=== PATIENT | male | born 1935 | race Caucasian/White ===

== ENCOUNTER 2016-07-18 10:49 | Inpatient (IN) | payer MEDICARE, OTHER ==
[~2016-07-18] VITALS: Ht 152.4 cm; Wt 68.5 kg
[~2016-07-18 10:49] MED LIST: ALBU8.5H3 INH; APIX2.5T PO; CARV6.2579 PO; FER325 PO; FURO-109 PO; LISI2.5T59 PO; METF500T4 PO; NIT4 SL; OMEP40CA6 PO; POTA10TA18 PO; SUCR1TAB56 PO
--- NOTE | 2016-07-18 11:48 | ERA ---
ER Documentation Chief Complaint Date/Time DATE: 07/18/16 TIME: 11:48 Chief Complaint SOB AND BILATERAL LEG SWELLING X 3 DAYS HPI 80-year-old male with a history of ischemic heart myopathy, ejection fraction 25 % status post AICD, congestive heart failure, coronary artery disease status post CABG, diabetes mellitus type 2, hypertension, dyslipidemia, atrial fibrillation and anemia ambulatory to the ED complaining of one-week history of increasing shortness of breath, PND, orthopnea and exertional dyspnea. Increasing lower extremity swelling but no calf pain or redness. Denies chest pain or palpitations. No abdominal pain, nausea or vomiting. Denies URI symptoms or rhinorrhea. No headache or neck pain. Denies visual changes, focal weakness or numbness. No fevers or chills. ROS All systems reviewed and are negative except as per history of present illness. Medications Home Meds Reported Medications Aspirin (Low Dose Aspirin) 81 Mg Tablet.dr, 81 MG PO DAILY, #30 TAB 07/18/16 Amiodarone Hcl* (Amiodarone Hcl*) 200 Mg Tablet, 200 MG PO BID, #60 TAB 07/18/16 Carvedilol* (Carvedilol*) 12.5 Mg Tablet, 12.5 MG PO BID, #60 TAB 07/18/16 Apixaban* (Eliquis*) 5 Mg Tablet, 5 MG PO BID, TAB 07/18/16 Nitroglycerin* (Nitrostat*) 0.4 Mg Tab.subl, 0.4 MG SL DAILY Y for CHEST PAIN, BOTTLE 05/27/16 Sucralfate* (Carafate*) 1 Gm Tab, 1 GM PO QID, TAB 05/27/16 Lisinopril* (Lisinopril*) 2.5 Mg Tablet, 2.5 MG PO DAILY, #30 TAB 05/27/16 Omeprazole* (Omeprazole*) 40 Mg Capsule.dr, 40 MG PO QAM, #30 CAP 05/27/16 Furosemide* (Lasix*) 40 Mg Tablet, 40 MG PO DAILY, TAB 10/16/15 Metformin* (Glucophage*) 500 Mg Tab, 500 MG PO BID, TAB 09/11/14 Discontinued Reported Medications Potassium Citrate* (Potassium Citrate* ER) 10 Meq Tablet.sa, 10 MEQ PO DAILY, TAB.SA 05/27/16 Discontinued Scripts Albuterol Sulfate* (Proair HFA*) 8.5 Gm Hfa.aer.ad, 2 PUFF INH Q6 for SHORTNESS OF BREATH, #1 INHALER Prov:JOY BAKER TECHN[employer]Y ARCHITECT 05/30/16 Ferrous Sulfate* (Ferrous Sulfate*) 325 Mg Tabec, 325 MG PO BID for 30 Days, TAB Prov:OLIVIAJOY TECHNOLOGY ARCHITECT 05/30/16 Apixaban* (Eliquis*) 2.5 Mg Tablet, 2.5 MG PO BID for 30 Days, TAB Prov:OLIVIAJOY TECHNOLOGY ARCHITECT 05/30/16 Carvedilol* (Carvedilol*) 6.25 Mg Tablet, 6.25 MG PO BID for 30 Days, TAB Prov:OLIVIAJOY TECHNOLOGY ARCHITECT 05/30/16 Allergies Allergies: Coded Allergies: dipyrone (Verified Allergy, Unknown, BRUISES, 07/18/16) ALLERGY FROM [place] PMhx/Soc Reviewed in chart. As per HPI. History of Surgery: Yes (Cabg, Prostate, Angiogram w/stent, {acemaker) Anesthesia Reaction: No Hx Neurological Disorder: No Hx Respiratory Disorders: Yes (asthma) Hx Cardiac Disorders: Yes (NE, NE,) Hx Psychiatric Problems: Yes (anxiety,) Hx Miscellaneous Medical Probl: No Hx Alcohol Use: No Hx Substance Use: No Hx Tobacco Use: Yes FmHx Reviwed in chart. No relevant to presenting complaint. No stroke or cancer. Physical Exam Vitals Vital Signs Date Time Temp Pulse Resp B/P Pulse Ox O2 Delivery O2 Flow Rate FiO2 07/18/16 17:00 64 25 128/59 100 Nasal Cannula 2.0 07/18/16 14:25 97.3 60 18 131/59 100 Room Air 2.0 07/18/16 13:33 60 18 119/52 100 Room Air 07/18/16 13:10 Nasal Cannula 3 07/18/16 12:24 64 18 137/61 100 Room Air 07/18/16 11:59 2.0 07/18/16 11:59 89 18 96 Nasal Cannula 2.0 07/18/16 10:56 96.9 57 20 133/61 99 Physical Exam Const: Alert, mild - moderate respiratory distress Head: Atraumatic Eyes: Normal Conjunctiva ENT: Normal External Ears, Nose and Mouth. Neck: Full range of motion.JVD Resp: VS diminished bilaterally with rales 1/3 up both lunf field and mild expiratory wheezing. Cardio: Regular rate and rhythm, no murmurs Abd: Soft, non tender, non distended. Normal bowel sounds Skin: No petechiae or rashes Back: No midline or flank tenderness Ext: 2+ pitting edema. No calf tenderness Neur: Awake and alert. No focal deficit observed. Psych: Normal Mood and Affect Result Diagram: 07/18/16 1207 07/18/16 1207 Results 24 hrs Laboratory Tests Test 07/18/16 12:07 07/18/16 16:00 Activated Partial Thromboplast Time 42.9Sec Alanine Aminotransferase (ALT/SGPT) 19IU/L Albumin 4.1g/dl Albumin/Globulin Ratio 1.36 Alkaline Phosphatase 98IU/L Anion Gap 20 Aspartate Amino Transf (AST/SGOT) 24IU/L Basophils # 0.010^3/ul Basophils % 0.6% Blood Morphology Comment Blood Urea Nitrogen 34mg/dl Calcium Level 9.1mg/dl Carbon Dioxide Level 30mmol/L Chloride Level 89mmol/L Creatinine 1.55mg/dl Direct Bilirubin 0.00mg/dl Eosinophils # 0.110^3/ul Eosinophils % 1.4% Globulin 3.00g/dl Glucose Level 122mg/dl Hematocrit 42.6% Hemoglobin 13.5g/dl INR International Normalized Ratio 1.90 Indirect Bilirubin 1.1mg/dl Lymphocytes # 0.810^3/ul Lymphocytes % 13.1% Mean Corpuscular Hemoglobin 25.8pg Mean Corpuscular Hemoglobin Concent 31.6g/dl Mean Corpuscular Volume 81.6fl Mean Platelet Volume 8.6fl Monocytes # 0.610^3/ul Monocytes % 10.7% Neutrophils # 4.310^3/ul Neutrophils % 74.2% Nucleated Red Blood Cells # 0.010^3/ul Nucleated Red Blood Cells % 0.0/100WBC Platelet Count 29893^3/UL Potassium Level 3.8mmol/L Prothrombin Time 22.0Sec Prothrombin Time Ratio 1.7 Red Blood Count 5.2210^6/ul Red Cell Distribution Width 23.0% Sodium Level 135mmol/L Total Bilirubin 1.1mg/dl Total Protein 7.1g/dl Troponin I 0.038ng/ml 0.036ng/ml White Blood Count 5.810^3/ul Creatine Kinase 79IU/L Creatine Kinase Index 2.8 Creatinine Kinase MB (Mass) 2.19ng/ml Current Medications Medications (Trade) Dose Ordered Sig/Jeff Route PRN Reason Start Time Stop Time Status Last Admin Dose Admin Albuterol (Proventil 0.5% (Neb)) 10 mg ONCE STAT INH 07/18/16 11:50 07/18/16 11:52 DC 07/18/16 11:58 Nitroglycerin (Nitroglycerin 2% Oint) 1 inch ONCE STAT TD 07/18/16 11:50 07/18/16 11:52 DC 07/18/16 12:25 Furosemide (Lasix) 40 mg ONCE STAT IV 07/18/16 11:50 07/18/16 11:52 DC 07/18/16 12:25 Albuterol (Proventil 0.5% (Neb)) 2.5 mg STK-MED ONCE .ROUTE 07/18/16 11:53 07/18/16 11:54 DC Ondansetron HCl (Zofran Inj) 4 mg ER BRIDGE PRN IV NAUSEA AND/OR VOMITING 07/18/16 14:30 07/19/16 14:29 Acetaminophen (Tylenol Tab) 650 mg ER BRIDGE PRN PO MILD PAIN/FEVER 07/18/16 14:30 07/19/16 14:29 Amiodarone HCl (Cordarone) 200 mg BID PO 07/18/16 21:00 Apixaban (Eliquis) 2.5 mg BID PO 07/18/16 21:00 Aspirin (Halfprin) 81 mg DAILY PO 07/19/16 09:00 Carvedilol (Coreg) 12.5 mg BID PO 07/18/16 21:00 Lisinopril (Zestril) 2.5 mg DAILY PO 07/19/16 09:00 Metformin HCl (Glucophage) 500 mg BID WITH MEALS PO 07/18/16 18:00 Nitroglycerin (Nitroglycerin (Sl Tab) 0.4 Mg) 1 tab DAILY PRN SL CHEST PAIN 07/18/16 15:30 Sucralfate (Carafate) 1 gm QID PO 07/18/16 17:00 Pantoprazole (Protonix Tab) 40 mg DAILY@06 PO 07/19/16 06:00 IV Flush (NS 3 ml) 3 ml PER PROTOCOL IV 07/18/16 15:30 Ondansetron HCl (Zofran Inj) 4 mg Q6H PRN IV NAUSEA AND/OR VOMITING 07/18/16 15:30 Acetaminophen (Tylenol Tab) 650 mg Q6H PRN PO PAIN LEVEL 1-3 OR FEVER 07/18/16 15:30 Acetaminophen (Tylenol Supp) 650 mg Q6H PRN [place] PAIN LEVEL 1-3 OR FEVER 07/18/16 15:30 Acetaminophen/ Hydrocodone Bitart ([place] (5/325)) 1 tab Q6H PRN PO MODERATE PAIN LEVEL 4-6 07/18/16 15:30 Acetaminophen/ Hydrocodone Bitart ([place] (5/325)) 2 tab Q6H PRN PO SEVERE PAIN LEVEL 7-10 07/18/16 15:30 Morphine Sulfate (morphine) 2 mg Q4H PRN IV SEVERE PAIN LEVEL 7-10 07/18/16 15:30 Docusate Sodium (Colace) 100 mg Q12H PRN PO CONSTIPATION 07/18/16 15:30 Magnesium Hydroxide (Milk Of Mag) 30 ml DAILY PRN PO CONSTIPATION 07/18/16 15:30 Bisacodyl (Dulcolax Supp) 10 mg DAILY PRN [place] CONSTIPATION 07/18/16 15:30 Insulin Aspart (Novolog Insulin Pen) NOVOLOG *MILD* ALGORITHM WITH MEALS BEDTIME SC 07/18/16 18:00 Miscellaneous Information (* Miscellaneous Pharmacy Order) HYPOGLYCEMIA PROTOCOL w... ONCE ONCE XX 07/18/16 17:00 07/18/16 17:07 DC Miscellaneous Information (* Miscellaneous Pharmacy Order) Discontinue Glyburide, Glipizide,... ONCE ONCE XX 07/18/16 17:00 07/18/16 17:09 DC Miscellaneous Information (* Miscellaneous Pharmacy Order) Discontinue all previ... ONCE ONCE XX 07/18/16 17:00 07/18/16 17:09 DC Miscellaneous Information 1 ea NOTE XX 07/18/16 17:30 Glucose (Glutose) 15 gm Q15M PRN PO DECREASED GLUCOSE 07/18/16 17:30 Glucose (Glutose) 22.5 gm Q15M PRN PO DECREASED GLUCOSE 07/18/16 17:30 Dextrose (D50w Syringe) 25 ml Q15M PRN IV DECREASED GLUCOSE 07/18/16 17:30 Dextrose (D50w Syringe) 50 ml Q15M PRN IV DECREASED GLUCOSE 07/18/16 17:30 Glucagon (Glucagen) 1 mg Q15M PRN IM DECREASED GLUCOSE 07/18/16 17:30 Glucose (Glutose) 15 gm Q15M PRN BUCCAL DECREASED GLUCOSE 07/18/16 17:30 RHYTHM STRIP INTERPRETATION: Time: 12:10. Paced rhythm. Rate 60. Indication : Shortness of breath. EKG: TIME: 12:05 electronic ventricular paced rhythm. Rate 60. No acute ST segment elevation or depression. No ectopy. EP Interpretation: Abnormal EKG. IMAGING: PROCEDURE: XR Chest. CLINICAL INDICATION: Shortness of breath. TECHNIQUE: Single frontal view of the chest was obtained COMPARISON: Chest x-ray 05/27/2016 07:26 p.m. FINDINGS: Heart is enlarged. Mediastinotomy is then performed. There is a cardiac device implanted over the upper left chest wall with electrode leads projecting at the level of the right ventricle. No pleural effusion noted. The pulmonary vasculature is increased. There are increased interstitial markings in the bases of the lungs which are stable. Small pleural effusions are not excluded. IMPRESSION: 1. Status post median sternotomy. 2. Cardiomegaly. 3. Equilibration of the pulmonary vasculature with small pleural effusions and interstitial edema suspicious for mild CHF. 4. Atherosclerosis of the aortic arch. RPTAT:AAJJ Physician Joselyn Date Time Electronically viewed and signed by Physician Joselyn on 07/18/2016 12:06 JM/ Procedures/MDM DOCUMENTS REVIEWED: ED nurse, prior ED, prior records REEXAMINATION/REEVALUATION: Time: 13:50. Doing well. Feels better. Vital signs stable. MEDICAL DECISION MAKIN-year-old male with a history of ischemic heart myopathy, ejection fraction 25% status post AICD, congestive heart failure, coronary artery disease status post CABG, diabetes mellitus type 2, hypertension , dyslipidemia, atrial fibrillation and anemia ambulatory to the ED complaining of one-week history of increasing shortness of breath, PND, orthopnea and exertional dyspnea. Patient consistent with acute exacerbation of chronic systolic congestive heart failure. No chest pain, acute ischemic EKG changes, elevated troponin or other signs of acute coronary syndrome. Chronic kidney disease. Pulmonary embolism considered but unlikely especially as the patient is ready anticoagulated. Improved with nebulized beta agonist, diuretics and preload reduction. Plan: Admit to telemetry for diuresis, further evaluation and management. Counseled patient and family regarding diagnosis, diagnostic results and plan for admission. CALLS/CONSULTS: Time 14:10, Dr. Jacobs, Recommends admission to telemetry. PATIENT CARE TRANSITIONED: Time: 14:15, Dr. Jacobs. Critical Care Time: 35 minutes Treatments/Evaluations: Close monitoring and treatment of unstable vital signs, cardiorespiratory, and neurologic status, while maintaining tight balance of fluid, respiratory, and cardiac interventions. This time includes discussing the case with the patient and the patient's family. This time does not include all procedures stated elsewhere in this record. This time also includes reviewing old records, labs and radiological studies. This time includes examining and re-examining the patient. Additionally, this time also includes arranging care with admitting and consulting physicians. Departure Diagnosis: Primary Impression: CHF (congestive heart failure) Qualified Code: I50.23 - Acute on chronic systolic congestive heart failure Additional Impressions: Diabetes mellitus type 2 in obese Hypertension Qualified Code: I10 - Essential hypertension History of coronary artery bypass graft AICD (automatic cardioverter/defibrillator) present Ischemic cardiomyopathy CKD (chronic kidney disease) Qualified Code: N18.9 - CKD (chronic kidney disease), unspecified stage Condition: Serious BRETT SMITH MD Jul 18, 2016 11:48
[2016-07-18] MEDS ORDERED: ALBUTEROL 0.5% (NEB) 2.5 MG/0.5 ML AMP INH STA (11:50)
[2016-07-18] MEDS ORDERED: FUROSEMIDE 40 MG INJ IV STA (11:50)
[2016-07-18] MEDS ORDERED: NITROGLYCERIN 2% 1 GM OINT PKT TD STA (11:50)
[2016-07-18] MEDS ORDERED: ALBUTEROL 0.5% (NEB) 2.5 MG/0.5 ML AMP ONE (11:53)
--- NOTE | 2016-07-18 12:07 | RADRPT ---
PROCEDURE: XR Chest. CLINICAL INDICATION: Shortness of breath. TECHNIQUE: Single frontal view of the chest was obtained COMPARISON: Chest x-ray 05/27/2016 07:26 p.m. FINDINGS: Heart is enlarged. Mediastinotomy is then performed. There is a cardiac device implanted over the upper left chest wall with electrode leads projecting at the level of the right ventricle. No pleur al effusion noted. The pulmonary vasculature is increased. There are increased interstitial markin gs in the bases of the lungs which are stable. Small pleural effusions are not excluded. IMPRESSION: 1. Status post median sternotomy. 2. Cardiomegaly. 3. Equilibration of the pulmonary vasculature with small pleural effusions and interstitial edema s uspicious for mild CHF. 4. Atherosclerosis of the aortic arch. RPTAT:AAJJ Physician Joselyn Date Time Electronically viewed and signed by Nikhil Olguin Physician on 07/18/2016 12:06 TIMOTHY/
[2016-07-18] MEDS ORDERED: APIX5TAB PO (12:16)
[2016-07-18 12:17] LABS: BASOPHILS % 0.6 % (0.0-2.0); EOSINOPHILS # 0.1 10^3/ul (0.0-0.5); EOSINOPHILS % 1.4 % (0.0-7.0); HEMATOCRIT 42.6 % (42.0-52.0); HEMOGLOBIN 13.5 g/dl (14.0-18.0); LYMPHOCYTES # 0.8 10^3/ul (0.8-2.9); LYMPHOCYTES % 13.1 % (15.0-51.0); MEAN CORPUSCULAR HEMOGLOBIN 25.8 pg (29.0-33.0); MEAN CORPUSCULAR HGB CONC 31.6 g/dl (32.0-37.0); MEAN CORPUSCULAR VOLUME 81.6 fl (82.0-101.0); MEAN PLATELET VOLUME 8.6 fl (7.4-10.4); MONOCYTE # 0.6 10^3/ul (0.3-0.9); MONOCYTES % 10.7 % (0.0-11.0); NEUTROPHIL # 4.3 10^3/ul (1.6-7.5); NEUTROPHILS % 74.2 % (39.0-77.0); PLATELET COUNT 288 10^3/UL (140-440); RED BLOOD COUNT 5.22 10^6/ul (4.70-6.10); UNCORRECTED WBC 5.8 10^3/ul (4.8-10.8); WHITE BLOOD COUNT 5.8 10^3/ul (4.8-10.8)
[2016-07-18] MEDS ORDERED: CARV12.579 PO (12:17)
[2016-07-18] MEDS ORDERED: AMIO200T2 PO (12:18)
[2016-07-18] MEDS ORDERED: ASPI-664 PO (12:20)
[2016-07-18 12:21] LABS: CONDITION 1; LH ANALYZER COMMENTS 1
[2016-07-18 12:34] LABS: INR 1.9; PT RATIO 1.7
[2016-07-18 12:35] LABS: ALBUMIN 4.1 g/dl (3.3-4.9); POTASSIUM 3.8 mmol/L (3.5-5.1)
[2016-07-18 12:36] LABS: PARTIAL THROMBOPLASTIN TIME 42.9 Sec (25.0-35.0)
[2016-07-18 12:37] LABS: CREATININE 1.55 mg/dl (0.61-1.24)
[2016-07-18 12:38] LABS: ALBUMIN/GLOBULIN RATIO 1.36; BILIRUBIN,INDIRECT 1.1 mg/dl (0-1.1); BILIRUBIN,TOTAL 1.1 mg/dl (0.2-1.3); TOTAL PROTEIN 7.1 g/dl (6.1-8.1)
[2016-07-18 12:39] LABS: CALCIUM 9.1 mg/dl (8.4-10.2)
[2016-07-18 12:49] LABS: TROPONIN-I 0.038 ng/ml (0.00-0.12)
[2016-07-18] MEDS ORDERED: ONDANSETRON 4 MG INJ IV PRN (14:30)
[2016-07-18] MEDS ORDERED: ACETAMINOPHEN 325 MG TAB PO PRN (14:30)
[2016-07-18] MEDS ORDERED: NITROGLYCERIN (SL) 0.4 MG TAB SL PRN (15:30)
[2016-07-18] MEDS ORDERED: ACETAMINOPHEN 650 MG SUPP PR PRN (15:30)
[2016-07-18] MEDS ORDERED: BISACODYL 10 MG SUPP PR PRN (15:30)
[2016-07-18] MEDS ORDERED: NACL 0.9% 3 ML SYG IV SCH (15:30)
[2016-07-18] MEDS ORDERED: HYDROCODONE/APAP (5/325) TAB PO PRN ×2 (15:30)
--- NOTE | 2016-07-18 16:51 | HP ---
Date/Time of Note Date/Time of Note DATE: 07/18/16 TIME: 16:41 Assessment/Plan VTE Prophylaxis VTE Prophylaxis Intervention: SCD's Assessment/Plan Chief Complaint/Hosp Course Assessment and plan 1. Acute on chronic congestive heart failure. Patient with known systolic dysfunction. Continue on diuresis. Will get cardiology consultation. 2. 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 Patient does have known AICD in place. Continue optimization with cardiovascular medications and beta-rios. Will hold off COCO inhibitor for now due to renal insufficiency 3. Type 2 diabetes. Follow-up on A1c. Continue insulin regimen . 4. Atrial fibrillation. Will resume patient's amiodarone as well as his Eliquis 5. History of CAD status post CABG. Will resume patient's antiplatelet medications 6. Acute on likely chronic kidney disease. Will get [employer] operations specialist to follow. Monitor renal panel. Renally dose medications Admission process 40 minutes Discussed plan of care with Dr. Jacobs Problems: HPI/ROS Admit Date/Time Admit Date/Time Hx of Present Illness This is an 80-year-old male with history of respiratory failure, congestive heart failure with systolic dysfunction, ischemic cardiopathy with ejection fraction of 25%, CKD, coagulopathy, lactic acidosis, type 2 diabetes, atrial fibrillation, iron deficiency, CAD status post CABG, pulmonary hypertension, who was brought to [facility] due to reports of increased shortness of breath. According to the patient had been having increased shortness of breath for 3 days duration with also associated swelling his bilateral lower extremities. His breathing had become so labored that even when he lied down he had some shortness of breath. He also had dyspnea on exertion. He denied any fevers or any kind of sick contacts. He denies any chest pain. He denied any other associated symptoms. To come to [facility] for further evaluation. Of note patient was recently hospitalized in April 2016 for similar issue. He does follow-up with his special education tutor Dr. Kevon Betts as outpatient. Does report compliance to his medications. His chest x-ray did show cardiomegaly as well as equilibration of the pulmonary vasculature with small pleural effusions and interstitial edema suspicious for mild CHF. He did have initial troponin which was negative. He also had some noted renal insufficiency with BUN of 34 and creatinine at 1.55. Patient remains afebrile with blood pressure stable. He still reports having some shortness of breath. We will evaluate him for the aforementioned issues ROS 12 point review of systems obtained entirely negative except as mentioned in history of present illness PMH/Family/Social Past Medical History Medical/surgical history respiratory failure, congestive heart failure with systolic dysfunction, ischemic cardiopathy with ejection fraction of 25%, CKD, coagulopathy, lactic acidosis, type 2 diabetes, atrial fibrillation, iron deficiency, CAD status post CABG, pulmonary hypertension, Past Surgical History Past Surgical Hx: coronary bypass surgery Family History Significant Family History: no pertinent family hx Social History Alcohol Use: none Smoking Status: Never smoker Drug Use: none Exam/Review of Systems Vital Signs Vitals Vital Signs Date Time Temp Pulse Resp B/P Pulse Ox O2 Delivery O2 Flow Rate FiO2 07/18/16 14:25 97.3 60 18 131/59 100 Room Air 2.0 Exam Exam General: In some mild distress. Reported with shortness of breath Eyes: [pupils equal round, Anicteric sclera] Neck: Supple nontender, no JVD Cardiac: [S1, S2 auscultated, regular rhythm and rate] Pulmonary: Coarse lung sounds auscultated bilaterally with diminished lung bases GI: [Abdomen soft nontender nondistended, bowel sounds active] Extremities: Edema bilateral lower extremities +2 Skin: [Clean dry and intact] Neurologic: [Alert to person place and time and situation] Labs Result Diagram: 07/18/16 1207 07/18/16 1207 Medications Medications Current Medications Amiodarone HCl (Cordarone) 200 mg BID PO ; Start 07/18/16 at 21:00 Apixaban (Eliquis) 2.5 mg BID PO ; Start 07/18/16 at 21:00 Aspirin (Halfprin) 81 mg DAILY PO ; Start 07/19/16 at 09:00 Carvedilol (Coreg) 12.5 mg BID PO ; Start 07/18/16 at 21:00 Lisinopril (Zestril) 2.5 mg DAILY PO ; Start 07/19/16 at 09:00 Nitroglycerin (Nitroglycerin (Sl Tab) 0.4 Mg) 1 tab DAILY PRN SL CHEST PAIN; Start 07/18/16 at 15:30 Sucralfate (Carafate) 1 gm QID PO ; Start 07/18/16 at 17:00 Pantoprazole (Protonix Tab) 40 mg DAILY@06 PO ; Start 07/19/16 at 06:00 Ondansetron HCl (Zofran Inj) 4 mg Q6H PRN IV NAUSEA AND/OR VOMITING; Start at 15:30 Acetaminophen (Tylenol Tab) 650 mg Q6H PRN PO PAIN LEVEL 1-3 OR FEVER; Start at 15:30 Acetaminophen (Tylenol Supp) 650 mg Q6H PRN [place] PAIN LEVEL 1-3 OR FEVER; Start 07/18/16 at 15:30 Acetaminophen/ Hydrocodone Bitart ([place] (5/325)) 1 tab Q6H PRN PO MODERATE PAIN LEVEL 4-6; Start 07/18/16 at 15:30 Acetaminophen/ Hydrocodone Bitart ([place] (5/325)) 2 tab Q6H PRN PO SEVERE PAIN LEVEL 7-10; Start 07/18/16 at 15:30 Morphine Sulfate (morphine) 2 mg Q4H PRN IV SEVERE PAIN LEVEL 7-10; Start 07/18 at 15:30 Docusate Sodium (Colace) 100 mg Q12H PRN PO CONSTIPATION; Start 07/18/16 at 15: 30 Magnesium Hydroxide (Milk Of Mag) 30 ml DAILY PRN PO CONSTIPATION; Start at 15:30 Bisacodyl (Dulcolax Supp) 10 mg DAILY PRN [place] CONSTIPATION; Start 07/18/16 at 15 :30 WILLIAM WILD Jul 18, 2016 16:51
[2016-07-18] MEDS: SUCRALFATE 1 GM TAB PO SCH ×2 (17:00→22:00)
[2016-07-18 17:11] LABS: CK-MB 2.19 ng/ml (0.0-2.4)
[2016-07-18 17:13] LABS: TROPONIN-I 0.036 ng/ml (0.00-0.12)
[2016-07-18] MEDS ORDERED: GLUCAGON 1 MG INJ IM PRN (17:30)
[2016-07-18] MEDS ORDERED: GLUCOSE GEL 15 GRAM TUBE PO PRN ×2 (17:30)
[2016-07-18] MEDS ORDERED: GLUCOSE GEL 15 GRAM TUBE BUCCAL PRN (17:30)
[2016-07-18] MEDS ORDERED: DEXTROSE 50% 50 ML SYRINGE IV PRN ×2 (17:30)
[2016-07-18] MEDS: metFORMIN 500 MG TAB PO SCH (18:56)
[2016-07-18] MEDS: INSULIN ASPART [NOVOLOG] 3 ML PEN SC SCH ×2 (18:58→21:00)
[2016-07-18 19:30] VITALS: TEMP 97.4
[2016-07-18] MEDS ORDERED: FUROSEMIDE 40 MG INJ IV ONE (19:30)
[2016-07-18] MEDS ORDERED: ONDANSETRON 4 MG INJ IV STA (20:20)
[2016-07-18] MEDS ORDERED: morphine 4 MG/ML VIAL IV STA (20:20)
[2016-07-18] MEDS: morphine 2 MG INJ IV PRN (20:25)
[2016-07-18 21:00] VITALS: PULSE 60
[2016-07-18 21:41] VITALS: Ht 152.4 cm; Wt 68.5 kg
[2016-07-18] MEDS: AMIODARONE 200 MG TAB PO SCH (22:00)
[2016-07-18] MEDS: APIXABAN 5 MG TABLET PO SCH (22:01)
[2016-07-18 22:54] LABS: TROPONIN-I 0.069 ng/ml (0.00-0.12)
[2016-07-18 23:01] LABS: CK-MB 1.86 ng/ml (0.0-2.4)
[2016-07-18] MEDS: GUAIFENESIN/CODEINE 5ML CUP PO PRN (23:55)
[2016-07-18] MEDS: ZOLPIDEM 5 MG TAB PO PRN (23:55)
[2016-07-19] VITALS (10 sets, daily range): BP systolic 112–133; BP diastolic 50–63; PULSE 60–62; RESP 18
[2016-07-19 02:01] LABS: ADD UMIC YES; URINE BILIRUBIN (Dip) NEGATIVE (NEGATIVE); URINE BLOOD (Dip) NEGATIVE (NEGATIVE); URINE COLOR LT. YELLOW (YELLOW); URINE GLUCOSE (Dip) NEGATIVE (NEGATIVE); URINE KETONES (Dip) NEGATIVE (NEGATIVE); URINE LEUKOCYTE ESTERASE (Dip) NEGATIVE (NEGATIVE); URINE NITRITE (Dip) NEGATIVE (NEGATIVE); URINE TOTAL PROTEIN (Dip) 1+ (NEGATIVE); URINE UROBILINOGEN (Dip) 1.0 E.U./dL (0.1-1.0)
[2016-07-19 02:48] LABS: URINE RBCS 0-2 /HPF (0)
[2016-07-19 02:49] LABS: MUCUS,URINE FEW
[2016-07-19] MEDS: PANTOPRAZOLE (EC) 40 MG TAB PO SCH (06:46)
[2016-07-19 06:56] LABS: BASOPHILS % 0.5 % (0.0-2.0); EOSINOPHILS % 0.7 % (0.0-7.0); HEMATOCRIT 37.6 % (42.0-52.0); HEMOGLOBIN 12.1 g/dl (14.0-18.0); LYMPHOCYTES # 0.7 10^3/ul (0.8-2.9); LYMPHOCYTES % 12.9 % (15.0-51.0); MEAN CORPUSCULAR HEMOGLOBIN 26.1 pg (29.0-33.0); MEAN CORPUSCULAR HGB CONC 32.2 g/dl (32.0-37.0); MEAN CORPUSCULAR VOLUME 81.1 fl (82.0-101.0); MEAN PLATELET VOLUME 8.6 fl (7.4-10.4); MONOCYTE # 0.5 10^3/ul (0.3-0.9); MONOCYTES % 9.9 % (0.0-11.0); NEUTROPHIL # 4.2 10^3/ul (1.6-7.5); PLATELET COUNT 245 10^3/UL (140-440); RED BLOOD COUNT 4.63 10^6/ul (4.70-6.10); UNCORRECTED WBC 5.5 10^3/ul (4.8-10.8); WHITE BLOOD COUNT 5.5 10^3/ul (4.8-10.8)
[2016-07-19 07:03] LABS: ALBUMIN 3.6 g/dl (3.3-4.9)
[2016-07-19 07:04] LABS: POTASSIUM 3.7 mmol/L (3.5-5.1)
[2016-07-19 07:06] LABS: ALBUMIN/GLOBULIN RATIO 1.5; BILIRUBIN,INDIRECT 0.9 mg/dl (0-1.1); BILIRUBIN,TOTAL 0.9 mg/dl (0.2-1.3); CREATININE 1.58 mg/dl (0.61-1.24)
[2016-07-19 07:07] LABS: CALCIUM 8.5 mg/dl (8.4-10.2); MAGNESIUM 1.2 mg/dl (1.7-2.5); PHOSPHORUS 4.8 mg/dl (2.5-4.9)
[2016-07-19 07:09] LABS: CHOL/HDL RATIO 2.6 RATIO
[2016-07-19 07:18] LABS: CONDITION 1; LH ANALYZER COMMENTS 1
[2016-07-19] MEDS: INSULIN ASPART [NOVOLOG] 3 ML PEN SC SCH ×4 (07:55→21:00)
[2016-07-19] MEDS ORDERED: FUROSEMIDE 20 MG INJ IV SCH (09:00)
--- NOTE | 2016-07-19 09:06 | QN ---
Documentation Comment renal consult chart reviewed full note to follow YANIRA HART MD Jul 19, 2016 09:06
[2016-07-19] MEDS: APIXABAN 5 MG TABLET PO SCH ×2 (09:33→21:05)
[2016-07-19] MEDS: ASPIRIN (EC) 81 MG TAB PO SCH (09:33)
[2016-07-19] MEDS: SUCRALFATE 1 GM TAB PO SCH ×4 (09:33→21:10)
[2016-07-19] MEDS: LISINOPRIL 5 MG TAB PO SCH (09:33)
[2016-07-19] MEDS: metFORMIN 500 MG TAB PO SCH ×2 (09:33→17:31)
[2016-07-19] MEDS: AMIODARONE 200 MG TAB PO SCH (09:34)
[2016-07-19] MEDS ORDERED: MAGNESIUM SULFATE 4 GM/100 ML 100 ML IVPB ONE (10:45)
--- NOTE | 2016-07-19 14:21 | CONS ---
DATE OF ADMISSION: 07/18/2016 DATE OF CONSULTATION: 07/19/2016 REASON FOR CONSULTATION: Congestive heart failure, cardiomyopathy, decreased left ventricular ejection fraction. REQUESTING PHYSICIAN: Dr. Rivera from the hospitalist service and nurse practitioner Wil Quezada. HISTORY OF PRESENT ILLNESS: Mr. Cazares is an 80-year-old male well known to myself as a primary office patient, with history of cardiomyopathy with severely depressed left ventricular ejection fraction, last known to be approximately 20% to 25% by echo 05/27/2016, coronary artery bypass graft 2010 , AICD implant, atrial fibrillation, who presents with shortness of breath. Upon arrival, temperature 96.9, blood pressure 132/61, pulse 57, respiratory rate 20, saturating 99%. The patient's labs revealed a white count of 5.8, hemoglobin 13.5, platelet count of 288, a sodium of 135, potassium 3.8, creatinine 1.55, BUN of 34. Troponin negative. INR of 1.9. UA negative. The patient underwent a chest x-ray revealing cardiomegaly, small pleural effusions , mild congestive heart failure. The patient's electrocardiogram revealed ventricular paced rhythm at a rate of 60 with probable underlying atrial fibrillation, no discernible P-waves. The patient was subsequently admitted to the floor, and since admit to the floor, has had stable vital signs. Patient has been monitored on telemetry revealing ventricular pacing, no significant arrhythmias. Patient has been placed on Lasix 20 mg IV daily with afterload reduction with Zestril and ongoing carvedilol, Continuing of his baseline apixaban, amiodarone, and carvedilol. ALLERGIES: NKDA. SOCIAL HISTORY: No tobacco, ETOH, or illicit drug use. FAMILY HISTORY: No sudden cardiac or early CAD. REVIEW OF SYSTEMS: As above in HPI. CONSTITUTIONAL: No fevers, chills. PULMONARY: Shortness of breath. CARDIOVASCULAR: Congestive heart failure. GASTROINTESTINAL: No vomiting. GENITOURINARY: No hematuria. MUSCULOSKELETAL: Degenerative joint disease. PSYCHIATRIC: The patient denies depression. NEUROLOGIC: No documented history of CVA. ENDOCRINE: No documented history of diabetes mellitus. PHYSICAL EXAMINATION: VITAL SIGNS: Temperature 98.2, blood pressure 119/57, pulse 60, respirations 18 , saturating 99%. GENERAL: The patient is alert, awake, complaining of shortness of breath. NECK: JVP approximately 9 cm of water. CHEST: Fair movement throughout with mildly decreased breath sounds at bases bilaterally. HEART: Regular rate and rhythm. Normal S1, S2. Laterally displaced PMI. ABDOMEN: Positive bowel sounds, soft. EXTREMITIES: Trace edema at the ankles bilaterally, 1+ pulses bilaterally posterior tibial. LABORATORIES: As above in HPI, with most recently from today, sodium 135, potassium 3.7, creatinine 1.58, BUN 38, white blood cell count of 5.5, hemoglobin of 12.1, platelet count of 245. Troponin negative x2. Urine negative. IMAGING STUDIES: As above in HPI. No further imaging studies for my review at this time. ECG: As above in HPI. No further electrocardiograms for my review at this time. IMPRESSION: 1. Congestive heart failure exacerbation, systolic, acute on chronic. 2. Shortness of breath secondary to #1. 3. History of coronary artery bypass graft surgery. Assess for acute coronary syndrome. 4. Abnormal electrocardiogram . Assess for acute coronary syndrome. 5. History of paroxysmal atrial fibrillation, on apixaban and amiodarone. 6. Acute renal failure. 7. Hypertension, under reasonable control. 8. Anemia, mild. 9. Coagulopathy secondary to apixaban. RECOMMENDATIONS: 1. At this time would maintain patient on telemetry monitoring to follow rhythm and rate control closely. 2. Complete the patient's rule out for myocardial infarction. Should patient' s constellation of symptoms are not due to an acute coronary syndrome, such as acute myocardial infarction, will send follow-up troponin. 3. Continue patient's current Zestril and continue the patient's carvedilol, but will decrease dose to allow patient to better tolerate. 4. Continue the patient's current amiodarone, but will likely decrease to daily dosing, and continue the patient's apixaban for prevention of thrombolic events in the setting of atrial fibrillation. 5. Continue the patient's Lasix diuresis, following strict I's and O's and creatinine to grade diuresis closely. 6. Follow the patient's creatinine closely. 7. Continue the patient's baby aspirin at this time. Follow hemoglobin closely. 8. Consider holding metformin in the setting of renal failure. Thank you for allowing me to take part in the care of this patient. I will continue to follow along very closely with you, with further recommendations being made as patient progresses through his inpatient hospital clinical course. Dictated By: POLI ONOFRE/SHAHANA Conf#: [id number] DID#: [id number] CC: WIL QUEZADA NP; THERESA RIVERA;*EndCC* MTDD
--- NOTE | 2016-07-19 14:35 | PN ---
Date/Time of Note Date/Time of Note DATE: 07/19/16 TIME: 14:32 Assessment/Plan VTE Prophylaxis VTE Prophylaxis Intervention: SCD's, other (eliquis) Lines/Catheters IV [facility]ter [facility] (from [facility]): Saline Lock Urinary Cath still in place: No Assessment/Plan Chief Complaint/Hosp Course Assessment and plan 1. Acute on chronic congestive heart failure. Patient with known systolic dysfunction. Continue on diuresis. Continue with cardiology recommendations 2. 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 Patient does have known AICD in place. Continue optimization with cardiovascular medications and beta-rios. 3. Type 2 diabetes. Follow-up on A1c. Continue insulin regimen . 4. Atrial fibrillation. Will resume patient's amiodarone as well as his Eliquis 5. History of CAD status post CABG. Will resume patient's antiplatelet medications 6. Acute on likely chronic kidney disease. Monitor renal panel. Continue with nephrology recommendations. Avoid nephrotoxic medications as possible Disposition and plan: Await clinical improvement of respiratory status. Monitor renal panel. Continue inpatient monitoring. Physical therapy follow Discussed plan of care with Dr. Jacobs Problems: Subjective 24 Hr Interval Summary Free Text/Dictation Reports little better breathing at this time. Exam/Review of Systems Vital Signs Vitals Vital Signs Date Time Temp Pulse Resp B/P Pulse Ox O2 Delivery O2 Flow Rate FiO2 07/19/16 12:06 62 07/19/16 11:24 98.2 18 119/57 99 07/19/16 08:00 Nasal Cannula 2.0 Intake and Output 07/18/16 07/18/16 07/19/16 14:59 22:59 06:59 Intake Total 200 ml Output Total 150 ml Balance 50 ml Exam General: No apparent distress. Reports better breathing Eyes: pupils equal round, Anicteric sclera Neck: Supple nontender, no JVD Cardiac: S1, S2 auscultated, regular rhythm and rate Pulmonary: Coarse lung sounds auscultated bilaterally with diminished lung bases GI: Abdomen soft nontender nondistended, bowel sounds active Extremities: Edema bilateral lower extremities +2 Skin: Clean dry and intact Neurologic: Alert to person place and time and situation Results Result Diagram: 07/19/16 0518 07/19/16 0518 Results 24 hrs Laboratory Tests Test 07/18/16 16:00 07/18/16 18:50 07/18/16 21:25 07/18/16 22:15 Creatine Kinase 79 72 Creatine Kinase Index 2.8 2.6 Creatinine Kinase MB (Mass) 2.19 1.86 Troponin I 0.036 0.069 Bedside Glucose 166 136 Test 07/19/16 00:18 07/19/16 05:18 07/19/16 07:37 07/19/16 11:31 Urine Protein/Creatinine Ratio Urine Random Creatinine 57.63 Urine Total Protein Alanine Aminotransferase (ALT/SGPT) 25 Albumin 3.6 Albumin/Globulin Ratio 1.50 Alkaline Phosphatase 82 Anion Gap 17 H Aspartate Amino Transf (AST/SGOT) 24 Basophils # 0.0 Basophils % 0.5 Blood Morphology Comment Blood Urea Nitrogen 38 H Calcium Level 8.5 Carbon Dioxide Level 31 Chloride Level 91 L Cholesterol Level 76 L Cholesterol/HDL Ratio 2.6 Creatinine 1.58 H Direct Bilirubin 0.00 Eosinophils # 0.0 Eosinophils % 0.7 Free Thyroxine Index 3.26 Globulin 2.40 Glucose Level 91 HDL Cholesterol 29 L Hematocrit 37.6 L Hemoglobin 12.1 L Hemoglobin A1c 5.9 Indirect Bilirubin 0.9 LDL Cholesterol, Calculated 34 Lymphocytes # 0.7 L Lymphocytes % 12.9 L Magnesium Level 1.2 L Mean Corpuscular Hemoglobin 26.1 L Mean Corpuscular Hemoglobin Concent 32.2 Mean Corpuscular Volume 81.1 L Mean Platelet Volume 8.6 Monocytes # 0.5 Monocytes % 9.9 Neutrophils # 4.2 Neutrophils % 76.0 Nucleated Red Blood Cells # 0.0 Nucleated Red Blood Cells % 0.0 Phosphorus Level 4.8 Platelet Count 245 Potassium Level 3.7 Red Blood Count 4.63 L Red Cell Distribution Width 23.0 H Sodium Level 135 Thyroid Stimulating Hormone (TSH) 10.000 H Thyroxine (T4) 6.8 Total Bilirubin 0.9 Total Protein 6.0 #L Triglycerides Level 63 Triiodothyronine (T3) Uptake 48.0 H White Blood Count 5.5 Bedside Glucose 94 101 Medications Medications Current Medications Apixaban (Eliquis) 2.5 mg BID PO Last administered on 07/19/16 09:33; Admin Dose 2.5 MG; Start 07/18/16 at 21:00 Aspirin (Halfprin) 81 mg DAILY PO Last administered on 07/19/16 09:33; Admin Dose 81 MG; Start 07/19/16 at 09:00 Lisinopril (Zestril) 2.5 mg DAILY PO Last administered on 07/19/16 09:33; Admin Dose 2.5 MG; Start 07/19/16 at 09:00 Nitroglycerin (Nitroglycerin (Sl Tab) 0.4 Mg) 1 tab DAILY PRN SL CHEST PAIN; Start 07/18/16 at 15:30 Sucralfate (Carafate) 1 gm QID PO Last administered on 07/19/16 13:33; Admin Dose 1 GM; Start 07/18/16 at 17:00 Pantoprazole (Protonix Tab) 40 mg DAILY@06 PO Last administered on 07/19/16 06 :46; Admin Dose 40 MG; Start 07/19/16 at 06:00 Ondansetron HCl (Zofran Inj) 4 mg Q6H PRN IV NAUSEA AND/OR VOMITING; Start at 15:30 Acetaminophen (Tylenol Tab) 650 mg Q6H PRN PO PAIN LEVEL 1-3 OR FEVER; Start at 15:30 Acetaminophen (Tylenol Supp) 650 mg Q6H PRN [place] PAIN LEVEL 1-3 OR FEVER; Start 07/18/16 at 15:30 Acetaminophen/ Hydrocodone Bitart ([place] (5/325)) 1 tab Q6H PRN PO MODERATE PAIN LEVEL 4-6; Start 07/18/16 at 15:30 Acetaminophen/ Hydrocodone Bitart ([place] (5/325)) 2 tab Q6H PRN PO SEVERE PAIN LEVEL 7-10; Start 07/18/16 at 15:30 Morphine Sulfate (morphine) 2 mg Q4H PRN IV SEVERE PAIN LEVEL 7-10 Last administered on 07/18/16 20:25; Admin Dose 2 MG; Start 07/18/16 at 15:30 Docusate Sodium (Colace) 100 mg Q12H PRN PO CONSTIPATION; Start 07/18/16 at 15: 30 Magnesium Hydroxide (Milk Of Mag) 30 ml DAILY PRN PO CONSTIPATION; Start at 15:30 Bisacodyl (Dulcolax Supp) 10 mg DAILY PRN [place] CONSTIPATION; Start 07/18/16 at 15 :30 Miscellaneous Information 1 ea NOTE XX ; Start 07/18/16 at 17:30 Glucose (Glutose) 15 gm Q15M PRN PO DECREASED GLUCOSE; Start 07/18/16 at 17:30 Glucose (Glutose) 22.5 gm Q15M PRN PO DECREASED GLUCOSE; Start 07/18/16 at 17: 30 Dextrose (D50w Syringe) 25 ml Q15M PRN IV DECREASED GLUCOSE; Start 07/18/16 at 17:30 Dextrose (D50w Syringe) 50 ml Q15M PRN IV DECREASED GLUCOSE; Start 07/18/16 at 17:30 Glucagon (Glucagen) 1 mg Q15M PRN IM DECREASED GLUCOSE; Start 07/18/16 at 17:30 Glucose (Glutose) 15 gm Q15M PRN BUCCAL DECREASED GLUCOSE; Start 07/18/16 at 17 :30 Furosemide (Lasix) 20 mg DAILY IV Last administered on 07/19/16 09:33; Admin Dose 20 MG; Start 07/19/16 at 09:00 Guaifenesin/ Codeine Phosphate 10 ml 10 ml Q4H PRN PO COUGH Last administered on 07/18/16 23:55; Admin Dose 10 ML; Start 07/18/16 at 23:30 Magnesium Sulfate (Magnesium Sulfate 4 Gm/100 ml) 100 ml @ 25 mls/hr ONCE ONCE IVPB Last administered on 07/19/16 11:30; Admin Dose 25 MLS/HR; Start at 10:45; Stop 07/19/16 at 14:44 Amiodarone HCl (Cordarone) 200 mg DAILY PO ; Start 07/20/16 at 09:00 Carvedilol (Coreg) 6.25 mg BID PO ; Start 07/19/16 at 21:00 WILLIAM WILD Jul 19, 2016 14:35
--- NOTE | 2016-07-19 15:50 | QN ---
Documentation Comment [id number] renal consult YANIRA HART MD Jul 19, 2016 15:49
--- NOTE | 2016-07-19 18:17 | CONS ---
DATE OF ADMISSION: 07/18/2016 DATE OF CONSULTATION: TYPE OF CONSULTATION: Nephrology. Thank you, Dr. Brown and Wil Quezada for kindly asking me to see this patient in nephrology consultation. HISTORY OF PRESENT ILLNESS: The patient's family is at bedside who provided the history. Patient with history of respiratory failure, congestive heart failure, ischemic cardiomyopathy, ejection fraction 25%, CKD, transaminitis, coagulopathy, lactic acidosis, metabolic acidosis, diabetes, atrial fibrillation , CAD, history of coronary artery bypass graft, history of pulmonary hypertension, presented with short of breath and noted to have electrolyte imbalance. PAST MEDICAL HISTORY: As mentioned above. ALLERGY HISTORY: Denies. SOCIAL HISTORY: Negative. FAMILY HISTORY: Negative. MEDICATION HISTORY: The patient is on: 1. [place]. 2. Amiodarone. 3. Apixaban. 4. Aspirin. 5. asa 6. Coreg. 7. Lasix. 8. The patient is on lisinopril. 9. Magnesium oxide. 10. Metformin. 11. dm_ 12. Nitroglycerin. 13. ntg 14. Ambien. REVIEW OF SYSTEMS: HEENT: Unremarkable. RESPIRATORY: Short of breath. CARDIOVASCULAR: neg ABDOMEN: Negative. EXTREMITIES: edema+ edema. CENTRAL NERVOUS SYSTEM: Unremarkable. PHYSICAL EXAMINATION: GENERAL: The patient is awake, alert, not in any acute respiratory distress. VITAL SIGNS: Pulse of 62, blood pressure 112/50. HEAD: Atraumatic, normocephalic. Pupils are equal, reactive to light. NECK: Supple. No JVD. LUNGS: Clear with basilar rales, rhonchi noted. CARDIOVASCULAR: S1, S2 normal. Systolic murmur noted. ABDOMEN: Soft, nontender. Bowel sounds present. No palpable mass or hepatosplenomegaly. No guarding, rebound tenderness. EXTREMITIES: No cyanosis, clubbing, or edema noted. LABORATORY DATA: Done in the past shows hematocrit 37.5. BUN 39, creatinine 0.97 in the past. Now the patient's current vital signs. Potassium 3.7, BUN 38 , creatinine 1.58. IMPRESSION: 1. Patient has acute on chronic renal failure with acute kidney injury due to systolic heart failure. 2. The patient has hypertension. 3. Anemia. 4. low ef 5. Acute urinary tract infection. PLAN: Is to continue gentle diuresis. Follow electrolytes very closely and the patient's Lasix will be increased. The patient is still short of breath. Orders were done. The patient's electrolytes will be monitored. Thank you, Dr. Brown, for kindly asking me to see this patient in nephrology consultation. Dictated By: YANIRA HART MD BS/NTS Conf#: [id number] DID#: [id number] MTDD
[2016-07-19] MEDS: GUAIFENESIN/CODEINE 5ML CUP PO PRN (19:43)
[2016-07-19] MEDS: FUROSEMIDE 20 MG INJ IV SCH (21:04)
[2016-07-19] MEDS: morphine 2 MG INJ IV PRN (21:04)
[2016-07-20] VITALS (13 sets, daily range): BP systolic 111–139; BP diastolic 55–60; PULSE 60–61; RESP 17–19
[2016-07-20] MEDS: PANTOPRAZOLE (EC) 40 MG TAB PO SCH (05:54)
[2016-07-20 06:46] LABS: POTASSIUM 4.1 mmol/L (3.5-5.1)
[2016-07-20 06:49] LABS: CREATININE 1.62 mg/dl (0.61-1.24)
[2016-07-20 06:50] LABS: CALCIUM 8.4 mg/dl (8.4-10.2); MAGNESIUM 2.1 mg/dl (1.7-2.5)
[2016-07-20 06:56] LABS: BASOPHILS % 0.6 % (0.0-2.0); EOSINOPHILS # 0.2 10^3/ul (0.0-0.5); HEMATOCRIT 39.1 % (42.0-52.0); HEMOGLOBIN 12.5 g/dl (14.0-18.0); LYMPHOCYTES # 0.7 10^3/ul (0.8-2.9); LYMPHOCYTES % 13.1 % (15.0-51.0); MEAN CORPUSCULAR HGB CONC 31.9 g/dl (32.0-37.0); MEAN CORPUSCULAR VOLUME 81.4 fl (82.0-101.0); MEAN PLATELET VOLUME 8.8 fl (7.4-10.4); MONOCYTE # 0.6 10^3/ul (0.3-0.9); MONOCYTES % 11.9 % (0.0-11.0); NEUTROPHIL # 3.6 10^3/ul (1.6-7.5); NEUTROPHILS % 70.4 % (39.0-77.0); PLATELET COUNT 251 10^3/UL (140-440); RED BLOOD COUNT 4.81 10^6/ul (4.70-6.10); RED CELL DISTRIBUTION WIDTH 22.6 % (11.5-14.5); UNCORRECTED WBC 5.2 10^3/ul (4.8-10.8); WHITE BLOOD COUNT 5.2 10^3/ul (4.8-10.8)
[2016-07-20 06:59] LABS: CONDITION 1; LH ANALYZER COMMENTS 1
[2016-07-20 07:05] LABS: CHOL/HDL RATIO 2.9 RATIO
[2016-07-20] MEDS: INSULIN ASPART [NOVOLOG] 3 ML PEN SC SCH ×4 (07:55→20:30)
[2016-07-20] MEDS: SUCRALFATE 1 GM TAB PO SCH ×4 (08:50→20:28)
[2016-07-20] MEDS: FUROSEMIDE 20 MG INJ IV SCH ×3 (08:50→20:29)
[2016-07-20] MEDS: APIXABAN 5 MG TABLET PO SCH ×2 (08:51→20:28)
[2016-07-20] MEDS: AMIODARONE 200 MG TAB PO SCH (08:52)
[2016-07-20] MEDS: LISINOPRIL 5 MG TAB PO SCH (08:53)
[2016-07-20] MEDS: ASPIRIN (EC) 81 MG TAB PO SCH (08:54)
[2016-07-20] MEDS: metFORMIN 500 MG TAB PO SCH ×2 (08:54→17:30)
[2016-07-20] MEDS: morphine 2 MG INJ IV PRN (10:05)
--- NOTE | 2016-07-20 12:41 | CONS ---
Date/Time of Note Date/Time of Note DATE: 07/20/16 TIME: 12:36 Assessment/Plan Assessment/Plan Chief Complaint/Hosp Course IMPRESSION: 1. Congestive heart failure exacerbation, systolic, acute on chronic.-negative troponin x 3. EF 25% by most recent echo 2. Shortness of breath secondary to #1. 3. History of coronary artery bypass graft surgery. Assess for acute coronary syndrome. 4. Abnormal electrocardiogram . Assess for acute coronary syndrome.-negative troponin x3 5. History of paroxysmal atrial fibrillation, on apixaban and amiodarone. 6. Acute renal failure-worsening 7. Hypertension, under reasonable control. 8. Anemia, mild. 9. Coagulopathy secondary to apixaban. Rec: -tele -serial ecg's -Continue coreg/zestril -Continue asa/apixaban for now -Follow volume status and renal fxn closely on lasix diuresis -Dose of IV digoxin to increase contractility Problems: Consultation Date/Type/Reason Admit Date/Time Jul 18, 2016 at 14:06 Initial Consult Date 07/19/2016 Type of Consultation: cardiology Reason for Consultation CHF Referring Provider: NANCY VELA MD Exam/Review of Systems Vital Signs Vitals Vital Signs Date Time Temp Pulse Resp B/P Pulse Ox O2 Delivery O2 Flow Rate FiO2 07/20/16 11:53 98.2 60 19 117/58 92 07/19/16 19:57 Nasal Cannula 2.0 Intake and Output 07/19/16 07/19/16 07/20/16 15:00 23:00 07:00 Intake Total 650 ml 400 ml Output Total 700 ml 600 ml Balance -50 ml -200 ml Exam Review of Systems: CONSTITUTIONAL: No fevers, chills. PULMONARY: Mild sob CARDIOVASCULAR: No chest pain/palpitations GASTROINTESTINAL: No nausea/vomiting. GENITOURINARY: No hematuria/dysuria. MUSCULOSKELETAL: No myagias/arthalgias. PSYCHIATRIC: The patient denies depression. NEUROLOGIC: No weakness Constitutional: alert, oriented Psych: no complaints Head: normocephalic ENMT: mucosa pink and moist Neck: jvd (9 cm water), supple Respiratory: diminished breath sounds (at bases/B) Cardiovascular: regular rate and rhythm Gastrointestinal: non-tender, soft Musculoskeletal: muscle tone (normal) Extremities: edema (none) Neurological: other (No focal deficits) Results Result Diagram: 07/20/16 0609 07/20/16 0609 Results 24 hrs Laboratory Tests Test 07/19/16 17:30 07/19/16 18:00 07/19/16 20:10 07/20/16 06:09 Bedside Glucose 216 168 Urine Random Creatinine 57.42 Urine Random Sodium 73 Anion Gap 16 Basophils # 0.0 Basophils % 0.6 Blood Morphology Comment Blood Urea Nitrogen 40 H Calcium Level 8.4 Carbon Dioxide Level 33 H Chloride Level 89 L Cholesterol Level 86 L Cholesterol/HDL Ratio 2.9 Creatinine 1.62 H Eosinophils # 0.2 Eosinophils % 4.0 Glucose Level 94 HDL Cholesterol 29 L Hematocrit 39.1 L Hemoglobin 12.5 L LDL Cholesterol, Calculated 45 Lymphocytes # 0.7 L Lymphocytes % 13.1 L Magnesium Level 2.1 Mean Corpuscular Hemoglobin 26.0 L Mean Corpuscular Hemoglobin Concent 31.9 L Mean Corpuscular Volume 81.4 L Mean Platelet Volume 8.8 Monocytes # 0.6 Monocytes % 11.9 H Neutrophils # 3.6 Neutrophils % 70.4 Nucleated Red Blood Cells # 0.0 Nucleated Red Blood Cells % 0.0 Platelet Count 251 Potassium Level 4.1 Red Blood Count 4.81 Red Cell Distribution Width 22.6 H Sodium Level 134 L Triglycerides Level 62 White Blood Count 5.2 Test 07/20/16 07:57 07/20/16 12:10 Bedside Glucose 105 137 Medications Medications Current Medications Apixaban (Eliquis) 2.5 mg BID PO Last administered on 07/20/16 08:51; Admin Dose 2.5 MG; Start 07/18/16 at 21:00 Aspirin (Halfprin) 81 mg DAILY PO Last administered on 07/20/16 08:54; Admin Dose 81 MG; Start 07/19/16 at 09:00 Lisinopril (Zestril) 2.5 mg DAILY PO Last administered on 07/20/16 08:53; Admin Dose 2.5 MG; Start 07/19/16 at 09:00 Nitroglycerin (Nitroglycerin (Sl Tab) 0.4 Mg) 1 tab DAILY PRN SL CHEST PAIN; Start 07/18/16 at 15:30 Sucralfate (Carafate) 1 gm QID PO Last administered on 07/20/16 08:50; Admin Dose 1 GM; Start 07/18/16 at 17:00 Pantoprazole (Protonix Tab) 40 mg DAILY@06 PO Last administered on 07/20/16 05 :54; Admin Dose 40 MG; Start 07/19/16 at 06:00 Ondansetron HCl (Zofran Inj) 4 mg Q6H PRN IV NAUSEA AND/OR VOMITING; Start at 15:30 Acetaminophen (Tylenol Tab) 650 mg Q6H PRN PO PAIN LEVEL 1-3 OR FEVER; Start at 15:30 Acetaminophen (Tylenol Supp) 650 mg Q6H PRN [place] PAIN LEVEL 1-3 OR FEVER; Start 07/18/16 at 15:30 Acetaminophen/ Hydrocodone Bitart ([place] (5/325)) 1 tab Q6H PRN PO MODERATE PAIN LEVEL 4-6; Start 07/18/16 at 15:30 Acetaminophen/ Hydrocodone Bitart ([place] (5/325)) 2 tab Q6H PRN PO SEVERE PAIN LEVEL 7-10; Start 07/18/16 at 15:30 Morphine Sulfate (morphine) 2 mg Q4H PRN IV SEVERE PAIN LEVEL 7-10 Last administered on 07/20/16 10:05; Admin Dose 2 MG; Start 07/18/16 at 15:30 Docusate Sodium (Colace) 100 mg Q12H PRN PO CONSTIPATION; Start 07/18/16 at 15: 30 Magnesium Hydroxide (Milk Of Mag) 30 ml DAILY PRN PO CONSTIPATION; Start at 15:30 Bisacodyl (Dulcolax Supp) 10 mg DAILY PRN [place] CONSTIPATION; Start 07/18/16 at 15 :30 Miscellaneous Information 1 ea NOTE XX ; Start 07/18/16 at 17:30 Glucose (Glutose) 15 gm Q15M PRN PO DECREASED GLUCOSE; Start 07/18/16 at 17:30 Glucose (Glutose) 22.5 gm Q15M PRN PO DECREASED GLUCOSE; Start 07/18/16 at 17: 30 Dextrose (D50w Syringe) 25 ml Q15M PRN IV DECREASED GLUCOSE; Start 07/18/16 at 17:30 Dextrose (D50w Syringe) 50 ml Q15M PRN IV DECREASED GLUCOSE; Start 07/18/16 at 17:30 Glucagon (Glucagen) 1 mg Q15M PRN IM DECREASED GLUCOSE; Start 07/18/16 at 17:30 Glucose (Glutose) 15 gm Q15M PRN BUCCAL DECREASED GLUCOSE; Start 07/18/16 at 17 :30 Guaifenesin/ Codeine Phosphate (Robitussin Ac Liquid Cup) 10 ml Q4H PRN PO COUGH Last administered on 07/19/16 19:43; Admin Dose 10 ML; Start 07/18/16 at 23:30 Amiodarone HCl (Cordarone) 200 mg DAILY PO Last administered on 07/20/16 08:52 ; Admin Dose 200 MG; Start 07/20/16 at 09:00 Carvedilol (Coreg) 6.25 mg BID PO Last administered on 07/20/16 08:55; Admin Dose 6.25 MG; Start 07/19/16 at 21:00 Furosemide (Lasix) 20 mg TID IV Last administered on 07/20/16 08:50; Admin Dose 20 MG; Start 07/19/16 at 21:00 POLI SAN Jul 20, 2016 12:41
[2016-07-20] MEDS ORDERED: DIGOXIN 500 MCG INJ IV ONE (13:00)
--- NOTE | 2016-07-20 13:48 | PN ---
Date/Time of Note Date/Time of Note DATE: 07/20/16 TIME: 13:46 Assessment/Plan VTE Prophylaxis VTE Prophylaxis Intervention: other (eliquis) Lines/Catheters IV [facility]ter Type (from [facility] Saline Lock Urinary Cath still in place: No Assessment/Plan Chief Complaint/Hosp Course Assessment and plan 1. Acute on chronic congestive heart failure. Patient with known systolic dysfunction. Continue on diuresis. Continue with cardiology recommendations 2. 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 Patient does have known AICD in place. Continue optimization with cardiovascular medications and beta-rios. 3. Type 2 diabetes. Follow-up on A1c. Continue insulin regimen . 4. Atrial fibrillation. Will resume patient's amiodarone as well as his Eliquis 5. History of CAD status post CABG. Will resume patient's antiplatelet medications 6. Acute on likely chronic kidney disease. Monitor renal panel. Continue with nephrology recommendations. Avoid nephrotoxic medications as possible Disposition and plan: Await clinical improvement of respiratory status. Renal function slightly worse. follow up with nephro recs. check f/u chest radiograph Discussed plan of care with Dr. Brown Problems: Subjective 24 Hr Interval Summary Free Text/Dictation still with some general body aches and dyspnea Exam/Review of Systems Vital Signs Vitals Vital Signs Date Time Temp Pulse Resp B/P Pulse Ox O2 Delivery O2 Flow Rate FiO2 07/20/16 11:53 98.2 60 19 117/58 92 07/19/16 19:57 Nasal Cannula 2.0 Intake and Output 07/19/16 07/19/16 07/20/16 15:00 23:00 07:00 Intake Total 650 ml 400 ml Output Total 700 ml 600 ml Balance -50 ml -200 ml Exam General: No apparent distress. Reports better breathing Eyes: pupils equal round, Anicteric sclera Neck: Supple nontender, no JVD Cardiac: S1, S2 auscultated, regular rhythm and rate Pulmonary: Coarse lung sounds auscultated bilaterally with diminished lung bases GI: Abdomen soft nontender nondistended, bowel sounds active Extremities: Edema bilateral lower extremities +2 Skin: Clean dry and intact Neurologic: Alert to person place and time and situation Results Result Diagram: 07/20/16 0609 07/20/16 0609 Results 24 hrs Laboratory Tests Test 07/19/16 17:30 07/19/16 18:00 07/19/16 20:10 07/20/16 06:09 Bedside Glucose 216 168 Urine Random Creatinine 57.42 Urine Random Sodium 73 Anion Gap 16 Basophils # 0.0 Basophils % 0.6 Blood Morphology Comment Blood Urea Nitrogen 40 H Calcium Level 8.4 Carbon Dioxide Level 33 H Chloride Level 89 L Cholesterol Level 86 L Cholesterol/HDL Ratio 2.9 Creatinine 1.62 H Eosinophils # 0.2 Eosinophils % 4.0 Glucose Level 94 HDL Cholesterol 29 L Hematocrit 39.1 L Hemoglobin 12.5 L LDL Cholesterol, Calculated 45 Lymphocytes # 0.7 L Lymphocytes % 13.1 L Magnesium Level 2.1 Mean Corpuscular Hemoglobin 26.0 L Mean Corpuscular Hemoglobin Concent 31.9 L Mean Corpuscular Volume 81.4 L Mean Platelet Volume 8.8 Monocytes # 0.6 Monocytes % 11.9 H Neutrophils # 3.6 Neutrophils % 70.4 Nucleated Red Blood Cells # 0.0 Nucleated Red Blood Cells % 0.0 Platelet Count 251 Potassium Level 4.1 Red Blood Count 4.81 Red Cell Distribution Width 22.6 H Sodium Level 134 L Triglycerides Level 62 White Blood Count 5.2 Test 07/20/16 07:57 07/20/16 12:10 Bedside Glucose 105 137 Medications Medications Current Medications Apixaban (Eliquis) 2.5 mg BID PO Last administered on 07/20/16 08:51; Admin Dose 2.5 MG; Start 07/18/16 at 21:00 Aspirin (Halfprin) 81 mg DAILY PO Last administered on 07/20/16 08:54; Admin Dose 81 MG; Start 07/19/16 at 09:00 Lisinopril (Zestril) 2.5 mg DAILY PO Last administered on 07/20/16 08:53; Admin Dose 2.5 MG; Start 07/19/16 at 09:00 Nitroglycerin (Nitroglycerin (Sl Tab) 0.4 Mg) 1 tab DAILY PRN SL CHEST PAIN; Start 07/18/16 at 15:30 Sucralfate (Carafate) 1 gm QID PO Last administered on 07/20/16 13:14; Admin Dose 1 GM; Start 07/18/16 at 17:00 Pantoprazole (Protonix Tab) 40 mg DAILY@06 PO Last administered on 07/20/16 05 :54; Admin Dose 40 MG; Start 07/19/16 at 06:00 Ondansetron HCl (Zofran Inj) 4 mg Q6H PRN IV NAUSEA AND/OR VOMITING; Start at 15:30 Acetaminophen (Tylenol Tab) 650 mg Q6H PRN PO PAIN LEVEL 1-3 OR FEVER; Start at 15:30 Acetaminophen (Tylenol Supp) 650 mg Q6H PRN [place] PAIN LEVEL 1-3 OR FEVER; Start 07/18/16 at 15:30 Acetaminophen/ Hydrocodone Bitart ([place] (5/325)) 1 tab Q6H PRN PO MODERATE PAIN LEVEL 4-6; Start 07/18/16 at 15:30 Acetaminophen/ Hydrocodone Bitart ([place] (5/325)) 2 tab Q6H PRN PO SEVERE PAIN LEVEL 7-10; Start 07/18/16 at 15:30 Morphine Sulfate (morphine) 2 mg Q4H PRN IV SEVERE PAIN LEVEL 7-10 Last administered on 07/20/16t 10:05; Admin Dose 2 MG; Start 07/18/16 at 15:30 Docusate Sodium (Colace) 100 mg Q12H PRN PO CONSTIPATION; Start 07/18/16 at 15: 30 Magnesium Hydroxide (Milk Of Mag) 30 ml DAILY PRN PO CONSTIPATION; Start at 15:30 Bisacodyl (Dulcolax Supp) 10 mg DAILY PRN [place] CONSTIPATION; Start 07/18/16 at 15 :30 Miscellaneous Information 1 ea NOTE XX ; Start 07/18/16 at 17:30 Glucose (Glutose) 15 gm Q15M PRN PO DECREASED GLUCOSE; Start 07/18/16 at 17:30 Glucose (Glutose) 22.5 gm Q15M PRN PO DECREASED GLUCOSE; Start 07/18/16 at 17: 30 Dextrose (D50w Syringe) 25 ml Q15M PRN IV DECREASED GLUCOSE; Start 07/18/16 at 17:30 Dextrose (D50w Syringe) 50 ml Q15M PRN IV DECREASED GLUCOSE; Start 07/18/16 at 17:30 Glucagon (Glucagen) 1 mg Q15M PRN [place] DECREASED GLUCOSE; Start 07/18/16 at 17:30 Glucose (Glutose) 15 gm Q15M PRN BUCCAL DECREASED GLUCOSE; Start 07/18/16 at 17 :30 Guaifenesin/ Codeine Phosphate (Robitussin Ac Liquid Cup) 10 ml Q4H PRN PO COUGH Last administered on 07/19/16 19:43; Admin Dose 10 ML; Start 07/18/16 at 23:30 Amiodarone HCl (Cordarone) 200 mg DAILY PO Last administered on 07/20/16 08:52 ; Admin Dose 200 MG; Start 07/20/16 at 09:00 Carvedilol (Coreg) 6.25 mg BID PO Last administered on 07/20/16 08:55; Admin Dose 6.25 MG; Start 07/19/16 at 21:00 Furosemide (Lasix) 20 mg TID IV Last administered on 07/20/16 13:14; Admin Dose 20 MG; Start 07/19/16 at 21:00 WILLIAM WILD Jul 20, 2016 13:48
[2016-07-20] MEDS: MAGNESIUM HYDROXIDE 30ML CUP PO PRN (17:30)
--- NOTE | 2016-07-20 20:00 | CONS ---
Date/Time of Note Date/Time of Note DATE: 07/20/16 TIME: 19:59 Assessment/Plan Assessment/Plan Chief Complaint/Hosp Course 1. Patient has acute on chronic renal failure with acute kidney injury due to systolic heart failure. 2. The patient has hypertension. 3. Anemia. 4. ANEMIA 5. Acute urinary tract infection. PLAN CONTINUE LASIX Problems: Consultation Date/Type/Reason Admit Date/Time Jul 18, 2016 at 14:06 Initial Consult Date Type of Consultation: RENAL Referring Provider: NANCY VELA MD 24 HR Interval Summary Constitutional: other (SOB BETTER) Exam/Review of Systems Vital Signs Vitals Vital Signs Date Time Temp Pulse Resp B/P Pulse Ox O2 Delivery O2 Flow Rate FiO2 07/20/16 17:39 61 07/20/16 15:32 98.2 19 112/57 94 07/19/16 19:57 Nasal Cannula 2.0 Intake and Output 07/19/16 07/19/16 07/20/16 15:00 23:00 07:00 Intake Total 650 ml 400 ml Output Total 700 ml 600 ml Balance -50 ml -200 ml Exam Respiratory: diminished breath sounds Cardiovascular: regular rate and rhythm Gastrointestinal: bowel sounds (+), soft Extremities: edema (TR) Results Result Diagram: 07/20/16 0609 07/20/16 0609 Results 24 hrs Laboratory Tests Test 07/19/16 20:10 07/20/16 06:09 07/20/16 07:57 07/20/16 12:10 Bedside Glucose 168 105 137 Anion Gap 16 Basophils # 0.0 Basophils % 0.6 Blood Morphology Comment Blood Urea Nitrogen 40 H Calcium Level 8.4 Carbon Dioxide Level 33 H Chloride Level 89 L Cholesterol Level 86 L Cholesterol/HDL Ratio 2.9 Creatinine 1.62 H Eosinophils # 0.2 Eosinophils % 4.0 Glucose Level 94 HDL Cholesterol 29 L Hematocrit 39.1 L Hemoglobin 12.5 L LDL Cholesterol, Calculated 45 Lymphocytes # 0.7 L Lymphocytes % 13.1 L Magnesium Level 2.1 Mean Corpuscular Hemoglobin 26.0 L Mean Corpuscular Hemoglobin Concent 31.9 L Mean Corpuscular Volume 81.4 L Mean Platelet Volume 8.8 Monocytes # 0.6 Monocytes % 11.9 H Neutrophils # 3.6 Neutrophils % 70.4 Nucleated Red Blood Cells # 0.0 Nucleated Red Blood Cells % 0.0 Platelet Count 251 Potassium Level 4.1 Red Blood Count 4.81 Red Cell Distribution Width 22.6 H Sodium Level 134 L Triglycerides Level 62 White Blood Count 5.2 Test 07/20/16 17:29 Bedside Glucose 139 Medications Medications Current Medications Apixaban (Eliquis) 2.5 mg BID PO Last administered on 07/20/16 08:51; Admin Dose 2.5 MG; Start 07/18/16 at 21:00 Aspirin (Halfprin) 81 mg DAILY PO Last administered on 07/20/16 08:54; Admin Dose 81 MG; Start 07/19/16 at 09:00 Lisinopril (Zestril) 2.5 mg DAILY PO Last administered on 07/20/16 08:53; Admin Dose 2.5 MG; Start 07/19/16 at 09:00 Nitroglycerin (Nitroglycerin (Sl Tab) 0.4 Mg) 1 tab DAILY PRN SL CHEST PAIN; Start 07/18/16 at 15:30 Sucralfate (Carafate) 1 gm QID PO Last administered on 07/20/16 17:30; Admin Dose 1 GM; Start 07/18/16 at 17:00 Pantoprazole (Protonix Tab) 40 mg DAILY@06 PO Last administered on 07/20/16 05 :54; Admin Dose 40 MG; Start 07/19/16 at 06:00 Ondansetron HCl (Zofran Inj) 4 mg Q6H PRN IV NAUSEA AND/OR VOMITING; Start at 15:30 Acetaminophen (Tylenol Tab) 650 mg Q6H PRN PO PAIN LEVEL 1-3 OR FEVER; Start at 15:30 Acetaminophen (Tylenol Supp) 650 mg Q6H PRN [place] PAIN LEVEL 1-3 OR FEVER; Start 07/18/16 at 15:30 Acetaminophen/ Hydrocodone Bitart ([place] (5/325)) 1 tab Q6H PRN PO MODERATE PAIN LEVEL 4-6; Start 07/18/16 at 15:30 Acetaminophen/ Hydrocodone Bitart ([place] (5/325)) 2 tab Q6H PRN PO SEVERE PAIN LEVEL 7-10; Start 07/18/16 at 15:30 Morphine Sulfate (morphine) 2 mg Q4H PRN IV SEVERE PAIN LEVEL 7-10 Last administered on 07/20/16 10:05; Admin Dose 2 MG; Start 07/18/16 at 15:30 Docusate Sodium (Colace) 100 mg Q12H PRN PO CONSTIPATION; Start 07/18/16 at 15: 30 Magnesium Hydroxide (Milk Of Mag) 30 ml DAILY PRN PO CONSTIPATION Last administered on 07/20/16 17:30; Admin Dose 30 ML; Start 07/18/16 at 15:30 Bisacodyl (Dulcolax Supp) 10 mg DAILY PRN [place] CONSTIPATION; Start 07/18/16 at 15 :30 Miscellaneous Information 1 ea NOTE XX ; Start 07/18/16 at 17:30 Glucose (Glutose) 15 gm Q15M PRN PO DECREASED GLUCOSE; Start 07/18/16 at 17:30 Glucose (Glutose) 22.5 gm Q15M PRN PO DECREASED GLUCOSE; Start 07/18/16 at 17: 30 Dextrose (D50w Syringe) 25 ml Q15M PRN IV DECREASED GLUCOSE; Start 07/18/16 at 17:30 Dextrose (D50w Syringe) 50 ml Q15M PRN IV DECREASED GLUCOSE; Start 07/18/16 at 17:30 Glucagon (Glucagen) 1 mg Q15M PRN IM DECREASED GLUCOSE; Start 07/18/16 at 17:30 Glucose (Glutose) 15 gm Q15M PRN BUCCAL DECREASED GLUCOSE; Start 07/18/16 at 17 :30 Guaifenesin/ Codeine Phosphate (Robitussin Ac Liquid Cup) 10 ml Q4H PRN PO COUGH Last administered on 07/19/16 19:43; Admin Dose 10 ML; Start 07/18/16 at 23:30 Amiodarone HCl (Cordarone) 200 mg DAILY PO Last administered on 07/20/16 08:52 ; Admin Dose 200 MG; Start 07/20/16 at 09:00 Carvedilol (Coreg) 6.25 mg BID PO Last administered on 07/20/16 08:55; Admin Dose 6.25 MG; Start 07/19/16 at 21:00 Furosemide (Lasix) 20 mg TID IV Last administered on 07/20/16 13:14; Admin Dose 20 MG; Start 07/19/16 at 21:00 YANIRA HART MD Jul 20, 2016 20:00
[2016-07-20] MEDS: DOCUSATE SODIUM 100 MG CAP PO PRN (20:28)
[2016-07-20] MEDS: ZOLPIDEM 5 MG TAB PO PRN (20:28)
[2016-07-21] VITALS (12 sets, daily range): BP systolic 121–139; BP diastolic 55–60; PULSE 60; RESP 16–18
[2016-07-21] MEDS: morphine 2 MG INJ IV PRN (03:56)
[2016-07-21] MEDS: PANTOPRAZOLE (EC) 40 MG TAB PO SCH (06:30)
[2016-07-21] MEDS: INSULIN ASPART [NOVOLOG] 3 ML PEN SC SCH ×4 (07:55→20:20)
[2016-07-21 08:16] LABS: POTASSIUM 4.3 mmol/L (3.5-5.1)
[2016-07-21 08:19] LABS: CREATININE 1.59 mg/dl (0.61-1.24)
[2016-07-21 08:20] LABS: CALCIUM 8.5 mg/dl (8.4-10.2)
[2016-07-21] MEDS: metFORMIN 500 MG TAB PO SCH ×2 (08:24→17:14)
[2016-07-21] MEDS: SUCRALFATE 1 GM TAB PO SCH ×4 (08:24→20:19)
[2016-07-21] MEDS: FUROSEMIDE 20 MG INJ IV SCH ×2 (08:24→18:52)
[2016-07-21] MEDS: APIXABAN 5 MG TABLET PO SCH ×2 (08:25→20:19)
[2016-07-21] MEDS: AMIODARONE 200 MG TAB PO SCH (08:25)
[2016-07-21] MEDS: ASPIRIN (EC) 81 MG TAB PO SCH (08:25)
[2016-07-21] MEDS: LISINOPRIL 5 MG TAB PO SCH (08:26)
[2016-07-21 09:00] LABS: BASOPHILS % 0.8 % (0.0-2.0); EOSINOPHILS % 0.9 % (0.0-7.0); HEMATOCRIT 39.2 % (42.0-52.0); HEMOGLOBIN 12.4 g/dl (14.0-18.0); LYMPHOCYTES # 0.6 10^3/ul (0.8-2.9); LYMPHOCYTES % 10.9 % (15.0-51.0); MEAN CORPUSCULAR HEMOGLOBIN 25.9 pg (29.0-33.0); MEAN CORPUSCULAR HGB CONC 31.5 g/dl (32.0-37.0); MEAN CORPUSCULAR VOLUME 82.2 fl (82.0-101.0); MEAN PLATELET VOLUME 8.8 fl (7.4-10.4); MONOCYTE # 0.6 10^3/ul (0.3-0.9); MONOCYTES % 11.7 % (0.0-11.0); NEUTROPHILS % 75.7 % (39.0-77.0); PLATELET COUNT 252 10^3/UL (140-440); RED BLOOD COUNT 4.77 10^6/ul (4.70-6.10); RED CELL DISTRIBUTION WIDTH 22.6 % (11.5-14.5); UNCORRECTED WBC 5.4 10^3/ul (4.8-10.8); WHITE BLOOD COUNT 5.4 10^3/ul (4.8-10.8)
[2016-07-21 09:11] LABS: CONDITION 1; LH ANALYZER COMMENTS 1
--- NOTE | 2016-07-21 11:12 | PN ---
Date/Time of Note Date/Time of Note DATE: 07/21/16 TIME: 11:09 Assessment/Plan VTE Prophylaxis VTE Prophylaxis Intervention: other (on Eliquis for anticoagulation ) Lines/Catheters IV [facility]from [facility] Urinary Cath still in place: No Assessment/Plan Assessment/Plan 1. Acute on chronic congestive heart failure. Patient with known systolic dysfunction. on IV lasix 2. 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 Type 2 diabetes. 4. Atrial fibrillation, rate controlled 5. History of CAD status post CABG 6. Acute on likely chronic kidney disease 2/2 cardiorenal syndorme Plan: will change lasix to 20mg IV BID if ok with cardiology and nephrology, will have renal/cardiology to manage diuretics Bp stable Repeat CXR in AM will keep pt in telemetry floor pt is on Eliquis for atrial fibrillation , for anticoagulation Subjective 24 Hr Interval Summary Free Text/Dictation pt BUN/Cr high, HCO3 trending up, on Lasix 20mg IV TID Exam/Review of Systems Vital Signs Vitals Vital Signs Date Time Temp Pulse Resp B/P Pulse Ox O2 Delivery O2 Flow Rate FiO2 07/21/16 08:26 60 07/21/16 08:00 Nasal Cannula 4.0 07/21/16 07:12 97.5 18 123/60 100 Intake and Output 07/20/16 07/20/16 07/21/16 15:00 23:00 07:00 Intake Total 550 ml 150 ml Output Total 800 ml 200 ml Balance -250 ml -50 ml Results Result Diagram: 07/21/16 0735 07/21/16 0755 Results 24 hrs Laboratory Tests Test 07/20/16 12:10 07/20/16 17:29 07/20/16 20:24 07/21/16 07:35 Bedside Glucose 137 139 148 Basophils # 0.0 Basophils % 0.8 Blood Morphology Comment Eosinophils # 0.0 Eosinophils % 0.9 Hematocrit 39.2 L Hemoglobin 12.4 L Lymphocytes # 0.6 L Lymphocytes % 10.9 L Mean Corpuscular Hemoglobin 25.9 L Mean Corpuscular Hemoglobin Concent 31.5 L Mean Corpuscular Volume 82.2 Mean Platelet Volume 8.8 Monocytes # 0.6 Monocytes % 11.7 H Neutrophils # 4.0 Neutrophils % 75.7 Nucleated Red Blood Cells # 0.0 Nucleated Red Blood Cells % 0.0 Platelet Count 252 Red Blood Count 4.77 Red Cell Distribution Width 22.6 H White Blood Count 5.4 Test 07/21/16 07:55 07/21/16 08:16 07/21/16 10:19 Anion Gap 18 H Blood Urea Nitrogen 46 H Calcium Level 8.5 Carbon Dioxide Level 32 H Chloride Level 88 L Creatinine 1.59 H Glucose Level 91 Potassium Level 4.3 Sodium Level 134 L Bedside Glucose 101 Lab Scanned Report REFERENCE LAB Medications Medications Current Medications Apixaban (Eliquis) 2.5 mg BID PO Last administered on 07/21/16 08:25; Admin Dose 2.5 MG; Start 07/18/16 at 21:00 Aspirin (Halfprin) 81 mg DAILY PO Last administered on 07/21/16 08:25; Admin Dose 81 MG; Start 07/19/16 at 09:00 Lisinopril (Zestril) 2.5 mg DAILY PO Last administered on 07/21/16 08:26; Admin Dose 2.5 MG; Start 07/19/16 at 09:00 Nitroglycerin (Nitroglycerin (Sl Tab) 0.4 Mg) 1 tab DAILY PRN SL CHEST PAIN; Start 07/18/16 at 15:30 Sucralfate (Carafate) 1 gm QID PO Last administered on 07/21/16 08:24; Admin Dose 1 GM; Start 07/18/16 at 17:00 Pantoprazole (Protonix Tab) 40 mg DAILY@06 PO Last administered on 07/21/16 06 :30; Admin Dose 40 MG; Start 07/19/16 at 06:00 Ondansetron HCl (Zofran Inj) 4 mg Q6H PRN IV NAUSEA AND/OR VOMITING; Start at 15:30 Acetaminophen (Tylenol Tab) 650 mg Q6H PRN PO PAIN LEVEL 1-3 OR FEVER; Start at 15:30 Acetaminophen (Tylenol Supp) 650 mg Q6H PRN [place] PAIN LEVEL 1-3 OR FEVER; Start 07/18/16 at 15:30 Acetaminophen/ Hydrocodone Bitart ([place] (5/325)) 1 tab Q6H PRN PO MODERATE PAIN LEVEL 4-6; Start 07/18/16 at 15:30 Acetaminophen/ Hydrocodone Bitart ([place] (5/325)) 2 tab Q6H PRN PO SEVERE PAIN LEVEL 7-10; Start 07/18/16 at 15:30 Morphine Sulfate (morphine) 2 mg Q4H PRN IV SEVERE PAIN LEVEL 7-10 Last administered on 07/21/16 03:56; Admin Dose 2 MG; Start 07/18/16 at 15:30 Docusate Sodium (Colace) 100 mg Q12H PRN PO CONSTIPATION Last administered on 20:28; Admin Dose 100 MG; Start 07/18/16 at 15:30 Magnesium Hydroxide (Milk Of Mag) 30 ml DAILY PRN PO CONSTIPATION Last administered on 07/20/16 17:30; Admin Dose 30 ML; Start 07/18/16 at 15:30 Bisacodyl (Dulcolax Supp) 10 mg DAILY PRN [place] CONSTIPATION; Start 07/18/16 at 15 :30 Miscellaneous Information 1 ea NOTE XX ; Start 07/18/16 at 17:30 Glucose (Glutose) 15 gm Q15M PRN PO DECREASED GLUCOSE; Start 07/18/16 at 17:30 Glucose (Glutose) 22.5 gm Q15M PRN PO DECREASED GLUCOSE; Start 07/18/16 at 17: 30 Dextrose (D50w Syringe) 25 ml Q15M PRN IV DECREASED GLUCOSE; Start 07/18/16 at 17:30 Dextrose (D50w Syringe) 50 ml Q15M PRN IV DECREASED GLUCOSE; Start 07/18/16 at 17:30 Glucagon (Glucagen) 1 mg Q15M PRN IM DECREASED GLUCOSE; Start 07/18/16 at 17:30 Glucose (Glutose) 15 gm Q15M PRN BUCCAL DECREASED GLUCOSE; Start 07/18/16 at 17 :30 Guaifenesin/ Codeine Phosphate (Robitussin Ac Liquid Cup) 10 ml Q4H PRN PO COUGH Last administered on 07/19/16 19:43; Admin Dose 10 ML; Start 07/18/16 at 23:30 Amiodarone HCl (Cordarone) 200 mg DAILY PO Last administered on 07/21/16 08:25 ; Admin Dose 200 MG; Start 07/20/16 at 09:00 Carvedilol (Coreg) 6.25 mg BID PO Last administered on 2/21/17at 08:25; Admin Dose 6.25 MG; Start 07/19/16 at 21:00 Furosemide (Lasix) 20 mg TID IV Last administered on 07/21/16t 08:24; Admin Dose 20 MG; Start 07/19/16 at 21:00 STEPHAN MARES MD Jul 21, 2016 11:12
--- NOTE | 2016-07-21 15:19 | CONS ---
Date/Time of Note Date/Time of Note DATE: 07/21/16 TIME: 15:16 Assessment/Plan Assessment/Plan Chief Complaint/Hosp Course IMPRESSION: 1. Congestive heart failure exacerbation, systolic, acute on chronic.-negative troponin x 3. EF 25% by most recent echo 2. Shortness of breath secondary to #1. 3. History of coronary artery bypass graft surgery. Assess for acute coronary syndrome. 4. Abnormal electrocardiogram . Assess for acute coronary syndrome.-negative troponin x3 5. History of paroxysmal atrial fibrillation, on apixaban and amiodarone. 6. Acute renal failure-worsening 7. Hypertension, under reasonable control. 8. Anemia, mild. 9. Coagulopathy secondary to apixaban. Rec: -tele -serial ecg's -Continue coreg/zestril -Continue asa/apixaban for now -Follow volume status and renal fxn closely on lasix diuresis which I will slight increase -check AM cxr -s/p dose of IV digoxin to increase contractility Problems: Consultation Date/Type/Reason Admit Date/Time Jul 18, 2016 at 14:06 Initial Consult Date 07/19/2016 Type of Consultation: cardiology Reason for Consultation CHF Referring Provider: NANCY VELA MD Exam/Review of Systems Vital Signs Vitals Vital Signs Date Time Temp Pulse Resp B/P Pulse Ox O2 Delivery O2 Flow Rate FiO2 07/21/16 12:06 60 07/21/16 11:11 97.7 18 126/60 100 07/21/16 08:00 Nasal Cannula 4.0 Intake and Output 07/20/16 07/20/16 07/21/16 15:00 23:00 07:00 Intake Total 550 ml 150 ml Output Total 800 ml 200 ml Balance -250 ml -50 ml Exam Review of Systems: CONSTITUTIONAL: No fevers, chills. PULMONARY: mild sob CARDIOVASCULAR: No chest pain/palpitations GASTROINTESTINAL: No nausea/vomiting. GENITOURINARY: No hematuria/dysuria. MUSCULOSKELETAL: No myagias/arthalgias. PSYCHIATRIC: The patient denies depression. NEUROLOGIC: No weakness Constitutional: alert Psych: no complaints Head: normocephalic ENMT: mucosa pink and moist Neck: jvd, supple Respiratory: diminished breath sounds Cardiovascular: regular rate and rhythm Gastrointestinal: non-tender, soft Musculoskeletal: muscle tone (normal) Extremities: edema (trace/B) Neurological: other (No focal deficits) Results Result Diagram: 07/21/16 0735 07/21/16 0755 Results 24 hrs Laboratory Tests Test 07/20/16 17:29 07/20/16 20:24 07/21/16 07:35 07/21/16 07:55 Bedside Glucose 139 148 Basophils # 0.0 Basophils % 0.8 Blood Morphology Comment Eosinophils # 0.0 Eosinophils % 0.9 Hematocrit 39.2 L Hemoglobin 12.4 L Lymphocytes # 0.6 L Lymphocytes % 10.9 L Mean Corpuscular Hemoglobin 25.9 L Mean Corpuscular Hemoglobin Concent 31.5 L Mean Corpuscular Volume 82.2 Mean Platelet Volume 8.8 Monocytes # 0.6 Monocytes % 11.7 H Neutrophils # 4.0 Neutrophils % 75.7 Nucleated Red Blood Cells # 0.0 Nucleated Red Blood Cells % 0.0 Platelet Count 252 Red Blood Count 4.77 Red Cell Distribution Width 22.6 H White Blood Count 5.4 Anion Gap 18 H Blood Urea Nitrogen 46 H Calcium Level 8.5 Carbon Dioxide Level 32 H Chloride Level 88 L Creatinine 1.59 H Glucose Level 91 Potassium Level 4.3 Sodium Level 134 L Test 07/21/16 08:16 07/21/16 10:19 07/21/16 12:18 Bedside Glucose 101 118 Lab Scanned Report REFERENCE LAB Medications Medications Current Medications Apixaban (Eliquis) 2.5 mg BID PO Last administered on 07/21/16 08:25; Admin Dose 2.5 MG; Start 07/18/16 at 21:00 Aspirin (Halfprin) 81 mg DAILY PO Last administered on 07/21/16 08:25; Admin Dose 81 MG; Start 07/19/16 at 09:00 Lisinopril (Zestril) 2.5 mg DAILY PO Last administered on 07/21/16 08:26; Admin Dose 2.5 MG; Start 07/19/16 at 09:00 Nitroglycerin (Nitroglycerin (Sl Tab) 0.4 Mg) 1 tab DAILY PRN SL CHEST PAIN; Start 07/18/16 at 15:30 Sucralfate (Carafate) 1 gm QID PO Last administered on 07/21/16 08:24; Admin Dose 1 GM; Start 07/18/16 at 17:00 Pantoprazole (Protonix Tab) 40 mg DAILY@06 PO Last administered on 07/21/16 06 :30; Admin Dose 40 MG; Start 07/19/16 at 06:00 Ondansetron HCl (Zofran Inj) 4 mg Q6H PRN IV NAUSEA AND/OR VOMITING; Start at 15:30 Acetaminophen (Tylenol Tab) 650 mg Q6H PRN PO PAIN LEVEL 1-3 OR FEVER; Start at 15:30 Acetaminophen (Tylenol Supp) 650 mg Q6H PRN [place] PAIN LEVEL 1-3 OR FEVER; Start 07/18/16 at 15:30 Acetaminophen/ Hydrocodone Bitart ([place] (5/325)) 1 tab Q6H PRN PO MODERATE PAIN LEVEL 4-6; Start 07/18/16 at 15:30 Acetaminophen/ Hydrocodone Bitart ([place] (5/325)) 2 tab Q6H PRN PO SEVERE PAIN LEVEL 7-10; Start 07/18/16 at 15:30 Morphine Sulfate (morphine) 2 mg Q4H PRN IV SEVERE PAIN LEVEL 7-10 Last administered on 07/21/16 03:56; Admin Dose 2 MG; Start 07/18/16 at 15:30 Docusate Sodium (Colace) 100 mg Q12H PRN PO CONSTIPATION Last administered on 20:28; Admin Dose 100 MG; Start 07/18/16 at 15:30 Magnesium Hydroxide (Milk Of Mag) 30 ml DAILY PRN PO CONSTIPATION Last administered on 07/20/16 17:30; Admin Dose 30 ML; Start 07/18/16 at 15:30 Bisacodyl (Dulcolax Supp) 10 mg DAILY PRN [place] CONSTIPATION; Start 07/18/16 at 15 :30 Miscellaneous Information 1 ea NOTE XX ; Start 07/18/16 at 17:30 Glucose (Glutose) 15 gm Q15M PRN PO DECREASED GLUCOSE; Start 07/18/16 at 17:30 Glucose (Glutose) 22.5 gm Q15M PRN PO DECREASED GLUCOSE; Start 07/18/16 at 17: 30 Dextrose (D50w Syringe) 25 ml Q15M PRN IV DECREASED GLUCOSE; Start 07/18/16 at 17:30 Dextrose (D50w Syringe) 50 ml Q15M PRN IV DECREASED GLUCOSE; Start 07/18/16 at 17:30 Glucagon (Glucagen) 1 mg Q15M PRN IM DECREASED GLUCOSE; Start 07/18/16 at 17:30 Glucose (Glutose) 15 gm Q15M PRN BUCCAL DECREASED GLUCOSE; Start 07/18/16 at 17 :30 Guaifenesin/ Codeine Phosphate (Robitussin Ac Liquid Cup) 10 ml Q4H PRN PO COUGH Last administered on 07/19/16 19:43; Admin Dose 10 ML; Start 07/18/16 at 23:30 Amiodarone HCl (Cordarone) 200 mg DAILY PO Last administered on 07/21/16 08:25 ; Admin Dose 200 MG; Start 07/20/16 at 09:00 Carvedilol (Coreg) 6.25 mg BID PO Last administered on 07/21/16 08:25; Admin Dose 6.25 MG; Start 07/19/16 at 21:00 POLI SAN Jul 21, 2016 15:19
[2016-07-21] MEDS: ACETAMINOPHEN 325 MG TAB PO PRN (17:14)
[2016-07-21] MEDS: DOCUSATE SODIUM 100 MG CAP PO PRN (20:19)
[2016-07-21] MEDS: ZOLPIDEM 5 MG TAB PO PRN (20:19)
--- NOTE | 2016-07-21 20:51 | CONS ---
Date/Time of Note Date/Time of Note DATE: 07/21/16 TIME: 20:50 Assessment/Plan Assessment/Plan Chief Complaint/Hosp Course 1. Patient has acute on chronic renal failure with acute kidney injury due to systolic heart failure. 2. The patient has hypertension. 3. Anemia. 4. ANEMIA 5. Acute urinary tract infection. PLAN CONTINUE LASIX PT/OT Problems: Consultation Date/Type/Reason Admit Date/Time Jul 18, 2016 at 14:06 Type of Consultation: cardiology Referring Provider: NANCY VELA MD 24 HR Interval Summary Subjective hx not possible: other (SOB LESS) Exam/Review of Systems Vital Signs Vitals Vital Signs Date Time Temp Pulse Resp B/P Pulse Ox O2 Delivery O2 Flow Rate FiO2 07/21/16 20:08 60 07/21/16 20:00 98.3 16 129/55 100 07/21/16 08:00 Nasal Cannula 4.0 Intake and Output 07/20/16 07/20/16 07/21/16 15:00 23:00 07:00 Intake Total 550 ml 150 ml Output Total 800 ml 200 ml Balance -250 ml -50 ml Exam Respiratory: diminished breath sounds Cardiovascular: regular rate and rhythm Gastrointestinal: bowel sounds (+), soft Extremities: edema (+) Results Result Diagram: 07/21/16 0735 07/21/16 0755 Results 24 hrs Laboratory Tests Test 07/21/16 07:35 07/21/16 07:55 07/21/16 08:16 07/21/16 10:19 Basophils # 0.0 Basophils % 0.8 Blood Morphology Comment Eosinophils # 0.0 Eosinophils % 0.9 Hematocrit 39.2 L Hemoglobin 12.4 L Lymphocytes # 0.6 L Lymphocytes % 10.9 L Mean Corpuscular Hemoglobin 25.9 L Mean Corpuscular Hemoglobin Concent 31.5 L Mean Corpuscular Volume 82.2 Mean Platelet Volume 8.8 Monocytes # 0.6 Monocytes % 11.7 H Neutrophils # 4.0 Neutrophils % 75.7 Nucleated Red Blood Cells # 0.0 Nucleated Red Blood Cells % 0.0 Platelet Count 252 Red Blood Count 4.77 Red Cell Distribution Width 22.6 H White Blood Count 5.4 Anion Gap 18 H Blood Urea Nitrogen 46 H Calcium Level 8.5 Carbon Dioxide Level 32 H Chloride Level 88 L Creatinine 1.59 H Glucose Level 91 Potassium Level 4.3 Sodium Level 134 L Bedside Glucose 101 Lab Scanned Report REFERENCE LAB Test 07/21/16 12:18 07/21/16 17:15 07/21/16 20:17 Bedside Glucose 118 137 134 Medications Medications Current Medications Apixaban (Eliquis) 2.5 mg BID PO Last administered on 07/21/16 20:19; Admin Dose 2.5 MG; Start 07/18/16 at 21:00 Aspirin (Halfprin) 81 mg DAILY PO Last administered on 07/21/16 08:25; Admin Dose 81 MG; Start 07/19/16 at 09:00 Lisinopril (Zestril) 2.5 mg DAILY PO Last administered on 07/21/16 08:26; Admin Dose 2.5 MG; Start 07/19/16 at 09:00 Nitroglycerin (Nitroglycerin (Sl Tab) 0.4 Mg) 1 tab DAILY PRN SL CHEST PAIN; Start 07/18/16 at 15:30 Sucralfate (Carafate) 1 gm QID PO Last administered on 07/21/16 20:19; Admin Dose 1 GM; Start 07/18/16 at 17:00 Pantoprazole (Protonix Tab) 40 mg DAILY@06 PO Last administered on 07/21/16 06 :30; Admin Dose 40 MG; Start 07/19/16 at 06:00 Ondansetron HCl (Zofran Inj) 4 mg Q6H PRN IV NAUSEA AND/OR VOMITING; Start at 15:30 Acetaminophen (Tylenol Tab) 650 mg Q6H PRN PO PAIN LEVEL 1-3 OR FEVER Last administered on 07/21/16 17:14; Admin Dose 650 MG; Start 07/18/16 at 15:30 Acetaminophen (Tylenol Supp) 650 mg Q6H PRN [place] PAIN LEVEL 1-3 OR FEVER; Start 07/18/16 at 15:30 Acetaminophen/ Hydrocodone Bitart ([place] (5/325)) 1 tab Q6H PRN PO MODERATE PAIN LEVEL 4-6 Last administered on 07/21/16 20:20; Admin Dose 1 TAB; Start at 15:30 Acetaminophen/ Hydrocodone Bitart ([place] (5/325)) 2 tab Q6H PRN PO SEVERE PAIN LEVEL 7-10; Start 07/18/16 at 15:30 Morphine Sulfate (morphine) 2 mg Q4H PRN IV SEVERE PAIN LEVEL 7-10 Last administered on 07/21/16 03:56; Admin Dose 2 MG; Start 07/18/16 at 15:30 Docusate Sodium (Colace) 100 mg Q12H PRN PO CONSTIPATION Last administered on 20:19; Admin Dose 100 MG; Start 07/18/16 at 15:30 Magnesium Hydroxide (Milk Of Mag) 30 ml DAILY PRN PO CONSTIPATION Last administered on 07/20/16 17:30; Admin Dose 30 ML; Start 07/18/16 at 15:30 Bisacodyl (Dulcolax Supp) 10 mg DAILY PRN [place] CONSTIPATION; Start 07/18/16 at 15 :30 Miscellaneous Information 1 ea NOTE XX ; Start 07/18/16 at 17:30 Glucose (Glutose) 15 gm Q15M PRN PO DECREASED GLUCOSE; Start 07/18/16 at 17:30 Glucose (Glutose) 22.5 gm Q15M PRN PO DECREASED GLUCOSE; Start 07/18/16 at 17: 30 Dextrose (D50w Syringe) 25 ml Q15M PRN IV DECREASED GLUCOSE; Start 07/18/16 at 17:30 Dextrose (D50w Syringe) 50 ml Q15M PRN IV DECREASED GLUCOSE; Start 07/18/16 at 17:30 Glucagon (Glucagen) 1 mg Q15M PRN IM DECREASED GLUCOSE; Start 07/18/16 at 17:30 Glucose (Glutose) 15 gm Q15M PRN BUCCAL DECREASED GLUCOSE; Start 07/18/16 at 17 :30 Guaifenesin/ Codeine Phosphate (Robitussin Ac Liquid Cup) 10 ml Q4H PRN PO COUGH Last administered on 07/19/16 19:43; Admin Dose 10 ML; Start 07/18/16 at 23:30 Amiodarone HCl (Cordarone) 200 mg DAILY PO Last administered on 07/21/16 08:25 ; Admin Dose 200 MG; Start 07/20/16 at 09:00 Carvedilol (Coreg) 6.25 mg BID PO Last administered on 07/21/16 20:20; Admin Dose 6.25 MG; Start 07/19/16 at 21:00 YANIRA HART MD Jul 21, 2016 20:51
[2016-07-22] VITALS (12 sets, daily range): BP systolic 114–130; BP diastolic 55–65; PULSE 60; RESP 15–18
[2016-07-22] MEDS: morphine 2 MG INJ IV PRN (04:03)
[2016-07-22] MEDS: PANTOPRAZOLE (EC) 40 MG TAB PO SCH (06:41)
[2016-07-22] MEDS: FUROSEMIDE 20 MG INJ IV SCH (06:42)
--- NOTE | 2016-07-22 07:34 | RADRPT ---
PROCEDURE: XR Chest. CLINICAL INDICATION: Shortness of breath, CHF TECHNIQUE: An AP view of the chest was obtained. COMPARISON: Chest x-ray dated 07/18/2016 FINDINGS: There is a left subclavian single lead AICD. There is prominence of the interstitial and central pulmonary vascular markings with small bilatera l pleural effusions. No focal airspace opacification or pneumothorax is seen. The cardiomediastin al silhouette is moderately enlarged. Calcifications are seen within the aortic arch. There are post cardiac surgery changes with sternotomy wires and mediastinal clips. The osseous structures demonst rate senescent changes. IMPRESSION: 1. Findings suggestive of pulmonary vascular congestion with small bilateral pleural effusions. Fi ndings are mildly increased when compared to the prior examination. 2. Moderate cardiomegaly and aortic atherosclerosis. 3. Left subclavian single lead AICD. RPTAT: HH .Nica Sweet MD, MD Date Time Electronically viewed and signed by .Nica Sweet MD, on 07/22/2016 07:34 .G/
[2016-07-22 07:44] LABS: POTASSIUM 4.9 mmol/L (3.5-5.1)
[2016-07-22 07:45] LABS: CREATININE 1.67 mg/dl (0.61-1.24)
[2016-07-22] MEDS: INSULIN ASPART [NOVOLOG] 3 ML PEN SC SCH ×4 (07:55→20:20)
[2016-07-22] MEDS: metFORMIN 500 MG TAB PO SCH ×2 (08:25→18:12)
[2016-07-22 09:47] LABS: BASOPHILS % 0.1 % (0.0-2.0); EOSINOPHILS # 0.1 10^3/ul (0.0-0.5); HEMATOCRIT 41.4 % (42.0-52.0); HEMOGLOBIN 13.2 g/dl (14.0-18.0); LYMPHOCYTES # 0.9 10^3/ul (0.8-2.9); LYMPHOCYTES % 15.1 % (15.0-51.0); MEAN CORPUSCULAR HEMOGLOBIN 26.3 pg (29.0-33.0); MEAN CORPUSCULAR HGB CONC 31.9 g/dl (32.0-37.0); MEAN CORPUSCULAR VOLUME 82.5 fl (82.0-101.0); MONOCYTE # 0.7 10^3/ul (0.3-0.9); MONOCYTES % 12.1 % (0.0-11.0); NEUTROPHIL # 4.2 10^3/ul (1.6-7.5); NEUTROPHILS % 71.7 % (39.0-77.0); PLATELET COUNT 251 10^3/UL (140-440); RED BLOOD COUNT 5.02 10^6/ul (4.70-6.10); RED CELL DISTRIBUTION WIDTH 23.4 % (11.5-14.5); UNCORRECTED WBC 5.9 10^3/ul (4.8-10.8); WHITE BLOOD COUNT 5.9 10^3/ul (4.8-10.8)
[2016-07-22 09:49] LABS: CONDITION 1; LH ANALYZER COMMENTS 1
[2016-07-22] MEDS: ASPIRIN (EC) 81 MG TAB PO SCH (09:53)
[2016-07-22] MEDS: SUCRALFATE 1 GM TAB PO SCH ×4 (09:57→20:37)
[2016-07-22] MEDS: AMIODARONE 200 MG TAB PO SCH (09:57)
[2016-07-22] MEDS: LISINOPRIL 5 MG TAB PO SCH (10:01)
[2016-07-22] MEDS: APIXABAN 5 MG TABLET PO SCH ×2 (10:01→20:38)
--- NOTE | 2016-07-22 10:49 | PN ---
Date/Time of Note Date/Time of Note DATE: 07/22/16 TIME: 10:46 Assessment/Plan VTE Prophylaxis VTE Prophylaxis Intervention: other (eliquis for anticoagulation ) Lines/Catheters IV Catheter Type (from Nrs): Saline Lock Urinary Cath still in place: No Assessment/Plan Assessment/Plan 1. Acute on chronic congestive heart failure. Patient with known systolic dysfunction. on IV lasix 2. 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 Type 2 diabetes. 4. Atrial fibrillation, rate controlled 5. History of CAD status post CABG 6. Acute on likely chronic kidney disease 2/2 cardiorenal syndorme Plan Bp stable Repeat CXR today showed worsening CHF, cadiologist/nephrologis to address lasix dose will keep pt in telemetry floor pt is on Eliquis for atrial fibrillation , for anticoagulation Subjective 24 Hr Interval Summary Free Text/Dictation pt still SOB off oxygen Bp stable, Cr slightly high CXR showed worsening CHF Exam/Review of Systems Vital Signs Vitals Vital Signs Date Time Temp Pulse Resp B/P Pulse Ox O2 Delivery O2 Flow Rate FiO2 07/22/16 08:06 60 07/22/16 07:59 98.0 18 130/62 98 07/21/16 20:15 Nasal Cannula 4.0 Intake and Output 07/21/16 07/21/16 07/22/16 15:00 23:00 07:00 Intake Total 500 ml 250 ml Balance 500 ml 250 ml Exam Neck: Supple nontender, no JVD Cardiac: [S1, S2 auscultated, regular rhythm and rate] Pulmonary: Coarse lung sounds auscultated bilaterally with diminished lung bases GI: [Abdomen soft nontender nondistended, bowel sounds active] Extremities: Edema bilateral lower extremities +2 Results Result Diagram: 07/22/1615 07/22/16 0715 Results 24 hrs Laboratory Tests Test 07/21/16 12:18 07/21/16 17:15 07/21/16 20:17 07/22/16 07:15 Bedside Glucose 118 137 134 Anion Gap 20 H Basophils # 0.0 Basophils % 0.1 Blood Morphology Comment Blood Urea Nitrogen 52 H Calcium Level 9.0 Carbon Dioxide Level 29 Chloride Level 87 L Creatinine 1.67 H Eosinophils # 0.1 Eosinophils % 1.0 Glucose Level 105 Hematocrit 41.4 L Hemoglobin 13.2 L Lymphocytes # 0.9 Lymphocytes % 15.1 Mean Corpuscular Hemoglobin 26.3 L Mean Corpuscular Hemoglobin Concent 31.9 L Mean Corpuscular Volume 82.5 Mean Platelet Volume 9.0 Monocytes # 0.7 Monocytes % 12.1 H Neutrophils # 4.2 Neutrophils % 71.7 Nucleated Red Blood Cells # 0.0 Nucleated Red Blood Cells % 0.0 Platelet Count 251 Potassium Level 4.9 Red Blood Count 5.02 Red Cell Distribution Width 23.4 H Sodium Level 131 L White Blood Count 5.9 Test 07/22/16 08:16 07/22/16 08:22 Lab Scanned Report REFERENCE LAB Bedside Glucose 112 Medications Medications Current Medications Apixaban (Eliquis) 2.5 mg BID PO Last administered on 07/22/16 10:01; Admin Dose 2.5 MG; Start 07/18/16 at 21:00 Aspirin (Halfprin) 81 mg DAILY PO Last administered on 07/22/16 09:53; Admin Dose 81 MG; Start 07/19/16 at 09:00 Lisinopril (Zestril) 2.5 mg DAILY PO Last administered on 07/22/16 10:01; Admin Dose 2.5 MG; Start 07/19/16 at 09:00 Nitroglycerin (Nitroglycerin (Sl Tab) 0.4 Mg) 1 tab DAILY PRN SL CHEST PAIN; Start 07/18/16 at 15:30 Sucralfate (Carafate) 1 gm QID PO Last administered on 07/22/16 09:57; Admin Dose 1 GM; Start 07/18/16 at 17:00 Pantoprazole (Protonix Tab) 40 mg DAILY@06 PO Last administered on 07/22/16 06 :41; Admin Dose 40 MG; Start 07/19/16 at 06:00 Ondansetron HCl (Zofran Inj) 4 mg Q6H PRN IV NAUSEA AND/OR VOMITING; Start at 15:30 Acetaminophen (Tylenol Tab) 650 mg Q6H PRN PO PAIN LEVEL 1-3 OR FEVER Last administered on 07/21/16 17:14; Admin Dose 650 MG; Start 07/18/16 at 15:30 Acetaminophen (Tylenol Supp) 650 mg Q6H PRN [place] PAIN LEVEL 1-3 OR FEVER; Start 07/18/16 at 15:30 Acetaminophen/ Hydrocodone Bitart ([place] (5/325)) 1 tab Q6H PRN PO MODERATE PAIN LEVEL 4-6 Last administered on 07/21/16 20:20; Admin Dose 1 TAB; Start at 15:30 Acetaminophen/ Hydrocodone Bitart ([place] (5/325)) 2 tab Q6H PRN PO SEVERE PAIN LEVEL 7-10; Start 07/18/16 at 15:30 Morphine Sulfate (morphine) 2 mg Q4H PRN IV SEVERE PAIN LEVEL 7-10 Last administered on 07/22/16 04:03; Admin Dose 2 MG; Start 07/18/16 at 15:30 Docusate Sodium (Colace) 100 mg Q12H PRN PO CONSTIPATION Last administered on 20:19; Admin Dose 100 MG; Start 07/18/16 at 15:30 Magnesium Hydroxide (Milk Of Mag) 30 ml DAILY PRN PO CONSTIPATION Last administered on 07/20/16 17:30; Admin Dose 30 ML; Start 07/18/16 at 15:30 Bisacodyl (Dulcolax Supp) 10 mg DAILY PRN [place] CONSTIPATION; Start 07/18/16 at 15 :30 Miscellaneous Information 1 ea NOTE XX ; Start 07/18/16 at 17:30 Glucose (Glutose) 15 gm Q15M PRN PO DECREASED GLUCOSE; Start 07/18/16 at 17:30 Glucose (Glutose) 22.5 gm Q15M PRN PO DECREASED GLUCOSE; Start 07/18/16 at 17: 30 Dextrose (D50w Syringe) 25 ml Q15M PRN IV DECREASED GLUCOSE; Start 07/18/16 at 17:30 Dextrose (D50w Syringe) 50 ml Q15M PRN IV DECREASED GLUCOSE; Start 07/18/16 at 17:30 Glucagon (Glucagen) 1 mg Q15M PRN IM DECREASED GLUCOSE; Start 07/18/16 at 17:30 Glucose (Glutose) 15 gm Q15M PRN BUCCAL DECREASED GLUCOSE; Start 07/18/16 at 17 :30 Guaifenesin/ Codeine Phosphate (Robitussin Ac Liquid Cup) 10 ml Q4H PRN PO COUGH Last administered on 07/19/16 19:43; Admin Dose 10 ML; Start 07/18/16 at 23:30 Amiodarone HCl (Cordarone) 200 mg DAILY PO Last administered on 07/22/16 09:57 ; Admin Dose 200 MG; Start 07/20/16 at 09:00 Carvedilol (Coreg) 6.25 mg BID PO Last administered on 07/22/16 09:56; Admin Dose 6.25 MG; Start 07/19/16 at 21:00 STEPHAN MARES MD Jul 22, 2016 10:49
[2016-07-22 11:47] LABS: AADO2 Arterial 44.8 mmHg (7.0-24.0); Arterial Base Excess 2.7 mmol/L (-3.0-3); Arterial COHb 0.7 % (0.0-3.0); Arterial Fraction of Oxyhgb 97.5 % (93.0-99.0); Arterial HCO3 28.7 mmol/L (22.0-26.0); Arterial MetHb 0.4 % (0.0-1.5); Arterial Total Hemglobin 14.3 g/dl (12.0-18.0); MODE NASAL CANNULA
--- NOTE | 2016-07-22 13:51 | CONS ---
Date/Time of Note Date/Time of Note DATE: 07/22/16 TIME: 13:47 Assessment/Plan Assessment/Plan Chief Complaint/Hosp Course IMPRESSION: 1. Congestive heart failure exacerbation, systolic, acute on chronic.-negative troponin x 3. EF 25% by most recent echo-worsening 2. Shortness of breath secondary to #1. 3. History of coronary artery bypass graft surgery. Assess for acute coronary syndrome. 4. Abnormal electrocardiogram . Assess for acute coronary syndrome.-negative troponin x3 5. History of paroxysmal atrial fibrillation, on apixaban and amiodarone. 6. Acute renal failure-worsening 7. Hypertension, under reasonable control. 8. Anemia, mild. 9. Coagulopathy secondary to apixaban. Rec: -tele -serial ecg's -Continue coreg/zestril -Continue asa/apixaban for now -Follow volume status and renal fxn closely on lasix diuresis which I will slightly increase due to worseing failure by cxr -s/p dose of IV digoxin to increase contractility Problems: Consultation Date/Type/Reason Admit Date/Time Jul 18, 2016 at 14:06 Initial Consult Date 07/19/2016 Type of Consultation: cardiology Reason for Consultation CHF Referring Provider: NANCY VELA MD Exam/Review of Systems Vital Signs Vitals Vital Signs Date Time Temp Pulse Resp B/P Pulse Ox O2 Delivery O2 Flow Rate FiO2 07/22/16 12:31 98.0 60 18 130/58 98 07/22/16 08:00 Nasal Cannula 4.0 Intake and Output 07/21/16 07/21/16 07/22/16 15:00 23:00 07:00 Intake Total 500 ml 250 ml Balance 500 ml 250 ml Exam Review of Systems: CONSTITUTIONAL: No fevers, chills. PULMONARY: No sob CARDIOVASCULAR: No chest pain/palpitations GASTROINTESTINAL: No nausea/vomiting. GENITOURINARY: No hematuria/dysuria. MUSCULOSKELETAL: No myagias/arthalgias. PSYCHIATRIC: The patient denies depression. NEUROLOGIC: No weakness Constitutional: alert, oriented Psych: no complaints Head: normocephalic ENMT: mucosa pink and moist Neck: jvd, supple Respiratory: diminished breath sounds Cardiovascular: regular rate and rhythm Gastrointestinal: non-tender, soft Extremities: edema (none) Neurological: other (No focal deficits) Results Result Diagram: 07/22/16 0715 07/22/16 0715 Results 24 hrs Laboratory Tests Test 07/21/16 17:15 07/21/16 20:17 07/22/16 07:15 07/22/16 08:16 Bedside Glucose 137 134 Anion Gap 20 H Basophils # 0.0 Basophils % 0.1 Blood Morphology Comment Blood Urea Nitrogen 52 H Calcium Level 9.0 Carbon Dioxide Level 29 Chloride Level 87 L Creatinine 1.67 H Eosinophils # 0.1 Eosinophils % 1.0 Glucose Level 105 Hematocrit 41.4 L Hemoglobin 13.2 L Lymphocytes # 0.9 Lymphocytes % 15.1 Mean Corpuscular Hemoglobin 26.3 L Mean Corpuscular Hemoglobin Concent 31.9 L Mean Corpuscular Volume 82.5 Mean Platelet Volume 9.0 Monocytes # 0.7 Monocytes % 12.1 H Neutrophils # 4.2 Neutrophils % 71.7 Nucleated Red Blood Cells # 0.0 Nucleated Red Blood Cells % 0.0 Platelet Count 251 Potassium Level 4.9 Red Blood Count 5.02 Red Cell Distribution Width 23.4 H Sodium Level 131 L White Blood Count 5.9 Lab Scanned Report REFERENCE LAB Test 07/22/16 08:22 07/22/16 11:10 07/22/16 12:15 Bedside Glucose 112 112 Arterial Blood HCO3 28.7 H Arterial Blood Base Excess 2.7 Arterial Blood Oxygen Saturation 98.6 Sebastien Test N/A Arterial Blood Gas Puncture Site Right Brachial Arterial Blood Carboxyhemoglobin 0.7 Arterial Blood Date Drawn 07/22/2016 11:40:41 AM Arterial Blood Methemoglobin 0.4 Arterial Blood pCO2 (Temp correct) 49.8 H Arterial Blood pH (Temp corrected) 7.379 Arterial Blood pO2 (Temp corrected) 132.4 H Blood Gas A-a O2 Differential 44.8 H Blood Gas Modality NASAL CANNULA Blood Gas Notified Time 07/22/2016 11:47:28 AM Blood Gas Notified Whom TM Blood Gas Specimen Source Blood arterial Blood Gas Temperature 37.0 FiO2 33.0 Oxyhemoglobin Percent 97.5 Total Hemoglobin 14.3 Medications Medications Current Medications Apixaban (Eliquis) 2.5 mg BID PO Last administered on 07/22/16 10:01; Admin Dose 2.5 MG; Start 07/18/16 at 21:00 Aspirin (Halfprin) 81 mg DAILY PO Last administered on 07/22/16 09:53; Admin Dose 81 MG; Start 07/19/16 at 09:00 Lisinopril (Zestril) 2.5 mg DAILY PO Last administered on 07/22/16 10:01; Admin Dose 2.5 MG; Start 07/19/16 at 09:00 Nitroglycerin (Nitroglycerin (Sl Tab) 0.4 Mg) 1 tab DAILY PRN SL CHEST PAIN; Start 07/18/16 at 15:30 Sucralfate (Carafate) 1 gm QID PO Last administered on 07/22/16 12:10; Admin Dose 1 GM; Start 07/18/16 at 17:00 Pantoprazole (Protonix Tab) 40 mg DAILY@06 PO Last administered on 07/22/16 06 :41; Admin Dose 40 MG; Start 07/19/16 at 06:00 Ondansetron HCl (Zofran Inj) 4 mg Q6H PRN IV NAUSEA AND/OR VOMITING; Start at 15:30 Acetaminophen (Tylenol Tab) 650 mg Q6H PRN PO PAIN LEVEL 1-3 OR FEVER Last administered on 07/21/16 17:14; Admin Dose 650 MG; Start 07/18/16 at 15:30 Acetaminophen (Tylenol Supp) 650 mg Q6H PRN [place] PAIN LEVEL 1-3 OR FEVER; Start 07/18/16 at 15:30 Docusate Sodium (Colace) 100 mg Q12H PRN PO CONSTIPATION Last administered on 20:19; Admin Dose 100 MG; Start 07/18/16 at 15:30 Magnesium Hydroxide (Milk Of Mag) 30 ml DAILY PRN PO CONSTIPATION Last administered on 07/20/16 17:30; Admin Dose 30 ML; Start 07/18/16 at 15:30 Bisacodyl (Dulcolax Supp) 10 mg DAILY PRN [place] CONSTIPATION; Start 07/18/16 at 15 :30 Miscellaneous Information 1 ea NOTE XX ; Start 07/18/16 at 17:30 Glucose (Glutose) 15 gm Q15M PRN PO DECREASED GLUCOSE; Start 07/18/16 at 17:30 Glucose (Glutose) 22.5 gm Q15M PRN PO DECREASED GLUCOSE; Start 07/18/16 at 17: 30 Dextrose (D50w Syringe) 25 ml Q15M PRN IV DECREASED GLUCOSE; Start 07/18/16 at 17:30 Dextrose (D50w Syringe) 50 ml Q15M PRN IV DECREASED GLUCOSE; Start 07/18/16 at 17:30 Glucagon (Glucagen) 1 mg Q15M PRN IM DECREASED GLUCOSE; Start 07/18/16 at 17:30 Glucose (Glutose) 15 gm Q15M PRN BUCCAL DECREASED GLUCOSE; Start 07/18/16 at 17 :30 Guaifenesin/ Codeine Phosphate (Robitussin Ac Liquid Cup) 10 ml Q4H PRN PO COUGH Last administered on 07/19/16 19:43; Admin Dose 10 ML; Start 07/18/16 at 23:30 Amiodarone HCl (Cordarone) 200 mg DAILY PO Last administered on 07/22/16 09:57 ; Admin Dose 200 MG; Start 07/20/16 at 09:00 Carvedilol (Coreg) 6.25 mg BID PO Last administered on 07/22/16 09:56; Admin Dose 6.25 MG; Start 07/19/16 at 21:00 Acetaminophen/ Hydrocodone Bitart ([place] (5/325)) 1 tab Q8H PRN PO MODERATE PAIN LEVEL 4-6; Start 07/22/16 at 17:30 POLI SAN Jul 22, 2016 13:51
--- NOTE | 2016-07-22 15:45 | RADRPT ---
Vent Rate: 60 bpm RR Interval: 0 msec MO Interval: 0 msec QRS Duration: 252 msec QT Interval: 516 msec QTC Interval: 516 msec P-R-T [place]: 0 - -51 - 116 degrees Electronic ventricular pacemaker Electronically Signed By: Clement Villarreal [id number]
[2016-07-22] MEDS: FUROSEMIDE 40 MG INJ IV SCH (18:20)
--- NOTE | 2016-07-22 19:31 | CONS ---
Date/Time of Note Date/Time of Note DATE: 07/22/16 TIME: 19:30 Assessment/Plan Assessment/Plan Chief Complaint/Hosp Course 1. Patient has acute on chronic renal failure with acute kidney injury due to systolic heart failure. 2. The patient has hypertension. 3. Anemia. 4. ANEMIA 5. Acute urinary tract infection. 6 LOW EF PLAN CONTINUE LASIX PT/OT Problems: Consultation Date/Type/Reason Admit Date/Time Jul 18, 2016 at 14:06 Type of Consultation: RENAL Referring Provider: NANCY VELA MD 24 HR Interval Summary Constitutional: other (SOB+) Exam/Review of Systems Vital Signs Vitals Vital Signs Date Time Temp Pulse Resp B/P Pulse Ox O2 Delivery O2 Flow Rate FiO2 07/22/16 17:19 60 07/22/16 15:31 98.2 18 130/65 97 07/22/16 08:00 Nasal Cannula 4.0 Intake and Output 07/21/16 07/21/16 07/22/16 15:00 23:00 07:00 Intake Total 500 ml 250 ml Balance 500 ml 250 ml Exam Respiratory: diminished breath sounds Cardiovascular: regular rate and rhythm Gastrointestinal: bowel sounds (+), soft Extremities: edema (+) Results Result Diagram: 07/22/16 0715 07/22/16 0715 Results 24 hrs Laboratory Tests Test 07/21/16 20:17 07/22/16 07:15 07/22/16 08:16 07/22/16 08:22 Bedside Glucose 134 112 Anion Gap 20 H Basophils # 0.0 Basophils % 0.1 Blood Morphology Comment Blood Urea Nitrogen 52 H Calcium Level 9.0 Carbon Dioxide Level 29 Chloride Level 87 L Creatinine 1.67 H Eosinophils # 0.1 Eosinophils % 1.0 Glucose Level 105 Hematocrit 41.4 L Hemoglobin 13.2 L Lymphocytes # 0.9 Lymphocytes % 15.1 Mean Corpuscular Hemoglobin 26.3 L Mean Corpuscular Hemoglobin Concent 31.9 L Mean Corpuscular Volume 82.5 Mean Platelet Volume 9.0 Monocytes # 0.7 Monocytes % 12.1 H Neutrophils # 4.2 Neutrophils % 71.7 Nucleated Red Blood Cells # 0.0 Nucleated Red Blood Cells % 0.0 Platelet Count 251 Potassium Level 4.9 Red Blood Count 5.02 Red Cell Distribution Width 23.4 H Sodium Level 131 L White Blood Count 5.9 Lab Scanned Report REFERENCE LAB Test 07/22/16 11:10 07/22/16 12:15 07/22/16 18:01 Arterial Blood HCO3 28.7 H Arterial Blood Base Excess 2.7 Arterial Blood Oxygen Saturation 98.6 Sebastien Test N/A Arterial Blood Gas Puncture Site Right Brachial Arterial Blood Carboxyhemoglobin 0.7 Arterial Blood Date Drawn 07/22/2016 11:40:41 AM Arterial Blood Methemoglobin 0.4 Arterial Blood pCO2 (Temp correct) 49.8 H Arterial Blood pH (Temp corrected) 7.379 Arterial Blood pO2 (Temp corrected) 132.4 H Blood Gas A-a O2 Differential 44.8 H Blood Gas Modality NASAL CANNULA Blood Gas Notified Time 07/22/2016 11:47:28 AM Blood Gas Notified Whom TM Blood Gas Specimen Source Blood arterial Blood Gas Temperature 37.0 FiO2 33.0 Oxyhemoglobin Percent 97.5 Total Hemoglobin 14.3 Bedside Glucose 112 117 Medications Medications Current Medications Apixaban (Eliquis) 2.5 mg BID PO Last administered on 07/22/16 10:01; Admin Dose 2.5 MG; Start 07/18/16 at 21:00 Aspirin (Halfprin) 81 mg DAILY PO Last administered on 07/22/16 09:53; Admin Dose 81 MG; Start 07/19/16 at 09:00 Lisinopril (Zestril) 2.5 mg DAILY PO Last administered on 07/22/16 10:01; Admin Dose 2.5 MG; Start 07/19/16 at 09:00 Nitroglycerin (Nitroglycerin (Sl Tab) 0.4 Mg) 1 tab DAILY PRN SL CHEST PAIN; Start 07/18/16 at 15:30 Sucralfate (Carafate) 1 gm QID PO Last administered on 07/22/16 18:12; Admin Dose 1 GM; Start 07/18/16 at 17:00 Pantoprazole (Protonix Tab) 40 mg DAILY@06 PO Last administered on 07/22/16 06 :41; Admin Dose 40 MG; Start 07/19/16 at 06:00 Ondansetron HCl (Zofran Inj) 4 mg Q6H PRN IV NAUSEA AND/OR VOMITING; Start at 15:30 Acetaminophen (Tylenol Tab) 650 mg Q6H PRN PO PAIN LEVEL 1-3 OR FEVER Last administered on 07/21/16 17:14; Admin Dose 650 MG; Start 07/18/16 at 15:30 Acetaminophen (Tylenol Supp) 650 mg Q6H PRN [place] PAIN LEVEL 1-3 OR FEVER; Start 07/18/16 at 15:30 Docusate Sodium (Colace) 100 mg Q12H PRN PO CONSTIPATION Last administered on 20:19; Admin Dose 100 MG; Start 07/18/16 at 15:30 Magnesium Hydroxide (Milk Of Mag) 30 ml DAILY PRN PO CONSTIPATION Last administered on 07/20/16 17:30; Admin Dose 30 ML; Start 07/18/16 at 15:30 Bisacodyl (Dulcolax Supp) 10 mg DAILY PRN [place] CONSTIPATION; Start 07/18/16 at 15 :30 Miscellaneous Information 1 ea NOTE XX ; Start 07/18/16 at 17:30 Glucose (Glutose) 15 gm Q15M PRN PO DECREASED GLUCOSE; Start 07/18/16 at 17:30 Glucose (Glutose) 22.5 gm Q15M PRN PO DECREASED GLUCOSE; Start 07/18/16 at 17: 30 Dextrose (D50w Syringe) 25 ml Q15M PRN IV DECREASED GLUCOSE; Start 07/18/16 at 17:30 Dextrose (D50w Syringe) 50 ml Q15M PRN IV DECREASED GLUCOSE; Start 07/18/16 at 17:30 Glucagon (Glucagen) 1 mg Q15M PRN IM DECREASED GLUCOSE; Start 07/18/16 at 17:30 Glucose (Glutose) 15 gm Q15M PRN BUCCAL DECREASED GLUCOSE; Start 07/18/16 at 17 :30 Guaifenesin/ Codeine Phosphate (Robitussin Ac Liquid Cup) 10 ml Q4H PRN PO COUGH Last administered on 07/19/16 19:43; Admin Dose 10 ML; Start 07/18/16 at 23:30 Amiodarone HCl (Cordarone) 200 mg DAILY PO Last administered on 07/22/16 09:57 ; Admin Dose 200 MG; Start 07/20/16 at 09:00 Carvedilol (Coreg) 6.25 mg BID PO Last administered on 07/22/16 09:56; Admin Dose 6.25 MG; Start 07/19/16 at 21:00 Acetaminophen/ Hydrocodone Bitart ([place] (5/325)) 1 tab Q8H PRN PO MODERATE PAIN LEVEL 4-6; Start 07/22/16 at 17:30 YANIRA HART MD Jul 22, 2016 19:31
[2016-07-22] MEDS ORDERED: NALOXONE (0.4 MG/ML) INJ IV ONE (22:08)
[2016-07-23] VITALS (12 sets, daily range): BP systolic 110–136; BP diastolic 49–78; PULSE 59–60; RESP 15–20
[2016-07-23] MEDS: ONDANSETRON 4 MG INJ IV PRN (00:24)
[2016-07-23 05:32] LABS: AADO2 Arterial 50.8 mmHg (7.0-24.0); Allen Test ACCEPTAB; Arterial COHb 0.5 % (0.0-3.0); Arterial Fraction of Oxyhgb 97.3 % (93.0-99.0); Arterial HCO3 28.1 mmol/L (22.0-26.0); Arterial MetHb 0.4 % (0.0-1.5); Arterial Total Hemglobin 14.5 g/dl (12.0-18.0); MODE NASAL CANNULA
[2016-07-23] MEDS: PANTOPRAZOLE (EC) 40 MG TAB PO SCH ×2 (06:00→06:25)
[2016-07-23] MEDS: FUROSEMIDE 40 MG INJ IV SCH ×2 (06:20→18:15)
[2016-07-23 07:15] LABS: POTASSIUM 5.2 mmol/L (3.5-5.1)
[2016-07-23 07:18] LABS: CALCIUM 9.1 mg/dl (8.4-10.2); CREATININE 2.41 mg/dl (0.61-1.24)
[2016-07-23 07:36] LABS: INR 2.67; PROTIME 28.8 Sec (12.2-14.2); PT RATIO 2.3
[2016-07-23 07:37] LABS: PARTIAL THROMBOPLASTIN TIME 51.3 Sec (25.0-35.0)
[2016-07-23 08:03] LABS: BASOPHILS % 0.4 % (0.0-2.0); EOSINOPHILS % 0.2 % (0.0-7.0); HEMATOCRIT 42.8 % (42.0-52.0); HEMOGLOBIN 13.2 g/dl (14.0-18.0); LYMPHOCYTES # 0.6 10^3/ul (0.8-2.9); LYMPHOCYTES % 12.3 % (15.0-51.0); MEAN CORPUSCULAR HEMOGLOBIN 25.7 pg (29.0-33.0); MEAN CORPUSCULAR HGB CONC 30.8 g/dl (32.0-37.0); MEAN CORPUSCULAR VOLUME 83.3 fl (82.0-101.0); MEAN PLATELET VOLUME 10.4 fl (7.4-10.4); MONOCYTE # 0.6 10^3/ul (0.3-0.9); MONOCYTES % 12.3 % (0.0-11.0); NEUTROPHIL # 3.8 10^3/ul (1.6-7.5); NEUTROPHILS % 74.2 % (39.0-77.0); NUCLEATED RED BLOOD CELLS # 0.1 10^3/ul (0.0-0.0); NUCLEATED RED BLOOD CELLS% 1.2 /100WBC (0.0-0.0); PLATELET COUNT 273 10^3/UL (140-415); RED BLOOD COUNT 5.14 10^6/ul (4.70-6.10); RED CELL DISTRIBUTION WIDTH 21.7 % (11.5-14.5); WHITE BLOOD COUNT 5.1 10^3/ul (4.8-10.8)
[2016-07-23] MEDS: AMIODARONE 200 MG TAB PO SCH (08:35)
[2016-07-23] MEDS: LISINOPRIL 5 MG TAB PO SCH (08:36)
[2016-07-23] MEDS: ASPIRIN (EC) 81 MG TAB PO SCH (08:37)
[2016-07-23] MEDS: SUCRALFATE 1 GM TAB PO SCH ×4 (08:37→20:36)
[2016-07-23] MEDS: metFORMIN 500 MG TAB PO SCH (08:37)
[2016-07-23] MEDS: APIXABAN 5 MG TABLET PO SCH ×2 (08:38→20:36)
[2016-07-23] MEDS: INSULIN ASPART [NOVOLOG] 3 ML PEN SC SCH ×4 (08:49→20:37)
--- NOTE | 2016-07-23 10:18 | PN ---
Date/Time of Note Date/Time of Note DATE: 07/23/16 TIME: 10:12 Assessment/Plan VTE Prophylaxis VTE Prophylaxis Intervention: other (eliquis ) Lines/Catheters IV Catheter Type (from Nrs): Saline Lock Urinary Cath still in place: No Assessment/Plan Assessment/Plan 1. Acute on chronic congestive heart failure. Patient with known systolic dysfunction. on IV lasix 2. 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 Type 2 diabetes. 4. Atrial fibrillation, rate controlled 5. History of CAD status post CABG 6. Acute on likely chronic kidney disease 2/2 cardiorenal syndorme 7. pt is lethargic today with worsening renal function Plan pt given narcan yesterday at 10 pm , pt is still lethargic, morphine and [place] has been discontinued yesterday Ammoinia level stat, CT head stat Repeat CXR today showed worsening CHF, lasix has been increased to 40mg IV BID kayexalate 15 gram PO x 1 dose now will keep pt in telemetry floor pt is on Eliquis for atrial fibrillation , for anticoagulation nephrology and Cardiology has been following Subjective 24 Hr Interval Summary Free Text/Dictation Pt still sleepy,lethargic, BUN/Cr getting worse, K slight high Exam/Review of Systems Vital Signs Vitals Vital Signs Date Time Temp Pulse Resp B/P Pulse Ox O2 Delivery O2 Flow Rate FiO2 07/23/16 08:11 59 07/23/16 07:48 98.3 16 116/57 100 07/22/16 20:00 Nasal Cannula 4.0 Intake and Output 07/22/16 07/22/16 07/23/16 15:00 23:00 07:00 Intake Total 700 ml 500 ml Output Total 400 ml Balance 300 ml 500 ml Exam pt lethargic, sleepy, no pain meds given today Neck: Supple Cardiac: [S1, S2 auscultated, regular rhythm and rate] Pulmonary: Coarse lung sounds auscultated bilaterally with diminished lung bases GI: [Abdomen soft nontender nondistended, bowel sounds active] Extremities: Edema bilateral lower extremities +2 Results Result Diagram: 07/23/16 0645 07/23/16 0645 Results 24 hrs Laboratory Tests Test 07/22/16 11:10 07/22/16 12:15 07/22/16 18:01 07/22/16 20:20 Arterial Blood HCO3 28.7 H Arterial Blood Base Excess 2.7 Arterial Blood Oxygen Saturation 98.6 Sebastien Test N/A Arterial Blood Gas Puncture Site Right Brachial Arterial Blood Carboxyhemoglobin 0.7 Arterial Blood Date Drawn 07/22/2016 11:40:41 AM Arterial Blood Methemoglobin 0.4 Arterial Blood pCO2 (Temp correct) 49.8 H Arterial Blood pH (Temp corrected) 7.379 Arterial Blood pO2 (Temp corrected) 132.4 H Blood Gas A-a O2 Differential 44.8 H Blood Gas Modality NASAL CANNULA Blood Gas Notified Time 07/22/2016 11:47:28 AM Blood Gas Notified Whom TM Blood Gas Specimen Source Blood arterial Blood Gas Temperature 37.0 FiO2 33.0 Oxyhemoglobin Percent 97.5 Total Hemoglobin 14.3 Bedside Glucose 112 117 141 Test 07/23/16 05:00 07/23/16 06:45 07/23/16 08:11 Arterial Blood HCO3 28.1 H Arterial Blood Base Excess 2.0 Arterial Blood Oxygen Saturation 98.2 Sebastien Test ACCEPTAB Arterial Blood Gas Puncture Site Left Radial Arterial Blood Carboxyhemoglobin 0.5 Arterial Blood Date Drawn 07/23/2016 5:20:16 AM Arterial Blood Methemoglobin 0.4 Arterial Blood pCO2 (Temp correct) 49.2 H Arterial Blood pH (Temp corrected) 7.374 Arterial Blood pO2 (Temp corrected) 127.1 H Blood Gas A-a O2 Differential 50.8 H Blood Gas Modality NASAL CANNULA Blood Gas Notified Time 07/23/2016 5:31:50 AM Blood Gas Notified Whom MA Blood Gas Specimen Source Blood arterial Blood Gas Temperature 37.0 FiO2 33.0 Oxyhemoglobin Percent 97.3 Total Hemoglobin 14.5 Activated Partial Thromboplast Time 51.3 H Anion Gap 20 H Basophils # 0.0 Basophils % 0.4 Blood Urea Nitrogen 64 H Calcium Level 9.1 Carbon Dioxide Level 30 Chloride Level 87 L Creatinine 2.41 H Eosinophils # 0.0 Eosinophils % 0.2 Glucose Level 106 Hematocrit 42.8 Hemoglobin 13.2 L INR International Normalized Ratio 2.67 Lymphocytes # 0.6 L Lymphocytes % 12.3 L Mean Corpuscular Hemoglobin 25.7 L Mean Corpuscular Hemoglobin Concent 30.8 L Mean Corpuscular Volume 83.3 Mean Platelet Volume 10.4 Monocytes # 0.6 Monocytes % 12.3 H Neutrophils # 3.8 Neutrophils % 74.2 Nucleated Red Blood Cells # 0.1 H Nucleated Red Blood Cells % 1.2 H Platelet Count 273 Potassium Level 5.2 H Prothrombin Time 28.8 #H Prothrombin Time Ratio 2.3 Red Blood Count 5.14 Red Cell Distribution Width 21.7 H Sodium Level 132 L White Blood Count 5.1 Bedside Glucose 143 Medications Medications Current Medications Apixaban (Eliquis) 2.5 mg BID PO Last administered on 07/23/16 08:38; Admin Dose 2.5 MG; Start 07/18/16 at 21:00 Aspirin (Halfprin) 81 mg DAILY PO Last administered on 07/23/16 08:37; Admin Dose 81 MG; Start 07/19/16 at 09:00 Lisinopril (Zestril) 2.5 mg DAILY PO Last administered on 07/23/16 08:36; Admin Dose 2.5 MG; Start 07/19/16 at 09:00 Nitroglycerin (Nitroglycerin (Sl Tab) 0.4 Mg) 1 tab DAILY PRN SL CHEST PAIN; Start 07/18/16 at 15:30 Sucralfate (Carafate) 1 gm QID PO Last administered on 07/23/16 08:37; Admin Dose 1 GM; Start 07/18/16 at 17:00 Pantoprazole (Protonix Tab) 40 mg DAILY@06 PO Last administered on 07/23/16 06 :25; Admin Dose 40 MG; Start 07/19/16 at 06:00 Ondansetron HCl (Zofran Inj) 4 mg Q6H PRN IV NAUSEA AND/OR VOMITING Last administered on 07/23/16 00:24; Admin Dose 4 MG; Start 07/18/16 at 15:30 Acetaminophen (Tylenol Tab) 650 mg Q6H PRN PO PAIN LEVEL 1-3 OR FEVER Last administered on 07/21/16 17:14; Admin Dose 650 MG; Start 07/18/16 at 15:30 Acetaminophen (Tylenol Supp) 650 mg Q6H PRN [place] PAIN LEVEL 1-3 OR FEVER; Start 07/18/16 at 15:30 Docusate Sodium (Colace) 100 mg Q12H PRN PO CONSTIPATION Last administered on 20:19; Admin Dose 100 MG; Start 07/18/16 at 15:30 Magnesium Hydroxide (Milk Of Mag) 30 ml DAILY PRN PO CONSTIPATION Last administered on 07/20/16 17:30; Admin Dose 30 ML; Start 07/18/16 at 15:30 Bisacodyl (Dulcolax Supp) 10 mg DAILY PRN [place] CONSTIPATION; Start 07/18/16 at 15 :30 Miscellaneous Information 1 ea NOTE XX ; Start 07/18/16 at 17:30 Glucose (Glutose) 15 gm Q15M PRN PO DECREASED GLUCOSE; Start 07/18/16 at 17:30 Glucose (Glutose) 22.5 gm Q15M PRN PO DECREASED GLUCOSE; Start 07/18/16 at 17: 30 Dextrose (D50w Syringe) 25 ml Q15M PRN IV DECREASED GLUCOSE; Start 07/18/16 at 17:30 Dextrose (D50w Syringe) 50 ml Q15M PRN IV DECREASED GLUCOSE; Start 07/18/16 at 17:30 Glucagon (Glucagen) 1 mg Q15M PRN IM DECREASED GLUCOSE; Start 07/18/16 at 17:30 Glucose (Glutose) 15 gm Q15M PRN BUCCAL DECREASED GLUCOSE; Start 07/18/16 at 17 :30 Guaifenesin/ Codeine Phosphate (Robitussin Ac Liquid Cup) 10 ml Q4H PRN PO COUGH Last administered on 07/19/16 19:43; Admin Dose 10 ML; Start 07/18/16 at 23:30 Amiodarone HCl (Cordarone) 200 mg DAILY PO Last administered on 07/23/16 08:35 ; Admin Dose 200 MG; Start 07/20/16 at 09:00 Carvedilol (Coreg) 6.25 mg BID PO Last administered on 07/23/16 08:37; Admin Dose 6.25 MG; Start 07/19/16 at 21:00 Acetaminophen/ Hydrocodone Bitart ([place] (5/325)) 1 tab Q8H PRN PO MODERATE PAIN LEVEL 4-6; Start 07/22/16 at 17:30 STEPHAN MARES MD Jul 23, 2016 10:18
[2016-07-23] MEDS ORDERED: NA POLYST SULFON 15 GM/60 ML BTL PO ONE (11:00)
[2016-07-23] MEDS ORDERED: NALOXONE (0.4 MG/ML) INJ IV ONE (11:00)
--- NOTE | 2016-07-23 11:20 | RADRPT ---
PROCEDURE: CT Brain without contrast. CLINICAL INDICATION: Altered level of consciousness. Sleepy. Assess for intracranial hemorrhage . TECHNIQUE: A CT of the brain was performed on a high-resolution CT scanner utilizing a low dose te chnique with axial imaging from the skull base through the vertex without IV contrast. Multiplanar reformatted images were made. Images were reviewed on a PACS workstation. The CTDIvol is 51.1 mGy and the DLP is 511.1 mGycm. One or more of the following dose reduction techniques were used: - Automated exposure control. - Adjustment of the mA and/or kV according to patient size. Use of iterative reconstruction technique. COMPARISON: No. FINDINGS: The fourth ventricle is normal in size. The third and lateral ventricles are moderately dilated wit h proportional sulcal dilatation noted. There are chronic small vessel ischemic changes in the jordyn ventricular white matter tracts adjacent to the lateral ventricles. There are misregistration artif acts on coronal reconstructed images. No intracranial mass or hemorrhage is identified. There is n o evidence of hydrocephalous. There is no evidence of tonsillar herniation. The third and lateral ventricles are normal in size and configuration. The brain parenchyma is normal. The visible portions of the globes and extraocular muscles are normal. The paranasal sinuses are cl ear. The mastoid air cells and internal auditory canals are normal. The bony calvarium is intact. IMPRESSION: 1. There are chronic small vessel ischemic changes in the periventricular white matter tracts adjac ent to the lateral ventricles. 2. There are vascular calcifications in the cavernous and supracavernous portions of the internal c arotid arteries and in the right left vertebral arteries. 3. No intracranial mass or acute intracranial hemorrhage is identified. RPTAT:AAJJ Physician Joselyn Date Time Electronically viewed and signed by Physician Joseyln on 07/23/2016 11:20 TIMOTHY/
--- NOTE | 2016-07-23 12:21 | CONS ---
Date/Time of Note Date/Time of Note DATE: 07/23/16 TIME: 12:17 Assessment/Plan Assessment/Plan Chief Complaint/Hosp Course IMPRESSION: 1. Congestive heart failure exacerbation, systolic, acute on chronic.-negative troponin x 3. EF 25% by most recent echo-worsening 2. Shortness of breath secondary to #1. 3. History of coronary artery bypass graft surgery. Assess for acute coronary syndrome. 4. Abnormal electrocardiogram . Assess for acute coronary syndrome.-negative troponin x3 5. History of paroxysmal atrial fibrillation, on apixaban and amiodarone. 6. Acute renal failure-worsening 7. Hypertension, under reasonable control. 8. Anemia, mild. 9. Coagulopathy secondary to apixaban. Rec: -tele -serial ecg's -Continue coreg/zestril -Continue asa/apixaban for now -Follow volume status and renal fxn closely on lasix diuresis which may need to be reduced given worsenig renal function -s/p dose of IV digoxin to increase contractility Problems: Consultation Date/Type/Reason Admit Date/Time Jul 18, 2016 at 14:06 Initial Consult Date 07/19/2016 Type of Consultation: Cardiology Reason for Consultation CHF Referring Provider: NANCY VELA MD Exam/Review of Systems Vital Signs Vitals Vital Signs Date Time Temp Pulse Resp B/P Pulse Ox O2 Delivery O2 Flow Rate FiO2 07/23/16 12:09 60 07/23/16 11:40 98.2 18 112/56 100 07/22/16 20:00 Nasal Cannula 4.0 Intake and Output 07/22/16 07/22/16 07/23/16 15:00 23:00 07:00 Intake Total 700 ml 500 ml Output Total 400 ml Balance 300 ml 500 ml Exam Review of Systems: CONSTITUTIONAL: No fevers, chills. PULMONARY: No sob CARDIOVASCULAR: No chest pain/palpitations GASTROINTESTINAL: No nausea/vomiting. GENITOURINARY: No hematuria/dysuria. MUSCULOSKELETAL: No myagias/arthalgias. PSYCHIATRIC: The patient denies depression. NEUROLOGIC: No weakness Constitutional: other (lethargic) Head: normocephalic ENMT: mucosa pink and moist Neck: jvd (9 cm water), supple Respiratory: diminished breath sounds (at bases/B) Cardiovascular: regular rate and rhythm Gastrointestinal: non-tender, soft Musculoskeletal: muscle tone (normal) Extremities: other (No focal deficits) Neurological: lethargic Results Result Diagram: 07/23/16 0645 07/23/16 0645 Results 24 hrs Laboratory Tests Test 07/22/16 18:01 07/22/16 20:20 07/23/16 05:00 07/23/16 06:45 Bedside Glucose 117 141 Arterial Blood HCO3 28.1 H Arterial Blood Base Excess 2.0 Arterial Blood Oxygen Saturation 98.2 Sebastien Test ACCEPTAB Arterial Blood Gas Puncture Site Left Radial Arterial Blood Carboxyhemoglobin 0.5 Arterial Blood Date Drawn 07/23/2016 5:20:16 AM Arterial Blood Methemoglobin 0.4 Arterial Blood pCO2 (Temp correct) 49.2 H Arterial Blood pH (Temp corrected) 7.374 Arterial Blood pO2 (Temp corrected) 127.1 H Blood Gas A-a O2 Differential 50.8 H Blood Gas Modality NASAL CANNULA Blood Gas Notified Time 07/23/2016 5:31:50 AM Blood Gas Notified Whom MA Blood Gas Specimen Source Blood arterial Blood Gas Temperature 37.0 FiO2 33.0 Oxyhemoglobin Percent 97.3 Total Hemoglobin 14.5 Activated Partial Thromboplast Time 51.3 H Anion Gap 20 H Basophils # 0.0 Basophils % 0.4 Blood Urea Nitrogen 64 H Calcium Level 9.1 Carbon Dioxide Level 30 Chloride Level 87 L Creatinine 2.41 H Eosinophils # 0.0 Eosinophils % 0.2 Glucose Level 106 Hematocrit 42.8 Hemoglobin 13.2 L INR International Normalized Ratio 2.67 Lymphocytes # 0.6 L Lymphocytes % 12.3 L Mean Corpuscular Hemoglobin 25.7 L Mean Corpuscular Hemoglobin Concent 30.8 L Mean Corpuscular Volume 83.3 Mean Platelet Volume 10.4 Monocytes # 0.6 Monocytes % 12.3 H Neutrophils # 3.8 Neutrophils % 74.2 Nucleated Red Blood Cells # 0.1 H Nucleated Red Blood Cells % 1.2 H Platelet Count 273 Potassium Level 5.2 H Prothrombin Time 28.8 #H Prothrombin Time Ratio 2.3 Red Blood Count 5.14 Red Cell Distribution Width 21.7 H Sodium Level 132 L White Blood Count 5.1 Test 07/23/16 08:11 07/23/16 12:10 Bedside Glucose 143 142 Medications Medications Current Medications Apixaban (Eliquis) 2.5 mg BID PO Last administered on 07/23/16t 08:38; Admin Dose 2.5 MG; Start 07/18/16 at 21:00 Aspirin (Halfprin) 81 mg DAILY PO Last administered on 07/23/16 08:37; Admin Dose 81 MG; Start 07/19/16 at 09:00 Lisinopril (Zestril) 2.5 mg DAILY PO Last administered on 07/23/16 08:36; Admin Dose 2.5 MG; Start 07/19/16 at 09:00 Nitroglycerin (Nitroglycerin (Sl Tab) 0.4 Mg) 1 tab DAILY PRN SL CHEST PAIN; Start 07/18/16 at 15:30 Sucralfate (Carafate) 1 gm QID PO Last administered on 07/23/16 12:13; Admin Dose 1 GM; Start 07/18/16 at 17:00 Pantoprazole (Protonix Tab) 40 mg DAILY@06 PO Last administered on 07/23/16 06 :25; Admin Dose 40 MG; Start 07/19/16 at 06:00 Ondansetron HCl (Zofran Inj) 4 mg Q6H PRN IV NAUSEA AND/OR VOMITING Last administered on 07/23/16 00:24; Admin Dose 4 MG; Start 07/18/16 at 15:30 Acetaminophen (Tylenol Tab) 650 mg Q6H PRN PO PAIN LEVEL 1-3 OR FEVER Last administered on 07/21/16 17:14; Admin Dose 650 MG; Start 07/18/16 at 15:30 Acetaminophen (Tylenol Supp) 650 mg Q6H PRN [place] PAIN LEVEL 1-3 OR FEVER; Start 07/18/16 at 15:30 Docusate Sodium (Colace) 100 mg Q12H PRN PO CONSTIPATION Last administered on 20:19; Admin Dose 100 MG; Start 07/18/16 at 15:30 Magnesium Hydroxide (Milk Of Mag) 30 ml DAILY PRN PO CONSTIPATION Last administered on 07/20/16 17:30; Admin Dose 30 ML; Start 07/18/16 at 15:30 Bisacodyl (Dulcolax Supp) 10 mg DAILY PRN [place] CONSTIPATION; Start 07/18/16 at 15 :30 Miscellaneous Information 1 ea NOTE XX ; Start 07/18/16 at 17:30 Glucose (Glutose) 15 gm Q15M PRN PO DECREASED GLUCOSE; Start 07/18/16 at 17:30 Glucose (Glutose) 22.5 gm Q15M PRN PO DECREASED GLUCOSE; Start 07/18/16 at 17: 30 Dextrose (D50w Syringe) 25 ml Q15M PRN IV DECREASED GLUCOSE; Start 07/18/16 at 17:30 Dextrose (D50w Syringe) 50 ml Q15M PRN IV DECREASED GLUCOSE; Start 07/18/16 at 17:30 Glucagon (Glucagen) 1 mg Q15M PRN IM DECREASED GLUCOSE; Start 07/18/16 at 17:30 Glucose (Glutose) 15 gm Q15M PRN BUCCAL DECREASED GLUCOSE; Start 07/18/16 at 17 :30 Guaifenesin/ Codeine Phosphate (Robitussin Ac Liquid Cup) 10 ml Q4H PRN PO COUGH Last administered on 07/19/16 19:43; Admin Dose 10 ML; Start 07/18/16 at 23:30 Amiodarone HCl (Cordarone) 200 mg DAILY PO Last administered on 07/23/16 08:35 ; Admin Dose 200 MG; Start 07/20/16 at 09:00 Carvedilol (Coreg) 6.25 mg BID PO Last administered on 07/23/16 08:37; Admin Dose 6.25 MG; Start 07/19/16 at 21:00 Acetaminophen/ Hydrocodone Bitart ([place] (5/325)) 1 tab Q8H PRN PO MODERATE PAIN LEVEL 4-6; Start 07/22/16 at 17:30 POLI SAN Jul 23, 2016 12:21
--- NOTE | 2016-07-23 20:09 | CONS ---
Date/Time of Note Date/Time of Note DATE: 07/23/16 TIME: 20:08 Assessment/Plan Assessment/Plan Chief Complaint/Hosp Course 1. Patient has acute on chronic renal failure with acute kidney injury due to systolic heart failure. 2. The patient has hypertension. 3. Anemia. 4. ANEMIA 5. Acute urinary tract infection. 6 LOW EF 7 hyperkalemia PLAN CONTINUE LASIX PT/OT dc metformin Problems: Consultation Date/Type/Reason Admit Date/Time Jul 18, 2016 at 14:06 Type of Consultation: renal Referring Provider: NANCY VELA MD 24 HR Interval Summary Constitutional: other (no sob) Exam/Review of Systems Vital Signs Vitals Vital Signs Date Time Temp Pulse Resp B/P Pulse Ox O2 Delivery O2 Flow Rate FiO2 07/23/16 16:12 60 07/23/16 15:36 98.0 18 116/78 98 07/23/16 08:12 Nasal Cannula 4.0 Intake and Output 07/22/16 07/22/16 07/23/16 15:00 23:00 07:00 Intake Total 700 ml 500 ml Output Total 400 ml Balance 300 ml 500 ml Exam Respiratory: diminished breath sounds Cardiovascular: regular rate and rhythm Gastrointestinal: soft Extremities: edema (+) Results Result Diagram: 07/23/16 0645 07/23/16 0645 Results 24 hrs Laboratory Tests Test 07/22/16 20:20 07/23/16 05:00 07/23/16 06:45 07/23/16 08:11 Bedside Glucose 141 143 Arterial Blood HCO3 28.1 H Arterial Blood Base Excess 2.0 Arterial Blood Oxygen Saturation 98.2 Sebastien Test ACCEPTAB Arterial Blood Gas Puncture Site Left Radial Arterial Blood Carboxyhemoglobin 0.5 Arterial Blood Date Drawn 07/23/2016 5:20:16 AM Arterial Blood Methemoglobin 0.4 Arterial Blood pCO2 (Temp correct) 49.2 H Arterial Blood pH (Temp corrected) 7.374 Arterial Blood pO2 (Temp corrected) 127.1 H Blood Gas A-a O2 Differential 50.8 H Blood Gas Modality NASAL CANNULA Blood Gas Notified Time 07/23/2016 5:31:50 AM Blood Gas Notified Whom MA Blood Gas Specimen Source Blood arterial Blood Gas Temperature 37.0 FiO2 33.0 Oxyhemoglobin Percent 97.3 Total Hemoglobin 14.5 Activated Partial Thromboplast Time 51.3 H Anion Gap 20 H Basophils # 0.0 Basophils % 0.4 Blood Urea Nitrogen 64 H Calcium Level 9.1 Carbon Dioxide Level 30 Chloride Level 87 L Creatinine 2.41 H Eosinophils # 0.0 Eosinophils % 0.2 Glucose Level 106 Hematocrit 42.8 Hemoglobin 13.2 L INR International Normalized Ratio 2.67 Lymphocytes # 0.6 L Lymphocytes % 12.3 L Mean Corpuscular Hemoglobin 25.7 L Mean Corpuscular Hemoglobin Concent 30.8 L Mean Corpuscular Volume 83.3 Mean Platelet Volume 10.4 Monocytes # 0.6 Monocytes % 12.3 H Neutrophils # 3.8 Neutrophils % 74.2 Nucleated Red Blood Cells # 0.1 H Nucleated Red Blood Cells % 1.2 H Platelet Count 273 Potassium Level 5.2 H Prothrombin Time 28.8 #H Prothrombin Time Ratio 2.3 Red Blood Count 5.14 Red Cell Distribution Width 21.7 H Sodium Level 132 L White Blood Count 5.1 Test 07/23/16 11:50 07/23/16 12:10 07/23/16 18:12 Ammonia 17 Bedside Glucose 142 148 Medications Medications Current Medications Apixaban (Eliquis) 2.5 mg BID PO Last administered on 07/23/16 08:38; Admin Dose 2.5 MG; Start 07/18/16 at 21:00 Aspirin (Halfprin) 81 mg DAILY PO Last administered on 07/23/16 08:37; Admin Dose 81 MG; Start 07/19/16 at 09:00 Lisinopril (Zestril) 2.5 mg DAILY PO Last administered on 07/23/16 08:36; Admin Dose 2.5 MG; Start 07/19/16 at 09:00 Nitroglycerin (Nitroglycerin (Sl Tab) 0.4 Mg) 1 tab DAILY PRN SL CHEST PAIN; Start 07/18/16 at 15:30 Sucralfate (Carafate) 1 gm QID PO Last administered on 07/23/16 18:14; Admin Dose 1 GM; Start 07/18/16 at 17:00 Pantoprazole (Protonix Tab) 40 mg DAILY@06 PO Last administered on 07/23/16 06 :25; Admin Dose 40 MG; Start 07/19/16 at 06:00 Ondansetron HCl (Zofran Inj) 4 mg Q6H PRN IV NAUSEA AND/OR VOMITING Last administered on 07/23/16 00:24; Admin Dose 4 MG; Start 07/18/16 at 15:30 Acetaminophen (Tylenol Tab) 650 mg Q6H PRN PO PAIN LEVEL 1-3 OR FEVER Last administered on 07/21/16 17:14; Admin Dose 650 MG; Start 07/18/16 at 15:30 Acetaminophen (Tylenol Supp) 650 mg Q6H PRN [place] PAIN LEVEL 1-3 OR FEVER; Start 07/18/16 at 15:30 Docusate Sodium (Colace) 100 mg Q12H PRN PO CONSTIPATION Last administered on 20:19; Admin Dose 100 MG; Start 07/18/16 at 15:30 Magnesium Hydroxide (Milk Of Mag) 30 ml DAILY PRN PO CONSTIPATION Last administered on 07/20/16 17:30; Admin Dose 30 ML; Start 07/18/16 at 15:30 Bisacodyl (Dulcolax Supp) 10 mg DAILY PRN [place] CONSTIPATION; Start 07/18/16 at 15 :30 Miscellaneous Information 1 ea NOTE XX ; Start 07/18/16 at 17:30 Glucose (Glutose) 15 gm Q15M PRN PO DECREASED GLUCOSE; Start 07/18/16 at 17:30 Glucose (Glutose) 22.5 gm Q15M PRN PO DECREASED GLUCOSE; Start 07/18/16 at 17: 30 Dextrose (D50w Syringe) 25 ml Q15M PRN IV DECREASED GLUCOSE; Start 07/18/16 at 17:30 Dextrose (D50w Syringe) 50 ml Q15M PRN IV DECREASED GLUCOSE; Start 07/18/16 at 17:30 Glucagon (Glucagen) 1 mg Q15M PRN IM DECREASED GLUCOSE; Start 07/18/16 at 17:30 Glucose (Glutose) 15 gm Q15M PRN BUCCAL DECREASED GLUCOSE; Start 07/18/16 at 17 :30 Guaifenesin/ Codeine Phosphate (Robitussin Ac Liquid Cup) 10 ml Q4H PRN PO COUGH Last administered on 07/19/16 19:43; Admin Dose 10 ML; Start 07/18/16 at 23:30 Amiodarone HCl (Cordarone) 200 mg DAILY PO Last administered on 07/23/16 08:35 ; Admin Dose 200 MG; Start 07/20/16 at 09:00 Carvedilol (Coreg) 6.25 mg BID PO Last administered on 07/23/16t 08:37; Admin Dose 6.25 MG; Start 07/19/16 at 21:00 Acetaminophen/ Hydrocodone Bitart ([place] (5/325)) 1 tab Q8H PRN PO MODERATE PAIN LEVEL 4-6; Start 07/22/16 at 17:30 YANIRA HART MD Jul 23, 2016 20:09
[2016-07-23] MEDS ORDERED: DIGOXIN 500 MCG INJ IV ONE (23:21)
[2016-07-24] VITALS (12 sets, daily range): BP systolic 108–126; BP diastolic 45–60; PULSE 60–63; RESP 16–20
[2016-07-24] MEDS: PANTOPRAZOLE (EC) 40 MG TAB PO SCH (05:58)
[2016-07-24] MEDS: FUROSEMIDE 40 MG INJ IV SCH (05:59)
[2016-07-24 06:32] LABS: ADD SCAN DIFF NO
[2016-07-24 06:46] LABS: ABNORMAL IP MESSAGE 1; BASOPHILS % 0.1 % (0.0-2.0); EOSINOPHILS # 0.1 10^3/ul (0.0-0.5); EOSINOPHILS % 1.2 % (0.0-7.0); HEMATOCRIT 42.1 % (42.0-52.0); HEMOGLOBIN 12.9 g/dl (14.0-18.0); LYMPHOCYTES # 0.5 10^3/ul (0.8-2.9); LYMPHOCYTES % 5.9 % (15.0-51.0); MEAN CORPUSCULAR HEMOGLOBIN 25.4 pg (29.0-33.0); MEAN CORPUSCULAR HGB CONC 30.6 g/dl (32.0-37.0); MEAN CORPUSCULAR VOLUME 82.9 fl (82.0-101.0); MEAN PLATELET VOLUME 9.9 fl (7.4-10.4); MONOCYTE # 0.8 10^3/ul (0.3-0.9); MONOCYTES % 9.8 % (0.0-11.0); NEUTROPHIL # 7.1 10^3/ul (1.6-7.5); NEUTROPHILS % 82.8 % (39.0-77.0); NUCLEATED RED BLOOD CELLS # 0.1 10^3/ul (0.0-0.0); NUCLEATED RED BLOOD CELLS% 0.9 /100WBC (0.0-0.0); PLATELET COUNT 296 10^3/UL (140-415); RED BLOOD COUNT 5.08 10^6/ul (4.70-6.10); RED CELL DISTRIBUTION WIDTH 21.6 % (11.5-14.5); WHITE BLOOD COUNT 8.6 10^3/ul (4.8-10.8)
[2016-07-24 06:56] LABS: POTASSIUM 4.5 mmol/L (3.5-5.1)
[2016-07-24 06:58] LABS: CREATININE 2.48 mg/dl (0.61-1.24)
[2016-07-24] MEDS: INSULIN ASPART [NOVOLOG] 3 ML PEN SC SCH ×4 (07:55→20:26)
[2016-07-24] MEDS: SUCRALFATE 1 GM TAB PO SCH ×4 (08:11→20:25)
[2016-07-24] MEDS: LISINOPRIL 5 MG TAB PO SCH (08:12)
[2016-07-24] MEDS: ASPIRIN (EC) 81 MG TAB PO SCH (08:12)
[2016-07-24] MEDS: AMIODARONE 200 MG TAB PO SCH (08:12)
[2016-07-24] MEDS: APIXABAN 5 MG TABLET PO SCH ×2 (08:13→20:25)
--- NOTE | 2016-07-24 08:36 | RADRPT ---
PROCEDURE: XR Chest. CLINICAL INDICATION: Shortness of breath TECHNIQUE: Single AP portable chest COMPARISON: 07/22/2016 FINDINGS: Cardiomegaly and sternotomy wires with left single chamber pacemaker in place stable compared to the prior examination. Persistent small pleural effusions and vascular congestion slightly increased c ompared to previous examination. . No focal consolidation No pneumothorax. The osseous structures and soft tissues are unremarkable. IMPRESSION: 1. Persistent mild CHF slightly increased compared to previous examination. No focal consolidation. RPTAT:AAJJ Nano Arce Physician Date Time Electronically viewed and signed by Physician Tamika on 07/24/2016 08:35 ELENO/
--- NOTE | 2016-07-24 11:53 | PN ---
Date/Time of Note Date/Time of Note DATE: 07/24/16 TIME: 11:49 Assessment/Plan VTE Prophylaxis VTE Prophylaxis Intervention: other (Eliquis for antiocoagulation ) Lines/Catheters IV [facility]ter Type (from [facility] Saline Lock Urinary Cath still in place: No Assessment/Plan Assessment/Plan 1. Acute on chronic congestive heart failure. Patient with known systolic dysfunction. on IV lasix 2. 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 Type 2 diabetes. 4. Atrial fibrillation, rate controlled 5. History of CAD status post CABG 6. Acute on likely chronic kidney disease 2/2 cardiorenal syndorme Plan More alert today, cohen catheter Metformin has been stopped yesterday, will stop Lisinopril due to rising creatinine Follow up CXR today showed worsening CHF, on IV lasix 40mg daily will keep pt in telemetry floor pt is on Eliquis for atrial fibrillation , for anticoagulation nephrology and Cardiology has been following Subjective 24 Hr Interval Summary Free Text/Dictation Cr worsenign< CXR showed persistent CHF, BP stable, more alert today Exam/Review of Systems Vital Signs Vitals Vital Signs Date Time Temp Pulse Resp B/P Pulse Ox O2 Delivery O2 Flow Rate FiO2 07/24/16 11:11 97.8 60 20 108/45 100 07/24/16 09:00 Nasal Cannula 4.0 Intake and Output 07/23/16 07/23/16 07/24/16 15:00 23:00 07:00 Intake Total 440 ml 240 ml Balance 440 ml 240 ml Exam more alert today, all pain meds discontinued, Cohen catheter in place Neck: Supple Cardiac: S1, S2 auscultated, regular rhythm and rate Pulmonary: bilateral Basilar crackles, no wheezing GI: Abdomen soft nontender nondistended, bowel sounds active Extremities: Edema bilateral lower extremities +2 Results Result Diagram: 07/24/16 0601 07/24/16 0610 Results 24 hrs Laboratory Tests Test 07/23/16 11:50 07/23/16 12:10 07/23/16 18:12 07/23/16 20:31 Ammonia 17 Bedside Glucose 142 148 140 Test 07/24/16 06:01 07/24/16 06:10 07/24/16 08:07 Basophils # 0.0 Basophils % 0.1 Eosinophils # 0.1 Eosinophils % 1.2 Hematocrit 42.1 Hemoglobin 12.9 L Lymphocytes # 0.5 L Lymphocytes % 5.9 L Mean Corpuscular Hemoglobin 25.4 L Mean Corpuscular Hemoglobin Concent 30.6 L Mean Corpuscular Volume 82.9 Mean Platelet Volume 9.9 Monocytes # 0.8 Monocytes % 9.8 Neutrophils # 7.1 Neutrophils % 82.8 H Nucleated Red Blood Cells # 0.1 H Nucleated Red Blood Cells % 0.9 H Platelet Count 296 Red Blood Count 5.08 Red Cell Distribution Width 21.6 H White Blood Count 8.6 # Anion Gap 20 H Blood Urea Nitrogen 72 H Calcium Level 9.0 Carbon Dioxide Level 31 Chloride Level 89 L Creatinine 2.48 H Glucose Level 117 Potassium Level 4.5 Sodium Level 135 Bedside Glucose 113 Medications Medications Current Medications Apixaban (Eliquis) 2.5 mg BID PO Last administered on 07/24/16 08:13; Admin Dose 2.5 MG; Start 07/18/16 at 21:00 Aspirin (Halfprin) 81 mg DAILY PO Last administered on 07/24/16 08:12; Admin Dose 81 MG; Start 07/19/16 at 09:00 Lisinopril (Zestril) 2.5 mg DAILY PO Last administered on 07/24/16 08:12; Admin Dose 2.5 MG; Start 07/19/16 at 09:00 Nitroglycerin (Nitroglycerin (Sl Tab) 0.4 Mg) 1 tab DAILY PRN SL CHEST PAIN; Start 07/18/16 at 15:30 Sucralfate (Carafate) 1 gm QID PO Last administered on 07/24/16 08:11; Admin Dose 1 GM; Start 07/18/16 at 17:00 Pantoprazole (Protonix Tab) 40 mg DAILY@06 PO Last administered on 07/24/16 05 :58; Admin Dose 40 MG; Start 07/19/16 at 06:00 Ondansetron HCl (Zofran Inj) 4 mg Q6H PRN IV NAUSEA AND/OR VOMITING Last administered on 07/23/16 00:24; Admin Dose 4 MG; Start 07/18/16 at 15:30 Acetaminophen (Tylenol Tab) 650 mg Q6H PRN PO PAIN LEVEL 1-3 OR FEVER Last administered on 07/21/16 17:14; Admin Dose 650 MG; Start 07/18/16 at 15:30 Acetaminophen (Tylenol Supp) 650 mg Q6H PRN [place] PAIN LEVEL 1-3 OR FEVER; Start 07/18/16 at 15:30 Docusate Sodium (Colace) 100 mg Q12H PRN PO CONSTIPATION Last administered on 20:19; Admin Dose 100 MG; Start 07/18/16 at 15:30 Magnesium Hydroxide (Milk Of Mag) 30 ml DAILY PRN PO CONSTIPATION Last administered on 07/20/16 17:30; Admin Dose 30 ML; Start 07/18/16 at 15:30 Bisacodyl (Dulcolax Supp) 10 mg DAILY PRN [place] CONSTIPATION; Start 07/18/16 at 15 :30 Miscellaneous Information 1 ea NOTE XX ; Start 07/18/16 at 17:30 Glucose (Glutose) 15 gm Q15M PRN PO DECREASED GLUCOSE; Start 07/18/16 at 17:30 Glucose (Glutose) 22.5 gm Q15M PRN PO DECREASED GLUCOSE; Start 07/18/16 at 17: 30 Dextrose (D50w Syringe) 25 ml Q15M PRN IV DECREASED GLUCOSE; Start 07/18/16 at 17:30 Dextrose (D50w Syringe) 50 ml Q15M PRN IV DECREASED GLUCOSE; Start 07/18/16 at 17:30 Glucagon (Glucagen) 1 mg Q15M PRN IM DECREASED GLUCOSE; Start 07/18/16 at 17:30 Glucose (Glutose) 15 gm Q15M PRN BUCCAL DECREASED GLUCOSE; Start 07/18/16 at 17 :30 Guaifenesin/ Codeine Phosphate (Robitussin Ac Liquid Cup) 10 ml Q4H PRN PO COUGH Last administered on 07/19/16 19:43; Admin Dose 10 ML; Start 07/18/16 at 23:30 Amiodarone HCl (Cordarone) 200 mg DAILY PO Last administered on 07/24/16 08:12 ; Admin Dose 200 MG; Start 07/20/16 at 09:00 Acetaminophen/ Hydrocodone Bitart ([place] (5/325)) 1 tab Q8H PRN PO MODERATE PAIN LEVEL 4-6; Start 07/22/16 at 17:30 Carvedilol (Coreg) 3.125 mg BID PO Last administered on 07/24/16 08:13; Admin Dose 3.125 MG; Start 07/24/16 at 09:00 Furosemide (Lasix) 40 mg DAILY@06 IV Last administered on 07/24/16 05:59; Admin Dose 40 MG; Start 07/24/16 at 06:00 STEPHAN MARES MD Jul 24, 2016 11:53
--- NOTE | 2016-07-24 12:39 | CONS ---
Date/Time of Note Date/Time of Note DATE: 07/24/16 TIME: 12:37 Assessment/Plan Assessment/Plan Additional Assessment/Plan 1. Congestive heart failure exacerbation, systolic, acute on chronic.-negative troponin x 3. EF 25% by most recent echo-worsening - will optimize fluid status now 2. Shortness of breath secondary to #1- better with diuresuis 3. History of coronary artery bypass graft surgery. Assess for acute coronary syndrome. 4. Abnormal electrocardiogram . Assess for acute coronary syndrome.-negative troponin x3 5. History of paroxysmal atrial fibrillation, on apixaban and amiodarone - in a. fib now, 100% paced 6. Acute renal failure-avoid nephrotoxic meds 7. Hypertension, under reasonable control- con't to follow 8. Anemia, mild. 9. Coagulopathy secondary to apixaban. Consultation Date/Type/Reason Admit Date/Time Jul 18, 2016 at 14:06 Initial Consult Date Type of Consultation: renal Referring Provider: NANCY VELA MD 24 HR Interval Summary Free Text/Dictation NO acute change - BP stable - in reasonable fluid status - paced 100% (in a. fib ) - family at bedside, happy with care ROS: No fever, no chills, no nausea, no vomiting, no diarrhea/constipation No recent weight changes No chest pain, no PND, no orthopnea No dizziness, blurred vision No thirst, no heat or cold intolerance Exam/Review of Systems Vital Signs Vitals Vital Signs Date Time Temp Pulse Resp B/P Pulse Ox O2 Delivery O2 Flow Rate FiO2 07/24/16 12:08 60 07/24/16 11:11 97.8 20 108/45 100 07/24/16 09:00 Nasal Cannula 4.0 Intake and Output 07/23/16 07/23/16 07/24/16 15:00 23:00 07:00 Intake Total 440 ml 240 ml Balance 440 ml 240 ml Exam General: WN/WD/NAD, AOx 1-2 HEENT: Unicetric/atraumatic/EOMI (does not follow commands) NECK: JVD elevated, no thyromegaly Lymph: no lymphadenopathy HEART: regular with no S3, II/ systolic murmur at apex, pacer LUNGS: Coarse sounds ABD: soft, NT, ND, +BS : Intact Neuro: non focal SKIN: chronic changes EXT: trace edema Results Result Diagram: 2/24/17 0601 07/24/16 0610 Results 24 hrs Laboratory Tests Test 07/23/16 18:12 07/23/16 20:31 07/24/16 06:01 07/24/16 06:10 Bedside Glucose 148 140 Basophils # 0.0 Basophils % 0.1 Eosinophils # 0.1 Eosinophils % 1.2 Hematocrit 42.1 Hemoglobin 12.9 L Lymphocytes # 0.5 L Lymphocytes % 5.9 L Mean Corpuscular Hemoglobin 25.4 L Mean Corpuscular Hemoglobin Concent 30.6 L Mean Corpuscular Volume 82.9 Mean Platelet Volume 9.9 Monocytes # 0.8 Monocytes % 9.8 Neutrophils # 7.1 Neutrophils % 82.8 H Nucleated Red Blood Cells # 0.1 H Nucleated Red Blood Cells % 0.9 H Platelet Count 296 Red Blood Count 5.08 Red Cell Distribution Width 21.6 H White Blood Count 8.6 # Anion Gap 20 H Blood Urea Nitrogen 72 H Calcium Level 9.0 Carbon Dioxide Level 31 Chloride Level 89 L Creatinine 2.48 H Glucose Level 117 Potassium Level 4.5 Sodium Level 135 Test 07/24/16 08:07 07/24/16 12:07 Bedside Glucose 113 116 Medications Medications Current Medications Apixaban (Eliquis) 2.5 mg BID PO Last administered on 07/24/16 08:13; Admin Dose 2.5 MG; Start 07/18/16 at 21:00 Aspirin (Halfprin) 81 mg DAILY PO Last administered on 07/24/16 08:12; Admin Dose 81 MG; Start 07/19/16 at 09:00 Nitroglycerin (Nitroglycerin (Sl Tab) 0.4 Mg) 1 tab DAILY PRN SL CHEST PAIN; Start 07/18/16 at 15:30 Sucralfate (Carafate) 1 gm QID PO Last administered on 07/24/16 12:09; Admin Dose 1 GM; Start 07/18/16 at 17:00 Pantoprazole (Protonix Tab) 40 mg DAILY@06 PO Last administered on 07/24/16 05 :58; Admin Dose 40 MG; Start 07/19/16 at 06:00 Ondansetron HCl (Zofran Inj) 4 mg Q6H PRN IV NAUSEA AND/OR VOMITING Last administered on 07/23/16 00:24; Admin Dose 4 MG; Start 07/18/16 at 15:30 Acetaminophen (Tylenol Tab) 650 mg Q6H PRN PO PAIN LEVEL 1-3 OR FEVER Last administered on 07/21/16 17:14; Admin Dose 650 MG; Start 07/18/16 at 15:30 Acetaminophen (Tylenol Supp) 650 mg Q6H PRN [place] PAIN LEVEL 1-3 OR FEVER; Start 07/18/16 at 15:30 Docusate Sodium (Colace) 100 mg Q12H PRN PO CONSTIPATION Last administered on 20:19; Admin Dose 100 MG; Start 07/18/16 at 15:30 Magnesium Hydroxide (Milk Of Mag) 30 ml DAILY PRN PO CONSTIPATION Last administered on 07/20/16 17:30; Admin Dose 30 ML; Start 07/18/16 at 15:30 Bisacodyl (Dulcolax Supp) 10 mg DAILY PRN [place] CONSTIPATION; Start 07/18/16 at 15 :30 Miscellaneous Information 1 ea NOTE XX ; Start 07/18/16 at 17:30 Glucose (Glutose) 15 gm Q15M PRN PO DECREASED GLUCOSE; Start 07/18/16 at 17:30 Glucose (Glutose) 22.5 gm Q15M PRN PO DECREASED GLUCOSE; Start 07/18/16 at 17: 30 Dextrose (D50w Syringe) 25 ml Q15M PRN IV DECREASED GLUCOSE; Start 07/18/16 at 17:30 Dextrose (D50w Syringe) 50 ml Q15M PRN IV DECREASED GLUCOSE; Start 07/18/16 at 17:30 Glucagon (Glucagen) 1 mg Q15M PRN IM DECREASED GLUCOSE; Start 07/18/16 at 17:30 Glucose (Glutose) 15 gm Q15M PRN BUCCAL DECREASED GLUCOSE; Start 07/18/16 at 17 :30 Guaifenesin/ Codeine Phosphate (Robitussin Ac Liquid Cup) 10 ml Q4H PRN PO COUGH Last administered on 07/19/16 19:43; Admin Dose 10 ML; Start 07/18/16 at 23:30 Amiodarone HCl (Cordarone) 200 mg DAILY PO Last administered on 07/24/16 08:12 ; Admin Dose 200 MG; Start 07/20/16 at 09:00 Acetaminophen/ Hydrocodone Bitart ([place] (5/325)) 1 tab Q8H PRN PO MODERATE PAIN LEVEL 4-6; Start 07/22/16 at 17:30 Carvedilol (Coreg) 3.125 mg BID PO Last administered on 07/24/16 08:13; Admin Dose 3.125 MG; Start 07/24/16 at 09:00 Furosemide (Lasix) 40 mg DAILY@06 IV Last administered on 07/24/16 05:59; Admin Dose 40 MG; Start 07/24/16 at 06:00 DODIE OLMSTEAD MD Jul 24, 2016 12:39
--- NOTE | 2016-07-24 22:00 | PN ---
Date/Time of Note Date/Time of Note DATE: 07/24/16 TIME: 21:59 Assessment/Plan VTE Prophylaxis VTE Prophylaxis Intervention: other Lines/Catheters IV [facility] Type (from [facility] Saline Lock Urinary Cath still in place: No Assessment/Plan Chief Complaint/Hosp Course 1. Patient has acute on chronic renal failure with acute kidney injury due to systolic heart failure. 2. The patient has hypertension. 3. Anemia. 4. ANEMIA 5. Acute urinary tract infection. 6 LOW EF 7 hyperkalemia BETTER PLAN CONTINUE LASIX PT/OT Problems: Subjective 24 Hr Interval Summary Cardiovascular: orthopenea (+) Gastrointestinal: no complaints Exam/Review of Systems Vital Signs Vitals Vital Signs Date Time Temp Pulse Resp B/P Pulse Ox O2 Delivery O2 Flow Rate FiO2 07/24/16 20:25 60 07/24/16 20:14 97.3 16 120/57 100 07/24/16 09:00 Nasal Cannula 4.0 Intake and Output 07/23/16 07/23/16 07/24/16 15:00 23:00 07:00 Intake Total 440 ml 240 ml Balance 440 ml 240 ml Exam Neck: supple Respiratory: diminished breath sounds Cardiovascular: regular rate and rhythm Gastrointestinal: soft Musculoskeletal: nl extremities to inspection Extremities: normal pulses Results Result Diagram: 07/24/16 0601 07/24/16 0610 Results 24 hrs Laboratory Tests Test 07/24/16 06:01 07/24/16 06:10 07/24/16 08:07 07/24/16 12:07 Basophils # 0.0 Basophils % 0.1 Eosinophils # 0.1 Eosinophils % 1.2 Hematocrit 42.1 Hemoglobin 12.9 L Lymphocytes # 0.5 L Lymphocytes % 5.9 L Mean Corpuscular Hemoglobin 25.4 L Mean Corpuscular Hemoglobin Concent 30.6 L Mean Corpuscular Volume 82.9 Mean Platelet Volume 9.9 Monocytes # 0.8 Monocytes % 9.8 Neutrophils # 7.1 Neutrophils % 82.8 H Nucleated Red Blood Cells # 0.1 H Nucleated Red Blood Cells % 0.9 H Platelet Count 296 Red Blood Count 5.08 Red Cell Distribution Width 21.6 H White Blood Count 8.6 # Anion Gap 20 H Blood Urea Nitrogen 72 H Calcium Level 9.0 Carbon Dioxide Level 31 Chloride Level 89 L Creatinine 2.48 H Glucose Level 117 Potassium Level 4.5 Sodium Level 135 Bedside Glucose 113 116 Test 07/24/16 17:06 07/24/16 20:14 Bedside Glucose 166 136 Medications Medications Current Medications Apixaban (Eliquis) 2.5 mg BID PO Last administered on 07/24/16 20:25; Admin Dose 2.5 MG; Start 07/18/16 at 21:00 Aspirin (Halfprin) 81 mg DAILY PO Last administered on 07/24/16 08:12; Admin Dose 81 MG; Start 07/19/16 at 09:00 Nitroglycerin (Nitroglycerin (Sl Tab) 0.4 Mg) 1 tab DAILY PRN SL CHEST PAIN; Start 07/18/16 at 15:30 Sucralfate (Carafate) 1 gm QID PO Last administered on 07/24/16 20:25; Admin Dose 1 GM; Start 07/18/16 at 17:00 Pantoprazole (Protonix Tab) 40 mg DAILY@06 PO Last administered on 07/24/16 05 :58; Admin Dose 40 MG; Start 07/19/16 at 06:00 Ondansetron HCl (Zofran Inj) 4 mg Q6H PRN IV NAUSEA AND/OR VOMITING Last administered on 07/23/16 00:24; Admin Dose 4 MG; Start 07/18/16 at 15:30 Acetaminophen (Tylenol Tab) 650 mg Q6H PRN PO PAIN LEVEL 1-3 OR FEVER Last administered on 07/21/16 17:14; Admin Dose 650 MG; Start 07/18/16 at 15:30 Acetaminophen (Tylenol Supp) 650 mg Q6H PRN [place] PAIN LEVEL 1-3 OR FEVER; Start 07/18/16 at 15:30 Docusate Sodium (Colace) 100 mg Q12H PRN PO CONSTIPATION Last administered on 20:19; Admin Dose 100 MG; Start 07/18/16 at 15:30 Magnesium Hydroxide (Milk Of Mag) 30 ml DAILY PRN PO CONSTIPATION Last administered on 07/20/16 17:30; Admin Dose 30 ML; Start 07/18/16 at 15:30 Bisacodyl (Dulcolax Supp) 10 mg DAILY PRN [place] CONSTIPATION; Start 07/18/16 at 15 :30 Miscellaneous Information 1 ea NOTE XX ; Start 07/18/16 at 17:30 Glucose (Glutose) 15 gm Q15M PRN PO DECREASED GLUCOSE; Start 07/18/16 at 17:30 Glucose (Glutose) 22.5 gm Q15M PRN PO DECREASED GLUCOSE; Start 07/18/16 at 17: 30 Dextrose (D50w Syringe) 25 ml Q15M PRN IV DECREASED GLUCOSE; Start 07/18/16 at 17:30 Dextrose (D50w Syringe) 50 ml Q15M PRN IV DECREASED GLUCOSE; Start 07/18/16 at 17:30 Glucagon (Glucagen) 1 mg Q15M PRN IM DECREASED GLUCOSE; Start 07/18/16 at 17:30 Glucose (Glutose) 15 gm Q15M PRN BUCCAL DECREASED GLUCOSE; Start 07/18/16 at 17 :30 Guaifenesin/ Codeine Phosphate (Robitussin Ac Liquid Cup) 10 ml Q4H PRN PO COUGH Last administered on 07/19/16 19:43; Admin Dose 10 ML; Start 07/18/16 at 23:30 Amiodarone HCl (Cordarone) 200 mg DAILY PO Last administered on 07/24/16 08:12 ; Admin Dose 200 MG; Start 07/20/16 at 09:00 Acetaminophen/ Hydrocodone Bitart ([place] (5/325)) 1 tab Q8H PRN PO MODERATE PAIN LEVEL 4-6; Start 07/22/16 at 17:30 Carvedilol (Coreg) 3.125 mg BID PO Last administered on 07/24/16 20:26; Admin Dose 3.125 MG; Start 07/24/16 at 09:00 Furosemide (Lasix) 40 mg DAILY@06 IV Last administered on 07/24/16 05:59; Admin Dose 40 MG; Start 07/24/16 at 06:00 YANIRA HART MD Jul 24, 2016 22:00
[2016-07-24] MEDS: ZOLPIDEM 5 MG TAB PO PRN (22:47)
[2016-07-25] VITALS (13 sets, daily range): BP systolic 110–138; BP diastolic 53–61; PULSE 60; RESP 16–18
[2016-07-25] MEDS: FUROSEMIDE 40 MG INJ IV SCH (05:19)
[2016-07-25] MEDS: PANTOPRAZOLE (EC) 40 MG TAB PO SCH (05:19)
[2016-07-25 07:24] LABS: ALBUMIN 3.4 g/dl (3.3-4.9); POTASSIUM 4.1 mmol/L (3.5-5.1)
[2016-07-25 07:25] LABS: INR 2.22; PROTIME 24.9 Sec (12.2-14.2); PT RATIO 1.9
[2016-07-25 07:26] LABS: CREATININE 1.8 mg/dl (0.61-1.24)
[2016-07-25 07:27] LABS: ALBUMIN/GLOBULIN RATIO 1.41; BILIRUBIN,INDIRECT 0.6 mg/dl (0-1.1); BILIRUBIN,TOTAL 0.6 mg/dl (0.2-1.3); CALCIUM 8.8 mg/dl (8.4-10.2); PARTIAL THROMBOPLASTIN TIME 56.5 Sec (25.0-35.0); TOTAL PROTEIN 5.8 g/dl (6.1-8.1)
[2016-07-25] MEDS: INSULIN ASPART [NOVOLOG] 3 ML PEN SC SCH ×4 (07:55→21:00)
[2016-07-25] MEDS: AMIODARONE 200 MG TAB PO SCH (09:11)
[2016-07-25] MEDS: SUCRALFATE 1 GM TAB PO SCH ×4 (09:11→21:01)
[2016-07-25] MEDS: ASPIRIN (EC) 81 MG TAB PO SCH (09:12)
[2016-07-25] MEDS: APIXABAN 5 MG TABLET PO SCH ×2 (09:12→21:02)
--- NOTE | 2016-07-25 11:57 | PN ---
Date/Time of Note Date/Time of Note DATE: 07/25/16 TIME: 11:55 Assessment/Plan VTE Prophylaxis VTE Prophylaxis Intervention: other (eliquis ) Lines/Catheters [facility] Urinary Cath still in place: No Assessment/Plan Assessment/Plan 1. Acute on chronic congestive heart failure. Patient with known systolic dysfunction. on IV lasix 2. 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 Type 2 diabetes. 4. Atrial fibrillation, rate controlled 5. History of CAD status post CABG 6. Acute on likely chronic kidney disease 2/2 cardiorenal syndorme Plan More alert today, cohen catheter Metformin and lisinopril stopped due to rising creatinine Follow up CXR today showed worsening CHF, on IV lasix 40mg daily will keep pt in telemetry floor pt is on Eliquis for atrial fibrillation , for anticoagulation nephrology and Cardiology has been following Subjective 24 Hr Interval Summary Free Text/Dictation BUN/Cr improving, more alert today Exam/Review of Systems Vital Signs Vitals Vital Signs Date Time Temp Pulse Resp B/P Pulse Ox O2 Delivery O2 Flow Rate FiO2 07/25/16 11:43 98.0 60 18 117/58 100 07/25/16 07:29 Nasal Cannula 4.0 Intake and Output 07/24/16 07/24/16 07/25/16 15:00 23:00 07:00 Intake Total 720 ml 500 ml Output Total 400 ml Balance 720 ml 100 ml Exam pt more alert today, talk to familiy and communicative Neck: Supple Cardiac: [S1, S2 auscultated, regular rhythm and rate] Pulmonary: Coarse lung sounds auscultated bilaterally with diminished lung bases GI: [Abdomen soft nontender nondistended, bowel sounds active] Extremities: Edema bilateral lower extremities +2 Results Result Diagram: 07/24/16 0601 07/25/16 0614 Results 24 hrs Laboratory Tests Test 07/24/16 12:07 07/24/16 17:06 07/24/16 20:14 07/25/16 06:14 Bedside Glucose 116 166 136 Activated Partial Thromboplast Time 56.5 H Alanine Aminotransferase (ALT/SGPT) 35 Albumin 3.4 Albumin/Globulin Ratio 1.41 Alkaline Phosphatase 89 Anion Gap 15 Aspartate Amino Transf (AST/SGOT) 21 Blood Urea Nitrogen 64 H Calcium Level 8.8 Carbon Dioxide Level 35 H Chloride Level 88 L Creatinine 1.80 H Direct Bilirubin 0.00 Globulin 2.40 Glucose Level 87 INR International Normalized Ratio 2.22 Indirect Bilirubin 0.6 Magnesium Level 1.9 Potassium Level 4.1 Prothrombin Time 24.9 H Prothrombin Time Ratio 1.9 Sodium Level 134 L Total Bilirubin 0.6 Total Protein 5.8 L Test 07/25/16 07:55 07/25/16 11:12 Bedside Glucose 97 132 Medications Medications Current Medications Apixaban (Eliquis) 2.5 mg BID PO Last administered on 07/25/16 09:12; Admin Dose 2.5 MG; Start 07/18/16 at 21:00 Aspirin (Halfprin) 81 mg DAILY PO Last administered on 07/25/16 09:12; Admin Dose 81 MG; Start 07/19/16 at 09:00 Nitroglycerin (Nitroglycerin (Sl Tab) 0.4 Mg) 1 tab DAILY PRN SL CHEST PAIN; Start 07/18/16 at 15:30 Sucralfate (Carafate) 1 gm QID PO Last administered on 07/25/16 09:11; Admin Dose 1 GM; Start 07/18/16 at 17:00 Pantoprazole (Protonix Tab) 40 mg DAILY@06 PO Last administered on 07/25/16 05 :19; Admin Dose 40 MG; Start 07/19/16 at 06:00 Ondansetron HCl (Zofran Inj) 4 mg Q6H PRN IV NAUSEA AND/OR VOMITING Last administered on 07/23/16 00:24; Admin Dose 4 MG; Start 07/18/16 at 15:30 Acetaminophen (Tylenol Tab) 650 mg Q6H PRN PO PAIN LEVEL 1-3 OR FEVER Last administered on 07/21/16 17:14; Admin Dose 650 MG; Start 07/18/16 at 15:30 Acetaminophen (Tylenol Supp) 650 mg Q6H PRN [place] PAIN LEVEL 1-3 OR FEVER; Start 07/18/16 at 15:30 Docusate Sodium (Colace) 100 mg Q12H PRN PO CONSTIPATION Last administered on 20:19; Admin Dose 100 MG; Start 07/18/16 at 15:30 Magnesium Hydroxide (Milk Of Mag) 30 ml DAILY PRN PO CONSTIPATION Last administered on 07/20/16 17:30; Admin Dose 30 ML; Start 07/18/16 at 15:30 Bisacodyl (Dulcolax Supp) 10 mg DAILY PRN [place] CONSTIPATION; Start 07/18/16 at 15 :30 Miscellaneous Information 1 ea NOTE XX ; Start 07/18/16 at 17:30 Glucose (Glutose) 15 gm Q15M PRN PO DECREASED GLUCOSE; Start 07/18/16 at 17:30 Glucose (Glutose) 22.5 gm Q15M PRN PO DECREASED GLUCOSE; Start 07/18/16 at 17: 30 Dextrose (D50w Syringe) 25 ml Q15M PRN IV DECREASED GLUCOSE; Start 07/18/16 at 17:30 Dextrose (D50w Syringe) 50 ml Q15M PRN IV DECREASED GLUCOSE; Start 07/18/16 at 17:30 Glucagon (Glucagen) 1 mg Q15M PRN IM DECREASED GLUCOSE; Start 07/18/16 at 17:30 Glucose (Glutose) 15 gm Q15M PRN BUCCAL DECREASED GLUCOSE; Start 07/18/16 at 17 :30 Guaifenesin/ Codeine Phosphate (Robitussin Ac Liquid Cup) 10 ml Q4H PRN PO COUGH Last administered on 07/19/16 19:43; Admin Dose 10 ML; Start 07/18/16 at 23:30 Amiodarone HCl (Cordarone) 200 mg DAILY PO Last administered on 07/25/16 09:11 ; Admin Dose 200 MG; Start 07/20/16 at 09:00 Acetaminophen/ Hydrocodone Bitart ([place] (5/325)) 1 tab Q8H PRN PO MODERATE PAIN LEVEL 4-6; Start 07/22/16 at 17:30 Carvedilol (Coreg) 3.125 mg BID PO Last administered on 07/25/16 09:12; Admin Dose 3.125 MG; Start 07/24/16 at 09:00 Furosemide (Lasix) 40 mg DAILY@06 IV Last administered on 07/25/16 05:19; Admin Dose 40 MG; Start 07/24/16 at 06:00 STEPHAN MARES MD Jul 25, 2016 11:57
--- NOTE | 2016-07-25 12:23 | CONS ---
Date/Time of Note Date/Time of Note DATE: 07/25/16 TIME: 12:22 Assessment/Plan Assessment/Plan Chief Complaint/Hosp Course 1. Patient has acute on chronic renal failure with acute kidney injury due to systolic heart failure. 2. The patient has hypertension. 3. Anemia. 4. ASHD 5. Acute urinary tract infection. 6 LOW EF 7 hyperkalemia BETTER PLAN CONTINUE LASIX PT/OT Problems: Consultation Date/Type/Reason Admit Date/Time Jul 18, 2016 at 14:06 Type of Consultation: renal Referring Provider: NNACY VELA MD 24 HR Interval Summary Constitutional: no complaints Exam/Review of Systems Vital Signs Vitals Vital Signs Date Time Temp Pulse Resp B/P Pulse Ox O2 Delivery O2 Flow Rate FiO2 07/25/16 12:18 60 07/25/16 11:43 98.0 18 117/58 100 07/25/16 07:29 Nasal Cannula 4.0 Intake and Output 07/24/16 07/24/16 07/25/16 15:00 23:00 07:00 Intake Total 720 ml 500 ml Output Total 400 ml Balance 720 ml 100 ml Exam Respiratory: diminished breath sounds Cardiovascular: regular rate and rhythm Gastrointestinal: soft Extremities: edema (+) Results Result Diagram: 07/24/16 0601 07/25/16 0614 Results 24 hrs Laboratory Tests Test 07/24/16 17:06 07/24/16 20:14 07/25/16 06:14 07/25/16 07:55 Bedside Glucose 166 136 97 Activated Partial Thromboplast Time 56.5 H Alanine Aminotransferase (ALT/SGPT) 35 Albumin 3.4 Albumin/Globulin Ratio 1.41 Alkaline Phosphatase 89 Anion Gap 15 Aspartate Amino Transf (AST/SGOT) 21 Blood Urea Nitrogen 64 H Calcium Level 8.8 Carbon Dioxide Level 35 H Chloride Level 88 L Creatinine 1.80 H Direct Bilirubin 0.00 Globulin 2.40 Glucose Level 87 INR International Normalized Ratio 2.22 Indirect Bilirubin 0.6 Magnesium Level 1.9 Potassium Level 4.1 Prothrombin Time 24.9 H Prothrombin Time Ratio 1.9 Sodium Level 134 L Total Bilirubin 0.6 Total Protein 5.8 L Test 07/25/16 11:12 Bedside Glucose 132 Medications Medications Current Medications Apixaban (Eliquis) 2.5 mg BID PO Last administered on 07/25/16t 09:12; Admin Dose 2.5 MG; Start 07/18/16 at 21:00 Aspirin (Halfprin) 81 mg DAILY PO Last administered on 07/25/16 09:12; Admin Dose 81 MG; Start 07/19/16 at 09:00 Nitroglycerin (Nitroglycerin (Sl Tab) 0.4 Mg) 1 tab DAILY PRN [place] CHEST PAIN; Start 07/18/16 at 15:30 Sucralfate (Carafate) 1 gm QID PO Last administered on 07/25/16 12:08; Admin Dose 1 GM; Start 07/18/16 at 17:00 Pantoprazole (Protonix Tab) 40 mg DAILY@06 PO Last administered on 07/25/16 05 :19; Admin Dose 40 MG; Start 07/19/16 at 06:00 Ondansetron HCl (Zofran Inj) 4 mg Q6H PRN IV NAUSEA AND/OR VOMITING Last administered on 07/23/16 00:24; Admin Dose 4 MG; Start 07/18/16 at 15:30 Acetaminophen (Tylenol Tab) 650 mg Q6H PRN PO PAIN LEVEL 1-3 OR FEVER Last administered on 07/21/16 17:14; Admin Dose 650 MG; Start 07/18/16 at 15:30 Acetaminophen (Tylenol Supp) 650 mg Q6H PRN [place] PAIN LEVEL 1-3 OR FEVER; Start 07/18/16 at 15:30 Docusate Sodium (Colace) 100 mg Q12H PRN PO CONSTIPATION Last administered on 20:19; Admin Dose 100 MG; Start 07/18/16 at 15:30 Magnesium Hydroxide (Milk Of Mag) 30 ml DAILY PRN PO CONSTIPATION Last administered on 07/20/16 17:30; Admin Dose 30 ML; Start 07/18/16 at 15:30 Bisacodyl (Dulcolax Supp) 10 mg DAILY PRN [place] CONSTIPATION; Start 07/18/16 at 15 :30 Miscellaneous Information 1 ea NOTE XX ; Start 07/18/16 at 17:30 Glucose (Glutose) 15 gm Q15M PRN PO DECREASED GLUCOSE; Start 07/18/16 at 17:30 Glucose (Glutose) 22.5 gm Q15M PRN PO DECREASED GLUCOSE; Start 07/18/16 at 17: 30 Dextrose (D50w Syringe) 25 ml Q15M PRN IV DECREASED GLUCOSE; Start 07/18/16 at 17:30 Dextrose (D50w Syringe) 50 ml Q15M PRN IV DECREASED GLUCOSE; Start 07/18/16 at 17:30 Glucagon (Glucagen) 1 mg Q15M PRN IM DECREASED GLUCOSE; Start 07/18/16 at 17:30 Glucose (Glutose) 15 gm Q15M PRN BUCCAL DECREASED GLUCOSE; Start 07/18/16 at 17 :30 Guaifenesin/ Codeine Phosphate (Robitussin Ac Liquid Cup) 10 ml Q4H PRN PO COUGH Last administered on 07/19/16 19:43; Admin Dose 10 ML; Start 07/18/16 at 23:30 Amiodarone HCl (Cordarone) 200 mg DAILY PO Last administered on 07/25/16 09:11 ; Admin Dose 200 MG; Start 07/20/16 at 09:00 Acetaminophen/ Hydrocodone Bitart ([place] (5/325)) 1 tab Q8H PRN PO MODERATE PAIN LEVEL 4-6; Start 07/22/16 at 17:30 Carvedilol (Coreg) 3.125 mg BID PO Last administered on 07/25/16 09:12; Admin Dose 3.125 MG; Start 07/24/16 at 09:00 Furosemide (Lasix) 40 mg DAILY@06 IV Last administered on 07/25/16 05:19; Admin Dose 40 MG; Start 07/24/16 at 06:00 YANIRA HART MD Jul 25, 2016 12:23
--- NOTE | 2016-07-25 14:54 | CONS ---
Date/Time of Note Date/Time of Note DATE: 07/25/16 TIME: 14:52 Assessment/Plan Assessment/Plan Additional Assessment/Plan 1. Congestive heart failure exacerbation, systolic, acute on chronic.-negative troponin x 3. EF 25% by most recent echo-worsening - will optimize fluid status now- better overall. 2. Shortness of breath secondary to #1- better with diuresuis 3. History of coronary artery bypass graft surgery. Assess for acute coronary syndrome. No intervention planned now. 4. Abnormal electrocardiogram . Assess for acute coronary syndrome.-negative troponin x3 5. History of paroxysmal atrial fibrillation, on apixaban and amiodarone - in a. fib now, 100% paced - SAME ON TELE 6. Acute renal failure-avoid nephrotoxic meds 7. Hypertension, under reasonable control- con't to follow 8. Anemia, mild. 9. Coagulopathy secondary to apixaban. Consultation Date/Type/Reason Admit Date/Time Jul 18, 2016 at 14:06 Type of Consultation: renal Referring Provider: NANCY VELA MD 24 HR Interval Summary Free Text/Dictation No acute change - better fluid status - a. fib, 100% paced ROS: No fever, no chills, no nausea, no vomiting, no diarrhea/constipation No recent weight changes No chest pain, no PND, no orthopnea No dizziness, blurred vision No thirst, no heat or cold intolerance Exam/Review of Systems Vital Signs Vitals Vital Signs Date Time Temp Pulse Resp B/P Pulse Ox O2 Delivery O2 Flow Rate FiO2 07/25/16 12:18 60 07/25/16 11:43 98.0 18 117/58 100 07/25/16 07:29 Nasal Cannula 4.0 Intake and Output 07/24/16 07/24/16 07/25/16 15:00 23:00 07:00 Intake Total 720 ml 500 ml Output Total 400 ml Balance 720 ml 100 ml Exam General: WN/WD/NAD, AOx 1-2 English HEENT: Unicetric/atraumatic/EOMI (follow commands) NECK: JVD elevated, no thyromegaly Lymph: no lymphadenopathy HEART: regular with no S3, II/ systolic murmur at apex (paced) LUNGS: Coarse sounds ABD: soft, NT, ND, +BS : Intact Neuro: non focal SKIN: chronic changes EXT: trace edema Results Result Diagram: 07/24/16 0601 07/25/16 0614 Results 24 hrs Laboratory Tests Test 07/24/16 17:06 07/24/16 20:14 07/25/16 06:14 07/25/16 07:55 Bedside Glucose 166 136 97 Activated Partial Thromboplast Time 56.5 H Alanine Aminotransferase (ALT/SGPT) 35 Albumin 3.4 Albumin/Globulin Ratio 1.41 Alkaline Phosphatase 89 Anion Gap 15 Aspartate Amino Transf (AST/SGOT) 21 Blood Urea Nitrogen 64 H Calcium Level 8.8 Carbon Dioxide Level 35 H Chloride Level 88 L Creatinine 1.80 H Direct Bilirubin 0.00 Globulin 2.40 Glucose Level 87 INR International Normalized Ratio 2.22 Indirect Bilirubin 0.6 Magnesium Level 1.9 Potassium Level 4.1 Prothrombin Time 24.9 H Prothrombin Time Ratio 1.9 Sodium Level 134 L Total Bilirubin 0.6 Total Protein 5.8 L Test 07/25/16 11:12 Bedside Glucose 132 Medications Medications Current Medications Apixaban (Eliquis) 2.5 mg BID PO Last administered on 07/25/16 09:12; Admin Dose 2.5 MG; Start 07/18/16 at 21:00 Aspirin (Halfprin) 81 mg DAILY PO Last administered on 07/25/16 09:12; Admin Dose 81 MG; Start 07/19/16 at 09:00 Nitroglycerin (Nitroglycerin (Sl Tab) 0.4 Mg) 1 tab DAILY PRN [place] CHEST PAIN; Start 07/18/16 at 15:30 Sucralfate (Carafate) 1 gm QID PO Last administered on 07/25/16 12:08; Admin Dose 1 GM; Start 07/18/16 at 17:00 Pantoprazole (Protonix Tab) 40 mg DAILY@06 PO Last administered on 07/25/16 05 :19; Admin Dose 40 MG; Start 07/19/16 at 06:00 Ondansetron HCl (Zofran Inj) 4 mg Q6H PRN IV NAUSEA AND/OR VOMITING Last administered on 07/23/16 00:24; Admin Dose 4 MG; Start 07/18/16 at 15:30 Acetaminophen (Tylenol Tab) 650 mg Q6H PRN PO PAIN LEVEL 1-3 OR FEVER Last administered on 07/21/16 17:14; Admin Dose 650 MG; Start 07/18/16 at 15:30 Acetaminophen (Tylenol Supp) 650 mg Q6H PRN [place] PAIN LEVEL 1-3 OR FEVER; Start 07/18/16 at 15:30 Docusate Sodium (Colace) 100 mg Q12H PRN PO CONSTIPATION Last administered on 20:19; Admin Dose 100 MG; Start 07/18/16 at 15:30 Magnesium Hydroxide (Milk Of Mag) 30 ml DAILY PRN PO CONSTIPATION Last administered on 07/20/16 17:30; Admin Dose 30 ML; Start 07/18/16 at 15:30 Bisacodyl (Dulcolax Supp) 10 mg DAILY PRN [place] CONSTIPATION; Start 07/18/16 at 15 :30 Miscellaneous Information 1 ea NOTE XX ; Start 07/18/16 at 17:30 Glucose (Glutose) 15 gm Q15M PRN PO DECREASED GLUCOSE; Start 07/18/16 at 17:30 Glucose (Glutose) 22.5 gm Q15M PRN PO DECREASED GLUCOSE; Start 07/18/16 at 17: 30 Dextrose (D50w Syringe) 25 ml Q15M PRN IV DECREASED GLUCOSE; Start 07/18/16 at 17:30 Dextrose (D50w Syringe) 50 ml Q15M PRN IV DECREASED GLUCOSE; Start 07/18/16 at 17:30 Glucagon (Glucagen) 1 mg Q15M PRN IM DECREASED GLUCOSE; Start 07/18/16 at 17:30 Glucose (Glutose) 15 gm Q15M PRN BUCCAL DECREASED GLUCOSE; Start 07/18/16 at 17 :30 Guaifenesin/ Codeine Phosphate (Robitussin Ac Liquid Cup) 10 ml Q4H PRN PO COUGH Last administered on 07/19/16 19:43; Admin Dose 10 ML; Start 07/18/16 at 23:30 Amiodarone HCl (Cordarone) 200 mg DAILY PO Last administered on 07/25/16 09:11 ; Admin Dose 200 MG; Start 07/20/16 at 09:00 Acetaminophen/ Hydrocodone Bitart ([place] (5/325)) 1 tab Q8H PRN PO MODERATE PAIN LEVEL 4-6; Start 07/22/16 at 17:30 Carvedilol (Coreg) 3.125 mg BID PO Last administered on 07/25/16 09:12; Admin Dose 3.125 MG; Start 07/24/16 at 09:00 Furosemide (Lasix) 40 mg DAILY@06 IV Last administered on 07/25/16t 05:19; Admin Dose 40 MG; Start 07/24/16 at 06:00 DODIE OLMSTEAD MD Jul 25, 2016 14:54
[2016-07-25] MEDS: ACETAMINOPHEN 325 MG TAB PO PRN (15:50)
[2016-07-25] MEDS: HYDROCODONE/APAP (5/325) TAB PO PRN (21:02)
[2016-07-26] VITALS (12 sets, daily range): BP systolic 109–134; BP diastolic 52–80; PULSE 60–63; RESP 16–18
[2016-07-26] MEDS: FUROSEMIDE 40 MG INJ IV SCH (06:05)
[2016-07-26] MEDS: PANTOPRAZOLE (EC) 40 MG TAB PO SCH (06:06)
[2016-07-26 07:43] LABS: POTASSIUM 4.2 mmol/L (3.5-5.1)
[2016-07-26 07:45] LABS: CREATININE 1.51 mg/dl (0.61-1.24)
[2016-07-26 07:46] LABS: CALCIUM 9.1 mg/dl (8.4-10.2)
[2016-07-26] MEDS: INSULIN ASPART [NOVOLOG] 3 ML PEN SC SCH ×4 (07:55→21:00)
[2016-07-26] MEDS: ASPIRIN (EC) 81 MG TAB PO SCH (08:46)
[2016-07-26] MEDS: APIXABAN 5 MG TABLET PO SCH ×2 (08:46→21:21)
[2016-07-26] MEDS: SUCRALFATE 1 GM TAB PO SCH ×4 (08:46→21:21)
[2016-07-26] MEDS: AMIODARONE 200 MG TAB PO SCH (08:47)
--- NOTE | 2016-07-26 10:53 | PN ---
Date/Time of Note Date/Time of Note DATE: 07/26/16 TIME: 10:49 Assessment/Plan VTE Prophylaxis VTE Prophylaxis Intervention: other (Eliquis ) Lines/Catheters IV [facility] Urinary Cath still in place: No Assessment/Plan Assessment/Plan 1. Acute on chronic congestive heart failure. Patient with known systolic dysfunction. on IV lasix 2. 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 Type 2 diabetes. 4. Atrial fibrillation, rate controlled 5. History of CAD status post CABG 6. Acute on likely chronic kidney disease 2/2 cardiorenal syndorme Plan codom catheter in place, Metformin and lisinopril stopped due to rising creatinine 2 days before, now BUN /Cr improving, but HCO3 high , on lasix 40mg IV daiyl, will hold off on lasix dose until CXR result tomorrow AM out of bed to chair BID, Speech consult will keep pt in telemetry floor pt is on Eliquis for atrial fibrillation , for anticoagulation nephrology and Cardiology has been following Subjective 24 Hr Interval Summary Free Text/Dictation pt BP stable, more awake, BUN/cr improving, HCo3 high, on lasix 40mg IV daily , Exam/Review of Systems Vital Signs Vitals Vital Signs Date Time Temp Pulse Resp B/P Pulse Ox O2 Delivery O2 Flow Rate FiO2 07/26/16 10:12 Nasal Cannula 4.0 07/26/16 08:12 60 07/26/16 07:20 98.2 18 119/80 98 Intake and Output 07/25/16 07/25/16 07/26/16 15:00 23:00 07:00 Intake Total 500 ml 300 ml Output Total 1300 ml 600 ml Balance -800 ml -300 ml Exam pt eats 25% of food, more sleepy Neck: Supple Cardiac: [S1, S2 auscultated, regular rhythm and rate] Pulmonary: Coarse lung sounds auscultated bilaterally with diminished lung bases GI: [Abdomen soft nontender nondistended, bowel sounds active] Extremities: Edema bilateral lower extremities +2 Results Result Diagram: 07/24/16 0601 07/26/16 0610 Results 24 hrs Laboratory Tests Test 07/25/16 11:12 07/25/16 17:09 07/25/16 20:37 07/26/16 01:57 Bedside Glucose 132 141 143 123 Test 07/26/16 06:10 07/26/16 07:32 Anion Gap 14 Blood Urea Nitrogen 59 H Calcium Level 9.1 Carbon Dioxide Level 38 H Chloride Level 86 L Creatinine 1.51 H Glucose Level 95 Potassium Level 4.2 Sodium Level 134 L Bedside Glucose 117 Medications Medications Current Medications Apixaban (Eliquis) 2.5 mg BID PO Last administered on 07/26/16 08:46; Admin Dose 2.5 MG; Start 07/18/16 at 21:00 Aspirin (Halfprin) 81 mg DAILY PO Last administered on 07/26/16 08:46; Admin Dose 81 MG; Start 07/19/16 at 09:00 Nitroglycerin (Nitroglycerin (Sl Tab) 0.4 Mg) 1 tab DAILY PRN SL CHEST PAIN; Start 07/18/16 at 15:30 Sucralfate (Carafate) 1 gm QID PO Last administered on 07/26/16 08:46; Admin Dose 1 GM; Start 07/18/16 at 17:00 Pantoprazole (Protonix Tab) 40 mg DAILY@06 PO Last administered on 07/26/16 06 :06; Admin Dose 40 MG; Start 07/19/16 at 06:00 Ondansetron HCl (Zofran Inj) 4 mg Q6H PRN IV NAUSEA AND/OR VOMITING Last administered on 07/23/16 00:24; Admin Dose 4 MG; Start 07/18/16 at 15:30 Acetaminophen (Tylenol Tab) 650 mg Q6H PRN PO PAIN LEVEL 1-3 OR FEVER Last administered on 07/25/16 15:50; Admin Dose 650 MG; Start 07/18/16 at 15:30 Acetaminophen (Tylenol Supp) 650 mg Q6H PRN [place] PAIN LEVEL 1-3 OR FEVER; Start 07/18/16 at 15:30 Docusate Sodium (Colace) 100 mg Q12H PRN PO CONSTIPATION Last administered on 20:19; Admin Dose 100 MG; Start 07/18/16 at 15:30 Magnesium Hydroxide (Milk Of Mag) 30 ml DAILY PRN PO CONSTIPATION Last administered on 07/20/16 17:30; Admin Dose 30 ML; Start 07/18/16 at 15:30 Bisacodyl (Dulcolax Supp) 10 mg DAILY PRN [place] CONSTIPATION; Start 07/18/16 at 15 :30 Miscellaneous Information 1 ea NOTE XX ; Start 07/18/16 at 17:30 Glucose (Glutose) 15 gm Q15M PRN PO DECREASED GLUCOSE; Start 07/18/16 at 17:30 Glucose (Glutose) 22.5 gm Q15M PRN PO DECREASED GLUCOSE; Start 07/18/16 at 17: 30 Dextrose (D50w Syringe) 25 ml Q15M PRN IV DECREASED GLUCOSE; Start 07/18/16 at 17:30 Dextrose (D50w Syringe) 50 ml Q15M PRN IV DECREASED GLUCOSE; Start 07/18/16 at 17:30 Glucagon (Glucagen) 1 mg Q15M PRN IM DECREASED GLUCOSE; Start 07/18/16 at 17:30 Glucose (Glutose) 15 gm Q15M PRN BUCCAL DECREASED GLUCOSE; Start 07/18/16 at 17 :30 Guaifenesin/ Codeine Phosphate (Robitussin Ac Liquid Cup) 10 ml Q4H PRN PO COUGH Last administered on 07/19/16 19:43; Admin Dose 10 ML; Start 07/18/16 at 23:30 Amiodarone HCl (Cordarone) 200 mg DAILY PO Last administered on 07/26/16 08:47 ; Admin Dose 200 MG; Start 07/20/16 at 09:00 Acetaminophen/ Hydrocodone Bitart ([place] (5/325)) 1 tab Q8H PRN PO MODERATE PAIN LEVEL 4-6 Last administered on 07/25/16 21:02; Admin Dose 1 TAB; Start at 17:30 Carvedilol (Coreg) 3.125 mg BID PO Last administered on 07/26/16 08:47; Admin Dose 3.125 MG; Start 07/24/16 at 09:00 Furosemide (Lasix) 40 mg DAILY@06 IV Last administered on 07/26/16 06:05; Admin Dose 40 MG; Start 07/24/16 at 06:00 STEPHAN MARES MD Jul 26, 2016 10:53
[2016-07-26] MEDS ORDERED: BARIUM SULF 2% 450 ML BTL (BERRY SMOOTHIE) PO ONE (12:00)
--- NOTE | 2016-07-26 13:46 | CONS ---
Date/Time of Note Date/Time of Note DATE: 07/26/16 TIME: 13:44 Assessment/Plan Assessment/Plan Chief Complaint/Hosp Course 1. Patient has acute on chronic renal failure with acute kidney injury due to systolic heart failure.better 2. The patient has hypertension. 3. Anemia. 4. ASHD 5. Acute urinary tract infection. 6 LOW EF 7 hyperkalemia BETTER PLAN CONTINUE LASIX PT/OT renal stable Problems: Consultation Date/Type/Reason Admit Date/Time Jul 18, 2016 at 14:06 Type of Consultation: renal Referring Provider: NANCY VELA MD 24 HR Interval Summary Constitutional: other (no distress) Exam/Review of Systems Vital Signs Vitals Vital Signs Date Time Temp Pulse Resp B/P Pulse Ox O2 Delivery O2 Flow Rate FiO2 07/26/16 12:29 63 07/26/16 11:52 98.0 18 121/52 100 07/26/16 10:12 Nasal Cannula 4.0 Intake and Output 07/25/16 07/25/16 07/26/16 14:59 22:59 06:59 Intake Total 500 ml 300 ml Output Total 1300 ml 600 ml Balance -800 ml -300 ml Exam Respiratory: diminished breath sounds Cardiovascular: regular rate and rhythm Gastrointestinal: soft Musculoskeletal: nl extremities to inspection Extremities: normal pulses Results Result Diagram: 07/24/16 0601 07/26/16 0610 Results 24 hrs Laboratory Tests Test 07/25/16 17:09 07/25/16 20:37 07/26/16 01:57 07/26/16 06:10 Bedside Glucose 141 143 123 Anion Gap 14 Blood Urea Nitrogen 59 H Calcium Level 9.1 Carbon Dioxide Level 38 H Chloride Level 86 L Creatinine 1.51 H Glucose Level 95 Potassium Level 4.2 Sodium Level 134 L Test 07/26/16 07:32 07/26/16 11:45 Bedside Glucose 117 139 Medications Medications Current Medications Apixaban (Eliquis) 2.5 mg BID PO Last administered on 07/26/16 08:46; Admin Dose 2.5 MG; Start 07/18/16 at 21:00 Aspirin (Halfprin) 81 mg DAILY PO Last administered on 07/26/16 08:46; Admin Dose 81 MG; Start 07/19/16 at 09:00 Nitroglycerin (Nitroglycerin (Sl Tab) 0.4 Mg) 1 tab DAILY PRN SL CHEST PAIN; Start 07/18/16 at 15:30 Sucralfate (Carafate) 1 gm QID PO Last administered on 07/26/16 08:46; Admin Dose 1 GM; Start 07/18/16 at 17:00 Pantoprazole (Protonix Tab) 40 mg DAILY@06 PO Last administered on 07/26/16 06 :06; Admin Dose 40 MG; Start 07/19/16 at 06:00 Ondansetron HCl (Zofran Inj) 4 mg Q6H PRN IV NAUSEA AND/OR VOMITING Last administered on 07/23/16 00:24; Admin Dose 4 MG; Start 07/18/16 at 15:30 Acetaminophen (Tylenol Tab) 650 mg Q6H PRN PO PAIN LEVEL 1-3 OR FEVER Last administered on 07/25/16 15:50; Admin Dose 650 MG; Start 07/18/16 at 15:30 Acetaminophen (Tylenol Supp) 650 mg Q6H PRN [place] PAIN LEVEL 1-3 OR FEVER; Start 07/18/16 at 15:30 Docusate Sodium (Colace) 100 mg Q12H PRN PO CONSTIPATION Last administered on 20:19; Admin Dose 100 MG; Start 07/18/16 at 15:30 Magnesium Hydroxide (Milk Of Mag) 30 ml DAILY PRN PO CONSTIPATION Last administered on 07/20/16 17:30; Admin Dose 30 ML; Start 07/18/16 at 15:30 Bisacodyl (Dulcolax Supp) 10 mg DAILY PRN [place] CONSTIPATION; Start 07/18/16 at 15 :30 Miscellaneous Information 1 ea NOTE XX ; Start 07/18/16 at 17:30 Glucose (Glutose) 15 gm Q15M PRN PO DECREASED GLUCOSE; Start 07/18/16 at 17:30 Glucose (Glutose) 22.5 gm Q15M PRN PO DECREASED GLUCOSE; Start 07/18/16 at 17: 30 Dextrose (D50w Syringe) 25 ml Q15M PRN IV DECREASED GLUCOSE; Start 07/18/16 at 17:30 Dextrose (D50w Syringe) 50 ml Q15M PRN IV DECREASED GLUCOSE; Start 07/18/16 at 17:30 Glucagon (Glucagen) 1 mg Q15M PRN IM DECREASED GLUCOSE; Start 07/18/16 at 17:30 Glucose (Glutose) 15 gm Q15M PRN BUCCAL DECREASED GLUCOSE; Start 07/18/16 at 17 :30 Guaifenesin/ Codeine Phosphate (Robitussin Ac Liquid Cup) 10 ml Q4H PRN PO COUGH Last administered on 07/19/16 19:43; Admin Dose 10 ML; Start 07/18/16 at 23:30 Amiodarone HCl (Cordarone) 200 mg DAILY PO Last administered on 07/26/16 08:47 ; Admin Dose 200 MG; Start 07/20/16 at 09:00 Acetaminophen/ Hydrocodone Bitart ([place] (5/325)) 1 tab Q8H PRN PO MODERATE PAIN LEVEL 4-6 Last administered on 07/25/16 21:02; Admin Dose 1 TAB; Start at 17:30 Carvedilol (Coreg) 3.125 mg BID PO Last administered on 07/26/16 08:47; Admin Dose 3.125 MG; Start 07/24/16 at 09:00 Furosemide (Lasix) 40 mg DAILY@06 IV Last administered on 07/26/16 06:05; Admin Dose 40 MG; Start 07/24/16 at 06:00; Status Future Hold YANIRA HART MD Jul 26, 2016 13:45
--- NOTE | 2016-07-26 14:35 | CONS ---
Date/Time of Note Date/Time of Note DATE: 07/26/16 TIME: 14:33 Assessment/Plan Assessment/Plan Additional Assessment/Plan 1. Congestive heart failure exacerbation, systolic, acute on chronic.-negative troponin x 3. EF 25% by most recent echo-worsening - will optimize fluid status now- better overall. 2. Shortness of breath secondary to #1- better with diuresuis 3. History of coronary artery bypass graft surgery. Assess for acute coronary syndrome. No intervention planned now. NO CP now. 4. Abnormal electrocardiogram . Assess for acute coronary syndrome.-negative troponin x3 - no significant ectopy on tele. 5. History of paroxysmal atrial fibrillation, on apixaban and amiodarone - in a. fib now, 100% paced - SAME ON TELE 6. Acute renal failure-avoid nephrotoxic meds 7. Hypertension, under reasonable control- con't to follow - CAREY NOw. 8. Anemia, mild. 9. Coagulopathy secondary to apixaban. Consultation Date/Type/Reason Admit Date/Time Jul 18, 2016 at 14:06 Type of Consultation: renal Referring Provider: NANCY VELA MD 24 HR Interval Summary Free Text/Dictation No acute change - BP stable - doubt active ischemia. Con't med Rx. ROS: No fever, no chills, no nausea, no vomiting, no diarrhea/constipation No recent weight changes No chest pain, no PND, no orthopnea No dizziness, blurred vision No thirst, no heat or cold intolerance (decreased SOB) Exam/Review of Systems Vital Signs Vitals Vital Signs Date Time Temp Pulse Resp B/P Pulse Ox O2 Delivery O2 Flow Rate FiO2 07/26/16 12:29 63 07/26/16 11:52 98.0 18 121/52 100 07/26/16 10:12 Nasal Cannula 4.0 Intake and Output 07/25/16 07/25/16 07/26/16 15:00 23:00 07:00 Intake Total 500 ml 300 ml Output Total 1300 ml 600 ml Balance -800 ml -300 ml Exam General: WN/WD/NAD, AO x 0 -1 HEENT: Unicetric/atraumatic/EOMI (does not follow commands) NECK: JVD elevated, no thyromegaly Lymph: no lymphadenopathy HEART: regular with no S3, II/ systolic murmur at apex, h/o CABG LUNGS: Coarse sounds ABD: soft, NT, ND, +BS : Intact Neuro: non focal SKIN: chronic changes EXT: trace edema Results Result Diagram: 07/24/16 0601 07/26/16 0610 Results 24 hrs Laboratory Tests Test 07/25/16 17:09 07/25/16 20:37 07/26/16 01:57 07/26/16 06:10 Bedside Glucose 141 143 123 Anion Gap 14 Blood Urea Nitrogen 59 H Calcium Level 9.1 Carbon Dioxide Level 38 H Chloride Level 86 L Creatinine 1.51 H Glucose Level 95 Potassium Level 4.2 Sodium Level 134 L Test 07/26/16 07:32 07/26/16 11:45 Bedside Glucose 117 139 Medications Medications Current Medications Apixaban (Eliquis) 2.5 mg BID PO Last administered on 07/26/16 08:46; Admin Dose 2.5 MG; Start 07/18/16 at 21:00 Aspirin (Halfprin) 81 mg DAILY PO Last administered on 07/26/16 08:46; Admin Dose 81 MG; Start 07/19/16 at 09:00 Nitroglycerin (Nitroglycerin (Sl Tab) 0.4 Mg) 1 tab DAILY PRN SL CHEST PAIN; Start 07/18/16 at 15:30 Sucralfate (Carafate) 1 gm QID PO Last administered on 07/26/16 08:46; Admin Dose 1 GM; Start 07/18/16 at 17:00 Pantoprazole (Protonix Tab) 40 mg DAILY@06 PO Last administered on 07/26/16 06 :06; Admin Dose 40 MG; Start 07/19/16 at 06:00 Ondansetron HCl (Zofran Inj) 4 mg Q6H PRN IV NAUSEA AND/OR VOMITING Last administered on 07/23/16 00:24; Admin Dose 4 MG; Start 07/18/16 at 15:30 Acetaminophen (Tylenol Tab) 650 mg Q6H PRN PO PAIN LEVEL 1-3 OR FEVER Last administered on 07/25/16 15:50; Admin Dose 650 MG; Start 07/18/16 at 15:30 Acetaminophen (Tylenol Supp) 650 mg Q6H PRN [place] PAIN LEVEL 1-3 OR FEVER; Start 07/18/16 at 15:30 Docusate Sodium (Colace) 100 mg Q12H PRN PO CONSTIPATION Last administered on 20:19; Admin Dose 100 MG; Start 07/18/16 at 15:30 Magnesium Hydroxide (Milk Of Mag) 30 ml DAILY PRN PO CONSTIPATION Last administered on 07/20/16 17:30; Admin Dose 30 ML; Start 07/18/16 at 15:30 Bisacodyl (Dulcolax Supp) 10 mg DAILY PRN [place] CONSTIPATION; Start 07/18/16 at 15 :30 Miscellaneous Information 1 ea NOTE XX ; Start 07/18/16 at 17:30 Glucose (Glutose) 15 gm Q15M PRN PO DECREASED GLUCOSE; Start 07/18/16 at 17:30 Glucose (Glutose) 22.5 gm Q15M PRN PO DECREASED GLUCOSE; Start 07/18/16 at 17: 30 Dextrose (D50w Syringe) 25 ml Q15M PRN IV DECREASED GLUCOSE; Start 07/18/16 at 17:30 Dextrose (D50w Syringe) 50 ml Q15M PRN IV DECREASED GLUCOSE; Start 07/18/16 at 17:30 Glucagon (Glucagen) 1 mg Q15M PRN IM DECREASED GLUCOSE; Start 07/18/16 at 17:30 Glucose (Glutose) 15 gm Q15M PRN BUCCAL DECREASED GLUCOSE; Start 07/18/16 at 17 :30 Guaifenesin/ Codeine Phosphate (Robitussin Ac Liquid Cup) 10 ml Q4H PRN PO COUGH Last administered on 07/19/16 19:43; Admin Dose 10 ML; Start 07/18/16 at 23:30 Amiodarone HCl (Cordarone) 200 mg DAILY PO Last administered on 07/26/16 08:47 ; Admin Dose 200 MG; Start 07/20/16 at 09:00 Acetaminophen/ Hydrocodone Bitart ([place] (5/325)) 1 tab Q8H PRN PO MODERATE PAIN LEVEL 4-6 Last administered on 07/25/16 21:02; Admin Dose 1 TAB; Start at 17:30 Carvedilol (Coreg) 3.125 mg BID PO Last administered on 07/26/16 08:47; Admin Dose 3.125 MG; Start 07/24/16 at 09:00 Furosemide (Lasix) 40 mg DAILY@06 IV Last administered on 07/26/16 06:05; Admin Dose 40 MG; Start 07/24/16 at 06:00; Status Future Hold DODIE OLMSTEAD MD Jul 26, 2016 14:35
[2016-07-26] MEDS: HYDROCODONE/APAP (5/325) TAB PO PRN (16:04)
--- NOTE | 2016-07-26 18:16 | RADRPT ---
PROCEDURE: CT Abdomen and Pelvis without contrast. CLINICAL INDICATION: Abdominal and pelvic pain. TECHNIQUE: CT scan of the abdomen and pelvis without contrast was performed. Coronal and sagittal reformatted images were obtained from the axial source images. Images were reviewed on a high-resolu tion PACS workstation. Total exam DLP is 535.11 mGy-cm. CTDIvol is 9.20 mGy. One or more of the fo llowin dose reduction techniques were used: Automated exposure control, adjustment of the mA and/or kV according to patient size, use of iterative reconstruction technique. COMPARISON: None. FINDINGS: There are moderate bilateral pleural effusions and atelectasis at the lung bases posteriorly. The l manpreet bases are otherwise normal. The heart is enlarged. There is no pericardial effusion. There is extensive coronary artery calcification. There are sternal wires and there is an automatic interna l cardiac defibrillator with the tip in the right ventricle. The liver is normal in size and attenuation. There is no focal hepatic lesion. The gallbladder and bile ducts are normal. The spleen is normal in size. There is no focal splenic lesion. Both adrenals are normal with no enlargement or mass. The pancreas is unremarkable with no mass or evidence of pancreatitis. There is no solid renal mass or hydronephrosis. There is a nonobstructing 0.5 cm calculus in the lo wer right kidney and a nonobstructing 1.3 cm calculus in the lower left kidney. There is a benign c yst in the mid to lower left kidney measuring 4.3 cm. The abdominal aorta is not dilated. There is calcification in the aorta consistent with atheroscler osis. There is no retroperitoneal lymphadenopathy or mass. There is no pelvic lymphadenopathy or mass. The bladder and distal ureters are normal. The periappendiceal region is unremarkable with no evidence of appendicitis. There is diverticulosis of the sigmoid colon without evidence of diverticulitis. The bowel and mese ntery are otherwise normal. There is a small amount of free fluid. There is no free air. There are degenerative changes of the spine. There is no fracture or lytic lesion. IMPRESSION: 1. Moderate bilateral pleural effusions and atelectasis at the lung bases posteriorly. 2. Cardiomegaly. 3. Extensive coronary artery calcification. 4. Previous median sternotomy. 5. Internal cardiac defibrillator. 6. Nonobstructing bilateral renal calculi. 7. Benign left renal cyst. 8. Atherosclerosis. 9. Diverticulosis of the sigmoid colon without evidence of diverticulitis. 10. Small amount of free fluid in the abdomen and pelvis. 11. Degenerative changes of the spine. RPTAT: QQ .Eugenio Ruano MD, MD Date Time Electronically viewed and signed by .Eugenio Ruano MD, MD on 07/26/2016 18:16 .R/
[2016-07-26] MEDS: ZOLPIDEM 5 MG TAB PO PRN (22:22)
[2016-07-27] VITALS (13 sets, daily range): BP systolic 119–141; BP diastolic 51–70; PULSE 59–62; RESP 16–20
[2016-07-27 05:17] LABS: AADO2 Arterial 31.1 mmHg (7.0-24.0); Allen Test ACCEPTAB; Arterial Base Excess 8.1 mmol/L (-3.0-3); Arterial COHb 0.9 % (0.0-3.0); Arterial Fraction of Oxyhgb 97.4 % (93.0-99.0); Arterial HCO3 33.7 mmol/L (22.0-26.0); Arterial MetHb 0.4 % (0.0-1.5); Arterial Total Hemglobin 14.7 g/dl (12.0-18.0); MODE NASAL CANNULA
[2016-07-27] MEDS: PANTOPRAZOLE (EC) 40 MG TAB PO SCH (05:50)
[2016-07-27 06:52] LABS: ADD SCAN DIFF NO
[2016-07-27] MEDS: HYDROCODONE/APAP (5/325) TAB PO PRN (06:55)
[2016-07-27 07:05] LABS: BASOPHILS % 0.3 % (0.0-2.0); EOSINOPHILS # 0.2 10^3/ul (0.0-0.5); EOSINOPHILS % 2.8 % (0.0-7.0); HEMATOCRIT 44.4 % (42.0-52.0); HEMOGLOBIN 13.3 g/dl (14.0-18.0); LYMPHOCYTES # 0.8 10^3/ul (0.8-2.9); LYMPHOCYTES % 12.9 % (15.0-51.0); MEAN CORPUSCULAR HEMOGLOBIN 24.8 pg (29.0-33.0); MEAN CORPUSCULAR VOLUME 82.7 fl (82.0-101.0); MEAN PLATELET VOLUME 9.8 fl (7.4-10.4); MONOCYTE # 0.7 10^3/ul (0.3-0.9); MONOCYTES % 10.9 % (0.0-11.0); NEUTROPHIL # 4.7 10^3/ul (1.6-7.5); NEUTROPHILS % 72.8 % (39.0-77.0); NUCLEATED RED BLOOD CELLS # 0.1 10^3/ul (0.0-0.0); NUCLEATED RED BLOOD CELLS% 1.7 /100WBC (0.0-0.0); PLATELET COUNT 271 10^3/UL (140-415); RED BLOOD COUNT 5.37 10^6/ul (4.70-6.10); RED CELL DISTRIBUTION WIDTH 21.8 % (11.5-14.5); WHITE BLOOD COUNT 6.5 10^3/ul (4.8-10.8)
[2016-07-27 07:11] LABS: INR 2.2; PROTIME 24.7 Sec (12.2-14.2); PT RATIO 1.9
[2016-07-27 07:16] LABS: POTASSIUM 4.1 mmol/L (3.5-5.1)
[2016-07-27 07:18] LABS: CREATININE 1.54 mg/dl (0.61-1.24)
[2016-07-27] MEDS: INSULIN ASPART [NOVOLOG] 3 ML PEN SC SCH ×2 (07:55→11:50)
--- NOTE | 2016-07-27 08:49 | RADRPT ---
PROCEDURE: XR Chest. CLINICAL INDICATION: Shortness of breath/congestive heart failure TECHNIQUE: Chest AP portable. COMPARISON: 07/24/2016 FINDINGS: Sternotomy and CABG. Left-sided single lead pacemaker. The mediastinal structures are unremarkable. There is calcification of the thoracic aorta (consiste nt with atherosclerosis). There is moderate cardiac enlargement. There is no change in the congest ed heart failure with bilateral acinar nodules. There are trace bilateral pleural effusions. Ther e are senescent changes of the axial skeleton. IMPRESSION: Moderate cardiac enlargement. No change in congestive heart failure with bilateral acinar nodules (edema). Trace bilateral pleural effusions. RPTAT: HGDB .David Rachel MD, MD Date Time Electronically viewed and signed by .David Rachel MD, on 07/27/2016 08:49 .B/
[2016-07-27] MEDS: SUCRALFATE 1 GM TAB PO SCH ×4 (09:00→21:20)
--- NOTE | 2016-07-27 10:05 | CONS ---
Date/Time of Note Date/Time of Note DATE: 07/27/16 TIME: 10:04 Assessment/Plan Assessment/Plan Additional Assessment/Plan 1. Congestive heart failure exacerbation, systolic, acute on chronic.-negative troponin x 3. EF 25% by most recent echo-worsening - will optimize fluid status now- better overall. STABLE FLUID STATUS NOW. 2. Shortness of breath secondary to #1- better with diuresis- stable. little better now 3. History of coronary artery bypass graft surgery. Assess for acute coronary syndrome. No intervention planned now. NO CP now. No intervention planned. 5. History of paroxysmal atrial fibrillation, on apixaban and amiodarone - in a. fib now, 100% paced - SAME ON TELE 6. Acute renal failure-avoid nephrotoxic meds 7. Hypertension, under reasonable control- con't to follow - CAREY NOw. 8. Anemia, mild. 9. Coagulopathy secondary to apixaban. Consultation Date/Type/Reason Admit Date/Time Jul 18, 2016 at 14:06 Type of Consultation: renal Referring Provider: NANCY VELA MD 24 HR Interval Summary Free Text/Dictation NO acute e vents.Improved fluid status. No CP - paced now. a. fib on anti- coagulation. ROS: No fever, no chills, no nausea, no vomiting, no diarrhea/constipation No recent weight changes No chest pain, no PND, no orthopnea No dizziness, blurred vision No thirst, no heat or cold intolerance Exam/Review of Systems Vital Signs Vitals Vital Signs Date Time Temp Pulse Resp B/P Pulse Ox O2 Delivery O2 Flow Rate FiO2 07/27/16 08:25 97.7 60 20 121/51 99 07/27/16 06:09 3.0 07/26/16 22:00 Nasal Cannula Intake and Output 07/26/16 07/26/16 07/27/16 15:00 23:00 07:00 Intake Total 700 ml 200 ml Output Total 1400 ml 700 ml Balance -700 ml -500 ml Exam General: WN/WD/NAD, AOx 1-2 HEENT: Unicetric/atraumatic/EOMI (follow commands) NECK: JVD elevated, no thyromegaly Lymph: no lymphadenopathy HEART: regular with no S3, II/ systolic murmur at apex, pacer LUNGS: Coarse sounds ABD: soft, NT, ND, +BS : Intact Neuro: non focal SKIN: chronic changes EXT: trace edema Results Result Diagram: 07/27/16 0553 07/27/16 0553 Results 24 hrs Laboratory Tests Test 07/26/16 11:45 07/26/16 17:15 07/26/16 21:04 07/27/16 05:00 Bedside Glucose 139 146 159 Arterial Blood HCO3 33.7 H Arterial Blood Base Excess 8.1 H Arterial Blood Oxygen Saturation 98.7 Sebastien Test ACCEPTAB Arterial Blood Gas Puncture Site Left Radial Arterial Blood Carboxyhemoglobin 0.9 Arterial Blood Date Drawn 07/27/2016 5:00:13 AM Arterial Blood Methemoglobin 0.4 Arterial Blood pCO2 (Temp correct) 49.8 H Arterial Blood pH (Temp corrected) 7.448 Arterial Blood pO2 (Temp corrected) 124.3 H Blood Gas A-a O2 Differential 31.1 H Blood Gas Modality NASAL CANNULA Blood Gas Notified Time 07/27/2016 5:16:48 AM Blood Gas Notified Whom MA Blood Gas Specimen Source Blood arterial Blood Gas Temperature 37.0 FiO2 30.0 Oxyhemoglobin Percent 97.4 Total Hemoglobin 14.7 Test 07/27/16 05:53 07/27/16 07:48 Activated Partial Thromboplast Time 49.0 H Anion Gap 16 Basophils # 0.0 Basophils % 0.3 Blood Urea Nitrogen 57 H Calcium Level 9.0 Carbon Dioxide Level 36 H Chloride Level 86 L Creatinine 1.54 H Eosinophils # 0.2 Eosinophils % 2.8 Glucose Level 110 Hematocrit 44.4 Hemoglobin 13.3 L INR International Normalized Ratio 2.20 Lymphocytes # 0.8 Lymphocytes % 12.9 L Magnesium Level 1.8 Mean Corpuscular Hemoglobin 24.8 L Mean Corpuscular Hemoglobin Concent 30.0 L Mean Corpuscular Volume 82.7 Mean Platelet Volume 9.8 Monocytes # 0.7 Monocytes % 10.9 Neutrophils # 4.7 Neutrophils % 72.8 Nucleated Red Blood Cells # 0.1 H Nucleated Red Blood Cells % 1.7 H Platelet Count 271 Potassium Level 4.1 Prothrombin Time 24.7 H Prothrombin Time Ratio 1.9 Red Blood Count 5.37 Red Cell Distribution Width 21.8 H Sodium Level 134 L White Blood Count 6.5 # Bedside Glucose 105 Medications Medications Current Medications Apixaban (Eliquis) 2.5 mg BID PO Last administered on 07/26/16 21:21; Admin Dose 2.5 MG; Start 07/18/16 at 21:00 Aspirin (Halfprin) 81 mg DAILY PO Last administered on 07/26/16 08:46; Admin Dose 81 MG; Start 07/19/16 at 09:00 Nitroglycerin (Nitroglycerin (Sl Tab) 0.4 Mg) 1 tab DAILY PRN SL CHEST PAIN; Start 07/18/16 at 15:30 Sucralfate (Carafate) 1 gm QID PO Last administered on 07/26/16 21:21; Admin Dose 1 GM; Start 07/18/16 at 17:00 Pantoprazole (Protonix Tab) 40 mg DAILY@06 PO Last administered on 07/27/16 05 :50; Admin Dose 40 MG; Start 07/19/16 at 06:00 Ondansetron HCl (Zofran Inj) 4 mg Q6H PRN IV NAUSEA AND/OR VOMITING Last administered on 07/23/16 00:24; Admin Dose 4 MG; Start 07/18/16 at 15:30 Acetaminophen (Tylenol Tab) 650 mg Q6H PRN PO PAIN LEVEL 1-3 OR FEVER Last administered on 07/25/16 15:50; Admin Dose 650 MG; Start 07/18/16 at 15:30 Acetaminophen (Tylenol Supp) 650 mg Q6H PRN [place] PAIN LEVEL 1-3 OR FEVER; Start 07/18/16 at 15:30 Docusate Sodium (Colace) 100 mg Q12H PRN PO CONSTIPATION Last administered on 20:19; Admin Dose 100 MG; Start 07/18/16 at 15:30 Magnesium Hydroxide (Milk Of Mag) 30 ml DAILY PRN PO CONSTIPATION Last administered on 07/20/16 17:30; Admin Dose 30 ML; Start 07/18/16 at 15:30 Bisacodyl (Dulcolax Supp) 10 mg DAILY PRN [place] CONSTIPATION; Start 07/18/16 at 15 :30 Miscellaneous Information 1 ea NOTE XX ; Start 07/18/16 at 17:30 Glucose (Glutose) 15 gm Q15M PRN PO DECREASED GLUCOSE; Start 07/18/16 at 17:30 Glucose (Glutose) 22.5 gm Q15M PRN PO DECREASED GLUCOSE; Start 07/18/16 at 17: 30 Dextrose (D50w Syringe) 25 ml Q15M PRN IV DECREASED GLUCOSE; Start 07/18/16 at 17:30 Dextrose (D50w Syringe) 50 ml Q15M PRN IV DECREASED GLUCOSE; Start 07/18/16 at 17:30 Glucagon (Glucagen) 1 mg Q15M PRN IM DECREASED GLUCOSE; Start 07/18/16 at 17:30 Glucose (Glutose) 15 gm Q15M PRN BUCCAL DECREASED GLUCOSE; Start 07/18/16 at 17 :30 Guaifenesin/ Codeine Phosphate (Robitussin Ac Liquid Cup) 10 ml Q4H PRN PO COUGH Last administered on 07/19/16 19:43; Admin Dose 10 ML; Start 07/18/16 at 23:30 Amiodarone HCl (Cordarone) 200 mg DAILY PO Last administered on 07/26/16 08:47 ; Admin Dose 200 MG; Start 07/20/16 at 09:00 Acetaminophen/ Hydrocodone Bitart ([place] (5/325)) 1 tab Q8H PRN PO MODERATE PAIN LEVEL 4-6 Last administered on 07/27/16 06:55; Admin Dose 1 TAB; Start at 17:30 Carvedilol (Coreg) 3.125 mg BID PO Last administered on 07/26/16 21:21; Admin Dose 3.125 MG; Start 07/24/16 at 09:00 Furosemide (Lasix) 40 mg DAILY@06 IV Last administered on 07/26/16 06:05; Admin Dose 40 MG; Start 07/24/16 at 06:00; Status Future Hold DODIE OLMSTEAD MD Jul 27, 2016 10:05
[2016-07-27] MEDS: APIXABAN 5 MG TABLET PO SCH ×2 (13:19→21:23)
[2016-07-27] MEDS: AMIODARONE 200 MG TAB PO SCH (13:19)
[2016-07-27] MEDS: ASPIRIN (EC) 81 MG TAB PO SCH (13:20)
--- NOTE | 2016-07-27 16:49 | CONS ---
Date/Time of Note Date/Time of Note DATE: 07/27/16 TIME: 16:48 Assessment/Plan Assessment/Plan Chief Complaint/Hosp Course 1. Patient has acute on chronic renal failure with acute kidney injury due to systolic heart failure.better 2. The patient has hypertension. 3. Anemia. 4. ASHD 5. Acute urinary tract infection. 6 LOW EF 7 hyperkalemia BETTER PLAN CONTINUE LASIX PT/OT renal stable Problems: Consultation Date/Type/Reason Admit Date/Time Jul 18, 2016 at 14:06 Type of Consultation: renal Referring Provider: NANCY VELA MD 24 HR Interval Summary Constitutional: other (NO SOB) Exam/Review of Systems Vital Signs Vitals Vital Signs Date Time Temp Pulse Resp B/P Pulse Ox O2 Delivery O2 Flow Rate FiO2 07/27/16 16:21 60 07/27/16 16:06 97.4 20 125/58 100 07/27/16 10:02 4.0 07/27/16 08:00 Nasal Cannula Intake and Output 07/26/16 07/26/16 07/27/16 15:00 23:00 07:00 Intake Total 700 ml 200 ml Output Total 1400 ml 700 ml Balance -700 ml -500 ml Exam Respiratory: clear to auscultation Cardiovascular: regular rate and rhythm Gastrointestinal: soft Musculoskeletal: nl extremities to inspection Extremities: normal pulses Results Result Diagram: 07/27/16 0553 07/27/16 0553 Results 24 hrs Laboratory Tests Test 07/26/16 17:15 07/26/16 21:04 07/27/16 05:00 07/27/16 05:53 Bedside Glucose 146 159 Arterial Blood HCO3 33.7 H Arterial Blood Base Excess 8.1 H Arterial Blood Oxygen Saturation 98.7 Sebastien Test ACCEPTAB Arterial Blood Gas Puncture Site Left Radial Arterial Blood Carboxyhemoglobin 0.9 Arterial Blood Date Drawn 07/27/2016 5:00:13 AM Arterial Blood Methemoglobin 0.4 Arterial Blood pCO2 (Temp correct) 49.8 H Arterial Blood pH (Temp corrected) 7.448 Arterial Blood pO2 (Temp corrected) 124.3 H Blood Gas A-a O2 Differential 31.1 H Blood Gas Modality NASAL CANNULA Blood Gas Notified Time 07/27/2016 5:16:48 AM Blood Gas Notified Whom [place] Blood Gas Specimen Source Blood arterial Blood Gas Temperature 37.0 FiO2 30.0 Oxyhemoglobin Percent 97.4 Total Hemoglobin 14.7 Activated Partial Thromboplast Time 49.0 H Anion Gap 16 Basophils # 0.0 Basophils % 0.3 Blood Urea Nitrogen 57 H Calcium Level 9.0 Carbon Dioxide Level 36 H Chloride Level 86 L Creatinine 1.54 H Eosinophils # 0.2 Eosinophils % 2.8 Glucose Level 110 Hematocrit 44.4 Hemoglobin 13.3 L INR International Normalized Ratio 2.20 Lymphocytes # 0.8 Lymphocytes % 12.9 L Magnesium Level 1.8 Mean Corpuscular Hemoglobin 24.8 L Mean Corpuscular Hemoglobin Concent 30.0 L Mean Corpuscular Volume 82.7 Mean Platelet Volume 9.8 Monocytes # 0.7 Monocytes % 10.9 Neutrophils # 4.7 Neutrophils % 72.8 Nucleated Red Blood Cells # 0.1 H Nucleated Red Blood Cells % 1.7 H Platelet Count 271 Potassium Level 4.1 Prothrombin Time 24.7 H Prothrombin Time Ratio 1.9 Red Blood Count 5.37 Red Cell Distribution Width 21.8 H Sodium Level 134 L White Blood Count 6.5 # Test 07/27/16 07:48 07/27/16 10:00 07/27/16 11:29 07/27/16 12:17 Bedside Glucose 105 117 132 Lactic Acid Level 2.1 Medications Medications Current Medications Apixaban (Eliquis) 2.5 mg BID PO Last administered on 07/27/16 13:19; Admin Dose 2.5 MG; Start 07/18/16 at 21:00 Aspirin (Halfprin) 81 mg DAILY PO Last administered on 07/27/16 13:20; Admin Dose 81 MG; Start 07/19/16 at 09:00 Nitroglycerin (Nitroglycerin (Sl Tab) 0.4 Mg) 1 tab DAILY PRN SL CHEST PAIN; Start 07/18/16 at 15:30 Sucralfate (Carafate) 1 gm QID PO Last administered on 07/27/16 13:20; Admin Dose 1 GM; Start 07/18/16 at 17:00 Pantoprazole (Protonix Tab) 40 mg DAILY@06 PO Last administered on 07/27/16 05 :50; Admin Dose 40 MG; Start 07/19/16 at 06:00 Ondansetron HCl (Zofran Inj) 4 mg Q6H PRN IV NAUSEA AND/OR VOMITING Last administered on 07/23/16 00:24; Admin Dose 4 MG; Start 07/18/16 at 15:30 Acetaminophen (Tylenol Tab) 650 mg Q6H PRN PO PAIN LEVEL 1-3 OR FEVER Last administered on 07/25/16 15:50; Admin Dose 650 MG; Start 07/18/16 at 15:30 Acetaminophen (Tylenol Supp) 650 mg Q6H PRN [place] PAIN LEVEL 1-3 OR FEVER; Start 07/18/16 at 15:30 Docusate Sodium (Colace) 100 mg Q12H PRN PO CONSTIPATION Last administered on 20:19; Admin Dose 100 MG; Start 07/18/16 at 15:30 Magnesium Hydroxide (Milk Of Mag) 30 ml DAILY PRN PO CONSTIPATION Last administered on 07/20/16 17:30; Admin Dose 30 ML; Start 07/18/16 at 15:30 Bisacodyl (Dulcolax Supp) 10 mg DAILY PRN [place] CONSTIPATION; Start 07/18/16 at 15 :30 Miscellaneous Information 1 ea NOTE XX ; Start 07/18/16 at 17:30 Glucose (Glutose) 15 gm Q15M PRN PO DECREASED GLUCOSE; Start 07/18/16 at 17:30 Glucose (Glutose) 22.5 gm Q15M PRN PO DECREASED GLUCOSE; Start 07/18/16 at 17: 30 Dextrose (D50w Syringe) 25 ml Q15M PRN IV DECREASED GLUCOSE; Start 07/18/16 at 17:30 Dextrose (D50w Syringe) 50 ml Q15M PRN IV DECREASED GLUCOSE; Start 07/18/16 at 17:30 Glucagon (Glucagen) 1 mg Q15M PRN IM DECREASED GLUCOSE; Start 07/18/16 at 17:30 Glucose (Glutose) 15 gm Q15M PRN BUCCAL DECREASED GLUCOSE; Start 07/18/16 at 17 :30 Guaifenesin/ Codeine Phosphate (Robitussin Ac Liquid Cup) 10 ml Q4H PRN PO COUGH Last administered on 07/19/16 19:43; Admin Dose 10 ML; Start 07/18/16 at 23:30 Amiodarone HCl (Cordarone) 200 mg DAILY PO Last administered on 07/27/16 13:19 ; Admin Dose 200 MG; Start 07/20/16 at 09:00 Carvedilol (Coreg) 3.125 mg BID PO Last administered on 07/27/16 13:20; Admin Dose 3.125 MG; Start 07/24/16 at 09:00 Furosemide (Lasix) 40 mg DAILY@06 IV Last administered on 07/26/16 06:05; Admin Dose 40 MG; Start 07/24/16 at 06:00; Status Future Hold YANIRA HART MD Jul 27, 2016 16:49
--- NOTE | 2016-07-27 17:06 | PN ---
Date/Time of Note Date/Time of Note DATE: 07/27/16 TIME: 16:59 Assessment/Plan VTE Prophylaxis VTE Prophylaxis Intervention: other Lines/Catheters IV Catheter Type (from Nrs): Saline Lock Urinary Cath still in place: No Assessment/Plan Chief Complaint/Hosp Course 1. Acute on chronic congestive heart failure-stable -now euvolemic, Lasix held 2. 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 Hx of DM -A1C at 5.9 -DC NISS 4. Atrial fibrillation, rate controlled -cont Eliquis and BB 5. History of CAD status post CABG 6. Acute on likely chronic kidney disease 2/2 cardiorenal syndrome-stable -now euvolemic 7. AMS likely 2/2 [place] -DC [place] 8. Debility -CM for rehab eval -PT following PPx- on Eliquis Problems: Subjective 24 Hr Interval Summary Constitutional: disoriented Exam/Review of Systems Vital Signs Vitals Vital Signs Date Time Temp Pulse Resp B/P Pulse Ox O2 Delivery O2 Flow Rate FiO2 07/27/16 16:21 60 07/27/16 16:06 97.4 20 125/58 100 07/27/16 10:02 4.0 07/27/16 08:00 Nasal Cannula Intake and Output 07/26/16 07/26/16 07/27/16 15:00 23:00 07:00 Intake Total 700 ml 200 ml Output Total 1400 ml 700 ml Balance -700 ml -500 ml Exam Psych: confusion Respiratory: clear to auscultation Cardiovascular: regular rate and rhythm Gastrointestinal: soft, No distended Musculoskeletal: nl extremities to inspection Results Result Diagram: 07/27/16 0553 07/27/16 0553 Results 24 hrs Laboratory Tests Test 07/26/16 17:15 07/26/16 21:04 07/27/16 05:00 07/27/16 05:53 Bedside Glucose 146 159 Arterial Blood HCO3 33.7 H Arterial Blood Base Excess 8.1 H Arterial Blood Oxygen Saturation 98.7 Sebastien Test ACCEPTAB Arterial Blood Gas Puncture Site Left Radial Arterial Blood Carboxyhemoglobin 0.9 Arterial Blood Date Drawn 07/27/2016 5:00:13 AM Arterial Blood Methemoglobin 0.4 Arterial Blood pCO2 (Temp correct) 49.8 H Arterial Blood pH (Temp corrected) 7.448 Arterial Blood pO2 (Temp corrected) 124.3 H Blood Gas A-a O2 Differential 31.1 H Blood Gas Modality NASAL CANNULA Blood Gas Notified Time 07/27/2016 5:16:48 AM Blood Gas Notified Whom NC Blood Gas Specimen Source Blood arterial Blood Gas Temperature 37.0 FiO2 30.0 Oxyhemoglobin Percent 97.4 Total Hemoglobin 14.7 Activated Partial Thromboplast Time 49.0 H Anion Gap 16 Basophils # 0.0 Basophils % 0.3 Blood Urea Nitrogen 57 H Calcium Level 9.0 Carbon Dioxide Level 36 H Chloride Level 86 L Creatinine 1.54 H Eosinophils # 0.2 Eosinophils % 2.8 Glucose Level 110 Hematocrit 44.4 Hemoglobin 13.3 L INR International Normalized Ratio 2.20 Lymphocytes # 0.8 Lymphocytes % 12.9 L Magnesium Level 1.8 Mean Corpuscular Hemoglobin 24.8 L Mean Corpuscular Hemoglobin Concent 30.0 L Mean Corpuscular Volume 82.7 Mean Platelet Volume 9.8 Monocytes # 0.7 Monocytes % 10.9 Neutrophils # 4.7 Neutrophils % 72.8 Nucleated Red Blood Cells # 0.1 H Nucleated Red Blood Cells % 1.7 H Platelet Count 271 Potassium Level 4.1 Prothrombin Time 24.7 H Prothrombin Time Ratio 1.9 Red Blood Count 5.37 Red Cell Distribution Width 21.8 H Sodium Level 134 L White Blood Count 6.5 # Test 07/27/16 07:48 07/27/16 10:00 07/27/16 11:29 07/27/16 12:17 Bedside Glucose 105 117 132 Lactic Acid Level 2.1 Medications Medications Current Medications Apixaban (Eliquis) 2.5 mg BID PO Last administered on 07/27/16 13:19; Admin Dose 2.5 MG; Start 07/18/16 at 21:00 Aspirin (Halfprin) 81 mg DAILY PO Last administered on 07/27/16 13:20; Admin Dose 81 MG; Start 07/19/16 at 09:00 Nitroglycerin (Nitroglycerin (Sl Tab) 0.4 Mg) 1 tab DAILY PRN SL CHEST PAIN; Start 07/18/16 at 15:30 Sucralfate (Carafate) 1 gm QID PO Last administered on 07/27/16 13:20; Admin Dose 1 GM; Start 07/18/16 at 17:00 Pantoprazole (Protonix Tab) 40 mg DAILY@06 PO Last administered on 07/27/16 05 :50; Admin Dose 40 MG; Start 07/19/16 at 06:00 Ondansetron HCl (Zofran Inj) 4 mg Q6H PRN IV NAUSEA AND/OR VOMITING Last administered on 07/23/16 00:24; Admin Dose 4 MG; Start 07/18/16 at 15:30 Acetaminophen (Tylenol Tab) 650 mg Q6H PRN PO PAIN LEVEL 1-3 OR FEVER Last administered on 07/25/16 15:50; Admin Dose 650 MG; Start 07/18/16 at 15:30 Acetaminophen (Tylenol Supp) 650 mg Q6H PRN [place] PAIN LEVEL 1-3 OR FEVER; Start 07/18/16 at 15:30 Docusate Sodium (Colace) 100 mg Q12H PRN PO CONSTIPATION Last administered on 20:19; Admin Dose 100 MG; Start 07/18/16 at 15:30 Magnesium Hydroxide (Milk Of Mag) 30 ml DAILY PRN PO CONSTIPATION Last administered on 07/20/16 17:30; Admin Dose 30 ML; Start 07/18/16 at 15:30 Bisacodyl (Dulcolax Supp) 10 mg DAILY PRN [place] CONSTIPATION; Start 07/18/16 at 15 :30 Miscellaneous Information 1 ea NOTE XX ; Start 07/18/16 at 17:30 Glucose (Glutose) 15 gm Q15M PRN PO DECREASED GLUCOSE; Start 07/18/16 at 17:30 Glucose (Glutose) 22.5 gm Q15M PRN PO DECREASED GLUCOSE; Start 07/18/16 at 17: 30 Dextrose (D50w Syringe) 25 ml Q15M PRN IV DECREASED GLUCOSE; Start 07/18/16 at 17:30 Dextrose (D50w Syringe) 50 ml Q15M PRN IV DECREASED GLUCOSE; Start 07/18/16 at 17:30 Glucagon (Glucagen) 1 mg Q15M PRN IM DECREASED GLUCOSE; Start 07/18/16 at 17:30 Glucose (Glutose) 15 gm Q15M PRN BUCCAL DECREASED GLUCOSE; Start 07/18/16 at 17 :30 Guaifenesin/ Codeine Phosphate (Robitussin Ac Liquid Cup) 10 ml Q4H PRN PO COUGH Last administered on 07/19/16 19:43; Admin Dose 10 ML; Start 07/18/16 at 23:30 Amiodarone HCl (Cordarone) 200 mg DAILY PO Last administered on 07/27/16 13:19 ; Admin Dose 200 MG; Start 07/20/16 at 09:00 Carvedilol (Coreg) 3.125 mg BID PO Last administered on 07/27/16 13:20; Admin Dose 3.125 MG; Start 07/24/16 at 09:00 Furosemide (Lasix) 40 mg DAILY@06 IV Last administered on 07/26/16 06:05; Admin Dose 40 MG; Start 07/24/16 at 06:00; Status Future Hold MURIEL EWING Jul 27, 2016 17:06
[2016-07-28] VITALS (12 sets, daily range): BP systolic 107–129; BP diastolic 52–89; PULSE 60; RESP 16–19
[2016-07-28] MEDS: PANTOPRAZOLE (EC) 40 MG TAB PO SCH (05:48)
[2016-07-28 07:05] LABS: ADD SCAN DIFF NO
[2016-07-28 07:12] LABS: BASOPHILS % 0.1 % (0.0-2.0); HEMATOCRIT 43.3 % (42.0-52.0); HEMOGLOBIN 13.4 g/dl (14.0-18.0); LYMPHOCYTES # 0.6 10^3/ul (0.8-2.9); LYMPHOCYTES % 3.6 % (15.0-51.0); MEAN CORPUSCULAR HEMOGLOBIN 25.1 pg (29.0-33.0); MEAN CORPUSCULAR HGB CONC 30.9 g/dl (32.0-37.0); MEAN CORPUSCULAR VOLUME 81.2 fl (82.0-101.0); MEAN PLATELET VOLUME 11.1 fl (7.4-10.4); MONOCYTE # 1.1 10^3/ul (0.3-0.9); MONOCYTES % 6.1 % (0.0-11.0); NEUTROPHIL # 15.9 10^3/ul (1.6-7.5); NEUTROPHILS % 89.3 % (39.0-77.0); NUCLEATED RED BLOOD CELLS # 0.1 10^3/ul (0.0-0.0); NUCLEATED RED BLOOD CELLS% 0.6 /100WBC (0.0-0.0); PLATELET COUNT 275 10^3/UL (140-415); RED BLOOD COUNT 5.33 10^6/ul (4.70-6.10); RED CELL DISTRIBUTION WIDTH 21.7 % (11.5-14.5); WHITE BLOOD COUNT 17.8 10^3/ul (4.8-10.8)
[2016-07-28 07:16] LABS: POTASSIUM 3.9 mmol/L (3.5-5.1)
[2016-07-28 07:19] LABS: CALCIUM 9.2 mg/dl (8.4-10.2); CREATININE 1.84 mg/dl (0.61-1.24)
[2016-07-28] MEDS: ASPIRIN (EC) 81 MG TAB PO SCH (08:48)
[2016-07-28] MEDS: SUCRALFATE 1 GM TAB PO SCH ×4 (08:48→20:37)
[2016-07-28] MEDS: ACETAMINOPHEN 325 MG TAB PO PRN (08:49)
[2016-07-28] MEDS: AMIODARONE 200 MG TAB PO SCH (08:49)
[2016-07-28] MEDS: APIXABAN 5 MG TABLET PO SCH ×2 (08:50→20:37)
--- NOTE | 2016-07-28 14:37 | CONS ---
Date/Time of Note Date/Time of Note DATE: 07/28/16 TIME: 14:36 Assessment/Plan Assessment/Plan Additional Assessment/Plan 1. Congestive heart failure exacerbation, systolic, acute on chronic.-negative troponin x 3. EF 25% by most recent echo- IMPROVEd FLUID STATUS NOW. 2. Shortness of breath secondary to #1- better with diuresis- stable. little better now BETTER. 3. History of coronary artery bypass graft surgery. Assess for acute coronary syndrome. No intervention planned now. NO CP now. No intervention planned. 5. History of paroxysmal atrial fibrillation, on apixaban and amiodarone - in a. fib now, 100% paced - SAME ON TELE - paced in a. fib. 6. Acute renal failure-avoid nephrotoxic meds 7. Hypertension, under reasonable control- con't to follow - CAREY NOw. 8. Anemia, mild. 9. Coagulopathy secondary to apixaban. Consultation Date/Type/Reason Admit Date/Time Jul 18, 2016 at 14:06 Type of Consultation: renal Referring Provider: NANCY VELA MD 24 HR Interval Summary Free Text/Dictation No acute change. BP stable. Better fluid status - a. fib/paced. ROS: No fever, no chills, no nausea, no vomiting, no diarrhea/constipation No recent weight changes No chest pain, no PND, no orthopnea No dizziness, blurred vision No thirst, no heat or cold intolerance Exam/Review of Systems Vital Signs Vitals Vital Signs Date Time Temp Pulse Resp B/P Pulse Ox O2 Delivery O2 Flow Rate FiO2 07/28/16 12:07 60 07/28/16 11:36 97.4 19 116/89 98 07/28/16 07:50 Nasal Cannula 4.0 Intake and Output 07/27/16 07/27/16 07/28/16 15:00 23:00 07:00 Intake Total 750 ml Output Total 350 ml Balance 400 ml Exam General: WN/WD/NAD, AOx 2-3 HEENT: Unicetric/atraumatic/EOMI (follow commands) NECK: JVD elevated, no thyromegaly Lymph: no lymphadenopathy HEART: regular with no S3, II/ systolic murmur at apex LUNGS: Coarse sounds ABD: soft, NT, ND, +BS : Intact Neuro: non focal SKIN: chronic changes EXT: trace edema Results Result Diagram: 07/28/16 0555 07/28/16 0555 Results 24 hrs Laboratory Tests Test 07/27/16 17:07 07/27/16 20:48 07/28/16 05:55 07/28/16 07:56 Bedside Glucose 128 182 133 Anion Gap 19 H Basophils # 0.0 Basophils % 0.1 Blood Urea Nitrogen 67 H Calcium Level 9.2 Carbon Dioxide Level 34 H Chloride Level 85 L Creatinine 1.84 H Eosinophils # 0.0 Eosinophils % 0.0 Glucose Level 131 Hematocrit 43.3 Hemoglobin 13.4 L Lymphocytes # 0.6 L Lymphocytes % 3.6 L Mean Corpuscular Hemoglobin 25.1 L Mean Corpuscular Hemoglobin Concent 30.9 L Mean Corpuscular Volume 81.2 L Mean Platelet Volume 11.1 H Monocytes # 1.1 H Monocytes % 6.1 Neutrophils # 15.9 H Neutrophils % 89.3 H Nucleated Red Blood Cells # 0.1 H Nucleated Red Blood Cells % 0.6 H Platelet Count 275 Potassium Level 3.9 Red Blood Count 5.33 Red Cell Distribution Width 21.7 H Sodium Level 134 L White Blood Count 17.8 #H Medications Medications Current Medications Apixaban (Eliquis) 2.5 mg BID PO Last administered on 07/28/16 08:50; Admin Dose 2.5 MG; Start 07/18/16 at 21:00 Aspirin (Halfprin) 81 mg DAILY PO Last administered on 07/28/16 08:48; Admin Dose 81 MG; Start 07/19/16 at 09:00 Nitroglycerin (Nitroglycerin (Sl Tab) 0.4 Mg) 1 tab DAILY PRN SL CHEST PAIN; Start 07/18/16 at 15:30 Sucralfate (Carafate) 1 gm QID PO Last administered on 07/28/16 13:16; Admin Dose 1 GM; Start 07/18/16 at 17:00 Pantoprazole (Protonix Tab) 40 mg DAILY@06 PO Last administered on 07/28/16 05 :48; Admin Dose 40 MG; Start 07/19/16 at 06:00 Ondansetron HCl (Zofran Inj) 4 mg Q6H PRN IV NAUSEA AND/OR VOMITING Last administered on 07/23/16 00:24; Admin Dose 4 MG; Start 07/18/16 at 15:30 Acetaminophen (Tylenol Tab) 650 mg Q6H PRN PO PAIN LEVEL 1-3 OR FEVER Last administered on 07/28/16 08:49; Admin Dose 650 MG; Start 07/18/16 at 15:30 Acetaminophen (Tylenol Supp) 650 mg Q6H PRN [place] PAIN LEVEL 1-3 OR FEVER; Start 07/18/16 at 15:30 Docusate Sodium (Colace) 100 mg Q12H PRN PO CONSTIPATION Last administered on 20:19; Admin Dose 100 MG; Start 07/18/16 at 15:30 Magnesium Hydroxide (Milk Of Mag) 30 ml DAILY PRN PO CONSTIPATION Last administered on 07/20/16 17:30; Admin Dose 30 ML; Start 07/18/16 at 15:30 Bisacodyl (Dulcolax Supp) 10 mg DAILY PRN [place] CONSTIPATION; Start 07/18/16 at 15 :30 Miscellaneous Information 1 ea NOTE XX ; Start 07/18/16 at 17:30 Glucose (Glutose) 15 gm Q15M PRN PO DECREASED GLUCOSE; Start 07/18/16 at 17:30 Glucose (Glutose) 22.5 gm Q15M PRN PO DECREASED GLUCOSE; Start 07/18/16 at 17: 30 Dextrose (D50w Syringe) 25 ml Q15M PRN IV DECREASED GLUCOSE; Start 07/18/16 at 17:30 Dextrose (D50w Syringe) 50 ml Q15M PRN IV DECREASED GLUCOSE; Start 07/18/16 at 17:30 Glucagon (Glucagen) 1 mg Q15M PRN IM DECREASED GLUCOSE; Start 07/18/16 at 17:30 Glucose (Glutose) 15 gm Q15M PRN BUCCAL DECREASED GLUCOSE; Start 07/18/16 at 17 :30 Guaifenesin/ Codeine Phosphate (Robitussin Ac Liquid Cup) 10 ml Q4H PRN PO COUGH Last administered on 07/19/16 19:43; Admin Dose 10 ML; Start 07/18/16 at 23:30 Amiodarone HCl (Cordarone) 200 mg DAILY PO Last administered on 07/28/16 08:49 ; Admin Dose 200 MG; Start 07/20/16 at 09:00 Carvedilol (Coreg) 3.125 mg BID PO Last administered on 07/28/16 08:50; Admin Dose 3.125 MG; Start 07/24/16 at 09:00 Furosemide (Lasix) 40 mg DAILY@06 IV Last administered on 07/26/16 06:05; Admin Dose 40 MG; Start 07/24/16 at 06:00; Status Future Hold DODIE OLMSTEAD MD Jul 28, 2016 14:37
--- NOTE | 2016-07-28 14:54 | PN ---
Date/Time of Note Date/Time of Note DATE: 07/28/16 TIME: 14:51 Assessment/Plan VTE Prophylaxis VTE Prophylaxis Intervention: other Lines/Catheters IV Catheter Type (from Nrs): Saline Lock Urinary Cath still in place: No (condom catheter) Assessment/Plan Chief Complaint/Hosp Course 1. Acute on chronic congestive heart failure-stable -now euvolemic, Lasix held 2. 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 Hx of DM -A1C at 5.9 -DC NISS 4. Atrial fibrillation, rate controlled -cont Eliquis and BB 5. History of CAD status post CABG 6. Acute on likely chronic kidney disease 2/2 cardiorenal syndrome-stable -now euvolemic 7. AMS likely 2/2 [place] -DC [place] 8. Debility -CM for rehab eval, family aware and are looking for a facility -PT following PPx- on Eliquis Problems: Subjective 24 Hr Interval Summary Constitutional: no complaints Exam/Review of Systems Vital Signs Vitals Vital Signs Date Time Temp Pulse Resp B/P Pulse Ox O2 Delivery O2 Flow Rate FiO2 07/28/16 12:07 60 07/28/16 11:36 97.4 19 116/89 98 07/28/16 07:50 Nasal Cannula 4.0 Intake and Output 07/27/16 07/27/16 07/28/16 15:00 23:00 07:00 Intake Total 750 ml Output Total 350 ml Balance 400 ml Exam Constitutional: alert Respiratory: clear to auscultation Cardiovascular: regular rate and rhythm Gastrointestinal: soft, No distended Musculoskeletal: nl extremities to inspection Results Result Diagram: 07/28/16 0555 07/28/16 0555 Results 24 hrs Laboratory Tests Test 07/27/16 17:07 07/27/16 20:48 07/28/16 05:55 07/28/16 07:56 Bedside Glucose 128 182 133 Anion Gap 19 H Basophils # 0.0 Basophils % 0.1 Blood Urea Nitrogen 67 H Calcium Level 9.2 Carbon Dioxide Level 34 H Chloride Level 85 L Creatinine 1.84 H Eosinophils # 0.0 Eosinophils % 0.0 Glucose Level 131 Hematocrit 43.3 Hemoglobin 13.4 L Lymphocytes # 0.6 L Lymphocytes % 3.6 L Mean Corpuscular Hemoglobin 25.1 L Mean Corpuscular Hemoglobin Concent 30.9 L Mean Corpuscular Volume 81.2 L Mean Platelet Volume 11.1 H Monocytes # 1.1 H Monocytes % 6.1 Neutrophils # 15.9 H Neutrophils % 89.3 H Nucleated Red Blood Cells # 0.1 H Nucleated Red Blood Cells % 0.6 H Platelet Count 275 Potassium Level 3.9 Red Blood Count 5.33 Red Cell Distribution Width 21.7 H Sodium Level 134 L White Blood Count 17.8 #H Medications Medications Current Medications Apixaban (Eliquis) 2.5 mg BID PO Last administered on 07/28/16 08:50; Admin Dose 2.5 MG; Start 07/18/16 at 21:00 Aspirin (Halfprin) 81 mg DAILY PO Last administered on 07/28/16 08:48; Admin Dose 81 MG; Start 07/19/16 at 09:00 Nitroglycerin (Nitroglycerin (Sl Tab) 0.4 Mg) 1 tab DAILY PRN SL CHEST PAIN; Start 07/18/16 at 15:30 Sucralfate (Carafate) 1 gm QID PO Last administered on 07/28/16 13:16; Admin Dose 1 GM; Start 07/18/16 at 17:00 Pantoprazole (Protonix Tab) 40 mg DAILY@06 PO Last administered on 07/28/16 05 :48; Admin Dose 40 MG; Start 07/19/16 at 06:00 Ondansetron HCl (Zofran Inj) 4 mg Q6H PRN IV NAUSEA AND/OR VOMITING Last administered on 07/23/16 00:24; Admin Dose 4 MG; Start 07/18/16 at 15:30 Acetaminophen (Tylenol Tab) 650 mg Q6H PRN PO PAIN LEVEL 1-3 OR FEVER Last administered on 07/28/16 08:49; Admin Dose 650 MG; Start 07/18/16 at 15:30 Acetaminophen (Tylenol Supp) 650 mg Q6H PRN [place] PAIN LEVEL 1-3 OR FEVER; Start 07/18/16 at 15:30 Docusate Sodium (Colace) 100 mg Q12H PRN PO CONSTIPATION Last administered on 20:19; Admin Dose 100 MG; Start 07/18/16 at 15:30 Magnesium Hydroxide (Milk Of Mag) 30 ml DAILY PRN PO CONSTIPATION Last administered on 07/20/16 17:30; Admin Dose 30 ML; Start 07/18/16 at 15:30 Bisacodyl (Dulcolax Supp) 10 mg DAILY PRN [place] CONSTIPATION; Start 07/18/16 at 15 :30 Miscellaneous Information 1 ea NOTE XX ; Start 07/18/16 at 17:30 Glucose (Glutose) 15 gm Q15M PRN PO DECREASED GLUCOSE; Start 07/18/16 at 17:30 Glucose (Glutose) 22.5 gm Q15M PRN PO DECREASED GLUCOSE; Start 07/18/16 at 17: 30 Dextrose (D50w Syringe) 25 ml Q15M PRN IV DECREASED GLUCOSE; Start 07/18/16 at 17:30 Dextrose (D50w Syringe) 50 ml Q15M PRN IV DECREASED GLUCOSE; Start 07/18/16 at 17:30 Glucagon (Glucagen) 1 mg Q15M PRN IM DECREASED GLUCOSE; Start 07/18/16 at 17:30 Glucose (Glutose) 15 gm Q15M PRN BUCCAL DECREASED GLUCOSE; Start 07/18/16 at 17 :30 Guaifenesin/ Codeine Phosphate (Robitussin Ac Liquid Cup) 10 ml Q4H PRN PO COUGH Last administered on 07/19/16 19:43; Admin Dose 10 ML; Start 07/18/16 at 23:30 Amiodarone HCl (Cordarone) 200 mg DAILY PO Last administered on 07/28/16 08:49 ; Admin Dose 200 MG; Start 07/20/16 at 09:00 Carvedilol (Coreg) 3.125 mg BID PO Last administered on 07/28/16 08:50; Admin Dose 3.125 MG; Start 07/24/16 at 09:00 Furosemide (Lasix) 40 mg DAILY@06 IV Last administered on 07/26/16 06:05; Admin Dose 40 MG; Start 07/24/16 at 06:00; Status Future Hold MURIEL EWING Jul 28, 2016 14:54
--- NOTE | 2016-07-28 22:08 | CONS ---
Date/Time of Note Date/Time of Note DATE: 07/28/16 TIME: 22:07 Assessment/Plan Assessment/Plan Chief Complaint/Hosp Course 1. Patient has acute on chronic renal failure with acute kidney injury due to systolic heart failure. 2. The patient has hypertension. 3. Anemia. 4. ASHD 5. Acute urinary tract infection. 6 LOW EF 7 hyperkalemia BETTER 8 afib PLAN CONTINUE LASIX PT/OT renal stable Problems: Consultation Date/Type/Reason Admit Date/Time Jul 18, 2016 at 14:06 Type of Consultation: renal Referring Provider: NANCY VELA MD 24 HR Interval Summary Constitutional: requiring O2 Exam/Review of Systems Vital Signs Vitals Vital Signs Date Time Temp Pulse Resp B/P Pulse Ox O2 Delivery O2 Flow Rate FiO2 07/28/16 20:34 60 07/28/16 19:29 97.5 16 120/59 100 07/28/16 07:50 Nasal Cannula 4.0 Intake and Output 07/27/16 07/27/16 07/28/16 15:00 23:00 07:00 Intake Total 750 ml Output Total 350 ml Balance 400 ml Exam Respiratory: diminished breath sounds Cardiovascular: irregular rhythm Gastrointestinal: soft Extremities: edema (+) Results Result Diagram: 07/28/16 0555 07/28/16 0555 Results 24 hrs Laboratory Tests Test 07/28/16 05:55 07/28/16 07:56 Anion Gap 19 H Basophils # 0.0 Basophils % 0.1 Blood Urea Nitrogen 67 H Calcium Level 9.2 Carbon Dioxide Level 34 H Chloride Level 85 L Creatinine 1.84 H Eosinophils # 0.0 Eosinophils % 0.0 Glucose Level 131 Hematocrit 43.3 Hemoglobin 13.4 L Lymphocytes # 0.6 L Lymphocytes % 3.6 L Mean Corpuscular Hemoglobin 25.1 L Mean Corpuscular Hemoglobin Concent 30.9 L Mean Corpuscular Volume 81.2 L Mean Platelet Volume 11.1 H Monocytes # 1.1 H Monocytes % 6.1 Neutrophils # 15.9 H Neutrophils % 89.3 H Nucleated Red Blood Cells # 0.1 H Nucleated Red Blood Cells % 0.6 H Platelet Count 275 Potassium Level 3.9 Red Blood Count 5.33 Red Cell Distribution Width 21.7 H Sodium Level 134 L White Blood Count 17.8 #H Bedside Glucose 133 Medications Medications Current Medications Apixaban (Eliquis) 2.5 mg BID PO Last administered on 07/28/16 20:37; Admin Dose 2.5 MG; Start 07/18/16 at 21:00 Aspirin (Halfprin) 81 mg DAILY PO Last administered on 07/28/16 08:48; Admin Dose 81 MG; Start 07/19/16 at 09:00 Nitroglycerin (Nitroglycerin (Sl Tab) 0.4 Mg) 1 tab DAILY PRN SL CHEST PAIN; Start 07/18/16 at 15:30 Sucralfate (Carafate) 1 gm QID PO Last administered on 07/28/16 20:37; Admin Dose 1 GM; Start 07/18/16 at 17:00 Pantoprazole (Protonix Tab) 40 mg DAILY@06 PO Last administered on 07/28/16 05 :48; Admin Dose 40 MG; Start 07/19/16 at 06:00 Ondansetron HCl (Zofran Inj) 4 mg Q6H PRN IV NAUSEA AND/OR VOMITING Last administered on 07/23/16 00:24; Admin Dose 4 MG; Start 07/18/16 at 15:30 Acetaminophen (Tylenol Tab) 650 mg Q6H PRN PO PAIN LEVEL 1-3 OR FEVER Last administered on 07/28/16 08:49; Admin Dose 650 MG; Start 07/18/16 at 15:30 Acetaminophen (Tylenol Supp) 650 mg Q6H PRN [place] PAIN LEVEL 1-3 OR FEVER; Start 07/18/16 at 15:30 Docusate Sodium (Colace) 100 mg Q12H PRN PO CONSTIPATION Last administered on 20:19; Admin Dose 100 MG; Start 07/18/16 at 15:30 Magnesium Hydroxide (Milk Of Mag) 30 ml DAILY PRN PO CONSTIPATION Last administered on 07/20/16 17:30; Admin Dose 30 ML; Start 07/18/16 at 15:30 Bisacodyl (Dulcolax Supp) 10 mg DAILY PRN [place] CONSTIPATION; Start 07/18/16 at 15 :30 Miscellaneous Information 1 ea NOTE XX ; Start 07/18/16 at 17:30 Glucose (Glutose) 15 gm Q15M PRN PO DECREASED GLUCOSE; Start 07/18/16 at 17:30 Glucose (Glutose) 22.5 gm Q15M PRN PO DECREASED GLUCOSE; Start 07/18/16 at 17: 30 Dextrose (D50w Syringe) 25 ml Q15M PRN IV DECREASED GLUCOSE; Start 07/18/16 at 17:30 Dextrose (D50w Syringe) 50 ml Q15M PRN IV DECREASED GLUCOSE; Start 07/18/16 at 17:30 Glucagon (Glucagen) 1 mg Q15M PRN IM DECREASED GLUCOSE; Start 07/18/16 at 17:30 Glucose (Glutose) 15 gm Q15M PRN BUCCAL DECREASED GLUCOSE; Start 07/18/16 at 17 :30 Guaifenesin/ Codeine Phosphate (Robitussin Ac Liquid Cup) 10 ml Q4H PRN PO COUGH Last administered on 07/19/16 19:43; Admin Dose 10 ML; Start 07/18/16 at 23:30 Amiodarone HCl (Cordarone) 200 mg DAILY PO Last administered on 07/28/16 08:49 ; Admin Dose 200 MG; Start 07/20/16 at 09:00 Carvedilol (Coreg) 3.125 mg BID PO Last administered on 07/28/16 20:38; Admin Dose 3.125 MG; Start 07/24/16 at 09:00 Furosemide (Lasix) 40 mg DAILY@06 IV Last administered on 07/26/16 06:05; Admin Dose 40 MG; Start 07/24/16 at 06:00; Status Future Hold YANIRA HART MD Jul 28, 2016 22:08
[2016-07-28] MEDS: MAGNESIUM HYDROXIDE 30ML CUP PO PRN (23:03)
[2016-07-29] VITALS (11 sets, daily range): BP systolic 112–121; BP diastolic 50–58; PULSE 60–61; RESP 16–19
[2016-07-29] MEDS: ACETAMINOPHEN 325 MG TAB PO PRN (00:15)
[2016-07-29] MEDS: PANTOPRAZOLE (EC) 40 MG TAB PO SCH (06:21)
[2016-07-29 07:32] LABS: ADD SCAN DIFF NO
[2016-07-29 07:41] LABS: BASOPHILS % 0.1 % (0.0-2.0); EOSINOPHILS % 0.1 % (0.0-7.0); HEMATOCRIT 39.5 % (42.0-52.0); HEMOGLOBIN 12.5 g/dl (14.0-18.0); LYMPHOCYTES # 0.6 10^3/ul (0.8-2.9); LYMPHOCYTES % 3.9 % (15.0-51.0); MEAN CORPUSCULAR HEMOGLOBIN 25.2 pg (29.0-33.0); MEAN CORPUSCULAR HGB CONC 31.6 g/dl (32.0-37.0); MEAN CORPUSCULAR VOLUME 79.5 fl (82.0-101.0); MEAN PLATELET VOLUME 10.2 fl (7.4-10.4); MONOCYTE # 0.8 10^3/ul (0.3-0.9); MONOCYTES % 5.1 % (0.0-11.0); NEUTROPHILS % 90.2 % (39.0-77.0); NUCLEATED RED BLOOD CELLS% 0.3 /100WBC (0.0-0.0); PLATELET COUNT 245 10^3/UL (140-415); RED BLOOD COUNT 4.97 10^6/ul (4.70-6.10); RED CELL DISTRIBUTION WIDTH 20.9 % (11.5-14.5); WHITE BLOOD COUNT 15.5 10^3/ul (4.8-10.8)
[2016-07-29 07:58] LABS: POTASSIUM 3.6 mmol/L (3.5-5.1)
[2016-07-29 08:00] LABS: CREATININE 1.58 mg/dl (0.61-1.24)
[2016-07-29] MEDS ORDERED: SOD CHLORIDE 0.9% 500 ML IV ONE (08:00)
[2016-07-29] MEDS: SUCRALFATE 1 GM TAB PO SCH ×4 (08:27→20:19)
[2016-07-29] MEDS: ASPIRIN (EC) 81 MG TAB PO SCH (08:28)
[2016-07-29] MEDS: APIXABAN 5 MG TABLET PO SCH ×2 (08:29→20:20)
[2016-07-29] MEDS: AMIODARONE 200 MG TAB PO SCH (08:29)
--- NOTE | 2016-07-29 12:37 | CONS ---
Date/Time of Note Date/Time of Note DATE: 07/29/16 TIME: 12:34 Assessment/Plan Assessment/Plan Chief Complaint/Hosp Course IMPRESSION: 1. Congestive heart failure exacerbation, systolic, acute on chronic.-negative troponin x 3. EF 25% by most recent echo-worsening 2. Shortness of breath secondary to #1. 3. History of coronary artery bypass graft surgery. Assess for acute coronary syndrome. 4. Abnormal electrocardiogram . Assess for acute coronary syndrome.-negative troponin x3 5. History of paroxysmal atrial fibrillation, on apixaban and amiodarone. 6. Acute renal failure-worsening 7. Hypertension, under reasonable control. 8. Anemia, mild. 9. Coagulopathy secondary to apixaban. Rec: -tele -serial ecg's -Continue coreg and add low dosde hydralazine afterload reduction -Dose digoxin IVP to increase contractility -Continue asa/apixaban for now -Follow volume status and renal fxn closely and will consider admit to ICU for fixed low dose dobutamine as necessary -check cxr today to assess for ongoing CHF Problems: Consultation Date/Type/Reason Admit Date/Time Jul 18, 2016 at 14:06 Initial Consult Date 07/19/2016 Type of Consultation: Cardiology Reason for Consultation CHF Referring Provider: NANCY VELA MD Exam/Review of Systems Vital Signs Vitals Vital Signs Date Time Temp Pulse Resp B/P Pulse Ox O2 Delivery O2 Flow Rate FiO2 07/29/16 12:08 60 07/29/16 11:15 97.8 19 112/54 100 07/29/16 08:20 Nasal Cannula 4.0 Intake and Output 07/28/16 07/28/16 07/29/16 15:00 23:00 07:00 Intake Total 700 ml 500 ml Output Total 400 ml 150 ml Balance 300 ml 350 ml Exam Review of Systems: CONSTITUTIONAL: No fevers, chills. PULMONARY: No sob CARDIOVASCULAR: No chest pain/palpitations GASTROINTESTINAL: No nausea/vomiting. GENITOURINARY: No hematuria/dysuria. MUSCULOSKELETAL: No myagias/arthalgias. PSYCHIATRIC: The patient denies depression. NEUROLOGIC: No weakness Constitutional: alert, oriented Psych: no complaints Head: normocephalic ENMT: mucosa pink and moist Neck: jvd (9 cm water), supple Respiratory: diminished breath sounds (at bases/B) Cardiovascular: regular rate and rhythm Gastrointestinal: non-tender, soft Musculoskeletal: muscle tone (normal) Extremities: edema (none) Neurological: other (No focal deficits) Results Result Diagram: 07/29/16 0640 07/29/16 0640 Results 24 hrs Laboratory Tests Test 07/29/16 06:40 Anion Gap 16 Basophils # 0.0 Basophils % 0.1 Blood Urea Nitrogen 72 H Calcium Level 9.0 Carbon Dioxide Level 33 H Chloride Level 84 L Creatinine 1.58 H Eosinophils # 0.0 Eosinophils % 0.1 Glucose Level 115 Hematocrit 39.5 L Hemoglobin 12.5 L Lymphocytes # 0.6 L Lymphocytes % 3.9 L Mean Corpuscular Hemoglobin 25.2 L Mean Corpuscular Hemoglobin Concent 31.6 L Mean Corpuscular Volume 79.5 L Mean Platelet Volume 10.2 Monocytes # 0.8 Monocytes % 5.1 Neutrophils # 14.0 H Neutrophils % 90.2 H Nucleated Red Blood Cells # 0.0 Nucleated Red Blood Cells % 0.3 H Platelet Count 245 Potassium Level 3.6 Red Blood Count 4.97 Red Cell Distribution Width 20.9 H Sodium Level 129 L White Blood Count 15.5 H Medications Medications Current Medications Apixaban (Eliquis) 2.5 mg BID PO Last administered on 07/29/16 08:29; Admin Dose 2.5 MG; Start 07/18/16 at 21:00 Aspirin (Halfprin) 81 mg DAILY PO Last administered on 07/29/16 08:28; Admin Dose 81 MG; Start 07/19/16 at 09:00 Nitroglycerin (Nitroglycerin (Sl Tab) 0.4 Mg) 1 tab DAILY PRN SL CHEST PAIN; Start 07/18/16 at 15:30 Sucralfate (Carafate) 1 gm QID PO Last administered on 07/29/16 08:27; Admin Dose 1 GM; Start 07/18/16 at 17:00 Pantoprazole (Protonix Tab) 40 mg DAILY@06 PO Last administered on 07/29/16 06: 21; Admin Dose 40 MG; Start 07/19/16 at 06:00 Ondansetron HCl (Zofran Inj) 4 mg Q6H PRN IV NAUSEA AND/OR VOMITING Last administered on 07/23/16 00:24; Admin Dose 4 MG; Start 07/18/16 at 15:30 Acetaminophen (Tylenol Tab) 650 mg Q6H PRN PO PAIN LEVEL 1-3 OR FEVER Last administered on 07/29/16 00:15; Admin Dose 650 MG; Start 07/18/16 at 15:30 Acetaminophen (Tylenol Supp) 650 mg Q6H PRN [place] PAIN LEVEL 1-3 OR FEVER; Start 07/18/16 at 15:30 Docusate Sodium (Colace) 100 mg Q12H PRN PO CONSTIPATION Last administered on 20:19; Admin Dose 100 MG; Start 07/18/16 at 15:30 Magnesium Hydroxide (Milk Of Mag) 30 ml DAILY PRN PO CONSTIPATION Last administered on 07/28/16 23:03; Admin Dose 30 ML; Start 07/18/16 at 15:30 Bisacodyl (Dulcolax Supp) 10 mg DAILY PRN [place] CONSTIPATION; Start 07/18/16 at 15 :30 Miscellaneous Information 1 ea NOTE XX ; Start 07/18/16 at 17:30 Glucose (Glutose) 15 gm Q15M PRN PO DECREASED GLUCOSE; Start 07/18/16 at 17:30 Glucose (Glutose) 22.5 gm Q15M PRN PO DECREASED GLUCOSE; Start 07/18/16 at 17: 30 Dextrose (D50w Syringe) 25 ml Q15M PRN IV DECREASED GLUCOSE; Start 07/18/16 at 17:30 Dextrose (D50w Syringe) 50 ml Q15M PRN IV DECREASED GLUCOSE; Start 07/18/16 at 17:30 Glucagon (Glucagen) 1 mg Q15M PRN IM DECREASED GLUCOSE; Start 07/18/16 at 17:30 Glucose (Glutose) 15 gm Q15M PRN BUCCAL DECREASED GLUCOSE; Start 07/18/16 at 17 :30 Guaifenesin/ Codeine Phosphate (Robitussin Ac Liquid Cup) 10 ml Q4H PRN PO COUGH Last administered on 07/19/16 19:43; Admin Dose 10 ML; Start 07/18/16 at 23:30 Amiodarone HCl (Cordarone) 200 mg DAILY PO Last administered on 07/29/16 08:29 ; Admin Dose 200 MG; Start 07/20/16 at 09:00 Carvedilol (Coreg) 3.125 mg BID PO Last administered on 07/29/16 08:28; Admin Dose 3.125 MG; Start 07/24/16 at 09:00 Furosemide (Lasix) 40 mg DAILY@06 IV Last administered on 07/26/16 06:05; Admin Dose 40 MG; Start 07/24/16 at 06:00; Status Future Hold POLI SAN Jul 29, 2016 12:37
[2016-07-29] MEDS ORDERED: DIGOXIN 500 MCG INJ IV ONE (13:00)
--- NOTE | 2016-07-29 15:15 | RADRPT ---
PROCEDURE: CHEST 1VW CLINICAL INDICATION: Shortness of breath TECHNIQUE: Single frontal view of the chest was obtained COMPARISON: 07/27/2016 FINDINGS: Stable left chest wall defibrillator. Stable sternotomy wires. The cardiac size is moderately enlarged, stable. Aortic vascular calcifications are demonstrated. There is stable moderate interstitial edema and pulmonary vascular congestion. Possible trace bilateral effusions with associated atelectasis. Mild degenerative changes of the visualized osseous structures are visualized. IMPRESSION: 1. Stable cardiomegaly with stable moderate pulmonary vascular congestion, interstitial edema, and p ossible trace bilateral pleural effusions with associated atelectasis. 2. Atherosclerosis. RPTAT:PP .Bart Choi MD, Date Time Electronically viewed and signed by .Bart Choi MD, on 07/29/2016 15:10 .V/
--- NOTE | 2016-07-29 16:13 | PN ---
Date/Time of Note Date/Time of Note DATE: 07/29/16 TIME: 16:11 Assessment/Plan VTE Prophylaxis VTE Prophylaxis Intervention: other Lines/Catheters IV Catheter Type (from Rust): Saline Lock Urinary Cath still in place: No Assessment/Plan Chief Complaint/Hosp Course 1. Acute on chronic congestive heart failure -now euvolemic, Lasix now resumed as CXR shows pulm edema 2. Ischemic cardiomyopathy with ejection fraction of 25%.s/p AICD in place 3. Hx of DM -A1C at 5.9 -DC NISS 4. Atrial fibrillation, rate controlled -cont Eliquis and BB 5. History of CAD status post CABG 6. Acute on likely chronic kidney disease 2/2 cardiorenal syndrome-stable -Lasix resumed 7. AMS likely 2/2 [place]-Improved -DC [place] 8. Debility -CM for arrangement of HH -PT following PPx- on Eliquis Problems: Subjective 24 Hr Interval Summary Constitutional: no complaints Exam/Review of Systems Vital Signs Vitals Vital Signs Date Time Temp Pulse Resp B/P Pulse Ox O2 Delivery O2 Flow Rate FiO2 07/29/16 15:48 98.0 63 18 121/58 100 07/29/16 08:20 Nasal Cannula 4.0 Intake and Output 07/28/16 07/28/16 07/29/16 15:00 23:00 07:00 Intake Total 700 ml 500 ml Output Total 400 ml 150 ml Balance 300 ml 350 ml Exam Constitutional: alert Respiratory: clear to auscultation Cardiovascular: regular rate and rhythm Gastrointestinal: soft, No distended Musculoskeletal: nl extremities to inspection Results Result Diagram: 07/29/16 0640 07/29/16 0640 Results 24 hrs Laboratory Tests Test 07/29/16 06:40 Anion Gap 16 Basophils # 0.0 Basophils % 0.1 Blood Urea Nitrogen 72 H Calcium Level 9.0 Carbon Dioxide Level 33 H Chloride Level 84 L Creatinine 1.58 H Eosinophils # 0.0 Eosinophils % 0.1 Glucose Level 115 Hematocrit 39.5 L Hemoglobin 12.5 L Lymphocytes # 0.6 L Lymphocytes % 3.9 L Mean Corpuscular Hemoglobin 25.2 L Mean Corpuscular Hemoglobin Concent 31.6 L Mean Corpuscular Volume 79.5 L Mean Platelet Volume 10.2 Monocytes # 0.8 Monocytes % 5.1 Neutrophils # 14.0 H Neutrophils % 90.2 H Nucleated Red Blood Cells # 0.0 Nucleated Red Blood Cells % 0.3 H Platelet Count 245 Potassium Level 3.6 Red Blood Count 4.97 Red Cell Distribution Width 20.9 H Sodium Level 129 L White Blood Count 15.5 H Medications Medications Current Medications Apixaban (Eliquis) 2.5 mg BID PO Last administered on 07/29/16 08:29; Admin Dose 2.5 MG; Start 07/18/16 at 21:00 Aspirin (Halfprin) 81 mg DAILY PO Last administered on 07/29/16 08:28; Admin Dose 81 MG; Start 07/19/16 at 09:00 Nitroglycerin (Nitroglycerin (Sl Tab) 0.4 Mg) 1 tab DAILY PRN SL CHEST PAIN; Start 07/18/16 at 15:30 Sucralfate (Carafate) 1 gm QID PO Last administered on 07/29/16 12:50; Admin Dose 1 GM; Start 07/18/16 at 17:00 Pantoprazole (Protonix Tab) 40 mg DAILY@06 PO Last administered on 07/29/16 06: 21; Admin Dose 40 MG; Start 07/19/16 at 06:00 Ondansetron HCl (Zofran Inj) 4 mg Q6H PRN IV NAUSEA AND/OR VOMITING Last administered on 07/23/16 00:24; Admin Dose 4 MG; Start 07/18/16 at 15:30 Acetaminophen (Tylenol Tab) 650 mg Q6H PRN PO PAIN LEVEL 1-3 OR FEVER Last administered on 07/29/16 00:15; Admin Dose 650 MG; Start 07/18/16 at 15:30 Acetaminophen (Tylenol Supp) 650 mg Q6H PRN [place] PAIN LEVEL 1-3 OR FEVER; Start 07/18/16 at 15:30 Docusate Sodium (Colace) 100 mg Q12H PRN PO CONSTIPATION Last administered on 20:19; Admin Dose 100 MG; Start 07/18/16 at 15:30 Magnesium Hydroxide (Milk Of Mag) 30 ml DAILY PRN PO CONSTIPATION Last administered on 07/28/16 23:03; Admin Dose 30 ML; Start 07/18/16 at 15:30 Bisacodyl (Dulcolax Supp) 10 mg DAILY PRN [place] CONSTIPATION; Start 07/18/16 at 15 :30 Miscellaneous Information 1 ea NOTE XX ; Start 07/18/16 at 17:30 Glucose (Glutose) 15 gm Q15M PRN PO DECREASED GLUCOSE; Start 07/18/16 at 17:30 Glucose (Glutose) 22.5 gm Q15M PRN PO DECREASED GLUCOSE; Start 07/18/16 at 17: 30 Dextrose (D50w Syringe) 25 ml Q15M PRN IV DECREASED GLUCOSE; Start 07/18/16 at 17:30 Dextrose (D50w Syringe) 50 ml Q15M PRN IV DECREASED GLUCOSE; Start 07/18/16 at 17:30 Glucagon (Glucagen) 1 mg Q15M PRN IM DECREASED GLUCOSE; Start 07/18/16 at 17:30 Glucose (Glutose) 15 gm Q15M PRN BUCCAL DECREASED GLUCOSE; Start 07/18/16 at 17 :30 Guaifenesin/ Codeine Phosphate (Robitussin Ac Liquid Cup) 10 ml Q4H PRN PO COUGH Last administered on 07/19/16 19:43; Admin Dose 10 ML; Start 07/18/16 at 23:30 Amiodarone HCl (Cordarone) 200 mg DAILY PO Last administered on 07/29/16 08:29 ; Admin Dose 200 MG; Start 07/20/16 at 09:00 Carvedilol (Coreg) 3.125 mg BID PO Last administered on 07/29/16 08:28; Admin Dose 3.125 MG; Start 07/24/16 at 09:00 Furosemide (Lasix) 40 mg DAILY@06 IV Last administered on 07/26/16 06:05; Admin Dose 40 MG; Start 07/24/16 at 06:00; Status Future Hold Hydralazine HCl (Apresoline) 10 mg Q8 PO Last administered on 07/29/16 13:49; Admin Dose 10 MG; Start 07/29/16 at 14:00 MURIEL EWING Jul 29, 2016 16:13
[2016-07-29] MEDS: GUAIFENESIN/CODEINE 5ML CUP PO PRN (20:19)
--- NOTE | 2016-07-29 20:30 | CONS ---
Date/Time of Note Date/Time of Note DATE: 07/29/16 TIME: 20:29 Assessment/Plan Assessment/Plan Chief Complaint/Hosp Course 1. Patient has acute on chronic renal failure with acute kidney injury due to systolic heart failure. 2. The patient has hypertension. 3. Anemia. 4. ASHD 5. Acute urinary tract infection. 6 LOW EF 7 hyperkalemia BETTER 8 afib 9 hyponatremia observe PLAN CONTINUE LASIX PT/OT renal stable Problems: Consultation Date/Type/Reason Admit Date/Time Jul 18, 2016 at 14:06 Type of Consultation: renal Referring Provider: NANCY VELA MD Exam/Review of Systems Vital Signs Vitals Vital Signs Date Time Temp Pulse Resp B/P Pulse Ox O2 Delivery O2 Flow Rate FiO2 07/29/16 20:27 60 07/29/16 15:48 98.0 18 121/58 100 07/29/16 08:20 Nasal Cannula 4.0 Intake and Output 07/28/16 07/28/16 07/29/16 15:00 23:00 07:00 Intake Total 700 ml 500 ml Output Total 400 ml 150 ml Balance 300 ml 350 ml Exam Respiratory: diminished breath sounds Cardiovascular: regular rate and rhythm Gastrointestinal: soft Extremities: edema (tr) Results Result Diagram: 07/29/16 0640 07/29/16 0640 Results 24 hrs Laboratory Tests Test 07/29/16 06:40 Anion Gap 16 Basophils # 0.0 Basophils % 0.1 Blood Urea Nitrogen 72 H Calcium Level 9.0 Carbon Dioxide Level 33 H Chloride Level 84 L Creatinine 1.58 H Eosinophils # 0.0 Eosinophils % 0.1 Glucose Level 115 Hematocrit 39.5 L Hemoglobin 12.5 L Lymphocytes # 0.6 L Lymphocytes % 3.9 L Mean Corpuscular Hemoglobin 25.2 L Mean Corpuscular Hemoglobin Concent 31.6 L Mean Corpuscular Volume 79.5 L Mean Platelet Volume 10.2 Monocytes # 0.8 Monocytes % 5.1 Neutrophils # 14.0 H Neutrophils % 90.2 H Nucleated Red Blood Cells # 0.0 Nucleated Red Blood Cells % 0.3 H Platelet Count 245 Potassium Level 3.6 Red Blood Count 4.97 Red Cell Distribution Width 20.9 H Sodium Level 129 L White Blood Count 15.5 H Medications Medications Current Medications Apixaban (Eliquis) 2.5 mg BID PO Last administered on 07/29/16 20:20; Admin Dose 2.5 MG; Start 07/18/16 at 21:00 Aspirin (Halfprin) 81 mg DAILY PO Last administered on 07/29/16 08:28; Admin Dose 81 MG; Start 07/19/16 at 09:00 Nitroglycerin (Nitroglycerin (Sl Tab) 0.4 Mg) 1 tab DAILY PRN SL CHEST PAIN; Start 07/18/16 at 15:30 Sucralfate (Carafate) 1 gm QID PO Last administered on 07/29/16 20:19; Admin Dose 1 GM; Start 07/18/16 at 17:00 Pantoprazole (Protonix Tab) 40 mg DAILY@06 PO Last administered on 07/29/16 06: 21; Admin Dose 40 MG; Start 07/19/16 at 06:00 Ondansetron HCl (Zofran Inj) 4 mg Q6H PRN IV NAUSEA AND/OR VOMITING Last administered on 07/23/16 00:24; Admin Dose 4 MG; Start 07/18/16 at 15:30 Acetaminophen (Tylenol Tab) 650 mg Q6H PRN PO PAIN LEVEL 1-3 OR FEVER Last administered on 07/29/16 00:15; Admin Dose 650 MG; Start 07/18/16 at 15:30 Acetaminophen (Tylenol Supp) 650 mg Q6H PRN [place] PAIN LEVEL 1-3 OR FEVER; Start 07/18/16 at 15:30 Docusate Sodium (Colace) 100 mg Q12H PRN PO CONSTIPATION Last administered on 20:19; Admin Dose 100 MG; Start 07/18/16 at 15:30 Magnesium Hydroxide (Milk Of Mag) 30 ml DAILY PRN PO CONSTIPATION Last administered on 07/28/16 23:03; Admin Dose 30 ML; Start 07/18/16 at 15:30 Bisacodyl (Dulcolax Supp) 10 mg DAILY PRN [place] CONSTIPATION; Start 07/18/16 at 15 :30 Miscellaneous Information 1 ea NOTE XX ; Start 07/18/16 at 17:30 Glucose (Glutose) 15 gm Q15M PRN PO DECREASED GLUCOSE; Start 07/18/16 at 17:30 Glucose (Glutose) 22.5 gm Q15M PRN PO DECREASED GLUCOSE; Start 07/18/16 at 17: 30 Dextrose (D50w Syringe) 25 ml Q15M PRN IV DECREASED GLUCOSE; Start 07/18/16 at 17:30 Dextrose (D50w Syringe) 50 ml Q15M PRN IV DECREASED GLUCOSE; Start 07/18/16 at 17:30 Glucagon (Glucagen) 1 mg Q15M PRN IM DECREASED GLUCOSE; Start 07/18/16 at 17:30 Glucose (Glutose) 15 gm Q15M PRN BUCCAL DECREASED GLUCOSE; Start 07/18/16 at 17 :30 Guaifenesin/ Codeine Phosphate (Robitussin Ac Liquid Cup) 10 ml Q4H PRN PO COUGH Last administered on 07/29/16 20:19; Admin Dose 10 ML; Start 07/18/16 at 23:30 Amiodarone HCl (Cordarone) 200 mg DAILY PO Last administered on 07/29/16 08:29 ; Admin Dose 200 MG; Start 07/20/16 at 09:00 Carvedilol (Coreg) 3.125 mg BID PO Last administered on 07/29/16 20:20; Admin Dose 3.125 MG; Start 07/24/16 at 09:00 Furosemide (Lasix) 40 mg DAILY@06 IV Last administered on 07/26/16 06:05; Admin Dose 40 MG; Start 07/24/16 at 06:00; Status Future Hold Hydralazine HCl (Apresoline) 10 mg Q8 PO Last administered on 07/29/16 13:49; Admin Dose 10 MG; Start 07/29/16 at 14:00 YANIRA HART MD Jul 29, 2016 20:30
[2016-07-30] VITALS (12 sets, daily range): BP systolic 109–135; BP diastolic 49–66; PULSE 59–60; RESP 17–22
[2016-07-30] MEDS ORDERED: ALBUMIN HUMAN 25% 50 ML IV ONE (01:30)
[2016-07-30] MEDS: PANTOPRAZOLE (EC) 40 MG TAB PO SCH (05:11)
[2016-07-30 07:35] LABS: ADD SCAN DIFF NO
[2016-07-30 07:38] LABS: BASOPHILS % 0.1 % (0.0-2.0); EOSINOPHILS % 0.3 % (0.0-7.0); LYMPHOCYTES # 0.6 10^3/ul (0.8-2.9); LYMPHOCYTES % 5.3 % (15.0-51.0); MEAN CORPUSCULAR HEMOGLOBIN 25.2 pg (29.0-33.0); MEAN CORPUSCULAR VOLUME 81.6 fl (82.0-101.0); MEAN PLATELET VOLUME 10.5 fl (7.4-10.4); MONOCYTE # 0.7 10^3/ul (0.3-0.9); MONOCYTES % 5.7 % (0.0-11.0); NEUTROPHIL # 10.5 10^3/ul (1.6-7.5); NEUTROPHILS % 87.8 % (39.0-77.0); NUCLEATED RED BLOOD CELLS # 0.1 10^3/ul (0.0-0.0); NUCLEATED RED BLOOD CELLS% 0.9 /100WBC (0.0-0.0); PLATELET COUNT 274 10^3/UL (140-415); RED BLOOD COUNT 5.15 10^6/ul (4.70-6.10); RED CELL DISTRIBUTION WIDTH 21.7 % (11.5-14.5)
[2016-07-30 07:50] LABS: POTASSIUM 4.3 mmol/L (3.5-5.1)
[2016-07-30 07:52] LABS: CREATININE 1.76 mg/dl (0.61-1.24)
[2016-07-30 07:53] LABS: CALCIUM 9.1 mg/dl (8.4-10.2)
[2016-07-30 07:54] LABS: MAGNESIUM 2.4 mg/dl (1.7-2.5)
[2016-07-30] MEDS: SUCRALFATE 1 GM TAB PO SCH ×4 (08:33→20:50)
[2016-07-30] MEDS: AMIODARONE 200 MG TAB PO SCH (08:34)
[2016-07-30] MEDS: APIXABAN 5 MG TABLET PO SCH ×2 (08:35→20:50)
[2016-07-30] MEDS: ASPIRIN (EC) 81 MG TAB PO SCH (08:35)
[2016-07-30 10:56] LABS: HAAIG REFLEX REFLEX FILED
[2016-07-30 11:53] LABS: HEPATITIS B CORE ANTIBODY NEGATIVE (NEGATIVE)
[2016-07-30] MEDS: LACTULOSE 30ML CUP PO SCH ×2 (13:16→23:57)
--- NOTE | 2016-07-30 14:20 | CONS ---
Date/Time of Note Date/Time of Note DATE: 07/30/16 TIME: 14:15 Assessment/Plan Assessment/Plan Chief Complaint/Hosp Course IMPRESSION: 1. Congestive heart failure exacerbation, systolic, acute on chronic.-negative troponin x 3. EF 25% by most recent echo-worsening 2. Shortness of breath secondary to #1. 3. History of coronary artery bypass graft surgery. Assess for acute coronary syndrome. 4. Abnormal electrocardiogram . Assess for acute coronary syndrome.-negative troponin x3 5. History of paroxysmal atrial fibrillation, on apixaban and amiodarone. 6. Acute renal failure-worsening 7. Hypertension,currently uncontrolled 8. Anemia, mild. 9. Coagulopathy secondary to apixaban. Rec: -tele -serial ecg's -Continue coreg and hydralazine and start low dose isordil to decrase preload given congestion -resume lasix diuresis and follow medical payment poster -s/p dose digoxin IVP to increase contractility -Continue asa/apixaban for now -Follow volume status and renal fxn closely and will consider admit to ICU for fixed low dose dobutamine as necessary if unable to effectively diurese Problems: Consultation Date/Type/Reason Admit Date/Time Jul 18, 2016 at 14:06 Initial Consult Date 07/19/2016 Type of Consultation: Cardiology Reason for Consultation CHF Referring Provider: MURIEL EWING Exam/Review of Systems Vital Signs Vitals Vital Signs Date Time Temp Pulse Resp B/P Pulse Ox O2 Delivery O2 Flow Rate FiO2 07/30/16 12:31 98.6 74 18 134/66 100 07/30/16 08:15 Nasal Cannula 4.0 Intake and Output 07/29/16 07/29/16 07/30/16 15:00 23:00 07:00 Intake Total 500 ml 750 ml 500 ml Output Total 300 ml 300 ml Balance 500 ml 450 ml 200 ml Exam Review of Systems: CONSTITUTIONAL: No fevers, chills. PULMONARY: No sob CARDIOVASCULAR: No chest pain/palpitations GASTROINTESTINAL: No nausea/vomiting. GENITOURINARY: No hematuria/dysuria. MUSCULOSKELETAL: No myagias/arthalgias. PSYCHIATRIC: The patient denies depression. NEUROLOGIC: Generalized weakness/lethargy Constitutional: other (sleeping, arousable) Psych: no complaints Head: normocephalic Eyes: nl conjunctiva Neck: jvd (10 cm water) Respiratory: diminished breath sounds (at bases/B) Cardiovascular: regular rate and rhythm Gastrointestinal: non-tender, soft Musculoskeletal: muscle tone (normal) Extremities: edema (none) Neurological: lethargic Results Result Diagram: 07/30/16 0639 07/30/16 0634 Results 24 hrs Laboratory Tests Test 07/30/16 00:51 07/30/16 06:34 07/30/16 06:39 07/30/16 07:51 Bedside Glucose 124 110 Anion Gap 17 H Blood Urea Nitrogen 78 H Calcium Level 9.1 Carbon Dioxide Level 33 H Chloride Level 85 L Creatinine 1.76 H Glucose Level 102 Magnesium Level 2.4 Potassium Level 4.3 Sodium Level 131 L Basophils # 0.0 Basophils % 0.1 Eosinophils # 0.0 Eosinophils % 0.3 Hematocrit 42.0 Hemoglobin 13.0 L Hepatitis B Core Total Antibody NEGATIVE Hepatitis B Surface Antigen NEGATIVE Hepatitis C Antibody NEGATIVE Lymphocytes # 0.6 L Lymphocytes % 5.3 L Mean Corpuscular Hemoglobin 25.2 L Mean Corpuscular Hemoglobin Concent 31.0 L Mean Corpuscular Volume 81.6 L Mean Platelet Volume 10.5 H Monocytes # 0.7 Monocytes % 5.7 Neutrophils # 10.5 H Neutrophils % 87.8 H Nucleated Red Blood Cells # 0.1 H Nucleated Red Blood Cells % 0.9 H Platelet Count 274 Red Blood Count 5.15 Red Cell Distribution Width 21.7 H White Blood Count 12.0 #H Test 07/30/16 12:00 07/30/16 12:02 Ammonia < 9 L Bedside Glucose 104 Medications Medications Current Medications Apixaban (Eliquis) 2.5 mg BID PO Last administered on 07/30/16 08:35; Admin Dose 2.5 MG; Start 07/18/16 at 21:00 Aspirin (Halfprin) 81 mg DAILY PO Last administered on 07/30/16 08:35; Admin Dose 81 MG; Start 07/19/16 at 09:00 Nitroglycerin (Nitroglycerin (Sl Tab) 0.4 Mg) 1 tab DAILY PRN SL CHEST PAIN; Start 07/18/16 at 15:30 Sucralfate (Carafate) 1 gm QID PO Last administered on 07/30/16 13:16; Admin Dose 1 GM; Start 07/18/16 at 17:00 Pantoprazole (Protonix Tab) 40 mg DAILY@06 PO Last administered on 07/30/16 05: 11; Admin Dose 40 MG; Start 07/19/16 at 06:00 Ondansetron HCl (Zofran Inj) 4 mg Q6H PRN IV NAUSEA AND/OR VOMITING Last administered on 07/23/16 00:24; Admin Dose 4 MG; Start 07/18/16 at 15:30 Acetaminophen (Tylenol Tab) 650 mg Q6H PRN PO PAIN LEVEL 1-3 OR FEVER Last administered on 07/29/16 00:15; Admin Dose 650 MG; Start 07/18/16 at 15:30 Acetaminophen (Tylenol Supp) 650 mg Q6H PRN [place] PAIN LEVEL 1-3 OR FEVER; Start 07/18/16 at 15:30 Docusate Sodium (Colace) 100 mg Q12H PRN PO CONSTIPATION Last administered on 20:19; Admin Dose 100 MG; Start 07/18/16 at 15:30 Magnesium Hydroxide (Milk Of Mag) 30 ml DAILY PRN PO CONSTIPATION Last administered on 07/28/16 23:03; Admin Dose 30 ML; Start 07/18/16 at 15:30 Bisacodyl (Dulcolax Supp) 10 mg DAILY PRN [place] CONSTIPATION; Start 07/18/16 at 15 :30 Miscellaneous Information 1 ea NOTE XX ; Start 07/18/16 at 17:30 Glucose (Glutose) 15 gm Q15M PRN PO DECREASED GLUCOSE; Start 07/18/16 at 17:30 Glucose (Glutose) 22.5 gm Q15M PRN PO DECREASED GLUCOSE; Start 07/18/16 at 17: 30 Dextrose (D50w Syringe) 25 ml Q15M PRN IV DECREASED GLUCOSE; Start 07/18/16 at 17:30 Dextrose (D50w Syringe) 50 ml Q15M PRN IV DECREASED GLUCOSE; Start 07/18/16 at 17:30 Glucagon (Glucagen) 1 mg Q15M PRN IM DECREASED GLUCOSE; Start 07/18/16 at 17:30 Glucose (Glutose) 15 gm Q15M PRN BUCCAL DECREASED GLUCOSE; Start 07/18/16 at 17 :30 Guaifenesin/ Codeine Phosphate (Robitussin Ac Liquid Cup) 10 ml Q4H PRN PO COUGH Last administered on 07/19/16 19:43; Admin Dose 10 ML; Start 07/18/16 at 23:30 Amiodarone HCl (Cordarone) 200 mg DAILY PO Last administered on 07/30/16 08:34 ; Admin Dose 200 MG; Start 07/20/16 at 09:00 Carvedilol (Coreg) 3.125 mg BID PO Last administered on 07/30/16 08:35; Admin Dose 3.125 MG; Start 07/24/16 at 09:00 Furosemide (Lasix) 40 mg DAILY@06 IV Last administered on 07/26/16 06:05; Admin Dose 40 MG; Start 07/24/16 at 06:00; Status Future Hold Hydralazine HCl (Apresoline) 10 mg Q8 PO Last administered on 07/30/16 05:11; Admin Dose 10 MG; Start 07/29/16 at 14:00 Lactulose (Enulose) 20 gm Q8 PO Last administered on 07/30/16 13:16; Admin Dose 20 GM; Start 07/30/16 at 14:00 POLI SAN Jul 30, 2016 14:20
--- NOTE | 2016-07-30 15:33 | PN ---
Date/Time of Note Date/Time of Note DATE: 07/30/16 TIME: 15:28 Assessment/Plan VTE Prophylaxis VTE Prophylaxis Intervention: other Lines/Catheters IV C[facility]ter Type (from [facility] Urinary Cath still in place: No Assessment/Plan Chief Complaint/Hosp Course 1. Acute on chronic congestive heart failure -now euvolemic, Lasix now resumed as CXR shows pulm edema 2. Ischemic cardiomyopathy with ejection fraction of 25%.s/p AICD in place 3. Hx of DM -A1C at 5.9 -DC NISS 4. Atrial fibrillation, rate controlled -cont Eliquis and BB 5. History of CAD status post CABG 6. Acute on likely chronic kidney disease 2/2 cardiorenal syndrome-stable -Lasix resumed 7. 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 Debility - for arrangement of HH -PT following 9. Cirrhosis -Noted last year on Abd US -Hep panel is negative, etiology may be 2/2 retirement CHF and/or ARVIZU PPx- on Eliquis Problems: Subjective 24 Hr Interval Summary Constitutional: disoriented Exam/Review of Systems Vital Signs Vitals Vital Signs Date Time Temp Pulse Resp B/P Pulse Ox O2 Delivery O2 Flow Rate FiO2 07/30/16 12:31 98.6 74 18 134/66 100 07/30/16 08:15 Nasal Cannula 4.0 Intake and Output 07/29/16 07/29/16 07/30/16 15:00 23:00 07:00 Intake Total 500 ml 750 ml 500 ml Output Total 300 ml 300 ml Balance 500 ml 450 ml 200 ml Exam Psych: confusion Respiratory: clear to auscultation Cardiovascular: regular rate and rhythm Gastrointestinal: soft, No distended Musculoskeletal: nl extremities to inspection Results Result Diagram: 07/30/16 0639 07/30/16 0634 Results 24 hrs Laboratory Tests Test 07/30/16 00:51 07/30/16 06:34 07/30/16 06:39 07/30/16 07:51 Bedside Glucose 124 110 Anion Gap 17 H Blood Urea Nitrogen 78 H Calcium Level 9.1 Carbon Dioxide Level 33 H Chloride Level 85 L Creatinine 1.76 H Glucose Level 102 Magnesium Level 2.4 Potassium Level 4.3 Sodium Level 131 L Basophils # 0.0 Basophils % 0.1 Eosinophils # 0.0 Eosinophils % 0.3 Hematocrit 42.0 Hemoglobin 13.0 L Hepatitis B Core Total Antibody NEGATIVE Hepatitis B Surface Antigen NEGATIVE Hepatitis C Antibody NEGATIVE Lymphocytes # 0.6 L Lymphocytes % 5.3 L Mean Corpuscular Hemoglobin 25.2 L Mean Corpuscular Hemoglobin Concent 31.0 L Mean Corpuscular Volume 81.6 L Mean Platelet Volume 10.5 H Monocytes # 0.7 Monocytes % 5.7 Neutrophils # 10.5 H Neutrophils % 87.8 H Nucleated Red Blood Cells # 0.1 H Nucleated Red Blood Cells % 0.9 H Platelet Count 274 Red Blood Count 5.15 Red Cell Distribution Width 21.7 H White Blood Count 12.0 #H Test 07/30/16 12:00 07/30/16 12:02 Ammonia < 9 L Bedside Glucose 104 Medications Medications Current Medications Apixaban (Eliquis) 2.5 mg BID PO Last administered on 07/30/16 08:35; Admin Dose 2.5 MG; Start 07/18/16 at 21:00 Aspirin (Halfprin) 81 mg DAILY PO Last administered on 07/30/16 08:35; Admin Dose 81 MG; Start 07/19/16 at 09:00 Nitroglycerin (Nitroglycerin (Sl Tab) 0.4 Mg) 1 tab DAILY PRN SL CHEST PAIN; Start 07/18/16 at 15:30 Sucralfate (Carafate) 1 gm QID PO Last administered on 07/30/16 13:16; Admin Dose 1 GM; Start 07/18/16 at 17:00 Pantoprazole (Protonix Tab) 40 mg DAILY@06 PO Last administered on 07/30/16 05: 11; Admin Dose 40 MG; Start 07/19/16 at 06:00 Ondansetron HCl (Zofran Inj) 4 mg Q6H PRN IV NAUSEA AND/OR VOMITING Last administered on 07/23/16 00:24; Admin Dose 4 MG; Start 07/18/16 at 15:30 Acetaminophen (Tylenol Tab) 650 mg Q6H PRN PO PAIN LEVEL 1-3 OR FEVER Last administered on 07/29/16 00:15; Admin Dose 650 MG; Start 07/18/16 at 15:30 Acetaminophen (Tylenol Supp) 650 mg Q6H PRN [place] PAIN LEVEL 1-3 OR FEVER; Start 07/18/16 at 15:30 Docusate Sodium (Colace) 100 mg Q12H PRN PO CONSTIPATION Last administered on 20:19; Admin Dose 100 MG; Start 07/18/16 at 15:30 Magnesium Hydroxide (Milk Of Mag) 30 ml DAILY PRN PO CONSTIPATION Last administered on 07/28/16 23:03; Admin Dose 30 ML; Start 07/18/16 at 15:30 Bisacodyl (Dulcolax Supp) 10 mg DAILY PRN [place] CONSTIPATION; Start 07/18/16 at 15 :30 Miscellaneous Information 1 ea NOTE XX ; Start 07/18/16 at 17:30 Glucose (Glutose) 15 gm Q15M PRN PO DECREASED GLUCOSE; Start 07/18/16 at 17:30 Glucose (Glutose) 22.5 gm Q15M PRN PO DECREASED GLUCOSE; Start 07/18/16 at 17: 30 Dextrose (D50w Syringe) 25 ml Q15M PRN IV DECREASED GLUCOSE; Start 07/18/16 at 17:30 Dextrose (D50w Syringe) 50 ml Q15M PRN IV DECREASED GLUCOSE; Start 07/18/16 at 17:30 Glucagon (Glucagen) 1 mg Q15M PRN IM DECREASED GLUCOSE; Start 07/18/16 at 17:30 Glucose (Glutose) 15 gm Q15M PRN BUCCAL DECREASED GLUCOSE; Start 07/18/16 at 17 :30 Guaifenesin/ Codeine Phosphate (Robitussin Ac Liquid Cup) 10 ml Q4H PRN PO COUGH Last administered on 07/19/16 19:43; Admin Dose 10 ML; Start 07/18/16 at 23:30 Amiodarone HCl (Cordarone) 200 mg DAILY PO Last administered on 07/30/16 08:34 ; Admin Dose 200 MG; Start 07/20/16 at 09:00 Carvedilol (Coreg) 3.125 mg BID PO Last administered on 07/30/16 08:35; Admin Dose 3.125 MG; Start 07/24/16 at 09:00 Hydralazine HCl (Apresoline) 10 mg Q8 PO Last administered on 07/30/16 14:15; Admin Dose 10 MG; Start 07/29/16 at 14:00 Lactulose (Enulose) 20 gm Q8 PO Last administered on 07/30/16t 13:16; Admin Dose 20 GM; Start 07/30/16 at 14:00 Isosorbide Dinitrate (Isordil) 10 mg TID PO ; Start 07/30/16 at 21:00 MURIEL EWING Jul 30, 2016 15:33
--- NOTE | 2016-07-30 17:27 | CONS ---
Date/Time of Note Date/Time of Note DATE: 07/30/16 TIME: 17:25 Assessment/Plan Assessment/Plan Chief Complaint/Hosp Course 1. Patient has acute on chronic renal failure with acute kidney injury due to systolic heart failure. 2. The patient has hypertension. 3. Anemia. 4. ASHD 5. Acute urinary tract infection. 6 LOW EF 7 hyperkalemia BETTER 8 afib 9 hyponatremia observe PLAN CONTINUE LASIX TID METALAZONE PT/OT IF NO RESPONSE CONSIDER ULTRAFIILTERATION Problems: Consultation Date/Type/Reason Admit Date/Time Jul 18, 2016 at 14:06 Type of Consultation: RENAL Referring Provider: MURIEL EWING 24 HR Interval Summary Constitutional: other (SOB ), requiring O2 Exam/Review of Systems Vital Signs Vitals Vital Signs Date Time Temp Pulse Resp B/P Pulse Ox O2 Delivery O2 Flow Rate FiO2 07/30/16 16:00 60 07/30/16 15:57 98.8 19 117/62 100 07/30/16 08:15 Nasal Cannula 4.0 Intake and Output 07/29/16 07/29/16 07/30/16 15:00 23:00 07:00 Intake Total 500 ml 750 ml 500 ml Output Total 300 ml 300 ml Balance 500 ml 450 ml 200 ml Exam Neck: supple Respiratory: crackles/rales (+), diminished breath sounds Cardiovascular: regular rate and rhythm Gastrointestinal: soft Musculoskeletal: nl extremities to inspection Extremities: normal pulses Results Result Diagram: 07/30/16 0639 07/30/16 0634 Results 24 hrs Laboratory Tests Test 07/30/16 00:51 07/30/16 06:34 07/30/16 06:39 07/30/16 07:51 Bedside Glucose 124 110 Anion Gap 17 H Blood Urea Nitrogen 78 H Calcium Level 9.1 Carbon Dioxide Level 33 H Chloride Level 85 L Creatinine 1.76 H Glucose Level 102 Magnesium Level 2.4 Potassium Level 4.3 Sodium Level 131 L Basophils # 0.0 Basophils % 0.1 Eosinophils # 0.0 Eosinophils % 0.3 Hematocrit 42.0 Hemoglobin 13.0 L Hepatitis B Core Total Antibody NEGATIVE Hepatitis B Surface Antigen NEGATIVE Hepatitis C Antibody NEGATIVE Lymphocytes # 0.6 L Lymphocytes % 5.3 L Mean Corpuscular Hemoglobin 25.2 L Mean Corpuscular Hemoglobin Concent 31.0 L Mean Corpuscular Volume 81.6 L Mean Platelet Volume 10.5 H Monocytes # 0.7 Monocytes % 5.7 Neutrophils # 10.5 H Neutrophils % 87.8 H Nucleated Red Blood Cells # 0.1 H Nucleated Red Blood Cells % 0.9 H Platelet Count 274 Red Blood Count 5.15 Red Cell Distribution Width 21.7 H White Blood Count 12.0 #H Test 07/30/16 12:00 07/30/16 12:02 07/30/16 16:58 Ammonia < 9 L Bedside Glucose 104 132 Medications Medications Current Medications Apixaban (Eliquis) 2.5 mg BID PO Last administered on 07/30/16 08:35; Admin Dose 2.5 MG; Start 07/18/16 at 21:00 Aspirin (Halfprin) 81 mg DAILY PO Last administered on 07/30/16 08:35; Admin Dose 81 MG; Start 07/19/16 at 09:00 Nitroglycerin (Nitroglycerin (Sl Tab) 0.4 Mg) 1 tab DAILY PRN SL CHEST PAIN; Start 07/18/16 at 15:30 Sucralfate (Carafate) 1 gm QID PO Last administered on 07/30/16 13:16; Admin Dose 1 GM; Start 07/18/16 at 17:00 Pantoprazole (Protonix Tab) 40 mg DAILY@06 PO Last administered on 07/30/16 05: 11; Admin Dose 40 MG; Start 07/19/16 at 06:00 Ondansetron HCl (Zofran Inj) 4 mg Q6H PRN IV NAUSEA AND/OR VOMITING Last administered on 07/23/16 00:24; Admin Dose 4 MG; Start 07/18/16 at 15:30 Acetaminophen (Tylenol Tab) 650 mg Q6H PRN PO PAIN LEVEL 1-3 OR FEVER Last administered on 07/29/16 00:15; Admin Dose 650 MG; Start 07/18/16 at 15:30 Acetaminophen (Tylenol Supp) 650 mg Q6H PRN [place] PAIN LEVEL 1-3 OR FEVER; Start 07/18/16 at 15:30 Docusate Sodium (Colace) 100 mg Q12H PRN PO CONSTIPATION Last administered on 20:19; Admin Dose 100 MG; Start 07/18/16 at 15:30 Magnesium Hydroxide (Milk Of Mag) 30 ml DAILY PRN PO CONSTIPATION Last administered on 07/28/16 23:03; Admin Dose 30 ML; Start 07/18/16 at 15:30 Bisacodyl (Dulcolax Supp) 10 mg DAILY PRN [place] CONSTIPATION; Start 07/18/16 at 15 :30 Miscellaneous Information 1 ea NOTE XX ; Start 07/18/16 at 17:30 Glucose (Glutose) 15 gm Q15M PRN PO DECREASED GLUCOSE; Start 07/18/16 at 17:30 Glucose (Glutose) 22.5 gm Q15M PRN PO DECREASED GLUCOSE; Start 07/18/16 at 17: 30 Dextrose (D50w Syringe) 25 ml Q15M PRN IV DECREASED GLUCOSE; Start 07/18/16 at 17:30 Dextrose (D50w Syringe) 50 ml Q15M PRN IV DECREASED GLUCOSE; Start 07/18/16 at 17:30 Glucagon (Glucagen) 1 mg Q15M PRN IM DECREASED GLUCOSE; Start 07/18/16 at 17:30 Glucose (Glutose) 15 gm Q15M PRN BUCCAL DECREASED GLUCOSE; Start 07/18/16 at 17 :30 Guaifenesin/ Codeine Phosphate (Robitussin Ac Liquid Cup) 10 ml Q4H PRN PO COUGH Last administered on 07/19/16 19:43; Admin Dose 10 ML; Start 07/18/16 at 23:30 Amiodarone HCl (Cordarone) 200 mg DAILY PO Last administered on 07/30/16 08:34 ; Admin Dose 200 MG; Start 07/20/16 at 09:00 Carvedilol (Coreg) 3.125 mg BID PO Last administered on 07/30/16 08:35; Admin Dose 3.125 MG; Start 07/24/16 at 09:00 Hydralazine HCl (Apresoline) 10 mg Q8 PO Last administered on 07/30/16 14:15; Admin Dose 10 MG; Start 07/29/16 at 14:00 Lactulose (Enulose) 20 gm Q8 PO Last administered on 07/30/16 13:16; Admin Dose 20 GM; Start 07/30/16 at 14:00 Isosorbide Dinitrate (Isordil) 10 mg TID PO ; Start 07/30/16 at 21:00 YANIRA HART MD Jul 30, 2016 17:27
[2016-07-30] MEDS ORDERED: FUROSEMIDE 40 MG INJ IV SCH (18:00)
[2016-07-30] MEDS: ISOSORBIDE DINITRATE 10 MG TAB PO SCH (20:53)
[2016-07-31] VITALS (14 sets, daily range): BP systolic 107–160; BP diastolic 53–84; PULSE 60; RESP 17–20
[2016-07-31] MEDS: LACTULOSE 30ML CUP PO SCH ×3 (05:54→22:20)
[2016-07-31] MEDS: FUROSEMIDE 40 MG INJ IV SCH ×3 (05:55→22:20)
[2016-07-31] MEDS: PANTOPRAZOLE (EC) 40 MG TAB PO SCH (05:55)
[2016-07-31 06:55] LABS: ADD SCAN DIFF NO
[2016-07-31 06:58] LABS: BASOPHILS % 0.1 % (0.0-2.0); EOSINOPHILS % 0.4 % (0.0-7.0); HEMATOCRIT 40.8 % (42.0-52.0); HEMOGLOBIN 12.6 g/dl (14.0-18.0); LYMPHOCYTES # 0.6 10^3/ul (0.8-2.9); LYMPHOCYTES % 6.7 % (15.0-51.0); MEAN CORPUSCULAR HEMOGLOBIN 25.1 pg (29.0-33.0); MEAN CORPUSCULAR HGB CONC 30.9 g/dl (32.0-37.0); MEAN CORPUSCULAR VOLUME 81.4 fl (82.0-101.0); MEAN PLATELET VOLUME 10.4 fl (7.4-10.4); MONOCYTE # 0.8 10^3/ul (0.3-0.9); MONOCYTES % 8.7 % (0.0-11.0); NEUTROPHIL # 7.5 10^3/ul (1.6-7.5); NEUTROPHILS % 83.5 % (39.0-77.0); NUCLEATED RED BLOOD CELLS # 0.3 10^3/ul (0.0-0.0); PLATELET COUNT 301 10^3/UL (140-415); RED BLOOD COUNT 5.01 10^6/ul (4.70-6.10); RED CELL DISTRIBUTION WIDTH 21.2 % (11.5-14.5); WHITE BLOOD COUNT 8.9 10^3/ul (4.8-10.8)
[2016-07-31 07:09] LABS: ALBUMIN 3.7 g/dl (3.3-4.9)
[2016-07-31 07:10] LABS: POTASSIUM 4.3 mmol/L (3.5-5.1)
[2016-07-31 07:12] LABS: BILIRUBIN,DIRECT 0.5 mg/dl (0.00-0.20); BILIRUBIN,INDIRECT 1.4 mg/dl (0-1.1); BILIRUBIN,TOTAL 1.9 mg/dl (0.2-1.3); CREATININE 2.08 mg/dl (0.61-1.24)
[2016-07-31 07:13] LABS: ALBUMIN/GLOBULIN RATIO 1.37; CALCIUM 9.1 mg/dl (8.4-10.2); TOTAL PROTEIN 6.4 g/dl (6.1-8.1)
[2016-07-31] MEDS: SUCRALFATE 1 GM TAB PO SCH ×4 (08:34→22:18)
[2016-07-31] MEDS: APIXABAN 5 MG TABLET PO SCH ×2 (08:35→22:19)
[2016-07-31] MEDS: ASPIRIN (EC) 81 MG TAB PO SCH (08:35)
[2016-07-31] MEDS: ISOSORBIDE DINITRATE 10 MG TAB PO SCH ×3 (08:37→22:19)
[2016-07-31] MEDS: AMIODARONE 200 MG TAB PO SCH (08:37)
[2016-07-31] MEDS: METOLAZONE 2.5 MG TAB PO SCH (08:46)
--- NOTE | 2016-07-31 15:40 | CONS ---
Date/Time of Note Date/Time of Note DATE: 07/31/16 TIME: 15:31 Assessment/Plan Assessment/Plan Chief Complaint/Hosp Course IMPRESSION: 1. Congestive heart failure exacerbation, systolic, acute on chronic.-negative troponin x 3. EF 25% by most recent echo-worsening 2. Shortness of breath secondary to #1. 3. History of coronary artery bypass graft surgery. Assess for acute coronary syndrome. 4. Abnormal electrocardiogram . Assess for acute coronary syndrome.-negative troponin x3 5. History of paroxysmal atrial fibrillation, on apixaban and amiodarone. 6. Acute renal failure-worsening 7. Hypertension,currently uncontrolled 8. Anemia, mild. 9. Coagulopathy secondary to apixaban. Rec: -tele -serial ecg's -Continue amiodarone -Continue coreg and hydralazine/isordil as tolerated -Lasix diuresis increased per renal with addition of metolazone. 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 -s/p dose digoxin IVP to increase contractility -Continue asa/apixaban for now -Follow volume status and renal fxn closely and will consider ultrafiltration and/or transfer to ICU for fixed low dose dobutamine as necessary if unable to effectively diurese Problems: Consultation Date/Type/Reason Admit Date/Time Jul 18, 2016 at 14:06 Initial Consult Date 07/19/2016 Type of Consultation: Cardiology Reason for Consultation CHF Referring Provider: MURIEL EWING Exam/Review of Systems Vital Signs Vitals Vital Signs Date Time Temp Pulse Resp B/P Pulse Ox O2 Delivery O2 Flow Rate FiO2 07/31/16 12:08 60 07/31/16 11:35 97.0 20 107/56 96 07/31/16 08:15 Nasal Cannula 4.0 Intake and Output 07/30/16 07/30/16 07/31/16 15:00 23:00 07:00 Intake Total 400 ml 300 ml Output Total 200 ml 200 ml Balance 200 ml 100 ml Exam Review of Systems: CONSTITUTIONAL: No fevers, chills. PULMONARY: mild sob CARDIOVASCULAR: No chest pain/palpitations GASTROINTESTINAL: No nausea/vomiting. GENITOURINARY: No hematuria/dysuria. MUSCULOSKELETAL: No myagias/arthalgias. PSYCHIATRIC: The patient denies depression. NEUROLOGIC: lethargic Constitutional: alert, other Psych: no complaints Head: normocephalic ENMT: mucosa pink and moist Neck: jvd (9 cm water), supple Respiratory: diminished breath sounds (at bases/B) Cardiovascular: regular rate and rhythm Gastrointestinal: non-tender, soft Musculoskeletal: muscle tone (normal) Extremities: edema (none) Neurological: lethargic Results Result Diagram: 07/31/16 0630 07/31/16 0630 Results 24 hrs Laboratory Tests Test 07/30/16 16:58 07/30/16 21:04 07/31/16 06:30 07/31/16 07:28 Bedside Glucose 132 108 122 Alanine Aminotransferase (ALT/SGPT) 40 Albumin 3.7 Albumin/Globulin Ratio 1.37 Alkaline Phosphatase 136 H Anion Gap 20 H Aspartate Amino Transf (AST/SGOT) 34 Basophils # 0.0 Basophils % 0.1 Blood Urea Nitrogen 92 H Calcium Level 9.1 Carbon Dioxide Level 32 H Chloride Level 85 L Creatinine 2.08 H Direct Bilirubin 0.50 H Eosinophils # 0.0 Eosinophils % 0.4 Globulin 2.70 Glucose Level 104 Hematocrit 40.8 L Hemoglobin 12.6 L Indirect Bilirubin 1.4 H Lymphocytes # 0.6 L Lymphocytes % 6.7 L Mean Corpuscular Hemoglobin 25.1 L Mean Corpuscular Hemoglobin Concent 30.9 L Mean Corpuscular Volume 81.4 L Mean Platelet Volume 10.4 Monocytes # 0.8 Monocytes % 8.7 Neutrophils # 7.5 Neutrophils % 83.5 H Nucleated Red Blood Cells # 0.3 H Nucleated Red Blood Cells % 3.0 H Platelet Count 301 Potassium Level 4.3 Red Blood Count 5.01 Red Cell Distribution Width 21.2 H Sodium Level 133 L Total Bilirubin 1.9 H Total Protein 6.4 White Blood Count 8.9 # Test 07/31/16 11:32 Bedside Glucose 131 Medications Medications Current Medications Apixaban (Eliquis) 2.5 mg BID PO Last administered on 07/31/16 08:35; Admin Dose 2.5 MG; Start 07/18/16 at 21:00 Aspirin (Halfprin) 81 mg DAILY PO Last administered on 07/31/16 08:35; Admin Dose 81 MG; Start 07/19/16 at 09:00 Nitroglycerin (Nitroglycerin (Sl Tab) 0.4 Mg) 1 tab DAILY PRN SL CHEST PAIN; Start 07/18/16 at 15:30 Sucralfate (Carafate) 1 gm QID PO Last administered on 07/31/16 12:33; Admin Dose 1 GM; Start 07/18/16 at 17:00 Pantoprazole (Protonix Tab) 40 mg DAILY@06 PO Last administered on 07/31/16 05: 55; Admin Dose 40 MG; Start 07/19/16 at 06:00 Ondansetron HCl (Zofran Inj) 4 mg Q6H PRN IV NAUSEA AND/OR VOMITING Last administered on 07/23/16 00:24; Admin Dose 4 MG; Start 07/18/16 at 15:30 Acetaminophen (Tylenol Tab) 650 mg Q6H PRN PO PAIN LEVEL 1-3 OR FEVER Last administered on 07/29/16 00:15; Admin Dose 650 MG; Start 07/18/16 at 15:30 Acetaminophen (Tylenol Supp) 650 mg Q6H PRN [place] PAIN LEVEL 1-3 OR FEVER; Start 07/18/16 at 15:30 Docusate Sodium (Colace) 100 mg Q12H PRN PO CONSTIPATION Last administered on 20:19; Admin Dose 100 MG; Start 07/18/16 at 15:30 Magnesium Hydroxide (Milk Of Mag) 30 ml DAILY PRN PO CONSTIPATION Last administered on 07/28/16 23:03; Admin Dose 30 ML; Start 07/18/16 at 15:30 Bisacodyl (Dulcolax Supp) 10 mg DAILY PRN [place] CONSTIPATION; Start 07/18/16 at 15 :30 Miscellaneous Information 1 ea NOTE XX ; Start 07/18/16 at 17:30 Glucose (Glutose) 15 gm Q15M PRN PO DECREASED GLUCOSE; Start 07/18/16 at 17:30 Glucose (Glutose) 22.5 gm Q15M PRN PO DECREASED GLUCOSE; Start 07/18/16 at 17: 30 Dextrose (D50w Syringe) 25 ml Q15M PRN IV DECREASED GLUCOSE; Start 07/18/16 at 17:30 Dextrose (D50w Syringe) 50 ml Q15M PRN IV DECREASED GLUCOSE; Start 07/18/16 at 17:30 Glucagon (Glucagen) 1 mg Q15M PRN IM DECREASED GLUCOSE; Start 07/18/16 at 17:30 Glucose (Glutose) 15 gm Q15M PRN BUCCAL DECREASED GLUCOSE; Start 07/18/16 at 17 :30 Guaifenesin/ Codeine Phosphate (Robitussin Ac Liquid Cup) 10 ml Q4H PRN PO COUGH Last administered on 07/19/16 19:43; Admin Dose 10 ML; Start 07/18/16 at 23:30 Amiodarone HCl (Cordarone) 200 mg DAILY PO Last administered on 07/31/16 08:37 ; Admin Dose 200 MG; Start 07/20/16 at 09:00 Carvedilol (Coreg) 3.125 mg BID PO Last administered on 07/31/16 08:37; Admin Dose 3.125 MG; Start 07/24/16 at 09:00 Hydralazine HCl (Apresoline) 10 mg Q8 PO Last administered on 07/31/16 05:55; Admin Dose 10 MG; Start 07/29/16 at 14:00 Lactulose (Enulose) 20 gm Q8 PO Last administered on 07/31/16 05:54; Admin Dose 20 GM; Start 07/30/16 at 14:00 Isosorbide Dinitrate (Isordil) 10 mg TID PO Last administered on 07/31/16 08:37 ; Admin Dose 10 MG; Start 07/30/16 at 21:00 Furosemide (Lasix) 40 mg Q8 IV Last administered on 07/31/16 05:55; Admin Dose 40 MG; Start 07/31/16 at 06:00 Metolazone (Zaroxolyn) 2.5 mg DAILY PO Last administered on 07/31/16 08:46; Admin Dose 2.5 MG; Start 07/31/16 at 09:00 POLI SAN Jul 31, 2016 15:40
--- NOTE | 2016-07-31 16:46 | PN ---
Date/Time of Note Date/Time of Note DATE: 07/31/16 TIME: 16:41 Assessment/Plan VTE Prophylaxis VTE Prophylaxis Intervention: other Lines/Catheters IV C[facility]ter Type (from [facility] Urinary Cath still in place: No Assessment/Plan Chief Complaint/Hosp Course 1. Acute on chronic congestive heart failure-decompensated -cont Lasix and Metolazone 2. Ischemic cardiomyopathy with ejection fraction of 25%.s/p AICD in place 3. Hx of DM -A1C at 5.9 -DC NISS 4. Atrial fibrillation, rate controlled -cont Eliquis and BB 5. History of CAD status post CABG 6. Acute on likely chronic kidney disease 2/2 cardiorenal syndrome-worsening -Discussed with Renal and pt has rising BUN and perpetual cardiorenal syndrome and hence will initiate HD for Fluid removal and Uremic Syndrome 7. 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 Debility - for arrangement of HH -PT following 9. Cirrhosis -Noted last year on Abd US -Hep panel is negative, etiology may be 2/2 manager intermediate CHF and/or ARVIZU PPx- on Eliquis Problems: Subjective 24 Hr Interval Summary Constitutional: disoriented Exam/Review of Systems Vital Signs Vitals Vital Signs Date Time Temp Pulse Resp B/P Pulse Ox O2 Delivery O2 Flow Rate FiO2 07/31/16 16:28 60 07/31/16 15:49 97.7 20 112/58 97 07/31/16 08:15 Nasal Cannula 4.0 Intake and Output 07/30/16 07/30/16 07/31/16 15:00 23:00 07:00 Intake Total 400 ml 300 ml Output Total 200 ml 200 ml Balance 200 ml 100 ml Exam Psych: confusion Respiratory: clear to auscultation Cardiovascular: regular rate and rhythm Gastrointestinal: soft, No distended Musculoskeletal: nl extremities to inspection Results Result Diagram: 07/31/16 0630 07/31/16 0630 Results 24 hrs Laboratory Tests Test 07/30/16 16:58 07/30/16 21:04 07/31/16 06:30 07/31/16 07:28 Bedside Glucose 132 108 122 Alanine Aminotransferase (ALT/SGPT) 40 Albumin 3.7 Albumin/Globulin Ratio 1.37 Alkaline Phosphatase 136 H Anion Gap 20 H Aspartate Amino Transf (AST/SGOT) 34 Basophils # 0.0 Basophils % 0.1 Blood Urea Nitrogen 92 H Calcium Level 9.1 Carbon Dioxide Level 32 H Chloride Level 85 L Creatinine 2.08 H Direct Bilirubin 0.50 H Eosinophils # 0.0 Eosinophils % 0.4 Globulin 2.70 Glucose Level 104 Hematocrit 40.8 L Hemoglobin 12.6 L Indirect Bilirubin 1.4 H Lymphocytes # 0.6 L Lymphocytes % 6.7 L Mean Corpuscular Hemoglobin 25.1 L Mean Corpuscular Hemoglobin Concent 30.9 L Mean Corpuscular Volume 81.4 L Mean Platelet Volume 10.4 Monocytes # 0.8 Monocytes % 8.7 Neutrophils # 7.5 Neutrophils % 83.5 H Nucleated Red Blood Cells # 0.3 H Nucleated Red Blood Cells % 3.0 H Platelet Count 301 Potassium Level 4.3 Red Blood Count 5.01 Red Cell Distribution Width 21.2 H Sodium Level 133 L Total Bilirubin 1.9 H Total Protein 6.4 White Blood Count 8.9 # Test 07/31/16 11:32 Bedside Glucose 131 Medications Medications Current Medications Apixaban (Eliquis) 2.5 mg BID PO Last administered on 07/31/16 08:35; Admin Dose 2.5 MG; Start 07/18/16 at 21:00 Aspirin (Halfprin) 81 mg DAILY PO Last administered on 07/31/16 08:35; Admin Dose 81 MG; Start 07/19/16 at 09:00 Nitroglycerin (Nitroglycerin (Sl Tab) 0.4 Mg) 1 tab DAILY PRN SL CHEST PAIN; Start 07/18/16 at 15:30 Sucralfate (Carafate) 1 gm QID PO Last administered on 07/31/16 12:33; Admin Dose 1 GM; Start 07/18/16 at 17:00 Pantoprazole (Protonix Tab) 40 mg DAILY@06 PO Last administered on 07/31/16 05: 55; Admin Dose 40 MG; Start 07/19/16 at 06:00 Ondansetron HCl (Zofran Inj) 4 mg Q6H PRN IV NAUSEA AND/OR VOMITING Last administered on 07/23/16 00:24; Admin Dose 4 MG; Start 07/18/16 at 15:30 Acetaminophen (Tylenol Tab) 650 mg Q6H PRN PO PAIN LEVEL 1-3 OR FEVER Last administered on 07/29/16 00:15; Admin Dose 650 MG; Start 07/18/16 at 15:30 Acetaminophen (Tylenol Supp) 650 mg Q6H PRN [place] PAIN LEVEL 1-3 OR FEVER; Start 07/18/16 at 15:30 Docusate Sodium (Colace) 100 mg Q12H PRN PO CONSTIPATION Last administered on 20:19; Admin Dose 100 MG; Start 07/18/16 at 15:30 Magnesium Hydroxide (Milk Of Mag) 30 ml DAILY PRN PO CONSTIPATION Last administered on 07/28/16 23:03; Admin Dose 30 ML; Start 07/18/16 at 15:30 Bisacodyl (Dulcolax Supp) 10 mg DAILY PRN [place] CONSTIPATION; Start 07/18/16 at 15 :30 Miscellaneous Information 1 ea NOTE XX ; Start 07/18/16 at 17:30 Glucose (Glutose) 15 gm Q15M PRN PO DECREASED GLUCOSE; Start 07/18/16 at 17:30 Glucose (Glutose) 22.5 gm Q15M PRN PO DECREASED GLUCOSE; Start 07/18/16 at 17: 30 Dextrose (D50w Syringe) 25 ml Q15M PRN IV DECREASED GLUCOSE; Start 07/18/16 at 17:30 Dextrose (D50w Syringe) 50 ml Q15M PRN IV DECREASED GLUCOSE; Start 07/18/16 at 17:30 Glucagon (Glucagen) 1 mg Q15M PRN IM DECREASED GLUCOSE; Start 07/18/16 at 17:30 Glucose (Glutose) 15 gm Q15M PRN BUCCAL DECREASED GLUCOSE; Start 07/18/16 at 17 :30 Guaifenesin/ Codeine Phosphate (Robitussin Ac Liquid Cup) 10 ml Q4H PRN PO COUGH Last administered on 07/19/16 19:43; Admin Dose 10 ML; Start 07/18/16 at 23:30 Amiodarone HCl (Cordarone) 200 mg DAILY PO Last administered on 07/31/16 08:37 ; Admin Dose 200 MG; Start 07/20/16 at 09:00 Carvedilol (Coreg) 3.125 mg BID PO Last administered on 07/31/16 08:37; Admin Dose 3.125 MG; Start 07/24/16 at 09:00 Hydralazine HCl (Apresoline) 10 mg Q8 PO Last administered on 07/31/16 15:40; Admin Dose 10 MG; Start 07/29/16 at 14:00 Lactulose (Enulose) 20 gm Q8 PO Last administered on 07/31/16 15:33; Admin Dose 20 GM; Start 07/30/16 at 14:00 Isosorbide Dinitrate (Isordil) 10 mg TID PO Last administered on 07/31/16 08:37 ; Admin Dose 10 MG; Start 07/30/16 at 21:00 Furosemide (Lasix) 40 mg Q8 IV Last administered on 07/31/16 15:39; Admin Dose 40 MG; Start 07/31/16 at 06:00 Metolazone (Zaroxolyn) 2.5 mg DAILY PO Last administered on 07/31/16 08:46; Admin Dose 2.5 MG; Start 07/31/16 at 09:00 MURIEL EWING Jul 31, 2016 16:46
--- NOTE | 2016-07-31 17:15 | CONS ---
Date/Time of Note Date/Time of Note DATE: 07/31/16 TIME: 17:12 Assessment/Plan Assessment/Plan Chief Complaint/Hosp Course 1. Patient has acute on chronic renal failure with acute kidney injury due to systolic heart failure. 2. The patient has hypertension. 3. Anemia. 4. ASHD 5. Acute urinary tract infection. 6 LOW EF 7 hyperkalemia HX 8 afib 9 hyponatremia observe PLAN CONTINUE LASIX TID METALAZONE PT/OT IF NO RESPONSE CONSIDER ULTRAFIILTERATION D/W FAMILY [place] W DIALYSIS Problems: Consultation Date/Type/Reason Admit Date/Time Jul 18, 2016 at 14:06 Type of Consultation: RENAL Referring Provider: MURIEL EWING 24 HR Interval Summary Constitutional: other (STILL SOB+) Exam/Review of Systems Vital Signs Vitals Vital Signs Date Time Temp Pulse Resp B/P Pulse Ox O2 Delivery O2 Flow Rate FiO2 07/31/16 16:28 60 07/31/16 15:49 97.7 20 112/58 97 07/31/16 08:15 Nasal Cannula 4.0 Intake and Output 07/30/16 07/30/16 07/31/16 15:00 23:00 07:00 Intake Total 400 ml 300 ml Output Total 200 ml 200 ml Balance 200 ml 100 ml Exam Neck: supple Respiratory: diminished breath sounds Cardiovascular: regular rate and rhythm Gastrointestinal: soft Musculoskeletal: nl extremities to inspection Results Result Diagram: 07/31/16 0630 07/31/16 0630 Results 24 hrs Laboratory Tests Test 07/30/16 21:04 07/31/16 06:30 07/31/16 07:28 07/31/16 11:32 Bedside Glucose 108 122 131 Alanine Aminotransferase (ALT/SGPT) 40 Albumin 3.7 Albumin/Globulin Ratio 1.37 Alkaline Phosphatase 136 H Anion Gap 20 H Aspartate Amino Transf (AST/SGOT) 34 Basophils # 0.0 Basophils % 0.1 Blood Urea Nitrogen 92 H Calcium Level 9.1 Carbon Dioxide Level 32 H Chloride Level 85 L Creatinine 2.08 H Direct Bilirubin 0.50 H Eosinophils # 0.0 Eosinophils % 0.4 Globulin 2.70 Glucose Level 104 Hematocrit 40.8 L Hemoglobin 12.6 L Indirect Bilirubin 1.4 H Lymphocytes # 0.6 L Lymphocytes % 6.7 L Mean Corpuscular Hemoglobin 25.1 L Mean Corpuscular Hemoglobin Concent 30.9 L Mean Corpuscular Volume 81.4 L Mean Platelet Volume 10.4 Monocytes # 0.8 Monocytes % 8.7 Neutrophils # 7.5 Neutrophils % 83.5 H Nucleated Red Blood Cells # 0.3 H Nucleated Red Blood Cells % 3.0 H Platelet Count 301 Potassium Level 4.3 Red Blood Count 5.01 Red Cell Distribution Width 21.2 H Sodium Level 133 L Total Bilirubin 1.9 H Total Protein 6.4 White Blood Count 8.9 # Medications Medications Current Medications Apixaban (Eliquis) 2.5 mg BID PO Last administered on 07/31/16 08:35; Admin Dose 2.5 MG; Start 07/18/16 at 21:00 Aspirin (Halfprin) 81 mg DAILY PO Last administered on 07/31/16 08:35; Admin Dose 81 MG; Start 07/19/16 at 09:00 Nitroglycerin (Nitroglycerin (Sl Tab) 0.4 Mg) 1 tab DAILY PRN SL CHEST PAIN; Start 07/18/16 at 15:30 Sucralfate (Carafate) 1 gm QID PO Last administered on 07/31/16 12:33; Admin Dose 1 GM; Start 07/18/16 at 17:00 Pantoprazole (Protonix Tab) 40 mg DAILY@06 PO Last administered on 07/31/16 05: 55; Admin Dose 40 MG; Start 07/19/16 at 06:00 Ondansetron HCl (Zofran Inj) 4 mg Q6H PRN IV NAUSEA AND/OR VOMITING Last administered on 07/23/16 00:24; Admin Dose 4 MG; Start 07/18/16 at 15:30 Acetaminophen (Tylenol Tab) 650 mg Q6H PRN PO PAIN LEVEL 1-3 OR FEVER Last administered on 07/29/16 00:15; Admin Dose 650 MG; Start 07/18/16 at 15:30 Acetaminophen (Tylenol Supp) 650 mg Q6H PRN [place] PAIN LEVEL 1-3 OR FEVER; Start 07/18/16 at 15:30 Docusate Sodium (Colace) 100 mg Q12H PRN PO CONSTIPATION Last administered on 20:19; Admin Dose 100 MG; Start 07/18/16 at 15:30 Magnesium Hydroxide (Milk Of Mag) 30 ml DAILY PRN PO CONSTIPATION Last administered on 07/28/16 23:03; Admin Dose 30 ML; Start 07/18/16 at 15:30 Bisacodyl (Dulcolax Supp) 10 mg DAILY PRN [place] CONSTIPATION; Start 07/18/16 at 15 :30 Miscellaneous Information 1 ea NOTE XX ; Start 07/18/16 at 17:30 Glucose (Glutose) 15 gm Q15M PRN PO DECREASED GLUCOSE; Start 07/18/16 at 17:30 Glucose (Glutose) 22.5 gm Q15M PRN PO DECREASED GLUCOSE; Start 07/18/16 at 17: 30 Dextrose (D50w Syringe) 25 ml Q15M PRN IV DECREASED GLUCOSE; Start 07/18/16 at 17:30 Dextrose (D50w Syringe) 50 ml Q15M PRN IV DECREASED GLUCOSE; Start 07/18/16 at 17:30 Glucagon (Glucagen) 1 mg Q15M PRN IM DECREASED GLUCOSE; Start 07/18/16 at 17:30 Glucose (Glutose) 15 gm Q15M PRN BUCCAL DECREASED GLUCOSE; Start 07/18/16 at 17 :30 Guaifenesin/ Codeine Phosphate (Robitussin Ac Liquid Cup) 10 ml Q4H PRN PO COUGH Last administered on 07/19/16 19:43; Admin Dose 10 ML; Start 07/18/16 at 23:30 Amiodarone HCl (Cordarone) 200 mg DAILY PO Last administered on 07/31/16 08:37 ; Admin Dose 200 MG; Start 07/20/16 at 09:00 Carvedilol (Coreg) 3.125 mg BID PO Last administered on 07/31/16 08:37; Admin Dose 3.125 MG; Start 07/24/16 at 09:00 Hydralazine HCl (Apresoline) 10 mg Q8 PO Last administered on 07/31/16 15:40; Admin Dose 10 MG; Start 07/29/16 at 14:00 Lactulose (Enulose) 20 gm Q8 PO Last administered on 07/31/16 15:33; Admin Dose 20 GM; Start 07/30/16 at 14:00 Isosorbide Dinitrate (Isordil) 10 mg TID PO Last administered on 07/31/16 08:37 ; Admin Dose 10 MG; Start 07/30/16 at 21:00 Furosemide (Lasix) 40 mg Q8 IV Last administered on 07/31/16 15:39; Admin Dose 40 MG; Start 07/31/16 at 06:00 Metolazone (Zaroxolyn) 2.5 mg DAILY PO Last administered on 07/31/16 08:46; Admin Dose 2.5 MG; Start 07/31/16 at 09:00 YANIRA HART MD Jul 31, 2016 17:15
[2016-08-01] VITALS (17 sets, daily range): BP systolic 99–124; BP diastolic 53–60; PULSE 60; RESP 16–20
[2016-08-01] MEDS: FUROSEMIDE 40 MG INJ IV SCH ×2 (06:01→13:34)
[2016-08-01] MEDS: LACTULOSE 30ML CUP PO SCH (06:02)
[2016-08-01] MEDS: PANTOPRAZOLE (EC) 40 MG TAB PO SCH (06:02)
[2016-08-01 06:53] LABS: ADD SCAN DIFF NO
[2016-08-01 06:55] LABS: ABNORMAL IP MESSAGE 1; BASOPHILS % 0.1 % (0.0-2.0); EOSINOPHILS # 0.1 10^3/ul (0.0-0.5); EOSINOPHILS % 0.6 % (0.0-7.0); HEMATOCRIT 42.8 % (42.0-52.0); HEMOGLOBIN 14.5 g/dl (14.0-18.0); LYMPHOCYTES # 0.5 10^3/ul (0.8-2.9); MEAN CORPUSCULAR HEMOGLOBIN 27.5 pg (29.0-33.0); MEAN CORPUSCULAR HGB CONC 33.9 g/dl (32.0-37.0); MEAN CORPUSCULAR VOLUME 81.2 fl (82.0-101.0); MEAN PLATELET VOLUME 10.2 fl (7.4-10.4); MONOCYTE # 1.1 10^3/ul (0.3-0.9); MONOCYTES % 10.9 % (0.0-11.0); NEUTROPHIL # 8.2 10^3/ul (1.6-7.5); NUCLEATED RED BLOOD CELLS # 0.4 10^3/ul (0.0-0.0); NUCLEATED RED BLOOD CELLS% 3.7 /100WBC (0.0-0.0); PLATELET COUNT 316 10^3/UL (140-415); RED BLOOD COUNT 5.27 10^6/ul (4.70-6.10); RED CELL DISTRIBUTION WIDTH 21.3 % (11.5-14.5); WHITE BLOOD COUNT 9.8 10^3/ul (4.8-10.8)
[2016-08-01 07:12] LABS: POTASSIUM 3.8 mmol/L (3.5-5.1)
[2016-08-01 07:15] LABS: CREATININE 2.35 mg/dl (0.61-1.24)
[2016-08-01 07:16] LABS: CALCIUM 9.2 mg/dl (8.4-10.2)
[2016-08-01] MEDS: METOLAZONE 2.5 MG TAB PO SCH (08:20)
[2016-08-01] MEDS: ISOSORBIDE DINITRATE 10 MG TAB PO SCH ×3 (08:21→20:45)
[2016-08-01] MEDS: AMIODARONE 200 MG TAB PO SCH (08:21)
[2016-08-01] MEDS: SUCRALFATE 1 GM TAB PO SCH ×4 (08:22→20:44)
[2016-08-01] MEDS: APIXABAN 5 MG TABLET PO SCH ×2 (08:22→20:44)
[2016-08-01] MEDS: ASPIRIN (EC) 81 MG TAB PO SCH (08:22)
--- NOTE | 2016-08-01 14:19 | OPR ---
DATE OF OPERATION: 08/01/2016 OPERATIVE DIAGNOSIS: Renal failure. POSTOPERATIVE DIAGNOSIS: Renal failure. OPERATION PERFORMED: Right femoral hemodialysis catheter placement. SURGEON: Diomedes Antony MD ANESTHESIA: Local. CONSENT: Risks, benefits, complications, alternative therapies explained to the patient and the [facility], consent obtained. OPERATIVE TECHNIQUE: The patient was placed in supine position, prepped and draped in in usual ster ile fashion, 1% lidocaine was used throughout the operation for local anesthesia. Access was gained in the right femoral vein. Guidewire was advanced through without any difficulty. Subcutaneous ti ssues dilated. A 20 cm dialysis catheter advanced over guidewire, secured to skin using silk suture s. All ports of the catheter were aspirated and injected using saline solution. Patient tolerated procedure well. Dictated By: DIOMEDES MCHUGH/NTS Conf#: [id number] DID#: [id number]
--- NOTE | 2016-08-01 16:16 | PN ---
Date/Time of Note Date/Time of Note DATE: 08/01/16 TIME: 16:14 Assessment/Plan VTE Prophylaxis VTE Prophylaxis Intervention: other Lines/Catheters IV Catheter Type (from Nrs): Saline Lock Urinary Cath still in place: No Assessment/Plan Chief Complaint/Hosp Course 1. Acute on chronic congestive heart failure-decompensated -cont Lasix and Metolazone 2. Ischemic cardiomyopathy with ejection fraction of 25%.s/p AICD in place -Cards following 3. Hx of DM -A1C at 5.9 -DC NISS 4. Atrial fibrillation, rate controlled -cont Eliquis and BB 5. History of CAD status post CABG 6. Acute on likely chronic kidney disease 2/2 cardiorenal syndrome-worsening -Discussed with Renal and pt has rising BUN and perpetual cardiorenal syndrome and hence will initiate HD for Fluid removal and Uremic Syndrome 7. 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 Debility - for arrangement of HH -PT following 9. Cirrhosis -Noted last year on Abd US, Ammonia is nl -Hep panel is negative, etiology may be 2/2 mcc CHF and/or ARVIZU PPx- on Eliquis Problems: Subjective 24 Hr Interval Summary Constitutional: disoriented Exam/Review of Systems Vital Signs Vitals Vital Signs Date Time Temp Pulse Resp B/P Pulse Ox O2 Delivery O2 Flow Rate FiO2 08/01/16 16:13 60 08/01/16 16:10 97.7 16 107/53 98 07/31/16 20:00 Nasal Cannula 4.0 Intake and Output 07/31/16 07/31/16 08/01/16 15:00 23:00 07:00 Intake Total 600 ml Balance 600 ml Exam Psych: confusion Respiratory: clear to auscultation Cardiovascular: regular rate and rhythm Gastrointestinal: soft, No distended Musculoskeletal: nl extremities to inspection Results Result Diagram: 08/01/16 0607 08/01/16 0607 Results 24 hrs Laboratory Tests Test 08/01/16 06:07 Anion Gap 16 Basophils # 0.0 Basophils % 0.1 Blood Urea Nitrogen 107 H Calcium Level 9.2 Carbon Dioxide Level 34 H Chloride Level 86 L Creatinine 2.35 H Eosinophils # 0.1 Eosinophils % 0.6 Glucose Level 101 Hematocrit 42.8 Hemoglobin 14.5 Lymphocytes # 0.5 L Lymphocytes % 5.0 L Mean Corpuscular Hemoglobin 27.5 L Mean Corpuscular Hemoglobin Concent 33.9 Mean Corpuscular Volume 81.2 L Mean Platelet Volume 10.2 Monocytes # 1.1 H Monocytes % 10.9 Neutrophils # 8.2 H Neutrophils % 83.0 H Nucleated Red Blood Cells # 0.4 H Nucleated Red Blood Cells % 3.7 H Platelet Count 316 Potassium Level 3.8 Red Blood Count 5.27 Red Cell Distribution Width 21.3 H Sodium Level 132 L White Blood Count 9.8 Medications Medications Current Medications Apixaban (Eliquis) 2.5 mg BID PO Last administered on 08/01/16 08:22; Admin Dose 2.5 MG; Start 07/18/16 at 21:00 Aspirin (Halfprin) 81 mg DAILY PO Last administered on 08/01/16 08:22; Admin Dose 81 MG; Start 07/19/16 at 09:00 Nitroglycerin (Nitroglycerin (Sl Tab) 0.4 Mg) 1 tab DAILY PRN SL CHEST PAIN; Start 07/18/16 at 15:30 Sucralfate (Carafate) 1 gm QID PO Last administered on 08/01/16 13:22; Admin Dose 1 GM; Start 07/18/16 at 17:00 Pantoprazole (Protonix Tab) 40 mg DAILY@06 PO Last administered on 08/01/16 06: 02; Admin Dose 40 MG; Start 07/19/16 at 06:00 Ondansetron HCl (Zofran Inj) 4 mg Q6H PRN IV NAUSEA AND/OR VOMITING Last administered on 07/23/16 00:24; Admin Dose 4 MG; Start 07/18/16 at 15:30 Acetaminophen (Tylenol Tab) 650 mg Q6H PRN PO PAIN LEVEL 1-3 OR FEVER Last administered on 07/29/16 00:15; Admin Dose 650 MG; Start 07/18/16 at 15:30 Acetaminophen (Tylenol Supp) 650 mg Q6H PRN [place] PAIN LEVEL 1-3 OR FEVER; Start 07/18/16 at 15:30 Docusate Sodium (Colace) 100 mg Q12H PRN PO CONSTIPATION Last administered on 20:19; Admin Dose 100 MG; Start 07/18/16 at 15:30 Magnesium Hydroxide (Milk Of Mag) 30 ml DAILY PRN PO CONSTIPATION Last administered on 07/28/16 23:03; Admin Dose 30 ML; Start 07/18/16 at 15:30 Bisacodyl (Dulcolax Supp) 10 mg DAILY PRN [place] CONSTIPATION; Start 07/18/16 at 15 :30 Miscellaneous Information 1 ea NOTE XX ; Start 07/18/16 at 17:30 Glucose (Glutose) 15 gm Q15M PRN PO DECREASED GLUCOSE; Start 07/18/16 at 17:30 Glucose (Glutose) 22.5 gm Q15M PRN PO DECREASED GLUCOSE; Start 07/18/16 at 17: 30 Dextrose (D50w Syringe) 25 ml Q15M PRN IV DECREASED GLUCOSE; Start 07/18/16 at 17:30 Dextrose (D50w Syringe) 50 ml Q15M PRN IV DECREASED GLUCOSE; Start 07/18/16 at 17:30 Glucagon (Glucagen) 1 mg Q15M PRN IM DECREASED GLUCOSE; Start 07/18/16 at 17:30 Glucose (Glutose) 15 gm Q15M PRN BUCCAL DECREASED GLUCOSE; Start 07/18/16 at 17 :30 Guaifenesin/ Codeine Phosphate (Robitussin Ac Liquid Cup) 10 ml Q4H PRN PO COUGH Last administered on 07/19/16 19:43; Admin Dose 10 ML; Start 07/18/16 at 23:30 Amiodarone HCl (Cordarone) 200 mg DAILY PO Last administered on 08/01/16 08:21 ; Admin Dose 200 MG; Start 07/20/16 at 09:00 Carvedilol (Coreg) 3.125 mg BID PO Last administered on 08/01/16 08:22; Admin Dose 3.125 MG; Start 07/24/16 at 09:00 Hydralazine HCl (Apresoline) 10 mg Q8 PO Last administered on 08/01/16 13:34; Admin Dose 10 MG; Start 07/29/16 at 14:00 Isosorbide Dinitrate (Isordil) 10 mg TID PO Last administered on 08/01/16 13:22 ; Admin Dose 10 MG; Start 07/30/16 at 21:00 Furosemide (Lasix) 40 mg Q8 IV Last administered on 08/01/16 13:34; Admin Dose 40 MG; Start 07/31/16 at 06:00 Metolazone (Zaroxolyn) 2.5 mg DAILY PO Last administered on 08/01/16 08:20; Admin Dose 2.5 MG; Start 07/31/16 at 09:00 Mannitol (Mannitol 25%) 12.5 gm ONCE ONCE IV* ; Start 08/01/16 at 17:00; Stop at 17:01 MURIEL EWING Aug 01, 2016 16:16
[2016-08-01] MEDS ORDERED: MANNITOL 25% 50 ML INJ IV* ONE (17:00)
--- NOTE | 2016-08-01 17:20 | CONS ---
Date/Time of Note Date/Time of Note DATE: 08/01/16 TIME: 17:19 Assessment/Plan Assessment/Plan Chief Complaint/Hosp Course 1. Patient has acute on chronic renal failure with acute kidney injury due to systolic heart failure. 2. The patient has hypertension. 3. Anemia. 4. ASHD 5. Acute urinary tract infection. 6 LOW EF 7 hyperkalemia HX 8 afib PLAN CONTINUE LASIX TID METALAZONE PT/OT IF NO RESPONSE CONSIDER ULTRAFIILTERATION D/W FAMILY [place] W DIALYSIS HD TODAY Problems: Consultation Date/Type/Reason Admit Date/Time Jul 18, 2016 at 14:06 Type of Consultation: RENAL Referring Provider: MURIEL EWING 24 HR Interval Summary Constitutional: no complaints (WEAKNESS+) Exam/Review of Systems Vital Signs Vitals Vital Signs Date Time Temp Pulse Resp B/P Pulse Ox O2 Delivery O2 Flow Rate FiO2 08/01/16 16:13 60 08/01/16 16:10 97.7 16 107/53 98 08/01/16 08:20 Nasal Cannula 4.0 Intake and Output 07/31/16 07/31/16 08/01/16 15:00 23:00 07:00 Intake Total 600 ml Balance 600 ml Exam Neck: supple Respiratory: diminished breath sounds Cardiovascular: regular rate and rhythm Gastrointestinal: soft Musculoskeletal: nl extremities to inspection Extremities: normal pulses 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, nl mental status Results Result Diagram: 08/01/16 0607 08/01/16 0607 Results 24 hrs Laboratory Tests Test 08/01/16 06:07 Anion Gap 16 Basophils # 0.0 Basophils % 0.1 Blood Urea Nitrogen 107 H Calcium Level 9.2 Carbon Dioxide Level 34 H Chloride Level 86 L Creatinine 2.35 H Eosinophils # 0.1 Eosinophils % 0.6 Glucose Level 101 Hematocrit 42.8 Hemoglobin 14.5 Lymphocytes # 0.5 L Lymphocytes % 5.0 L Mean Corpuscular Hemoglobin 27.5 L Mean Corpuscular Hemoglobin Concent 33.9 Mean Corpuscular Volume 81.2 L Mean Platelet Volume 10.2 Monocytes # 1.1 H Monocytes % 10.9 Neutrophils # 8.2 H Neutrophils % 83.0 H Nucleated Red Blood Cells # 0.4 H Nucleated Red Blood Cells % 3.7 H Platelet Count 316 Potassium Level 3.8 Red Blood Count 5.27 Red Cell Distribution Width 21.3 H Sodium Level 132 L White Blood Count 9.8 Medications Medications Current Medications Apixaban (Eliquis) 2.5 mg BID PO Last administered on 08/01/16 08:22; Admin Dose 2.5 MG; Start 07/18/16 at 21:00 Aspirin (Halfprin) 81 mg DAILY PO Last administered on 08/01/16 08:22; Admin Dose 81 MG; Start 07/19/16 at 09:00 Nitroglycerin (Nitroglycerin (Sl Tab) 0.4 Mg) 1 tab DAILY PRN SL CHEST PAIN; Start 07/18/16 at 15:30 Sucralfate (Carafate) 1 gm QID PO Last administered on 08/01/16 13:22; Admin Dose 1 GM; Start 07/18/16 at 17:00 Pantoprazole (Protonix Tab) 40 mg DAILY@06 PO Last administered on 08/01/16 06: 02; Admin Dose 40 MG; Start 07/19/16 at 06:00 Ondansetron HCl (Zofran Inj) 4 mg Q6H PRN IV NAUSEA AND/OR VOMITING Last administered on 07/23/16 00:24; Admin Dose 4 MG; Start 07/18/16 at 15:30 Acetaminophen (Tylenol Tab) 650 mg Q6H PRN PO PAIN LEVEL 1-3 OR FEVER Last administered on 07/29/16 00:15; Admin Dose 650 MG; Start 07/18/16 at 15:30 Acetaminophen (Tylenol Supp) 650 mg Q6H PRN [place] PAIN LEVEL 1-3 OR FEVER; Start 07/18/16 at 15:30 Docusate Sodium (Colace) 100 mg Q12H PRN PO CONSTIPATION Last administered on 20:19; Admin Dose 100 MG; Start 07/18/16 at 15:30 Magnesium Hydroxide (Milk Of Mag) 30 ml DAILY PRN PO CONSTIPATION Last administered on 07/28/16 23:03; Admin Dose 30 ML; Start 07/18/16 at 15:30 Bisacodyl (Dulcolax Supp) 10 mg DAILY PRN [place] CONSTIPATION; Start 07/18/16 at 15 :30 Miscellaneous Information 1 ea NOTE XX ; Start 07/18/16 at 17:30 Glucose (Glutose) 15 gm Q15M PRN PO DECREASED GLUCOSE; Start 07/18/16 at 17:30 Glucose (Glutose) 22.5 gm Q15M PRN PO DECREASED GLUCOSE; Start 07/18/16 at 17: 30 Dextrose (D50w Syringe) 25 ml Q15M PRN IV DECREASED GLUCOSE; Start 07/18/16 at 17:30 Dextrose (D50w Syringe) 50 ml Q15M PRN IV DECREASED GLUCOSE; Start 07/18/16 at 17:30 Glucagon (Glucagen) 1 mg Q15M PRN IM DECREASED GLUCOSE; Start 07/18/16 at 17:30 Glucose (Glutose) 15 gm Q15M PRN BUCCAL DECREASED GLUCOSE; Start 07/18/16 at 17 :30 Guaifenesin/ Codeine Phosphate (Robitussin Ac Liquid Cup) 10 ml Q4H PRN PO COUGH Last administered on 07/19/16 19:43; Admin Dose 10 ML; Start 07/18/16 at 23:30 Amiodarone HCl (Cordarone) 200 mg DAILY PO Last administered on 08/01/16 08:21 ; Admin Dose 200 MG; Start 07/20/16 at 09:00 Carvedilol (Coreg) 3.125 mg BID PO Last administered on 08/01/16 08:22; Admin Dose 3.125 MG; Start 07/24/16 at 09:00 Hydralazine HCl (Apresoline) 10 mg Q8 PO Last administered on 08/01/16 13:34; Admin Dose 10 MG; Start 07/29/16 at 14:00 Isosorbide Dinitrate (Isordil) 10 mg TID PO Last administered on 08/01/16 13:22 ; Admin Dose 10 MG; Start 07/30/16 at 21:00 Metolazone (Zaroxolyn) 2.5 mg DAILY PO Last administered on 08/01/16 08:20; Admin Dose 2.5 MG; Start 07/31/16 at 09:00 Furosemide (Lasix) 40 mg DAILY IV ; Start 08/02/16 at 09:00 YANIRA HART MD Aug 01, 2016 17:20
--- NOTE | 2016-08-01 21:39 | RADRPT ---
PROCEDURE: XR Chest. CLINICAL INDICATION: Follow-up of congestive heart failure. TECHNIQUE: Portable AP semi erect view of the chest was obtained. COMPARISON: 07/29/2016 FINDINGS: The cardiomediastinal silhouette is markedly enlarged with single chamber left subclavian approach c ardiac pacemaker again noted. The degree of pulmonary vascular congestion has decreased but has not resolved compared to the prior examination. Small bilateral pleural effusions are again noted slig htly greater on the left and not significantly changed. There is no evidence of pneumothorax. Ster notomy wires are again noted without evidence of acute osseous abnormality. Calcification is again v isible within the aorta. RPTAT:HJJR IMPRESSION: Slight interval radiographic improvement in the congestive heart failure pattern as compared to 05/2016 in this patient with marked cardiomegaly, post thoracotomy changes and a cardiac pacemaker. S mall bilateral pleural effusions are unchanged. Physician Lion Date Time Electronically viewed and signed by Physician Lion on 08/01/2016 21:39 JR/
[2016-08-02] VITALS (20 sets, daily range): BP systolic 102–118; BP diastolic 48–67; PULSE 60–67; RESP 16–18
[2016-08-02 06:02] LABS: ADD SCAN DIFF NO
[2016-08-02 06:16] LABS: ABNORMAL IP MESSAGE 1; BASOPHILS % 0.1 % (0.0-2.0); EOSINOPHILS # 0.1 10^3/ul (0.0-0.5); EOSINOPHILS % 0.6 % (0.0-7.0); HEMATOCRIT 38.8 % (42.0-52.0); HEMOGLOBIN 11.9 g/dl (14.0-18.0); LYMPHOCYTES # 0.4 10^3/ul (0.8-2.9); LYMPHOCYTES % 4.3 % (15.0-51.0); MEAN CORPUSCULAR HEMOGLOBIN 25.1 pg (29.0-33.0); MEAN CORPUSCULAR HGB CONC 30.7 g/dl (32.0-37.0); MEAN CORPUSCULAR VOLUME 81.9 fl (82.0-101.0); MEAN PLATELET VOLUME 10.4 fl (7.4-10.4); MONOCYTE # 0.7 10^3/ul (0.3-0.9); MONOCYTES % 8.8 % (0.0-11.0); NEUTROPHIL # 7.2 10^3/ul (1.6-7.5); NEUTROPHILS % 85.6 % (39.0-77.0); NUCLEATED RED BLOOD CELLS # 0.2 10^3/ul (0.0-0.0); NUCLEATED RED BLOOD CELLS% 2.7 /100WBC (0.0-0.0); PLATELET COUNT 249 10^3/UL (140-415); RED BLOOD COUNT 4.74 10^6/ul (4.70-6.10); RED CELL DISTRIBUTION WIDTH 21.1 % (11.5-14.5); WHITE BLOOD COUNT 8.4 10^3/ul (4.8-10.8)
[2016-08-02] MEDS: ACETAMINOPHEN 325 MG TAB PO PRN ×2 (06:20→15:25)
[2016-08-02] MEDS: PANTOPRAZOLE (EC) 40 MG TAB PO SCH (06:21)
[2016-08-02 07:01] LABS: POTASSIUM 3.6 mmol/L (3.5-5.1)
[2016-08-02 07:04] LABS: CREATININE 1.85 mg/dl (0.61-1.24)
[2016-08-02 07:05] LABS: CALCIUM 8.8 mg/dl (8.4-10.2)
[2016-08-02] MEDS: SUCRALFATE 1 GM TAB PO SCH ×4 (09:41→21:03)
[2016-08-02] MEDS: METOLAZONE 2.5 MG TAB PO SCH (09:43)
[2016-08-02] MEDS: ISOSORBIDE DINITRATE 10 MG TAB PO SCH ×3 (09:44→21:08)
[2016-08-02] MEDS: ASPIRIN (EC) 81 MG TAB PO SCH (09:46)
[2016-08-02] MEDS: APIXABAN 5 MG TABLET PO SCH ×2 (09:46→21:08)
[2016-08-02] MEDS: AMIODARONE 200 MG TAB PO SCH (09:47)
[2016-08-02] MEDS: FUROSEMIDE 40 MG INJ IV SCH (10:00)
--- NOTE | 2016-08-02 13:28 | PN ---
Date/Time of Note Date/Time of Note DATE: 08/02/16 TIME: 13:19 Assessment/Plan VTE Prophylaxis VTE Prophylaxis Intervention: other Lines/Catheters IV Catheter Type (from Nrs): Saline Lock Urinary Cath still in place: No Assessment/Plan Chief Complaint/Hosp Course 1. Acute on chronic congestive heart failure-decompensated -cont Lasix and Metolazone 2. Ischemic cardiomyopathy with ejection fraction of 25%.s/p AICD in place -Cards following 3. Hx of DM -A1C at 5.9 -DC NISS 4. Atrial fibrillation, rate controlled -cont Eliquis and BB 5. History of CAD status post CABG 6. Acute on likely chronic kidney disease 2/2 cardiorenal syndrome-progressing -Discussed with Renal and pt had rising BUN and perpetual cardiorenal syndrome and hence initiated HD last night for Fluid removal and Uremic Syndrome 7. 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 Debility - for arrangement of HH -PT following 9. 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 and/or ARVIZU PPx- on Eliquis Problems: Subjective 24 Hr Interval Summary Constitutional: disoriented Exam/Review of Systems Vital Signs Vitals Vital Signs Date Time Temp Pulse Resp B/P Pulse Ox O2 Delivery O2 Flow Rate FiO2 08/02/16 13:02 60 18 08/02/16 11:10 97.8 115/64 96 08/01/16 20:00 Nasal Cannula 4.0 Intake and Output 08/01/16 08/01/16 08/02/16 15:00 23:00 07:00 Intake Total 400 ml 250 ml 360 ml Output Total 600 ml 1000 ml Balance -200 ml -750 ml 360 ml Exam Psych: confusion Respiratory: clear to auscultation Cardiovascular: regular rate and rhythm Gastrointestinal: soft, No distended Musculoskeletal: nl extremities to inspection Results Result Diagram: 08/02/16 0528 08/02/16 0528 Results 24 hrs Laboratory Tests Test 08/02/16 05:28 Anion Gap 17 H Basophils # 0.0 Basophils % 0.1 Blood Urea Nitrogen 93 H Calcium Level 8.8 Carbon Dioxide Level 32 H Chloride Level 88 L Creatinine 1.85 H Eosinophils # 0.1 Eosinophils % 0.6 Glucose Level 106 Hematocrit 38.8 L Hemoglobin 11.9 L Lymphocytes # 0.4 L Lymphocytes % 4.3 L Mean Corpuscular Hemoglobin 25.1 L Mean Corpuscular Hemoglobin Concent 30.7 L Mean Corpuscular Volume 81.9 L Mean Platelet Volume 10.4 Monocytes # 0.7 Monocytes % 8.8 Neutrophils # 7.2 Neutrophils % 85.6 H Nucleated Red Blood Cells # 0.2 H Nucleated Red Blood Cells % 2.7 H Platelet Count 249 # Potassium Level 3.6 Red Blood Count 4.74 Red Cell Distribution Width 21.1 H Sodium Level 133 L White Blood Count 8.4 Medications Medications Current Medications Apixaban (Eliquis) 2.5 mg BID PO Last administered on 08/02/16 09:46; Admin Dose 2.5 MG; Start 07/18/16 at 21:00 Aspirin (Halfprin) 81 mg DAILY PO Last administered on 08/02/16 09:46; Admin Dose 81 MG; Start 07/19/16 at 09:00 Nitroglycerin (Nitroglycerin (Sl Tab) 0.4 Mg) 1 tab DAILY PRN SL CHEST PAIN; Start 07/18/16 at 15:30 Sucralfate (Carafate) 1 gm QID PO Last administered on 08/02/16 09:41; Admin Dose 1 GM; Start 07/18/16 at 17:00 Pantoprazole (Protonix Tab) 40 mg DAILY@06 PO Last administered on 08/02/16 06: 21; Admin Dose 40 MG; Start 07/19/16 at 06:00 Ondansetron HCl (Zofran Inj) 4 mg Q6H PRN IV NAUSEA AND/OR VOMITING Last administered on 07/23/16 00:24; Admin Dose 4 MG; Start 07/18/16 at 15:30 Acetaminophen (Tylenol Tab) 650 mg Q6H PRN PO PAIN LEVEL 1-3 OR FEVER Last administered on 08/02/16 06:20; Admin Dose 650 MG; Start 07/18/16 at 15:30 Acetaminophen (Tylenol Supp) 650 mg Q6H PRN [place] PAIN LEVEL 1-3 OR FEVER; Start 07/18/16 at 15:30 Docusate Sodium (Colace) 100 mg Q12H PRN PO CONSTIPATION Last administered on 20:19; Admin Dose 100 MG; Start 07/18/16 at 15:30 Magnesium Hydroxide (Milk Of Mag) 30 ml DAILY PRN PO CONSTIPATION Last administered on 07/28/16 23:03; Admin Dose 30 ML; Start 07/18/16 at 15:30 Bisacodyl (Dulcolax Supp) 10 mg DAILY PRN [place] CONSTIPATION; Start 07/18/16 at 15 :30 Miscellaneous Information 1 ea NOTE XX ; Start 07/18/16 at 17:30 Glucose (Glutose) 15 gm Q15M PRN PO DECREASED GLUCOSE; Start 07/18/16 at 17:30 Glucose (Glutose) 22.5 gm Q15M PRN PO DECREASED GLUCOSE; Start 07/18/16 at 17: 30 Dextrose (D50w Syringe) 25 ml Q15M PRN IV DECREASED GLUCOSE; Start 07/18/16 at 17:30 Dextrose (D50w Syringe) 50 ml Q15M PRN IV DECREASED GLUCOSE; Start 07/18/16 at 17:30 Glucagon (Glucagen) 1 mg Q15M PRN IM DECREASED GLUCOSE; Start 07/18/16 at 17:30 Glucose (Glutose) 15 gm Q15M PRN BUCCAL DECREASED GLUCOSE; Start 07/18/16 at 17 :30 Guaifenesin/ Codeine Phosphate (Robitussin Ac Liquid Cup) 10 ml Q4H PRN PO COUGH Last administered on 07/19/16 19:43; Admin Dose 10 ML; Start 07/18/16 at 23:30 Amiodarone HCl (Cordarone) 200 mg DAILY PO Last administered on 08/02/16 09:47 ; Admin Dose 200 MG; Start 07/20/16 at 09:00 Carvedilol (Coreg) 3.125 mg BID PO Last administered on 08/02/16 09:46; Admin Dose 3.125 MG; Start 07/24/16 at 09:00 Hydralazine HCl (Apresoline) 10 mg Q8 PO Last administered on 08/02/16 06:20; Admin Dose 10 MG; Start 07/29/16 at 14:00 Isosorbide Dinitrate (Isordil) 10 mg TID PO Last administered on 08/02/16 09:44 ; Admin Dose 10 MG; Start 07/30/16 at 21:00 Metolazone (Zaroxolyn) 2.5 mg DAILY PO Last administered on 08/02/16 09:43; Admin Dose 2.5 MG; Start 07/31/16 at 09:00 Furosemide (Lasix) 40 mg DAILY IV Last administered on 08/02/16 10:00; Admin Dose 40 MG; Start 08/02/16 at 09:00 MURIEL EWING Aug 02, 2016 13:28
--- NOTE | 2016-08-02 14:57 | CONS ---
Date/Time of Note Date/Time of Note DATE: 08/02/16 TIME: 14:55 Assessment/Plan Assessment/Plan Additional Assessment/Plan Congestive Heart Failure CAD s/p Bypass Surgery PAF Renal failure Hypertension Anemia Coagulopathy sec to Eliquis Hemodynamically stable Heart failure clinically compensated Continue diuresis with Lasix Continue Amiodarone Continue Coreg Continue Hydralazine Continue ASA Continue Eliquis HD per renal recommendations Consultation Date/Type/Reason Admit Date/Time Jul 18, 2016 at 14:06 Initial Consult Date Type of Consultation: RENAL Referring Provider: MURIEL EWING Exam/Review of Systems Vital Signs Vitals Vital Signs Date Time Temp Pulse Resp B/P Pulse Ox O2 Delivery O2 Flow Rate FiO2 08/02/16 13:30 60 08/02/16 13:02 18 08/02/16 11:10 97.8 115/64 96 08/01/16 20:00 Nasal Cannula 4.0 Intake and Output 08/01/16 08/01/16 08/02/16 15:00 23:00 07:00 Intake Total 400 ml 250 ml 360 ml Output Total 600 ml 1000 ml Balance -200 ml -750 ml 360 ml Exam Constitutional: alert Head: atraumatic, normocephalic Neck: non-tender, supple Respiratory: clear to auscultation Cardiovascular: regular rate and rhythm Gastrointestinal: nl liver, spleen, non-tender, soft Extremities: normal pulses Results Result Diagram: 08/02/16 0528 08/02/16 0528 Results 24 hrs Laboratory Tests Test 08/02/16 05:28 Anion Gap 17 H Basophils # 0.0 Basophils % 0.1 Blood Urea Nitrogen 93 H Calcium Level 8.8 Carbon Dioxide Level 32 H Chloride Level 88 L Creatinine 1.85 H Eosinophils # 0.1 Eosinophils % 0.6 Glucose Level 106 Hematocrit 38.8 L Hemoglobin 11.9 L Lymphocytes # 0.4 L Lymphocytes % 4.3 L Mean Corpuscular Hemoglobin 25.1 L Mean Corpuscular Hemoglobin Concent 30.7 L Mean Corpuscular Volume 81.9 L Mean Platelet Volume 10.4 Monocytes # 0.7 Monocytes % 8.8 Neutrophils # 7.2 Neutrophils % 85.6 H Nucleated Red Blood Cells # 0.2 H Nucleated Red Blood Cells % 2.7 H Platelet Count 249 # Potassium Level 3.6 Red Blood Count 4.74 Red Cell Distribution Width 21.1 H Sodium Level 133 L White Blood Count 8.4 Medications Medications Current Medications Apixaban (Eliquis) 2.5 mg BID PO Last administered on 08/02/16 09:46; Admin Dose 2.5 MG; Start 07/18/16 at 21:00 Aspirin (Halfprin) 81 mg DAILY PO Last administered on 08/02/16 09:46; Admin Dose 81 MG; Start 07/19/16 at 09:00 Nitroglycerin (Nitroglycerin (Sl Tab) 0.4 Mg) 1 tab DAILY PRN SL CHEST PAIN; Start 07/18/16 at 15:30 Sucralfate (Carafate) 1 gm QID PO Last administered on 08/02/16 09:41; Admin Dose 1 GM; Start 07/18/16 at 17:00 Pantoprazole (Protonix Tab) 40 mg DAILY@06 PO Last administered on 08/02/16 06: 21; Admin Dose 40 MG; Start 07/19/16 at 06:00 Ondansetron HCl (Zofran Inj) 4 mg Q6H PRN IV NAUSEA AND/OR VOMITING Last administered on 07/23/16 00:24; Admin Dose 4 MG; Start 07/18/16 at 15:30 Acetaminophen (Tylenol Tab) 650 mg Q6H PRN PO PAIN LEVEL 1-3 OR FEVER Last administered on 08/02/16 06:20; Admin Dose 650 MG; Start 07/18/16 at 15:30 Acetaminophen (Tylenol Supp) 650 mg Q6H PRN [place] PAIN LEVEL 1-3 OR FEVER; Start 07/18/16 at 15:30 Docusate Sodium (Colace) 100 mg Q12H PRN PO CONSTIPATION Last administered on 20:19; Admin Dose 100 MG; Start 07/18/16 at 15:30 Magnesium Hydroxide (Milk Of Mag) 30 ml DAILY PRN PO CONSTIPATION Last administered on 07/28/16 23:03; Admin Dose 30 ML; Start 07/18/16 at 15:30 Bisacodyl (Dulcolax Supp) 10 mg DAILY PRN [place] CONSTIPATION; Start 07/18/16 at 15 :30 Miscellaneous Information 1 ea NOTE XX ; Start 07/18/16 at 17:30 Glucose (Glutose) 15 gm Q15M PRN PO DECREASED GLUCOSE; Start 07/18/16 at 17:30 Glucose (Glutose) 22.5 gm Q15M PRN PO DECREASED GLUCOSE; Start 07/18/16 at 17: 30 Dextrose (D50w Syringe) 25 ml Q15M PRN IV DECREASED GLUCOSE; Start 07/18/16 at 17:30 Dextrose (D50w Syringe) 50 ml Q15M PRN IV DECREASED GLUCOSE; Start 07/18/16 at 17:30 Glucagon (Glucagen) 1 mg Q15M PRN IM DECREASED GLUCOSE; Start 07/18/16 at 17:30 Glucose (Glutose) 15 gm Q15M PRN BUCCAL DECREASED GLUCOSE; Start 07/18/16 at 17 :30 Guaifenesin/ Codeine Phosphate (Robitussin Ac Liquid Cup) 10 ml Q4H PRN PO COUGH Last administered on 07/19/16 19:43; Admin Dose 10 ML; Start 07/18/16 at 23:30 Amiodarone HCl (Cordarone) 200 mg DAILY PO Last administered on 08/02/16 09:47 ; Admin Dose 200 MG; Start 07/20/16 at 09:00 Carvedilol (Coreg) 3.125 mg BID PO Last administered on 08/02/16 09:46; Admin Dose 3.125 MG; Start 07/24/16 at 09:00 Hydralazine HCl (Apresoline) 10 mg Q8 PO Last administered on 08/02/16 06:20; Admin Dose 10 MG; Start 07/29/16 at 14:00 Isosorbide Dinitrate (Isordil) 10 mg TID PO Last administered on 08/02/16 09:44 ; Admin Dose 10 MG; Start 07/30/16 at 21:00 Metolazone (Zaroxolyn) 2.5 mg DAILY PO Last administered on 08/02/16 09:43; Admin Dose 2.5 MG; Start 07/31/16 at 09:00 Furosemide (Lasix) 40 mg DAILY IV Last administered on 08/02/16 10:00; Admin Dose 40 MG; Start 08/02/16 at 09:00 CLARISSA ENRIQUE M.D. Aug 02, 2016 14:57
--- NOTE | 2016-08-02 16:36 | CONS ---
Date/Time of Note Date/Time of Note DATE: 08/02/16 TIME: 16:34 Assessment/Plan Assessment/Plan Chief Complaint/Hosp Course 1. Patient has acute on chronic renal failure with acute kidney injury due to systolic heart failure.ON HD 2. The patient has LOW EF 3. Anemia. 4. ASHD 5. Acute urinary tract infection.BETTER 6 LOW EF 7 hyperkalemia HX 8 afib PLAN CONTINUE LASIX TID METALAZONE PT/OT SHORT HD W MANNITOL D/W FAMILY OK W DIALYSIS HD AM ALSO Problems: Consultation Date/Type/Reason Admit Date/Time Jul 18, 2016 at 14:06 Type of Consultation: RENAL Referring Provider: MURIEL EWING 24 HR Interval Summary Subjective hx not possible: other (S/P HD) Exam/Review of Systems Vital Signs Vitals Vital Signs Date Time Temp Pulse Resp B/P Pulse Ox O2 Delivery O2 Flow Rate FiO2 08/02/16 16:26 61 08/02/16 15:24 97.9 18 115/54 96 08/02/16 08:10 Nasal Cannula 4.0 Intake and Output 08/01/16 08/01/16 08/02/16 15:00 23:00 07:00 Intake Total 400 ml 250 ml 360 ml Output Total 600 ml 1000 ml Balance -200 ml -750 ml 360 ml Exam Respiratory: clear to auscultation Cardiovascular: regular rate and rhythm Gastrointestinal: soft Musculoskeletal: muscle weakness Extremities: No edema Results Result Diagram: 08/02/16 0528 08/02/16 0528 Results 24 hrs Laboratory Tests Test 08/02/16 05:28 Anion Gap 17 H Basophils # 0.0 Basophils % 0.1 Blood Urea Nitrogen 93 H Calcium Level 8.8 Carbon Dioxide Level 32 H Chloride Level 88 L Creatinine 1.85 H Eosinophils # 0.1 Eosinophils % 0.6 Glucose Level 106 Hematocrit 38.8 L Hemoglobin 11.9 L Lymphocytes # 0.4 L Lymphocytes % 4.3 L Mean Corpuscular Hemoglobin 25.1 L Mean Corpuscular Hemoglobin Concent 30.7 L Mean Corpuscular Volume 81.9 L Mean Platelet Volume 10.4 Monocytes # 0.7 Monocytes % 8.8 Neutrophils # 7.2 Neutrophils % 85.6 H Nucleated Red Blood Cells # 0.2 H Nucleated Red Blood Cells % 2.7 H Platelet Count 249 # Potassium Level 3.6 Red Blood Count 4.74 Red Cell Distribution Width 21.1 H Sodium Level 133 L White Blood Count 8.4 Medications Medications Current Medications Apixaban (Eliquis) 2.5 mg BID PO Last administered on 08/02/16 09:46; Admin Dose 2.5 MG; Start 07/18/16 at 21:00 Aspirin (Halfprin) 81 mg DAILY PO Last administered on 08/02/16 09:46; Admin Dose 81 MG; Start 07/19/16 at 09:00 Nitroglycerin (Nitroglycerin (Sl Tab) 0.4 Mg) 1 tab DAILY PRN SL CHEST PAIN; Start 07/18/16 at 15:30 Sucralfate (Carafate) 1 gm QID PO Last administered on 08/02/16 09:41; Admin Dose 1 GM; Start 07/18/16 at 17:00 Pantoprazole (Protonix Tab) 40 mg DAILY@06 PO Last administered on 08/02/16 06: 21; Admin Dose 40 MG; Start 07/19/16 at 06:00 Ondansetron HCl (Zofran Inj) 4 mg Q6H PRN IV NAUSEA AND/OR VOMITING Last administered on 07/23/16 00:24; Admin Dose 4 MG; Start 07/18/16 at 15:30 Acetaminophen (Tylenol Tab) 650 mg Q6H PRN PO PAIN LEVEL 1-3 OR FEVER Last administered on 08/02/16 15:25; Admin Dose 650 MG; Start 07/18/16 at 15:30 Acetaminophen (Tylenol Supp) 650 mg Q6H PRN [place] PAIN LEVEL 1-3 OR FEVER; Start 07/18/16 at 15:30 Docusate Sodium (Colace) 100 mg Q12H PRN PO CONSTIPATION Last administered on 20:19; Admin Dose 100 MG; Start 07/18/16 at 15:30 Magnesium Hydroxide (Milk Of Mag) 30 ml DAILY PRN PO CONSTIPATION Last administered on 07/28/16 23:03; Admin Dose 30 ML; Start 07/18/16 at 15:30 Bisacodyl (Dulcolax Supp) 10 mg DAILY PRN [place] CONSTIPATION; Start 07/18/16 at 15 :30 Miscellaneous Information 1 ea NOTE XX ; Start 07/18/16 at 17:30 Glucose (Glutose) 15 gm Q15M PRN PO DECREASED GLUCOSE; Start 07/18/16 at 17:30 Glucose (Glutose) 22.5 gm Q15M PRN PO DECREASED GLUCOSE; Start 07/18/16 at 17: 30 Dextrose (D50w Syringe) 25 ml Q15M PRN IV DECREASED GLUCOSE; Start 07/18/16 at 17:30 Dextrose (D50w Syringe) 50 ml Q15M PRN IV DECREASED GLUCOSE; Start 07/18/16 at 17:30 Glucagon (Glucagen) 1 mg Q15M PRN IM DECREASED GLUCOSE; Start 07/18/16 at 17:30 Glucose (Glutose) 15 gm Q15M PRN BUCCAL DECREASED GLUCOSE; Start 07/18/16 at 17 :30 Guaifenesin/ Codeine Phosphate (Robitussin Ac Liquid Cup) 10 ml Q4H PRN PO COUGH Last administered on 07/19/16 19:43; Admin Dose 10 ML; Start 07/18/16 at 23:30 Amiodarone HCl (Cordarone) 200 mg DAILY PO Last administered on 08/02/16 09:47 ; Admin Dose 200 MG; Start 07/20/16 at 09:00 Carvedilol (Coreg) 3.125 mg BID PO Last administered on 08/02/16 09:46; Admin Dose 3.125 MG; Start 07/24/16 at 09:00 Hydralazine HCl (Apresoline) 10 mg Q8 PO Last administered on 08/02/16 06:20; Admin Dose 10 MG; Start 07/29/16 at 14:00 Isosorbide Dinitrate (Isordil) 10 mg TID PO Last administered on 08/02/16 09:44 ; Admin Dose 10 MG; Start 07/30/16 at 21:00 Metolazone (Zaroxolyn) 2.5 mg DAILY PO Last administered on 08/02/16 09:43; Admin Dose 2.5 MG; Start 07/31/16 at 09:00 Furosemide (Lasix) 40 mg DAILY IV Last administered on 08/02/16 10:00; Admin Dose 40 MG; Start 08/02/16 at 09:00 YANIRA HART MD Aug 02, 2016 16:36
[2016-08-03] VITALS (18 sets, daily range): BP systolic 97–116; BP diastolic 46–65; PULSE 59–69; RESP 18–24
[2016-08-03] MEDS: PANTOPRAZOLE (EC) 40 MG TAB PO SCH (06:22)
[2016-08-03 07:14] LABS: ADD SCAN DIFF NO
[2016-08-03 07:23] LABS: ABNORMAL IP MESSAGE 1; EOSINOPHILS # 0.1 10^3/ul (0.0-0.5); EOSINOPHILS % 1.6 % (0.0-7.0); HEMATOCRIT 40.6 % (42.0-52.0); HEMOGLOBIN 12.1 g/dl (14.0-18.0); LYMPHOCYTES # 0.5 10^3/ul (0.8-2.9); LYMPHOCYTES % 5.5 % (15.0-51.0); MEAN CORPUSCULAR HEMOGLOBIN 24.7 pg (29.0-33.0); MEAN CORPUSCULAR HGB CONC 29.8 g/dl (32.0-37.0); MEAN PLATELET VOLUME 10.2 fl (7.4-10.4); MONOCYTE # 0.6 10^3/ul (0.3-0.9); MONOCYTES % 7.7 % (0.0-11.0); NEUTROPHIL # 6.9 10^3/ul (1.6-7.5); NEUTROPHILS % 84.7 % (39.0-77.0); NUCLEATED RED BLOOD CELLS # 0.3 10^3/ul (0.0-0.0); NUCLEATED RED BLOOD CELLS% 3.8 /100WBC (0.0-0.0); PLATELET COUNT 208 10^3/UL (140-415); RED BLOOD COUNT 4.89 10^6/ul (4.70-6.10); RED CELL DISTRIBUTION WIDTH 21.8 % (11.5-14.5); WHITE BLOOD COUNT 8.2 10^3/ul (4.8-10.8)
[2016-08-03 07:41] LABS: POTASSIUM 3.6 mmol/L (3.5-5.1)
[2016-08-03 07:43] LABS: CREATININE 1.71 mg/dl (0.61-1.24)
[2016-08-03 07:44] LABS: CALCIUM 8.7 mg/dl (8.4-10.2)
[2016-08-03] MEDS: AMIODARONE 200 MG TAB PO SCH (08:45)
[2016-08-03] MEDS: FUROSEMIDE 40 MG INJ IV SCH ×2 (08:45→12:30)
[2016-08-03] MEDS: METOLAZONE 2.5 MG TAB PO SCH (08:45)
[2016-08-03] MEDS: ISOSORBIDE DINITRATE 10 MG TAB PO SCH ×3 (08:45→19:58)
[2016-08-03] MEDS: ASPIRIN (EC) 81 MG TAB PO SCH (09:02)
[2016-08-03] MEDS: SUCRALFATE 1 GM TAB PO SCH ×4 (09:02→19:58)
[2016-08-03] MEDS: APIXABAN 5 MG TABLET PO SCH ×2 (09:04→19:58)
--- NOTE | 2016-08-03 11:28 | PN ---
Date/Time of Note Date/Time of Note DATE: 08/03/16 TIME: 11:24 Assessment/Plan VTE Prophylaxis VTE Prophylaxis Intervention: other (Eliquis ) Lines/Catheters IV [facility] Saline Lock Urinary Cath still in place: No Assessment/Plan Assessment/Plan 1. Acute on chronic congestive heart failure. Patient with known systolic dysfunction. on IV lasix 2. 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 Type 2 diabetes. 4. Atrial fibrillation, rate controlled 5. History of CAD status post CABG 6. Acute on likely chronic kidney disease 2/2 cardiorenal syndorme- did not improve, s/p Whitney catheter placement on 08/01/16- Started on short HD by leaf blender Dr.Balbir Lamar Plan Plan for HD as per Nephrology Continue eliquis for anticoagulation, cardiology has been following, rate controlled with amiodarone and coreg lasix has been on 40mg IV daily since pt is started on HD will have Nephrology to decide if pt will be short term HD while being in hospital or will need retirement HD , currently has a whitney catheter placement appreciate cardiology and nephrology help Subjective 24 Hr Interval Summary Free Text/Dictation plan for HD today, has DEANDRA jacome better Exam/Review of Systems Vital Signs Vitals Vital Signs Date Time Temp Pulse Resp B/P Pulse Ox O2 Delivery O2 Flow Rate FiO2 08/03/16 09:00 62 08/03/16 09:00 17 08/03/16 07:31 97.4 111/49 98 08/02/16 20:00 Nasal Cannula 4.0 Intake and Output 08/02/16 08/02/16 08/03/16 15:00 23:00 07:00 Intake Total 200 ml 600 ml 240 ml Output Total 700 ml Balance -500 ml 600 ml 240 ml Exam Psych: confusion Respiratory: clear to auscultation Cardiovascular: regular rate and rhythm Gastrointestinal: soft, No distended Musculoskeletal: nl extremities to inspection Results Result Diagram: 08/03/16 0620 08/03/16 0620 Results 24 hrs Laboratory Tests Test 08/03/16 06:20 Anion Gap 15 Basophils # 0.0 Basophils % 0.0 Blood Urea Nitrogen 72 H Calcium Level 8.7 Carbon Dioxide Level 31 Chloride Level 93 L Creatinine 1.71 H Eosinophils # 0.1 Eosinophils % 1.6 Glucose Level 97 Hematocrit 40.6 L Hemoglobin 12.1 L Lymphocytes # 0.5 L Lymphocytes % 5.5 L Mean Corpuscular Hemoglobin 24.7 L Mean Corpuscular Hemoglobin Concent 29.8 L Mean Corpuscular Volume 83.0 Mean Platelet Volume 10.2 Monocytes # 0.6 Monocytes % 7.7 Neutrophils # 6.9 Neutrophils % 84.7 H Nucleated Red Blood Cells # 0.3 H Nucleated Red Blood Cells % 3.8 H Platelet Count 208 Potassium Level 3.6 Red Blood Count 4.89 Red Cell Distribution Width 21.8 H Sodium Level 135 White Blood Count 8.2 Medications Medications Current Medications Apixaban (Eliquis) 2.5 mg BID PO Last administered on 08/03/16 09:04; Admin Dose 2.5 MG; Start 07/18/16 at 21:00 Aspirin (Halfprin) 81 mg DAILY PO Last administered on 08/03/16 09:02; Admin Dose 81 MG; Start 07/19/16 at 09:00 Nitroglycerin (Nitroglycerin (Sl Tab) 0.4 Mg) 1 tab DAILY PRN SL CHEST PAIN; Start 07/18/16 at 15:30 Sucralfate (Carafate) 1 gm QID PO Last administered on 08/03/16 09:02; Admin Dose 1 GM; Start 07/18/16 at 17:00 Pantoprazole (Protonix Tab) 40 mg DAILY@06 PO Last administered on 08/03/16 06: 22; Admin Dose 40 MG; Start 07/19/16 at 06:00 Ondansetron HCl (Zofran Inj) 4 mg Q6H PRN IV NAUSEA AND/OR VOMITING Last administered on 07/23/16 00:24; Admin Dose 4 MG; Start 07/18/16 at 15:30 Acetaminophen (Tylenol Tab) 650 mg Q6H PRN PO PAIN LEVEL 1-3 OR FEVER Last administered on 08/02/16 15:25; Admin Dose 650 MG; Start 07/18/16 at 15:30 Acetaminophen (Tylenol Supp) 650 mg Q6H PRN [place] PAIN LEVEL 1-3 OR FEVER; Start 07/18/16 at 15:30 Docusate Sodium (Colace) 100 mg Q12H PRN PO CONSTIPATION Last administered on 20:19; Admin Dose 100 MG; Start 07/18/16 at 15:30 Magnesium Hydroxide (Milk Of Mag) 30 ml DAILY PRN PO CONSTIPATION Last administered on 07/28/16 23:03; Admin Dose 30 ML; Start 07/18/16 at 15:30 Bisacodyl (Dulcolax Supp) 10 mg DAILY PRN [place] CONSTIPATION; Start 07/18/16 at 15 :30 Miscellaneous Information 1 ea NOTE XX ; Start 07/18/16 at 17:30 Glucose (Glutose) 15 gm Q15M PRN PO DECREASED GLUCOSE; Start 07/18/16 at 17:30 Glucose (Glutose) 22.5 gm Q15M PRN PO DECREASED GLUCOSE; Start 07/18/16 at 17: 30 Dextrose (D50w Syringe) 25 ml Q15M PRN IV DECREASED GLUCOSE; Start 07/18/16 at 17:30 Dextrose (D50w Syringe) 50 ml Q15M PRN IV DECREASED GLUCOSE; Start 07/18/16 at 17:30 Glucagon (Glucagen) 1 mg Q15M PRN IM DECREASED GLUCOSE; Start 07/18/16 at 17:30 Glucose (Glutose) 15 gm Q15M PRN BUCCAL DECREASED GLUCOSE; Start 07/18/16 at 17 :30 Guaifenesin/ Codeine Phosphate (Robitussin Ac Liquid Cup) 10 ml Q4H PRN PO COUGH Last administered on 07/19/16 19:43; Admin Dose 10 ML; Start 07/18/16 at 23:30 Amiodarone HCl (Cordarone) 200 mg DAILY PO Last administered on 08/02/16 09:47 ; Admin Dose 200 MG; Start 07/20/16 at 09:00 Carvedilol (Coreg) 3.125 mg BID PO Last administered on 08/02/16 21:08; Admin Dose 3.125 MG; Start 07/24/16 at 09:00 Hydralazine HCl (Apresoline) 10 mg Q8 PO Last administered on 08/03/16 06:22; Admin Dose 10 MG; Start 07/29/16 at 14:00 Isosorbide Dinitrate (Isordil) 10 mg TID PO Last administered on 08/02/16 21:08 ; Admin Dose 10 MG; Start 07/30/16 at 21:00 Metolazone (Zaroxolyn) 2.5 mg DAILY PO Last administered on 08/02/16 09:43; Admin Dose 2.5 MG; Start 07/31/16 at 09:00 Furosemide (Lasix) 40 mg DAILY IV Last administered on 08/02/16 10:00; Admin Dose 40 MG; Start 08/02/16 at 09:00 STEPHAN MARES MD Aug 03, 2016 11:28
--- NOTE | 2016-08-03 13:28 | RADRPT ---
PROCEDURE: XR Chest. CLINICAL INDICATION: Shortness of breath. TECHNIQUE: Single frontal view. COMPARISON: 08/01/2016. FINDINGS: There is bilateral air space and interstitial disease consistent with pulmonary edema. The heart is enlarged. There are sternal wires and mediastinal clips. There is a single lead perma nent pacemaker/internal cardiac defibrillator. There are small bilateral pleural effusions. There is no pneumothorax. IMPRESSION: 1. Unchanged pulmonary edema. 2. Cardiomegaly and permanent pacemaker. 3. Previous median sternotomy. 4. Small bilateral pleural effusions. RPTAT: QQ .Eugenio Ruano MD, MD Date Time Electronically viewed and signed by .Eugenio Ruano MD, on 08/03/2016 13:27 .R/
--- NOTE | 2016-08-03 14:25 | CONS ---
Date/Time of Note Date/Time of Note DATE: 08/03/16 TIME: 14:23 Assessment/Plan Assessment/Plan Chief Complaint/Hosp Course IMPRESSION: 1. Congestive heart failure exacerbation, systolic, acute on chronic.-negative troponin x 3. EF 25% by most recent echo-worsening 2. Shortness of breath secondary to #1. 3. History of coronary artery bypass graft surgery. Assess for acute coronary syndrome. 4. Abnormal electrocardiogram . Assess for acute coronary syndrome.-negative troponin x3 5. History of paroxysmal atrial fibrillation, on apixaban and amiodarone. 6. Acute on chronic renal failure-Now on HD 7. Hypertension,currently uncontrolled 8. Anemia, mild. 9. Coagulopathy secondary to apixaban. Rec: -tele -Continue amiodarone -Continue coreg and hydralazine/isordil as tolerated -Now on HD s/p session today -Continue daily lasix -s/p dose digoxin IVP to increase contractility -Continue asa/apixaban for now Problems: Consultation Date/Type/Reason Admit Date/Time Jul 18, 2016 at 14:06 Initial Consult Date 07/19/2016 Type of Consultation: Cardiology Reason for Consultation Cardiomyopathy/CHF Referring Provider: MURIEL EWING Exam/Review of Systems Vital Signs Vitals Vital Signs Date Time Temp Pulse Resp B/P Pulse Ox O2 Delivery O2 Flow Rate FiO2 08/03/16 14:06 59 97/46 08/03/16 11:38 96.7 22 98 08/02/16 20:00 Nasal Cannula 4.0 Intake and Output 08/02/16 08/02/16 08/03/16 15:00 23:00 07:00 Intake Total 200 ml 600 ml 240 ml Output Total 700 ml Balance -500 ml 600 ml 240 ml Exam Review of Systems: CONSTITUTIONAL: No fevers, chills. PULMONARY: mild sob CARDIOVASCULAR: No chest pain/palpitations GASTROINTESTINAL: No nausea/vomiting. GENITOURINARY: No hematuria/dysuria. MUSCULOSKELETAL: No myagias/arthalgias. PSYCHIATRIC: The patient denies depression. NEUROLOGIC: lethargic Constitutional: alert Psych: no complaints Neck: jvd (9 cm water), supple Respiratory: diminished breath sounds (at bases/B) Cardiovascular: regular rate and rhythm Gastrointestinal: non-tender, soft Musculoskeletal: muscle tone (normal) Extremities: edema (none) Neurological: lethargic Results Result Diagram: 08/03/16 0620 08/03/16 0620 Results 24 hrs Laboratory Tests Test 08/03/16 06:20 Anion Gap 15 Basophils # 0.0 Basophils % 0.0 Blood Urea Nitrogen 72 H Calcium Level 8.7 Carbon Dioxide Level 31 Chloride Level 93 L Creatinine 1.71 H Eosinophils # 0.1 Eosinophils % 1.6 Glucose Level 97 Hematocrit 40.6 L Hemoglobin 12.1 L Lymphocytes # 0.5 L Lymphocytes % 5.5 L Mean Corpuscular Hemoglobin 24.7 L Mean Corpuscular Hemoglobin Concent 29.8 L Mean Corpuscular Volume 83.0 Mean Platelet Volume 10.2 Monocytes # 0.6 Monocytes % 7.7 Neutrophils # 6.9 Neutrophils % 84.7 H Nucleated Red Blood Cells # 0.3 H Nucleated Red Blood Cells % 3.8 H Platelet Count 208 Potassium Level 3.6 Red Blood Count 4.89 Red Cell Distribution Width 21.8 H Sodium Level 135 White Blood Count 8.2 Medications Medications Current Medications Apixaban (Eliquis) 2.5 mg BID PO Last administered on 08/03/16 09:04; Admin Dose 2.5 MG; Start 07/18/16 at 21:00 Aspirin (Halfprin) 81 mg DAILY PO Last administered on 08/03/16 09:02; Admin Dose 81 MG; Start 07/19/16 at 09:00 Nitroglycerin (Nitroglycerin (Sl Tab) 0.4 Mg) 1 tab DAILY PRN SL CHEST PAIN; Start 07/18/16 at 15:30 Sucralfate (Carafate) 1 gm QID PO Last administered on 08/03/16 12:30; Admin Dose 1 GM; Start 07/18/16 at 17:00 Pantoprazole (Protonix Tab) 40 mg DAILY@06 PO Last administered on 08/03/16 06: 22; Admin Dose 40 MG; Start 07/19/16 at 06:00 Ondansetron HCl (Zofran Inj) 4 mg Q6H PRN IV NAUSEA AND/OR VOMITING Last administered on 07/23/16 00:24; Admin Dose 4 MG; Start 07/18/16 at 15:30 Acetaminophen (Tylenol Tab) 650 mg Q6H PRN PO PAIN LEVEL 1-3 OR FEVER Last administered on 08/02/16 15:25; Admin Dose 650 MG; Start 07/18/16 at 15:30 Acetaminophen (Tylenol Supp) 650 mg Q6H PRN [place] PAIN LEVEL 1-3 OR FEVER; Start 07/18/16 at 15:30 Docusate Sodium (Colace) 100 mg Q12H PRN PO CONSTIPATION Last administered on 20:19; Admin Dose 100 MG; Start 07/18/16 at 15:30 Magnesium Hydroxide (Milk Of Mag) 30 ml DAILY PRN PO CONSTIPATION Last administered on 07/28/16 23:03; Admin Dose 30 ML; Start 07/18/16 at 15:30 Bisacodyl (Dulcolax Supp) 10 mg DAILY PRN [place] CONSTIPATION; Start 07/18/16 at 15 :30 Miscellaneous Information 1 ea NOTE XX ; Start 07/18/16 at 17:30 Glucose (Glutose) 15 gm Q15M PRN PO DECREASED GLUCOSE; Start 07/18/16 at 17:30 Glucose (Glutose) 22.5 gm Q15M PRN PO DECREASED GLUCOSE; Start 07/18/16 at 17: 30 Dextrose (D50w Syringe) 25 ml Q15M PRN IV DECREASED GLUCOSE; Start 07/18/16 at 17:30 Dextrose (D50w Syringe) 50 ml Q15M PRN IV DECREASED GLUCOSE; Start 07/18/16 at 17:30 Glucagon (Glucagen) 1 mg Q15M PRN IM DECREASED GLUCOSE; Start 07/18/16 at 17:30 Glucose (Glutose) 15 gm Q15M PRN BUCCAL DECREASED GLUCOSE; Start 07/18/16 at 17 :30 Guaifenesin/ Codeine Phosphate (Robitussin Ac Liquid Cup) 10 ml Q4H PRN PO COUGH Last administered on 07/19/16 19:43; Admin Dose 10 ML; Start 07/18/16 at 23:30 Amiodarone HCl (Cordarone) 200 mg DAILY PO Last administered on 08/02/16 09:47 ; Admin Dose 200 MG; Start 07/20/16 at 09:00 Carvedilol (Coreg) 3.125 mg BID PO Last administered on 08/02/16 21:08; Admin Dose 3.125 MG; Start 07/24/16 at 09:00 Hydralazine HCl (Apresoline) 10 mg Q8 PO Last administered on 08/03/16 06:22; Admin Dose 10 MG; Start 07/29/16 at 14:00 Isosorbide Dinitrate (Isordil) 10 mg TID PO Last administered on 08/03/16 12:30 ; Admin Dose 10 MG; Start 07/30/16 at 21:00 Metolazone (Zaroxolyn) 2.5 mg DAILY PO Last administered on 08/02/16 09:43; Admin Dose 2.5 MG; Start 07/31/16 at 09:00 Furosemide (Lasix) 40 mg DAILY IV Last administered on 08/03/16 12:30; Admin Dose 40 MG; Start 08/02/16 at 09:00 POLI SAN Aug 03, 2016 14:25
[2016-08-03] MEDS: ZOLPIDEM 5 MG TAB PO PRN (20:29)
--- NOTE | 2016-08-03 20:43 | CONS ---
Date/Time of Note Date/Time of Note DATE: 08/03/16 TIME: 20:42 Assessment/Plan Assessment/Plan Chief Complaint/Hosp Course 1. Patient has acute on chronic renal failure with acute kidney injury due to systolic heart failure.ON HD 2. The patient has LOW EF 3. Anemia. 4. ASHD 5. Acute urinary tract infection.BETTER 6 LOW EF 7 hyperkalemia HX 8 afib PLAN CONTINUE LASIX TID METALAZONE PT/OT SHORT HD W MANNITOL D/W FAMILY [place] W DIALYSIS HD today Problems: Consultation Date/Type/Reason Admit Date/Time Jul 18, 2016 at 14:06 Type of Consultation: renal Referring Provider: MURIEL EWING 24 HR Interval Summary Constitutional: other (sob better) Exam/Review of Systems Vital Signs Vitals Vital Signs Date Time Temp Pulse Resp B/P Pulse Ox O2 Delivery O2 Flow Rate FiO2 08/03/16 20:26 60 08/03/16 15:28 98.2 24 111/56 95 08/03/16 08:00 Nasal Cannula 4.0 Intake and Output 08/02/16 08/02/16 08/03/16 15:00 23:00 07:00 Intake Total 200 ml 600 ml 240 ml Output Total 700 ml Balance -500 ml 600 ml 240 ml Exam Neck: supple Respiratory: diminished breath sounds Cardiovascular: regular rate and rhythm Gastrointestinal: soft Musculoskeletal: nl extremities to inspection Results Result Diagram: 08/03/16 0620 08/03/16 0620 Results 24 hrs Laboratory Tests Test 08/03/16 06:20 Anion Gap 15 Basophils # 0.0 Basophils % 0.0 Blood Urea Nitrogen 72 H Calcium Level 8.7 Carbon Dioxide Level 31 Chloride Level 93 L Creatinine 1.71 H Eosinophils # 0.1 Eosinophils % 1.6 Glucose Level 97 Hematocrit 40.6 L Hemoglobin 12.1 L Lymphocytes # 0.5 L Lymphocytes % 5.5 L Mean Corpuscular Hemoglobin 24.7 L Mean Corpuscular Hemoglobin Concent 29.8 L Mean Corpuscular Volume 83.0 Mean Platelet Volume 10.2 Monocytes # 0.6 Monocytes % 7.7 Neutrophils # 6.9 Neutrophils % 84.7 H Nucleated Red Blood Cells # 0.3 H Nucleated Red Blood Cells % 3.8 H Platelet Count 208 Potassium Level 3.6 Red Blood Count 4.89 Red Cell Distribution Width 21.8 H Sodium Level 135 White Blood Count 8.2 Medications Medications Current Medications Apixaban (Eliquis) 2.5 mg BID PO Last administered on 08/03/16 19:58; Admin Dose 2.5 MG; Start 07/18/16 at 21:00 Aspirin (Halfprin) 81 mg DAILY PO Last administered on 08/03/16 09:02; Admin Dose 81 MG; Start 07/19/16 at 09:00 Nitroglycerin (Nitroglycerin (Sl Tab) 0.4 Mg) 1 tab DAILY PRN SL CHEST PAIN; Start 07/18/16 at 15:30 Sucralfate (Carafate) 1 gm QID PO Last administered on 08/03/16 19:58; Admin Dose 1 GM; Start 07/18/16 at 17:00 Pantoprazole (Protonix Tab) 40 mg DAILY@06 PO Last administered on 08/03/16 06: 22; Admin Dose 40 MG; Start 07/19/16 at 06:00 Ondansetron HCl (Zofran Inj) 4 mg Q6H PRN IV NAUSEA AND/OR VOMITING Last administered on 07/23/16 00:24; Admin Dose 4 MG; Start 07/18/16 at 15:30 Acetaminophen (Tylenol Tab) 650 mg Q6H PRN PO PAIN LEVEL 1-3 OR FEVER Last administered on 08/02/16 15:25; Admin Dose 650 MG; Start 07/18/16 at 15:30 Acetaminophen (Tylenol Supp) 650 mg Q6H PRN [place] PAIN LEVEL 1-3 OR FEVER; Start 07/18/16 at 15:30 Docusate Sodium (Colace) 100 mg Q12H PRN PO CONSTIPATION Last administered on 20:19; Admin Dose 100 MG; Start 07/18/16 at 15:30 Magnesium Hydroxide (Milk Of Mag) 30 ml DAILY PRN PO CONSTIPATION Last administered on 07/28/16 23:03; Admin Dose 30 ML; Start 07/18/16 at 15:30 Bisacodyl (Dulcolax Supp) 10 mg DAILY PRN [place] CONSTIPATION; Start 07/18/16 at 15 :30 Miscellaneous Information 1 ea NOTE XX ; Start 07/18/16 at 17:30 Glucose (Glutose) 15 gm Q15M PRN PO DECREASED GLUCOSE; Start 07/18/16 at 17:30 Glucose (Glutose) 22.5 gm Q15M PRN PO DECREASED GLUCOSE; Start 07/18/16 at 17: 30 Dextrose (D50w Syringe) 25 ml Q15M PRN IV DECREASED GLUCOSE; Start 07/18/16 at 17:30 Dextrose (D50w Syringe) 50 ml Q15M PRN IV DECREASED GLUCOSE; Start 07/18/16 at 17:30 Glucagon (Glucagen) 1 mg Q15M PRN IM DECREASED GLUCOSE; Start 07/18/16 at 17:30 Glucose (Glutose) 15 gm Q15M PRN BUCCAL DECREASED GLUCOSE; Start 07/18/16 at 17 :30 Guaifenesin/ Codeine Phosphate (Robitussin Ac Liquid Cup) 10 ml Q4H PRN PO COUGH Last administered on 07/19/16 19:43; Admin Dose 10 ML; Start 07/18/16 at 23:30 Amiodarone HCl (Cordarone) 200 mg DAILY PO Last administered on 08/02/16 09:47 ; Admin Dose 200 MG; Start 07/20/16 at 09:00 Carvedilol (Coreg) 3.125 mg BID PO Last administered on 08/03/16 20:05; Admin Dose 3.125 MG; Start 07/24/16 at 09:00 Hydralazine HCl (Apresoline) 10 mg Q8 PO Last administered on 08/03/16 20:30; Admin Dose 10 MG; Start 07/29/16 at 14:00 Isosorbide Dinitrate (Isordil) 10 mg TID PO Last administered on 08/03/16 19:58 ; Admin Dose 10 MG; Start 07/30/16 at 21:00 Metolazone (Zaroxolyn) 2.5 mg DAILY PO Last administered on 08/02/16 09:43; Admin Dose 2.5 MG; Start 07/31/16 at 09:00 Furosemide (Lasix) 40 mg DAILY IV Last administered on 08/03/16 12:30; Admin Dose 40 MG; Start 08/02/16 at 09:00 AYNIRA HART MD Aug 03, 2016 20:42
[2016-08-04] VITALS (12 sets, daily range): BP systolic 101–130; BP diastolic 51–58; PULSE 60; RESP 16–19
[2016-08-04] MEDS: PANTOPRAZOLE (EC) 40 MG TAB PO SCH (05:32)
[2016-08-04 06:23] LABS: ADD SCAN DIFF NO
[2016-08-04 06:32] LABS: ABNORMAL IP MESSAGE 1; EOSINOPHILS % 0.1 % (0.0-7.0); HEMATOCRIT 41.2 % (42.0-52.0); HEMOGLOBIN 12.2 g/dl (14.0-18.0); LYMPHOCYTES # 0.3 10^3/ul (0.8-2.9); LYMPHOCYTES % 4.3 % (15.0-51.0); MEAN CORPUSCULAR HEMOGLOBIN 25.1 pg (29.0-33.0); MEAN CORPUSCULAR HGB CONC 29.6 g/dl (32.0-37.0); MEAN CORPUSCULAR VOLUME 84.6 fl (82.0-101.0); MEAN PLATELET VOLUME 10.7 fl (7.4-10.4); MONOCYTE # 0.5 10^3/ul (0.3-0.9); MONOCYTES % 6.8 % (0.0-11.0); NEUTROPHIL # 6.3 10^3/ul (1.6-7.5); NEUTROPHILS % 88.4 % (39.0-77.0); NUCLEATED RED BLOOD CELLS # 0.5 10^3/ul (0.0-0.0); NUCLEATED RED BLOOD CELLS% 6.4 /100WBC (0.0-0.0); PLATELET COUNT 224 10^3/UL (140-415); RED BLOOD COUNT 4.87 10^6/ul (4.70-6.10); RED CELL DISTRIBUTION WIDTH 21.5 % (11.5-14.5); WHITE BLOOD COUNT 7.2 10^3/ul (4.8-10.8)
[2016-08-04 06:42] LABS: INR 3.78; PROTIME 37.9 Sec (12.2-14.2)
[2016-08-04 06:44] LABS: PARTIAL THROMBOPLASTIN TIME 66.5 Sec (25.0-35.0)
[2016-08-04 06:53] LABS: POTASSIUM 4.1 mmol/L (3.5-5.1)
[2016-08-04 06:55] LABS: CREATININE 2.23 mg/dl (0.61-1.24)
[2016-08-04 06:56] LABS: CALCIUM 8.8 mg/dl (8.4-10.2)
[2016-08-04] MEDS: ASPIRIN (EC) 81 MG TAB PO SCH (09:00)
[2016-08-04] MEDS: METOLAZONE 2.5 MG TAB PO SCH (09:00)
[2016-08-04] MEDS: FUROSEMIDE 40 MG INJ IV SCH ×2 (09:00→19:59)
[2016-08-04] MEDS: SUCRALFATE 1 GM TAB PO SCH ×4 (09:00→21:00)
[2016-08-04] MEDS: AMIODARONE 200 MG TAB PO SCH (09:00)
[2016-08-04] MEDS: ISOSORBIDE DINITRATE 10 MG TAB PO SCH ×3 (09:00→21:00)
--- NOTE | 2016-08-04 10:55 | PN ---
Date/Time of Note Date/Time of Note DATE: 08/04/16 TIME: 10:51 Assessment/Plan VTE Prophylaxis VTE Prophylaxis Intervention: other (Eliquis ) Lines/Catheters IV Catheter Type (from Nrs): STACEY CATHETER Central line still needed: Yes (For dialysis access ) Urinary Cath still in place: No Assessment/Plan Assessment/Plan 1. Acute on chronic congestive heart failure. Patient with known systolic dysfunction. on IV lasix 2. 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 Type 2 diabetes. 4. Atrial fibrillation, rate controlled 5. History of CAD status post CABG 6. Acute on likely chronic kidney disease 2/2 cardiorenal syndorme- did not improve, s/p Stacey catheter placement on 08/01/16- Started on HD by general machinist Dr.Balbir Lamar Plan s/p HD yesterday- Plan for HD as per Nephrology Continue eliquis for anticoagulation, cardiology has been following, rate controlled with amiodarone and coreg lasix has been on 40mg IV daily since pt is started on HD will have Nephrology to decide if pt will be short term HD while being in hospital or will need long term acute care registered nurse HD ( embedded case manager is instructed to talk with ), currently has a stacey catheter placement appreciate cardiology and nephrology help Subjective 24 Hr Interval Summary Free Text/Dictation s/p HD yesterday 1 L removed, BP stable, has stacey Catheter Exam/Review of Systems Vital Signs Vitals Vital Signs Date Time Temp Pulse Resp B/P Pulse Ox O2 Delivery O2 Flow Rate FiO2 08/04/16 08:43 60 08/04/16 08:03 97.1 18 101/52 97 08/03/16 20:00 Nasal Cannula 4.0 Intake and Output 08/03/16 08/03/16 08/04/16 15:00 23:00 07:00 Intake Total 200 ml 1080 ml 120 ml Output Total 1200 ml 250 ml 100 ml Balance -1000 ml 830 ml 20 ml Exam Psych: awake but not oriented to place and time Respiratory: decreased BS at both lung bases, no wheezing Cardiovascular: S1 S2 irregular Gastrointestinal: soft, No distended Musculoskeletal: nl extremities to inspection + stacey catheter Results Result Diagram: 08/04/16 0555 08/04/16 0555 Results 24 hrs Laboratory Tests Test 08/04/16 05:55 Activated Partial Thromboplast Time 66.5 H Anion Gap 20 H Basophils # 0.0 Basophils % 0.0 Blood Urea Nitrogen 66 H Calcium Level 8.8 Carbon Dioxide Level 27 Chloride Level 95 L Creatinine 2.23 H Eosinophils # 0.0 Eosinophils % 0.1 Glucose Level 83 Hematocrit 41.2 L Hemoglobin 12.2 L INR International Normalized Ratio 3.78 Lymphocytes # 0.3 L Lymphocytes % 4.3 L Mean Corpuscular Hemoglobin 25.1 L Mean Corpuscular Hemoglobin Concent 29.6 L Mean Corpuscular Volume 84.6 Mean Platelet Volume 10.7 H Monocytes # 0.5 Monocytes % 6.8 Neutrophils # 6.3 Neutrophils % 88.4 H Nucleated Red Blood Cells # 0.5 H Nucleated Red Blood Cells % 6.4 H Platelet Count 224 Potassium Level 4.1 Prothrombin Time 37.9 #H Prothrombin Time Ratio 3.0 Red Blood Count 4.87 Red Cell Distribution Width 21.5 H Sodium Level 138 White Blood Count 7.2 Medications Medications Current Medications Apixaban (Eliquis) 2.5 mg BID PO Last administered on 08/03/16 19:58; Admin Dose 2.5 MG; Start 07/18/16 at 21:00; Status Future Hold Aspirin (Halfprin) 81 mg DAILY PO Last administered on 08/03/16 09:02; Admin Dose 81 MG; Start 07/19/16 at 09:00 Nitroglycerin (Nitroglycerin (Sl Tab) 0.4 Mg) 1 tab DAILY PRN SL CHEST PAIN; Start 07/18/16 at 15:30 Sucralfate (Carafate) 1 gm QID PO Last administered on 08/03/16 19:58; Admin Dose 1 GM; Start 07/18/16 at 17:00 Pantoprazole (Protonix Tab) 40 mg DAILY@06 PO Last administered on 08/03/16 06: 22; Admin Dose 40 MG; Start 07/19/16 at 06:00 Ondansetron HCl (Zofran Inj) 4 mg Q6H PRN IV NAUSEA AND/OR VOMITING Last administered on 07/23/16 00:24; Admin Dose 4 MG; Start 07/18/16 at 15:30 Acetaminophen (Tylenol Tab) 650 mg Q6H PRN PO PAIN LEVEL 1-3 OR FEVER Last administered on 08/02/16 15:25; Admin Dose 650 MG; Start 07/18/16 at 15:30 Acetaminophen (Tylenol Supp) 650 mg Q6H PRN [place] PAIN LEVEL 1-3 OR FEVER; Start 07/18/16 at 15:30 Docusate Sodium (Colace) 100 mg Q12H PRN PO CONSTIPATION Last administered on 20:19; Admin Dose 100 MG; Start 07/18/16 at 15:30 Magnesium Hydroxide (Milk Of Mag) 30 ml DAILY PRN PO CONSTIPATION Last administered on 07/28/16 23:03; Admin Dose 30 ML; Start 07/18/16 at 15:30 Bisacodyl (Dulcolax Supp) 10 mg DAILY PRN [place] CONSTIPATION; Start 07/18/16 at 15 :30 Miscellaneous Information 1 ea NOTE XX ; Start 07/18/16 at 17:30 Glucose (Glutose) 15 gm Q15M PRN PO DECREASED GLUCOSE; Start 07/18/16 at 17:30 Glucose (Glutose) 22.5 gm Q15M PRN PO DECREASED GLUCOSE; Start 07/18/16 at 17: 30 Dextrose (D50w Syringe) 25 ml Q15M PRN IV DECREASED GLUCOSE; Start 07/18/16 at 17:30 Dextrose (D50w Syringe) 50 ml Q15M PRN IV DECREASED GLUCOSE; Start 07/18/16 at 17:30 Glucagon (Glucagen) 1 mg Q15M PRN IM DECREASED GLUCOSE; Start 07/18/16 at 17:30 Glucose (Glutose) 15 gm Q15M PRN BUCCAL DECREASED GLUCOSE; Start 07/18/16 at 17 :30 Guaifenesin/ Codeine Phosphate (Robitussin Ac Liquid Cup) 10 ml Q4H PRN PO COUGH Last administered on 07/19/16 19:43; Admin Dose 10 ML; Start 07/18/16 at 23:30 Amiodarone HCl (Cordarone) 200 mg DAILY PO Last administered on 08/02/16 09:47 ; Admin Dose 200 MG; Start 07/20/16 at 09:00 Carvedilol (Coreg) 3.125 mg BID PO Last administered on 08/03/16 20:05; Admin Dose 3.125 MG; Start 07/24/16 at 09:00 Hydralazine HCl (Apresoline) 10 mg Q8 PO Last administered on 08/03/16 20:30; Admin Dose 10 MG; Start 07/29/16 at 14:00 Isosorbide Dinitrate (Isordil) 10 mg TID PO Last administered on 08/03/16 19:58 ; Admin Dose 10 MG; Start 07/30/16 at 21:00 Metolazone (Zaroxolyn) 2.5 mg DAILY PO Last administered on 08/02/16 09:43; Admin Dose 2.5 MG; Start 07/31/16 at 09:00 Furosemide (Lasix) 40 mg DAILY IV Last administered on 08/03/16 12:30; Admin Dose 40 MG; Start 08/02/16 at 09:00 STEPHAN MARES MD Aug 04, 2016 10:55
--- NOTE | 2016-08-04 16:11 | CONS ---
Date/Time of Note Date/Time of Note DATE: 08/04/16 TIME: 16:09 Assessment/Plan Assessment/Plan Chief Complaint/Hosp Course IMPRESSION: 1. Congestive heart failure exacerbation, systolic, acute on chronic.-negative troponin x 3. EF 25% by most recent echo-worsening 2. Shortness of breath secondary to #1. 3. History of coronary artery bypass graft surgery. Assess for acute coronary syndrome. 4. Abnormal electrocardiogram . Assess for acute coronary syndrome.-negative troponin x3 5. History of paroxysmal atrial fibrillation, on apixaban and amiodarone. 6. Acute on chronic renal failure-Now on HD 7. Hypertension,currently uncontrolled 8. Anemia, mild. 9. Coagulopathy secondary to apixaban. Rec: -tele -Continue amiodarone -Continue coreg and hydralazine/isordil as tolerated -Continue HD for volume removal -s/p dose digoxin IVP to increase contractility -Continue asa/apixaban for now -Hold all sedation Problems: Consultation Date/Type/Reason Admit Date/Time Jul 18, 2016 at 14:06 Initial Consult Date 07/19/2016 Type of Consultation: Cardiology Reason for Consultation CHF Referring Provider: MURIEL EWING Exam/Review of Systems Vital Signs Vitals Vital Signs Date Time Temp Pulse Resp B/P Pulse Ox O2 Delivery O2 Flow Rate FiO2 08/04/16 15:31 97.3 60 16 102/51 93 08/04/16 10:51 Nasal Cannula 4.0 Intake and Output 08/03/16 08/03/16 08/04/16 15:00 23:00 07:00 Intake Total 200 ml 1080 ml 120 ml Output Total 1200 ml 250 ml 100 ml Balance -1000 ml 830 ml 20 ml Exam Review of Systems: CONSTITUTIONAL: No fevers, chills. PULMONARY: No sob CARDIOVASCULAR: No chest pain/palpitations GASTROINTESTINAL: No nausea/vomiting. GENITOURINARY: No hematuria/dysuria. MUSCULOSKELETAL: No myagias/arthalgias. PSYCHIATRIC: The patient denies depression. NEUROLOGIC: lethargic Constitutional: other (sleeping) Psych: no complaints Head: normocephalic ENMT: mucosa pink and moist Neck: jvd, supple Respiratory: diminished breath sounds (at bases/B) Cardiovascular: regular rate and rhythm Gastrointestinal: non-tender, soft Musculoskeletal: muscle tone (normal) Extremities: edema (none) Neurological: lethargic Results Result Diagram: 08/04/16 0555 08/04/16 0555 Results 24 hrs Laboratory Tests Test 08/04/16 05:55 Activated Partial Thromboplast Time 66.5 H Anion Gap 20 H Basophils # 0.0 Basophils % 0.0 Blood Urea Nitrogen 66 H Calcium Level 8.8 Carbon Dioxide Level 27 Chloride Level 95 L Creatinine 2.23 H Eosinophils # 0.0 Eosinophils % 0.1 Glucose Level 83 Hematocrit 41.2 L Hemoglobin 12.2 L INR International Normalized Ratio 3.78 Lymphocytes # 0.3 L Lymphocytes % 4.3 L Mean Corpuscular Hemoglobin 25.1 L Mean Corpuscular Hemoglobin Concent 29.6 L Mean Corpuscular Volume 84.6 Mean Platelet Volume 10.7 H Monocytes # 0.5 Monocytes % 6.8 Neutrophils # 6.3 Neutrophils % 88.4 H Nucleated Red Blood Cells # 0.5 H Nucleated Red Blood Cells % 6.4 H Platelet Count 224 Potassium Level 4.1 Prothrombin Time 37.9 #H Prothrombin Time Ratio 3.0 Red Blood Count 4.87 Red Cell Distribution Width 21.5 H Sodium Level 138 White Blood Count 7.2 Medications Medications Current Medications Apixaban (Eliquis) 2.5 mg BID PO Last administered on 08/03/16 19:58; Admin Dose 2.5 MG; Start 07/18/16 at 21:00; Status Future Hold Aspirin (Halfprin) 81 mg DAILY PO Last administered on 08/03/16 09:02; Admin Dose 81 MG; Start 07/19/16 at 09:00 Nitroglycerin (Nitroglycerin (Sl Tab) 0.4 Mg) 1 tab DAILY PRN SL CHEST PAIN; Start 07/18/16 at 15:30 Sucralfate (Carafate) 1 gm QID PO Last administered on 08/03/16 19:58; Admin Dose 1 GM; Start 07/18/16 at 17:00 Pantoprazole (Protonix Tab) 40 mg DAILY@06 PO Last administered on 08/03/16 06: 22; Admin Dose 40 MG; Start 07/19/16 at 06:00 Ondansetron HCl (Zofran Inj) 4 mg Q6H PRN IV NAUSEA AND/OR VOMITING Last administered on 07/23/16 00:24; Admin Dose 4 MG; Start 07/18/16 at 15:30 Acetaminophen (Tylenol Tab) 650 mg Q6H PRN PO PAIN LEVEL 1-3 OR FEVER Last administered on 08/02/16 15:25; Admin Dose 650 MG; Start 07/18/16 at 15:30 Acetaminophen (Tylenol Supp) 650 mg Q6H PRN [place] PAIN LEVEL 1-3 OR FEVER; Start 07/18/16 at 15:30 Docusate Sodium (Colace) 100 mg Q12H PRN PO CONSTIPATION Last administered on 20:19; Admin Dose 100 MG; Start 07/18/16 at 15:30 Magnesium Hydroxide (Milk Of Mag) 30 ml DAILY PRN PO CONSTIPATION Last administered on 07/28/16 23:03; Admin Dose 30 ML; Start 07/18/16 at 15:30 Bisacodyl (Dulcolax Supp) 10 mg DAILY PRN [place] CONSTIPATION; Start 07/18/16 at 15 :30 Miscellaneous Information 1 ea NOTE XX ; Start 07/18/16 at 17:30 Glucose (Glutose) 15 gm Q15M PRN PO DECREASED GLUCOSE; Start 07/18/16 at 17:30 Glucose (Glutose) 22.5 gm Q15M PRN PO DECREASED GLUCOSE; Start 07/18/16 at 17: 30 Dextrose (D50w Syringe) 25 ml Q15M PRN IV DECREASED GLUCOSE; Start 07/18/16 at 17:30 Dextrose (D50w Syringe) 50 ml Q15M PRN IV DECREASED GLUCOSE; Start 07/18/16 at 17:30 Glucagon (Glucagen) 1 mg Q15M PRN IM DECREASED GLUCOSE; Start 07/18/16 at 17:30 Glucose (Glutose) 15 gm Q15M PRN BUCCAL DECREASED GLUCOSE; Start 07/18/16 at 17 :30 Guaifenesin/ Codeine Phosphate (Robitussin Ac Liquid Cup) 10 ml Q4H PRN PO COUGH Last administered on 07/19/16 19:43; Admin Dose 10 ML; Start 07/18/16 at 23:30 Amiodarone HCl (Cordarone) 200 mg DAILY PO Last administered on 08/02/16 09:47 ; Admin Dose 200 MG; Start 07/20/16 at 09:00 Carvedilol (Coreg) 3.125 mg BID PO Last administered on 08/03/16 20:05; Admin Dose 3.125 MG; Start 07/24/16 at 09:00 Hydralazine HCl (Apresoline) 10 mg Q8 PO Last administered on 08/03/16 20:30; Admin Dose 10 MG; Start 07/29/16 at 14:00 Isosorbide Dinitrate (Isordil) 10 mg TID PO Last administered on 08/03/16 19:58 ; Admin Dose 10 MG; Start 07/30/16 at 21:00 Metolazone (Zaroxolyn) 2.5 mg DAILY PO Last administered on 08/02/16 09:43; Admin Dose 2.5 MG; Start 07/31/16 at 09:00 Furosemide (Lasix) 40 mg DAILY IV Last administered on 08/03/16 12:30; Admin Dose 40 MG; Start 08/02/16 at 09:00 POLI SAN Aug 04, 2016 16:11
--- NOTE | 2016-08-04 18:23 | CONS ---
Date/Time of Note Date/Time of Note DATE: 08/04/16 TIME: 18:21 Assessment/Plan Assessment/Plan Chief Complaint/Hosp Course 1. Patient has acute on chronic renal failure with acute kidney injury due to systolic heart failure.ON HD 2. The patient has LOW EF 3. Anemia. 4. ASHD 5. Acute urinary tract infection.BETTER 6 LOW EF 7 hyperkalemia HX 8 afib 9 hematuria PLAN CONTINUE LASIX SHORT HD D/W FAMILY [place] W DIALYSIS HD am CBI irrigation Problems: Consultation Date/Type/Reason Admit Date/Time Jul 18, 2016 at 14:06 Type of Consultation: renal Referring Provider: MURIEL EWING 24 HR Interval Summary Constitutional: other (sleeppy/hematuria will do cbi irrigation) Exam/Review of Systems Vital Signs Vitals Vital Signs Date Time Temp Pulse Resp B/P Pulse Ox O2 Delivery O2 Flow Rate FiO2 08/04/16 16:21 60 08/04/16 15:31 97.3 16 102/51 93 08/04/16 10:51 Nasal Cannula 4.0 Intake and Output 08/03/16 08/03/16 08/04/16 15:00 23:00 07:00 Intake Total 200 ml 1080 ml 120 ml Output Total 1200 ml 250 ml 100 ml Balance -1000 ml 830 ml 20 ml Exam Respiratory: clear to auscultation Cardiovascular: irregular rhythm Gastrointestinal: soft Musculoskeletal: nl extremities to inspection Extremities: No edema Results Result Diagram: 08/04/16 0555 08/04/16 0555 Results 24 hrs Laboratory Tests Test 08/04/16 05:55 Activated Partial Thromboplast Time 66.5 H Anion Gap 20 H Basophils # 0.0 Basophils % 0.0 Blood Urea Nitrogen 66 H Calcium Level 8.8 Carbon Dioxide Level 27 Chloride Level 95 L Creatinine 2.23 H Eosinophils # 0.0 Eosinophils % 0.1 Glucose Level 83 Hematocrit 41.2 L Hemoglobin 12.2 L INR International Normalized Ratio 3.78 Lymphocytes # 0.3 L Lymphocytes % 4.3 L Mean Corpuscular Hemoglobin 25.1 L Mean Corpuscular Hemoglobin Concent 29.6 L Mean Corpuscular Volume 84.6 Mean Platelet Volume 10.7 H Monocytes # 0.5 Monocytes % 6.8 Neutrophils # 6.3 Neutrophils % 88.4 H Nucleated Red Blood Cells # 0.5 H Nucleated Red Blood Cells % 6.4 H Platelet Count 224 Potassium Level 4.1 Prothrombin Time 37.9 #H Prothrombin Time Ratio 3.0 Red Blood Count 4.87 Red Cell Distribution Width 21.5 H Sodium Level 138 White Blood Count 7.2 Medications Medications Current Medications Apixaban (Eliquis) 2.5 mg BID PO Last administered on 08/03/16 19:58; Admin Dose 2.5 MG; Start 07/18/16 at 21:00; Status Future Hold Aspirin (Halfprin) 81 mg DAILY PO Last administered on 08/03/16 09:02; Admin Dose 81 MG; Start 07/19/16 at 09:00 Nitroglycerin (Nitroglycerin (Sl Tab) 0.4 Mg) 1 tab DAILY PRN SL CHEST PAIN; Start 07/18/16 at 15:30 Sucralfate (Carafate) 1 gm QID PO Last administered on 08/04/16 17:37; Admin Dose 1 GM; Start 07/18/16 at 17:00 Pantoprazole (Protonix Tab) 40 mg DAILY@06 PO Last administered on 08/03/16 06: 22; Admin Dose 40 MG; Start 07/19/16 at 06:00 Ondansetron HCl (Zofran Inj) 4 mg Q6H PRN IV NAUSEA AND/OR VOMITING Last administered on 07/23/16 00:24; Admin Dose 4 MG; Start 07/18/16 at 15:30 Acetaminophen (Tylenol Tab) 650 mg Q6H PRN PO PAIN LEVEL 1-3 OR FEVER Last administered on 08/02/16 15:25; Admin Dose 650 MG; Start 07/18/16 at 15:30 Acetaminophen (Tylenol Supp) 650 mg Q6H PRN [place] PAIN LEVEL 1-3 OR FEVER; Start 07/18/16 at 15:30 Docusate Sodium (Colace) 100 mg Q12H PRN PO CONSTIPATION Last administered on 20:19; Admin Dose 100 MG; Start 07/18/16 at 15:30 Magnesium Hydroxide (Milk Of Mag) 30 ml DAILY PRN PO CONSTIPATION Last administered on 07/28/16 23:03; Admin Dose 30 ML; Start 07/18/16 at 15:30 Bisacodyl (Dulcolax Supp) 10 mg DAILY PRN [place] CONSTIPATION; Start 07/18/16 at 15 :30 Miscellaneous Information 1 ea NOTE XX ; Start 07/18/16 at 17:30 Glucose (Glutose) 15 gm Q15M PRN PO DECREASED GLUCOSE; Start 07/18/16 at 17:30 Glucose (Glutose) 22.5 gm Q15M PRN PO DECREASED GLUCOSE; Start 07/18/16 at 17: 30 Dextrose (D50w Syringe) 25 ml Q15M PRN IV DECREASED GLUCOSE; Start 07/18/16 at 17:30 Dextrose (D50w Syringe) 50 ml Q15M PRN IV DECREASED GLUCOSE; Start 07/18/16 at 17:30 Glucagon (Glucagen) 1 mg Q15M PRN IM DECREASED GLUCOSE; Start 07/18/16 at 17:30 Glucose (Glutose) 15 gm Q15M PRN BUCCAL DECREASED GLUCOSE; Start 07/18/16 at 17 :30 Guaifenesin/ Codeine Phosphate (Robitussin Ac Liquid Cup) 10 ml Q4H PRN PO COUGH Last administered on 07/19/16 19:43; Admin Dose 10 ML; Start 07/18/16 at 23:30 Amiodarone HCl (Cordarone) 200 mg DAILY PO Last administered on 08/02/16 09:47 ; Admin Dose 200 MG; Start 07/20/16 at 09:00 Carvedilol (Coreg) 3.125 mg BID PO Last administered on 08/03/16 20:05; Admin Dose 3.125 MG; Start 07/24/16 at 09:00 Hydralazine HCl (Apresoline) 10 mg Q8 PO Last administered on 08/03/16 20:30; Admin Dose 10 MG; Start 07/29/16 at 14:00 Isosorbide Dinitrate (Isordil) 10 mg TID PO Last administered on 08/03/16 19:58 ; Admin Dose 10 MG; Start 07/30/16 at 21:00 Metolazone (Zaroxolyn) 2.5 mg DAILY PO Last administered on 08/02/16 09:43; Admin Dose 2.5 MG; Start 07/31/16 at 09:00 Furosemide (Lasix) 40 mg DAILY IV Last administered on 08/03/16 12:30; Admin Dose 40 MG; Start 08/02/16 at 09:00 YANIRA HART MD Aug 04, 2016 18:23
[2016-08-04] MEDS: LEVALBUTEROL (NEB) 0.63 MG/3 ML AMP HHN PRN (21:32)
[2016-08-04] MEDS: IPRATROPIUM (NEB) 0.5 MG/2.5 ML AMP HHN PRN (21:32)
[2016-08-05] VITALS (24 sets, daily range): BP systolic 92–113; BP diastolic 47–62; PULSE 59–65; RESP 16–19
[2016-08-05] MEDS: PANTOPRAZOLE (EC) 40 MG TAB PO SCH (06:39)
[2016-08-05] MEDS ORDERED: CA CHLORIDE 10% 10 ML SYRINGE ONE (07:00)
[2016-08-05] MEDS ORDERED: EPINEPHrine 0.1 MG/ML SYG ONE (07:00)
[2016-08-05] MEDS ORDERED: VERAPAMIL 5 MG INJ ONE (07:00)
[2016-08-05 07:41] LABS: POTASSIUM 4.2 mmol/L (3.5-5.1)
[2016-08-05 07:43] LABS: INR 4.47; PROTIME 43.3 Sec (12.2-14.2); PT RATIO 3.4
[2016-08-05 07:44] LABS: CREATININE 2.91 mg/dl (0.61-1.24); PARTIAL THROMBOPLASTIN TIME 67.9 Sec (25.0-35.0)
[2016-08-05 07:45] LABS: CALCIUM 8.9 mg/dl (8.4-10.2)
[2016-08-05] MEDS: FUROSEMIDE 40 MG INJ IV SCH (08:55)
[2016-08-05] MEDS: METOLAZONE 2.5 MG TAB PO SCH (08:56)
[2016-08-05] MEDS: ISOSORBIDE DINITRATE 10 MG TAB PO SCH ×3 (08:56→20:32)
[2016-08-05] MEDS: AMIODARONE 200 MG TAB PO SCH (08:56)
[2016-08-05] MEDS: SUCRALFATE 1 GM TAB PO SCH ×4 (09:06→20:27)
[2016-08-05] MEDS: ASPIRIN (EC) 81 MG TAB PO SCH (09:06)
--- NOTE | 2016-08-05 09:31 | PN ---
Date/Time of Note Date/Time of Note DATE: 08/05/16 TIME: 09:21 Assessment/Plan VTE Prophylaxis VTE Prophylaxis Intervention: other (Eliquis) Lines/Catheters IV Catheter Type (from Nrsg): STACEY CATH Central line still needed: Yes (Dialysis access ) Urinary Cath still in place: No Assessment/Plan Assessment/Plan 1. Acute on chronic congestive heart failure on Lasix 2. 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 Type 2 diabetes. 4. Atrial fibrillation, rate controlled 5. History of CAD status post CABG 6. Acute on likely chronic kidney disease 2/2 cardiorenal syndorme- did not improve, s/p Stacey catheter placement on 08/01/16- Started on HD by reeling machine operator Dr.Balbir Lamar- plan for permacath today Plan: There was some complain of hematuria, pt is ordered to have cohen catheter and CBI but pt family refused, so it was not inserted, Today AM pt voided with kelly colored urine, currently has condom catheter with very dark urine Plan for HD as per Nephrology- planned for today Continue eliquis for anticoagulation, cardiology has been following, rate controlled with amiodarone and coreg will consider changing lasix to40mg po daily plan for permacath today with anticipatin of senior care HD, scheduled for today at 7 pm appreciate cardiology and nephrology help Subjective 24 Hr Interval Summary Free Text/Dictation There was some complain of hematuria, pt is ordered to have cohen catheter and CBI but pt family refused, so it was not inserted, Today AM pt voided with kelly colored urine, currently has condom catheter with very dark urine HD per nephrology and outpatient HD placement requested Exam/Review of Systems Vital Signs Vitals Vital Signs Date Time Temp Pulse Resp B/P Pulse Ox O2 Delivery O2 Flow Rate FiO2 08/05/16 08:48 60 08/05/16 07:22 98.7 16 110/53 100 08/04/16 21:35 2.0 08/04/16 21:35 Nasal Cannula Intake and Output 08/04/16 08/04/16 08/05/16 15:00 23:00 07:00 Intake Total 350 ml 100 ml Output Total 250 ml 50 ml Balance 100 ml 50 ml Exam GEN: awake but not oriented to place and time Respiratory: decreased BS at both lung bases, no wheezing Cardiovascular: S1 S2 irregular Gastrointestinal: soft,, NT, No distended Musculoskeletal: nl extremities to inspection + stacey catheter + condom catheter with dark colored urine Results Result Diagram: 08/04/16 0555 08/05/16 0652 Results 24 hrs Laboratory Tests Test 08/05/16 06:52 Activated Partial Thromboplast Time 67.9 H Anion Gap 19 H Blood Urea Nitrogen 84 H Calcium Level 8.9 Carbon Dioxide Level 26 Chloride Level 94 L Creatinine 2.91 H Glucose Level 82 INR International Normalized Ratio 4.47 Phosphorus Level 5.0 H Potassium Level 4.2 Prothrombin Time 43.3 H Prothrombin Time Ratio 3.4 Sodium Level 135 Medications Medications Current Medications Apixaban (Eliquis) 2.5 mg BID PO Last administered on 08/03/16 19:58; Admin Dose 2.5 MG; Start 07/18/16 at 21:00; Status Future Hold Aspirin (Halfprin) 81 mg DAILY PO Last administered on 08/05/16 09:06; Admin Dose 81 MG; Start 07/19/16 at 09:00 Nitroglycerin (Nitroglycerin (Sl Tab) 0.4 Mg) 1 tab DAILY PRN SL CHEST PAIN; Start 07/18/16 at 15:30 Sucralfate (Carafate) 1 gm QID PO Last administered on 08/05/16 09:06; Admin Dose 1 GM; Start 07/18/16 at 17:00 Pantoprazole (Protonix Tab) 40 mg DAILY@06 PO Last administered on 08/05/16 06: 39; Admin Dose 40 MG; Start 07/19/16 at 06:00 Ondansetron HCl (Zofran Inj) 4 mg Q6H PRN IV NAUSEA AND/OR VOMITING Last administered on 07/23/16 00:24; Admin Dose 4 MG; Start 07/18/16 at 15:30 Acetaminophen (Tylenol Tab) 650 mg Q6H PRN PO PAIN LEVEL 1-3 OR FEVER Last administered on 08/02/16 15:25; Admin Dose 650 MG; Start 07/18/16 at 15:30 Acetaminophen (Tylenol Supp) 650 mg Q6H PRN [place] PAIN LEVEL 1-3 OR FEVER; Start 07/18/16 at 15:30 Docusate Sodium (Colace) 100 mg Q12H PRN PO CONSTIPATION Last administered on 20:19; Admin Dose 100 MG; Start 07/18/16 at 15:30 Magnesium Hydroxide (Milk Of Mag) 30 ml DAILY PRN PO CONSTIPATION Last administered on 07/28/16 23:03; Admin Dose 30 ML; Start 07/18/16 at 15:30 Bisacodyl (Dulcolax Supp) 10 mg DAILY PRN [place] CONSTIPATION; Start 07/18/16 at 15 :30 Miscellaneous Information 1 ea NOTE XX ; Start 07/18/16 at 17:30 Glucose (Glutose) 15 gm Q15M PRN PO DECREASED GLUCOSE; Start 07/18/16 at 17:30 Glucose (Glutose) 22.5 gm Q15M PRN PO DECREASED GLUCOSE; Start 07/18/16 at 17: 30 Dextrose (D50w Syringe) 25 ml Q15M PRN IV DECREASED GLUCOSE; Start 07/18/16 at 17:30 Dextrose (D50w Syringe) 50 ml Q15M PRN IV DECREASED GLUCOSE; Start 07/18/16 at 17:30 Glucagon (Glucagen) 1 mg Q15M PRN IM DECREASED GLUCOSE; Start 07/18/16 at 17:30 Glucose (Glutose) 15 gm Q15M PRN BUCCAL DECREASED GLUCOSE; Start 07/18/16 at 17 :30 Guaifenesin/ Codeine Phosphate (Robitussin Ac Liquid Cup) 10 ml Q4H PRN PO COUGH Last administered on 07/19/16 19:43; Admin Dose 10 ML; Start 07/18/16 at 23:30 Amiodarone HCl (Cordarone) 200 mg DAILY PO Last administered on 08/02/16 09:47 ; Admin Dose 200 MG; Start 07/20/16 at 09:00 Carvedilol (Coreg) 3.125 mg BID PO Last administered on 08/03/16 20:05; Admin Dose 3.125 MG; Start 07/24/16 at 09:00 Hydralazine HCl (Apresoline) 10 mg Q8 PO Last administered on 08/03/16 20:30; Admin Dose 10 MG; Start 07/29/16 at 14:00 Isosorbide Dinitrate (Isordil) 10 mg TID PO Last administered on 08/03/16 19:58 ; Admin Dose 10 MG; Start 07/30/16 at 21:00 Metolazone (Zaroxolyn) 2.5 mg DAILY PO Last administered on 08/02/16 09:43; Admin Dose 2.5 MG; Start 07/31/16 at 09:00 Furosemide (Lasix) 40 mg DAILY IV Last administered on 08/04/16 19:59; Admin Dose 40 MG; Start 08/02/16 at 09:00 STEPHAN MARES MD Aug 05, 2016 09:31
--- NOTE | 2016-08-05 13:01 | CONS ---
Date/Time of Note Date/Time of Note DATE: 08/05/16 TIME: 12:58 Assessment/Plan Assessment/Plan Chief Complaint/Hosp Course IMPRESSION: 1. Congestive heart failure exacerbation, systolic, acute on chronic.-negative troponin x 3. EF 25% by most recent echo-worsening 2. Shortness of breath secondary to #1. 3. History of coronary artery bypass graft surgery. Assess for acute coronary syndrome.-negative troponin x 3 since admit 4. Abnormal electrocardiogram . Assess for acute coronary syndrome.-negative troponin x3 5. History of paroxysmal atrial fibrillation, on apixaban and amiodarone. 6. Acute on chronic renal failure-Now on HD 7. Hypertension,currently uncontrolled 8. Anemia, mild. 9. Coagulopathy secondary to apixaban. 10.Hematuria Rec: -tele -Continue amiodarone for now -Continue coreg and hydralazine/isordil as tolerated -Continue HD for volume removal with plans to be continued residential -s/p dose digoxin IVP to increase contractility -Continue apixaban and will hold asa at this time given hematuria -Hold all sedation Problems: Consultation Date/Type/Reason Admit Date/Time Jul 18, 2016 at 14:06 Initial Consult Date 07/19/2016 Type of Consultation: Cardiology Reason for Consultation CHF/cardiomyopathy Referring Provider: MURIEL EWING Exam/Review of Systems Vital Signs Vitals Vital Signs Date Time Temp Pulse Resp B/P Pulse Ox O2 Delivery O2 Flow Rate FiO2 08/05/16 12:34 59 08/05/16 11:56 14 08/05/16 11:42 97.7 94/48 99 08/05/16 09:06 Nasal Cannula 4.0 Intake and Output 08/04/16 08/04/16 08/05/16 15:00 23:00 07:00 Intake Total 350 ml 100 ml Output Total 250 ml 50 ml Balance 100 ml 50 ml Exam Review of Systems: CONSTITUTIONAL: No fevers, chills. PULMONARY: No sob CARDIOVASCULAR: No chest pain/palpitations GASTROINTESTINAL: No nausea/vomiting. GENITOURINARY: No hematuria/dysuria. MUSCULOSKELETAL: No myagias/arthalgias. PSYCHIATRIC: The patient denies depression. NEUROLOGIC: lethargic Constitutional: alert Psych: no complaints Head: normocephalic ENMT: mucosa pink and moist Neck: jvd (9 cm water), supple Respiratory: diminished breath sounds (at bases/B) Cardiovascular: irregular rhythm Gastrointestinal: non-tender, soft Musculoskeletal: muscle weakness (generalized) Extremities: edema (none) Neurological: lethargic Results Result Diagram: 08/04/16 0555 08/05/16 0652 Results 24 hrs Laboratory Tests Test 08/05/16 06:52 Activated Partial Thromboplast Time 67.9 H Anion Gap 19 H Blood Urea Nitrogen 84 H Calcium Level 8.9 Carbon Dioxide Level 26 Chloride Level 94 L Creatinine 2.91 H Glucose Level 82 INR International Normalized Ratio 4.47 Phosphorus Level 5.0 H Potassium Level 4.2 Prothrombin Time 43.3 H Prothrombin Time Ratio 3.4 Sodium Level 135 Medications Medications Current Medications Apixaban (Eliquis) 2.5 mg BID PO Last administered on 08/03/16 19:58; Admin Dose 2.5 MG; Start 07/18/16 at 21:00; Status Future Hold Aspirin (Halfprin) 81 mg DAILY PO Last administered on 08/05/16 09:06; Admin Dose 81 MG; Start 07/19/16 at 09:00 Nitroglycerin (Nitroglycerin (Sl Tab) 0.4 Mg) 1 tab DAILY PRN SL CHEST PAIN; Start 07/18/16 at 15:30 Sucralfate (Carafate) 1 gm QID PO Last administered on 08/05/16 09:06; Admin Dose 1 GM; Start 07/18/16 at 17:00 Pantoprazole (Protonix Tab) 40 mg DAILY@06 PO Last administered on 08/05/16 06: 39; Admin Dose 40 MG; Start 07/19/16 at 06:00 Ondansetron HCl (Zofran Inj) 4 mg Q6H PRN IV NAUSEA AND/OR VOMITING Last administered on 07/23/16 00:24; Admin Dose 4 MG; Start 07/18/16 at 15:30 Acetaminophen (Tylenol Tab) 650 mg Q6H PRN PO PAIN LEVEL 1-3 OR FEVER Last administered on 08/02/16 15:25; Admin Dose 650 MG; Start 07/18/16 at 15:30 Acetaminophen (Tylenol Supp) 650 mg Q6H PRN [place] PAIN LEVEL 1-3 OR FEVER; Start 07/18/16 at 15:30 Docusate Sodium (Colace) 100 mg Q12H PRN PO CONSTIPATION Last administered on 20:19; Admin Dose 100 MG; Start 07/18/16 at 15:30 Magnesium Hydroxide (Milk Of Mag) 30 ml DAILY PRN PO CONSTIPATION Last administered on 07/28/16 23:03; Admin Dose 30 ML; Start 07/18/16 at 15:30 Bisacodyl (Dulcolax Supp) 10 mg DAILY PRN [place] CONSTIPATION; Start 07/18/16 at 15 :30 Miscellaneous Information 1 ea NOTE XX ; Start 07/18/16 at 17:30 Glucose (Glutose) 15 gm Q15M PRN PO DECREASED GLUCOSE; Start 07/18/16 at 17:30 Glucose (Glutose) 22.5 gm Q15M PRN PO DECREASED GLUCOSE; Start 07/18/16 at 17: 30 Dextrose (D50w Syringe) 25 ml Q15M PRN IV DECREASED GLUCOSE; Start 07/18/16 at 17:30 Dextrose (D50w Syringe) 50 ml Q15M PRN IV DECREASED GLUCOSE; Start 07/18/16 at 17:30 Glucagon (Glucagen) 1 mg Q15M PRN IM DECREASED GLUCOSE; Start 07/18/16 at 17:30 Glucose (Glutose) 15 gm Q15M PRN BUCCAL DECREASED GLUCOSE; Start 07/18/16 at 17 :30 Guaifenesin/ Codeine Phosphate (Robitussin Ac Liquid Cup) 10 ml Q4H PRN PO COUGH Last administered on 07/19/16 19:43; Admin Dose 10 ML; Start 07/18/16 at 23:30 Amiodarone HCl (Cordarone) 200 mg DAILY PO Last administered on 08/02/16 09:47 ; Admin Dose 200 MG; Start 07/20/16 at 09:00 Carvedilol (Coreg) 3.125 mg BID PO Last administered on 08/03/16 20:05; Admin Dose 3.125 MG; Start 07/24/16 at 09:00 Hydralazine HCl (Apresoline) 10 mg Q8 PO Last administered on 08/03/16 20:30; Admin Dose 10 MG; Start 07/29/16 at 14:00 Isosorbide Dinitrate (Isordil) 10 mg TID PO Last administered on 08/03/16 19:58 ; Admin Dose 10 MG; Start 07/30/16 at 21:00 Metolazone (Zaroxolyn) 2.5 mg DAILY PO Last administered on 08/02/16t 09:43; Admin Dose 2.5 MG; Start 07/31/16 at 09:00 Furosemide (Lasix) 40 mg DAILY PO ; Start 08/06/16 at 09:00 POLI SAN Aug 05, 2016 13:01
[2016-08-05] MEDS ORDERED: HEPARIN 1000 UNITS/ML 10 ML INJ ONE (19:16)
[2016-08-05] MEDS ORDERED: LIDOCAINE 1% (STERILE-PAK) 30 ML INJ ONE (19:16)
[2016-08-05] MEDS ORDERED: IOHEXOL 300MG/ML 30 ML BTL ONE (19:17)
--- NOTE | 2016-08-05 19:47 | CONS ---
Date/Time of Note Date/Time of Note DATE: 08/05/16 TIME: 19:46 Assessment/Plan Assessment/Plan Chief Complaint/Hosp Course 1. Patient has acute on chronic renal failure with acute kidney injury due to systolic heart failure.ON HD 2. The patient has LOW EF 3. Anemia. 4. ASHD 5. Acute urinary tract infection.BETTER 6 LOW EF 7 hyperkalemia HX 8 afib 9 hematuria PLAN CONTINUE LASIX SHORT HD HD Problems: Consultation Date/Type/Reason Admit Date/Time Jul 18, 2016 at 14:06 Type of Consultation: renal Referring Provider: MURIEL EWING 24 HR Interval Summary Constitutional: other (seen on hd) Exam/Review of Systems Vital Signs Vitals Vital Signs Date Time Temp Pulse Resp B/P Pulse Ox O2 Delivery O2 Flow Rate FiO2 08/05/16 16:57 60 08/05/16 16:15 3.0 08/05/16 15:16 99.1 16 102/52 99 08/05/16 09:06 Nasal Cannula Intake and Output 08/04/16 08/04/16 08/05/16 15:00 23:00 07:00 Intake Total 350 ml 100 ml Output Total 250 ml 50 ml Balance 100 ml 50 ml Exam Respiratory: diminished breath sounds Cardiovascular: regular rate and rhythm Gastrointestinal: soft Genitourinary - Male: nl penis Musculoskeletal: nl extremities to inspection Extremities: normal pulses Results Result Diagram: 08/04/16 0555 08/05/16 0652 Results 24 hrs Laboratory Tests Test 08/05/16 06:52 Activated Partial Thromboplast Time 67.9 H Anion Gap 19 H Blood Urea Nitrogen 84 H Calcium Level 8.9 Carbon Dioxide Level 26 Chloride Level 94 L Creatinine 2.91 H Glucose Level 82 INR International Normalized Ratio 4.47 Phosphorus Level 5.0 H Potassium Level 4.2 Prothrombin Time 43.3 H Prothrombin Time Ratio 3.4 Sodium Level 135 Medications Medications Current Medications Apixaban (Eliquis) 2.5 mg BID PO Last administered on 08/03/16 19:58; Admin Dose 2.5 MG; Start 07/18/16 at 21:00; Status Future Hold Aspirin (Halfprin) 81 mg DAILY PO Last administered on 08/05/16 09:06; Admin Dose 81 MG; Start 07/19/16 at 09:00; Status Future Hold Nitroglycerin (Nitroglycerin (Sl Tab) 0.4 Mg) 1 tab DAILY PRN SL CHEST PAIN; Start 07/18/16 at 15:30 Sucralfate (Carafate) 1 gm QID PO Last administered on 08/05/16 17:58; Admin Dose 1 GM; Start 07/18/16 at 17:00 Pantoprazole (Protonix Tab) 40 mg DAILY@06 PO Last administered on 08/05/16 06: 39; Admin Dose 40 MG; Start 07/19/16 at 06:00 Ondansetron HCl (Zofran Inj) 4 mg Q6H PRN IV NAUSEA AND/OR VOMITING Last administered on 07/23/16 00:24; Admin Dose 4 MG; Start 07/18/16 at 15:30 Acetaminophen (Tylenol Tab) 650 mg Q6H PRN PO PAIN LEVEL 1-3 OR FEVER Last administered on 08/02/16 15:25; Admin Dose 650 MG; Start 07/18/16 at 15:30 Acetaminophen (Tylenol Supp) 650 mg Q6H PRN [place] PAIN LEVEL 1-3 OR FEVER; Start 07/18/16 at 15:30 Docusate Sodium (Colace) 100 mg Q12H PRN PO CONSTIPATION Last administered on 20:19; Admin Dose 100 MG; Start 07/18/16 at 15:30 Magnesium Hydroxide (Milk Of Mag) 30 ml DAILY PRN PO CONSTIPATION Last administered on 07/28/16 23:03; Admin Dose 30 ML; Start 07/18/16 at 15:30 Bisacodyl (Dulcolax Supp) 10 mg DAILY PRN [place] CONSTIPATION; Start 07/18/16 at 15 :30 Miscellaneous Information 1 ea NOTE XX ; Start 07/18/16 at 17:30 Glucose (Glutose) 15 gm Q15M PRN PO DECREASED GLUCOSE; Start 07/18/16 at 17:30 Glucose (Glutose) 22.5 gm Q15M PRN PO DECREASED GLUCOSE; Start 07/18/16 at 17: 30 Dextrose (D50w Syringe) 25 ml Q15M PRN IV DECREASED GLUCOSE; Start 07/18/16 at 17:30 Dextrose (D50w Syringe) 50 ml Q15M PRN IV DECREASED GLUCOSE; Start 07/18/16 at 17:30 Glucagon (Glucagen) 1 mg Q15M PRN IM DECREASED GLUCOSE; Start 07/18/16 at 17:30 Glucose (Glutose) 15 gm Q15M PRN BUCCAL DECREASED GLUCOSE; Start 07/18/16 at 17 :30 Guaifenesin/ Codeine Phosphate (Robitussin Ac Liquid Cup) 10 ml Q4H PRN PO COUGH Last administered on 07/19/16 19:43; Admin Dose 10 ML; Start 07/18/16 at 23:30 Amiodarone HCl (Cordarone) 200 mg DAILY PO Last administered on 08/02/16 09:47 ; Admin Dose 200 MG; Start 07/20/16 at 09:00 Carvedilol (Coreg) 3.125 mg BID PO Last administered on 08/03/16 20:05; Admin Dose 3.125 MG; Start 07/24/16 at 09:00 Hydralazine HCl (Apresoline) 10 mg Q8 PO Last administered on 08/03/16 20:30; Admin Dose 10 MG; Start 07/29/16 at 14:00 Isosorbide Dinitrate (Isordil) 10 mg TID PO Last administered on 08/03/16 19:58 ; Admin Dose 10 MG; Start 07/30/16 at 21:00 Metolazone (Zaroxolyn) 2.5 mg DAILY PO Last administered on 08/02/16 09:43; Admin Dose 2.5 MG; Start 07/31/16 at 09:00 Furosemide (Lasix) 40 mg DAILY PO ; Start 08/06/16 at 09:00 YANIRA HART MD Aug 05, 2016 19:47
--- NOTE | 2016-08-05 20:27 | PN ---
Date/Time of Note Date/Time of Note DATE: 08/05/16 TIME: 20:26 Assessment/Plan Lines/Catheters IV Catheter Type (from Nrsg): STACEY CATH Gan in Place (from Nrsg): No Assessment/Plan Chief Complaint/Hosp Course PASCALE SP Stacey cath INR 4.47 plan for permcath when coagulapathy is corrected Problems: Subjective 24 Hr Interval Summary Constitutional: improved Pain Control: mild Exam/Review of Systems Vital Signs Vitals Vital Signs Date Time Temp Pulse Resp B/P Pulse Ox O2 Delivery O2 Flow Rate FiO2 08/05/16 16:57 60 08/05/16 16:15 3.0 08/05/16 15:16 99.1 16 102/52 99 08/05/16 09:06 Nasal Cannula Intake and Output 08/04/16 08/04/16 08/05/16 14:59 22:59 06:59 Intake Total 350 ml 100 ml Output Total 250 ml 50 ml Balance 100 ml 50 ml Exam Neck: non-tender, supple Respiratory: clear to auscultation, normal air movement Cardiovascular: nl pulses, regular rate and rhythm Gastrointestinal: nl liver, spleen, non-tender, soft Results Result Diagram: 08/04/16 0555 08/05/16 0652 EULOGIO DOE MD Aug 05, 2016 20:27
[2016-08-05] MEDS: ONDANSETRON 4 MG INJ IV PRN (23:48)
[2016-08-06] VITALS (96 sets, daily range): BP systolic 65–153; BP diastolic 31–87; PULSE 60–96; RESP 9–25
[2016-08-06] MEDS: SOD CHLORIDE 0.9% 1,000 ML IV SCH ×2 (00:23→20:41)
[2016-08-06] MEDS ORDERED: SOD CHLORIDE 0.9% 500 ML IV ONE ×2 (00:30→03:30)
[2016-08-06] MEDS ORDERED: NORepinephrine 8MG/250 ML (PMX 250 ML ONE (01:40)
[2016-08-06] MEDS ORDERED: NORepinephrine 8MG/250 ML (PMX 250 ML IV SCH (02:05)
--- NOTE | 2016-08-06 03:10 | EN ---
Date/Time of Note Date/Time of Note DATE: 08/06/16 TIME: 03:05 ER Progress Note CODE BLUE This 81-year-old male was admitted for congestive heart failure last week he underwent his second dialysis treatment today. After dialysis his blood pressures continued to decline after getting fluids and he was finally placed on levo fed. The patient's blood pressure then continued to decline more the patient lost his pulse and a CODE BLUE was called. My arrival the patient was getting active CPR and being bagged by RT. The patient had no palpable pulse and has a pacemaker with a paced rhythm is 52 on the monitor. Const: Well-developed, well-nourished Head: Atraumatic, normocephalic Eyes: [Normal Conjunctiva, normal sclera, ENT: Normal External Ears, Nose and Mouth, moist mucus membranes. Neck: Full range of motion. No meningismus, no lymphadenopathy. Resp: Scattered mild rhonchi Cardio: No spontaneous cardiac activity Abd: Soft,, non distended. Skin: No petechiae or rashes, no ecchymosis , no maculopapular rash Back: Not examined Ext: No cyanosis, or edema,, normal inspection, right groin permacath Neur: GCS of 3 Psych: [Unable to obtain The patient's potassium was normal this morning. However he was given calcium chloride, sodium bicarb, epinephrine IV. CPR was continued and a pulse was then spontaneously felt. Endotracheal Intubation by me: Pre assessment performed. See preceding note for details. Pre-oxygenation performed with 100% oxygen RSI: Performed w/o complication or hypoxic events. Medications as ordered. Blade: [Mac 4] ET Tube: 7.5 cm Depth: [23] cm at the lip Intubation confirmed by colorimetric CO2, equal breath sounds, quiet over the stomach. Central Line Placement by me: Patient consented, sterilely draped, full prep, gown, glove, mask, time out performed. Anesthesia: none Location: Left femoral Device: Multiple lumen Technique: Seldinger technique. Secured with suture. Results: Venous return from all ports with easy saline flush. No complications. [XOXOXO]Guide wire retrieved and disposed of. Critical Care Time: 30 minutes Treatments/Evaluations: Close monitoring and treatment of unstable vital signs, cardiorespiratory, and neurologic status, while maintaining tight balance of fluid, respiratory, and cardiac interventions. This time includes discussing the case with the patient and the patient's family. This time does not include all procedures stated elsewhere in this record. This time also includes reviewing old records, labs and radiological studies. This time includes examining and re-examining the patient. Additionally, this time also includes arranging care with admitting and consulting physicians. Condition: Critical Diagnosis: Cardiac arrest successful resuscitation, intubation, central line MOHIT GALLARDO DO Aug 06, 2016 03:10
[2016-08-06 03:51] LABS: ADD SCAN DIFF NO
[2016-08-06 03:52] LABS: ABNORMAL IP MESSAGE 1; BASOPHILS % 0.1 % (0.0-2.0); EOSINOPHILS % 0.3 % (0.0-7.0); HEMATOCRIT 40.1 % (42.0-52.0); HEMOGLOBIN 11.5 g/dl (14.0-18.0); LYMPHOCYTES # 0.2 10^3/ul (0.8-2.9); LYMPHOCYTES % 2.2 % (15.0-51.0); MEAN CORPUSCULAR HEMOGLOBIN 25.2 pg (29.0-33.0); MEAN CORPUSCULAR HGB CONC 28.7 g/dl (32.0-37.0); MEAN CORPUSCULAR VOLUME 87.7 fl (82.0-101.0); MEAN PLATELET VOLUME 10.3 fl (7.4-10.4); MONOCYTE # 0.3 10^3/ul (0.3-0.9); MONOCYTES % 3.3 % (0.0-11.0); NEUTROPHIL # 9.5 10^3/ul (1.6-7.5); NEUTROPHILS % 92.8 % (39.0-77.0); NUCLEATED RED BLOOD CELLS # 0.7 10^3/ul (0.0-0.0); NUCLEATED RED BLOOD CELLS% 6.6 /100WBC (0.0-0.0); PLATELET COUNT 191 10^3/UL (140-415); RED BLOOD COUNT 4.57 10^6/ul (4.70-6.10); RED CELL DISTRIBUTION WIDTH 22.2 % (11.5-14.5); WHITE BLOOD COUNT 10.2 10^3/ul (4.8-10.8)
--- NOTE | 2016-08-06 03:55 | EN ---
Date/Time of Note Date/Time of Note DATE: 08/06/16 TIME: 03:28 ER Progress Note CODE SEBASTIAN was called on patient shortly he arrived to the ICU after being hypotensive on the floor and not responding to a fluid bolus. While on the floor , his BP dropped from 70/47 to 66/36 with 400 of 500 cc bolus in. He was started on Levophed and transferred to the ICU. While RN was assessing him, his respirations became agonal at 2 per minute Yesterday, patient had received his 2nd dialysis session and he diuresed 1.3 L. He has DM, a pacemaker and CHF. Patient arrested just as the ER Physician arrived and CPR began. He ultimately received 2 rounds of Epi and Calcium (see Nursing documentation for exact details. He was intubated successfully and ROSC occurred. He was placed on a mechanical ventilator and received a right femoral central line which was placed by the ER physician. STAT Labs and a pCXR were ordered. CXR revealed the tube was right at the travis. The tube will be pulled back from 23 to 21 cm. Patient's son was just outside the room during the code and more family members arrived afterwards. Another 500 cc bolus of NS was ordered to be continued at 75 cc/hr as he seems to have become dehydrated during the dialysis process.. He is now on a Propofol Drip and Vasopressin Drip to be titrated to best effect. Vasopressin was needed as he was already maxed out on the Levophed when I arrived. JONELLE BOUDREAUX DO Aug 06, 2016 03:55
--- NOTE | 2016-08-06 04:00 | RADRPT ---
PROCEDURE: XR Chest. CLINICAL INDICATION: Shortness of breath. TECHNIQUE: AP Portable chest. COMPARISON: 08/03/2016 FINDINGS: There is marked cardiomegaly similar to the prior. A left chest cardiac device and leads are noted. Prior median sternotomy is noted. There is moderate pulmonary vascular congestion similar to the prior. The osseous structures are unremarkable. An endotracheal tube tip is in the distal trachea, 1 cm above the level of the travis. This can be pulled back 2.5 cm for placement in the mid trachea. IMPRESSION: Moderate pulmonary vascular congestion. RPTAT: HIKT .Anjel Castaneda MD, MD Date Time Electronically viewed and signed by .Anjel Castaneda MD, on 08/06/2016 03:59 .T/
[2016-08-06 04:02] LABS: PROTIME 70.8 Sec (12.2-14.2); PT RATIO 5.5
[2016-08-06] MEDS: VASOPRESSIN 60 UNIT in DEXTROSE 5% 57 ML IV SCH ×2 (04:06→18:37)
[2016-08-06 04:12] LABS: ALBUMIN 2.4 g/dl (3.3-4.9)
[2016-08-06 04:14] LABS: INR 8.3
[2016-08-06 04:15] LABS: ALBUMIN/GLOBULIN RATIO 0.92; BILIRUBIN,DIRECT 0.8 mg/dl (0.00-0.20); BILIRUBIN,INDIRECT 0.6 mg/dl (0-1.1); BILIRUBIN,TOTAL 1.4 mg/dl (0.2-1.3); CREATININE 2.66 mg/dl (0.61-1.24)
[2016-08-06 04:16] LABS: CALCIUM 8.2 mg/dl (8.4-10.2)
[2016-08-06] MEDS: PROPOFOL 100 ML IV SCH ×2 (04:19→17:33)
[2016-08-06 05:15] LABS: AADO2 Arterial 450.7 mmHg (7.0-24.0); Arterial Base Excess -8.1 mmol/L (-3.0-3); Arterial COHb 0.6 % (0.0-3.0); Arterial Fraction of Oxyhgb 98.3 % (93.0-99.0); Arterial HCO3 19.1 mmol/L (22.0-26.0); Arterial MetHb 0.5 % (0.0-1.5); Arterial Total Hemglobin 13.3 g/dl (12.0-18.0)
[2016-08-06] MEDS: PANTOPRAZOLE (EC) 40 MG TAB PO SCH (05:19)
[2016-08-06 05:47] LABS: MODE VENT - AC
[2016-08-06 08:31] LABS: PROTIME 78.5 Sec (12.2-14.2); PT RATIO 6.1
[2016-08-06 08:59] LABS: INR 9.45
[2016-08-06] MEDS: AMIODARONE 200 MG TAB PO SCH (09:00)
[2016-08-06] MEDS: METOLAZONE 2.5 MG TAB PO SCH (09:00)
[2016-08-06] MEDS: FUROSEMIDE 40 MG TAB PO SCH (09:00)
[2016-08-06] MEDS: ISOSORBIDE DINITRATE 10 MG TAB PO SCH (09:00)
[2016-08-06] MEDS: SUCRALFATE 1 GM TAB PO SCH ×4 (09:00→21:00)
--- NOTE | 2016-08-06 10:41 | CONS ---
Date/Time of Note Date/Time of Note DATE: 08/06/16 TIME: 10:32 Assessment/Plan Assessment/Plan Additional Assessment/Plan Ventilator settings; AC of 14, tidal volume 500, PEEP of 5, 50% FiO2. Chest x-ray was reviewed from today which is showing florid pulmonary edema. Slight improvement compared to chest x-ray done 48 hours ago. Assessment recommendations; 1. Patient admitted for CHF exacerbation with clinical decompensation requiring mechanical ventilation. 2. Worsening renal function likely from renal hypoperfusion from underlying cardio myopathy. 3. History of prior coronary artery disease status post bypass surgery. 4. History of diabetes. 5. Possibly superimposed pneumonia. 6. Severe hypotension on back Recio. Levophed patient also started on vasopressin drip. 7. Poor urine output. Continue current supportive care. Continue current ventilator settings, antibiotics. I did have a detailed discussion the patient's son in the room as well as his and her son over the phone. Apprised him of his father's very precarious clinical condition. Prognosis is very guarded. Consultation Date/Type/Reason Admit Date/Time Jul 18, 2016 at 14:06 Date of Consultation: Aug 06, 2016 Type of Consultation: Pulmonary/critical care Reason for Consultation Pulmonary consultation requested for patient with respiratory failure. Next History presenting; patient is a 81-year-old male who was admitted on the of last month to [facility] for CHF exacerbation. The patient was being treated on the medical floor however early this morning the patient became hypotensive hypoxemic her to be transferred to ICU and was intubated by the ER physician. By the time I saw him the patient is orally intubated and sedated. History was obtained from medical records as well as from the patient' s son who is present in the room. Next Past medical history; 1. History of CHF due to systolic dysfunction with EF around 25%. 2. History of diabetes. 3. History of coronary artery disease. Status post bypass surgery. 4. History of cardiac arrhythmia, status post pacemaker implantation. 5. Possibly superimposed bilateral pneumonia. Medications; were reviewed. Allergies; Dipyrone ? Social history; patient has a remote history of smoking. Next Family history; patient is , he has 7 children. Various family members with diabetes hypertension. 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 Review of systems; currently unable to be obtained. General exam; elderly male, orally intubated, somewhat responsive. Constitutional: other (seen on hd) Cardiovascular: orthopenea (+) Gastrointestinal: no complaints Psychological: no complaints Past Surgical History Past Surgical Hx: coronary bypass surgery Social History Alcohol Use: none Smoking Status: Never smoker Drug Use: none Exam/Review of Systems Vital Signs Vitals Vital Signs Date Time Temp Pulse Resp B/P Pulse Ox O2 Delivery O2 Flow Rate FiO2 08/06/16 09:45 66 16 144/50 100 08/06/16 09:19 50 08/06/16 07:00 98.8 08/06/16 01:54 3.0 08/06/16 00:14 Nasal Cannula Intake and Output 08/05/16 08/05/16 08/06/16 15:00 23:00 07:00 Intake Total 600 ml 150 ml 1292 ml Output Total 1900 ml 100 ml 215 ml Balance -1300 ml 50 ml 1077 ml Exam HEENT exam; supple neck, positive JVD. Orally intubated. No neck masses. No thyromegaly. No lymphadenopathy. patient is edentulous. Pupils are small bilaterally. Chest examination; diminished breath sound throughout. S1-S2 audible, no murmurs. Regular rhythm. There is a well-healed sternal scar. Abdomen examination; soft, nondistended. No organomegaly. Bowel sound audible. Extremity examination; no peripheral edema. MANAGER PAPER examination; patient opens eyes on name calling. Results Result Diagram: 08/06/16 0330 08/06/16 0330 Results 24 hrs Laboratory Tests Test 08/06/16 03:19 08/06/16 03:30 08/06/16 07:10 Arterial Blood HCO3 19.1 L Arterial Blood Base Excess -8.1 L Arterial Blood Oxygen Saturation 99.4 Sebastien Test N/A Arterial Blood Gas Puncture Site Right Brachial Arterial Blood Carboxyhemoglobin 0.6 Arterial Blood Date Drawn 08/06/2016 5:00:00 AM Arterial Blood Methemoglobin 0.5 Arterial Blood pCO2 (Temp correct) 45.3 H Arterial Blood pH (Temp corrected) 7.242 *L Arterial Blood pO2 (Temp corrected) 217.0 H Blood Gas A-a O2 Differential 450.7 H Blood Gas Actual Respiration Rate 19 Blood Gas Critical Value Read Back SMOOTH OLIVIER Blood Gas Low PEEP Setting 5.0 Blood Gas Modality VENT - AC Blood Gas Notified Time 08/06/2016 5:15:00 AM Blood Gas Notified Whom MA Blood Gas Respiration Rate 14.0 Blood Gas Specimen Source Blood arterial Blood Gas Temperature 37.0 Blood Gas Tidal Volume 500.0 FiO2 100.0 Oxyhemoglobin Percent 98.3 Total Hemoglobin 13.3 Alanine Aminotransferase (ALT/SGPT) 46 Albumin 2.4 L Albumin/Globulin Ratio 0.92 Alkaline Phosphatase 134 H Anion Gap 20 H Aspartate Amino Transf (AST/SGOT) 71 H Basophils # 0.0 Basophils % 0.1 Blood Urea Nitrogen 64 H Calcium Level 8.2 L Carbon Dioxide Level 22 Chloride Level 101 Creatinine 2.66 H Direct Bilirubin 0.80 H Eosinophils # 0.0 Eosinophils % 0.3 Globulin 2.60 Glucose Level 127 # Hematocrit 40.1 L Hemoglobin 11.5 L INR International Normalized Ratio 8.30 *H 9.45 *H Indirect Bilirubin 0.6 Lymphocytes # 0.2 L Lymphocytes % 2.2 L Mean Corpuscular Hemoglobin 25.2 L Mean Corpuscular Hemoglobin Concent 28.7 L Mean Corpuscular Volume 87.7 Mean Platelet Volume 10.3 Monocytes # 0.3 Monocytes % 3.3 Neutrophils # 9.5 H Neutrophils % 92.8 H Nucleated Red Blood Cells # 0.7 H Nucleated Red Blood Cells % 6.6 H Platelet Count 191 Potassium Level 4.0 Prothrombin Time 70.8 #H 78.5 H Prothrombin Time Ratio 5.5 6.1 Red Blood Count 4.57 L Red Cell Distribution Width 22.2 H Sodium Level 139 Total Bilirubin 1.4 H Total Protein 5.0 L White Blood Count 10.2 # Medications Medications Current Medications Apixaban (Eliquis) 2.5 mg BID PO Last administered on 08/03/16 19:58; Admin Dose 2.5 MG; Start 07/18/16 at 21:00; Status Future Hold Aspirin (Halfprin) 81 mg DAILY PO Last administered on 08/05/16 09:06; Admin Dose 81 MG; Start 07/19/16 at 09:00; Status Future Hold Nitroglycerin (Nitroglycerin (Sl Tab) 0.4 Mg) 1 tab DAILY PRN SL CHEST PAIN; Start 07/18/16 at 15:30 Sucralfate (Carafate) 1 gm QID PO Last administered on 08/05/16 20:27; Admin Dose 1 GM; Start 07/18/16 at 17:00 Pantoprazole (Protonix Tab) 40 mg DAILY@06 PO Last administered on 08/05/16 06: 39; Admin Dose 40 MG; Start 07/19/16 at 06:00 Ondansetron HCl (Zofran Inj) 4 mg Q6H PRN IV NAUSEA AND/OR VOMITING Last administered on 08/05/16 23:48; Admin Dose 4 MG; Start 07/18/16 at 15:30 Acetaminophen (Tylenol Tab) 650 mg Q6H PRN PO PAIN LEVEL 1-3 OR FEVER Last administered on 08/02/16 15:25; Admin Dose 650 MG; Start 07/18/16 at 15:30 Acetaminophen (Tylenol Supp) 650 mg Q6H PRN [place] PAIN LEVEL 1-3 OR FEVER; Start 07/18/16 at 15:30 Docusate Sodium (Colace) 100 mg Q12H PRN PO CONSTIPATION Last administered on 20:19; Admin Dose 100 MG; Start 07/18/16 at 15:30 Magnesium Hydroxide (Milk Of Mag) 30 ml DAILY PRN PO CONSTIPATION Last administered on 07/28/16 23:03; Admin Dose 30 ML; Start 07/18/16 at 15:30 Bisacodyl (Dulcolax Supp) 10 mg DAILY PRN [place] CONSTIPATION; Start 07/18/16 at 15 :30 Miscellaneous Information 1 ea NOTE XX ; Start 07/18/16 at 17:30 Glucose (Glutose) 15 gm Q15M PRN PO DECREASED GLUCOSE; Start 07/18/16 at 17:30 Glucose (Glutose) 22.5 gm Q15M PRN PO DECREASED GLUCOSE; Start 07/18/16 at 17: 30 Dextrose (D50w Syringe) 25 ml Q15M PRN IV DECREASED GLUCOSE; Start 07/18/16 at 17:30 Dextrose (D50w Syringe) 50 ml Q15M PRN IV DECREASED GLUCOSE; Start 07/18/16 at 17:30 Glucagon (Glucagen) 1 mg Q15M PRN IM DECREASED GLUCOSE; Start 07/18/16 at 17:30 Glucose (Glutose) 15 gm Q15M PRN BUCCAL DECREASED GLUCOSE; Start 07/18/16 at 17 :30 Guaifenesin/ Codeine Phosphate (Robitussin Ac Liquid Cup) 10 ml Q4H PRN PO COUGH Last administered on 07/19/16 19:43; Admin Dose 10 ML; Start 07/18/16 at 23:30 Amiodarone HCl (Cordarone) 200 mg DAILY PO Last administered on 08/02/16 09:47 ; Admin Dose 200 MG; Start 07/20/16 at 09:00 Carvedilol (Coreg) 3.125 mg BID PO Last administered on 08/03/16 20:05; Admin Dose 3.125 MG; Start 07/24/16 at 09:00 Hydralazine HCl (Apresoline) 10 mg Q8 PO Last administered on 08/03/16 20:30; Admin Dose 10 MG; Start 07/29/16 at 14:00 Isosorbide Dinitrate (Isordil) 10 mg TID PO Last administered on 08/03/16 19:58 ; Admin Dose 10 MG; Start 07/30/16 at 21:00 Metolazone (Zaroxolyn) 2.5 mg DAILY PO Last administered on 08/02/16 09:43; Admin Dose 2.5 MG; Start 07/31/16 at 09:00 Furosemide 40 mg 40 mg DAILY PO ; Start 08/06/16 at 09:00 Sodium Chloride 1,000 ml @ 50 mls/hr Q20H IV Last administered on 08/06/16 00: 23; Admin Dose 50 MLS/HR; Start 08/06/16 at 00:30 Norepinephrine 16 mg/Dextrose 500 ml @ 1.87 mls/hr TITRATE IV ; Start 08/06/16 at 07:00 Propofol 100 ml @ 2.055 mls/ hr Q12H IV Last administered on 08/06/16 04:19; Admin Dose 2.055 MLS/HR; Start 08/06/16 at 03:30 Vasopressin/ Dextrose (Vasostrict/D5W) 60 ml @ 1.2 mls/hr Q12H IV Last administered on 08/06/16 04:06; Admin Dose 1.2 MLS/HR; Start 08/06/16 at 03:30 ADAMARIS RAMIREZ Aug 06, 2016 10:41
--- NOTE | 2016-08-06 12:02 | CONS ---
Date/Time of Note Date/Time of Note DATE: 08/06/16 TIME: 11:55 Assessment/Plan Assessment/Plan Chief Complaint/Hosp Course IMPRESSION: 1. Congestive heart failure exacerbation, systolic, acute on chronic.-negative troponin x 3. EF 25% by most recent echo-worsening. 2. Resp failure s/p intubation 3. Hypotension/shock-on levo and vasopressin 3. History of coronary artery bypass graft surgery. Assess for acute coronary syndrome.-negative troponin x 3 since admit 4. Abnormal electrocardiogram . Assess for acute coronary syndrome.-negative troponin x3 5. History of paroxysmal atrial fibrillation-apixaban held due to coagulopathy 6. Acute on chronic renal failure-Now on HD 7. Hypertension,currently uncontrolled 8. Anemia, mild. 9. Coagulopathy secondary to apixaban. 10.Hematuria Rec: -tele -Continue amiodarone for now -Hold coreg, hydralazine, isordil while on pressors -Continue HD for volume removal with plans to be continued long termy -Apixaban and asa held given coagulopathy -Wean pressors beginning with vasopressin Problems: Consultation Date/Type/Reason Admit Date/Time Jul 18, 2016 at 14:06 Initial Consult Date 07/19/2016 Type of Consultation: Cardiology Reason for Consultation Hypotension Referring Provider: MURIEL EWING Exam/Review of Systems Vital Signs Vitals Vital Signs Date Time Temp Pulse Resp B/P Pulse Ox O2 Delivery O2 Flow Rate FiO2 08/06/16 10:48 67 14 100 50 08/06/16 09:45 144/50 08/06/16 08:00 Nasal Cannula 4.0 08/06/16 07:00 98.8 Intake and Output 08/05/16 08/05/16 08/06/16 15:00 23:00 07:00 Intake Total 600 ml 150 ml 1292 ml Output Total 1900 ml 100 ml 215 ml Balance -1300 ml 50 ml 1077 ml Exam Review of Systems: CONSTITUTIONAL: No fevers, chills. PULMONARY: intubated CARDIOVASCULAR: No chest pain/palpitations GASTROINTESTINAL: No nausea/vomiting. GENITOURINARY: No hematuria/dysuria. MUSCULOSKELETAL: No myagias/arthalgias. PSYCHIATRIC: The patient denies depression. NEUROLOGIC: encephalopathic Constitutional: other (sedated) Psych: no complaints Head: normocephalic ENMT: intubated, mucosa pink and moist Neck: jvd (9 cm water), supple Respiratory: diminished breath sounds Cardiovascular: regular rate and rhythm Gastrointestinal: non-tender, soft Musculoskeletal: muscle tone (normal) Extremities: edema (trace/B) Neurological: other (sedated) Results Result Diagram: 08/06/16 0330 08/06/16 0330 Results 24 hrs Laboratory Tests Test 08/06/16 03:19 08/06/16 03:30 08/06/16 07:10 Arterial Blood HCO3 19.1 L Arterial Blood Base Excess -8.1 L Arterial Blood Oxygen Saturation 99.4 Sebastien Test N/A Arterial Blood Gas Puncture Site Right Brachial Arterial Blood Carboxyhemoglobin 0.6 Arterial Blood Date Drawn 08/06/2016 5:00:00 AM Arterial Blood Methemoglobin 0.5 Arterial Blood pCO2 (Temp correct) 45.3 H Arterial Blood pH (Temp corrected) 7.242 *L Arterial Blood pO2 (Temp corrected) 217.0 H Blood Gas A-a O2 Differential 450.7 H Blood Gas Actual Respiration Rate 19 Blood Gas Critical Value Read Back SMOOTH OLIVIER Blood Gas Low PEEP Setting 5.0 Blood Gas Modality VENT - AC Blood Gas Notified Time 08/06/2016 5:15:00 AM Blood Gas Notified Whom MA Blood Gas Respiration Rate 14.0 Blood Gas Specimen Source Blood arterial Blood Gas Temperature 37.0 Blood Gas Tidal Volume 500.0 FiO2 100.0 Oxyhemoglobin Percent 98.3 Total Hemoglobin 13.3 Alanine Aminotransferase (ALT/SGPT) 46 Albumin 2.4 L Albumin/Globulin Ratio 0.92 Alkaline Phosphatase 134 H Anion Gap 20 H Aspartate Amino Transf (AST/SGOT) 71 H Basophils # 0.0 Basophils % 0.1 Blood Urea Nitrogen 64 H Calcium Level 8.2 L Carbon Dioxide Level 22 Chloride Level 101 Creatinine 2.66 H Direct Bilirubin 0.80 H Eosinophils # 0.0 Eosinophils % 0.3 Globulin 2.60 Glucose Level 127 # Hematocrit 40.1 L Hemoglobin 11.5 L INR International Normalized Ratio 8.30 *H 9.45 *H Indirect Bilirubin 0.6 Lymphocytes # 0.2 L Lymphocytes % 2.2 L Mean Corpuscular Hemoglobin 25.2 L Mean Corpuscular Hemoglobin Concent 28.7 L Mean Corpuscular Volume 87.7 Mean Platelet Volume 10.3 Monocytes # 0.3 Monocytes % 3.3 Neutrophils # 9.5 H Neutrophils % 92.8 H Nucleated Red Blood Cells # 0.7 H Nucleated Red Blood Cells % 6.6 H Platelet Count 191 Potassium Level 4.0 Prothrombin Time 70.8 #H 78.5 H Prothrombin Time Ratio 5.5 6.1 Red Blood Count 4.57 L Red Cell Distribution Width 22.2 H Sodium Level 139 Total Bilirubin 1.4 H Total Protein 5.0 L White Blood Count 10.2 # Medications Medications Current Medications Apixaban (Eliquis) 2.5 mg BID PO Last administered on 08/03/16 19:58; Admin Dose 2.5 MG; Start 07/18/16 at 21:00; Status Future Hold Aspirin (Halfprin) 81 mg DAILY PO Last administered on 08/05/16 09:06; Admin Dose 81 MG; Start 07/19/16 at 09:00; Status Future Hold Nitroglycerin (Nitroglycerin (Sl Tab) 0.4 Mg) 1 tab DAILY PRN SL CHEST PAIN; Start 07/18/16 at 15:30 Sucralfate (Carafate) 1 gm QID PO Last administered on 08/05/16 20:27; Admin Dose 1 GM; Start 07/18/16 at 17:00 Pantoprazole (Protonix Tab) 40 mg DAILY@06 PO Last administered on 08/05/16 06: 39; Admin Dose 40 MG; Start 07/19/16 at 06:00 Ondansetron HCl (Zofran Inj) 4 mg Q6H PRN IV NAUSEA AND/OR VOMITING Last administered on 08/05/16 23:48; Admin Dose 4 MG; Start 07/18/16 at 15:30 Acetaminophen (Tylenol Tab) 650 mg Q6H PRN PO PAIN LEVEL 1-3 OR FEVER Last administered on 08/02/16 15:25; Admin Dose 650 MG; Start 07/18/16 at 15:30 Acetaminophen (Tylenol Supp) 650 mg Q6H PRN [place] PAIN LEVEL 1-3 OR FEVER; Start 07/18/16 at 15:30 Docusate Sodium (Colace) 100 mg Q12H PRN PO CONSTIPATION Last administered on 20:19; Admin Dose 100 MG; Start 07/18/16 at 15:30 Magnesium Hydroxide (Milk Of Mag) 30 ml DAILY PRN PO CONSTIPATION Last administered on 07/28/16 23:03; Admin Dose 30 ML; Start 07/18/16 at 15:30 Bisacodyl (Dulcolax Supp) 10 mg DAILY PRN [place] CONSTIPATION; Start 07/18/16 at 15 :30 Miscellaneous Information 1 ea NOTE XX ; Start 07/18/16 at 17:30 Glucose (Glutose) 15 gm Q15M PRN PO DECREASED GLUCOSE; Start 07/18/16 at 17:30 Glucose (Glutose) 22.5 gm Q15M PRN PO DECREASED GLUCOSE; Start 07/18/16 at 17: 30 Dextrose (D50w Syringe) 25 ml Q15M PRN IV DECREASED GLUCOSE; Start 07/18/16 at 17:30 Dextrose (D50w Syringe) 50 ml Q15M PRN IV DECREASED GLUCOSE; Start 07/18/16 at 17:30 Glucagon (Glucagen) 1 mg Q15M PRN IM DECREASED GLUCOSE; Start 07/18/16 at 17:30 Glucose (Glutose) 15 gm Q15M PRN BUCCAL DECREASED GLUCOSE; Start 07/18/16 at 17 :30 Guaifenesin/ Codeine Phosphate (Robitussin Ac Liquid Cup) 10 ml Q4H PRN PO COUGH Last administered on 07/19/16 19:43; Admin Dose 10 ML; Start 07/18/16 at 23:30 Amiodarone HCl (Cordarone) 200 mg DAILY PO Last administered on 08/02/16 09:47 ; Admin Dose 200 MG; Start 07/20/16 at 09:00 Carvedilol (Coreg) 3.125 mg BID PO Last administered on 08/03/16 20:05; Admin Dose 3.125 MG; Start 07/24/16 at 09:00 Hydralazine HCl (Apresoline) 10 mg Q8 PO Last administered on 08/03/16 20:30; Admin Dose 10 MG; Start 07/29/16 at 14:00 Isosorbide Dinitrate (Isordil) 10 mg TID PO Last administered on 08/03/16 19:58 ; Admin Dose 10 MG; Start 07/30/16 at 21:00 Metolazone (Zaroxolyn) 2.5 mg DAILY PO Last administered on 08/02/16 09:43; Admin Dose 2.5 MG; Start 07/31/16 at 09:00 Furosemide 40 mg 40 mg DAILY PO ; Start 08/06/16 at 09:00 Sodium Chloride 1,000 ml @ 50 mls/hr Q20H IV Last administered on 08/06/16 00: 23; Admin Dose 50 MLS/HR; Start 08/06/16 at 00:30 Norepinephrine 16 mg/Dextrose 500 ml @ 1.87 mls/hr TITRATE IV Last administered on 08/06/16 11:40; Admin Dose 56.25 MLS/HR; Start 08/06/16 at 07:00 Propofol 100 ml @ 2.055 mls/ hr Q12H IV Last administered on 08/06/16 04:19; Admin Dose 2.055 MLS/HR; Start 08/06/16 at 03:30 Vasopressin/ Dextrose (Vasostrict/D5W) 60 ml @ 1.2 mls/hr Q12H IV Last administered on 08/06/16 04:06; Admin Dose 1.2 MLS/HR; Start 08/06/16 at 03:30 POLI SAN Aug 06, 2016 12:02
[2016-08-06] MEDS: PHYTONADIONE 10 MG/ML INJ IM SCH (15:30)
--- NOTE | 2016-08-06 17:03 | CONS ---
Date/Time of Note Date/Time of Note DATE: 08/06/16 TIME: 17:02 Assessment/Plan Assessment/Plan Chief Complaint/Hosp Course 1. Patient has acute on chronic renal failure with acute kidney injury due to systolic heart failure.ON HD 2. The patient has LOW EF now on vent 3. Anemia. 4. ASHD 5. Acute urinary tract infection.BETTER 6 LOW EF 7 hyperkalemia HX 8 afib 9 hematuria 10 vdrf PLAN CONTINUE per pulmonary HD Problems: Consultation Date/Type/Reason Admit Date/Time Jul 18, 2016 at 14:06 Type of Consultation: renal Referring Provider: MURIEL EWING 24 HR Interval Summary Constitutional: other (on vent) Exam/Review of Systems Vital Signs Vitals Vital Signs Date Time Temp Pulse Resp B/P Pulse Ox O2 Delivery O2 Flow Rate FiO2 08/06/16 15:11 72 14 100 50 08/06/16 12:00 98.0 151/56 08/06/16 08:00 Nasal Cannula 4.0 Intake and Output 08/05/16 08/05/16 08/06/16 15:00 23:00 07:00 Intake Total 600 ml 150 ml 1292 ml Output Total 1900 ml 100 ml 215 ml Balance -1300 ml 50 ml 1077 ml Exam Respiratory: diminished breath sounds Cardiovascular: regular rate and rhythm Gastrointestinal: bowel sounds (+), soft Extremities: edema (+) Results Result Diagram: 08/06/16 0330 08/06/16 0330 Results 24 hrs Laboratory Tests Test 08/06/16 03:19 08/06/16 03:30 08/06/16 07:10 Arterial Blood HCO3 19.1 L Arterial Blood Base Excess -8.1 L Arterial Blood Oxygen Saturation 99.4 Sebastien Test N/A Arterial Blood Gas Puncture Site Right Brachial Arterial Blood Carboxyhemoglobin 0.6 Arterial Blood Date Drawn 08/06/2016 5:00:00 AM Arterial Blood Methemoglobin 0.5 Arterial Blood pCO2 (Temp correct) 45.3 H Arterial Blood pH (Temp corrected) 7.242 *L Arterial Blood pO2 (Temp corrected) 217.0 H Blood Gas A-a O2 Differential 450.7 H Blood Gas Actual Respiration Rate 19 Blood Gas Critical Value Read Back SMOOTH OLIVIER Blood Gas Low PEEP Setting 5.0 Blood Gas Modality VENT - AC Blood Gas Notified Time 08/06/2016 5:15:00 AM Blood Gas Notified Whom ATA Blood Gas Respiration Rate 14.0 Blood Gas Specimen Source Blood arterial Blood Gas Temperature 37.0 Blood Gas Tidal Volume 500.0 FiO2 100.0 Oxyhemoglobin Percent 98.3 Total Hemoglobin 13.3 Alanine Aminotransferase (ALT/SGPT) 46 Albumin 2.4 L Albumin/Globulin Ratio 0.92 Alkaline Phosphatase 134 H Anion Gap 20 H Aspartate Amino Transf (AST/SGOT) 71 H Basophils # 0.0 Basophils % 0.1 Blood Urea Nitrogen 64 H Calcium Level 8.2 L Carbon Dioxide Level 22 Chloride Level 101 Creatinine 2.66 H Direct Bilirubin 0.80 H Eosinophils # 0.0 Eosinophils % 0.3 Globulin 2.60 Glucose Level 127 # Hematocrit 40.1 L Hemoglobin 11.5 L INR International Normalized Ratio 8.30 *H 9.45 *H Indirect Bilirubin 0.6 Lymphocytes # 0.2 L Lymphocytes % 2.2 L Mean Corpuscular Hemoglobin 25.2 L Mean Corpuscular Hemoglobin Concent 28.7 L Mean Corpuscular Volume 87.7 Mean Platelet Volume 10.3 Monocytes # 0.3 Monocytes % 3.3 Neutrophils # 9.5 H Neutrophils % 92.8 H Nucleated Red Blood Cells # 0.7 H Nucleated Red Blood Cells % 6.6 H Platelet Count 191 Potassium Level 4.0 Prothrombin Time 70.8 #H 78.5 H Prothrombin Time Ratio 5.5 6.1 Red Blood Count 4.57 L Red Cell Distribution Width 22.2 H Sodium Level 139 Total Bilirubin 1.4 H Total Protein 5.0 L White Blood Count 10.2 # Medications Medications Current Medications Apixaban (Eliquis) 2.5 mg BID PO Last administered on 08/03/16 19:58; Admin Dose 2.5 MG; Start 07/18/16 at 21:00; Status Future Hold Aspirin (Halfprin) 81 mg DAILY PO Last administered on 08/05/16 09:06; Admin Dose 81 MG; Start 07/19/16 at 09:00; Status Future Hold Nitroglycerin (Nitroglycerin (Sl Tab) 0.4 Mg) 1 tab DAILY PRN SL CHEST PAIN; Start 07/18/16 at 15:30 Sucralfate (Carafate) 1 gm QID PO Last administered on 08/05/16 20:27; Admin Dose 1 GM; Start 07/18/16 at 17:00 Pantoprazole (Protonix Tab) 40 mg DAILY@06 PO Last administered on 08/05/16 06: 39; Admin Dose 40 MG; Start 07/19/16 at 06:00 Ondansetron HCl (Zofran Inj) 4 mg Q6H PRN IV NAUSEA AND/OR VOMITING Last administered on 08/05/16 23:48; Admin Dose 4 MG; Start 07/18/16 at 15:30 Acetaminophen (Tylenol Tab) 650 mg Q6H PRN PO PAIN LEVEL 1-3 OR FEVER Last administered on 08/02/16 15:25; Admin Dose 650 MG; Start 07/18/16 at 15:30 Acetaminophen (Tylenol Supp) [address] PAIN LEVEL 1-3 OR FEVER; Start 07/18/16 at 15:30 Docusate Sodium (Colace) 100 mg Q12H PRN PO CONSTIPATION Last administered on 20:19; Admin Dose 100 MG; Start 07/18/16 at 15:30 Magnesium Hydroxide (Milk Of Mag) 30 ml DAILY PRN PO CONSTIPATION Last administered on 07/28/16 23:03; Admin Dose 30 ML; Start 07/18/16 at 15:30 Bisacodyl (Dulcolax Supp) [address] CONSTIPATION; Start 07/18/16 at 15 :30 Miscellaneous Information 1 ea NOTE XX ; Start 07/18/16 at 17:30 Glucose (Glutose) 15 gm Q15M PRN PO DECREASED GLUCOSE; Start 07/18/16 at 17:30 Glucose (Glutose) 22.5 gm Q15M PRN PO DECREASED GLUCOSE; Start 07/18/16 at 17: 30 Dextrose (D50w Syringe) 25 ml Q15M PRN IV DECREASED GLUCOSE; Start 07/18/16 at 17:30 Dextrose (D50w Syringe) 50 ml Q15M PRN IV DECREASED GLUCOSE; Start 07/18/16 at 17:30 Glucagon (Glucagen) 1 mg Q15M PRN IM DECREASED GLUCOSE; Start 07/18/16 at 17:30 Glucose (Glutose) 15 gm Q15M PRN BUCCAL DECREASED GLUCOSE; Start 07/18/16 at 17 :30 Guaifenesin/ Codeine Phosphate (Robitussin Ac Liquid Cup) 10 ml Q4H PRN PO COUGH Last administered on 07/19/16 19:43; Admin Dose 10 ML; Start 07/18/16 at 23:30 Amiodarone HCl (Cordarone) 200 mg DAILY PO Last administered on 08/02/16 09:47 ; Admin Dose 200 MG; Start 07/20/16 at 09:00 Carvedilol (Coreg) 3.125 mg BID PO Last administered on 08/03/16 20:05; Admin Dose 3.125 MG; Start 07/24/16 at 09:00; Status Future Hold Isosorbide Dinitrate (Isordil) 10 mg TID PO Last administered on 08/03/16 19:58 ; Admin Dose 10 MG; Start 07/30/16 at 21:00; Status Future Hold Metolazone (Zaroxolyn) 2.5 mg DAILY PO Last administered on 08/02/16 09:43; Admin Dose 2.5 MG; Start 07/31/16 at 09:00 Furosemide 40 mg 40 mg DAILY PO ; Start 08/06/16 at 09:00 Sodium Chloride 1,000 ml @ 50 mls/hr Q20H IV Last administered on 08/06/16 00: 23; Admin Dose 50 MLS/HR; Start 08/06/16 at 00:30 Norepinephrine 16 mg/Dextrose 500 ml @ 1.87 mls/hr TITRATE IV Last administered on 08/06/16 11:40; Admin Dose 56.25 MLS/HR; Start 08/06/16 at 07:00 Propofol 100 ml @ 2.055 mls/ hr Q12H IV Last administered on 08/06/16 04:19; Admin Dose 2.055 MLS/HR; Start 08/06/16 at 03:30 Vasopressin/ Dextrose (Vasostrict/D5W) 60 ml @ 1.2 mls/hr Q12H IV Last administered on 08/06/16 04:06; Admin Dose 1.2 MLS/HR; Start 08/06/16 at 03:30 Phytonadione (Vitamin K) 10 mg DAILY IM ; Start 08/06/16 at 14:30; Stop 08/08/16 at 14:29 YANIRA HART MD Aug 06, 2016 17:03
[2016-08-06 19:54] LABS: CK-MB 1.63 ng/ml (0.0-2.4); TROPONIN-I 0.226 ng/ml (0.00-0.12)
--- NOTE | 2016-08-06 21:15 | PN ---
Date/Time of Note Date/Time of Note DATE: 08/06/16 TIME: 21:10 Assessment/Plan VTE Prophylaxis VTE Prophylaxis Intervention: heparin Lines/Catheters IV Catheter Type (from Nrs): Peripheral IV Urinary Cath still in place: No Assessment/Plan Assessment/Plan 1. Acute on chronic congestive heart failure on Lasix 2. 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 Type 2 diabetes. 4. Atrial fibrillation, rate controlled 5. History of CAD status post CABG 6. Acute on likely chronic kidney disease 2/2 cardiorenal syndorme- did not improve, s/p Fidel catheter placement on 08/01/16- Started on HD by anchorman Dr.Balbir Lamar- plan for permacath today Plan: Pulmonary has been following- pt is intubated for acute pulmonary edema, BP stable HD per nephrology continue ventilator care Subjective 24 Hr Interval Summary Free Text/Dictation Yesterday pt was hypotensive hypoxemic her to be transferred to ICU and was intubated by the ER physician. By the time I saw him the patient is orally intubated and sedated. History was obtained from medical records as well as from the patient's son who is present in the room. Exam/Review of Systems Vital Signs Vitals Vital Signs Date Time Temp Pulse Resp B/P Pulse Ox O2 Delivery O2 Flow Rate FiO2 08/06/16 18:45 73 14 143/46 100 08/06/16 17:17 50 08/06/16 16:00 97.6 08/06/16 08:00 08/06/16 01:54 3.0 Intake and Output 08/05/16 08/05/16 08/06/16 15:00 23:00 07:00 Intake Total 600 ml 150 ml 1292 ml Output Total 1900 ml 100 ml 215 ml Balance -1300 ml 50 ml 1077 ml Exam HEENT exam; supple neck, positive JVD. Orally intubated. No neck masses. No thyromegaly. No lymphadenopathy. patient is edentulous. Pupils are small bilaterally. Chest examination; diminished breath sound throughout. S1-S2 audible, no murmurs. Regular rhythm. There is a well-healed sternal scar. Abdomen examination; soft, nondistended. No organomegaly. Bowel sound audible. Extremity examination; no peripheral edema. 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 Results Result Diagram: 08/06/16 0330 08/06/16 0330 Results 24 hrs Laboratory Tests Test 08/06/16 03:19 08/06/16 03:30 08/06/16 07:10 08/06/16 18:20 Arterial Blood HCO3 19.1 L Arterial Blood Base Excess -8.1 L Arterial Blood Oxygen Saturation 99.4 Sebastien Test N/A Arterial Blood Gas Puncture Site Right Brachial Arterial Blood Carboxyhemoglobin 0.6 Arterial Blood Date Drawn 08/06/2016 5:00:00 AM Arterial Blood Methemoglobin 0.5 Arterial Blood pCO2 (Temp correct) 45.3 H Arterial Blood pH (Temp corrected) 7.242 *L Arterial Blood pO2 (Temp corrected) 217.0 H Blood Gas A-a O2 Differential 450.7 H Blood Gas Actual Respiration Rate 19 Blood Gas Critical Value Read Back SMOOTH RN Blood Gas Low PEEP Setting 5.0 Blood Gas Modality VENT - AC Blood Gas Notified Time 08/06/2016 5:15:00 AM Blood Gas Notified Whom MA Blood Gas Respiration Rate 14.0 Blood Gas Specimen Source Blood arterial Blood Gas Temperature 37.0 Blood Gas Tidal Volume 500.0 FiO2 100.0 Oxyhemoglobin Percent 98.3 Total Hemoglobin 13.3 Alanine Aminotransferase (ALT/SGPT) 46 Albumin 2.4 L Albumin/Globulin Ratio 0.92 Alkaline Phosphatase 134 H Anion Gap 20 H Aspartate Amino Transf (AST/SGOT) 71 H Basophils # 0.0 Basophils % 0.1 Blood Urea Nitrogen 64 H Calcium Level 8.2 L Carbon Dioxide Level 22 Chloride Level 101 Creatinine 2.66 H Direct Bilirubin 0.80 H Eosinophils # 0.0 Eosinophils % 0.3 Globulin 2.60 Glucose Level 127 # Hematocrit 40.1 L Hemoglobin 11.5 L INR International Normalized Ratio 8.30 *H 9.45 *H Indirect Bilirubin 0.6 Lymphocytes # 0.2 L Lymphocytes % 2.2 L Mean Corpuscular Hemoglobin 25.2 L Mean Corpuscular Hemoglobin Concent 28.7 L Mean Corpuscular Volume 87.7 Mean Platelet Volume 10.3 Monocytes # 0.3 Monocytes % 3.3 Neutrophils # 9.5 H Neutrophils % 92.8 H Nucleated Red Blood Cells # 0.7 H Nucleated Red Blood Cells % 6.6 H Platelet Count 191 Potassium Level 4.0 Prothrombin Time 70.8 #H 78.5 H Prothrombin Time Ratio 5.5 6.1 Red Blood Count 4.57 L Red Cell Distribution Width 22.2 H Sodium Level 139 Total Bilirubin 1.4 H Total Protein 5.0 L White Blood Count 10.2 # Creatine Kinase 49 Creatine Kinase Index 3.3 Creatinine Kinase MB (Mass) 1.63 Troponin I 0.226 *H Medications Medications Current Medications Apixaban (Eliquis) 2.5 mg BID PO Last administered on 08/03/16 19:58; Admin Dose 2.5 MG; Start 07/18/16 at 21:00; Status Future Hold Aspirin (Halfprin) 81 mg DAILY PO Last administered on 08/05/16 09:06; Admin Dose 81 MG; Start 07/19/16 at 09:00; Status Future Hold Nitroglycerin (Nitroglycerin (Sl Tab) 0.4 Mg) 1 tab DAILY PRN SL CHEST PAIN; Start 07/18/16 at 15:30 Sucralfate (Carafate) 1 gm QID PO Last administered on 08/05/16 20:27; Admin Dose 1 GM; Start 07/18/16 at 17:00 Pantoprazole (Protonix Tab) 40 mg DAILY@06 PO Last administered on 08/05/16 06: 39; Admin Dose 40 MG; Start 07/19/16 at 06:00 Ondansetron HCl (Zofran Inj) 4 mg Q6H PRN IV NAUSEA AND/OR VOMITING Last administered on 08/05/16 23:48; Admin Dose 4 MG; Start 07/18/16 at 15:30 Acetaminophen (Tylenol Tab) 650 mg Q6H PRN PO PAIN LEVEL 1-3 OR FEVER Last administered on 08/02/16 15:25; Admin Dose 650 MG; Start 07/18/16 at 15:30 Acetaminophen (Tylenol Supp) 650 mg Q6H PRN [place] PAIN LEVEL 1-3 OR FEVER; Start 07/18/16 at 15:30 Docusate Sodium (Colace) 100 mg Q12H PRN PO CONSTIPATION Last administered on 20:19; Admin Dose 100 MG; Start 07/18/16 at 15:30 Magnesium Hydroxide (Milk Of Mag) 30 ml DAILY PRN PO CONSTIPATION Last administered on 07/28/16 23:03; Admin Dose 30 ML; Start 07/18/16 at 15:30 Bisacodyl (Dulcolax Supp) 10 mg DAILY PRN [place] CONSTIPATION; Start 07/18/16 at 15 :30 Miscellaneous Information 1 ea NOTE XX ; Start 07/18/16 at 17:30 Glucose (Glutose) 15 gm Q15M PRN PO DECREASED GLUCOSE; Start 07/18/16 at 17:30 Glucose (Glutose) 22.5 gm Q15M PRN PO DECREASED GLUCOSE; Start 07/18/16 at 17: 30 Dextrose (D50w Syringe) 25 ml Q15M PRN IV DECREASED GLUCOSE; Start 07/18/16 at 17:30 Dextrose (D50w Syringe) 50 ml Q15M PRN IV DECREASED GLUCOSE; Start 07/18/16 at 17:30 Glucagon (Glucagen) 1 mg Q15M PRN IM DECREASED GLUCOSE; Start 07/18/16 at 17:30 Glucose (Glutose) 15 gm Q15M PRN BUCCAL DECREASED GLUCOSE; Start 07/18/16 at 17 :30 Guaifenesin/ Codeine Phosphate (Robitussin Ac Liquid Cup) 10 ml Q4H PRN PO COUGH Last administered on 07/19/16 19:43; Admin Dose 10 ML; Start 07/18/16 at 23:30 Amiodarone HCl (Cordarone) 200 mg DAILY PO Last administered on 08/02/16 09:47 ; Admin Dose 200 MG; Start 07/20/16 at 09:00 Carvedilol (Coreg) 3.125 mg BID PO Last administered on 08/03/16 20:05; Admin Dose 3.125 MG; Start 07/24/16 at 09:00; Status Future Hold Isosorbide Dinitrate (Isordil) 10 mg TID PO Last administered on 08/03/16 19:58 ; Admin Dose 10 MG; Start 07/30/16 at 21:00; Status Future Hold Metolazone (Zaroxolyn) 2.5 mg DAILY PO Last administered on 08/02/16 09:43; Admin Dose 2.5 MG; Start 07/31/16 at 09:00 Furosemide 40 mg 40 mg DAILY PO ; Start 08/06/16 at 09:00 Sodium Chloride 1,000 ml @ 50 mls/hr Q20H IV Last administered on 08/06/16 20: 41; Admin Dose 50 MLS/HR; Start 08/06/16 at 00:30 Norepinephrine 16 mg/Dextrose 500 ml @ 1.87 mls/hr TITRATE IV Last administered on 08/06/16 11:40; Admin Dose 56.25 MLS/HR; Start 08/06/16 at 07:00 Propofol 100 ml @ 2.055 mls/ hr Q12H IV Last administered on 08/06/16 17:33; Admin Dose 2.05 MLS/HR; Start 08/06/16 at 03:30 Vasopressin/ Dextrose (Vasostrict/D5W) 60 ml @ 1.2 mls/hr Q12H IV Last administered on 08/06/16 18:37; Admin Dose 0.9 MLS/HR; Start 08/06/16 at 03:30 Phytonadione (Vitamin K) 10 mg DAILY IM Last administered on 08/06/16 15:30; Admin Dose 10 MG; Start 08/06/16 at 14:30; Stop 08/08/16 at 14:29 STEPHAN MARES MD Aug 06, 2016 21:14
[2016-08-07] VITALS (84 sets, daily range): BP systolic 71–146; BP diastolic 31–61; PULSE 60–81; RESP 14–21
[2016-08-07] MEDS: PROPOFOL 100 ML IV SCH ×3 (03:30→17:52)
[2016-08-07] MEDS: VASOPRESSIN 60 UNIT in DEXTROSE 5% 57 ML IV SCH ×2 (03:30→15:30)
[2016-08-07 04:47] LABS: AADO2 Arterial 93.5 mmHg (7.0-24.0); Arterial Base Excess -1.6 mmol/L (-3.0-3); Arterial COHb 0.7 % (0.0-3.0); Arterial Fraction of Oxyhgb 94.2 % (93.0-99.0); Arterial HCO3 22.5 mmol/L (22.0-26.0); Arterial MetHb 0.4 % (0.0-1.5); Arterial Total Hemglobin 12.9 g/dl (12.0-18.0); MODE VENT-AC
[2016-08-07] MEDS: PANTOPRAZOLE (EC) 40 MG TAB PO SCH (06:00)
[2016-08-07 06:51] LABS: ADD SCAN DIFF NO
[2016-08-07 06:56] LABS: ABNORMAL IP MESSAGE 1; BASOPHILS % 0.1 % (0.0-2.0); HEMATOCRIT 39.4 % (42.0-52.0); LYMPHOCYTES # 0.1 10^3/ul (0.8-2.9); LYMPHOCYTES % 0.5 % (15.0-51.0); MEAN CORPUSCULAR HEMOGLOBIN 25.2 pg (29.0-33.0); MEAN CORPUSCULAR HGB CONC 30.5 g/dl (32.0-37.0); MEAN CORPUSCULAR VOLUME 82.6 fl (82.0-101.0); MEAN PLATELET VOLUME 10.3 fl (7.4-10.4); MONOCYTE # 0.3 10^3/ul (0.3-0.9); MONOCYTES % 2.7 % (0.0-11.0); NEUTROPHIL # 9.2 10^3/ul (1.6-7.5); NEUTROPHILS % 96.2 % (39.0-77.0); NUCLEATED RED BLOOD CELLS # 0.7 10^3/ul (0.0-0.0); NUCLEATED RED BLOOD CELLS% 7.2 /100WBC (0.0-0.0); PLATELET COUNT 196 10^3/UL (140-415); RED BLOOD COUNT 4.77 10^6/ul (4.70-6.10); RED CELL DISTRIBUTION WIDTH 22.5 % (11.5-14.5); WHITE BLOOD COUNT 9.6 10^3/ul (4.8-10.8)
[2016-08-07 07:11] LABS: ALBUMIN 2.6 g/dl (3.3-4.9); INR 3.27; PROTIME 33.8 Sec (12.2-14.2); PT RATIO 2.6
[2016-08-07 07:12] LABS: PARTIAL THROMBOPLASTIN TIME 66.7 Sec (25.0-35.0); POTASSIUM 3.8 mmol/L (3.5-5.1)
[2016-08-07 07:13] LABS: CREATININE 2.54 mg/dl (0.61-1.24)
[2016-08-07 07:14] LABS: BILIRUBIN,DIRECT 0.4 mg/dl (0.00-0.20); BILIRUBIN,INDIRECT 0.8 mg/dl (0-1.1); BILIRUBIN,TOTAL 1.2 mg/dl (0.2-1.3); CALCIUM 8.4 mg/dl (8.4-10.2); TOTAL PROTEIN 5.2 g/dl (6.1-8.1)
[2016-08-07 07:24] LABS: CK-MB 0.82 ng/ml (0.0-2.4)
[2016-08-07 07:27] LABS: TROPONIN-I 0.265 ng/ml (0.00-0.12)
[2016-08-07] MEDS: SUCRALFATE 1 GM TAB PO SCH ×5 (08:03→21:14)
[2016-08-07] MEDS: AMIODARONE 200 MG TAB PO SCH (08:03)
[2016-08-07] MEDS: FUROSEMIDE 40 MG TAB PO SCH (08:03)
[2016-08-07] MEDS: METOLAZONE 2.5 MG TAB PO SCH (08:04)
[2016-08-07] MEDS: PHYTONADIONE 10 MG/ML INJ IM SCH (08:15)
[2016-08-07] MEDS: FUROSEMIDE 40 MG INJ IV SCH (10:00)
--- NOTE | 2016-08-07 10:14 | RADRPT ---
PROCEDURE: XR Chest. CLINICAL INDICATION: CHF TECHNIQUE: An AP view of the chest was obtained. COMPARISON: Chest x-ray dated 08/06/2016 FINDINGS: The endotracheal tube tip is approximately 5.8 cm above the travis. There is a left subclavian si ngle lead AICD. There is prominence of the interstitial and central pulmonary vascular markings with small bilatera l pleural effusions. No focal airspace opacification or pneumothorax is seen. The cardiomediastin al silhouette is moderately enlarged. Calcifications are seen within the aortic arch. There are post cardiac surgery changes with sternotomy wires. The osseous structures demonstrate senescent changes . IMPRESSION: 1. Findings suggestive of interstitial edema with small bilateral pleural effusions. Lung aeration is significantly improved when compared to the prior examination. 2. Moderate cardiomegaly and aortic atherosclerosis. 3. Tubes and lines, as described above. RPTAT: HH .Nica Sweet MD, MD Date Time Electronically viewed and signed by .Nica Sweet MD, on 08/07/2016 10:14 .G/
--- NOTE | 2016-08-07 10:44 | CONS ---
Date/Time of Note Date/Time of Note DATE: 08/07/16 TIME: 10:40 Assessment/Plan Assessment/Plan Additional Assessment/Plan Ventilator settings; AC of 14, tidal volume 500, PEEP of 5, 30% FiO2. Chest x-ray was reviewed from today which is showing marked improvement in pulmonary edema. Currently no evidence of any pneumonia. Assessment recommendations; 1. Patient admitted for respiratory failure with severe congestive heart failure with marked radiological improvement today. 2. Acute renal failure, on hemodialysis. 3. History of prior coronary artery bypass surgery with underlying cardiomyopathy. 4. History of diabetes. 5. Hypotension, currently on low-dose Levophed drip. Patient also on propofol for sedation. Possibly causing some element of hypotension. Stop sedation after hemodialysis. Once the patient is off hemodialysis and off sedative effect, he will be evaluated for weaning from ventilator. Prognosis remains guarded a control for sputum to be severe underlying cardia myopathy. Consultation Date/Type/Reason Admit Date/Time Jul 18, 2016 at 14:06 Initial Consult Date 08/06/16 Type of Consultation: Pulmonary/critical care Referring Provider: MURIEL EWING 24 HR Interval Summary Free Text/Dictation Patient condition remains critical. Still requiring full ventilator support. Currently getting hemodialysis at bedside. Patient has remained hemodynamically stable although requiring low-dose Levophed drip. General exam; elderly male, orally intubated, sedated. Currently in no distress. Exam/Review of Systems Vital Signs Vitals Vital Signs Date Time Temp Pulse Resp B/P Pulse Ox O2 Delivery O2 Flow Rate FiO2 08/07/16 10:30 62 08/07/16 05:15 14 100 30 08/07/16 04:00 99.3 112/44 08/06/16 20:00 Mechanical Ventilator 08/06/16 01:54 3.0 Intake and Output 08/06/16 08/06/16 08/07/16 15:00 23:00 07:00 Intake Total 970.84 ml 981.02 ml 750 ml Output Total 35 ml 165 ml 125 ml Balance 935.84 ml 816.02 ml 625 ml Exam HEENT examination; supple neck, positive JVD. No lymphadenopathy. Orally intubated. Pupils are small bilaterally. Dentition is fair. No neck masses. No thyromegaly. Chest examination; diminished but clear breath sounds bilaterally. There is a well-healed sternal scar. S1-S2 audible, no murmurs. Regular rhythm. Abdomen examination; soft, nondistended. No organomegaly. Bowel sounds audible. Extremity examination; no peripheral edema. Pulses 1+ bilaterally. 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 Results Result Diagram: 08/07/1630 08/07/16 0530 Results 24 hrs Laboratory Tests Test 08/06/16 18:20 08/07/16 05:00 08/07/16 05:30 Creatine Kinase 49 33 Creatine Kinase Index 3.3 2.5 Creatinine Kinase MB (Mass) 1.63 0.82 Troponin I 0.226 *H 0.265 *H Arterial Blood HCO3 22.5 Arterial Blood Base Excess -1.6 Arterial Blood Oxygen Saturation 95.2 Sebastien Test N/A Arterial Blood Gas Puncture Site Right Brachial Arterial Blood Carboxyhemoglobin 0.7 Arterial Blood Date Drawn 08/07/2016 4:35:44 AM Arterial Blood Methemoglobin 0.4 Arterial Blood pCO2 (Temp correct) 35.9 Arterial Blood pH (Temp corrected) 7.415 Arterial Blood pO2 (Temp corrected) 78.2 L Blood Gas A-a O2 Differential 93.5 H Blood Gas Actual Respiration Rate 14 Blood Gas Inspiratory Pressure 27.0 Blood Gas Low PEEP Setting 5.0 Blood Gas Modality VENT-AC Blood Gas Notified Time 08/07/2016 4:47:42 AM Blood Gas Notified Whom JMD Blood Gas Respiration Rate 14.0 Blood Gas Specimen Source Blood arterial Blood Gas Temperature 37.0 Blood Gas Tidal Volume 500.0 FiO2 30.0 Oxyhemoglobin Percent 94.2 Total Hemoglobin 12.9 Activated Partial Thromboplast Time 66.7 H Alanine Aminotransferase (ALT/SGPT) 45 Albumin 2.6 L Albumin/Globulin Ratio 1.00 Alkaline Phosphatase 119 Anion Gap 17 H Aspartate Amino Transf (AST/SGOT) 46 Basophils # 0.0 Basophils % 0.1 Blood Urea Nitrogen 79 H Calcium Level 8.4 Carbon Dioxide Level 25 Chloride Level 101 Creatinine 2.54 H Direct Bilirubin 0.40 #H Eosinophils # 0.0 Eosinophils % 0.0 Globulin 2.60 Glucose Level 101 Hematocrit 39.4 L Hemoglobin 12.0 L INR International Normalized Ratio 3.27 Indirect Bilirubin 0.8 Lymphocytes # 0.1 L Lymphocytes % 0.5 L Mean Corpuscular Hemoglobin 25.2 L Mean Corpuscular Hemoglobin Concent 30.5 L Mean Corpuscular Volume 82.6 Mean Platelet Volume 10.3 Monocytes # 0.3 Monocytes % 2.7 Neutrophils # 9.2 H Neutrophils % 96.2 H Nucleated Red Blood Cells # 0.7 H Nucleated Red Blood Cells % 7.2 H Platelet Count 196 Potassium Level 3.8 Prothrombin Time 33.8 #H Prothrombin Time Ratio 2.6 Red Blood Count 4.77 Red Cell Distribution Width 22.5 H Sodium Level 139 Total Bilirubin 1.2 Total Protein 5.2 L White Blood Count 9.6 Medications Medications Current Medications Apixaban (Eliquis) 2.5 mg BID PO Last administered on 08/03/16 19:58; Admin Dose 2.5 MG; Start 07/18/16 at 21:00; Status Future Hold Aspirin (Halfprin) 81 mg DAILY PO Last administered on 08/05/16 09:06; Admin Dose 81 MG; Start 07/19/16 at 09:00; Status Future Hold Nitroglycerin (Nitroglycerin (Sl Tab) 0.4 Mg) 1 tab DAILY PRN SL CHEST PAIN; Start 07/18/16 at 15:30 Sucralfate (Carafate) 1 gm QID PO Last administered on 08/05/16 20:27; Admin Dose 1 GM; Start 07/18/16 at 17:00 Pantoprazole (Protonix Tab) 40 mg DAILY@06 PO Last administered on 08/05/16 06: 39; Admin Dose 40 MG; Start 07/19/16 at 06:00 Ondansetron HCl (Zofran Inj) 4 mg Q6H PRN IV NAUSEA AND/OR VOMITING Last administered on 08/05/16 23:48; Admin Dose 4 MG; Start 07/18/16 at 15:30 Acetaminophen (Tylenol Tab) 650 mg Q6H PRN PO PAIN LEVEL 1-3 OR FEVER Last administered on 08/02/16 15:25; Admin Dose 650 MG; Start 07/18/16 at 15:30 Acetaminophen (Tylenol Supp) 650 mg Q6H PRN [place] PAIN LEVEL 1-3 OR FEVER; Start 07/18/16 at 15:30 Docusate Sodium (Colace) 100 mg Q12H PRN PO CONSTIPATION Last administered on 20:19; Admin Dose 100 MG; Start 07/18/16 at 15:30 Magnesium Hydroxide (Milk Of Mag) 30 ml DAILY PRN PO CONSTIPATION Last administered on 07/28/16 23:03; Admin Dose 30 ML; Start 07/18/16 at 15:30 Bisacodyl (Dulcolax Supp) 10 mg DAILY PRN [place] CONSTIPATION; Start 07/18/16 at 15 :30 Miscellaneous Information 1 ea NOTE XX ; Start 07/18/16 at 17:30 Glucose (Glutose) 15 gm Q15M PRN PO DECREASED GLUCOSE; Start 07/18/16 at 17:30 Glucose (Glutose) 22.5 gm Q15M PRN PO DECREASED GLUCOSE; Start 07/18/16 at 17: 30 Dextrose (D50w Syringe) 25 ml Q15M PRN IV DECREASED GLUCOSE; Start 07/18/16 at 17:30 Dextrose (D50w Syringe) 50 ml Q15M PRN IV DECREASED GLUCOSE; Start 07/18/16 at 17:30 Glucagon (Glucagen) 1 mg Q15M PRN IM DECREASED GLUCOSE; Start 07/18/16 at 17:30 Glucose (Glutose) 15 gm Q15M PRN BUCCAL DECREASED GLUCOSE; Start 07/18/16 at 17 :30 Guaifenesin/ Codeine Phosphate (Robitussin Ac Liquid Cup) 10 ml Q4H PRN PO COUGH Last administered on 07/19/16 19:43; Admin Dose 10 ML; Start 07/18/16 at 23:30 Amiodarone HCl (Cordarone) 200 mg DAILY PO Last administered on 08/02/16 09:47 ; Admin Dose 200 MG; Start 07/20/16 at 09:00 Carvedilol (Coreg) 3.125 mg BID PO Last administered on 08/03/16 20:05; Admin Dose 3.125 MG; Start 07/24/16 at 09:00; Status Future Hold Isosorbide Dinitrate (Isordil) 10 mg TID PO Last administered on 08/03/16 19:58 ; Admin Dose 10 MG; Start 07/30/16 at 21:00; Status Future Hold Metolazone 2.5 mg 2.5 mg DAILY PO Last administered on 08/02/16 09:43; Admin Dose 2.5 MG; Start 07/31/16 at 09:00 Sodium Chloride 1,000 ml @ 50 mls/hr Q20H IV Last administered on 08/06/16 20: 41; Admin Dose 50 MLS/HR; Start 08/06/16 at 00:30 Norepinephrine 16 mg/Dextrose 500 ml @ 1.87 mls/hr TITRATE IV Last administered on 08/06/16 21:43; Admin Dose 43.12 MLS/HR; Start 08/06/16 at 07:00 Propofol 100 ml @ 2.055 mls/ hr Q12H IV Last administered on 08/06/16 17:33; Admin Dose 2.05 MLS/HR; Start 08/06/16 at 03:30 Vasopressin/ Dextrose (Vasostrict/D5W) 60 ml @ 1.2 mls/hr Q12H IV Last administered on 08/06/16 18:37; Admin Dose 0.9 MLS/HR; Start 08/06/16 at 03:30 Phytonadione (Vitamin K) 10 mg DAILY IM Last administered on 08/07/16 08:15; Admin Dose 10 MG; Start 08/06/16 at 14:30; Stop 08/08/16 at 14:29 Furosemide (Lasix) 40 mg DAILY@06 IV ; Start 08/07/16 at 10:00 ADAMARIS RAMIREZ Aug 07, 2016 10:44
--- NOTE | 2016-08-07 11:15 | CONS ---
Date/Time of Note Date/Time of Note DATE: 08/07/16 TIME: 11:11 Assessment/Plan Assessment/Plan Chief Complaint/Hosp Course IMPRESSION: 1. Congestive heart failure exacerbation, systolic, acute on chronic. EF 25% by most recent echo-worsening. Minimally + troponin after cardiac arrest 2. Resp failure s/p intubation 3. Hypotension/shock-on levo and vasopressin 3. History of coronary artery bypass graft surgery. 4. Abnormal electrocardiogram . MIldly postive trop after cardiac arrest 5. History of paroxysmal atrial fibrillation-apixaban held due to coagulopathy 6. Acute on chronic renal failure-Now on HD 7. Hypertension,currently uncontrolled 8. Anemia, mild. 9. Coagulopathy secondary to apixaban-slowly improving 10.Hematuria Rec: -tele -Continue amiodarone for now -Hold coreg, hydralazine, isordil while on pressors -Continue HD for volume removal with plans to be continued fdc -Apixaban and asa held given coagulopathy which is improving -Wean Levo as tolerated Problems: Consultation Date/Type/Reason Admit Date/Time Jul 18, 2016 at 14:06 Initial Consult Date 07/19/2016 Type of Consultation: Cardiology Reason for Consultation Cardiomyopathy/CHF Referring Provider: MURIEL EWING Exam/Review of Systems Vital Signs Vitals Vital Signs Date Time Temp Pulse Resp B/P Pulse Ox O2 Delivery O2 Flow Rate FiO2 08/07/16 10:30 62 08/07/16 05:15 14 100 30 08/07/16 04:00 99.3 112/44 08/06/16 20:00 Mechanical Ventilator 08/06/16 01:54 3.0 Intake and Output 08/06/16 08/06/16 08/07/16 15:00 23:00 07:00 Intake Total 970.84 ml 981.02 ml 763.48 ml Output Total 35 ml 165 ml 125 ml Balance 935.84 ml 816.02 ml 638.48 ml Exam Review of Systems: CONSTITUTIONAL: No fevers, chills. PULMONARY: intubated CARDIOVASCULAR: No obvious chest pain/palpitations GASTROINTESTINAL: No nausea/vomiting. GENITOURINARY: No hematuria/dysuria. MUSCULOSKELETAL: No obvious myagias/arthalgias. PSYCHIATRIC: NO documented depression. NEUROLOGIC: sedated Constitutional: other (sedated) Psych: no complaints Head: normocephalic ENMT: mucosa pink and moist Neck: jvd (9 cm water), supple Respiratory: diminished breath sounds (at bases/B) Cardiovascular: regular rate and rhythm Gastrointestinal: non-tender, soft Musculoskeletal: muscle weakness (generalized) Extremities: edema (TRace/B) Neurological: other (sedated) Results Result Diagram: 08/07/16 0530 08/07/16 0530 Results 24 hrs Laboratory Tests Test 08/06/16 18:20 08/07/16 05:00 08/07/16 05:30 Creatine Kinase 49 33 Creatine Kinase Index 3.3 2.5 Creatinine Kinase MB (Mass) 1.63 0.82 Troponin I 0.226 *H 0.265 *H Arterial Blood HCO3 22.5 Arterial Blood Base Excess -1.6 Arterial Blood Oxygen Saturation 95.2 Sebastien Test N/A Arterial Blood Gas Puncture Site Right Brachial Arterial Blood Carboxyhemoglobin 0.7 Arterial Blood Date Drawn 08/07/2016 4:35:44 AM Arterial Blood Methemoglobin 0.4 Arterial Blood pCO2 (Temp correct) 35.9 Arterial Blood pH (Temp corrected) 7.415 Arterial Blood pO2 (Temp corrected) 78.2 L Blood Gas A-a O2 Differential 93.5 H Blood Gas Actual Respiration Rate 14 Blood Gas Inspiratory Pressure 27.0 Blood Gas Low PEEP Setting 5.0 Blood Gas Modality VENT-AC Blood Gas Notified Time 08/07/2016 4:47:42 AM Blood Gas Notified Whom JMD Blood Gas Respiration Rate 14.0 Blood Gas Specimen Source Blood arterial Blood Gas Temperature 37.0 Blood Gas Tidal Volume 500.0 FiO2 30.0 Oxyhemoglobin Percent 94.2 Total Hemoglobin 12.9 Activated Partial Thromboplast Time 66.7 H Alanine Aminotransferase (ALT/SGPT) 45 Albumin 2.6 L Albumin/Globulin Ratio 1.00 Alkaline Phosphatase 119 Anion Gap 17 H Aspartate Amino Transf (AST/SGOT) 46 Basophils # 0.0 Basophils % 0.1 Blood Urea Nitrogen 79 H Calcium Level 8.4 Carbon Dioxide Level 25 Chloride Level 101 Creatinine 2.54 H Direct Bilirubin 0.40 #H Eosinophils # 0.0 Eosinophils % 0.0 Globulin 2.60 Glucose Level 101 Hematocrit 39.4 L Hemoglobin 12.0 L INR International Normalized Ratio 3.27 Indirect Bilirubin 0.8 Lymphocytes # 0.1 L Lymphocytes % 0.5 L Mean Corpuscular Hemoglobin 25.2 L Mean Corpuscular Hemoglobin Concent 30.5 L Mean Corpuscular Volume 82.6 Mean Platelet Volume 10.3 Monocytes # 0.3 Monocytes % 2.7 Neutrophils # 9.2 H Neutrophils % 96.2 H Nucleated Red Blood Cells # 0.7 H Nucleated Red Blood Cells % 7.2 H Platelet Count 196 Potassium Level 3.8 Prothrombin Time 33.8 #H Prothrombin Time Ratio 2.6 Red Blood Count 4.77 Red Cell Distribution Width 22.5 H Sodium Level 139 Total Bilirubin 1.2 Total Protein 5.2 L White Blood Count 9.6 Medications Medications Current Medications Apixaban (Eliquis) 2.5 mg BID PO Last administered on 08/03/16 19:58; Admin Dose 2.5 MG; Start 07/18/16 at 21:00; Status Future Hold Aspirin (Halfprin) 81 mg DAILY PO Last administered on 08/05/16 09:06; Admin Dose 81 MG; Start 07/19/16 at 09:00; Status Future Hold Nitroglycerin (Nitroglycerin (Sl Tab) 0.4 Mg) 1 tab DAILY PRN SL CHEST PAIN; Start 07/18/16 at 15:30 Sucralfate (Carafate) 1 gm QID PO Last administered on 08/05/16 20:27; Admin Dose 1 GM; Start 07/18/16 at 17:00 Pantoprazole (Protonix Tab) 40 mg DAILY@06 PO Last administered on 08/05/16 06: 39; Admin Dose 40 MG; Start 07/19/16 at 06:00 Ondansetron HCl (Zofran Inj) 4 mg Q6H PRN IV NAUSEA AND/OR VOMITING Last administered on 08/05/16 23:48; Admin Dose 4 MG; Start 07/18/16 at 15:30 Acetaminophen (Tylenol Tab) 650 mg Q6H PRN PO PAIN LEVEL 1-3 OR FEVER Last administered on 08/02/16 15:25; Admin Dose 650 MG; Start 07/18/16 at 15:30 Acetaminophen (Tylenol Supp) 650 mg Q6H PRN [place] PAIN LEVEL 1-3 OR FEVER; Start 07/18/16 at 15:30 Docusate Sodium (Colace) 100 mg Q12H PRN PO CONSTIPATION Last administered on 20:19; Admin Dose 100 MG; Start 07/18/16 at 15:30 Magnesium Hydroxide (Milk Of Mag) 30 ml DAILY PRN PO CONSTIPATION Last administered on 07/28/16 23:03; Admin Dose 30 ML; Start 07/18/16 at 15:30 Bisacodyl (Dulcolax Supp) 10 mg DAILY PRN [place] CONSTIPATION; Start 07/18/16 at 15 :30 Miscellaneous Information 1 ea NOTE XX ; Start 07/18/16 at 17:30 Glucose (Glutose) 15 gm Q15M PRN PO DECREASED GLUCOSE; Start 07/18/16 at 17:30 Glucose (Glutose) 22.5 gm Q15M PRN PO DECREASED GLUCOSE; Start 07/18/16 at 17: 30 Dextrose (D50w Syringe) 25 ml Q15M PRN IV DECREASED GLUCOSE; Start 07/18/16 at 17:30 Dextrose (D50w Syringe) 50 ml Q15M PRN IV DECREASED GLUCOSE; Start 07/18/16 at 17:30 Glucagon (Glucagen) 1 mg Q15M PRN IM DECREASED GLUCOSE; Start 07/18/16 at 17:30 Glucose (Glutose) 15 gm Q15M PRN BUCCAL DECREASED GLUCOSE; Start 07/18/16 at 17 :30 Guaifenesin/ Codeine Phosphate (Robitussin Ac Liquid Cup) 10 ml Q4H PRN PO COUGH Last administered on 07/19/16 19:43; Admin Dose 10 ML; Start 07/18/16 at 23:30 Amiodarone HCl (Cordarone) 200 mg DAILY PO Last administered on 08/02/16 09:47 ; Admin Dose 200 MG; Start 07/20/16 at 09:00 Carvedilol (Coreg) 3.125 mg BID PO Last administered on 08/03/16 20:05; Admin Dose 3.125 MG; Start 07/24/16 at 09:00; Status Future Hold Isosorbide Dinitrate (Isordil) 10 mg TID PO Last administered on 08/03/16 19:58 ; Admin Dose 10 MG; Start 07/30/16 at 21:00; Status Future Hold Metolazone 2.5 mg 2.5 mg DAILY PO Last administered on 08/02/16 09:43; Admin Dose 2.5 MG; Start 07/31/16 at 09:00 Sodium Chloride 1,000 ml @ 50 mls/hr Q20H IV Last administered on 08/06/16 20: 41; Admin Dose 50 MLS/HR; Start 08/06/16 at 00:30 Norepinephrine 16 mg/Dextrose 500 ml @ 1.87 mls/hr TITRATE IV Last administered on 08/06/16 21:43; Admin Dose 43.12 MLS/HR; Start 08/06/16 at 07:00 Propofol 100 ml @ 2.055 mls/ hr Q12H IV Last administered on 08/06/16 17:33; Admin Dose 2.05 MLS/HR; Start 08/06/16 at 03:30 Vasopressin/ Dextrose (Vasostrict/D5W) 60 ml @ 1.2 mls/hr Q12H IV Last administered on 08/06/16 18:37; Admin Dose 0.9 MLS/HR; Start 08/06/16 at 03:30 Phytonadione (Vitamin K) 10 mg DAILY IM Last administered on 08/07/16 08:15; Admin Dose 10 MG; Start 08/06/16 at 14:30; Stop 08/08/16 at 14:29 Furosemide (Lasix) 40 mg DAILY@06 IV ; Start 08/07/16 at 10:00 POLI SAN Aug 07, 2016 11:15
[2016-08-07] MEDS ORDERED: VANCOMYCIN IV PER PHARMACY XX SCH (12:00)
[2016-08-07] MEDS ORDERED: VANCOMYCIN 1.25 GM in SOD CHLORIDE 0.9% 250 ML IVPB ONE (13:00)
[2016-08-07] MEDS: PIPER-TAZO 2.25 GM (PMX) 50 ML IVPB SCH ×2 (14:05→21:15)
[2016-08-07] MEDS: SOD CHLORIDE 0.9% 1,000 ML IV SCH (15:49)
--- NOTE | 2016-08-07 18:46 | CONS ---
Date/Time of Note Date/Time of Note DATE: 08/07/16 TIME: 18:46 Assessment/Plan Assessment/Plan Chief Complaint/Hosp Course 1. Patient has acute on chronic renal failure with acute kidney injury due to systolic heart failure.ON HD 2. The patient has LOW EF now on vent 3. Anemia. 4. ASHD 5. Acute urinary tract infection.BETTER 6 LOW EF 7 hyperkalemia HX 8 afib 9 hematuria 10 vdrf PLAN CONTINUE per pulmonary HD PRN Problems: Consultation Date/Type/Reason Admit Date/Time Jul 18, 2016 at 14:06 Type of Consultation: RENAL Referring Provider: MURIEL EWING 24 HR Interval Summary Constitutional: other (ON VENT) Exam/Review of Systems Vital Signs Vitals Vital Signs Date Time Temp Pulse Resp B/P Pulse Ox O2 Delivery O2 Flow Rate FiO2 08/07/16 18:30 70 16 119/46 100 08/07/16 18:00 Mechanical Ventilator 08/07/16 17:00 30 08/07/16 16:00 98.3 08/06/16 01:54 3.0 Intake and Output 08/06/16 08/06/16 08/07/16 15:00 23:00 07:00 Intake Total 970.84 ml 981.02 ml 838.48 ml Output Total 35 ml 165 ml 125 ml Balance 935.84 ml 816.02 ml 713.48 ml Exam Neck: supple Respiratory: diminished breath sounds Cardiovascular: regular rate and rhythm Gastrointestinal: soft Results Result Diagram: 08/07/16 0530 08/07/16 0530 Results 24 hrs Laboratory Tests Test 08/07/16 05:00 08/07/16 05:30 Arterial Blood HCO3 22.5 Arterial Blood Base Excess -1.6 Arterial Blood Oxygen Saturation 95.2 Sebastien Test N/A Arterial Blood Gas Puncture Site Right Brachial Arterial Blood Carboxyhemoglobin 0.7 Arterial Blood Date Drawn 08/07/2016 4:35:44 AM Arterial Blood Methemoglobin 0.4 Arterial Blood pCO2 (Temp correct) 35.9 Arterial Blood pH (Temp corrected) 7.415 Arterial Blood pO2 (Temp corrected) 78.2 L Blood Gas A-a O2 Differential 93.5 H Blood Gas Actual Respiration Rate 14 Blood Gas Inspiratory Pressure 27.0 Blood Gas Low PEEP Setting 5.0 Blood Gas Modality VENT-AC Blood Gas Notified Time 08/07/2016 4:47:42 AM Blood Gas Notified Whom JMD Blood Gas Respiration Rate 14.0 Blood Gas Specimen Source Blood arterial Blood Gas Temperature 37.0 Blood Gas Tidal Volume 500.0 FiO2 30.0 Oxyhemoglobin Percent 94.2 Total Hemoglobin 12.9 Activated Partial Thromboplast Time 66.7 H Alanine Aminotransferase (ALT/SGPT) 45 Albumin 2.6 L Albumin/Globulin Ratio 1.00 Alkaline Phosphatase 119 Anion Gap 17 H Aspartate Amino Transf (AST/SGOT) 46 Basophils # 0.0 Basophils % 0.1 Blood Urea Nitrogen 79 H Calcium Level 8.4 Carbon Dioxide Level 25 Chloride Level 101 Creatine Kinase 33 Creatine Kinase Index 2.5 Creatinine 2.54 H Creatinine Kinase MB (Mass) 0.82 Direct Bilirubin 0.40 #H Eosinophils # 0.0 Eosinophils % 0.0 Globulin 2.60 Glucose Level 101 Hematocrit 39.4 L Hemoglobin 12.0 L INR International Normalized Ratio 3.27 Indirect Bilirubin 0.8 Lymphocytes # 0.1 L Lymphocytes % 0.5 L Mean Corpuscular Hemoglobin 25.2 L Mean Corpuscular Hemoglobin Concent 30.5 L Mean Corpuscular Volume 82.6 Mean Platelet Volume 10.3 Monocytes # 0.3 Monocytes % 2.7 Neutrophils # 9.2 H Neutrophils % 96.2 H Nucleated Red Blood Cells # 0.7 H Nucleated Red Blood Cells % 7.2 H Platelet Count 196 Potassium Level 3.8 Prothrombin Time 33.8 #H Prothrombin Time Ratio 2.6 Red Blood Count 4.77 Red Cell Distribution Width 22.5 H Sodium Level 139 Total Bilirubin 1.2 Total Protein 5.2 L Troponin I 0.265 *H White Blood Count 9.6 Medications Medications Current Medications Apixaban (Eliquis) 2.5 mg BID PO Last administered on 08/03/16 19:58; Admin Dose 2.5 MG; Start 07/18/16 at 21:00; Status Future Hold Aspirin (Halfprin) 81 mg DAILY PO Last administered on 08/05/16 09:06; Admin Dose 81 MG; Start 07/19/16 at 09:00; Status Future Hold Nitroglycerin (Nitroglycerin (Sl Tab) 0.4 Mg) 1 tab DAILY PRN SL CHEST PAIN; Start 07/18/16 at 15:30 Sucralfate (Carafate) 1 gm QID PO Last administered on 08/05/16 20:27; Admin Dose 1 GM; Start 07/18/16 at 17:00 Pantoprazole (Protonix Tab) 40 mg DAILY@06 PO Last administered on 08/05/16 06: 39; Admin Dose 40 MG; Start 07/19/16 at 06:00 Ondansetron HCl (Zofran Inj) 4 mg Q6H PRN IV NAUSEA AND/OR VOMITING Last administered on 08/05/16 23:48; Admin Dose 4 MG; Start 07/18/16 at 15:30 Acetaminophen (Tylenol Tab) 650 mg Q6H PRN PO PAIN LEVEL 1-3 OR FEVER Last administered on 08/02/16 15:25; Admin Dose 650 MG; Start 07/18/16 at 15:30 Acetaminophen (Tylenol Supp) 650 mg Q6H PRN [place] PAIN LEVEL 1-3 OR FEVER; Start 07/18/16 at 15:30 Docusate Sodium (Colace) 100 mg Q12H PRN PO CONSTIPATION Last administered on 20:19; Admin Dose 100 MG; Start 07/18/16 at 15:30 Magnesium Hydroxide (Milk Of Mag) 30 ml DAILY PRN PO CONSTIPATION Last administered on 07/28/16 23:03; Admin Dose 30 ML; Start 07/18/16 at 15:30 Bisacodyl (Dulcolax Supp) 10 mg DAILY PRN [place] CONSTIPATION; Start 07/18/16 at 15 :30 Miscellaneous Information 1 ea NOTE XX ; Start 07/18/16 at 17:30 Glucose (Glutose) 15 gm Q15M PRN PO DECREASED GLUCOSE; Start 07/18/16 at 17:30 Glucose (Glutose) 22.5 gm Q15M PRN PO DECREASED GLUCOSE; Start 07/18/16 at 17: 30 Dextrose (D50w Syringe) 25 ml Q15M PRN IV DECREASED GLUCOSE; Start 07/18/16 at 17:30 Dextrose (D50w Syringe) 50 ml Q15M PRN IV DECREASED GLUCOSE; Start 07/18/16 at 17:30 Glucagon (Glucagen) 1 mg Q15M PRN IM DECREASED GLUCOSE; Start 07/18/16 at 17:30 Glucose (Glutose) 15 gm Q15M PRN BUCCAL DECREASED GLUCOSE; Start 07/18/16 at 17 :30 Guaifenesin/ Codeine Phosphate (Robitussin Ac Liquid Cup) 10 ml Q4H PRN PO COUGH Last administered on 07/19/16 19:43; Admin Dose 10 ML; Start 07/18/16 at 23:30 Amiodarone HCl (Cordarone) 200 mg DAILY PO Last administered on 08/02/16 09:47 ; Admin Dose 200 MG; Start 07/20/16 at 09:00 Carvedilol (Coreg) 3.125 mg BID PO Last administered on 08/03/16 20:05; Admin Dose 3.125 MG; Start 07/24/16 at 09:00; Status Future Hold Isosorbide Dinitrate (Isordil) 10 mg TID PO Last administered on 08/03/16 19:58 ; Admin Dose 10 MG; Start 07/30/16 at 21:00; Status Future Hold Metolazone 2.5 mg 2.5 mg DAILY PO Last administered on 08/02/16 09:43; Admin Dose 2.5 MG; Start 07/31/16 at 09:00 Sodium Chloride 1,000 ml @ 50 mls/hr Q20H IV Last administered on 08/07/16 15 :49; Admin Dose 50 MLS/HR; Start 08/06/16 at 00:30 Norepinephrine 16 mg/Dextrose 500 ml @ 1.87 mls/hr TITRATE IV Last administered on 08/06/16 21:43; Admin Dose 43.12 MLS/HR; Start 08/06/16 at 07:00 Propofol 100 ml @ 2.055 mls/ hr Q12H IV Last administered on 08/07/16 17:52; Admin Dose 4.11 MLS/HR; Start 08/06/16 at 03:30 Vasopressin/ Dextrose (Vasostrict/D5W) 60 ml @ 1.2 mls/hr Q12H IV Last administered on 08/06/16 18:37; Admin Dose 0.9 MLS/HR; Start 08/06/16 at 03:30 Phytonadione (Vitamin K) 10 mg DAILY IM Last administered on 08/07/16 08:15; Admin Dose 10 MG; Start 08/06/16 at 14:30; Stop 08/08/16 at 14:29 Furosemide 40 mg 40 mg DAILY@06 IV ; Start 08/07/16 at 10:00 Piperacillin Sod/ Tazobactam Sod (Zosyn 2.25gm/ 50ml (Pmx)) 50 ml @ 100 mls/hr Q8 IVPB Last administered on 08/07/16t 14:05; Admin Dose 100 MLS/HR; Start 03/16 at 14:00 YANIRA HART MD Aug 07, 2016 18:46
--- NOTE | 2016-08-07 20:21 | PN ---
Date/Time of Note Date/Time of Note DATE: 08/07/16 TIME: 20:17 Assessment/Plan VTE Prophylaxis VTE Prophylaxis Intervention: other (on Eliquis ) Lines/Catheters IV Catheter Type (from Nrsg): Central Line Central line still needed: Yes (dialysisi access ) Urinary Cath still in place: No (Condom cath) Assessment/Plan Assessment/Plan 1. Acute Resp failure intubated on ventilator due to Pulmonary edema and possible aspiration 2. Acute on chronic congestive heart failure on Lasix 2. 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 Type 2 diabetes. 4. Atrial fibrillation, rate controlled 5. History of CAD status post CABG 6. Acute on likely chronic kidney disease 2/2 cardiorenal syndorme- did not improve, s/p Fidel catheter placement on 08/01/16- Started on HD by integrated circuits inspector Dr.Balbir Lamar- plan for permacath today Plan: Pulmonary has been following- pt is intubated for acute pulmonary edema, HD per nephrology, was getting HD at the time of evaluation IV abx zosyn and vancomycin to cover him for PNA continue IV lasix 40mg Daily, Metolazone currently placed on Hold pt is also on Isordil, coreg- cardiology following BP stable HD per nephrology continue ventilator care Subjective 24 Hr Interval Summary Free Text/Dictation pt remains intubated, BP more stable, getting HD at the time of evaluation Exam/Review of Systems Vital Signs Vitals Vital Signs Date Time Temp Pulse Resp B/P Pulse Ox O2 Delivery O2 Flow Rate FiO2 08/07/16 19:35 72 15 100 30 08/07/16 18:30 119/46 08/07/16 18:00 Mechanical Ventilator 08/07/16 16:00 98.3 08/06/16 01:54 3.0 Intake and Output 08/06/16 08/06/16 08/07/16 15:00 23:00 07:00 Intake Total 970.84 ml 981.02 ml 838.48 ml Output Total 35 ml 165 ml 125 ml Balance 935.84 ml 816.02 ml 713.48 ml Exam HEENT exam; supple neck, positive JVD. Orally intubated. No neck masses. No thyromegaly. No lymphadenopathy. patient is edentulous. Pupils are small bilaterally. Chest examination; diminished breath sound throughout. S1-S2 audible, no murmurs. Regular rhythm. There is a well-healed sternal scar. Abdomen examination; soft, nondistended. No organomegaly. Bowel sound audible. Extremity examination; no peripheral edema. Results Result Diagram: 08/07/16 0530 08/07/16 0530 Results 24 hrs Laboratory Tests Test 08/07/16 05:00 08/07/16 05:30 Arterial Blood HCO3 22.5 Arterial Blood Base Excess -1.6 Arterial Blood Oxygen Saturation 95.2 Sebastien Test N/A Arterial Blood Gas Puncture Site Right Brachial Arterial Blood Carboxyhemoglobin 0.7 Arterial Blood Date Drawn 08/07/2016 4:35:44 AM Arterial Blood Methemoglobin 0.4 Arterial Blood pCO2 (Temp correct) 35.9 Arterial Blood pH (Temp corrected) 7.415 Arterial Blood pO2 (Temp corrected) 78.2 L Blood Gas A-a O2 Differential 93.5 H Blood Gas Actual Respiration Rate 14 Blood Gas Inspiratory Pressure 27.0 Blood Gas Low PEEP Setting 5.0 Blood Gas Modality VENT-AC Blood Gas Notified Time 08/07/2016 4:47:42 AM Blood Gas Notified Whom JMD Blood Gas Respiration Rate 14.0 Blood Gas Specimen Source Blood arterial Blood Gas Temperature 37.0 Blood Gas Tidal Volume 500.0 FiO2 30.0 Oxyhemoglobin Percent 94.2 Total Hemoglobin 12.9 Activated Partial Thromboplast Time 66.7 H Alanine Aminotransferase (ALT/SGPT) 45 Albumin 2.6 L Albumin/Globulin Ratio 1.00 Alkaline Phosphatase 119 Anion Gap 17 H Aspartate Amino Transf (AST/SGOT) 46 Basophils # 0.0 Basophils % 0.1 Blood Urea Nitrogen 79 H Calcium Level 8.4 Carbon Dioxide Level 25 Chloride Level 101 Creatine Kinase 33 Creatine Kinase Index 2.5 Creatinine 2.54 H Creatinine Kinase MB (Mass) 0.82 Direct Bilirubin 0.40 #H Eosinophils # 0.0 Eosinophils % 0.0 Globulin 2.60 Glucose Level 101 Hematocrit 39.4 L Hemoglobin 12.0 L INR International Normalized Ratio 3.27 Indirect Bilirubin 0.8 Lymphocytes # 0.1 L Lymphocytes % 0.5 L Mean Corpuscular Hemoglobin 25.2 L Mean Corpuscular Hemoglobin Concent 30.5 L Mean Corpuscular Volume 82.6 Mean Platelet Volume 10.3 Monocytes # 0.3 Monocytes % 2.7 Neutrophils # 9.2 H Neutrophils % 96.2 H Nucleated Red Blood Cells # 0.7 H Nucleated Red Blood Cells % 7.2 H Platelet Count 196 Potassium Level 3.8 Prothrombin Time 33.8 #H Prothrombin Time Ratio 2.6 Red Blood Count 4.77 Red Cell Distribution Width 22.5 H Sodium Level 139 Total Bilirubin 1.2 Total Protein 5.2 L Troponin I 0.265 *H White Blood Count 9.6 Medications Medications Current Medications Apixaban (Eliquis) 2.5 mg BID PO Last administered on 08/03/16 19:58; Admin Dose 2.5 MG; Start 07/18/16 at 21:00; Status Future Hold Aspirin (Halfprin) 81 mg DAILY PO Last administered on 08/05/16 09:06; Admin Dose 81 MG; Start 07/19/16 at 09:00; Status Future Hold Nitroglycerin (Nitroglycerin (Sl Tab) 0.4 Mg) 1 tab DAILY PRN SL CHEST PAIN; Start 07/18/16 at 15:30 Sucralfate (Carafate) 1 gm QID PO Last administered on 08/05/16 20:27; Admin Dose 1 GM; Start 07/18/16 at 17:00 Pantoprazole (Protonix Tab) 40 mg DAILY@06 PO Last administered on 08/05/16 06: 39; Admin Dose 40 MG; Start 07/19/16 at 06:00 Ondansetron HCl (Zofran Inj) 4 mg Q6H PRN IV NAUSEA AND/OR VOMITING Last administered on 08/05/16 23:48; Admin Dose 4 MG; Start 07/18/16 at 15:30 Acetaminophen (Tylenol Tab) 650 mg Q6H PRN PO PAIN LEVEL 1-3 OR FEVER Last administered on 08/02/16 15:25; Admin Dose 650 MG; Start 07/18/16 at 15:30 Acetaminophen (Tylenol Supp) 650 mg Q6H PRN [place] PAIN LEVEL 1-3 OR FEVER; Start 07/18/16 at 15:30 Docusate Sodium (Colace) 100 mg Q12H PRN PO CONSTIPATION Last administered on 20:19; Admin Dose 100 MG; Start 07/18/16 at 15:30 Magnesium Hydroxide (Milk Of Mag) 30 ml DAILY PRN PO CONSTIPATION Last administered on 07/28/16 23:03; Admin Dose 30 ML; Start 07/18/16 at 15:30 Bisacodyl (Dulcolax Supp) 10 mg DAILY PRN [place] CONSTIPATION; Start 07/18/16 at 15 :30 Miscellaneous Information 1 ea NOTE XX ; Start 07/18/16 at 17:30 Glucose (Glutose) 15 gm Q15M PRN PO DECREASED GLUCOSE; Start 07/18/16 at 17:30 Glucose (Glutose) 22.5 gm Q15M PRN PO DECREASED GLUCOSE; Start 07/18/16 at 17: 30 Dextrose (D50w Syringe) 25 ml Q15M PRN IV DECREASED GLUCOSE; Start 07/18/16 at 17:30 Dextrose (D50w Syringe) 50 ml Q15M PRN IV DECREASED GLUCOSE; Start 07/18/16 at 17:30 Glucagon (Glucagen) 1 mg Q15M PRN IM DECREASED GLUCOSE; Start 07/18/16 at 17:30 Glucose (Glutose) 15 gm Q15M PRN BUCCAL DECREASED GLUCOSE; Start 07/18/16 at 17 :30 Guaifenesin/ Codeine Phosphate (Robitussin Ac Liquid Cup) 10 ml Q4H PRN PO COUGH Last administered on 07/19/16 19:43; Admin Dose 10 ML; Start 07/18/16 at 23:30 Amiodarone HCl (Cordarone) 200 mg DAILY PO Last administered on 08/02/16 09:47 ; Admin Dose 200 MG; Start 07/20/16 at 09:00 Carvedilol (Coreg) 3.125 mg BID PO Last administered on 08/03/16 20:05; Admin Dose 3.125 MG; Start 07/24/16 at 09:00; Status Future Hold Isosorbide Dinitrate (Isordil) 10 mg TID PO Last administered on 08/03/16 19:58 ; Admin Dose 10 MG; Start 07/30/16 at 21:00; Status Future Hold Metolazone 2.5 mg 2.5 mg DAILY PO Last administered on 08/02/16 09:43; Admin Dose 2.5 MG; Start 07/31/16 at 09:00 Sodium Chloride 1,000 ml @ 50 mls/hr Q20H IV Last administered on 08/07/16 15 :49; Admin Dose 50 MLS/HR; Start 08/06/16 at 00:30 Norepinephrine 16 mg/Dextrose 500 ml @ 1.87 mls/hr TITRATE IV Last administered on 08/06/16 21:43; Admin Dose 43.12 MLS/HR; Start 08/06/16 at 07:00 Propofol 100 ml @ 2.055 mls/ hr Q12H IV Last administered on 08/07/16 17:52; Admin Dose 4.11 MLS/HR; Start 08/06/16 at 03:30 Vasopressin/ Dextrose (Vasostrict/D5W) 60 ml @ 1.2 mls/hr Q12H IV Last administered on 08/06/16 18:37; Admin Dose 0.9 MLS/HR; Start 08/06/16 at 03:30 Phytonadione (Vitamin K) 10 mg DAILY IM Last administered on 08/07/16 08:15; Admin Dose 10 MG; Start 08/06/16 at 14:30; Stop 08/08/16 at 14:29 Furosemide 40 mg 40 mg DAILY@06 IV ; Start 08/07/16 at 10:00 Piperacillin Sod/ Tazobactam Sod (Zosyn 2.25gm/ 50ml (Pmx)) 50 ml @ 100 mls/hr Q8 IVPB Last administered on 08/07/16 14:05; Admin Dose 100 MLS/HR; Start 03/16 at 14:00 STEPHAN MARES MD Aug 07, 2016 20:21
[2016-08-07] MEDS ORDERED: SOD CHLORIDE 0.9% 1,000 ML IV SCH (21:00)
[2016-08-08] VITALS (98 sets, daily range): BP systolic 79–143; BP diastolic 33–57; PULSE 60–85; RESP 12–34
[2016-08-08] MEDS: VASOPRESSIN 60 UNIT in DEXTROSE 5% 57 ML IV SCH ×2 (03:30→15:30)
[2016-08-08 05:00] LABS: ADD SCAN DIFF NO
[2016-08-08 05:15] LABS: INR 2.77; PROTIME 29.6 Sec (12.2-14.2); PT RATIO 2.3
[2016-08-08 05:16] LABS: PARTIAL THROMBOPLASTIN TIME 61.7 Sec (25.0-35.0)
[2016-08-08 05:17] LABS: ABNORMAL IP MESSAGE 1; HEMATOCRIT 37.8 % (42.0-52.0); HEMOGLOBIN 11.3 g/dl (14.0-18.0); MEAN CORPUSCULAR HEMOGLOBIN 24.5 pg (29.0-33.0); MEAN CORPUSCULAR HGB CONC 29.9 g/dl (32.0-37.0); MEAN PLATELET VOLUME 11.2 fl (7.4-10.4); PLATELET COUNT 158 10^3/UL (140-415); RED BLOOD COUNT 4.61 10^6/ul (4.70-6.10); WHITE BLOOD COUNT 7.5 10^3/ul (4.8-10.8)
[2016-08-08 05:20] LABS: CREATININE 2.04 mg/dl (0.61-1.24)
[2016-08-08 05:21] LABS: CALCIUM 8.1 mg/dl (8.4-10.2)
[2016-08-08] MEDS: FUROSEMIDE 40 MG INJ IV SCH (05:41)
[2016-08-08] MEDS: PIPER-TAZO 2.25 GM (PMX) 50 ML IVPB SCH ×3 (05:41→21:06)
[2016-08-08] MEDS: PANTOPRAZOLE (EC) 40 MG TAB PO SCH (05:42)
[2016-08-08 05:44] LABS: AADO2 Arterial 95.5 mmHg (7.0-24.0); Allen Test ACCEPTAB; Arterial Base Excess -0.4 mmol/L (-3.0-3); Arterial COHb 0.7 % (0.0-3.0); Arterial Fraction of Oxyhgb 94.4 % (93.0-99.0); Arterial HCO3 22.8 mmol/L (22.0-26.0); Arterial MetHb 0.4 % (0.0-1.5); Arterial Total Hemglobin 12.4 g/dl (12.0-18.0); MODE VENT - AC
[2016-08-08] MEDS: PROPOFOL 100 ML IV SCH ×2 (05:57→18:35)
[2016-08-08 06:26] LABS: POTASSIUM 2.9 mmol/L (3.5-5.1)
[2016-08-08] MEDS: SOD CHLORIDE 0.45% 1,000 ML IV SCH (06:39)
[2016-08-08] MEDS ORDERED: POTASSIUM CHLORIDE 250 ML IVPB SCH (07:00)
[2016-08-08 07:43] LABS: LYMPHOCYTES # 0.2 10^3/ul (0.8-2.9); MONOCYTE # 0.2 10^3/ul (0.3-0.9); NEUTROPHIL # 5.9 10^3/ul (1.6-7.5)
[2016-08-08] MEDS: SUCRALFATE 1 GM TAB PO SCH ×4 (09:00→21:00)
[2016-08-08] MEDS: AMIODARONE 200 MG TAB PO SCH (09:00)
[2016-08-08] MEDS: PHYTONADIONE 10 MG/ML INJ IM SCH (09:49)
--- NOTE | 2016-08-08 09:58 | PN ---
Date/Time of Note Date/Time of Note DATE: 08/08/16 TIME: 09:56 Assessment/Plan VTE Prophylaxis VTE Prophylaxis Intervention: heparin Lines/Catheters IV Catheter Type (from [facility]): Peripheral IV Urinary Cath still in place: No (Condom cath) Assessment/Plan Assessment/Plan 1. Acute Resp failure intubated on ventilator due to Pulmonary edema and possible aspiration 2. Acute on chronic congestive heart failure on Lasix 2. 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 Type 2 diabetes. 4. Atrial fibrillation, rate controlled 5. History of CAD status post CABG 6. Acute on likely chronic kidney disease 2/2 cardiorenal syndorme- did not improve, s/p Fidel catheter placement on 08/01/16- Started on HD by road tester Dr.Balbir Lamar- Plan: Pulmonary has been following- pt is intubated for acute pulmonary edema,- currently on weaning trial KCL has been replaced by , HD per nephrology, Appreciate nephrology help ,his metolazone has been stopped since yesterday, currently on IV lasix 40mg daily IV abx zosyn and vancomycin to cover him for PNA pt is also on Isordil, coreg- cardiology following BP stable Heparin for DVT prophylaxis Subjective 24 Hr Interval Summary Free Text/Dictation pt more alert today, currently on weaning trial, BP stable, on IV lasix 40mg daily Exam/Review of Systems Vital Signs Vitals Vital Signs Date Time Temp Pulse Resp B/P Pulse Ox O2 Delivery O2 Flow Rate FiO2 08/08/16 09:00 63 14 100 08/08/16 08:45 111/40 08/08/16 08:00 98.0 Mechanical Ventilator 08/08/16 05:30 30 08/06/16 01:54 3.0 Intake and Output 08/07/16 08/07/16 08/08/16 15:00 23:00 07:00 Intake Total 757.84 ml 482.045 ml 556.575 ml Output Total 4300 ml 750 ml 280 ml Balance -3542.16 ml -267.955 ml 276.575 ml Exam HEENT exam; supple neck, positive JVD. Orally intubated. No neck masses. No thyromegaly. No lymphadenopathy. patient is edentulous. Pupils are small bilaterally. Chest examination; diminished breath sound throughout. bilaeral crackles + S1- S2 audible, no murmurs. Regular rhythm. There is a well-healed sternal scar. Abdomen examination; soft, nondistended. No organomegaly. Bowel sound audible. Extremity examination; no peripheral edema. Results Result Diagram: 08/08/16 0430 08/08/16 0430 Results 24 hrs Laboratory Tests Test 08/08/16 04:30 08/08/16 05:00 Activated Partial Thromboplast Time 61.7 H Anion Gap 15 Band Neutrophils % 15.0 H Blood Urea Nitrogen 61 H Calcium Level 8.1 L Carbon Dioxide Level 26 Chloride Level 108 Creatinine 2.04 H Eosinophils # Eosinophils % Glucose Level 100 Hematocrit 37.8 L Hemoglobin 11.3 L INR International Normalized Ratio 2.77 Lymphocytes # 0.2 L Lymphocytes % 3.0 L Mean Corpuscular Hemoglobin 24.5 L Mean Corpuscular Hemoglobin Concent 29.9 L Mean Corpuscular Volume 82.0 Mean Platelet Volume 11.2 H Monocytes # 0.2 L Monocytes % 3.0 Neutrophils # 5.9 Neutrophils % 79.0 H Nucleated Red Blood Cells % 6.0 H Platelet Count 158 Potassium Level 2.9 *L Prothrombin Time 29.6 H Prothrombin Time Ratio 2.3 Red Blood Count 4.61 L Red Cell Distribution Width 23.0 H Sodium Level 146 H White Blood Count 7.5 # Arterial Blood HCO3 22.8 Arterial Blood Base Excess -0.4 Arterial Blood Oxygen Saturation 95.4 Sebastien Test ACCEPTAB Arterial Blood Gas Puncture Site Right Radial Arterial Blood Carboxyhemoglobin 0.7 Arterial Blood Date Drawn 08/08/2016 5:30:42 AM Arterial Blood Methemoglobin 0.4 Arterial Blood pCO2 (Temp correct) 32.9 L Arterial Blood pH (Temp corrected) 7.459 H Arterial Blood pO2 (Temp corrected) 79.7 L Blood Gas A-a O2 Differential 95.5 H Blood Gas Actual Respiration Rate 14 Blood Gas Low PEEP Setting 5.0 Blood Gas Modality VENT - AC Blood Gas Notified Time 08/08/2016 5:44:33 AM Blood Gas Notified Whom MA Blood Gas Respiration Rate 14.0 Blood Gas Specimen Source Blood arterial Blood Gas Temperature 37.0 Blood Gas Tidal Volume 500.0 FiO2 30.0 Oxyhemoglobin Percent 94.4 Total Hemoglobin 12.4 Medications Medications Current Medications Apixaban (Eliquis) 2.5 mg BID PO Last administered on 08/03/16 19:58; Admin Dose 2.5 MG; Start 07/18/16 at 21:00; Status Future Hold Aspirin (Halfprin) 81 mg DAILY PO Last administered on 08/05/16 09:06; Admin Dose 81 MG; Start 07/19/16 at 09:00; Status Future Hold Nitroglycerin (Nitroglycerin (Sl Tab) 0.4 Mg) 1 tab DAILY PRN SL CHEST PAIN; Start 07/18/16 at 15:30 Sucralfate (Carafate) 1 gm QID PO Last administered on 08/05/16 20:27; Admin Dose 1 GM; Start 07/18/16 at 17:00 Pantoprazole (Protonix Tab) 40 mg DAILY@06 PO Last administered on 08/05/16 06: 39; Admin Dose 40 MG; Start 07/19/16 at 06:00 Ondansetron HCl (Zofran Inj) 4 mg Q6H PRN IV NAUSEA AND/OR VOMITING Last administered on 08/05/16 23:48; Admin Dose 4 MG; Start 07/18/16 at 15:30 Acetaminophen (Tylenol Tab) 650 mg Q6H PRN PO PAIN LEVEL 1-3 OR FEVER Last administered on 08/02/16 15:25; Admin Dose 650 MG; Start 07/18/16 at 15:30 Acetaminophen (Tylenol Supp) 650 mg Q6H PRN [place] PAIN LEVEL 1-3 OR FEVER; Start 07/18/16 at 15:30 Docusate Sodium (Colace) 100 mg Q12H PRN PO CONSTIPATION Last administered on 20:19; Admin Dose 100 MG; Start 07/18/16 at 15:30 Magnesium Hydroxide (Milk Of Mag) 30 ml DAILY PRN PO CONSTIPATION Last administered on 07/28/16 23:03; Admin Dose 30 ML; Start 07/18/16 at 15:30 Bisacodyl (Dulcolax Supp) 10 mg DAILY PRN [place] CONSTIPATION; Start 07/18/16 at 15 :30 Miscellaneous Information 1 ea NOTE XX ; Start 07/18/16 at 17:30 Glucose (Glutose) 15 gm Q15M PRN PO DECREASED GLUCOSE; Start 07/18/16 at 17:30 Glucose (Glutose) 22.5 gm Q15M PRN PO DECREASED GLUCOSE; Start 07/18/16 at 17: 30 Dextrose (D50w Syringe) 25 ml Q15M PRN IV DECREASED GLUCOSE; Start 07/18/16 at 17:30 Dextrose (D50w Syringe) 50 ml Q15M PRN IV DECREASED GLUCOSE; Start 07/18/16 at 17:30 Glucagon (Glucagen) 1 mg Q15M PRN IM DECREASED GLUCOSE; Start 07/18/16 at 17:30 Glucose (Glutose) 15 gm Q15M PRN BUCCAL DECREASED GLUCOSE; Start 07/18/16 at 17 :30 Guaifenesin/ Codeine Phosphate (Robitussin Ac Liquid Cup) 10 ml Q4H PRN PO COUGH Last administered on 07/19/16 19:43; Admin Dose 10 ML; Start 07/18/16 at 23:30 Amiodarone HCl (Cordarone) 200 mg DAILY PO Last administered on 08/02/16 09:47 ; Admin Dose 200 MG; Start 07/20/16 at 09:00 Carvedilol (Coreg) 3.125 mg BID PO Last administered on 08/03/16 20:05; Admin Dose 3.125 MG; Start 07/24/16 at 09:00; Status Future Hold Isosorbide Dinitrate 10 mg 10 mg TID PO Last administered on 08/03/16 19:58; Admin Dose 10 MG; Start 07/30/16 at 21:00; Status Future Hold Norepinephrine 16 mg/Dextrose 500 ml @ 1.87 mls/hr TITRATE IV Last administered on 08/06/16 21:43; Admin Dose 43.12 MLS/HR; Start 08/06/16 at 07:00 Propofol 100 ml @ 2.055 mls/ hr Q12H IV Last administered on 08/08/16 05:57; Admin Dose 1.644 MLS/HR; Start 08/06/16 at 03:30 Vasopressin/ Dextrose (Vasostrict/D5W) 60 ml @ 1.2 mls/hr Q12H IV Last administered on 08/06/16 18:37; Admin Dose 0.9 MLS/HR; Start 08/06/16 at 03:30 Phytonadione (Vitamin K) 10 mg DAILY IM Last administered on 3/11/17at 09:49; Admin Dose 10 MG; Start 08/06/16 at 14:30; Stop 08/08/16 at 14:29 Furosemide 40 mg 40 mg DAILY@06 IV Last administered on 08/08/16 05:41; Admin Dose 40 MG; Start 08/07/16 at 10:00 Piperacillin Sod/ Tazobactam Sod 50 ml @ 100 mls/hr Q8 IVPB Last administered on 08/08/16 05:41; Admin Dose 100 MLS/HR; Start 08/07/16 at 14:00 Sodium Chloride 1,000 ml @ 60 mls/hr [id number] IV Last administered on 06:39; Admin Dose 60 MLS/HR; Start 08/08/16 at 07:00 Potassium Chloride (KCl 20 MEQ/50 ML SW) 50 ml @ 25 mls/hr Q2H IVPB ; Start 04/16 at 09:30; Stop 08/08/16 at 13:29 STEPHAN MARES MD Aug 08, 2016 09:58
[2016-08-08] MEDS: POTASSIUM CHLORIDE 50 ML IVPB SCH ×2 (10:30→12:30)
--- NOTE | 2016-08-08 10:41 | CONS ---
Date/Time of Note Date/Time of Note DATE: 08/08/16 TIME: 10:36 Assessment/Plan Assessment/Plan Additional Assessment/Plan Ventilator settings; AC of 1 14, tidal volume 500, PEEP of 5, 30% FiO2. Assessment recommendations; 1. Patient admitted with severe congestive heart failure exacerbation due to underlying cardia myopathy leading to respiratory failure. There has been significant overall clinical improvement. 2. Hypotension, currently on low-dose Levophed. 3. Renal insufficiency. Patient on hemodialysis. 4. Thrombocytopenia. Likely heparin-induced. 5. History of coronary artery disease status post coronary artery bypass surgery and pacemaker implantation in the past. 6. History of diabetes. Hold sedation for now. Hold further subcutaneous heparin dosing. The patient currently has good weaning parameters. I would recommend switching him to CPAP mode as tolerated and to extubate him once the patient meets weaning criteria. Consultation Date/Type/Reason Admit Date/Time Jul 18, 2016 at 14:06 Initial Consult Date 08/06/16 Type of Consultation: Pulmonary/critical care Referring Provider: MURIEL EWING 24 HR Interval Summary Free Text/Dictation Patient condition remains radicular. Still requiring full ventilator support. Patient has been taken off sedation and has excellent mental status. General exam; elderly male, orally intubated, awake. Currently in no distress. Exam/Review of Systems Vital Signs Vitals Vital Signs Date Time Temp Pulse Resp B/P Pulse Ox O2 Delivery O2 Flow Rate FiO2 08/08/16 09:00 63 14 100 08/08/16 08:45 111/40 08/08/16 08:00 98.0 Mechanical Ventilator 08/08/16 05:30 30 08/06/16 01:54 3.0 Intake and Output 08/07/16 08/07/16 08/08/16 15:00 23:00 07:00 Intake Total 757.84 ml 482.045 ml 622.195 ml Output Total 4300 ml 750 ml 280 ml Balance -3542.16 ml -267.955 ml 342.195 ml Exam HEENT examination; supple neck, positive JVD. No lymphadenopathy. Orally intubated. Patient is edentulous. Both are equal and reactive to light bilaterally. No neck masses. No thyromegaly. Chest examination; diminished but clear breath sounds bilaterally. S1-S2 audible, no murmurs. There is a well-healed sternal scar. There is a pacemaker in the right chest wall. Abdomen examination; soft, nondistended. No organomegaly. Nontender. Both audible. Extremity examination; no peripheral edema. [employer] examination; patient is awake, follows simple commands moves all 4 extremities. Results Result Diagram: 08/08/16 0430 08/08/16 0430 Results 24 hrs Laboratory Tests Test 08/08/16 04:30 08/08/16 05:00 Activated Partial Thromboplast Time 61.7 H Anion Gap 15 Band Neutrophils % 15.0 H Blood Urea Nitrogen 61 H Calcium Level 8.1 L Carbon Dioxide Level 26 Chloride Level 108 Creatinine 2.04 H Eosinophils # Eosinophils % Glucose Level 100 Hematocrit 37.8 L Hemoglobin 11.3 L INR International Normalized Ratio 2.77 Lymphocytes # 0.2 L Lymphocytes % 3.0 L Mean Corpuscular Hemoglobin 24.5 L Mean Corpuscular Hemoglobin Concent 29.9 L Mean Corpuscular Volume 82.0 Mean Platelet Volume 11.2 H Monocytes # 0.2 L Monocytes % 3.0 Neutrophils # 5.9 Neutrophils % 79.0 H Nucleated Red Blood Cells % 6.0 H Platelet Count 158 Potassium Level 2.9 *L Prothrombin Time 29.6 H Prothrombin Time Ratio 2.3 Red Blood Count 4.61 L Red Cell Distribution Width 23.0 H Sodium Level 146 H White Blood Count 7.5 # Arterial Blood HCO3 22.8 Arterial Blood Base Excess -0.4 Arterial Blood Oxygen Saturation 95.4 Sebastein Test ACCEPTAB Arterial Blood Gas Puncture Site Right Radial Arterial Blood Carboxyhemoglobin 0.7 Arterial Blood Date Drawn 08/08/2016 5:30:42 AM Arterial Blood Methemoglobin 0.4 Arterial Blood pCO2 (Temp correct) 32.9 L Arterial Blood pH (Temp corrected) 7.459 H Arterial Blood pO2 (Temp corrected) 79.7 L Blood Gas A-a O2 Differential 95.5 H Blood Gas Actual Respiration Rate 14 Blood Gas Low PEEP Setting 5.0 Blood Gas Modality VENT - AC Blood Gas Notified Time 08/08/2016 5:44:33 AM Blood Gas Notified Whom MA Blood Gas Respiration Rate 14.0 Blood Gas Specimen Source Blood arterial Blood Gas Temperature 37.0 Blood Gas Tidal Volume 500.0 FiO2 30.0 Oxyhemoglobin Percent 94.4 Total Hemoglobin 12.4 Medications Medications Current Medications Apixaban (Eliquis) 2.5 mg BID PO Last administered on 08/03/16 19:58; Admin Dose 2.5 MG; Start 07/18/16 at 21:00; Status Future Hold Aspirin (Halfprin) 81 mg DAILY PO Last administered on 08/05/16 09:06; Admin Dose 81 MG; Start 07/19/16 at 09:00; Status Future Hold Nitroglycerin (Nitroglycerin (Sl Tab) 0.4 Mg) 1 tab DAILY PRN SL CHEST PAIN; Start 07/18/16 at 15:30 Sucralfate (Carafate) 1 gm QID PO Last administered on 08/05/16 20:27; Admin Dose 1 GM; Start 07/18/16 at 17:00 Pantoprazole (Protonix Tab) 40 mg DAILY@06 PO Last administered on 08/05/16 06: 39; Admin Dose 40 MG; Start 07/19/16 at 06:00 Ondansetron HCl (Zofran Inj) 4 mg Q6H PRN IV NAUSEA AND/OR VOMITING Last administered on 08/05/16 23:48; Admin Dose 4 MG; Start 07/18/16 at 15:30 Acetaminophen (Tylenol Tab) 650 mg Q6H PRN PO PAIN LEVEL 1-3 OR FEVER Last administered on 08/02/16 15:25; Admin Dose 650 MG; Start 07/18/16 at 15:30 Acetaminophen (Tylenol Supp) 650 mg Q6H PRN [place] PAIN LEVEL 1-3 OR FEVER; Start 07/18/16 at 15:30 Docusate Sodium (Colace) 100 mg Q12H PRN PO CONSTIPATION Last administered on 20:19; Admin Dose 100 MG; Start 07/18/16 at 15:30 Magnesium Hydroxide (Milk Of Mag) 30 ml DAILY PRN PO CONSTIPATION Last administered on 07/28/16 23:03; Admin Dose 30 ML; Start 07/18/16 at 15:30 Bisacodyl (Dulcolax Supp) 10 mg DAILY PRN [place] CONSTIPATION; Start 07/18/16 at 15 :30 Miscellaneous Information 1 ea NOTE XX ; Start 07/18/16 at 17:30 Glucose (Glutose) 15 gm Q15M PRN PO DECREASED GLUCOSE; Start 07/18/16 at 17:30 Glucose (Glutose) 22.5 gm Q15M PRN PO DECREASED GLUCOSE; Start 07/18/16 at 17: 30 Dextrose (D50w Syringe) 25 ml Q15M PRN IV DECREASED GLUCOSE; Start 07/18/16 at 17:30 Dextrose (D50w Syringe) 50 ml Q15M PRN IV DECREASED GLUCOSE; Start 07/18/16 at 17:30 Glucagon (Glucagen) 1 mg Q15M PRN IM DECREASED GLUCOSE; Start 07/18/16 at 17:30 Glucose (Glutose) 15 gm Q15M PRN BUCCAL DECREASED GLUCOSE; Start 07/18/16 at 17 :30 Guaifenesin/ Codeine Phosphate (Robitussin Ac Liquid Cup) 10 ml Q4H PRN PO COUGH Last administered on 07/19/16 19:43; Admin Dose 10 ML; Start 07/18/16 at 23:30 Amiodarone HCl (Cordarone) 200 mg DAILY PO Last administered on 08/02/16 09:47 ; Admin Dose 200 MG; Start 07/20/16 at 09:00 Carvedilol (Coreg) 3.125 mg BID PO Last administered on 08/03/16 20:05; Admin Dose 3.125 MG; Start 07/24/16 at 09:00; Status Future Hold Isosorbide Dinitrate 10 mg 10 mg TID PO Last administered on 08/03/16 19:58; Admin Dose 10 MG; Start 07/30/16 at 21:00; Status Future Hold Norepinephrine 16 mg/Dextrose 500 ml @ 1.87 mls/hr TITRATE IV Last administered on 08/06/16 21:43; Admin Dose 43.12 MLS/HR; Start 08/06/16 at 07:00 Propofol 100 ml @ 2.055 mls/ hr Q12H IV Last administered on 08/08/16 05:57; Admin Dose 1.644 MLS/HR; Start 08/06/16 at 03:30 Vasopressin/ Dextrose (Vasostrict/D5W) 60 ml @ 1.2 mls/hr Q12H IV Last administered on 08/06/16 18:37; Admin Dose 0.9 MLS/HR; Start 08/06/16 at 03:30 Phytonadione (Vitamin K) 10 mg DAILY IM Last administered on 3/11/17at 09:49; Admin Dose 10 MG; Start 08/06/16 at 14:30; Stop 08/08/16 at 14:29 Furosemide 40 mg 40 mg DAILY@06 IV Last administered on 08/08/16 05:41; Admin Dose 40 MG; Start 08/07/16 at 10:00 Piperacillin Sod/ Tazobactam Sod 50 ml @ 100 mls/hr Q8 IVPB Last administered on 08/08/16 05:41; Admin Dose 100 MLS/HR; Start 08/07/16 at 14:00 Sodium Chloride 1,000 ml @ 60 mls/hr [id number] IV Last administered on 06:39; Admin Dose 60 MLS/HR; Start 08/08/16 at 07:00 Potassium Chloride (KCl 20 MEQ/50 ML SW) 50 ml @ 25 mls/hr Q2H IVPB ; Start 04/16 at 09:30; Stop 08/08/16 at 13:29 Heparin Sodium (Porcine) (Heparin (5000 Units/0.5 ml)) 5,000 unit BID SC ; Start 08/08/16 at 21:00 Miscellaneous Information (*Rx Drug Level Order Reminder*) RANDOM VANCOMYCIN LEVEL 3... ONCE ONCE XX ; Start 08/09/16 at 05:00; Stop 08/09/16 at 05:01 ADAMARIS RAMIREZ Aug 08, 2016 10:41
--- NOTE | 2016-08-08 13:13 | CONS ---
Date/Time of Note Date/Time of Note DATE: 08/08/16 TIME: 13:09 Assessment/Plan Assessment/Plan Chief Complaint/Hosp Course IMPRESSION: 1. Congestive heart failure exacerbation, systolic, acute on chronic. EF 25% by most recent echo-worsening. Minimally + troponin after cardiac arrest 2. Resp failure s/p intubation 3. Hypotension/shock-on levo and vasopressin 3. History of coronary artery bypass graft surgery. 4. Abnormal electrocardiogram . MIldly postive trop after cardiac arrest 5. History of paroxysmal atrial fibrillation-apixaban held due to coagulopathy 6. Acute on chronic renal failure-Now on HD 8. Anemia, mild. 9. Coagulopathy secondary to apixaban-slowly improving 10.Hematuria Rec: -tele -Continue amiodarone for now -Hold coreg, hydralazine, isordil while on pressors -Continue HD for volume removal with plans to be continued snf -Apixaban and asa held given coagulopathy which is improving -Wean Levo as tolerated -Patient being given dailt vitamin K. Will discuss with primary as may want to allow some autoanticoagulation secondary to ongoing AF as long as patient does not have bleeding diathysis Problems: Consultation Date/Type/Reason Admit Date/Time Jul 18, 2016 at 14:06 Initial Consult Date 07/19/2016 Type of Consultation: Cardiology Reason for Consultation CHF/cardiomyopathy Referring Provider: MURIEL EWING Exam/Review of Systems Vital Signs Vitals Vital Signs Date Time Temp Pulse Resp B/P Pulse Ox O2 Delivery O2 Flow Rate FiO2 08/08/16 12:45 67 87/37 100 08/08/16 12:15 22 08/08/16 12:00 98.2 Mechanical Ventilator 08/08/16 11:30 30 08/06/16 01:54 3.0 Intake and Output 08/07/16 08/07/16 08/08/16 15:00 23:00 07:00 Intake Total 757.84 ml 482.045 ml 622.195 ml Output Total 4300 ml 750 ml 280 ml Balance -3542.16 ml -267.955 ml 342.195 ml Exam Review of Systems: CONSTITUTIONAL: No fevers, chills. PULMONARY: intubated CARDIOVASCULAR: No obvious chest pain/palpitations GASTROINTESTINAL: No nausea/vomiting. GENITOURINARY: No hematuria/dysuria. MUSCULOSKELETAL: No obvious myagias/arthalgias. PSYCHIATRIC: The patient denies depression. NEUROLOGIC: No weakness Constitutional: other (sedated) Psych: no complaints Head: normocephalic ENMT: mucosa pink and moist Neck: jvd (9 cm water), supple Respiratory: diminished breath sounds (at bases/B) Cardiovascular: irregular rhythm Gastrointestinal: non-tender, soft Musculoskeletal: muscle tone (normal) Extremities: edema (none) Neurological: other (sedated) Results Result Diagram: 08/08/16 04308/08/16 043 Results 24 hrs Laboratory Tests Test 08/08/16 04:30 08/08/16 05:00 Activated Partial Thromboplast Time 61.7 H Anion Gap 15 Band Neutrophils % 15.0 H Blood Urea Nitrogen 61 H Calcium Level 8.1 L Carbon Dioxide Level 26 Chloride Level 108 Creatinine 2.04 H Eosinophils # Eosinophils % Glucose Level 100 Hematocrit 37.8 L Hemoglobin 11.3 L INR International Normalized Ratio 2.77 Lymphocytes # 0.2 L Lymphocytes % 3.0 L Mean Corpuscular Hemoglobin 24.5 L Mean Corpuscular Hemoglobin Concent 29.9 L Mean Corpuscular Volume 82.0 Mean Platelet Volume 11.2 H Monocytes # 0.2 L Monocytes % 3.0 Neutrophils # 5.9 Neutrophils % 79.0 H Nucleated Red Blood Cells % 6.0 H Platelet Count 158 Potassium Level 2.9 *L Prothrombin Time 29.6 H Prothrombin Time Ratio 2.3 Red Blood Count 4.61 L Red Cell Distribution Width 23.0 H Sodium Level 146 H White Blood Count 7.5 # Arterial Blood HCO3 22.8 Arterial Blood Base Excess -0.4 Arterial Blood Oxygen Saturation 95.4 Sebastien Test ACCEPTAB Arterial Blood Gas Puncture Site Right Radial Arterial Blood Carboxyhemoglobin 0.7 Arterial Blood Date Drawn 08/08/2016 5:30:42 AM Arterial Blood Methemoglobin 0.4 Arterial Blood pCO2 (Temp correct) 32.9 L Arterial Blood pH (Temp corrected) 7.459 H Arterial Blood pO2 (Temp corrected) 79.7 L Blood Gas A-a O2 Differential 95.5 H Blood Gas Actual Respiration Rate 14 Blood Gas Low PEEP Setting 5.0 Blood Gas Modality VENT - AC Blood Gas Notified Time 08/08/2016 5:44:33 AM Blood Gas Notified Whom MA Blood Gas Respiration Rate 14.0 Blood Gas Specimen Source Blood arterial Blood Gas Temperature 37.0 Blood Gas Tidal Volume 500.0 FiO2 30.0 Oxyhemoglobin Percent 94.4 Total Hemoglobin 12.4 Medications Medications Current Medications Apixaban (Eliquis) 2.5 mg BID PO Last administered on 08/03/16 19:58; Admin Dose 2.5 MG; Start 07/18/16 at 21:00; Status Future Hold Aspirin (Halfprin) 81 mg DAILY PO Last administered on 08/05/16 09:06; Admin Dose 81 MG; Start 07/19/16 at 09:00; Status Future Hold Nitroglycerin (Nitroglycerin (Sl Tab) 0.4 Mg) 1 tab DAILY PRN SL CHEST PAIN; Start 07/18/16 at 15:30 Sucralfate (Carafate) 1 gm QID PO Last administered on 08/05/16 20:27; Admin Dose 1 GM; Start 07/18/16 at 17:00 Pantoprazole (Protonix Tab) 40 mg DAILY@06 PO Last administered on 08/05/16 06: 39; Admin Dose 40 MG; Start 07/19/16 at 06:00 Ondansetron HCl (Zofran Inj) 4 mg Q6H PRN IV NAUSEA AND/OR VOMITING Last administered on 08/05/16 23:48; Admin Dose 4 MG; Start 07/18/16 at 15:30 Acetaminophen (Tylenol Tab) 650 mg Q6H PRN PO PAIN LEVEL 1-3 OR FEVER Last administered on 08/02/16 15:25; Admin Dose 650 MG; Start 07/18/16 at 15:30 Acetaminophen (Tylenol Supp) 650 mg Q6H PRN [place] PAIN LEVEL 1-3 OR FEVER; Start 07/18/16 at 15:30 Docusate Sodium (Colace) 100 mg Q12H PRN PO CONSTIPATION Last administered on 20:19; Admin Dose 100 MG; Start 07/18/16 at 15:30 Magnesium Hydroxide (Milk Of Mag) 30 ml DAILY PRN PO CONSTIPATION Last administered on 07/28/16 23:03; Admin Dose 30 ML; Start 07/18/16 at 15:30 Bisacodyl (Dulcolax Supp) 10 mg DAILY PRN [place] CONSTIPATION; Start 07/18/16 at 15 :30 Miscellaneous Information 1 ea NOTE XX ; Start 07/18/16 at 17:30 Glucose (Glutose) 15 gm Q15M PRN PO DECREASED GLUCOSE; Start 07/18/16 at 17:30 Glucose (Glutose) 22.5 gm Q15M PRN PO DECREASED GLUCOSE; Start 07/18/16 at 17: 30 Dextrose (D50w Syringe) 25 ml Q15M PRN IV DECREASED GLUCOSE; Start 07/18/16 at 17:30 Dextrose (D50w Syringe) 50 ml Q15M PRN IV DECREASED GLUCOSE; Start 07/18/16 at 17:30 Glucagon (Glucagen) 1 mg Q15M PRN IM DECREASED GLUCOSE; Start 07/18/16 at 17:30 Glucose (Glutose) 15 gm Q15M PRN BUCCAL DECREASED GLUCOSE; Start 07/18/16 at 17 :30 Guaifenesin/ Codeine Phosphate (Robitussin Ac Liquid Cup) 10 ml Q4H PRN PO COUGH Last administered on 07/19/16 19:43; Admin Dose 10 ML; Start 07/18/16 at 23:30 Amiodarone HCl (Cordarone) 200 mg DAILY PO Last administered on 08/02/16 09:47 ; Admin Dose 200 MG; Start 07/20/16 at 09:00 Carvedilol (Coreg) 3.125 mg BID PO Last administered on 08/03/16 20:05; Admin Dose 3.125 MG; Start 07/24/16 at 09:00; Status Future Hold Isosorbide Dinitrate 10 mg 10 mg TID PO Last administered on 08/03/16 19:58; Admin Dose 10 MG; Start 07/30/16 at 21:00; Status Future Hold Norepinephrine 16 mg/Dextrose 500 ml @ 1.87 mls/hr TITRATE IV Last administered on 08/06/16 21:43; Admin Dose 43.12 MLS/HR; Start 08/06/16 at 07:00 Propofol 100 ml @ 2.055 mls/ hr Q12H IV Last administered on 08/08/16 05:57; Admin Dose 1.644 MLS/HR; Start 08/06/16 at 03:30 Vasopressin/ Dextrose (Vasostrict/D5W) 60 ml @ 1.2 mls/hr Q12H IV Last administered on 08/06/16 18:37; Admin Dose 0.9 MLS/HR; Start 08/06/16 at 03:30 Phytonadione (Vitamin K) 10 mg DAILY IM Last administered on 08/08/16 09:49; Admin Dose 10 MG; Start 08/06/16 at 14:30; Stop 08/08/16 at 14:29 Furosemide 40 mg 40 mg DAILY@06 IV Last administered on 08/08/16 05:41; Admin Dose 40 MG; Start 08/07/16 at 10:00 Piperacillin Sod/ Tazobactam Sod 50 ml @ 100 mls/hr Q8 IVPB Last administered on 08/08/16 05:41; Admin Dose 100 MLS/HR; Start 08/07/16 at 14:00 Sodium Chloride 1,000 ml @ 60 mls/hr [id number] IV Last administered on 06:39; Admin Dose 60 MLS/HR; Start 08/08/16 at 07:00 Potassium Chloride (KCl 20 MEQ/50 ML SW) 50 ml @ 25 mls/hr Q2H IVPB Last administered on 08/08/16 12:30; Admin Dose 25 MLS/HR; Start 08/08/16 at 09:30; Stop 08/08/16 at 13:29 Miscellaneous Information (*Rx Drug Level Order Reminder*) RANDOM VANCOMYCIN LEVEL 3... ONCE ONCE XX ; Start 08/09/16 at 05:00; Stop 08/09/16 at 05:01 POLI SAN Aug 08, 2016 13:13
[2016-08-08 14:05] LABS: ANISOCYTOSIS 2+; BURR CELLS FEW; POIKILOCYTOSIS 2+
[2016-08-08 14:06] LABS: OVALOCYTES FEW
[2016-08-08 14:07] LABS: ACANTHOCYTES FEW; SCHISTOCYTES OCCASIONAL
[2016-08-08 14:08] LABS: POLYCHROMASIA 1+
--- NOTE | 2016-08-08 19:15 | CONS ---
Date/Time of Note Date/Time of Note DATE: 08/08/16 TIME: 19:14 Assessment/Plan Assessment/Plan Chief Complaint/Hosp Course 1. Patient has acute on chronic renal failure with acute kidney injury due to systolic heart failure.ON HD 2. The patient has LOW EF now on vent 3. Anemia. 4. ASHD 5. Acute urinary tract infection.BETTER 6 LOW EF 7 hyperkalemia HX 8 afib 9 hematuria 10 vdrf PLAN CONTINUE per pulmonary HD PRN kcl labs Problems: Consultation Date/Type/Reason Admit Date/Time Jul 18, 2016 at 14:06 Type of Consultation: renal Referring Provider: MURIEL EWING 24 HR Interval Summary Constitutional: other (on vent) Exam/Review of Systems Vital Signs Vitals Vital Signs Date Time Temp Pulse Resp B/P Pulse Ox O2 Delivery O2 Flow Rate FiO2 08/08/16 18:15 70 104/45 100 08/08/16 18:00 22 08/08/16 17:30 30 08/08/16 16:00 98.6 08/08/16 12:00 Mechanical Ventilator 08/06/16 01:54 3.0 Intake and Output 08/07/16 08/07/16 08/08/16 15:00 23:00 07:00 Intake Total 757.84 ml 482.045 ml 626.305 ml Output Total 4300 ml 750 ml 380 ml Balance -3542.16 ml -267.955 ml 246.305 ml Exam Respiratory: diminished breath sounds Cardiovascular: regular rate and rhythm Gastrointestinal: soft Musculoskeletal: nl extremities to inspection Extremities: normal pulses Results Result Diagram: 08/08/16 0430 08/08/16 0430 Results 24 hrs Laboratory Tests Test 08/08/16 04:30 08/08/16 05:00 Acanthocytes FEW Activated Partial Thromboplast Time 61.7 H Anion Gap 15 Anisocytosis 2+ Band Neutrophils % 15.0 H Blood Urea Nitrogen 61 H Calcium Level 8.1 L Carbon Dioxide Level 26 Chloride Level 108 Creatinine 2.04 H Eosinophils # Eosinophils % Glucose Level 100 Hematocrit 37.8 L Hemoglobin 11.3 L INR International Normalized Ratio 2.77 Lymphocytes # 0.2 L Lymphocytes % 3.0 L Mean Corpuscular Hemoglobin 24.5 L Mean Corpuscular Hemoglobin Concent 29.9 L Mean Corpuscular Volume 82.0 Mean Platelet Volume 11.2 H Monocytes # 0.2 L Monocytes % 3.0 Neutrophils # 5.9 Neutrophils % 79.0 H Nucleated Red Blood Cells % 6.0 H Ovalocytes FEW Platelet Count 158 Poikilocytosis 2+ Polychromasia 1+ Potassium Level 2.9 *L Prothrombin Time 29.6 H Prothrombin Time Ratio 2.3 Red Blood Count 4.61 L Red Cell Distribution Width 23.0 H Schistocytes OCCASIONAL Sodium Level 146 H White Blood Count 7.5 # Arterial Blood HCO3 22.8 Arterial Blood Base Excess -0.4 Arterial Blood Oxygen Saturation 95.4 Sebastien Test ACCEPTAB Arterial Blood Gas Puncture Site Right Radial Arterial Blood Carboxyhemoglobin 0.7 Arterial Blood Date Drawn 08/08/2016 5:30:42 AM Arterial Blood Methemoglobin 0.4 Arterial Blood pCO2 (Temp correct) 32.9 L Arterial Blood pH (Temp corrected) 7.459 H Arterial Blood pO2 (Temp corrected) 79.7 L Blood Gas A-a O2 Differential 95.5 H Blood Gas Actual Respiration Rate 14 Blood Gas Low PEEP Setting 5.0 Blood Gas Modality VENT - AC Blood Gas Notified Time 08/08/2016 5:44:33 AM Blood Gas Notified Whom MA Blood Gas Respiration Rate 14.0 Blood Gas Specimen Source Blood arterial Blood Gas Temperature 37.0 Blood Gas Tidal Volume 500.0 FiO2 30.0 Oxyhemoglobin Percent 94.4 Total Hemoglobin 12.4 Medications Medications Current Medications Apixaban (Eliquis) 2.5 mg BID PO Last administered on 08/03/16 19:58; Admin Dose 2.5 MG; Start 07/18/16 at 21:00; Status Future Hold Aspirin (Halfprin) 81 mg DAILY PO Last administered on 08/05/16 09:06; Admin Dose 81 MG; Start 07/19/16 at 09:00; Status Future Hold Nitroglycerin (Nitroglycerin (Sl Tab) 0.4 Mg) 1 tab DAILY PRN SL CHEST PAIN; Start 07/18/16 at 15:30 Sucralfate (Carafate) 1 gm QID PO Last administered on 08/05/16 20:27; Admin Dose 1 GM; Start 07/18/16 at 17:00 Pantoprazole (Protonix Tab) 40 mg DAILY@06 PO Last administered on 08/05/16 06: 39; Admin Dose 40 MG; Start 07/19/16 at 06:00 Ondansetron HCl (Zofran Inj) 4 mg Q6H PRN IV NAUSEA AND/OR VOMITING Last administered on 08/05/16 23:48; Admin Dose 4 MG; Start 07/18/16 at 15:30 Acetaminophen (Tylenol Tab) 650 mg Q6H PRN PO PAIN LEVEL 1-3 OR FEVER Last administered on 08/02/16 15:25; Admin Dose 650 MG; Start 07/18/16 at 15:30 Acetaminophen (Tylenol Supp) 650 mg Q6H PRN [place] PAIN LEVEL 1-3 OR FEVER; Start 07/18/16 at 15:30 Docusate Sodium (Colace) 100 mg Q12H PRN PO CONSTIPATION Last administered on 20:19; Admin Dose 100 MG; Start 07/18/16 at 15:30 Magnesium Hydroxide (Milk Of Mag) 30 ml DAILY PRN PO CONSTIPATION Last administered on 07/28/16 23:03; Admin Dose 30 ML; Start 07/18/16 at 15:30 Bisacodyl (Dulcolax Supp) 10 mg DAILY PRN [place] CONSTIPATION; Start 07/18/16 at 15 :30 Miscellaneous Information 1 ea NOTE XX ; Start 07/18/16 at 17:30 Glucose (Glutose) 15 gm Q15M PRN PO DECREASED GLUCOSE; Start 07/18/16 at 17:30 Glucose (Glutose) 22.5 gm Q15M PRN PO DECREASED GLUCOSE; Start 07/18/16 at 17: 30 Dextrose (D50w Syringe) 25 ml Q15M PRN IV DECREASED GLUCOSE; Start 07/18/16 at 17:30 Dextrose (D50w Syringe) 50 ml Q15M PRN IV DECREASED GLUCOSE; Start 07/18/16 at 17:30 Glucagon (Glucagen) 1 mg Q15M PRN IM DECREASED GLUCOSE; Start 07/18/16 at 17:30 Glucose (Glutose) 15 gm Q15M PRN BUCCAL DECREASED GLUCOSE; Start 07/18/16 at 17 :30 Guaifenesin/ Codeine Phosphate (Robitussin Ac Liquid Cup) 10 ml Q4H PRN PO COUGH Last administered on 07/19/16 19:43; Admin Dose 10 ML; Start 07/18/16 at 23:30 Amiodarone HCl (Cordarone) 200 mg DAILY PO Last administered on 08/02/16 09:47 ; Admin Dose 200 MG; Start 07/20/16 at 09:00 Carvedilol (Coreg) 3.125 mg BID PO Last administered on 08/03/16 20:05; Admin Dose 3.125 MG; Start 07/24/16 at 09:00; Status Future Hold Isosorbide Dinitrate 10 mg 10 mg TID PO Last administered on 08/03/16 19:58; Admin Dose 10 MG; Start 07/30/16 at 21:00; Status Future Hold Norepinephrine 16 mg/Dextrose 500 ml @ 1.87 mls/hr TITRATE IV Last administered on 08/08/16 18:34; Admin Dose 7.5 MLS/HR; Start 08/06/16 at 07:00 Propofol 100 ml @ 2.055 mls/ hr Q12H IV Last administered on 08/08/16 18:35; Admin Dose 6.165 MLS/HR; Start 08/06/16 at 03:30 Vasopressin/ Dextrose (Vasostrict/D5W) 60 ml @ 1.2 mls/hr Q12H IV Last administered on 08/06/16 18:37; Admin Dose 0.9 MLS/HR; Start 08/06/16 at 03:30 Furosemide 40 mg 40 mg DAILY@06 IV Last administered on 08/08/16 05:41; Admin Dose 40 MG; Start 08/07/16 at 10:00 Piperacillin Sod/ Tazobactam Sod 50 ml @ 100 mls/hr Q8 IVPB Last administered on 08/08/16 14:31; Admin Dose 100 MLS/HR; Start 08/07/16 at 14:00 Sodium Chloride (1/2 NS) 1,000 ml @ 60 mls/hr [id number] IV Last administered on 08/08/16 06:39; Admin Dose 60 MLS/HR; Start 08/08/16 at 07:00 Miscellaneous Information (*Rx Drug Level Order Reminder*) RANDOM VANCOMYCIN LEVEL 3... ONCE ONCE XX ; Start 08/09/16 at 05:00; Stop 08/09/16 at 05:01 YANIRA HART MD Aug 08, 2016 19:15
[2016-08-08] MEDS ORDERED: HEPARIN 5,000 UNIT/0.5 ML SYG SC SCH (21:00)
[2016-08-09] VITALS (97 sets, daily range): BP systolic 77–123; BP diastolic 34–90; PULSE 61–75; RESP 12–21
[2016-08-09] MEDS: VASOPRESSIN 60 UNIT in DEXTROSE 5% 57 ML IV SCH ×2 (03:30→15:30)
[2016-08-09] MEDS: SOD CHLORIDE 0.45% 1,000 ML IV SCH ×2 (03:47→17:45)
[2016-08-09] MEDS: FUROSEMIDE 40 MG INJ IV SCH (05:47)
[2016-08-09] MEDS: PIPER-TAZO 2.25 GM (PMX) 50 ML IVPB SCH ×3 (05:47→22:45)
[2016-08-09 07:17] LABS: ADD SCAN DIFF NO
[2016-08-09 07:21] LABS: ABNORMAL IP MESSAGE 1; HEMOGLOBIN 11.2 g/dl (14.0-18.0); LYMPHOCYTES # 0.2 10^3/ul (0.8-2.9); LYMPHOCYTES % 3.6 % (15.0-51.0); MEAN CORPUSCULAR HEMOGLOBIN 25.1 pg (29.0-33.0); MEAN CORPUSCULAR HGB CONC 30.3 g/dl (32.0-37.0); MEAN PLATELET VOLUME 11.2 fl (7.4-10.4); MONOCYTE # 0.2 10^3/ul (0.3-0.9); MONOCYTES % 3.4 % (0.0-11.0); NEUTROPHIL # 4.9 10^3/ul (1.6-7.5); NEUTROPHILS % 92.4 % (39.0-77.0); NUCLEATED RED BLOOD CELLS # 0.1 10^3/ul (0.0-0.0); NUCLEATED RED BLOOD CELLS% 1.7 /100WBC (0.0-0.0); PLATELET COUNT 137 10^3/UL (140-415); RED BLOOD COUNT 4.46 10^6/ul (4.70-6.10); RED CELL DISTRIBUTION WIDTH 22.9 % (11.5-14.5); WHITE BLOOD COUNT 5.3 10^3/ul (4.8-10.8)
[2016-08-09 07:28] LABS: INR 2.06; PROTIME 23.4 Sec (12.2-14.2); PT RATIO 1.8
[2016-08-09 07:29] LABS: PARTIAL THROMBOPLASTIN TIME 56.4 Sec (25.0-35.0)
[2016-08-09 07:39] LABS: CALCIUM 8.3 mg/dl (8.4-10.2); CREATININE 2.05 mg/dl (0.61-1.24)
[2016-08-09] MEDS: SUCRALFATE 1 GM TAB PO SCH ×3 (09:00→17:45)
--- NOTE | 2016-08-09 11:18 | CONS ---
Date/Time of Note Date/Time of Note DATE: 08/09/16 TIME: 11:14 Assessment/Plan Assessment/Plan Additional Assessment/Plan Ventilator settings; SIMV of 12, tidal volume 500, pressure support 10, PEEP of 5, 30% FiO2. Next Assessment recommendations; 1. Patient admitted for severe congestive heart failure leading to respiratory failure with significant radiological and clinical improvement. 2. 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 3. History of cardiac arrhythmia. Patient currently in a paced rhythm. 4. Mild thrombocytopenia. 5. Renal insufficiency. Discontinue sedation. This was the patient to CPAP mode. Once the patient meets adequate weaning parameters he likely will be extubated. Meanwhile continue current treatment. Consultation Date/Type/Reason Admit Date/Time Jul 18, 2016 at 14:06 Initial Consult Date 08/06/16 Type of Consultation: Pulmonary/critical care Referring Provider: MURIEL EWING 24 HR Interval Summary Free Text/Dictation Patient's condition remains critical. Still requiring full ventilator support. She was given a sedation vacation yesterday and will switch over to CPAP mode however he could not handle that and had to be reverted back to SIMV mode. And had to be re-sedated. Despite being on small dose of propofol patient currently is completely awake and alert. Has remained hemodynamically stable. Exam/Review of Systems Vital Signs Vitals Vital Signs Date Time Temp Pulse Resp B/P Pulse Ox O2 Delivery O2 Flow Rate FiO2 08/09/16 10:45 67 103/43 100 08/09/16 10:00 12 Mechanical Ventilator 08/09/16 09:05 30 08/09/16 04:00 98.0 08/06/16 01:54 3.0 Intake and Output 08/08/16 08/08/16 08/09/16 15:00 23:00 07:00 Intake Total 707.51 ml 562.660 ml 398.040 ml Output Total 840 ml 540 ml 610 ml Balance -132.49 ml 22.660 ml -211.960 ml Exam H EENT exam is; supple neck, positive JVD. No lymphadenopathy. Midline trachea. Orally intubated. Patient has few remaining teeth which all appear quite carious. Pupils are midsize reactive to light bilaterally. Chest examination : diminished but clear breath sounds bilaterally. There is well-healed sternal scar. Pacemaker in the left chest wall. Abdomen; soft, nontender. No organomegaly. Bowel sounds audible. Extremity exam is; no peripheral edema. 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 Results Result Diagram: 08/09/16 0600 08/09/16 0600 Results 24 hrs Laboratory Tests Test 08/09/16 06:00 Activated Partial Thromboplast Time 56.4 H Anion Gap 14 Basophils # 0.0 Basophils % 0.0 Blood Urea Nitrogen 69 H Calcium Level 8.3 L Carbon Dioxide Level 28 Chloride Level 108 Creatinine 2.05 H Eosinophils # 0.0 Eosinophils % 0.0 Glucose Level 90 Hematocrit 37.0 L Hemoglobin 11.2 L INR International Normalized Ratio 2.06 Lymphocytes # 0.2 L Lymphocytes % 3.6 L Mean Corpuscular Hemoglobin 25.1 L Mean Corpuscular Hemoglobin Concent 30.3 L Mean Corpuscular Volume 83.0 Mean Platelet Volume 11.2 H Monocytes # 0.2 L Monocytes % 3.4 Neutrophils # 4.9 Neutrophils % 92.4 H Nucleated Red Blood Cells # 0.1 H Nucleated Red Blood Cells % 1.7 H Platelet Count 137 L Potassium Level 3.0 L Prothrombin Time 23.4 #H Prothrombin Time Ratio 1.8 Random Vancomycin Level 7.0 Red Blood Count 4.46 L Red Cell Distribution Width 22.9 H Sodium Level 147 H White Blood Count 5.3 # Medications Medications Current Medications Apixaban (Eliquis) 2.5 mg BID PO Last administered on 08/03/16 19:58; Admin Dose 2.5 MG; Start 07/18/16 at 21:00; Status Future Hold Aspirin (Halfprin) 81 mg DAILY PO Last administered on 08/05/16 09:06; Admin Dose 81 MG; Start 07/19/16 at 09:00; Status Future Hold Nitroglycerin (Nitroglycerin (Sl Tab) 0.4 Mg) 1 tab DAILY PRN SL CHEST PAIN; Start 07/18/16 at 15:30 Sucralfate (Carafate) 1 gm QID PO Last administered on 08/05/16 20:27; Admin Dose 1 GM; Start 07/18/16 at 17:00 Ondansetron HCl (Zofran Inj) 4 mg Q6H PRN IV NAUSEA AND/OR VOMITING Last administered on 08/05/16 23:48; Admin Dose 4 MG; Start 07/18/16 at 15:30 Acetaminophen (Tylenol Tab) 650 mg Q6H PRN PO PAIN LEVEL 1-3 OR FEVER Last administered on 08/02/16 15:25; Admin Dose 650 MG; Start 07/18/16 at 15:30 Acetaminophen (Tylenol Supp) 650 mg Q6H PRN [place] PAIN LEVEL 1-3 OR FEVER; Start 07/18/16 at 15:30 Docusate Sodium (Colace) 100 mg Q12H PRN PO CONSTIPATION Last administered on 20:19; Admin Dose 100 MG; Start 07/18/16 at 15:30 Magnesium Hydroxide (Milk Of Mag) 30 ml DAILY PRN PO CONSTIPATION Last administered on 07/28/16 23:03; Admin Dose 30 ML; Start 07/18/16 at 15:30 Bisacodyl (Dulcolax Supp) 10 mg DAILY PRN [place] CONSTIPATION; Start 07/18/16 at 15 :30 Miscellaneous Information 1 ea NOTE XX ; Start 07/18/16 at 17:30 Glucose (Glutose) 15 gm Q15M PRN PO DECREASED GLUCOSE; Start 07/18/16 at 17:30 Glucose (Glutose) 22.5 gm Q15M PRN PO DECREASED GLUCOSE; Start 07/18/16 at 17: 30 Dextrose (D50w Syringe) 25 ml Q15M PRN IV DECREASED GLUCOSE; Start 07/18/16 at 17:30 Dextrose (D50w Syringe) 50 ml Q15M PRN IV DECREASED GLUCOSE; Start 07/18/16 at 17:30 Glucagon (Glucagen) 1 mg Q15M PRN IM DECREASED GLUCOSE; Start 07/18/16 at 17:30 Glucose (Glutose) 15 gm Q15M PRN BUCCAL DECREASED GLUCOSE; Start 07/18/16 at 17 :30 Guaifenesin/ Codeine Phosphate (Robitussin Ac Liquid Cup) 10 ml Q4H PRN PO COUGH Last administered on 07/19/16 19:43; Admin Dose 10 ML; Start 07/18/16 at 23:30 Amiodarone HCl (Cordarone) 200 mg DAILY PO Last administered on 08/02/16 09:47 ; Admin Dose 200 MG; Start 07/20/16 at 09:00 Carvedilol (Coreg) 3.125 mg BID PO Last administered on 08/03/16 20:05; Admin Dose 3.125 MG; Start 07/24/16 at 09:00; Status Future Hold Isosorbide Dinitrate 10 mg 10 mg TID PO Last administered on 08/03/16 19:58; Admin Dose 10 MG; Start 07/30/16 at 21:00; Status Future Hold Norepinephrine 16 mg/Dextrose 500 ml @ 1.87 mls/hr TITRATE IV Last administered on 08/08/16 18:34; Admin Dose 7.5 MLS/HR; Start 08/06/16 at 07:00 Propofol 100 ml @ 2.055 mls/ hr Q12H IV Last administered on 08/08/16 18:35; Admin Dose 6.165 MLS/HR; Start 08/06/16 at 03:30 Vasopressin/ Dextrose (Vasostrict/D5W) 60 ml @ 1.2 mls/hr Q12H IV Last administered on 08/06/16 18:37; Admin Dose 0.9 MLS/HR; Start 08/06/16 at 03:30 Furosemide 40 mg 40 mg DAILY@06 IV Last administered on 08/09/16 05:47; Admin Dose 40 MG; Start 08/07/16 at 10:00 Piperacillin Sod/ Tazobactam Sod 50 ml @ 100 mls/hr Q8 IVPB Last administered on 08/09/16 05:47; Admin Dose 100 MLS/HR; Start 08/07/16 at 14:00 Sodium Chloride 1,000 ml @ 60 mls/hr [id number] IV Last administered on 03:47; Admin Dose 60 MLS/HR; Start 08/08/16 at 07:00 Vancomycin HCl/ Sodium Chloride (Vancocin/NS) 250 ml @ 83.333 mls/ hr 12 IVPB ; Start 08/09/16 at 12:00; Stop 08/09/16 at 23:00 Pantoprazole (Protonix Iv) 40 mg DAILY@06 IV ; Start 08/10/16 at 06:00 Insulin Aspart (Novolog Insulin Pen) NOVOLOG *MILD* ALGORI... Q4 SC ; Start 05/16 at 13:00 ADAMARIS RAMIREZ 12, 2017 11:18
[2016-08-09] MEDS ORDERED: VANCOMYCIN 1.25 GM in SOD CHLORIDE 0.9% 250 ML IVPB SCH (12:00)
[2016-08-09] MEDS: INSULIN ASPART [NOVOLOG] 3 ML PEN SC SCH ×3 (13:00→20:20)
--- NOTE | 2016-08-09 13:18 | CONS ---
Date/Time of Note Date/Time of Note DATE: 08/09/16 TIME: 13:15 Assessment/Plan Assessment/Plan Chief Complaint/Hosp Course IMPRESSION: 1. Congestive heart failure exacerbation, systolic, acute on chronic. EF 25% by most recent echo-worsening. Minimally + troponin after cardiac arrest 2. Resp failure s/p intubation 3. Hypotension/shock-on levo and vasopressin 3. History of coronary artery bypass graft surgery. 4. Abnormal electrocardiogram . MIldly postive trop after cardiac arrest 5. History of paroxysmal atrial fibrillation-apixaban held due to coagulopathy 6. Acute on chronic renal failure-Now on HD 8. Anemia, mild. 9. 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 -Apixaban and asa held given coagulopathy which is improving s/p vitamin K -Wean Levo as tolerated -Wean vent as tolerated Problems: Consultation Date/Type/Reason Admit Date/Time Jul 18, 2016 at 14:06 Initial Consult Date 07/19/2016 Type of Consultation: Cardiology Reason for Consultation CHF Referring Provider: MURIEL EWING Exam/Review of Systems Vital Signs Vitals Vital Signs Date Time Temp Pulse Resp B/P Pulse Ox O2 Delivery O2 Flow Rate FiO2 08/09/16 11:31 67 19 100 30 08/09/16 10:45 103/43 08/09/16 10:00 Mechanical Ventilator 08/09/16 04:00 98.0 08/06/16 01:54 3.0 Intake and Output 08/08/16 08/08/16 08/09/16 15:00 23:00 07:00 Intake Total 707.51 ml 562.660 ml 398.040 ml Output Total 840 ml 540 ml 610 ml Balance -132.49 ml 22.660 ml -211.960 ml Exam Review of Systems: CONSTITUTIONAL: No fevers, chills. PULMONARY: intubated CARDIOVASCULAR: No obvious chest pain/palpitations GASTROINTESTINAL: No nausea/vomiting. GENITOURINARY: No hematuria/dysuria. MUSCULOSKELETAL: No obvious myagias/arthalgias. PSYCHIATRIC: No documented depression. NEUROLOGIC: sedated Constitutional: other (sedated) ENMT: intubated Neck: jvd (9 cm water), supple Respiratory: diminished breath sounds (at bases/B) Cardiovascular: regular rate and rhythm Gastrointestinal: non-tender, soft Musculoskeletal: muscle weakness (generalized) Extremities: edema (None) Neurological: other (sedated) Results Result Diagram: 08/09/16 0600 08/09/16 0600 Results 24 hrs Laboratory Tests Test 08/09/16 06:00 Activated Partial Thromboplast Time 56.4 H Anion Gap 14 Basophils # 0.0 Basophils % 0.0 Blood Urea Nitrogen 69 H Calcium Level 8.3 L Carbon Dioxide Level 28 Chloride Level 108 Creatinine 2.05 H Eosinophils # 0.0 Eosinophils % 0.0 Glucose Level 90 Hematocrit 37.0 L Hemoglobin 11.2 L INR International Normalized Ratio 2.06 Lymphocytes # 0.2 L Lymphocytes % 3.6 L Mean Corpuscular Hemoglobin 25.1 L Mean Corpuscular Hemoglobin Concent 30.3 L Mean Corpuscular Volume 83.0 Mean Platelet Volume 11.2 H Monocytes # 0.2 L Monocytes % 3.4 Neutrophils # 4.9 Neutrophils % 92.4 H Nucleated Red Blood Cells # 0.1 H Nucleated Red Blood Cells % 1.7 H Platelet Count 137 L Potassium Level 3.0 L Prothrombin Time 23.4 #H Prothrombin Time Ratio 1.8 Random Vancomycin Level 7.0 Red Blood Count 4.46 L Red Cell Distribution Width 22.9 H Sodium Level 147 H White Blood Count 5.3 # Medications Medications Current Medications Apixaban (Eliquis) 2.5 mg BID PO Last administered on 08/03/16 19:58; Admin Dose 2.5 MG; Start 07/18/16 at 21:00; Status Future Hold Aspirin (Halfprin) 81 mg DAILY PO Last administered on 08/05/16 09:06; Admin Dose 81 MG; Start 07/19/16 at 09:00; Status Future Hold Nitroglycerin (Nitroglycerin (Sl Tab) 0.4 Mg) 1 tab DAILY PRN SL CHEST PAIN; Start 07/18/16 at 15:30 Sucralfate (Carafate) 1 gm QID PO Last administered on 08/05/16 20:27; Admin Dose 1 GM; Start 07/18/16 at 17:00 Ondansetron HCl (Zofran Inj) 4 mg Q6H PRN IV NAUSEA AND/OR VOMITING Last administered on 08/05/16 23:48; Admin Dose 4 MG; Start 07/18/16 at 15:30 Acetaminophen (Tylenol Tab) 650 mg Q6H PRN PO PAIN LEVEL 1-3 OR FEVER Last administered on 08/02/16 15:25; Admin Dose 650 MG; Start 07/18/16 at 15:30 Acetaminophen (Tylenol Supp) 650 mg Q6H PRN [place] PAIN LEVEL 1-3 OR FEVER; Start 07/18/16 at 15:30 Docusate Sodium (Colace) 100 mg Q12H PRN PO CONSTIPATION Last administered on 20:19; Admin Dose 100 MG; Start 07/18/16 at 15:30 Magnesium Hydroxide (Milk Of Mag) 30 ml DAILY PRN PO CONSTIPATION Last administered on 07/28/16 23:03; Admin Dose 30 ML; Start 07/18/16 at 15:30 Bisacodyl (Dulcolax Supp) 10 mg DAILY PRN [place] CONSTIPATION; Start 07/18/16 at 15 :30 Miscellaneous Information 1 ea NOTE XX ; Start 07/18/16 at 17:30 Glucose (Glutose) 15 gm Q15M PRN PO DECREASED GLUCOSE; Start 07/18/16 at 17:30 Glucose (Glutose) 22.5 gm Q15M PRN PO DECREASED GLUCOSE; Start 07/18/16 at 17: 30 Dextrose (D50w Syringe) 25 ml Q15M PRN IV DECREASED GLUCOSE; Start 07/18/16 at 17:30 Dextrose (D50w Syringe) 50 ml Q15M PRN IV DECREASED GLUCOSE; Start 07/18/16 at 17:30 Glucagon (Glucagen) 1 mg Q15M PRN IM DECREASED GLUCOSE; Start 07/18/16 at 17:30 Glucose (Glutose) 15 gm Q15M PRN BUCCAL DECREASED GLUCOSE; Start 07/18/16 at 17 :30 Guaifenesin/ Codeine Phosphate (Robitussin Ac Liquid Cup) 10 ml Q4H PRN PO COUGH Last administered on 07/19/16 19:43; Admin Dose 10 ML; Start 07/18/16 at 23:30 Amiodarone HCl (Cordarone) 200 mg DAILY PO Last administered on 08/02/16 09:47 ; Admin Dose 200 MG; Start 07/20/16 at 09:00 Carvedilol (Coreg) 3.125 mg BID PO Last administered on 08/03/16 20:05; Admin Dose 3.125 MG; Start 07/24/16 at 09:00; Status Future Hold Isosorbide Dinitrate 10 mg 10 mg TID PO Last administered on 08/03/16 19:58; Admin Dose 10 MG; Start 07/30/16 at 21:00; Status Future Hold Propofol 100 ml @ 2.055 mls/ hr Q12H IV Last administered on 08/08/16 18:35; Admin Dose 6.165 MLS/HR; Start 08/06/16 at 03:30 Vasopressin/ Dextrose (Vasostrict/D5W) 60 ml @ 1.2 mls/hr Q12H IV Last administered on 08/06/16 18:37; Admin Dose 0.9 MLS/HR; Start 08/06/16 at 03:30 Furosemide 40 mg 40 mg DAILY@06 IV Last administered on 08/09/16 05:47; Admin Dose 40 MG; Start 08/07/16 at 10:00 Piperacillin Sod/ Tazobactam Sod 50 ml @ 100 mls/hr Q8 IVPB Last administered on 08/09/16 05:47; Admin Dose 100 MLS/HR; Start 08/07/16 at 14:00 Sodium Chloride 1,000 ml @ 60 mls/hr [id number] IV Last administered on 03:47; Admin Dose 60 MLS/HR; Start 08/08/16 at 07:00 Vancomycin HCl/ Sodium Chloride (Vancocin/NS) 250 ml @ 83.333 mls/ hr 12 IVPB ; Start 08/09/16 at 12:00; Stop 08/09/16 at 23:00 Pantoprazole (Protonix Iv) 40 mg DAILY@06 IV ; Start 08/10/16 at 06:00 Insulin Aspart NOVOLOG *MILD* ALGORI... Q4 SC ; Start 08/09/16 at 13:00 Norepinephrine/ Dextrose (Levophed/D5W) 500 ml @ 1.87 mls/hr TITRATE IV ; Start 08/09/16 at 13:30; Status POLI PRESCOTT 12, 2017 13:18
[2016-08-09] MEDS ORDERED: POTASSIUM CHLORIDE 250 ML IVPB ONE (13:30)
[2016-08-09] MEDS ORDERED: AMIODARONE 200 MG TAB NGT SCH (14:53)
[2016-08-09] MEDS: PROPOFOL 100 ML IV SCH (15:31)
--- NOTE | 2016-08-09 17:20 | CONS ---
Date/Time of Note Date/Time of Note DATE: 08/09/16 TIME: 17:20 Assessment/Plan Assessment/Plan Chief Complaint/Hosp Course 1. Patient has acute on chronic renal failure with acute kidney injury due to systolic heart failure.ON HD 2. The patient has LOW EF now on vent 3. Anemia. 4. ASHD 5. 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 PLAN CONTINUE per pulmonary HD PRN kcl labs Problems: Consultation Date/Type/Reason Admit Date/Time Jul 18, 2016 at 14:06 Type of Consultation: RENAL Referring Provider: MURIEL EWING 24 HR Interval Summary Constitutional: no complaints, other (ON VENT) Exam/Review of Systems Vital Signs Vitals Vital Signs Date Time Temp Pulse Resp B/P Pulse Ox O2 Delivery O2 Flow Rate FiO2 08/09/16 16:55 67 13 100 30 08/09/16 16:15 101/49 08/09/16 16:00 Mechanical Ventilator 08/09/16 04:00 98.0 08/06/16 01:54 3.0 Intake and Output 08/08/16 08/08/16 08/09/16 15:00 23:00 07:00 Intake Total 707.51 ml 562.660 ml 398.040 ml Output Total 840 ml 540 ml 610 ml Balance -132.49 ml 22.660 ml -211.960 ml Exam Respiratory: diminished breath sounds Cardiovascular: regular rate and rhythm Gastrointestinal: soft Musculoskeletal: nl extremities to inspection Results Result Diagram: 08/09/16 0600 08/09/16 0600 Results 24 hrs Laboratory Tests Test 08/09/16 06:00 08/09/16 13:45 08/09/16 13:49 Activated Partial Thromboplast Time 56.4 H Anion Gap 14 Basophils # 0.0 Basophils % 0.0 Blood Urea Nitrogen 69 H Calcium Level 8.3 L Carbon Dioxide Level 28 Chloride Level 108 Creatinine 2.05 H Eosinophils # 0.0 Eosinophils % 0.0 Glucose Level 90 Hematocrit 37.0 L Hemoglobin 11.2 L INR International Normalized Ratio 2.06 Lymphocytes # 0.2 L Lymphocytes % 3.6 L Mean Corpuscular Hemoglobin 25.1 L Mean Corpuscular Hemoglobin Concent 30.3 L Mean Corpuscular Volume 83.0 Mean Platelet Volume 11.2 H Monocytes # 0.2 L Monocytes % 3.4 Neutrophils # 4.9 Neutrophils % 92.4 H Nucleated Red Blood Cells # 0.1 H Nucleated Red Blood Cells % 1.7 H Platelet Count 137 L Potassium Level 3.0 L Prothrombin Time 23.4 #H Prothrombin Time Ratio 1.8 Random Vancomycin Level 7.0 Red Blood Count 4.46 L Red Cell Distribution Width 22.9 H Sodium Level 147 H White Blood Count 5.3 # Magnesium Level 1.9 Bedside Glucose 81 Medications Medications Current Medications Apixaban (Eliquis) 2.5 mg BID PO Last administered on 08/03/16 19:58; Admin Dose 2.5 MG; Start 07/18/16 at 21:00; Status Future Hold Aspirin (Halfprin) 81 mg DAILY PO Last administered on 08/05/16 09:06; Admin Dose 81 MG; Start 07/19/16 at 09:00; Status Future Hold Nitroglycerin (Nitroglycerin (Sl Tab) 0.4 Mg) 1 tab DAILY PRN SL CHEST PAIN; Start 07/18/16 at 15:30 Sucralfate (Carafate) 1 gm QID PO Last administered on 08/05/16 20:27; Admin Dose 1 GM; Start 07/18/16 at 17:00 Ondansetron HCl (Zofran Inj) 4 mg Q6H PRN IV NAUSEA AND/OR VOMITING Last administered on 08/05/16 23:48; Admin Dose 4 MG; Start 07/18/16 at 15:30 Acetaminophen (Tylenol Tab) 650 mg Q6H PRN PO PAIN LEVEL 1-3 OR FEVER Last administered on 08/02/16 15:25; Admin Dose 650 MG; Start 07/18/16 at 15:30 Acetaminophen (Tylenol Supp) 650 mg Q6H PRN [place] PAIN LEVEL 1-3 OR FEVER; Start 07/18/16 at 15:30 Docusate Sodium (Colace) 100 mg Q12H PRN PO CONSTIPATION Last administered on 20:19; Admin Dose 100 MG; Start 07/18/16 at 15:30 Magnesium Hydroxide (Milk Of Mag) 30 ml DAILY PRN PO CONSTIPATION Last administered on 07/28/16 23:03; Admin Dose 30 ML; Start 07/18/16 at 15:30 Bisacodyl (Dulcolax Supp) 10 mg DAILY PRN [place] CONSTIPATION; Start 07/18/16 at 15 :30 Miscellaneous Information 1 ea NOTE XX ; Start 07/18/16 at 17:30 Glucose (Glutose) 15 gm Q15M PRN PO DECREASED GLUCOSE; Start 07/18/16 at 17:30 Glucose (Glutose) 22.5 gm Q15M PRN PO DECREASED GLUCOSE; Start 07/18/16 at 17: 30 Dextrose (D50w Syringe) 25 ml Q15M PRN IV DECREASED GLUCOSE; Start 07/18/16 at 17:30 Dextrose (D50w Syringe) 50 ml Q15M PRN IV DECREASED GLUCOSE; Start 07/18/16 at 17:30 Glucagon (Glucagen) 1 mg Q15M PRN IM DECREASED GLUCOSE; Start 07/18/16 at 17:30 Glucose (Glutose) 15 gm Q15M PRN BUCCAL DECREASED GLUCOSE; Start 07/18/16 at 17 :30 Guaifenesin/ Codeine Phosphate (Robitussin Ac Liquid Cup) 10 ml Q4H PRN PO COUGH Last administered on 07/19/16 19:43; Admin Dose 10 ML; Start 07/18/16 at 23:30 Carvedilol (Coreg) 3.125 mg BID PO Last administered on 08/03/16 20:05; Admin Dose 3.125 MG; Start 07/24/16 at 09:00; Status Future Hold Isosorbide Dinitrate 10 mg 10 mg TID PO Last administered on 08/03/16 19:58; Admin Dose 10 MG; Start 07/30/16 at 21:00; Status Future Hold Propofol 100 ml @ 2.055 mls/ hr Q12H IV Last administered on 08/09/16 15:31; Admin Dose 8.22 MLS/HR; Start 08/06/16 at 03:30 Vasopressin/ Dextrose (Vasostrict/D5W) 60 ml @ 1.2 mls/hr Q12H IV Last administered on 08/06/16 18:37; Admin Dose 0.9 MLS/HR; Start 08/06/16 at 03:30 Furosemide 40 mg 40 mg DAILY@06 IV Last administered on 08/09/16 05:47; Admin Dose 40 MG; Start 08/07/16 at 10:00 Piperacillin Sod/ Tazobactam Sod 50 ml @ 100 mls/hr Q8 IVPB Last administered on 08/09/16 15:00; Admin Dose 100 MLS/HR; Start 08/07/16 at 14:00 Sodium Chloride 1,000 ml @ 60 mls/hr [id number] IV Last administered on 03:47; Admin Dose 60 MLS/HR; Start 08/08/16 at 07:00 Vancomycin HCl/ Sodium Chloride (Vancocin/NS) 250 ml @ 83.333 mls/ hr 12 IVPB Last administered on 08/09/16 12:58; Admin Dose 83.333 MLS/HR; Start 08/09/16 at 12:00; Stop 08/09/16 at 23:00 Pantoprazole (Protonix Iv) 40 mg DAILY@06 IV ; Start 08/10/16 at 06:00 Insulin Aspart NOVOLOG *MILD* ALGORI... Q4 SC ; Start 08/09/16 at 13:00 Norepinephrine 16 mg/Dextrose 500 ml @ 1.87 mls/hr TITRATE IV ; Start 08/09/16 at 13:30 Potassium Chloride (KCl 40 MEQ/250 ML NS) 250 ml @ 62.5 mls/hr ONCE ONCE IVPB Last administered on 08/09/16 15:32; Admin Dose 62.5 MLS/HR; Start 08/09/16 at 13:30; Stop 08/09/16 at 17:29 Amiodarone HCl (Cordarone) 200 mg DAILY NGT ; Start 08/10/16 at 21:00 YANIRA HART MD Aug 09, 2016 17:20
--- NOTE | 2016-08-09 17:24 | RADRPT ---
PROCEDURE: XR Abdomen. CLINICAL INDICATION: Abdomen pain. TECHNIQUE: AP supine abdomen x-ray. COMPARISON: Chest x-ray dated 08/07/2016. FINDINGS: There is a new nasogastric tube with the tip in the first part of the duodenum. There is a permanen t pacemaker/internal cardiac defibrillator. A Gan catheter is present in the bladder. A triple-kapil men catheter is present in the left femoral region and a temporary dialysis catheter is entering via the right common femoral vein with the tip in the right common iliac artery. The bowel gas pattern is normal with no evidence of obstruction. There is a 0.4 cm calcification overlying the right kidney superiorly, a 0.3 cm calcification overly ing the right kidney inferiorly, and a 1.0 cm calcification overlying the left kidney inferiorly. The osseus structures are unremarkable. IMPRESSION: 1. Nasogastric tube tip in the first part of the duodenum. 2. Permanent pacemaker/internal cardiac defibrillator. 3. Gan catheter. 4. Triple-lumen catheter in the left femoral region. 5. Right common femoral vein temporary dialysis catheter. 6. No evidence of bowel obstruction. 7. Bilateral renal calculi. RPTAT: QQ .Eugenio Ruano MD, MD Date Time Electronically viewed and signed by .Eugenio Ruano MD, MD on 08/09/2016 17:23 .R/
[2016-08-09] MEDS: AMIODARONE 200 MG TAB NGT SCH (20:20)
[2016-08-09] MEDS: SUCRALFATE 1 GM TAB NGT SCH (20:21)
--- NOTE | 2016-08-09 21:37 | PN ---
Date/Time of Note Date/Time of Note DATE: 08/09/16 TIME: 21:34 Assessment/Plan VTE Prophylaxis VTE Prophylaxis Intervention: heparin Lines/Catheters IV Catheter Type (from Nrsg): Central Line Central line still needed: Yes (Dialysis catheter ) Urinary Cath still in place: Yes Reason Cath still needed: other (indicate) Assessment/Plan Assessment/Plan 1. Acute Resp failure intubated on ventilator due to Pulmonary edema and possible aspiration 2. Acute on chronic congestive heart failure on Lasix 2. 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 Type 2 diabetes. 4. Atrial fibrillation, rate controlled 5. History of CAD status post CABG 6. Acute on likely chronic kidney disease 2/2 cardiorenal syndorme- did not improve, s/p Fidel catheter placement on 08/01/16- Started on HD by hot molder Dr.Balbir Lamar- Plan: Pulmonary has been following- pt is intubated for acute pulmonary edema,- currently on weaning trial KCL has been replaced by , HD per nephrology, Appreciate nephrology help ,his metolazone has been stopped since yesterday, currently on IV lasix 40mg daily IV abx zosyn and vancomycin to cover him for PNA pt is also on Isordil, coreg- cardiology following BP stable Heparin for DVT prophylaxis Subjective 24 Hr Interval Summary Free Text/Dictation pt remains intubated, plan for NG tube and to start tube feeding Exam/Review of Systems Vital Signs Vitals Vital Signs Date Time Temp Pulse Resp B/P Pulse Ox O2 Delivery O2 Flow Rate FiO2 08/09/16 21:00 64 12 104/46 100 Mechanical Ventilator 08/09/16 20:00 98.1 08/09/16 20:00 30 08/06/16 01:54 3.0 Intake and Output 08/08/16 08/08/16 08/09/16 15:00 23:00 07:00 Intake Total 707.51 ml 562.660 ml 398.040 ml Output Total 840 ml 540 ml 610 ml Balance -132.49 ml 22.660 ml -211.960 ml Exam intubated, sedated HEENT: NARENDRA< EOMI, ET tube NECK: supple, no JVD HEART: S1 S2 RRR no murmur LUNG: bilateral crackles, no wheezing ABD: soft, NT EXT: 2_3 + edema Results Result Diagram: 08/09/16 0600 08/09/16 0600 Results 24 hrs Laboratory Tests Test 08/09/16 06:00 08/09/16 13:45 08/09/16 13:49 08/09/16 17:47 Activated Partial Thromboplast Time 56.4 H Anion Gap 14 Basophils # 0.0 Basophils % 0.0 Blood Urea Nitrogen 69 H Calcium Level 8.3 L Carbon Dioxide Level 28 Chloride Level 108 Creatinine 2.05 H Eosinophils # 0.0 Eosinophils % 0.0 Glucose Level 90 Hematocrit 37.0 L Hemoglobin 11.2 L INR International Normalized Ratio 2.06 Lymphocytes # 0.2 L Lymphocytes % 3.6 L Mean Corpuscular Hemoglobin 25.1 L Mean Corpuscular Hemoglobin Concent 30.3 L Mean Corpuscular Volume 83.0 Mean Platelet Volume 11.2 H Monocytes # 0.2 L Monocytes % 3.4 Neutrophils # 4.9 Neutrophils % 92.4 H Nucleated Red Blood Cells # 0.1 H Nucleated Red Blood Cells % 1.7 H Platelet Count 137 L Potassium Level 3.0 L Prothrombin Time 23.4 #H Prothrombin Time Ratio 1.8 Random Vancomycin Level 7.0 Red Blood Count 4.46 L Red Cell Distribution Width 22.9 H Sodium Level 147 H White Blood Count 5.3 # Magnesium Level 1.9 Bedside Glucose 81 85 Test 08/09/16 20:13 Bedside Glucose 95 Medications Medications Current Medications Apixaban (Eliquis) 2.5 mg BID PO Last administered on 08/03/16 19:58; Admin Dose 2.5 MG; Start 07/18/16 at 21:00; Status Future Hold Aspirin (Halfprin) 81 mg DAILY PO Last administered on 08/05/16 09:06; Admin Dose 81 MG; Start 07/19/16 at 09:00; Status Future Hold Nitroglycerin (Nitroglycerin (Sl Tab) 0.4 Mg) 1 tab DAILY PRN SL CHEST PAIN; Start 07/18/16 at 15:30 Ondansetron HCl (Zofran Inj) 4 mg Q6H PRN IV NAUSEA AND/OR VOMITING Last administered on 08/05/16 23:48; Admin Dose 4 MG; Start 07/18/16 at 15:30 Acetaminophen (Tylenol Tab) 650 mg Q6H PRN PO PAIN LEVEL 1-3 OR FEVER Last administered on 08/02/16 15:25; Admin Dose 650 MG; Start 07/18/16 at 15:30 Acetaminophen (Tylenol Supp) 650 mg Q6H PRN [place] PAIN LEVEL 1-3 OR FEVER; Start 07/18/16 at 15:30 Docusate Sodium (Colace) 100 mg Q12H PRN PO CONSTIPATION Last administered on 20:19; Admin Dose 100 MG; Start 07/18/16 at 15:30 Magnesium Hydroxide (Milk Of Mag) 30 ml DAILY PRN PO CONSTIPATION Last administered on 07/28/16 23:03; Admin Dose 30 ML; Start 07/18/16 at 15:30 Bisacodyl (Dulcolax Supp) 10 mg DAILY PRN [place] CONSTIPATION; Start 07/18/16 at 15 :30 Miscellaneous Information 1 ea NOTE XX ; Start 07/18/16 at 17:30 Glucose (Glutose) 15 gm Q15M PRN PO DECREASED GLUCOSE; Start 07/18/16 at 17:30 Glucose (Glutose) 22.5 gm Q15M PRN PO DECREASED GLUCOSE; Start 07/18/16 at 17: 30 Dextrose (D50w Syringe) 25 ml Q15M PRN IV DECREASED GLUCOSE; Start 07/18/16 at 17:30 Dextrose (D50w Syringe) 50 ml Q15M PRN IV DECREASED GLUCOSE; Start 07/18/16 at 17:30 Glucagon (Glucagen) 1 mg Q15M PRN IM DECREASED GLUCOSE; Start 07/18/16 at 17:30 Glucose (Glutose) 15 gm Q15M PRN BUCCAL DECREASED GLUCOSE; Start 07/18/16 at 17 :30 Guaifenesin/ Codeine Phosphate (Robitussin Ac Liquid Cup) 10 ml Q4H PRN PO COUGH Last administered on 07/19/16 19:43; Admin Dose 10 ML; Start 07/18/16 at 23:30 Carvedilol (Coreg) 3.125 mg BID PO Last administered on 08/03/16 20:05; Admin Dose 3.125 MG; Start 07/24/16 at 09:00; Status Future Hold Isosorbide Dinitrate 10 mg 10 mg TID PO Last administered on 08/03/16 19:58; Admin Dose 10 MG; Start 07/30/16 at 21:00; Status Future Hold Propofol 100 ml @ 2.055 mls/ hr Q12H IV Last administered on 08/09/16 15:31; Admin Dose 8.22 MLS/HR; Start 08/06/16 at 03:30 Vasopressin/ Dextrose (Vasostrict/D5W) 60 ml @ 1.2 mls/hr Q12H IV Last administered on 08/06/16 18:37; Admin Dose 0.9 MLS/HR; Start 08/06/16 at 03:30 Furosemide 40 mg 40 mg DAILY@06 IV Last administered on 08/09/16 05:47; Admin Dose 40 MG; Start 08/07/16 at 10:00 Piperacillin Sod/ Tazobactam Sod 50 ml @ 100 mls/hr Q8 IVPB Last administered on 08/09/16 15:00; Admin Dose 100 MLS/HR; Start 08/07/16 at 14:00 Sodium Chloride 1,000 ml @ 60 mls/hr [id number] IV Last administered on 17:45; Admin Dose 60 MLS/HR; Start 08/08/16 at 07:00 Vancomycin HCl/ Sodium Chloride (Vancocin/NS) 250 ml @ 83.333 mls/ hr 12 IVPB Last administered on 08/09/16 12:58; Admin Dose 83.333 MLS/HR; Start 08/09/16 at 12:00; Stop 08/09/16 at 23:00 Pantoprazole (Protonix Iv) 40 mg DAILY@06 IV ; Start 08/10/16 at 06:00 Insulin Aspart NOVOLOG *MILD* ALGORI... Q4 SC ; Start 08/09/16 at 13:00 Norepinephrine/ Dextrose (Levophed/D5W) 500 ml @ 1.87 mls/hr TITRATE IV ; Start 08/09/16 at 13:30 Amiodarone HCl (Cordarone) 200 mg DAILY NGT Last administered on 08/09/16 20: 20; Admin Dose 200 MG; Start 08/09/16 at 21:00 Sucralfate (Carafate) 1 gm QID NGT Last administered on 08/09/16 20:21; Admin Dose 1 GM; Start 08/09/16 at 21:00 STEPHAN MARES MD Aug 09, 2016 21:37
[2016-08-10] VITALS (93 sets, daily range): BP systolic 81–132; BP diastolic 34–83; PULSE 60–80; RESP 12–17
[2016-08-10] MEDS: INSULIN ASPART [NOVOLOG] 3 ML PEN SC SCH ×6 (01:00→20:58)
[2016-08-10] MEDS: VASOPRESSIN 60 UNIT in DEXTROSE 5% 57 ML IV SCH ×2 (03:30→15:30)
[2016-08-10] MEDS: PROPOFOL 100 ML IV SCH ×2 (04:59→18:55)
[2016-08-10] MEDS: SOD CHLORIDE 0.45% 1,000 ML IV SCH ×2 (05:00→23:26)
[2016-08-10 05:07] LABS: Allen Test ACCEPTAB; Arterial Base Excess 0.3 mmol/L (-3.0-3); Arterial COHb 0.3 % (0.0-3.0); Arterial Fraction of Oxyhgb 97.1 % (93.0-99.0); Arterial HCO3 24.4 mmol/L (22.0-26.0); Arterial MetHb 0.3 % (0.0-1.5); Arterial Total Hemglobin 12.6 g/dl (12.0-18.0); MODE VENT - AC
[2016-08-10] MEDS: PANTOPRAZOLE 40 MG INJ IV SCH (05:09)
[2016-08-10] MEDS: FUROSEMIDE 40 MG INJ IV SCH (05:10)
[2016-08-10] MEDS: PIPER-TAZO 2.25 GM (PMX) 50 ML IVPB SCH ×3 (05:16→20:57)
[2016-08-10 06:25] LABS: ADD SCAN DIFF NO
[2016-08-10 06:33] LABS: ABNORMAL IP MESSAGE 1; EOSINOPHILS % 0.7 % (0.0-7.0); HEMATOCRIT 37.3 % (42.0-52.0); HEMOGLOBIN 11.1 g/dl (14.0-18.0); LYMPHOCYTES # 0.3 10^3/ul (0.8-2.9); LYMPHOCYTES % 7.1 % (15.0-51.0); MEAN CORPUSCULAR HEMOGLOBIN 24.6 pg (29.0-33.0); MEAN CORPUSCULAR HGB CONC 29.8 g/dl (32.0-37.0); MEAN CORPUSCULAR VOLUME 82.5 fl (82.0-101.0); MEAN PLATELET VOLUME 10.8 fl (7.4-10.4); MONOCYTE # 0.2 10^3/ul (0.3-0.9); MONOCYTES % 5.4 % (0.0-11.0); NEUTROPHIL # 3.7 10^3/ul (1.6-7.5); NEUTROPHILS % 86.3 % (39.0-77.0); NUCLEATED RED BLOOD CELLS # 0.1 10^3/ul (0.0-0.0); NUCLEATED RED BLOOD CELLS% 1.2 /100WBC (0.0-0.0); PLATELET COUNT 112 10^3/UL (140-415); RED BLOOD COUNT 4.52 10^6/ul (4.70-6.10); RED CELL DISTRIBUTION WIDTH 22.8 % (11.5-14.5); WHITE BLOOD COUNT 4.2 10^3/ul (4.8-10.8)
[2016-08-10 06:47] LABS: INR 1.59; PARTIAL THROMBOPLASTIN TIME 34.6 Sec (25.0-35.0); PROTIME 19.1 Sec (12.2-14.2); PT RATIO 1.5
[2016-08-10 06:55] LABS: CREATININE 1.95 mg/dl (0.61-1.24)
[2016-08-10 06:56] LABS: CALCIUM 8.3 mg/dl (8.4-10.2)
[2016-08-10 07:16] LABS: POTASSIUM 2.8 mmol/L (3.5-5.1)
[2016-08-10] MEDS: AMIODARONE 200 MG TAB NGT SCH (08:28)
[2016-08-10] MEDS: POTASSIUM CHLORIDE (SR) 20 MEQ TAB PO SCH ×2 (08:28→11:11)
[2016-08-10] MEDS: SUCRALFATE 1 GM TAB NGT SCH ×4 (08:29→20:51)
--- NOTE | 2016-08-10 09:19 | PN ---
Date/Time of Note Date/Time of Note DATE: 08/10/16 TIME: 09:15 Assessment/Plan VTE Prophylaxis VTE Prophylaxis Intervention: SCD's Lines/Catheters IV Catheter Type (from Nrs): Saline Lock Urinary Cath still in place: Yes Reason Cath still needed: other (indicate) (strict I/O ) Assessment/Plan Assessment/Plan 1. Acute Resp failure intubated on ventilator due to Pulmonary edema and possible aspiration 2. Acute on chronic congestive heart failure on Lasix 2. 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 Type 2 diabetes. 4. Atrial fibrillation, rate controlled 5. History of CAD status post CABG 6. 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 Dr.Balbir Lamar- Plan: Pulmonary has been following- pt is intubated for acute pulmonary edema,- on HD HD per nephrology, Appreciate nephrology help,his metolazone has been stopped since yesterday, currently on IV lasix 40mg daily IV abx zosyn and vancomycin to cover him for PNA pt is also on Isordil, coreg- cardiology following BP stable Heparin for DVT prophylaxis Subjective 24 Hr Interval Summary Free Text/Dictation pt remained intubated, on ventilator, on IV abx zosyn and vancomycin Exam/Review of Systems Vital Signs Vitals Vital Signs Date Time Temp Pulse Resp B/P Pulse Ox O2 Delivery O2 Flow Rate FiO2 08/10/16 09:12 69 08/10/16 07:50 22 08/10/16 07:45 100 30 08/10/16 05:45 93/46 Mechanical Ventilator 08/10/16 04:00 98.9 Intake and Output 08/09/16 08/09/16 08/10/16 15:00 23:00 07:00 Intake Total 803.660 ml 793.41 ml 909.84 ml Output Total 900 ml 700 ml 350 ml Balance -96.340 ml 93.41 ml 559.84 ml Exam intubated, sedated HEENT: NARENDRA< EOMI, ET tube NECK: supple, no JVD HEART: S1 S2 RRR no murmur LUNG: bilateral crackles, no wheezing ABD: soft, NT EXT: 2_3 + edema Results Result Diagram: 08/10/16 0455 08/10/16 0455 Results 24 hrs Laboratory Tests Test 08/09/16 13:45 08/09/16 13:49 08/09/16 17:47 08/09/16 20:13 Magnesium Level 1.9 Bedside Glucose 81 85 95 Test 08/10/16 01:17 08/10/16 04:55 08/10/16 04:56 08/10/16 05:00 Bedside Glucose 129 126 Activated Partial Thromboplast Time 34.6 Anion Gap 14 Basophils # 0.0 Basophils % 0.0 Blood Urea Nitrogen 74 H Calcium Level 8.3 L Carbon Dioxide Level 28 Chloride Level 108 Creatinine 1.95 H Eosinophils # 0.0 Eosinophils % 0.7 Glucose Level 125 Hematocrit 37.3 L Hemoglobin 11.1 L INR International Normalized Ratio 1.59 Lymphocytes # 0.3 L Lymphocytes % 7.1 L Mean Corpuscular Hemoglobin 24.6 L Mean Corpuscular Hemoglobin Concent 29.8 L Mean Corpuscular Volume 82.5 Mean Platelet Volume 10.8 H Monocytes # 0.2 L Monocytes % 5.4 Neutrophils # 3.7 Neutrophils % 86.3 H Nucleated Red Blood Cells # 0.1 H Nucleated Red Blood Cells % 1.2 H Platelet Count 112 L Potassium Level 2.8 *L Prothrombin Time 19.1 H Prothrombin Time Ratio 1.5 Red Blood Count 4.52 L Red Cell Distribution Width 22.8 H Sodium Level 147 H White Blood Count 4.2 #L Arterial Blood HCO3 24.4 Arterial Blood Base Excess 0.3 Arterial Blood Oxygen Saturation 97.7 Sebastien Test ACCEPTAB Arterial Blood Gas Puncture Site Right Radial Arterial Blood Carboxyhemoglobin 0.3 Arterial Blood Date Drawn 08/10/2016 5:00:42 AM Arterial Blood Methemoglobin 0.3 Arterial Blood pCO2 (Temp correct) 37.4 Arterial Blood pH (Temp corrected) 7.432 Arterial Blood pO2 (Temp corrected) 105.0 H Blood Gas A-a O2 Differential 65.0 H Blood Gas Actual Respiration Rate 12 Blood Gas Low PEEP Setting 5.0 Blood Gas Modality VENT - AC Blood Gas Notified Time 08/10/2016 5:07:40 AM Blood Gas Notified Whom MA Blood Gas Respiration Rate 12.0 Blood Gas Specimen Source Blood arterial Blood Gas Temperature 37.0 Blood Gas Tidal Volume 500.0 FiO2 30.0 Oxyhemoglobin Percent 97.1 Total Hemoglobin 12.6 Test 08/10/16 08:39 Bedside Glucose 129 Medications Medications Current Medications Apixaban (Eliquis) 2.5 mg BID PO Last administered on 08/03/16 19:58; Admin Dose 2.5 MG; Start 07/18/16 at 21:00; Status Future Hold Aspirin (Halfprin) 81 mg DAILY PO Last administered on 08/05/16 09:06; Admin Dose 81 MG; Start 07/19/16 at 09:00; Status Future Hold Nitroglycerin (Nitroglycerin (Sl Tab) 0.4 Mg) 1 tab DAILY PRN SL CHEST PAIN; Start 07/18/16 at 15:30 Ondansetron HCl (Zofran Inj) 4 mg Q6H PRN IV NAUSEA AND/OR VOMITING Last administered on 08/05/16 23:48; Admin Dose 4 MG; Start 07/18/16 at 15:30 Acetaminophen (Tylenol Tab) 650 mg Q6H PRN PO PAIN LEVEL 1-3 OR FEVER Last administered on 08/02/16 15:25; Admin Dose 650 MG; Start 07/18/16 at 15:30 Acetaminophen (Tylenol Supp) 650 mg Q6H PRN [place] PAIN LEVEL 1-3 OR FEVER; Start 07/18/16 at 15:30 Docusate Sodium (Colace) 100 mg Q12H PRN PO CONSTIPATION Last administered on 20:19; Admin Dose 100 MG; Start 07/18/16 at 15:30 Magnesium Hydroxide (Milk Of Mag) 30 ml DAILY PRN PO CONSTIPATION Last administered on 07/28/16 23:03; Admin Dose 30 ML; Start 07/18/16 at 15:30 Bisacodyl (Dulcolax Supp) 10 mg DAILY PRN [place] CONSTIPATION; Start 07/18/16 at 15 :30 Miscellaneous Information 1 ea NOTE XX ; Start 07/18/16 at 17:30 Glucose (Glutose) 15 gm Q15M PRN PO DECREASED GLUCOSE; Start 07/18/16 at 17:30 Glucose (Glutose) 22.5 gm Q15M PRN PO DECREASED GLUCOSE; Start 07/18/16 at 17: 30 Dextrose (D50w Syringe) 25 ml Q15M PRN IV DECREASED GLUCOSE; Start 07/18/16 at 17:30 Dextrose (D50w Syringe) 50 ml Q15M PRN IV DECREASED GLUCOSE; Start 07/18/16 at 17:30 Glucagon (Glucagen) 1 mg Q15M PRN IM DECREASED GLUCOSE; Start 07/18/16 at 17:30 Glucose (Glutose) 15 gm Q15M PRN BUCCAL DECREASED GLUCOSE; Start 07/18/16 at 17 :30 Guaifenesin/ Codeine Phosphate (Robitussin Ac Liquid Cup) 10 ml Q4H PRN PO COUGH Last administered on 07/19/16 19:43; Admin Dose 10 ML; Start 07/18/16 at 23:30 Carvedilol (Coreg) 3.125 mg BID PO Last administered on 08/03/16 20:05; Admin Dose 3.125 MG; Start 07/24/16 at 09:00; Status Future Hold Isosorbide Dinitrate 10 mg 10 mg TID PO Last administered on 08/03/16 19:58; Admin Dose 10 MG; Start 07/30/16 at 21:00; Status Future Hold Propofol 100 ml @ 2.055 mls/ hr Q12H IV Last administered on 08/10/16 04:59; Admin Dose 6.165 MLS/HR; Start 08/06/16 at 03:30 Vasopressin/ Dextrose (Vasostrict/D5W) 60 ml @ 1.2 mls/hr Q12H IV Last administered on 08/06/16 18:37; Admin Dose 0.9 MLS/HR; Start 08/06/16 at 03:30 Furosemide 40 mg 40 mg DAILY@06 IV Last administered on 08/10/16 05:10; Admin Dose 40 MG; Start 08/07/16 at 10:00 Piperacillin Sod/ Tazobactam Sod 50 ml @ 100 mls/hr Q8 IVPB Last administered on 08/10/16 05:16; Admin Dose 100 MLS/HR; Start 08/07/16 at 14:00 Sodium Chloride (1/2 NS) 1,000 ml @ 60 mls/hr [id number] IV Last administered on 08/10/16 05:00; Admin Dose 60 MLS/HR; Start 08/08/16 at 07:00 Pantoprazole (Protonix Iv) 40 mg DAILY@06 IV Last administered on 08/10/16 05: 09; Admin Dose 40 MG; Start 08/10/16 at 06:00 Insulin Aspart NOVOLOG *MILD* ALGORI... Q4 SC ; Start 08/09/16 at 13:00 Norepinephrine/ Dextrose (Levophed/D5W) 500 ml @ 1.87 mls/hr TITRATE IV ; Start 08/09/16 at 13:30 Amiodarone HCl (Cordarone) 200 mg DAILY NGT Last administered on 08/10/16 08: 28; Admin Dose 200 MG; Start 08/09/16 at 21:00 Sucralfate (Carafate) 1 gm QID NGT Last administered on 08/10/16 08:29; Admin Dose 1 GM; Start 08/09/16 at 21:00 STEPHAN MARES MD Aug 10, 2016 09:18
--- NOTE | 2016-08-10 09:40 | RADRPT ---
PROCEDURE: XR Chest. CLINICAL INDICATION: 81-year-old male on ventilator. TECHNIQUE: Single frontal view of the chest was obtained COMPARISON: Chest x-ray 08/07/2016 06:15 a.m. FINDINGS: The soft tissues are normal. There are degenerative osteophytes in the thoracic spine. The the hea rt is enlarged. The cardiomediastinal silhouette, pulmonary vasculature and hilar structures are no rmal. Median sternotomy has been performed. There is a single chamber cardiac pacemaker implanted o kateryna the left chest wall with electrode leads projecting at the level of the right ventricle. An NG tube is positioned distal to the GE junction. An endotracheal tube is positioned 3 cm superior to t he travis. There are bibasilar infiltrates with plate-like densities in the medial aspect of the rig ht lower lobe. A left pleural effusion is not excluded. The pulmonary vasculature is equilibrated. IMPRESSION: 1. Status post median sternotomy for coronary bypass surgery. 2. Single chamber pacemaker implanted over upper left chest wall. 3. Bibasilar infiltrates which have worsened slightly when compared to 08/07/2016. These may be the result of pulmonary edema related to mild CHF. 4. Small left pleural effusion. 5. Plate-like density consistent with scarring or atelectasis in the medial aspect of the right low er lobe. 6. Satisfactory positioning of the endotracheal tube and NG tube. 7. Pancardiomegaly. RPTAT:AAJJ Physician Joselyn Date Time Electronically viewed and signed by Nikhil Olguin Physician on 08/10/2016 09:40 TIMOTHY/
--- NOTE | 2016-08-10 12:23 | RADRPT ---
PROCEDURE: XR Chest. CLINICAL INDICATION: Shortness of breath. TECHNIQUE: A single portable view of the chest was obtained. COMPARISON: 08/10/2016 from 06:09 a.m. FINDINGS: The endotracheal tube and nasogastric tube are essentially unchanged. The aorta is tortuous and ath erosclerotic. The cardiomediastinal silhouette is otherwise enlarged and is stable. A left pleural effusion is seen with probable left lower lobe atelectasis and is unchanged. Diffuse reticular inter stitial markings are again seen with pulmonary vascular congestion. The soft tissues and osseous st ructures demonstrate benign age related senescent changes. IMPRESSION: 1. Left pleural effusion with probable left lower lobe atelectasis which has not changed significan tly. 2. Mild diffuse pulmonary vascular congestion with diffuse interstitial markings which may represen t interstitial pulmonary edema and is stable. RPTAT: HPNM Physician Juan Luis Date Time Electronically viewed and signed by Haroldo Correa Physician on 08/10/2016 12:22 /
[2016-08-10] MEDS ORDERED: LIDOCAINE 1% (MDV) 20 ML INJ SC ONE (17:00)
--- NOTE | 2016-08-10 17:07 | CONS ---
Date/Time of Note Date/Time of Note DATE: 08/10/16 TIME: 17:04 Assessment/Plan Assessment/Plan Chief Complaint/Hosp Course IMPRESSION: 1. Congestive heart failure exacerbation, systolic, acute on chronic. EF 25% by most recent echo-worsening. Minimally + troponin after cardiac arrest 2. Resp failure s/p intubation 3. Hypotension/shock-on levo and vasopressin 3. History of coronary artery bypass graft surgery. 4. Abnormal electrocardiogram . MIldly postive trop after cardiac arrest 5. History of paroxysmal atrial fibrillation-apixaban held due to coagulopathy 6. Acute on chronic renal failure-Now on HD 8. Anemia, mild. 9. 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 -Resume apixaban now that coagulopathy improved -Wean Levo as tolerated -Wean vent as tolerated Problems: Consultation Date/Type/Reason Admit Date/Time Jul 18, 2016 at 14:06 Initial Consult Date 07/19/2016 Type of Consultation: Cardiology Reason for Consultation CHF Referring Provider: MURIEL EWING Exam/Review of Systems Vital Signs Vitals Vital Signs Date Time Temp Pulse Resp B/P Pulse Ox O2 Delivery O2 Flow Rate FiO2 08/10/16 16:00 78 08/10/16 15:30 112/83 08/10/16 15:15 100 08/10/16 15:10 12 30 08/10/16 15:00 Mechanical Ventilator 08/10/16 12:00 98.7 Intake and Output 08/09/16 08/09/16 08/10/16 15:00 23:00 07:00 Intake Total 803.660 ml 793.41 ml 909.84 ml Output Total 900 ml 700 ml 350 ml Balance -96.340 ml 93.41 ml 559.84 ml Exam Review of Systems: CONSTITUTIONAL: No fevers, chills. PULMONARY: intubated CARDIOVASCULAR: No obvious chest pain/palpitations GASTROINTESTINAL: No nausea/vomiting. GENITOURINARY: No hematuria/dysuria. MUSCULOSKELETAL: No myagias/arthalgias. PSYCHIATRIC: The patient denies depression. NEUROLOGIC: No weakness Constitutional: other (sedated) Psych: no complaints Head: normocephalic ENMT: mucosa pink and moist Neck: jvd ((), supple Respiratory: other (Upper airway rhoncherous sounds) Cardiovascular: regular rate and rhythm Gastrointestinal: non-tender, soft Musculoskeletal: muscle tone (normal) Extremities: edema (trace/B) Neurological: other (sedated) Results Result Diagram: 08/10/16 0455 08/10/16 0455 Results 24 hrs Laboratory Tests Test 08/09/16 17:47 08/09/16 20:13 08/10/16 01:17 08/10/16 04:55 Bedside Glucose 85 95 129 Activated Partial Thromboplast Time 34.6 Anion Gap 14 Basophils # 0.0 Basophils % 0.0 Blood Urea Nitrogen 74 H Calcium Level 8.3 L Carbon Dioxide Level 28 Chloride Level 108 Creatinine 1.95 H Eosinophils # 0.0 Eosinophils % 0.7 Glucose Level 125 Hematocrit 37.3 L Hemoglobin 11.1 L INR International Normalized Ratio 1.59 Lymphocytes # 0.3 L Lymphocytes % 7.1 L Mean Corpuscular Hemoglobin 24.6 L Mean Corpuscular Hemoglobin Concent 29.8 L Mean Corpuscular Volume 82.5 Mean Platelet Volume 10.8 H Monocytes # 0.2 L Monocytes % 5.4 Neutrophils # 3.7 Neutrophils % 86.3 H Nucleated Red Blood Cells # 0.1 H Nucleated Red Blood Cells % 1.2 H Platelet Count 112 L Potassium Level 2.8 *L Prothrombin Time 19.1 H Prothrombin Time Ratio 1.5 Red Blood Count 4.52 L Red Cell Distribution Width 22.8 H Sodium Level 147 H White Blood Count 4.2 #L Test 08/10/16 04:56 08/10/16 05:00 08/10/16 08:39 08/10/16 13:19 Bedside Glucose 126 129 114 Arterial Blood HCO3 24.4 Arterial Blood Base Excess 0.3 Arterial Blood Oxygen Saturation 97.7 Sebastien Test ACCEPTAB Arterial Blood Gas Puncture Site Right Radial Arterial Blood Carboxyhemoglobin 0.3 Arterial Blood Date Drawn 08/10/2016 5:00:42 AM Arterial Blood Methemoglobin 0.3 Arterial Blood pCO2 (Temp correct) 37.4 Arterial Blood pH (Temp corrected) 7.432 Arterial Blood pO2 (Temp corrected) 105.0 H Blood Gas A-a O2 Differential 65.0 H Blood Gas Actual Respiration Rate 12 Blood Gas Low PEEP Setting 5.0 Blood Gas Modality VENT - AC Blood Gas Notified Time 08/10/2016 5:07:40 AM Blood Gas Notified Whom ATA Blood Gas Respiration Rate 12.0 Blood Gas Specimen Source Blood arterial Blood Gas Temperature 37.0 Blood Gas Tidal Volume 500.0 FiO2 30.0 Oxyhemoglobin Percent 97.1 Total Hemoglobin 12.6 Medications Medications Current Medications Apixaban (Eliquis) 2.5 mg BID PO Last administered on 08/03/16 19:58; Admin Dose 2.5 MG; Start 07/18/16 at 21:00; Status Future Hold Aspirin (Halfprin) 81 mg DAILY PO Last administered on 08/05/16 09:06; Admin Dose 81 MG; Start 07/19/16 at 09:00; Status Future Hold Nitroglycerin (Nitroglycerin (Sl Tab) 0.4 Mg) 1 tab DAILY PRN SL CHEST PAIN; Start 07/18/16 at 15:30 Ondansetron HCl (Zofran Inj) 4 mg Q6H PRN IV NAUSEA AND/OR VOMITING Last administered on 08/05/16 23:48; Admin Dose 4 MG; Start 07/18/16 at 15:30 Acetaminophen (Tylenol Tab) 650 mg Q6H PRN PO PAIN LEVEL 1-3 OR FEVER Last administered on 08/02/16 15:25; Admin Dose 650 MG; Start 07/18/16 at 15:30 Acetaminophen (Tylenol Supp) 650 mg Q6H PRN [place] PAIN LEVEL 1-3 OR FEVER; Start 07/18/16 at 15:30 Docusate Sodium (Colace) 100 mg Q12H PRN PO CONSTIPATION Last administered on 20:19; Admin Dose 100 MG; Start 07/18/16 at 15:30 Magnesium Hydroxide (Milk Of Mag) 30 ml DAILY PRN PO CONSTIPATION Last administered on 07/28/16 23:03; Admin Dose 30 ML; Start 07/18/16 at 15:30 Bisacodyl (Dulcolax Supp) 10 mg DAILY PRN [place] CONSTIPATION; Start 07/18/16 at 15 :30 Miscellaneous Information 1 ea NOTE XX ; Start 07/18/16 at 17:30 Glucose (Glutose) 15 gm Q15M PRN PO DECREASED GLUCOSE; Start 07/18/16 at 17:30 Glucose (Glutose) 22.5 gm Q15M PRN PO DECREASED GLUCOSE; Start 07/18/16 at 17: 30 Dextrose (D50w Syringe) 25 ml Q15M PRN IV DECREASED GLUCOSE; Start 07/18/16 at 17:30 Dextrose (D50w Syringe) 50 ml Q15M PRN IV DECREASED GLUCOSE; Start 07/18/16 at 17:30 Glucagon (Glucagen) 1 mg Q15M PRN IM DECREASED GLUCOSE; Start 07/18/16 at 17:30 Glucose (Glutose) 15 gm Q15M PRN BUCCAL DECREASED GLUCOSE; Start 07/18/16 at 17 :30 Guaifenesin/ Codeine Phosphate (Robitussin Ac Liquid Cup) 10 ml Q4H PRN PO COUGH Last administered on 07/19/16 19:43; Admin Dose 10 ML; Start 07/18/16 at 23:30 Carvedilol (Coreg) 3.125 mg BID PO Last administered on 08/03/16 20:05; Admin Dose 3.125 MG; Start 07/24/16 at 09:00; Status Future Hold Isosorbide Dinitrate 10 mg 10 mg TID PO Last administered on 08/03/16 19:58; Admin Dose 10 MG; Start 07/30/16 at 21:00; Status Future Hold Propofol 100 ml @ 2.055 mls/ hr Q12H IV Last administered on 08/10/16 04:59; Admin Dose 6.165 MLS/HR; Start 08/06/16 at 03:30 Vasopressin/ Dextrose (Vasostrict/D5W) 60 ml @ 1.2 mls/hr Q12H IV Last administered on 08/06/16 18:37; Admin Dose 0.9 MLS/HR; Start 08/06/16 at 03:30 Furosemide 40 mg 40 mg DAILY@06 IV Last administered on 08/10/16 05:10; Admin Dose 40 MG; Start 08/07/16 at 10:00 Piperacillin Sod/ Tazobactam Sod 50 ml @ 100 mls/hr Q8 IVPB Last administered on 08/10/16 05:16; Admin Dose 100 MLS/HR; Start 08/07/16 at 14:00 Sodium Chloride (1/2 NS) 1,000 ml @ 60 mls/hr [id number] IV Last administered on 08/10/16 05:00; Admin Dose 60 MLS/HR; Start 08/08/16 at 07:00 Pantoprazole (Protonix Iv) 40 mg DAILY@06 IV Last administered on 08/10/16 05: 09; Admin Dose 40 MG; Start 08/10/16 at 06:00 Insulin Aspart NOVOLOG *MILD* ALGORI... Q4 SC ; Start 08/09/16 at 13:00 Norepinephrine/ Dextrose (Levophed/D5W) 500 ml @ 1.87 mls/hr TITRATE IV ; Start 08/09/16 at 13:30 Amiodarone HCl (Cordarone) 200 mg DAILY NGT Last administered on 08/10/16 08: 28; Admin Dose 200 MG; Start 08/09/16 at 21:00 Sucralfate (Carafate) 1 gm QID NGT Last administered on 08/10/16 08:29; Admin Dose 1 GM; Start 08/09/16 at 21:00 Miscellaneous Information (*Rx Drug Level Order Reminder*) 1 ONCE ONCE XX ; Start 08/11/16 at 05:00; Stop 08/11/16 at 05:01 POLI SAN Aug 10, 2016 17:07
[2016-08-10] MEDS: APIXABAN 5 MG TABLET PO SCH (20:51)
[2016-08-10] MEDS ORDERED: AMIODARONE 200 MG TAB NGT SCH (21:00)
--- NOTE | 2016-08-10 22:46 | CONS ---
Date/Time of Note Date/Time of Note DATE: 08/10/16 TIME: 22:41 Assessment/Plan Assessment/Plan Chief Complaint/Hosp Course 1. Patient has acute on chronic renal failure with acute kidney injury due to systolic heart failure.ON HD 2. The patient has LOW EF now on vent 3. Anemia. 4. ASHD 5. 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 11 chest xr better no leg edema plan continue hd for now weaning per pulmonary cardiac issue per cardio PLAN CONTINUE per pulmonary HD PRN kcl labs Problems: Consultation Date/Type/Reason Admit Date/Time Jul 18, 2016 at 14:06 Type of Consultation: renal Referring Provider: MURIEL EWING 24 HR Interval Summary Constitutional: other (chest xr better,d/w dr family no need to do daily dialysis pt w no leg edema and xr chest better) Exam/Review of Systems Vital Signs Vitals Vital Signs Date Time Temp Pulse Resp B/P Pulse Ox O2 Delivery O2 Flow Rate FiO2 08/10/16 20:00 30 08/10/16 20:00 60 08/10/16 18:30 101/46 100 08/10/16 18:00 Mechanical Ventilator 08/10/16 17:50 12 08/10/16 16:00 99.0 Intake and Output 08/09/16 08/09/16 08/10/16 15:00 23:00 07:00 Intake Total 803.660 ml 793.41 ml 916.84 ml Output Total 900 ml 700 ml 350 ml Balance -96.340 ml 93.41 ml 566.84 ml Exam Respiratory: diminished breath sounds Cardiovascular: regular rate and rhythm Gastrointestinal: soft Musculoskeletal: nl extremities to inspection Extremities: edema (tr) Results Result Diagram: 08/10/16 0455 08/10/16 0455 Results 24 hrs Laboratory Tests Test 08/10/16 01:17 08/10/16 04:55 08/10/16 04:56 08/10/16 05:00 Bedside Glucose 129 126 Activated Partial Thromboplast Time 34.6 Anion Gap 14 Basophils # 0.0 Basophils % 0.0 Blood Urea Nitrogen 74 H Calcium Level 8.3 L Carbon Dioxide Level 28 Chloride Level 108 Creatinine 1.95 H Eosinophils # 0.0 Eosinophils % 0.7 Glucose Level 125 Hematocrit 37.3 L Hemoglobin 11.1 L INR International Normalized Ratio 1.59 Lymphocytes # 0.3 L Lymphocytes % 7.1 L Mean Corpuscular Hemoglobin 24.6 L Mean Corpuscular Hemoglobin Concent 29.8 L Mean Corpuscular Volume 82.5 Mean Platelet Volume 10.8 H Monocytes # 0.2 L Monocytes % 5.4 Neutrophils # 3.7 Neutrophils % 86.3 H Nucleated Red Blood Cells # 0.1 H Nucleated Red Blood Cells % 1.2 H Platelet Count 112 L Potassium Level 2.8 *L Prothrombin Time 19.1 H Prothrombin Time Ratio 1.5 Red Blood Count 4.52 L Red Cell Distribution Width 22.8 H Sodium Level 147 H White Blood Count 4.2 #L Arterial Blood HCO3 24.4 Arterial Blood Base Excess 0.3 Arterial Blood Oxygen Saturation 97.7 Sebastien Test ACCEPTAB Arterial Blood Gas Puncture Site Right Radial Arterial Blood Carboxyhemoglobin 0.3 Arterial Blood Date Drawn 08/10/2016 5:00:42 AM Arterial Blood Methemoglobin 0.3 Arterial Blood pCO2 (Temp correct) 37.4 Arterial Blood pH (Temp corrected) 7.432 Arterial Blood pO2 (Temp corrected) 105.0 H Blood Gas A-a O2 Differential 65.0 H Blood Gas Actual Respiration Rate 12 Blood Gas Low PEEP Setting 5.0 Blood Gas Modality VENT - AC Blood Gas Notified Time 08/10/2016 5:07:40 AM Blood Gas Notified Whom MA Blood Gas Respiration Rate 12.0 Blood Gas Specimen Source Blood arterial Blood Gas Temperature 37.0 Blood Gas Tidal Volume 500.0 FiO2 30.0 Oxyhemoglobin Percent 97.1 Total Hemoglobin 12.6 Test 08/10/16 08:39 08/10/16 13:19 08/10/16 20:55 Bedside Glucose 129 114 138 Medications Medications Current Medications Aspirin (Halfprin) 81 mg DAILY PO Last administered on 08/05/16 09:06; Admin Dose 81 MG; Start 07/19/16 at 09:00; Status Future Hold Nitroglycerin (Nitroglycerin (Sl Tab) 0.4 Mg) 1 tab DAILY PRN SL CHEST PAIN; Start 07/18/16 at 15:30 Ondansetron HCl (Zofran Inj) 4 mg Q6H PRN IV NAUSEA AND/OR VOMITING Last administered on 08/05/16 23:48; Admin Dose 4 MG; Start 07/18/16 at 15:30 Acetaminophen (Tylenol Tab) 650 mg Q6H PRN PO PAIN LEVEL 1-3 OR FEVER Last administered on 08/02/16 15:25; Admin Dose 650 MG; Start 07/18/16 at 15:30 Acetaminophen (Tylenol Supp) 650 mg Q6H PRN [place] PAIN LEVEL 1-3 OR FEVER; Start 07/18/16 at 15:30 Docusate Sodium (Colace) 100 mg Q12H PRN PO CONSTIPATION Last administered on 20:19; Admin Dose 100 MG; Start 07/18/16 at 15:30 Magnesium Hydroxide (Milk Of Mag) 30 ml DAILY PRN PO CONSTIPATION Last administered on 07/28/16 23:03; Admin Dose 30 ML; Start 07/18/16 at 15:30 Bisacodyl (Dulcolax Supp) 10 mg DAILY PRN [place] CONSTIPATION; Start 07/18/16 at 15 :30 Miscellaneous Information 1 ea NOTE XX ; Start 07/18/16 at 17:30 Glucose (Glutose) 15 gm Q15M PRN PO DECREASED GLUCOSE; Start 07/18/16 at 17:30 Glucose (Glutose) 22.5 gm Q15M PRN PO DECREASED GLUCOSE; Start 07/18/16 at 17: 30 Dextrose (D50w Syringe) 25 ml Q15M PRN IV DECREASED GLUCOSE; Start 07/18/16 at 17:30 Dextrose (D50w Syringe) 50 ml Q15M PRN IV DECREASED GLUCOSE; Start 07/18/16 at 17:30 Glucagon (Glucagen) 1 mg Q15M PRN IM DECREASED GLUCOSE; Start 07/18/16 at 17:30 Glucose (Glutose) 15 gm Q15M PRN BUCCAL DECREASED GLUCOSE; Start 07/18/16 at 17 :30 Guaifenesin/ Codeine Phosphate (Robitussin Ac Liquid Cup) 10 ml Q4H PRN PO COUGH Last administered on 07/19/16 19:43; Admin Dose 10 ML; Start 07/18/16 at 23:30 Carvedilol (Coreg) 3.125 mg BID PO Last administered on 08/03/16 20:05; Admin Dose 3.125 MG; Start 07/24/16 at 09:00; Status Future Hold Isosorbide Dinitrate 10 mg 10 mg TID PO Last administered on 08/03/16 19:58; Admin Dose 10 MG; Start 07/30/16 at 21:00; Status Future Hold Propofol 100 ml @ 2.055 mls/ hr Q12H IV Last administered on 08/10/16 18:55; Admin Dose 6.136 MLS/HR; Start 08/06/16 at 03:30 Vasopressin/ Dextrose (Vasostrict/D5W) 60 ml @ 1.2 mls/hr Q12H IV Last administered on 08/06/16 18:37; Admin Dose 0.9 MLS/HR; Start 08/06/16 at 03:30 Furosemide 40 mg 40 mg DAILY@06 IV Last administered on 08/10/16 05:10; Admin Dose 40 MG; Start 08/07/16 at 10:00 Piperacillin Sod/ Tazobactam Sod 50 ml @ 100 mls/hr Q8 IVPB Last administered on 08/10/16 20:57; Admin Dose 100 MLS/HR; Start 08/07/16 at 14:00 Sodium Chloride (1/2 NS) 1,000 ml @ 60 mls/hr [id number] IV Last administered on 08/10/16 05:00; Admin Dose 60 MLS/HR; Start 08/08/16 at 07:00 Pantoprazole (Protonix Iv) 40 mg DAILY@06 IV Last administered on 08/10/16 05: 09; Admin Dose 40 MG; Start 08/10/16 at 06:00 Insulin Aspart NOVOLOG *MILD* ALGORI... Q4 SC ; Start 08/09/16 at 13:00 Norepinephrine/ Dextrose (Levophed/D5W) 500 ml @ 1.87 mls/hr TITRATE IV ; Start 08/09/16 at 13:30 Amiodarone HCl (Cordarone) 200 mg DAILY NGT Last administered on 08/10/16 08: 28; Admin Dose 200 MG; Start 08/09/16 at 21:00 Sucralfate (Carafate) 1 gm QID NGT Last administered on 08/10/16 20:51; Admin Dose 1 GM; Start 08/09/16 at 21:00 Miscellaneous Information (*Rx Drug Level Order Reminder*) 1 ONCE ONCE XX ; Start 08/11/16 at 05:00; Stop 08/11/16 at 05:01 Apixaban (Eliquis) 2.5 mg BID PO Last administered on 08/10/16t 20:51; Admin Dose 2.5 MG; Start 08/10/16 at 21:00 YANIRA HART MD Aug 10, 2016 22:46
[2016-08-11] VITALS (45 sets, daily range): BP systolic 83–118; BP diastolic 35–62; PULSE 60–65; RESP 12–23
[2016-08-11] MEDS: INSULIN ASPART [NOVOLOG] 3 ML PEN SC SCH ×6 (00:58→20:48)
[2016-08-11] MEDS: PROPOFOL 100 ML IV SCH ×2 (03:30→05:53)
[2016-08-11] MEDS: VASOPRESSIN 60 UNIT in DEXTROSE 5% 57 ML IV SCH ×2 (03:30→15:30)
[2016-08-11 04:57] LABS: ADD SCAN DIFF NO
[2016-08-11 05:07] LABS: ABNORMAL IP MESSAGE 1; EOSINOPHILS # 0.1 10^3/ul (0.0-0.5); EOSINOPHILS % 2.9 % (0.0-7.0); HEMATOCRIT 35.6 % (42.0-52.0); HEMOGLOBIN 10.7 g/dl (14.0-18.0); LYMPHOCYTES # 0.4 10^3/ul (0.8-2.9); LYMPHOCYTES % 10.5 % (15.0-51.0); MEAN CORPUSCULAR HEMOGLOBIN 24.9 pg (29.0-33.0); MEAN CORPUSCULAR HGB CONC 30.1 g/dl (32.0-37.0); MONOCYTE # 0.3 10^3/ul (0.3-0.9); MONOCYTES % 7.1 % (0.0-11.0); NEUTROPHIL # 3.2 10^3/ul (1.6-7.5); NEUTROPHILS % 79.3 % (39.0-77.0); NUCLEATED RED BLOOD CELLS% 0.5 /100WBC (0.0-0.0); PLATELET COUNT 116 10^3/UL (140-415); RED BLOOD COUNT 4.29 10^6/ul (4.70-6.10); RED CELL DISTRIBUTION WIDTH 23.1 % (11.5-14.5); WHITE BLOOD COUNT 4.1 10^3/ul (4.8-10.8)
[2016-08-11 05:15] LABS: INR 1.43; PROTIME 17.5 Sec (12.2-14.2); PT RATIO 1.4
[2016-08-11 05:16] LABS: PARTIAL THROMBOPLASTIN TIME 38.6 Sec (25.0-35.0)
[2016-08-11 05:21] LABS: POTASSIUM 3.1 mmol/L (3.5-5.1)
[2016-08-11 05:21] LABS: AADO2 Arterial 43.4 mmHg (7.0-24.0); Allen Test ACCEPTAB; Arterial COHb 0.4 % (0.0-3.0); Arterial MetHb 0.3 % (0.0-1.5); Arterial Total Hemglobin 11.7 g/dl (12.0-18.0); MODE VENT - AC
[2016-08-11 05:24] LABS: CREATININE 1.51 mg/dl (0.61-1.24)
[2016-08-11] MEDS: FUROSEMIDE 40 MG INJ IV SCH (05:44)
[2016-08-11] MEDS: PANTOPRAZOLE 40 MG INJ IV SCH (05:44)
[2016-08-11] MEDS: PIPER-TAZO 2.25 GM (PMX) 50 ML IVPB SCH ×3 (05:45→20:48)
[2016-08-11] MEDS: POTASSIUM CHLORIDE 250 ML IVPB SCH ×2 (07:31→12:38)
--- NOTE | 2016-08-11 08:13 | CONS ---
Date/Time of Note Date/Time of Note DATE: 08/11/16 TIME: 08:09 Assessment/Plan Assessment/Plan Additional Assessment/Plan Ventilator settings; AC of 12, tidal volume of 500, PEEP of 5, 30% FiO2. Next Patient is on propofol at 40 mics per kilogram per minute. Assessment recommendations; 1. Patient admitted for severe congestive heart failure due to underlying cardiomyopathy. There has been substantial radiological improvement however the patient has been unable to be weaned off from ventilator due to severe tachypnea on CPAP mode. 2. Mild renal insufficiency with improving serum creatinine. 3. Mild thrombocytopenia. 4. History of cardiac arrhythmia. 5. History of coronary artery disease. Status post bypass surgery. 6. Possibly superimposed pneumonia. Patient currently on Fortaz. Stop sedation again to assess mental status and to attempt to wean the patient from ventilator. Meanwhile continue current treatment. Prognosis is guarded. Consultation Date/Type/Reason Admit Date/Time Jul 18, 2016 at 14:06 Initial Consult Date 08/06/16 Type of Consultation: Pulmonary/critical care Referring Provider: MURIEL EWING 24 HR Interval Summary Free Text/Dictation Patient condition remains critical. The patient has failed multiple weaning trials from ventilator leading to severe tachypnea once off sedation and on CPAP mode. Requiring him to be put back on assist control mode. Currently the patient is sedated and does not appear to be in any distress. Exam/Review of Systems Vital Signs Vitals Vital Signs Date Time Temp Pulse Resp B/P Pulse Ox O2 Delivery O2 Flow Rate FiO2 08/11/16 06:30 60 99/43 100 08/11/16 06:00 Mechanical Ventilator 08/11/16 05:00 23 30 08/11/16 04:00 98.5 Intake and Output 08/10/16 08/10/16 08/11/16 15:00 23:00 07:00 Intake Total 896 ml 1291.680 ml 442.952 ml Output Total 3315 ml 300 ml 230 ml Balance -2419 ml 991.680 ml 212.952 ml Exam H EENT examination; supple neck, orally intubated, positive JVD. No lymphadenopathy. Midline trachea. No thyromegaly. Fair dentition. Chest examination; diminished but clear breath sounds bilaterally. S1-S2 audible, no murmurs. Regular rhythm. There is a pacemaker in the left chest wall. There is a well-healed sternal scar. Abdomen examination; soft, no organomegaly. Bowel sounds audible. Extremity examination; no peripheral edema. 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 Results Result Diagram: 08/11/16 0330 08/11/16 0330 Results 24 hrs Laboratory Tests Test 08/10/16 08:39 08/10/16 13:19 08/10/16 20:55 08/11/16 00:54 Bedside Glucose 129 114 138 148 Test 08/11/16 03:30 08/11/16 05:00 08/11/16 05:42 Activated Partial Thromboplast Time 38.6 H Anion Gap 14 Basophils # 0.0 Basophils % 0.0 Blood Urea Nitrogen 54 H Calcium Level 8.0 L Carbon Dioxide Level 28 Chloride Level 107 Creatinine 1.51 H Eosinophils # 0.1 Eosinophils % 2.9 Glucose Level 133 Hematocrit 35.6 L Hemoglobin 10.7 L INR International Normalized Ratio 1.43 Lymphocytes # 0.4 L Lymphocytes % 10.5 L Mean Corpuscular Hemoglobin 24.9 L Mean Corpuscular Hemoglobin Concent 30.1 L Mean Corpuscular Volume 83.0 Mean Platelet Volume Monocytes # 0.3 Monocytes % 7.1 Neutrophils # 3.2 Neutrophils % 79.3 H Nucleated Red Blood Cells # 0.0 Nucleated Red Blood Cells % 0.5 H Platelet Count 116 L Potassium Level 3.1 L Prothrombin Time 17.5 H Prothrombin Time Ratio 1.4 Random Vancomycin Level 9.8 Red Blood Count 4.29 L Red Cell Distribution Width 23.1 H Sodium Level 146 H White Blood Count 4.1 L Arterial Blood HCO3 25.0 Arterial Blood Base Excess 2.0 Arterial Blood Oxygen Saturation 98.7 Sebastien Test ACCEPTAB Arterial Blood Gas Puncture Site Right Radial Arterial Blood Carboxyhemoglobin 0.4 Arterial Blood Date Drawn 08/11/2016 5:10:32 AM Arterial Blood Methemoglobin 0.3 Arterial Blood pCO2 (Temp correct) 33.7 L Arterial Blood pH (Temp corrected) 7.489 H Arterial Blood pO2 (Temp corrected) 130.9 H Blood Gas A-a O2 Differential 43.4 H Blood Gas Actual Respiration Rate 16 Blood Gas Low PEEP Setting 5.0 Blood Gas Modality VENT - AC Blood Gas Notified Time 08/11/2016 5:21:09 AM Blood Gas Notified Whom MG Blood Gas Respiration Rate 12.0 Blood Gas Specimen Source Blood arterial Blood Gas Temperature 37.0 Blood Gas Tidal Volume 500.0 FiO2 30.0 Oxyhemoglobin Percent 98.0 Total Hemoglobin 11.7 L Bedside Glucose 143 Medications Medications Current Medications Aspirin (Halfprin) 81 mg DAILY PO Last administered on 08/05/16 09:06; Admin Dose 81 MG; Start 07/19/16 at 09:00; Status Future Hold Nitroglycerin (Nitroglycerin (Sl Tab) 0.4 Mg) 1 tab DAILY PRN SL CHEST PAIN; Start 07/18/16 at 15:30 Ondansetron HCl (Zofran Inj) 4 mg Q6H PRN IV NAUSEA AND/OR VOMITING Last administered on 08/05/16 23:48; Admin Dose 4 MG; Start 07/18/16 at 15:30 Acetaminophen (Tylenol Tab) 650 mg Q6H PRN PO PAIN LEVEL 1-3 OR FEVER Last administered on 08/02/16 15:25; Admin Dose 650 MG; Start 07/18/16 at 15:30 Acetaminophen (Tylenol Supp) 650 mg Q6H PRN [place] PAIN LEVEL 1-3 OR FEVER; Start 07/18/16 at 15:30 Docusate Sodium (Colace) 100 mg Q12H PRN PO CONSTIPATION Last administered on 20:19; Admin Dose 100 MG; Start 07/18/16 at 15:30 Magnesium Hydroxide (Milk Of Mag) 30 ml DAILY PRN PO CONSTIPATION Last administered on 07/28/16 23:03; Admin Dose 30 ML; Start 07/18/16 at 15:30 Bisacodyl (Dulcolax Supp) 10 mg DAILY PRN [place] CONSTIPATION; Start 07/18/16 at 15 :30 Miscellaneous Information 1 ea NOTE XX ; Start 07/18/16 at 17:30 Glucose (Glutose) 15 gm Q15M PRN PO DECREASED GLUCOSE; Start 07/18/16 at 17:30 Glucose (Glutose) 22.5 gm Q15M PRN PO DECREASED GLUCOSE; Start 07/18/16 at 17: 30 Dextrose (D50w Syringe) 25 ml Q15M PRN IV DECREASED GLUCOSE; Start 07/18/16 at 17:30 Dextrose (D50w Syringe) 50 ml Q15M PRN IV DECREASED GLUCOSE; Start 07/18/16 at 17:30 Glucagon (Glucagen) 1 mg Q15M PRN IM DECREASED GLUCOSE; Start 07/18/16 at 17:30 Glucose (Glutose) 15 gm Q15M PRN BUCCAL DECREASED GLUCOSE; Start 07/18/16 at 17 :30 Guaifenesin/ Codeine Phosphate (Robitussin Ac Liquid Cup) 10 ml Q4H PRN PO COUGH Last administered on 07/19/16 19:43; Admin Dose 10 ML; Start 07/18/16 at 23:30 Carvedilol (Coreg) 3.125 mg BID PO Last administered on 08/03/16 20:05; Admin Dose 3.125 MG; Start 07/24/16 at 09:00; Status Future Hold Isosorbide Dinitrate 10 mg 10 mg TID PO Last administered on 08/03/16 19:58; Admin Dose 10 MG; Start 07/30/16 at 21:00; Status Future Hold Propofol 100 ml @ 2.055 mls/ hr Q12H IV Last administered on 08/11/16 05:53; Admin Dose 6.136 MLS/HR; Start 08/06/16 at 03:30 Vasopressin/ Dextrose (Vasostrict/D5W) 60 ml @ 1.2 mls/hr Q12H IV Last administered on 08/06/16 18:37; Admin Dose 0.9 MLS/HR; Start 08/06/16 at 03:30 Furosemide 40 mg 40 mg DAILY@06 IV Last administered on 08/11/16 05:44; Admin Dose 40 MG; Start 08/07/16 at 10:00 Piperacillin Sod/ Tazobactam Sod 50 ml @ 100 mls/hr Q8 IVPB Last administered on 08/11/16 05:45; Admin Dose 100 MLS/HR; Start 08/07/16 at 14:00 Sodium Chloride (1/2 NS) 1,000 ml @ 20 mls/hr Q24H IV Last administered on 23:26; Admin Dose 20 MLS/HR; Start 08/08/16 at 07:00 Pantoprazole (Protonix Iv) 40 mg DAILY@06 IV Last administered on 08/11/16 05: 44; Admin Dose 40 MG; Start 08/10/16 at 06:00 Insulin Aspart NOVOLOG *MILD* ALGORI... Q4 SC Last administered on 08/11/16 05 :43; Admin Dose 1 UNIT; Start 08/09/16 at 13:00 Norepinephrine/ Dextrose (Levophed/D5W) 500 ml @ 1.87 mls/hr TITRATE IV ; Start 08/09/16 at 13:30 Amiodarone HCl (Cordarone) 200 mg DAILY NGT Last administered on 08/10/16 08: 28; Admin Dose 200 MG; Start 08/09/16 at 21:00 Sucralfate (Carafate) 1 gm QID NGT Last administered on 08/10/16 20:51; Admin Dose 1 GM; Start 08/09/16 at 21:00 Apixaban 2.5 mg 2.5 mg BID PO Last administered on 08/10/16 20:51; Admin Dose 2.5 MG; Start 08/10/16 at 21:00 Potassium Chloride (KCl 40 MEQ/250 ML NS) 250 ml @ 62.5 mls/hr Q4H IVPB Last administered on 08/11/16 07:31; Admin Dose 62.5 MLS/HR; Start 08/11/16 at 08:00 ; Stop 08/11/16 at 15:59 ADAMARIS RAMIREZ 14, 2017 08:13
--- NOTE | 2016-08-11 08:54 | RADRPT ---
PROCEDURE: XR Chest. CLINICAL INDICATION: 92 ml with history of pulmonary edema. Intubated patient. TECHNIQUE: Single frontal view of the chest was obtained COMPARISON: Chest x-ray 08/10/2016 12:11 p.m. FINDINGS: The soft tissues are normal. A mediastinotomy was performed. There is a cardiac pacemaker implante d over the upper left chest wall. The heart is enlarged. There are interstitial perihilar and basi lar infiltrates which are little changed when compared to 08/10/2016. An endotracheal tube is posit ioned about 4 cm superior to the travis. An NG tube is well positioned distal to the GE junction. The left costophrenic angle is blunted. IMPRESSION: 1. Cardiomegaly with the question of pulmonary vasculature and asymmetric interstitial pulmonary haley ma suspicious for CHF with associated left pleural effusion. The interstitial pulmonary edema may be slightly worse compared to the prior exam. 2. Status post median sternotomy. 3. Satisfactory positioning of the endotracheal tube and nasogastric tube. 4. Cardiac pacemaker implanted over the upper left chest wall. RPTAT:AAJJ Physician Joselyn Date Time Electronically viewed and signed by Physician Joselyn on 08/11/2016 08:53 TIMOTHY/
--- NOTE | 2016-08-11 09:08 | CONS ---
Date/Time of Note Date/Time of Note DATE: 08/11/16 TIME: 09:03 Assessment/Plan Assessment/Plan Additional Assessment/Plan 1. Congestive heart failure exacerbation, systolic, acute on chronic. EF 25% by most recent echo-worsening. Minimally + troponin after cardiac arrest - con' t to removefluidwith HD 2. Resp failure s/p intubation - con't to wean as tolerated. 3. Hypotension/shock-on levo and vasopressin- stable, BETTER now 3. History of coronary artery bypass graft surgery - no CP now, med rx in place 4. Abnormal electrocardiogram . MIldly postive trop after cardiac arrest 5. History of paroxysmal atrial fibrillation-apixaban held due to coagulopathy - anti-coagulation as coagulopathy improved. 6. Acute on chronic renal failure-Now on HD 8. Anemia, mild- H/H stable now 9. Coagulopathy secondary to apixaban-slowly improving 10.Hematuria Consultation Date/Type/Reason Admit Date/Time Jul 18, 2016 at 14:06 Type of Consultation: Pulmonary/critical care Referring Provider: MURIEL EWING 24 HR Interval Summary Free Text/Dictation NO acute change- intubated - con't CHF Rx- HD to remove fluid -paced on tele - family at bedside - happy with care ROS: No fever, no chills, no nausea, no vomiting, no diarrhea/constipation No recent weight changes No chest pain, no PND, no orthopnea No dizziness, blurred vision No thirst, no heat or cold intolerance (per nurse) Exam/Review of Systems Vital Signs Vitals Vital Signs Date Time Temp Pulse Resp B/P Pulse Ox O2 Delivery O2 Flow Rate FiO2 08/11/16 07:30 60 12 100 30 08/11/16 06:30 99/43 08/11/16 06:00 Mechanical Ventilator 08/11/16 04:00 98.5 Intake and Output 08/10/16 08/10/16 08/11/16 15:00 23:00 07:00 Intake Total 896 ml 1291.680 ml 442.952 ml Output Total 3315 ml 300 ml 230 ml Balance -2419 ml 991.680 ml 212.952 ml Exam General: WN/WD/NAD, AOx 0 HEENT: Unicetric/atraumatic/EOMI (does not follow commands) NECK: JVD elevated, no thyromegaly, intub Lymph: no lymphadenopathy HEART: regular with no S3, II/ systolic murmur at apex LUNGS: Coarse sounds ABD: soft, NT, ND, +BS : Intact Neuro: non focal SKIN: chronic changes EXT: trace edema Results Result Diagram: 08/11/16 0330 08/11/16 0330 Results 24 hrs Laboratory Tests Test 08/10/16 13:19 08/10/16 20:55 08/11/16 00:54 08/11/16 03:30 Bedside Glucose 114 138 148 Activated Partial Thromboplast Time 38.6 H Anion Gap 14 Basophils # 0.0 Basophils % 0.0 Blood Urea Nitrogen 54 H Calcium Level 8.0 L Carbon Dioxide Level 28 Chloride Level 107 Creatinine 1.51 H Eosinophils # 0.1 Eosinophils % 2.9 Glucose Level 133 Hematocrit 35.6 L Hemoglobin 10.7 L INR International Normalized Ratio 1.43 Lymphocytes # 0.4 L Lymphocytes % 10.5 L Mean Corpuscular Hemoglobin 24.9 L Mean Corpuscular Hemoglobin Concent 30.1 L Mean Corpuscular Volume 83.0 Mean Platelet Volume Monocytes # 0.3 Monocytes % 7.1 Neutrophils # 3.2 Neutrophils % 79.3 H Nucleated Red Blood Cells # 0.0 Nucleated Red Blood Cells % 0.5 H Platelet Count 116 L Potassium Level 3.1 L Prothrombin Time 17.5 H Prothrombin Time Ratio 1.4 Random Vancomycin Level 9.8 Red Blood Count 4.29 L Red Cell Distribution Width 23.1 H Sodium Level 146 H White Blood Count 4.1 L Test 08/11/16 05:00 08/11/16 05:42 Arterial Blood HCO3 25.0 Arterial Blood Base Excess 2.0 Arterial Blood Oxygen Saturation 98.7 Sebastien Test ACCEPTAB Arterial Blood Gas Puncture Site Right Radial Arterial Blood Carboxyhemoglobin 0.4 Arterial Blood Date Drawn 08/11/2016 5:10:32 AM Arterial Blood Methemoglobin 0.3 Arterial Blood pCO2 (Temp correct) 33.7 L Arterial Blood pH (Temp corrected) 7.489 H Arterial Blood pO2 (Temp corrected) 130.9 H Blood Gas A-a O2 Differential 43.4 H Blood Gas Actual Respiration Rate 16 Blood Gas Low PEEP Setting 5.0 Blood Gas Modality VENT - AC Blood Gas Notified Time 08/11/2016 5:21:09 AM Blood Gas Notified Whom MG Blood Gas Respiration Rate 12.0 Blood Gas Specimen Source Blood arterial Blood Gas Temperature 37.0 Blood Gas Tidal Volume 500.0 FiO2 30.0 Oxyhemoglobin Percent 98.0 Total Hemoglobin 11.7 L Bedside Glucose 143 Medications Medications Current Medications Aspirin (Halfprin) 81 mg DAILY PO Last administered on 08/05/16 09:06; Admin Dose 81 MG; Start 07/19/16 at 09:00; Status Future Hold Nitroglycerin (Nitroglycerin (Sl Tab) 0.4 Mg) 1 tab DAILY PRN SL CHEST PAIN; Start 07/18/16 at 15:30 Ondansetron HCl (Zofran Inj) 4 mg Q6H PRN IV NAUSEA AND/OR VOMITING Last administered on 08/05/16 23:48; Admin Dose 4 MG; Start 07/18/16 at 15:30 Acetaminophen (Tylenol Tab) 650 mg Q6H PRN PO PAIN LEVEL 1-3 OR FEVER Last administered on 08/02/16 15:25; Admin Dose 650 MG; Start 07/18/16 at 15:30 Acetaminophen (Tylenol Supp) 650 mg Q6H PRN [place] PAIN LEVEL 1-3 OR FEVER; Start 07/18/16 at 15:30 Docusate Sodium (Colace) 100 mg Q12H PRN PO CONSTIPATION Last administered on 20:19; Admin Dose 100 MG; Start 07/18/16 at 15:30 Magnesium Hydroxide (Milk Of Mag) 30 ml DAILY PRN PO CONSTIPATION Last administered on 07/28/16 23:03; Admin Dose 30 ML; Start 07/18/16 at 15:30 Bisacodyl (Dulcolax Supp) 10 mg DAILY PRN [place] CONSTIPATION; Start 07/18/16 at 15 :30 Miscellaneous Information 1 ea NOTE XX ; Start 07/18/16 at 17:30 Glucose (Glutose) 15 gm Q15M PRN PO DECREASED GLUCOSE; Start 07/18/16 at 17:30 Glucose (Glutose) 22.5 gm Q15M PRN PO DECREASED GLUCOSE; Start 07/18/16 at 17: 30 Dextrose (D50w Syringe) 25 ml Q15M PRN IV DECREASED GLUCOSE; Start 07/18/16 at 17:30 Dextrose (D50w Syringe) 50 ml Q15M PRN IV DECREASED GLUCOSE; Start 07/18/16 at 17:30 Glucagon (Glucagen) 1 mg Q15M PRN IM DECREASED GLUCOSE; Start 07/18/16 at 17:30 Glucose (Glutose) 15 gm Q15M PRN BUCCAL DECREASED GLUCOSE; Start 07/18/16 at 17 :30 Guaifenesin/ Codeine Phosphate (Robitussin Ac Liquid Cup) 10 ml Q4H PRN PO COUGH Last administered on 07/19/16 19:43; Admin Dose 10 ML; Start 07/18/16 at 23:30 Carvedilol (Coreg) 3.125 mg BID PO Last administered on 08/03/16 20:05; Admin Dose 3.125 MG; Start 07/24/16 at 09:00; Status Future Hold Isosorbide Dinitrate 10 mg 10 mg TID PO Last administered on 08/03/16 19:58; Admin Dose 10 MG; Start 07/30/16 at 21:00; Status Future Hold Propofol 100 ml @ 2.055 mls/ hr Q12H IV Last administered on 08/11/16 05:53; Admin Dose 6.136 MLS/HR; Start 08/06/16 at 03:30 Vasopressin/ Dextrose (Vasostrict/D5W) 60 ml @ 1.2 mls/hr Q12H IV Last administered on 08/06/16 18:37; Admin Dose 0.9 MLS/HR; Start 08/06/16 at 03:30 Furosemide 40 mg 40 mg DAILY@06 IV Last administered on 08/11/16 05:44; Admin Dose 40 MG; Start 08/07/16 at 10:00 Piperacillin Sod/ Tazobactam Sod 50 ml @ 100 mls/hr Q8 IVPB Last administered on 08/11/16 05:45; Admin Dose 100 MLS/HR; Start 08/07/16 at 14:00 Sodium Chloride (1/2 NS) 1,000 ml @ 20 mls/hr Q24H IV Last administered on 23:26; Admin Dose 20 MLS/HR; Start 08/08/16 at 07:00 Pantoprazole (Protonix Iv) 40 mg DAILY@06 IV Last administered on 08/11/16 05: 44; Admin Dose 40 MG; Start 08/10/16 at 06:00 Insulin Aspart NOVOLOG *MILD* ALGORI... Q4 SC Last administered on 08/11/16 05 :43; Admin Dose 1 UNIT; Start 08/09/16 at 13:00 Norepinephrine/ Dextrose (Levophed/D5W) 500 ml @ 1.87 mls/hr TITRATE IV ; Start 08/09/16 at 13:30 Amiodarone HCl (Cordarone) 200 mg DAILY NGT Last administered on 08/10/16 08: 28; Admin Dose 200 MG; Start 08/09/16 at 21:00 Sucralfate (Carafate) 1 gm QID NGT Last administered on 08/10/16 20:51; Admin Dose 1 GM; Start 08/09/16 at 21:00 Apixaban 2.5 mg 2.5 mg BID PO Last administered on 08/10/16 20:51; Admin Dose 2.5 MG; Start 08/10/16 at 21:00 Potassium Chloride 250 ml @ 62.5 mls/hr Q4H IVPB Last administered on 07:31; Admin Dose 62.5 MLS/HR; Start 08/11/16 at 08:00; Stop 08/11/16 at 15 :59 Vancomycin HCl/ Sodium Chloride (Vancocin/NS) 250 ml @ 83.333 mls/ hr ONCE IVPB ; Start 08/11/16 at 09:30; Stop 08/11/16 at 15:00 DODIE OLMSTEAD MD Aug 11, 2016 09:08
[2016-08-11] MEDS: SUCRALFATE 1 GM TAB NGT SCH ×4 (09:26→20:48)
[2016-08-11] MEDS: AMIODARONE 200 MG TAB NGT SCH (09:27)
[2016-08-11] MEDS: APIXABAN 5 MG TABLET PO SCH ×2 (09:27→20:48)
[2016-08-11] MEDS ORDERED: VANCOMYCIN 1.5 GM in SOD CHLORIDE 0.9% 250 ML IVPB SCH (09:30)
[2016-08-11 14:55] LABS: Allen Test ACCEPTAB; Arterial Base Excess 2.7 mmol/L (-3.0-3); Arterial COHb 0.1 % (0.0-3.0); Arterial Fraction of Oxyhgb 97.2 % (93.0-99.0); Arterial HCO3 27.6 mmol/L (22.0-26.0); Arterial MetHb 0.3 % (0.0-1.5); Arterial Total Hemglobin 12.3 g/dl (12.0-18.0); Blood Gas PS 10; MODE VENT - CPAP
--- NOTE | 2016-08-11 16:29 | PN ---
Date/Time of Note Date/Time of Note DATE: 08/11/16 TIME: 16:11 Assessment/Plan VTE Prophylaxis VTE Prophylaxis Intervention: other Assessment/Plan Chief Complaint/Hosp Course 1. Acute Resp failure intubated on ventilator due to Pulmonary edema and possible aspiration pneumonia IV abx with Zosyn and vancomycin Weaning trials today, attempt extubation Pulmonology on case 2. Acute on chronic congestive heart failure Continue dialysis for volume overload, continue Lasix IV 3. 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 Type 2 diabetes-stable Insulin sliding scale 5. Atrial fibrillation, rate controlled 6. History of CAD status post CABG 7. Acute on likely chronic kidney disease 2/2 cardiorenal syndrome did not improve, s/p Fidel catheter placement on 08/01/16- Started on HD by drilling field specialist Dr.Balbir Lamar- PPx- on Eliquis Problems: Subjective 24 Hr Interval Summary Subjective hx not possible: pt non-verbal Exam/Review of Systems Vital Signs Vitals Vital Signs Date Time Temp Pulse Resp B/P Pulse Ox O2 Delivery O2 Flow Rate FiO2 08/11/16 15:30 65 93/41 100 08/11/16 15:00 CPAP Mechanical Ventilator 08/11/16 12:00 30 08/11/16 12:00 98.0 08/11/16 11:43 12 Intake and Output 08/10/16 08/10/16 08/11/16 15:00 23:00 07:00 Intake Total 896 ml 1291.680 ml 472.952 ml Output Total 3315 ml 300 ml 330 ml Balance -2419 ml 991.680 ml 142.952 ml Exam Constitutional: non-verbal ENMT: intubated Respiratory: clear to auscultation Cardiovascular: regular rate and rhythm Gastrointestinal: soft, No distended Musculoskeletal: nl extremities to inspection Results Result Diagram: 08/11/16 0330 08/11/16 0330 Results 24 hrs Laboratory Tests Test 08/10/16 20:55 08/11/16 00:54 08/11/16 03:30 08/11/16 05:00 Bedside Glucose 138 148 Activated Partial Thromboplast Time 38.6 H Anion Gap 14 Basophils # 0.0 Basophils % 0.0 Blood Urea Nitrogen 54 H Calcium Level 8.0 L Carbon Dioxide Level 28 Chloride Level 107 Creatinine 1.51 H Eosinophils # 0.1 Eosinophils % 2.9 Glucose Level 133 Hematocrit 35.6 L Hemoglobin 10.7 L INR International Normalized Ratio 1.43 Lymphocytes # 0.4 L Lymphocytes % 10.5 L Mean Corpuscular Hemoglobin 24.9 L Mean Corpuscular Hemoglobin Concent 30.1 L Mean Corpuscular Volume 83.0 Mean Platelet Volume Monocytes # 0.3 Monocytes % 7.1 Neutrophils # 3.2 Neutrophils % 79.3 H Nucleated Red Blood Cells # 0.0 Nucleated Red Blood Cells % 0.5 H Platelet Count 116 L Potassium Level 3.1 L Prothrombin Time 17.5 H Prothrombin Time Ratio 1.4 Random Vancomycin Level 9.8 Red Blood Count 4.29 L Red Cell Distribution Width 23.1 H Sodium Level 146 H White Blood Count 4.1 L Arterial Blood HCO3 25.0 Arterial Blood Base Excess 2.0 Arterial Blood Oxygen Saturation 98.7 Sebastien Test ACCEPTAB Arterial Blood Gas Puncture Site Right Radial Arterial Blood Carboxyhemoglobin 0.4 Arterial Blood Date Drawn 08/11/2016 5:10:32 AM Arterial Blood Methemoglobin 0.3 Arterial Blood pCO2 (Temp correct) 33.7 L Arterial Blood pH (Temp corrected) 7.489 H Arterial Blood pO2 (Temp corrected) 130.9 H Blood Gas A-a O2 Differential 43.4 H Blood Gas Actual Respiration Rate 16 Blood Gas Low PEEP Setting 5.0 Blood Gas Modality VENT - AC Blood Gas Notified Time 08/11/2016 5:21:09 AM Blood Gas Notified Whom MG Blood Gas Respiration Rate 12.0 Blood Gas Specimen Source Blood arterial Blood Gas Temperature 37.0 Blood Gas Tidal Volume 500.0 FiO2 30.0 Oxyhemoglobin Percent 98.0 Total Hemoglobin 11.7 L Test 08/11/16 05:42 08/11/16 09:23 08/11/16 13:12 08/11/16 14:30 Bedside Glucose 143 146 137 Arterial Blood HCO3 27.6 H Arterial Blood Base Excess 2.7 Arterial Blood Oxygen Saturation 97.6 Sebastien Test ACCEPTAB Arterial Blood Gas Puncture Site Right Radial Arterial Blood Carboxyhemoglobin 0.1 Arterial Blood Date Drawn 08/11/2016 2:35:46 PM Arterial Blood Methemoglobin 0.3 Arterial Blood pCO2 (Temp correct) 44.0 Arterial Blood pH (Temp corrected) 7.416 Arterial Blood pO2 (Temp corrected) 107.2 H Blood Gas A-a O2 Differential 55.0 H Blood Gas Actual Respiration Rate 25 Blood Gas Low PEEP Setting 5.0 Blood Gas Modality VENT - CPAP Blood Gas Notified Time 08/11/2016 2:55:34 PM Blood Gas Notified Whom JLD Blood Gas Pressure Support 10 Blood Gas Specimen Source Blood arterial Blood Gas Temperature 37.0 FiO2 30.0 Oxyhemoglobin Percent 97.2 Total Hemoglobin 12.3 Medications Medications Current Medications Aspirin (Halfprin) 81 mg DAILY PO Last administered on 08/05/16 09:06; Admin Dose 81 MG; Start 07/19/16 at 09:00; Status Future Hold Nitroglycerin (Nitroglycerin (Sl Tab) 0.4 Mg) 1 tab DAILY PRN SL CHEST PAIN; Start 07/18/16 at 15:30 Ondansetron HCl (Zofran Inj) 4 mg Q6H PRN IV NAUSEA AND/OR VOMITING Last administered on 08/05/16 23:48; Admin Dose 4 MG; Start 07/18/16 at 15:30 Acetaminophen (Tylenol Tab) 650 mg Q6H PRN PO PAIN LEVEL 1-3 OR FEVER Last administered on 08/02/16 15:25; Admin Dose 650 MG; Start 07/18/16 at 15:30 Acetaminophen (Tylenol Supp) 650 mg Q6H PRN [place] PAIN LEVEL 1-3 OR FEVER; Start 07/18/16 at 15:30 Docusate Sodium (Colace) 100 mg Q12H PRN PO CONSTIPATION Last administered on 20:19; Admin Dose 100 MG; Start 07/18/16 at 15:30 Magnesium Hydroxide (Milk Of Mag) 30 ml DAILY PRN PO CONSTIPATION Last administered on 07/28/16 23:03; Admin Dose 30 ML; Start 07/18/16 at 15:30 Bisacodyl (Dulcolax Supp) 10 mg DAILY PRN [place] CONSTIPATION; Start 07/18/16 at 15 :30 Miscellaneous Information 1 ea NOTE XX ; Start 07/18/16 at 17:30 Glucose (Glutose) 15 gm Q15M PRN PO DECREASED GLUCOSE; Start 07/18/16 at 17:30 Glucose (Glutose) 22.5 gm Q15M PRN PO DECREASED GLUCOSE; Start 07/18/16 at 17: 30 Dextrose (D50w Syringe) 25 ml Q15M PRN IV DECREASED GLUCOSE; Start 07/18/16 at 17:30 Dextrose (D50w Syringe) 50 ml Q15M PRN IV DECREASED GLUCOSE; Start 07/18/16 at 17:30 Glucagon (Glucagen) 1 mg Q15M PRN IM DECREASED GLUCOSE; Start 07/18/16 at 17:30 Glucose (Glutose) 15 gm Q15M PRN BUCCAL DECREASED GLUCOSE; Start 07/18/16 at 17 :30 Guaifenesin/ Codeine Phosphate (Robitussin Ac Liquid Cup) 10 ml Q4H PRN PO COUGH Last administered on 07/19/16 19:43; Admin Dose 10 ML; Start 07/18/16 at 23:30 Carvedilol (Coreg) 3.125 mg BID PO Last administered on 08/03/16 20:05; Admin Dose 3.125 MG; Start 07/24/16 at 09:00; Status Future Hold Isosorbide Dinitrate 10 mg 10 mg TID PO Last administered on 08/03/16 19:58; Admin Dose 10 MG; Start 07/30/16 at 21:00; Status Future Hold Propofol 100 ml @ 2.055 mls/ hr Q12H IV Last administered on 08/11/16 05:53; Admin Dose 6.136 MLS/HR; Start 08/06/16 at 03:30 Vasopressin/ Dextrose (Vasostrict/D5W) 60 ml @ 1.2 mls/hr Q12H IV Last administered on 08/06/16 18:37; Admin Dose 0.9 MLS/HR; Start 08/06/16 at 03:30 Furosemide 40 mg 40 mg DAILY@06 IV Last administered on 08/11/16 05:44; Admin Dose 40 MG; Start 08/07/16 at 10:00 Piperacillin Sod/ Tazobactam Sod 50 ml @ 100 mls/hr Q8 IVPB Last administered on 08/11/16 15:49; Admin Dose 100 MLS/HR; Start 08/07/16 at 14:00 Sodium Chloride (1/2 NS) 1,000 ml @ 20 mls/hr Q24H IV Last administered on 23:26; Admin Dose 20 MLS/HR; Start 08/08/16 at 07:00 Pantoprazole (Protonix Iv) 40 mg DAILY@06 IV Last administered on 08/11/16 05: 44; Admin Dose 40 MG; Start 08/10/16 at 06:00 Insulin Aspart NOVOLOG *MILD* ALGORI... Q4 SC Last administered on 08/11/16 09 :34; Admin Dose 1 UNIT; Start 08/09/16 at 13:00 Norepinephrine/ Dextrose (Levophed/D5W) 500 ml @ 1.87 mls/hr TITRATE IV ; Start 08/09/16 at 13:30 Amiodarone HCl (Cordarone) 200 mg DAILY NGT Last administered on 08/11/16 09: 27; Admin Dose 200 MG; Start 08/09/16 at 21:00 Sucralfate (Carafate) 1 gm QID NGT Last administered on 08/11/16 13:15; Admin Dose 1 GM; Start 08/09/16 at 21:00 Apixaban (Eliquis) 2.5 mg BID PO Last administered on 08/11/16 09:27; Admin Dose 2.5 MG; Start 08/10/16 at 21:00 MURIEL EWING Aug 11, 2016 16:22
--- NOTE | 2016-08-11 17:46 | RADRPT ---
PROCEDURE: XR Chest. CLINICAL INDICATION: Check PICC line position. TECHNIQUE: Single frontal view. COMPARISON: 08/11/2016. FINDINGS: There is a right arm PICC line with the tip in the lower superior vena cava. The endotracheal tube, nasogastric tube, and left side single lead permanent pacemaker/internal cardiac defibrillator appe ars satisfactory. The heart is enlarged. There are sternal wires and mediastinal clips. Pulmonary edema is unchanged . There is no pleural effusion. There is no pneumothorax. IMPRESSION: 1. Satisfactory position of right arm PICC line. 2. No other change from the prior study done earlier the same day. RPTAT: QQ .Eugenio Ruano MD, MD Date Time Electronically viewed and signed by .Eugenio Ruano MD, MD on 08/11/2016 17:46 .R/
[2016-08-11] MEDS ORDERED: POTASSIUM CHLORIDE (SR) 10 MEQ TAB PO ONE (21:00)
--- NOTE | 2016-08-11 21:03 | CONS ---
Date/Time of Note Date/Time of Note DATE: 08/11/16 TIME: 21:01 Assessment/Plan Assessment/Plan Chief Complaint/Hosp Course 1. Patient has acute on chronic renal failure with acute kidney injury due to systolic heart failure.ON HD 2. The patient has LOW EF now on vent/cardio renal syndrome 3. Anemia. 4. ASHD 5. 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 11 chest xr better no leg edema plan continue hd for now weaning per pulmonary cardiac issue per cardio PLAN CONTINUE per pulmonary HD PRN kcl labs Problems: Consultation Date/Type/Reason Admit Date/Time Jul 18, 2016 at 14:06 Type of Consultation: renal Referring Provider: MURIEL EWING 24 HR Interval Summary Subjective hx not possible: pt non-verbal Exam/Review of Systems Vital Signs Vitals Vital Signs Date Time Temp Pulse Resp B/P Pulse Ox O2 Delivery O2 Flow Rate FiO2 08/11/16 20:57 3.0 08/11/16 18:30 61 89/42 100 08/11/16 18:00 Nasal Cannula 08/11/16 16:00 30 08/11/16 16:00 97.7 08/11/16 15:40 22 Intake and Output 08/10/16 08/10/16 08/11/16 15:00 23:00 07:00 Intake Total 896 ml 1291.680 ml 472.952 ml Output Total 3315 ml 300 ml 330 ml Balance -2419 ml 991.680 ml 142.952 ml Exam Neck: supple Respiratory: diminished breath sounds Cardiovascular: regular rate and rhythm Gastrointestinal: soft Musculoskeletal: nl extremities to inspection Extremities: edema (tr) Results Result Diagram: 08/11/16 0330 08/11/16 0330 Results 24 hrs Laboratory Tests Test 08/11/16 00:54 08/11/16 03:30 08/11/16 05:00 08/11/16 05:42 Bedside Glucose 148 143 Activated Partial Thromboplast Time 38.6 H Anion Gap 14 Basophils # 0.0 Basophils % 0.0 Blood Urea Nitrogen 54 H Calcium Level 8.0 L Carbon Dioxide Level 28 Chloride Level 107 Creatinine 1.51 H Eosinophils # 0.1 Eosinophils % 2.9 Glucose Level 133 Hematocrit 35.6 L Hemoglobin 10.7 L INR International Normalized Ratio 1.43 Lymphocytes # 0.4 L Lymphocytes % 10.5 L Mean Corpuscular Hemoglobin 24.9 L Mean Corpuscular Hemoglobin Concent 30.1 L Mean Corpuscular Volume 83.0 Mean Platelet Volume Monocytes # 0.3 Monocytes % 7.1 Neutrophils # 3.2 Neutrophils % 79.3 H Nucleated Red Blood Cells # 0.0 Nucleated Red Blood Cells % 0.5 H Platelet Count 116 L Potassium Level 3.1 L Prothrombin Time 17.5 H Prothrombin Time Ratio 1.4 Random Vancomycin Level 9.8 Red Blood Count 4.29 L Red Cell Distribution Width 23.1 H Sodium Level 146 H White Blood Count 4.1 L Arterial Blood HCO3 25.0 Arterial Blood Base Excess 2.0 Arterial Blood Oxygen Saturation 98.7 Sebastien Test ACCEPTAB Arterial Blood Gas Puncture Site Right Radial Arterial Blood Carboxyhemoglobin 0.4 Arterial Blood Date Drawn 08/11/2016 5:10:32 AM Arterial Blood Methemoglobin 0.3 Arterial Blood pCO2 (Temp correct) 33.7 L Arterial Blood pH (Temp corrected) 7.489 H Arterial Blood pO2 (Temp corrected) 130.9 H Blood Gas A-a O2 Differential 43.4 H Blood Gas Actual Respiration Rate 16 Blood Gas Low PEEP Setting 5.0 Blood Gas Modality VENT - AC Blood Gas Notified Time 08/11/2016 5:21:09 AM Blood Gas Notified Whom MG Blood Gas Respiration Rate 12.0 Blood Gas Specimen Source Blood arterial Blood Gas Temperature 37.0 Blood Gas Tidal Volume 500.0 FiO2 30.0 Oxyhemoglobin Percent 98.0 Total Hemoglobin 11.7 L Test 08/11/16 09:23 08/11/16 13:12 08/11/16 14:30 08/11/16 17:23 Bedside Glucose 146 137 95 Arterial Blood HCO3 27.6 H Arterial Blood Base Excess 2.7 Arterial Blood Oxygen Saturation 97.6 Sebastien Test ACCEPTAB Arterial Blood Gas Puncture Site Right Radial Arterial Blood Carboxyhemoglobin 0.1 Arterial Blood Date Drawn 08/11/2016 2:35:46 PM Arterial Blood Methemoglobin 0.3 Arterial Blood pCO2 (Temp correct) 44.0 Arterial Blood pH (Temp corrected) 7.416 Arterial Blood pO2 (Temp corrected) 107.2 H Blood Gas A-a O2 Differential 55.0 H Blood Gas Actual Respiration Rate 25 Blood Gas Low PEEP Setting 5.0 Blood Gas Modality VENT - CPAP Blood Gas Notified Time 08/11/2016 2:55:34 PM Blood Gas Notified Whom JLD Blood Gas Pressure Support 10 Blood Gas Specimen Source Blood arterial Blood Gas Temperature 37.0 FiO2 30.0 Oxyhemoglobin Percent 97.2 Total Hemoglobin 12.3 Test 08/11/16 20:47 Bedside Glucose 130 Medications Medications Current Medications Aspirin (Halfprin) 81 mg DAILY PO Last administered on 08/05/16 09:06; Admin Dose 81 MG; Start 07/19/16 at 09:00; Status Future Hold Nitroglycerin (Nitroglycerin (Sl Tab) 0.4 Mg) 1 tab DAILY PRN SL CHEST PAIN; Start 07/18/16 at 15:30 Ondansetron HCl (Zofran Inj) 4 mg Q6H PRN IV NAUSEA AND/OR VOMITING Last administered on 08/05/16 23:48; Admin Dose 4 MG; Start 07/18/16 at 15:30 Acetaminophen (Tylenol Tab) 650 mg Q6H PRN PO PAIN LEVEL 1-3 OR FEVER Last administered on 08/02/16 15:25; Admin Dose 650 MG; Start 07/18/16 at 15:30 Acetaminophen (Tylenol Supp) 650 mg Q6H PRN [place] PAIN LEVEL 1-3 OR FEVER; Start 07/18/16 at 15:30 Docusate Sodium (Colace) 100 mg Q12H PRN PO CONSTIPATION Last administered on 20:19; Admin Dose 100 MG; Start 07/18/16 at 15:30 Magnesium Hydroxide (Milk Of Mag) 30 ml DAILY PRN PO CONSTIPATION Last administered on 07/28/16 23:03; Admin Dose 30 ML; Start 07/18/16 at 15:30 Bisacodyl (Dulcolax Supp) 10 mg DAILY PRN [place] CONSTIPATION; Start 07/18/16 at 15 :30 Miscellaneous Information 1 ea NOTE XX ; Start 07/18/16 at 17:30 Glucose (Glutose) 15 gm Q15M PRN PO DECREASED GLUCOSE; Start 07/18/16 at 17:30 Glucose (Glutose) 22.5 gm Q15M PRN PO DECREASED GLUCOSE; Start 07/18/16 at 17: 30 Dextrose (D50w Syringe) 25 ml Q15M PRN IV DECREASED GLUCOSE; Start 07/18/16 at 17:30 Dextrose (D50w Syringe) 50 ml Q15M PRN IV DECREASED GLUCOSE; Start 07/18/16 at 17:30 Glucagon (Glucagen) 1 mg Q15M PRN IM DECREASED GLUCOSE; Start 07/18/16 at 17:30 Glucose (Glutose) 15 gm Q15M PRN BUCCAL DECREASED GLUCOSE; Start 07/18/16 at 17 :30 Guaifenesin/ Codeine Phosphate (Robitussin Ac Liquid Cup) 10 ml Q4H PRN PO COUGH Last administered on 07/19/16 19:43; Admin Dose 10 ML; Start 07/18/16 at 23:30 Carvedilol (Coreg) 3.125 mg BID PO Last administered on 08/03/16 20:05; Admin Dose 3.125 MG; Start 07/24/16 at 09:00; Status Future Hold Isosorbide Dinitrate 10 mg 10 mg TID PO Last administered on 08/03/16 19:58; Admin Dose 10 MG; Start 07/30/16 at 21:00; Status Future Hold Propofol 100 ml @ 2.055 mls/ hr Q12H IV Last administered on 08/11/16 05:53; Admin Dose 6.136 MLS/HR; Start 08/06/16 at 03:30 Vasopressin/ Dextrose (Vasostrict/D5W) 60 ml @ 1.2 mls/hr Q12H IV Last administered on 08/06/16 18:37; Admin Dose 0.9 MLS/HR; Start 08/06/16 at 03:30 Furosemide 40 mg 40 mg DAILY@06 IV Last administered on 08/11/16 05:44; Admin Dose 40 MG; Start 08/07/16 at 10:00 Piperacillin Sod/ Tazobactam Sod 50 ml @ 100 mls/hr Q8 IVPB Last administered on 08/11/16 20:48; Admin Dose 100 MLS/HR; Start 08/07/16 at 14:00 Sodium Chloride (1/2 NS) 1,000 ml @ 20 mls/hr Q24H IV Last administered on 23:26; Admin Dose 20 MLS/HR; Start 08/08/16 at 07:00 Pantoprazole (Protonix Iv) 40 mg DAILY@06 IV Last administered on 08/11/16 05: 44; Admin Dose 40 MG; Start 08/10/16 at 06:00 Insulin Aspart NOVOLOG *MILD* ALGORI... Q4 SC Last administered on 08/11/16 09 :34; Admin Dose 1 UNIT; Start 08/09/16 at 13:00 Norepinephrine/ Dextrose (Levophed/D5W) 500 ml @ 1.87 mls/hr TITRATE IV ; Start 08/09/16 at 13:30 Amiodarone HCl (Cordarone) 200 mg DAILY NGT Last administered on 08/11/16 09: 27; Admin Dose 200 MG; Start 08/09/16 at 21:00 Sucralfate (Carafate) 1 gm QID NGT Last administered on 08/11/16 20:48; Admin Dose 1 GM; Start 08/09/16 at 21:00 Apixaban (Eliquis) 2.5 mg BID PO Last administered on 08/11/16 20:48; Admin Dose 2.5 MG; Start 08/10/16 at 21:00 IV Flush (NS 10 ml) 10 ml PRN PRN IV IV PROTOCOL; Start 08/11/16 at 17:00 Potassium Chloride (Klor-Con 10) 30 meq ONCE ONCE PO ; Start 08/11/16 at 21:00 ; Stop 08/11/16 at 21:01; Status YANIRA LOPEZ MD Aug 11, 2016 21:02
--- NOTE | 2016-08-11 23:20 | RADRPT ---
PROCEDURE: Ultrasound guidance for placement of needle in right upper extremity vein. CLINICAL INDICATION: Venous access. TECHNIQUE: Limited sonography of the right upper extremity was performed. Ultrasound images were recorded and stored in the patient's medical record. COMPARISON: None. FINDINGS: The ultrasound images demonstrate a patent right upper extremity vein. The PICC line was inserted b y the PICC line nurse. IMPRESSION: 1. Ultrasound guidance for a needle placement in a right upper extremity vein. 2. The visualized right upper extremity vein is patent. RPTAT: QQ .Eugenio Ruano MD, MD Date Time Electronically viewed and signed by .Eugenio Ruano MD, MD on 08/11/2016 23:20 .R/
[2016-08-12] VITALS (27 sets, daily range): BP systolic 84–119; BP diastolic 35–69; PULSE 59–250; RESP 14–18
[2016-08-12] MEDS: INSULIN ASPART [NOVOLOG] 3 ML PEN SC SCH ×6 (01:00→20:31)
[2016-08-12] MEDS ORDERED: POTASSIUM CHLORIDE 20 MEQ POWDER FOR ORAL SOLN PO ONE (01:41)
[2016-08-12] MEDS: VASOPRESSIN 60 UNIT in DEXTROSE 5% 57 ML IV SCH ×2 (03:30→15:25)
[2016-08-12] MEDS: PROPOFOL 100 ML IV SCH ×2 (03:30→15:25)
[2016-08-12 04:44] LABS: ADD SCAN DIFF NO
[2016-08-12 04:49] LABS: ABNORMAL IP MESSAGE 1; EOSINOPHILS # 0.1 10^3/ul (0.0-0.5); EOSINOPHILS % 2.2 % (0.0-7.0); HEMATOCRIT 35.5 % (42.0-52.0); HEMOGLOBIN 10.4 g/dl (14.0-18.0); LYMPHOCYTES # 0.5 10^3/ul (0.8-2.9); MEAN CORPUSCULAR HEMOGLOBIN 24.3 pg (29.0-33.0); MEAN CORPUSCULAR HGB CONC 29.3 g/dl (32.0-37.0); MEAN CORPUSCULAR VOLUME 82.9 fl (82.0-101.0); MEAN PLATELET VOLUME 10.8 fl (7.4-10.4); MONOCYTE # 0.2 10^3/ul (0.3-0.9); NEUTROPHIL # 3.7 10^3/ul (1.6-7.5); PLATELET COUNT 125 10^3/UL (140-415); RED BLOOD COUNT 4.28 10^6/ul (4.70-6.10); WHITE BLOOD COUNT 4.6 10^3/ul (4.8-10.8)
[2016-08-12 05:23] LABS: LYMPHOCYTES % 11.6 % (15.0-51.0)
[2016-08-12] MEDS: FUROSEMIDE 40 MG INJ IV SCH (05:24)
[2016-08-12] MEDS: PANTOPRAZOLE 40 MG INJ IV SCH (05:24)
[2016-08-12] MEDS: PIPER-TAZO 2.25 GM (PMX) 50 ML IVPB SCH ×3 (05:24→22:30)
[2016-08-12 05:33] LABS: POTASSIUM 3.8 mmol/L (3.5-5.1)
[2016-08-12 05:36] LABS: CREATININE 1.32 mg/dl (0.61-1.24)
[2016-08-12 05:37] LABS: MAGNESIUM 1.7 mg/dl (1.7-2.5); PHOSPHORUS 1.6 mg/dl (2.5-4.9)
[2016-08-12 07:37] LABS: AADO2 Arterial 27.8 mmHg (7.0-24.0); Allen Test ACCEPTAB; Arterial Base Excess 2.4 mmol/L (-3.0-3); Arterial COHb 0.2 % (0.0-3.0); Arterial Fraction of Oxyhgb 97.7 % (93.0-99.0); Arterial HCO3 27.1 mmol/L (22.0-26.0); Arterial MetHb 0.3 % (0.0-1.5); Arterial Total Hemglobin 11.9 g/dl (12.0-18.0); MODE NASAL CANNULA
[2016-08-12] MEDS: SOD CHLORIDE 0.45% 1,000 ML IV SCH (08:34)
[2016-08-12] MEDS: APIXABAN 5 MG TABLET PO SCH ×2 (08:35→20:25)
[2016-08-12] MEDS: AMIODARONE 200 MG TAB NGT SCH (08:35)
[2016-08-12] MEDS: SUCRALFATE 1 GM TAB NGT SCH ×4 (08:35→20:25)
[2016-08-12] MEDS ORDERED: SOD CHLORIDE 0.9% 100 ML ONE (09:25)
--- NOTE | 2016-08-12 09:40 | RADRPT ---
PROCEDURE: Chest Radiograph. CLINICAL INDICATION: Pneumonia. CHF. TECHNIQUE: Single frontal chest radiograph. COMPARISON: Chest radiograph 08/11/2016. FINDINGS: A nasogastric tube, right upper extremity PICC, and left chest wall defibrillator remain in place. The heart remains enlarged. Atherosclerotic calcifications are present. There is stable pulmonary edema. There is patchy opacification of the left lung base with obscuration of the left hemidiaphrag m suggesting left basilar infiltrate and/or small effusion, slightly worsened when compared to prior study. The bones are intact. IMPRESSION: 1. 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 2. Otherwise stable radiographic appearance of the chest compared to 08/11/2016. RPTAT: KK .Marquis Thomas MD, MD Date Time Electronically viewed and signed by .Marquis Thomas MD, on 08/12/2016 09:40 .B/
[2016-08-12] MEDS ORDERED: POTASSIUM PHOSPHATE 40 MEQ in SOD CHLORIDE 0.9% 250 ML IVPB SCH (11:45)
--- NOTE | 2016-08-12 11:45 | CONS ---
Date/Time of Note Date/Time of Note DATE: 08/12/16 TIME: 11:41 Assessment/Plan Assessment/Plan Chief Complaint/Hosp Course IMPRESSION: 1. Congestive heart failure exacerbation, systolic, acute on chronic. EF 25% by most recent echo-worsening. Minimally + troponin after cardiac arrest 2. Resp failure s/p intubation 3. Hypotension/shock-on levo and vasopressin 3. History of coronary artery bypass graft surgery. 4. Abnormal electrocardiogram . MIldly postive trop after cardiac arrest 5. History of paroxysmal atrial fibrillation-apixaban held due to coagulopathy 6. Acute on chronic renal failure-Now on HD 8. Anemia, mild. 9. 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 -Contijnue apixaban now that coagulopathy improved Problems: Consultation Date/Type/Reason Admit Date/Time Jul 18, 2016 at 14:06 Initial Consult Date 07/19/2016 Type of Consultation: Cardiology Reason for Consultation CHF Referring Provider: MURIEL EWING Exam/Review of Systems Vital Signs Vitals Vital Signs Date Time Temp Pulse Resp B/P Pulse Ox O2 Delivery O2 Flow Rate FiO2 08/12/16 10:00 60 14 98/44 100 Nasal Cannula 3.0 08/12/16 07:00 97.2 08/11/16 16:00 30 Intake and Output 08/11/16 08/11/16 08/12/16 15:00 23:00 07:00 Intake Total 743.15 ml 586.5 ml 450 ml Output Total 865 ml 465 ml 945 ml Balance -121.85 ml 121.5 ml -495 ml Exam Review of Systems: CONSTITUTIONAL: No fevers, chills. PULMONARY: s/p extubation CARDIOVASCULAR: No obvious chest pain/palpitations GASTROINTESTINAL: No nausea/vomiting. GENITOURINARY: No hematuria/dysuria. MUSCULOSKELETAL: No obvious myagias/arthalgias. PSYCHIATRIC: The patient denies depression. NEUROLOGIC: lethargic Constitutional: alert Psych: no complaints Head: normocephalic ENMT: mucosa pink and moist Neck: jvd (9-10 cm water), supple Respiratory: diminished breath sounds (at bases/B) Cardiovascular: regular rate and rhythm Gastrointestinal: non-tender, soft Musculoskeletal: muscle weakness (generalized) Extremities: edema (none) Results Result Diagram: 08/12/16 0430 08/12/16 0430 Results 24 hrs Laboratory Tests Test 08/11/16 13:12 08/11/16 14:30 08/11/16 17:23 08/11/16 20:47 Bedside Glucose 137 95 130 Arterial Blood HCO3 27.6 H Arterial Blood Base Excess 2.7 Arterial Blood Oxygen Saturation 97.6 Sebastien Test ACCEPTAB Arterial Blood Gas Puncture Site Right Radial Arterial Blood Carboxyhemoglobin 0.1 Arterial Blood Date Drawn 08/11/2016 2:35:46 PM Arterial Blood Methemoglobin 0.3 Arterial Blood pCO2 (Temp correct) 44.0 Arterial Blood pH (Temp corrected) 7.416 Arterial Blood pO2 (Temp corrected) 107.2 H Blood Gas A-a O2 Differential 55.0 H Blood Gas Actual Respiration Rate 25 Blood Gas Low PEEP Setting 5.0 Blood Gas Modality VENT - CPAP Blood Gas Notified Time 08/11/2016 2:55:34 PM Blood Gas Notified Whom JLD Blood Gas Pressure Support 10 Blood Gas Specimen Source Blood arterial Blood Gas Temperature 37.0 FiO2 30.0 Oxyhemoglobin Percent 97.2 Total Hemoglobin 12.3 Test 08/11/16 22:10 08/12/16 01:37 08/12/16 04:30 08/12/16 05:26 Potassium Level 3.4 L 3.8 Bedside Glucose 140 136 Anion Gap 13 Basophils # 0.0 Basophils % 0.0 Blood Urea Nitrogen 50 H Calcium Level 8.0 L Carbon Dioxide Level 29 Chloride Level 107 Creatinine 1.32 H Eosinophils # 0.1 Eosinophils % 2.2 Glucose Level 139 Hematocrit 35.5 L Hemoglobin 10.4 L Lymphocytes # 0.5 L Lymphocytes % 11.6 L Magnesium Level 1.7 Mean Corpuscular Hemoglobin 24.3 L Mean Corpuscular Hemoglobin Concent 29.3 L Mean Corpuscular Volume 82.9 Mean Platelet Volume 10.8 H Monocytes # 0.2 L Monocytes % 5.0 Neutrophils # 3.7 Neutrophils % 81.0 H Nucleated Red Blood Cells # 0.0 Nucleated Red Blood Cells % 0.0 Phosphorus Level 1.6 L Platelet Count 125 L Red Blood Count 4.28 L Red Cell Distribution Width 23.0 H Sodium Level 145 H White Blood Count 4.6 L Test 08/12/16 07:00 08/12/16 08:31 Arterial Blood HCO3 27.1 H Arterial Blood Base Excess 2.4 Arterial Blood Oxygen Saturation 98.2 Sebastien Test ACCEPTAB Arterial Blood Gas Puncture Site Right Radial Arterial Blood Carboxyhemoglobin 0.2 Arterial Blood Date Drawn 08/12/2016 7:10:28 AM Arterial Blood Methemoglobin 0.3 Arterial Blood pCO2 (Temp correct) 42.7 Arterial Blood pH (Temp corrected) 7.421 Arterial Blood pO2 (Temp corrected) 114.2 H Blood Gas A-a O2 Differential 27.8 H Blood Gas Modality NASAL CANNULA Blood Gas Notified Time 08/12/2016 7:36:13 AM Blood Gas Notified Whom JLD Blood Gas Specimen Source Blood arterial Blood Gas Temperature 37.0 FiO2 27.0 Oxyhemoglobin Percent 97.7 Total Hemoglobin 11.9 L Bedside Glucose 139 Medications Medications Current Medications Aspirin (Halfprin) 81 mg DAILY PO Last administered on 08/05/16 09:06; Admin Dose 81 MG; Start 07/19/16 at 09:00; Status Future Hold Nitroglycerin (Nitroglycerin (Sl Tab) 0.4 Mg) 1 tab DAILY PRN SL CHEST PAIN; Start 07/18/16 at 15:30 Ondansetron HCl (Zofran Inj) 4 mg Q6H PRN IV NAUSEA AND/OR VOMITING Last administered on 08/05/16 23:48; Admin Dose 4 MG; Start 07/18/16 at 15:30 Acetaminophen (Tylenol Tab) 650 mg Q6H PRN PO PAIN LEVEL 1-3 OR FEVER Last administered on 08/02/16 15:25; Admin Dose 650 MG; Start 07/18/16 at 15:30 Acetaminophen (Tylenol Supp) 650 mg Q6H PRN [place] PAIN LEVEL 1-3 OR FEVER; Start 07/18/16 at 15:30 Docusate Sodium (Colace) 100 mg Q12H PRN PO CONSTIPATION Last administered on 20:19; Admin Dose 100 MG; Start 07/18/16 at 15:30 Magnesium Hydroxide (Milk Of Mag) 30 ml DAILY PRN PO CONSTIPATION Last administered on 07/28/16 23:03; Admin Dose 30 ML; Start 07/18/16 at 15:30 Bisacodyl (Dulcolax Supp) 10 mg DAILY PRN [place] CONSTIPATION; Start 07/18/16 at 15 :30 Miscellaneous Information 1 ea NOTE XX ; Start 07/18/16 at 17:30 Glucose (Glutose) 15 gm Q15M PRN PO DECREASED GLUCOSE; Start 07/18/16 at 17:30 Glucose (Glutose) 22.5 gm Q15M PRN PO DECREASED GLUCOSE; Start 07/18/16 at 17: 30 Dextrose (D50w Syringe) 25 ml Q15M PRN IV DECREASED GLUCOSE; Start 07/18/16 at 17:30 Dextrose (D50w Syringe) 50 ml Q15M PRN IV DECREASED GLUCOSE; Start 07/18/16 at 17:30 Glucagon (Glucagen) 1 mg Q15M PRN IM DECREASED GLUCOSE; Start 07/18/16 at 17:30 Glucose (Glutose) 15 gm Q15M PRN BUCCAL DECREASED GLUCOSE; Start 07/18/16 at 17 :30 Guaifenesin/ Codeine Phosphate (Robitussin Ac Liquid Cup) 10 ml Q4H PRN PO COUGH Last administered on 07/19/16 19:43; Admin Dose 10 ML; Start 07/18/16 at 23:30 Carvedilol (Coreg) 3.125 mg BID PO Last administered on 08/03/16 20:05; Admin Dose 3.125 MG; Start 07/24/16 at 09:00; Status Future Hold Isosorbide Dinitrate 10 mg 10 mg TID PO Last administered on 08/03/16 19:58; Admin Dose 10 MG; Start 07/30/16 at 21:00; Status Future Hold Propofol 100 ml @ 2.055 mls/ hr Q12H IV Last administered on 08/11/16 05:53; Admin Dose 6.136 MLS/HR; Start 08/06/16 at 03:30 Vasopressin/ Dextrose (Vasostrict/D5W) 60 ml @ 1.2 mls/hr Q12H IV Last administered on 08/06/16 18:37; Admin Dose 0.9 MLS/HR; Start 08/06/16 at 03:30 Furosemide 40 mg 40 mg DAILY@06 IV Last administered on 08/12/16 05:24; Admin Dose 40 MG; Start 08/07/16 at 10:00 Piperacillin Sod/ Tazobactam Sod 50 ml @ 100 mls/hr Q8 IVPB Last administered on 08/12/16 05:24; Admin Dose 100 MLS/HR; Start 08/07/16 at 14:00 Sodium Chloride (1/2 NS) 1,000 ml @ 20 mls/hr Q24H IV Last administered on 08:34; Admin Dose 20 MLS/HR; Start 08/08/16 at 07:00 Pantoprazole (Protonix Iv) 40 mg DAILY@06 IV Last administered on 08/12/16 05: 24; Admin Dose 40 MG; Start 08/10/16 at 06:00 Insulin Aspart NOVOLOG *MILD* ALGORI... Q4 SC Last administered on 08/11/16 09 :34; Admin Dose 1 UNIT; Start 08/09/16 at 13:00 Norepinephrine/ Dextrose (Levophed/D5W) 500 ml @ 1.87 mls/hr TITRATE IV ; Start 08/09/16 at 13:30 Amiodarone HCl (Cordarone) 200 mg DAILY NGT Last administered on 08/12/16 08: 35; Admin Dose 200 MG; Start 08/09/16 at 21:00 Sucralfate (Carafate) 1 gm QID NGT Last administered on 08/12/16 08:35; Admin Dose 1 GM; Start 08/09/16 at 21:00 Apixaban (Eliquis) 2.5 mg BID PO Last administered on 08/12/16 08:35; Admin Dose 2.5 MG; Start 08/10/16 at 21:00 IV Flush 10 ml 10 ml PRN PRN IV IV PROTOCOL; Start 08/11/16 at 17:00 Potassium Phosphate/Sodium Chloride (K Phos (Meq)/NS) 259.0909 ml @ 64.773 m... ONCE IVPB ; Start 08/12/16 at 11:45; Stop 08/12/16 at 15:44 POLI SAN Aug 12, 2016 11:45
--- NOTE | 2016-08-12 13:45 | PN ---
Date/Time of Note Date/Time of Note DATE: 08/12/16 TIME: 13:36 Assessment/Plan VTE Prophylaxis VTE Prophylaxis Intervention: other Assessment/Plan Chief Complaint/Hosp Course 1. Acute Resp failure secondary to pulmonary edema and possible aspiration pneumonia-now extubated IV abx with Zosyn and vancomycin Pulmonology on case 2. Acute on chronic congestive heart failure Continue dialysis for volume overload, continue Lasix IV 3. 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 Type 2 diabetes-stable Insulin sliding scale 5. Atrial fibrillation, rate controlled 6. History of CAD status post CABG 7. Acute on likely chronic kidney disease 2/2 cardiorenal syndrome did not improve, s/p Fidel catheter placement on 08/01/16- Started on HD by heel emery buffer Dr.Balbir Lamar- 8. Acute encephalopathy secondary to delirium Speech therapy bedside swallow eval, if patient is able to swallow will DC NG tube and start p.o. feeding PPx- on Eliquis Problems: Subjective 24 Hr Interval Summary Constitutional: disoriented Exam/Review of Systems Vital Signs Vitals Vital Signs Date Time Temp Pulse Resp B/P Pulse Ox O2 Delivery O2 Flow Rate FiO2 08/12/16 12:00 97.8 62 17 106/43 100 Nasal Cannula 3.0 08/11/16 16:00 30 Intake and Output 08/11/16 08/11/16 08/12/16 15:00 23:00 07:00 Intake Total 743.15 ml 586.5 ml 450 ml Output Total 865 ml 465 ml 945 ml Balance -121.85 ml 121.5 ml -495 ml Exam Psych: confusion Respiratory: clear to auscultation Cardiovascular: regular rate and rhythm Gastrointestinal: soft, No distended Musculoskeletal: nl extremities to inspection Results Result Diagram: 08/12/16 0430 08/12/16 0430 Results 24 hrs Laboratory Tests Test 08/11/16 14:30 08/11/16 17:23 08/11/16 20:47 08/11/16 22:10 Arterial Blood HCO3 27.6 H Arterial Blood Base Excess 2.7 Arterial Blood Oxygen Saturation 97.6 Sebastien Test ACCEPTAB Arterial Blood Gas Puncture Site Right Radial Arterial Blood Carboxyhemoglobin 0.1 Arterial Blood Date Drawn 08/11/2016 2:35:46 PM Arterial Blood Methemoglobin 0.3 Arterial Blood pCO2 (Temp correct) 44.0 Arterial Blood pH (Temp corrected) 7.416 Arterial Blood pO2 (Temp corrected) 107.2 H Blood Gas A-a O2 Differential 55.0 H Blood Gas Actual Respiration Rate 25 Blood Gas Low PEEP Setting 5.0 Blood Gas Modality VENT - CPAP Blood Gas Notified Time 08/11/2016 2:55:34 PM Blood Gas Notified Whom D Blood Gas Pressure Support 10 Blood Gas Specimen Source Blood arterial Blood Gas Temperature 37.0 FiO2 30.0 Oxyhemoglobin Percent 97.2 Total Hemoglobin 12.3 Bedside Glucose 95 130 Potassium Level 3.4 L Test 08/12/16 01:37 08/12/16 04:30 08/12/16 05:26 08/12/16 07:00 Bedside Glucose 140 136 Anion Gap 13 Basophils # 0.0 Basophils % 0.0 Blood Urea Nitrogen 50 H Calcium Level 8.0 L Carbon Dioxide Level 29 Chloride Level 107 Creatinine 1.32 H Eosinophils # 0.1 Eosinophils % 2.2 Glucose Level 139 Hematocrit 35.5 L Hemoglobin 10.4 L Lymphocytes # 0.5 L Lymphocytes % 11.6 L Magnesium Level 1.7 Mean Corpuscular Hemoglobin 24.3 L Mean Corpuscular Hemoglobin Concent 29.3 L Mean Corpuscular Volume 82.9 Mean Platelet Volume 10.8 H Monocytes # 0.2 L Monocytes % 5.0 Neutrophils # 3.7 Neutrophils % 81.0 H Nucleated Red Blood Cells # 0.0 Nucleated Red Blood Cells % 0.0 Phosphorus Level 1.6 L Platelet Count 125 L Potassium Level 3.8 Red Blood Count 4.28 L Red Cell Distribution Width 23.0 H Sodium Level 145 H White Blood Count 4.6 L Arterial Blood HCO3 27.1 H Arterial Blood Base Excess 2.4 Arterial Blood Oxygen Saturation 98.2 Sebastien Test ACCEPTAB Arterial Blood Gas Puncture Site Right Radial Arterial Blood Carboxyhemoglobin 0.2 Arterial Blood Date Drawn 08/12/2016 7:10:28 AM Arterial Blood Methemoglobin 0.3 Arterial Blood pCO2 (Temp correct) 42.7 Arterial Blood pH (Temp corrected) 7.421 Arterial Blood pO2 (Temp corrected) 114.2 H Blood Gas A-a O2 Differential 27.8 H Blood Gas Modality NASAL CANNULA Blood Gas Notified Time 08/12/2016 7:36:13 AM Blood Gas Notified Whom JLD Blood Gas Specimen Source Blood arterial Blood Gas Temperature 37.0 FiO2 27.0 Oxyhemoglobin Percent 97.7 Total Hemoglobin 11.9 L Test 08/12/16 08:31 08/12/16 12:33 Bedside Glucose 139 129 Medications Medications Current Medications Aspirin (Halfprin) 81 mg DAILY PO Last administered on 08/05/16 09:06; Admin Dose 81 MG; Start 07/19/16 at 09:00; Status Future Hold Nitroglycerin (Nitroglycerin (Sl Tab) 0.4 Mg) 1 tab DAILY PRN SL CHEST PAIN; Start 07/18/16 at 15:30 Ondansetron HCl (Zofran Inj) 4 mg Q6H PRN IV NAUSEA AND/OR VOMITING Last administered on 08/05/16 23:48; Admin Dose 4 MG; Start 07/18/16 at 15:30 Acetaminophen (Tylenol Tab) 650 mg Q6H PRN PO PAIN LEVEL 1-3 OR FEVER Last administered on 08/02/16 15:25; Admin Dose 650 MG; Start 07/18/16 at 15:30 Acetaminophen (Tylenol Supp) 650 mg Q6H PRN CO PAIN LEVEL 1-3 OR FEVER; Start 07/18/16 at 15:30 Docusate Sodium (Colace) 100 mg Q12H PRN PO CONSTIPATION Last administered on 20:19; Admin Dose 100 MG; Start 07/18/16 at 15:30 Magnesium Hydroxide (Milk Of Mag) 30 ml DAILY PRN PO CONSTIPATION Last administered on 07/28/16 23:03; Admin Dose 30 ML; Start 07/18/16 at 15:30 Bisacodyl (Dulcolax Supp) 10 mg DAILY PRN CO CONSTIPATION; Start 07/18/16 at 15 :30 Miscellaneous Information 1 ea NOTE XX ; Start 07/18/16 at 17:30 Glucose (Glutose) 15 gm Q15M PRN PO DECREASED GLUCOSE; Start 07/18/16 at 17:30 Glucose (Glutose) 22.5 gm Q15M PRN PO DECREASED GLUCOSE; Start 07/18/16 at 17: 30 Dextrose (D50w Syringe) 25 ml Q15M PRN IV DECREASED GLUCOSE; Start 07/18/16 at 17:30 Dextrose (D50w Syringe) 50 ml Q15M PRN IV DECREASED GLUCOSE; Start 07/18/16 at 17:30 Glucagon (Glucagen) 1 mg Q15M PRN IM DECREASED GLUCOSE; Start 07/18/16 at 17:30 Glucose (Glutose) 15 gm Q15M PRN BUCCAL DECREASED GLUCOSE; Start 07/18/16 at 17 :30 Guaifenesin/ Codeine Phosphate (Robitussin Ac Liquid Cup) 10 ml Q4H PRN PO COUGH Last administered on 07/19/16 19:43; Admin Dose 10 ML; Start 07/18/16 at 23:30 Carvedilol (Coreg) 3.125 mg BID PO Last administered on 08/03/16 20:05; Admin Dose 3.125 MG; Start 07/24/16 at 09:00; Status Future Hold Isosorbide Dinitrate 10 mg 10 mg TID PO Last administered on 08/03/16 19:58; Admin Dose 10 MG; Start 07/30/16 at 21:00; Status Future Hold Propofol 100 ml @ 2.055 mls/ hr Q12H IV Last administered on 08/11/16 05:53; Admin Dose 6.136 MLS/HR; Start 08/06/16 at 03:30 Vasopressin/ Dextrose (Vasostrict/D5W) 60 ml @ 1.2 mls/hr Q12H IV Last administered on 08/06/16 18:37; Admin Dose 0.9 MLS/HR; Start 08/06/16 at 03:30 Furosemide 40 mg 40 mg DAILY@06 IV Last administered on 08/12/16 05:24; Admin Dose 40 MG; Start 08/07/16 at 10:00 Piperacillin Sod/ Tazobactam Sod 50 ml @ 100 mls/hr Q8 IVPB Last administered on 08/12/16 05:24; Admin Dose 100 MLS/HR; Start 08/07/16 at 14:00 Sodium Chloride (1/2 NS) 1,000 ml @ 20 mls/hr Q24H IV Last administered on 08:34; Admin Dose 20 MLS/HR; Start 08/08/16 at 07:00 Pantoprazole (Protonix Iv) 40 mg DAILY@06 IV Last administered on 08/12/16 05: 24; Admin Dose 40 MG; Start 08/10/16 at 06:00 Insulin Aspart NOVOLOG *MILD* ALGORI... Q4 SC Last administered on 08/11/16 09 :34; Admin Dose 1 UNIT; Start 08/09/16 at 13:00 Norepinephrine/ Dextrose (Levophed/D5W) 500 ml @ 1.87 mls/hr TITRATE IV ; Start 08/09/16 at 13:30 Amiodarone HCl (Cordarone) 200 mg DAILY NGT Last administered on 08/12/16 08: 35; Admin Dose 200 MG; Start 08/09/16 at 21:00 Sucralfate (Carafate) 1 gm QID NGT Last administered on 08/12/16 12:32; Admin Dose 1 GM; Start 08/09/16 at 21:00 Apixaban (Eliquis) 2.5 mg BID PO Last administered on 08/12/16 08:35; Admin Dose 2.5 MG; Start 08/10/16 at 21:00 IV Flush 10 ml 10 ml PRN PRN IV IV PROTOCOL; Start 08/11/16 at 17:00 Potassium Phosphate/Sodium Chloride (K Phos (Meq)/NS) 259.0909 ml @ 64.773 m... ONCE IVPB Last administered on 08/12/16 12:32; Admin Dose 64.773 MLS/HR; Start 08/12/16 at 11:45; Stop 08/12/16 at 15:44 Hydralazine HCl (Apresoline) 10 mg Q8 PO ; Start 08/13/16 at 09:00 MURIEL EWING Aug 12, 2016 13:44
--- NOTE | 2016-08-12 14:32 | PN ---
DATE: 08/12/2016 SUBJECTIVE: Patient Sage was extubated yesterday. Remained on nasal cannula overnight. Th is morning appears more comfortable without evidence of respiratory distress. VITAL SIGNS: Temperature 97, pulse 60, blood pressure 98/44, O2 saturation 99% on 2 L nasal cannula . NECK: Supple. No JVD or lymphadenopathy. HEENT: Dry mucous membranes. Pupils equal and react to light. CARDIAC: S1, S2, no added sounds or murmurs. CHEST: Diminished air entry bilaterally with a few rales. ABDOMEN: Soft, nontender. No guarding or rebound. EXTREMITIES: No cyanosis, clubbing or edema. NEUROLOGIC: Generalized weakness. LABORATORY DATA: White count ____, hemoglobin 10.4, platelets 125, BUN 50, creatinine 1.32. INR wa s ____. Arterial blood gas pH 7.42, pCO2 of 42, PaO2 of ____, bicarbonate was ____. IMAGING: Chest x-ray was reviewed also showed worsening left basilar effusion versus infiltrate. IMPRESSION AND PLAN: 1. Status post hypoxemic respiratory failure, now simply extubated. 2. End-stage renal failure on hemodialysis. 3. Ischemic cardiomyopathy with decreased ejection fraction, AICD placement. 4. History of atrial fibrillation. 5. History of end-stage renal failure on hemodialysis. RECOMMENDATIONS 1. Speech therapy evaluation. 2. Pulmonary toilet. 3. Incentive spirometry. 4. Hemodialysis with volume removal. 5. Transfer to telemetry bed. ID ____ for closer monitoring. Dictated By: HERMAN GARCIA/SHAHANA Conf#: [id number] DID#: [id number]
--- NOTE | 2016-08-12 20:00 | CONS ---
Date/Time of Note Date/Time of Note DATE: 08/12/16 TIME: 19:57 Assessment/Plan Assessment/Plan Chief Complaint/Hosp Course 1. Patient has acute on chronic renal failure with acute kidney injury due to systolic heart failure. on dialysis 2. The patient has LOW EF now on vent/cardio renal syndrome s/p extubation 3. Anemia. 4. ASHD 5. Acute urinary tract infection.BETTER 6 LOW EF 7 hyperkalemia HX 8 afib 9 hematuria HX 10 hypophosphatemia 11 chest xr better no leg edema plan continue hd for now weaning per pulmonary cardiac issue per cardio PLAN CONTINUE per pulmonary HD PRN labs Problems: Consultation Date/Type/Reason Admit Date/Time Jul 18, 2016 at 14:06 Type of Consultation: renal Referring Provider: MURIEL EWING 24 HR Interval Summary Constitutional: other (off vent) Exam/Review of Systems Vital Signs Vitals Vital Signs Date Time Temp Pulse Resp B/P Pulse Ox O2 Delivery O2 Flow Rate FiO2 08/12/16 19:45 98.0 61 18 119/56 100 08/12/16 17:00 Nasal Cannula 3.0 08/11/16 16:00 30 Intake and Output 08/11/16 08/11/16 08/12/16 15:00 23:00 07:00 Intake Total 743.15 ml 586.5 ml 450 ml Output Total 865 ml 465 ml 945 ml Balance -121.85 ml 121.5 ml -495 ml Exam Neck: supple Respiratory: diminished breath sounds Cardiovascular: regular rate and rhythm Gastrointestinal: bowel sounds (+), soft Extremities: edema (+) Results Result Diagram: 08/12/16 0430 08/12/16 0430 Results 24 hrs Laboratory Tests Test 08/11/16 20:47 08/11/16 22:10 08/12/16 01:37 08/12/16 04:30 Bedside Glucose 130 140 Potassium Level 3.4 L 3.8 Anion Gap 13 Basophils # 0.0 Basophils % 0.0 Blood Urea Nitrogen 50 H Calcium Level 8.0 L Carbon Dioxide Level 29 Chloride Level 107 Creatinine 1.32 H Eosinophils # 0.1 Eosinophils % 2.2 Glucose Level 139 Hematocrit 35.5 L Hemoglobin 10.4 L Lymphocytes # 0.5 L Lymphocytes % 11.6 L Magnesium Level 1.7 Mean Corpuscular Hemoglobin 24.3 L Mean Corpuscular Hemoglobin Concent 29.3 L Mean Corpuscular Volume 82.9 Mean Platelet Volume 10.8 H Monocytes # 0.2 L Monocytes % 5.0 Neutrophils # 3.7 Neutrophils % 81.0 H Nucleated Red Blood Cells # 0.0 Nucleated Red Blood Cells % 0.0 Phosphorus Level 1.6 L Platelet Count 125 L Red Blood Count 4.28 L Red Cell Distribution Width 23.0 H Sodium Level 145 H White Blood Count 4.6 L Test 08/12/16 05:26 08/12/16 07:00 08/12/16 08:31 08/12/16 12:33 Bedside Glucose 136 139 129 Arterial Blood HCO3 27.1 H Arterial Blood Base Excess 2.4 Arterial Blood Oxygen Saturation 98.2 Sebastien Test ACCEPTAB Arterial Blood Gas Puncture Site Right Radial Arterial Blood Carboxyhemoglobin 0.2 Arterial Blood Date Drawn 08/12/2016 7:10:28 AM Arterial Blood Methemoglobin 0.3 Arterial Blood pCO2 (Temp correct) 42.7 Arterial Blood pH (Temp corrected) 7.421 Arterial Blood pO2 (Temp corrected) 114.2 H Blood Gas A-a O2 Differential 27.8 H Blood Gas Modality NASAL CANNULA Blood Gas Notified Time 08/12/2016 7:36:13 AM Blood Gas Notified Whom JLD Blood Gas Specimen Source Blood arterial Blood Gas Temperature 37.0 FiO2 27.0 Oxyhemoglobin Percent 97.7 Total Hemoglobin 11.9 L Test 08/12/16 18:15 Bedside Glucose 95 Medications Medications Current Medications Aspirin (Halfprin) 81 mg DAILY PO Last administered on 08/05/16 09:06; Admin Dose 81 MG; Start 07/19/16 at 09:00; Status Future Hold Nitroglycerin (Nitroglycerin (Sl Tab) 0.4 Mg) 1 tab DAILY PRN SL CHEST PAIN; Start 07/18/16 at 15:30 Ondansetron HCl (Zofran Inj) 4 mg Q6H PRN IV NAUSEA AND/OR VOMITING Last administered on 08/05/16 23:48; Admin Dose 4 MG; Start 07/18/16 at 15:30 Acetaminophen (Tylenol Tab) 650 mg Q6H PRN PO PAIN LEVEL 1-3 OR FEVER Last administered on 08/02/16 15:25; Admin Dose 650 MG; Start 07/18/16 at 15:30 Acetaminophen (Tylenol Supp) 650 mg Q6H PRN IN PAIN LEVEL 1-3 OR FEVER; Start 07/18/16 at 15:30 Docusate Sodium (Colace) 100 mg Q12H PRN PO CONSTIPATION Last administered on 20:19; Admin Dose 100 MG; Start 07/18/16 at 15:30 Magnesium Hydroxide (Milk Of Mag) 30 ml DAILY PRN PO CONSTIPATION Last administered on 07/28/16 23:03; Admin Dose 30 ML; Start 07/18/16 at 15:30 Bisacodyl (Dulcolax Supp) 10 mg DAILY PRN IN CONSTIPATION; Start 07/18/16 at 15 :30 Miscellaneous Information 1 ea NOTE XX ; Start 07/18/16 at 17:30 Glucose (Glutose) 15 gm Q15M PRN PO DECREASED GLUCOSE; Start 07/18/16 at 17:30 Glucose (Glutose) 22.5 gm Q15M PRN PO DECREASED GLUCOSE; Start 07/18/16 at 17: 30 Dextrose (D50w Syringe) 25 ml Q15M PRN IV DECREASED GLUCOSE; Start 07/18/16 at 17:30 Dextrose (D50w Syringe) 50 ml Q15M PRN IV DECREASED GLUCOSE; Start 07/18/16 at 17:30 Glucagon (Glucagen) 1 mg Q15M PRN IM DECREASED GLUCOSE; Start 07/18/16 at 17:30 Glucose (Glutose) 15 gm Q15M PRN BUCCAL DECREASED GLUCOSE; Start 07/18/16 at 17 :30 Guaifenesin/ Codeine Phosphate (Robitussin Ac Liquid Cup) 10 ml Q4H PRN PO COUGH Last administered on 07/19/16 19:43; Admin Dose 10 ML; Start 07/18/16 at 23:30 Carvedilol (Coreg) 3.125 mg BID PO Last administered on 08/03/16 20:05; Admin Dose 3.125 MG; Start 07/24/16 at 09:00; Status Future Hold Isosorbide Dinitrate (Isordil) 10 mg TID PO Last administered on 08/03/16 19:58 ; Admin Dose 10 MG; Start 07/30/16 at 21:00; Status Future Hold Furosemide 40 mg 40 mg DAILY@06 IV Last administered on 08/12/16 05:24; Admin Dose 40 MG; Start 08/07/16 at 10:00 Piperacillin Sod/ Tazobactam Sod 50 ml @ 100 mls/hr Q8 IVPB Last administered on 08/12/16 15:06; Admin Dose 100 MLS/HR; Start 08/07/16 at 14:00 Sodium Chloride (1/2 NS) 1,000 ml @ 20 mls/hr Q24H IV Last administered on 08:34; Admin Dose 20 MLS/HR; Start 08/08/16 at 07:00 Pantoprazole (Protonix Iv) 40 mg DAILY@06 IV Last administered on 08/12/16 05: 24; Admin Dose 40 MG; Start 08/10/16 at 06:00 Insulin Aspart (Novolog Insulin Pen) NOVOLOG *MILD* ALGORI... Q4 SC Last administered on 08/11/16 09:34; Admin Dose 1 UNIT; Start 08/09/16 at 13:00 Amiodarone HCl (Cordarone) 200 mg DAILY NGT Last administered on 08/12/16 08: 35; Admin Dose 200 MG; Start 08/09/16 at 21:00 Sucralfate (Carafate) 1 gm QID NGT Last administered on 08/12/16 18:36; Admin Dose 1 GM; Start 08/09/16 at 21:00 Apixaban (Eliquis) 2.5 mg BID PO Last administered on 08/12/16 08:35; Admin Dose 2.5 MG; Start 08/10/16 at 21:00 IV Flush (NS 10 ml) 10 ml PRN PRN IV IV PROTOCOL; Start 08/11/16 at 17:00 Hydralazine HCl (Apresoline) 10 mg Q8 PO ; Start 08/13/16 at 09:00 YANIRA HART MD Aug 12, 2016 19:59
[2016-08-12] MEDS: ACETAMINOPHEN 325 MG TAB PO PRN (20:48)
[2016-08-13] VITALS (12 sets, daily range): BP systolic 105–130; BP diastolic 52–63; PULSE 59–63; RESP 18
[2016-08-13] MEDS: INSULIN ASPART [NOVOLOG] 3 ML PEN SC SCH ×6 (00:42→20:50)
[2016-08-13] MEDS: PIPER-TAZO 2.25 GM (PMX) 50 ML IVPB SCH (06:00)
[2016-08-13] MEDS: PANTOPRAZOLE 40 MG INJ IV SCH (06:22)
[2016-08-13] MEDS: FUROSEMIDE 40 MG INJ IV SCH ×2 (06:23→17:43)
[2016-08-13 06:38] LABS: ADD SCAN DIFF NO
[2016-08-13 06:48] LABS: ABNORMAL IP MESSAGE 1; EOSINOPHILS # 0.1 10^3/ul (0.0-0.5); EOSINOPHILS % 3.1 % (0.0-7.0); HEMATOCRIT 34.9 % (42.0-52.0); HEMOGLOBIN 10.3 g/dl (14.0-18.0); LYMPHOCYTES # 0.4 10^3/ul (0.8-2.9); MEAN CORPUSCULAR HEMOGLOBIN 24.8 pg (29.0-33.0); MEAN CORPUSCULAR HGB CONC 29.5 g/dl (32.0-37.0); MEAN CORPUSCULAR VOLUME 83.9 fl (82.0-101.0); MEAN PLATELET VOLUME 11.1 fl (7.4-10.4); MONOCYTE # 0.2 10^3/ul (0.3-0.9); MONOCYTES % 5.5 % (0.0-11.0); NEUTROPHIL # 3.4 10^3/ul (1.6-7.5); NEUTROPHILS % 80.9 % (39.0-77.0); PLATELET COUNT 159 10^3/UL (140-415); RED BLOOD COUNT 4.16 10^6/ul (4.70-6.10); RED CELL DISTRIBUTION WIDTH 22.5 % (11.5-14.5); WHITE BLOOD COUNT 4.2 10^3/ul (4.8-10.8)
[2016-08-13 07:09] LABS: POTASSIUM 3.4 mmol/L (3.5-5.1)
[2016-08-13 07:12] LABS: CREATININE 1.05 mg/dl (0.61-1.24)
[2016-08-13 07:13] LABS: CALCIUM 7.8 mg/dl (8.4-10.2); MAGNESIUM 1.7 mg/dl (1.7-2.5); PHOSPHORUS 2.6 mg/dl (2.5-4.9)
[2016-08-13] MEDS: SOD CHLORIDE 0.45% 1,000 ML IV SCH (07:40)
[2016-08-13] MEDS: SUCRALFATE 1 GM TAB NGT SCH ×4 (08:40→20:44)
[2016-08-13] MEDS: AMIODARONE 200 MG TAB NGT SCH ×2 (08:40→20:48)
[2016-08-13] MEDS: APIXABAN 5 MG TABLET PO SCH ×2 (08:41→20:44)
--- NOTE | 2016-08-13 09:44 | RADRPT ---
PROCEDURE: XR Chest. CLINICAL INDICATION: Shortness of breath. TECHNIQUE: Single frontal view. COMPARISON: 08/12/2016. FINDINGS: The nasogastric tube, right arm PICC line, and left-sided single lead permanent pacemaker/internal c ardiac defibrillator are all once again noted and appears satisfactory. There is bilateral air spac e and interstitial disease consistent with pulmonary edema. Left basilar atelectasis is improved. The heart is enlarged. Calcification is present in the aorta consistent with atherosclerosis. Ther e are sternal wires. There is no pleural effusion. There is no pneumothorax. IMPRESSION: 1. Improved left basilar atelectasis. 2. No other change from 08/12/2016. RPTAT: QQ .Eugenio Ruano MD, MD Date Time Electronically viewed and signed by .Eugenio Ruano MD, MD on 08/13/2016 09:44 .R/
[2016-08-13] MEDS ORDERED: POTASSIUM CHLORIDE 250 ML IVPB ONE (11:00)
--- NOTE | 2016-08-13 12:15 | CONS ---
Date/Time of Note Date/Time of Note DATE: 08/13/16 TIME: 12:12 Assessment/Plan Assessment/Plan Additional Assessment/Plan Chest x-ray was reviewed from today which is showing CHF pattern. Assessment recommendations; 1. Patient admitted for CHF exacerbation leading to respiratory failure now extubated more than a day ago and transferred to telemetry unit with fairly stable clinical status. 2. Renal insufficiency. With stable serum creatinine. 3. Coronary artery disease. 4. Patient possibly had some element of pneumonia with interval resolution. Increase Lasix to 40 mg IV every 12 hours. Discontinue Zosyn. Continue current supportive care. Prognosis remains guarded. Consultation Date/Type/Reason Admit Date/Time Jul 18, 2016 at 14:06 Initial Consult Date 08/06/16 Type of Consultation: Pulmonary Referring Provider: MURIEL EWING 24 HR Interval Summary Free Text/Dictation Patient condition is stable. He has been transferred out of ICU to telemetry unit. Patient is awake alert. Still has dysphagia and is being fed through nasogastric tube. Denies any shortness of breath, chest pain. General exam; elderly male, awake currently in no distress. Exam/Review of Systems Vital Signs Vitals Vital Signs Date Time Temp Pulse Resp B/P Pulse Ox O2 Delivery O2 Flow Rate FiO2 08/13/16 11:45 98.0 61 18 123/57 98 08/12/16 20:00 Nasal Cannula 3.0 08/11/16 16:00 30 Intake and Output 08/12/16 08/12/16 08/13/16 15:00 23:00 07:00 Intake Total 1080 ml 120 ml 780 ml Output Total 2960 ml 1000 ml 800 ml Balance -1880 ml -880 ml -20 ml Exam HEENT examination; supple neck, positive JVD. No lymphadenopathy. Midline trachea. No thyromegaly. Patient is edentulous. Pupils are small bilaterally. No neck masses. Chest examination; diminished but clear vessel bilaterally. There is a well- healed sternal scar. There is a pacemaker in the left chest wall. Abdomen examination; soft, nondistended. No organomegaly. Bowel sounds audible. Extremity exam is; no peripheral edema. ASSORTER exam is; no obvious focal motor deficit. Results Result Diagram: 08/13/16 0616 08/13/16 0614 Results 24 hrs Laboratory Tests Test 08/12/16 12:33 08/12/16 18:15 08/12/16 20:28 08/13/16 00:41 Bedside Glucose 129 95 111 137 Test 08/13/16 06:09 08/13/16 06:14 08/13/16 06:16 08/13/16 08:38 Bedside Glucose 122 130 Anion Gap 13 Blood Urea Nitrogen 40 H Calcium Level 7.8 L Carbon Dioxide Level 29 Chloride Level 104 Creatinine 1.05 Glucose Level 124 Magnesium Level 1.7 Phosphorus Level 2.6 Potassium Level 3.4 L Sodium Level 143 Basophils # 0.0 Basophils % 0.0 Eosinophils # 0.1 Eosinophils % 3.1 Hematocrit 34.9 L Hemoglobin 10.3 L Lymphocytes # 0.4 L Lymphocytes % 10.0 L Mean Corpuscular Hemoglobin 24.8 L Mean Corpuscular Hemoglobin Concent 29.5 L Mean Corpuscular Volume 83.9 Mean Platelet Volume 11.1 H Monocytes # 0.2 L Monocytes % 5.5 Neutrophils # 3.4 Neutrophils % 80.9 H Nucleated Red Blood Cells # 0.0 Nucleated Red Blood Cells % 0.0 Platelet Count 159 # Red Blood Count 4.16 L Red Cell Distribution Width 22.5 H White Blood Count 4.2 L Medications Medications Current Medications Aspirin (Halfprin) 81 mg DAILY PO Last administered on 08/05/16 09:06; Admin Dose 81 MG; Start 07/19/16 at 09:00; Status Future Hold Nitroglycerin (Nitroglycerin (Sl Tab) 0.4 Mg) 1 tab DAILY PRN SL CHEST PAIN; Start 07/18/16 at 15:30 Ondansetron HCl (Zofran Inj) 4 mg Q6H PRN IV NAUSEA AND/OR VOMITING Last administered on 08/05/16 23:48; Admin Dose 4 MG; Start 07/18/16 at 15:30 Acetaminophen (Tylenol Tab) 650 mg Q6H PRN PO PAIN LEVEL 1-3 OR FEVER Last administered on 08/12/16 20:48; Admin Dose 650 MG; Start 07/18/16 at 15:30 Acetaminophen (Tylenol Supp) 650 mg Q6H PRN NM PAIN LEVEL 1-3 OR FEVER; Start 07/18/16 at 15:30 Docusate Sodium (Colace) 100 mg Q12H PRN PO CONSTIPATION Last administered on 20:19; Admin Dose 100 MG; Start 07/18/16 at 15:30 Magnesium Hydroxide (Milk Of Mag) 30 ml DAILY PRN PO CONSTIPATION Last administered on 07/28/16 23:03; Admin Dose 30 ML; Start 07/18/16 at 15:30 Bisacodyl (Dulcolax Supp) 10 mg DAILY PRN NM CONSTIPATION; Start 07/18/16 at 15 :30 Miscellaneous Information 1 ea NOTE XX ; Start 07/18/16 at 17:30 Glucose (Glutose) 15 gm Q15M PRN PO DECREASED GLUCOSE; Start 07/18/16 at 17:30 Glucose (Glutose) 22.5 gm Q15M PRN PO DECREASED GLUCOSE; Start 07/18/16 at 17: 30 Dextrose (D50w Syringe) 25 ml Q15M PRN IV DECREASED GLUCOSE; Start 07/18/16 at 17:30 Dextrose (D50w Syringe) 50 ml Q15M PRN IV DECREASED GLUCOSE; Start 07/18/16 at 17:30 Glucagon (Glucagen) 1 mg Q15M PRN IM DECREASED GLUCOSE; Start 07/18/16 at 17:30 Glucose (Glutose) 15 gm Q15M PRN BUCCAL DECREASED GLUCOSE; Start 07/18/16 at 17 :30 Guaifenesin/ Codeine Phosphate (Robitussin Ac Liquid Cup) 10 ml Q4H PRN PO COUGH Last administered on 07/19/16 19:43; Admin Dose 10 ML; Start 07/18/16 at 23:30 Carvedilol (Coreg) 3.125 mg BID PO Last administered on 08/03/16 20:05; Admin Dose 3.125 MG; Start 07/24/16 at 09:00; Status Future Hold Isosorbide Dinitrate (Isordil) 10 mg TID PO Last administered on 08/03/16 19:58 ; Admin Dose 10 MG; Start 07/30/16 at 21:00; Status Future Hold Furosemide 40 mg 40 mg DAILY@06 IV Last administered on 08/13/16 06:23; Admin Dose 40 MG; Start 08/07/16 at 10:00 Piperacillin Sod/ Tazobactam Sod 50 ml @ 100 mls/hr Q8 IVPB Last administered on 08/13/16 06:00; Admin Dose 100 MLS/HR; Start 08/07/16 at 14:00 Sodium Chloride (1/2 NS) 1,000 ml @ 20 mls/hr Q24H IV Last administered on 08:34; Admin Dose 20 MLS/HR; Start 08/08/16 at 07:00 Pantoprazole (Protonix Iv) 40 mg DAILY@06 IV Last administered on 08/13/16 06: 22; Admin Dose 40 MG; Start 08/10/16 at 06:00 Insulin Aspart (Novolog Insulin Pen) NOVOLOG *MILD* ALGORI... Q4 SC Last administered on 08/11/16 09:34; Admin Dose 1 UNIT; Start 08/09/16 at 13:00 Amiodarone HCl (Cordarone) 200 mg DAILY NGT Last administered on 08/13/16 08: 40; Admin Dose 200 MG; Start 08/09/16 at 21:00 Sucralfate (Carafate) 1 gm QID NGT Last administered on 08/13/16 08:40; Admin Dose 1 GM; Start 08/09/16 at 21:00 Apixaban (Eliquis) 2.5 mg BID PO Last administered on 08/13/16 08:41; Admin Dose 2.5 MG; Start 08/10/16 at 21:00 IV Flush (NS 10 ml) 10 ml PRN PRN IV IV PROTOCOL; Start 08/11/16 at 17:00 Hydralazine HCl 10 mg 10 mg Q8 PO Last administered on 08/13/16 08:40; Admin Dose 10 MG; Start 08/13/16 at 09:00 Potassium Chloride (KCl 40 MEQ/250 ML NS) 250 ml @ 62.5 mls/hr ONCE ONCE IVPB ; Start 08/13/16 at 11:00; Stop 08/13/16 at 14:59 Miscellaneous Information (*Rx Drug Level Order Reminder*) VANCO RANDOM LEVEL... ONCE ONCE XX ; Start 08/14/16 at 05:00; Stop 08/14/16 at 05:01 ADAMARIS RAMIREZ 16, 2017 12:15
--- NOTE | 2016-08-13 13:11 | CONS ---
Date/Time of Note Date/Time of Note DATE: 08/13/16 TIME: 13:08 Assessment/Plan Assessment/Plan Chief Complaint/Hosp Course IMPRESSION: 1. Congestive heart failure exacerbation, systolic, acute on chronic. EF 25% by most recent echo-worsening. Minimally + troponin after cardiac arrest 2. Resp failure s/p intubation 3. Hypotension/shock-on levo and vasopressin 3. History of coronary artery bypass graft surgery. 4. Abnormal electrocardiogram . MIldly postive trop after cardiac arrest 5. History of paroxysmal atrial fibrillation-on apixaban 6. Acute on chronic renal failure-Now on HD 8. Anemia, mild. 9. Coagulopathy secondary to apixaban- improving 10.Hematuria Rec: -tele -Continue amiodarone and will incrase to BID in attempt to maintain/return to SR for now -consider ZBIGNIEW with DCCV in attempt to restore SR -Continue to hold coreg/isordil -Resume hydralazine low dose afterload reduction -Continue HD for volume removal -Continue daily lasix and follow public works technician/vol status closely -Continue apixaban now that coagulopathy improved Problems: Consultation Date/Type/Reason Admit Date/Time Jul 18, 2016 at 14:06 Initial Consult Date 07/19/2016 Type of Consultation: Cardiology Reason for Consultation CHF Referring Provider: MURIEL EWING Exam/Review of Systems Vital Signs Vitals Vital Signs Date Time Temp Pulse Resp B/P Pulse Ox O2 Delivery O2 Flow Rate FiO2 08/13/16 12:15 63 08/13/16 11:45 98.0 18 123/57 98 08/12/16 20:00 Nasal Cannula 3.0 08/11/16 16:00 30 Intake and Output 08/12/16 08/12/16 08/13/16 15:00 23:00 07:00 Intake Total 1080 ml 120 ml 780 ml Output Total 2960 ml 1000 ml 800 ml Balance -1880 ml -880 ml -20 ml Exam Review of Systems: CONSTITUTIONAL: No fevers, chills. PULMONARY: No sob CARDIOVASCULAR: No chest pain/palpitations GASTROINTESTINAL: No nausea/vomiting. GENITOURINARY: No hematuria/dysuria. MUSCULOSKELETAL: No myagias/arthalgias. PSYCHIATRIC: The patient denies depression. NEUROLOGIC: lethargic Constitutional: alert Psych: no complaints ENMT: mucosa pink and moist Neck: jvd (9 cm water), supple Respiratory: diminished breath sounds Cardiovascular: irregular rhythm Gastrointestinal: non-tender, soft Musculoskeletal: muscle tone (normal) Extremities: edema (none) Neurological: lethargic Results Result Diagram: 08/13/16 0616 08/13/16 0614 Results 24 hrs Laboratory Tests Test 08/12/16 18:15 08/12/16 20:28 08/13/16 00:41 08/13/16 06:09 Bedside Glucose 95 111 137 122 Test 08/13/16 06:14 08/13/16 06:16 08/13/16 08:38 Anion Gap 13 Blood Urea Nitrogen 40 H Calcium Level 7.8 L Carbon Dioxide Level 29 Chloride Level 104 Creatinine 1.05 Glucose Level 124 Magnesium Level 1.7 Phosphorus Level 2.6 Potassium Level 3.4 L Sodium Level 143 Basophils # 0.0 Basophils % 0.0 Eosinophils # 0.1 Eosinophils % 3.1 Hematocrit 34.9 L Hemoglobin 10.3 L Lymphocytes # 0.4 L Lymphocytes % 10.0 L Mean Corpuscular Hemoglobin 24.8 L Mean Corpuscular Hemoglobin Concent 29.5 L Mean Corpuscular Volume 83.9 Mean Platelet Volume 11.1 H Monocytes # 0.2 L Monocytes % 5.5 Neutrophils # 3.4 Neutrophils % 80.9 H Nucleated Red Blood Cells # 0.0 Nucleated Red Blood Cells % 0.0 Platelet Count 159 # Red Blood Count 4.16 L Red Cell Distribution Width 22.5 H White Blood Count 4.2 L Bedside Glucose 130 Medications Medications Current Medications Aspirin (Halfprin) 81 mg DAILY PO Last administered on 08/05/16 09:06; Admin Dose 81 MG; Start 07/19/16 at 09:00; Status Future Hold Nitroglycerin (Nitroglycerin (Sl Tab) 0.4 Mg) 1 tab DAILY PRN SL CHEST PAIN; Start 07/18/16 at 15:30 Ondansetron HCl (Zofran Inj) 4 mg Q6H PRN IV NAUSEA AND/OR VOMITING Last administered on 08/05/16 23:48; Admin Dose 4 MG; Start 07/18/16 at 15:30 Acetaminophen (Tylenol Tab) 650 mg Q6H PRN PO PAIN LEVEL 1-3 OR FEVER Last administered on 08/12/16 20:48; Admin Dose 650 MG; Start 07/18/16 at 15:30 Acetaminophen (Tylenol Supp) 650 mg Q6H PRN MS PAIN LEVEL 1-3 OR FEVER; Start 07/18/16 at 15:30 Docusate Sodium (Colace) 100 mg Q12H PRN PO CONSTIPATION Last administered on 20:19; Admin Dose 100 MG; Start 07/18/16 at 15:30 Magnesium Hydroxide (Milk Of Mag) 30 ml DAILY PRN PO CONSTIPATION Last administered on 07/28/16 23:03; Admin Dose 30 ML; Start 07/18/16 at 15:30 Bisacodyl (Dulcolax Supp) 10 mg DAILY PRN MS CONSTIPATION; Start 07/18/16 at 15 :30 Miscellaneous Information 1 ea NOTE XX ; Start 07/18/16 at 17:30 Glucose (Glutose) 15 gm Q15M PRN PO DECREASED GLUCOSE; Start 07/18/16 at 17:30 Glucose (Glutose) 22.5 gm Q15M PRN PO DECREASED GLUCOSE; Start 07/18/16 at 17: 30 Dextrose (D50w Syringe) 25 ml Q15M PRN IV DECREASED GLUCOSE; Start 07/18/16 at 17:30 Dextrose (D50w Syringe) 50 ml Q15M PRN IV DECREASED GLUCOSE; Start 07/18/16 at 17:30 Glucagon (Glucagen) 1 mg Q15M PRN IM DECREASED GLUCOSE; Start 07/18/16 at 17:30 Glucose (Glutose) 15 gm Q15M PRN BUCCAL DECREASED GLUCOSE; Start 07/18/16 at 17 :30 Guaifenesin/ Codeine Phosphate (Robitussin Ac Liquid Cup) 10 ml Q4H PRN PO COUGH Last administered on 07/19/16 19:43; Admin Dose 10 ML; Start 07/18/16 at 23:30 Carvedilol (Coreg) 3.125 mg BID PO Last administered on 08/03/16 20:05; Admin Dose 3.125 MG; Start 07/24/16 at 09:00; Status Future Hold Isosorbide Dinitrate 10 mg 10 mg TID PO Last administered on 08/03/16 19:58; Admin Dose 10 MG; Start 07/30/16 at 21:00; Status Future Hold Sodium Chloride (1/2 NS) 1,000 ml @ 20 mls/hr Q24H IV Last administered on 08:34; Admin Dose 20 MLS/HR; Start 08/08/16 at 07:00 Pantoprazole (Protonix Iv) 40 mg DAILY@06 IV Last administered on 08/13/16 06: 22; Admin Dose 40 MG; Start 08/10/16 at 06:00 Insulin Aspart (Novolog Insulin Pen) NOVOLOG *MILD* ALGORI... Q4 SC Last administered on 08/11/16 09:34; Admin Dose 1 UNIT; Start 08/09/16 at 13:00 Amiodarone HCl (Cordarone) 200 mg DAILY NGT Last administered on 08/13/16 08: 40; Admin Dose 200 MG; Start 08/09/16 at 21:00 Sucralfate (Carafate) 1 gm QID NGT Last administered on 08/13/16 08:40; Admin Dose 1 GM; Start 08/09/16 at 21:00 Apixaban (Eliquis) 2.5 mg BID PO Last administered on 08/13/16 08:41; Admin Dose 2.5 MG; Start 08/10/16 at 21:00 IV Flush (NS 10 ml) 10 ml PRN PRN IV IV PROTOCOL; Start 08/11/16 at 17:00 Hydralazine HCl 10 mg 10 mg Q8 PO Last administered on 08/13/16 08:40; Admin Dose 10 MG; Start 08/13/16 at 09:00 Potassium Chloride (KCl 40 MEQ/250 ML NS) 250 ml @ 62.5 mls/hr ONCE ONCE IVPB Last administered on 08/13/16 12:34; Admin Dose 62.5 MLS/HR; Start 08/13/16 at 11:00; Stop 08/13/16 at 14:59 Miscellaneous Information (*Rx Drug Level Order Reminder*) VANCO RANDOM LEVEL... ONCE ONCE XX ; Start 08/14/16 at 05:00; Stop 08/14/16 at 05:01 POLI SAN 16, 2017 13:11
--- NOTE | 2016-08-13 16:41 | PN ---
Date/Time of Note Date/Time of Note DATE: 08/13/16 TIME: 16:30 Assessment/Plan VTE Prophylaxis VTE Prophylaxis Intervention: other Assessment/Plan Chief Complaint/Hosp Course 1. Acute Resp failure secondary to pulmonary edema and possible aspiration pneumonia-now extubated Discontinue Zosyn and vancomycin Pulmonology on case 2. Acute on chronic congestive heart failure Continue dialysis for volume overload, continue Lasix IV 3. 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 Type 2 diabetes-stable Insulin sliding scale 5. Atrial fibrillation, rate controlled 6. History of CAD status post CABG 7. Acute on likely chronic kidney disease 2/2 cardiorenal syndrome did not improve, s/p Fidel catheter placement on 08/01/16- Started on HD by avionics technician Dr.Balbir Lamar- 8. Acute encephalopathy secondary to uremic syndrome now improved with dialysis According to the family patient's mentation is back to baseline Speech therapy bedside swallow eval, if patient is able to swallow will DC NG tube and start p.o. feeding 9. Debility secondary to comorbidities Continue PT, patient cannot ambulate need to go to a rehab center, nurse case manager aware PPx- on Eliquis Problems: Subjective 24 Hr Interval Summary Constitutional: no complaints Exam/Review of Systems Vital Signs Vitals Vital Signs Date Time Temp Pulse Resp B/P Pulse Ox O2 Delivery O2 Flow Rate FiO2 08/13/16 16:08 98.0 65 18 130/63 98 08/12/16 20:00 Nasal Cannula 3.0 08/11/16 16:00 30 Intake and Output 08/12/16 08/12/16 08/13/16 15:00 23:00 07:00 Intake Total 1080 ml 120 ml 780 ml Output Total 2960 ml 1000 ml 800 ml Balance -1880 ml -880 ml -20 ml Exam Constitutional: alert Respiratory: clear to auscultation Cardiovascular: regular rate and rhythm Gastrointestinal: soft, No distended Musculoskeletal: nl extremities to inspection Results Result Diagram: 08/13/16 0616 08/13/16 0614 Results 24 hrs Laboratory Tests Test 08/12/16 18:15 08/12/16 20:28 08/13/16 00:41 08/13/16 06:09 Bedside Glucose 95 111 137 122 Test 08/13/16 06:14 08/13/16 06:16 08/13/16 08:38 08/13/16 13:48 Anion Gap 13 Blood Urea Nitrogen 40 H Calcium Level 7.8 L Carbon Dioxide Level 29 Chloride Level 104 Creatinine 1.05 Glucose Level 124 Magnesium Level 1.7 Phosphorus Level 2.6 Potassium Level 3.4 L Sodium Level 143 Basophils # 0.0 Basophils % 0.0 Eosinophils # 0.1 Eosinophils % 3.1 Hematocrit 34.9 L Hemoglobin 10.3 L Lymphocytes # 0.4 L Lymphocytes % 10.0 L Mean Corpuscular Hemoglobin 24.8 L Mean Corpuscular Hemoglobin Concent 29.5 L Mean Corpuscular Volume 83.9 Mean Platelet Volume 11.1 H Monocytes # 0.2 L Monocytes % 5.5 Neutrophils # 3.4 Neutrophils % 80.9 H Nucleated Red Blood Cells # 0.0 Nucleated Red Blood Cells % 0.0 Platelet Count 159 # Red Blood Count 4.16 L Red Cell Distribution Width 22.5 H White Blood Count 4.2 L Bedside Glucose 130 117 Medications Medications Current Medications Aspirin (Halfprin) 81 mg DAILY PO Last administered on 08/05/16 09:06; Admin Dose 81 MG; Start 07/19/16 at 09:00; Status Future Hold Nitroglycerin (Nitroglycerin (Sl Tab) 0.4 Mg) 1 tab DAILY PRN SL CHEST PAIN; Start 07/18/16 at 15:30 Ondansetron HCl (Zofran Inj) 4 mg Q6H PRN IV NAUSEA AND/OR VOMITING Last administered on 08/05/16 23:48; Admin Dose 4 MG; Start 07/18/16 at 15:30 Acetaminophen (Tylenol Tab) 650 mg Q6H PRN PO PAIN LEVEL 1-3 OR FEVER Last administered on 08/12/16 20:48; Admin Dose 650 MG; Start 07/18/16 at 15:30 Acetaminophen (Tylenol Supp) 650 mg Q6H PRN MA PAIN LEVEL 1-3 OR FEVER; Start 07/18/16 at 15:30 Docusate Sodium (Colace) 100 mg Q12H PRN PO CONSTIPATION Last administered on 20:19; Admin Dose 100 MG; Start 07/18/16 at 15:30 Magnesium Hydroxide (Milk Of Mag) 30 ml DAILY PRN PO CONSTIPATION Last administered on 07/28/16 23:03; Admin Dose 30 ML; Start 07/18/16 at 15:30 Bisacodyl (Dulcolax Supp) 10 mg DAILY PRN MA CONSTIPATION; Start 07/18/16 at 15 :30 Miscellaneous Information 1 ea NOTE XX ; Start 07/18/16 at 17:30 Glucose (Glutose) 15 gm Q15M PRN PO DECREASED GLUCOSE; Start 07/18/16 at 17:30 Glucose (Glutose) 22.5 gm Q15M PRN PO DECREASED GLUCOSE; Start 07/18/16 at 17: 30 Dextrose (D50w Syringe) 25 ml Q15M PRN IV DECREASED GLUCOSE; Start 07/18/16 at 17:30 Dextrose (D50w Syringe) 50 ml Q15M PRN IV DECREASED GLUCOSE; Start 07/18/16 at 17:30 Glucagon (Glucagen) 1 mg Q15M PRN IM DECREASED GLUCOSE; Start 07/18/16 at 17:30 Glucose (Glutose) 15 gm Q15M PRN BUCCAL DECREASED GLUCOSE; Start 07/18/16 at 17 :30 Guaifenesin/ Codeine Phosphate (Robitussin Ac Liquid Cup) 10 ml Q4H PRN PO COUGH Last administered on 07/19/16 19:43; Admin Dose 10 ML; Start 07/18/16 at 23:30 Carvedilol (Coreg) 3.125 mg BID PO Last administered on 08/03/16 20:05; Admin Dose 3.125 MG; Start 07/24/16 at 09:00; Status Future Hold Isosorbide Dinitrate 10 mg 10 mg TID PO Last administered on 08/03/16 19:58; Admin Dose 10 MG; Start 07/30/16 at 21:00; Status Future Hold Sodium Chloride (1/2 NS) 1,000 ml @ 20 mls/hr Q24H IV Last administered on 08:34; Admin Dose 20 MLS/HR; Start 08/08/16 at 07:00 Pantoprazole (Protonix Iv) 40 mg DAILY@06 IV Last administered on 08/13/16 06: 22; Admin Dose 40 MG; Start 08/10/16 at 06:00 Insulin Aspart (Novolog Insulin Pen) NOVOLOG *MILD* ALGORI... Q4 SC Last administered on 08/11/16 09:34; Admin Dose 1 UNIT; Start 08/09/16 at 13:00 Sucralfate (Carafate) 1 gm QID NGT Last administered on 08/13/16 13:49; Admin Dose 1 GM; Start 08/09/16 at 21:00 Apixaban (Eliquis) 2.5 mg BID PO Last administered on 08/13/16 08:41; Admin Dose 2.5 MG; Start 08/10/16 at 21:00 IV Flush (NS 10 ml) 10 ml PRN PRN IV IV PROTOCOL; Start 08/11/16 at 17:00 Miscellaneous Information (*Rx Drug Level Order Reminder*) VANCO RANDOM LEVEL... ONCE ONCE XX ; Start 08/14/16 at 05:00; Stop 08/14/16 at 05:01 Hydralazine HCl (Apresoline) 10 mg Q8 PO ; Start 08/13/16 at 14:00 Amiodarone HCl (Cordarone) 200 mg BID NGT ; Start 08/13/16 at 21:00 MURIEL EWING Aug 13, 2016 16:40
--- NOTE | 2016-08-13 19:04 | CONS ---
Date/Time of Note Date/Time of Note DATE: 08/13/16 TIME: 19:02 Assessment/Plan Assessment/Plan Chief Complaint/Hosp Course 1. Patient has acute on chronic renal failure with acute kidney injury due to systolic heart failure. on dialysis 2. The patient has LOW EF now on vent/cardio renal syndrome s/p extubation 3. Anemia. 4. ASHD 5. Acute urinary tract infection.BETTER 6 LOW EF 7 hyperkalemia HX 8 afib 9 hematuria HX plan continue hd for now KCL Problems: Consultation Date/Type/Reason Admit Date/Time Jul 18, 2016 at 14:06 Type of Consultation: RENAL Referring Provider: MURIEL EWING 24 HR Interval Summary Constitutional: improved Exam/Review of Systems Vital Signs Vitals Vital Signs Date Time Temp Pulse Resp B/P Pulse Ox O2 Delivery O2 Flow Rate FiO2 08/13/16 16:27 59 08/13/16 16:08 98.0 18 130/63 98 08/12/16 20:00 Nasal Cannula 3.0 08/11/16 16:00 30 Intake and Output 08/12/16 08/12/16 08/13/16 15:00 23:00 07:00 Intake Total 1080 ml 120 ml 780 ml Output Total 2960 ml 1000 ml 800 ml Balance -1880 ml -880 ml -20 ml Exam Respiratory: diminished breath sounds Cardiovascular: regular rate and rhythm Gastrointestinal: soft Results Result Diagram: 08/13/16 0616 08/13/16 0614 Results 24 hrs Laboratory Tests Test 08/12/16 20:28 08/13/16 00:41 08/13/16 06:09 08/13/16 06:14 Bedside Glucose 111 137 122 Anion Gap 13 Blood Urea Nitrogen 40 H Calcium Level 7.8 L Carbon Dioxide Level 29 Chloride Level 104 Creatinine 1.05 Glucose Level 124 Magnesium Level 1.7 Phosphorus Level 2.6 Potassium Level 3.4 L Sodium Level 143 Test 08/13/16 06:16 08/13/16 08:38 08/13/16 13:48 08/13/16 17:39 Basophils # 0.0 Basophils % 0.0 Eosinophils # 0.1 Eosinophils % 3.1 Hematocrit 34.9 L Hemoglobin 10.3 L Lymphocytes # 0.4 L Lymphocytes % 10.0 L Mean Corpuscular Hemoglobin 24.8 L Mean Corpuscular Hemoglobin Concent 29.5 L Mean Corpuscular Volume 83.9 Mean Platelet Volume 11.1 H Monocytes # 0.2 L Monocytes % 5.5 Neutrophils # 3.4 Neutrophils % 80.9 H Nucleated Red Blood Cells # 0.0 Nucleated Red Blood Cells % 0.0 Platelet Count 159 # Red Blood Count 4.16 L Red Cell Distribution Width 22.5 H White Blood Count 4.2 L Bedside Glucose 130 117 111 Medications Medications Current Medications Aspirin (Halfprin) 81 mg DAILY PO Last administered on 08/05/16 09:06; Admin Dose 81 MG; Start 07/19/16 at 09:00; Status Future Hold Nitroglycerin (Nitroglycerin (Sl Tab) 0.4 Mg) 1 tab DAILY PRN SL CHEST PAIN; Start 07/18/16 at 15:30 Ondansetron HCl (Zofran Inj) 4 mg Q6H PRN IV NAUSEA AND/OR VOMITING Last administered on 08/05/16 23:48; Admin Dose 4 MG; Start 07/18/16 at 15:30 Acetaminophen (Tylenol Tab) 650 mg Q6H PRN PO PAIN LEVEL 1-3 OR FEVER Last administered on 08/12/16 20:48; Admin Dose 650 MG; Start 07/18/16 at 15:30 Acetaminophen (Tylenol Supp) 650 mg Q6H PRN ID PAIN LEVEL 1-3 OR FEVER; Start 07/18/16 at 15:30 Docusate Sodium (Colace) 100 mg Q12H PRN PO CONSTIPATION Last administered on 20:19; Admin Dose 100 MG; Start 07/18/16 at 15:30 Magnesium Hydroxide (Milk Of Mag) 30 ml DAILY PRN PO CONSTIPATION Last administered on 07/28/16 23:03; Admin Dose 30 ML; Start 07/18/16 at 15:30 Bisacodyl (Dulcolax Supp) 10 mg DAILY PRN ID CONSTIPATION; Start 07/18/16 at 15 :30 Miscellaneous Information 1 ea NOTE XX ; Start 07/18/16 at 17:30 Glucose (Glutose) 15 gm Q15M PRN PO DECREASED GLUCOSE; Start 07/18/16 at 17:30 Glucose (Glutose) 22.5 gm Q15M PRN PO DECREASED GLUCOSE; Start 07/18/16 at 17: 30 Dextrose (D50w Syringe) 25 ml Q15M PRN IV DECREASED GLUCOSE; Start 07/18/16 at 17:30 Dextrose (D50w Syringe) 50 ml Q15M PRN IV DECREASED GLUCOSE; Start 07/18/16 at 17:30 Glucagon (Glucagen) 1 mg Q15M PRN IM DECREASED GLUCOSE; Start 07/18/16 at 17:30 Glucose (Glutose) 15 gm Q15M PRN BUCCAL DECREASED GLUCOSE; Start 07/18/16 at 17 :30 Guaifenesin/ Codeine Phosphate (Robitussin Ac Liquid Cup) 10 ml Q4H PRN PO COUGH Last administered on 07/19/16 19:43; Admin Dose 10 ML; Start 07/18/16 at 23:30 Carvedilol (Coreg) 3.125 mg BID PO Last administered on 08/03/16 20:05; Admin Dose 3.125 MG; Start 07/24/16 at 09:00; Status Future Hold Isosorbide Dinitrate 10 mg 10 mg TID PO Last administered on 08/03/16 19:58; Admin Dose 10 MG; Start 07/30/16 at 21:00; Status Future Hold Sodium Chloride (1/2 NS) 1,000 ml @ 20 mls/hr Q24H IV Last administered on 08:34; Admin Dose 20 MLS/HR; Start 08/08/16 at 07:00 Pantoprazole (Protonix Iv) 40 mg DAILY@06 IV Last administered on 08/13/16 06: 22; Admin Dose 40 MG; Start 08/10/16 at 06:00 Insulin Aspart (Novolog Insulin Pen) NOVOLOG *MILD* ALGORI... Q4 SC Last administered on 08/11/16 09:34; Admin Dose 1 UNIT; Start 08/09/16 at 13:00 Sucralfate (Carafate) 1 gm QID NGT Last administered on 08/13/16 17:44; Admin Dose 1 GM; Start 08/09/16 at 21:00 Apixaban (Eliquis) 2.5 mg BID PO Last administered on 08/13/16 08:41; Admin Dose 2.5 MG; Start 08/10/16 at 21:00 IV Flush (NS 10 ml) 10 ml PRN PRN IV IV PROTOCOL; Start 08/11/16 at 17:00 Miscellaneous Information (*Rx Drug Level Order Reminder*) VANCO RANDOM LEVEL... ONCE ONCE XX ; Start 08/14/16 at 05:00; Stop 08/14/16 at 05:01 Hydralazine HCl (Apresoline) 10 mg Q8 PO ; Start 08/13/16 at 14:00 Amiodarone HCl (Cordarone) 200 mg BID NGT ; Start 08/13/16 at 21:00 YANIRA HART MD Aug 13, 2016 19:04
[2016-08-14] VITALS (20 sets, daily range): BP systolic 102–132; BP diastolic 45–62; PULSE 59–92; RESP 18
[2016-08-14] MEDS: INSULIN ASPART [NOVOLOG] 3 ML PEN SC SCH ×6 (02:32→20:48)
[2016-08-14] MEDS: PANTOPRAZOLE 40 MG INJ IV SCH (05:29)
[2016-08-14] MEDS: FUROSEMIDE 40 MG INJ IV SCH ×2 (05:30→18:17)
[2016-08-14 06:30] LABS: ADD SCAN DIFF NO
[2016-08-14 06:35] LABS: ABNORMAL IP MESSAGE 1; EOSINOPHILS # 0.1 10^3/ul (0.0-0.5); EOSINOPHILS % 2.8 % (0.0-7.0); HEMATOCRIT 34.6 % (42.0-52.0); HEMOGLOBIN 10.3 g/dl (14.0-18.0); LYMPHOCYTES # 0.5 10^3/ul (0.8-2.9); LYMPHOCYTES % 9.5 % (15.0-51.0); MEAN CORPUSCULAR HEMOGLOBIN 25.1 pg (29.0-33.0); MEAN CORPUSCULAR HGB CONC 29.8 g/dl (32.0-37.0); MEAN CORPUSCULAR VOLUME 84.2 fl (82.0-101.0); MEAN PLATELET VOLUME 11.2 fl (7.4-10.4); MONOCYTE # 0.2 10^3/ul (0.3-0.9); MONOCYTES % 5.1 % (0.0-11.0); NEUTROPHIL # 3.9 10^3/ul (1.6-7.5); NEUTROPHILS % 82.4 % (39.0-77.0); PLATELET COUNT 220 10^3/UL (140-415); RED BLOOD COUNT 4.11 10^6/ul (4.70-6.10); RED CELL DISTRIBUTION WIDTH 22.4 % (11.5-14.5); WHITE BLOOD COUNT 4.7 10^3/ul (4.8-10.8)
[2016-08-14 06:45] LABS: INR 1.46; POTASSIUM 3.5 mmol/L (3.5-5.1); PROTIME 17.8 Sec (12.2-14.2); PT RATIO 1.4
[2016-08-14 06:48] LABS: CREATININE 1.09 mg/dl (0.61-1.24)
[2016-08-14 06:49] LABS: CALCIUM 8.1 mg/dl (8.4-10.2); MAGNESIUM 1.5 mg/dl (1.7-2.5); PHOSPHORUS 2.4 mg/dl (2.5-4.9)
[2016-08-14] MEDS: SOD CHLORIDE 0.45% 1,000 ML IV SCH (07:40)
[2016-08-14] MEDS: SUCRALFATE 1 GM TAB NGT SCH ×4 (09:00→20:45)
[2016-08-14] MEDS: APIXABAN 5 MG TABLET PO SCH ×3 (09:00→20:45)
[2016-08-14] MEDS: AMIODARONE 200 MG TAB NGT SCH ×2 (09:00→13:55)
--- NOTE | 2016-08-14 09:03 | CONS ---
Date/Time of Note Date/Time of Note DATE: 08/14/16 TIME: 09:00 Assessment/Plan Assessment/Plan Additional Assessment/Plan Assessment recommendations; 1. Patient admitted for CHF exacerbation leading to respiratory failure no successfully extubated with excellent clinical status. 2. Renal insufficiency was improved serum creatinine. 3. Some element of aspiration pneumonia clinically and radiologically resolved. 4. Prior history of coronary artery disease status post bypass surgery. Continue current treatment. Patient responding well to current treatment regimen. I would recommend feeding the patient and removing NG tube. I had a detailed discussion the patient's son at bedside and answered all his questions. Consultation Date/Type/Reason Admit Date/Time Jul 18, 2016 at 14:06 Initial Consult Date 08/06/16 Type of Consultation: Pulmonary Referring Provider: MURIEL EWING 24 HR Interval Summary Free Text/Dictation Patient condition is continually improving. He is much more awake and alert. Denies any shortness of breath, chest pain, coughing, wheezing. Denies any difficulty swallowing. General exam; elderly male, currently in no distress. Awake and alert. Exam/Review of Systems Vital Signs Vitals Vital Signs Date Time Temp Pulse Resp B/P Pulse Ox O2 Delivery O2 Flow Rate FiO2 08/14/16 08:37 66 08/14/16 08:12 98.7 18 110/53 99 08/14/16 00:56 2.0 08/13/16 20:30 Nasal Cannula 08/11/16 16:00 30 Intake and Output 08/13/16 08/13/16 08/14/16 15:00 23:00 07:00 Intake Total 660 ml 650 ml Output Total 1300 ml 1100 ml Balance -640 ml -450 ml Exam H EENT examination; supple neck, positive JVD. No lymphadenopathy. Midline trachea. No thyromegaly. Patient has very few remaining teeth present. It was a midsize and reactive to light bilaterally. No thyromegaly. Chest examination; diminished but clear breath sounds bilaterally. S1-S2 audible, no murmurs. Regular rhythm. There is a well-healed sternal scar. Abdomen examination; soft, nondistended. No organomegaly. Bowel is audible. Extremity examination; no peripheral edema. 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 Results Result Diagram: 08/14/16 0545 08/14/16 0545 Results 24 hrs Laboratory Tests Test 08/13/16 13:48 08/13/16 17:39 08/13/16 20:50 08/14/16 00:53 Bedside Glucose 117 111 96 142 Test 08/14/16 05:26 08/14/16 05:45 08/14/16 08:20 Bedside Glucose 139 128 Anion Gap 12 Basophils # 0.0 Basophils % 0.0 Blood Urea Nitrogen 40 H Calcium Level 8.1 L Carbon Dioxide Level 33 H Chloride Level 104 Creatinine 1.09 Eosinophils # 0.1 Eosinophils % 2.8 Glucose Level 122 Hematocrit 34.6 L Hemoglobin 10.3 L INR International Normalized Ratio 1.46 Lymphocytes # 0.5 L Lymphocytes % 9.5 L Magnesium Level 1.5 L Mean Corpuscular Hemoglobin 25.1 L Mean Corpuscular Hemoglobin Concent 29.8 L Mean Corpuscular Volume 84.2 Mean Platelet Volume 11.2 H Monocytes # 0.2 L Monocytes % 5.1 Neutrophils # 3.9 Neutrophils % 82.4 H Nucleated Red Blood Cells # 0.0 Nucleated Red Blood Cells % 0.0 Phosphorus Level 2.4 L Platelet Count 220 # Potassium Level 3.5 Prothrombin Time 17.8 H Prothrombin Time Ratio 1.4 Random Vancomycin Level 8.5 Red Blood Count 4.11 L Red Cell Distribution Width 22.4 H Sodium Level 145 H White Blood Count 4.7 L Medications Medications Current Medications Aspirin (Halfprin) 81 mg DAILY PO Last administered on 08/05/16 09:06; Admin Dose 81 MG; Start 07/19/16 at 09:00; Status Future Hold Nitroglycerin (Nitroglycerin (Sl Tab) 0.4 Mg) 1 tab DAILY PRN SL CHEST PAIN; Start 07/18/16 at 15:30 Ondansetron HCl (Zofran Inj) 4 mg Q6H PRN IV NAUSEA AND/OR VOMITING Last administered on 08/05/16 23:48; Admin Dose 4 MG; Start 07/18/16 at 15:30 Acetaminophen (Tylenol Tab) 650 mg Q6H PRN PO PAIN LEVEL 1-3 OR FEVER Last administered on 08/12/16 20:48; Admin Dose 650 MG; Start 07/18/16 at 15:30 Acetaminophen (Tylenol Supp) 650 mg Q6H PRN MA PAIN LEVEL 1-3 OR FEVER; Start 07/18/16 at 15:30 Docusate Sodium (Colace) 100 mg Q12H PRN PO CONSTIPATION Last administered on 20:19; Admin Dose 100 MG; Start 07/18/16 at 15:30 Magnesium Hydroxide (Milk Of Mag) 30 ml DAILY PRN PO CONSTIPATION Last administered on 07/28/16 23:03; Admin Dose 30 ML; Start 07/18/16 at 15:30 Bisacodyl (Dulcolax Supp) 10 mg DAILY PRN [place] CONSTIPATION; Start 07/18/16 at 15 :30 Miscellaneous Information 1 ea NOTE XX ; Start 07/18/16 at 17:30 Glucose (Glutose) 15 gm Q15M PRN PO DECREASED GLUCOSE; Start 07/18/16 at 17:30 Glucose (Glutose) 22.5 gm Q15M PRN PO DECREASED GLUCOSE; Start 07/18/16 at 17: 30 Dextrose (D50w Syringe) 25 ml Q15M PRN IV DECREASED GLUCOSE; Start 07/18/16 at 17:30 Dextrose (D50w Syringe) 50 ml Q15M PRN IV DECREASED GLUCOSE; Start 07/18/16 at 17:30 Glucagon (Glucagen) 1 mg Q15M PRN IM DECREASED GLUCOSE; Start 07/18/16 at 17:30 Glucose (Glutose) 15 gm Q15M PRN BUCCAL DECREASED GLUCOSE; Start 07/18/16 at 17 :30 Guaifenesin/ Codeine Phosphate (Robitussin Ac Liquid Cup) 10 ml Q4H PRN PO COUGH Last administered on 07/19/16 19:43; Admin Dose 10 ML; Start 07/18/16 at 23:30 Carvedilol (Coreg) 3.125 mg BID PO Last administered on 08/03/16 20:05; Admin Dose 3.125 MG; Start 07/24/16 at 09:00; Status Future Hold Isosorbide Dinitrate 10 mg 10 mg TID PO Last administered on 08/03/16 19:58; Admin Dose 10 MG; Start 07/30/16 at 21:00; Status Future Hold Sodium Chloride (1/2 NS) 1,000 ml @ 20 mls/hr Q24H IV Last administered on 08:34; Admin Dose 20 MLS/HR; Start 08/08/16 at 07:00 Pantoprazole (Protonix Iv) 40 mg DAILY@06 IV Last administered on 08/14/16 05: 29; Admin Dose 40 MG; Start 08/10/16 at 06:00 Insulin Aspart (Novolog Insulin Pen) NOVOLOG *MILD* ALGORI... Q4 SC Last administered on 08/14/16 02:32; Admin Dose 1 UNIT; Start 08/09/16 at 13:00 Sucralfate (Carafate) 1 gm QID NGT Last administered on 08/13/16 20:44; Admin Dose 1 GM; Start 08/09/16 at 21:00 Apixaban (Eliquis) 2.5 mg BID PO Last administered on 08/13/16 20:44; Admin Dose 2.5 MG; Start 08/10/16 at 21:00 IV Flush (NS 10 ml) 10 ml PRN PRN IV IV PROTOCOL; Start 08/11/16 at 17:00 Hydralazine HCl (Apresoline) 10 mg Q8 PO Last administered on 08/14/16 05:30; Admin Dose 10 MG; Start 08/13/16 at 14:00 Amiodarone HCl (Cordarone) 200 mg BID NGT Last administered on 08/13/16 20:48 ; Admin Dose 200 MG; Start 08/13/16 at 21:00 ADAMARIS RAMIREZ 17, 2017 09:03
[2016-08-14] MEDS: MAGNESIUM SULFATE 4 GM/100 ML 100 ML IVPB ONE ×2 (12:52→13:52)
[2016-08-14] MEDS: POTASSIUM PHOSPHATE 40 MEQ in SOD CHLORIDE 0.9% 250 ML IVPB ONE ×2 (12:52→13:54)
[2016-08-14] MEDS: IPRATROPIUM (NEB) 0.5 MG/2.5 ML AMP HHN PRN ×2 (15:56→21:08)
[2016-08-14] MEDS: LEVALBUTEROL (NEB) 0.63 MG/3 ML AMP HHN PRN ×2 (15:56→21:08)
--- NOTE | 2016-08-14 16:08 | PN ---
Date/Time of Note Date/Time of Note DATE: 08/14/16 TIME: 16:05 Assessment/Plan VTE Prophylaxis VTE Prophylaxis Intervention: other Assessment/Plan Chief Complaint/Hosp Course 1. Acute Resp failure secondary to pulmonary edema and possible aspiration pneumonia-now extubated Status post Zosyn and vancomycin Pulmonology on case 2. Acute on chronic congestive heart failure Continue dialysis for volume overload, continue Lasix IV 3. 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 Type 2 diabetes-stable Insulin sliding scale 5. Atrial fibrillation, rate controlled 6. History of CAD status post CABG 7. Acute on likely chronic kidney disease 2/2 cardiorenal syndrome Continue hemodialysis 8. Acute encephalopathy secondary to uremic syndrome now improved with dialysis According to the family patient's mentation is back to baseline Speech therapy bedside swallow eval done patient is tolerating a p.o. diet hence will start p.o. feeding, DC NG tube 9. Debility secondary to comorbidities Continue PT, patient cannot ambulate need to go to a rehab center, nurse case manager aware 10. Cough possibly secondary to pulmonary edema with rapid removal of volume from the lung Phenergan as needed PPx- on Eliquis Problems: Subjective 24 Hr Interval Summary Constitutional: no complaints Exam/Review of Systems Vital Signs Vitals Vital Signs Date Time Temp Pulse Resp B/P Pulse Ox O2 Delivery O2 Flow Rate FiO2 08/14/16 15:57 85 20 98 Nasal Cannula 2.0 08/14/16 15:47 98.7 106/55 08/11/16 16:00 30 Intake and Output 08/13/16 08/13/16 08/14/16 15:00 23:00 07:00 Intake Total 660 ml 650 ml Output Total 1300 ml 1100 ml Balance -640 ml -450 ml Exam Constitutional: alert Respiratory: clear to auscultation Cardiovascular: regular rate and rhythm Gastrointestinal: soft, No distended Musculoskeletal: nl extremities to inspection Results Result Diagram: 08/14/16 0545 08/14/16 0545 Results 24 hrs Laboratory Tests Test 08/13/16 17:39 08/13/16 20:50 08/14/16 00:53 08/14/16 05:26 Bedside Glucose 111 96 142 139 Test 08/14/16 05:45 08/14/16 08:20 08/14/16 12:35 Anion Gap 12 Basophils # 0.0 Basophils % 0.0 Blood Urea Nitrogen 40 H Calcium Level 8.1 L Carbon Dioxide Level 33 H Chloride Level 104 Creatinine 1.09 Eosinophils # 0.1 Eosinophils % 2.8 Glucose Level 122 Hematocrit 34.6 L Hemoglobin 10.3 L INR International Normalized Ratio 1.46 Lymphocytes # 0.5 L Lymphocytes % 9.5 L Magnesium Level 1.5 L Mean Corpuscular Hemoglobin 25.1 L Mean Corpuscular Hemoglobin Concent 29.8 L Mean Corpuscular Volume 84.2 Mean Platelet Volume 11.2 H Monocytes # 0.2 L Monocytes % 5.1 Neutrophils # 3.9 Neutrophils % 82.4 H Nucleated Red Blood Cells # 0.0 Nucleated Red Blood Cells % 0.0 Phosphorus Level 2.4 L Platelet Count 220 # Potassium Level 3.5 Prothrombin Time 17.8 H Prothrombin Time Ratio 1.4 Random Vancomycin Level 8.5 Red Blood Count 4.11 L Red Cell Distribution Width 22.4 H Sodium Level 145 H White Blood Count 4.7 L Bedside Glucose 128 117 Medications Medications Current Medications Aspirin (Halfprin) 81 mg DAILY PO Last administered on 08/05/16 09:06; Admin Dose 81 MG; Start 07/19/16 at 09:00; Status Future Hold Nitroglycerin (Nitroglycerin (Sl Tab) 0.4 Mg) 1 tab DAILY PRN SL CHEST PAIN; Start 07/18/16 at 15:30 Ondansetron HCl (Zofran Inj) 4 mg Q6H PRN IV NAUSEA AND/OR VOMITING Last administered on 08/05/16 23:48; Admin Dose 4 MG; Start 07/18/16 at 15:30 Acetaminophen (Tylenol Tab) 650 mg Q6H PRN PO PAIN LEVEL 1-3 OR FEVER Last administered on 08/12/16 20:48; Admin Dose 650 MG; Start 07/18/16 at 15:30 Acetaminophen (Tylenol Supp) 650 mg Q6H PRN PA PAIN LEVEL 1-3 OR FEVER; Start 07/18/16 at 15:30 Docusate Sodium (Colace) 100 mg Q12H PRN PO CONSTIPATION Last administered on 20:19; Admin Dose 100 MG; Start 07/18/16 at 15:30 Magnesium Hydroxide (Milk Of Mag) 30 ml DAILY PRN PO CONSTIPATION Last administered on 07/28/16 23:03; Admin Dose 30 ML; Start 07/18/16 at 15:30 Bisacodyl (Dulcolax Supp) 10 mg DAILY PRN [place] CONSTIPATION; Start 07/18/16 at 15 :30 Miscellaneous Information 1 ea NOTE XX ; Start 07/18/16 at 17:30 Glucose (Glutose) 15 gm Q15M PRN PO DECREASED GLUCOSE; Start 07/18/16 at 17:30 Glucose (Glutose) 22.5 gm Q15M PRN PO DECREASED GLUCOSE; Start 07/18/16 at 17: 30 Dextrose (D50w Syringe) 25 ml Q15M PRN IV DECREASED GLUCOSE; Start 07/18/16 at 17:30 Dextrose (D50w Syringe) 50 ml Q15M PRN IV DECREASED GLUCOSE; Start 07/18/16 at 17:30 Glucagon (Glucagen) 1 mg Q15M PRN IM DECREASED GLUCOSE; Start 07/18/16 at 17:30 Glucose (Glutose) 15 gm Q15M PRN BUCCAL DECREASED GLUCOSE; Start 07/18/16 at 17 :30 Guaifenesin/ Codeine Phosphate (Robitussin Ac Liquid Cup) 10 ml Q4H PRN PO COUGH Last administered on 07/19/16 19:43; Admin Dose 10 ML; Start 07/18/16 at 23:30 Carvedilol (Coreg) 3.125 mg BID PO Last administered on 08/03/16 20:05; Admin Dose 3.125 MG; Start 07/24/16 at 09:00; Status Future Hold Isosorbide Dinitrate 10 mg 10 mg TID PO Last administered on 08/03/16 19:58; Admin Dose 10 MG; Start 07/30/16 at 21:00; Status Future Hold Sodium Chloride (1/2 NS) 1,000 ml @ 20 mls/hr Q24H IV Last administered on 08:34; Admin Dose 20 MLS/HR; Start 08/08/16 at 07:00 Pantoprazole (Protonix Iv) 40 mg DAILY@06 IV Last administered on 08/14/16 05: 29; Admin Dose 40 MG; Start 08/10/16 at 06:00 Insulin Aspart (Novolog Insulin Pen) NOVOLOG *MILD* ALGORI... Q4 SC Last administered on 08/14/16 02:32; Admin Dose 1 UNIT; Start 08/09/16 at 13:00 Sucralfate (Carafate) 1 gm QID NGT Last administered on 08/14/16 13:50; Admin Dose 1 GM; Start 08/09/16 at 21:00 Apixaban (Eliquis) 2.5 mg BID PO Last administered on 08/14/16 13:54; Admin Dose 2.5 MG; Start 08/10/16 at 21:00 IV Flush (NS 10 ml) 10 ml PRN PRN IV IV PROTOCOL; Start 08/11/16 at 17:00 Hydralazine HCl (Apresoline) 10 mg Q8 PO Last administered on 08/14/16 14:21; Admin Dose 10 MG; Start 08/13/16 at 14:00 Amiodarone HCl (Cordarone) 200 mg BID NGT Last administered on 08/14/16 13:55 ; Admin Dose 200 MG; Start 08/13/16 at 21:00 MURIEL EWING Aug 14, 2016 16:08
[2016-08-14] MEDS ORDERED: PROMETHAZINE/DM (CUP) PO PRN (16:30)
--- NOTE | 2016-08-14 17:28 | CONS ---
Date/Time of Note Date/Time of Note DATE: 08/14/16 TIME: 17:25 Assessment/Plan Assessment/Plan Chief Complaint/Hosp Course IMPRESSION: 1. Congestive heart failure exacerbation, systolic, acute on chronic. EF 25% by most recent echo-worsening. Minimally + troponin after cardiac arrest 2. Resp failure s/p intubation 3. Hypotension/shock-on levo and vasopressin 3. History of coronary artery bypass graft surgery. 4. Abnormal electrocardiogram . MIldly postive trop after cardiac arrest 5. History of paroxysmal atrial fibrillation-on apixaban 6. Acute on chronic renal failure-Now on HD 8. Anemia, mild. 9. Coagulopathy secondary to apixaban- improving 10.Hematuria Rec: -tele -Hold amio and follow rhythm as per ECG questionable CHB with V pacing -Continue to hold coreg/isordil -Continue hydralazine low dose afterload reduction -Continue HD for volume removal -Continue daily lasix and follow gyro compass tester/vol status closely -Continue apixaban now that coagulopathy improved Problems: Consultation Date/Type/Reason Admit Date/Time Jul 18, 2016 at 14:06 Initial Consult Date 07/19/2016 Type of Consultation: Cardiology Reason for Consultation CHF Referring Provider: MURIEL EWING Exam/Review of Systems Vital Signs Vitals Vital Signs Date Time Temp Pulse Resp B/P Pulse Ox O2 Delivery O2 Flow Rate FiO2 08/14/16 16:30 63 08/14/16 15:57 20 98 Nasal Cannula 2.0 08/14/16 15:47 98.7 106/55 08/11/16 16:00 30 Intake and Output 08/13/16 08/13/16 08/14/16 15:00 23:00 07:00 Intake Total 660 ml 650 ml Output Total 1300 ml 1100 ml Balance -640 ml -450 ml Exam Review of Systems: CONSTITUTIONAL: No fevers, chills. PULMONARY: No sob CARDIOVASCULAR: No chest pain/palpitations GASTROINTESTINAL: No nausea/vomiting. GENITOURINARY: No hematuria/dysuria. MUSCULOSKELETAL: No myagias/arthalgias. PSYCHIATRIC: The patient denies depression. NEUROLOGIC: No weakness Constitutional: alert Psych: no complaints Head: normocephalic ENMT: mucosa pink and moist Neck: jvd (9 cm water), supple Respiratory: diminished breath sounds (at bases/B) Cardiovascular: irregular rhythm Gastrointestinal: non-tender, soft Extremities: edema (none) Neurological: lethargic, other (No focal deficits) Results Result Diagram: 08/14/16 0545 08/14/16 0545 Results 24 hrs Laboratory Tests Test 08/13/16 17:39 08/13/16 20:50 08/14/16 00:53 08/14/16 05:26 Bedside Glucose 111 96 142 139 Test 08/14/16 05:45 08/14/16 08:20 08/14/16 12:35 Anion Gap 12 Basophils # 0.0 Basophils % 0.0 Blood Urea Nitrogen 40 H Calcium Level 8.1 L Carbon Dioxide Level 33 H Chloride Level 104 Creatinine 1.09 Eosinophils # 0.1 Eosinophils % 2.8 Glucose Level 122 Hematocrit 34.6 L Hemoglobin 10.3 L INR International Normalized Ratio 1.46 Lymphocytes # 0.5 L Lymphocytes % 9.5 L Magnesium Level 1.5 L Mean Corpuscular Hemoglobin 25.1 L Mean Corpuscular Hemoglobin Concent 29.8 L Mean Corpuscular Volume 84.2 Mean Platelet Volume 11.2 H Monocytes # 0.2 L Monocytes % 5.1 Neutrophils # 3.9 Neutrophils % 82.4 H Nucleated Red Blood Cells # 0.0 Nucleated Red Blood Cells % 0.0 Phosphorus Level 2.4 L Platelet Count 220 # Potassium Level 3.5 Prothrombin Time 17.8 H Prothrombin Time Ratio 1.4 Random Vancomycin Level 8.5 Red Blood Count 4.11 L Red Cell Distribution Width 22.4 H Sodium Level 145 H White Blood Count 4.7 L Bedside Glucose 128 117 Medications Medications Current Medications Aspirin (Halfprin) 81 mg DAILY PO Last administered on 08/05/16 09:06; Admin Dose 81 MG; Start 07/19/16 at 09:00; Status Future Hold Nitroglycerin (Nitroglycerin (Sl Tab) 0.4 Mg) 1 tab DAILY PRN SL CHEST PAIN; Start 07/18/16 at 15:30 Ondansetron HCl (Zofran Inj) 4 mg Q6H PRN IV NAUSEA AND/OR VOMITING Last administered on 08/05/16 23:48; Admin Dose 4 MG; Start 07/18/16 at 15:30 Acetaminophen (Tylenol Tab) 650 mg Q6H PRN PO PAIN LEVEL 1-3 OR FEVER Last administered on 08/12/16 20:48; Admin Dose 650 MG; Start 07/18/16 at 15:30 Acetaminophen (Tylenol Supp) [address] PAIN LEVEL 1-3 OR FEVER; Start 07/18/16 at 15:30 Docusate Sodium (Colace) 100 mg Q12H PRN PO CONSTIPATION Last administered on 20:19; Admin Dose 100 MG; Start 07/18/16 at 15:30 Magnesium Hydroxide (Milk Of Mag) 30 ml DAILY PRN PO CONSTIPATION Last administered on 07/28/16 23:03; Admin Dose 30 ML; Start 07/18/16 at 15:30 Bisacodyl (Dulcolax Supp) [address] CONSTIPATION; Start 07/18/16 at 15 :30 Miscellaneous Information 1 ea NOTE XX ; Start 07/18/16 at 17:30 Glucose (Glutose) 15 gm Q15M PRN PO DECREASED GLUCOSE; Start 07/18/16 at 17:30 Glucose (Glutose) 22.5 gm Q15M PRN PO DECREASED GLUCOSE; Start 07/18/16 at 17: 30 Dextrose (D50w Syringe) 25 ml Q15M PRN IV DECREASED GLUCOSE; Start 07/18/16 at 17:30 Dextrose (D50w Syringe) 50 ml Q15M PRN IV DECREASED GLUCOSE; Start 07/18/16 at 17:30 Glucagon (Glucagen) 1 mg Q15M PRN IM DECREASED GLUCOSE; Start 07/18/16 at 17:30 Glucose (Glutose) 15 gm Q15M PRN BUCCAL DECREASED GLUCOSE; Start 07/18/16 at 17 :30 Guaifenesin/ Codeine Phosphate (Robitussin Ac Liquid Cup) 10 ml Q4H PRN PO COUGH Last administered on 07/19/16 19:43; Admin Dose 10 ML; Start 07/18/16 at 23:30 Carvedilol (Coreg) 3.125 mg BID PO Last administered on 08/03/16 20:05; Admin Dose 3.125 MG; Start 07/24/16 at 09:00; Status Future Hold Isosorbide Dinitrate 10 mg 10 mg TID PO Last administered on 08/03/16 19:58; Admin Dose 10 MG; Start 07/30/16 at 21:00; Status Future Hold Sodium Chloride (1/2 NS) 1,000 ml @ 20 mls/hr Q24H IV Last administered on 08:34; Admin Dose 20 MLS/HR; Start 08/08/16 at 07:00 Pantoprazole (Protonix Iv) 40 mg DAILY@06 IV Last administered on 08/14/16 05: 29; Admin Dose 40 MG; Start 08/10/16 at 06:00 Insulin Aspart (Novolog Insulin Pen) NOVOLOG *MILD* ALGORI... Q4 SC Last administered on 08/14/16 02:32; Admin Dose 1 UNIT; Start 08/09/16 at 13:00 Sucralfate (Carafate) 1 gm QID NGT Last administered on 08/14/16 13:50; Admin Dose 1 GM; Start 08/09/16 at 21:00 Apixaban (Eliquis) 2.5 mg BID PO Last administered on 08/14/16 13:54; Admin Dose 2.5 MG; Start 08/10/16 at 21:00 IV Flush (NS 10 ml) 10 ml PRN PRN IV IV PROTOCOL; Start 08/11/16 at 17:00 Hydralazine HCl (Apresoline) 10 mg Q8 PO Last administered on 08/14/16 14:21; Admin Dose 10 MG; Start 08/13/16 at 14:00 Amiodarone HCl (Cordarone) 200 mg BID NGT Last administered on 08/14/16 13:55 ; Admin Dose 200 MG; Start 08/13/16 at 21:00 Promethazine HCl/ Dextromethorphan (Phenergan-Dm) 5 ml Q4H PRN PO COUGH; Start 08/14/16 at 16:30 POLI SAN Aug 14, 2016 17:28
[2016-08-14] MEDS ORDERED: MAGNESIUM SULFATE 2 GM/50 ML 50 ML IVPB ONE (18:00)
--- NOTE | 2016-08-14 18:05 | CONS ---
Date/Time of Note Date/Time of Note DATE: 08/14/16 TIME: 18:04 Assessment/Plan Assessment/Plan Chief Complaint/Hosp Course 1. Patient has acute on chronic renal failure with acute kidney injury due to systolic heart failure. on dialysis 2. The patient has LOW EF now on vent/cardio renal syndrome s/p extubation 3. Anemia. 4. ASHD 5. Acute urinary tract infection.BETTER 6 LOW EF 7 hyperkalemia HX 8 afib 9 hematuria HX plan continue hd for now Problems: Consultation Date/Type/Reason Admit Date/Time Jul 18, 2016 at 14:06 Type of Consultation: renal Referring Provider: MURIEL EWING 24 HR Interval Summary Constitutional: other (sob+) Exam/Review of Systems Vital Signs Vitals Vital Signs Date Time Temp Pulse Resp B/P Pulse Ox O2 Delivery O2 Flow Rate FiO2 08/14/16 16:30 63 08/14/16 15:57 20 98 Nasal Cannula 2.0 08/14/16 15:47 98.7 106/55 08/11/16 16:00 30 Intake and Output 08/13/16 08/13/16 08/14/16 15:00 23:00 07:00 Intake Total 660 ml 650 ml Output Total 1300 ml 1100 ml Balance -640 ml -450 ml Exam Respiratory: diminished breath sounds Cardiovascular: regular rate and rhythm Gastrointestinal: soft Musculoskeletal: nl extremities to inspection Results Result Diagram: 08/14/16 0545 08/14/16 0545 Results 24 hrs Laboratory Tests Test 08/13/16 20:50 08/14/16 00:53 08/14/16 05:26 08/14/16 05:45 Bedside Glucose 96 142 139 Anion Gap 12 Basophils # 0.0 Basophils % 0.0 Blood Urea Nitrogen 40 H Calcium Level 8.1 L Carbon Dioxide Level 33 H Chloride Level 104 Creatinine 1.09 Eosinophils # 0.1 Eosinophils % 2.8 Glucose Level 122 Hematocrit 34.6 L Hemoglobin 10.3 L INR International Normalized Ratio 1.46 Lymphocytes # 0.5 L Lymphocytes % 9.5 L Magnesium Level 1.5 L Mean Corpuscular Hemoglobin 25.1 L Mean Corpuscular Hemoglobin Concent 29.8 L Mean Corpuscular Volume 84.2 Mean Platelet Volume 11.2 H Monocytes # 0.2 L Monocytes % 5.1 Neutrophils # 3.9 Neutrophils % 82.4 H Nucleated Red Blood Cells # 0.0 Nucleated Red Blood Cells % 0.0 Phosphorus Level 2.4 L Platelet Count 220 # Potassium Level 3.5 Prothrombin Time 17.8 H Prothrombin Time Ratio 1.4 Random Vancomycin Level 8.5 Red Blood Count 4.11 L Red Cell Distribution Width 22.4 H Sodium Level 145 H White Blood Count 4.7 L Test 08/14/16 08:20 08/14/16 12:35 08/14/16 17:19 Bedside Glucose 128 117 119 Medications Medications Current Medications Aspirin (Halfprin) 81 mg DAILY PO Last administered on 08/05/16 09:06; Admin Dose 81 MG; Start 07/19/16 at 09:00; Status Future Hold Nitroglycerin (Nitroglycerin (Sl Tab) 0.4 Mg) 1 tab DAILY PRN SL CHEST PAIN; Start 07/18/16 at 15:30 Ondansetron HCl (Zofran Inj) 4 mg Q6H PRN IV NAUSEA AND/OR VOMITING Last administered on 08/05/16 23:48; Admin Dose 4 MG; Start 07/18/16 at 15:30 Acetaminophen (Tylenol Tab) 650 mg Q6H PRN PO PAIN LEVEL 1-3 OR FEVER Last administered on 08/12/16 20:48; Admin Dose 650 MG; Start 07/18/16 at 15:30 Acetaminophen (Tylenol Supp) 650 mg Q6H PRN [place] PAIN LEVEL 1-3 OR FEVER; Start 07/18/16 at 15:30 Docusate Sodium (Colace) 100 mg Q12H PRN PO CONSTIPATION Last administered on 20:19; Admin Dose 100 MG; Start 07/18/16 at 15:30 Magnesium Hydroxide (Milk Of Mag) 30 ml DAILY PRN PO CONSTIPATION Last administered on 07/28/16 23:03; Admin Dose 30 ML; Start 07/18/16 at 15:30 Bisacodyl (Dulcolax Supp) 10 mg DAILY PRN [place] CONSTIPATION; Start 07/18/16 at 15 :30 Miscellaneous Information 1 ea NOTE XX ; Start 07/18/16 at 17:30 Glucose (Glutose) 15 gm Q15M PRN PO DECREASED GLUCOSE; Start 07/18/16 at 17:30 Glucose (Glutose) 22.5 gm Q15M PRN PO DECREASED GLUCOSE; Start 07/18/16 at 17: 30 Dextrose (D50w Syringe) 25 ml Q15M PRN IV DECREASED GLUCOSE; Start 07/18/16 at 17:30 Dextrose (D50w Syringe) 50 ml Q15M PRN IV DECREASED GLUCOSE; Start 07/18/16 at 17:30 Glucagon (Glucagen) 1 mg Q15M PRN IM DECREASED GLUCOSE; Start 07/18/16 at 17:30 Glucose (Glutose) 15 gm Q15M PRN BUCCAL DECREASED GLUCOSE; Start 07/18/16 at 17 :30 Guaifenesin/ Codeine Phosphate (Robitussin Ac Liquid Cup) 10 ml Q4H PRN PO COUGH Last administered on 07/19/16 19:43; Admin Dose 10 ML; Start 07/18/16 at 23:30 Carvedilol (Coreg) 3.125 mg BID PO Last administered on 08/03/16 20:05; Admin Dose 3.125 MG; Start 07/24/16 at 09:00; Status Future Hold Isosorbide Dinitrate 10 mg 10 mg TID PO Last administered on 08/03/16 19:58; Admin Dose 10 MG; Start 07/30/16 at 21:00; Status Future Hold Sodium Chloride (1/2 NS) 1,000 ml @ 20 mls/hr Q24H IV Last administered on 08:34; Admin Dose 20 MLS/HR; Start 08/08/16 at 07:00 Pantoprazole (Protonix Iv) 40 mg DAILY@06 IV Last administered on 08/14/16 05: 29; Admin Dose 40 MG; Start 08/10/16 at 06:00 Insulin Aspart (Novolog Insulin Pen) NOVOLOG *MILD* ALGORI... Q4 SC Last administered on 08/14/16 02:32; Admin Dose 1 UNIT; Start 08/09/16 at 13:00 Sucralfate (Carafate) 1 gm QID NGT Last administered on 08/14/16 17:18; Admin Dose 1 GM; Start 08/09/16 at 21:00 Apixaban (Eliquis) 2.5 mg BID PO Last administered on 08/14/16 13:54; Admin Dose 2.5 MG; Start 08/10/16 at 21:00 IV Flush (NS 10 ml) 10 ml PRN PRN IV IV PROTOCOL; Start 08/11/16 at 17:00 Hydralazine HCl (Apresoline) 10 mg Q8 PO Last administered on 08/14/16 14:21; Admin Dose 10 MG; Start 08/13/16 at 14:00 Amiodarone HCl (Cordarone) 200 mg BID NGT Last administered on 08/14/16 13:55 ; Admin Dose 200 MG; Start 08/13/16 at 21:00; Status Future Hold Promethazine HCl/ Dextromethorphan 5 ml 5 ml Q4H PRN PO COUGH; Start 08/14/16 at 16:30 Magnesium Sulfate (Magnesium Sulfate 2 Gm/50 ml) 50 ml @ 25 mls/hr ONCE ONCE IVPB ; Start 08/14/16 at 18:00; Stop 08/14/16 at 19:59 YANIRA HART MD Aug 14, 2016 18:05
[2016-08-14] MEDS ORDERED: GLUCAGON 1 MG INJ IM PRN (20:00)
[2016-08-14] MEDS ORDERED: GLUCOSE GEL 15 GRAM TUBE BUCCAL PRN (20:00)
[2016-08-14] MEDS ORDERED: GLUCOSE GEL 15 GRAM TUBE PO PRN ×2 (20:00)
[2016-08-14] MEDS ORDERED: DEXTROSE 50% 50 ML SYRINGE IV PRN ×2 (20:00)
[2016-08-15] VITALS (14 sets, daily range): BP systolic 95–126; BP diastolic 51–79; PULSE 59–64; RESP 16–19
[2016-08-15] MEDS: ACCU-CHEK XX SCH (01:39)
[2016-08-15] MEDS: SOD CHLORIDE 0.45% 1,000 ML IV SCH (01:50)
[2016-08-15] MEDS ORDERED: ACCU-CHEK XX SCH (02:00)
[2016-08-15] MEDS: FUROSEMIDE 40 MG INJ IV SCH ×2 (05:30→17:37)
[2016-08-15] MEDS: PANTOPRAZOLE 40 MG INJ IV SCH (05:30)
[2016-08-15 06:27] LABS: ADD SCAN DIFF NO
[2016-08-15 06:46] LABS: ABNORMAL IP MESSAGE 1; EOSINOPHILS # 0.1 10^3/ul (0.0-0.5); EOSINOPHILS % 1.5 % (0.0-7.0); HEMATOCRIT 32.2 % (42.0-52.0); HEMOGLOBIN 9.6 g/dl (14.0-18.0); LYMPHOCYTES # 0.5 10^3/ul (0.8-2.9); LYMPHOCYTES % 9.7 % (15.0-51.0); MEAN CORPUSCULAR HEMOGLOBIN 24.9 pg (29.0-33.0); MEAN CORPUSCULAR HGB CONC 29.8 g/dl (32.0-37.0); MEAN CORPUSCULAR VOLUME 83.4 fl (82.0-101.0); MONOCYTE # 0.2 10^3/ul (0.3-0.9); MONOCYTES % 4.7 % (0.0-11.0); NEUTROPHILS % 83.7 % (39.0-77.0); PLATELET COUNT 222 10^3/UL (140-415); RED BLOOD COUNT 3.86 10^6/ul (4.70-6.10); RED CELL DISTRIBUTION WIDTH 22.1 % (11.5-14.5); WHITE BLOOD COUNT 4.7 10^3/ul (4.8-10.8)
[2016-08-15 06:55] LABS: POTASSIUM 3.7 mmol/L (3.5-5.1)
[2016-08-15 06:58] LABS: CREATININE 0.87 mg/dl (0.61-1.24)
[2016-08-15 06:59] LABS: CALCIUM 7.9 mg/dl (8.4-10.2); MAGNESIUM 2.2 mg/dl (1.7-2.5); PHOSPHORUS 3.2 mg/dl (2.5-4.9)
[2016-08-15] MEDS: INSULIN ASPART [NOVOLOG] 3 ML PEN SC SCH ×4 (07:55→21:00)
[2016-08-15] MEDS: APIXABAN 5 MG TABLET PO SCH ×2 (09:17→21:53)
[2016-08-15] MEDS: SUCRALFATE 1 GM TAB NGT SCH ×4 (09:18→21:53)
--- NOTE | 2016-08-15 11:31 | CONS ---
Date/Time of Note Date/Time of Note DATE: 08/15/16 TIME: 11:26 Assessment/Plan Assessment/Plan Chief Complaint/Hosp Course 1. Patient has acute on chronic renal failure with acute kidney injury due to systolic heart failure, on dialysis, Improvement 2. The patient has LOW EF now on vent/cardio renal syndrome s/p extubation 3. Anemia. 4. ASHD 5. Acute urinary tract infection.BETTER 6. afib, V pacing 9 Hx of hematuria Problems: Additional Assessment/Plan 1. Continue PT 2. Continue HD as needed 3. Consultation Date/Type/Reason Admit Date/Time Jul 18, 2016 at 14:06 Initial Consult Date 08/06/16 Type of Consultation: renal Reason for Consultation nephrology Referring Provider: MURIEL EWING 24 HR Interval Summary Constitutional: improved, no complaints Exam/Review of Systems Vital Signs Vitals Vital Signs Date Time Temp Pulse Resp B/P Pulse Ox O2 Delivery O2 Flow Rate FiO2 08/15/16 08:18 64 08/15/16 08:00 Nasal Cannula 2.0 08/15/16 06:53 98.1 19 105/52 100 08/11/16 16:00 30 Intake and Output 08/14/16 08/14/16 08/15/16 15:00 23:00 07:00 Intake Total 300 ml 1069.09 ml 540 ml Output Total 2300 ml 500 ml 300 ml Balance -2000 ml 569.09 ml 240 ml Exam Constitutional: alert, oriented Psych: no complaints Head: normocephalic Eyes: nl conjunctiva Neck: supple Respiratory: clear to auscultation, diminished breath sounds Cardiovascular: other (v-pace), regular rate and rhythm Gastrointestinal: soft Genitourinary - Male: other (cohen) Skin: nl turgor Results Result Diagram: 08/15/16 0524 08/15/16 0524 Results 24 hrs Laboratory Tests Test 08/14/16 12:35 08/14/16 17:19 08/14/16 20:48 08/15/16 05:24 Bedside Glucose 117 119 125 Anion Gap 13 Basophils # 0.0 Basophils % 0.0 Blood Urea Nitrogen 27 #H Calcium Level 7.9 L Carbon Dioxide Level 31 Chloride Level 99 Creatinine 0.87 Eosinophils # 0.1 Eosinophils % 1.5 Glucose Level 92 Hematocrit 32.2 L Hemoglobin 9.6 L Lymphocytes # 0.5 L Lymphocytes % 9.7 L Magnesium Level 2.2 Mean Corpuscular Hemoglobin 24.9 L Mean Corpuscular Hemoglobin Concent 29.8 L Mean Corpuscular Volume 83.4 Mean Platelet Volume 11.0 H Monocytes # 0.2 L Monocytes % 4.7 Neutrophils # 4.0 Neutrophils % 83.7 H Nucleated Red Blood Cells # 0.0 Nucleated Red Blood Cells % 0.0 Phosphorus Level 3.2 Platelet Count 222 Potassium Level 3.7 Red Blood Count 3.86 L Red Cell Distribution Width 22.1 H Sodium Level 139 White Blood Count 4.7 L Test 08/15/16 07:59 Bedside Glucose 95 Medications Medications Current Medications Aspirin (Halfprin) 81 mg DAILY PO Last administered on 08/05/16 09:06; Admin Dose 81 MG; Start 07/19/16 at 09:00; Status Future Hold Nitroglycerin (Nitroglycerin (Sl Tab) 0.4 Mg) 1 tab DAILY PRN SL CHEST PAIN; Start 07/18/16 at 15:30 Ondansetron HCl (Zofran Inj) 4 mg Q6H PRN IV NAUSEA AND/OR VOMITING Last administered on 08/05/16 23:48; Admin Dose 4 MG; Start 07/18/16 at 15:30 Acetaminophen (Tylenol Tab) 650 mg Q6H PRN PO PAIN LEVEL 1-3 OR FEVER Last administered on 08/12/16 20:48; Admin Dose 650 MG; Start 07/18/16 at 15:30 Acetaminophen (Tylenol Supp) 650 mg Q6H PRN [place] PAIN LEVEL 1-3 OR FEVER; Start 07/18/16 at 15:30 Docusate Sodium (Colace) 100 mg Q12H PRN PO CONSTIPATION Last administered on 20:19; Admin Dose 100 MG; Start 07/18/16 at 15:30 Magnesium Hydroxide (Milk Of Mag) 30 ml DAILY PRN PO CONSTIPATION Last administered on 07/28/16 23:03; Admin Dose 30 ML; Start 07/18/16 at 15:30 Bisacodyl (Dulcolax Supp) 10 mg DAILY PRN [place] CONSTIPATION Last administered on 08/15/16 01:50; Admin Dose 10 MG; Start 07/18/16 at 15:30 Miscellaneous Information 1 ea NOTE XX ; Start 07/18/16 at 17:30 Glucose (Glutose) 15 gm Q15M PRN PO DECREASED GLUCOSE; Start 07/18/16 at 17:30 Glucose (Glutose) 22.5 gm Q15M PRN PO DECREASED GLUCOSE; Start 07/18/16 at 17: 30 Dextrose (D50w Syringe) 25 ml Q15M PRN IV DECREASED GLUCOSE; Start 07/18/16 at 17:30 Dextrose (D50w Syringe) 50 ml Q15M PRN IV DECREASED GLUCOSE; Start 07/18/16 at 17:30 Glucagon (Glucagen) 1 mg Q15M PRN IM DECREASED GLUCOSE; Start 07/18/16 at 17:30 Glucose (Glutose) 15 gm Q15M PRN BUCCAL DECREASED GLUCOSE; Start 07/18/16 at 17 :30 Guaifenesin/ Codeine Phosphate (Robitussin Ac Liquid Cup) 10 ml Q4H PRN PO COUGH Last administered on 07/19/16 19:43; Admin Dose 10 ML; Start 07/18/16 at 23:30 Carvedilol (Coreg) 3.125 mg BID PO Last administered on 08/03/16 20:05; Admin Dose 3.125 MG; Start 07/24/16 at 09:00; Status Future Hold Isosorbide Dinitrate 10 mg 10 mg TID PO Last administered on 08/03/16 19:58; Admin Dose 10 MG; Start 07/30/16 at 21:00; Status Future Hold Sodium Chloride (1/2 NS) 1,000 ml @ 20 mls/hr Q24H IV Last administered on 01:50; Admin Dose 20 MLS/HR; Start 08/08/16 at 07:00 Pantoprazole (Protonix Iv) 40 mg DAILY@06 IV Last administered on 08/15/16 05: 30; Admin Dose 40 MG; Start 08/10/16 at 06:00 Sucralfate (Carafate) 1 gm QID NGT Last administered on 08/15/16 09:18; Admin Dose 1 GM; Start 08/09/16 at 21:00 Apixaban (Eliquis) 2.5 mg BID PO Last administered on 08/15/16 09:17; Admin Dose 2.5 MG; Start 08/10/16 at 21:00 IV Flush (NS 10 ml) 10 ml PRN PRN IV IV PROTOCOL; Start 08/11/16 at 17:00 Hydralazine HCl (Apresoline) 10 mg Q8 PO Last administered on 08/15/16 05:30; Admin Dose 10 MG; Start 08/13/16 at 14:00 Amiodarone HCl (Cordarone) 200 mg BID NGT Last administered on 08/14/16 13:55 ; Admin Dose 200 MG; Start 08/13/16 at 21:00; Status Future Hold Promethazine HCl/ Dextromethorphan (Phenergan-Dm) 5 ml Q4H PRN PO COUGH; Start 08/14/16 at 16:30 Diagnostic Test (Pha) (Accucheck) 1 ea 02 XX ; Start 08/15/16 at 02:00 Miscellaneous Information 1 ea NOTE XX ; Start 08/14/16 at 20:00 Glucose (Glutose) 15 gm Q15M PRN PO DECREASED GLUCOSE; Start 08/14/16 at 20:00 Glucose (Glutose) 22.5 gm Q15M PRN PO DECREASED GLUCOSE; Start 08/14/16 at 20: 00 Dextrose (D50w Syringe) 25 ml Q15M PRN IV DECREASED GLUCOSE; Start 08/14/16 at 20:00 Dextrose (D50w Syringe) 50 ml Q15M PRN IV DECREASED GLUCOSE; Start 08/14/16 at 20:00 Glucagon (Glucagen) 1 mg Q15M PRN IM DECREASED GLUCOSE; Start 08/14/16 at 20:00 Glucose (Glutose) 15 gm Q15M PRN BUCCAL DECREASED GLUCOSE; Start 08/14/16 at 20 :00 RAMONA MCCLOUD Aug 15, 2016 11:31
--- NOTE | 2016-08-15 13:18 | CONS ---
Date/Time of Note Date/Time of Note DATE: 08/15/16 TIME: 13:15 Assessment/Plan Assessment/Plan Additional Assessment/Plan 1. Congestive heart failure exacerbation, systolic, acute on chronic. EF 25% by most recent echo-worsening. Minimally + troponin after cardiac arrest - will monitor clinically for now. 2. Resp failure s/p intubation - pulmonary team follows. 3. Hypotension/shock-on levo and vasopressin 3. History of coronary artery bypass graft surgery. NO CP- no intervention planned now. 4. Abnormal electrocardiogram . MIldly postive trop after cardiac arrest 5. History of paroxysmal atrial fibrillation-on apixaban - in a . fib/paced. 6. Acute on chronic renal failure-Now on HD 8. Anemia, mild. 9. Coagulopathy secondary to apixaban- improving 10.Hematuria Consultation Date/Type/Reason Admit Date/Time Jul 18, 2016 at 14:06 Type of Consultation: renal Referring Provider: MURIEL EWING 24 HR Interval Summary Free Text/Dictation No acute change - 100% paced on tele - con't to monitor.No active instability noted. ROS: No fever, no chills, no nausea, no vomiting, no diarrhea/constipation No recent weight changes No chest pain, no PND, no orthopnea No dizziness, blurred vision No thirst, no heat or cold intolerance (per nurse) Exam/Review of Systems Vital Signs Vitals Vital Signs Date Time Temp Pulse Resp B/P Pulse Ox O2 Delivery O2 Flow Rate FiO2 08/15/16 12:15 61 08/15/16 11:59 97.9 18 108/61 98 08/15/16 08:00 Nasal Cannula 2.0 08/11/16 16:00 30 Intake and Output 08/14/16 08/14/16 08/15/16 15:00 23:00 07:00 Intake Total 300 ml 1069.09 ml 540 ml Output Total 2300 ml 500 ml 300 ml Balance -2000 ml 569.09 ml 240 ml Exam General: WN/WD/NAD, AOx 0 HEENT: Unicetric/atraumatic/EOMI (does not follow commands) NECK: JVD elevated, no thyromegaly Lymph: no lymphadenopathy HEART: regular with no S3, II/ systolic murmur at apex,pacer in place LUNGS: Coarse sounds ABD: soft, NT, ND, +BS : Intact Neuro: non focal SKIN: chronic changes EXT: trace edema Results Result Diagram: 08/15/16 0524 08/15/16 0524 Results 24 hrs Laboratory Tests Test 08/14/16 17:19 08/14/16 20:48 08/15/16 05:24 08/15/16 07:59 Bedside Glucose 119 125 95 Anion Gap 13 Basophils # 0.0 Basophils % 0.0 Blood Urea Nitrogen 27 #H Calcium Level 7.9 L Carbon Dioxide Level 31 Chloride Level 99 Creatinine 0.87 Eosinophils # 0.1 Eosinophils % 1.5 Glucose Level 92 Hematocrit 32.2 L Hemoglobin 9.6 L Lymphocytes # 0.5 L Lymphocytes % 9.7 L Magnesium Level 2.2 Mean Corpuscular Hemoglobin 24.9 L Mean Corpuscular Hemoglobin Concent 29.8 L Mean Corpuscular Volume 83.4 Mean Platelet Volume 11.0 H Monocytes # 0.2 L Monocytes % 4.7 Neutrophils # 4.0 Neutrophils % 83.7 H Nucleated Red Blood Cells # 0.0 Nucleated Red Blood Cells % 0.0 Phosphorus Level 3.2 Platelet Count 222 Potassium Level 3.7 Red Blood Count 3.86 L Red Cell Distribution Width 22.1 H Sodium Level 139 White Blood Count 4.7 L Test 08/15/16 12:08 Bedside Glucose 143 Medications Medications Current Medications Aspirin (Halfprin) 81 mg DAILY PO Last administered on 08/05/16 09:06; Admin Dose 81 MG; Start 07/19/16 at 09:00; Status Future Hold Nitroglycerin (Nitroglycerin (Sl Tab) 0.4 Mg) 1 tab DAILY PRN SL CHEST PAIN; Start 07/18/16 at 15:30 Ondansetron HCl (Zofran Inj) 4 mg Q6H PRN IV NAUSEA AND/OR VOMITING Last administered on 08/05/16 23:48; Admin Dose 4 MG; Start 07/18/16 at 15:30 Acetaminophen (Tylenol Tab) 650 mg Q6H PRN PO PAIN LEVEL 1-3 OR FEVER Last administered on 08/12/16 20:48; Admin Dose 650 MG; Start 07/18/16 at 15:30 Acetaminophen (Tylenol Supp) 650 mg Q6H PRN [place] PAIN LEVEL 1-3 OR FEVER; Start 07/18/16 at 15:30 Docusate Sodium (Colace) 100 mg Q12H PRN PO CONSTIPATION Last administered on 20:19; Admin Dose 100 MG; Start 07/18/16 at 15:30 Magnesium Hydroxide (Milk Of Mag) 30 ml DAILY PRN PO CONSTIPATION Last administered on 07/28/16 23:03; Admin Dose 30 ML; Start 07/18/16 at 15:30 Bisacodyl (Dulcolax Supp) 10 mg DAILY PRN [place] CONSTIPATION Last administered on 08/15/16 01:50; Admin Dose 10 MG; Start 07/18/16 at 15:30 Miscellaneous Information 1 ea NOTE XX ; Start 07/18/16 at 17:30 Glucose (Glutose) 15 gm Q15M PRN PO DECREASED GLUCOSE; Start 07/18/16 at 17:30 Glucose (Glutose) 22.5 gm Q15M PRN PO DECREASED GLUCOSE; Start 07/18/16 at 17: 30 Dextrose (D50w Syringe) 25 ml Q15M PRN IV DECREASED GLUCOSE; Start 07/18/16 at 17:30 Dextrose (D50w Syringe) 50 ml Q15M PRN IV DECREASED GLUCOSE; Start 07/18/16 at 17:30 Glucagon (Glucagen) 1 mg Q15M PRN IM DECREASED GLUCOSE; Start 07/18/16 at 17:30 Glucose (Glutose) 15 gm Q15M PRN BUCCAL DECREASED GLUCOSE; Start 07/18/16 at 17 :30 Guaifenesin/ Codeine Phosphate (Robitussin Ac Liquid Cup) 10 ml Q4H PRN PO COUGH Last administered on 07/19/16 19:43; Admin Dose 10 ML; Start 07/18/16 at 23:30 Carvedilol (Coreg) 3.125 mg BID PO Last administered on 08/03/16 20:05; Admin Dose 3.125 MG; Start 07/24/16 at 09:00; Status Future Hold Isosorbide Dinitrate 10 mg 10 mg TID PO Last administered on 08/03/16 19:58; Admin Dose 10 MG; Start 07/30/16 at 21:00; Status Future Hold Sodium Chloride (1/2 NS) 1,000 ml @ 20 mls/hr Q24H IV Last administered on 01:50; Admin Dose 20 MLS/HR; Start 08/08/16 at 07:00 Pantoprazole (Protonix Iv) 40 mg DAILY@06 IV Last administered on 08/15/16 05: 30; Admin Dose 40 MG; Start 08/10/16 at 06:00 Sucralfate (Carafate) 1 gm QID NGT Last administered on 08/15/16 12:11; Admin Dose 1 GM; Start 08/09/16 at 21:00 Apixaban (Eliquis) 2.5 mg BID PO Last administered on 08/15/16 09:17; Admin Dose 2.5 MG; Start 08/10/16 at 21:00 IV Flush (NS 10 ml) 10 ml PRN PRN IV IV PROTOCOL; Start 08/11/16 at 17:00 Hydralazine HCl (Apresoline) 10 mg Q8 PO Last administered on 08/15/16 05:30; Admin Dose 10 MG; Start 08/13/16 at 14:00 Amiodarone HCl (Cordarone) 200 mg BID NGT Last administered on 08/14/16 13:55 ; Admin Dose 200 MG; Start 08/13/16 at 21:00; Status Future Hold Promethazine HCl/ Dextromethorphan (Phenergan-Dm) 5 ml Q4H PRN PO COUGH; Start 08/14/16 at 16:30 Diagnostic Test (Pha) (Accucheck) 1 ea 02 XX ; Start 08/15/16 at 02:00 Miscellaneous Information 1 ea NOTE XX ; Start 08/14/16 at 20:00 Glucose (Glutose) 15 gm Q15M PRN PO DECREASED GLUCOSE; Start 08/14/16 at 20:00 Glucose (Glutose) 22.5 gm Q15M PRN PO DECREASED GLUCOSE; Start 08/14/16 at 20: 00 Dextrose (D50w Syringe) 25 ml Q15M PRN IV DECREASED GLUCOSE; Start 08/14/16 at 20:00 Dextrose (D50w Syringe) 50 ml Q15M PRN IV DECREASED GLUCOSE; Start 08/14/16 at 20:00 Glucagon (Glucagen) 1 mg Q15M PRN IM DECREASED GLUCOSE; Start 08/14/16 at 20:00 Glucose (Glutose) 15 gm Q15M PRN BUCCAL DECREASED GLUCOSE; Start 08/14/16 at 20 :00 DODIE OLMSTEAD MD Aug 15, 2016 13:18
--- NOTE | 2016-08-15 13:40 | PN ---
DATE: 08/15/2016 PULMONARY FOLLOWUP NOTE SUBJECTIVE: The patient is stable this morning. No evidence of respiratory distress. PHYSICAL EXAMINATION: VITAL SIGNS: Temperature 98, pulse is 100, blood pressure 108/61, O2 saturation 98% on 2 L nasal ca nnula. NECK: Supple. No JVD or lymphadenopathy. CARDIAC EXAM: S1, S2. No added sounds or murmurs. CHEST: Diminished air entry at both lung bases. ABDOMEN: Soft, nontender. No guarding or rebound. EXTREMITIES: No cyanosis, clubbing or edema. NEUROLOGIC: Generalized weakness. LABORATORY: White count 4.7, hemoglobin 9.6, platelets 222. BUN 27, creatinine 0.87. INR 1.49. Chest x-ray was reviewed, shows improved bibasilar atelectasis. IMPRESSION: 1. Status post congestive cardiac failure. 2. Status post hypoxemic respiratory failure. 3. Renal insufficiency. 4. History of coronary artery disease. PLAN: 1. Continue supplemental O2. 2. Aspiration precautions. 3. Cardiac recommendations for blood pressure management. 4. Hemodialysis, with volume removal as tolerated. Dictated By: HERMAN GARCIA/SHAHANA Conf#: [id number] DID#: [id number]
--- NOTE | 2016-08-15 18:05 | PN ---
Date/Time of Note Date/Time of Note DATE: 08/15/16 TIME: 18:04 Assessment/Plan VTE Prophylaxis VTE Prophylaxis Intervention: other Assessment/Plan Chief Complaint/Hosp Course 1. Acute Resp failure secondary to pulmonary edema and possible aspiration pneumonia-now extubated Status post Zosyn and vancomycin Pulmonology on case 2. Acute on chronic congestive heart failure Continue dialysis for volume overload, continue Lasix IV 3. 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 Type 2 diabetes-stable Insulin sliding scale 5. Atrial fibrillation, rate controlled 6. History of CAD status post CABG 7. Acute on likely chronic kidney disease 2/2 cardiorenal syndrome Continue hemodialysis 8. Acute encephalopathy secondary to uremic syndrome now improved with dialysis According to the family patient's mentation is back to baseline Speech therapy bedside swallow eval done patient is tolerating a p.o. diet 9. Debility secondary to comorbidities Continue PT, patient cannot ambulate need to go to a rehab center, insurance case manager aware 10. Cough possibly secondary to pulmonary edema with rapid removal of volume from the lung Phenergan as needed PPx- on Eliquis Problems: Subjective 24 Hr Interval Summary Constitutional: no complaints Exam/Review of Systems Vital Signs Vitals Vital Signs Date Time Temp Pulse Resp B/P Pulse Ox O2 Delivery O2 Flow Rate FiO2 08/15/16 17:07 2.0 08/15/16 16:09 63 08/15/16 15:31 97.9 18 109/53 100 08/15/16 08:00 Nasal Cannula 08/11/16 16:00 30 Intake and Output 08/14/16 08/14/16 08/15/16 15:00 23:00 07:00 Intake Total 300 ml 1069.09 ml 540 ml Output Total 2300 ml 500 ml 300 ml Balance -2000 ml 569.09 ml 240 ml Exam Constitutional: alert, oriented Respiratory: clear to auscultation Cardiovascular: regular rate and rhythm Gastrointestinal: soft, No distended Musculoskeletal: nl extremities to inspection Results Result Diagram: 08/15/16 0524 08/15/16 0524 Results 24 hrs Laboratory Tests Test 08/14/16 20:48 08/15/16 05:24 08/15/16 07:59 08/15/16 12:08 Bedside Glucose 125 95 143 Anion Gap 13 Basophils # 0.0 Basophils % 0.0 Blood Urea Nitrogen 27 #H Calcium Level 7.9 L Carbon Dioxide Level 31 Chloride Level 99 Creatinine 0.87 Eosinophils # 0.1 Eosinophils % 1.5 Glucose Level 92 Hematocrit 32.2 L Hemoglobin 9.6 L Lymphocytes # 0.5 L Lymphocytes % 9.7 L Magnesium Level 2.2 Mean Corpuscular Hemoglobin 24.9 L Mean Corpuscular Hemoglobin Concent 29.8 L Mean Corpuscular Volume 83.4 Mean Platelet Volume 11.0 H Monocytes # 0.2 L Monocytes % 4.7 Neutrophils # 4.0 Neutrophils % 83.7 H Nucleated Red Blood Cells # 0.0 Nucleated Red Blood Cells % 0.0 Phosphorus Level 3.2 Platelet Count 222 Potassium Level 3.7 Red Blood Count 3.86 L Red Cell Distribution Width 22.1 H Sodium Level 139 White Blood Count 4.7 L Test 08/15/16 17:34 Bedside Glucose 87 Medications Medications Current Medications Aspirin (Halfprin) 81 mg DAILY PO Last administered on 08/05/16 09:06; Admin Dose 81 MG; Start 07/19/16 at 09:00; Status Future Hold Nitroglycerin (Nitroglycerin (Sl Tab) 0.4 Mg) 1 tab DAILY PRN SL CHEST PAIN; Start 07/18/16 at 15:30 Ondansetron HCl (Zofran Inj) 4 mg Q6H PRN IV NAUSEA AND/OR VOMITING Last administered on 08/05/16 23:48; Admin Dose 4 MG; Start 07/18/16 at 15:30 Acetaminophen (Tylenol Tab) 650 mg Q6H PRN PO PAIN LEVEL 1-3 OR FEVER Last administered on 08/12/16 20:48; Admin Dose 650 MG; Start 07/18/16 at 15:30 Acetaminophen (Tylenol Supp) 650 mg Q6H PRN [place] PAIN LEVEL 1-3 OR FEVER; Start 07/18/16 at 15:30 Docusate Sodium (Colace) 100 mg Q12H PRN PO CONSTIPATION Last administered on 20:19; Admin Dose 100 MG; Start 07/18/16 at 15:30 Magnesium Hydroxide (Milk Of Mag) 30 ml DAILY PRN PO CONSTIPATION Last administered on 07/28/16 23:03; Admin Dose 30 ML; Start 07/18/16 at 15:30 Bisacodyl (Dulcolax Supp) 10 mg DAILY PRN [place] CONSTIPATION Last administered on 08/15/16 01:50; Admin Dose 10 MG; Start 07/18/16 at 15:30 Miscellaneous Information 1 ea NOTE XX ; Start 07/18/16 at 17:30 Glucose (Glutose) 15 gm Q15M PRN PO DECREASED GLUCOSE; Start 07/18/16 at 17:30 Glucose (Glutose) 22.5 gm Q15M PRN PO DECREASED GLUCOSE; Start 07/18/16 at 17: 30 Dextrose (D50w Syringe) 25 ml Q15M PRN IV DECREASED GLUCOSE; Start 07/18/16 at 17:30 Dextrose (D50w Syringe) 50 ml Q15M PRN IV DECREASED GLUCOSE; Start 07/18/16 at 17:30 Glucagon (Glucagen) 1 mg Q15M PRN IM DECREASED GLUCOSE; Start 07/18/16 at 17:30 Glucose (Glutose) 15 gm Q15M PRN BUCCAL DECREASED GLUCOSE; Start 07/18/16 at 17 :30 Guaifenesin/ Codeine Phosphate (Robitussin Ac Liquid Cup) 10 ml Q4H PRN PO COUGH Last administered on 07/19/16 19:43; Admin Dose 10 ML; Start 07/18/16 at 23:30 Carvedilol (Coreg) 3.125 mg BID PO Last administered on 08/03/16 20:05; Admin Dose 3.125 MG; Start 07/24/16 at 09:00; Status Future Hold Isosorbide Dinitrate 10 mg 10 mg TID PO Last administered on 08/03/16 19:58; Admin Dose 10 MG; Start 07/30/16 at 21:00; Status Future Hold Sodium Chloride (1/2 NS) 1,000 ml @ 20 mls/hr Q24H IV Last administered on 01:50; Admin Dose 20 MLS/HR; Start 08/08/16 at 07:00 Pantoprazole (Protonix Iv) 40 mg DAILY@06 IV Last administered on 08/15/16 05: 30; Admin Dose 40 MG; Start 08/10/16 at 06:00 Sucralfate (Carafate) 1 gm QID NGT Last administered on 08/15/16 17:37; Admin Dose 1 GM; Start 08/09/16 at 21:00 Apixaban (Eliquis) 2.5 mg BID PO Last administered on 08/15/16 09:17; Admin Dose 2.5 MG; Start 08/10/16 at 21:00 IV Flush (NS 10 ml) 10 ml PRN PRN IV IV PROTOCOL; Start 08/11/16 at 17:00 Hydralazine HCl (Apresoline) 10 mg Q8 PO Last administered on 08/15/16 13:35; Admin Dose 10 MG; Start 08/13/16 at 14:00 Amiodarone HCl (Cordarone) 200 mg BID NGT Last administered on 08/14/16 13:55 ; Admin Dose 200 MG; Start 08/13/16 at 21:00; Status Future Hold Promethazine HCl/ Dextromethorphan (Phenergan-Dm) 5 ml Q4H PRN PO COUGH; Start 08/14/16 at 16:30 Diagnostic Test (Pha) (Accucheck) 1 ea 02 XX ; Start 08/15/16 at 02:00 Miscellaneous Information 1 ea NOTE XX ; Start 08/14/16 at 20:00 Glucose (Glutose) 15 gm Q15M PRN PO DECREASED GLUCOSE; Start 08/14/16 at 20:00 Glucose (Glutose) 22.5 gm Q15M PRN PO DECREASED GLUCOSE; Start 08/14/16 at 20: 00 Dextrose (D50w Syringe) 25 ml Q15M PRN IV DECREASED GLUCOSE; Start 08/14/16 at 20:00 Dextrose (D50w Syringe) 50 ml Q15M PRN IV DECREASED GLUCOSE; Start 08/14/16 at 20:00 Glucagon (Glucagen) 1 mg Q15M PRN IM DECREASED GLUCOSE; Start 08/14/16 at 20:00 Glucose (Glutose) 15 gm Q15M PRN BUCCAL DECREASED GLUCOSE; Start 08/14/16 at 20 :00 MURIEL EWING Aug 15, 2016 18:05
[2016-08-16] VITALS (26 sets, daily range): BP systolic 92–123; BP diastolic 44–69; PULSE 59–69; RESP 16–20
[2016-08-16] MEDS: ACCU-CHEK XX SCH (02:00)
[2016-08-16] MEDS: FUROSEMIDE 40 MG INJ IV SCH ×2 (05:19→17:48)
[2016-08-16] MEDS: PANTOPRAZOLE 40 MG INJ IV SCH (05:19)
[2016-08-16] MEDS: ACETAMINOPHEN 325 MG TAB PO PRN ×3 (05:32→21:03)
[2016-08-16 05:55] LABS: ADD SCAN DIFF NO
[2016-08-16 06:01] LABS: ABNORMAL IP MESSAGE 1; BASOPHILS % 0.2 % (0.0-2.0); EOSINOPHILS # 0.1 10^3/ul (0.0-0.5); EOSINOPHILS % 2.5 % (0.0-7.0); HEMATOCRIT 32.2 % (42.0-52.0); HEMOGLOBIN 9.7 g/dl (14.0-18.0); LYMPHOCYTES # 0.5 10^3/ul (0.8-2.9); LYMPHOCYTES % 10.9 % (15.0-51.0); MEAN CORPUSCULAR HEMOGLOBIN 25.3 pg (29.0-33.0); MEAN CORPUSCULAR HGB CONC 30.1 g/dl (32.0-37.0); MEAN CORPUSCULAR VOLUME 83.9 fl (82.0-101.0); MEAN PLATELET VOLUME 11.2 fl (7.4-10.4); MONOCYTE # 0.3 10^3/ul (0.3-0.9); MONOCYTES % 5.9 % (0.0-11.0); NEUTROPHIL # 3.5 10^3/ul (1.6-7.5); NEUTROPHILS % 80.3 % (39.0-77.0); PLATELET COUNT 296 10^3/UL (140-415); RED BLOOD COUNT 3.84 10^6/ul (4.70-6.10); RED CELL DISTRIBUTION WIDTH 22.4 % (11.5-14.5); WHITE BLOOD COUNT 4.4 10^3/ul (4.8-10.8)
[2016-08-16 06:23] LABS: POTASSIUM 3.2 mmol/L (3.5-5.1)
[2016-08-16 06:25] LABS: CREATININE 0.98 mg/dl (0.61-1.24)
[2016-08-16 06:26] LABS: CALCIUM 7.9 mg/dl (8.4-10.2)
[2016-08-16] MEDS: SOD CHLORIDE 0.45% 1,000 ML IV SCH (07:40)
[2016-08-16] MEDS: INSULIN ASPART [NOVOLOG] 3 ML PEN SC SCH ×4 (07:55→21:00)
[2016-08-16] MEDS: APIXABAN 5 MG TABLET PO SCH ×2 (08:43→21:03)
[2016-08-16] MEDS: SUCRALFATE 1 GM TAB NGT SCH ×4 (08:43→21:03)
[2016-08-16] MEDS ORDERED: POTASSIUM CHLORIDE 250 ML IVPB ONE (09:00)
--- NOTE | 2016-08-16 13:34 | PN ---
Date/Time of Note Date/Time of Note DATE: 08/16/16 TIME: 13:32 Assessment/Plan VTE Prophylaxis VTE Prophylaxis Intervention: other Assessment/Plan Chief Complaint/Hosp Course 1. Acute Resp failure secondary to pulmonary edema and possible aspiration pneumonia-now extubated Status post Zosyn and vancomycin Pulmonology on case 2. Acute on chronic congestive heart failure Continue dialysis for volume overload, continue Lasix IV 3. 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 Type 2 diabetes-stable Insulin sliding scale 5. Atrial fibrillation, rate controlled 6. History of CAD status post CABG 7. Acute on likely chronic kidney disease 2/2 cardiorenal syndrome Continue hemodialysis 8. Acute encephalopathy secondary to uremic syndrome now improved with dialysis According to the family patient's mentation is back to baseline Speech therapy bedside swallow eval done patient is tolerating a p.o. diet 9. Debility secondary to comorbidities Continue PT, patient cannot ambulate need to go to a rehab center, ed case manager aware 10. Cough possibly secondary to pulmonary edema with rapid removal of volume from the lung-Improved Phenergan as needed PPx- on Eliquis Problems: Subjective 24 Hr Interval Summary Constitutional: no complaints Exam/Review of Systems Vital Signs Vitals Vital Signs Date Time Temp Pulse Resp B/P Pulse Ox O2 Delivery O2 Flow Rate FiO2 08/16/16 13:14 67 08/16/16 12:30 16 08/16/16 11:52 98.3 115/56 100 08/16/16 08:15 Nasal Cannula 2.0 Intake and Output 08/15/16 08/15/16 08/16/16 15:00 23:00 07:00 Intake Total 740 ml 220 ml Output Total 200 ml 950 ml Balance 540 ml -730 ml Exam Constitutional: alert Respiratory: clear to auscultation Cardiovascular: regular rate and rhythm Gastrointestinal: soft, No distended Musculoskeletal: nl extremities to inspection Results Result Diagram: 08/16/16 0514 08/16/16 0514 Results 24 hrs Laboratory Tests Test 08/15/16 17:34 08/15/16 22:01 08/16/16 05:14 08/16/16 08:15 Bedside Glucose 87 111 101 Anion Gap 11 Basophils # 0.0 Basophils % 0.2 Blood Urea Nitrogen 28 H Calcium Level 7.9 L Carbon Dioxide Level 33 H Chloride Level 96 L Creatinine 0.98 Eosinophils # 0.1 Eosinophils % 2.5 Glucose Level 89 Hematocrit 32.2 L Hemoglobin 9.7 L Lymphocytes # 0.5 L Lymphocytes % 10.9 L Mean Corpuscular Hemoglobin 25.3 L Mean Corpuscular Hemoglobin Concent 30.1 L Mean Corpuscular Volume 83.9 Mean Platelet Volume 11.2 H Monocytes # 0.3 Monocytes % 5.9 Neutrophils # 3.5 Neutrophils % 80.3 H Nucleated Red Blood Cells # 0.0 Nucleated Red Blood Cells % 0.0 Platelet Count 296 # Potassium Level 3.2 L Red Blood Count 3.84 L Red Cell Distribution Width 22.4 H Sodium Level 137 White Blood Count 4.4 L Test 08/16/16 12:04 Bedside Glucose 116 Medications Medications Current Medications Aspirin (Halfprin) 81 mg DAILY PO Last administered on 08/05/16 09:06; Admin Dose 81 MG; Start 07/19/16 at 09:00; Status Future Hold Nitroglycerin (Nitroglycerin (Sl Tab) 0.4 Mg) 1 tab DAILY PRN SL CHEST PAIN; Start 07/18/16 at 15:30 Ondansetron HCl (Zofran Inj) 4 mg Q6H PRN IV NAUSEA AND/OR VOMITING Last administered on 08/05/16 23:48; Admin Dose 4 MG; Start 07/18/16 at 15:30 Acetaminophen (Tylenol Tab) 650 mg Q6H PRN PO PAIN LEVEL 1-3 OR FEVER Last administered on 08/16/16 12:21; Admin Dose 650 MG; Start 07/18/16 at 15:30 Acetaminophen (Tylenol Supp) 650 mg Q6H PRN [place] PAIN LEVEL 1-3 OR FEVER; Start 07/18/16 at 15:30 Docusate Sodium (Colace) 100 mg Q12H PRN PO CONSTIPATION Last administered on 20:19; Admin Dose 100 MG; Start 07/18/16 at 15:30 Magnesium Hydroxide (Milk Of Mag) 30 ml DAILY PRN PO CONSTIPATION Last administered on 07/28/16 23:03; Admin Dose 30 ML; Start 07/18/16 at 15:30 Bisacodyl (Dulcolax Supp) 10 mg DAILY PRN [place] CONSTIPATION Last administered on 08/15/16 01:50; Admin Dose 10 MG; Start 07/18/16 at 15:30 Miscellaneous Information 1 ea NOTE XX ; Start 07/18/16 at 17:30 Glucose (Glutose) 15 gm Q15M PRN PO DECREASED GLUCOSE; Start 07/18/16 at 17:30 Glucose (Glutose) 22.5 gm Q15M PRN PO DECREASED GLUCOSE; Start 07/18/16 at 17: 30 Dextrose (D50w Syringe) 25 ml Q15M PRN IV DECREASED GLUCOSE; Start 07/18/16 at 17:30 Dextrose (D50w Syringe) 50 ml Q15M PRN IV DECREASED GLUCOSE; Start 07/18/16 at 17:30 Glucagon (Glucagen) 1 mg Q15M PRN IM DECREASED GLUCOSE; Start 07/18/16 at 17:30 Glucose (Glutose) 15 gm Q15M PRN BUCCAL DECREASED GLUCOSE; Start 07/18/16 at 17 :30 Guaifenesin/ Codeine Phosphate (Robitussin Ac Liquid Cup) 10 ml Q4H PRN PO COUGH Last administered on 07/19/16 19:43; Admin Dose 10 ML; Start 07/18/16 at 23:30 Carvedilol (Coreg) 3.125 mg BID PO Last administered on 08/03/16 20:05; Admin Dose 3.125 MG; Start 07/24/16 at 09:00; Status Future Hold Isosorbide Dinitrate 10 mg 10 mg TID PO Last administered on 08/03/16 19:58; Admin Dose 10 MG; Start 07/30/16 at 21:00; Status Future Hold Sodium Chloride (1/2 NS) 1,000 ml @ 20 mls/hr Q24H IV Last administered on 01:50; Admin Dose 20 MLS/HR; Start 08/08/16 at 07:00 Pantoprazole (Protonix Iv) 40 mg DAILY@06 IV Last administered on 08/16/16 05: 19; Admin Dose 40 MG; Start 08/10/16 at 06:00 Sucralfate (Carafate) 1 gm QID NGT Last administered on 08/16/16 12:07; Admin Dose 1 GM; Start 08/09/16 at 21:00 Apixaban (Eliquis) 2.5 mg BID PO Last administered on 08/16/16 08:43; Admin Dose 2.5 MG; Start 08/10/16 at 21:00 IV Flush (NS 10 ml) 10 ml PRN PRN IV IV PROTOCOL; Start 08/11/16 at 17:00 Hydralazine HCl (Apresoline) 10 mg Q8 PO Last administered on 08/15/16 13:35; Admin Dose 10 MG; Start 08/13/16 at 14:00 Amiodarone HCl (Cordarone) 200 mg BID NGT Last administered on 08/14/16 13:55 ; Admin Dose 200 MG; Start 08/13/16 at 21:00; Status Future Hold Promethazine HCl/ Dextromethorphan (Phenergan-Dm) 5 ml Q4H PRN PO COUGH; Start 08/14/16 at 16:30 Diagnostic Test (Pha) (Accucheck) 1 ea 02 XX ; Start 08/15/16 at 02:00 Miscellaneous Information 1 ea NOTE XX ; Start 08/14/16 at 20:00 Glucose (Glutose) 15 gm Q15M PRN PO DECREASED GLUCOSE; Start 08/14/16 at 20:00 Glucose (Glutose) 22.5 gm Q15M PRN PO DECREASED GLUCOSE; Start 08/14/16 at 20: 00 Dextrose (D50w Syringe) 25 ml Q15M PRN IV DECREASED GLUCOSE; Start 08/14/16 at 20:00 Dextrose (D50w Syringe) 50 ml Q15M PRN IV DECREASED GLUCOSE; Start 08/14/16 at 20:00 Glucagon (Glucagen) 1 mg Q15M PRN IM DECREASED GLUCOSE; Start 08/14/16 at 20:00 Glucose (Glutose) 15 gm Q15M PRN BUCCAL DECREASED GLUCOSE; Start 08/14/16 at 20 :00 MURIEL EWING Aug 16, 2016 13:33
--- NOTE | 2016-08-16 14:59 | CONS ---
Date/Time of Note Date/Time of Note DATE: 08/16/16 TIME: 14:55 Assessment/Plan Assessment/Plan Chief Complaint/Hosp Course 1. Patient has acute on chronic renal failure with acute kidney injury due to systolic heart failure. on dialysis better 2. The patient has low ef now s/p vent/cardio renal syndrome s/p extubation 3. Anemia. 4. ASHD 5. Acute urinary tract infection.better 6 LOW EF 7 hyperkalemia HX 8 afib 9 hematuria HX plan will hold hd for now and observe ,ck bmp if renal fn gets worse will need permacath kcl po Problems: Consultation Date/Type/Reason Admit Date/Time Jul 18, 2016 at 14:06 Type of Consultation: renal Referring Provider: MURIEL EWING 24 HR Interval Summary Constitutional: other (sob better,making urine on hd,will hold hd for few days and f/u bmp if gets worse will need permacath) Exam/Review of Systems Vital Signs Vitals Vital Signs Date Time Temp Pulse Resp B/P Pulse Ox O2 Delivery O2 Flow Rate FiO2 08/16/16 14:44 62 08/16/16 12:30 16 08/16/16 11:52 98.3 115/56 100 08/16/16 08:15 Nasal Cannula 2.0 Intake and Output 08/15/16 08/15/16 08/16/16 15:00 23:00 07:00 Intake Total 740 ml 220 ml Output Total 200 ml 950 ml Balance 540 ml -730 ml Exam Respiratory: clear to auscultation Cardiovascular: regular rate and rhythm Gastrointestinal: bowel sounds (+), soft Extremities: edema (+) Results Result Diagram: 08/16/16 0514 08/16/16 0514 Results 24 hrs Laboratory Tests Test 08/15/16 17:34 08/15/16 22:01 08/16/16 05:14 08/16/16 08:15 Bedside Glucose 87 111 101 Anion Gap 11 Basophils # 0.0 Basophils % 0.2 Blood Urea Nitrogen 28 H Calcium Level 7.9 L Carbon Dioxide Level 33 H Chloride Level 96 L Creatinine 0.98 Eosinophils # 0.1 Eosinophils % 2.5 Glucose Level 89 Hematocrit 32.2 L Hemoglobin 9.7 L Lymphocytes # 0.5 L Lymphocytes % 10.9 L Mean Corpuscular Hemoglobin 25.3 L Mean Corpuscular Hemoglobin Concent 30.1 L Mean Corpuscular Volume 83.9 Mean Platelet Volume 11.2 H Monocytes # 0.3 Monocytes % 5.9 Neutrophils # 3.5 Neutrophils % 80.3 H Nucleated Red Blood Cells # 0.0 Nucleated Red Blood Cells % 0.0 Platelet Count 296 # Potassium Level 3.2 L Red Blood Count 3.84 L Red Cell Distribution Width 22.4 H Sodium Level 137 White Blood Count 4.4 L Test 08/16/16 12:04 Bedside Glucose 116 Medications Medications Current Medications Aspirin (Halfprin) 81 mg DAILY PO Last administered on 08/05/16 09:06; Admin Dose 81 MG; Start 07/19/16 at 09:00; Status Future Hold Nitroglycerin (Nitroglycerin (Sl Tab) 0.4 Mg) 1 tab DAILY PRN SL CHEST PAIN; Start 07/18/16 at 15:30 Ondansetron HCl (Zofran Inj) 4 mg Q6H PRN IV NAUSEA AND/OR VOMITING Last administered on 08/05/16 23:48; Admin Dose 4 MG; Start 07/18/16 at 15:30 Acetaminophen (Tylenol Tab) 650 mg Q6H PRN PO PAIN LEVEL 1-3 OR FEVER Last administered on 08/16/16 12:21; Admin Dose 650 MG; Start 07/18/16 at 15:30 Acetaminophen (Tylenol Supp) 650 mg Q6H PRN [place] PAIN LEVEL 1-3 OR FEVER; Start 07/18/16 at 15:30 Docusate Sodium (Colace) 100 mg Q12H PRN PO CONSTIPATION Last administered on 20:19; Admin Dose 100 MG; Start 07/18/16 at 15:30 Magnesium Hydroxide (Milk Of Mag) 30 ml DAILY PRN PO CONSTIPATION Last administered on 07/28/16 23:03; Admin Dose 30 ML; Start 07/18/16 at 15:30 Bisacodyl (Dulcolax Supp) 10 mg DAILY PRN [place] CONSTIPATION Last administered on 08/15/16 01:50; Admin Dose 10 MG; Start 07/18/16 at 15:30 Miscellaneous Information 1 ea NOTE XX ; Start 07/18/16 at 17:30 Glucose (Glutose) 15 gm Q15M PRN PO DECREASED GLUCOSE; Start 07/18/16 at 17:30 Glucose (Glutose) 22.5 gm Q15M PRN PO DECREASED GLUCOSE; Start 07/18/16 at 17: 30 Dextrose (D50w Syringe) 25 ml Q15M PRN IV DECREASED GLUCOSE; Start 07/18/16 at 17:30 Dextrose (D50w Syringe) 50 ml Q15M PRN IV DECREASED GLUCOSE; Start 07/18/16 at 17:30 Glucagon (Glucagen) 1 mg Q15M PRN IM DECREASED GLUCOSE; Start 07/18/16 at 17:30 Glucose (Glutose) 15 gm Q15M PRN BUCCAL DECREASED GLUCOSE; Start 07/18/16 at 17 :30 Guaifenesin/ Codeine Phosphate (Robitussin Ac Liquid Cup) 10 ml Q4H PRN PO COUGH Last administered on 07/19/16 19:43; Admin Dose 10 ML; Start 07/18/16 at 23:30 Carvedilol (Coreg) 3.125 mg BID PO Last administered on 08/03/16 20:05; Admin Dose 3.125 MG; Start 07/24/16 at 09:00; Status Future Hold Isosorbide Dinitrate 10 mg 10 mg TID PO Last administered on 08/03/16 19:58; Admin Dose 10 MG; Start 07/30/16 at 21:00; Status Future Hold Sodium Chloride (1/2 NS) 1,000 ml @ 20 mls/hr Q24H IV Last administered on 01:50; Admin Dose 20 MLS/HR; Start 08/08/16 at 07:00 Pantoprazole (Protonix Iv) 40 mg DAILY@06 IV Last administered on 08/16/16 05: 19; Admin Dose 40 MG; Start 08/10/16 at 06:00 Sucralfate (Carafate) 1 gm QID NGT Last administered on 08/16/16 12:07; Admin Dose 1 GM; Start 08/09/16 at 21:00 Apixaban (Eliquis) 2.5 mg BID PO Last administered on 08/16/16 08:43; Admin Dose 2.5 MG; Start 08/10/16 at 21:00 IV Flush (NS 10 ml) 10 ml PRN PRN IV IV PROTOCOL; Start 08/11/16 at 17:00 Hydralazine HCl (Apresoline) 10 mg Q8 PO Last administered on 08/15/16t 13:35; Admin Dose 10 MG; Start 08/13/16 at 14:00 Amiodarone HCl (Cordarone) 200 mg BID NGT Last administered on 08/14/16 13:55 ; Admin Dose 200 MG; Start 08/13/16 at 21:00; Status Future Hold Promethazine HCl/ Dextromethorphan (Phenergan-Dm) 5 ml Q4H PRN PO COUGH; Start 08/14/16 at 16:30 Diagnostic Test (Pha) (Accucheck) 1 ea 02 XX ; Start 08/15/16 at 02:00 Miscellaneous Information 1 ea NOTE XX ; Start 08/14/16 at 20:00 Glucose (Glutose) 15 gm Q15M PRN PO DECREASED GLUCOSE; Start 08/14/16 at 20:00 Glucose (Glutose) 22.5 gm Q15M PRN PO DECREASED GLUCOSE; Start 08/14/16 at 20: 00 Dextrose (D50w Syringe) 25 ml Q15M PRN IV DECREASED GLUCOSE; Start 08/14/16 at 20:00 Dextrose (D50w Syringe) 50 ml Q15M PRN IV DECREASED GLUCOSE; Start 08/14/16 at 20:00 Glucagon (Glucagen) 1 mg Q15M PRN IM DECREASED GLUCOSE; Start 08/14/16 at 20:00 Glucose (Glutose) 15 gm Q15M PRN BUCCAL DECREASED GLUCOSE; Start 08/14/16 at 20 :00 YANIRA HART MD Aug 16, 2016 14:59
--- NOTE | 2016-08-16 17:14 | PN ---
DATE: 08/16/2016 HISTORY OF PRESENT ILLNESS: The Patient Ledesma is stable this morning. VITAL SIGNS: Temperature 98, pulse 62, blood pressure 115/56, O2 saturation 96% on 2 liters. NECK: Supple. No JVD or lymphadenopathy. CARDIAC: S1, S2, no added sounds or murmurs. CHEST: Diminished air entry bilaterally. ABDOMEN: Soft, nontender. No guarding or rebound. EXTREMITIES: No cyanosis, clubbing, edema. NEUROLOGIC: Generalized weakness. LABORATORY DATA: White count 4.4, hemoglobin 9.7, platelets 296. BUN 28, creatinine 0.98. IMPRESSION: 1. Status post hypoxemic respiratory failure. 2. Congestive cardiac failure. 3. History of renal insufficiency. 4. History of coronary artery disease. PLAN: 1. Continue supplemental O2. 2. Aspiration precautions. 3. Hemodialysis as tolerated. 4. Physical therapy evaluation. 5. Consider transfer to [facility] facility if family agreeable. Dictated By: HERMAN GARCIA/SHAHANA Conf#: [id number] DID#: [id number]
--- NOTE | 2016-08-16 17:45 | CONS ---
Date/Time of Note Date/Time of Note DATE: 08/16/16 TIME: 17:43 Assessment/Plan Assessment/Plan Additional Assessment/Plan 1. Congestive heart failure exacerbation, systolic, acute on chronic. EF 25% by most recent echo-worsening. Minimally + troponin after cardiac arrest - will monitor clinically for now. STABLE OVERALL - con't MED rx. 2. Resp failure s/p intubation - pulmonary team follows. 3. Hypotension/shock- BP improved now 3. History of coronary artery bypass graft surgery. NO CP- no intervention planned now. 4. Abnormal electrocardiogram . MIldly postive trop after cardiac arrest 5. History of paroxysmal atrial fibrillation-on apixaban - in a . fib/paced. 6. Acute on chronic renal failure-Now on HD 8. Anemia, mild. 9. Coagulopathy secondary to apixaban- improving 10.Hematuria Consultation Date/Type/Reason Admit Date/Time Jul 18, 2016 at 14:06 Type of Consultation: renal Referring Provider: MURIEL EWING 24 HR Interval Summary Free Text/Dictation NO acute events - BP stable - paced on tele - in a. fib ROS: No fever, no chills, no nausea, no vomiting, no diarrhea/constipation No recent weight changes No chest pain, no PND, no orthopnea No dizziness, blurred vision No thirst, no heat or cold intolerance (per nurse) Exam/Review of Systems Vital Signs Vitals Vital Signs Date Time Temp Pulse Resp B/P Pulse Ox O2 Delivery O2 Flow Rate FiO2 08/16/16 16:59 97.6 60 18 106/53 100 08/16/16 08:15 Nasal Cannula 2.0 Intake and Output 08/15/16 08/15/16 08/16/16 15:00 23:00 07:00 Intake Total 740 ml 220 ml Output Total 200 ml 950 ml Balance 540 ml -730 ml Exam General: WN/WD/NAD, AOx 0-1 HEENT: Unicetric/atraumatic/EOMI (does not follow commands) NECK: JVD elevated, no thyromegaly Lymph: no lymphadenopathy HEART: regular with no S3, II/ systolic murmur at apex, paced LUNGS: Coarse sounds ABD: soft, NT, ND, +BS : Intact Neuro: non focal SKIN: chronic changes EXT: trace edema Results Result Diagram: 08/16/1651308/16/16513 Results 24 hrs Laboratory Tests Test 08/15/16 22:01 08/16/16 05:14 08/16/16 08:15 08/16/16 12:04 Bedside Glucose 111 101 116 Anion Gap 11 Basophils # 0.0 Basophils % 0.2 Blood Urea Nitrogen 28 H Calcium Level 7.9 L Carbon Dioxide Level 33 H Chloride Level 96 L Creatinine 0.98 Eosinophils # 0.1 Eosinophils % 2.5 Glucose Level 89 Hematocrit 32.2 L Hemoglobin 9.7 L Lymphocytes # 0.5 L Lymphocytes % 10.9 L Mean Corpuscular Hemoglobin 25.3 L Mean Corpuscular Hemoglobin Concent 30.1 L Mean Corpuscular Volume 83.9 Mean Platelet Volume 11.2 H Monocytes # 0.3 Monocytes % 5.9 Neutrophils # 3.5 Neutrophils % 80.3 H Nucleated Red Blood Cells # 0.0 Nucleated Red Blood Cells % 0.0 Platelet Count 296 # Potassium Level 3.2 L Red Blood Count 3.84 L Red Cell Distribution Width 22.4 H Sodium Level 137 White Blood Count 4.4 L Medications Medications Current Medications Aspirin (Halfprin) 81 mg DAILY PO Last administered on 08/05/16 09:06; Admin Dose 81 MG; Start 07/19/16 at 09:00; Status Future Hold Nitroglycerin (Nitroglycerin (Sl Tab) 0.4 Mg) 1 tab DAILY PRN SL CHEST PAIN; Start 07/18/16 at 15:30 Ondansetron HCl (Zofran Inj) 4 mg Q6H PRN IV NAUSEA AND/OR VOMITING Last administered on 08/05/16 23:48; Admin Dose 4 MG; Start 07/18/16 at 15:30 Acetaminophen (Tylenol Tab) 650 mg Q6H PRN PO PAIN LEVEL 1-3 OR FEVER Last administered on 08/16/16 12:21; Admin Dose 650 MG; Start 07/18/16 at 15:30 Acetaminophen (Tylenol Supp) 650 mg Q6H PRN GA PAIN LEVEL 1-3 OR FEVER; Start 07/18/16 at 15:30 Docusate Sodium (Colace) 100 mg Q12H PRN PO CONSTIPATION Last administered on 20:19; Admin Dose 100 MG; Start 07/18/16 at 15:30 Magnesium Hydroxide (Milk Of Mag) 30 ml DAILY PRN PO CONSTIPATION Last administered on 07/28/16 23:03; Admin Dose 30 ML; Start 07/18/16 at 15:30 Bisacodyl (Dulcolax Supp) 10 mg DAILY PRN GA CONSTIPATION Last administered on 08/15/16 01:50; Admin Dose 10 MG; Start 07/18/16 at 15:30 Miscellaneous Information 1 ea NOTE XX ; Start 07/18/16 at 17:30 Glucose (Glutose) 15 gm Q15M PRN PO DECREASED GLUCOSE; Start 07/18/16 at 17:30 Glucose (Glutose) 22.5 gm Q15M PRN PO DECREASED GLUCOSE; Start 07/18/16 at 17: 30 Dextrose (D50w Syringe) 25 ml Q15M PRN IV DECREASED GLUCOSE; Start 07/18/16 at 17:30 Dextrose (D50w Syringe) 50 ml Q15M PRN IV DECREASED GLUCOSE; Start 07/18/16 at 17:30 Glucagon (Glucagen) 1 mg Q15M PRN IM DECREASED GLUCOSE; Start 07/18/16 at 17:30 Glucose (Glutose) 15 gm Q15M PRN BUCCAL DECREASED GLUCOSE; Start 07/18/16 at 17 :30 Guaifenesin/ Codeine Phosphate (Robitussin Ac Liquid Cup) 10 ml Q4H PRN PO COUGH Last administered on 07/19/16 19:43; Admin Dose 10 ML; Start 07/18/16 at 23:30 Carvedilol (Coreg) 3.125 mg BID PO Last administered on 08/03/16 20:05; Admin Dose 3.125 MG; Start 07/24/16 at 09:00; Status Future Hold Isosorbide Dinitrate 10 mg 10 mg TID PO Last administered on 08/03/16 19:58; Admin Dose 10 MG; Start 07/30/16 at 21:00; Status Future Hold Sodium Chloride (1/2 NS) 1,000 ml @ 20 mls/hr Q24H IV Last administered on 01:50; Admin Dose 20 MLS/HR; Start 08/08/16 at 07:00 Pantoprazole (Protonix Iv) 40 mg DAILY@06 IV Last administered on 08/16/16 05: 19; Admin Dose 40 MG; Start 08/10/16 at 06:00 Sucralfate (Carafate) 1 gm QID NGT Last administered on 08/16/16 12:07; Admin Dose 1 GM; Start 08/09/16 at 21:00 Apixaban (Eliquis) 2.5 mg BID PO Last administered on 08/16/16 08:43; Admin Dose 2.5 MG; Start 08/10/16 at 21:00 IV Flush (NS 10 ml) 10 ml PRN PRN IV IV PROTOCOL; Start 08/11/16 at 17:00 Hydralazine HCl (Apresoline) 10 mg Q8 PO Last administered on 08/15/16 13:35; Admin Dose 10 MG; Start 08/13/16 at 14:00 Amiodarone HCl (Cordarone) 200 mg BID NGT Last administered on 08/14/16 13:55 ; Admin Dose 200 MG; Start 08/13/16 at 21:00; Status Future Hold Promethazine HCl/ Dextromethorphan (Phenergan-Dm) 5 ml Q4H PRN PO COUGH; Start 08/14/16 at 16:30 Diagnostic Test (Pha) (Accucheck) 1 ea 02 XX ; Start 08/15/16 at 02:00 Miscellaneous Information 1 ea NOTE XX ; Start 08/14/16 at 20:00 Glucose (Glutose) 15 gm Q15M PRN PO DECREASED GLUCOSE; Start 08/14/16 at 20:00 Glucose (Glutose) 22.5 gm Q15M PRN PO DECREASED GLUCOSE; Start 08/14/16 at 20: 00 Dextrose (D50w Syringe) 25 ml Q15M PRN IV DECREASED GLUCOSE; Start 08/14/16 at 20:00 Dextrose (D50w Syringe) 50 ml Q15M PRN IV DECREASED GLUCOSE; Start 08/14/16 at 20:00 Glucagon (Glucagen) 1 mg Q15M PRN IM DECREASED GLUCOSE; Start 08/14/16 at 20:00 Glucose (Glutose) 15 gm Q15M PRN BUCCAL DECREASED GLUCOSE; Start 08/14/16 at 20 :00 Potassium Chloride (Potassium Chloride Pwd/Soln) 20 meq BID PO ; Start 08/16/16 at 21:00 DODIE OLMSTEAD MD Aug 16, 2016 17:44
[2016-08-16] MEDS ORDERED: POTASSIUM CHLORIDE (SR) 20 MEQ TAB PO SCH (21:00)
[2016-08-16] MEDS: POTASSIUM CHLORIDE 20 MEQ POWDER FOR ORAL SOLN PO SCH (21:04)
[2016-08-17] VITALS (10 sets, daily range): BP systolic 100–118; BP diastolic 45–61; PULSE 59–61; RESP 17–20
[2016-08-17] MEDS: ACCU-CHEK XX SCH ×2 (02:00→21:22)
[2016-08-17] MEDS: PANTOPRAZOLE 40 MG INJ IV SCH (05:04)
[2016-08-17] MEDS: FUROSEMIDE 40 MG INJ IV SCH ×2 (05:05→17:39)
[2016-08-17] MEDS: ACETAMINOPHEN 325 MG TAB PO PRN ×3 (05:05→21:21)
[2016-08-17 07:30] LABS: ADD SCAN DIFF NO
[2016-08-17] MEDS: SOD CHLORIDE 0.45% 1,000 ML IV SCH (07:40)
[2016-08-17 07:45] LABS: ABNORMAL IP MESSAGE 1; BASOPHILS % 0.4 % (0.0-2.0); EOSINOPHILS # 0.2 10^3/ul (0.0-0.5); EOSINOPHILS % 3.2 % (0.0-7.0); LYMPHOCYTES # 0.6 10^3/ul (0.8-2.9); LYMPHOCYTES % 11.9 % (15.0-51.0); MEAN CORPUSCULAR HEMOGLOBIN 25.4 pg (29.0-33.0); MEAN CORPUSCULAR HGB CONC 29.4 g/dl (32.0-37.0); MEAN CORPUSCULAR VOLUME 86.3 fl (82.0-101.0); MEAN PLATELET VOLUME 10.9 fl (7.4-10.4); MONOCYTE # 0.3 10^3/ul (0.3-0.9); MONOCYTES % 5.8 % (0.0-11.0); NEUTROPHIL # 3.6 10^3/ul (1.6-7.5); NEUTROPHILS % 78.1 % (39.0-77.0); PLATELET COUNT 321 10^3/UL (140-415); RED BLOOD COUNT 3.94 10^6/ul (4.70-6.10); RED CELL DISTRIBUTION WIDTH 22.2 % (11.5-14.5); WHITE BLOOD COUNT 4.6 10^3/ul (4.8-10.8)
[2016-08-17 07:49] LABS: POTASSIUM 3.5 mmol/L (3.5-5.1)
[2016-08-17 07:52] LABS: CREATININE 0.95 mg/dl (0.61-1.24)
[2016-08-17 07:53] LABS: CALCIUM 8.1 mg/dl (8.4-10.2); MAGNESIUM 1.7 mg/dl (1.7-2.5)
[2016-08-17] MEDS: POTASSIUM CHLORIDE 20 MEQ POWDER FOR ORAL SOLN PO SCH ×2 (09:05→21:20)
[2016-08-17] MEDS: APIXABAN 5 MG TABLET PO SCH ×2 (09:10→21:22)
[2016-08-17] MEDS: SUCRALFATE 1 GM TAB NGT SCH ×4 (09:10→21:21)
--- NOTE | 2016-08-17 09:36 | RADRPT ---
PROCEDURE: XR Chest. CLINICAL INDICATION: Fluid overload TECHNIQUE: Chest AP portable. COMPARISON: 08/13/2016 FINDINGS: Sternotomy. Left-sided single lead pacemaker / AICD. Right arm PICC line with tip at SVC / RA junc tion. The mediastinal structures are unremarkable. There is calcification of the thoracic aorta (consiste nt with atherosclerosis). There is moderate cardiac enlargement. There is congestive heart failure with mild interstitial edema. There is bibasilar subsegmental atelectasis. There are small bilate ral pleural effusions. There are senescent changes of the axial skeleton. IMPRESSION: Moderate cardiac enlargement. Congestive heart failure with interstitial edema. Bibasilar subsegmental atelectasis Small bilateral pleural effusions RPTAT: [facility] .David Rachel MD, Date Time Electronically viewed and signed by .David Rachel MD, on 08/17/2016 09:36 .B/
--- NOTE | 2016-08-17 11:33 | CONS ---
Date/Time of Note Date/Time of Note DATE: 08/17/16 TIME: 11:24 Assessment/Plan Assessment/Plan Chief Complaint/Hosp Course IMPRESSION: 1. Congestive heart failure exacerbation, systolic, acute on chronic. EF 25% by most recent echo-worsening. Minimally + troponin after cardiac arrest 2. Resp failure s/p intubation 3. Hypotension/shock-on levo and vasopressin 3. History of coronary artery bypass graft surgery. 4. Abnormal electrocardiogram . MIldly postive trop after cardiac arrest 5. History of paroxysmal atrial fibrillation-on apixaban 6. Acute on chronic renal failure-Now on HD 8. Anemia, mild. 9. Coagulopathy secondary to apixaban- improved 10.Hematuria Rec: -tele -Hold amio and follow rhythm as per ECG questionable CHB with V pacing and will check repeat 12 lead today to document rhythm -Continue to hold coreg/isordil -Continue hydralazine low dose afterload reduction as tolerated -Continue HD for volume removal -Continue daily lasix and follow program engineer/vol status closely -Continue apixaban now that coagulopathy improved -PT/OT Problems: Consultation Date/Type/Reason Admit Date/Time Jul 18, 2016 at 14:06 Initial Consult Date 07/19/2016 Type of Consultation: Cardiology Reason for Consultation CHF/cardiomyopathy Referring Provider: MURIEL EWING Exam/Review of Systems Vital Signs Vitals Vital Signs Date Time Temp Pulse Resp B/P Pulse Ox O2 Delivery O2 Flow Rate FiO2 08/17/16 08:15 Nasal Cannula 2.0 08/17/16 08:00 60 08/17/16 07:19 98.0 20 106/51 100 Intake and Output 08/16/16 08/16/16 08/17/16 15:00 23:00 07:00 Intake Total 800 ml 400 ml Output Total 400 ml 250 ml Balance 400 ml 150 ml Exam Review of Systems: CONSTITUTIONAL: No fevers, chills. PULMONARY: No sob CARDIOVASCULAR: No chest pain/palpitations GASTROINTESTINAL: No nausea/vomiting. GENITOURINARY: No hematuria/dysuria. MUSCULOSKELETAL: No myagias/arthalgias. PSYCHIATRIC: The patient denies depression. NEUROLOGIC: lethargic but more alert overall Constitutional: alert Psych: no complaints Head: normocephalic ENMT: mucosa pink and moist Neck: jvd (9 cm water), supple Respiratory: diminished breath sounds (at bases/B) Cardiovascular: regular rate and rhythm Gastrointestinal: non-tender, soft Musculoskeletal: muscle tone (normal) Extremities: other (None) Neurological: other (No focal deficits) Results Result Diagram: 08/17/1615 08/17/16 0615 Results 24 hrs Laboratory Tests Test 08/16/16 12:04 08/16/16 17:45 08/16/16 19:58 08/17/16 06:15 Bedside Glucose 116 104 145 Anion Gap 15 Basophils # 0.0 Basophils % 0.4 Blood Urea Nitrogen 23 H Calcium Level 8.1 L Carbon Dioxide Level 29 Chloride Level 98 Creatinine 0.95 Eosinophils # 0.2 Eosinophils % 3.2 Glucose Level 86 Hematocrit 34.0 L Hemoglobin 10.0 L Lymphocytes # 0.6 L Lymphocytes % 11.9 L Magnesium Level 1.7 Mean Corpuscular Hemoglobin 25.4 L Mean Corpuscular Hemoglobin Concent 29.4 L Mean Corpuscular Volume 86.3 Mean Platelet Volume 10.9 H Monocytes # 0.3 Monocytes % 5.8 Neutrophils # 3.6 Neutrophils % 78.1 H Nucleated Red Blood Cells # 0.0 Nucleated Red Blood Cells % 0.0 Platelet Count 321 Potassium Level 3.5 Red Blood Count 3.94 L Red Cell Distribution Width 22.2 H Sodium Level 138 White Blood Count 4.6 L Test 08/17/16 07:31 Bedside Glucose 95 Medications Medications Current Medications Aspirin (Halfprin) 81 mg DAILY PO Last administered on 08/05/16 09:06; Admin Dose 81 MG; Start 07/19/16 at 09:00; Status Future Hold Nitroglycerin (Nitroglycerin (Sl Tab) 0.4 Mg) 1 tab DAILY PRN SL CHEST PAIN; Start 07/18/16 at 15:30 Ondansetron HCl (Zofran Inj) 4 mg Q6H PRN IV NAUSEA AND/OR VOMITING Last administered on 08/05/16 23:48; Admin Dose 4 MG; Start 07/18/16 at 15:30 Acetaminophen (Tylenol Tab) 650 mg Q6H PRN PO PAIN LEVEL 1-3 OR FEVER Last administered on 08/17/16 05:05; Admin Dose 650 MG; Start 07/18/16 at 15:30 Acetaminophen (Tylenol Supp) 650 mg Q6H PRN IN PAIN LEVEL 1-3 OR FEVER; Start 07/18/16 at 15:30 Docusate Sodium (Colace) 100 mg Q12H PRN PO CONSTIPATION Last administered on 20:19; Admin Dose 100 MG; Start 07/18/16 at 15:30 Magnesium Hydroxide (Milk Of Mag) 30 ml DAILY PRN PO CONSTIPATION Last administered on 07/28/16 23:03; Admin Dose 30 ML; Start 07/18/16 at 15:30 Bisacodyl (Dulcolax Supp) 10 mg DAILY PRN IN CONSTIPATION Last administered on 08/15/16 01:50; Admin Dose 10 MG; Start 07/18/16 at 15:30 Miscellaneous Information 1 ea NOTE XX ; Start 07/18/16 at 17:30 Glucose (Glutose) 15 gm Q15M PRN PO DECREASED GLUCOSE; Start 07/18/16 at 17:30 Glucose (Glutose) 22.5 gm Q15M PRN PO DECREASED GLUCOSE; Start 07/18/16 at 17: 30 Dextrose (D50w Syringe) 25 ml Q15M PRN IV DECREASED GLUCOSE; Start 07/18/16 at 17:30 Dextrose (D50w Syringe) 50 ml Q15M PRN IV DECREASED GLUCOSE; Start 07/18/16 at 17:30 Glucagon (Glucagen) 1 mg Q15M PRN IM DECREASED GLUCOSE; Start 07/18/16 at 17:30 Glucose (Glutose) 15 gm Q15M PRN BUCCAL DECREASED GLUCOSE; Start 07/18/16 at 17 :30 Guaifenesin/ Codeine Phosphate (Robitussin Ac Liquid Cup) 10 ml Q4H PRN PO COUGH Last administered on 07/19/16 19:43; Admin Dose 10 ML; Start 07/18/16 at 23:30 Carvedilol (Coreg) 3.125 mg BID PO Last administered on 08/03/16 20:05; Admin Dose 3.125 MG; Start 07/24/16 at 09:00; Status Future Hold Isosorbide Dinitrate 10 mg 10 mg TID PO Last administered on 08/03/16 19:58; Admin Dose 10 MG; Start 07/30/16 at 21:00; Status Future Hold Sodium Chloride (1/2 NS) 1,000 ml @ 20 mls/hr Q24H IV Last administered on 01:50; Admin Dose 20 MLS/HR; Start 08/08/16 at 07:00 Pantoprazole (Protonix Iv) 40 mg DAILY@06 IV Last administered on 08/17/16 05: 04; Admin Dose 40 MG; Start 08/10/16 at 06:00 Sucralfate (Carafate) 1 gm QID NGT Last administered on 08/17/16 09:10; Admin Dose 1 GM; Start 08/09/16 at 21:00 Apixaban (Eliquis) 2.5 mg BID PO Last administered on 08/17/16 09:10; Admin Dose 2.5 MG; Start 08/10/16 at 21:00 IV Flush (NS 10 ml) 10 ml PRN PRN IV IV PROTOCOL; Start 08/11/16 at 17:00 Hydralazine HCl (Apresoline) 10 mg Q8 PO Last administered on 08/15/16 13:35; Admin Dose 10 MG; Start 08/13/16 at 14:00 Amiodarone HCl (Cordarone) 200 mg BID NGT Last administered on 08/14/16 13:55 ; Admin Dose 200 MG; Start 08/13/16 at 21:00; Status Future Hold Promethazine HCl/ Dextromethorphan (Phenergan-Dm) 5 ml Q4H PRN PO COUGH; Start 08/14/16 at 16:30 Diagnostic Test (Pha) (Accucheck) 1 ea 02 XX ; Start 08/15/16 at 02:00 Miscellaneous Information 1 ea NOTE XX ; Start 08/14/16 at 20:00 Glucose (Glutose) 15 gm Q15M PRN PO DECREASED GLUCOSE; Start 08/14/16 at 20:00 Glucose (Glutose) 22.5 gm Q15M PRN PO DECREASED GLUCOSE; Start 08/14/16 at 20: 00 Dextrose (D50w Syringe) 25 ml Q15M PRN IV DECREASED GLUCOSE; Start 08/14/16 at 20:00 Dextrose (D50w Syringe) 50 ml Q15M PRN IV DECREASED GLUCOSE; Start 08/14/16 at 20:00 Glucagon (Glucagen) 1 mg Q15M PRN IM DECREASED GLUCOSE; Start 08/14/16 at 20:00 Glucose (Glutose) 15 gm Q15M PRN BUCCAL DECREASED GLUCOSE; Start 08/14/16 at 20 :00 Potassium Chloride (Potassium Chloride Pwd/Soln) 20 meq BID PO Last administered on 08/17/16t 09:05; Admin Dose 20 MEQ; Start 08/16/16 at 21:00 POLI SAN Aug 17, 2016 11:33
[2016-08-17] MEDS: INSULIN ASPART [NOVOLOG] 3 ML PEN SC SCH ×4 (11:50→21:00)
--- NOTE | 2016-08-17 12:03 | CONS ---
Date/Time of Note Date/Time of Note DATE: 08/17/16 TIME: 12:01 Assessment/Plan Assessment/Plan Additional Assessment/Plan Chest x-ray was reviewed from today which is showing mild congestive heart failure pattern. Cardiomegaly is present. Assessment recommendations; 1. Patient admitted for respiratory failure due to underlying cardiomyopathy and CHF exacerbation with marked overall clinical improvement. 2. History of cardiac arrhythmia. 3. History of hypertension. 4. Possibly some element of aspiration pneumonia with interval resolution as well patient off antibiotics now. 5. Renal insufficiency. With normalization of serum creatinine. 6. Prior history of coronary artery bypass surgery. Continue current treatment. Patient can be discharged home. Consultation Date/Type/Reason Admit Date/Time Jul 18, 2016 at 14:06 Initial Consult Date 08/06/16 Type of Consultation: Pulmonary Referring Provider: MURIEL EWING 24 HR Interval Summary Free Text/Dictation Patient condition is continually improving. He is completely awake alert. Denies any shortness of breath, chest pain. Any wheezing. General exam; elderly male, sitting in chair by bedside. Awake and alert. Currently in no distress. Exam/Review of Systems Vital Signs Vitals Vital Signs Date Time Temp Pulse Resp B/P Pulse Ox O2 Delivery O2 Flow Rate FiO2 08/17/16 11:54 97.4 61 20 104/61 100 08/17/16 08:15 Nasal Cannula 2.0 Intake and Output 08/16/16 08/16/16 08/17/16 15:00 23:00 07:00 Intake Total 800 ml 400 ml Output Total 400 ml 250 ml Balance 400 ml 150 ml Exam H EENT exam; supple neck, no lymphadenopathy. No thyromegaly. Pharynx is clear. Patient has only a few remaining teeth in the lower jaw. Pupils are small bilaterally. Positive JVD. Chest examination; diminished but clear breath sounds bilaterally. S1-S2 audible, no murmurs. Regular rhythm. There is a well-healed sternal scar. There is a pacemaker in the left chest wall. Abdomen examination; soft, nondistended. No organomegaly. Bowel sounds audible. Extremity exam is; no peripheral edema. Pulses 1+ bilaterally. 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 Results Result Diagram: 08/17/16 0615 08/17/16 0615 Results 24 hrs Laboratory Tests Test 08/16/16 12:04 08/16/16 17:45 08/16/16 19:58 08/17/16 06:15 Bedside Glucose 116 104 145 Anion Gap 15 Basophils # 0.0 Basophils % 0.4 Blood Urea Nitrogen 23 H Calcium Level 8.1 L Carbon Dioxide Level 29 Chloride Level 98 Creatinine 0.95 Eosinophils # 0.2 Eosinophils % 3.2 Glucose Level 86 Hematocrit 34.0 L Hemoglobin 10.0 L Lymphocytes # 0.6 L Lymphocytes % 11.9 L Magnesium Level 1.7 Mean Corpuscular Hemoglobin 25.4 L Mean Corpuscular Hemoglobin Concent 29.4 L Mean Corpuscular Volume 86.3 Mean Platelet Volume 10.9 H Monocytes # 0.3 Monocytes % 5.8 Neutrophils # 3.6 Neutrophils % 78.1 H Nucleated Red Blood Cells # 0.0 Nucleated Red Blood Cells % 0.0 Platelet Count 321 Potassium Level 3.5 Red Blood Count 3.94 L Red Cell Distribution Width 22.2 H Sodium Level 138 White Blood Count 4.6 L Test 08/17/16 07:31 08/17/16 11:48 Bedside Glucose 95 161 Medications Medications Current Medications Aspirin (Halfprin) 81 mg DAILY PO Last administered on 08/05/16 09:06; Admin Dose 81 MG; Start 07/19/16 at 09:00; Status Future Hold Nitroglycerin (Nitroglycerin (Sl Tab) 0.4 Mg) 1 tab DAILY PRN SL CHEST PAIN; Start 07/18/16 at 15:30 Ondansetron HCl (Zofran Inj) 4 mg Q6H PRN IV NAUSEA AND/OR VOMITING Last administered on 08/05/16 23:48; Admin Dose 4 MG; Start 07/18/16 at 15:30 Acetaminophen (Tylenol Tab) 650 mg Q6H PRN PO PAIN LEVEL 1-3 OR FEVER Last administered on 08/17/16 05:05; Admin Dose 650 MG; Start 07/18/16 at 15:30 Acetaminophen (Tylenol Supp) 650 mg Q6H PRN ME PAIN LEVEL 1-3 OR FEVER; Start 07/18/16 at 15:30 Docusate Sodium (Colace) 100 mg Q12H PRN PO CONSTIPATION Last administered on 20:19; Admin Dose 100 MG; Start 07/18/16 at 15:30 Magnesium Hydroxide (Milk Of Mag) 30 ml DAILY PRN PO CONSTIPATION Last administered on 07/28/16 23:03; Admin Dose 30 ML; Start 07/18/16 at 15:30 Bisacodyl (Dulcolax Supp) 10 mg DAILY PRN ME CONSTIPATION Last administered on 08/15/16 01:50; Admin Dose 10 MG; Start 07/18/16 at 15:30 Miscellaneous Information 1 ea NOTE XX ; Start 07/18/16 at 17:30 Glucose (Glutose) 15 gm Q15M PRN PO DECREASED GLUCOSE; Start 07/18/16 at 17:30 Glucose (Glutose) 22.5 gm Q15M PRN PO DECREASED GLUCOSE; Start 07/18/16 at 17: 30 Dextrose (D50w Syringe) 25 ml Q15M PRN IV DECREASED GLUCOSE; Start 07/18/16 at 17:30 Dextrose (D50w Syringe) 50 ml Q15M PRN IV DECREASED GLUCOSE; Start 07/18/16 at 17:30 Glucagon (Glucagen) 1 mg Q15M PRN IM DECREASED GLUCOSE; Start 07/18/16 at 17:30 Glucose (Glutose) 15 gm Q15M PRN BUCCAL DECREASED GLUCOSE; Start 07/18/16 at 17 :30 Guaifenesin/ Codeine Phosphate (Robitussin Ac Liquid Cup) 10 ml Q4H PRN PO COUGH Last administered on 07/19/16 19:43; Admin Dose 10 ML; Start 07/18/16 at 23:30 Carvedilol (Coreg) 3.125 mg BID PO Last administered on 08/03/16 20:05; Admin Dose 3.125 MG; Start 07/24/16 at 09:00; Status Future Hold Isosorbide Dinitrate 10 mg 10 mg TID PO Last administered on 08/03/16 19:58; Admin Dose 10 MG; Start 07/30/16 at 21:00; Status Future Hold Sodium Chloride (1/2 NS) 1,000 ml @ 20 mls/hr Q24H IV Last administered on 01:50; Admin Dose 20 MLS/HR; Start 08/08/16 at 07:00 Pantoprazole (Protonix Iv) 40 mg DAILY@06 IV Last administered on 08/17/16 05: 04; Admin Dose 40 MG; Start 08/10/16 at 06:00 Sucralfate (Carafate) 1 gm QID NGT Last administered on 08/17/16 09:10; Admin Dose 1 GM; Start 08/09/16 at 21:00 Apixaban (Eliquis) 2.5 mg BID PO Last administered on 08/17/16 09:10; Admin Dose 2.5 MG; Start 08/10/16 at 21:00 IV Flush (NS 10 ml) 10 ml PRN PRN IV IV PROTOCOL; Start 08/11/16 at 17:00 Hydralazine HCl (Apresoline) 10 mg Q8 PO Last administered on 08/15/16 13:35; Admin Dose 10 MG; Start 08/13/16 at 14:00 Amiodarone HCl (Cordarone) 200 mg BID NGT Last administered on 08/14/16 13:55 ; Admin Dose 200 MG; Start 08/13/16 at 21:00; Status Future Hold Promethazine HCl/ Dextromethorphan (Phenergan-Dm) 5 ml Q4H PRN PO COUGH; Start 08/14/16 at 16:30 Diagnostic Test (Pha) (Accucheck) 1 ea 02 XX ; Start 08/15/16 at 02:00 Miscellaneous Information 1 ea NOTE XX ; Start 08/14/16 at 20:00 Glucose (Glutose) 15 gm Q15M PRN PO DECREASED GLUCOSE; Start 08/14/16 at 20:00 Glucose (Glutose) 22.5 gm Q15M PRN PO DECREASED GLUCOSE; Start 08/14/16 at 20: 00 Dextrose (D50w Syringe) 25 ml Q15M PRN IV DECREASED GLUCOSE; Start 08/14/16 at 20:00 Dextrose (D50w Syringe) 50 ml Q15M PRN IV DECREASED GLUCOSE; Start 08/14/16 at 20:00 Glucagon (Glucagen) 1 mg Q15M PRN IM DECREASED GLUCOSE; Start 08/14/16 at 20:00 Glucose (Glutose) 15 gm Q15M PRN BUCCAL DECREASED GLUCOSE; Start 08/14/16 at 20 :00 Potassium Chloride (Potassium Chloride Pwd/Soln) 20 meq BID PO Last administered on 08/17/16 09:05; Admin Dose 20 MEQ; Start 08/16/16 at 21:00 ADAMARIS RAMIREZ 20, 2017 12:03
--- NOTE | 2016-08-17 14:19 | PN ---
Date/Time of Note Date/Time of Note DATE: 08/17/16 TIME: 14:17 Assessment/Plan VTE Prophylaxis VTE Prophylaxis Intervention: SCD's Lines/Catheters IV Catheter Type (from Nrs): PICC Line Central line still needed: Yes Urinary Cath still in place: Yes Reason Cath still needed: other (indicate) Assessment/Plan Chief Complaint/Hosp Course Chief Complaint/Hosp Course 1. Acute Resp failure secondary to pulmonary edema and possible aspiration pneumonia-now extubated Status post Zosyn and vancomycin Pulmonology on case 2. Acute on chronic congestive heart failure Continue dialysis for volume overload, continue Lasix IV 3. 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 Type 2 diabetes-stable Insulin sliding scale 5. Atrial fibrillation, rate controlled 6. History of CAD status post CABG 7. Acute on likely chronic kidney disease 2/2 cardiorenal syndrome Continue hemodialysis 8. Acute encephalopathy secondary to uremic syndrome now improved with dialysis According to the family patient's mentation is back to baseline Speech therapy bedside swallow eval done patient is tolerating a p.o. diet 9. Debility secondary to comorbidities Continue PT, patient cannot ambulate need to go to a rehab center, case sealer aware 10. Cough possibly secondary to pulmonary edema with rapid removal of volume from the lung-Improved Phenergan as needed PPx- on [facility] qa manager consult for acute rehab placement Problems: Subjective 24 Hr Interval Summary Free Text/Dictation Patient denies any chest pain or shortness of breath Complains of having mild weakness Max assist with ambulation Tolerating oral intake Exam/Review of Systems Vital Signs Vitals Vital Signs Date Time Temp Pulse Resp B/P Pulse Ox O2 Delivery O2 Flow Rate FiO2 08/17/16 12:00 59 08/17/16 11:54 97.4 20 104/61 100 08/17/16 08:15 Nasal Cannula 2.0 Intake and Output 08/16/16 08/16/16 08/17/16 15:00 23:00 07:00 Intake Total 800 ml 400 ml Output Total 400 ml 250 ml Balance 400 ml 150 ml Exam General: The patient is well-developed, Not in acute distress. HEENT: Atraumatic, normocephalic. The pupils are equal and round . Neck: Supple with full range of motion. Chest: Normal expansion of the thorax during inspiration Lungs: Clear to auscultation bilaterally Heart: Normal S1-S2, Regular rhythm and rate. Abdomen: Soft , nontender, nondistended , bowel sounds are present. Extremities: Normal to inspection, no edema no cyanosis Neurologic: Normal mental status,The patient is awake, alert and oriented . Results Result Diagram: 08/17/16 0615 08/17/16 0615 Results 24 hrs Laboratory Tests Test 08/16/16 17:45 08/16/16 19:58 08/17/16 06:15 08/17/16 07:31 Bedside Glucose 104 145 95 Anion Gap 15 Basophils # 0.0 Basophils % 0.4 Blood Urea Nitrogen 23 H Calcium Level 8.1 L Carbon Dioxide Level 29 Chloride Level 98 Creatinine 0.95 Eosinophils # 0.2 Eosinophils % 3.2 Glucose Level 86 Hematocrit 34.0 L Hemoglobin 10.0 L Lymphocytes # 0.6 L Lymphocytes % 11.9 L Magnesium Level 1.7 Mean Corpuscular Hemoglobin 25.4 L Mean Corpuscular Hemoglobin Concent 29.4 L Mean Corpuscular Volume 86.3 Mean Platelet Volume 10.9 H Monocytes # 0.3 Monocytes % 5.8 Neutrophils # 3.6 Neutrophils % 78.1 H Nucleated Red Blood Cells # 0.0 Nucleated Red Blood Cells % 0.0 Platelet Count 321 Potassium Level 3.5 Red Blood Count 3.94 L Red Cell Distribution Width 22.2 H Sodium Level 138 White Blood Count 4.6 L Test 08/17/16 11:48 Bedside Glucose 161 Medications Medications Current Medications Aspirin (Halfprin) 81 mg DAILY PO Last administered on 08/05/16 09:06; Admin Dose 81 MG; Start 07/19/16 at 09:00; Status Future Hold Nitroglycerin (Nitroglycerin (Sl Tab) 0.4 Mg) 1 tab DAILY PRN SL CHEST PAIN; Start 07/18/16 at 15:30 Ondansetron HCl (Zofran Inj) 4 mg Q6H PRN IV NAUSEA AND/OR VOMITING Last administered on 08/05/16 23:48; Admin Dose 4 MG; Start 07/18/16 at 15:30 Acetaminophen (Tylenol Tab) 650 mg Q6H PRN PO PAIN LEVEL 1-3 OR FEVER Last administered on 08/17/16 05:05; Admin Dose 650 MG; Start 07/18/16 at 15:30 Acetaminophen (Tylenol Supp) 650 mg Q6H PRN [place] PAIN LEVEL 1-3 OR FEVER; Start 07/18/16 at 15:30 Docusate Sodium (Colace) 100 mg Q12H PRN PO CONSTIPATION Last administered on 20:19; Admin Dose 100 MG; Start 07/18/16 at 15:30 Magnesium Hydroxide (Milk Of Mag) 30 ml DAILY PRN PO CONSTIPATION Last administered on 07/28/16 23:03; Admin Dose 30 ML; Start 07/18/16 at 15:30 Bisacodyl (Dulcolax Supp) 10 mg DAILY PRN [place] CONSTIPATION Last administered on 08/15/16 01:50; Admin Dose 10 MG; Start 07/18/16 at 15:30 Miscellaneous Information 1 ea NOTE XX ; Start 07/18/16 at 17:30 Glucose (Glutose) 15 gm Q15M PRN PO DECREASED GLUCOSE; Start 07/18/16 at 17:30 Glucose (Glutose) 22.5 gm Q15M PRN PO DECREASED GLUCOSE; Start 07/18/16 at 17: 30 Dextrose (D50w Syringe) 25 ml Q15M PRN IV DECREASED GLUCOSE; Start 07/18/16 at 17:30 Dextrose (D50w Syringe) 50 ml Q15M PRN IV DECREASED GLUCOSE; Start 07/18/16 at 17:30 Glucagon (Glucagen) 1 mg Q15M PRN IM DECREASED GLUCOSE; Start 07/18/16 at 17:30 Glucose (Glutose) 15 gm Q15M PRN BUCCAL DECREASED GLUCOSE; Start 07/18/16 at 17 :30 Guaifenesin/ Codeine Phosphate (Robitussin Ac Liquid Cup) 10 ml Q4H PRN PO COUGH Last administered on 07/19/16 19:43; Admin Dose 10 ML; Start 07/18/16 at 23:30 Carvedilol (Coreg) 3.125 mg BID PO Last administered on 08/03/16 20:05; Admin Dose 3.125 MG; Start 07/24/16 at 09:00; Status Future Hold Isosorbide Dinitrate 10 mg 10 mg TID PO Last administered on 08/03/16 19:58; Admin Dose 10 MG; Start 07/30/16 at 21:00; Status Future Hold Sodium Chloride (1/2 NS) 1,000 ml @ 20 mls/hr Q24H IV Last administered on 01:50; Admin Dose 20 MLS/HR; Start 08/08/16 at 07:00 Pantoprazole (Protonix Iv) 40 mg DAILY@06 IV Last administered on 08/17/16 05: 04; Admin Dose 40 MG; Start 08/10/16 at 06:00 Sucralfate (Carafate) 1 gm QID NGT Last administered on 08/17/16 13:40; Admin Dose 1 GM; Start 08/09/16 at 21:00 Apixaban (Eliquis) 2.5 mg BID PO Last administered on 08/17/16 09:10; Admin Dose 2.5 MG; Start 08/10/16 at 21:00 IV Flush (NS 10 ml) 10 ml PRN PRN IV IV PROTOCOL; Start 08/11/16 at 17:00 Hydralazine HCl (Apresoline) 10 mg Q8 PO Last administered on 08/17/16 13:41; Admin Dose 10 MG; Start 08/13/16 at 14:00 Amiodarone HCl (Cordarone) 200 mg BID NGT Last administered on 08/14/16 13:55 ; Admin Dose 200 MG; Start 08/13/16 at 21:00; Status Future Hold Promethazine HCl/ Dextromethorphan (Phenergan-Dm) 5 ml Q4H PRN PO COUGH; Start 08/14/16 at 16:30 Diagnostic Test (Pha) (Accucheck) 1 ea 02 XX ; Start 08/15/16 at 02:00 Miscellaneous Information 1 ea NOTE XX ; Start 08/14/16 at 20:00 Glucose (Glutose) 15 gm Q15M PRN PO DECREASED GLUCOSE; Start 08/14/16 at 20:00 Glucose (Glutose) 22.5 gm Q15M PRN PO DECREASED GLUCOSE; Start 08/14/16 at 20: 00 Dextrose (D50w Syringe) 25 ml Q15M PRN IV DECREASED GLUCOSE; Start 08/14/16 at 20:00 Dextrose (D50w Syringe) 50 ml Q15M PRN IV DECREASED GLUCOSE; Start 08/14/16 at 20:00 Glucagon (Glucagen) 1 mg Q15M PRN IM DECREASED GLUCOSE; Start 08/14/16 at 20:00 Glucose (Glutose) 15 gm Q15M PRN BUCCAL DECREASED GLUCOSE; Start 08/14/16 at 20 :00 Potassium Chloride (Potassium Chloride Pwd/Soln) 20 meq BID PO Last administered on 08/17/16t 09:05; Admin Dose 20 MEQ; Start 08/16/16 at 21:00 HAKAN REINA MD Aug 17, 2016 14:19
--- NOTE | 2016-08-17 14:51 | PDOCDIS ---
Discharge Instructions CONDITION Patient Condition: Fair HOME CARE INSTRUCTIONS: Special Diet: PUREED ACTIVITY: Activity Restrictions: Special Exercises HAKAN REINA MD Aug 17, 2016 14:51
[2016-08-17] MEDS ORDERED: ISOS10TA2 PO (14:52)
[2016-08-17] MEDS ORDERED: APIX5TAB PO (14:52)
[2016-08-17] MEDS ORDERED: SUCR1TAB27 NGT (14:52)
[2016-08-17] MEDS ORDERED: CARV6.2579 PO (14:52)
--- NOTE | 2016-08-17 17:45 | CONS ---
Date/Time of Note Date/Time of Note DATE: 08/17/16 TIME: 17:44 Assessment/Plan Assessment/Plan Chief Complaint/Hosp Course 1. Patient has acute on chronic renal failure with acute kidney injury due to systolic heart failure. BETTER 2. The patient has low ef now s/p vent/cardio renal syndrome s/p extubation 3. Anemia. 4. ASHD 5. Acute urinary tract infection.better 6 LOW EF 7 hyperkalemia HX 8 afib 9 hematuria HX plan will hold hd for now and observe ,ck bmp if renal fn gets worse will need permacath Problems: Consultation Date/Type/Reason Admit Date/Time Jul 18, 2016 at 14:06 Type of Consultation: RENAL Referring Provider: MURIEL EWING 24 HR Interval Summary Constitutional: no complaints Exam/Review of Systems Vital Signs Vitals Vital Signs Date Time Temp Pulse Resp B/P Pulse Ox O2 Delivery O2 Flow Rate FiO2 08/17/16 16:00 61 08/17/16 16:00 97.3 20 100/45 100 08/17/16 08:15 Nasal Cannula 2.0 Intake and Output 08/16/16 08/16/16 08/17/16 15:00 23:00 07:00 Intake Total 800 ml 400 ml Output Total 400 ml 250 ml Balance 400 ml 150 ml Exam Respiratory: clear to auscultation Cardiovascular: regular rate and rhythm Gastrointestinal: soft Results Result Diagram: 08/17/16 0615 08/17/16 0615 Results 24 hrs Laboratory Tests Test 08/16/16 17:45 08/16/16 19:58 08/17/16 06:15 08/17/16 07:31 Bedside Glucose 104 145 95 Anion Gap 15 Basophils # 0.0 Basophils % 0.4 Blood Urea Nitrogen 23 H Calcium Level 8.1 L Carbon Dioxide Level 29 Chloride Level 98 Creatinine 0.95 Eosinophils # 0.2 Eosinophils % 3.2 Glucose Level 86 Hematocrit 34.0 L Hemoglobin 10.0 L Lymphocytes # 0.6 L Lymphocytes % 11.9 L Magnesium Level 1.7 Mean Corpuscular Hemoglobin 25.4 L Mean Corpuscular Hemoglobin Concent 29.4 L Mean Corpuscular Volume 86.3 Mean Platelet Volume 10.9 H Monocytes # 0.3 Monocytes % 5.8 Neutrophils # 3.6 Neutrophils % 78.1 H Nucleated Red Blood Cells # 0.0 Nucleated Red Blood Cells % 0.0 Platelet Count 321 Potassium Level 3.5 Red Blood Count 3.94 L Red Cell Distribution Width 22.2 H Sodium Level 138 White Blood Count 4.6 L Test 08/17/16 11:48 08/17/16 17:16 Bedside Glucose 161 90 Medications Medications Current Medications Aspirin (Halfprin) 81 mg DAILY PO Last administered on 08/05/16 09:06; Admin Dose 81 MG; Start 07/19/16 at 09:00; Status Future Hold Nitroglycerin (Nitroglycerin (Sl Tab) 0.4 Mg) 1 tab DAILY PRN SL CHEST PAIN; Start 07/18/16 at 15:30 Ondansetron HCl (Zofran Inj) 4 mg Q6H PRN IV NAUSEA AND/OR VOMITING Last administered on 08/05/16 23:48; Admin Dose 4 MG; Start 07/18/16 at 15:30 Acetaminophen (Tylenol Tab) 650 mg Q6H PRN PO PAIN LEVEL 1-3 OR FEVER Last administered on 08/17/16 15:14; Admin Dose 650 MG; Start 07/18/16 at 15:30 Acetaminophen (Tylenol Supp) 650 mg Q6H PRN [place] PAIN LEVEL 1-3 OR FEVER; Start 07/18/16 at 15:30 Docusate Sodium (Colace) 100 mg Q12H PRN PO CONSTIPATION Last administered on 20:19; Admin Dose 100 MG; Start 07/18/16 at 15:30 Magnesium Hydroxide (Milk Of Mag) 30 ml DAILY PRN PO CONSTIPATION Last administered on 07/28/16 23:03; Admin Dose 30 ML; Start 07/18/16 at 15:30 Bisacodyl (Dulcolax Supp) 10 mg DAILY PRN [place] CONSTIPATION Last administered on 08/15/16 01:50; Admin Dose 10 MG; Start 07/18/16 at 15:30 Miscellaneous Information 1 ea NOTE XX ; Start 07/18/16 at 17:30 Glucose (Glutose) 15 gm Q15M PRN PO DECREASED GLUCOSE; Start 07/18/16 at 17:30 Glucose (Glutose) 22.5 gm Q15M PRN PO DECREASED GLUCOSE; Start 07/18/16 at 17: 30 Dextrose (D50w Syringe) 25 ml Q15M PRN IV DECREASED GLUCOSE; Start 07/18/16 at 17:30 Dextrose (D50w Syringe) 50 ml Q15M PRN IV DECREASED GLUCOSE; Start 07/18/16 at 17:30 Glucagon (Glucagen) 1 mg Q15M PRN IM DECREASED GLUCOSE; Start 07/18/16 at 17:30 Glucose (Glutose) 15 gm Q15M PRN BUCCAL DECREASED GLUCOSE; Start 07/18/16 at 17 :30 Guaifenesin/ Codeine Phosphate (Robitussin Ac Liquid Cup) 10 ml Q4H PRN PO COUGH Last administered on 07/19/16 19:43; Admin Dose 10 ML; Start 07/18/16 at 23:30 Carvedilol (Coreg) 3.125 mg BID PO Last administered on 08/03/16 20:05; Admin Dose 3.125 MG; Start 07/24/16 at 09:00; Status Future Hold Isosorbide Dinitrate 10 mg 10 mg TID PO Last administered on 08/03/16 19:58; Admin Dose 10 MG; Start 07/30/16 at 21:00; Status Future Hold Sodium Chloride (1/2 NS) 1,000 ml @ 20 mls/hr Q24H IV Last administered on 01:50; Admin Dose 20 MLS/HR; Start 08/08/16 at 07:00 Pantoprazole (Protonix Iv) 40 mg DAILY@06 IV Last administered on 08/17/16 05: 04; Admin Dose 40 MG; Start 08/10/16 at 06:00 Sucralfate (Carafate) 1 gm QID NGT Last administered on 08/17/16 17:39; Admin Dose 1 GM; Start 08/09/16 at 21:00 Apixaban (Eliquis) 2.5 mg BID PO Last administered on 08/17/16 09:10; Admin Dose 2.5 MG; Start 08/10/16 at 21:00 IV Flush (NS 10 ml) 10 ml PRN PRN IV IV PROTOCOL; Start 08/11/16 at 17:00 Hydralazine HCl (Apresoline) 10 mg Q8 PO Last administered on 08/17/16 13:41; Admin Dose 10 MG; Start 08/13/16 at 14:00 Amiodarone HCl (Cordarone) 200 mg BID NGT Last administered on 08/14/16 13:55 ; Admin Dose 200 MG; Start 08/13/16 at 21:00; Status Future Hold Promethazine HCl/ Dextromethorphan (Phenergan-Dm) 5 ml Q4H PRN PO COUGH; Start 08/14/16 at 16:30 Diagnostic Test (Pha) (Accucheck) 1 ea 02 XX ; Start 08/15/16 at 02:00 Miscellaneous Information 1 ea NOTE XX ; Start 08/14/16 at 20:00 Glucose (Glutose) 15 gm Q15M PRN PO DECREASED GLUCOSE; Start 08/14/16 at 20:00 Glucose (Glutose) 22.5 gm Q15M PRN PO DECREASED GLUCOSE; Start 08/14/16 at 20: 00 Dextrose (D50w Syringe) 25 ml Q15M PRN IV DECREASED GLUCOSE; Start 08/14/16 at 20:00 Dextrose (D50w Syringe) 50 ml Q15M PRN IV DECREASED GLUCOSE; Start 08/14/16 at 20:00 Glucagon (Glucagen) 1 mg Q15M PRN IM DECREASED GLUCOSE; Start 08/14/16 at 20:00 Glucose (Glutose) 15 gm Q15M PRN BUCCAL DECREASED GLUCOSE; Start 08/14/16 at 20 :00 Potassium Chloride (Potassium Chloride Pwd/Soln) 20 meq BID PO Last administered on 08/17/16 09:05; Admin Dose 20 MEQ; Start 08/16/16 at 21:00 YANIRA HART MD Aug 17, 2016 17:45
[2016-08-18 03:30] VITALS: BP 93/45; RESP 17
[2016-08-18] MEDS: FUROSEMIDE 40 MG INJ IV SCH ×2 (04:28→17:50)
[2016-08-18] MEDS: PANTOPRAZOLE 40 MG INJ IV SCH (04:28)
[2016-08-18 07:25] VITALS: BP 112/55; RESP 18
[2016-08-18 07:32] LABS: ADD SCAN DIFF NO
[2016-08-18] MEDS: SOD CHLORIDE 0.45% 1,000 ML IV SCH (07:40)
[2016-08-18 07:52] LABS: POTASSIUM 3.8 mmol/L (3.5-5.1)
[2016-08-18 07:55] LABS: CREATININE 1.01 mg/dl (0.61-1.24)
[2016-08-18] MEDS: INSULIN ASPART [NOVOLOG] 3 ML PEN SC SCH ×4 (07:55→20:49)
[2016-08-18 07:56] LABS: ABNORMAL IP MESSAGE 1; BASOPHILS % 0.2 % (0.0-2.0); CALCIUM 8.2 mg/dl (8.4-10.2); EOSINOPHILS # 0.1 10^3/ul (0.0-0.5); EOSINOPHILS % 2.7 % (0.0-7.0); HEMATOCRIT 33.8 % (42.0-52.0); HEMOGLOBIN 9.8 g/dl (14.0-18.0); LYMPHOCYTES # 0.8 10^3/ul (0.8-2.9); LYMPHOCYTES % 15.4 % (15.0-51.0); MAGNESIUM 1.4 mg/dl (1.7-2.5); MEAN CORPUSCULAR HEMOGLOBIN 24.9 pg (29.0-33.0); MEAN PLATELET VOLUME 10.1 fl (7.4-10.4); MONOCYTE # 0.3 10^3/ul (0.3-0.9); NEUTROPHIL # 3.6 10^3/ul (1.6-7.5); NEUTROPHILS % 74.3 % (39.0-77.0); PLATELET COUNT 347 10^3/UL (140-415); RED BLOOD COUNT 3.93 10^6/ul (4.70-6.10); RED CELL DISTRIBUTION WIDTH 23.1 % (11.5-14.5); WHITE BLOOD COUNT 4.9 10^3/ul (4.8-10.8)
[2016-08-18] MEDS: SUCRALFATE 1 GM TAB NGT SCH ×4 (08:43→20:48)
[2016-08-18] MEDS: POTASSIUM CHLORIDE 20 MEQ POWDER FOR ORAL SOLN PO SCH ×2 (08:43→20:48)
[2016-08-18] MEDS: APIXABAN 5 MG TABLET PO SCH ×2 (08:43→20:49)
[2016-08-18] MEDS: ACETAMINOPHEN 325 MG TAB PO PRN ×2 (09:51→20:48)
--- NOTE | 2016-08-18 10:51 | CONS ---
Date/Time of Note Date/Time of Note DATE: 08/18/16 TIME: 10:49 Assessment/Plan Assessment/Plan Additional Assessment/Plan Assessment recommendations; 1. Patient admitted for respiratory failure due to CHF exacerbation with marked overall clinical improvement. 2. Some element of aspiration pneumonia clinically resolved. Off antibiotics. 3. Acute renal injury with normalization of serum creatinine. 4. Prior history of coronary artery bypass surgery. Continue current treatment. Patient can be discharged home. Consultation Date/Type/Reason Admit Date/Time Jul 18, 2016 at 14:06 Initial Consult Date 08/06/16 Type of Consultation: Pulmonary Referring Provider: MURIEL EWING 24 HR Interval Summary Free Text/Dictation Patient condition is continually improving. He is currently sitting in chair by bedside had any shortness of breath, chest pain, cough, wheezing. Able to eat well. General exam; elderly male, currently in no distress awake and alert. Exam/Review of Systems Vital Signs Vitals Vital Signs Date Time Temp Pulse Resp B/P Pulse Ox O2 Delivery O2 Flow Rate FiO2 08/18/16 09:55 Nasal Cannula 2.0 08/18/16 07:25 97.7 60 18 112/55 100 Intake and Output 08/17/16 08/17/16 08/18/16 15:00 23:00 07:00 Intake Total 900 ml 240 ml Output Total 800 ml 700 ml Balance 100 ml -460 ml Exam H EENT exam; supple neck, positive JVD. No lymphadenopathy. Midline trachea. No thyromegaly. Pharynx is clear. Patient has only a few remaining teeth in the lower jaw. Pupils are small bilaterally. Chest examination; diminished but clear breath sounds bilaterally. S1-S2 audible, no murmurs. Regular rhythm. There is a well-healed sternal scar. Abdomen examination; soft, nondistended no organomegaly bowel sounds audible. Extremity exam is; no peripheral edema. Next EDI DEVELOPER examination; no focal deficit. Results Result Diagram: 08/18/16 0650 08/18/16 0650 Results 24 hrs Laboratory Tests Test 08/17/16 11:48 08/17/16 17:16 08/17/16 21:19 08/18/16 06:50 Bedside Glucose 161 90 139 Anion Gap 11 Basophils # 0.0 Basophils % 0.2 Blood Urea Nitrogen 27 H Calcium Level 8.2 L Carbon Dioxide Level 31 Chloride Level 98 Creatinine 1.01 Eosinophils # 0.1 Eosinophils % 2.7 Glucose Level 87 Hematocrit 33.8 L Hemoglobin 9.8 L Lymphocytes # 0.8 Lymphocytes % 15.4 Magnesium Level 1.4 L Mean Corpuscular Hemoglobin 24.9 L Mean Corpuscular Hemoglobin Concent 29.0 L Mean Corpuscular Volume 86.0 Mean Platelet Volume 10.1 Monocytes # 0.3 Monocytes % 7.0 Neutrophils # 3.6 Neutrophils % 74.3 Nucleated Red Blood Cells # 0.0 Nucleated Red Blood Cells % 0.0 Platelet Count 347 Potassium Level 3.8 Red Blood Count 3.93 L Red Cell Distribution Width 23.1 H Sodium Level 136 White Blood Count 4.9 Test 08/18/16 08:09 Bedside Glucose 89 Medications Medications Current Medications Aspirin (Halfprin) 81 mg DAILY PO Last administered on 08/05/16 09:06; Admin Dose 81 MG; Start 07/19/16 at 09:00; Status Future Hold Nitroglycerin (Nitroglycerin (Sl Tab) 0.4 Mg) 1 tab DAILY PRN SL CHEST PAIN; Start 07/18/16 at 15:30 Ondansetron HCl (Zofran Inj) 4 mg Q6H PRN IV NAUSEA AND/OR VOMITING Last administered on 08/05/16 23:48; Admin Dose 4 MG; Start 07/18/16 at 15:30 Acetaminophen (Tylenol Tab) 650 mg Q6H PRN PO PAIN LEVEL 1-3 OR FEVER Last administered on 08/18/16 09:51; Admin Dose 650 MG; Start 07/18/16 at 15:30 Acetaminophen (Tylenol Supp) 650 mg Q6H PRN [place] PAIN LEVEL 1-3 OR FEVER; Start 07/18/16 at 15:30 Docusate Sodium (Colace) 100 mg Q12H PRN PO CONSTIPATION Last administered on 20:19; Admin Dose 100 MG; Start 07/18/16 at 15:30 Magnesium Hydroxide (Milk Of Mag) 30 ml DAILY PRN PO CONSTIPATION Last administered on 07/28/16 23:03; Admin Dose 30 ML; Start 07/18/16 at 15:30 Bisacodyl (Dulcolax Supp) 10 mg DAILY PRN [place] CONSTIPATION Last administered on 08/15/16 01:50; Admin Dose 10 MG; Start 07/18/16 at 15:30 Miscellaneous Information 1 ea NOTE XX ; Start 07/18/16 at 17:30 Glucose (Glutose) 15 gm Q15M PRN PO DECREASED GLUCOSE; Start 07/18/16 at 17:30 Glucose (Glutose) 22.5 gm Q15M PRN PO DECREASED GLUCOSE; Start 07/18/16 at 17: 30 Dextrose (D50w Syringe) 25 ml Q15M PRN IV DECREASED GLUCOSE; Start 07/18/16 at 17:30 Dextrose (D50w Syringe) 50 ml Q15M PRN IV DECREASED GLUCOSE; Start 07/18/16 at 17:30 Glucagon (Glucagen) 1 mg Q15M PRN IM DECREASED GLUCOSE; Start 07/18/16 at 17:30 Glucose (Glutose) 15 gm Q15M PRN BUCCAL DECREASED GLUCOSE; Start 07/18/16 at 17 :30 Guaifenesin/ Codeine Phosphate (Robitussin Ac Liquid Cup) 10 ml Q4H PRN PO COUGH Last administered on 07/19/16 19:43; Admin Dose 10 ML; Start 07/18/16 at 23:30 Carvedilol (Coreg) 3.125 mg BID PO Last administered on 08/03/16 20:05; Admin Dose 3.125 MG; Start 07/24/16 at 09:00; Status Future Hold Isosorbide Dinitrate 10 mg 10 mg TID PO Last administered on 08/03/16 19:58; Admin Dose 10 MG; Start 07/30/16 at 21:00; Status Future Hold Sodium Chloride (1/2 NS) 1,000 ml @ 20 mls/hr Q24H IV Last administered on 01:50; Admin Dose 20 MLS/HR; Start 08/08/16 at 07:00 Pantoprazole (Protonix Iv) 40 mg DAILY@06 IV Last administered on 08/18/16 04: 28; Admin Dose 40 MG; Start 08/10/16 at 06:00 Sucralfate (Carafate) 1 gm QID NGT Last administered on 08/18/16 08:43; Admin Dose 1 GM; Start 08/09/16 at 21:00 Apixaban (Eliquis) 2.5 mg BID PO Last administered on 08/18/16 08:43; Admin Dose 2.5 MG; Start 08/10/16 at 21:00 IV Flush (NS 10 ml) 10 ml PRN PRN IV IV PROTOCOL; Start 08/11/16 at 17:00 Hydralazine HCl (Apresoline) 10 mg Q8 PO Last administered on 08/17/16 21:21; Admin Dose 10 MG; Start 08/13/16 at 14:00 Amiodarone HCl (Cordarone) 200 mg BID NGT Last administered on 08/14/16 13:55 ; Admin Dose 200 MG; Start 08/13/16 at 21:00; Status Future Hold Promethazine HCl/ Dextromethorphan (Phenergan-Dm) 5 ml Q4H PRN PO COUGH; Start 08/14/16 at 16:30 Diagnostic Test (Pha) (Accucheck) 1 ea 02 XX ; Start 08/15/16 at 02:00 Miscellaneous Information 1 ea NOTE XX ; Start 08/14/16 at 20:00 Glucose (Glutose) 15 gm Q15M PRN PO DECREASED GLUCOSE; Start 08/14/16 at 20:00 Glucose (Glutose) 22.5 gm Q15M PRN PO DECREASED GLUCOSE; Start 08/14/16 at 20: 00 Dextrose (D50w Syringe) 25 ml Q15M PRN IV DECREASED GLUCOSE; Start 08/14/16 at 20:00 Dextrose (D50w Syringe) 50 ml Q15M PRN IV DECREASED GLUCOSE; Start 08/14/16 at 20:00 Glucagon (Glucagen) 1 mg Q15M PRN IM DECREASED GLUCOSE; Start 08/14/16 at 20:00 Glucose (Glutose) 15 gm Q15M PRN BUCCAL DECREASED GLUCOSE; Start 08/14/16 at 20 :00 Potassium Chloride (Potassium Chloride Pwd/Soln) 20 meq BID PO Last administered on 08/18/16 08:43; Admin Dose 20 MEQ; Start 08/16/16 at 21:00 ADAMARIS RAMIREZ Aug 18, 2016 10:51
[2016-08-18 11:30] VITALS: BP 110/53; RESP 17
[2016-08-18] MEDS ORDERED: MAGNESIUM SULFATE 2 GM/50 ML 50 ML IVPB ONE (11:30)
--- NOTE | 2016-08-18 13:53 | PN ---
Date/Time of Note Date/Time of Note DATE: 08/18/16 TIME: 13:49 Assessment/Plan VTE Prophylaxis VTE Prophylaxis Intervention: SCD's Lines/Catheters IV Catheter Type (from Nrs): PICC Line Central line still needed: Yes Urinary Cath still in place: Yes Reason Cath still needed: other (indicate) Assessment/Plan Chief Complaint/Hosp Course Chief Complaint/Hosp Course 1. Acute Resp failure secondary to pulmonary edema and possible aspiration pneumonia-now extubated, stable in room air Status post Zosyn and vancomycin Pulmonology on case 2. Acute on chronic congestive heart failure Status post dialysis for volume overload, continue Lasix IV 3. 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 Type 2 diabetes-stable Insulin sliding scale 5. Atrial fibrillation, rate controlled 6. History of CAD status post CABG 7. Acute on likely chronic kidney disease 2/2 cardiorenal syndrome Continue hemodialysis as per nephrology At this time patient creatinine has been improving and hemodialysis on hold 8. Acute encephalopathy secondary to uremic syndrome now improved with dialysis According to the family patient's mentation is back to baseline Speech therapy bedside swallow eval done patient is tolerating a p.o. diet 9. Debility secondary to comorbidities Continue PT, patient cannot ambulate need to go to a rehab center, outsole caser aware 10. Cough possibly secondary to pulmonary edema with rapid removal of volume from the lung-Improved Phenergan as needed PPx- on Eliquis certified wellness program manager consult for acute rehab versus long-term facility placement Problems: Subjective 24 Hr Interval Summary Free Text/Dictation Patient continues to have difficulty with ambulation Max assist with ambulation Denies of any chest pain or shortness of breath Tolerating oral intake Exam/Review of Systems Vital Signs Vitals Vital Signs Date Time Temp Pulse Resp B/P Pulse Ox O2 Delivery O2 Flow Rate FiO2 08/18/16 11:30 98.0 63 17 110/53 100 08/18/16 09:55 Nasal Cannula 2.0 Intake and Output 08/17/16 08/17/16 08/18/16 15:00 23:00 07:00 Intake Total 900 ml 240 ml Output Total 800 ml 700 ml Balance 100 ml -460 ml Exam General: The patient is well-developed, Not in acute distress. HEENT: Atraumatic, normocephalic. The pupils are equal and round . Neck: Supple with full range of motion. Chest: Normal expansion of the thorax during inspiration Lungs: Clear to auscultation bilaterally Heart: Normal S1-S2, Regular rhythm and rate. Abdomen: Soft , nontender, nondistended , bowel sounds are present. Extremities: Normal to inspection, no edema no cyanosis Neurologic: Normal mental status,The patient is awake, alert and oriented . Results Result Diagram: 08/18/16 0650 08/18/16 0650 Results 24 hrs Laboratory Tests Test 08/17/16 17:16 08/17/16 21:19 08/18/16 06:50 08/18/16 08:09 Bedside Glucose 90 139 89 Anion Gap 11 Basophils # 0.0 Basophils % 0.2 Blood Urea Nitrogen 27 H Calcium Level 8.2 L Carbon Dioxide Level 31 Chloride Level 98 Creatinine 1.01 Eosinophils # 0.1 Eosinophils % 2.7 Glucose Level 87 Hematocrit 33.8 L Hemoglobin 9.8 L Lymphocytes # 0.8 Lymphocytes % 15.4 Magnesium Level 1.4 L Mean Corpuscular Hemoglobin 24.9 L Mean Corpuscular Hemoglobin Concent 29.0 L Mean Corpuscular Volume 86.0 Mean Platelet Volume 10.1 Monocytes # 0.3 Monocytes % 7.0 Neutrophils # 3.6 Neutrophils % 74.3 Nucleated Red Blood Cells # 0.0 Nucleated Red Blood Cells % 0.0 Platelet Count 347 Potassium Level 3.8 Red Blood Count 3.93 L Red Cell Distribution Width 23.1 H Sodium Level 136 White Blood Count 4.9 Test 08/18/16 11:46 Bedside Glucose 156 Medications Medications Current Medications Aspirin (Halfprin) 81 mg DAILY PO Last administered on 08/05/16 09:06; Admin Dose 81 MG; Start 07/19/16 at 09:00; Status Future Hold Nitroglycerin (Nitroglycerin (Sl Tab) 0.4 Mg) 1 tab DAILY PRN SL CHEST PAIN; Start 07/18/16 at 15:30 Ondansetron HCl (Zofran Inj) 4 mg Q6H PRN IV NAUSEA AND/OR VOMITING Last administered on 08/05/16 23:48; Admin Dose 4 MG; Start 07/18/16 at 15:30 Acetaminophen (Tylenol Tab) 650 mg Q6H PRN PO PAIN LEVEL 1-3 OR FEVER Last administered on 08/18/16 09:51; Admin Dose 650 MG; Start 07/18/16 at 15:30 Acetaminophen (Tylenol Supp) 650 mg Q6H PRN [place] PAIN LEVEL 1-3 OR FEVER; Start 07/18/16 at 15:30 Docusate Sodium (Colace) 100 mg Q12H PRN PO CONSTIPATION Last administered on 20:19; Admin Dose 100 MG; Start 07/18/16 at 15:30 Magnesium Hydroxide (Milk Of Mag) 30 ml DAILY PRN PO CONSTIPATION Last administered on 07/28/16 23:03; Admin Dose 30 ML; Start 07/18/16 at 15:30 Bisacodyl (Dulcolax Supp) 10 mg DAILY PRN [place] CONSTIPATION Last administered on 08/15/16 01:50; Admin Dose 10 MG; Start 07/18/16 at 15:30 Miscellaneous Information 1 ea NOTE XX ; Start 07/18/16 at 17:30 Glucose (Glutose) 15 gm Q15M PRN PO DECREASED GLUCOSE; Start 07/18/16 at 17:30 Glucose (Glutose) 22.5 gm Q15M PRN PO DECREASED GLUCOSE; Start 07/18/16 at 17: 30 Dextrose (D50w Syringe) 25 ml Q15M PRN IV DECREASED GLUCOSE; Start 07/18/16 at 17:30 Dextrose (D50w Syringe) 50 ml Q15M PRN IV DECREASED GLUCOSE; Start 07/18/16 at 17:30 Glucagon (Glucagen) 1 mg Q15M PRN IM DECREASED GLUCOSE; Start 07/18/16 at 17:30 Glucose (Glutose) 15 gm Q15M PRN BUCCAL DECREASED GLUCOSE; Start 07/18/16 at 17 :30 Guaifenesin/ Codeine Phosphate (Robitussin Ac Liquid Cup) 10 ml Q4H PRN PO COUGH Last administered on 07/19/16 19:43; Admin Dose 10 ML; Start 07/18/16 at 23:30 Carvedilol (Coreg) 3.125 mg BID PO Last administered on 08/03/16 20:05; Admin Dose 3.125 MG; Start 07/24/16 at 09:00; Status Future Hold Isosorbide Dinitrate 10 mg 10 mg TID PO Last administered on 08/03/16 19:58; Admin Dose 10 MG; Start 07/30/16 at 21:00; Status Future Hold Sodium Chloride (1/2 NS) 1,000 ml @ 20 mls/hr Q24H IV Last administered on 01:50; Admin Dose 20 MLS/HR; Start 08/08/16 at 07:00 Pantoprazole (Protonix Iv) 40 mg DAILY@06 IV Last administered on 08/18/16 04: 28; Admin Dose 40 MG; Start 08/10/16 at 06:00 Sucralfate (Carafate) 1 gm QID NGT Last administered on 08/18/16 12:20; Admin Dose 1 GM; Start 08/09/16 at 21:00 Apixaban (Eliquis) 2.5 mg BID PO Last administered on 08/18/16 08:43; Admin Dose 2.5 MG; Start 08/10/16 at 21:00 IV Flush (NS 10 ml) 10 ml PRN PRN IV IV PROTOCOL; Start 08/11/16 at 17:00 Hydralazine HCl (Apresoline) 10 mg Q8 PO Last administered on 08/17/16 21:21; Admin Dose 10 MG; Start 08/13/16 at 14:00 Amiodarone HCl (Cordarone) 200 mg BID NGT Last administered on 08/14/16 13:55 ; Admin Dose 200 MG; Start 08/13/16 at 21:00; Status Future Hold Promethazine HCl/ Dextromethorphan (Phenergan-Dm) 5 ml Q4H PRN PO COUGH; Start 08/14/16 at 16:30 Diagnostic Test (Pha) (Accucheck) 1 ea 02 XX ; Start 08/15/16 at 02:00 Miscellaneous Information 1 ea NOTE XX ; Start 08/14/16 at 20:00 Glucose (Glutose) 15 gm Q15M PRN PO DECREASED GLUCOSE; Start 08/14/16 at 20:00 Glucose (Glutose) 22.5 gm Q15M PRN PO DECREASED GLUCOSE; Start 08/14/16 at 20: 00 Dextrose (D50w Syringe) 25 ml Q15M PRN IV DECREASED GLUCOSE; Start 08/14/16 at 20:00 Dextrose (D50w Syringe) 50 ml Q15M PRN IV DECREASED GLUCOSE; Start 08/14/16 at 20:00 Glucagon (Glucagen) 1 mg Q15M PRN IM DECREASED GLUCOSE; Start 08/14/16 at 20:00 Glucose (Glutose) 15 gm Q15M PRN BUCCAL DECREASED GLUCOSE; Start 08/14/16 at 20 :00 Potassium Chloride (Potassium Chloride Pwd/Soln) 20 meq BID PO Last administered on 08/18/16t 08:43; Admin Dose 20 MEQ; Start 08/16/16 at 21:00 HAKAN REINA MD Aug 18, 2016 13:53
[2016-08-18] MEDS: MAGNESIUM HYDROXIDE 30ML CUP PO PRN (15:27)
[2016-08-18 15:29] VITALS: BP 123/50; RESP 20
--- NOTE | 2016-08-18 15:57 | CONS ---
Date/Time of Note Date/Time of Note DATE: 08/18/16 TIME: 15:56 Assessment/Plan Assessment/Plan Additional Assessment/Plan 1. Congestive heart failure exacerbation, systolic, acute on chronic. EF 25% by most recent echo-worsening. Minimally + troponin after cardiac arrest - will monitor clinically for now. STABLE OVERALL - con't MED rx. NO CP now - improved fluid status. 2. Resp failure s/p intubation - pulmonary team follows. Still some SOB noted. 3. Hypotension/shock- BP improved now 3. History of coronary artery bypass graft surgery. NO CP- no intervention planned now. 4. Abnormal electrocardiogram . MIldly postive trop after cardiac arrest 5. History of paroxysmal atrial fibrillation-on apixaban - in a . fib/paced. 6. Acute on chronic renal failure-Now on HD 8. Anemia, mild. 9. Coagulopathy secondary to apixaban- improving 10.Hematuria - H/H stable Consultation Date/Type/Reason Admit Date/Time Jul 18, 2016 at 14:06 Type of Consultation: Pulmonary Referring Provider: MURIEL EWING 24 HR Interval Summary Free Text/Dictation No acute events - stable on tele - con't to keep euvolemic. ROS: No fever, no chills, no nausea, no vomiting, no diarrhea/constipation No recent weight changes No chest pain, no PND, no orthopnea No dizziness, blurred vision No thirst, no heat or cold intolerance Exam/Review of Systems Vital Signs Vitals Vital Signs Date Time Temp Pulse Resp B/P Pulse Ox O2 Delivery O2 Flow Rate FiO2 08/18/16 15:29 97.8 62 20 123/50 100 08/18/16 09:55 Nasal Cannula 2.0 Intake and Output 08/17/16 08/17/16 08/18/16 15:00 23:00 07:00 Intake Total 900 ml 240 ml Output Total 800 ml 700 ml Balance 100 ml -460 ml Exam General: WN/WD/NAD, AOx 0 HEENT: Unicetric/atraumatic/EOMI (does not follow commands) NECK: JVD elevated, no thyromegaly Lymph: no lymphadenopathy HEART: regular with no S3, II/ systolic murmur at apex,pacer LUNGS: Coarse sounds ABD: soft, NT, ND, +BS : Intact Neuro: non focal SKIN: chronic changes EXT: trace edema Results Result Diagram: 08/18/16 0650 08/18/16 0650 Results 24 hrs Laboratory Tests Test 08/17/16 17:16 08/17/16 21:19 08/18/16 06:50 08/18/16 08:09 Bedside Glucose 90 139 89 Anion Gap 11 Basophils # 0.0 Basophils % 0.2 Blood Urea Nitrogen 27 H Calcium Level 8.2 L Carbon Dioxide Level 31 Chloride Level 98 Creatinine 1.01 Eosinophils # 0.1 Eosinophils % 2.7 Glucose Level 87 Hematocrit 33.8 L Hemoglobin 9.8 L Lymphocytes # 0.8 Lymphocytes % 15.4 Magnesium Level 1.4 L Mean Corpuscular Hemoglobin 24.9 L Mean Corpuscular Hemoglobin Concent 29.0 L Mean Corpuscular Volume 86.0 Mean Platelet Volume 10.1 Monocytes # 0.3 Monocytes % 7.0 Neutrophils # 3.6 Neutrophils % 74.3 Nucleated Red Blood Cells # 0.0 Nucleated Red Blood Cells % 0.0 Platelet Count 347 Potassium Level 3.8 Red Blood Count 3.93 L Red Cell Distribution Width 23.1 H Sodium Level 136 White Blood Count 4.9 Test 08/18/16 11:46 Bedside Glucose 156 Medications Medications Current Medications Aspirin (Halfprin) 81 mg DAILY PO Last administered on 08/05/16 09:06; Admin Dose 81 MG; Start 07/19/16 at 09:00; Status Future Hold Nitroglycerin (Nitroglycerin (Sl Tab) 0.4 Mg) 1 tab DAILY PRN SL CHEST PAIN; Start 07/18/16 at 15:30 Ondansetron HCl (Zofran Inj) 4 mg Q6H PRN IV NAUSEA AND/OR VOMITING Last administered on 08/05/16 23:48; Admin Dose 4 MG; Start 07/18/16 at 15:30 Acetaminophen (Tylenol Tab) 650 mg Q6H PRN PO PAIN LEVEL 1-3 OR FEVER Last administered on 08/18/16 09:51; Admin Dose 650 MG; Start 07/18/16 at 15:30 Acetaminophen (Tylenol Supp) 650 mg Q6H PRN [place] PAIN LEVEL 1-3 OR FEVER; Start 07/18/16 at 15:30 Docusate Sodium (Colace) 100 mg Q12H PRN PO CONSTIPATION Last administered on 20:19; Admin Dose 100 MG; Start 07/18/16 at 15:30 Magnesium Hydroxide (Milk Of Mag) 30 ml DAILY PRN PO CONSTIPATION Last administered on 08/18/16 15:27; Admin Dose 30 ML; Start 07/18/16 at 15:30 Bisacodyl (Dulcolax Supp) 10 mg DAILY PRN [place] CONSTIPATION Last administered on 08/15/16 01:50; Admin Dose 10 MG; Start 07/18/16 at 15:30 Miscellaneous Information 1 ea NOTE XX ; Start 07/18/16 at 17:30 Glucose (Glutose) 15 gm Q15M PRN PO DECREASED GLUCOSE; Start 07/18/16 at 17:30 Glucose (Glutose) 22.5 gm Q15M PRN PO DECREASED GLUCOSE; Start 07/18/16 at 17: 30 Dextrose (D50w Syringe) 25 ml Q15M PRN IV DECREASED GLUCOSE; Start 07/18/16 at 17:30 Dextrose (D50w Syringe) 50 ml Q15M PRN IV DECREASED GLUCOSE; Start 07/18/16 at 17:30 Glucagon (Glucagen) 1 mg Q15M PRN IM DECREASED GLUCOSE; Start 07/18/16 at 17:30 Glucose (Glutose) 15 gm Q15M PRN BUCCAL DECREASED GLUCOSE; Start 07/18/16 at 17 :30 Guaifenesin/ Codeine Phosphate (Robitussin Ac Liquid Cup) 10 ml Q4H PRN PO COUGH Last administered on 07/19/16 19:43; Admin Dose 10 ML; Start 07/18/16 at 23:30 Carvedilol (Coreg) 3.125 mg BID PO Last administered on 08/03/16 20:05; Admin Dose 3.125 MG; Start 07/24/16 at 09:00; Status Future Hold Isosorbide Dinitrate 10 mg 10 mg TID PO Last administered on 08/03/16 19:58; Admin Dose 10 MG; Start 07/30/16 at 21:00; Status Future Hold Sodium Chloride (1/2 NS) 1,000 ml @ 20 mls/hr Q24H IV Last administered on 01:50; Admin Dose 20 MLS/HR; Start 08/08/16 at 07:00 Pantoprazole (Protonix Iv) 40 mg DAILY@06 IV Last administered on 08/18/16 04: 28; Admin Dose 40 MG; Start 08/10/16 at 06:00 Sucralfate (Carafate) 1 gm QID NGT Last administered on 08/18/16 12:20; Admin Dose 1 GM; Start 08/09/16 at 21:00 Apixaban (Eliquis) 2.5 mg BID PO Last administered on 08/18/16 08:43; Admin Dose 2.5 MG; Start 08/10/16 at 21:00 IV Flush (NS 10 ml) 10 ml PRN PRN IV IV PROTOCOL; Start 08/11/16 at 17:00 Hydralazine HCl (Apresoline) 10 mg Q8 PO Last administered on 08/18/16 15:15; Admin Dose 10 MG; Start 08/13/16 at 14:00 Amiodarone HCl (Cordarone) 200 mg BID NGT Last administered on 08/14/16 13:55 ; Admin Dose 200 MG; Start 08/13/16 at 21:00; Status Future Hold Promethazine HCl/ Dextromethorphan (Phenergan-Dm) 5 ml Q4H PRN PO COUGH; Start 08/14/16 at 16:30 Diagnostic Test (Pha) (Accucheck) 1 ea 02 XX ; Start 08/15/16 at 02:00 Miscellaneous Information 1 ea NOTE XX ; Start 08/14/16 at 20:00 Glucose (Glutose) 15 gm Q15M PRN PO DECREASED GLUCOSE; Start 08/14/16 at 20:00 Glucose (Glutose) 22.5 gm Q15M PRN PO DECREASED GLUCOSE; Start 08/14/16 at 20: 00 Dextrose (D50w Syringe) 25 ml Q15M PRN IV DECREASED GLUCOSE; Start 08/14/16 at 20:00 Dextrose (D50w Syringe) 50 ml Q15M PRN IV DECREASED GLUCOSE; Start 08/14/16 at 20:00 Glucagon (Glucagen) 1 mg Q15M PRN IM DECREASED GLUCOSE; Start 08/14/16 at 20:00 Glucose (Glutose) 15 gm Q15M PRN BUCCAL DECREASED GLUCOSE; Start 08/14/16 at 20 :00 Potassium Chloride (Potassium Chloride Pwd/Soln) 20 meq BID PO Last administered on 08/18/16 08:43; Admin Dose 20 MEQ; Start 08/16/16 at 21:00 DODIE OLMSTEAD MD Aug 18, 2016 15:57
--- NOTE | 2016-08-18 18:09 | RADRPT ---
Vent Rate: 65 bpm RR Interval: 0 msec NV Interval: 0 msec QRS Duration: 228 msec QT Interval: 510 msec QTC Interval: 530 msec P-R-T [place]: 0 - -36 - 128 degrees Electronic ventricular pacemaker Electronically Signed By: Andrews Osman [id number]
[2016-08-18 20:10] VITALS: BP 118/50; RESP 18
[2016-08-18] MEDS: ACCU-CHEK XX SCH (20:49)
--- NOTE | 2016-08-18 23:07 | CONS ---
Date/Time of Note Date/Time of Note DATE: 08/18/16 TIME: 23:06 Assessment/Plan Assessment/Plan Chief Complaint/Hosp Course 1. Patient has acute on chronic renal failure with acute kidney injury due to systolic heart failure. BETTER 2. The patient has low ef now s/p vent/cardio renal syndrome s/p extubation 3. Anemia. 4. ASHD 5. Acute urinary tract infection.better 6 LOW EF 7 hyperkalemia HX 8 afib 9 hematuria HX plan will hold hd for now and observe ,ck bmp if renal fn gets worse will need permacath lasix tid amitiza Problems: Consultation Date/Type/Reason Admit Date/Time Jul 18, 2016 at 14:06 Type of Consultation: renal Referring Provider: MURIEL EWING 24 HR Interval Summary Constitutional: other (constipation+) Exam/Review of Systems Vital Signs Vitals Vital Signs Date Time Temp Pulse Resp B/P Pulse Ox O2 Delivery O2 Flow Rate FiO2 08/18/16 21:51 Nasal Cannula 2.0 08/18/16 20:10 98.0 61 18 118/50 100 Intake and Output 08/17/16 08/17/16 08/18/16 15:00 23:00 07:00 Intake Total 900 ml 240 ml Output Total 800 ml 700 ml Balance 100 ml -460 ml Exam Neck: supple Respiratory: diminished breath sounds Cardiovascular: regular rate and rhythm Gastrointestinal: bowel sounds, soft Extremities: edema (tr) Results Result Diagram: 08/18/16 0650 08/18/16 0650 Results 24 hrs Laboratory Tests Test 08/18/16 06:50 08/18/16 08:09 08/18/16 11:46 08/18/16 17:25 Anion Gap 11 Basophils # 0.0 Basophils % 0.2 Blood Urea Nitrogen 27 H Calcium Level 8.2 L Carbon Dioxide Level 31 Chloride Level 98 Creatinine 1.01 Eosinophils # 0.1 Eosinophils % 2.7 Glucose Level 87 Hematocrit 33.8 L Hemoglobin 9.8 L Lymphocytes # 0.8 Lymphocytes % 15.4 Magnesium Level 1.4 L Mean Corpuscular Hemoglobin 24.9 L Mean Corpuscular Hemoglobin Concent 29.0 L Mean Corpuscular Volume 86.0 Mean Platelet Volume 10.1 Monocytes # 0.3 Monocytes % 7.0 Neutrophils # 3.6 Neutrophils % 74.3 Nucleated Red Blood Cells # 0.0 Nucleated Red Blood Cells % 0.0 Platelet Count 347 Potassium Level 3.8 Red Blood Count 3.93 L Red Cell Distribution Width 23.1 H Sodium Level 136 White Blood Count 4.9 Bedside Glucose 89 156 107 Test 08/18/16 20:48 Bedside Glucose 102 Medications Medications Current Medications Aspirin (Halfprin) 81 mg DAILY PO Last administered on 08/05/16 09:06; Admin Dose 81 MG; Start 07/19/16 at 09:00; Status Future Hold Nitroglycerin (Nitroglycerin (Sl Tab) 0.4 Mg) 1 tab DAILY PRN SL CHEST PAIN; Start 07/18/16 at 15:30 Ondansetron HCl (Zofran Inj) 4 mg Q6H PRN IV NAUSEA AND/OR VOMITING Last administered on 08/05/16 23:48; Admin Dose 4 MG; Start 07/18/16 at 15:30 Acetaminophen (Tylenol Tab) 650 mg Q6H PRN PO PAIN LEVEL 1-3 OR FEVER Last administered on 08/18/16 20:48; Admin Dose 650 MG; Start 07/18/16 at 15:30 Acetaminophen (Tylenol Supp) 650 mg Q6H PRN [place] PAIN LEVEL 1-3 OR FEVER; Start 07/18/16 at 15:30 Docusate Sodium (Colace) 100 mg Q12H PRN PO CONSTIPATION Last administered on 20:19; Admin Dose 100 MG; Start 07/18/16 at 15:30 Magnesium Hydroxide (Milk Of Mag) 30 ml DAILY PRN PO CONSTIPATION Last administered on 08/18/16 15:27; Admin Dose 30 ML; Start 07/18/16 at 15:30 Bisacodyl (Dulcolax Supp) 10 mg DAILY PRN [place] CONSTIPATION Last administered on 08/15/16 01:50; Admin Dose 10 MG; Start 07/18/16 at 15:30 Miscellaneous Information 1 ea NOTE XX ; Start 07/18/16 at 17:30 Glucose (Glutose) 15 gm Q15M PRN PO DECREASED GLUCOSE; Start 07/18/16 at 17:30 Glucose (Glutose) 22.5 gm Q15M PRN PO DECREASED GLUCOSE; Start 07/18/16 at 17: 30 Dextrose (D50w Syringe) 25 ml Q15M PRN IV DECREASED GLUCOSE; Start 07/18/16 at 17:30 Dextrose (D50w Syringe) 50 ml Q15M PRN IV DECREASED GLUCOSE; Start 07/18/16 at 17:30 Glucagon (Glucagen) 1 mg Q15M PRN IM DECREASED GLUCOSE; Start 07/18/16 at 17:30 Glucose (Glutose) 15 gm Q15M PRN BUCCAL DECREASED GLUCOSE; Start 07/18/16 at 17 :30 Guaifenesin/ Codeine Phosphate (Robitussin Ac Liquid Cup) 10 ml Q4H PRN PO COUGH Last administered on 07/19/16 19:43; Admin Dose 10 ML; Start 07/18/16 at 23:30 Carvedilol (Coreg) 3.125 mg BID PO Last administered on 08/03/16 20:05; Admin Dose 3.125 MG; Start 07/24/16 at 09:00; Status Future Hold Isosorbide Dinitrate 10 mg 10 mg TID PO Last administered on 08/03/16 19:58; Admin Dose 10 MG; Start 07/30/16 at 21:00; Status Future Hold Sodium Chloride (1/2 NS) 1,000 ml @ 20 mls/hr Q24H IV Last administered on 01:50; Admin Dose 20 MLS/HR; Start 08/08/16 at 07:00 Pantoprazole (Protonix Iv) 40 mg DAILY@06 IV Last administered on 08/18/16 04: 28; Admin Dose 40 MG; Start 08/10/16 at 06:00 Sucralfate (Carafate) 1 gm QID NGT Last administered on 08/18/16 20:48; Admin Dose 1 GM; Start 08/09/16 at 21:00 Apixaban (Eliquis) 2.5 mg BID PO Last administered on 08/18/16 20:49; Admin Dose 2.5 MG; Start 08/10/16 at 21:00 IV Flush (NS 10 ml) 10 ml PRN PRN IV IV PROTOCOL; Start 08/11/16 at 17:00 Hydralazine HCl (Apresoline) 10 mg Q8 PO Last administered on 08/18/16 20:49; Admin Dose 10 MG; Start 08/13/16 at 14:00 Amiodarone HCl (Cordarone) 200 mg BID NGT Last administered on 08/14/16 13:55 ; Admin Dose 200 MG; Start 08/13/16 at 21:00; Status Future Hold Promethazine HCl/ Dextromethorphan (Phenergan-Dm) 5 ml Q4H PRN PO COUGH; Start 08/14/16 at 16:30 Diagnostic Test (Pha) (Accucheck) 1 ea 02 XX ; Start 08/15/16 at 02:00 Miscellaneous Information 1 ea NOTE XX ; Start 08/14/16 at 20:00 Glucose (Glutose) 15 gm Q15M PRN PO DECREASED GLUCOSE; Start 08/14/16 at 20:00 Glucose (Glutose) 22.5 gm Q15M PRN PO DECREASED GLUCOSE; Start 08/14/16 at 20: 00 Dextrose (D50w Syringe) 25 ml Q15M PRN IV DECREASED GLUCOSE; Start 08/14/16 at 20:00 Dextrose (D50w Syringe) 50 ml Q15M PRN IV DECREASED GLUCOSE; Start 08/14/16 at 20:00 Glucagon (Glucagen) 1 mg Q15M PRN IM DECREASED GLUCOSE; Start 08/14/16 at 20:00 Glucose (Glutose) 15 gm Q15M PRN BUCCAL DECREASED GLUCOSE; Start 08/14/16 at 20 :00 Potassium Chloride (Potassium Chloride Pwd/Soln) 20 meq BID PO Last administered on 08/18/16 20:48; Admin Dose 20 MEQ; Start 08/16/16 at 21:00 YANIRA HART MD Aug 18, 2016 23:07
[2016-08-19] VITALS (7 sets, daily range): BP systolic 103–143; BP diastolic 41–67; PULSE 67; RESP 18–24
--- NOTE | 2016-08-19 01:05 | RADRPT ---
PROCEDURE: XR Chest. CLINICAL INDICATION: Fluid overload. TECHNIQUE: Single frontal view of the chest was obtained COMPARISON: 08/17/2016. FINDINGS: Right PICC line in place with tip in superior vena cava, unchanged in position over interval. Prominent cardiomegaly and see with atherosclerotic calcifications in the thoracic aorta. Left ante rior single chamber cardiac pacer again seen with lead tip again seen over the right atrium. Increased bilateral patchy air space disease. Bilateral pleural effusions are improved. There is no pneumothorax. IMPRESSION: 1. Cardiomegaly with increased bilateral patchy air space disease. 2. Bilateral pleural effusions are improved. RPTAT: [facility] Physician Kari Date Time Electronically viewed and signed by Physician Kari on 08/19/2016 01:05 RS/
[2016-08-19] MEDS: PANTOPRAZOLE 40 MG INJ IV SCH (05:13)
[2016-08-19] MEDS: FUROSEMIDE 40 MG INJ IV SCH ×3 (05:14→21:16)
[2016-08-19] MEDS: SOD CHLORIDE 0.45% 1,000 ML IV SCH (05:15)
[2016-08-19 07:26] LABS: ADD SCAN DIFF NO
[2016-08-19 07:34] LABS: ABNORMAL IP MESSAGE 1; BASOPHILS % 0.4 % (0.0-2.0); EOSINOPHILS # 0.1 10^3/ul (0.0-0.5); EOSINOPHILS % 2.7 % (0.0-7.0); HEMATOCRIT 33.9 % (42.0-52.0); HEMOGLOBIN 9.9 g/dl (14.0-18.0); LYMPHOCYTES # 0.7 10^3/ul (0.8-2.9); LYMPHOCYTES % 15.1 % (15.0-51.0); MEAN CORPUSCULAR HEMOGLOBIN 25.1 pg (29.0-33.0); MEAN CORPUSCULAR HGB CONC 29.2 g/dl (32.0-37.0); MEAN PLATELET VOLUME 10.3 fl (7.4-10.4); MONOCYTE # 0.4 10^3/ul (0.3-0.9); MONOCYTES % 7.4 % (0.0-11.0); NEUTROPHIL # 3.6 10^3/ul (1.6-7.5); NEUTROPHILS % 74.2 % (39.0-77.0); PLATELET COUNT 396 10^3/UL (140-415); RED BLOOD COUNT 3.94 10^6/ul (4.70-6.10); RED CELL DISTRIBUTION WIDTH 23.5 % (11.5-14.5); WHITE BLOOD COUNT 4.9 10^3/ul (4.8-10.8)
[2016-08-19] MEDS: INSULIN ASPART [NOVOLOG] 3 ML PEN SC SCH ×4 (07:55→21:00)
[2016-08-19 07:59] LABS: POTASSIUM 3.8 mmol/L (3.5-5.1)
[2016-08-19 08:01] LABS: CREATININE 0.94 mg/dl (0.61-1.24)
[2016-08-19 08:02] LABS: CALCIUM 8.5 mg/dl (8.4-10.2); MAGNESIUM 1.8 mg/dl (1.7-2.5)
--- NOTE | 2016-08-19 08:16 | RADRPT ---
Vent Rate: 62 bpm RR Interval: 0 msec [place] Interval: 0 msec QRS Duration: 236 msec QT Interval: 534 msec QTC Interval: 542 msec P-R-T [place]: 0 - -58 - 113 degrees Electronic ventricular pacemaker Electronically Signed By: Sidney Perry [id number]
[2016-08-19] MEDS: LUBIPROSTONE 24 MCG CAP PO SCH ×3 (08:53→21:14)
[2016-08-19] MEDS: POTASSIUM CHLORIDE 20 MEQ POWDER FOR ORAL SOLN PO SCH ×2 (08:54→21:15)
[2016-08-19] MEDS: APIXABAN 5 MG TABLET PO SCH ×2 (08:54→21:14)
[2016-08-19] MEDS: SUCRALFATE 1 GM TAB NGT SCH ×4 (08:54→21:14)
--- NOTE | 2016-08-19 10:51 | CONS ---
Date/Time of Note Date/Time of Note DATE: 08/19/16 TIME: 10:49 Assessment/Plan Assessment/Plan Chief Complaint/Hosp Course IMPRESSION: 1. Congestive heart failure exacerbation, systolic, acute on chronic. EF 25% by most recent echo-worsening. Minimally + troponin after cardiac arrest 2. Resp failure s/p intubation 3. Hypotension/shock-on levo and vasopressin 3. History of coronary artery bypass graft surgery. 4. Abnormal electrocardiogram . MIldly postive trop after cardiac arrest 5. History of paroxysmal atrial fibrillation-on apixaban 6. Acute on chronic renal failure-Now on HD 8. Anemia, mild. 9. Coagulopathy secondary to apixaban- improved 10.Hematuria Rec: -tele -Hold amio and follow rhythm as per ECG questionable CHB with V pacing and will check repeat 12 lead today to document rhythm -Continue to hold coreg/isordil -Continue hydralazine low dose afterload reduction as tolerated -Now back on lasix and will follow reverse engineer/volume status closely -HD held -Continue apixaban now that coagulopathy improved -PT/OT Problems: Consultation Date/Type/Reason Admit Date/Time Jul 18, 2016 at 14:06 Initial Consult Date 07/19/2016 Type of Consultation: Cardiology Reason for Consultation CHF Referring Provider: MURIEL EWING Exam/Review of Systems Vital Signs Vitals Vital Signs Date Time Temp Pulse Resp B/P Pulse Ox O2 Delivery O2 Flow Rate FiO2 08/19/16 10:12 Nasal Cannula 2.0 08/19/16 07:44 97.9 61 20 110/58 100 Intake and Output 08/18/16 08/18/16 08/19/16 15:00 23:00 07:00 Intake Total 540 ml 1260 ml Output Total 700 ml 1100 ml Balance -160 ml 160 ml Exam Review of Systems: CONSTITUTIONAL: No fevers, chills. PULMONARY: No sob CARDIOVASCULAR: No chest pain/palpitations GASTROINTESTINAL: No nausea/vomiting. GENITOURINARY: No hematuria/dysuria. MUSCULOSKELETAL: No myagias/arthalgias. PSYCHIATRIC: The patient denies depression. NEUROLOGIC: Lethargic Constitutional: alert Psych: no complaints Head: normocephalic ENMT: mucosa pink and moist Neck: jvd (9 cm water), supple Respiratory: diminished breath sounds (at bases/B) Cardiovascular: regular rate and rhythm Gastrointestinal: non-tender, soft Musculoskeletal: muscle weakness (generalized) Extremities: edema (none) Neurological: lethargic Results Result Diagram: 08/19/16 0640 08/19/16 0640 Results 24 hrs Laboratory Tests Test 08/18/16 11:46 08/18/16 17:25 08/18/16 20:48 08/19/16 06:40 Bedside Glucose 156 107 102 Anion Gap 13 Basophils # 0.0 Basophils % 0.4 Blood Urea Nitrogen 23 H Calcium Level 8.5 Carbon Dioxide Level 31 Chloride Level 97 Creatinine 0.94 Eosinophils # 0.1 Eosinophils % 2.7 Glucose Level 81 Hematocrit 33.9 L Hemoglobin 9.9 L Lymphocytes # 0.7 L Lymphocytes % 15.1 Magnesium Level 1.8 Mean Corpuscular Hemoglobin 25.1 L Mean Corpuscular Hemoglobin Concent 29.2 L Mean Corpuscular Volume 86.0 Mean Platelet Volume 10.3 Monocytes # 0.4 Monocytes % 7.4 Neutrophils # 3.6 Neutrophils % 74.2 Nucleated Red Blood Cells # 0.0 Nucleated Red Blood Cells % 0.0 Platelet Count 396 Potassium Level 3.8 Red Blood Count 3.94 L Red Cell Distribution Width 23.5 H Sodium Level 137 White Blood Count 4.9 Test 08/19/16 07:50 Bedside Glucose 95 Medications Medications Current Medications Aspirin (Halfprin) 81 mg DAILY PO Last administered on 08/05/16 09:06; Admin Dose 81 MG; Start 07/19/16 at 09:00; Status Future Hold Nitroglycerin (Nitroglycerin (Sl Tab) 0.4 Mg) 1 tab DAILY PRN SL CHEST PAIN; Start 07/18/16 at 15:30 Ondansetron HCl (Zofran Inj) 4 mg Q6H PRN IV NAUSEA AND/OR VOMITING Last administered on 08/05/16 23:48; Admin Dose 4 MG; Start 07/18/16 at 15:30 Acetaminophen (Tylenol Tab) 650 mg Q6H PRN PO PAIN LEVEL 1-3 OR FEVER Last administered on 08/18/16 20:48; Admin Dose 650 MG; Start 07/18/16 at 15:30 Acetaminophen (Tylenol Supp) 650 mg Q6H PRN [place] PAIN LEVEL 1-3 OR FEVER; Start 07/18/16 at 15:30 Docusate Sodium (Colace) 100 mg Q12H PRN PO CONSTIPATION Last administered on 20:19; Admin Dose 100 MG; Start 07/18/16 at 15:30 Magnesium Hydroxide (Milk Of Mag) 30 ml DAILY PRN PO CONSTIPATION Last administered on 08/18/16 15:27; Admin Dose 30 ML; Start 07/18/16 at 15:30 Bisacodyl (Dulcolax Supp) 10 mg DAILY PRN [place] CONSTIPATION Last administered on 08/15/16 01:50; Admin Dose 10 MG; Start 07/18/16 at 15:30 Miscellaneous Information 1 ea NOTE XX ; Start 07/18/16 at 17:30 Glucose (Glutose) 15 gm Q15M PRN PO DECREASED GLUCOSE; Start 07/18/16 at 17:30 Glucose (Glutose) 22.5 gm Q15M PRN PO DECREASED GLUCOSE; Start 07/18/16 at 17: 30 Dextrose (D50w Syringe) 25 ml Q15M PRN IV DECREASED GLUCOSE; Start 07/18/16 at 17:30 Dextrose (D50w Syringe) 50 ml Q15M PRN IV DECREASED GLUCOSE; Start 07/18/16 at 17:30 Glucagon (Glucagen) 1 mg Q15M PRN IM DECREASED GLUCOSE; Start 07/18/16 at 17:30 Glucose (Glutose) 15 gm Q15M PRN BUCCAL DECREASED GLUCOSE; Start 07/18/16 at 17 :30 Guaifenesin/ Codeine Phosphate (Robitussin Ac Liquid Cup) 10 ml Q4H PRN PO COUGH Last administered on 07/19/16 19:43; Admin Dose 10 ML; Start 07/18/16 at 23:30 Carvedilol (Coreg) 3.125 mg BID PO Last administered on 08/03/16 20:05; Admin Dose 3.125 MG; Start 07/24/16 at 09:00; Status Future Hold Isosorbide Dinitrate 10 mg 10 mg TID PO Last administered on 08/03/16 19:58; Admin Dose 10 MG; Start 07/30/16 at 21:00; Status Future Hold Sodium Chloride (1/2 NS) 1,000 ml @ 20 mls/hr Q24H IV Last administered on 05:15; Admin Dose 20 MLS/HR; Start 08/08/16 at 07:00 Pantoprazole (Protonix Iv) 40 mg DAILY@06 IV Last administered on 08/19/16 05: 13; Admin Dose 40 MG; Start 08/10/16 at 06:00 Sucralfate (Carafate) 1 gm QID NGT Last administered on 08/19/16 08:54; Admin Dose 1 GM; Start 08/09/16 at 21:00 Apixaban (Eliquis) 2.5 mg BID PO Last administered on 08/19/16 08:54; Admin Dose 2.5 MG; Start 08/10/16 at 21:00 IV Flush (NS 10 ml) 10 ml PRN PRN IV IV PROTOCOL; Start 08/11/16 at 17:00 Hydralazine HCl (Apresoline) 10 mg Q8 PO Last administered on 08/19/16 05:14; Admin Dose 10 MG; Start 08/13/16 at 14:00 Amiodarone HCl (Cordarone) 200 mg BID NGT Last administered on 08/14/16 13:55 ; Admin Dose 200 MG; Start 08/13/16 at 21:00; Status Future Hold Promethazine HCl/ Dextromethorphan (Phenergan-Dm) 5 ml Q4H PRN PO COUGH; Start 08/14/16 at 16:30 Diagnostic Test (Pha) (Accucheck) 1 ea 02 XX ; Start 08/15/16 at 02:00 Miscellaneous Information 1 ea NOTE XX ; Start 08/14/16 at 20:00 Glucose (Glutose) 15 gm Q15M PRN PO DECREASED GLUCOSE; Start 08/14/16 at 20:00 Glucose (Glutose) 22.5 gm Q15M PRN PO DECREASED GLUCOSE; Start 08/14/16 at 20: 00 Dextrose (D50w Syringe) 25 ml Q15M PRN IV DECREASED GLUCOSE; Start 08/14/16 at 20:00 Dextrose (D50w Syringe) 50 ml Q15M PRN IV DECREASED GLUCOSE; Start 08/14/16 at 20:00 Glucagon (Glucagen) 1 mg Q15M PRN IM DECREASED GLUCOSE; Start 08/14/16 at 20:00 Glucose (Glutose) 15 gm Q15M PRN BUCCAL DECREASED GLUCOSE; Start 08/14/16 at 20 :00 Potassium Chloride (Potassium Chloride Pwd/Soln) 20 meq BID PO Last administered on 08/19/16 08:54; Admin Dose 20 MEQ; Start 08/16/16 at 21:00 Furosemide (Lasix) 40 mg Q8 IV Last administered on 08/19/16 05:14; Admin Dose 40 MG; Start 08/19/16 at 06:00 Lubiprostone (Amitiza) 24 mcg BID PO ; Start 08/19/16 at 09:00 POLI SAN Aug 19, 2016 10:51
--- NOTE | 2016-08-19 11:48 | PN ---
Date/Time of Note Date/Time of Note DATE: 08/19/16 TIME: 11:45 Assessment/Plan VTE Prophylaxis VTE Prophylaxis Intervention: SCD's Lines/Catheters IV Catheter Type (from Nrs): PICC Line Central line still needed: No Urinary Cath still in place: No Assessment/Plan Chief Complaint/Hosp Course Chief Complaint/Hosp Course 1. Acute Resp failure secondary to pulmonary edema and possible aspiration pneumonia-now extubated, stable in room air Status post Zosyn and vancomycin Pulmonology on case 2. Acute on chronic congestive heart failure Status post dialysis for volume overload, continue Lasix IV 3. 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 Type 2 diabetes-stable Insulin sliding scale 5. Atrial fibrillation, rate controlled 6. History of CAD status post CABG 7. Acute on likely chronic kidney disease 2/2 cardiorenal syndrome Hold hemodialysis secondary to improvement of renal panel, continue to monitor renal panel At this time patient creatinine has been improving and hemodialysis on hold 8. Acute encephalopathy secondary to uremic syndrome now improved with dialysis According to the family patient's mentation is back to baseline Speech therapy bedside swallow eval done patient is tolerating a p.o. diet 9. Debility secondary to comorbidities Continue PT, patient cannot ambulate need to go to a rehab center, insurance case manager aware 10. Cough possibly secondary to pulmonary edema with rapid removal of volume from the lung-Improved Phenergan as needed PPx- on Eliquis membership manager consult for [facility] versus [facility] facility placement Plan to discharge to [facility] facility versus [facility] tomorrow Problems: Subjective 24 Hr Interval Summary Free Text/Dictation Patient denies any chest pain or shortness of breath Maximal assistance with ambulation and mobility Tolerating oral intake Exam/Review of Systems Vital Signs Vitals Vital Signs Date Time Temp Pulse Resp B/P Pulse Ox O2 Delivery O2 Flow Rate FiO2 08/19/16 10:12 Nasal Cannula 2.0 08/19/16 07:44 97.9 61 20 110/58 100 Intake and Output 08/18/16 08/18/16 08/19/16 15:00 23:00 07:00 Intake Total 540 ml 1260 ml Output Total 700 ml 1100 ml Balance -160 ml 160 ml Exam General: The patient is well-developed, Not in acute distress. HEENT: Atraumatic, normocephalic. The pupils are equal and round . Neck: Supple with full range of motion. Chest: Normal expansion of the thorax during inspiration Lungs: Clear to auscultation bilaterally Heart: Normal S1-S2, Regular rhythm and rate. Abdomen: Soft , nontender, nondistended , bowel sounds are present. Extremities: Normal to inspection, no edema no cyanosis Neurologic: Normal mental status,The patient is awake, alert and oriented . Results Result Diagram: 08/19/16 0640 08/19/16 0640 Results 24 hrs Laboratory Tests Test 08/18/16 11:46 08/18/16 17:25 08/18/16 20:48 08/19/16 06:40 Bedside Glucose 156 107 102 White Blood Count 4.9 Red Blood Count 3.94 L Hemoglobin 9.9 L Hematocrit 33.9 L Mean Corpuscular Volume 86.0 Mean Corpuscular Hemoglobin 25.1 L Mean Corpuscular Hemoglobin Concent 29.2 L Red Cell Distribution Width 23.5 H Platelet Count 396 Mean Platelet Volume 10.3 Neutrophils % 74.2 Lymphocytes % 15.1 Monocytes % 7.4 Eosinophils % 2.7 Basophils % 0.4 Nucleated Red Blood Cells % 0.0 Neutrophils # 3.6 Lymphocytes # 0.7 L Monocytes # 0.4 Eosinophils # 0.1 Basophils # 0.0 Nucleated Red Blood Cells # 0.0 Sodium Level 137 Potassium Level 3.8 Chloride Level 97 Carbon Dioxide Level 31 Anion Gap 13 Blood Urea Nitrogen 23 H Creatinine 0.94 Glucose Level 81 Calcium Level 8.5 Magnesium Level 1.8 Test 08/19/16 07:50 Bedside Glucose 95 Medications Medications Current Medications Aspirin (Halfprin) 81 mg DAILY PO Last administered on 08/05/16 09:06; Admin Dose 81 MG; Start 07/19/16 at 09:00; Status Future Hold Nitroglycerin (Nitroglycerin (Sl Tab) 0.4 Mg) 1 tab DAILY PRN SL CHEST PAIN; Start 07/18/16 at 15:30 Ondansetron HCl (Zofran Inj) 4 mg Q6H PRN IV NAUSEA AND/OR VOMITING Last administered on 08/05/16 23:48; Admin Dose 4 MG; Start 07/18/16 at 15:30 Acetaminophen (Tylenol Tab) 650 mg Q6H PRN PO PAIN LEVEL 1-3 OR FEVER Last administered on 08/18/16 20:48; Admin Dose 650 MG; Start 07/18/16 at 15:30 Acetaminophen (Tylenol Supp) 650 mg Q6H PRN [place] PAIN LEVEL 1-3 OR FEVER; Start 07/18/16 at 15:30 Docusate Sodium (Colace) 100 mg Q12H PRN PO CONSTIPATION Last administered on 20:19; Admin Dose 100 MG; Start 07/18/16 at 15:30 Magnesium Hydroxide (Milk Of Mag) 30 ml DAILY PRN PO CONSTIPATION Last administered on 08/18/16 15:27; Admin Dose 30 ML; Start 07/18/16 at 15:30 Bisacodyl (Dulcolax Supp) 10 mg DAILY PRN [place] CONSTIPATION Last administered on 08/15/16 01:50; Admin Dose 10 MG; Start 07/18/16 at 15:30 Miscellaneous Information 1 ea NOTE XX ; Start 07/18/16 at 17:30 Glucose (Glutose) 15 gm Q15M PRN PO DECREASED GLUCOSE; Start 07/18/16 at 17:30 Glucose (Glutose) 22.5 gm Q15M PRN PO DECREASED GLUCOSE; Start 07/18/16 at 17: 30 Dextrose (D50w Syringe) 25 ml Q15M PRN IV DECREASED GLUCOSE; Start 07/18/16 at 17:30 Dextrose (D50w Syringe) 50 ml Q15M PRN IV DECREASED GLUCOSE; Start 07/18/16 at 17:30 Glucagon (Glucagen) 1 mg Q15M PRN IM DECREASED GLUCOSE; Start 07/18/16 at 17:30 Glucose (Glutose) 15 gm Q15M PRN BUCCAL DECREASED GLUCOSE; Start 07/18/16 at 17 :30 Guaifenesin/ Codeine Phosphate (Robitussin Ac Liquid Cup) 10 ml Q4H PRN PO COUGH Last administered on 07/19/16 19:43; Admin Dose 10 ML; Start 07/18/16 at 23:30 Carvedilol (Coreg) 3.125 mg BID PO Last administered on 08/03/16 20:05; Admin Dose 3.125 MG; Start 07/24/16 at 09:00; Status Future Hold Isosorbide Dinitrate 10 mg 10 mg TID PO Last administered on 08/03/16 19:58; Admin Dose 10 MG; Start 07/30/16 at 21:00; Status Future Hold Sodium Chloride (1/2 NS) 1,000 ml @ 20 mls/hr Q24H IV Last administered on 05:15; Admin Dose 20 MLS/HR; Start 08/08/16 at 07:00 Pantoprazole (Protonix Iv) 40 mg DAILY@06 IV Last administered on 08/19/16 05: 13; Admin Dose 40 MG; Start 08/10/16 at 06:00 Sucralfate (Carafate) 1 gm QID NGT Last administered on 08/19/16 08:54; Admin Dose 1 GM; Start 08/09/16 at 21:00 Apixaban (Eliquis) 2.5 mg BID PO Last administered on 08/19/16 08:54; Admin Dose 2.5 MG; Start 08/10/16 at 21:00 IV Flush (NS 10 ml) 10 ml PRN PRN IV IV PROTOCOL; Start 08/11/16 at 17:00 Hydralazine HCl (Apresoline) 10 mg Q8 PO Last administered on 08/19/16 05:14; Admin Dose 10 MG; Start 08/13/16 at 14:00 Amiodarone HCl (Cordarone) 200 mg BID NGT Last administered on 08/14/16 13:55 ; Admin Dose 200 MG; Start 08/13/16 at 21:00; Status Future Hold Promethazine HCl/ Dextromethorphan (Phenergan-Dm) 5 ml Q4H PRN PO COUGH; Start 08/14/16 at 16:30 Diagnostic Test (Pha) (Accucheck) 1 ea 02 XX ; Start 08/15/16 at 02:00 Miscellaneous Information 1 ea NOTE XX ; Start 08/14/16 at 20:00 Glucose (Glutose) 15 gm Q15M PRN PO DECREASED GLUCOSE; Start 08/14/16 at 20:00 Glucose (Glutose) 22.5 gm Q15M PRN PO DECREASED GLUCOSE; Start 08/14/16 at 20: 00 Dextrose (D50w Syringe) 25 ml Q15M PRN IV DECREASED GLUCOSE; Start 08/14/16 at 20:00 Dextrose (D50w Syringe) 50 ml Q15M PRN IV DECREASED GLUCOSE; Start 3/17/17 at 20:00 Glucagon (Glucagen) 1 mg Q15M PRN IM DECREASED GLUCOSE; Start 08/14/16 at 20:00 Glucose (Glutose) 15 gm Q15M PRN BUCCAL DECREASED GLUCOSE; Start 08/14/16 at 20 :00 Potassium Chloride (Potassium Chloride Pwd/Soln) 20 meq BID PO Last administered on 08/19/16 08:54; Admin Dose 20 MEQ; Start 08/16/16 at 21:00 Furosemide (Lasix) 40 mg Q8 IV Last administered on 08/19/16 05:14; Admin Dose 40 MG; Start 08/19/16 at 06:00 Lubiprostone (Amitiza) 24 mcg BID PO ; Start 08/19/16 at 09:00 HAKAN REINA MD Aug 19, 2016 11:48
[2016-08-19] MEDS: ACETAMINOPHEN 325 MG TAB PO PRN (16:29)
--- NOTE | 2016-08-19 23:29 | CONS ---
Date/Time of Note Date/Time of Note DATE: 08/19/16 TIME: 23:27 Assessment/Plan Assessment/Plan Chief Complaint/Hosp Course 1. Patient has acute on chronic renal failure with acute kidney injury due to systolic heart failure. BETTER 2. The patient has low ef now s/p vent/cardio renal syndrome s/p extubation off hd 3. Anemia. 4. ASHD 5. Acute urinary tract infection.better 6 LOW EF 7 hyperkalemia HX 8 afib 9 hematuria HX plan will hold hd for now and observe ,ck bmp if renal fn gets worse will need hd lasix tid amitiza Problems: Consultation Date/Type/Reason Admit Date/Time Jul 18, 2016 at 14:06 Type of Consultation: renal Referring Provider: MURIEL EWING 24 HR Interval Summary Constitutional: other (sob better) Exam/Review of Systems Vital Signs Vitals Vital Signs Date Time Temp Pulse Resp B/P Pulse Ox O2 Delivery O2 Flow Rate FiO2 08/19/16 19:56 97.4 63 24 140/61 100 08/19/16 16:30 Nasal Cannula 2.0 Intake and Output 08/18/16 08/18/16 08/19/16 15:00 23:00 07:00 Intake Total 540 ml 1260 ml Output Total 700 ml 1100 ml Balance -160 ml 160 ml Exam Respiratory: clear to auscultation Cardiovascular: regular rate and rhythm Gastrointestinal: soft Extremities: No edema Results Result Diagram: 08/19/16 0640 08/19/16 0640 Results 24 hrs Laboratory Tests Test 08/19/16 06:40 08/19/16 07:50 08/19/16 12:08 08/19/16 17:23 White Blood Count 4.9 Red Blood Count 3.94 L Hemoglobin 9.9 L Hematocrit 33.9 L Mean Corpuscular Volume 86.0 Mean Corpuscular Hemoglobin 25.1 L Mean Corpuscular Hemoglobin Concent 29.2 L Red Cell Distribution Width 23.5 H Platelet Count 396 Mean Platelet Volume 10.3 Neutrophils % 74.2 Lymphocytes % 15.1 Monocytes % 7.4 Eosinophils % 2.7 Basophils % 0.4 Nucleated Red Blood Cells % 0.0 Neutrophils # 3.6 Lymphocytes # 0.7 L Monocytes # 0.4 Eosinophils # 0.1 Basophils # 0.0 Nucleated Red Blood Cells # 0.0 Sodium Level 137 Potassium Level 3.8 Chloride Level 97 Carbon Dioxide Level 31 Anion Gap 13 Blood Urea Nitrogen 23 H Creatinine 0.94 Glucose Level 81 Calcium Level 8.5 Magnesium Level 1.8 Bedside Glucose 95 149 150 Test 08/19/16 21:13 Bedside Glucose 157 Medications Medications Current Medications Aspirin (Halfprin) 81 mg DAILY PO Last administered on 08/05/16 09:06; Admin Dose 81 MG; Start 07/19/16 at 09:00; Status Future Hold Nitroglycerin (Nitroglycerin (Sl Tab) 0.4 Mg) 1 tab DAILY PRN SL CHEST PAIN; Start 07/18/16 at 15:30 Ondansetron HCl (Zofran Inj) 4 mg Q6H PRN IV NAUSEA AND/OR VOMITING Last administered on 08/05/16 23:48; Admin Dose 4 MG; Start 07/18/16 at 15:30 Acetaminophen (Tylenol Tab) 650 mg Q6H PRN PO PAIN LEVEL 1-3 OR FEVER Last administered on 08/19/16 16:29; Admin Dose 650 MG; Start 07/18/16 at 15:30 Acetaminophen (Tylenol Supp) 650 mg Q6H PRN [place] PAIN LEVEL 1-3 OR FEVER; Start 07/18/16 at 15:30 Docusate Sodium (Colace) 100 mg Q12H PRN PO CONSTIPATION Last administered on 20:19; Admin Dose 100 MG; Start 07/18/16 at 15:30 Magnesium Hydroxide (Milk Of Mag) 30 ml DAILY PRN PO CONSTIPATION Last administered on 08/18/16 15:27; Admin Dose 30 ML; Start 07/18/16 at 15:30 Bisacodyl (Dulcolax Supp) 10 mg DAILY PRN [place] CONSTIPATION Last administered on 08/15/16 01:50; Admin Dose 10 MG; Start 07/18/16 at 15:30 Miscellaneous Information 1 ea NOTE XX ; Start 07/18/16 at 17:30 Glucose (Glutose) 15 gm Q15M PRN PO DECREASED GLUCOSE; Start 07/18/16 at 17:30 Glucose (Glutose) 22.5 gm Q15M PRN PO DECREASED GLUCOSE; Start 07/18/16 at 17: 30 Dextrose (D50w Syringe) 25 ml Q15M PRN IV DECREASED GLUCOSE; Start 07/18/16 at 17:30 Dextrose (D50w Syringe) 50 ml Q15M PRN IV DECREASED GLUCOSE; Start 07/18/16 at 17:30 Glucagon (Glucagen) 1 mg Q15M PRN IM DECREASED GLUCOSE; Start 07/18/16 at 17:30 Glucose (Glutose) 15 gm Q15M PRN BUCCAL DECREASED GLUCOSE; Start 07/18/16 at 17 :30 Guaifenesin/ Codeine Phosphate (Robitussin Ac Liquid Cup) 10 ml Q4H PRN PO COUGH Last administered on 07/19/16 19:43; Admin Dose 10 ML; Start 07/18/16 at 23:30 Carvedilol (Coreg) 3.125 mg BID PO Last administered on 08/03/16 20:05; Admin Dose 3.125 MG; Start 07/24/16 at 09:00; Status Future Hold Isosorbide Dinitrate 10 mg 10 mg TID PO Last administered on 08/03/16 19:58; Admin Dose 10 MG; Start 07/30/16 at 21:00; Status Future Hold Sodium Chloride (1/2 NS) 1,000 ml @ 20 mls/hr Q24H IV Last administered on 05:15; Admin Dose 20 MLS/HR; Start 08/08/16 at 07:00 Pantoprazole (Protonix Iv) 40 mg DAILY@06 IV Last administered on 08/19/16 05: 13; Admin Dose 40 MG; Start 08/10/16 at 06:00 Sucralfate (Carafate) 1 gm QID NGT Last administered on 08/19/16 21:14; Admin Dose 1 GM; Start 08/09/16 at 21:00 Apixaban (Eliquis) 2.5 mg BID PO Last administered on 08/19/16 21:14; Admin Dose 2.5 MG; Start 08/10/16 at 21:00 IV Flush (NS 10 ml) 10 ml PRN PRN IV IV PROTOCOL; Start 08/11/16 at 17:00 Hydralazine HCl (Apresoline) 10 mg Q8 PO Last administered on 08/19/16 21:16; Admin Dose 10 MG; Start 08/13/16 at 14:00 Amiodarone HCl (Cordarone) 200 mg BID NGT Last administered on 08/14/16 13:55 ; Admin Dose 200 MG; Start 08/13/16 at 21:00; Status Future Hold Promethazine HCl/ Dextromethorphan (Phenergan-Dm) 5 ml Q4H PRN PO COUGH; Start 08/14/16 at 16:30 Diagnostic Test (Pha) (Accucheck) 1 ea 02 XX ; Start 08/15/16 at 02:00 Miscellaneous Information 1 ea NOTE XX ; Start 08/14/16 at 20:00 Glucose (Glutose) 15 gm Q15M PRN PO DECREASED GLUCOSE; Start 08/14/16 at 20:00 Glucose (Glutose) 22.5 gm Q15M PRN PO DECREASED GLUCOSE; Start 08/14/16 at 20: 00 Dextrose (D50w Syringe) 25 ml Q15M PRN IV DECREASED GLUCOSE; Start 08/14/16 at 20:00 Dextrose (D50w Syringe) 50 ml Q15M PRN IV DECREASED GLUCOSE; Start 08/14/16 at 20:00 Glucagon (Glucagen) 1 mg Q15M PRN IM DECREASED GLUCOSE; Start 08/14/16 at 20:00 Glucose (Glutose) 15 gm Q15M PRN BUCCAL DECREASED GLUCOSE; Start 08/14/16 at 20 :00 Potassium Chloride (Potassium Chloride Pwd/Soln) 20 meq BID PO Last administered on 08/19/16 21:15; Admin Dose 20 MEQ; Start 08/16/16 at 21:00 Furosemide (Lasix) 40 mg Q8 IV Last administered on 08/19/16 21:16; Admin Dose 40 MG; Start 08/19/16 at 06:00 Lubiprostone (Amitiza) 24 mcg BID PO Last administered on 08/19/16 21:14; Admin Dose 24 MCG; Start 08/19/16 at 09:00 YANIRA HART MD Aug 19, 2016 23:29
[2016-08-20] MEDS: ACETAMINOPHEN 325 MG TAB PO PRN ×2 (00:56→16:49)
[2016-08-20] MEDS: ACCU-CHEK XX SCH (02:00)
[2016-08-20] MEDS: PANTOPRAZOLE 40 MG INJ IV SCH (05:16)
[2016-08-20 05:20] VITALS: BP 125/58; PULSE 62
[2016-08-20] MEDS: FUROSEMIDE 40 MG INJ IV SCH ×3 (05:20→21:37)
[2016-08-20 06:02] LABS: ADD SCAN DIFF NO
[2016-08-20 06:17] LABS: ABNORMAL IP MESSAGE 1; BASOPHILS % 0.4 % (0.0-2.0); EOSINOPHILS # 0.1 10^3/ul (0.0-0.5); EOSINOPHILS % 1.5 % (0.0-7.0); HEMATOCRIT 33.9 % (42.0-52.0); HEMOGLOBIN 10.1 g/dl (14.0-18.0); LYMPHOCYTES # 0.5 10^3/ul (0.8-2.9); LYMPHOCYTES % 10.2 % (15.0-51.0); MEAN CORPUSCULAR HEMOGLOBIN 25.5 pg (29.0-33.0); MEAN CORPUSCULAR HGB CONC 29.8 g/dl (32.0-37.0); MEAN CORPUSCULAR VOLUME 85.6 fl (82.0-101.0); MEAN PLATELET VOLUME 10.1 fl (7.4-10.4); MONOCYTE # 0.4 10^3/ul (0.3-0.9); MONOCYTES % 8.1 % (0.0-11.0); NEUTROPHIL # 4.1 10^3/ul (1.6-7.5); NEUTROPHILS % 79.6 % (39.0-77.0); PLATELET COUNT 418 10^3/UL (140-415); RED BLOOD COUNT 3.96 10^6/ul (4.70-6.10); WHITE BLOOD COUNT 5.2 10^3/ul (4.8-10.8)
[2016-08-20 06:26] LABS: POTASSIUM 3.8 mmol/L (3.5-5.1)
[2016-08-20 06:28] LABS: CREATININE 1.05 mg/dl (0.61-1.24)
[2016-08-20 06:29] LABS: CALCIUM 8.6 mg/dl (8.4-10.2)
[2016-08-20 07:30] VITALS: BP 132/59; RESP 18
[2016-08-20] MEDS: SOD CHLORIDE 0.45% 1,000 ML IV SCH (07:40)
[2016-08-20] MEDS: INSULIN ASPART [NOVOLOG] 3 ML PEN SC SCH ×4 (08:15→21:00)
[2016-08-20] MEDS: APIXABAN 5 MG TABLET PO SCH ×2 (08:22→21:36)
[2016-08-20] MEDS: LUBIPROSTONE 24 MCG CAP PO SCH ×2 (08:22→21:35)
[2016-08-20] MEDS: SUCRALFATE 1 GM TAB NGT SCH ×4 (08:22→21:35)
[2016-08-20] MEDS: POTASSIUM CHLORIDE 20 MEQ POWDER FOR ORAL SOLN PO SCH ×2 (08:23→21:36)
--- NOTE | 2016-08-20 12:07 | CONS ---
Date/Time of Note Date/Time of Note DATE: 08/20/16 TIME: 12:00 Assessment/Plan Assessment/Plan Chief Complaint/Hosp Course IMPRESSION: 1. Congestive heart failure exacerbation, systolic, acute on chronic. EF 25% by most recent echo-worsening. Minimally + troponin after cardiac arrest 2. Resp failure s/p intubation/stable 3. Hypotension/shock-Now improved and tolerating BP medications 3. History of coronary artery bypass graft surgery. 4. Abnormal electrocardiogram . MIldly postive trop after cardiac arrest 5. History of paroxysmal atrial fibrillation-on apixaban 6. Acute on chronic renal failure-Now on HD 8. Anemia, mild. 9. 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 follow cleaning associate/volume status closely -HD held -Continue apixaban now that coagulopathy improved -PT/OT with eval for possible inpatient rehab -Should consider upgrade to BIV/ICD to improve CO -resume low dose coreg as tolerated Problems: Consultation Date/Type/Reason Admit Date/Time Jul 18, 2016 at 14:06 Initial Consult Date 07/19/2016 Type of Consultation: Cardiology Reason for Consultation Cardiomyopathy/CHF Referring Provider: MURIEL EWING Exam/Review of Systems Vital Signs Vitals Vital Signs Date Time Temp Pulse Resp B/P Pulse Ox O2 Delivery O2 Flow Rate FiO2 08/20/16 07:30 97.3 66 18 132/59 98 08/19/16 20:00 Nasal Cannula 2.0 Intake and Output 08/19/16 08/19/16 08/20/16 15:00 23:00 07:00 Intake Total 480 ml 240 ml Output Total 1800 ml 800 ml Balance -1320 ml -560 ml Exam Review of Systems: CONSTITUTIONAL: No fevers, chills. PULMONARY: Mild sob CARDIOVASCULAR: No chest pain/palpitations GASTROINTESTINAL: No nausea/vomiting. GENITOURINARY: No hematuria/dysuria. MUSCULOSKELETAL: No myagias/arthalgias. PSYCHIATRIC: The patient denies depression. NEUROLOGIC: Lethargic Constitutional: alert Psych: no complaints Head: normocephalic ENMT: mucosa pink and moist Neck: jvd (9 cm water), supple Respiratory: diminished breath sounds (at bases/B) Cardiovascular: regular rate and rhythm Gastrointestinal: non-tender, soft Musculoskeletal: muscle tone (normal), muscle weakness (Generalized) Extremities: edema (none) Neurological: other (No focal deficits) Results Result Diagram: 08/20/16 0550 08/20/16 0550 Results 24 hrs Laboratory Tests Test 08/19/16 12:08 08/19/16 17:23 08/19/16 21:13 08/20/16 03:59 Bedside Glucose 149 150 157 107 Test 08/20/16 05:50 08/20/16 08:20 White Blood Count 5.2 Red Blood Count 3.96 L Hemoglobin 10.1 L Hematocrit 33.9 L Mean Corpuscular Volume 85.6 Mean Corpuscular Hemoglobin 25.5 L Mean Corpuscular Hemoglobin Concent 29.8 L Red Cell Distribution Width 24.0 H Platelet Count 418 H Mean Platelet Volume 10.1 Neutrophils % 79.6 H Lymphocytes % 10.2 L Monocytes % 8.1 Eosinophils % 1.5 Basophils % 0.4 Nucleated Red Blood Cells % 0.0 Neutrophils # 4.1 Lymphocytes # 0.5 L Monocytes # 0.4 Eosinophils # 0.1 Basophils # 0.0 Nucleated Red Blood Cells # 0.0 Sodium Level 136 Potassium Level 3.8 Chloride Level 97 Carbon Dioxide Level 32 H Anion Gap 11 Blood Urea Nitrogen 28 H Creatinine 1.05 Glucose Level 96 Calcium Level 8.6 Bedside Glucose 101 Medications Medications Current Medications Aspirin (Halfprin) 81 mg DAILY PO Last administered on 08/05/16 09:06; Admin Dose 81 MG; Start 07/19/16 at 09:00; Status Future Hold Nitroglycerin (Nitroglycerin (Sl Tab) 0.4 Mg) 1 tab DAILY PRN SL CHEST PAIN; Start 07/18/16 at 15:30 Ondansetron HCl (Zofran Inj) 4 mg Q6H PRN IV NAUSEA AND/OR VOMITING Last administered on 08/05/16 23:48; Admin Dose 4 MG; Start 07/18/16 at 15:30 Acetaminophen (Tylenol Tab) 650 mg Q6H PRN PO PAIN LEVEL 1-3 OR FEVER Last administered on 08/20/16 00:56; Admin Dose 650 MG; Start 07/18/16 at 15:30 Acetaminophen (Tylenol Supp) 650 mg Q6H PRN PA PAIN LEVEL 1-3 OR FEVER; Start 07/18/16 at 15:30 Docusate Sodium (Colace) 100 mg Q12H PRN PO CONSTIPATION Last administered on 20:19; Admin Dose 100 MG; Start 07/18/16 at 15:30 Magnesium Hydroxide (Milk Of Mag) 30 ml DAILY PRN PO CONSTIPATION Last administered on 08/18/16 15:27; Admin Dose 30 ML; Start 07/18/16 at 15:30 Bisacodyl (Dulcolax Supp) 10 mg DAILY PRN PA CONSTIPATION Last administered on 08/15/16 01:50; Admin Dose 10 MG; Start 07/18/16 at 15:30 Miscellaneous Information 1 ea NOTE XX ; Start 07/18/16 at 17:30 Glucose (Glutose) 15 gm Q15M PRN PO DECREASED GLUCOSE; Start 07/18/16 at 17:30 Glucose (Glutose) 22.5 gm Q15M PRN PO DECREASED GLUCOSE; Start 07/18/16 at 17: 30 Dextrose (D50w Syringe) 25 ml Q15M PRN IV DECREASED GLUCOSE; Start 07/18/16 at 17:30 Dextrose (D50w Syringe) 50 ml Q15M PRN IV DECREASED GLUCOSE; Start 07/18/16 at 17:30 Glucagon (Glucagen) 1 mg Q15M PRN IM DECREASED GLUCOSE; Start 07/18/16 at 17:30 Glucose (Glutose) 15 gm Q15M PRN BUCCAL DECREASED GLUCOSE; Start 07/18/16 at 17 :30 Guaifenesin/ Codeine Phosphate (Robitussin Ac Liquid Cup) 10 ml Q4H PRN PO COUGH Last administered on 07/19/16 19:43; Admin Dose 10 ML; Start 07/18/16 at 23:30 Carvedilol (Coreg) 3.125 mg BID PO Last administered on 08/03/16 20:05; Admin Dose 3.125 MG; Start 07/24/16 at 09:00; Status Future Hold Isosorbide Dinitrate 10 mg 10 mg TID PO Last administered on 08/03/16 19:58; Admin Dose 10 MG; Start 07/30/16 at 21:00; Status Future Hold Sodium Chloride (1/2 NS) 1,000 ml @ 20 mls/hr Q24H IV Last administered on 05:15; Admin Dose 20 MLS/HR; Start 08/08/16 at 07:00 Pantoprazole (Protonix Iv) 40 mg DAILY@06 IV Last administered on 08/20/16 05: 16; Admin Dose 40 MG; Start 08/10/16 at 06:00 Sucralfate (Carafate) 1 gm QID NGT Last administered on 08/20/16 08:22; Admin Dose 1 GM; Start 08/09/16 at 21:00 Apixaban (Eliquis) 2.5 mg BID PO Last administered on 08/20/16 08:22; Admin Dose 2.5 MG; Start 08/10/16 at 21:00 IV Flush (NS 10 ml) 10 ml PRN PRN IV IV PROTOCOL; Start 08/11/16 at 17:00 Hydralazine HCl (Apresoline) 10 mg Q8 PO Last administered on 08/20/16 05:20; Admin Dose 10 MG; Start 08/13/16 at 14:00 Amiodarone HCl (Cordarone) 200 mg BID NGT Last administered on 08/14/16 13:55 ; Admin Dose 200 MG; Start 08/13/16 at 21:00; Status Future Hold Promethazine HCl/ Dextromethorphan (Phenergan-Dm) 5 ml Q4H PRN PO COUGH; Start 08/14/16 at 16:30 Diagnostic Test (Pha) (Accucheck) 1 ea 02 XX ; Start 08/15/16 at 02:00 Miscellaneous Information 1 ea NOTE XX ; Start 08/14/16 at 20:00 Glucose (Glutose) 15 gm Q15M PRN PO DECREASED GLUCOSE; Start 08/14/16 at 20:00 Glucose (Glutose) 22.5 gm Q15M PRN PO DECREASED GLUCOSE; Start 08/14/16 at 20: 00 Dextrose (D50w Syringe) 25 ml Q15M PRN IV DECREASED GLUCOSE; Start 08/14/16 at 20:00 Dextrose (D50w Syringe) 50 ml Q15M PRN IV DECREASED GLUCOSE; Start 08/14/16 at 20:00 Glucagon (Glucagen) 1 mg Q15M PRN IM DECREASED GLUCOSE; Start 08/14/16 at 20:00 Glucose (Glutose) 15 gm Q15M PRN BUCCAL DECREASED GLUCOSE; Start 08/14/16 at 20 :00 Potassium Chloride (Potassium Chloride Pwd/Soln) 20 meq BID PO Last administered on 08/20/16 08:23; Admin Dose 20 MEQ; Start 08/16/16 at 21:00 Furosemide (Lasix) 40 mg Q8 IV Last administered on 08/20/16 05:20; Admin Dose 40 MG; Start 08/19/16 at 06:00 Lubiprostone (Amitiza) 24 mcg BID PO Last administered on 08/20/16 08:22; Admin Dose 24 MCG; Start 08/19/16 at 09:00 POLI SAN Aug 20, 2016 12:07
--- NOTE | 2016-08-20 12:56 | PN ---
Date/Time of Note Date/Time of Note DATE: 08/20/16 TIME: 12:52 Assessment/Plan VTE Prophylaxis VTE Prophylaxis Intervention: heparin Lines/Catheters IV Catheter Type (from Nrs): PICC Line Central line still needed: No Urinary Cath still in place: Yes Reason Cath still needed: other (indicate) Assessment/Plan Chief Complaint/Hosp Course Chief Complaint/Hosp Course 1. Acute Resp failure secondary to pulmonary edema and possible aspiration pneumonia-now extubated, stable in room air Status post Zosyn and vancomycin Pulmonology on case 2. Acute on chronic congestive heart failure Status post dialysis for volume overload, continue Lasix IV 3. 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 Type 2 diabetes-stable Insulin sliding scale 5. Atrial fibrillation, rate controlled 6. History of CAD status post CABG 7. Acute on likely chronic kidney disease 2/2 cardiorenal syndrome Hold hemodialysis secondary to improvement of renal panel, continue to monitor renal panel At this time patient creatinine has been improving and hemodialysis on hold 8. Acute encephalopathy secondary to uremic syndrome now improved with dialysis According to the family patient's mentation is back to baseline Speech therapy bedside swallow eval done patient is tolerating a p.o. diet 9. Debility secondary to comorbidities Continue PT, patient cannot ambulate need to go to a rehab center, trimming caser aware 10. Cough possibly secondary to pulmonary edema with rapid removal of volume from the lung-Improved Phenergan as needed PPx- on Eliquis Patient will be reevaluated by physical therapy for acute rehab versus [facility] placement Patient will be transferred to these facilities when accepted Problems: Subjective 24 Hr Interval Summary Free Text/Dictation Patient is sitting at the edge of the bed comfortably with an acute distress Tolerating oral intake No nausea vomiting diarrhea Feeling better today Exam/Review of Systems Vital Signs Vitals Vital Signs Date Time Temp Pulse Resp B/P Pulse Ox O2 Delivery O2 Flow Rate FiO2 08/20/16 07:30 97.3 66 18 132/59 98 08/19/16 20:00 Nasal Cannula 2.0 Intake and Output 08/19/16 08/19/16 08/20/16 15:00 23:00 07:00 Intake Total 480 ml 240 ml Output Total 1800 ml 800 ml Balance -1320 ml -560 ml Exam General: The patient is well-developed, Not in acute distress. HEENT: Atraumatic, normocephalic. The pupils are equal and round . Neck: Supple with full range of motion. Chest: Normal expansion of the thorax during inspiration Lungs: Clear to auscultation bilaterally Heart: Normal S1-S2, Regular rhythm and rate. Abdomen: Soft , nontender, nondistended , bowel sounds are present. Extremities: Normal to inspection, no edema no cyanosis Neurologic: Normal mental status,The patient is awake, alert and oriented . Results Result Diagram: 08/20/16 0550 08/20/16 0550 Results 24 hrs Laboratory Tests Test 08/19/16 17:23 08/19/16 21:13 08/20/16 03:59 08/20/16 05:50 Bedside Glucose 150 157 107 White Blood Count 5.2 Red Blood Count 3.96 L Hemoglobin 10.1 L Hematocrit 33.9 L Mean Corpuscular Volume 85.6 Mean Corpuscular Hemoglobin 25.5 L Mean Corpuscular Hemoglobin Concent 29.8 L Red Cell Distribution Width 24.0 H Platelet Count 418 H Mean Platelet Volume 10.1 Neutrophils % 79.6 H Lymphocytes % 10.2 L Monocytes % 8.1 Eosinophils % 1.5 Basophils % 0.4 Nucleated Red Blood Cells % 0.0 Neutrophils # 4.1 Lymphocytes # 0.5 L Monocytes # 0.4 Eosinophils # 0.1 Basophils # 0.0 Nucleated Red Blood Cells # 0.0 Sodium Level 136 Potassium Level 3.8 Chloride Level 97 Carbon Dioxide Level 32 H Anion Gap 11 Blood Urea Nitrogen 28 H Creatinine 1.05 Glucose Level 96 Calcium Level 8.6 Test 08/20/16 08:20 08/20/16 12:01 Bedside Glucose 101 135 Medications Medications Current Medications Aspirin (Halfprin) 81 mg DAILY PO Last administered on 08/05/16 09:06; Admin Dose 81 MG; Start 07/19/16 at 09:00; Status Future Hold Nitroglycerin (Nitroglycerin (Sl Tab) 0.4 Mg) 1 tab DAILY PRN SL CHEST PAIN; Start 07/18/16 at 15:30 Ondansetron HCl (Zofran Inj) 4 mg Q6H PRN IV NAUSEA AND/OR VOMITING Last administered on 08/05/16 23:48; Admin Dose 4 MG; Start 07/18/16 at 15:30 Acetaminophen (Tylenol Tab) 650 mg Q6H PRN PO PAIN LEVEL 1-3 OR FEVER Last administered on 08/20/16 00:56; Admin Dose 650 MG; Start 07/18/16 at 15:30 Acetaminophen (Tylenol Supp) 650 mg Q6H PRN [place] PAIN LEVEL 1-3 OR FEVER; Start 07/18/16 at 15:30 Docusate Sodium (Colace) 100 mg Q12H PRN PO CONSTIPATION Last administered on 20:19; Admin Dose 100 MG; Start 07/18/16 at 15:30 Magnesium Hydroxide (Milk Of Mag) 30 ml DAILY PRN PO CONSTIPATION Last administered on 08/18/16 15:27; Admin Dose 30 ML; Start 07/18/16 at 15:30 Bisacodyl (Dulcolax Supp) 10 mg DAILY PRN AL CONSTIPATION Last administered on 08/15/16 01:50; Admin Dose 10 MG; Start 07/18/16 at 15:30 Miscellaneous Information 1 ea NOTE XX ; Start 07/18/16 at 17:30 Glucose (Glutose) 15 gm Q15M PRN PO DECREASED GLUCOSE; Start 07/18/16 at 17:30 Glucose (Glutose) 22.5 gm Q15M PRN PO DECREASED GLUCOSE; Start 07/18/16 at 17: 30 Dextrose (D50w Syringe) 25 ml Q15M PRN IV DECREASED GLUCOSE; Start 07/18/16 at 17:30 Dextrose (D50w Syringe) 50 ml Q15M PRN IV DECREASED GLUCOSE; Start 07/18/16 at 17:30 Glucagon (Glucagen) 1 mg Q15M PRN IM DECREASED GLUCOSE; Start 07/18/16 at 17:30 Glucose (Glutose) 15 gm Q15M PRN BUCCAL DECREASED GLUCOSE; Start 07/18/16 at 17 :30 Guaifenesin/ Codeine Phosphate (Robitussin Ac Liquid Cup) 10 ml Q4H PRN PO COUGH Last administered on 07/19/16 19:43; Admin Dose 10 ML; Start 07/18/16 at 23:30 Isosorbide Dinitrate 10 mg 10 mg TID PO Last administered on 08/03/16 19:58; Admin Dose 10 MG; Start 07/30/16 at 21:00; Status Future Hold Sodium Chloride (1/2 NS) 1,000 ml @ 20 mls/hr Q24H IV Last administered on 05:15; Admin Dose 20 MLS/HR; Start 08/08/16 at 07:00 Pantoprazole (Protonix Iv) 40 mg DAILY@06 IV Last administered on 08/20/16 05: 16; Admin Dose 40 MG; Start 08/10/16 at 06:00 Sucralfate (Carafate) 1 gm QID NGT Last administered on 08/20/16 12:01; Admin Dose 1 GM; Start 08/09/16 at 21:00 Apixaban (Eliquis) 2.5 mg BID PO Last administered on 08/20/16 08:22; Admin Dose 2.5 MG; Start 08/10/16 at 21:00 IV Flush (NS 10 ml) 10 ml PRN PRN IV IV PROTOCOL; Start 08/11/16 at 17:00 Hydralazine HCl (Apresoline) 10 mg Q8 PO Last administered on 08/20/16 05:20; Admin Dose 10 MG; Start 08/13/16 at 14:00 Amiodarone HCl (Cordarone) 200 mg BID NGT Last administered on 08/14/16 13:55 ; Admin Dose 200 MG; Start 08/13/16 at 21:00; Status Future Hold Promethazine HCl/ Dextromethorphan (Phenergan-Dm) 5 ml Q4H PRN PO COUGH; Start 08/14/16 at 16:30 Diagnostic Test (Pha) (Accucheck) 1 ea 02 XX ; Start 08/15/16 at 02:00 Miscellaneous Information 1 ea NOTE XX ; Start 08/14/16 at 20:00 Glucose (Glutose) 15 gm Q15M PRN PO DECREASED GLUCOSE; Start 08/14/16 at 20:00 Glucose (Glutose) 22.5 gm Q15M PRN PO DECREASED GLUCOSE; Start 08/14/16 at 20: 00 Dextrose (D50w Syringe) 25 ml Q15M PRN IV DECREASED GLUCOSE; Start 08/14/16 at 20:00 Dextrose (D50w Syringe) 50 ml Q15M PRN IV DECREASED GLUCOSE; Start 08/14/16 at 20:00 Glucagon (Glucagen) 1 mg Q15M PRN IM DECREASED GLUCOSE; Start 08/14/16 at 20:00 Glucose (Glutose) 15 gm Q15M PRN BUCCAL DECREASED GLUCOSE; Start 08/14/16 at 20 :00 Potassium Chloride (Potassium Chloride Pwd/Soln) 20 meq BID PO Last administered on 08/20/16 08:23; Admin Dose 20 MEQ; Start 08/16/16 at 21:00 Furosemide (Lasix) 40 mg Q8 IV Last administered on 08/20/16 05:20; Admin Dose 40 MG; Start 08/19/16 at 06:00 Lubiprostone (Amitiza) 24 mcg BID PO Last administered on 08/20/16 08:22; Admin Dose 24 MCG; Start 08/19/16 at 09:00 HAKAN REINA MD Aug 20, 2016 12:56
--- NOTE | 2016-08-20 16:39 | CONS ---
Date/Time of Note Date/Time of Note DATE: 08/20/16 TIME: 16:39 Assessment/Plan Assessment/Plan Chief Complaint/Hosp Course 1. Patient has acute on chronic renal failure with acute kidney injury due to systolic heart failure. BETTER 2. The patient has low ef now s/p vent/cardio renal syndrome s/p extubation off hd 3. Anemia. 4. ASHD 5. Acute urinary tract infection.better 6 LOW EF 7 hyperkalemia HX 8 afib 9 hematuria HX plan will hold hd for now and observe ,ck bmp if renal fn gets worse will need hd lasix tid Problems: Consultation Date/Type/Reason Admit Date/Time Jul 18, 2016 at 14:06 Type of Consultation: RENAL Referring Provider: MURIEL EWING 24 HR Interval Summary Constitutional: no complaints Exam/Review of Systems Vital Signs Vitals Vital Signs Date Time Temp Pulse Resp B/P Pulse Ox O2 Delivery O2 Flow Rate FiO2 08/20/16 08:15 Nasal Cannula 2.0 08/20/16 07:30 97.3 66 18 132/59 98 Intake and Output 08/19/16 08/19/16 08/20/16 15:00 23:00 07:00 Intake Total 480 ml 240 ml Output Total 1800 ml 800 ml Balance -1320 ml -560 ml Exam Neck: supple Respiratory: clear to auscultation Cardiovascular: regular rate and rhythm Gastrointestinal: soft Results Result Diagram: 08/20/16 0550 08/20/16 0550 Results 24 hrs Laboratory Tests Test 08/19/16 17:23 08/19/16 21:13 08/20/16 03:59 08/20/16 05:50 Bedside Glucose 150 157 107 White Blood Count 5.2 Red Blood Count 3.96 L Hemoglobin 10.1 L Hematocrit 33.9 L Mean Corpuscular Volume 85.6 Mean Corpuscular Hemoglobin 25.5 L Mean Corpuscular Hemoglobin Concent 29.8 L Red Cell Distribution Width 24.0 H Platelet Count 418 H Mean Platelet Volume 10.1 Neutrophils % 79.6 H Lymphocytes % 10.2 L Monocytes % 8.1 Eosinophils % 1.5 Basophils % 0.4 Nucleated Red Blood Cells % 0.0 Neutrophils # 4.1 Lymphocytes # 0.5 L Monocytes # 0.4 Eosinophils # 0.1 Basophils # 0.0 Nucleated Red Blood Cells # 0.0 Sodium Level 136 Potassium Level 3.8 Chloride Level 97 Carbon Dioxide Level 32 H Anion Gap 11 Blood Urea Nitrogen 28 H Creatinine 1.05 Glucose Level 96 Calcium Level 8.6 Test 08/20/16 08:20 08/20/16 12:01 Bedside Glucose 101 135 Medications Medications Current Medications Aspirin (Halfprin) 81 mg DAILY PO Last administered on 08/05/16 09:06; Admin Dose 81 MG; Start 07/19/16 at 09:00; Status Future Hold Nitroglycerin (Nitroglycerin (Sl Tab) 0.4 Mg) 1 tab DAILY PRN SL CHEST PAIN; Start 07/18/16 at 15:30 Ondansetron HCl (Zofran Inj) 4 mg Q6H PRN IV NAUSEA AND/OR VOMITING Last administered on 08/05/16 23:48; Admin Dose 4 MG; Start 07/18/16 at 15:30 Acetaminophen (Tylenol Tab) 650 mg Q6H PRN PO PAIN LEVEL 1-3 OR FEVER Last administered on 08/20/16 00:56; Admin Dose 650 MG; Start 07/18/16 at 15:30 Acetaminophen (Tylenol Supp) 650 mg Q6H PRN [place] PAIN LEVEL 1-3 OR FEVER; Start 07/18/16 at 15:30 Docusate Sodium (Colace) 100 mg Q12H PRN PO CONSTIPATION Last administered on 20:19; Admin Dose 100 MG; Start 07/18/16 at 15:30 Magnesium Hydroxide (Milk Of Mag) 30 ml DAILY PRN PO CONSTIPATION Last administered on 08/18/16 15:27; Admin Dose 30 ML; Start 07/18/16 at 15:30 Bisacodyl (Dulcolax Supp) 10 mg DAILY PRN [place] CONSTIPATION Last administered on 08/15/16 01:50; Admin Dose 10 MG; Start 07/18/16 at 15:30 Miscellaneous Information 1 ea NOTE XX ; Start 07/18/16 at 17:30 Glucose (Glutose) 15 gm Q15M PRN PO DECREASED GLUCOSE; Start 07/18/16 at 17:30 Glucose (Glutose) 22.5 gm Q15M PRN PO DECREASED GLUCOSE; Start 07/18/16 at 17: 30 Dextrose (D50w Syringe) 25 ml Q15M PRN IV DECREASED GLUCOSE; Start 07/18/16 at 17:30 Dextrose (D50w Syringe) 50 ml Q15M PRN IV DECREASED GLUCOSE; Start 07/18/16 at 17:30 Glucagon (Glucagen) 1 mg Q15M PRN IM DECREASED GLUCOSE; Start 07/18/16 at 17:30 Glucose (Glutose) 15 gm Q15M PRN BUCCAL DECREASED GLUCOSE; Start 07/18/16 at 17 :30 Guaifenesin/ Codeine Phosphate (Robitussin Ac Liquid Cup) 10 ml Q4H PRN PO COUGH Last administered on 07/19/16 19:43; Admin Dose 10 ML; Start 07/18/16 at 23:30 Isosorbide Dinitrate 10 mg 10 mg TID PO Last administered on 08/03/16 19:58; Admin Dose 10 MG; Start 07/30/16 at 21:00; Status Future Hold Sodium Chloride (1/2 NS) 1,000 ml @ 20 mls/hr Q24H IV Last administered on 05:15; Admin Dose 20 MLS/HR; Start 08/08/16 at 07:00 Sucralfate (Carafate) 1 gm QID NGT Last administered on 08/20/16 12:01; Admin Dose 1 GM; Start 08/09/16 at 21:00 Apixaban (Eliquis) 2.5 mg BID PO Last administered on 08/20/16 08:22; Admin Dose 2.5 MG; Start 08/10/16 at 21:00 IV Flush (NS 10 ml) 10 ml PRN PRN IV IV PROTOCOL; Start 08/11/16 at 17:00 Hydralazine HCl (Apresoline) 10 mg Q8 PO Last administered on 08/20/16 15:09; Admin Dose 10 MG; Start 08/13/16 at 14:00 Amiodarone HCl (Cordarone) 200 mg BID NGT Last administered on 08/14/16 13:55 ; Admin Dose 200 MG; Start 08/13/16 at 21:00; Status Future Hold Promethazine HCl/ Dextromethorphan (Phenergan-Dm) 5 ml Q4H PRN PO COUGH; Start 08/14/16 at 16:30 Diagnostic Test (Pha) (Accucheck) 1 ea 02 XX ; Start 08/15/16 at 02:00 Miscellaneous Information 1 ea NOTE XX ; Start 08/14/16 at 20:00 Glucose (Glutose) 15 gm Q15M PRN PO DECREASED GLUCOSE; Start 08/14/16 at 20:00 Glucose (Glutose) 22.5 gm Q15M PRN PO DECREASED GLUCOSE; Start 08/14/16 at 20: 00 Dextrose (D50w Syringe) 25 ml Q15M PRN IV DECREASED GLUCOSE; Start 08/14/16 at 20:00 Dextrose (D50w Syringe) 50 ml Q15M PRN IV DECREASED GLUCOSE; Start 08/14/16 at 20:00 Glucagon (Glucagen) 1 mg Q15M PRN IM DECREASED GLUCOSE; Start 08/14/16 at 20:00 Glucose (Glutose) 15 gm Q15M PRN BUCCAL DECREASED GLUCOSE; Start 08/14/16 at 20 :00 Potassium Chloride (Potassium Chloride Pwd/Soln) 20 meq BID PO Last administered on 08/20/16 08:23; Admin Dose 20 MEQ; Start 08/16/16 at 21:00 Furosemide (Lasix) 40 mg Q8 IV Last administered on 08/20/16 15:09; Admin Dose 40 MG; Start 08/19/16 at 06:00 Lubiprostone (Amitiza) 24 mcg BID PO Last administered on 08/20/16 08:22; Admin Dose 24 MCG; Start 08/19/16 at 09:00 Pantoprazole (Protonix Tab) 40 mg DAILY@06 PO ; Start 08/21/16 at 06:00 YANIRA HART MD Aug 20, 2016 16:39
[2016-08-20 20:24] VITALS: BP 130/62; RESP 18
[2016-08-21] MEDS: ACCU-CHEK XX SCH (02:00)
[2016-08-21] MEDS: ACETAMINOPHEN 325 MG TAB PO PRN (04:40)
[2016-08-21 05:25] VITALS: BP 124/58; PULSE 65
[2016-08-21] MEDS: FUROSEMIDE 40 MG INJ IV SCH ×2 (05:28→13:34)
[2016-08-21] MEDS: SOD CHLORIDE 0.45% 1,000 ML IV SCH (05:35)
[2016-08-21] MEDS ORDERED: PANTOPRAZOLE (EC) 40 MG TAB PO SCH (06:00)
[2016-08-21] MEDS: INSULIN ASPART [NOVOLOG] 3 ML PEN SC SCH ×2 (08:06→12:15)
[2016-08-21 08:08] VITALS: BP 129/57; RESP 18
[2016-08-21] MEDS: LUBIPROSTONE 24 MCG CAP PO SCH (09:55)
[2016-08-21] MEDS: POTASSIUM CHLORIDE 20 MEQ POWDER FOR ORAL SOLN PO SCH (09:56)
[2016-08-21] MEDS: SUCRALFATE 1 GM TAB NGT SCH ×2 (09:56→13:34)
[2016-08-21] MEDS: APIXABAN 5 MG TABLET PO SCH (09:56)
--- NOTE | 2016-08-21 11:25 | CONS ---
Date/Time of Note Date/Time of Note DATE: 08/21/16 TIME: 11:23 Assessment/Plan Assessment/Plan Chief Complaint/Hosp Course IMPRESSION: 1. Congestive heart failure exacerbation, systolic, acute on chronic. EF 25% by most recent echo-worsening. Minimally + troponin after cardiac arrest 2. Resp failure s/p intubation/stable 3. Hypotension/shock-Now improved and tolerating BP medications 3. History of coronary artery bypass graft surgery. 4. Abnormal electrocardiogram . MIldly postive trop after cardiac arrest 5. History of paroxysmal atrial fibrillation-on apixaban 6. Acute on chronic renal failure-Now on HD 8. Anemia, mild. 9. 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 -HD held -Continue apixaban now that coagulopathy improved -PT/OT with eval for possible inpatient rehab -Should consider upgrade to BIV/ICD to improve CO as outpatient -resume low dose coreg as tolerated Problems: Consultation Date/Type/Reason Admit Date/Time Jul 18, 2016 at 14:06 Initial Consult Date 07/19/2016 Type of Consultation: Cardiology Reason for Consultation Cardiomyopathy/CHF Referring Provider: MURIEL EWING Exam/Review of Systems Vital Signs Vitals Vital Signs Date Time Temp Pulse Resp B/P Pulse Ox O2 Delivery O2 Flow Rate FiO2 08/21/16 08:08 98.5 65 18 129/57 95 08/21/16 01:10 Nasal Cannula 2.0 Intake and Output 08/20/16 08/20/16 08/21/16 15:00 23:00 07:00 Intake Total 240 ml 1680 ml 400 ml Output Total 2500 ml Balance 240 ml 1680 ml -2100 ml Exam Review of Systems: CONSTITUTIONAL: No fevers, chills. PULMONARY: No sob CARDIOVASCULAR: No chest pain/palpitations GASTROINTESTINAL: No nausea/vomiting. GENITOURINARY: No hematuria/dysuria. MUSCULOSKELETAL: No myagias/arthalgias. PSYCHIATRIC: The patient denies depression. NEUROLOGIC: lethargic Constitutional: alert Psych: no complaints Head: normocephalic ENMT: mucosa pink and moist Neck: jvd (9 cm water), supple (water) Respiratory: clear to auscultation Cardiovascular: regular rate and rhythm Gastrointestinal: soft Musculoskeletal: muscle weakness (generalized) Extremities: edema (none) Neurological: other (No focal deficits) Results Result Diagram: 08/20/16 0550 08/20/16 0550 Results 24 hrs Laboratory Tests Test 08/20/16 12:01 08/20/16 16:54 08/20/16 21:33 08/21/16 08:04 Bedside Glucose 135 118 100 94 Medications Medications Current Medications Aspirin (Halfprin) 81 mg DAILY PO Last administered on 08/05/16 09:06; Admin Dose 81 MG; Start 07/19/16 at 09:00; Status Future Hold Nitroglycerin (Nitroglycerin (Sl Tab) 0.4 Mg) 1 tab DAILY PRN SL CHEST PAIN; Start 07/18/16 at 15:30 Ondansetron HCl (Zofran Inj) 4 mg Q6H PRN IV NAUSEA AND/OR VOMITING Last administered on 08/05/16 23:48; Admin Dose 4 MG; Start 07/18/16 at 15:30 Acetaminophen (Tylenol Tab) 650 mg Q6H PRN PO PAIN LEVEL 1-3 OR FEVER Last administered on 08/21/16 04:40; Admin Dose 650 MG; Start 07/18/16 at 15:30 Acetaminophen (Tylenol Supp) 650 mg Q6H PRN [place] PAIN LEVEL 1-3 OR FEVER; Start 07/18/16 at 15:30 Docusate Sodium (Colace) 100 mg Q12H PRN PO CONSTIPATION Last administered on 20:19; Admin Dose 100 MG; Start 07/18/16 at 15:30 Magnesium Hydroxide (Milk Of Mag) 30 ml DAILY PRN PO CONSTIPATION Last administered on 08/18/16 15:27; Admin Dose 30 ML; Start 07/18/16 at 15:30 Bisacodyl (Dulcolax Supp) 10 mg DAILY PRN [place] CONSTIPATION Last administered on 08/15/16 01:50; Admin Dose 10 MG; Start 07/18/16 at 15:30 Miscellaneous Information 1 ea NOTE XX ; Start 07/18/16 at 17:30 Glucose (Glutose) 15 gm Q15M PRN PO DECREASED GLUCOSE; Start 07/18/16 at 17:30 Glucose (Glutose) 22.5 gm Q15M PRN PO DECREASED GLUCOSE; Start 07/18/16 at 17: 30 Dextrose (D50w Syringe) 25 ml Q15M PRN IV DECREASED GLUCOSE; Start 07/18/16 at 17:30 Dextrose (D50w Syringe) 50 ml Q15M PRN IV DECREASED GLUCOSE; Start 07/18/16 at 17:30 Glucagon (Glucagen) 1 mg Q15M PRN IM DECREASED GLUCOSE; Start 07/18/16 at 17:30 Glucose (Glutose) 15 gm Q15M PRN BUCCAL DECREASED GLUCOSE; Start 07/18/16 at 17 :30 Guaifenesin/ Codeine Phosphate (Robitussin Ac Liquid Cup) 10 ml Q4H PRN PO COUGH Last administered on 07/19/16 19:43; Admin Dose 10 ML; Start 07/18/16 at 23:30 Isosorbide Dinitrate 10 mg 10 mg TID PO Last administered on 08/03/16 19:58; Admin Dose 10 MG; Start 07/30/16 at 21:00; Status Future Hold Sodium Chloride (1/2 NS) 1,000 ml @ 20 mls/hr Q24H IV Last administered on 05:35; Admin Dose 20 MLS/HR; Start 08/08/16 at 07:00 Sucralfate (Carafate) 1 gm QID NGT Last administered on 08/21/16 09:56; Admin Dose 1 GM; Start 08/09/16 at 21:00 Apixaban (Eliquis) 2.5 mg BID PO Last administered on 08/21/16 09:56; Admin Dose 2.5 MG; Start 08/10/16 at 21:00 IV Flush (NS 10 ml) 10 ml PRN PRN IV IV PROTOCOL; Start 08/11/16 at 17:00 Hydralazine HCl (Apresoline) 10 mg Q8 PO Last administered on 08/21/16 05:28; Admin Dose 10 MG; Start 08/13/16 at 14:00 Amiodarone HCl (Cordarone) 200 mg BID NGT Last administered on 08/14/16 13:55 ; Admin Dose 200 MG; Start 08/13/16 at 21:00; Status Future Hold Promethazine HCl/ Dextromethorphan (Phenergan-Dm) 5 ml Q4H PRN PO COUGH; Start 08/14/16 at 16:30 Diagnostic Test (Pha) (Accucheck) 1 ea 02 XX ; Start 08/15/16 at 02:00 Miscellaneous Information 1 ea NOTE XX ; Start 08/14/16 at 20:00 Glucose (Glutose) 15 gm Q15M PRN PO DECREASED GLUCOSE; Start 08/14/16 at 20:00 Glucose (Glutose) 22.5 gm Q15M PRN PO DECREASED GLUCOSE; Start 08/14/16 at 20: 00 Dextrose (D50w Syringe) 25 ml Q15M PRN IV DECREASED GLUCOSE; Start 08/14/16 at 20:00 Dextrose (D50w Syringe) 50 ml Q15M PRN IV DECREASED GLUCOSE; Start 08/14/16 at 20:00 Glucagon (Glucagen) 1 mg Q15M PRN IM DECREASED GLUCOSE; Start 08/14/16 at 20:00 Glucose (Glutose) 15 gm Q15M PRN BUCCAL DECREASED GLUCOSE; Start 08/14/16 at 20 :00 Potassium Chloride (Potassium Chloride Pwd/Soln) 20 meq BID PO Last administered on 08/21/16 09:56; Admin Dose 20 MEQ; Start 08/16/16 at 21:00 Furosemide (Lasix) 40 mg Q8 IV Last administered on 08/21/16 05:28; Admin Dose 40 MG; Start 08/19/16 at 06:00 Lubiprostone (Amitiza) 24 mcg BID PO Last administered on 08/21/16 09:55; Admin Dose 24 MCG; Start 08/19/16 at 09:00 Pantoprazole (Protonix Tab) 40 mg DAILY@06 PO Last administered on 08/21/16 05 :27; Admin Dose 40 MG; Start 08/21/16 at 06:00 POLI SAN Aug 21, 2016 11:25
--- NOTE | 2016-08-21 13:30 | DS ---
DATE OF ADMISSION: 07/18/2016 DATE OF DISCHARGE: 08/21/2016 CONSULTANTS: 1. Dr. Pedro Lamar. 2. Dr. Kevon Betts. 3. Dr. Elroy Hernandez. 4. Dr. Lydia Marie. 5. Dr. Mars Larkin. 6. Dr. Diomedes Antony. DISCHARGE DIAGNOSES: 1. Respiratory failure secondary to pulmonary edema, possible aspiration pneumonia, resolved. 2. Acute on chronic congestive heart failure. 3. Ischemic cardiomyopathy, ejection fraction 25%, status post AICD placed. 4. Diabetes mellitus type 2. 5. Atrial fibrillation. 6. History of coronary artery disease, status post coronary artery bypass graft. 7. Acute on chronic renal insufficiency, status post hemodialysis. Renal panel stable. The patien t is off dialysis. 8. Acute encephalopathy secondary to uremic syndrome, now improved. 9. Debility. 10. Pulmonary edema. 11. Chronic anticoagulation. MEDICATIONS: 1. Amiodarone. 2. Eliquis. 3. Aspirin. 4. Dulcolax. 5. Coreg. 6. Lasix. 7. Robitussin-AC 8. Hydralazine p.r.n. 9. Insulin sliding scale. 10. Atrovent. 11. Isordil. 12. Xopenex. 13. Milk of magnesia. 14. Nitroglycerin. 15. Zofran. 16. Potassium chloride. 17. Sucralfate. 18. Metformin. 19. Protonix. FOLLOWUP: 1. Follow up with Dr. Betts. 2. Follow up with Dr. Pedro Lamar. 3. PT, OT evaluate and treat. HOSPITAL COURSE: This is an 81-year-old gentleman with past medical history of respiratory failure, congestive heart failure, systolic and diastolic dysfunction, ischemic cardiomyopathy with ejection fraction of 25%, chronic kidney disease, coagulopathy, lactic acidosis, type 2 diabetes mellitus, a trial fibrillation, iron deficiency, coronary artery disease status post CABG, pulmonary hypertensio n, who was brought into [facility] secondary to having shortness of breath and debility. According to patient, the patient was having increased shortness of breath x3 days as sociated with swelling in bilateral lower extremity. His breathing became so labored when he lied d own and he was having paroxysmal nocturnal dyspnea and he was also having difficulty with ambulation secondary to shortness of breath. The patient was followed by Dr. Kevon Betts, flux mixer, as an outpatient. His BUN was found to be 34, creatinine 1.55. He was admitted for diuresis and IV an tibiotics. He was found to have renal insufficiency. Therefore, nephrology was consulted and the p atient had placement of right femoral hemodialysis catheter and was placed on dialysis secondary to his creatinine bump from 1.55 to 2.35. He was found to be fluid overloaded. He was diuresed via di uresis and hemodialysis. His blood glucose was found to be in stable range with insulin sliding sca le. His blood pressure has been stable on Coreg and Lasix. Regarding his breathing status, as stated above, he was intubated during the course of hospitalizati on secondary to having respiratory failure. He was placed in ICU. After evaluation by the pulmonol ogist, and diuresis with hemodialysis, the patient was able to be weaned off from the vent and was e xtubated and was transferred to telemetry floor, which he has been able to tolerate oxygen via nasal cannula. He was seen and evaluated by physical therapy. There was an attempt to transfer the clay ent to acute rehab for further evaluation and physical therapy, although unfortunately he was not ac cepted. The patient's creatinine has been back to his baseline. He has been able to tolerate his o ral intake and as per nephrology, the hemodialysis has been discontinued and his right femoral hemod ialysis catheter was removed. As per cardiology and nephrology, the patient is medically stable to be transferred to a [facility]dc facility for further evaluation and physical therapy. LABORATORY DATA: Sodium 136, potassium 3.8, chloride 97, bicarbonate 32, BUN 28, creatinine 1.05, g lucose 96. WBC 5.3, hemoglobin 10.1, hematocrit 33.9, platelets 418. CONDITION AT TIME OF DISCHARGE: Stable. Dictated By: HAKAN YOST/SHAHANA Conf#: [id number] DID#: [id number]
== END 2016-08-21 15:00 | DRG 291 ==
LOC: E/R 10:49 → TEL 14:06 → ICU 08-06 01:30 → TEL 08-12 16:40 → MS2 08-19 16:00
PROVIDERS: ADMIT Hospitalist; ATTEND Hospitalist
PROC: 06HM33Z Insertion of Infusion Device into Right Femoral Vein, Percutaneous Approach (ICD-10-PCS; principal; 2016-08-01)
PROC: 5A1D60Z (ICD-10-PCS; 2016-08-02)
PROC: 5A1955Z Respiratory Ventilation, Greater than 96 Consecutive Hours (ICD-10-PCS; 2016-08-06)
PROC: 0BH17EZ Insertion of Endotracheal Airway into Trachea, Via Natural or Artificial Opening (ICD-10-PCS; 2016-08-06)
PROC: 5A12012 Performance of Cardiac Output, Single, Manual (ICD-10-PCS; 2016-08-06)
PROC: 06HN33Z Insertion of Infusion Device into Left Femoral Vein, Percutaneous Approach (ICD-10-PCS; 2016-08-06)
DX: I13.0 Hypertensive heart and chronic kidney disease with heart failure and stage 1 through stage 4 chronic kidney disease, or unspecified chronic kidney disease (principal); I50.23 Acute on chronic systolic (congestive) heart failure; J69.0 Pneumonitis due to inhalation of food and vomit; J96.01 Acute respiratory failure with hypoxia; N17.9 Acute kidney failure, unspecified; G93.49 Other encephalopathy; I46.9 Cardiac arrest, cause unspecified; E87.1 Hypo-osmolality and hyponatremia; E11.22 Type 2 diabetes mellitus with diabetic chronic kidney disease; I25.5 Ischemic cardiomyopathy; I25.10 Atherosclerotic heart disease of native coronary artery without angina pectoris; I48.0 Paroxysmal atrial fibrillation; I27.2 Other secondary pulmonary hypertension; D64.9 Anemia, unspecified; N18.9 Chronic kidney disease, unspecified; E87.5 Hyperkalemia; K74.60 Unspecified cirrhosis of liver; R31.9 Hematuria, unspecified; R53.81 Other malaise; Z95.810 Presence of automatic (implantable) cardiac defibrillator; Z95.1 Presence of aortocoronary bypass graft; Z79.02 Long term (current) use of antithrombotics/antiplatelets; Z79.4 Long term (current) use of insulin
CPT/HCPCS: 31500; 36415; 36430; 36569; 36600; 70450; 71010; 74000; 74176; 76937; 80048; 80053; 80061; 80202; 81001; 81003; 82140; 82550; 82553; 82570; 82803; 82962; 83036; 83605; 83735; 84100; 84132; 84155; 84300; 84436; 84443; 84479; 84484; 85025; 85610; 85730; 86704; 86709; 86803; 86850; 86900; 86901; 87081; 87340; 90935; 92610; 92950; 93005; 94002; 94003; 94640; 94644; 94664; 94770; 96372; 96374; 96375; 96376; 97110; 97116; 97163; 97530; J1940; C1752; C9113; J0171; J1644; J1815; J2150; J2270; J2310; J2405; J2543; J3370; J3475; J3480; J7030; J7040; J7050; J7060; P9047; P9059; Q9967

== ENCOUNTER 2016-08-27 16:49 | Inpatient (IN) | payer MEDICARE, OTHER ==
[~2016-08-27] VITALS: Ht 157.5 cm; Wt 71.2 kg
[~2016-08-27 16:49] MED LIST changes: -ALBU8.5H3 INH; +AMIO200T2 PO; -APIX2.5T PO; +APIX5TAB PO; +ASPI-664 PO; -FER325 PO; +ISOS10TA2 PO; -POTA10TA18 PO; +SUCR1TAB27 NGT
[2016-08-27 17:52] LABS: ADD SCAN DIFF NO
[2016-08-27 17:54] LABS: ABNORMAL IP MESSAGE 1; BASOPHILS % 0.3 % (0.0-2.0); EOSINOPHILS % 0.2 % (0.0-7.0); HEMATOCRIT 36.2 % (42.0-52.0); HEMOGLOBIN 10.7 g/dl (14.0-18.0); LYMPHOCYTES # 0.7 10^3/ul (0.8-2.9); LYMPHOCYTES % 12.1 % (15.0-51.0); MEAN CORPUSCULAR HEMOGLOBIN 25.4 pg (29.0-33.0); MEAN CORPUSCULAR HGB CONC 29.6 g/dl (32.0-37.0); MEAN PLATELET VOLUME 9.2 fl (7.4-10.4); MONOCYTE # 0.8 10^3/ul (0.3-0.9); MONOCYTES % 12.9 % (0.0-11.0); NEUTROPHIL # 4.4 10^3/ul (1.6-7.5); NUCLEATED RED BLOOD CELLS # 0.1 10^3/ul (0.0-0.0); NUCLEATED RED BLOOD CELLS% 2.2 /100WBC (0.0-0.0); PLATELET COUNT 358 10^3/UL (140-415); RED BLOOD COUNT 4.21 10^6/ul (4.70-6.10); RED CELL DISTRIBUTION WIDTH 24.4 % (11.5-14.5)
[2016-08-27] MEDS ORDERED: NA BICARBONATE 8.4% 50 ML SYG IV STA (18:05)
[2016-08-27] MEDS ORDERED: CA CHLORIDE 10% 10 ML SYRINGE IV STA (18:05)
[2016-08-27] MEDS ORDERED: NA POLYST SULFON 15 GM/60 ML BTL PO STA (18:05)
[2016-08-27 18:09] LABS: INR 2.83; POTASSIUM 4.3 mmol/L (3.5-5.1); PROTIME 30.1 Sec (12.2-14.2); PT RATIO 2.4
[2016-08-27 18:10] LABS: PARTIAL THROMBOPLASTIN TIME 56.6 Sec (25.0-35.0)
[2016-08-27 18:12] LABS: CREATININE 2.72 mg/dl (0.61-1.24)
[2016-08-27 18:13] LABS: CALCIUM 9.2 mg/dl (8.4-10.2)
--- NOTE | 2016-08-27 18:25 | RADRPT ---
PROCEDURE: XR Chest. CLINICAL INDICATION: 82 ml was shortness of breath. TECHNIQUE: Single frontal view of the chest was obtained COMPARISON: Chest x-ray 08/18/2016. FINDINGS: The soft tissues are normal. A mediastinotomy was performed. There are degenerative osteophytes in the thoracic spine. The the heart is enlarged. cardiomediastinal silhouette and hilar structures are normal. The pulmonary vasculature is increased with perihilar interstitial and basilar infiltrat es. The left diaphragm is obscured. There are vascular calcifications in the aortic arch. There are interstitial perihilar and basilar infiltrates. The left pleural effusion is suspected. A single channel cardiac pacemaker is identified over the left chest wall with electrode leads projecting at the level of the right ventricle. IMPRESSION: 1. Congestive heart failure with interstitial pulmonary edema and a left pleural effusion. A right pleural effusion is not excluded. 2. Status post median sternotomy. 3. Atherosclerotic vascular disease. 4. Consolidative infiltrate in the left lower lobe which has worsened compared to 08/18/2016. Comp ressive atelectasis or consolidative infiltrate from pneumonia might present this fashion. RPTAT:AAJJ Physician Joselyn Date Time Electronically viewed and signed by Physician Joselyn on 08/27/2016 18:24 TIMOTHY/
[2016-08-27] MEDS ORDERED: VANCOMYCIN 1 GM (PMX) 250 ML IVPB STA (18:31)
[2016-08-27] MEDS ORDERED: CEFEPIME 1GM/50 ML (PMX) 50 ML IVPB STA (18:31)
[2016-08-27 18:34] LABS: TROPONIN-I 0.013 ng/ml (0.00-0.12)
[2016-08-27 18:42] LABS: ADD UMIC YES; URINE BILIRUBIN (Dip) 1+ (NEGATIVE); URINE BLOOD (Dip) 2+ (NEGATIVE); URINE COLOR LT. YELLOW (YELLOW); URINE GLUCOSE (Dip) NEGATIVE (NEGATIVE); URINE KETONES (Dip) NEGATIVE (NEGATIVE); URINE LEUKOCYTE ESTERASE (Dip) 2+ (NEGATIVE); URINE NITRITE (Dip) NEGATIVE (NEGATIVE); URINE TOTAL PROTEIN (Dip) 2+ (NEGATIVE); URINE UROBILINOGEN (Dip) 2.0 E.U./dL (0.1-1.0)
[2016-08-27 18:42] LABS: ALBUMIN 3.6 g/dl (3.3-4.9)
[2016-08-27 18:45] LABS: BILIRUBIN,INDIRECT 0.5 mg/dl (0-1.1); BILIRUBIN,TOTAL 0.5 mg/dl (0.2-1.3)
[2016-08-27 19:05] LABS: ICTOTEST NEGATIVE (NEGATIVE)
[2016-08-27 19:06] LABS: BACTERIA,URINE MANY; SQUAMOUS EPITHELIAL CELL,UR FEW
[2016-08-27] MEDS ORDERED: ZINC220T PO (19:12)
[2016-08-27] MEDS ORDERED: ASC500 PO (19:12)
[2016-08-27] MEDS ORDERED: TYL500 PO (19:13)
[2016-08-27] MEDS ORDERED: ACET325T33 PO (19:15)
[2016-08-27] MEDS ORDERED: UDROBAC PO (19:15)
[2016-08-27] MEDS ORDERED: PANT40TA3 PO (19:16)
[2016-08-27] MEDS ORDERED: MAGN400O4 PO (19:17)
[2016-08-27] MEDS ORDERED: MULT-105 PO (19:17)
[2016-08-27] MEDS ORDERED: HYDR-3670 PO (19:19)
[2016-08-27] MEDS ORDERED: ASPI81TA3 PO (19:20)
[2016-08-27] MEDS ORDERED: DOCU-144 PO (19:21)
[2016-08-27] MEDS ORDERED: CARV3.1260 PO (19:22)
--- NOTE | 2016-08-27 19:22 | RADRPT ---
PROCEDURE: CT scan of the abdomen and pelvis without IV contrast. CLINICAL INDICATION: 81-year-old male with diffuse abdominal pain. TECHNIQUE: Thin section axial, coronal and sagittal images were performed through the abdomen and pelvis without contrast. Radiation Dose: CTDI: 11.26 and DLP: 594.66 One or more of the following dose reduction techniques were used: - Automated exposure control. - Adjustment of the mA and/or kV according to patient size. Use of iterative reconstruction technique. COMPARISON: Chest x-ray 07/03/2016 06:18 a.m. FINDINGS: Soft tissues: There is anasarca no with stranding of subcutaneous tissues around the circumference o f the abdomen and pelvis.. Lungs and pleural spaces: There are bilateral pleural effusions. There ground-glass infiltrates in the right lower lobe. There are plate-like densities and peripheral alveolar densities in the right lower lobe. There are bronchograms with consolidative infiltrate in the left lower lobe. No pulmo nary nodule is identified. Heart: There are vascular calcifications in the coronary arteries. The heart is enlarged. There is a cardiac pacemaker lead with its tip in the right ventricle. A mediastinotomy was performed. The liver, common bile duct and gallbladder: There is moderate ascites adjacent to the liver. The l iver measures 14.3 cm AP. No periportal edema, intrahepatic biliary ductal dilatation or hepatic ma ss is identified. The gallbladder and gallbladder wall are normal. Gastrointestinal: There is no hiatal hernia. The stomach is normal. The small bowel loops have a n ormal caliber. There is fecal material in the ascending colon. The vermiform appendix is normal. There are diverticula in the sigmoid colon. There is some diffuse pain stranding in the mesenteric fat. Pancreas: Normal. Kidneys, bladder and adrenal glands : The adrenal glands are normal. A 9.6 mm by 5.3 mm nonobstructi ve nephrolith is present in the lower pole frank of the left kidney. A benign 4.5 cm renal cyst is arising in the subcapsular portion of the lower half of the left kidney. There are vascular calcific ations in the proximal right renal artery. No stenosis is identified. The urinary bladder is normal . A 3.8 mm nonobstructive nephrolith is noted in the lower pole frank of the right kidney. There are vascular calcifications in the distal right renal artery. Spleen: Normal. Lymph nodes: No enlarged periportal, retroperitoneal, pelvic sidewall or inguinal lymph nodes are id entified. Reproductive system and pelvis : The prostate gland seminal vesicles are unremarkable. Bony elements: There are degenerative osteophytes in the thoracic and lumbosacral spine. No acute b salas fracture is identified. There is vacuum disk phenomenon and ventral as well as mild dorsal spondylosis at L1-2. There are degenerative changes in the facets bilaterally at L4-5 with ventral and dorsal spondylosis . There is a 5 mm AP dorsal disk osteophyte complex at L2-3 with borderline bilateral bony nerve root canal stenosis. There are degenerative changes in the facets bilaterally at L3-4 with vacuum disk phenomenon and venita marylou spondylosis. There is a bony left nerve root canal stenosis. There is a borderline bony right nerve root canal stenosis. There is a 4.6 mm AP dorsal disk osteophyte complex with hypertrophy of the ligamentum flavum. A central canal stenosis is suspected. There is a bony left L4-5 nerve root canal stenosis. There is moderate bony narrowing of the right nerve root canal. There are degenera tive changes in the facets bilaterally at L5-S1 with disk space narrowing and vacuum disk phenomenon . There is a bony right nerve root canal stenosis. There is a borderline bony left nerve root venkat l stenosis at L5-S1. Vasculature: There are atherosclerotic vascular calcifications in the thoracic aorta, abdominal aort a, common iliac arteries, and internal iliac arteries. The right common iliac arteries measures up to 1.3 cm AP. The left common iliac artery measures up to 12.7 cm AP. There are vascular calcifications in the common femoral arteries. IMPRESSION: 1. There are moderate size pleural effusions with consolidative infiltrate and atelectasis in the l eft lower lobe. 2. There ground-glass infiltrates and peripheral alveolar infiltrates in the right lower lobe with peribronchial cuffing. Bronchiolitis with pneumonia should be considered in the differential diagno sis. 3. Cardiomegaly. 4. Cardiac electrode with its tip projecting in the right ventricle with evidence of prior median s ternotomy. 5. Anasarca. 6. Atherosclerotic vascular disease. 7. 3.8 mm nonobstructive nephrolith lower pole frank right kidney. 9.6 x 5.3 mm nonobstructive nep hrolith lower pole frank left kidney. 8. 4.5 cm benign renal cyst lower half left kidney. 9. Ascites. RPTAT:AAJJ Nikhil Olguin, Physician Date Time Electronically viewed and signed by Nikhil Olguin Physician on 08/27/2016 19:22 /
[2016-08-27] MEDS ORDERED: BISA10SU75 PR (19:23)
[2016-08-27] MEDS ORDERED: CRAN425C PO (19:23)
[2016-08-27] MEDS ORDERED: APIX2.5T PO (19:24)
[2016-08-27] MEDS ORDERED: FLEETPED PR (19:25)
--- NOTE | 2016-08-27 19:28 | ERA ---
ER Documentation Chief Complaint Date/Time DATE: 08/27/16 TIME: 19:13 Chief Complaint SENT FROM [facility] FOR SWELLING IN LEGS AND SOB HPI 81-year-old male with a history of ischemic cardiomyopathy with diastolic CHF, type 2 diabetes, coronary artery disease status post CABG, anemia, chronic kidney disease, hypertension presenting from his rehab facility for worsening shortness of breath. Per his daughter he was hospitalized for over a month recently and discharged 1 week ago. He was on dialysis while he was here but they remove the catheter about 1 week ago because they stated that he did not need dialysis anymore. He has been having increasing peripheral edema and shortness of breath since. He denies any associated chest pain. He is urinating but not much per his daughter. No fevers, chills, cough. ROS All systems reviewed and are negative except as per history of present illness. Medications Home Meds Active Scripts Sucralfate (Carafate) 1 Gm Tablet, 1 GM NGT QID for 1 Day, TAB Prov:HAKAN REINA MD 08/17/16 Reported Medications Albuterol Sulfate* (Albuterol Sulfate* Neb) 0.083%-3 Ml Neb, 2.5 MG NEB Q6H Y for WHEEZING AND SOB, #30 VIAL 08/27/16 Levalbuterol Hcl* (Levalbuterol Hcl*) 0.63 Mg/3 Ml Vial.neb, 0.63 MG INHALATION Q6H Y for WHEEZING AND SOB, VIAL 08/27/16 Isosorbide Dinitrate* (Isosorbide Dinitrate*) 10 Mg Tablet, 10 MG PO TID, TAB HOLD IF SBP BELOW 110 OR HR BELOW 60 08/27/16 Sod Phosphate/Sod Biphosphate* (Fleet* Enema Pediatric) 66.6 Ml Soln, 66.6 ML AR Q2DAYS Y for CONSTIPATION, ENEMA 08/27/16 Apixaban* (Eliquis*) 2.5 Mg Tablet, 2.5 MG PO BID, TAB 08/27/16 Bisacodyl* (Bisacodyl*) 10 Mg Supp, 10 MG AR Q24H Y for PRN, SUPP 08/27/16 Cranberry Extract (Cranberry) 425 Mg Capsule, 425 MG PO BID, CAP 08/27/16 Carvedilol* (Carvedilol*) 3.125 Mg Tablet, 3.125 MG PO BID, #60 TAB HOLD IF SBP BELOW 110 OR HR BELOW 60 08/27/16 Docusate Sodium* (Colace*) 100 Mg Capsule, 200 MG PO QHS, #30 CAP 08/27/16 Aspirin* (Aspirin* Chew) 81 Mg Tab.chew, 81 MG PO DAILY, TAB.CHEW 08/27/16 Hydralazine Hcl* (Hydralazine Hcl*) 10 Mg Tablet, 10 MG PO Q8 Y for HTN, #90 TAB HOLD IF SBP BELOW 110 OR HR BELOW 60 08/27/16 Magnesium Hydroxide* (Milk Of Magnesia*) 400 Mg/5 Ml Oral.susp, 30 ML PO Q24H Y for HS, ML 08/27/16 Multivitamin with Minerals (Multivitamins with Minerals) 1 Each Tablet, 1 EACH PO DAILY, TAB 08/27/16 Pantoprazole* (Protonix*) 40 Mg Tablet.dr, 40 MG PO DAILY, TAB 08/27/16 Guaifenesin-Codeine Phosphate* (Robitussin* AC) 5 Ml Syrup, 10 ML PO Q4H Y for COUGH, ML 08/27/16 Acetaminophen* (Tylenol*) 325 Mg Tablet, 650 MG PO Q4H Y for MILD PAIN LEVEL 1-3 , TAB FOR FEVER 100 AND ABOVE 08/27/16 Acetaminophen* (Tylenol*) 500 Mg Tab, 1000 MG PO Q4H Y for PAIN LEVEL 4-6/10, TAB 08/27/16 Ascorbic Acid (Vitamin C) 500 Mg Tab, 500 MG PO DAILY, TAB 08/27/16 Zinc Sulfate* (Zinc Sulfate*) 220 Mg Tablet, 220 MG PO DAILY, TAB 08/27/16 Amiodarone Hcl* (Amiodarone Hcl*) 200 Mg Tablet, 200 MG PO BID, #60 TAB HOLD IF HR<60 07/18/16 Nitroglycerin* (Nitrostat*) 0.4 Mg Tab.subl, 0.4 MG SL DAILY Y for CHEST PAIN, BOTTLE 05/27/16 Furosemide* (Lasix*) 40 Mg Tablet, 40 MG PO DAILY, TAB HOLD IF SBP BELOW 110 OR HR BELOW 60 10/16/15 Metformin* (Glucophage*) 500 Mg Tab, 500 MG PO BID, TAB 09/11/14 Discontinued Reported Medications Aspirin (Low Dose Aspirin) 81 Mg Tablet.dr, 81 MG PO DAILY, #30 TAB 07/18/16 Sucralfate* (Carafate*) 1 Gm Tab, 1 GM PO QID, TAB 05/27/16 Lisinopril* (Lisinopril*) 2.5 Mg Tablet, 2.5 MG PO DAILY, #30 TAB 05/27/16 Omeprazole* (Omeprazole*) 40 Mg Capsule.dr, 40 MG PO QAM, #30 CAP 05/27/16 Discontinued Scripts Isosorbide Dinitrate* (Isordil*) 10 Mg Tablet, 10 MG PO TID for 1 Day, TAB Prov:HAKAN REINA MD 08/17/16 Carvedilol* (Carvedilol*) 6.25 Mg Tablet, 3.125 MG PO BID for 1 Day, TAB Prov:HAKAN REINA MD 08/17/16 Apixaban* (Eliquis*) 5 Mg Tablet, 2.5 MG PO BID for 1 Day, TAB Prov:HAKAN REINA MD 08/17/16 Allergies Allergies: Coded Allergies: dipyrone (Verified Allergy, Unknown, BRUISES, 08/27/16) ALLERGY FROM [place] PMhx/Soc History of Surgery: Yes (5x bypass Open heart surgery 2013) Anesthesia Reaction: No Hx Neurological Disorder: No Hx Respiratory Disorders: Yes (CHF) Hx Cardiac Disorders: Yes (CHF, STENTS, PACEMAKER, HTN, AMI ) Hx Psychiatric Problems: No Hx Miscellaneous Medical Probl: Yes (DM, AFIB, CKD) Hx Alcohol Use: No Hx Substance Use: No Hx Tobacco Use: No Smoking Status: Never smoker FmHx Family History: No diabetes Physical Exam Vitals Vital Signs Date Time Temp Pulse Resp B/P Pulse Ox O2 Delivery O2 Flow Rate FiO2 08/27/16 21:20 65 24 108/55 98 Nasal Cannula 2.0 08/27/16 20:26 98.3 60 30 106/55 98 Nasal Cannula 2.0 08/27/16 18:55 62 30 115/55 98 Nasal Cannula 2.0 08/27/16 18:22 98.3 64 24 107/62 100 Nasal Cannula 2.0 08/27/16 18:21 Nasal Cannula 2 08/27/16 17:57 Nasal Cannula 4.0 08/27/16 17:56 60 28 107/62 100 Nasal Cannula 4.0 08/27/16 17:07 98.6 60 18 113/55 100 Physical Exam Const: Chronically ill-appearing, ashy colored skin, nontoxic, mild respiratory distress Head: Atraumatic Eyes: Normal Conjunctiva, no scleral icterus ENT: Dry oral mucosa Neck: Full range of motion. No meningismus. Resp: Diminished breath sounds bilaterally with bibasilar crackles Cardio: Sternotomy scar noted. Regular rate and rhythm, no murmurs. Abd: Soft, mildly distended, mildly tender diffusely, no rebound or guarding. Normal bowel sounds Skin: No petechiae or rashes Back: No midline or flank tenderness Ext: No cyanosis, 1+ lower extremity edema bilaterally, no calf tenderness Neur: Awake and alert and oriented, moving all extremities, no facial asymmetry Result Diagram: 08/27/16 1740 08/27/16 1740 Results 24 hrs Laboratory Tests Test 08/27/16 17:40 08/27/16 18:30 08/27/16 19:50 White Blood Count 6.010^3/ul Red Blood Count 4.2110^6/ul Hemoglobin 10.7g/dl Hematocrit 36.2% Mean Corpuscular Volume 86.0fl Mean Corpuscular Hemoglobin 25.4pg Mean Corpuscular Hemoglobin Concent 29.6g/dl Red Cell Distribution Width 24.4% Platelet Count 74904^3/UL Mean Platelet Volume 9.2fl Neutrophils % 74.0% Lymphocytes % 12.1% Monocytes % 12.9% Eosinophils % 0.2% Basophils % 0.3% Nucleated Red Blood Cells % 2.2/100WBC Neutrophils # 4.410^3/ul Lymphocytes # 0.710^3/ul Monocytes # 0.810^3/ul Eosinophils # 0.010^3/ul Basophils # 0.010^3/ul Nucleated Red Blood Cells # 0.110^3/ul Prothrombin Time 30.1Sec Prothrombin Time Ratio 2.4 INR International Normalized Ratio 2.83 Activated Partial Thromboplast Time 56.6Sec Sodium Level 130mmol/L Potassium Level 4.3mmol/L Chloride Level 89mmol/L Carbon Dioxide Level 22mmol/L Anion Gap 23 Blood Urea Nitrogen 63mg/dl Creatinine 2.72mg/dl Glucose Level 138mg/dl Lactic Acid Level 7.0mmol/L 6.2mmol/L Calcium Level 9.2mg/dl Total Bilirubin 0.5mg/dl Direct Bilirubin 0.00mg/dl Indirect Bilirubin 0.5mg/dl Aspartate Amino Transf (AST/SGOT) 31IU/L Alanine Aminotransferase (ALT/SGPT) 34IU/L Alkaline Phosphatase 172IU/L Troponin I 0.013ng/ml B-Type Natriuretic Peptide [id number]/ML Total Protein 7.0g/dl Albumin 3.6g/dl Urine Color LT. YELLOW Urine Clarity CLOUDY Urine pH 5.0 Urine Specific [place] >=1.030 Urine Ketones NEGATIVE Urine Nitrite NEGATIVE Urine Bilirubin 1+ Urine Ictotest NEGATIVE Urine Urobilinogen 2.0 E.U./dL Urine Leukocyte Esterase 2+ Urine Microscopic RBC 5-10/HPF Urine Microscopic WBC >200/HPF Urine Squamous Epithelial Cells FEW Urine Bacteria MANY Urine Hemoglobin 2+ Urine Glucose NEGATIVE% Urine Total Protein 2+ Current Medications Medications (Trade) Dose Ordered Sig/Jeff Route PRN Reason Start Time Stop Time Status Last Admin Dose Admin Sodium Polystyrene Sulfonate (Kayexalate) 30 gm ONCE STAT PO 08/27/16 18:05 08/27/16 18:18 DC Sodium Bicarbonate (Na Bicarb 8.4% Syg) 50 ml ONCE STAT IV 08/27/16 18:05 08/27/16 18:07 DC 08/27/16 18:11 Calcium Chloride 1000 mg 1,000 mg ONCE STAT IV 08/27/16 18:05 08/27/16 18:07 DC 08/27/16 18:11 Cefepime HCl 50 ml @ 100 mls/hr ONCE STAT IVPB 08/27/16 18:31 08/27/16 19:00 DC 08/27/16 19:55 Vancomycin HCl (Vancocin) 250 ml @ 125 mls/hr ONCE STAT IVPB 08/27/16 18:31 08/27/16 20:30 DC 08/27/16 20:23 Senna (Senokot) 1 tab ONCE ONCE PO 08/27/16 20:00 08/27/16 20:01 DC 08/27/16 20:23 Bumetanide (Bumex) 1 mg NOW ONCE IV 08/27/16 20:00 08/27/16 20:01 DC 08/27/16 20:23 Procedures/MDM EMERGENT LABS AND DIAGNOSTIC STUDIES: Lab Results above were reviewed and interpreted by me. CBC shows anemia CMP shows elevated BUN and creatinine, normal potassium BNP significantly elevated Urinalysis consistent with infection Lactic acidosis 12-lead EKG was interpreted by Jam Lane MD: V paced rhythm QTC 611 Wide QRS with left bundle branch block pattern No acute ST or T wave changes suggestive of acute ischemia or STEMI. Radiology Results as interpreted by Radiology below were reviewed by Anaya Lane MD: Chest x-ray: IMPRESSION: 1. Congestive heart failure with interstitial pulmonary edema and a left pleural effusion. A right pleural effusion is not excluded. 2. Status post median sternotomy. 3. Atherosclerotic vascular disease. 4. Consolidative infiltrate in the left lower lobe which has worsened compared to 08/18/2016. Compressive atelectasis or consolidative infiltrate from pneumonia might present this fashion. CT abdomen and pelvis: IMPRESSION: 1. There are moderate size pleural effusions with consolidative infiltrate and atelectasis in the left lower lobe. 2. There ground-glass infiltrates and peripheral alveolar infiltrates in the right lower lobe with peribronchial cuffing. Bronchiolitis with pneumonia should be considered in the differential diagnosis. 3. Cardiomegaly. 4. Cardiac electrode with its tip projecting in the right ventricle with evidence of prior median sternotomy. 5. Anasarca. 6. Atherosclerotic vascular disease. 7. 3.8 mm nonobstructive nephrolith lower pole frank right kidney. 9.6 x 5.3 mm nonobstructive nephrolith lower pole frank left kidney. 8. 4.5 cm benign renal cyst lower half left kidney. 9. Ascites. Initial Nursing notes reviewed. Previous Medical Records requested via the Electronic Health Record. Medical records reviewed: 08/24: BUN was 31, creatinine was 1.6, potassium was 5.8, hemoglobin was 10.4 EMERGENCY DEPARTMENT COURSE / MEDICAL DECISION MAKING: Patient is presenting with worsening anasarca and shortness of breath. He is clinically volume overloaded. His x-ray is consistent with pulmonary edema secondary to CHF. There is no infiltrates consistent with pneumonia. He does have a UTI and an elevated lactate. This is indicative of septic shock. However he may also have a component of cardiogenic shock. His renal function is abnormal and worsening compared to blood work done 3 days ago, however his potassium is normal. He does not need emergent dialysis at this time as he is still urinating, however if he does not respond to IV diuretics, he may need dialysis for his fluid overload. Patient's symptoms have not stabilized and the patient is at risk of rapid decompensation. The patient will be admitted for respiratory monitoring, diuresis, antibiotic therapy, and infectious source control. Severe Sepsis Assessment: Infectious Source: UTI End organ damage indicated by: Lactate > 2.0 mmol/L Airway Traffic Controller > 2.0 Severe Sepsis Managment: Blood Cultures X 2 before broad spectrum antibiotics initiated within 3 hours of recognition. 30 ml/kg NS bolus unable to give a fluid bolus as the patient is severely fluid overloaded and this would likely worsen his condition Initial Lactate: 7 Repeat Lactate 6.2 --> 5.6 Critical Care: Time: 40 minutes Treatments/Evaluations: Emergent fluid management, while maintaining close respiratory support. Immediate broad spectrum antibiotic therapy. Simultaneous assessment for possible sources in order to direct therapy. Consideration for invasive and chemical support to prevent respiratory or cardiac collapse. Septic Shock Assessment: Hypotension (SBP < 90 or 40 mmHg drop, MAP < 65): No Lactic acid > 4.0 yes Perfusion Reassessment for Septic Shock: Temp afebrile, pulse 60, RR 30, BP 106/55 Heart Exam: Normal rate and rhythm Lung Exam: Bibasilar crackles Capillary Refill: Delayed Peripheral Pulses: Radially present Skin: Ashy discoloration of skin, warm, dry Accepting Care Team: Current data and ongoing care discussed. Time: Time of admission Primary Provider: Clay Consulting: none Outstanding Data: Cultures, lactate Departure Diagnosis: Primary Impression: Septic shock Additional Impressions: Acute renal failure Qualified Code: N17.9 - Acute renal failure, unspecified acute renal failure type Urinary tract infection Qualified Code: N39.0 - Urinary tract infection without hematuria, site unspecified Acute exacerbation of CHF (congestive heart failure) Qualified Code: I50.43 - Acute on chronic combined systolic and diastolic congestive heart failure Condition: Critical EKSERENA WHITNEY MD Aug 27, 2016 19:24
[2016-08-27] MEDS ORDERED: ISOS10TA2 PO (19:29)
[2016-08-27] MEDS ORDERED: LEVA0.634 INHALATION (19:30)
[2016-08-27] MEDS ORDERED: ALBU2.5V3 NEB (19:32)
[2016-08-27] MEDS ORDERED: SENNA TAB PO ONE (20:00)
[2016-08-27] MEDS ORDERED: BUMETANIDE 1 MG INJ IV ONE (20:00)
[2016-08-27 20:26] VITALS: TEMP 98.3
[2016-08-27] MEDS ORDERED: ONDANSETRON 4 MG INJ IV PRN ×2 (21:30→23:00)
[2016-08-27] MEDS ORDERED: ACETAMINOPHEN 325 MG TAB PO PRN (21:30)
[2016-08-27 22:30] VITALS: PULSE 60
[2016-08-27] MEDS ORDERED: GLUCAGON 1 MG INJ IM PRN (23:00)
[2016-08-27] MEDS ORDERED: VANCOMYCIN IV PER PHARMACY XX SCH (23:00)
[2016-08-27] MEDS ORDERED: GLUCOSE GEL 15 GRAM TUBE BUCCAL PRN (23:00)
[2016-08-27] MEDS ORDERED: DEXTROSE 50% 50 ML SYRINGE IV PRN ×2 (23:00)
[2016-08-27] MEDS ORDERED: GLUCOSE GEL 15 GRAM TUBE PO PRN ×2 (23:00)
[2016-08-27 23:36] VITALS: PULSE 60
[2016-08-27 23:43] VITALS: Ht 157.5 cm; Wt 71.2 kg
[2016-08-27 23:54] VITALS: BP 113/7; PULSE 60; RESP 24
[2016-08-28] VITALS (11 sets, daily range): BP systolic 107–147; BP diastolic 54–65; PULSE 60–63; RESP 18–20
[2016-08-28] MEDS ORDERED: VANCOMYCIN 500MG/NS (PMX) 100 ML IVPB ONE
[2016-08-28] MEDS: ALBUMIN HUMAN 25% 100 ML IV SCH ×2 (00:25→05:49)
[2016-08-28] MEDS: ACCU-CHEK XX SCH (01:36)
--- NOTE | 2016-08-28 06:17 | HP ---
Date/Time of Note Date/Time of Note DATE: 08/28/16 TIME: 06:10 Assessment/Plan VTE Prophylaxis VTE Prophylaxis Intervention: heparin Lines/Catheters IV [facility] Saline Lock Urinary Cath still in place: No Assessment/Plan Assessment/Plan IMPRESSION 1. Sepsis 2/2 Pneumonia and UTI 2. Acute renal insufficiency, status post hemodialysis recently. Been off dialysis for over a week 3. Ischemic cardiomyopathy, ejection fraction 25%, status post AICD placed. 4. Diabetes mellitus type 2. 5. Hx of Atrial fibrillation. 6. History of coronary artery disease, status post coronary artery bypass graft. 7. Acute on chronic congestive heart failure. 8. Lactic Acidosis 9. Volume Overload state PLAN - Broad spectrum abx - will f/u culture results - Nephrology consult - 25% albumin - Cont home meds with adjustment as needed HPI/ROS Admit Date/Time Admit Date/Time Aug 27, 2016 at 21:25 Hx of Present Illness This is a 81-year-old male with a history of ischemic cardiomyopathy with diastolic CHF, type 2 diabetes, coronary artery disease status post CABG, anemia , chronic kidney disease, hypertension presenting from his rehab facility for worsening shortness of breath. Per his daughter he was hospitalized for over a month recently and discharged 1 week ago. He was on dialysis while he was here but they remove the catheter about 1 week ago because they stated that he did not need dialysis anymore. He has been having increasing peripheral edema and shortness of breath since. He denies any associated chest pain. He is urinating but not much per his daughter. No fevers, chills, cough. ER Course: Vitals stable. Labs show cr of 2.7 from 0.9 last week. CXR Congestive heart failure with interstitial pulmonary edema and a left pleural effusion. A right pleural effusion is not excluded. Consolidative infiltrate in the left lower lobe which has worsened compared to 08/18/2016. Compressive atelectasis or consolidative infiltrate from pneumonia might present this fashion. Urinalysis is consistent with severe UTI. CT a/p showed: 1. There are moderate size pleural effusions with consolidative infiltrate and atelectasis in the left lower lobe. 2. There ground-glass infiltrates and peripheral alveolar infiltrates in the right lower lobe with peribronchial cuffing. Bronchiolitis with pneumonia should be considered in the differential diagnosis. 3. Cardiomegaly. 4. Cardiac electrode with its tip projecting in the right ventricle with evidence of prior median sternotomy. 5. Anasarca. 6. Atherosclerotic vascular disease. 7. 3.8 mm nonobstructive nephrolith lower pole frank right kidney. 9.6 x 5.3 mm nonobstructive nephrolith lower pole frank left kidney. 8. 4.5 cm benign renal cyst lower half left kidney. 9. Ascites.. . PMH/Family/Social Past Surgical History Past Surgical Hx: coronary bypass surgery Social History Smoking Status: Never smoker Exam/Review of Systems Vital Signs Vitals Vital Signs Date Time Temp Pulse Resp B/P Pulse Ox O2 Delivery O2 Flow Rate FiO2 08/28/16 03:43 97.5 60 18 147/65 94 08/28/16 01:17 Nasal Cannula 2.0 Exam Constitutional: alert, oriented, well developed Head: atraumatic, normocephalic Eyes: PERRL Respiratory: diminished breath sounds Cardiovascular: irregular rhythm Gastrointestinal: soft, tender Extremities: edema Labs Result Diagram: 08/27/16173908/27/16 174 Medications Medications Current Medications Cefepime HCl (Maxipime 1gm/50 ml (Pmx)) 50 ml @ 100 mls/hr Q12 IVPB ; Start at 09:00 Acetaminophen (Tylenol Tab) 650 mg Q6H PRN PO PAIN AND OR ELEVATED TEMP; Start 08/27/16 at 23:00 Insulin Glargine (Lantus) 10 unit QAM SC ; Start 08/28/16 at 09:00 Diagnostic Test (Pha) 1 ea 1 ea 02 XX ; Start 08/28/16 at 02:00 Albumin Human (Albumin Human 25%) 100 ml @ 100 mls/hr Q6 IV Last administered on 08/28/16t 05:49; Admin Dose 100 MLS/HR; Start 08/28/16 at 00:00; Stop at 06:59 Heparin Sodium (Porcine) (Heparin (5000 Units/0.5 ml)) 5,000 unit BID SC ; Start 08/28/16 at 09:00 Ondansetron HCl (Zofran Inj) 4 mg Q6H PRN IV NAUSEA AND/OR VOMITING; Start at 23:00 Miscellaneous Information 1 ea NOTE XX ; Start 08/27/16 at 23:00 Glucose (Glutose) 15 gm Q15M PRN PO DECREASED GLUCOSE; Start 08/27/16 at 23:00 Glucose (Glutose) 22.5 gm Q15M PRN PO DECREASED GLUCOSE; Start 08/27/16 at 23: 00 Dextrose (D50w Syringe) 25 ml Q15M PRN IV DECREASED GLUCOSE; Start 08/27/16 at 23:00 Dextrose (D50w Syringe) 50 ml Q15M PRN IV DECREASED GLUCOSE; Start 08/27/16 at 23:00 Glucagon (Glucagen) 1 mg Q15M PRN IM DECREASED GLUCOSE; Start 08/27/16 at 23:00 Glucose (Glutose) 15 gm Q15M PRN BUCCAL DECREASED GLUCOSE; Start 08/27/16 at 23 :00 BRITTA ADAM MD Aug 28, 2016 06:17
[2016-08-28] MEDS: INSULIN ASPART [NOVOLOG] 3 ML PEN SC SCH ×4 (07:55→21:00)
[2016-08-28 08:08] LABS: ADD SCAN DIFF NO
[2016-08-28 08:10] LABS: ABNORMAL IP MESSAGE 1; BASOPHILS % 0.1 % (0.0-2.0); EOSINOPHILS % 0.1 % (0.0-7.0); HEMATOCRIT 32.9 % (42.0-52.0); HEMOGLOBIN 9.7 g/dl (14.0-18.0); LYMPHOCYTES # 0.7 10^3/ul (0.8-2.9); MEAN CORPUSCULAR HEMOGLOBIN 25.9 pg (29.0-33.0); MEAN CORPUSCULAR HGB CONC 29.5 g/dl (32.0-37.0); MEAN PLATELET VOLUME 10.1 fl (7.4-10.4); MONOCYTE # 0.6 10^3/ul (0.3-0.9); MONOCYTES % 9.1 % (0.0-11.0); NEUTROPHIL # 5.4 10^3/ul (1.6-7.5); NEUTROPHILS % 80.3 % (39.0-77.0); NUCLEATED RED BLOOD CELLS # 0.1 10^3/ul (0.0-0.0); NUCLEATED RED BLOOD CELLS% 1.6 /100WBC (0.0-0.0); PLATELET COUNT 320 10^3/UL (140-415); RED BLOOD COUNT 3.74 10^6/ul (4.70-6.10); RED CELL DISTRIBUTION WIDTH 24.4 % (11.5-14.5); WHITE BLOOD COUNT 6.7 10^3/ul (4.8-10.8)
[2016-08-28 08:33] LABS: ALBUMIN 4.2 g/dl (3.3-4.9)
[2016-08-28 08:34] LABS: POTASSIUM 4.2 mmol/L (3.5-5.1)
[2016-08-28 08:36] LABS: ALBUMIN/GLOBULIN RATIO 1.4; BILIRUBIN,DIRECT 0.2 mg/dl (0.00-0.20); BILIRUBIN,INDIRECT 0.7 mg/dl (0-1.1); BILIRUBIN,TOTAL 0.9 mg/dl (0.2-1.3); CREATININE 2.6 mg/dl (0.61-1.24); TOTAL PROTEIN 7.2 g/dl (6.1-8.1)
[2016-08-28 08:37] LABS: CALCIUM 9.4 mg/dl (8.4-10.2)
[2016-08-28] MEDS ORDERED: APIXABAN 5 MG TABLET PO SCH (09:00)
[2016-08-28] MEDS ORDERED: CEFEPIME 1GM/50 ML (PMX) 50 ML IVPB SCH (09:00)
[2016-08-28] MEDS ORDERED: AMIODARONE 200 MG TAB PO SCH (09:00)
[2016-08-28] MEDS ORDERED: HEPARIN 5,000 UNIT/0.5 ML VIAL SC SCH (09:00)
[2016-08-28] MEDS: SUCRALFATE 1 GM TAB PO SCH ×4 (09:34→22:43)
[2016-08-28] MEDS: ISOSORBIDE DINITRATE 10 MG TAB PO SCH ×3 (09:36→22:43)
[2016-08-28] MEDS: INSULIN GLARGINE [LANtus] 3 ML PEN SC SCH (09:41)
--- NOTE | 2016-08-28 13:24 | CONS ---
DATE OF ADMISSION: 08/27/2016 DATE OF CONSULTATION: 08/28/2016 INFECTIOUS DISEASE CONSULTATION REASON FOR CONSULTATION: Antibiotic management. HISTORY OF PRESENT ILLNESS: Julis Canela is an 81-year-old male with: 1. A history of ischemic cardiomyopathy with diastolic CHF. 2. Type 2 diabetes mellitus. 3. Coronary artery disease. 4. Status post coronary bypass graft. 5. Anemia. 6. Chronic renal disease. 7. Hypertension. He presents from his rehabilitation facility with increasing shortness of breath. He was hospitaliz ed for over a month recently, discharged 1 week ago. He was on dialysis while he was here at [facility], but they removed the catheter 1 week ago because he stated he did not need dialysis a nymore. He is having increasing peripheral edema and shortness of breath. He is urinating, but not much, per his daughter. He has no fever or chills or cough. EMERGENCY ROOM COURSE: His creatinine was 2.7, up from 0.9 last week. Chest x-ray shows congestive heart failure with interstitial pulmonary edema and left pleural effusion, right pleural effusion i s not excluded. Consolidative infiltrate in the left lower lobe has worsening compared to 7. Compressive atelectasis or consolidative infiltrates from pneumonia might present in this fashio n. Urinalysis is consistent with a severe UTI. CT showed moderate sized pleural effusion with cons olidative infiltrate and atelectasis in the left lower lobe, ground glass infiltrates and peripheral alveolar infiltrates in the right lower lobe with peribronchial cuffing, bronchiolitis with pneumon ia, cardiomegaly, cardiac electrode projecting into the right ventricle, and evidence of prior media n sternotomy, anasarca, atherosclerotic cardiovascular disease, a 0.8 mm nonobstructive nephrolith, lower pole of the frank of the right kidney, a 9.6 x 5.3 mm nonobs tructive nephrolith, lower pole frank, left kidney, 4.5 cm, benign renal cyst, lower half of the lef t kidney, and ascites, coronary bypass. PAST SURGICAL HISTORY: Coronary bypass surgery. SOCIAL HABITS: He never smoked, drank, or abused drugs. ALLERGIES: NONE TO PENICILLIN, SULFA, OR FOODS. MEDICATIONS: Per chart. REVIEW OF SYSTEMS: Noncontributory. PHYSICAL EXAMINATION: GENERAL: The patient is a well-developed, well-nourished male who is alert, responsive, in no acute distress. VITAL SIGNS: Stable. He is afebrile. SKIN: Without generalized rash. HEENT: Within normal limits. NECK: Supple. LYMPH NODES: None palpable. CHEST: Decreased breath sounds at the bases. HEART: Irregularly irregular rhythm. ABDOMEN: Soft, nontender, without organosplenomegaly or masses. EXTREMITIES: He has anasarca and lower extremity edema, no cyanosis or clubbing. RECTAL AND GENITAL: Deferred. NEUROLOGIC: No focal neurological abnormalities. ANCILLARY LABORATORY DATA: White count 6.0, H and H 10.7 and 36.2, platelet count 358,000. BUN and creatinine 63 and 2.72, glucose 138. The patient was started on cefepime. Urine is growing greater than 10 to the 5th gram-negative rods . As noted, he has a consolidative infiltrate in the left lobe lower lung, worse compared to August 18. The CT scan of the abdomen and pelvis: Consolidative infiltrates as noted previously. IMPRESSION AND PLAN: The patient comes in with evidence of pneumonia as well as urinary tract infec tion. Is currently on cefepime and vancomycin was added to his regimen, so he is on vancomycin and cefepime. He had a lactic acid drawn, wound care consult. He had blood cultures drawn, urine cultu res drawn. Will await the sensitivities of the urine. We will also include a culture of his sputum . I will dictate my findings to the hospitalists. Dictated By: CHUNG VALLE MD, JD/SHAHANA Conf#: [id number] DID#: [id number]
[2016-08-28] MEDS ORDERED: BUMETANIDE 1 MG INJ IV ONE (16:00)
[2016-08-28] MEDS: BUMETANIDE IV SCH (16:50)
[2016-08-28] MEDS: D5W IV SCH (16:50)
--- NOTE | 2016-08-28 17:21 | CONS ---
DATE OF ADMISSION: 08/27/2016 DATE OF CONSULTATION: 08/28/2016 REASON FOR CONSULTATION: Congestive heart failure exacerbation. REQUESTING PHYSICIAN: Dr. Adam from the hospitalist service. HISTORY OF PRESENT ILLNESS: Mr. Canela is an 81-year-old male with history of congestive heart failure, systolic, last known ejection fraction approximately 25% by echo July 2016, coronary a rtery disease status post coronary bypass graft surgery, paroxysmal atrial fibrillation on anticoagu lation, chronic renal failure, and anemia who had recently been admitted for congestive heart failur e exacerbation complicated by bouts of sepsis and renal failure requiring hemodialysis. The patient made significant improvement and was discharged to chronic care facility. The patient now represen ts with shortness of breath, generalized weakness, lethargy, and worsening lower extremity edema. [place] en[place] arrival, temperature 98.6, blood pressure 113/55, pulse 60, respiratory rate 18, saturation 100% . The patient's labs show a white count of 6.0, hemoglobin 10.7, platelet count 358. Sodium 130, p otassium 4.3, creatinine 2.7, BUN of 63. Troponin negative. BNP of 62,200. Lactic acid of 7. INR of 2.83. UA positive. The patient underwent abdominopelvic CT revealing moderate sized pleural ef fusions, ground glass infiltrates in the right lower lobe, cardiomegaly, anasarca, kidney nephrolith . The patient additionally underwent a chest x-ray revealing congestive heart failure, interstitial pulmonary edema, and left pleural effusion. Right pleural effusion cannot be excluded. Consolidat ed infiltrate in the left lower lobe. The patient's electrocardiogram revealed ventricular paced rh ythm at a rate of 60. The patient subsequently has been admitted to the floor where he has been ini tiated on a Bumex drip at this time with ongoing amiodarone, Carvedilol, and Isordil. PAST MEDICAL HISTORY: As above in HPI. MEDICATIONS: Currently in the hospital 1. Cefepime. 2. Bumex. 3. IV Lantus. 4. Amiodarone 10 mg b.i.d. 5. Eliquis 2.5 mg p.o. b.i.d. 6. Carvedilol 3.125 mg b.i.d. 7. Isordil 10 mg t.i.d. 8. Sucralfate 1 gram q.i.d. 9. Insulin sliding scale. 10. Vancomycin. 11. Tylenol p.r.n. ALLERGIES: DIPYRONE. SOCIAL HISTORY: No tobacco, ETOH, or illicit drug use. FAMILY HISTORY: No history of sudden cardiac or early CAD. REVIEW OF SYSTEMS: As above in HPI. CONSTITUTIONAL: No fevers, chills. PULMONARY: Shortness of breath. CARDIOVASCULAR: No signs of chest pain. Positive congestive heart failure. GASTROINTESTINAL: No vomiting. GENITOURINARY: Renal failure. PSYCHIATRIC: No documented psych history. NEUROLOGIC: Encephalopathy. ENDOCRINE: Diabetes mellitus. PHYSICAL EXAMINATION: VITAL SIGNS: Temperature of 98.1, blood pressure 117/56, pulse 60, respiratory rate 20, saturating 94%. GENERAL: The patient is sleeping, arousable, appears confused. NECK: JVP approximately 10 cm of water. CHEST: Bibasilar crackles. HEART: Regular rate and rhythm. Normal S1, S2, I/ systolic murmur, laterally displaced PMI. ABDOMEN: Positive bowel sounds, soft. EXTREMITIES: No pitting edema, 1+ pulses bilaterally, posterior tibial peripheral. LABORATORY DATA: As above in HPI with most recently from today, sodium of 131, potassium 4.2, creat inine of 2.6, BUN of 64. White blood cell count 6.7, hemoglobin 9.7, platelet count of 320. INR of 2.83. IMAGING STUDIES: As above in HPI. No further imaging studies for my review at this time. ECG: As above in HPI. No further electrocardiograms for my review at this time. IMPRESSION: 1. Congestive heart failure exacerbation, systolic, acute on chronic. 2. Cardiomyopathy with decreased left ventricular ejection fraction, last one approximately 20% to 25% by echo July 2015. 3. History of coronary artery disease status post coronary artery bypass grafting. 4. History of automatic implantable cardioverter-defibrillator implant. 5. Paroxysmal atrial fibrillation. 6. Renal failure. 7. Anemia. 8. Encephalopathy. 9. Coagulopathy. 10. Urinary tract infection. RECOMMENDATIONS: 1. At this time, would maintain patient on telemetry monitoring. 2. Continue the patient's baseline carvedilol and would initiate the patient on low dose hydralazin e afterload reduction. 3. Continue the patient's Bumex drip with possible need for repeat hemodialysis. 4. We will continue the patient's amiodarone for now, but if the patient continues to likely remain in underlying atrial fibrillation, we will likely discontinue amiodarone. We will at this time dec rease it to daily dosing. 5. Continue the patient's current apixaban, but if the patient develops worsening coagulopathy, we will need to hold the patient's apixaban. 6. Continue antibiotics and follow up all culture data. 7. Additionally, would assess for acute coronary syndrome and thus complete a rule out for myocardi al infarction and watch the patient's hemoglobin closely. Thank you for allowing me to take part in the care of this patient. I will continue to follow along very closely with you. Further recommendations to be made as patient progresses [facility]. Dictated By: POLI ONOFRE/SHAHANA Conf#: [id number] DID#: [id number] CC: BRITTA ADAM MD;*EndCC*
--- NOTE | 2016-08-28 18:10 | CONS ---
Date/Time of Note Date/Time of Note DATE: 08/28/16 TIME: 18:06 Assessment/Plan Assessment/Plan Chief Complaint/Hosp Course SYSTOLIC HEART FAILURE JAZLYN ON CKD LOW EF ASHD DM HX CAD AICD PLACEMENT ANASASCA PLAN IV BUMEX METALAZONE IF NO RESPONSE DIALYSIS Problems: Consultation Date/Type/Reason Admit Date/Time Aug 27, 2016 at 21:25 Initial Consult Date [id number] RENAL CONSULT 24 HR Interval Summary Subjective hx not possible: other (SOB) Exam/Review of Systems Vital Signs Vitals Vital Signs Date Time Temp Pulse Resp B/P Pulse Ox O2 Delivery O2 Flow Rate FiO2 08/28/16 16:12 60 08/28/16 15:57 98.1 20 117/56 94 08/28/16 10:00 Nasal Cannula 2.0 Intake and Output 08/27/16 08/27/16 08/28/16 15:00 23:00 07:00 Intake Total 540 ml Balance 540 ml Exam Neck: jvd (+) Respiratory: congested cough, crackles/rales (+), diminished breath sounds Cardiovascular: regular rate and rhythm Gastrointestinal: bowel sounds (+), soft Extremities: edema (++) Neurological: FUR DRESSER II-XII intact Results Result Diagram: 08/28/16 0725 08/28/16 0725 Results 24 hrs Laboratory Tests Test 08/27/16 18:30 08/27/16 19:50 08/27/16 21:30 08/28/16 01:47 Urine Color LT. YELLOW Urine Clarity CLOUDY H Urine pH 5.0 Urine Specific [place] >=1.030 H Urine Ketones NEGATIVE Urine Nitrite NEGATIVE Urine Bilirubin 1+ H Urine Ictotest NEGATIVE Urine Urobilinogen 2.0 E.U./dL H Urine Leukocyte Esterase 2+ H Urine Microscopic RBC 5-10 Urine Microscopic WBC >200 Urine Squamous Epithelial Cells FEW Urine Bacteria MANY Urine Hemoglobin 2+ H Urine Glucose NEGATIVE Urine Total Protein 2+ H Lactic Acid Level 6.2 *H 5.6 *H Bedside Glucose 123 Test 08/28/16 07:25 08/28/16 08:22 08/28/16 11:40 08/28/16 12:03 White Blood Count 6.7 Red Blood Count 3.74 L Hemoglobin 9.7 L Hematocrit 32.9 L Mean Corpuscular Volume 88.0 Mean Corpuscular Hemoglobin 25.9 L Mean Corpuscular Hemoglobin Concent 29.5 L Red Cell Distribution Width 24.4 H Platelet Count 320 Mean Platelet Volume 10.1 Neutrophils % 80.3 H Lymphocytes % 10.0 L Monocytes % 9.1 Eosinophils % 0.1 Basophils % 0.1 Nucleated Red Blood Cells % 1.6 H Neutrophils # 5.4 Lymphocytes # 0.7 L Monocytes # 0.6 Eosinophils # 0.0 Basophils # 0.0 Nucleated Red Blood Cells # 0.1 H Sodium Level 131 L Potassium Level 4.2 Chloride Level 90 L Carbon Dioxide Level 19 L Anion Gap 26 H Blood Urea Nitrogen 64 H Creatinine 2.60 H Glucose Level 92 # Calcium Level 9.4 Total Bilirubin 0.9 Direct Bilirubin 0.20 # Indirect Bilirubin 0.7 Aspartate Amino Transf (AST/SGOT) 26 Alanine Aminotransferase (ALT/SGPT) 35 Alkaline Phosphatase 173 H Total Protein 7.2 Albumin 4.2 Globulin 3.00 Albumin/Globulin Ratio 1.40 Bedside Glucose 96 107 Lactic Acid Level 7.7 *H Test 08/28/16 17:54 Bedside Glucose 118 Medications Medications Current Medications Acetaminophen (Tylenol Tab) 650 mg Q6H PRN PO PAIN AND OR ELEVATED TEMP; Start 08/27/16 at 23:00 Insulin Glargine (Lantus) 10 unit QAM SC Last administered on 08/28/16t 09:41; Admin Dose 10 UNIT; Start 08/28/16 at 09:00 Diagnostic Test (Pha) (Accu-Chek) 1 ea 02 XX ; Start 08/28/16 at 02:00 Ondansetron HCl (Zofran Inj) 4 mg Q6H PRN IV NAUSEA AND/OR VOMITING; Start at 23:00 Miscellaneous Information 1 ea NOTE XX ; Start 08/27/16 at 23:00 Glucose (Glutose) 15 gm Q15M PRN PO DECREASED GLUCOSE; Start 08/27/16 at 23:00 Glucose (Glutose) 22.5 gm Q15M PRN PO DECREASED GLUCOSE; Start 08/27/16 at 23: 00 Dextrose (D50w Syringe) 25 ml Q15M PRN IV DECREASED GLUCOSE; Start 08/27/16 at 23:00 Dextrose (D50w Syringe) 50 ml Q15M PRN IV DECREASED GLUCOSE; Start 08/27/16 at 23:00 Glucagon (Glucagen) 1 mg Q15M PRN IM DECREASED GLUCOSE; Start 08/27/16 at 23:00 Glucose (Glutose) 15 gm Q15M PRN BUCCAL DECREASED GLUCOSE; Start 08/27/16 at 23 :00 Apixaban (Eliquis) 2.5 mg BID PO Last administered on 08/28/16 09:35; Admin Dose 2.5 MG; Start 08/28/16 at 09:00 Carvedilol (Coreg) 3.125 mg BID PO Last administered on 08/28/16 09:35; Admin Dose 3.125 MG; Start 08/28/16 at 09:00 Isosorbide Dinitrate (Isordil) 10 mg TID PO Last administered on 08/28/16 12: 56; Admin Dose 10 MG; Start 08/28/16 at 09:00 Sucralfate 1 gm 1 gm QID PO Last administered on 08/28/16 16:50; Admin Dose 1 GM; Start 08/28/16 at 09:00 Cefepime HCl 50 ml @ 100 mls/hr DAILY IVPB ; Start 08/29/16 at 09:00 Bumetanide/ Dextrose (Bumex/D5W) 250 ml @ 10 mls/hr Q24H IV Last administered on 08/28/16 16:50; Admin Dose 10 MLS/HR; Start 08/28/16 at 16:30; Stop 08/29/16 at 16:29 Amiodarone HCl (Cordarone) 200 mg DAILY PO ; Start 08/29/16 at 09:00 Hydralazine HCl (Apresoline) 10 mg Q8 PO ; Start 08/28/16 at 22:00 YANIRA HART MD Aug 28, 2016 18:10
--- NOTE | 2016-08-28 18:27 | CONS ---
DATE OF ADMISSION: 08/27/2016 DATE OF CONSULTATION: TYPE OF CONSULTATION: Nephrology. HISTORY OF PRESENT ILLNESS: The patient was recently discharged from this hospital with a diagnosis of systolic heart failure. The patient previously went home with diagnosis of respiratory failure secondary to pulmonary edema and aspiration pneumonia. The patient has respiratory failure, ischemi c cardiomyopathy, ejection fraction 25%, history of AICD device placement, diabetes mellitus, atrial fibrillation, history of CAD, history of coronary artery bypass graft, history of acute on chronic renal insufficiency, history of encephalopathy, debility, pulmonary edema, chronic. The patient has also anemia. The patient presented back again with respiratory failure currently and systolic hear t failure and also coagulopathy. Fidel catheter cannot be placed because of anticoagulation. PAST MEDICAL HISTORY: CKD, acute systolic heart failure, acute tubular necrosis, hypertension, diab etes, anemia, history of respiratory failure. ALLERGIES: DIPYRONE. SOCIAL HISTORY: Negative. FAMILY HISTORY: Noncontributory. MEDICATION HISTORY: The patient is currently on 1. Cefepime. 2. Amiodarone. 3. Hydralazine. 4. Bumex drip, 1 mg per hour. 5. Lantus insulin. 6. Eliquis. 7. Coreg. 8. Isosorbide. 9. Sucralfate. 10. Insulin. 11. Vancomycin. 12. Tylenol. 13. Zofran. REVIEW OF SYSTEMS: Limited because of respiratory failure. PHYSICAL EXAMINATION: GENERAL: The patient is acutely short of breath and in mild respiratory failure. VITAL SIGNS: Pulse 60, blood pressure 117/56. HEENT: Head is atraumatic, normocephalic. Pupils are equal and reactive. The patient has no pallo r or conjunctival icterus. NECK: Supple. JVD positive. LUNGS: Basal rales noted anteriorly posteriorly. CARDIOVASCULAR: S1, S2 normal. Systolic murmur noted. ABDOMEN: Soft, nontender. Bowel sounds present. No palpable mass or hepatosplenomegaly. No guard ing or rebound tenderness. EXTREMITIES: There is no cyanosis, clubbing, edema positive the lower extremities and back. CENTRAL NERVOUS SYSTEM: The patient is awake, weak, with no focal deficit. LABORATORY DATA: Hematocrit 32.9, platelet count 320. Sodium 131, potassium 4.2, BUN 64, creatinin e 2.60. Lactic acid 7.7. IMPRESSION: 1. Acute systolic heart failure. 2. Acute kidney injury. 3. Underlying chronic kidney disease. 4. Lung infiltrate. 5. Urinary tract infection. 6. History of diabetes mellitus. 7. History of underlying chronic kidney disease, multifactorial. 8. History of decreased ejection fraction. PLAN: To continue to give this patient diuretic. The patient will have Bumex drip as well as metol azone. If no response, the patient will be started on hemodialysis once coagulopathy has been corre cted for placement of dialysis catheter. Thank you, Dr. Oscar iWlliamson and Dr. Ramos, for kindly asking me to see this patient in nephrology c onsultation. Orders were done. Dictated By: YANIRA ACOSTA/SHAHANA Conf#: [id number] DID#: [id number]
[2016-08-28 19:23] LABS: CREATINE KINASE < 20 IU/L (23-200)
[2016-08-28 19:29] LABS: CK-MB 1.26 ng/ml (0.0-2.4)
[2016-08-28 19:31] LABS: TROPONIN-I < 0.012 ng/ml (0.00-0.12)
[2016-08-28] MEDS ORDERED: SOD CHLORIDE 0.9% 250 ML IV ONE (20:00)
[2016-08-29] VITALS (41 sets, daily range): BP systolic 65–143; BP diastolic 38–94; PULSE 60–76; RESP 12–29
[2016-08-29] MEDS: ACCU-CHEK XX SCH (02:00)
[2016-08-29 03:07] LABS: CREATINE KINASE < 20 IU/L (23-200)
[2016-08-29 03:20] LABS: TROPONIN-I 0.029 ng/ml (0.00-0.12)
[2016-08-29 03:21] LABS: CK-MB 1.54 ng/ml (0.0-2.4)
[2016-08-29] MEDS ORDERED: SOD CHLORIDE 0.9% 500 ML IV ONE (04:00)
[2016-08-29 07:20] LABS: ADD SCAN DIFF NO
[2016-08-29 07:36] LABS: ABNORMAL IP MESSAGE 1; BASOPHILS % 0.1 % (0.0-2.0); HEMATOCRIT 33.9 % (42.0-52.0); LYMPHOCYTES # 0.5 10^3/ul (0.8-2.9); LYMPHOCYTES % 5.6 % (15.0-51.0); MEAN CORPUSCULAR HEMOGLOBIN 26.4 pg (29.0-33.0); MEAN CORPUSCULAR HGB CONC 29.5 g/dl (32.0-37.0); MEAN CORPUSCULAR VOLUME 89.4 fl (82.0-101.0); MEAN PLATELET VOLUME 10.1 fl (7.4-10.4); MONOCYTE # 1.3 10^3/ul (0.3-0.9); MONOCYTES % 13.6 % (0.0-11.0); NEUTROPHIL # 7.7 10^3/ul (1.6-7.5); NEUTROPHILS % 80.3 % (39.0-77.0); NUCLEATED RED BLOOD CELLS # 0.2 10^3/ul (0.0-0.0); NUCLEATED RED BLOOD CELLS% 2.4 /100WBC (0.0-0.0); PLATELET COUNT 298 10^3/UL (140-415); RED BLOOD COUNT 3.79 10^6/ul (4.70-6.10); RED CELL DISTRIBUTION WIDTH 23.9 % (11.5-14.5); WHITE BLOOD COUNT 9.5 10^3/ul (4.8-10.8)
[2016-08-29] MEDS: INSULIN ASPART [NOVOLOG] 3 ML PEN SC SCH ×3 (07:55→21:00)
[2016-08-29 08:32] LABS: POTASSIUM 4.4 mmol/L (3.5-5.1)
[2016-08-29 08:35] LABS: CREATININE 2.93 mg/dl (0.61-1.24)
[2016-08-29 08:36] LABS: CALCIUM 9.4 mg/dl (8.4-10.2)
[2016-08-29] MEDS ORDERED: AMIODARONE 200 MG TAB PO SCH (09:00)
[2016-08-29] MEDS ORDERED: CEFEPIME 1GM/50 ML (PMX) 50 ML IVPB SCH (09:00)
[2016-08-29] MEDS: METOLAZONE 5 MG TAB PO SCH (09:53)
[2016-08-29] MEDS: SUCRALFATE 1 GM TAB PO SCH ×4 (09:53→21:00)
[2016-08-29] MEDS: ISOSORBIDE DINITRATE 10 MG TAB PO SCH ×2 (09:54→12:58)
[2016-08-29] MEDS: INSULIN GLARGINE [LANtus] 3 ML PEN SC SCH (09:58)
[2016-08-29] MEDS ORDERED: BUMETANIDE 1 MG INJ IV SCH (10:00)
--- NOTE | 2016-08-29 11:17 | RADRPT ---
Vent Rate: 60 bpm RR Interval: 0 msec FL Interval: 0 msec QRS Duration: 162 msec QT Interval: 572 msec QTC Interval: 572 msec P-R-T [place]: 0 - -78 - 107 degrees Electronic ventricular pacemaker Electronically Signed By: Gene Pope [id number]
--- NOTE | 2016-08-29 12:35 | CONS ---
Date/Time of Note Date/Time of Note DATE: 08/29/16 TIME: 12:28 Assessment/Plan Assessment/Plan Additional Assessment/Plan 1. Congestive heart failure exacerbation 2. Ischemic Cardiomyopathy with decreased left ventricular ejection fraction. 3. Coronary artery disease status post coronary artery bypass grafting. 4. S/P automatic implantable cardioverter-defibrillator implant. 5. Paroxysmal atrial fibrillation. 6. Renal failure. 7. Anemia. 8. Encephalopathy. 9. Coagulopathy. 10. Urinary tract infection. V Paced Rhythm Heart failure clinically compensated Continue Coreg and Amiodarone Avoid Volume Overload Continue Bumex and Metolazone Continue Antibiotics Started on Eliquis Consultation Date/Type/Reason Admit Date/Time Aug 27, 2016 at 21:25 Past Surgical History Past Surgical Hx: coronary bypass surgery Social History Smoking Status: Never smoker Exam/Review of Systems Vital Signs Vitals Vital Signs Date Time Temp Pulse Resp B/P Pulse Ox O2 Delivery O2 Flow Rate FiO2 08/29/16 12:13 60 08/29/16 11:37 98.1 18 105/58 100 08/28/16 20:00 Nasal Cannula 2.0 Intake and Output 08/28/16 08/28/16 08/29/16 15:00 23:00 07:00 Intake Total 250 ml 690 ml Balance 250 ml 690 ml Exam Head: atraumatic, normocephalic Neck: non-tender, supple Respiratory: diminished breath sounds Cardiovascular: regular rate and rhythm Gastrointestinal: nl liver, spleen, non-tender, soft Extremities: normal pulses Results Result Diagram: 08/29/16 0622 08/29/16 0622 Results 24 hrs Laboratory Tests Test 08/28/16 17:54 08/28/16 18:35 08/28/16 22:45 08/29/16 01:00 Bedside Glucose 118 111 Lactic Acid Level 6.6 *H 7.3 *H Creatine Kinase < 20 L < 20 L Creatine Kinase Index Creatinine Kinase MB (Mass) 1.26 1.54 Troponin I < 0.012 0.029 Test 08/29/16 06:22 08/29/16 08:19 08/29/16 11:40 White Blood Count 9.5 # Red Blood Count 3.79 L Hemoglobin 10.0 L Hematocrit 33.9 L Mean Corpuscular Volume 89.4 Mean Corpuscular Hemoglobin 26.4 L Mean Corpuscular Hemoglobin Concent 29.5 L Red Cell Distribution Width 23.9 H Platelet Count 298 Mean Platelet Volume 10.1 Neutrophils % 80.3 H Lymphocytes % 5.6 L Monocytes % 13.6 H Eosinophils % 0.0 Basophils % 0.1 Nucleated Red Blood Cells % 2.4 H Neutrophils # 7.7 H Lymphocytes # 0.5 L Monocytes # 1.3 H Eosinophils # 0.0 Basophils # 0.0 Nucleated Red Blood Cells # 0.2 H Sodium Level 132 L Potassium Level 4.4 Chloride Level 88 L Carbon Dioxide Level 20 L Anion Gap 28 H Blood Urea Nitrogen 79 H Creatinine 2.93 H Glucose Level 89 Calcium Level 9.4 Magnesium Level 1.8 Bedside Glucose 99 151 Medications Medications Current Medications Acetaminophen (Tylenol Tab) 650 mg Q6H PRN PO PAIN AND OR ELEVATED TEMP; Start 08/27/16 at 23:00 Insulin Glargine (Lantus) 10 unit QAM SC Last administered on 08/29/16 09:58; Admin Dose 10 UNIT; Start 08/28/16 at 09:00 Diagnostic Test (Pha) (Accu-Chek) 1 ea 02 XX ; Start 08/28/16 at 02:00 Ondansetron HCl (Zofran Inj) 4 mg Q6H PRN IV NAUSEA AND/OR VOMITING; Start at 23:00 Miscellaneous Information 1 ea NOTE XX ; Start 08/27/16 at 23:00 Glucose (Glutose) 15 gm Q15M PRN PO DECREASED GLUCOSE; Start 08/27/16 at 23:00 Glucose (Glutose) 22.5 gm Q15M PRN PO DECREASED GLUCOSE; Start 08/27/16 at 23: 00 Dextrose (D50w Syringe) 25 ml Q15M PRN IV DECREASED GLUCOSE; Start 08/27/16 at 23:00 Dextrose (D50w Syringe) 50 ml Q15M PRN IV DECREASED GLUCOSE; Start 08/27/16 at 23:00 Glucagon (Glucagen) 1 mg Q15M PRN IM DECREASED GLUCOSE; Start 08/27/16 at 23:00 Glucose (Glutose) 15 gm Q15M PRN BUCCAL DECREASED GLUCOSE; Start 08/27/16 at 23 :00 Carvedilol (Coreg) 3.125 mg BID PO Last administered on 08/29/16 09:54; Admin Dose 3.125 MG; Start 08/28/16 at 09:00 Isosorbide Dinitrate (Isordil) 10 mg TID PO Last administered on 08/29/16 09:54 ; Admin Dose 10 MG; Start 08/28/16 at 09:00 Sucralfate 1 gm 1 gm QID PO Last administered on 08/29/16 09:53; Admin Dose 1 GM; Start 08/28/16 at 09:00 Cefepime HCl 50 ml @ 100 mls/hr DAILY IVPB Last administered on 08/29/16 09:50 ; Admin Dose 100 MLS/HR; Start 08/29/16 at 09:00 Bumetanide/ Dextrose (Bumex/D5W) 250 ml @ 10 mls/hr Q24H IV Last administered on 08/28/16 16:50; Admin Dose 10 MLS/HR; Start 08/28/16 at 16:30; Stop 08/30/16 at 12:00 Amiodarone HCl (Cordarone) 200 mg DAILY PO Last administered on 08/29/16 09:53 ; Admin Dose 200 MG; Start 08/29/16 at 09:00 Hydralazine HCl (Apresoline) 10 mg Q8 PO Last administered on 08/29/16 05:52; Admin Dose 10 MG; Start 08/28/16 at 22:00 Metolazone (Zaroxolyn) 5 mg DAILY PO Last administered on 08/29/16 09:53; Admin Dose 5 MG; Start 08/29/16 at 09:00 Miscellaneous Information (*Rx Drug Level Order Reminder*) RANDOM VANCOMYCIN LEVEL ... ONCE ONCE XX ; Start 08/30/16 at 05:00; Stop 08/30/16 at 05:01 CLARISSA ENRIQUE M.D. Aug 29, 2016 12:35
[2016-08-29] MEDS ORDERED: APIXABAN 5 MG TABLET PO SCH (13:00)
--- NOTE | 2016-08-29 13:24 | CONS ---
Date/Time of Note Date/Time of Note DATE: 08/29/16 TIME: 13:19 Assessment/Plan Assessment/Plan Chief Complaint/Hosp Course 1. Acute kidney injury 2. Acute systolic heart failure. 3. Underlying chronic kidney disease. 4. Lung infiltrate. 5. Urinary tract infection. 6. History of diabetes mellitus. 7. History of underlying chronic kidney disease, multifactorial. 8. History of decreased ejection fraction. Problems: Additional Assessment/Plan 1. whitney cath will be placed tonigth 2. Continue bumex drip 3. cohen catheter Consultation Date/Type/Reason Admit Date/Time Aug 27, 2016 at 21:25 Initial Consult Date Type of Consultation: Nephrology Reason for Consultation Dr Lamar 24 HR Interval Summary Constitutional: disoriented Exam/Review of Systems Vital Signs Vitals Vital Signs Date Time Temp Pulse Resp B/P Pulse Ox O2 Delivery O2 Flow Rate FiO2 08/29/16 12:13 60 08/29/16 11:37 98.1 18 105/58 100 08/28/16 20:00 Nasal Cannula 2.0 Intake and Output 08/28/16 08/28/16 08/29/16 15:00 23:00 07:00 Intake Total 250 ml 690 ml Balance 250 ml 690 ml Exam Constitutional: other (lethargic) Head: normocephalic Eyes: nl conjunctiva ENMT: nl external ears & nose Neck: supple Respiratory: congested cough, crackles/rales, diminished breath sounds Extremities: normal pulses Results Result Diagram: 08/29/16 0622 08/29/16 1212 Results 24 hrs Laboratory Tests Test 08/28/16 17:54 08/28/16 18:35 08/28/16 22:45 08/29/16 01:00 Bedside Glucose 118 111 Lactic Acid Level 6.6 *H 7.3 *H Creatine Kinase < 20 L < 20 L Creatine Kinase Index Creatinine Kinase MB (Mass) 1.26 1.54 Troponin I < 0.012 0.029 Test 08/29/16 06:22 08/29/16 08:19 08/29/16 11:40 08/29/16 12:12 White Blood Count 9.5 # Red Blood Count 3.79 L Hemoglobin 10.0 L Hematocrit 33.9 L Mean Corpuscular Volume 89.4 Mean Corpuscular Hemoglobin 26.4 L Mean Corpuscular Hemoglobin Concent 29.5 L Red Cell Distribution Width 23.9 H Platelet Count 298 Mean Platelet Volume 10.1 Neutrophils % 80.3 H Lymphocytes % 5.6 L Monocytes % 13.6 H Eosinophils % 0.0 Basophils % 0.1 Nucleated Red Blood Cells % 2.4 H Neutrophils # 7.7 H Lymphocytes # 0.5 L Monocytes # 1.3 H Eosinophils # 0.0 Basophils # 0.0 Nucleated Red Blood Cells # 0.2 H Sodium Level 132 L Potassium Level 4.4 4.6 Chloride Level 88 L Carbon Dioxide Level 20 L Anion Gap 28 H Blood Urea Nitrogen 79 H Creatinine 2.93 H Glucose Level 89 Calcium Level 9.4 Magnesium Level 1.8 Bedside Glucose 99 151 Lactic Acid Level 5.4 *H Medications Medications Current Medications Acetaminophen (Tylenol Tab) 650 mg Q6H PRN PO PAIN AND OR ELEVATED TEMP; Start 08/27/16 at 23:00 Insulin Glargine (Lantus) 10 unit QAM SC Last administered on 08/29/16 09:58; Admin Dose 10 UNIT; Start 08/28/16 at 09:00 Diagnostic Test (Pha) (Accu-Chek) 1 ea 02 XX ; Start 08/28/16 at 02:00 Ondansetron HCl (Zofran Inj) 4 mg Q6H PRN IV NAUSEA AND/OR VOMITING; Start at 23:00 Miscellaneous Information 1 ea NOTE XX ; Start 08/27/16 at 23:00 Glucose (Glutose) 15 gm Q15M PRN PO DECREASED GLUCOSE; Start 08/27/16 at 23:00 Glucose (Glutose) 22.5 gm Q15M PRN PO DECREASED GLUCOSE; Start 08/27/16 at 23: 00 Dextrose (D50w Syringe) 25 ml Q15M PRN IV DECREASED GLUCOSE; Start 08/27/16 at 23:00 Dextrose (D50w Syringe) 50 ml Q15M PRN IV DECREASED GLUCOSE; Start 08/27/16 at 23:00 Glucagon (Glucagen) 1 mg Q15M PRN IM DECREASED GLUCOSE; Start 08/27/16 at 23:00 Glucose (Glutose) 15 gm Q15M PRN BUCCAL DECREASED GLUCOSE; Start 08/27/16 at 23 :00 Carvedilol (Coreg) 3.125 mg BID PO Last administered on 08/29/16 09:54; Admin Dose 3.125 MG; Start 08/28/16 at 09:00 Isosorbide Dinitrate (Isordil) 10 mg TID PO Last administered on 08/29/16 09:54 ; Admin Dose 10 MG; Start 08/28/16 at 09:00 Sucralfate 1 gm 1 gm QID PO Last administered on 08/29/16 09:53; Admin Dose 1 GM; Start 08/28/16 at 09:00 Cefepime HCl 50 ml @ 100 mls/hr DAILY IVPB Last administered on 08/29/16 09:50 ; Admin Dose 100 MLS/HR; Start 08/29/16 at 09:00 Bumetanide/ Dextrose (Bumex/D5W) 250 ml @ 10 mls/hr Q24H IV Last administered on 08/28/16 16:50; Admin Dose 10 MLS/HR; Start 08/28/16 at 16:30; Stop 08/30/16 at 12:00 Amiodarone HCl (Cordarone) 200 mg DAILY PO Last administered on 08/29/16 09:53 ; Admin Dose 200 MG; Start 08/29/16 at 09:00 Hydralazine HCl (Apresoline) 10 mg Q8 PO Last administered on 08/29/16 05:52; Admin Dose 10 MG; Start 08/28/16 at 22:00 Metolazone (Zaroxolyn) 5 mg DAILY PO Last administered on 08/29/16 09:53; Admin Dose 5 MG; Start 08/29/16 at 09:00 Miscellaneous Information (*Rx Drug Level Order Reminder*) RANDOM VANCOMYCIN LEVEL ... ONCE ONCE XX ; Start 08/30/16 at 05:00; Stop 08/30/16 at 05:01 RAMONA MCCLOUD Aug 29, 2016 13:24
--- NOTE | 2016-08-29 14:32 | PN ---
Date/Time of Note Date/Time of Note DATE: 08/29/16 TIME: 14:20 Assessment/Plan VTE Prophylaxis VTE Prophylaxis Intervention: SCD's Lines/Catheters IV Catheter Type (from Nrs): Peripheral IV Urinary Cath still in place: No Assessment/Plan Chief Complaint/Hosp Course 1. Severe Sepsis with Lactic Acidosis 2/2 UTI -cont Abx 2. JAZLYN on CKD s/p hemodialysis recently, exacerbation likely from Cardiorenal syndrome -Not improving with a Bumex gtt -Pt had been off dialysis for over a week and pt now has Volume OD and Azotemia and will need to restart HD, Fidel to be placed tonight 3. Ischemic cardiomyopathy, ejection fraction 25%, status post AICD 4. Diabetes mellitus type 2. 5. Hx of Atrial fibrillation. 6. History of coronary artery disease, status post coronary artery bypass graft. 7. Acute on chronic congestive heart failure -will need HD, on a Bumex gtt 8. Cirrhosis with Coagulopathy -2 units of FFP today in anticipation of Fidel, Hold Eliquis PPx- Eliquis held 2/2 Fidel placement, SCD's Problems: Subjective 24 Hr Interval Summary Constitutional: disoriented Exam/Review of Systems Vital Signs Vitals Vital Signs Date Time Temp Pulse Resp B/P Pulse Ox O2 Delivery O2 Flow Rate FiO2 08/29/16 12:13 60 08/29/16 11:37 98.1 18 105/58 100 08/28/16 20:00 Nasal Cannula 2.0 Intake and Output 08/28/16 08/28/16 08/29/16 15:00 23:00 07:00 Intake Total 250 ml 690 ml Balance 250 ml 690 ml Exam Psych: confusion Respiratory: clear to auscultation Cardiovascular: regular rate and rhythm Gastrointestinal: soft, No distended Musculoskeletal: nl extremities to inspection Results Result Diagram: 08/29/16 0622 08/29/16 1212 Results 24 hrs Laboratory Tests Test 08/28/16 17:54 08/28/16 18:35 08/28/16 22:45 08/29/16 01:00 Bedside Glucose 118 111 Lactic Acid Level 6.6 *H 7.3 *H Creatine Kinase < 20 L < 20 L Creatine Kinase Index Creatinine Kinase MB (Mass) 1.26 1.54 Troponin I < 0.012 0.029 Test 08/29/16 06:22 08/29/16 08:19 08/29/16 11:40 08/29/16 12:12 White Blood Count 9.5 # Red Blood Count 3.79 L Hemoglobin 10.0 L Hematocrit 33.9 L Mean Corpuscular Volume 89.4 Mean Corpuscular Hemoglobin 26.4 L Mean Corpuscular Hemoglobin Concent 29.5 L Red Cell Distribution Width 23.9 H Platelet Count 298 Mean Platelet Volume 10.1 Neutrophils % 80.3 H Lymphocytes % 5.6 L Monocytes % 13.6 H Eosinophils % 0.0 Basophils % 0.1 Nucleated Red Blood Cells % 2.4 H Neutrophils # 7.7 H Lymphocytes # 0.5 L Monocytes # 1.3 H Eosinophils # 0.0 Basophils # 0.0 Nucleated Red Blood Cells # 0.2 H Sodium Level 132 L Potassium Level 4.4 4.6 Chloride Level 88 L Carbon Dioxide Level 20 L Anion Gap 28 H Blood Urea Nitrogen 79 H Creatinine 2.93 H Glucose Level 89 Calcium Level 9.4 Magnesium Level 1.8 Bedside Glucose 99 151 Lactic Acid Level 5.4 *H Medications Medications Current Medications Acetaminophen (Tylenol Tab) 650 mg Q6H PRN PO PAIN AND OR ELEVATED TEMP; Start 08/27/16 at 23:00 Insulin Glargine (Lantus) 10 unit QAM SC Last administered on 08/29/16t 09:58; Admin Dose 10 UNIT; Start 08/28/16 at 09:00 Diagnostic Test (Pha) (Accu-Chek) 1 ea 02 XX ; Start 08/28/16 at 02:00 Ondansetron HCl (Zofran Inj) 4 mg Q6H PRN IV NAUSEA AND/OR VOMITING; Start at 23:00 Miscellaneous Information 1 ea NOTE XX ; Start 08/27/16 at 23:00 Glucose (Glutose) 15 gm Q15M PRN PO DECREASED GLUCOSE; Start 08/27/16 at 23:00 Glucose (Glutose) 22.5 gm Q15M PRN PO DECREASED GLUCOSE; Start 08/27/16 at 23: 00 Dextrose (D50w Syringe) 25 ml Q15M PRN IV DECREASED GLUCOSE; Start 08/27/16 at 23:00 Dextrose (D50w Syringe) 50 ml Q15M PRN IV DECREASED GLUCOSE; Start 08/27/16 at 23:00 Glucagon (Glucagen) 1 mg Q15M PRN IM DECREASED GLUCOSE; Start 08/27/16 at 23:00 Glucose (Glutose) 15 gm Q15M PRN BUCCAL DECREASED GLUCOSE; Start 08/27/16 at 23 :00 Carvedilol (Coreg) 3.125 mg BID PO Last administered on 08/29/16 09:54; Admin Dose 3.125 MG; Start 08/28/16 at 09:00 Isosorbide Dinitrate (Isordil) 10 mg TID PO Last administered on 08/29/16 09:54 ; Admin Dose 10 MG; Start 08/28/16 at 09:00 Sucralfate 1 gm 1 gm QID PO Last administered on 08/29/16 13:11; Admin Dose 1 GM; Start 08/28/16 at 09:00 Cefepime HCl 50 ml @ 100 mls/hr DAILY IVPB Last administered on 08/29/16 09:50 ; Admin Dose 100 MLS/HR; Start 08/29/16 at 09:00 Bumetanide/ Dextrose (Bumex/D5W) 250 ml @ 10 mls/hr Q24H IV Last administered on 08/28/16 16:50; Admin Dose 10 MLS/HR; Start 08/28/16 at 16:30; Stop 08/30/16 at 12:00 Amiodarone HCl (Cordarone) 200 mg DAILY PO Last administered on 08/29/16 09:53 ; Admin Dose 200 MG; Start 08/29/16 at 09:00 Hydralazine HCl (Apresoline) 10 mg Q8 PO Last administered on 08/29/16 05:52; Admin Dose 10 MG; Start 08/28/16 at 22:00 Metolazone (Zaroxolyn) 5 mg DAILY PO Last administered on 08/29/16 09:53; Admin Dose 5 MG; Start 08/29/16 at 09:00 Miscellaneous Information (*Rx Drug Level Order Reminder*) RANDOM VANCOMYCIN LEVEL ... ONCE ONCE XX ; Start 08/30/16 at 05:00; Stop 08/30/16 at 05:01 MURIEL EWING Aug 29, 2016 14:31
[2016-08-29] MEDS ORDERED: ALBUMIN HUMAN 25% 100 ML ONE (17:21)
[2016-08-29 17:41] LABS: INR 2.57; PROTIME 27.9 Sec (12.2-14.2); PT RATIO 2.2
[2016-08-29 17:45] LABS: AADO2 Arterial 589.7 mmHg (7.0-24.0); Allen Test ACCEPTAB; Arterial Base Excess -8.7 mmol/L (-3.0-3); Arterial COHb 0.3 % (0.0-3.0); Arterial Fraction of Oxyhgb 71.5 % (93.0-99.0); Arterial HCO3 21.6 mmol/L (22.0-26.0); Arterial MetHb 0.5 % (0.0-1.5); MODE MASK - NRB
[2016-08-29] MEDS ORDERED: ALBUMIN HUMAN 25% 100 ML IV ONE ×3 (18:00→19:00)
[2016-08-29] MEDS ORDERED: NORepinephrine 8MG/250 ML (PMX 250 ML ONE (18:07)
[2016-08-29] MEDS ORDERED: NORepinephrine 8MG/250 ML (PMX 250 ML IV SCH (18:30)
[2016-08-29] MEDS ORDERED: DESMOPRESSIN 25 MCG in SOD CHLORIDE 0.9% 50 ML IVPB ONE (19:00)
--- NOTE | 2016-08-29 19:45 | RADRPT ---
PROCEDURE: XR Chest. CLINICAL INDICATION: Fluid overload TECHNIQUE: Single frontal chest x-ray. COMPARISON: 08/27/2016 FINDINGS: There is stable moderate cardiomegaly and mild to moderate pulmonary vascular congestion/edema. Haz y opacity at the left lung base is grossly stable. There is no pneumothorax. The patient is status post sternotomy and AICD placement. Aortic atherosclerotic calcification is noted. The osseous st ructures are unremarkable. IMPRESSION: 1. Grossly stable moderate cardiomegaly and mild to moderate pulmonary vascular congestion/edema. 2. Stable hazy left lung base opacity, likely atelectasis and/or mild pleural effusion. 3. No significant interval change. RPTAT: QQ .Bebo Johnson MD, MD Date Time Electronically viewed and signed by .Bebo Johnson MD, on 08/29/2016 19:45 .R/
[2016-08-29 19:49] LABS: ADD SCAN DIFF NO
--- NOTE | 2016-08-29 19:49 | RADRPT ---
PROCEDURE: XR Chest. CLINICAL INDICATION: Intubation TECHNIQUE: Single frontal chest x-ray. COMPARISON: 08/29/2016, 05:12 p.m. FINDINGS: Endotracheal tube tip is in the trachea. There is stable moderate cardiomegaly and mild to moderate pulmonary vascular congestion/edema. The patient is status post sternotomy and left-sided AICD geraldine cement. The osseous structures are unremarkable. IMPRESSION: 1. Endotracheal tube tip is in good position. 2. There is stable moderate cardiomegaly and mild to moderate pulmonary vascular congestion/edema. RPTAT: QQ .Bebo Johnson MD, MD Date Time Electronically viewed and signed by .Bebo Johnson MD, on 08/29/2016 19:49 .R/
[2016-08-29 19:50] LABS: ABNORMAL IP MESSAGE 1; HEMATOCRIT 30.9 % (42.0-52.0); HEMOGLOBIN 9.2 g/dl (14.0-18.0); MEAN CORPUSCULAR HEMOGLOBIN 26.7 pg (29.0-33.0); MEAN CORPUSCULAR HGB CONC 29.8 g/dl (32.0-37.0); MEAN CORPUSCULAR VOLUME 89.8 fl (82.0-101.0); PLATELET COUNT 211 10^3/UL (140-415); RED BLOOD COUNT 3.44 10^6/ul (4.70-6.10); RED CELL DISTRIBUTION WIDTH 23.4 % (11.5-14.5); WHITE BLOOD COUNT 7.2 10^3/ul (4.8-10.8)
[2016-08-29 19:53] LABS: AADO2 Arterial 599.6 mmHg (7.0-24.0); Allen Test ACCEPTAB; Arterial Base Excess -7.7 mmol/L (-3.0-3); Arterial COHb 0.5 % (0.0-3.0); Arterial HCO3 19.4 mmol/L (22.0-26.0); Arterial MetHb 0.5 % (0.0-1.5); Arterial Total Hemglobin 10.1 g/dl (12.0-18.0); MODE VENT - AC
[2016-08-29 20:07] LABS: CREATININE 3.47 mg/dl (0.61-1.24)
[2016-08-29 20:08] LABS: CALCIUM 9.4 mg/dl (8.4-10.2)
[2016-08-29 20:59] LABS: LYMPHOCYTES # 0.4 10^3/ul (0.8-2.9); MONOCYTE # 0.6 10^3/ul (0.3-0.9); NEUTROPHIL # 6.1 10^3/ul (1.6-7.5)
[2016-08-29 21:02] LABS: ANISOCYTOSIS 1+; BURR CELLS OCCASIONAL
[2016-08-29 21:03] LABS: ACANTHOCYTES FEW
[2016-08-29 21:05] LABS: PLATELET ESTIMATE PLT APPEAR ADEQUATE; POIKILOCYTOSIS OCCASIONAL
[2016-08-29] MEDS: IMIPENEM-CILAST 500MG IV (PMX) 100 ML IVPB SCH (21:27)
[2016-08-29] MEDS: FENTAnyl (DRIP) 1000 mcg/100mL 100 ML IV SCH (21:38)
[2016-08-29] MEDS: BUMETANIDE IV SCH (23:30)
[2016-08-29] MEDS: D5W IV SCH (23:30)
[2016-08-30] VITALS (91 sets, daily range): BP systolic 87–127; BP diastolic 35–54; PULSE 55–68; RESP 13–25
[2016-08-30] MEDS: ACCU-CHEK XX SCH (02:00)
--- NOTE | 2016-08-30 04:00 | CONS ---
DATE OF ADMISSION: 08/27/2016 DATE OF CONSULTATION: 08/29/2016 HISTORY OF PRESENT ILLNESS: Briefly, this is an 81-year-old gentleman with numerous medical problem s including ischemic cardiomyopathy with depressed ejection fraction, diabetes, coronary artery dise ase status post CABG, chronic kidney disease, and hypertension who was admitted 2 days prior from a rehab facility for what appears to be sepsis due to most likely a urinary source as well as evidence of worsening congestive heart failure and renal failure with progressive need for dialysis. Today, his condition worsened with worsening hypotension requiring transfer to the ICU. He has yet to be dialyzed; however, at this point, in light of his blood pressure, that may not be feasible. PAST MEDICAL HISTORY: As noted above. In addition, pacer. MEDICATIONS: Please see MAR. ALLERGIES: NONE. PAST SURGICAL HISTORY: History of coronary bypass surgery. SOCIAL HISTORY: No tobacco, alcohol, or illicit drug use. FAMILY HISTORY: Noncontributory. REVIEW OF SYSTEMS: Unable to obtain given the patient's altered mental status. PHYSICAL EXAMINATION: VITAL SIGNS: Blood pressure is 87/59, oxygen saturation 100% on nonrebreather, heart rate is 60 and paced. GENERAL: An elderly gentleman, somnolent but responsive to painful stimuli. HEENT: Normocephalic, atraumatic. NECK: Supple, very mild jugular venous distention. CARDIOVASCULAR: Paced S1 and S2 at 16. No murmurs, rubs, or gallops. CHEST: Bilateral crackles. ABDOMEN: Soft, nontender. EXTREMITIES: There is trace lower extremity edema. LABORATORY DATA: Lactate is 4.2, hemoglobin is 10, WBC is 9.5. INR is 2.8. UA with greater than 2 00 WBCs. Urine culture is positive for E. coli which appears to be sensitive to cefazolin and ceftr iaxone. Chest x-ray shows pacer in place, evidence of pulmonary venous congestion with cephalizatio n. IMPRESSION: 1. Shock, most likely septic in a patient with underlying cardiomyopathy; thereby, cannot rule out cardiogenic component. My primary concern is he needs his pacer to be reprogrammed to higher heart rate to maintain his cardiac output in view of his limited stroke volume. 2. Altered mental status likely due to his underlying shock. 3. Chronic kidney disease requiring dialysis as noted above. At this point, he may not tolerate di alysis given his hypotension. 4. Respiratory insufficiency, multifactorial in origin. At this point, his main issue is his alter ed mental status for which he may require intubation. RECOMMENDATIONS: 1. We will contact primary physician as well as summer child caregiver possibly heating element winder to reprog wale his spacer to reset to a higher heart rate around 90 or so to maintain a higher cardiac output. 2. He may need central IV access. 3. Stat ABG and chest x-ray has been obtained. 4. The patient may require intubation given his depressed mental status. 5. We will provide albumin right now to maintain blood pressure. 6. We will initiate vasopressors to keep mean arterial pressure greater than 60. 7. Continue antibiotic coverage for urosepsis. 8. Follow cultures. Dictated By: JESUS HURT MD NK/NTS Conf#: [id number] DID#: [id number] CC: MURIEL EWING MD; HERMAN CARDENAS MD;*End*
--- NOTE | 2016-08-30 04:11 | OPR ---
DATE OF OPERATION: PROCEDURE: Right internal jugular Trialysis catheter insertion. INDICATION: Shock as well as need for hemodialysis. CONSENT: After the risks, alternatives, and benefits of the procedure were described to the family, signed informed consent was obtained. MEDICATIONS: Lidocaine 1% 3 mL locally. TECHNIQUE: Under strict sterile precautions and using ultrasound guidance, the right internal jugul ar was cannulated via Seldinger technique upon first attempt, a catheter was introduced, and the miranda dewire was removed. The catheter was secured in place with 3-0 silk sutures, and all ports were flu shed. Sterile adhesive dressings were applied, and a stat x-ray was ordered. COMPLICATIONS: None. FOLLOWUP STUDIES: Stat chest x-ray. Dictated By: JESUS HURT MD NK/NTS Conf#: [id number] DID#: [id number] CC: HERMAN CARDENAS MD;*EndCC*
--- NOTE | 2016-08-30 04:12 | OPR ---
DATE OF OPERATION: 08/29/2016 PROCEDURE: Endotracheal intubation. INDICATION: Altered mental status, shock, and severe acidosis. CONSENT: After the risks, alternatives, and benefits of the procedure were described to the patient 's son, signed informed consent was obtained. MEDICATIONS: Etomidate 20 mg IV push, succinylcholine 50 mg IV push. TECHNIQUE: The patient was bagged with 100% FIO2 and maintained arterial oxygen saturation of 100% throughout the procedure. Under direct laryngoscopy, using a MAC 3 blade, a grade II view of the vo allyson cords was obtained. A 7.5 endotracheal tube was advanced passed the vocal cords, and the stylet was removed. The ET tube was secured at 23 cm at the lips. Initial confirmation was made with darshana ateral breath sounds and positive end tidal CO2. COMPLICATIONS: None. FOLLOWUP STUDIES: Stat chest x-ray has been ordered and is pending. Dictated By: JESUS HURT MD NK/NTS Conf#: [id number] DID#: [id number] CC: HERMAN CARDENAS MD;*EndCC*
--- NOTE | 2016-08-30 05:19 | PN ---
DATE: 08/29/2016 INFECTIOUS DISEASE PROGRESS NOTE SUBJECTIVE: The patient is tachypneic, tachycardic, and does not look good. Family at bedside. He is in mild distress. No fevers. VITAL SIGNS: Temperature 98.1, pulse 60, respirations 18, blood pressure 105/58, saturation 100% on nasal cannula. LABORATORY DATA: WBC 7.2, H and H 9.2 and 30.9, platelets 211, BUN 79, creatinine 2.93. Lactic aci d 7.3. MICROBIOLOGY: Urine culture grew E. coli. DIAGNOSTICS: Chest x-ray revealed stable moderate cardiomegaly with mild to moderate pulmonary vasc ular congestion, questionable left atelectasis versus mild pleural effusion. ANTIMICROBIALS: 1. Cefepime. 2. Vancomycin. OBJECTIVE: GENERAL: This is a chronically ill appearing elderly man who is in mild distress. HEENT: Atraumatic, normocephalic. Sclerae nonicteric. Pupils mucosa dry. NECK: Supple. Trachea midline. CHEST: Rise symmetrical. Breath sounds diminished at the bases. HEART: S1, S2. ABDOMEN: Distended, soft. Bowel sounds hypoactive. EXTREMITIES: With bilateral edema. ASSESSMENT: 1. Severe sepsis with lactic acidosis. 2. Acute on chronic kidney disease. 3. Acute respiratory failure. 4. Fluid overload, possible pneumonia. 5. Escherichia coli urinary tract infection. 6. Electrolyte imbalance. 7. History of coronary artery bypass graft and ischemic cardiomyopathy. PLAN: The patient is doing poorly, pending Fidel catheter placement for possible hemodialysis. H e is on vancomycin and cefepime which we are going to continue. Blood cultures since admission nega tive. We will change cefepime to imipenem to add anaerobic coverage. Monitor lactic acid levels, a nd plan to transfer to ICU. Follow recommendations of consultants. Dictated By: ADA MICHELLE TRACTOR DRIVER TEAMSTER for CHUNG VALLE MD NI/NTS Conf#: [id number] DID#: [id number]
[2016-08-30 05:25] LABS: ADD SCAN DIFF NO
[2016-08-30 05:39] LABS: ABNORMAL IP MESSAGE 1; HEMATOCRIT 25.3 % (42.0-52.0); HEMOGLOBIN 7.9 g/dl (14.0-18.0); MEAN CORPUSCULAR HEMOGLOBIN 26.6 pg (29.0-33.0); MEAN CORPUSCULAR HGB CONC 31.2 g/dl (32.0-37.0); MEAN CORPUSCULAR VOLUME 85.2 fl (82.0-101.0); MEAN PLATELET VOLUME 10.3 fl (7.4-10.4); PLATELET COUNT 186 10^3/UL (140-415); RED BLOOD COUNT 2.97 10^6/ul (4.70-6.10)
[2016-08-30 05:51] LABS: INR 3.03; PROTIME 31.8 Sec (12.2-14.2); PT RATIO 2.5
[2016-08-30 06:07] LABS: ALBUMIN 3.7 g/dl (3.3-4.9)
[2016-08-30 06:10] LABS: ALBUMIN/GLOBULIN RATIO 1.48; BILIRUBIN,DIRECT 0.4 mg/dl (0.00-0.20); BILIRUBIN,INDIRECT 1.3 mg/dl (0-1.1); BILIRUBIN,TOTAL 1.7 mg/dl (0.2-1.3); CREATININE 1.96 mg/dl (0.61-1.24); TOTAL PROTEIN 6.2 g/dl (6.1-8.1)
[2016-08-30 06:11] LABS: CALCIUM 9.3 mg/dl (8.4-10.2)
[2016-08-30 06:17] LABS: POTASSIUM 2.5 mmol/L (3.5-5.1)
[2016-08-30] MEDS: INSULIN ASPART [NOVOLOG] 3 ML PEN SC SCH ×4 (07:35→20:52)
[2016-08-30] MEDS: POTASSIUM CHLORIDE 250 ML IVPB SCH ×2 (08:18→11:38)
[2016-08-30 08:54] LABS: AADO2 Arterial 175.5 mmHg (7.0-24.0); Allen Test ACCEPTAB; Arterial Base Excess 5.7 mmol/L (-3.0-3); Arterial COHb 0.2 % (0.0-3.0); Arterial Fraction of Oxyhgb 98.6 % (93.0-99.0); Arterial HCO3 26.1 mmol/L (22.0-26.0); Arterial MetHb 0.7 % (0.0-1.5); Arterial Total Hemglobin 8.9 g/dl (12.0-18.0); MODE VENT - AC
[2016-08-30 09:18] LABS: EOSINOPHILS # 0.1 10^3/ul (0.0-0.5); LYMPHOCYTES # 0.4 10^3/ul (0.8-2.9); MONOCYTE # 0.4 10^3/ul (0.3-0.9); NEUTROPHIL # 6.2 10^3/ul (1.6-7.5)
[2016-08-30] MEDS ORDERED: VANCOMYCIN 1 GM in NS 250 ML IVPB SCH (10:00)
[2016-08-30] MEDS: SUCRALFATE 1 GM TAB PO SCH ×4 (10:22→20:49)
[2016-08-30] MEDS: METOLAZONE 5 MG TAB PO SCH (10:22)
[2016-08-30] MEDS: IMIPENEM-CILAST 500MG IV (PMX) 100 ML IVPB SCH ×2 (10:23→20:48)
[2016-08-30] MEDS: INSULIN GLARGINE [LANtus] 3 ML PEN SC SCH (10:27)
--- NOTE | 2016-08-30 11:36 | CONS ---
Date/Time of Note Date/Time of Note DATE: 08/30/16 TIME: 11:28 Consult Date/Type/Reason Admit Date/Time Aug 27, 2016 at 21:25 Initial Consult Date Type of Consultation: Pulm/CCM Subjective Sedated on MV. Remains on levophed gtt. s/p HD. Now with good UO on bumex gtt. Objective Vital Signs Date Time Temp Pulse Resp B/P Pulse Ox O2 Delivery O2 Flow Rate FiO2 08/30/16 10:58 50 08/30/16 08:30 60 24 124/36 100 Mechanical Ventilator 08/30/16 04:00 99.2 08/29/16 08:20 2.0 Intake and Output 08/29/16 08/29/16 08/30/16 15:00 23:00 07:00 Intake Total 50 ml 1052.25 ml 629.5 ml Output Total 4380 ml 185 ml Balance 50 ml -3327.75 ml 444.5 ml Exam GENERAL: An elderly gentleman on MV HEENT: Normocephalic, atraumatic. ET tube in place NECK: Supple, very mild jugular venous distention. CARDIOVASCULAR: Paced S1 and S2 at 16. No murmurs, rubs, or gallops. CHEST: Bilateral crackles. ABDOMEN: Soft, nontender. EXTREMITIES: There is trace lower extremity edema. Results/Medications Result Diagram: 08/30/16 0500 08/30/16 0500 Results 24 hrs Laboratory Tests Test 08/29/16 11:40 08/29/16 12:12 08/29/16 15:10 08/29/16 15:15 Bedside Glucose 151 Potassium Level 4.6 4.7 Lactic Acid Level 5.4 *H 4.2 *H Test 08/29/16 16:47 08/29/16 17:03 08/29/16 17:20 08/29/16 18:21 Bedside Glucose 181 189 Blood Gas Specimen Source Blood arterial Arterial Blood Date Drawn 08/29/2016 5:35:08 PM Arterial Blood pH (Temp corrected) 7.097 *L Arterial Blood pCO2 (Temp correct) 71.7 H Arterial Blood pO2 (Temp corrected) 51.6 *L Arterial Blood HCO3 21.6 L Arterial Blood Base Excess -8.7 L Arterial Blood Oxygen Saturation 72.1 L Sebastien Test ACCEPTAB Arterial Blood Gas Puncture Site Left Radial Arterial Blood Carboxyhemoglobin 0.3 Arterial Blood Methemoglobin 0.5 Blood Gas A-a O2 Differential 589.7 H Oxyhemoglobin Percent 71.5 L Total Hemoglobin 11.0 L Blood Gas Temperature 37.0 Blood Gas Modality MASK - NRB FiO2 100.0 Blood Gas Critical Value Read Back Tammy ROGERS RN Blood Gas Notified Whom ALBERTO Blood Gas Notified Time 08/29/2016 5:45:20 PM Prothrombin Time 27.9 H Prothrombin Time Ratio 2.2 INR International Normalized Ratio 2.57 Test 08/29/16 19:42 08/29/16 21:17 08/30/16 03:25 08/30/16 05:00 White Blood Count 7.2 # 7.0 Red Blood Count 3.44 L 2.97 L Hemoglobin 9.2 L 7.9 L Hematocrit 30.9 L 25.3 L Mean Corpuscular Volume 89.8 85.2 Mean Corpuscular Hemoglobin 26.7 L 26.6 L Mean Corpuscular Hemoglobin Concent 29.8 L 31.2 L Red Cell Distribution Width 23.4 H 23.0 H Platelet Count 211 # 186 Mean Platelet Volume 10.0 10.3 Neutrophils % 85.0 H 88.0 H Lymphocytes % 5.0 L 6.0 L Monocytes % 9.0 5.0 Metamyelocytes % 1.0 H Nucleated Red Blood Cells % 4.0 H 17.0 H Neutrophils # 6.1 6.2 Lymphocytes # 0.4 L 0.4 L Monocytes # 0.6 0.4 Metamyelocytes # 0.1 Platelet Estimate PLT APPEAR ADEQUATE Poikilocytosis OCCASIONAL Anisocytosis 1+ Macrocytosis 1+ Acanthocytes FEW Blood Gas Specimen Source Blood arterial Arterial Blood Date Drawn 08/29/2016 7:37:22 PM Arterial Blood pH (Temp corrected) 7.239 *L Arterial Blood pCO2 (Temp correct) 46.4 H Arterial Blood pO2 (Temp corrected) 67.0 L Arterial Blood HCO3 19.4 L Arterial Blood Base Excess -7.7 L Arterial Blood Oxygen Saturation 89.9 L Sebastien Test ACCEPTAB Arterial Blood Gas Puncture Site Right Radial Arterial Blood Carboxyhemoglobin 0.5 Arterial Blood Methemoglobin 0.5 Blood Gas A-a O2 Differential 599.6 H Oxyhemoglobin Percent 89.0 L Total Hemoglobin 10.1 L Blood Gas Temperature 37.0 Blood Gas Respiration Rate 24.0 Blood Gas Actual Respiration Rate 24 Blood Gas Modality VENT - AC FiO2 100.0 Blood Gas Tidal Volume 450.0 Blood Gas Low PEEP Setting 5.0 Blood Gas Inspiratory Pressure 32.0 Blood Gas Critical Value Read Back STORMY OLIVIER Blood Gas Notified Whom RAJEEV Blood Gas Notified Time 08/29/2016 7:52:01 PM Sodium Level 132 L 140 Potassium Level 5.0 2.5 #*L Chloride Level 88 L 100 # Carbon Dioxide Level 20 L 25 Anion Gap 29 H 18 #H Blood Urea Nitrogen 86 H 43 #H Creatinine 3.47 H 1.96 #H Glucose Level 159 63 #L Lactic Acid Level 6.0 *H 4.2 *H 3.6 H Calcium Level 9.4 9.3 Bedside Glucose 164 Eosinophils % 1.0 Eosinophils # 0.1 Prothrombin Time 31.8 H Prothrombin Time Ratio 2.5 INR International Normalized Ratio 3.03 Total Bilirubin 1.7 H Direct Bilirubin 0.40 #H Indirect Bilirubin 1.3 H Aspartate Amino Transf (AST/SGOT) 136 #H Alanine Aminotransferase (ALT/SGPT) 96 H Alkaline Phosphatase 135 H Total Protein 6.2 # Albumin 3.7 Globulin 2.50 Albumin/Globulin Ratio 1.48 Random Vancomycin Level 8.6 Test 08/30/16 06:54 08/30/16 07:00 08/30/16 08:19 Bedside Glucose 141 122 Blood Gas Specimen Source Blood arterial Arterial Blood Date Drawn 08/30/2016 8:40:11 AM Arterial Blood pH (Temp corrected) 7.653 *H Arterial Blood pCO2 (Temp correct) 24.1 L Arterial Blood pO2 (Temp corrected) 333.7 H Arterial Blood HCO3 26.1 H Arterial Blood Base Excess 5.7 H Arterial Blood Oxygen Saturation 99.5 Sebastien Test ACCEPTAB Arterial Blood Gas Puncture Site Right Brachial Arterial Blood Carboxyhemoglobin 0.2 Arterial Blood Methemoglobin 0.7 Blood Gas A-a O2 Differential 175.5 H Oxyhemoglobin Percent 98.6 Total Hemoglobin 8.9 L Blood Gas Temperature 37.0 Blood Gas Respiration Rate 24.0 Blood Gas Actual Respiration Rate 28 Blood Gas Modality VENT - AC FiO2 75.0 Blood Gas Tidal Volume 550.0 Blood Gas Low PEEP Setting 10.0 Blood Gas Critical Value Read Back CHARLINE BAEZA Blood Gas Notified Whom MIKE ROJAS Blood Gas Notified Time 08/30/2016 8:54:22 AM Medications Current Medications Acetaminophen (Tylenol Tab) 650 mg Q6H PRN PO PAIN AND OR ELEVATED TEMP; Start 08/27/16 at 23:00 Insulin Glargine (Lantus) 10 unit QAM SC Last administered on 08/30/16 10:27; Admin Dose 10 UNIT; Start 08/28/16 at 09:00 Diagnostic Test (Pha) (Accu-Chek) 1 ea 02 XX ; Start 08/28/16 at 02:00 Ondansetron HCl (Zofran Inj) 4 mg Q6H PRN IV NAUSEA AND/OR VOMITING; Start at 23:00 Miscellaneous Information 1 ea NOTE XX ; Start 08/27/16 at 23:00 Glucose (Glutose) 15 gm Q15M PRN PO DECREASED GLUCOSE; Start 08/27/16 at 23:00 Glucose (Glutose) 22.5 gm Q15M PRN PO DECREASED GLUCOSE; Start 08/27/16 at 23: 00 Dextrose (D50w Syringe) 25 ml Q15M PRN IV DECREASED GLUCOSE Last administered on 08/30/16 06:26; Admin Dose 25 ML; Start 08/27/16 at 23:00 Dextrose (D50w Syringe) 50 ml Q15M PRN IV DECREASED GLUCOSE; Start 08/27/16 at 23:00 Glucagon (Glucagen) 1 mg Q15M PRN IM DECREASED GLUCOSE; Start 08/27/16 at 23:00 Glucose (Glutose) 15 gm Q15M PRN BUCCAL DECREASED GLUCOSE; Start 08/27/16 at 23 :00 Carvedilol (Coreg) 3.125 mg BID PO Last administered on 08/29/16 09:54; Admin Dose 3.125 MG; Start 08/28/16 at 09:00; Status Future Hold Isosorbide Dinitrate (Isordil) 10 mg TID PO Last administered on 08/29/16 09:54 ; Admin Dose 10 MG; Start 08/28/16 at 09:00; Status Future Hold Sucralfate 1 gm 1 gm QID PO Last administered on 08/30/16 10:22; Admin Dose 1 GM; Start 08/28/16 at 09:00 Bumetanide/ Dextrose (Bumex/D5W) 250 ml @ 10 mls/hr Q24H IV Last administered on 08/29/16 23:30; Admin Dose 10 MLS/HR; Start 08/28/16 at 16:30; Stop 08/30/16 at 12:00 Amiodarone HCl (Cordarone) 200 mg DAILY PO Last administered on 08/29/16 09:53 ; Admin Dose 200 MG; Start 08/29/16 at 09:00; Status Future Hold Hydralazine HCl (Apresoline) 10 mg Q8 PO Last administered on 08/29/16 05:52; Admin Dose 10 MG; Start 08/28/16 at 22:00; Status Future Hold Metolazone 5 mg 5 mg DAILY PO Last administered on 08/30/16 10:22; Admin Dose 5 MG; Start 08/29/16 at 09:00 Fentanyl 100 ml @ 2.5 mls/hr TITRATE IV Last administered on 08/29/16 21:38; Admin Dose 2.5 MLS/HR; Start 08/29/16 at 18:30 Norepinephrine 250 ml @ 1.875 mls/ hr TITRATE IV Last administered on 18:27; Admin Dose 18.75 MLS/HR; Start 08/29/16 at 18:30 Imipenem/ Cilastatin Sodium 100 ml @ 100 mls/hr Q12 IVPB Last administered on 08/30/16 10:23; Admin Dose 100 MLS/HR; Start 08/29/16 at 21:00 Norepinephrine 16 mg/Dextrose 500 ml @ 1.87 mls/hr TITRATE IV Last administered on 08/30/16 05:49; Admin Dose 7.5 MLS/HR; Start 08/30/16 at 01:30 Potassium Chloride 250 ml @ 62.5 mls/hr Q4H IVPB Last administered on 08:18; Admin Dose 62.5 MLS/HR; Start 08/30/16 at 07:00; Stop 08/30/16 at 14: 59 Vancomycin HCl (Vancocin) 250 ml @ 125 mls/hr 10 IVPB Last administered on 08/30 10:35; Admin Dose 125 MLS/HR; Start 08/30/16 at 10:00; Stop 08/30/16 at 23: 00 Assessment/Plan Additional Assessment/Plan IMPRESSION: 1. Shock, most likely septic in a patient with underlying cardiomyopathy; thereby, cannot rule out cardiogenic component. M 2. Altered mental status likely due to his underlying shock and uremia 3. Renal Failure 4. Acute Hypercapnic resp failure--secondary to shock and ARF 5. Anemia 7. HypoK+ s/p HD RECOMMENDATIONS: 1. Adjust vent now that acidosis is improved. Lower RR and Vt; lower PEEP 2. Would hold off HD 3. Abx per ID 4. Titrate levophed gtt to MAP > 65 5. F/U cx's 7. Consider setting pacer at higher rate to optimize CO 8. Replete K+ 35 min cc time at bedside JESUS HURT MD Aug 30, 2016 11:36
[2016-08-30] MEDS: FENTAnyl (DRIP) 1000 mcg/100mL 100 ML IV SCH (11:38)
--- NOTE | 2016-08-30 13:54 | CONS ---
Date/Time of Note Date/Time of Note DATE: 08/30/16 TIME: 13:45 Assessment/Plan Assessment/Plan Additional Assessment/Plan 1. Acute Congestive heart failure exacerbation 2. Ischemic Cardiomyopathy with decreased left ventricular ejection fraction. 3. Coronary artery disease status post coronary artery bypass grafting. 4. S/P automatic implantable cardioverter-defibrillator implant. 5. Paroxysmal atrial fibrillation. 6. Renal failure on HD 7. Anemia. 8. Encephalopathy. 9. Coagulopathy. 10. Urinary tract infection. 11. Pneumonia 12. Shock Liver Decompensated Heart failure with superimposed pneumonia INR 3.3 Hb 7.9 Potassium 2.5 Continue Ventilatory Support Continue Norepinephrine Avoid Volume Overload Continue HD Continue Bumex and Metolazone Continue Antibiotics Recommend Blood Transfusion FFP PRN Replete Potassium Consultation Date/Type/Reason Admit Date/Time Aug 27, 2016 at 21:25 Initial Consult Date Type of Consultation: Pulm/CCM Exam/Review of Systems Vital Signs Vitals Vital Signs Date Time Temp Pulse Resp B/P Pulse Ox O2 Delivery O2 Flow Rate FiO2 08/30/16 12:00 60 08/30/16 11:45 15 96/37 100 Mechanical Ventilator 08/30/16 11:30 99.3 08/30/16 10:58 50 08/29/16 08:20 2.0 Intake and Output 08/29/16 08/29/16 08/30/16 14:59 22:59 06:59 Intake Total 50 ml 1048.25 ml 610 ml Output Total 4360 ml 205 ml Balance 50 ml -3311.75 ml 405 ml Exam Intubated Constitutional: non-verbal Head: atraumatic, normocephalic Neck: non-tender, supple Respiratory: other (Mechanical Breath sounds heard bilaterally) Cardiovascular: regular rate and rhythm Gastrointestinal: nl liver, spleen, non-tender, soft Extremities: normal pulses Results Result Diagram: 08/30/16 0500 08/30/16 0500 Results 24 hrs Laboratory Tests Test 08/29/16 15:10 08/29/16 15:15 08/29/16 16:47 08/29/16 17:03 Lactic Acid Level 4.2 *H Potassium Level 4.7 Bedside Glucose 181 Blood Gas Specimen Source Blood arterial Arterial Blood Date Drawn 08/29/2016 5:35:08 PM Arterial Blood pH (Temp corrected) 7.097 *L Arterial Blood pCO2 (Temp correct) 71.7 H Arterial Blood pO2 (Temp corrected) 51.6 *L Arterial Blood HCO3 21.6 L Arterial Blood Base Excess -8.7 L Arterial Blood Oxygen Saturation 72.1 L Sebastien Test ACCEPTAB Arterial Blood Gas Puncture Site Left Radial Arterial Blood Carboxyhemoglobin 0.3 Arterial Blood Methemoglobin 0.5 Blood Gas A-a O2 Differential 589.7 H Oxyhemoglobin Percent 71.5 L Total Hemoglobin 11.0 L Blood Gas Temperature 37.0 Blood Gas Modality MASK - NRB FiO2 100.0 Blood Gas Critical Value Read Back Tammy ROGERS RN Blood Gas Notified Whom ALBERTO Blood Gas Notified Time 08/29/2016 5:45:20 PM Test 08/29/16 17:20 08/29/16 18:21 08/29/16 19:42 08/29/16 21:17 Prothrombin Time 27.9 H Prothrombin Time Ratio 2.2 INR International Normalized Ratio 2.57 Bedside Glucose 189 164 White Blood Count 7.2 # Red Blood Count 3.44 L Hemoglobin 9.2 L Hematocrit 30.9 L Mean Corpuscular Volume 89.8 Mean Corpuscular Hemoglobin 26.7 L Mean Corpuscular Hemoglobin Concent 29.8 L Red Cell Distribution Width 23.4 H Platelet Count 211 # Mean Platelet Volume 10.0 Neutrophils % 85.0 H Lymphocytes % 5.0 L Monocytes % 9.0 Metamyelocytes % 1.0 H Nucleated Red Blood Cells % 4.0 H Neutrophils # 6.1 Lymphocytes # 0.4 L Monocytes # 0.6 Metamyelocytes # 0.1 Platelet Estimate PLT APPEAR ADEQUATE Poikilocytosis OCCASIONAL Anisocytosis 1+ Macrocytosis 1+ Acanthocytes FEW Blood Gas Specimen Source Blood arterial Arterial Blood Date Drawn 08/29/2016 7:37:22 PM Arterial Blood pH (Temp corrected) 7.239 *L Arterial Blood pCO2 (Temp correct) 46.4 H Arterial Blood pO2 (Temp corrected) 67.0 L Arterial Blood HCO3 19.4 L Arterial Blood Base Excess -7.7 L Arterial Blood Oxygen Saturation 89.9 L Sebastien Test ACCEPTAB Arterial Blood Gas Puncture Site Right Radial Arterial Blood Carboxyhemoglobin 0.5 Arterial Blood Methemoglobin 0.5 Blood Gas A-a O2 Differential 599.6 H Oxyhemoglobin Percent 89.0 L Total Hemoglobin 10.1 L Blood Gas Temperature 37.0 Blood Gas Respiration Rate 24.0 Blood Gas Actual Respiration Rate 24 Blood Gas Modality VENT - AC FiO2 100.0 Blood Gas Tidal Volume 450.0 Blood Gas Low PEEP Setting 5.0 Blood Gas Inspiratory Pressure 32.0 Blood Gas Critical Value Read Back STORMY OLIVIER Blood Gas Notified Whom KM Blood Gas Notified Time 08/29/2016 7:52:01 PM Sodium Level 132 L Potassium Level 5.0 Chloride Level 88 L Carbon Dioxide Level 20 L Anion Gap 29 H Blood Urea Nitrogen 86 H Creatinine 3.47 H Glucose Level 159 Lactic Acid Level 6.0 *H Calcium Level 9.4 Test 08/30/16 03:25 08/30/16 05:00 08/30/16 06:54 08/30/16 07:00 Lactic Acid Level 4.2 *H 3.6 H White Blood Count 7.0 Red Blood Count 2.97 L Hemoglobin 7.9 L Hematocrit 25.3 L Mean Corpuscular Volume 85.2 Mean Corpuscular Hemoglobin 26.6 L Mean Corpuscular Hemoglobin Concent 31.2 L Red Cell Distribution Width 23.0 H Platelet Count 186 Mean Platelet Volume 10.3 Neutrophils % 88.0 H Lymphocytes % 6.0 L Monocytes % 5.0 Eosinophils % 1.0 Nucleated Red Blood Cells % 17.0 H Neutrophils # 6.2 Lymphocytes # 0.4 L Monocytes # 0.4 Eosinophils # 0.1 Prothrombin Time 31.8 H Prothrombin Time Ratio 2.5 INR International Normalized Ratio 3.03 Sodium Level 140 Potassium Level 2.5 #*L Chloride Level 100 # Carbon Dioxide Level 25 Anion Gap 18 #H Blood Urea Nitrogen 43 #H Creatinine 1.96 #H Glucose Level 63 #L Calcium Level 9.3 Total Bilirubin 1.7 H Direct Bilirubin 0.40 #H Indirect Bilirubin 1.3 H Aspartate Amino Transf (AST/SGOT) 136 #H Alanine Aminotransferase (ALT/SGPT) 96 H Alkaline Phosphatase 135 H Total Protein 6.2 # Albumin 3.7 Globulin 2.50 Albumin/Globulin Ratio 1.48 Random Vancomycin Level 8.6 Bedside Glucose 141 Blood Gas Specimen Source Blood arterial Arterial Blood Date Drawn 08/30/2016 8:40:11 AM Arterial Blood pH (Temp corrected) 7.653 *H Arterial Blood pCO2 (Temp correct) 24.1 L Arterial Blood pO2 (Temp corrected) 333.7 H Arterial Blood HCO3 26.1 H Arterial Blood Base Excess 5.7 H Arterial Blood Oxygen Saturation 99.5 Sebastien Test ACCEPTAB Arterial Blood Gas Puncture Site Right Brachial Arterial Blood Carboxyhemoglobin 0.2 Arterial Blood Methemoglobin 0.7 Blood Gas A-a O2 Differential 175.5 H Oxyhemoglobin Percent 98.6 Total Hemoglobin 8.9 L Blood Gas Temperature 37.0 Blood Gas Respiration Rate 24.0 Blood Gas Actual Respiration Rate 28 Blood Gas Modality VENT - AC FiO2 75.0 Blood Gas Tidal Volume 550.0 Blood Gas Low PEEP Setting 10.0 Blood Gas Critical Value Read Back CHARLINE BAEZA Blood Gas Notified Whom MIKE ROJAS Blood Gas Notified Time 08/30/2016 8:54:22 AM Test 08/30/16 08:19 08/30/16 12:11 Bedside Glucose 122 105 Medications Medications Current Medications Acetaminophen (Tylenol Tab) 650 mg Q6H PRN PO PAIN AND OR ELEVATED TEMP; Start 08/27/16 at 23:00 Insulin Glargine (Lantus) 10 unit QAM SC Last administered on 08/30/16 10:27; Admin Dose 10 UNIT; Start 08/28/16 at 09:00 Diagnostic Test (Pha) (Accu-Chek) 1 ea 02 XX ; Start 08/28/16 at 02:00 Ondansetron HCl (Zofran Inj) 4 mg Q6H PRN IV NAUSEA AND/OR VOMITING; Start at 23:00 Miscellaneous Information 1 ea NOTE XX ; Start 08/27/16 at 23:00 Glucose (Glutose) 15 gm Q15M PRN PO DECREASED GLUCOSE; Start 08/27/16 at 23:00 Glucose (Glutose) 22.5 gm Q15M PRN PO DECREASED GLUCOSE; Start 08/27/16 at 23: 00 Dextrose (D50w Syringe) 25 ml Q15M PRN IV DECREASED GLUCOSE Last administered on 08/30/16 06:26; Admin Dose 25 ML; Start 08/27/16 at 23:00 Dextrose (D50w Syringe) 50 ml Q15M PRN IV DECREASED GLUCOSE; Start 08/27/16 at 23:00 Glucagon (Glucagen) 1 mg Q15M PRN IM DECREASED GLUCOSE; Start 08/27/16 at 23:00 Glucose (Glutose) 15 gm Q15M PRN BUCCAL DECREASED GLUCOSE; Start 08/27/16 at 23 :00 Carvedilol (Coreg) 3.125 mg BID PO Last administered on 08/29/16 09:54; Admin Dose 3.125 MG; Start 08/28/16 at 09:00; Status Future Hold Isosorbide Dinitrate (Isordil) 10 mg TID PO Last administered on 08/29/16 09:54 ; Admin Dose 10 MG; Start 08/28/16 at 09:00; Status Future Hold Sucralfate (Carafate) 1 gm QID PO Last administered on 08/30/16 10:22; Admin Dose 1 GM; Start 08/28/16 at 09:00 Amiodarone HCl (Cordarone) 200 mg DAILY PO Last administered on 08/29/16 09:53 ; Admin Dose 200 MG; Start 08/29/16 at 09:00; Status Future Hold Hydralazine HCl (Apresoline) 10 mg Q8 PO Last administered on 08/29/16 05:52; Admin Dose 10 MG; Start 08/28/16 at 22:00; Status Future Hold Metolazone 5 mg 5 mg DAILY PO Last administered on 08/30/16 10:22; Admin Dose 5 MG; Start 08/29/16 at 09:00 Fentanyl 100 ml @ 2.5 mls/hr TITRATE IV Last administered on 08/30/16 11:38; Admin Dose 2.5 MLS/HR; Start 08/29/16 at 18:30 Norepinephrine 250 ml @ 1.875 mls/ hr TITRATE IV Last administered on 18:27; Admin Dose 18.75 MLS/HR; Start 08/29/16 at 18:30 Imipenem/ Cilastatin Sodium 100 ml @ 100 mls/hr Q12 IVPB Last administered on 08/30/16 10:23; Admin Dose 100 MLS/HR; Start 08/29/16 at 21:00 Norepinephrine 16 mg/Dextrose 500 ml @ 1.87 mls/hr TITRATE IV Last administered on 08/30/16 05:49; Admin Dose 7.5 MLS/HR; Start 08/30/16 at 01:30 Potassium Chloride 250 ml @ 62.5 mls/hr Q4H IVPB Last administered on 4/2/ 17at 11:38; Admin Dose 62.5 MLS/HR; Start 08/30/16 at 07:00; Stop 08/30/16 at 14: 59 Vancomycin HCl (Vancocin) 250 ml @ 125 mls/hr 10 IVPB Last administered on 08/30t 10:35; Admin Dose 125 MLS/HR; Start 08/30/16 at 10:00; Stop 08/30/16 at 23: 00 CLARISSA ENRIQUE M.D. Aug 30, 2016 13:54
--- NOTE | 2016-08-30 14:37 | RADRPT ---
PROCEDURE: XR Chest. CLINICAL INDICATION: Shortness of breath TECHNIQUE: Single view of the chest COMPARISON: Chest radiograph August 29, 2016 FINDINGS: There is a left-sided AICD. The tip of the endotracheal tube is 4.6 cm above the travis. Enteric t ube courses below the diaphragm. There are sternal wires. There is a right IJ line with its tip at the cavoatrial junction. Cardiac silhouette is mildly enlarged and there are small bilateral pleural effusions with pulmonary vascular congestion. There is no new focal consolidation. There is no pneumothorax. There is no acute osseous abnormality. IMPRESSION: 1. Redemonstration of pulmonary vascular congestion with small bilateral pleural effusions and enla rged cardiac silhouette, accounting for differences in technique, similar to the previous study. 2. No new focal consolidation. 3. Lines and tubes as above. RPTAT: UU .Aj Merrill MD, MD Date Time Electronically viewed and signed by .Aj Merrill MD, on 08/30/2016 14:36 .K/
--- NOTE | 2016-08-30 15:42 | PN ---
DATE: 08/30/2016 SUBJECTIVE: Patient was transferred yesterday to ICU intubated and sedated on Levophed drip. He lo oks comfortable, no fevers. VITAL SIGNS: Temperature 99.3, pulse 60, respirations 15, blood pressure 96/37, saturation 100 on 6 0 FiO2. WBC 7, H and H 7.9 and 25.3, platelets 186, neutrophils 88, no bands. BUN 43, creatinine 1.96. MICROBIOLOGY: Urine culture grew E. coli. Blood cultures remain negative. INDWELLINGS: Endotracheal tube, NG tube, right IJ Fidel catheter, Gan. DIAGNOSTICS: Chest x-ray from yesterday revealed cardiomegaly and pulmonary vascular congestion. ANTIMICROBIALS: The patient is on IV vancomycin and imipenem. PHYSICAL EXAMINATION: GENERAL: Fragile, elderly man who is in no distress. HEENT: Head atraumatic, normocephalic. Sclerae anicteric. Buccal mucosa dry. NECK: Supple, trachea midline. CHEST: Rise symmetrical. Breath sounds diminished to bases. HEART: S1, S2. ABDOMEN: Distended, soft. Bowel tones hypoactive. EXTREMITIES: Bilateral edema. SKIN: Positive for anasarca. ASSESSMENT: 1. Severe sepsis with shock. 2. Urinary tract infection. 3. Acute respiratory failure secondary to fluid overload, rule out aspiration pneumonia. 4. Acute on chronic kidney disease. 5. History of coronary artery bypass graft and ischemic cardiomyopathy. PLAN: The patient remains hemodynamically stable. He was dialyzed yesterday. He is being followed by multiple consultants. We will continue him on broad spectrum antibiotics. Dictated By: ADA MICHELLE COMMUNITY REPRESENTATIVE for CHUNG VALLE MD NI/NTS Conf#: [id number] DID#: [id number] CC: CHUNG VALLE MD; BRITTA ADAM MD;*EndCC*
--- NOTE | 2016-08-30 16:25 | CONS ---
Date/Time of Note Date/Time of Note DATE: 08/30/16 TIME: 16:23 Assessment/Plan Assessment/Plan Chief Complaint/Hosp Course SYSTOLIC HEART FAILURE JAZLYN ON CKD LOW EF ASHD DM HX CAD AICD PLACEMENT ANASASCA PLAN hd Problems: Consultation Date/Type/Reason Admit Date/Time Aug 27, 2016 at 21:25 Initial Consult Date s/p hd on vent awake Exam/Review of Systems Vital Signs Vitals Vital Signs Date Time Temp Pulse Resp B/P Pulse Ox O2 Delivery O2 Flow Rate FiO2 08/30/16 16:00 62 08/30/16 15:35 17 100 40 08/30/16 14:45 102/38 Mechanical Ventilator 08/30/16 11:30 99.3 08/29/16 08:20 2.0 Intake and Output 08/29/16 08/29/16 08/30/16 15:00 23:00 07:00 Intake Total 50 ml 1052.25 ml 629.5 ml Output Total 4380 ml 185 ml Balance 50 ml -3327.75 ml 444.5 ml Exam Cardiovascular: regular rate and rhythm Gastrointestinal: bowel sounds (+), soft Extremities: edema (++), normal pulses Neurological: other (awake) Results Result Diagram: 08/30/16 0500 08/30/16 0500 Results 24 hrs Laboratory Tests Test 08/29/16 16:47 08/29/16 17:03 08/29/16 17:20 08/29/16 18:21 Bedside Glucose 181 189 Blood Gas Specimen Source Blood arterial Arterial Blood Date Drawn 08/29/2016 5:35:08 PM Arterial Blood pH (Temp corrected) 7.097 *L Arterial Blood pCO2 (Temp correct) 71.7 H Arterial Blood pO2 (Temp corrected) 51.6 *L Arterial Blood HCO3 21.6 L Arterial Blood Base Excess -8.7 L Arterial Blood Oxygen Saturation 72.1 L Sebastien Test ACCEPTAB Arterial Blood Gas Puncture Site Left Radial Arterial Blood Carboxyhemoglobin 0.3 Arterial Blood Methemoglobin 0.5 Blood Gas A-a O2 Differential 589.7 H Oxyhemoglobin Percent 71.5 L Total Hemoglobin 11.0 L Blood Gas Temperature 37.0 Blood Gas Modality MASK - NRB FiO2 100.0 Blood Gas Critical Value Read Back Tammy ROGERS RN Blood Gas Notified Whom ALBERTO Blood Gas Notified Time 08/29/2016 5:45:20 PM Prothrombin Time 27.9 H Prothrombin Time Ratio 2.2 INR International Normalized Ratio 2.57 Test 08/29/16 19:42 08/29/16 21:17 08/30/16 03:25 08/30/16 05:00 White Blood Count 7.2 # 7.0 Red Blood Count 3.44 L 2.97 L Hemoglobin 9.2 L 7.9 L Hematocrit 30.9 L 25.3 L Mean Corpuscular Volume 89.8 85.2 Mean Corpuscular Hemoglobin 26.7 L 26.6 L Mean Corpuscular Hemoglobin Concent 29.8 L 31.2 L Red Cell Distribution Width 23.4 H 23.0 H Platelet Count 211 # 186 Mean Platelet Volume 10.0 10.3 Neutrophils % 85.0 H 88.0 H Lymphocytes % 5.0 L 6.0 L Monocytes % 9.0 5.0 Metamyelocytes % 1.0 H Nucleated Red Blood Cells % 4.0 H 17.0 H Neutrophils # 6.1 6.2 Lymphocytes # 0.4 L 0.4 L Monocytes # 0.6 0.4 Metamyelocytes # 0.1 Platelet Estimate PLT APPEAR ADEQUATE Poikilocytosis OCCASIONAL Anisocytosis 1+ Macrocytosis 1+ Acanthocytes FEW Blood Gas Specimen Source Blood arterial Arterial Blood Date Drawn 08/29/2016 7:37:22 PM Arterial Blood pH (Temp corrected) 7.239 *L Arterial Blood pCO2 (Temp correct) 46.4 H Arterial Blood pO2 (Temp corrected) 67.0 L Arterial Blood HCO3 19.4 L Arterial Blood Base Excess -7.7 L Arterial Blood Oxygen Saturation 89.9 L Sebastien Test ACCEPTAB Arterial Blood Gas Puncture Site Right Radial Arterial Blood Carboxyhemoglobin 0.5 Arterial Blood Methemoglobin 0.5 Blood Gas A-a O2 Differential 599.6 H Oxyhemoglobin Percent 89.0 L Total Hemoglobin 10.1 L Blood Gas Temperature 37.0 Blood Gas Respiration Rate 24.0 Blood Gas Actual Respiration Rate 24 Blood Gas Modality VENT - AC FiO2 100.0 Blood Gas Tidal Volume 450.0 Blood Gas Low PEEP Setting 5.0 Blood Gas Inspiratory Pressure 32.0 Blood Gas Critical Value Read Back STORMY OLIVIER Blood Gas Notified Whom Blood Gas Notified Time 08/29/2016 7:52:01 PM Sodium Level 132 L 140 Potassium Level 5.0 2.5 #*L Chloride Level 88 L 100 # Carbon Dioxide Level 20 L 25 Anion Gap 29 H 18 #H Blood Urea Nitrogen 86 H 43 #H Creatinine 3.47 H 1.96 #H Glucose Level 159 63 #L Lactic Acid Level 6.0 *H 4.2 *H 3.6 H Calcium Level 9.4 9.3 Bedside Glucose 164 Eosinophils % 1.0 Eosinophils # 0.1 Prothrombin Time 31.8 H Prothrombin Time Ratio 2.5 INR International Normalized Ratio 3.03 Total Bilirubin 1.7 H Direct Bilirubin 0.40 #H Indirect Bilirubin 1.3 H Aspartate Amino Transf (AST/SGOT) 136 #H Alanine Aminotransferase (ALT/SGPT) 96 H Alkaline Phosphatase 135 H Total Protein 6.2 # Albumin 3.7 Globulin 2.50 Albumin/Globulin Ratio 1.48 Random Vancomycin Level 8.6 Test 08/30/16 06:54 08/30/16 07:00 08/30/16 08:19 08/30/16 12:11 Bedside Glucose 141 122 105 Blood Gas Specimen Source Blood arterial Arterial Blood Date Drawn 08/30/2016 8:40:11 AM Arterial Blood pH (Temp corrected) 7.653 *H Arterial Blood pCO2 (Temp correct) 24.1 L Arterial Blood pO2 (Temp corrected) 333.7 H Arterial Blood HCO3 26.1 H Arterial Blood Base Excess 5.7 H Arterial Blood Oxygen Saturation 99.5 Sebastien Test ACCEPTAB Arterial Blood Gas Puncture Site Right Brachial Arterial Blood Carboxyhemoglobin 0.2 Arterial Blood Methemoglobin 0.7 Blood Gas A-a O2 Differential 175.5 H Oxyhemoglobin Percent 98.6 Total Hemoglobin 8.9 L Blood Gas Temperature 37.0 Blood Gas Respiration Rate 24.0 Blood Gas Actual Respiration Rate 28 Blood Gas Modality VENT - AC FiO2 75.0 Blood Gas Tidal Volume 550.0 Blood Gas Low PEEP Setting 10.0 Blood Gas Critical Value Read Back CHARLINE BAEZA Blood Gas Notified Whom MIKE ROJAS Blood Gas Notified Time 08/30/2016 8:54:22 AM Medications Medications Current Medications Acetaminophen (Tylenol Tab) 650 mg Q6H PRN PO PAIN AND OR ELEVATED TEMP; Start 08/27/16 at 23:00 Insulin Glargine (Lantus) 10 unit QAM SC Last administered on 08/30/16t 10:27; Admin Dose 10 UNIT; Start 08/28/16 at 09:00 Diagnostic Test (Pha) (Accu-Chek) 1 ea 02 XX ; Start 08/28/16 at 02:00 Ondansetron HCl (Zofran Inj) 4 mg Q6H PRN IV NAUSEA AND/OR VOMITING; Start at 23:00 Miscellaneous Information 1 ea NOTE XX ; Start 08/27/16 at 23:00 Glucose (Glutose) 15 gm Q15M PRN PO DECREASED GLUCOSE; Start 08/27/16 at 23:00 Glucose (Glutose) 22.5 gm Q15M PRN PO DECREASED GLUCOSE; Start 08/27/16 at 23: 00 Dextrose (D50w Syringe) 25 ml Q15M PRN IV DECREASED GLUCOSE Last administered on 08/30/16 06:26; Admin Dose 25 ML; Start 08/27/16 at 23:00 Dextrose (D50w Syringe) 50 ml Q15M PRN IV DECREASED GLUCOSE; Start 08/27/16 at 23:00 Glucagon (Glucagen) 1 mg Q15M PRN IM DECREASED GLUCOSE; Start 08/27/16 at 23:00 Glucose (Glutose) 15 gm Q15M PRN BUCCAL DECREASED GLUCOSE; Start 08/27/16 at 23 :00 Carvedilol (Coreg) 3.125 mg BID PO Last administered on 08/29/16 09:54; Admin Dose 3.125 MG; Start 08/28/16 at 09:00; Status Future Hold Isosorbide Dinitrate (Isordil) 10 mg TID PO Last administered on 08/29/16 09:54 ; Admin Dose 10 MG; Start 08/28/16 at 09:00; Status Future Hold Sucralfate (Carafate) 1 gm QID PO Last administered on 08/30/16 10:22; Admin Dose 1 GM; Start 08/28/16 at 09:00 Amiodarone HCl (Cordarone) 200 mg DAILY PO Last administered on 08/29/16 09:53 ; Admin Dose 200 MG; Start 08/29/16 at 09:00; Status Future Hold Hydralazine HCl (Apresoline) 10 mg Q8 PO Last administered on 08/29/16 05:52; Admin Dose 10 MG; Start 08/28/16 at 22:00; Status Future Hold Metolazone 5 mg 5 mg DAILY PO Last administered on 08/30/16 10:22; Admin Dose 5 MG; Start 08/29/16 at 09:00 Fentanyl 100 ml @ 2.5 mls/hr TITRATE IV Last administered on 08/30/16 11:38; Admin Dose 2.5 MLS/HR; Start 08/29/16 at 18:30 Norepinephrine 250 ml @ 1.875 mls/ hr TITRATE IV Last administered on 18:27; Admin Dose 18.75 MLS/HR; Start 08/29/16 at 18:30 Imipenem/ Cilastatin Sodium 100 ml @ 100 mls/hr Q12 IVPB Last administered on 08/30/16 10:23; Admin Dose 100 MLS/HR; Start 08/29/16 at 21:00 Norepinephrine 16 mg/Dextrose 500 ml @ 1.87 mls/hr TITRATE IV Last administered on 08/30/16 05:49; Admin Dose 7.5 MLS/HR; Start 08/30/16 at 01:30 Vancomycin HCl (Vancocin) 250 ml @ 125 mls/hr 10 IVPB Last administered on 08/30 10:35; Admin Dose 125 MLS/HR; Start 08/30/16 at 10:00; Stop 08/30/16 at 23: 00 YANIRA HART MD Aug 30, 2016 16:25
--- NOTE | 2016-08-30 17:07 | PN ---
Date/Time of Note Date/Time of Note DATE: 08/30/16 TIME: 17:00 Assessment/Plan VTE Prophylaxis VTE Prophylaxis Intervention: SCD's Lines/Catheters IV Catheter Type (from [facility]): Fidel WITH SIDE PORT Assessment/Plan Chief Complaint/Hosp Course 1. Severe Sepsis with Lactic Acidosis 2/2 UTI -cont Abx -now off pressors 2. JAZLYN on CKD s/p hemodialysis recently, exacerbation likely from Cardiorenal syndrome -Not improving with a Bumex gtt and HD to be started today -Pt had been off dialysis for over a week and pt now has Volume OD and Azotemia and will need to restart HD today via Fidel 3. Acute Resp Failure 2/2 Volume OD from CKD and CHF -cont vent support, Pulm following 4. Diabetes mellitus type 2. 5. Hx of Atrial fibrillation. 6. History of coronary artery disease, status post coronary artery bypass graft. 7. Acute on chronic congestive heart failure -will need HD, on a Bumex gtt 8. Cirrhosis with Coagulopathy -2 units of FFP were given for Fidel, Hold Eliquis 9. Ischemic cardiomyopathy, ejection fraction 25%, status post AICD -Cards following PPx- Eliquis held / Fidel placement, SCD's Problems: Subjective 24 Hr Interval Summary Subjective hx not possible: pt non-verbal Exam/Review of Systems Vital Signs Vitals Vital Signs Date Time Temp Pulse Resp B/P Pulse Ox O2 Delivery O2 Flow Rate FiO2 08/30/16 16:45 61 15 108/40 100 Mechanical Ventilator 08/30/16 16:00 98.2 08/30/16 15:35 40 08/29/16 08:20 2.0 Intake and Output 08/29/16 08/29/16 08/30/16 15:00 23:00 07:00 Intake Total 50 ml 1052.25 ml 629.5 ml Output Total 4380 ml 185 ml Balance 50 ml -3327.75 ml 444.5 ml Exam Constitutional: non-verbal ENMT: intubated Respiratory: clear to auscultation Cardiovascular: regular rate and rhythm Gastrointestinal: soft, No distended Musculoskeletal: nl extremities to inspection Results Result Diagram: 08/30/16 0500 08/30/16 1610 Results 24 hrs Laboratory Tests Test 08/29/16 17:03 08/29/16 17:20 08/29/16 18:21 08/29/16 19:42 Blood Gas Specimen Source Blood arterial Blood arterial Arterial Blood Date Drawn 08/29/2016 5:35:08 PM 08/29/2016 7:37:22 PM Arterial Blood pH (Temp corrected) 7.097 *L 7.239 *L Arterial Blood pCO2 (Temp correct) 71.7 H 46.4 H Arterial Blood pO2 (Temp corrected) 51.6 *L 67.0 L Arterial Blood HCO3 21.6 L 19.4 L Arterial Blood Base Excess -8.7 L -7.7 L Arterial Blood Oxygen Saturation 72.1 L 89.9 L Sebastien Test ACCEPTAB ACCEPTAB Arterial Blood Gas Puncture Site Left Radial Right Radial Arterial Blood Carboxyhemoglobin 0.3 0.5 Arterial Blood Methemoglobin 0.5 0.5 Blood Gas A-a O2 Differential 589.7 H 599.6 H Oxyhemoglobin Percent 71.5 L 89.0 L Total Hemoglobin 11.0 L 10.1 L Blood Gas Temperature 37.0 37.0 Blood Gas Modality MASK - NRB VENT - AC FiO2 100.0 100.0 Blood Gas Critical Value Read Back Tammy BURROWS RN Blood Gas Notified Whom ALBERTO BOO Blood Gas Notified Time 08/29/2016 5:45:20 PM 08/29/2016 7:52:01 PM Prothrombin Time 27.9 H Prothrombin Time Ratio 2.2 INR International Normalized Ratio 2.57 Bedside Glucose 189 White Blood Count 7.2 # Red Blood Count 3.44 L Hemoglobin 9.2 L Hematocrit 30.9 L Mean Corpuscular Volume 89.8 Mean Corpuscular Hemoglobin 26.7 L Mean Corpuscular Hemoglobin Concent 29.8 L Red Cell Distribution Width 23.4 H Platelet Count 211 # Mean Platelet Volume 10.0 Neutrophils % 85.0 H Lymphocytes % 5.0 L Monocytes % 9.0 Metamyelocytes % 1.0 H Nucleated Red Blood Cells % 4.0 H Neutrophils # 6.1 Lymphocytes # 0.4 L Monocytes # 0.6 Metamyelocytes # 0.1 Platelet Estimate PLT APPEAR ADEQUATE Poikilocytosis OCCASIONAL Anisocytosis 1+ Macrocytosis 1+ Acanthocytes FEW Blood Gas Respiration Rate 24.0 Blood Gas Actual Respiration Rate 24 Blood Gas Tidal Volume 450.0 Blood Gas Low PEEP Setting 5.0 Blood Gas Inspiratory Pressure 32.0 Sodium Level 132 L Potassium Level 5.0 Chloride Level 88 L Carbon Dioxide Level 20 L Anion Gap 29 H Blood Urea Nitrogen 86 H Creatinine 3.47 H Glucose Level 159 Lactic Acid Level 6.0 *H Calcium Level 9.4 Test 08/29/16 21:17 08/30/16 03:25 08/30/16 05:00 08/30/16 06:54 Bedside Glucose 164 141 Lactic Acid Level 4.2 *H 3.6 H White Blood Count 7.0 Red Blood Count 2.97 L Hemoglobin 7.9 L Hematocrit 25.3 L Mean Corpuscular Volume 85.2 Mean Corpuscular Hemoglobin 26.6 L Mean Corpuscular Hemoglobin Concent 31.2 L Red Cell Distribution Width 23.0 H Platelet Count 186 Mean Platelet Volume 10.3 Neutrophils % 88.0 H Lymphocytes % 6.0 L Monocytes % 5.0 Eosinophils % 1.0 Nucleated Red Blood Cells % 17.0 H Neutrophils # 6.2 Lymphocytes # 0.4 L Monocytes # 0.4 Eosinophils # 0.1 Prothrombin Time 31.8 H Prothrombin Time Ratio 2.5 INR International Normalized Ratio 3.03 Sodium Level 140 Potassium Level 2.5 #*L Chloride Level 100 # Carbon Dioxide Level 25 Anion Gap 18 #H Blood Urea Nitrogen 43 #H Creatinine 1.96 #H Glucose Level 63 #L Calcium Level 9.3 Total Bilirubin 1.7 H Direct Bilirubin 0.40 #H Indirect Bilirubin 1.3 H Aspartate Amino Transf (AST/SGOT) 136 #H Alanine Aminotransferase (ALT/SGPT) 96 H Alkaline Phosphatase 135 H Total Protein 6.2 # Albumin 3.7 Globulin 2.50 Albumin/Globulin Ratio 1.48 Random Vancomycin Level 8.6 Test 08/30/16 07:00 08/30/16 08:19 08/30/16 12:11 08/30/16 16:10 Blood Gas Specimen Source Blood arterial Arterial Blood Date Drawn 08/30/2016 8:40:11 AM Arterial Blood pH (Temp corrected) 7.653 *H Arterial Blood pCO2 (Temp correct) 24.1 L Arterial Blood pO2 (Temp corrected) 333.7 H Arterial Blood HCO3 26.1 H Arterial Blood Base Excess 5.7 H Arterial Blood Oxygen Saturation 99.5 Sebastien Test ACCEPTAB Arterial Blood Gas Puncture Site Right Brachial Arterial Blood Carboxyhemoglobin 0.2 Arterial Blood Methemoglobin 0.7 Blood Gas A-a O2 Differential 175.5 H Oxyhemoglobin Percent 98.6 Total Hemoglobin 8.9 L Blood Gas Temperature 37.0 Blood Gas Respiration Rate 24.0 Blood Gas Actual Respiration Rate 28 Blood Gas Modality VENT - AC FiO2 75.0 Blood Gas Tidal Volume 550.0 Blood Gas Low PEEP Setting 10.0 Blood Gas Critical Value Read Back CHARLINE BAEZA Blood Gas Notified Whom MIKE ROJAS Blood Gas Notified Time 08/30/2016 8:54:22 AM Bedside Glucose 122 105 Potassium Level 3.1 L Medications Medications Current Medications Acetaminophen (Tylenol Tab) 650 mg Q6H PRN PO PAIN AND OR ELEVATED TEMP; Start 08/27/16 at 23:00 Insulin Glargine (Lantus) 10 unit QAM SC Last administered on 08/30/16 10:27; Admin Dose 10 UNIT; Start 08/28/16 at 09:00 Diagnostic Test (Pha) (Accu-Chek) 1 ea 02 XX ; Start 08/28/16 at 02:00 Ondansetron HCl (Zofran Inj) 4 mg Q6H PRN IV NAUSEA AND/OR VOMITING; Start at 23:00 Miscellaneous Information 1 ea NOTE XX ; Start 08/27/16 at 23:00 Glucose (Glutose) 15 gm Q15M PRN PO DECREASED GLUCOSE; Start 08/27/16 at 23:00 Glucose (Glutose) 22.5 gm Q15M PRN PO DECREASED GLUCOSE; Start 08/27/16 at 23: 00 Dextrose (D50w Syringe) 25 ml Q15M PRN IV DECREASED GLUCOSE Last administered on 08/30/16 06:26; Admin Dose 25 ML; Start 08/27/16 at 23:00 Dextrose (D50w Syringe) 50 ml Q15M PRN IV DECREASED GLUCOSE; Start 08/27/16 at 23:00 Glucagon (Glucagen) 1 mg Q15M PRN IM DECREASED GLUCOSE; Start 08/27/16 at 23:00 Glucose (Glutose) 15 gm Q15M PRN BUCCAL DECREASED GLUCOSE; Start 08/27/16 at 23 :00 Carvedilol (Coreg) 3.125 mg BID PO Last administered on 08/29/16 09:54; Admin Dose 3.125 MG; Start 08/28/16 at 09:00; Status Future Hold Isosorbide Dinitrate (Isordil) 10 mg TID PO Last administered on 08/29/16 09:54 ; Admin Dose 10 MG; Start 08/28/16 at 09:00; Status Future Hold Sucralfate (Carafate) 1 gm QID PO Last administered on 08/30/16 10:22; Admin Dose 1 GM; Start 08/28/16 at 09:00 Amiodarone HCl (Cordarone) 200 mg DAILY PO Last administered on 08/29/16 09:53 ; Admin Dose 200 MG; Start 08/29/16 at 09:00; Status Future Hold Hydralazine HCl (Apresoline) 10 mg Q8 PO Last administered on 08/29/16 05:52; Admin Dose 10 MG; Start 08/28/16 at 22:00; Status Future Hold Metolazone 5 mg 5 mg DAILY PO Last administered on 08/30/16 10:22; Admin Dose 5 MG; Start 08/29/16 at 09:00 Fentanyl 100 ml @ 2.5 mls/hr TITRATE IV Last administered on 08/30/16 11:38; Admin Dose 2.5 MLS/HR; Start 08/29/16 at 18:30 Norepinephrine 250 ml @ 1.875 mls/ hr TITRATE IV Last administered on 18:27; Admin Dose 18.75 MLS/HR; Start 08/29/16 at 18:30 Imipenem/ Cilastatin Sodium 100 ml @ 100 mls/hr Q12 IVPB Last administered on 08/30/16 10:23; Admin Dose 100 MLS/HR; Start 08/29/16 at 21:00 Norepinephrine 16 mg/Dextrose 500 ml @ 1.87 mls/hr TITRATE IV Last administered on 08/30/16 05:49; Admin Dose 7.5 MLS/HR; Start 08/30/16 at 01:30 Vancomycin HCl (Vancocin) 250 ml @ 125 mls/hr 10 IVPB Last administered on 08/30 10:35; Admin Dose 125 MLS/HR; Start 08/30/16 at 10:00; Stop 08/30/16 at 23: 00 MURIEL EWING Aug 30, 2016 17:07
[2016-08-31] VITALS (96 sets, daily range): BP systolic 87–140; BP diastolic 38–67; PULSE 60–70; RESP 7–26
[2016-08-31] MEDS: ACCU-CHEK XX SCH (02:00)
[2016-08-31] MEDS: FENTAnyl (DRIP) 1000 mcg/100mL 100 ML IV SCH (02:22)
[2016-08-31 04:45] LABS: ADD SCAN DIFF NO
[2016-08-31 04:49] LABS: ABNORMAL IP MESSAGE 1; BASOPHILS % 0.1 % (0.0-2.0); EOSINOPHILS % 0.3 % (0.0-7.0); HEMATOCRIT 26.9 % (42.0-52.0); HEMOGLOBIN 8.2 g/dl (14.0-18.0); LYMPHOCYTES # 0.6 10^3/ul (0.8-2.9); LYMPHOCYTES % 7.8 % (15.0-51.0); MEAN CORPUSCULAR HEMOGLOBIN 26.1 pg (29.0-33.0); MEAN CORPUSCULAR HGB CONC 30.5 g/dl (32.0-37.0); MEAN CORPUSCULAR VOLUME 85.7 fl (82.0-101.0); MEAN PLATELET VOLUME 9.8 fl (7.4-10.4); MONOCYTE # 0.6 10^3/ul (0.3-0.9); MONOCYTES % 7.7 % (0.0-11.0); NEUTROPHIL # 6.3 10^3/ul (1.6-7.5); NEUTROPHILS % 83.4 % (39.0-77.0); NUCLEATED RED BLOOD CELLS # 0.3 10^3/ul (0.0-0.0); NUCLEATED RED BLOOD CELLS% 3.3 /100WBC (0.0-0.0); PLATELET COUNT 171 10^3/UL (140-415); RED BLOOD COUNT 3.14 10^6/ul (4.70-6.10); RED CELL DISTRIBUTION WIDTH 25.1 % (11.5-14.5); WHITE BLOOD COUNT 7.5 10^3/ul (4.8-10.8)
[2016-08-31 05:13] LABS: CREATININE 1.73 mg/dl (0.61-1.24)
[2016-08-31 05:14] LABS: CALCIUM 9.2 mg/dl (8.4-10.2)
[2016-08-31 05:22] LABS: POTASSIUM 2.7 mmol/L (3.5-5.1)
[2016-08-31] MEDS: INSULIN ASPART [NOVOLOG] 3 ML PEN SC SCH ×4 (07:35→21:00)
[2016-08-31 08:06] LABS: AADO2 Arterial 47.8 mmHg (7.0-24.0); Allen Test ACCEPTAB; Arterial Base Excess 8.1 mmol/L (-3.0-3); Arterial COHb 0.6 % (0.0-3.0); Arterial Fraction of Oxyhgb 96.9 % (93.0-99.0); Arterial HCO3 30.9 mmol/L (22.0-26.0); Arterial MetHb 0.6 % (0.0-1.5); Arterial Total Hemglobin 9.1 g/dl (12.0-18.0); MODE VENT - AC
[2016-08-31] MEDS: POTASSIUM CHLORIDE 250 ML IVPB SCH ×2 (08:08→10:00)
--- NOTE | 2016-08-31 08:16 | RADRPT ---
PROCEDURE: XR Chest. CLINICAL INDICATION: Shortness of breath. TECHNIQUE: Single frontal view. COMPARISON: 08/30/2016. FINDINGS: The endotracheal tube, nasogastric tube, right internal jugular vein temporary dialysis catheter, an d left-sided single lead permanent pacemaker remain in satisfactory position. The heart is enlarged . Pulmonary edema is unchanged. There is mild atelectasis at the lung bases. There are small bilateral pleural effusions. There is no pneumothorax. IMPRESSION: 1. No change from 08/30/2016. RPTAT: QQ .Eugenio Ruano MD, MD Date Time Electronically viewed and signed by .Eugenio Ruano MD, MD on 08/31/2016 08:16 .R/
[2016-08-31] MEDS: IMIPENEM-CILAST 500MG IV (PMX) 100 ML IVPB SCH ×2 (08:43→21:26)
[2016-08-31] MEDS: SUCRALFATE 1 GM TAB PO SCH ×4 (08:45→21:26)
[2016-08-31] MEDS: METOLAZONE 5 MG TAB PO SCH (08:45)
[2016-08-31] MEDS: INSULIN GLARGINE [LANtus] 3 ML PEN SC SCH (08:58)
[2016-08-31] MEDS: PROPOFOL 100 ML IV SCH (09:50)
[2016-08-31] MEDS ORDERED: POTASSIUM CHLORIDE (SR) 20 MEQ TAB PO STA (10:33)
--- NOTE | 2016-08-31 11:17 | CONS ---
Date/Time of Note Date/Time of Note DATE: 08/31/16 TIME: 11:14 Assessment/Plan Assessment/Plan Additional Assessment/Plan Chest x-ray was reviewed from today which is showing endotracheal tube at an adequate level. Cardio megaly is present with improvement in bilateral pulmonary edema. Ventilator settings; AC of 14, tidal volume 450, PEEP of 5, 30% FiO2. Assessment recommendations; 1. Patient admitted for cardiomyopathy with CHF exacerbation leading to respiratory failure. 2. UTI. 3. Renal failure, on hemodialysis. 4. History of cardiac arrhythmia. 5. Underlying coronary artery disease. Continue current treatment. Patient's prognosis is poor. Family needs to decide about CODE STATUS. Consultation Date/Type/Reason Admit Date/Time Aug 27, 2016 at 21:25 Initial Consult Date Type of Consultation: Pulmonary/critical care 24 HR Interval Summary Free Text/Dictation Patient condition remains critical. Still requiring full ventilator support. Requiring low-dose Levophed for blood pressure maintenance. General exam; elderly male, orally intubated sedated currently in no distress. Exam/Review of Systems Vital Signs Vitals Vital Signs Date Time Temp Pulse Resp B/P Pulse Ox O2 Delivery O2 Flow Rate FiO2 08/31/16 09:30 60 18 98/42 100 Mechanical Ventilator 08/31/16 08:00 98.6 08/31/16 05:05 30 08/29/16 08:20 2.0 Intake and Output 08/30/16 08/30/16 08/31/16 15:00 23:00 07:00 Intake Total 485.25 ml 219.75 ml 67.66 ml Output Total 525 ml 1695 ml 1225 ml Balance -39.75 ml -1475.25 ml -1157.34 ml Exam HEENT exam is; supple neck, positive JVD. No lymphadenopathy. Midline trachea. Orally intubated. Patient is edentulous. Has bilateral cataracts. No neck masses. No thyromegaly. No neck bruits. Chest examination; diminished but clear breath sounds bilaterally. S1-S2 audible, no murmurs. Regular rhythm. There is a well-healed sternal scar. There is a pacemaker in the left chest wall. Abdomen exam is; soft, nondistended. No organomegaly. Bowel sounds audible. Extremity examination; trace peripheral edema. [employer] examination; patient is sedated. Results Result Diagram: 08/31/16 0400 08/31/16 0400 Results 24 hrs Laboratory Tests Test 08/30/16 12:11 08/30/16 16:10 08/30/16 18:24 08/30/16 20:51 Bedside Glucose 105 100 102 Potassium Level 3.1 L Test 08/31/16 04:00 08/31/16 07:00 08/31/16 08:12 White Blood Count 7.5 Red Blood Count 3.14 L Hemoglobin 8.2 L Hematocrit 26.9 L Mean Corpuscular Volume 85.7 Mean Corpuscular Hemoglobin 26.1 L Mean Corpuscular Hemoglobin Concent 30.5 L Red Cell Distribution Width 25.1 H Platelet Count 171 Mean Platelet Volume 9.8 Neutrophils % 83.4 H Lymphocytes % 7.8 L Monocytes % 7.7 Eosinophils % 0.3 Basophils % 0.1 Nucleated Red Blood Cells % 3.3 H Neutrophils # 6.3 Lymphocytes # 0.6 L Monocytes # 0.6 Eosinophils # 0.0 Basophils # 0.0 Nucleated Red Blood Cells # 0.3 H Sodium Level 141 Potassium Level 2.7 *L Chloride Level 101 Carbon Dioxide Level 30 Anion Gap 13 Blood Urea Nitrogen 48 H Creatinine 1.73 H Glucose Level 79 Lactic Acid Level 1.5 Calcium Level 9.2 Blood Gas Specimen Source Blood arterial Arterial Blood Date Drawn 08/31/2016 7:17:49 AM Arterial Blood pH (Temp corrected) 7.555 *H Arterial Blood pCO2 (Temp correct) 35.7 Arterial Blood pO2 (Temp corrected) 124.2 H Arterial Blood HCO3 30.9 H Arterial Blood Base Excess 8.1 H Arterial Blood Oxygen Saturation 98.1 Sebastien Test ACCEPTAB Arterial Blood Gas Puncture Site Right Radial Arterial Blood Carboxyhemoglobin 0.6 Arterial Blood Methemoglobin 0.6 Blood Gas A-a O2 Differential 47.8 H Oxyhemoglobin Percent 96.9 Total Hemoglobin 9.1 L Blood Gas Temperature 37.0 Blood Gas Respiration Rate 14.0 Blood Gas Actual Respiration Rate 16 Blood Gas Modality VENT - AC FiO2 30.0 Blood Gas Tidal Volume 450.0 Blood Gas Low PEEP Setting 5.0 Blood Gas Critical Value Read Back Lena GERMAN RN Blood Gas Notified Whom ANDRE Blood Gas Notified Time 08/31/2016 8:06:21 AM Bedside Glucose 90 Medications Medications Current Medications Acetaminophen (Tylenol Tab) 650 mg Q6H PRN PO PAIN AND OR ELEVATED TEMP; Start 08/27/16 at 23:00 Insulin Glargine (Lantus) 10 unit QAM SC Last administered on 08/31/16 08:58; Admin Dose 10 UNIT; Start 08/28/16 at 09:00 Diagnostic Test (Pha) (Accu-Chek) 1 ea 02 XX ; Start 08/28/16 at 02:00 Ondansetron HCl (Zofran Inj) 4 mg Q6H PRN IV NAUSEA AND/OR VOMITING; Start at 23:00 Miscellaneous Information 1 ea NOTE XX ; Start 08/27/16 at 23:00 Glucose (Glutose) 15 gm Q15M PRN PO DECREASED GLUCOSE; Start 08/27/16 at 23:00 Glucose (Glutose) 22.5 gm Q15M PRN PO DECREASED GLUCOSE; Start 08/27/16 at 23: 00 Dextrose (D50w Syringe) 25 ml Q15M PRN IV DECREASED GLUCOSE Last administered on 08/30/16 06:26; Admin Dose 25 ML; Start 08/27/16 at 23:00 Dextrose (D50w Syringe) 50 ml Q15M PRN IV DECREASED GLUCOSE; Start 08/27/16 at 23:00 Glucagon (Glucagen) 1 mg Q15M PRN IM DECREASED GLUCOSE; Start 08/27/16 at 23:00 Glucose (Glutose) 15 gm Q15M PRN BUCCAL DECREASED GLUCOSE; Start 08/27/16 at 23 :00 Carvedilol (Coreg) 3.125 mg BID PO Last administered on 08/29/16 09:54; Admin Dose 3.125 MG; Start 08/28/16 at 09:00; Status Future Hold Isosorbide Dinitrate (Isordil) 10 mg TID PO Last administered on 08/29/16 09:54 ; Admin Dose 10 MG; Start 08/28/16 at 09:00; Status Future Hold Sucralfate (Carafate) 1 gm QID PO Last administered on 08/31/16 08:45; Admin Dose 1 GM; Start 08/28/16 at 09:00 Amiodarone HCl (Cordarone) 200 mg DAILY PO Last administered on 08/29/16 09:53 ; Admin Dose 200 MG; Start 08/29/16 at 09:00; Status Future Hold Hydralazine HCl (Apresoline) 10 mg Q8 PO Last administered on 08/29/16 05:52; Admin Dose 10 MG; Start 08/28/16 at 22:00; Status Future Hold Metolazone 5 mg 5 mg DAILY PO Last administered on 08/31/16 08:45; Admin Dose 5 MG; Start 08/29/16 at 09:00 Imipenem/ Cilastatin Sodium 100 ml @ 100 mls/hr Q12 IVPB Last administered on 08/31/16 08:43; Admin Dose 100 MLS/HR; Start 08/29/16 at 21:00 Norepinephrine 16 mg/Dextrose 500 ml @ 1.87 mls/hr TITRATE IV Last administered on 08/30/16 05:49; Admin Dose 7.5 MLS/HR; Start 08/30/16 at 01:30 Potassium Chloride 250 ml @ 62.5 mls/hr Q4H IVPB Last administered on 08:08; Admin Dose 62.5 MLS/HR; Start 08/31/16 at 06:00; Stop 08/31/16 at 13: 59 Propofol (Diprivan) 100 ml @ 2.136 mls/ hr Q12H IV Last administered on 09:50; Admin Dose 2.136 MLS/HR; Start 08/31/16 at 09:00 Mupirocin (Bactroban) 1 applic BID TOP ; Start 08/31/16 at 11:00; Stop 09/07/16 at 10:59 ADAMARIS RAMIREZ Aug 31, 2016 11:17
--- NOTE | 2016-08-31 11:59 | PN ---
DATE: 08/31/2016 SUBJECTIVE: The patient remains intubated and sedated. Remains also on low-dose propofol and is se dated on fentanyl. PHYSICAL EXAMINATION: VITAL SIGNS: Temperature 99.2, pulse is 60, respirations 15, blood pressure 99/42, saturations 100% . The patient remains on mechanical ventilator with an FIO2 of 30%. GENERAL: The patient opens his eye is to stimulation, but is not following commands at this time. HEENT: Head is normocephalic with equal, round, and reactive pupils. Mucous membranes cannot be as sessed. The patient remains endotracheally intubated. NECK: Supple. CHEST: With clear breath sounds, bilaterally diminished in the bases. CARDIOVASCULAR: S1 and S2, without added sounds or murmurs. ABDOMEN: Mildly distended with normoactive bowel sounds. NG tube in place. EXTREMITIES: There is no lower extremity edema. LABORATORY VALUES: Today his hemoglobin is 8.2 and he continues to have hypochromia and his platele t count is better at 171. On his chemistry, his potassium is low at 2.7, his creatinine is 1.73, wh ich is down from 1.96. Last hemodialysis was on Wednesday I was told. Lactic acid is normal. Calci um is normal. Point of care glucose 90. The patient is on 10 units of Lantus. Coagulation profile : His last INR on the was 3.03. Urinalysis 08/27/2016 was suggestive of a urinary tract infect ion with urine culture growing out E coli. His MRSA second screen is actually positive in the naris . MEDICATIONS: 1. Antibiotics, vancomycin, imipenem. 2. Pressors, Levophed. 3. Others, Lantus 10 units, NovoLog sliding scale, Carafate 1 g q.i.d. 4. Diuretics, metolazone, Zaroxolyn 5 mg daily. 5. He is status post Bumex drip. IMAGING: Chest x-ray today showed evidence of ET tube, nasogastric tube, right IJ dialysis catheter , and left-sided pacemaker, cardiomegaly, pulmonary edema, small bilateral pleural effusions, no pne umothorax. ASSESSMENT: An 81-year-old male with the following medical problems: 1. Severe sepsis with lactic acidosis secondary to #2. 2. Urinary tract infection. 3. 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 4. Acute respiratory failure, now fully ventilator dependent. 5. Congestive heart failure and chronic kidney disease causing volume overload causing respiratory failure. 6. Diabetes mellitus type 2. 7. Paroxysmal atrial fibrillation. Coronary artery disease status post coronary artery bypass samuel t. 8. Chronic liver cirrhosis with coagulopathy. 9. Ischemic cardiomyopathy. Last known EF of 25%, status post automatic implantable cardioverter/d efibrillator. 10. 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 11. Mild hyperbilirubinemia with transaminitis secondary to chronic cirrhosis. 12. Methicillin-resistant Staphylococcus aureus, nares. PLAN: 1. Continue ICU care and monitoring. 2. Continue ventilator management and support. 3. Continue hemodialysis per renal. The patient needs continued volume removal. 4. Continue broad-spectrum antibiotics. 5. Start Bactroban for MRSA nares. 6. Switch fentanyl to propofol. 7. Continue to wean off pressors. 8. Commence tube feedings. PROPHYLAXIS: SCDs only for now as the patient is still coagulopathic. The patient is also on Caraf ate. Will add a PPI as well (the patent was on Eliquis prior to admission). Dictated By: BOLA SOLO MD, BA/SHAHANA Conf#: [id number] DID#: [id number]
--- NOTE | 2016-08-31 12:12 | CONS ---
Date/Time of Note Date/Time of Note DATE: 08/31/16 TIME: 12:06 Assessment/Plan Assessment/Plan Chief Complaint/Hosp Course IMp: 1.CHF-systolic acute on chronic 2.Hypotension-on Levo 3.REnal failurwe s/p HD 4.Cardiomyopathy with low EF 5.AICD 6.H/O cad s/p cabg 7.PAF 8.Coagulopathy Recc: -Tele -Continue abx's and f/'u cx data -HD for volume removal -Wean pressors as tolerated -Holding eliquis in the setting of coagulopathy Problems: Consultation Date/Type/Reason Admit Date/Time Aug 27, 2016 at 21:25 Initial Consult Date 08/28/2016 Type of Consultation: Cardiology Reason for Consultation CHF/cardiomyopathy Referring Provider: BOLA SOLO Exam/Review of Systems Vital Signs Vitals Vital Signs Date Time Temp Pulse Resp B/P Pulse Ox O2 Delivery O2 Flow Rate FiO2 08/31/16 11:15 60 22 95/41 100 Mechanical Ventilator 08/31/16 08:00 98.6 08/31/16 05:05 30 08/29/16 08:20 2.0 Intake and Output 08/30/16 08/30/16 08/31/16 15:00 23:00 07:00 Intake Total 485.25 ml 219.75 ml 67.66 ml Output Total 525 ml 1695 ml 1425 ml Balance -39.75 ml -1475.25 ml -1357.34 ml Exam Review of Systems: CONSTITUTIONAL: No fevers, chills. PULMONARY: intubated CARDIOVASCULAR: No obvious chest pain/palpitations GASTROINTESTINAL: No nausea/vomiting. GENITOURINARY: No hematuria/dysuria. MUSCULOSKELETAL: No obvious myagias/arthalgias. PSYCHIATRIC: No documented depression. NEUROLOGIC: sedated Constitutional: other (intubated) Head: normocephalic ENMT: intubated Neck: jvd (9 cm water), supple Respiratory: diminished breath sounds (at bases/B) Cardiovascular: regular rate and rhythm Gastrointestinal: non-tender, soft Musculoskeletal: muscle tone (normal) Extremities: edema (none) Neurological: lethargic Results Result Diagram: 08/31/16 0400 08/31/16 0400 Results 24 hrs Laboratory Tests Test 08/30/16 12:11 08/30/16 16:10 08/30/16 18:24 08/30/16 20:51 Bedside Glucose 105 100 102 Potassium Level 3.1 L Test 08/31/16 04:00 08/31/16 07:00 08/31/16 08:12 White Blood Count 7.5 Red Blood Count 3.14 L Hemoglobin 8.2 L Hematocrit 26.9 L Mean Corpuscular Volume 85.7 Mean Corpuscular Hemoglobin 26.1 L Mean Corpuscular Hemoglobin Concent 30.5 L Red Cell Distribution Width 25.1 H Platelet Count 171 Mean Platelet Volume 9.8 Neutrophils % 83.4 H Lymphocytes % 7.8 L Monocytes % 7.7 Eosinophils % 0.3 Basophils % 0.1 Nucleated Red Blood Cells % 3.3 H Neutrophils # 6.3 Lymphocytes # 0.6 L Monocytes # 0.6 Eosinophils # 0.0 Basophils # 0.0 Nucleated Red Blood Cells # 0.3 H Sodium Level 141 Potassium Level 2.7 *L Chloride Level 101 Carbon Dioxide Level 30 Anion Gap 13 Blood Urea Nitrogen 48 H Creatinine 1.73 H Glucose Level 79 Lactic Acid Level 1.5 Calcium Level 9.2 Blood Gas Specimen Source Blood arterial Arterial Blood Date Drawn 08/31/2016 7:17:49 AM Arterial Blood pH (Temp corrected) 7.555 *H Arterial Blood pCO2 (Temp correct) 35.7 Arterial Blood pO2 (Temp corrected) 124.2 H Arterial Blood HCO3 30.9 H Arterial Blood Base Excess 8.1 H Arterial Blood Oxygen Saturation 98.1 Sebastien Test ACCEPTAB Arterial Blood Gas Puncture Site Right Radial Arterial Blood Carboxyhemoglobin 0.6 Arterial Blood Methemoglobin 0.6 Blood Gas A-a O2 Differential 47.8 H Oxyhemoglobin Percent 96.9 Total Hemoglobin 9.1 L Blood Gas Temperature 37.0 Blood Gas Respiration Rate 14.0 Blood Gas Actual Respiration Rate 16 Blood Gas Modality VENT - AC FiO2 30.0 Blood Gas Tidal Volume 450.0 Blood Gas Low PEEP Setting 5.0 Blood Gas Critical Value Read Back Lena GERMAN RN Blood Gas Notified Whom ANDRE Blood Gas Notified Time 08/31/2016 8:06:21 AM Bedside Glucose 90 Medications Medications Current Medications Acetaminophen (Tylenol Tab) 650 mg Q6H PRN PO PAIN AND OR ELEVATED TEMP; Start 08/27/16 at 23:00 Insulin Glargine (Lantus) 10 unit QAM SC Last administered on 08/31/16 08:58; Admin Dose 10 UNIT; Start 08/28/16 at 09:00 Diagnostic Test (Pha) (Accu-Chek) 1 ea 02 XX ; Start 08/28/16 at 02:00 Ondansetron HCl (Zofran Inj) 4 mg Q6H PRN IV NAUSEA AND/OR VOMITING; Start at 23:00 Miscellaneous Information 1 ea NOTE XX ; Start 08/27/16 at 23:00 Glucose (Glutose) 15 gm Q15M PRN PO DECREASED GLUCOSE; Start 08/27/16 at 23:00 Glucose (Glutose) 22.5 gm Q15M PRN PO DECREASED GLUCOSE; Start 08/27/16 at 23: 00 Dextrose (D50w Syringe) 25 ml Q15M PRN IV DECREASED GLUCOSE Last administered on 08/30/16 06:26; Admin Dose 25 ML; Start 08/27/16 at 23:00 Dextrose (D50w Syringe) 50 ml Q15M PRN IV DECREASED GLUCOSE; Start 08/27/16 at 23:00 Glucagon (Glucagen) 1 mg Q15M PRN IM DECREASED GLUCOSE; Start 08/27/16 at 23:00 Glucose (Glutose) 15 gm Q15M PRN BUCCAL DECREASED GLUCOSE; Start 08/27/16 at 23 :00 Carvedilol (Coreg) 3.125 mg BID PO Last administered on 08/29/16 09:54; Admin Dose 3.125 MG; Start 08/28/16 at 09:00; Status Future Hold Isosorbide Dinitrate (Isordil) 10 mg TID PO Last administered on 08/29/16 09:54 ; Admin Dose 10 MG; Start 08/28/16 at 09:00; Status Future Hold Sucralfate (Carafate) 1 gm QID PO Last administered on 08/31/16 08:45; Admin Dose 1 GM; Start 08/28/16 at 09:00 Amiodarone HCl (Cordarone) 200 mg DAILY PO Last administered on 08/29/16 09:53 ; Admin Dose 200 MG; Start 08/29/16 at 09:00; Status Future Hold Hydralazine HCl (Apresoline) 10 mg Q8 PO Last administered on 08/29/16 05:52; Admin Dose 10 MG; Start 08/28/16 at 22:00; Status Future Hold Metolazone 5 mg 5 mg DAILY PO Last administered on 08/31/16 08:45; Admin Dose 5 MG; Start 08/29/16 at 09:00 Imipenem/ Cilastatin Sodium 100 ml @ 100 mls/hr Q12 IVPB Last administered on 08/31/16 08:43; Admin Dose 100 MLS/HR; Start 08/29/16 at 21:00 Norepinephrine 16 mg/Dextrose 500 ml @ 1.87 mls/hr TITRATE IV Last administered on 08/30/16 05:49; Admin Dose 7.5 MLS/HR; Start 08/30/16 at 01:30 Potassium Chloride 250 ml @ 62.5 mls/hr Q4H IVPB Last administered on 08:08; Admin Dose 62.5 MLS/HR; Start 08/31/16 at 06:00; Stop 08/31/16 at 13: 59 Propofol (Diprivan) 100 ml @ 2.136 mls/ hr Q12H IV Last administered on 09:50; Admin Dose 2.136 MLS/HR; Start 08/31/16 at 09:00 Mupirocin (Bactroban) 1 applic BID TOP ; Start 08/31/16 at 11:00; Stop 09/07/16 at 10:59 Miscellaneous Information (*Rx Drug Level Order Reminder*) 1 ONCE ONCE XX ; Start 09/01/16 at 05:00; Stop 09/01/16 at 05:01 POLI SAN Aug 31, 2016 12:11
[2016-08-31] MEDS: MUPIROCIN 2% 15 GM CR TOP SCH ×2 (12:37→21:26)
--- NOTE | 2016-08-31 14:33 | RADRPT ---
Echocardiogram Report Patient Name: IRON DUNAWAY Gender: Male Date: 1935 Study Date: 30-Aug-2016 Record Press Tender: JAD Location: I Ref. Physician: VENANCIO ENRIQUE Quality: Adequate Procedures: Transthoracic echocardiogram with complete 2D, M-Mode, and Doppler examination. Indications: Respiratory arrest, on ventilator. 2D/M Mode Doppler Measurement Value Normal Ranges Measurement Value Normal Ranges AoR Diam MM 3.8 cm AV Peak Blaise 1.7 m/sec LVIDd 2D 6.3 3.5 - 5.6 cm AV Peak PG 11.8 mmHg LVIDs 2D 4.8 2.1 - 4.1 cm AI Peak PG 36.0 mmHg LVPWd 2D 1.2 0.6 - 1.1 cm AI Peak Blaise 3.0 m/sec IVSd 2D 1.2 0.6 - 1.1 cm AI PHT 332.1 msec EDV 2D 200.4 cm3 LVOT Peak Blaise 1.0 m/sec ESV 2D 111.9 cm3 LVOT Peak PG 3.9 mmHg LA Dimen 2D 4.1 2.3 - 4.0 cm TR Peak Blaise 3.3 m/sec TR Peak PG 42.5 mmHg PV Peak Blaise 0.9 m/sec PV Peak PG 3.0 mmHg RVSP 45.5 mmHg Findings Left Ventricle: Mild concentric left ventricular hypertrophy. Mild enlargement of left ventricle cavity. Moderate left ventricular systolic dysfunction. Ejection fraction is visually estimated at 40 %. Tissue Doppler/Mitral Doppler indices are indeterminate in this study due to the presence of aortic insufficiency. Multiple segmental wall motion abnormalities. Right Ventricle: Normal right ventricular size. Mild right ventricular hypokinesis of mid and apical germna. Linear artifact in right ventricle, patient history of AICD lead. Left Atrium: There is moderate enlargement of left atrium, appreciated best in apical images. Right Atrium: There is moderate to severe enlargement of right atrium. Atrial Septum: Normal atrial septum. Mitral Valve: Mild mitral annular calcification. Mild mitral valve regurgitation. Aortic Valve: Normal appearance of the aortic valve. No hemodynamically significant aortic stenosis by doppler. Mild to moderate aortic valve regurgitation. Tricuspid Valve: Normal appearance of the tricuspid valve. Estimated peak PA systolic pressure 46 mmHg. There is mild tricuspid regurgitation. Pulmonic Valve: Normal pulmonic valve appearance. There is mild pulmonic regurgitation. Pericardium: Normal pericardium with no significant pericardial effusion. Bilateral pleural effusion seen. Aorta: Sinus of valsalva4.00 cm. There is mild aortic root dilation with decreased excursion. IVC: Inferior vena cava without respiratory collapse, however, patient on ventilator. Pulmonary Artery: Normal pulmonary artery size. Conclusions 1.Mild concentric left ventricular hypertrophy. Moderate left ventricular systolic dysfunction. Ejection fraction is visually estimated at 40 %. Tissue Doppler/Mitral Doppler indices are indeterminate in this study due to the presence of aortic insufficiency. Multiple segmental wall motion abnormalities. 2.Normal right ventricular size. Mild right ventricular hypokinesis of mid and apical german. Linear artifact in right ventricle, AICD lead seen. 3.Mild mitral annular calcification. Mild mitral valve regurgitation. 4.Normal appearance of the aortic valve. No hemodynamically significant aortic stenosis by doppler. Mild to moderate aortic valve regurgitation. 5.Normal appearance of the tricuspid valve. Estimated peak PA systolic pressure 46 mmHg. There is mild tricuspid regurgitation. Moderate Pulmonary Hypertension. 6.Normal pericardium with no significant pericardial effusion. Electronically Signed By: Venancio Enrique 31-Aug-2016 14:33:01 -0700 Patient Name: IRON DUNAWAY Study Date: 30-Aug-2016 [id number]
--- NOTE | 2016-08-31 15:02 | PN ---
DATE: 08/31/2016 SUBJECTIVE: No acute events. The patient is intubated, on pressors. He is more awake and follows commands. He is in no distress. VITAL SIGNS: Temperature 98.6, pulse 60, respirations 22, blood pressure 95/41, saturation 100 on v ent. WBC 7.5, H and H 8.2 and 26.9, platelets 171, neutrophils 83.4, BUN 48, creatinine 1.73. INDWELLINGS: Endotracheal tube, NG tube, right IJ Fidel, Gan. PHYSICAL EXAMINATION: GENERAL: This is a fragile, elderly man who is intubated, in no distress. HEENT: Head atraumatic, normocephalic. Sclerae anicteric. Buccal mucosa dry. NECK: Supple, trachea midline. CHEST: Rise symmetrical. Breath sounds diminished to bases. HEART: S1, S2. ABDOMEN: Soft. Patient grimacing with palpation of his abdomen, bowel tones present. EXTREMITIES: Without cyanosis. SKIN: Positive for anasarca. ASSESSMENT: 1. Acute respiratory failure secondary to fluid overload, rule out pneumonia. 2. Shock, possibly multifactorial. 3. Urinary tract infection. 4. Acute on chronic kidney disease. 5. Coronary artery disease with history of coronary artery bypass graft. 6. Ischemic cardiomyopathy. PLAN: The patient remains hemodynamically unstable, covered with broad spectrum antibiotics meropen em, Imipenem and vancomycin. He was started on hemodialysis. Chest x-ray today unchanged. Dictated By: ADA MICHELLE SUPERVISOR [employer] for [employer]HANA Conf#: [id number] DID#: [id number]
--- NOTE | 2016-08-31 19:05 | CONS ---
Date/Time of Note Date/Time of Note DATE: 08/31/16 TIME: 19:03 Assessment/Plan Assessment/Plan Chief Complaint/Hosp Course SYSTOLIC HEART FAILURE JAZLYN ON CKD LOW EF ASHD DM HX CAD AICD PLACEMENT ANASASCA PLAN hd kcl Problems: Consultation Date/Type/Reason Admit Date/Time Aug 27, 2016 at 21:25 Initial Consult Date s/p hd on vent awake Type of Consultation: renal Referring Provider: BOLA SOLO Exam/Review of Systems Vital Signs Vitals Vital Signs Date Time Temp Pulse Resp B/P Pulse Ox O2 Delivery O2 Flow Rate FiO2 08/31/16 18:00 60 26 91/39 100 Mechanical Ventilator 08/31/16 17:35 30 08/31/16 16:00 97.9 08/29/16 08:20 2.0 Intake and Output 08/30/16 08/30/16 08/31/16 15:00 23:00 07:00 Intake Total 485.25 ml 219.75 ml 67.66 ml Output Total 525 ml 1695 ml 1425 ml Balance -39.75 ml -1475.25 ml -1357.34 ml Exam Respiratory: diminished breath sounds Cardiovascular: regular rate and rhythm Gastrointestinal: bowel sounds (+), soft Extremities: edema (dec) Results Result Diagram: 08/31/16 0400 08/31/16 0400 Results 24 hrs Laboratory Tests Test 08/30/16 20:51 08/31/16 04:00 08/31/16 07:00 08/31/16 08:12 Bedside Glucose 102 90 White Blood Count 7.5 Red Blood Count 3.14 L Hemoglobin 8.2 L Hematocrit 26.9 L Mean Corpuscular Volume 85.7 Mean Corpuscular Hemoglobin 26.1 L Mean Corpuscular Hemoglobin Concent 30.5 L Red Cell Distribution Width 25.1 H Platelet Count 171 Mean Platelet Volume 9.8 Neutrophils % 83.4 H Lymphocytes % 7.8 L Monocytes % 7.7 Eosinophils % 0.3 Basophils % 0.1 Nucleated Red Blood Cells % 3.3 H Neutrophils # 6.3 Lymphocytes # 0.6 L Monocytes # 0.6 Eosinophils # 0.0 Basophils # 0.0 Nucleated Red Blood Cells # 0.3 H Sodium Level 141 Potassium Level 2.7 *L Chloride Level 101 Carbon Dioxide Level 30 Anion Gap 13 Blood Urea Nitrogen 48 H Creatinine 1.73 H Glucose Level 79 Lactic Acid Level 1.5 Calcium Level 9.2 Blood Gas Specimen Source Blood arterial Arterial Blood Date Drawn 08/31/2016 7:17:49 AM Arterial Blood pH (Temp corrected) 7.555 *H Arterial Blood pCO2 (Temp correct) 35.7 Arterial Blood pO2 (Temp corrected) 124.2 H Arterial Blood HCO3 30.9 H Arterial Blood Base Excess 8.1 H Arterial Blood Oxygen Saturation 98.1 Sebastien Test ACCEPTAB Arterial Blood Gas Puncture Site Right Radial Arterial Blood Carboxyhemoglobin 0.6 Arterial Blood Methemoglobin 0.6 Blood Gas A-a O2 Differential 47.8 H Oxyhemoglobin Percent 96.9 Total Hemoglobin 9.1 L Blood Gas Temperature 37.0 Blood Gas Respiration Rate 14.0 Blood Gas Actual Respiration Rate 16 Blood Gas Modality VENT - AC FiO2 30.0 Blood Gas Tidal Volume 450.0 Blood Gas Low PEEP Setting 5.0 Blood Gas Critical Value Read Back M MAXI OLIVIER Blood Gas Notified Whom JLD Blood Gas Notified Time 08/31/2016 8:06:21 AM Test 08/31/16 12:48 08/31/16 17:51 Bedside Glucose 75 92 Medications Medications Current Medications Acetaminophen (Tylenol Tab) 650 mg Q6H PRN PO PAIN AND OR ELEVATED TEMP; Start 08/27/16 at 23:00 Insulin Glargine (Lantus) 10 unit QAM SC Last administered on 08/31/16 08:58; Admin Dose 10 UNIT; Start 08/28/16 at 09:00 Diagnostic Test (Pha) (Accu-Chek) 1 ea 02 XX ; Start 08/28/16 at 02:00 Ondansetron HCl (Zofran Inj) 4 mg Q6H PRN IV NAUSEA AND/OR VOMITING; Start at 23:00 Miscellaneous Information 1 ea NOTE XX ; Start 08/27/16 at 23:00 Glucose (Glutose) 15 gm Q15M PRN PO DECREASED GLUCOSE; Start 08/27/16 at 23:00 Glucose (Glutose) 22.5 gm Q15M PRN PO DECREASED GLUCOSE; Start 08/27/16 at 23: 00 Dextrose (D50w Syringe) 25 ml Q15M PRN IV DECREASED GLUCOSE Last administered on 08/30/16 06:26; Admin Dose 25 ML; Start 08/27/16 at 23:00 Dextrose (D50w Syringe) 50 ml Q15M PRN IV DECREASED GLUCOSE; Start 08/27/16 at 23:00 Glucagon (Glucagen) 1 mg Q15M PRN IM DECREASED GLUCOSE; Start 08/27/16 at 23:00 Glucose (Glutose) 15 gm Q15M PRN BUCCAL DECREASED GLUCOSE; Start 08/27/16 at 23 :00 Carvedilol (Coreg) 3.125 mg BID PO Last administered on 08/29/16 09:54; Admin Dose 3.125 MG; Start 08/28/16 at 09:00; Status Future Hold Isosorbide Dinitrate (Isordil) 10 mg TID PO Last administered on 08/29/16 09:54 ; Admin Dose 10 MG; Start 08/28/16 at 09:00; Status Future Hold Sucralfate (Carafate) 1 gm QID PO Last administered on 08/31/16 17:53; Admin Dose 1 GM; Start 08/28/16 at 09:00 Amiodarone HCl (Cordarone) 200 mg DAILY PO Last administered on 08/29/16 09:53 ; Admin Dose 200 MG; Start 08/29/16 at 09:00; Status Future Hold Hydralazine HCl (Apresoline) 10 mg Q8 PO Last administered on 08/29/16 05:52; Admin Dose 10 MG; Start 08/28/16 at 22:00; Status Future Hold Metolazone 5 mg 5 mg DAILY PO Last administered on 08/31/16 08:45; Admin Dose 5 MG; Start 08/29/16 at 09:00 Imipenem/ Cilastatin Sodium 100 ml @ 100 mls/hr Q12 IVPB Last administered on 08/31/16 08:43; Admin Dose 100 MLS/HR; Start 08/29/16 at 21:00 Norepinephrine 16 mg/Dextrose 500 ml @ 1.87 mls/hr TITRATE IV Last administered on 08/30/16 05:49; Admin Dose 7.5 MLS/HR; Start 08/30/16 at 01:30 Propofol (Diprivan) 100 ml @ 2.136 mls/ hr Q12H IV Last administered on 09:50; Admin Dose 2.136 MLS/HR; Start 4/3/17 at 09:00 Mupirocin (Bactroban) 1 applic BID TOP Last administered on 08/31/16t 12:37; Admin Dose 1 APPLIC; Start 08/31/16 at 11:00; Stop 09/07/16 at 10:59 Miscellaneous Information (*Rx Drug Level Order Reminder*) 1 ONCE ONCE XX ; Start 09/01/16 at 05:00; Stop 09/01/16 at 05:01 YANIRA HART MD Aug 31, 2016 19:04
[2016-09-01] VITALS (81 sets, daily range): BP systolic 75–153; BP diastolic 35–66; PULSE 60–82; RESP 14–35
[2016-09-01] MEDS ORDERED: morphine 2 MG INJ ONE (01:10)
[2016-09-01] MEDS: morphine 2 MG INJ IV PRN ×2 (01:17→10:22)
[2016-09-01] MEDS: ACCU-CHEK XX SCH (02:00)
[2016-09-01] MEDS: PROPOFOL 100 ML IV SCH ×4 (03:30→22:25)
[2016-09-01 04:41] LABS: ADD SCAN DIFF NO
[2016-09-01 05:18] LABS: CALCIUM 9.1 mg/dl (8.4-10.2); CREATININE 1.09 mg/dl (0.61-1.24)
[2016-09-01 05:22] LABS: INR 1.99; PROTIME 22.8 Sec (12.2-14.2); PT RATIO 1.8
[2016-09-01 05:27] LABS: ABNORMAL IP MESSAGE 1; BASOPHILS % 0.1 % (0.0-2.0); EOSINOPHILS # 0.1 10^3/ul (0.0-0.5); HEMATOCRIT 29.1 % (42.0-52.0); HEMOGLOBIN 8.7 g/dl (14.0-18.0); LYMPHOCYTES # 0.7 10^3/ul (0.8-2.9); LYMPHOCYTES % 8.6 % (15.0-51.0); MEAN CORPUSCULAR HGB CONC 29.9 g/dl (32.0-37.0); MEAN CORPUSCULAR VOLUME 87.1 fl (82.0-101.0); MEAN PLATELET VOLUME 10.3 fl (7.4-10.4); MONOCYTE # 0.6 10^3/ul (0.3-0.9); MONOCYTES % 7.1 % (0.0-11.0); NEUTROPHIL # 6.9 10^3/ul (1.6-7.5); NUCLEATED RED BLOOD CELLS # 0.2 10^3/ul (0.0-0.0); NUCLEATED RED BLOOD CELLS% 2.5 /100WBC (0.0-0.0); PLATELET COUNT 143 10^3/UL (140-415); RED BLOOD COUNT 3.34 10^6/ul (4.70-6.10); RED CELL DISTRIBUTION WIDTH 25.6 % (11.5-14.5); WHITE BLOOD COUNT 8.4 10^3/ul (4.8-10.8)
[2016-09-01 05:34] LABS: POTASSIUM 2.7 mmol/L (3.5-5.1)
[2016-09-01] MEDS: INSULIN ASPART [NOVOLOG] 3 ML PEN SC SCH ×5 (07:35→20:29)
[2016-09-01 07:51] LABS: ALBUMIN 3.3 g/dl (3.3-4.9)
[2016-09-01] MEDS: POTASSIUM CHLORIDE 250 ML IVPB SCH ×2 (07:53→10:00)
[2016-09-01 07:54] LABS: BILIRUBIN,DIRECT 0.1 mg/dl (0.00-0.20); BILIRUBIN,INDIRECT 1.2 mg/dl (0-1.1); BILIRUBIN,TOTAL 1.3 mg/dl (0.2-1.3)
[2016-09-01 07:55] LABS: TOTAL PROTEIN 6.2 g/dl (6.1-8.1)
[2016-09-01] MEDS: SUCRALFATE 1 GM TAB PO SCH ×4 (08:02→20:27)
[2016-09-01] MEDS: METOLAZONE 5 MG TAB PO SCH (08:04)
[2016-09-01] MEDS: INSULIN GLARGINE [LANtus] 3 ML PEN SC SCH (08:12)
[2016-09-01] MEDS: IMIPENEM-CILAST 500MG IV (PMX) 100 ML IVPB SCH ×2 (08:18→20:27)
[2016-09-01] MEDS: MUPIROCIN 2% 15 GM CR TOP SCH ×2 (08:18→20:27)
--- NOTE | 2016-09-01 08:21 | CONS ---
Date/Time of Note Date/Time of Note DATE: 09/01/16 TIME: 08:19 Assessment/Plan Assessment/Plan Additional Assessment/Plan Ventilator settings; AC of 14, tidal volume 450, PEEP of 5, 30% FiO2. Patient is currently on propofol at 20 mics per kilo per minute and Levophed at 4 mics per minute. Assessment recommendations; 1. Patient admitted for respiratory failure due to flash pulmonary edema was successfully extubated transferred to floor with the patient had another episode requiring reintubation. 2. Underlying cardia myopathy. 3. Acute renal failure, on hemodialysis. 4. History of cardiac arrhythmia. 5. History of underlying coronary artery disease with history of bypass surgery. Continue current treatment. I did have a very lengthy discussion with the patient's son at bedside, options were given to him regarding tracheostomy versus extubation with the nature taking his course if the patient decompensates. The patient's son has opted for tracheostomy. I will consult the thoracic surgeon for the procedure. Consultation Date/Type/Reason Admit Date/Time Aug 27, 2016 at 21:25 Type of Consultation: Pulmonary/critical care Referring Provider: BOLA SOLO 24 HR Interval Summary Free Text/Dictation Patient condition remains critical. Still requiring full ventilator support. General exam; elderly male, orally intubated, sedated, currently in no distress. Exam/Review of Systems Vital Signs Vitals Vital Signs Date Time Temp Pulse Resp B/P Pulse Ox O2 Delivery O2 Flow Rate FiO2 09/01/16 07:30 30 09/01/16 07:00 60 15 105/43 100 Mechanical Ventilator 09/01/16 04:00 97.5 08/29/16 08:20 2.0 Intake and Output 08/31/16 08/31/16 09/01/16 15:00 23:00 07:00 Intake Total 474.255 ml 654.717 ml 481.778 ml Output Total 1010 ml 2360 ml 420 ml Balance -535.745 ml -1705.283 ml 61.778 ml Exam HEENT examination; supple neck, positive JVD. No lymphadenopathy. Midline trachea. Pupils are equal and reactive to light bilaterally. She is edentulous. No neck masses, no thyromegaly no neck bruits. Chest examination IA: Diminished but clear breath sound bilaterally. S1-S2 audible, no murmurs. Regular rhythm. There is a well-healed sternal scar. Abdomen examination; soft, nondistended. No organomegaly. Bowel sounds audible. Extremity numbness; no peripheral edema. Patient has multiple superficial ecchymosis involving all 4 extremities. Pulses 1+ bilaterally. There is no clubbing. [employer] examination; patient is sedated. Results Result Diagram: 09/01/16 0400 09/01/16 0400 Results 24 hrs Laboratory Tests Test 08/31/16 12:48 08/31/16 17:51 08/31/16 21:22 09/01/16 02:51 Bedside Glucose 75 92 81 101 Test 09/01/16 04:00 09/01/16 05:10 09/01/16 08:02 White Blood Count 8.4 Red Blood Count 3.34 L Hemoglobin 8.7 L Hematocrit 29.1 L Mean Corpuscular Volume 87.1 Mean Corpuscular Hemoglobin 26.0 L Mean Corpuscular Hemoglobin Concent 29.9 L Red Cell Distribution Width 25.6 H Platelet Count 143 Mean Platelet Volume 10.3 Neutrophils % 83.0 H Lymphocytes % 8.6 L Monocytes % 7.1 Eosinophils % 1.0 Basophils % 0.1 Nucleated Red Blood Cells % 2.5 H Neutrophils # 6.9 Lymphocytes # 0.7 L Monocytes # 0.6 Eosinophils # 0.1 Basophils # 0.0 Nucleated Red Blood Cells # 0.2 H Prothrombin Time 22.8 #H Prothrombin Time Ratio 1.8 INR International Normalized Ratio 1.99 Activated Partial Thromboplast Time 45.0 H Sodium Level 146 H Potassium Level 2.7 *L Chloride Level 99 Carbon Dioxide Level 34 H Anion Gap 16 Blood Urea Nitrogen 33 #H Creatinine 1.09 Glucose Level 100 Calcium Level 9.1 Total Bilirubin 1.3 Direct Bilirubin 0.10 # Indirect Bilirubin 1.2 H Aspartate Amino Transf (AST/SGOT) 103 H Alanine Aminotransferase (ALT/SGPT) 121 H Alkaline Phosphatase 129 H Total Protein 6.2 Albumin 3.3 Random Vancomycin Level 9.4 Bedside Glucose 130 Medications Medications Current Medications Acetaminophen (Tylenol Tab) 650 mg Q6H PRN PO PAIN AND OR ELEVATED TEMP; Start 08/27/16 at 23:00 Insulin Glargine (Lantus) 10 unit QAM SC Last administered on 09/01/16t 08:12; Admin Dose 10 UNIT; Start 08/28/16 at 09:00 Ondansetron HCl (Zofran Inj) 4 mg Q6H PRN IV NAUSEA AND/OR VOMITING; Start at 23:00 Miscellaneous Information 1 ea NOTE XX ; Start 08/27/16 at 23:00 Glucose (Glutose) 15 gm Q15M PRN PO DECREASED GLUCOSE; Start 08/27/16 at 23:00 Glucose (Glutose) 22.5 gm Q15M PRN PO DECREASED GLUCOSE; Start 08/27/16 at 23: 00 Dextrose (D50w Syringe) 25 ml Q15M PRN IV DECREASED GLUCOSE Last administered on 08/30/16 06:26; Admin Dose 25 ML; Start 08/27/16 at 23:00 Dextrose (D50w Syringe) 50 ml Q15M PRN IV DECREASED GLUCOSE; Start 08/27/16 at 23:00 Glucagon (Glucagen) 1 mg Q15M PRN IM DECREASED GLUCOSE; Start 08/27/16 at 23:00 Glucose (Glutose) 15 gm Q15M PRN BUCCAL DECREASED GLUCOSE; Start 08/27/16 at 23 :00 Carvedilol (Coreg) 3.125 mg BID PO Last administered on 08/29/16 09:54; Admin Dose 3.125 MG; Start 08/28/16 at 09:00; Status Future Hold Isosorbide Dinitrate (Isordil) 10 mg TID PO Last administered on 08/29/16 09:54 ; Admin Dose 10 MG; Start 08/28/16 at 09:00; Status Future Hold Sucralfate (Carafate) 1 gm QID PO Last administered on 09/01/16 08:02; Admin Dose 1 GM; Start 08/28/16 at 09:00 Amiodarone HCl (Cordarone) 200 mg DAILY PO Last administered on 08/29/16 09:53 ; Admin Dose 200 MG; Start 08/29/16 at 09:00; Status Future Hold Hydralazine HCl (Apresoline) 10 mg Q8 PO Last administered on 08/29/16 05:52; Admin Dose 10 MG; Start 08/28/16 at 22:00; Status Future Hold Metolazone 5 mg 5 mg DAILY PO Last administered on 08/31/16 08:45; Admin Dose 5 MG; Start 08/29/16 at 09:00 Imipenem/ Cilastatin Sodium 100 ml @ 100 mls/hr Q12 IVPB Last administered on 08/31/16 21:26; Admin Dose 100 MLS/HR; Start 08/29/16 at 21:00 Norepinephrine 16 mg/Dextrose 500 ml @ 1.87 mls/hr TITRATE IV Last administered on 08/30/16 05:49; Admin Dose 7.5 MLS/HR; Start 08/30/16 at 01:30 Propofol (Diprivan) 100 ml @ 2.136 mls/ hr Q12H IV Last administered on 03:30; Admin Dose 6.408 MLS/HR; Start 08/31/16 at 09:00 Mupirocin (Bactroban) 1 applic BID TOP Last administered on 08/31/16 21:26; Admin Dose 1 APPLIC; Start 08/31/16 at 11:00; Stop 09/07/16 at 10:59 Morphine Sulfate 2 mg 2 mg Q2H PRN IV PAIN Last administered on 09/01/16 01:17 ; Admin Dose 2 MG; Start 09/01/16 at 01:30 Potassium Chloride (KCl 40 MEQ/250 ML NS) 250 ml @ 62.5 mls/hr Q4H IVPB Last administered on 09/01/16 07:53; Admin Dose 62.5 MLS/HR; Start 09/01/16 at 06:00; Stop 09/01/16 at 13:59 Insulin Aspart (Novolog Insulin Pen) NOVOLOG *MODERATE* ALGORITHM Q4 SC ; Start 09/01/16 at 09:00 ADAMARIS RAMIREZ Sep 01, 2016 08:21
[2016-09-01] MEDS ORDERED: POTASSIUM CHLORIDE 250 ML IVPB SCH (09:00)
[2016-09-01] MEDS ORDERED: MAGNESIUM SULFATE 1 GM/D5W 100 ML IVPB ONE (09:00)
--- NOTE | 2016-09-01 09:14 | PN ---
Date/Time of Note Date/Time of Note DATE: 09/01/16 TIME: 08:36 Assessment/Plan VTE Prophylaxis VTE Prophylaxis Intervention: SCD's Lines/Catheters IV Catheter Type (from [facility]): Peripheral IV Urinary Cath still in place: Yes Reason Cath still needed: other (indicate) Assessment/Plan Assessment/Plan An 81-year-old male with the following medical problems: 1. Severe sepsis with lactic acidosis secondary to #2. 2. Urinary tract infection. 3. 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 4. Acute respiratory failure, now fully ventilator dependent. 5. Congestive heart failure and chronic kidney disease causing volume overload causing respiratory failure. 6. Diabetes mellitus type 2 : Good control 7. Paroxysmal atrial fibrillation. 8. Coronary artery disease status post coronary artery bypass graft. 9. Ischemic cardiomyopathy. Last known EF of 25%, status post automatic implantable cardioverter/defibrillator. 10. 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 11. Chronic liver cirrhosis with coagulopathy with Mild hyperbilirubinemia with transaminitis 12. Methicillin-resistant Staphylococcus aureus, nares. PLAN: 1. Continue ICU care and monitoring. 2. Continue ventilator management and support. 3. Continue hemodialysis per renal. The patient needs continued volume removal. 4. Continue broad-spectrum antibiotics. 5. Continue Bactroban for MRSA nares. 6. Continue to wean off pressors. 7. Commence tube feedings and titrate insulin therapy as indicated 8. Pulmonary is recommending trach, will notify CTS PROPHYLAXIS: SCDs only for now as the patient is still coagulopathic / PPI as well (the patent was on Eliquis prior to admission for Afib). CRITICAL CARE TIME: >35 mins of which more than half was spent at the bedside and during counselling Subjective 24 Hr Interval Summary Free Text/Dictation Patient seen and examined. more alert on propofol able to mouth a request for water. Intubated and requiring low dose pressor support. Subjective hx not possible: pt critical status Exam/Review of Systems Vital Signs Vitals Vital Signs Date Time Temp Pulse Resp B/P Pulse Ox O2 Delivery O2 Flow Rate FiO2 09/01/16 07:30 30 09/01/16 07:00 60 15 105/43 100 Mechanical Ventilator 09/01/16 04:00 97.5 08/29/16 08:20 2.0 Intake and Output 08/31/16 08/31/16 09/01/16 15:00 23:00 07:00 Intake Total 474.255 ml 654.717 ml 481.778 ml Output Total 1010 ml 2360 ml 420 ml Balance -535.745 ml -1705.283 ml 61.778 ml Exam GENERAL: The patient opens his eye is to stimulation, but is not following commands at this time. HEENT: Head is normocephalic with equal, round, and reactive pupils. Mucous membranes cannot be assessed. The patient remains endotracheally intubated. NECK: Supple. CHEST: With clear breath sounds, bilaterally diminished in the bases. CARDIOVASCULAR: S1 and S2, without added sounds or murmurs. ABDOMEN: Mildly distended with normoactive bowel sounds. NG tube in place. EXTREMITIES: There is no lower extremity edema. Results Result Diagram: 09/01/16 0400 09/01/16 0400 Results 24 hrs Laboratory Tests Test 08/31/16 12:48 08/31/16 17:51 08/31/16 21:22 09/01/16 02:51 Bedside Glucose 75 92 81 101 Test 09/01/16 04:00 09/01/16 05:10 09/01/16 08:02 White Blood Count 8.4 Red Blood Count 3.34 L Hemoglobin 8.7 L Hematocrit 29.1 L Mean Corpuscular Volume 87.1 Mean Corpuscular Hemoglobin 26.0 L Mean Corpuscular Hemoglobin Concent 29.9 L Red Cell Distribution Width 25.6 H Platelet Count 143 Mean Platelet Volume 10.3 Neutrophils % 83.0 H Lymphocytes % 8.6 L Monocytes % 7.1 Eosinophils % 1.0 Basophils % 0.1 Nucleated Red Blood Cells % 2.5 H Neutrophils # 6.9 Lymphocytes # 0.7 L Monocytes # 0.6 Eosinophils # 0.1 Basophils # 0.0 Nucleated Red Blood Cells # 0.2 H Prothrombin Time 22.8 #H Prothrombin Time Ratio 1.8 INR International Normalized Ratio 1.99 Activated Partial Thromboplast Time 45.0 H Sodium Level 146 H Potassium Level 2.7 *L Chloride Level 99 Carbon Dioxide Level 34 H Anion Gap 16 Blood Urea Nitrogen 33 #H Creatinine 1.09 Glucose Level 100 Calcium Level 9.1 Total Bilirubin 1.3 Direct Bilirubin 0.10 # Indirect Bilirubin 1.2 H Aspartate Amino Transf (AST/SGOT) 103 H Alanine Aminotransferase (ALT/SGPT) 121 H Alkaline Phosphatase 129 H Total Protein 6.2 Albumin 3.3 Random Vancomycin Level 9.4 Bedside Glucose 130 Medications Medications Current Medications Acetaminophen (Tylenol Tab) 650 mg Q6H PRN PO PAIN AND OR ELEVATED TEMP; Start 08/27/16 at 23:00 Insulin Glargine (Lantus) 10 unit QAM SC Last administered on 09/01/16 08:12; Admin Dose 10 UNIT; Start 08/28/16 at 09:00 Ondansetron HCl (Zofran Inj) 4 mg Q6H PRN IV NAUSEA AND/OR VOMITING; Start at 23:00 Miscellaneous Information 1 ea NOTE XX ; Start 08/27/16 at 23:00 Glucose (Glutose) 15 gm Q15M PRN PO DECREASED GLUCOSE; Start 08/27/16 at 23:00 Glucose (Glutose) 22.5 gm Q15M PRN PO DECREASED GLUCOSE; Start 08/27/16 at 23: 00 Dextrose (D50w Syringe) 25 ml Q15M PRN IV DECREASED GLUCOSE Last administered on 08/30/16 06:26; Admin Dose 25 ML; Start 08/27/16 at 23:00 Dextrose (D50w Syringe) 50 ml Q15M PRN IV DECREASED GLUCOSE; Start 08/27/16 at 23:00 Glucagon (Glucagen) 1 mg Q15M PRN IM DECREASED GLUCOSE; Start 08/27/16 at 23:00 Glucose (Glutose) 15 gm Q15M PRN BUCCAL DECREASED GLUCOSE; Start 08/27/16 at 23 :00 Carvedilol (Coreg) 3.125 mg BID PO Last administered on 08/29/16 09:54; Admin Dose 3.125 MG; Start 08/28/16 at 09:00; Status Future Hold Isosorbide Dinitrate (Isordil) 10 mg TID PO Last administered on 08/29/16 09:54 ; Admin Dose 10 MG; Start 08/28/16 at 09:00; Status Future Hold Sucralfate (Carafate) 1 gm QID PO Last administered on 09/01/16 08:02; Admin Dose 1 GM; Start 08/28/16 at 09:00 Amiodarone HCl (Cordarone) 200 mg DAILY PO Last administered on 08/29/16 09:53 ; Admin Dose 200 MG; Start 08/29/16 at 09:00; Status Future Hold Hydralazine HCl (Apresoline) 10 mg Q8 PO Last administered on 08/29/16 05:52; Admin Dose 10 MG; Start 08/28/16 at 22:00; Status Future Hold Metolazone 5 mg 5 mg DAILY PO Last administered on 08/31/16 08:45; Admin Dose 5 MG; Start 08/29/16 at 09:00 Imipenem/ Cilastatin Sodium 100 ml @ 100 mls/hr Q12 IVPB Last administered on 09/01/16 08:18; Admin Dose 100 MLS/HR; Start 08/29/16 at 21:00 Norepinephrine 16 mg/Dextrose 500 ml @ 1.87 mls/hr TITRATE IV Last administered on 08/30/16 05:49; Admin Dose 7.5 MLS/HR; Start 08/30/16 at 01:30 Propofol (Diprivan) 100 ml @ 2.136 mls/ hr Q12H IV Last administered on 03:30; Admin Dose 6.408 MLS/HR; Start 08/31/16 at 09:00 Mupirocin (Bactroban) 1 applic BID TOP Last administered on 09/01/16 08:18; Admin Dose 1 APPLIC; Start 08/31/16 at 11:00; Stop 09/07/16 at 10:59 Morphine Sulfate 2 mg 2 mg Q2H PRN IV PAIN Last administered on 09/01/16 01:17 ; Admin Dose 2 MG; Start 09/01/16 at 01:30 Potassium Chloride (KCl 40 MEQ/250 ML NS) 250 ml @ 62.5 mls/hr Q4H IVPB Last administered on 09/01/16 07:53; Admin Dose 62.5 MLS/HR; Start 09/01/16 at 06:00; Stop 09/01/16 at 13:59 Insulin Aspart (Novolog Insulin Pen) NOVOLOG *MODERATE* ALGORITHM Q4 SC ; Start 09/01/16 at 09:00 BOLA SOLO Sep 01, 2016 08:46
[2016-09-01] MEDS ORDERED: VANCOMYCIN 1.5 GM in SOD CHLORIDE 0.9% 250 ML IVPB SCH (10:30)
[2016-09-01] MEDS ORDERED: DIGOXIN 0.125 MG TAB GTB SCH (13:00)
[2016-09-01] MEDS ORDERED: DIGOXIN 0.05 MG/ML GTB SCH ×2 (13:00)
--- NOTE | 2016-09-01 13:18 | PN ---
DATE: 09/01/2016 SUBJECTIVE: No events overnight. The patient intubated and sedated, lying comfortably in bed. No fevers. Still on low dose pressors WBC 8.4, H and H 8.7 and 29.1, platelets 143, neutrophils 83. MICROBIOLOGY: Nares swab came back positive for MRSA. INDWELLINGS: Endotracheal tube, NG tube, Gan catheter, right IJ Fidel catheter. ANTIMICROBIALS: The patient is on: 1. IV vancomycin. 2. Topical Bactroban to nares. 3. Imipenem. PHYSICAL EXAMINATION: GENERAL: This is a fragile, elderly man who is lying comfortably in bed. HEENT: Head atraumatic, normocephalic. Sclerae anicteric. Buccal mucosa dry. NECK: Supple, trachea midline. CHEST: Rise symmetrical. Breath sounds diminished to bases. HEART: S1, S2. ABDOMEN: Soft, bowel sounds present. EXTREMITIES: Bilateral edema. ASSESSMENT: 1. Shock, multifactorial. 2. Acute respiratory failure secondary to fluid overload, possible pneumonia. 3. Escherichia coli urinary tract infection. 4. Methicillin-resistant Staphylococcus aureus nares colonization. 5. Acute on chronic kidney disease, hemodialysis dependent. 6. History of coronary artery bypass graft. 7. Nonischemic cardiomyopathy. PLAN: The patient remains unchanged, clinically stable. We will continue him on current antimicrob ials. Follow recommendations of consultants. Dictated By: ADA MICHELLE BRAND ADVISOR for [employer]/NTS Conf#: [id number] DID#: [id number]
--- NOTE | 2016-09-01 16:05 | CONS ---
Date/Time of Note Date/Time of Note DATE: 09/01/16 TIME: 16:00 Assessment/Plan Assessment/Plan Additional Assessment/Plan 1. Congestive heart failure exacerbation, systolic, acute on chronic. EF 25% by most recent echo-worsening. Minimally + troponin after cardiac arrest - will monitor clinically for now. STABLE OVERALL - con't MED rx. NO CP now - improved fluid status. BETTER. 2. Resp failure s/p intubation - pulmonary team follows. Still some SOB noted. Plan for tarach - OK to proceed as needed. 3. Hypotension/shock- BP improved now 3. History of coronary artery bypass graft surgery. NO CP- no intervention planned now. No intervention planned. 4. Abnormal electrocardiogram . MIldly postive trop after cardiac arrest 5. History of paroxysmal atrial fibrillation-on apixaban - in a . fib/paced. 6. Acute on chronic renal failure-Now on HD 8. Anemia, mild. 9. Coagulopathy secondary to apixaban- improving 10.Hematuria - H/H stable Consultation Date/Type/Reason Admit Date/Time Aug 27, 2016 at 21:25 Initial Consult Date Type of Consultation: Pulmonary/critical care Referring Provider: BOLA SOLO 24 HR Interval Summary Free Text/Dictation No acute change - still critically ill. Plan for trach when surgical team OK. Reasonable to proceed. Per lengthy discission, family aware. ROS: No fever, no chills, no nausea, no vomiting, no diarrhea/constipation No recent weight changes No chest pain, no PND, no orthopnea No dizziness, blurred vision No thirst, no heat or cold intolerance (per nurse) Exam/Review of Systems Vital Signs Vitals Vital Signs Date Time Temp Pulse Resp B/P Pulse Ox O2 Delivery O2 Flow Rate FiO2 09/01/16 14:00 60 14 103/44 100 Mechanical Ventilator 09/01/16 13:05 30 09/01/16 12:00 98.7 08/29/16 08:20 2.0 Intake and Output 08/31/16 08/31/16 09/01/16 15:00 23:00 07:00 Intake Total 474.255 ml 654.717 ml 481.778 ml Output Total 1010 ml 2360 ml 420 ml Balance -535.745 ml -1705.283 ml 61.778 ml Exam General: WN/WD/NAD, AOx 0 HEENT: Unicetric/atraumatic/EOMI (does not follow commands) - intubated NECK: JVD elevated, no thyromegaly Lymph: no lymphadenopathy HEART: regular with no S3, II/ systolic murmur at apex, pacer in place LUNGS: Coarse sounds ABD: soft, NT, ND, +BS : Intact Neuro: non focal SKIN: chronic changes EXT: trace edema Results Result Diagram: 09/01/16 0400 09/01/16 0400 Results 24 hrs Laboratory Tests Test 08/31/16 17:51 08/31/16 21:22 09/01/16 02:51 09/01/16 04:00 Bedside Glucose 92 81 101 White Blood Count 8.4 Red Blood Count 3.34 L Hemoglobin 8.7 L Hematocrit 29.1 L Mean Corpuscular Volume 87.1 Mean Corpuscular Hemoglobin 26.0 L Mean Corpuscular Hemoglobin Concent 29.9 L Red Cell Distribution Width 25.6 H Platelet Count 143 Mean Platelet Volume 10.3 Neutrophils % 83.0 H Lymphocytes % 8.6 L Monocytes % 7.1 Eosinophils % 1.0 Basophils % 0.1 Nucleated Red Blood Cells % 2.5 H Neutrophils # 6.9 Lymphocytes # 0.7 L Monocytes # 0.6 Eosinophils # 0.1 Basophils # 0.0 Nucleated Red Blood Cells # 0.2 H Prothrombin Time 22.8 #H Prothrombin Time Ratio 1.8 INR International Normalized Ratio 1.99 Activated Partial Thromboplast Time 45.0 H Sodium Level 146 H Potassium Level 2.7 *L Chloride Level 99 Carbon Dioxide Level 34 H Anion Gap 16 Blood Urea Nitrogen 33 #H Creatinine 1.09 Glucose Level 100 Calcium Level 9.1 Magnesium Level 1.6 L Total Bilirubin 1.3 Direct Bilirubin 0.10 # Indirect Bilirubin 1.2 H Aspartate Amino Transf (AST/SGOT) 103 H Alanine Aminotransferase (ALT/SGPT) 121 H Alkaline Phosphatase 129 H Total Protein 6.2 Albumin 3.3 Test 09/01/16 05:10 09/01/16 08:02 09/01/16 14:08 Random Vancomycin Level 9.4 Bedside Glucose 130 109 Medications Medications Current Medications Acetaminophen (Tylenol Tab) 650 mg Q6H PRN PO PAIN AND OR ELEVATED TEMP; Start 08/27/16 at 23:00 Insulin Glargine (Lantus) 10 unit QAM SC Last administered on 09/01/16 08:12; Admin Dose 10 UNIT; Start 08/28/16 at 09:00 Ondansetron HCl (Zofran Inj) 4 mg Q6H PRN IV NAUSEA AND/OR VOMITING; Start at 23:00 Miscellaneous Information 1 ea NOTE XX ; Start 08/27/16 at 23:00 Glucose (Glutose) 15 gm Q15M PRN PO DECREASED GLUCOSE; Start 08/27/16 at 23:00 Glucose (Glutose) 22.5 gm Q15M PRN PO DECREASED GLUCOSE; Start 08/27/16 at 23: 00 Dextrose (D50w Syringe) 25 ml Q15M PRN IV DECREASED GLUCOSE Last administered on 08/30/16 06:26; Admin Dose 25 ML; Start 08/27/16 at 23:00 Dextrose (D50w Syringe) 50 ml Q15M PRN IV DECREASED GLUCOSE; Start 08/27/16 at 23:00 Glucagon (Glucagen) 1 mg Q15M PRN IM DECREASED GLUCOSE; Start 08/27/16 at 23:00 Glucose (Glutose) 15 gm Q15M PRN BUCCAL DECREASED GLUCOSE; Start 08/27/16 at 23 :00 Carvedilol (Coreg) 3.125 mg BID PO Last administered on 08/29/16 09:54; Admin Dose 3.125 MG; Start 08/28/16 at 09:00; Status Future Hold Isosorbide Dinitrate (Isordil) 10 mg TID PO Last administered on 08/29/16 09:54 ; Admin Dose 10 MG; Start 08/28/16 at 09:00; Status Future Hold Sucralfate (Carafate) 1 gm QID PO Last administered on 09/01/16 14:09; Admin Dose 1 GM; Start 08/28/16 at 09:00 Amiodarone HCl (Cordarone) 200 mg DAILY PO Last administered on 08/29/16 09:53 ; Admin Dose 200 MG; Start 08/29/16 at 09:00; Status Future Hold Hydralazine HCl (Apresoline) 10 mg Q8 PO Last administered on 08/29/16 05:52; Admin Dose 10 MG; Start 08/28/16 at 22:00; Status Future Hold Metolazone 5 mg 5 mg DAILY PO Last administered on 08/31/16 08:45; Admin Dose 5 MG; Start 08/29/16 at 09:00; Status Future Hold Imipenem/ Cilastatin Sodium 100 ml @ 100 mls/hr Q12 IVPB Last administered on 09/01/16 08:18; Admin Dose 100 MLS/HR; Start 08/29/16 at 21:00 Norepinephrine 16 mg/Dextrose 500 ml @ 1.87 mls/hr TITRATE IV Last administered on 08/30/16 05:49; Admin Dose 7.5 MLS/HR; Start 08/30/16 at 01:30 Propofol (Diprivan) 100 ml @ 2.136 mls/ hr Q12H IV Last administered on 10:21; Admin Dose 8.518 MLS/HR; Start 08/31/16 at 09:00 Mupirocin (Bactroban) 1 applic BID TOP Last administered on 09/01/16 08:18; Admin Dose 1 APPLIC; Start 08/31/16 at 11:00; Stop 09/07/16 at 10:59 Morphine Sulfate (morphine) 2 mg Q2H PRN IV PAIN Last administered on 09/01/16 10:22; Admin Dose 2 MG; Start 09/01/16 at 01:30 Insulin Aspart (Novolog Insulin Pen) NOVOLOG *MODERATE* ALGORITHM Q4 SC ; Start 09/01/16 at 09:00 Pantoprazole 40 mg 40 mg DAILY@06 IV ; Start 09/02/16 at 06:00 Vancomycin HCl/ Sodium Chloride (Vancocin/NS) 250 ml @ 83.333 mls/ hr ONCE IVPB Last administered on 09/01/16 11:10; Admin Dose 83.333 MLS/HR; Start at 10:30; Stop 09/01/16 at 16:00 Digoxin (Digoxin Liquid Cup) 0.125 mg Q48H GTB ; Start 09/03/16 at 13:00 DODIE OLMSTEAD MD Sep 01, 2016 16:05
--- NOTE | 2016-09-01 21:40 | CONS ---
Date/Time of Note Date/Time of Note DATE: 09/01/16 TIME: 21:39 Assessment/Plan Assessment/Plan Chief Complaint/Hosp Course SYSTOLIC HEART FAILURE JAZLYN ON CKD LOW EF ASHD DM HX CAD AICD PLACEMENT ANASASCA PLAN hd kcl Problems: Consultation Date/Type/Reason Admit Date/Time Aug 27, 2016 at 21:25 Initial Consult Date s/p hd on vent awake Type of Consultation: RENAL Referring Provider: BOLA SOLO 24 HR Interval Summary Subjective hx not possible: other (D/W FAMILY) Exam/Review of Systems Vital Signs Vitals Vital Signs Date Time Temp Pulse Resp B/P Pulse Ox O2 Delivery O2 Flow Rate FiO2 09/01/16 20:13 30 09/01/16 20:00 60 09/01/16 19:00 14 104/41 100 Mechanical Ventilator 09/01/16 16:00 98.4 08/29/16 08:20 2.0 Intake and Output 08/31/16 08/31/16 09/01/16 15:00 23:00 07:00 Intake Total 474.255 ml 654.717 ml 481.778 ml Output Total 1010 ml 2360 ml 420 ml Balance -535.745 ml -1705.283 ml 61.778 ml Exam Neck: supple Respiratory: diminished breath sounds Cardiovascular: regular rate and rhythm Gastrointestinal: bowel sounds (+), soft Extremities: edema (TR) Results Result Diagram: 09/01/16 0400 09/01/16 0400 Results 24 hrs Laboratory Tests Test 09/01/16 02:51 09/01/16 04:00 09/01/16 05:10 09/01/16 08:02 Bedside Glucose 101 130 White Blood Count 8.4 Red Blood Count 3.34 L Hemoglobin 8.7 L Hematocrit 29.1 L Mean Corpuscular Volume 87.1 Mean Corpuscular Hemoglobin 26.0 L Mean Corpuscular Hemoglobin Concent 29.9 L Red Cell Distribution Width 25.6 H Platelet Count 143 Mean Platelet Volume 10.3 Neutrophils % 83.0 H Lymphocytes % 8.6 L Monocytes % 7.1 Eosinophils % 1.0 Basophils % 0.1 Nucleated Red Blood Cells % 2.5 H Neutrophils # 6.9 Lymphocytes # 0.7 L Monocytes # 0.6 Eosinophils # 0.1 Basophils # 0.0 Nucleated Red Blood Cells # 0.2 H Prothrombin Time 22.8 #H Prothrombin Time Ratio 1.8 INR International Normalized Ratio 1.99 Activated Partial Thromboplast Time 45.0 H Sodium Level 146 H Potassium Level 2.7 *L Chloride Level 99 Carbon Dioxide Level 34 H Anion Gap 16 Blood Urea Nitrogen 33 #H Creatinine 1.09 Glucose Level 100 Calcium Level 9.1 Magnesium Level 1.6 L Total Bilirubin 1.3 Direct Bilirubin 0.10 # Indirect Bilirubin 1.2 H Aspartate Amino Transf (AST/SGOT) 103 H Alanine Aminotransferase (ALT/SGPT) 121 H Alkaline Phosphatase 129 H Total Protein 6.2 Albumin 3.3 Random Vancomycin Level 9.4 Test 09/01/16 14:08 09/01/16 17:38 09/01/16 20:28 Bedside Glucose 109 109 105 Medications Medications Current Medications Acetaminophen (Tylenol Tab) 650 mg Q6H PRN PO PAIN AND OR ELEVATED TEMP; Start 08/27/16 at 23:00 Insulin Glargine (Lantus) 10 unit QAM SC Last administered on 09/01/16 08:12; Admin Dose 10 UNIT; Start 08/28/16 at 09:00 Ondansetron HCl (Zofran Inj) 4 mg Q6H PRN IV NAUSEA AND/OR VOMITING; Start at 23:00 Miscellaneous Information 1 ea NOTE XX ; Start 08/27/16 at 23:00 Glucose (Glutose) 15 gm Q15M PRN PO DECREASED GLUCOSE; Start 08/27/16 at 23:00 Glucose (Glutose) 22.5 gm Q15M PRN PO DECREASED GLUCOSE; Start 08/27/16 at 23: 00 Dextrose (D50w Syringe) 25 ml Q15M PRN IV DECREASED GLUCOSE Last administered on 08/30/16 06:26; Admin Dose 25 ML; Start 08/27/16 at 23:00 Dextrose (D50w Syringe) 50 ml Q15M PRN IV DECREASED GLUCOSE; Start 08/27/16 at 23:00 Glucagon (Glucagen) 1 mg Q15M PRN IM DECREASED GLUCOSE; Start 08/27/16 at 23:00 Glucose (Glutose) 15 gm Q15M PRN BUCCAL DECREASED GLUCOSE; Start 08/27/16 at 23 :00 Carvedilol (Coreg) 3.125 mg BID PO Last administered on 08/29/16 09:54; Admin Dose 3.125 MG; Start 08/28/16 at 09:00; Status Future Hold Isosorbide Dinitrate (Isordil) 10 mg TID PO Last administered on 08/29/16 09:54 ; Admin Dose 10 MG; Start 08/28/16 at 09:00; Status Future Hold Sucralfate (Carafate) 1 gm QID PO Last administered on 09/01/16 20:27; Admin Dose 1 GM; Start 08/28/16 at 09:00 Amiodarone HCl (Cordarone) 200 mg DAILY PO Last administered on 08/29/16 09:53 ; Admin Dose 200 MG; Start 08/29/16 at 09:00; Status Future Hold Hydralazine HCl (Apresoline) 10 mg Q8 PO Last administered on 08/29/16 05:52; Admin Dose 10 MG; Start 08/28/16 at 22:00; Status Future Hold Metolazone 5 mg 5 mg DAILY PO Last administered on 08/31/16 08:45; Admin Dose 5 MG; Start 08/29/16 at 09:00; Status Future Hold Imipenem/ Cilastatin Sodium 100 ml @ 100 mls/hr Q12 IVPB Last administered on 09/01/16 20:27; Admin Dose 100 MLS/HR; Start 08/29/16 at 21:00 Norepinephrine 16 mg/Dextrose 500 ml @ 1.87 mls/hr TITRATE IV Last administered on 08/30/16 05:49; Admin Dose 7.5 MLS/HR; Start 08/30/16 at 01:30 Propofol (Diprivan) 100 ml @ 2.136 mls/ hr Q12H IV Last administered on 10:21; Admin Dose 8.518 MLS/HR; Start 08/31/16 at 09:00 Mupirocin (Bactroban) 1 applic BID TOP Last administered on 09/01/16 20:27; Admin Dose 1 APPLIC; Start 08/31/16 at 11:00; Stop 09/07/16 at 10:59 Morphine Sulfate (morphine) 2 mg Q2H PRN IV PAIN Last administered on 09/01/16 10:22; Admin Dose 2 MG; Start 09/01/16 at 01:30 Insulin Aspart (Novolog Insulin Pen) NOVOLOG *MODERATE* ALGORITHM Q4 SC ; Start 09/01/16 at 09:00 Pantoprazole (Protonix Iv) 40 mg DAILY@06 IV ; Start 09/02/16 at 06:00 Digoxin (Digoxin Liquid Cup) 0.125 mg Q48H GTB ; Start 09/01/16 at 13:00 YANIRA HART MD Sep 01, 2016 21:40
[2016-09-01] MEDS ORDERED: DIGOXIN 500 MCG INJ IV SCH (23:30)
[2016-09-02] VITALS (87 sets, daily range): BP systolic 98–132; BP diastolic 36–65; PULSE 60–74; RESP 5–32
[2016-09-02] MEDS: INSULIN ASPART [NOVOLOG] 3 ML PEN SC SCH ×6 (01:00→20:33)
[2016-09-02 04:57] LABS: ADD SCAN DIFF NO
[2016-09-02] MEDS: PANTOPRAZOLE 40 MG INJ IV SCH (05:05)
[2016-09-02 05:06] LABS: ABNORMAL IP MESSAGE 1; BASOPHILS % 0.1 % (0.0-2.0); EOSINOPHILS # 0.3 10^3/ul (0.0-0.5); EOSINOPHILS % 3.1 % (0.0-7.0); HEMATOCRIT 31.4 % (42.0-52.0); HEMOGLOBIN 9.2 g/dl (14.0-18.0); LYMPHOCYTES % 12.1 % (15.0-51.0); MEAN CORPUSCULAR HEMOGLOBIN 25.6 pg (29.0-33.0); MEAN CORPUSCULAR HGB CONC 29.3 g/dl (32.0-37.0); MEAN CORPUSCULAR VOLUME 87.5 fl (82.0-101.0); MEAN PLATELET VOLUME 10.6 fl (7.4-10.4); MONOCYTE # 0.7 10^3/ul (0.3-0.9); MONOCYTES % 8.4 % (0.0-11.0); NUCLEATED RED BLOOD CELLS # 0.2 10^3/ul (0.0-0.0); NUCLEATED RED BLOOD CELLS% 1.9 /100WBC (0.0-0.0); PLATELET COUNT 140 10^3/UL (140-415); RED BLOOD COUNT 3.59 10^6/ul (4.70-6.10); RED CELL DISTRIBUTION WIDTH 25.8 % (11.5-14.5)
[2016-09-02 05:26] LABS: INR 1.67; PROTIME 19.8 Sec (12.2-14.2); PT RATIO 1.5
[2016-09-02 05:27] LABS: PARTIAL THROMBOPLASTIN TIME 45.8 Sec (25.0-35.0)
[2016-09-02 05:31] LABS: ALBUMIN 3.1 g/dl (3.3-4.9)
[2016-09-02 05:32] LABS: POTASSIUM 3.8 mmol/L (3.5-5.1)
[2016-09-02 05:34] LABS: BILIRUBIN,INDIRECT 0.9 mg/dl (0-1.1); BILIRUBIN,TOTAL 0.9 mg/dl (0.2-1.3); CREATININE 1.01 mg/dl (0.61-1.24)
[2016-09-02 05:35] LABS: CALCIUM 8.9 mg/dl (8.4-10.2)
[2016-09-02] MEDS: IMIPENEM-CILAST 500MG IV (PMX) 100 ML IVPB SCH ×2 (08:58→20:33)
[2016-09-02] MEDS: PROPOFOL 100 ML IV SCH ×2 (08:58→20:34)
[2016-09-02] MEDS: SUCRALFATE 1 GM TAB PO SCH ×4 (08:59→20:33)
[2016-09-02] MEDS: MUPIROCIN 2% 15 GM CR TOP SCH ×2 (09:03→20:33)
[2016-09-02] MEDS: INSULIN GLARGINE [LANtus] 3 ML PEN SC SCH (09:05)
--- NOTE | 2016-09-02 10:11 | CONS ---
Date/Time of Note Date/Time of Note DATE: 09/02/16 TIME: 10:08 Consult Date/Type/Reason Admit Date/Time Aug 27, 2016 at 21:25 Initial Consult Date Type of Consultation: pulmonary ICU Ordering Provider: BOLA SOLO Subjective Patient remains intubated on mechanical ventilation Continues levo fed vasopressor support Scheduled for hemodialysis today Moderate oral secretions Objective Vital Signs Date Time Temp Pulse Resp B/P Pulse Ox O2 Delivery O2 Flow Rate FiO2 09/02/16 08:45 64 25 120/47 100 09/02/16 08:00 98.3 09/02/16 07:00 Mechanical Ventilator 09/02/16 05:11 30 08/29/16 08:20 2.0 Intake and Output 09/01/16 09/01/16 09/02/16 15:00 23:00 07:00 Intake Total 735.644 ml 491.082 ml 578.7 ml Output Total 810 ml 600 ml 710 ml Balance -74.356 ml -108.918 ml -131.3 ml Exam PHYSICAL EXAMINATION GENERAL: Elderly gentleman, intubated on mechanical ventilation, opens eyes and appears somewhat agitated. Orally intubated. VITAL SIGNS: see below. HEENT: Pupils equal, round, and reactive to light. Dry mucous membranes CARDIAC: S1, S2, 2/6 systolic ejection murmur CHEST: Diminished air entry bilaterally. ABDOMEN: Mildly distended. Bowel sounds present no guarding rebound. EXTREMITIES: No cyanosis, clubbing, edema +1 NEUROLOGIC: Unable to assess currently sedated Results/Medications Result Diagram: 09/02/16 0400 09/02/16 0400 Results 24 hrs Laboratory Tests Test 09/01/16 14:08 09/01/16 17:38 09/01/16 20:28 09/02/16 01:34 Bedside Glucose 109 109 105 116 Test 09/02/16 04:00 09/02/16 05:01 09/02/16 09:02 White Blood Count 8.0 Red Blood Count 3.59 L Hemoglobin 9.2 L Hematocrit 31.4 L Mean Corpuscular Volume 87.5 Mean Corpuscular Hemoglobin 25.6 L Mean Corpuscular Hemoglobin Concent 29.3 L Red Cell Distribution Width 25.8 H Platelet Count 140 Mean Platelet Volume 10.6 H Neutrophils % 76.0 Lymphocytes % 12.1 L Monocytes % 8.4 Eosinophils % 3.1 Basophils % 0.1 Nucleated Red Blood Cells % 1.9 H Neutrophils # 6.0 Lymphocytes # 1.0 Monocytes # 0.7 Eosinophils # 0.3 Basophils # 0.0 Nucleated Red Blood Cells # 0.2 H Prothrombin Time 19.8 H Prothrombin Time Ratio 1.5 INR International Normalized Ratio 1.67 Activated Partial Thromboplast Time 45.8 H Sodium Level 142 Potassium Level 3.8 Chloride Level 100 Carbon Dioxide Level 35 H Anion Gap 11 Blood Urea Nitrogen 40 H Creatinine 1.01 Glucose Level 105 Calcium Level 8.9 Total Bilirubin 0.9 Direct Bilirubin 0.00 Indirect Bilirubin 0.9 Aspartate Amino Transf (AST/SGOT) 59 H Alanine Aminotransferase (ALT/SGPT) 90 H Alkaline Phosphatase 143 H Total Protein 6.0 L Albumin 3.1 L Digoxin Level 0.8 L Bedside Glucose 119 129 Medications Current Medications Acetaminophen (Tylenol Tab) 650 mg Q6H PRN PO PAIN AND OR ELEVATED TEMP; Start 08/27/16 at 23:00 Insulin Glargine (Lantus) 10 unit QAM SC Last administered on 09/02/16 09:05; Admin Dose 10 UNIT; Start 08/28/16 at 09:00 Ondansetron HCl (Zofran Inj) 4 mg Q6H PRN IV NAUSEA AND/OR VOMITING; Start at 23:00 Miscellaneous Information 1 ea NOTE XX ; Start 08/27/16 at 23:00 Glucose (Glutose) 15 gm Q15M PRN PO DECREASED GLUCOSE; Start 08/27/16 at 23:00 Glucose (Glutose) 22.5 gm Q15M PRN PO DECREASED GLUCOSE; Start 08/27/16 at 23: 00 Dextrose (D50w Syringe) 25 ml Q15M PRN IV DECREASED GLUCOSE Last administered on 08/30/16 06:26; Admin Dose 25 ML; Start 08/27/16 at 23:00 Dextrose (D50w Syringe) 50 ml Q15M PRN IV DECREASED GLUCOSE; Start 08/27/16 at 23:00 Glucagon (Glucagen) 1 mg Q15M PRN IM DECREASED GLUCOSE; Start 08/27/16 at 23:00 Glucose (Glutose) 15 gm Q15M PRN BUCCAL DECREASED GLUCOSE; Start 08/27/16 at 23 :00 Carvedilol (Coreg) 3.125 mg BID PO Last administered on 08/29/16 09:54; Admin Dose 3.125 MG; Start 08/28/16 at 09:00; Status Future Hold Isosorbide Dinitrate (Isordil) 10 mg TID PO Last administered on 08/29/16 09:54 ; Admin Dose 10 MG; Start 08/28/16 at 09:00; Status Future Hold Sucralfate (Carafate) 1 gm QID PO Last administered on 09/02/16 08:59; Admin Dose 1 GM; Start 08/28/16 at 09:00 Amiodarone HCl (Cordarone) 200 mg DAILY PO Last administered on 08/29/16 09:53 ; Admin Dose 200 MG; Start 08/29/16 at 09:00; Status Future Hold Hydralazine HCl (Apresoline) 10 mg Q8 PO Last administered on 08/29/16 05:52; Admin Dose 10 MG; Start 08/28/16 at 22:00; Status Future Hold Metolazone 5 mg 5 mg DAILY PO Last administered on 08/31/16 08:45; Admin Dose 5 MG; Start 08/29/16 at 09:00; Status Future Hold Imipenem/ Cilastatin Sodium 100 ml @ 100 mls/hr Q12 IVPB Last administered on 09/02/16 08:58; Admin Dose 100 MLS/HR; Start 08/29/16 at 21:00 Norepinephrine 16 mg/Dextrose 500 ml @ 1.87 mls/hr TITRATE IV Last administered on 08/30/16 05:49; Admin Dose 7.5 MLS/HR; Start 08/30/16 at 01:30 Propofol (Diprivan) 100 ml @ 2.136 mls/ hr Q12H IV Last administered on 08:58; Admin Dose 8.544 MLS/HR; Start 08/31/16 at 09:00 Mupirocin (Bactroban) 1 applic BID TOP Last administered on 09/02/16 09:03; Admin Dose 1 APPLIC; Start 08/31/16 at 11:00; Stop 09/07/16 at 10:59 Morphine Sulfate (morphine) 2 mg Q2H PRN IV PAIN Last administered on 09/01/16 10:22; Admin Dose 2 MG; Start 09/01/16 at 01:30 Insulin Aspart (Novolog Insulin Pen) NOVOLOG *MODERATE* ALGORITHM Q4 SC ; Start 09/01/16 at 09:00 Pantoprazole (Protonix Iv) 40 mg DAILY@06 IV Last administered on 09/02/16 05: 05; Admin Dose 40 MG; Start 09/02/16 at 06:00 Digoxin (Digoxin) 125 mcg Q48H IV Last administered on 09/01/16 23:38; Admin Dose 125 MCG; Start 09/01/16 at 23:30 Assessment/Plan Chief Complaint/Hosp Course IMPRESSION: 1. Shock, most likely septic in a patient with underlying cardiomyopathy 2. Altered mental status likely due to his underlying shock and uremia 3. Renal Failure requiring hemodialysis 4. Acute Hypercapnic resp failure--secondary to shock and ARF 5. Anemia RECOMMENDATIONS: 1. Adjust vent now that acidosis is improved. Lower RR and Vt; lower PEEP may require tracheostomy given overall poor condition 2. Hemodialysis per nephrology consider holding 3. Abx per ID 4. Titrate levophed gtt to MAP > 65 5. F/U cx's 6. Cardiac recommendations consider increasing pace output Disposition Continue ICU care Discussed with nursing staff at bedside Problems: HER[facility] CARDENAS MD, [facility] Sep 02, 2016 10:11
--- NOTE | 2016-09-02 10:31 | PN ---
Date/Time of Note Date/Time of Note DATE: 09/02/16 TIME: 10:26 Assessment/Plan VTE Prophylaxis VTE Prophylaxis Intervention: SCD's Lines/Catheters IV Catheter Type (from [facility]): Peripheral IV Urinary Cath still in place: Yes Reason Cath still needed: other (indicate) Assessment/Plan Assessment/Plan An 81-year-old male with the following medical problems: 1. Severe sepsis with lactic acidosis secondary to #2: improving 2. Urinary tract infection. 3. 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 4. Acute respiratory failure, still fully ventilator dependent. 5. Congestive heart failure and chronic kidney disease causing volume overload causing respiratory failure. 6. Diabetes mellitus type 2 : Good control 7. Paroxysmal atrial fibrillation. 8. Coronary artery disease status post coronary artery bypass graft. 9. Ischemic cardiomyopathy. Last known EF of 25%, status post automatic implantable cardioverter/defibrillator. 10. 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 11. Chronic liver cirrhosis with coagulopathy with Mild hyperbilirubinemia with transaminitis 12. Methicillin-resistant Staphylococcus aureus, nares. PLAN: 1. Continue ICU care and monitoring. 2. Continue ventilator weaning/ appreciate pulm input 3. Continue hemodialysis per renal. The patient needs continued volume removal. 4. Continue broad-spectrum antibiotics. 5. Continue Bactroban for MRSA nares. 6. Continue to wean off pressors. 7. Commence tube feedings and titrate insulin therapy as indicated PROPHYLAXIS: SCDs only for now as the patient is still coagulopathic / PPI as well (the patent was on Eliquis prior to admission for Afib). CRITICAL CARE TIME: >35 mins of which more than half was spent at the bedside and during counselling Subjective 24 Hr Interval Summary Free Text/Dictation Patient seen and examined. more alert now on CPAP trials still on low dose pressors Exam/Review of Systems Vital Signs Vitals Vital Signs Date Time Temp Pulse Resp B/P Pulse Ox O2 Delivery O2 Flow Rate FiO2 09/02/16 08:45 64 25 120/47 100 09/02/16 08:00 98.3 09/02/16 07:00 Mechanical Ventilator 09/02/16 05:11 30 08/29/16 08:20 2.0 Intake and Output 09/01/16 09/01/16 09/02/16 15:00 23:00 07:00 Intake Total 735.644 ml 491.082 ml 578.7 ml Output Total 810 ml 600 ml 710 ml Balance -74.356 ml -108.918 ml -131.3 ml Exam Constitutional: alert, non-verbal, other (asking for water) Psych: anxiety Head: normocephalic Eyes: PERRL ENMT: intubated Respiratory: clear to auscultation, diminished breath sounds Cardiovascular: nl pulses, regular rate and rhythm Gastrointestinal: bowel sounds, non-tender, soft Genitourinary - Male: other (cohen draining good urine) Extremities: No edema Neurological: lethargic Results Result Diagram: 09/02/16 0400 09/02/16 0400 Results 24 hrs Laboratory Tests Test 09/01/16 14:08 09/01/16 17:38 09/01/16 20:28 09/02/16 01:34 Bedside Glucose 109 109 105 116 Test 09/02/16 04:00 09/02/16 05:01 09/02/16 09:02 White Blood Count 8.0 Red Blood Count 3.59 L Hemoglobin 9.2 L Hematocrit 31.4 L Mean Corpuscular Volume 87.5 Mean Corpuscular Hemoglobin 25.6 L Mean Corpuscular Hemoglobin Concent 29.3 L Red Cell Distribution Width 25.8 H Platelet Count 140 Mean Platelet Volume 10.6 H Neutrophils % 76.0 Lymphocytes % 12.1 L Monocytes % 8.4 Eosinophils % 3.1 Basophils % 0.1 Nucleated Red Blood Cells % 1.9 H Neutrophils # 6.0 Lymphocytes # 1.0 Monocytes # 0.7 Eosinophils # 0.3 Basophils # 0.0 Nucleated Red Blood Cells # 0.2 H Prothrombin Time 19.8 H Prothrombin Time Ratio 1.5 INR International Normalized Ratio 1.67 Activated Partial Thromboplast Time 45.8 H Sodium Level 142 Potassium Level 3.8 Chloride Level 100 Carbon Dioxide Level 35 H Anion Gap 11 Blood Urea Nitrogen 40 H Creatinine 1.01 Glucose Level 105 Calcium Level 8.9 Total Bilirubin 0.9 Direct Bilirubin 0.00 Indirect Bilirubin 0.9 Aspartate Amino Transf (AST/SGOT) 59 H Alanine Aminotransferase (ALT/SGPT) 90 H Alkaline Phosphatase 143 H Total Protein 6.0 L Albumin 3.1 L Digoxin Level 0.8 L Bedside Glucose 119 129 Medications Medications Current Medications Acetaminophen (Tylenol Tab) 650 mg Q6H PRN PO PAIN AND OR ELEVATED TEMP; Start 08/27/16 at 23:00 Insulin Glargine (Lantus) 10 unit QAM SC Last administered on 09/02/16 09:05; Admin Dose 10 UNIT; Start 08/28/16 at 09:00 Ondansetron HCl (Zofran Inj) 4 mg Q6H PRN IV NAUSEA AND/OR VOMITING; Start at 23:00 Miscellaneous Information 1 ea NOTE XX ; Start 08/27/16 at 23:00 Glucose (Glutose) 15 gm Q15M PRN PO DECREASED GLUCOSE; Start 08/27/16 at 23:00 Glucose (Glutose) 22.5 gm Q15M PRN PO DECREASED GLUCOSE; Start 08/27/16 at 23: 00 Dextrose (D50w Syringe) 25 ml Q15M PRN IV DECREASED GLUCOSE Last administered on 08/30/16 06:26; Admin Dose 25 ML; Start 08/27/16 at 23:00 Dextrose (D50w Syringe) 50 ml Q15M PRN IV DECREASED GLUCOSE; Start 08/27/16 at 23:00 Glucagon (Glucagen) 1 mg Q15M PRN IM DECREASED GLUCOSE; Start 08/27/16 at 23:00 Glucose (Glutose) 15 gm Q15M PRN BUCCAL DECREASED GLUCOSE; Start 08/27/16 at 23 :00 Carvedilol (Coreg) 3.125 mg BID PO Last administered on 08/29/16 09:54; Admin Dose 3.125 MG; Start 08/28/16 at 09:00; Status Future Hold Isosorbide Dinitrate (Isordil) 10 mg TID PO Last administered on 08/29/16 09:54 ; Admin Dose 10 MG; Start 08/28/16 at 09:00; Status Future Hold Sucralfate (Carafate) 1 gm QID PO Last administered on 09/02/16 08:59; Admin Dose 1 GM; Start 08/28/16 at 09:00 Amiodarone HCl (Cordarone) 200 mg DAILY PO Last administered on 08/29/16 09:53 ; Admin Dose 200 MG; Start 08/29/16 at 09:00; Status Future Hold Hydralazine HCl (Apresoline) 10 mg Q8 PO Last administered on 08/29/16 05:52; Admin Dose 10 MG; Start 08/28/16 at 22:00; Status Future Hold Metolazone 5 mg 5 mg DAILY PO Last administered on 08/31/16 08:45; Admin Dose 5 MG; Start 08/29/16 at 09:00; Status Future Hold Imipenem/ Cilastatin Sodium 100 ml @ 100 mls/hr Q12 IVPB Last administered on 09/02/16 08:58; Admin Dose 100 MLS/HR; Start 08/29/16 at 21:00 Norepinephrine 16 mg/Dextrose 500 ml @ 1.87 mls/hr TITRATE IV Last administered on 08/30/16 05:49; Admin Dose 7.5 MLS/HR; Start 08/30/16 at 01:30 Propofol (Diprivan) 100 ml @ 2.136 mls/ hr Q12H IV Last administered on 08:58; Admin Dose 8.544 MLS/HR; Start 08/31/16 at 09:00 Mupirocin (Bactroban) 1 applic BID TOP Last administered on 09/02/16 09:03; Admin Dose 1 APPLIC; Start 08/31/16 at 11:00; Stop 09/07/16 at 10:59 Morphine Sulfate (morphine) 2 mg Q2H PRN IV PAIN Last administered on 09/01/16 10:22; Admin Dose 2 MG; Start 09/01/16 at 01:30 Insulin Aspart (Novolog Insulin Pen) NOVOLOG *MODERATE* ALGORITHM Q4 SC ; Start 09/01/16 at 09:00 Pantoprazole (Protonix Iv) 40 mg DAILY@06 IV Last administered on 09/02/16 05: 05; Admin Dose 40 MG; Start 09/02/16 at 06:00 Digoxin (Digoxin) 125 mcg Q48H IV Last administered on 09/01/16 23:38; Admin Dose 125 MCG; Start 09/01/16 at 23:30 BOLA SOLO Sep 02, 2016 10:31
--- NOTE | 2016-09-02 11:33 | CONS ---
Date/Time of Note Date/Time of Note DATE: 09/02/16 TIME: 11:30 Assessment/Plan Assessment/Plan Chief Complaint/Hosp Course IMp: 1.CHF-systolic acute on chronic 2.Hypotension-Levo just turned off 3.REnal failurwe s/p HD 4.Cardiomyopathy with low EF 5.AICD 6.H/O cad s/p cabg 7.PAF 8.Coagulopathy Recc: -Tele -Continue abx's and f/'u cx data -HD for volume removal -Follow BP clsoely -Wean vent as tolerated -Lisandra ok to resume Eliquis at this time after HD Problems: Consultation Date/Type/Reason Admit Date/Time Aug 27, 2016 at 21:25 Initial Consult Date 08/28/2016 Type of Consultation: Cardiology Reason for Consultation CHF/cardiomyopathy Referring Provider: BOLA SOLO Exam/Review of Systems Vital Signs Vitals Vital Signs Date Time Temp Pulse Resp B/P Pulse Ox O2 Delivery O2 Flow Rate FiO2 09/02/16 11:08 64 31 100 30 09/02/16 11:00 108/43 Mechanical Ventilator 09/02/16 08:00 98.3 08/29/16 08:20 2.0 Intake and Output 09/01/16 09/01/16 09/02/16 15:00 23:00 07:00 Intake Total 735.644 ml 491.082 ml 578.7 ml Output Total 810 ml 600 ml 710 ml Balance -74.356 ml -108.918 ml -131.3 ml Exam Review of Systems: CONSTITUTIONAL: No fevers, chills. PULMONARY: intubated CARDIOVASCULAR: No obvious chest pain/palpitations GASTROINTESTINAL: No nausea/vomiting. GENITOURINARY: No hematuria/dysuria. MUSCULOSKELETAL: No obvious myagias/arthalgias. PSYCHIATRIC: The patient denies depression. NEUROLOGIC: sedated Constitutional: other (sedated) ENMT: intubated Neck: jvd (9 cm wate), supple Respiratory: diminished breath sounds Cardiovascular: regular rate and rhythm Gastrointestinal: non-tender, soft Musculoskeletal: muscle tone Extremities: normal pulses Neurological: confused Skin: other (No focal deficits) Results Result Diagram: 09/02/16 0400 09/02/16 0400 Results 24 hrs Laboratory Tests Test 09/01/16 14:08 09/01/16 17:38 09/01/16 20:28 09/02/16 01:34 Bedside Glucose 109 109 105 116 Test 09/02/16 04:00 09/02/16 05:01 09/02/16 09:02 White Blood Count 8.0 Red Blood Count 3.59 L Hemoglobin 9.2 L Hematocrit 31.4 L Mean Corpuscular Volume 87.5 Mean Corpuscular Hemoglobin 25.6 L Mean Corpuscular Hemoglobin Concent 29.3 L Red Cell Distribution Width 25.8 H Platelet Count 140 Mean Platelet Volume 10.6 H Neutrophils % 76.0 Lymphocytes % 12.1 L Monocytes % 8.4 Eosinophils % 3.1 Basophils % 0.1 Nucleated Red Blood Cells % 1.9 H Neutrophils # 6.0 Lymphocytes # 1.0 Monocytes # 0.7 Eosinophils # 0.3 Basophils # 0.0 Nucleated Red Blood Cells # 0.2 H Prothrombin Time 19.8 H Prothrombin Time Ratio 1.5 INR International Normalized Ratio 1.67 Activated Partial Thromboplast Time 45.8 H Sodium Level 142 Potassium Level 3.8 Chloride Level 100 Carbon Dioxide Level 35 H Anion Gap 11 Blood Urea Nitrogen 40 H Creatinine 1.01 Glucose Level 105 Calcium Level 8.9 Total Bilirubin 0.9 Direct Bilirubin 0.00 Indirect Bilirubin 0.9 Aspartate Amino Transf (AST/SGOT) 59 H Alanine Aminotransferase (ALT/SGPT) 90 H Alkaline Phosphatase 143 H Total Protein 6.0 L Albumin 3.1 L Digoxin Level 0.8 L Bedside Glucose 119 129 Medications Medications Current Medications Acetaminophen (Tylenol Tab) 650 mg Q6H PRN PO PAIN AND OR ELEVATED TEMP; Start 08/27/16 at 23:00 Insulin Glargine (Lantus) 10 unit QAM SC Last administered on 09/02/16t 09:05; Admin Dose 10 UNIT; Start 08/28/16 at 09:00 Ondansetron HCl (Zofran Inj) 4 mg Q6H PRN IV NAUSEA AND/OR VOMITING; Start at 23:00 Miscellaneous Information 1 ea NOTE XX ; Start 08/27/16 at 23:00 Glucose (Glutose) 15 gm Q15M PRN PO DECREASED GLUCOSE; Start 08/27/16 at 23:00 Glucose (Glutose) 22.5 gm Q15M PRN PO DECREASED GLUCOSE; Start 08/27/16 at 23: 00 Dextrose (D50w Syringe) 25 ml Q15M PRN IV DECREASED GLUCOSE Last administered on 08/30/16 06:26; Admin Dose 25 ML; Start 08/27/16 at 23:00 Dextrose (D50w Syringe) 50 ml Q15M PRN IV DECREASED GLUCOSE; Start 08/27/16 at 23:00 Glucagon (Glucagen) 1 mg Q15M PRN IM DECREASED GLUCOSE; Start 08/27/16 at 23:00 Glucose (Glutose) 15 gm Q15M PRN BUCCAL DECREASED GLUCOSE; Start 08/27/16 at 23 :00 Carvedilol (Coreg) 3.125 mg BID PO Last administered on 08/29/16 09:54; Admin Dose 3.125 MG; Start 08/28/16 at 09:00; Status Future Hold Isosorbide Dinitrate (Isordil) 10 mg TID PO Last administered on 08/29/16 09:54 ; Admin Dose 10 MG; Start 08/28/16 at 09:00; Status Future Hold Sucralfate (Carafate) 1 gm QID PO Last administered on 09/02/16 08:59; Admin Dose 1 GM; Start 08/28/16 at 09:00 Amiodarone HCl (Cordarone) 200 mg DAILY PO Last administered on 08/29/16 09:53 ; Admin Dose 200 MG; Start 08/29/16 at 09:00; Status Future Hold Hydralazine HCl (Apresoline) 10 mg Q8 PO Last administered on 08/29/16 05:52; Admin Dose 10 MG; Start 08/28/16 at 22:00; Status Future Hold Metolazone 5 mg 5 mg DAILY PO Last administered on 08/31/16 08:45; Admin Dose 5 MG; Start 08/29/16 at 09:00; Status Future Hold Imipenem/ Cilastatin Sodium 100 ml @ 100 mls/hr Q12 IVPB Last administered on 09/02/16 08:58; Admin Dose 100 MLS/HR; Start 08/29/16 at 21:00 Norepinephrine 16 mg/Dextrose 500 ml @ 1.87 mls/hr TITRATE IV Last administered on 08/30/16 05:49; Admin Dose 7.5 MLS/HR; Start 08/30/16 at 01:30 Propofol (Diprivan) 100 ml @ 2.136 mls/ hr Q12H IV Last administered on 08:58; Admin Dose 8.544 MLS/HR; Start 08/31/16 at 09:00 Mupirocin (Bactroban) 1 applic BID TOP Last administered on 09/02/16 09:03; Admin Dose 1 APPLIC; Start 08/31/16 at 11:00; Stop 09/07/16 at 10:59 Morphine Sulfate (morphine) 2 mg Q2H PRN IV PAIN Last administered on 09/01/16 10:22; Admin Dose 2 MG; Start 09/01/16 at 01:30 Insulin Aspart (Novolog Insulin Pen) NOVOLOG *MODERATE* ALGORITHM Q4 SC ; Start 09/01/16 at 09:00 Pantoprazole (Protonix Iv) 40 mg DAILY@06 IV Last administered on 09/02/16 05: 05; Admin Dose 40 MG; Start 09/02/16 at 06:00 Digoxin (Digoxin) 125 mcg Q48H IV Last administered on 09/01/16 23:38; Admin Dose 125 MCG; Start 09/01/16 at 23:30 POLI SAN Sep 02, 2016 11:33
[2016-09-02 12:05] LABS: AADO2 Arterial 48.2 mmHg (7.0-24.0); Allen Test ACCEPTAB; Arterial Base Excess 10.9 mmol/L (-3.0-3); Arterial COHb 0.3 % (0.0-3.0); Arterial HCO3 34.8 mmol/L (22.0-26.0); Arterial MetHb 0.6 % (0.0-1.5); Blood Gas PS 10; MODE VENT - CPAP
--- NOTE | 2016-09-02 14:03 | PN ---
DATE: 09/02/2016 SUBJECTIVE: No events overnight. The patient was extubated this morning. She is awake, looks comf ortable, no fevers. VITAL SIGNS: Temperature 98.3, pulse 60, respirations 21, blood pressure 102/41, saturation 100 on 3 liters. LABORATORY DATA: WBC 8, H and H 9.2 and 31.4, platelets 140, neutrophils 76. MICROBIOLOGY: Nares swab came back positive for MRSA. Blood cultures have been negative. INDWELLINGS: The patient has right IJ Fidel catheter and Gan catheter. ANTIMICROBIALS: He is on IV vancomycin and imipenem. Also, getting Bactroban to nares. PHYSICAL EXAMINATION: GENERAL: This is a fragile, chronically ill-appearing, elderly man who is in no distress. HEENT: Head atraumatic, normocephalic. Sclerae anicteric. Buccal mucosa dry. NECK: Supple. CHEST: Rise symmetrical. Breath sounds diminished to bases. HEART: S1, S2. ABDOMEN: Soft, bowel tones present. EXTREMITIES: Bilateral edema. ASSESSMENT: 1. Status post acute respiratory failure secondary to fluid overload. 2. Methicillin-resistant Staphylococcus aureus nares colonization. 3. Escherichia coli urinary tract infection on admission. 4. Acute on chronic kidney disease. 5. History of coronary artery bypass graft and nonischemic cardiomyopathy. PLAN: The patient remains stable post-extubation. Continue present care, antibiotics, anti-aspirat ion measures. Follow recommendations of consultants. Dictated By: ADA MICHELLE DIRECTOR OF HUMAN RESOURCES for [employer] Conf#: [id number] DID#: [id number]
--- NOTE | 2016-09-02 20:06 | CONS ---
Date/Time of Note Date/Time of Note DATE: 09/02/16 TIME: 20:05 Assessment/Plan Assessment/Plan Chief Complaint/Hosp Course SYSTOLIC HEART FAILURE JAZLYN ON CKD LOW EF ASHD DM HX CAD AICD PLACEMENT s/p anasarca PLAN hd Problems: Consultation Date/Type/Reason Admit Date/Time Aug 27, 2016 at 21:25 Initial Consult Date s/p hd on vent awake Type of Consultation: renal Referring Provider: BOLA SOLO Exam/Review of Systems Vital Signs Vitals Vital Signs Date Time Temp Pulse Resp B/P Pulse Ox O2 Delivery O2 Flow Rate FiO2 09/02/16 19:38 Nasal Cannula 2.0 09/02/16 19:00 60 27 108/46 100 09/02/16 16:00 97.0 09/02/16 11:08 30 Intake and Output 09/01/16 09/01/16 09/02/16 15:00 23:00 07:00 Intake Total 735.644 ml 491.082 ml 590.705 ml Output Total 810 ml 600 ml 710 ml Balance -74.356 ml -108.918 ml -119.295 ml Exam Respiratory: diminished breath sounds Cardiovascular: regular rate and rhythm Gastrointestinal: bowel sounds (+), soft Extremities: edema (+) Results Result Diagram: 09/02/16 0400 09/02/16 0400 Results 24 hrs Laboratory Tests Test 09/01/16 20:28 09/02/16 01:34 09/02/16 04:00 09/02/16 05:01 Bedside Glucose 105 116 119 White Blood Count 8.0 Red Blood Count 3.59 L Hemoglobin 9.2 L Hematocrit 31.4 L Mean Corpuscular Volume 87.5 Mean Corpuscular Hemoglobin 25.6 L Mean Corpuscular Hemoglobin Concent 29.3 L Red Cell Distribution Width 25.8 H Platelet Count 140 Mean Platelet Volume 10.6 H Neutrophils % 76.0 Lymphocytes % 12.1 L Monocytes % 8.4 Eosinophils % 3.1 Basophils % 0.1 Nucleated Red Blood Cells % 1.9 H Neutrophils # 6.0 Lymphocytes # 1.0 Monocytes # 0.7 Eosinophils # 0.3 Basophils # 0.0 Nucleated Red Blood Cells # 0.2 H Prothrombin Time 19.8 H Prothrombin Time Ratio 1.5 INR International Normalized Ratio 1.67 Activated Partial Thromboplast Time 45.8 H Sodium Level 142 Potassium Level 3.8 Chloride Level 100 Carbon Dioxide Level 35 H Anion Gap 11 Blood Urea Nitrogen 40 H Creatinine 1.01 Glucose Level 105 Calcium Level 8.9 Total Bilirubin 0.9 Direct Bilirubin 0.00 Indirect Bilirubin 0.9 Aspartate Amino Transf (AST/SGOT) 59 H Alanine Aminotransferase (ALT/SGPT) 90 H Alkaline Phosphatase 143 H Total Protein 6.0 L Albumin 3.1 L Digoxin Level 0.8 L Test 09/02/16 09:02 09/02/16 11:45 09/02/16 13:30 09/02/16 17:31 Bedside Glucose 129 89 144 Blood Gas Specimen Source Blood arterial Arterial Blood Date Drawn 09/02/2016 11:50:05 AM Arterial Blood pH (Temp corrected) 7.523 H Arterial Blood pCO2 (Temp correct) 43.3 Arterial Blood pO2 (Temp corrected) 114.8 H Arterial Blood HCO3 34.8 H Arterial Blood Base Excess 10.9 H Arterial Blood Oxygen Saturation 97.9 Sebastien Test ACCEPTAB Arterial Blood Gas Puncture Site Right Radial Arterial Blood Carboxyhemoglobin 0.3 Arterial Blood Methemoglobin 0.6 Blood Gas A-a O2 Differential 48.2 H Oxyhemoglobin Percent 97.0 Total Hemoglobin 11.0 L Blood Gas Temperature 37.0 Blood Gas Actual Respiration Rate 32 Blood Gas Modality VENT - CPAP FiO2 30.0 Blood Gas Low PEEP Setting 5.0 Blood Gas Pressure Support 10 Blood Gas Notified Whom JLD Blood Gas Notified Time 09/02/2016 12:04:43 PM Medications Medications Current Medications Acetaminophen (Tylenol Tab) 650 mg Q6H PRN PO PAIN AND OR ELEVATED TEMP; Start 08/27/16 at 23:00 Insulin Glargine (Lantus) 10 unit QAM SC Last administered on 09/02/16t 09:05; Admin Dose 10 UNIT; Start 08/28/16 at 09:00 Ondansetron HCl (Zofran Inj) 4 mg Q6H PRN IV NAUSEA AND/OR VOMITING; Start at 23:00 Miscellaneous Information 1 ea NOTE XX ; Start 08/27/16 at 23:00 Glucose (Glutose) 15 gm Q15M PRN PO DECREASED GLUCOSE; Start 08/27/16 at 23:00 Glucose (Glutose) 22.5 gm Q15M PRN PO DECREASED GLUCOSE; Start 08/27/16 at 23: 00 Dextrose (D50w Syringe) 25 ml Q15M PRN IV DECREASED GLUCOSE Last administered on 08/30/16 06:26; Admin Dose 25 ML; Start 08/27/16 at 23:00 Dextrose (D50w Syringe) 50 ml Q15M PRN IV DECREASED GLUCOSE; Start 08/27/16 at 23:00 Glucagon (Glucagen) 1 mg Q15M PRN IM DECREASED GLUCOSE; Start 08/27/16 at 23:00 Glucose (Glutose) 15 gm Q15M PRN BUCCAL DECREASED GLUCOSE; Start 08/27/16 at 23 :00 Carvedilol (Coreg) 3.125 mg BID PO Last administered on 08/29/16 09:54; Admin Dose 3.125 MG; Start 08/28/16 at 09:00; Status Future Hold Isosorbide Dinitrate (Isordil) 10 mg TID PO Last administered on 08/29/16 09:54 ; Admin Dose 10 MG; Start 08/28/16 at 09:00; Status Future Hold Sucralfate (Carafate) 1 gm QID PO Last administered on 09/02/16 17:34; Admin Dose 1 GM; Start 08/28/16 at 09:00 Amiodarone HCl (Cordarone) 200 mg DAILY PO Last administered on 08/29/16 09:53 ; Admin Dose 200 MG; Start 08/29/16 at 09:00; Status Future Hold Hydralazine HCl (Apresoline) 10 mg Q8 PO Last administered on 08/29/16 05:52; Admin Dose 10 MG; Start 08/28/16 at 22:00; Status Future Hold Metolazone 5 mg 5 mg DAILY PO Last administered on 08/31/16 08:45; Admin Dose 5 MG; Start 08/29/16 at 09:00; Status Future Hold Imipenem/ Cilastatin Sodium 100 ml @ 100 mls/hr Q12 IVPB Last administered on 09/02/16 08:58; Admin Dose 100 MLS/HR; Start 08/29/16 at 21:00 Norepinephrine 16 mg/Dextrose 500 ml @ 1.87 mls/hr TITRATE IV Last administered on 08/30/16 05:49; Admin Dose 7.5 MLS/HR; Start 08/30/16 at 01:30 Propofol (Diprivan) 100 ml @ 2.136 mls/ hr Q12H IV Last administered on 08:58; Admin Dose 8.544 MLS/HR; Start 08/31/16 at 09:00 Mupirocin (Bactroban) 1 applic BID TOP Last administered on 09/02/16 09:03; Admin Dose 1 APPLIC; Start 08/31/16 at 11:00; Stop 09/07/16 at 10:59 Morphine Sulfate (morphine) 2 mg Q2H PRN IV PAIN Last administered on 09/01/16 10:22; Admin Dose 2 MG; Start 09/01/16 at 01:30 Insulin Aspart (Novolog Insulin Pen) NOVOLOG *MODERATE* ALGORITHM Q4 SC Last administered on 09/02/16 17:34; Admin Dose 2 UNIT; Start 09/01/16 at 09:00 Pantoprazole (Protonix Iv) 40 mg DAILY@06 IV Last administered on 09/02/16 05: 05; Admin Dose 40 MG; Start 09/02/16 at 06:00 Digoxin (Digoxin) 0.125 mg Q2D@13 PO ; Start 09/03/16 at 13:00 YANIRA HART MD Sep 02, 2016 20:06
[2016-09-03] VITALS (20 sets, daily range): BP systolic 97–128; BP diastolic 40–56; PULSE 60–65; RESP 18–26
[2016-09-03] MEDS: INSULIN ASPART [NOVOLOG] 3 ML PEN SC SCH ×6 (01:00→20:59)
[2016-09-03] MEDS: PANTOPRAZOLE 40 MG INJ IV SCH (05:08)
[2016-09-03 06:24] LABS: ADD SCAN DIFF NO
[2016-09-03 06:29] LABS: ABNORMAL IP MESSAGE 1; BASOPHILS % 0.2 % (0.0-2.0); EOSINOPHILS # 0.2 10^3/ul (0.0-0.5); EOSINOPHILS % 3.1 % (0.0-7.0); HEMATOCRIT 33.3 % (42.0-52.0); HEMOGLOBIN 9.3 g/dl (14.0-18.0); LYMPHOCYTES # 0.9 10^3/ul (0.8-2.9); LYMPHOCYTES % 14.5 % (15.0-51.0); MEAN CORPUSCULAR HEMOGLOBIN 25.3 pg (29.0-33.0); MEAN CORPUSCULAR HGB CONC 27.9 g/dl (32.0-37.0); MEAN CORPUSCULAR VOLUME 90.7 fl (82.0-101.0); MEAN PLATELET VOLUME 10.9 fl (7.4-10.4); MONOCYTE # 0.6 10^3/ul (0.3-0.9); MONOCYTES % 9.3 % (0.0-11.0); NEUTROPHIL # 4.5 10^3/ul (1.6-7.5); NEUTROPHILS % 72.6 % (39.0-77.0); NUCLEATED RED BLOOD CELLS # 0.1 10^3/ul (0.0-0.0); PLATELET COUNT 113 10^3/UL (140-415); RED BLOOD COUNT 3.67 10^6/ul (4.70-6.10); RED CELL DISTRIBUTION WIDTH 25.4 % (11.5-14.5); WHITE BLOOD COUNT 6.2 10^3/ul (4.8-10.8)
[2016-09-03 06:56] LABS: ALBUMIN 3.4 g/dl (3.3-4.9); ALBUMIN/GLOBULIN RATIO 1.09; BILIRUBIN,INDIRECT 0.8 mg/dl (0-1.1); BILIRUBIN,TOTAL 0.8 mg/dl (0.2-1.3); CALCIUM 8.7 mg/dl (8.4-10.2); CREATININE 0.89 mg/dl (0.61-1.24); MAGNESIUM 1.7 mg/dl (1.7-2.5); POTASSIUM 3.5 mmol/L (3.5-5.1); TOTAL PROTEIN 6.5 g/dl (6.1-8.1)
[2016-09-03] MEDS: PROPOFOL 100 ML IV SCH (09:00)
[2016-09-03] MEDS: SUCRALFATE 1 GM TAB PO SCH ×4 (09:24→20:59)
[2016-09-03] MEDS: IMIPENEM-CILAST 500MG IV (PMX) 100 ML IVPB SCH (09:24)
[2016-09-03] MEDS: MUPIROCIN 2% 15 GM CR TOP SCH (09:28)
[2016-09-03] MEDS: INSULIN GLARGINE [LANtus] 3 ML PEN SC SCH (09:31)
--- NOTE | 2016-09-03 09:38 | CONS ---
Date/Time of Note Date/Time of Note DATE: 09/03/16 TIME: 09:36 Consult Date/Type/Reason Admit Date/Time Aug 27, 2016 at 21:25 Type of Consultation: pulmonary ICU Ordering Provider: BOLA SOLO Subjective Patient extubated yesterday awake alert and oriented this morning comfortable at rest no respiratory distress Nasogastric tube in place Currently hemodynamically stable Objective Vital Signs Date Time Temp Pulse Resp B/P Pulse Ox O2 Delivery O2 Flow Rate FiO2 09/03/16 08:00 63 09/03/16 07:00 23 99/42 100 Nasal Cannula 09/03/16 04:00 98.2 09/03/16 01:36 3.0 09/02/16 11:08 30 Intake and Output 09/02/16 09/02/16 09/03/16 15:00 23:00 07:00 Intake Total 250.472 ml 780 ml 310 ml Output Total 680 ml 3825 ml 315 ml Balance -429.528 ml -3045 ml -5 ml Exam PHYSICAL EXAMINATION GENERAL: Elderly gentleman, awake alert comfortable VITAL SIGNS: see below. HEENT: Pupils equal, round, and reactive to light. Dry mucous membranes CARDIAC: S1, S2, 2/6 systolic ejection murmur CHEST: Diminished air entry bilaterally. ABDOMEN: Mildly distended. Bowel sounds present no guarding rebound. EXTREMITIES: No cyanosis, clubbing, edema +1 NEUROLOGIC: Unable to assess currently sedated Results/Medications Result Diagram: 09/03/16 0530 09/03/16 0531 Results 24 hrs Laboratory Tests Test 09/02/16 11:45 09/02/16 13:30 09/02/16 17:31 09/02/16 20:31 Blood Gas Specimen Source Blood arterial Arterial Blood Date Drawn 09/02/2016 11:50:05 AM Arterial Blood pH (Temp corrected) 7.523 H Arterial Blood pCO2 (Temp correct) 43.3 Arterial Blood pO2 (Temp corrected) 114.8 H Arterial Blood HCO3 34.8 H Arterial Blood Base Excess 10.9 H Arterial Blood Oxygen Saturation 97.9 Sebastien Test ACCEPTAB Arterial Blood Gas Puncture Site Right Radial Arterial Blood Carboxyhemoglobin 0.3 Arterial Blood Methemoglobin 0.6 Blood Gas A-a O2 Differential 48.2 H Oxyhemoglobin Percent 97.0 Total Hemoglobin 11.0 L Blood Gas Temperature 37.0 Blood Gas Actual Respiration Rate 32 Blood Gas Modality VENT - CPAP FiO2 30.0 Blood Gas Low PEEP Setting 5.0 Blood Gas Pressure Support 10 Blood Gas Notified Whom JLD Blood Gas Notified Time 09/02/2016 12:04:43 PM Bedside Glucose 89 144 110 Test 09/03/16 01:16 09/03/16 05:08 09/03/16 05:30 09/03/16 05:31 Bedside Glucose 113 121 White Blood Count 6.2 # Red Blood Count 3.67 L Hemoglobin 9.3 L Hematocrit 33.3 L Mean Corpuscular Volume 90.7 Mean Corpuscular Hemoglobin 25.3 L Mean Corpuscular Hemoglobin Concent 27.9 L Red Cell Distribution Width 25.4 H Platelet Count 113 L Mean Platelet Volume 10.9 H Neutrophils % 72.6 Lymphocytes % 14.5 L Monocytes % 9.3 Eosinophils % 3.1 Basophils % 0.2 Nucleated Red Blood Cells % 1.0 H Neutrophils # 4.5 Lymphocytes # 0.9 Monocytes # 0.6 Eosinophils # 0.2 Basophils # 0.0 Nucleated Red Blood Cells # 0.1 H Sodium Level 143 Potassium Level 3.5 Chloride Level 104 Carbon Dioxide Level 34 H Anion Gap 9 Blood Urea Nitrogen 31 H Creatinine 0.89 Glucose Level 111 Calcium Level 8.7 Magnesium Level 1.7 Total Bilirubin 0.8 Direct Bilirubin 0.00 Indirect Bilirubin 0.8 Aspartate Amino Transf (AST/SGOT) 41 Alanine Aminotransferase (ALT/SGPT) 69 Alkaline Phosphatase 142 H Total Protein 6.5 Albumin 3.4 Globulin 3.10 Albumin/Globulin Ratio 1.09 Medications Current Medications Acetaminophen (Tylenol Tab) 650 mg Q6H PRN PO PAIN AND OR ELEVATED TEMP; Start 08/27/16 at 23:00 Insulin Glargine (Lantus) 10 unit QAM SC Last administered on 09/03/16t 09:31; Admin Dose 10 UNIT; Start 08/28/16 at 09:00 Ondansetron HCl (Zofran Inj) 4 mg Q6H PRN IV NAUSEA AND/OR VOMITING; Start at 23:00 Miscellaneous Information 1 ea NOTE XX ; Start 08/27/16 at 23:00 Glucose (Glutose) 15 gm Q15M PRN PO DECREASED GLUCOSE; Start 08/27/16 at 23:00 Glucose (Glutose) 22.5 gm Q15M PRN PO DECREASED GLUCOSE; Start 08/27/16 at 23: 00 Dextrose (D50w Syringe) 25 ml Q15M PRN IV DECREASED GLUCOSE Last administered on 08/30/16 06:26; Admin Dose 25 ML; Start 08/27/16 at 23:00 Dextrose (D50w Syringe) 50 ml Q15M PRN IV DECREASED GLUCOSE; Start 08/27/16 at 23:00 Glucagon (Glucagen) 1 mg Q15M PRN IM DECREASED GLUCOSE; Start 08/27/16 at 23:00 Glucose (Glutose) 15 gm Q15M PRN BUCCAL DECREASED GLUCOSE; Start 08/27/16 at 23 :00 Carvedilol (Coreg) 3.125 mg BID PO Last administered on 08/29/16 09:54; Admin Dose 3.125 MG; Start 08/28/16 at 09:00; Status Future Hold Isosorbide Dinitrate (Isordil) 10 mg TID PO Last administered on 08/29/16 09:54 ; Admin Dose 10 MG; Start 08/28/16 at 09:00; Status Future Hold Sucralfate (Carafate) 1 gm QID PO Last administered on 09/03/16 09:24; Admin Dose 1 GM; Start 08/28/16 at 09:00 Amiodarone HCl (Cordarone) 200 mg DAILY PO Last administered on 08/29/16 09:53 ; Admin Dose 200 MG; Start 08/29/16 at 09:00; Status Future Hold Hydralazine HCl (Apresoline) 10 mg Q8 PO Last administered on 08/29/16 05:52; Admin Dose 10 MG; Start 08/28/16 at 22:00; Status Future Hold Metolazone 5 mg 5 mg DAILY PO Last administered on 08/31/16 08:45; Admin Dose 5 MG; Start 08/29/16 at 09:00; Status Future Hold Imipenem/ Cilastatin Sodium 100 ml @ 100 mls/hr Q12 IVPB Last administered on 09/03/16 09:24; Admin Dose 100 MLS/HR; Start 08/29/16 at 21:00 Norepinephrine 16 mg/Dextrose 500 ml @ 1.87 mls/hr TITRATE IV Last administered on 08/30/16 05:49; Admin Dose 7.5 MLS/HR; Start 08/30/16 at 01:30 Propofol (Diprivan) 100 ml @ 2.136 mls/ hr Q12H IV Last administered on 08:58; Admin Dose 8.544 MLS/HR; Start 08/31/16 at 09:00 Mupirocin (Bactroban) 1 applic BID TOP Last administered on 09/03/16 09:28; Admin Dose 1 APPLIC; Start 08/31/16 at 11:00; Stop 09/07/16 at 10:59 Morphine Sulfate (morphine) 2 mg Q2H PRN IV PAIN Last administered on 09/01/16 10:22; Admin Dose 2 MG; Start 09/01/16 at 01:30 Insulin Aspart (Novolog Insulin Pen) NOVOLOG *MODERATE* ALGORITHM Q4 SC Last administered on 09/02/16 17:34; Admin Dose 2 UNIT; Start 09/01/16 at 09:00 Pantoprazole (Protonix Iv) 40 mg DAILY@06 IV Last administered on 09/03/16 05: 08; Admin Dose 40 MG; Start 09/02/16 at 06:00 Digoxin (Digoxin) 0.125 mg Q2D@13 PO ; Start 09/03/16 at 13:00 Assessment/Plan Chief Complaint/Hosp Course IMPRESSION: 1. Status post shock likely combination of sepsis and cardiogenic 2. Altered mental status likely due to his underlying shock and uremia 3. Renal Failure requiring hemodialysis 4. Acute Hypercapnic resp failure--secondary to shock and ARF 5. Anemia RECOMMENDATIONS: 1. Continue incentive spirometry and bronchodilators 2. Hemodialysis per nephrology consider holding 3. Abx per ID, consider de-escalation 4. Aspiration precautions speech therapy recommendations 5. F/U cx's 6. Cardiac recommendations Disposition Transfer to telemetry okay from pulmonary standpoint Problems: HERMAN CARDENAS MD, [facility] Sep 03, 2016 09:38
--- NOTE | 2016-09-03 09:59 | PN ---
Date/Time of Note Date/Time of Note DATE: 09/03/16 TIME: 09:54 Assessment/Plan VTE Prophylaxis VTE Prophylaxis Intervention: SCD's Lines/Catheters IV Catheter Type (from Nrs): Peripheral IV Urinary Cath still in place: Yes Reason Cath still needed: other (indicate) (will d/c) Assessment/Plan Assessment/Plan An 81-year-old male with the following medical problems: 1. Severe sepsis with lactic acidosis secondary to #2: improving 2. Urinary tract infection. 3. 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 4. Acute respiratory failure successfully extubated 09/02/16 / stable on NC 5. Congestive heart failure and chronic kidney disease causing volume overload causing respiratory failure. 6. Diabetes mellitus type 2 : 7. Paroxysmal atrial fibrillation. 8. Coronary artery disease status post coronary artery bypass graft. 9. Ischemic cardiomyopathy. Last known EF of 25%, status post automatic implantable cardioverter/defibrillator. 10. 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 11. Chronic liver cirrhosis with coagulopathy with Mild hyperbilirubinemia with transaminitis 12. Methicillin-resistant Staphylococcus aureus, nares. s/p 7 days of bactroban PLAN: 1. Patient is stable for downgrade to tele 2. Continue pulm toilet and weaning of o2 3. Continue hemodialysis per renal. The patient needs continued volume removal. 4. Continue broad-spectrum antibiotics. 5. Started on puree diet today and awaiting PT eval 6. Titrate insulin therapy as indicated PROPHYLAXIS: SCDs only for now as the patient is still coagulopathic / PPI as well (the patent was on Eliquis prior to admission for Afib). CRITICAL CARE TIME: >35 mins Subjective 24 Hr Interval Summary Free Text/Dictation Patient seen and examined. asking for food denies pain Exam/Review of Systems Vital Signs Vitals Vital Signs Date Time Temp Pulse Resp B/P Pulse Ox O2 Delivery O2 Flow Rate FiO2 09/03/16 08:00 63 09/03/16 07:00 23 99/42 100 Nasal Cannula 09/03/16 04:00 98.2 09/03/16 01:36 3.0 09/02/16 11:08 30 Intake and Output 09/02/16 09/02/16 09/03/16 14:59 22:59 06:59 Intake Total 262.477 ml 780 ml 345 ml Output Total 680 ml 3825 ml 390 ml Balance -417.523 ml -3045 ml -45 ml Exam Constitutional: alert, frail, oriented Head: atraumatic, normocephalic Eyes: PERRL ENMT: mucosa pink and moist Respiratory: crackles/rales (minimal), diminished breath sounds Cardiovascular: regular rate and rhythm Gastrointestinal: bowel sounds, non-tender, soft Neurological: lethargic, No confused Results Result Diagram: 09/03/16 0530 09/03/16 0531 Results 24 hrs Laboratory Tests Test 09/02/16 11:45 09/02/16 13:30 09/02/16 17:31 09/02/16 20:31 Blood Gas Specimen Source Blood arterial Arterial Blood Date Drawn 09/02/2016 11:50:05 AM Arterial Blood pH (Temp corrected) 7.523 H Arterial Blood pCO2 (Temp correct) 43.3 Arterial Blood pO2 (Temp corrected) 114.8 H Arterial Blood HCO3 34.8 H Arterial Blood Base Excess 10.9 H Arterial Blood Oxygen Saturation 97.9 Sebastien Test ACCEPTAB Arterial Blood Gas Puncture Site Right Radial Arterial Blood Carboxyhemoglobin 0.3 Arterial Blood Methemoglobin 0.6 Blood Gas A-a O2 Differential 48.2 H Oxyhemoglobin Percent 97.0 Total Hemoglobin 11.0 L Blood Gas Temperature 37.0 Blood Gas Actual Respiration Rate 32 Blood Gas Modality VENT - CPAP FiO2 30.0 Blood Gas Low PEEP Setting 5.0 Blood Gas Pressure Support 10 Blood Gas Notified Whom JLD Blood Gas Notified Time 09/02/2016 12:04:43 PM Bedside Glucose 89 144 110 Test 09/03/16 01:16 09/03/16 05:08 09/03/16 05:30 09/03/16 05:31 Bedside Glucose 113 121 White Blood Count 6.2 # Red Blood Count 3.67 L Hemoglobin 9.3 L Hematocrit 33.3 L Mean Corpuscular Volume 90.7 Mean Corpuscular Hemoglobin 25.3 L Mean Corpuscular Hemoglobin Concent 27.9 L Red Cell Distribution Width 25.4 H Platelet Count 113 L Mean Platelet Volume 10.9 H Neutrophils % 72.6 Lymphocytes % 14.5 L Monocytes % 9.3 Eosinophils % 3.1 Basophils % 0.2 Nucleated Red Blood Cells % 1.0 H Neutrophils # 4.5 Lymphocytes # 0.9 Monocytes # 0.6 Eosinophils # 0.2 Basophils # 0.0 Nucleated Red Blood Cells # 0.1 H Sodium Level 143 Potassium Level 3.5 Chloride Level 104 Carbon Dioxide Level 34 H Anion Gap 9 Blood Urea Nitrogen 31 H Creatinine 0.89 Glucose Level 111 Calcium Level 8.7 Magnesium Level 1.7 Total Bilirubin 0.8 Direct Bilirubin 0.00 Indirect Bilirubin 0.8 Aspartate Amino Transf (AST/SGOT) 41 Alanine Aminotransferase (ALT/SGPT) 69 Alkaline Phosphatase 142 H Total Protein 6.5 Albumin 3.4 Globulin 3.10 Albumin/Globulin Ratio 1.09 Test 09/03/16 09:27 Bedside Glucose 128 Medications Medications Current Medications Acetaminophen (Tylenol Tab) 650 mg Q6H PRN PO PAIN AND OR ELEVATED TEMP; Start 08/27/16 at 23:00 Insulin Glargine (Lantus) 10 unit QAM SC Last administered on 09/03/16 09:31; Admin Dose 10 UNIT; Start 08/28/16 at 09:00 Ondansetron HCl (Zofran Inj) 4 mg Q6H PRN IV NAUSEA AND/OR VOMITING; Start at 23:00 Miscellaneous Information 1 ea NOTE XX ; Start 08/27/16 at 23:00 Glucose (Glutose) 15 gm Q15M PRN PO DECREASED GLUCOSE; Start 08/27/16 at 23:00 Glucose (Glutose) 22.5 gm Q15M PRN PO DECREASED GLUCOSE; Start 08/27/16 at 23: 00 Dextrose (D50w Syringe) 25 ml Q15M PRN IV DECREASED GLUCOSE Last administered on 08/30/16 06:26; Admin Dose 25 ML; Start 08/27/16 at 23:00 Dextrose (D50w Syringe) 50 ml Q15M PRN IV DECREASED GLUCOSE; Start 08/27/16 at 23:00 Glucagon (Glucagen) 1 mg Q15M PRN IM DECREASED GLUCOSE; Start 08/27/16 at 23:00 Glucose (Glutose) 15 gm Q15M PRN BUCCAL DECREASED GLUCOSE; Start 08/27/16 at 23 :00 Carvedilol (Coreg) 3.125 mg BID PO Last administered on 08/29/16 09:54; Admin Dose 3.125 MG; Start 08/28/16 at 09:00; Status Future Hold Isosorbide Dinitrate (Isordil) 10 mg TID PO Last administered on 08/29/16 09:54 ; Admin Dose 10 MG; Start 08/28/16 at 09:00; Status Future Hold Sucralfate (Carafate) 1 gm QID PO Last administered on 09/03/16 09:24; Admin Dose 1 GM; Start 08/28/16 at 09:00 Amiodarone HCl (Cordarone) 200 mg DAILY PO Last administered on 08/29/16 09:53 ; Admin Dose 200 MG; Start 08/29/16 at 09:00; Status Future Hold Hydralazine HCl (Apresoline) 10 mg Q8 PO Last administered on 08/29/16 05:52; Admin Dose 10 MG; Start 08/28/16 at 22:00; Status Future Hold Metolazone 5 mg 5 mg DAILY PO Last administered on 08/31/16 08:45; Admin Dose 5 MG; Start 08/29/16 at 09:00; Status Future Hold Imipenem/ Cilastatin Sodium 100 ml @ 100 mls/hr Q12 IVPB Last administered on 09/03/16 09:24; Admin Dose 100 MLS/HR; Start 08/29/16 at 21:00 Norepinephrine 16 mg/Dextrose 500 ml @ 1.87 mls/hr TITRATE IV Last administered on 08/30/16 05:49; Admin Dose 7.5 MLS/HR; Start 08/30/16 at 01:30 Propofol (Diprivan) 100 ml @ 2.136 mls/ hr Q12H IV Last administered on 08:58; Admin Dose 8.544 MLS/HR; Start 08/31/16 at 09:00 Mupirocin (Bactroban) 1 applic BID TOP Last administered on 09/03/16 09:28; Admin Dose 1 APPLIC; Start 08/31/16 at 11:00; Stop 09/07/16 at 10:59 Morphine Sulfate (morphine) 2 mg Q2H PRN IV PAIN Last administered on 09/01/16 10:22; Admin Dose 2 MG; Start 09/01/16 at 01:30 Insulin Aspart (Novolog Insulin Pen) NOVOLOG *MODERATE* ALGORITHM Q4 SC Last administered on 09/02/16 17:34; Admin Dose 2 UNIT; Start 09/01/16 at 09:00 Pantoprazole (Protonix Iv) 40 mg DAILY@06 IV Last administered on 09/03/16t 05: 08; Admin Dose 40 MG; Start 09/02/16 at 06:00 Digoxin (Digoxin) 0.125 mg Q2D@13 PO ; Start 09/03/16 at 13:00 BOLA SOLO Sep 03, 2016 09:59
[2016-09-03] MEDS ORDERED: GLUCAGON 1 MG INJ IM PRN (11:00)
[2016-09-03] MEDS ORDERED: GLUCOSE GEL 15 GRAM TUBE PO PRN ×2 (11:00)
[2016-09-03] MEDS ORDERED: GLUCOSE GEL 15 GRAM TUBE BUCCAL PRN (11:00)
[2016-09-03] MEDS: ASCORBIC ACID 500 MG TAB PO SCH (11:03)
[2016-09-03] MEDS: ZINC SULFATE 220 MG CAP PO SCH (11:03)
[2016-09-03] MEDS: MULTIVITAMINS THERAPEUTIC TAB PO SCH (11:03)
[2016-09-03] MEDS: ASPIRIN 81 MG TAB PO SCH (11:03)
--- NOTE | 2016-09-03 11:03 | CONS ---
Date/Time of Note Date/Time of Note DATE: 09/03/16 TIME: 10:59 Assessment/Plan Assessment/Plan Chief Complaint/Hosp Course IMp: 1.CHF-systolic acute on chronic 2.Hypotension-Levo just turned off 3.REnal failurwe s/p HD 4.Cardiomyopathy with low EF 5.AICD 6.H/O cad s/p cabg 7.PAF 8.Coagulopathy-overall improved 9. Resp failure-improved s/p extubation Recc: -Tele -Continue abx's and f/'u cx data -HD for volume removal -Continue digoxin -Follow BP clsoely and if remains stable will slowly resume BB/hydralazine afterload reduction -Lisandra mancuso to resume Eliquis at this time Problems: Consultation Date/Type/Reason Admit Date/Time Aug 27, 2016 at 21:25 Initial Consult Date 08/28/2016 Type of Consultation: Cardiology Reason for Consultation CHF/cardiomyopathy Referring Provider: BOLA SOLO Exam/Review of Systems Vital Signs Vitals Vital Signs Date Time Temp Pulse Resp B/P Pulse Ox O2 Delivery O2 Flow Rate FiO2 09/03/16 10:00 60 26 98/48 100 Nasal Cannula 09/03/16 08:00 98.0 2.0 09/02/16 11:08 30 Intake and Output 09/02/16 09/02/16 09/03/16 15:00 23:00 07:00 Intake Total 250.472 ml 780 ml 310 ml Output Total 680 ml 3825 ml 315 ml Balance -429.528 ml -3045 ml -5 ml Exam Review of Systems: CONSTITUTIONAL: No fevers, chills. PULMONARY: No sob CARDIOVASCULAR: No chest pain/palpitations GASTROINTESTINAL: No nausea/vomiting. GENITOURINARY: No hematuria/dysuria. MUSCULOSKELETAL: No myagias/arthalgias. PSYCHIATRIC: The patient denies depression. NEUROLOGIC: Generalized weakness Constitutional: alert Psych: no complaints Head: normocephalic ENMT: mucosa pink and moist Neck: jvd (9 cm water), supple Respiratory: diminished breath sounds (at bases/B) Cardiovascular: regular rate and rhythm Gastrointestinal: non-tender, soft Musculoskeletal: muscle tone Extremities: edema (trace/B), normal pulses Neurological: lethargic Results Result Diagram: 09/03/1652909/03/1631 Results 24 hrs Laboratory Tests Test 09/02/16 11:45 09/02/16 13:30 09/02/16 17:31 09/02/16 20:31 Blood Gas Specimen Source Blood arterial Arterial Blood Date Drawn 09/02/2016 11:50:05 AM Arterial Blood pH (Temp corrected) 7.523 H Arterial Blood pCO2 (Temp correct) 43.3 Arterial Blood pO2 (Temp corrected) 114.8 H Arterial Blood HCO3 34.8 H Arterial Blood Base Excess 10.9 H Arterial Blood Oxygen Saturation 97.9 Sebastien Test ACCEPTAB Arterial Blood Gas Puncture Site Right Radial Arterial Blood Carboxyhemoglobin 0.3 Arterial Blood Methemoglobin 0.6 Blood Gas A-a O2 Differential 48.2 H Oxyhemoglobin Percent 97.0 Total Hemoglobin 11.0 L Blood Gas Temperature 37.0 Blood Gas Actual Respiration Rate 32 Blood Gas Modality VENT - CPAP FiO2 30.0 Blood Gas Low PEEP Setting 5.0 Blood Gas Pressure Support 10 Blood Gas Notified Whom JLD Blood Gas Notified Time 09/02/2016 12:04:43 PM Bedside Glucose 89 144 110 Test 09/03/16 01:16 09/03/16 05:08 09/03/16 05:30 09/03/16 05:31 Bedside Glucose 113 121 White Blood Count 6.2 # Red Blood Count 3.67 L Hemoglobin 9.3 L Hematocrit 33.3 L Mean Corpuscular Volume 90.7 Mean Corpuscular Hemoglobin 25.3 L Mean Corpuscular Hemoglobin Concent 27.9 L Red Cell Distribution Width 25.4 H Platelet Count 113 L Mean Platelet Volume 10.9 H Neutrophils % 72.6 Lymphocytes % 14.5 L Monocytes % 9.3 Eosinophils % 3.1 Basophils % 0.2 Nucleated Red Blood Cells % 1.0 H Neutrophils # 4.5 Lymphocytes # 0.9 Monocytes # 0.6 Eosinophils # 0.2 Basophils # 0.0 Nucleated Red Blood Cells # 0.1 H Sodium Level 143 Potassium Level 3.5 Chloride Level 104 Carbon Dioxide Level 34 H Anion Gap 9 Blood Urea Nitrogen 31 H Creatinine 0.89 Glucose Level 111 Calcium Level 8.7 Magnesium Level 1.7 Total Bilirubin 0.8 Direct Bilirubin 0.00 Indirect Bilirubin 0.8 Aspartate Amino Transf (AST/SGOT) 41 Alanine Aminotransferase (ALT/SGPT) 69 Alkaline Phosphatase 142 H Total Protein 6.5 Albumin 3.4 Globulin 3.10 Albumin/Globulin Ratio 1.09 Test 09/03/16 09:27 Bedside Glucose 128 Medications Medications Current Medications Acetaminophen (Tylenol Tab) 650 mg Q6H PRN PO PAIN AND OR ELEVATED TEMP; Start 08/27/16 at 23:00 Insulin Glargine (Lantus) 10 unit QAM SC Last administered on 09/03/16 09:31; Admin Dose 10 UNIT; Start 08/28/16 at 09:00 Ondansetron HCl (Zofran Inj) 4 mg Q6H PRN IV NAUSEA AND/OR VOMITING; Start at 23:00 Carvedilol (Coreg) 3.125 mg BID PO Last administered on 08/29/16 09:54; Admin Dose 3.125 MG; Start 08/28/16 at 09:00; Status Future Hold Isosorbide Dinitrate (Isordil) 10 mg TID PO Last administered on 08/29/16 09:54 ; Admin Dose 10 MG; Start 08/28/16 at 09:00; Status Future Hold Sucralfate 1 gm 1 gm QID PO Last administered on 09/03/16 09:24; Admin Dose 1 GM; Start 08/28/16 at 09:00 Imipenem/ Cilastatin Sodium (Primaxin 500 Mg/ 100 ml (Pmx)) 100 ml @ 100 mls/ hr Q12 IVPB Last administered on 09/03/16 09:24; Admin Dose 100 MLS/HR; Start 08/29/16 at 21:00 Morphine Sulfate (morphine) 2 mg Q2H PRN IV PAIN Last administered on 09/01/16 10:22; Admin Dose 2 MG; Start 09/01/16 at 01:30 Insulin Aspart (Novolog Insulin Pen) NOVOLOG *MODERATE* ALGORITHM Q4 SC Last administered on 09/02/16 17:34; Admin Dose 2 UNIT; Start 09/01/16 at 09:00 Pantoprazole (Protonix Iv) 40 mg DAILY@06 IV Last administered on 09/03/16 05: 08; Admin Dose 40 MG; Start 09/02/16 at 06:00 Digoxin (Digoxin) 0.125 mg Q2D@13 PO ; Start 09/03/16 at 13:00 Ascorbic Acid (Vitamin C) 500 mg DAILY PO ; Start 09/03/16 at 10:30 Aspirin (Aspirin) 81 mg DAILY PO ; Start 09/03/16 at 10:30 Docusate Sodium (Colace) 200 mg QHS PO ; Start 09/03/16 at 21:00 Zinc Sulfate (Zinc Sulfate) 220 mg DAILY PO ; Start 09/03/16 at 10:30 Multivitamins Therapeutic (Theragran) 1 tab DAILY PO ; Start 09/03/16 at 10:30 Miscellaneous Information 1 ea NOTE XX ; Start 09/03/16 at 11:00 Glucose (Glutose) 15 gm Q15M PRN PO DECREASED GLUCOSE; Start 09/03/16 at 11:00 Glucose (Glutose) 22.5 gm Q15M PRN PO DECREASED GLUCOSE; Start 09/03/16 at 11:00 Dextrose (D50w Syringe) 25 ml Q15M PRN IV DECREASED GLUCOSE; Start 09/03/16 at 11:00 Dextrose (D50w Syringe) 50 ml Q15M PRN IV DECREASED GLUCOSE; Start 09/03/16 at 11:00 Glucagon (Glucagen) 1 mg Q15M PRN IM DECREASED GLUCOSE; Start 09/03/16 at 11:00 Glucose (Glutose) 15 gm Q15M PRN BUCCAL DECREASED GLUCOSE; Start 09/03/16 at 11: 00 Miscellaneous Information (*Rx Drug Level Order Reminder*) VANCO RANDOM LEVEL... ONCE ONCE XX ; Start 09/04/16 at 05:00; Stop 09/04/16 at 05:01 POLI SAN Sep 03, 2016 11:03
[2016-09-03] MEDS ORDERED: DIGOXIN 0.05 MG/ML GTB SCH (13:00)
[2016-09-03] MEDS: DIGOXIN 0.125 MG TAB PO SCH (13:48)
--- NOTE | 2016-09-03 14:04 | PN ---
DATE: 09/03/2016 SUBJECTIVE: No events. The patient is lying comfortably in bed. No fevers. WBC 6.2, H and H 9.3 and 33.3, platelets 113, neutrophils 72.6, BUN 31, creatinine 0.89. INDWELLINGS: Right IJ Fidel and Gan catheters. ANTIMICROBIALS: The patient is on vancomycin and imipenem. PHYSICAL EXAMINATION: GENERAL: This is a well-developed, fragile, elderly man who is awake, in no distress. HEENT: Head atraumatic, normocephalic. Sclerae anicteric. Buccal mucosa dry. NECK: Supple, trachea midline. CHEST: Rise symmetrical. Breath sounds diminished to bases. HEART: S1, S2. ABDOMEN: Soft. Bowel tones present. EXTREMITIES: Without cyanosis. Bilateral edema. ASSESSMENT: 1. Resolving sepsis status post shock. 2. Status post urinary tract infection. 3. Status post acute respiratory failure, extubated. 4. Fluid overload. 5. Acute on chronic kidney disease. 6. History of coronary artery bypass graft. PLAN: The patient remains stable. We are going to discontinue his antibiotics and observe him. We will panculture him p.r.n. if he spikes fever. Dictated By: ADA MICHELLE THREAD CLIPPER for CHUNG HUBBARD/NTS Conf#: [id number] DID#: [id number]
[2016-09-03] MEDS: DOCUSATE SODIUM 100 MG CAP PO SCH (20:59)
--- NOTE | 2016-09-03 20:59 | CONS ---
Date/Time of Note Date/Time of Note DATE: 09/03/16 TIME: 20:57 Assessment/Plan Assessment/Plan Chief Complaint/Hosp Course SYSTOLIC HEART FAILURE better JAZLYN ON CKD LOW EF ASHD DM HX CAD AICD PLACEMENT s/p anasarca PLAN hd mwf Problems: Consultation Date/Type/Reason Admit Date/Time Aug 27, 2016 at 21:25 Initial Consult Date doing fine on hd labs seen ch chf will need Type of Consultation: Cardiology Referring Provider: BOLA SOLO Exam/Review of Systems Vital Signs Vitals Vital Signs Date Time Temp Pulse Resp B/P Pulse Ox O2 Delivery O2 Flow Rate FiO2 09/03/16 20:22 60 09/03/16 18:15 3.0 09/03/16 16:03 97.7 18 116/56 96 09/03/16 15:00 Room Air 09/02/16 11:08 30 Intake and Output 09/02/16 09/02/16 09/03/16 15:00 23:00 07:00 Intake Total 250.472 ml 780 ml 310 ml Output Total 680 ml 3825 ml 315 ml Balance -429.528 ml -3045 ml -5 ml Exam Neck: supple Respiratory: clear to auscultation Cardiovascular: regular rate and rhythm Gastrointestinal: soft Musculoskeletal: nl extremities to inspection Results Result Diagram: 09/03/16 0530 09/03/16 0531 Results 24 hrs Laboratory Tests Test 09/03/16 01:16 09/03/16 05:08 09/03/16 05:30 09/03/16 05:31 Bedside Glucose 113 121 White Blood Count 6.2 # Red Blood Count 3.67 L Hemoglobin 9.3 L Hematocrit 33.3 L Mean Corpuscular Volume 90.7 Mean Corpuscular Hemoglobin 25.3 L Mean Corpuscular Hemoglobin Concent 27.9 L Red Cell Distribution Width 25.4 H Platelet Count 113 L Mean Platelet Volume 10.9 H Neutrophils % 72.6 Lymphocytes % 14.5 L Monocytes % 9.3 Eosinophils % 3.1 Basophils % 0.2 Nucleated Red Blood Cells % 1.0 H Neutrophils # 4.5 Lymphocytes # 0.9 Monocytes # 0.6 Eosinophils # 0.2 Basophils # 0.0 Nucleated Red Blood Cells # 0.1 H Sodium Level 143 Potassium Level 3.5 Chloride Level 104 Carbon Dioxide Level 34 H Anion Gap 9 Blood Urea Nitrogen 31 H Creatinine 0.89 Glucose Level 111 Calcium Level 8.7 Magnesium Level 1.7 Total Bilirubin 0.8 Direct Bilirubin 0.00 Indirect Bilirubin 0.8 Aspartate Amino Transf (AST/SGOT) 41 Alanine Aminotransferase (ALT/SGPT) 69 Alkaline Phosphatase 142 H Total Protein 6.5 Albumin 3.4 Globulin 3.10 Albumin/Globulin Ratio 1.09 Test 09/03/16 09:27 09/03/16 13:45 09/03/16 17:36 Bedside Glucose 128 129 112 Medications Medications Current Medications Acetaminophen (Tylenol Tab) 650 mg Q6H PRN PO PAIN AND OR ELEVATED TEMP; Start 08/27/16 at 23:00 Insulin Glargine (Lantus) 10 unit QAM SC Last administered on 09/03/16 09:31; Admin Dose 10 UNIT; Start 08/28/16 at 09:00 Ondansetron HCl (Zofran Inj) 4 mg Q6H PRN IV NAUSEA AND/OR VOMITING; Start at 23:00 Carvedilol (Coreg) 3.125 mg BID PO Last administered on 08/29/16 09:54; Admin Dose 3.125 MG; Start 08/28/16 at 09:00; Status Future Hold Isosorbide Dinitrate (Isordil) 10 mg TID PO Last administered on 08/29/16 09:54 ; Admin Dose 10 MG; Start 08/28/16 at 09:00; Status Future Hold Sucralfate (Carafate) 1 gm QID PO Last administered on 09/03/16 17:37; Admin Dose 1 GM; Start 08/28/16 at 09:00 Morphine Sulfate (morphine) 2 mg Q2H PRN IV PAIN Last administered on 09/01/16 10:22; Admin Dose 2 MG; Start 09/01/16 at 01:30 Insulin Aspart (Novolog Insulin Pen) NOVOLOG *MODERATE* ALGORITHM Q4 SC Last administered on 09/02/16 17:34; Admin Dose 2 UNIT; Start 09/01/16 at 09:00 Pantoprazole (Protonix Iv) 40 mg DAILY@06 IV Last administered on 09/03/16 05: 08; Admin Dose 40 MG; Start 09/02/16 at 06:00 Digoxin (Digoxin) 0.125 mg Q2D@13 PO Last administered on 09/03/16 13:48; Admin Dose 0.125 MG; Start 09/03/16 at 13:00 Ascorbic Acid (Vitamin C) 500 mg DAILY PO Last administered on 09/03/16 11:03; Admin Dose 500 MG; Start 09/03/16 at 10:30 Aspirin (Aspirin) 81 mg DAILY PO Last administered on 09/03/16 11:03; Admin Dose 81 MG; Start 09/03/16 at 10:30 Docusate Sodium (Colace) 200 mg QHS PO ; Start 09/03/16 at 21:00 Zinc Sulfate (Zinc Sulfate) 220 mg DAILY PO Last administered on 09/03/16 11:03 ; Admin Dose 220 MG; Start 09/03/16 at 10:30 Multivitamins Therapeutic (Theragran) 1 tab DAILY PO Last administered on 11:03; Admin Dose 1 TAB; Start 09/03/16 at 10:30 Miscellaneous Information 1 ea NOTE XX ; Start 09/03/16 at 11:00 Glucose (Glutose) 15 gm Q15M PRN PO DECREASED GLUCOSE; Start 09/03/16 at 11:00 Glucose (Glutose) 22.5 gm Q15M PRN PO DECREASED GLUCOSE; Start 09/03/16 at 11:00 Dextrose (D50w Syringe) 25 ml Q15M PRN IV DECREASED GLUCOSE; Start 09/03/16 at 11:00 Dextrose (D50w Syringe) 50 ml Q15M PRN IV DECREASED GLUCOSE; Start 09/03/16 at 11:00 Glucagon (Glucagen) 1 mg Q15M PRN IM DECREASED GLUCOSE; Start 09/03/16 at 11:00 Glucose (Glutose) 15 gm Q15M PRN BUCCAL DECREASED GLUCOSE; Start 09/03/16 at 11: 00 Mupirocin (Bactroban) 1 applic BID TOP ; Start 09/03/16 at 21:00 YANIRA HART MD Sep 03, 2016 20:58
[2016-09-03] MEDS: MUPIROCIN 2% 22 GM OINT TOP SCH (21:13)
[2016-09-04] VITALS (19 sets, daily range): BP systolic 96–114; BP diastolic 45–59; PULSE 59–66; RESP 16–20
[2016-09-04] MEDS: INSULIN ASPART [NOVOLOG] 3 ML PEN SC SCH ×6 (01:00→21:00)
[2016-09-04] MEDS: PANTOPRAZOLE 40 MG INJ IV SCH (05:48)
[2016-09-04] MEDS: SUCRALFATE 1 GM TAB PO SCH ×4 (08:42→21:00)
[2016-09-04] MEDS: ASPIRIN 81 MG TAB PO SCH (08:42)
[2016-09-04] MEDS: ZINC SULFATE 220 MG CAP PO SCH (08:42)
[2016-09-04] MEDS: MULTIVITAMINS THERAPEUTIC TAB PO SCH (08:42)
[2016-09-04] MEDS: ASCORBIC ACID 500 MG TAB PO SCH (08:42)
[2016-09-04] MEDS: INSULIN GLARGINE [LANtus] 3 ML PEN SC SCH (08:50)
[2016-09-04] MEDS: MUPIROCIN 2% 22 GM OINT TOP SCH ×2 (08:56→21:41)
--- NOTE | 2016-09-04 09:37 | RADRPT ---
PROCEDURE: XR Chest. CLINICAL INDICATION: Shortness of breath. TECHNIQUE: Single frontal view. COMPARISON: 08/31/2016. FINDINGS: The endotracheal tube and nasogastric tube have been removed. There is a right internal jugular vei n temporary dialysis catheter in satisfactory position with the tip in the cavoatrial junction regio n. There is mild pulmonary edema, slightly improved. The lungs are otherwise clear. The heart is enlarged. There is calcification in the aorta consistent with atherosclerosis. There is a single lead permanent pacemaker/internal cardiac defibrillator. There are sternal wires and me diastinal clips. There are small bilateral pleural effusions. There is no pneumothorax. IMPRESSION: 1. Slightly improved appearance of the lungs. 2. No other change from 08/31/2016. RPTAT: QQ .Eugenio Ruano MD, MD Date Time Electronically viewed and signed by .Eugenio Ruano MD, MD on 09/04/2016 09:36 .R/
[2016-09-04 11:01] LABS: ADD SCAN DIFF NO
[2016-09-04 11:12] LABS: ABNORMAL IP MESSAGE 1; BASOPHILS % 0.4 % (0.0-2.0); EOSINOPHILS # 0.2 10^3/ul (0.0-0.5); EOSINOPHILS % 5.1 % (0.0-7.0); HEMATOCRIT 31.3 % (42.0-52.0); HEMOGLOBIN 9.2 g/dl (14.0-18.0); LYMPHOCYTES # 0.8 10^3/ul (0.8-2.9); LYMPHOCYTES % 17.9 % (15.0-51.0); MEAN CORPUSCULAR HEMOGLOBIN 26.2 pg (29.0-33.0); MEAN CORPUSCULAR HGB CONC 29.4 g/dl (32.0-37.0); MEAN CORPUSCULAR VOLUME 89.2 fl (82.0-101.0); MEAN PLATELET VOLUME 9.9 fl (7.4-10.4); MONOCYTE # 0.4 10^3/ul (0.3-0.9); MONOCYTES % 9.3 % (0.0-11.0); NEUTROPHILS % 66.9 % (39.0-77.0); NUCLEATED RED BLOOD CELLS # 0.1 10^3/ul (0.0-0.0); NUCLEATED RED BLOOD CELLS% 1.1 /100WBC (0.0-0.0); PLATELET COUNT 110 10^3/UL (140-415); RED BLOOD COUNT 3.51 10^6/ul (4.70-6.10); WHITE BLOOD COUNT 4.5 10^3/ul (4.8-10.8)
[2016-09-04 11:18] LABS: ALBUMIN 3.1 g/dl (3.3-4.9)
[2016-09-04 11:21] LABS: BILIRUBIN,INDIRECT 1.2 mg/dl (0-1.1); BILIRUBIN,TOTAL 1.2 mg/dl (0.2-1.3); CREATININE 1.11 mg/dl (0.61-1.24); TOTAL PROTEIN 6.2 g/dl (6.1-8.1)
[2016-09-04 11:22] LABS: CALCIUM 8.5 mg/dl (8.4-10.2)
[2016-09-04 11:33] LABS: POTASSIUM 2.7 mmol/L (3.5-5.1)
[2016-09-04 11:38] LABS: INR 1.43; PROTIME 17.5 Sec (12.2-14.2); PT RATIO 1.4
[2016-09-04 11:39] LABS: PARTIAL THROMBOPLASTIN TIME 43.1 Sec (25.0-35.0)
[2016-09-04] MEDS ORDERED: POTASSIUM CHLORIDE 250 ML IVPB ONE (13:00)
--- NOTE | 2016-09-04 14:05 | CONS ---
Date/Time of Note Date/Time of Note DATE: 09/04/16 TIME: 14:03 Consult Date/Type/Reason Admit Date/Time Aug 27, 2016 at 21:25 Type of Consultation: pulmonary Ordering Provider: BOLA SOLO Subjective Patient stable this morning no respiratory distress Objective Vital Signs Date Time Temp Pulse Resp B/P Pulse Ox O2 Delivery O2 Flow Rate FiO2 09/04/16 12:14 59 09/04/16 11:38 97.6 19 114/55 95 09/04/16 08:00 Nasal Cannula 2.0 09/02/16 11:08 30 Intake and Output 09/03/16 09/03/16 09/04/16 15:00 23:00 07:00 Intake Total 320 ml 240 ml 200 ml Output Total 550 ml 200 ml 1600 ml Balance -230 ml 40 ml -1400 ml Exam PHYSICAL EXAMINATION GENERAL: Elderly gentleman, awake alert comfortable VITAL SIGNS: see below. HEENT: Pupils equal, round, and reactive to light. Dry mucous membranes CARDIAC: S1, S2, 2/6 systolic ejection murmur CHEST: Diminished air entry bilaterally. ABDOMEN: Mildly distended. Bowel sounds present no guarding rebound. EXTREMITIES: No cyanosis, clubbing, edema +1 NEUROLOGIC: Unable to assess currently sedated Results/Medications Result Diagram: 09/04/16 0955 09/04/16 0955 Results 24 hrs Laboratory Tests Test 09/03/16 17:36 09/03/16 20:50 09/04/16 00:52 09/04/16 05:47 Bedside Glucose 112 134 87 82 Test 09/04/16 08:09 09/04/16 09:55 09/04/16 12:28 Bedside Glucose 85 75 White Blood Count 4.5 #L Red Blood Count 3.51 L Hemoglobin 9.2 L Hematocrit 31.3 L Mean Corpuscular Volume 89.2 Mean Corpuscular Hemoglobin 26.2 L Mean Corpuscular Hemoglobin Concent 29.4 L Red Cell Distribution Width 24.0 H Platelet Count 110 L Mean Platelet Volume 9.9 Neutrophils % 66.9 Lymphocytes % 17.9 Monocytes % 9.3 Eosinophils % 5.1 Basophils % 0.4 Nucleated Red Blood Cells % 1.1 H Neutrophils # 3.0 Lymphocytes # 0.8 Monocytes # 0.4 Eosinophils # 0.2 Basophils # 0.0 Nucleated Red Blood Cells # 0.1 H Prothrombin Time 17.5 H Prothrombin Time Ratio 1.4 INR International Normalized Ratio 1.43 Activated Partial Thromboplast Time 43.1 H Sodium Level 135 Potassium Level 2.7 *L Chloride Level 92 #L Carbon Dioxide Level 31 Anion Gap 15 Blood Urea Nitrogen 42 #H Creatinine 1.11 Glucose Level 93 Calcium Level 8.5 Total Bilirubin 1.2 Direct Bilirubin 0.00 Indirect Bilirubin 1.2 H Aspartate Amino Transf (AST/SGOT) 23 Alanine Aminotransferase (ALT/SGPT) 50 Alkaline Phosphatase 107 Total Protein 6.2 Albumin 3.1 L Globulin 3.10 Albumin/Globulin Ratio 1.00 Medications Current Medications Acetaminophen (Tylenol Tab) 650 mg Q6H PRN PO PAIN AND OR ELEVATED TEMP; Start 08/27/16 at 23:00 Insulin Glargine (Lantus) 10 unit QAM SC Last administered on 09/04/16 08:50; Admin Dose 10 UNIT; Start 08/28/16 at 09:00 Ondansetron HCl (Zofran Inj) 4 mg Q6H PRN IV NAUSEA AND/OR VOMITING; Start at 23:00 Carvedilol (Coreg) 3.125 mg BID PO Last administered on 08/29/16 09:54; Admin Dose 3.125 MG; Start 08/28/16 at 09:00; Status Future Hold Isosorbide Dinitrate (Isordil) 10 mg TID PO Last administered on 08/29/16 09:54 ; Admin Dose 10 MG; Start 08/28/16 at 09:00; Status Future Hold Sucralfate (Carafate) 1 gm QID PO Last administered on 09/04/16 08:42; Admin Dose 1 GM; Start 08/28/16 at 09:00 Morphine Sulfate (morphine) 2 mg Q2H PRN IV PAIN Last administered on 09/01/16 10:22; Admin Dose 2 MG; Start 09/01/16 at 01:30 Digoxin (Digoxin) 0.125 mg Q2D@13 PO Last administered on 09/03/16 13:48; Admin Dose 0.125 MG; Start 09/03/16 at 13:00 Ascorbic Acid (Vitamin C) 500 mg DAILY PO Last administered on 09/04/16 08:42; Admin Dose 500 MG; Start 09/03/16 at 10:30 Aspirin (Aspirin) 81 mg DAILY PO Last administered on 09/04/16 08:42; Admin Dose 81 MG; Start 09/03/16 at 10:30 Docusate Sodium (Colace) 200 mg QHS PO Last administered on 09/03/16 20:59; Admin Dose 200 MG; Start 09/03/16 at 21:00 Zinc Sulfate (Zinc Sulfate) 220 mg DAILY PO Last administered on 09/04/16 08:42 ; Admin Dose 220 MG; Start 09/03/16 at 10:30 Multivitamins Therapeutic (Theragran) 1 tab DAILY PO Last administered on 08:42; Admin Dose 1 TAB; Start 09/03/16 at 10:30 Miscellaneous Information 1 ea NOTE XX ; Start 09/03/16 at 11:00 Glucose (Glutose) 15 gm Q15M PRN PO DECREASED GLUCOSE; Start 09/03/16 at 11:00 Glucose (Glutose) 22.5 gm Q15M PRN PO DECREASED GLUCOSE; Start 09/03/16 at 11:00 Dextrose (D50w Syringe) 25 ml Q15M PRN IV DECREASED GLUCOSE; Start 09/03/16 at 11:00 Dextrose (D50w Syringe) 50 ml Q15M PRN IV DECREASED GLUCOSE; Start 09/03/16 at 11:00 Glucagon (Glucagen) 1 mg Q15M PRN IM DECREASED GLUCOSE; Start 09/03/16 at 11:00 Glucose (Glutose) 15 gm Q15M PRN BUCCAL DECREASED GLUCOSE; Start 09/03/16 at 11: 00 Mupirocin 1 applic 1 applic BID TOP Last administered on 09/04/16 08:56; Admin Dose 1 APPLIC; Start 09/03/16 at 21:00 Potassium Chloride (KCl 40 MEQ/250 ML NS) 250 ml @ 62.5 mls/hr ONCE ONCE IVPB ; Start 09/04/16 at 13:00; Stop 09/04/16 at 16:59 Pantoprazole (Protonix Tab) 40 mg DAILY@06 PO ; Start 09/05/16 at 06:00 Assessment/Plan Chief Complaint/Hosp Course IMPRESSION: 1. Status post shock likely combination of sepsis and cardiogenic 2. Altered mental status likely due to his underlying shock and uremia, clinically improving 3. Renal Failure requiring hemodialysis 4. Status post Acute Hypercapnic resp failure--secondary to shock and ARF 5. Anemia RECOMMENDATIONS: 1. Continue incentive spirometry and bronchodilators 2. Renal recommendations 3. Abx per ID, consider de-escalation 4. Aspiration precautions speech therapy recommendations 5. F/U cx's 6. Cardiac recommendations Disposition Discussed with family at bedside Problems: HERMAN CARDENAS [facility], [facility] Sep 04, 2016 14:04
--- NOTE | 2016-09-04 15:35 | CONS ---
Date/Time of Note Date/Time of Note DATE: 09/04/16 TIME: 15:34 Assessment/Plan Assessment/Plan Chief Complaint/Hosp Course SUBJECTIVE: No events. The patient is alert, feels good, no fevers INDWELLINGS: Right IJ Fidel and Gan catheters. PHYSICAL EXAMINATION: GENERAL: This is a well-developed, fragile, elderly man who is awake, in no distress. HEENT: Head atraumatic, normocephalic. Sclerae anicteric. Buccal mucosa dry. NECK: Supple, trachea midline. CHEST: Rise symmetrical. Breath sounds diminished to bases. HEART: S1, S2. ABDOMEN: Soft. Bowel tones present. EXTREMITIES: Without cyanosis. Bilateral edema. ASSESSMENT: 1. Resolving sepsis status post shock. 2. Status post urinary tract infection. 3. Status post acute respiratory failure, extubated. 4. Fluid overload. 5. Acute on chronic kidney disease. 6. History of coronary artery bypass graft. PLAN: The patient remains stable. Off abx. DW staff Problems: Consultation Date/Type/Reason Admit Date/Time Aug 27, 2016 at 21:25 Initial Consult Date Type of Consultation: ID Referring Provider: BOLA SOLO Exam/Review of Systems Vital Signs Vitals Vital Signs Date Time Temp Pulse Resp B/P Pulse Ox O2 Delivery O2 Flow Rate FiO2 09/04/16 12:14 59 09/04/16 11:38 97.6 19 114/55 95 09/04/16 08:00 Nasal Cannula 2.0 09/02/16 11:08 30 Intake and Output 09/03/16 09/03/16 09/04/16 15:00 23:00 07:00 Intake Total 320 ml 240 ml 200 ml Output Total 550 ml 200 ml 1600 ml Balance -230 ml 40 ml -1400 ml Results Result Diagram: 09/04/16 0955 09/04/16 0955 Results 24 hrs Laboratory Tests Test 09/03/16 17:36 09/03/16 20:50 09/04/16 00:52 09/04/16 05:47 Bedside Glucose 112 134 87 82 Test 09/04/16 08:09 09/04/16 09:55 09/04/16 12:28 Bedside Glucose 85 75 White Blood Count 4.5 #L Red Blood Count 3.51 L Hemoglobin 9.2 L Hematocrit 31.3 L Mean Corpuscular Volume 89.2 Mean Corpuscular Hemoglobin 26.2 L Mean Corpuscular Hemoglobin Concent 29.4 L Red Cell Distribution Width 24.0 H Platelet Count 110 L Mean Platelet Volume 9.9 Neutrophils % 66.9 Lymphocytes % 17.9 Monocytes % 9.3 Eosinophils % 5.1 Basophils % 0.4 Nucleated Red Blood Cells % 1.1 H Neutrophils # 3.0 Lymphocytes # 0.8 Monocytes # 0.4 Eosinophils # 0.2 Basophils # 0.0 Nucleated Red Blood Cells # 0.1 H Prothrombin Time 17.5 H Prothrombin Time Ratio 1.4 INR International Normalized Ratio 1.43 Activated Partial Thromboplast Time 43.1 H Sodium Level 135 Potassium Level 2.7 *L Chloride Level 92 #L Carbon Dioxide Level 31 Anion Gap 15 Blood Urea Nitrogen 42 #H Creatinine 1.11 Glucose Level 93 Calcium Level 8.5 Total Bilirubin 1.2 Direct Bilirubin 0.00 Indirect Bilirubin 1.2 H Aspartate Amino Transf (AST/SGOT) 23 Alanine Aminotransferase (ALT/SGPT) 50 Alkaline Phosphatase 107 Total Protein 6.2 Albumin 3.1 L Globulin 3.10 Albumin/Globulin Ratio 1.00 Medications Medications Current Medications Acetaminophen (Tylenol Tab) 650 mg Q6H PRN PO PAIN AND OR ELEVATED TEMP; Start 08/27/16 at 23:00 Insulin Glargine (Lantus) 10 unit QAM SC Last administered on 09/04/16 08:50; Admin Dose 10 UNIT; Start 08/28/16 at 09:00 Ondansetron HCl (Zofran Inj) 4 mg Q6H PRN IV NAUSEA AND/OR VOMITING; Start at 23:00 Carvedilol (Coreg) 3.125 mg BID PO Last administered on 08/29/16 09:54; Admin Dose 3.125 MG; Start 08/28/16 at 09:00; Status Future Hold Isosorbide Dinitrate (Isordil) 10 mg TID PO Last administered on 08/29/16 09:54 ; Admin Dose 10 MG; Start 08/28/16 at 09:00; Status Future Hold Sucralfate (Carafate) 1 gm QID PO Last administered on 09/04/16 14:21; Admin Dose 1 GM; Start 08/28/16 at 09:00 Morphine Sulfate (morphine) 2 mg Q2H PRN IV PAIN Last administered on 09/01/16 10:22; Admin Dose 2 MG; Start 09/01/16 at 01:30 Digoxin (Digoxin) 0.125 mg Q2D@13 PO Last administered on 09/03/16 13:48; Admin Dose 0.125 MG; Start 09/03/16 at 13:00 Ascorbic Acid (Vitamin C) 500 mg DAILY PO Last administered on 09/04/16 08:42; Admin Dose 500 MG; Start 09/03/16 at 10:30 Aspirin (Aspirin) 81 mg DAILY PO Last administered on 09/04/16 08:42; Admin Dose 81 MG; Start 09/03/16 at 10:30 Docusate Sodium (Colace) 200 mg QHS PO Last administered on 09/03/16 20:59; Admin Dose 200 MG; Start 09/03/16 at 21:00 Zinc Sulfate (Zinc Sulfate) 220 mg DAILY PO Last administered on 09/04/16 08:42 ; Admin Dose 220 MG; Start 09/03/16 at 10:30 Multivitamins Therapeutic (Theragran) 1 tab DAILY PO Last administered on 08:42; Admin Dose 1 TAB; Start 09/03/16 at 10:30 Miscellaneous Information 1 ea NOTE XX ; Start 09/03/16 at 11:00 Glucose (Glutose) 15 gm Q15M PRN PO DECREASED GLUCOSE; Start 09/03/16 at 11:00 Glucose (Glutose) 22.5 gm Q15M PRN PO DECREASED GLUCOSE; Start 09/03/16 at 11:00 Dextrose (D50w Syringe) 25 ml Q15M PRN IV DECREASED GLUCOSE; Start 09/03/16 at 11:00 Dextrose (D50w Syringe) 50 ml Q15M PRN IV DECREASED GLUCOSE; Start 09/03/16 at 11:00 Glucagon (Glucagen) 1 mg Q15M PRN IM DECREASED GLUCOSE; Start 09/03/16 at 11:00 Glucose (Glutose) 15 gm Q15M PRN BUCCAL DECREASED GLUCOSE; Start 09/03/16 at 11: 00 Mupirocin 1 applic 1 applic BID TOP Last administered on 09/04/16 08:56; Admin Dose 1 APPLIC; Start 09/03/16 at 21:00 Potassium Chloride (KCl 40 MEQ/250 ML NS) 250 ml @ 62.5 mls/hr ONCE ONCE IVPB Last administered on 09/04/16t 14:21; Admin Dose 62.5 MLS/HR; Start 09/04/16 at 13:00; Stop 09/04/16 at 16:59 Pantoprazole (Protonix Tab) 40 mg DAILY@06 PO ; Start 09/05/16 at 06:00 ADA MICHELLE NP Sep 04, 2016 15:35
--- NOTE | 2016-09-04 15:55 | CONS ---
Date/Time of Note Date/Time of Note DATE: 09/04/16 TIME: 15:53 Assessment/Plan Assessment/Plan Chief Complaint/Hosp Course IMp: 1.CHF-systolic acute on chronic 2.Hypotension-Levo just turned off 3.REnal failurwe s/p HD 4.Cardiomyopathy with low EF 5.AICD 6.H/O cad s/p cabg 7.PAF 8.Coagulopathy-overall improved 9. Resp failure-improved s/p extubation Recc: -Tele -Continue abx's and f/'u cx data -HD for volume removal -Continue digoxin -Continue to follow BP closely and will resume low dose hydralazine afterload reduction and if tolerates this will restart low dose coreg -Lisandra mancuso to resume Eliquis at this time Problems: Consultation Date/Type/Reason Admit Date/Time Aug 27, 2016 at 21:25 Initial Consult Date 08/28/2016 Type of Consultation: Cardiology Reason for Consultation cardiomyopathy Referring Provider: BOLA SOLO Exam/Review of Systems Vital Signs Vitals Vital Signs Date Time Temp Pulse Resp B/P Pulse Ox O2 Delivery O2 Flow Rate FiO2 09/04/16 12:14 59 09/04/16 11:38 97.6 19 114/55 95 09/04/16 08:00 Nasal Cannula 2.0 09/02/16 11:08 30 Intake and Output 09/03/16 09/03/16 09/04/16 14:59 22:59 06:59 Intake Total 320 ml 240 ml 200 ml Output Total 550 ml 200 ml 1600 ml Balance -230 ml 40 ml -1400 ml Exam Review of Systems: CONSTITUTIONAL: No fevers, chills. PULMONARY: No sob CARDIOVASCULAR: No chest pain/palpitations GASTROINTESTINAL: No nausea/vomiting. GENITOURINARY: No hematuria/dysuria. MUSCULOSKELETAL: No myagias/arthalgias. PSYCHIATRIC: The patient denies depression. NEUROLOGIC: lethargic Constitutional: alert Psych: no complaints Head: normocephalic ENMT: mucosa pink and moist Neck: jvd (9 cm water), supple Respiratory: diminished breath sounds (at bases/B) Cardiovascular: regular rate and rhythm Gastrointestinal: non-tender, soft Musculoskeletal: muscle tone (normal) Extremities: edema (none) Neurological: lethargic Results Result Diagram: 09/04/1695409/04/16954 Results 24 hrs Laboratory Tests Test 09/03/16 17:36 09/03/16 20:50 09/04/16 00:52 09/04/16 05:47 Bedside Glucose 112 134 87 82 Test 09/04/16 08:09 09/04/16 09:55 09/04/16 12:28 Bedside Glucose 85 75 White Blood Count 4.5 #L Red Blood Count 3.51 L Hemoglobin 9.2 L Hematocrit 31.3 L Mean Corpuscular Volume 89.2 Mean Corpuscular Hemoglobin 26.2 L Mean Corpuscular Hemoglobin Concent 29.4 L Red Cell Distribution Width 24.0 H Platelet Count 110 L Mean Platelet Volume 9.9 Neutrophils % 66.9 Lymphocytes % 17.9 Monocytes % 9.3 Eosinophils % 5.1 Basophils % 0.4 Nucleated Red Blood Cells % 1.1 H Neutrophils # 3.0 Lymphocytes # 0.8 Monocytes # 0.4 Eosinophils # 0.2 Basophils # 0.0 Nucleated Red Blood Cells # 0.1 H Prothrombin Time 17.5 H Prothrombin Time Ratio 1.4 INR International Normalized Ratio 1.43 Activated Partial Thromboplast Time 43.1 H Sodium Level 135 Potassium Level 2.7 *L Chloride Level 92 #L Carbon Dioxide Level 31 Anion Gap 15 Blood Urea Nitrogen 42 #H Creatinine 1.11 Glucose Level 93 Calcium Level 8.5 Total Bilirubin 1.2 Direct Bilirubin 0.00 Indirect Bilirubin 1.2 H Aspartate Amino Transf (AST/SGOT) 23 Alanine Aminotransferase (ALT/SGPT) 50 Alkaline Phosphatase 107 Total Protein 6.2 Albumin 3.1 L Globulin 3.10 Albumin/Globulin Ratio 1.00 Medications Medications Current Medications Acetaminophen (Tylenol Tab) 650 mg Q6H PRN PO PAIN AND OR ELEVATED TEMP; Start 08/27/16 at 23:00 Insulin Glargine (Lantus) 10 unit QAM SC Last administered on 09/04/16 08:50; Admin Dose 10 UNIT; Start 08/28/16 at 09:00 Ondansetron HCl (Zofran Inj) 4 mg Q6H PRN IV NAUSEA AND/OR VOMITING; Start at 23:00 Carvedilol (Coreg) 3.125 mg BID PO Last administered on 08/29/16 09:54; Admin Dose 3.125 MG; Start 08/28/16 at 09:00; Status Future Hold Isosorbide Dinitrate (Isordil) 10 mg TID PO Last administered on 08/29/16 09:54 ; Admin Dose 10 MG; Start 08/28/16 at 09:00; Status Future Hold Sucralfate (Carafate) 1 gm QID PO Last administered on 09/04/16 14:21; Admin Dose 1 GM; Start 08/28/16 at 09:00 Morphine Sulfate (morphine) 2 mg Q2H PRN IV PAIN Last administered on 09/01/16 10:22; Admin Dose 2 MG; Start 09/01/16 at 01:30 Digoxin (Digoxin) 0.125 mg Q2D@13 PO Last administered on 09/03/16 13:48; Admin Dose 0.125 MG; Start 09/03/16 at 13:00 Ascorbic Acid (Vitamin C) 500 mg DAILY PO Last administered on 09/04/16 08:42; Admin Dose 500 MG; Start 09/03/16 at 10:30 Aspirin (Aspirin) 81 mg DAILY PO Last administered on 09/04/16 08:42; Admin Dose 81 MG; Start 09/03/16 at 10:30 Docusate Sodium (Colace) 200 mg QHS PO Last administered on 09/03/16 20:59; Admin Dose 200 MG; Start 09/03/16 at 21:00 Zinc Sulfate (Zinc Sulfate) 220 mg DAILY PO Last administered on 09/04/16 08:42 ; Admin Dose 220 MG; Start 09/03/16 at 10:30 Multivitamins Therapeutic (Theragran) 1 tab DAILY PO Last administered on 08:42; Admin Dose 1 TAB; Start 09/03/16 at 10:30 Miscellaneous Information 1 ea NOTE XX ; Start 09/03/16 at 11:00 Glucose (Glutose) 15 gm Q15M PRN PO DECREASED GLUCOSE; Start 09/03/16 at 11:00 Glucose (Glutose) 22.5 gm Q15M PRN PO DECREASED GLUCOSE; Start 09/03/16 at 11:00 Dextrose (D50w Syringe) 25 ml Q15M PRN IV DECREASED GLUCOSE; Start 09/03/16 at 11:00 Dextrose (D50w Syringe) 50 ml Q15M PRN IV DECREASED GLUCOSE; Start 09/03/16 at 11:00 Glucagon (Glucagen) 1 mg Q15M PRN IM DECREASED GLUCOSE; Start 09/03/16 at 11:00 Glucose (Glutose) 15 gm Q15M PRN BUCCAL DECREASED GLUCOSE; Start 09/03/16 at 11: 00 Mupirocin 1 applic 1 applic BID TOP Last administered on 09/04/16 08:56; Admin Dose 1 APPLIC; Start 09/03/16 at 21:00 Potassium Chloride (KCl 40 MEQ/250 ML NS) 250 ml @ 62.5 mls/hr ONCE ONCE IVPB Last administered on 09/04/16 14:21; Admin Dose 62.5 MLS/HR; Start 09/04/16 at 13:00; Stop 09/04/16 at 16:59 Pantoprazole (Protonix Tab) 40 mg DAILY@06 PO ; Start 09/05/16 at 06:00 POLI SAN Sep 04, 2016 15:55
--- NOTE | 2016-09-04 16:31 | PN ---
Date/Time of Note Date/Time of Note DATE: 09/04/16 TIME: 16:31 Assessment/Plan VTE Prophylaxis VTE Prophylaxis Intervention: SCD's Lines/Catheters IV [facility] Type [facility] Saline Lock Urinary Cath still in place: Yes Reason Cath still needed: other (indicate) Assessment/Plan Assessment/Plan An 81-year-old male with the following medical problems: 1. Severe sepsis with lactic acidosis secondary to #2: improving 2. Urinary tract infection. 3. 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 4. Acute respiratory failure successfully extubated 09/02/16 / stable on NC 5. Congestive heart failure and chronic kidney disease causing volume overload causing respiratory failure. 6. Diabetes mellitus type 2 : 7. Paroxysmal atrial fibrillation. 8. Coronary artery disease status post coronary artery bypass graft. 9. Ischemic cardiomyopathy. Last known EF of 25%, status post automatic implantable cardioverter/defibrillator. 10. 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 11. Chronic liver cirrhosis with coagulopathy with Mild hyperbilirubinemia with transaminitis 12. Methicillin-resistant Staphylococcus aureus, nares. s/p 7 days of bactroban PLAN: * Continue tele care * Continue pulm toilet and weaning of o2 / patient makes good urine will add lasix to regimen if ok with renal * Continue hemodialysis per renal. The patient needs continued volume removal. * Continue broad-spectrum antibiotics for a 2 week course * Awaiting PT eval * Titrate insulin therapy as indicated PROPHYLAXIS: SCDs only for now as the patient is still coagulopathic / PPI as well (the patent was on Eliquis prior to admission for Afib). Subjective 24 Hr Interval Summary Free Text/Dictation lethargic, mildly SOB Exam/Review of Systems Vital Signs Vitals Vital Signs Date Time Temp Pulse Resp B/P Pulse Ox O2 Delivery O2 Flow Rate FiO2 09/04/16 12:14 59 09/04/16 11:38 97.6 19 114/55 95 09/04/16 08:00 Nasal Cannula 2.0 09/02/16 11:08 30 Intake and Output 09/03/16 09/03/16 09/04/16 14:59 22:59 06:59 Intake Total 320 ml 240 ml 200 ml Output Total 550 ml 200 ml 1600 ml Balance -230 ml 40 ml -1400 ml Exam Constitutional: alert, frail, oriented Head: atraumatic, normocephalic Eyes: PERRL ENMT: mucosa pink and moist Respiratory: crackles/rales ++, diminished breath sounds Cardiovascular: regular rate and rhythm, loud murmur Gastrointestinal: bowel sounds, non-tender, soft Neurological: lethargic, No confused Results Result Diagram: 09/04/1655 09/04/16 0955 Results 24 hrs Laboratory Tests Test 09/03/16 17:36 09/03/16 20:50 09/04/16 00:52 09/04/16 05:47 Bedside Glucose 112 134 87 82 Test 09/04/16 08:09 09/04/16 09:55 09/04/16 12:28 Bedside Glucose 85 75 White Blood Count 4.5 #L Red Blood Count 3.51 L Hemoglobin 9.2 L Hematocrit 31.3 L Mean Corpuscular Volume 89.2 Mean Corpuscular Hemoglobin 26.2 L Mean Corpuscular Hemoglobin Concent 29.4 L Red Cell Distribution Width 24.0 H Platelet Count 110 L Mean Platelet Volume 9.9 Neutrophils % 66.9 Lymphocytes % 17.9 Monocytes % 9.3 Eosinophils % 5.1 Basophils % 0.4 Nucleated Red Blood Cells % 1.1 H Neutrophils # 3.0 Lymphocytes # 0.8 Monocytes # 0.4 Eosinophils # 0.2 Basophils # 0.0 Nucleated Red Blood Cells # 0.1 H Prothrombin Time 17.5 H Prothrombin Time Ratio 1.4 INR International Normalized Ratio 1.43 Activated Partial Thromboplast Time 43.1 H Sodium Level 135 Potassium Level 2.7 *L Chloride Level 92 #L Carbon Dioxide Level 31 Anion Gap 15 Blood Urea Nitrogen 42 #H Creatinine 1.11 Glucose Level 93 Calcium Level 8.5 Total Bilirubin 1.2 Direct Bilirubin 0.00 Indirect Bilirubin 1.2 H Aspartate Amino Transf (AST/SGOT) 23 Alanine Aminotransferase (ALT/SGPT) 50 Alkaline Phosphatase 107 Total Protein 6.2 Albumin 3.1 L Globulin 3.10 Albumin/Globulin Ratio 1.00 Medications Medications Current Medications Acetaminophen (Tylenol Tab) 650 mg Q6H PRN PO PAIN AND OR ELEVATED TEMP; Start 08/27/16 at 23:00 Insulin Glargine (Lantus) 10 unit QAM SC Last administered on 09/04/16t 08:50; Admin Dose 10 UNIT; Start 08/28/16 at 09:00 Ondansetron HCl (Zofran Inj) 4 mg Q6H PRN IV NAUSEA AND/OR VOMITING; Start at 23:00 Carvedilol (Coreg) 3.125 mg BID PO Last administered on 08/29/16 09:54; Admin Dose 3.125 MG; Start 08/28/16 at 09:00; Status Future Hold Isosorbide Dinitrate (Isordil) 10 mg TID PO Last administered on 08/29/16 09:54 ; Admin Dose 10 MG; Start 08/28/16 at 09:00; Status Future Hold Sucralfate (Carafate) 1 gm QID PO Last administered on 09/04/16 14:21; Admin Dose 1 GM; Start 08/28/16 at 09:00 Morphine Sulfate (morphine) 2 mg Q2H PRN IV PAIN Last administered on 09/01/16 10:22; Admin Dose 2 MG; Start 09/01/16 at 01:30 Digoxin (Digoxin) 0.125 mg Q2D@13 PO Last administered on 09/03/16 13:48; Admin Dose 0.125 MG; Start 09/03/16 at 13:00 Ascorbic Acid (Vitamin C) 500 mg DAILY PO Last administered on 09/04/16 08:42; Admin Dose 500 MG; Start 09/03/16 at 10:30 Aspirin (Aspirin) 81 mg DAILY PO Last administered on 09/04/16 08:42; Admin Dose 81 MG; Start 09/03/16 at 10:30 Docusate Sodium (Colace) 200 mg QHS PO Last administered on 09/03/16 20:59; Admin Dose 200 MG; Start 09/03/16 at 21:00 Zinc Sulfate (Zinc Sulfate) 220 mg DAILY PO Last administered on 09/04/16 08:42 ; Admin Dose 220 MG; Start 09/03/16 at 10:30 Multivitamins Therapeutic (Theragran) 1 tab DAILY PO Last administered on 08:42; Admin Dose 1 TAB; Start 09/03/16 at 10:30 Miscellaneous Information 1 ea NOTE XX ; Start 09/03/16 at 11:00 Glucose (Glutose) 15 gm Q15M PRN PO DECREASED GLUCOSE; Start 09/03/16 at 11:00 Glucose (Glutose) 22.5 gm Q15M PRN PO DECREASED GLUCOSE; Start 09/03/16 at 11:00 Dextrose (D50w Syringe) 25 ml Q15M PRN IV DECREASED GLUCOSE; Start 09/03/16 at 11:00 Dextrose (D50w Syringe) 50 ml Q15M PRN IV DECREASED GLUCOSE; Start 09/03/16 at 11:00 Glucagon (Glucagen) 1 mg Q15M PRN IM DECREASED GLUCOSE; Start 09/03/16 at 11:00 Glucose (Glutose) 15 gm Q15M PRN BUCCAL DECREASED GLUCOSE; Start 09/03/16 at 11: 00 Mupirocin 1 applic 1 applic BID TOP Last administered on 09/04/16 08:56; Admin Dose 1 APPLIC; Start 09/03/16 at 21:00 Potassium Chloride (KCl 40 MEQ/250 ML NS) 250 ml @ 62.5 mls/hr ONCE ONCE IVPB Last administered on 09/04/16 14:21; Admin Dose 62.5 MLS/HR; Start 09/04/16 at 13:00; Stop 09/04/16 at 16:59 Pantoprazole (Protonix Tab) 40 mg DAILY@06 PO ; Start 09/05/16 at 06:00 Hydralazine HCl (Apresoline) 10 mg Q8 PO ; Start 09/04/16 at 22:00 BOLA SOLO Sep 04, 2016 16:31
[2016-09-04] MEDS: DOCUSATE SODIUM 100 MG CAP PO SCH (21:00)
[2016-09-05] VITALS (12 sets, daily range): BP systolic 105–127; BP diastolic 44–78; PULSE 60–64; RESP 15–18
--- NOTE | 2016-09-05 00:23 | CONS ---
Date/Time of Note Date/Time of Note DATE: 09/05/16 TIME: 00:22 Assessment/Plan Assessment/Plan Chief Complaint/Hosp Course SYSTOLIC HEART FAILURE better JAZLYN ON CKD LOW EF ASHD DM HX CAD AICD PLACEMENT s/p anasarca PLAN hd mwf Problems: Consultation Date/Type/Reason Admit Date/Time Aug 27, 2016 at 21:25 Initial Consult Date seen on hd Type of Consultation: renal Referring Provider: BOLA SOLO Exam/Review of Systems Vital Signs Vitals Vital Signs Date Time Temp Pulse Resp B/P Pulse Ox O2 Delivery O2 Flow Rate FiO2 09/05/16 00:11 63 09/04/16 22:47 Nasal Cannula 2.0 09/04/16 22:47 98.4 20 113/56 100 09/02/16 11:08 30 Intake and Output 09/04/16 09/04/16 09/05/16 15:00 23:00 07:00 Intake Total 1220 ml Output Total 2050 ml Balance -830 ml Exam Respiratory: diminished breath sounds Cardiovascular: regular rate and rhythm Gastrointestinal: soft Musculoskeletal: nl extremities to inspection Extremities: normal pulses Results Result Diagram: 09/04/16 0955 09/04/16 0955 Results 24 hrs Laboratory Tests Test 09/04/16 00:52 09/04/16 05:47 09/04/16 08:09 09/04/16 09:55 Bedside Glucose 87 82 85 White Blood Count 4.5 #L Red Blood Count 3.51 L Hemoglobin 9.2 L Hematocrit 31.3 L Mean Corpuscular Volume 89.2 Mean Corpuscular Hemoglobin 26.2 L Mean Corpuscular Hemoglobin Concent 29.4 L Red Cell Distribution Width 24.0 H Platelet Count 110 L Mean Platelet Volume 9.9 Neutrophils % 66.9 Lymphocytes % 17.9 Monocytes % 9.3 Eosinophils % 5.1 Basophils % 0.4 Nucleated Red Blood Cells % 1.1 H Neutrophils # 3.0 Lymphocytes # 0.8 Monocytes # 0.4 Eosinophils # 0.2 Basophils # 0.0 Nucleated Red Blood Cells # 0.1 H Prothrombin Time 17.5 H Prothrombin Time Ratio 1.4 INR International Normalized Ratio 1.43 Activated Partial Thromboplast Time 43.1 H Sodium Level 135 Potassium Level 2.7 *L Chloride Level 92 #L Carbon Dioxide Level 31 Anion Gap 15 Blood Urea Nitrogen 42 #H Creatinine 1.11 Glucose Level 93 Calcium Level 8.5 Total Bilirubin 1.2 Direct Bilirubin 0.00 Indirect Bilirubin 1.2 H Aspartate Amino Transf (AST/SGOT) 23 Alanine Aminotransferase (ALT/SGPT) 50 Alkaline Phosphatase 107 Total Protein 6.2 Albumin 3.1 L Globulin 3.10 Albumin/Globulin Ratio 1.00 Test 09/04/16 12:28 09/04/16 16:38 09/04/16 20:55 Bedside Glucose 75 137 138 Medications Medications Current Medications Acetaminophen (Tylenol Tab) 650 mg Q6H PRN PO PAIN AND OR ELEVATED TEMP; Start 08/27/16 at 23:00 Insulin Glargine (Lantus) 10 unit QAM SC Last administered on 09/04/16 08:50; Admin Dose 10 UNIT; Start 08/28/16 at 09:00 Ondansetron HCl (Zofran Inj) 4 mg Q6H PRN IV NAUSEA AND/OR VOMITING; Start at 23:00 Carvedilol (Coreg) 3.125 mg BID PO Last administered on 08/29/16 09:54; Admin Dose 3.125 MG; Start 08/28/16 at 09:00; Status Future Hold Isosorbide Dinitrate (Isordil) 10 mg TID PO Last administered on 08/29/16 09:54 ; Admin Dose 10 MG; Start 08/28/16 at 09:00; Status Future Hold Sucralfate (Carafate) 1 gm QID PO Last administered on 09/04/16 16:39; Admin Dose 1 GM; Start 08/28/16 at 09:00 Morphine Sulfate (morphine) 2 mg Q2H PRN IV PAIN Last administered on 09/01/16 10:22; Admin Dose 2 MG; Start 09/01/16 at 01:30 Digoxin (Digoxin) 0.125 mg Q2D@13 PO Last administered on 09/03/16 13:48; Admin Dose 0.125 MG; Start 09/03/16 at 13:00 Ascorbic Acid (Vitamin C) 500 mg DAILY PO Last administered on 09/04/16 08:42; Admin Dose 500 MG; Start 09/03/16 at 10:30 Aspirin (Aspirin) 81 mg DAILY PO Last administered on 09/04/16 08:42; Admin Dose 81 MG; Start 09/03/16 at 10:30 Docusate Sodium (Colace) 200 mg QHS PO Last administered on 09/03/16 20:59; Admin Dose 200 MG; Start 09/03/16 at 21:00 Zinc Sulfate (Zinc Sulfate) 220 mg DAILY PO Last administered on 09/04/16 08:42 ; Admin Dose 220 MG; Start 09/03/16 at 10:30 Multivitamins Therapeutic (Theragran) 1 tab DAILY PO Last administered on 08:42; Admin Dose 1 TAB; Start 09/03/16 at 10:30 Miscellaneous Information 1 ea NOTE XX ; Start 09/03/16 at 11:00 Glucose (Glutose) 15 gm Q15M PRN PO DECREASED GLUCOSE; Start 09/03/16 at 11:00 Glucose (Glutose) 22.5 gm Q15M PRN PO DECREASED GLUCOSE; Start 09/03/16 at 11:00 Dextrose (D50w Syringe) 25 ml Q15M PRN IV DECREASED GLUCOSE; Start 09/03/16 at 11:00 Dextrose (D50w Syringe) 50 ml Q15M PRN IV DECREASED GLUCOSE; Start 09/03/16 at 11:00 Glucagon (Glucagen) 1 mg Q15M PRN IM DECREASED GLUCOSE; Start 09/03/16 at 11:00 Glucose (Glutose) 15 gm Q15M PRN BUCCAL DECREASED GLUCOSE; Start 09/03/16 at 11: 00 Mupirocin (Bactroban) 1 applic BID TOP Last administered on 09/04/16 21:41; Admin Dose 1 APPLIC; Start 09/03/16 at 21:00 Pantoprazole (Protonix Tab) 40 mg DAILY@06 PO ; Start 09/05/16 at 06:00 Hydralazine HCl (Apresoline) 10 mg Q8 PO ; Start 09/04/16 at 22:00 Furosemide (Lasix) 40 mg DAILY IV ; Start 09/05/16 at 09:00 YANIRA HART MD Sep 05, 2016 00:23
[2016-09-05] MEDS: PANTOPRAZOLE (EC) 40 MG TAB PO SCH (05:28)
[2016-09-05 07:15] LABS: POTASSIUM 3.1 mmol/L (3.5-5.1)
[2016-09-05 07:18] LABS: CREATININE 0.89 mg/dl (0.61-1.24)
[2016-09-05 07:19] LABS: CALCIUM 8.3 mg/dl (8.4-10.2)
[2016-09-05] MEDS: INSULIN ASPART [NOVOLOG] 3 ML PEN SC SCH ×4 (07:25→20:39)
[2016-09-05] MEDS ORDERED: POTASSIUM CHLORIDE 250 ML IVPB ONE (09:00)
[2016-09-05] MEDS: INSULIN GLARGINE [LANtus] 3 ML PEN SC SCH (09:00)
[2016-09-05] MEDS ORDERED: FUROSEMIDE 40 MG INJ IV SCH ×2 (09:00)
[2016-09-05] MEDS: ASPIRIN 81 MG TAB PO SCH (09:45)
[2016-09-05] MEDS: SUCRALFATE 1 GM TAB PO SCH ×4 (09:45→20:39)
[2016-09-05] MEDS: ZINC SULFATE 220 MG CAP PO SCH (09:45)
[2016-09-05] MEDS: MULTIVITAMINS THERAPEUTIC TAB PO SCH (09:45)
[2016-09-05] MEDS: ASCORBIC ACID 500 MG TAB PO SCH (09:45)
[2016-09-05] MEDS: MUPIROCIN 2% 22 GM OINT TOP SCH ×2 (09:46→20:40)
[2016-09-05 10:53] LABS: ADD SCAN DIFF NO
[2016-09-05 10:55] LABS: ABNORMAL IP MESSAGE 1; BASOPHILS % 0.4 % (0.0-2.0); EOSINOPHILS # 0.2 10^3/ul (0.0-0.5); EOSINOPHILS % 4.1 % (0.0-7.0); HEMATOCRIT 34.3 % (42.0-52.0); HEMOGLOBIN 9.6 g/dl (14.0-18.0); LYMPHOCYTES # 0.8 10^3/ul (0.8-2.9); LYMPHOCYTES % 15.7 % (15.0-51.0); MEAN CORPUSCULAR HEMOGLOBIN 25.3 pg (29.0-33.0); MEAN CORPUSCULAR VOLUME 90.5 fl (82.0-101.0); MEAN PLATELET VOLUME 10.4 fl (7.4-10.4); MONOCYTE # 0.5 10^3/ul (0.3-0.9); MONOCYTES % 9.5 % (0.0-11.0); NEUTROPHIL # 3.4 10^3/ul (1.6-7.5); NEUTROPHILS % 69.7 % (39.0-77.0); PLATELET COUNT 129 10^3/UL (140-415); RED BLOOD COUNT 3.79 10^6/ul (4.70-6.10); RED CELL DISTRIBUTION WIDTH 24.3 % (11.5-14.5); WHITE BLOOD COUNT 4.8 10^3/ul (4.8-10.8)
[2016-09-05 11:19] LABS: INR 1.38; PT RATIO 1.3
[2016-09-05 11:20] LABS: PARTIAL THROMBOPLASTIN TIME 40.5 Sec (25.0-35.0)
--- NOTE | 2016-09-05 12:27 | PN ---
Date/Time of Note Date/Time of Note DATE: 09/05/16 TIME: 12:22 Assessment/Plan VTE Prophylaxis VTE Prophylaxis Intervention: other (coumadin) Lines/Catheters IV [facility]ter Type (from [facility] Saline Lock Urinary Cath still in place: No Assessment/Plan Assessment/Plan An 81-year-old male with the following medical problems: 1. Severe sepsis with lactic acidosis secondary to #2: improving 2. Urinary tract infection. 3. 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 4. Acute respiratory failure successfully extubated 09/02/16 / stable on NC 5. Congestive heart failure and chronic kidney disease causing volume overload causing respiratory failure. 6. Diabetes mellitus type 2 : 7. Paroxysmal atrial fibrillation. 8. Coronary artery disease status post coronary artery bypass graft. 9. Ischemic cardiomyopathy. Last known EF of 25%, status post automatic implantable cardioverter/defibrillator. 10. 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 11. Chronic liver cirrhosis with coagulopathy with Mild hyperbilirubinemia with transaminitis 12. Methicillin-resistant Staphylococcus aureus, nares. s/p 7 days of bactroban PLAN: 1. Continue tele monitoring 2. Continue pulm toilet and weaning of o2 as well as supplemental lasix 3. Continue hemodialysis per renal. The patient needs continued volume removal. 4. Continue broad-spectrum antibiotics. 5. Started on puree diet today and awaiting PT eval 6. Titrate insulin therapy as indicated 7. Per data, coumadin is better for ESRD patients, hence will start Coumadin in lieu of eliquis if ok with cardio PROPHYLAXIS: SCDs / coumadin / PPI as well CARE TIME: >35 mins Subjective 24 Hr Interval Summary Free Text/Dictation patient has no new issues, spoke with daughter in detail patient is very frail looks brighter Exam/Review of Systems Vital Signs Vitals Vital Signs Date Time Temp Pulse Resp B/P Pulse Ox O2 Delivery O2 Flow Rate FiO2 09/05/16 12:09 98.0 60 18 124/56 98 09/05/16 09:06 Nasal Cannula 2.0 09/02/16 11:08 30 Intake and Output 09/04/16 09/04/16 09/05/16 15:00 23:00 07:00 Intake Total 1270 ml 200 ml Output Total 2300 ml 1 ml Balance -1030 ml 199 ml Exam Constitutional: alert, oriented Head: atraumatic, normocephalic Eyes: PERRL ENMT: mucosa pink and moist Neck: jvd Respiratory: crackles/rales, diminished breath sounds Cardiovascular: irregular rhythm, murmurs/extra sounds Gastrointestinal: bowel sounds, non-tender, soft Extremities: No edema Neurological: lethargic, No focal weakness Results Result Diagram: 09/05/16 1025 09/05/16 0544 Results 24 hrs Laboratory Tests Test 09/04/16 12:28 09/04/16 16:38 09/04/16 20:55 09/05/16 05:44 Bedside Glucose 75 137 138 Sodium Level 138 Potassium Level 3.1 L Chloride Level 98 Carbon Dioxide Level 29 Anion Gap 14 Blood Urea Nitrogen 27 #H Creatinine 0.89 Glucose Level 57 #L Calcium Level 8.3 L Test 09/05/16 08:20 09/05/16 10:25 09/05/16 12:00 Bedside Glucose 63 L 104 White Blood Count 4.8 Red Blood Count 3.79 L Hemoglobin 9.6 L Hematocrit 34.3 L Mean Corpuscular Volume 90.5 Mean Corpuscular Hemoglobin 25.3 L Mean Corpuscular Hemoglobin Concent 28.0 L Red Cell Distribution Width 24.3 H Platelet Count 129 L Mean Platelet Volume 10.4 Neutrophils % 69.7 Lymphocytes % 15.7 Monocytes % 9.5 Eosinophils % 4.1 Basophils % 0.4 Nucleated Red Blood Cells % 0.0 Neutrophils # 3.4 Lymphocytes # 0.8 Monocytes # 0.5 Eosinophils # 0.2 Basophils # 0.0 Nucleated Red Blood Cells # 0.0 Prothrombin Time 17.0 H Prothrombin Time Ratio 1.3 INR International Normalized Ratio 1.38 Activated Partial Thromboplast Time 40.5 H Medications Medications Current Medications Acetaminophen (Tylenol Tab) 650 mg Q6H PRN PO PAIN AND OR ELEVATED TEMP; Start 08/27/16 at 23:00 Insulin Glargine (Lantus) 10 unit QAM SC Last administered on 09/04/16t 08:50; Admin Dose 10 UNIT; Start 08/28/16 at 09:00 Ondansetron HCl (Zofran Inj) 4 mg Q6H PRN IV NAUSEA AND/OR VOMITING; Start at 23:00 Carvedilol (Coreg) 3.125 mg BID PO Last administered on 08/29/16 09:54; Admin Dose 3.125 MG; Start 08/28/16 at 09:00; Status Future Hold Isosorbide Dinitrate (Isordil) 10 mg TID PO Last administered on 08/29/16 09:54 ; Admin Dose 10 MG; Start 08/28/16 at 09:00; Status Future Hold Sucralfate (Carafate) 1 gm QID PO Last administered on 09/05/16 09:45; Admin Dose 1 GM; Start 08/28/16 at 09:00 Morphine Sulfate (morphine) 2 mg Q2H PRN IV PAIN Last administered on 09/01/16 10:22; Admin Dose 2 MG; Start 09/01/16 at 01:30 Digoxin (Digoxin) 0.125 mg Q2D@13 PO Last administered on 09/03/16 13:48; Admin Dose 0.125 MG; Start 09/03/16 at 13:00 Ascorbic Acid (Vitamin C) 500 mg DAILY PO Last administered on 09/05/16 09:45; Admin Dose 500 MG; Start 09/03/16 at 10:30 Aspirin (Aspirin) 81 mg DAILY PO Last administered on 09/05/16 09:45; Admin Dose 81 MG; Start 09/03/16 at 10:30 Docusate Sodium (Colace) 200 mg QHS PO Last administered on 09/03/16 20:59; Admin Dose 200 MG; Start 09/03/16 at 21:00 Zinc Sulfate (Zinc Sulfate) 220 mg DAILY PO Last administered on 09/05/16 09:45 ; Admin Dose 220 MG; Start 09/03/16 at 10:30 Multivitamins Therapeutic (Theragran) 1 tab DAILY PO Last administered on 09:45; Admin Dose 1 TAB; Start 09/03/16 at 10:30 Miscellaneous Information 1 ea NOTE XX Last administered on 09/05/16 08:52; Admin Dose 1 EA; Start 09/03/16 at 11:00 Glucose (Glutose) 15 gm Q15M PRN PO DECREASED GLUCOSE; Start 09/03/16 at 11:00 Glucose (Glutose) 22.5 gm Q15M PRN PO DECREASED GLUCOSE; Start 09/03/16 at 11:00 Dextrose (D50w Syringe) 25 ml Q15M PRN IV DECREASED GLUCOSE; Start 09/03/16 at 11:00 Dextrose (D50w Syringe) 50 ml Q15M PRN IV DECREASED GLUCOSE; Start 09/03/16 at 11:00 Glucagon (Glucagen) 1 mg Q15M PRN IM DECREASED GLUCOSE; Start 09/03/16 at 11:00 Glucose (Glutose) 15 gm Q15M PRN BUCCAL DECREASED GLUCOSE; Start 09/03/16 at 11: 00 Mupirocin (Bactroban) 1 applic BID TOP Last administered on 09/05/16 09:46; Admin Dose 1 APPLIC; Start 09/03/16 at 21:00 Pantoprazole (Protonix Tab) 40 mg DAILY@06 PO Last administered on 09/05/16 05: 28; Admin Dose 40 MG; Start 09/05/16 at 06:00 Hydralazine HCl 10 mg 10 mg Q8 PO Last administered on 09/05/16 05:28; Admin Dose 10 MG; Start 09/04/16 at 22:00 Potassium Chloride (KCl 40 MEQ/250 ML NS) 250 ml @ 62.5 mls/hr ONCE ONCE IVPB Last administered on 09/05/16 09:45; Admin Dose 62.5 MLS/HR; Start 09/05/16 at 09:00; Stop 09/05/16 at 12:59 Furosemide (Lasix) 20 mg DAILY IV ; Start 09/05/16 at 09:01 Procedures Procedures PROCEDURE: XR Chest. CLINICAL INDICATION: Shortness of breath. TECHNIQUE: Single frontal view. COMPARISON: 08/31/2016. FINDINGS: The endotracheal tube and nasogastric tube have been removed. There is a right internal jugular vein temporary dialysis catheter in satisfactory position with the tip in the cavoatrial junction region. There is mild pulmonary edema, slightly improved. The lungs are otherwise clear. The heart is enlarged. There is calcification in the aorta consistent with atherosclerosis. There is a single lead permanent pacemaker/internal cardiac defibrillator. There are sternal wires and mediastinal clips. There are small bilateral pleural effusions. There is no pneumothorax. IMPRESSION: 1. Slightly improved appearance of the lungs. 2. No other change from 08/31/2016. RPTAT: QQ .Eugenio Ruano MD, Date Time Electronically viewed and signed by .Eugenio Ruano MD, on 09/04/2016 09:36 .R/ CC: HER[facility] CARDENAS MD, [facility] BOLA SOLO Sep 05, 2016 12:27
[2016-09-05] MEDS: DIGOXIN 0.125 MG TAB PO SCH (13:49)
--- NOTE | 2016-09-05 15:09 | CONS ---
Date/Time of Note Date/Time of Note DATE: 09/05/16 TIME: 15:03 Assessment/Plan Assessment/Plan Chief Complaint/Hosp Course IMp: 1.CHF-systolic acute on chronic 2.Hypotension-Levo just turned off 3.REnal failurwe s/p HD 4.Cardiomyopathy with low EF 5.AICD 6.H/O cad s/p cabg 7.PAF 8.Coagulopathy-overall improved 9. Resp failure-improved s/p extubation Recc: -Tele -Continue abx's and f/'u cx data -HD for volume removal -Continue digoxin -Continue to follow BP closely on low dose hydralazine afterload reduction and if tolerates this will restart low dose coreg -Patient now on coumadin/follow INR closely Problems: Consultation Date/Type/Reason Admit Date/Time Aug 27, 2016 at 21:25 Initial Consult Date 08/28/2016 Type of Consultation: Cardiology Reason for Consultation CHF Referring Provider: BOLA SOLO Exam/Review of Systems Vital Signs Vitals Vital Signs Date Time Temp Pulse Resp B/P Pulse Ox O2 Delivery O2 Flow Rate FiO2 09/05/16 12:09 98.0 60 18 124/56 98 09/05/16 09:06 Nasal Cannula 2.0 09/02/16 11:08 30 Intake and Output 09/04/16 09/04/16 09/05/16 15:00 23:00 07:00 Intake Total 1270 ml 200 ml Output Total 2300 ml 1 ml Balance -1030 ml 199 ml Exam Review of Systems: CONSTITUTIONAL: No fevers, chills. PULMONARY: No sob CARDIOVASCULAR: No chest pain/palpitations GASTROINTESTINAL: No nausea/vomiting. GENITOURINARY: No hematuria/dysuria. MUSCULOSKELETAL: No myagias/arthalgias. PSYCHIATRIC: The patient denies depression. NEUROLOGIC: No weakness Constitutional: alert Psych: no complaints Head: normocephalic ENMT: mucosa pink and moist Neck: jvd (9 cm water), supple Respiratory: diminished breath sounds (at bases/B) Cardiovascular: regular rate and rhythm Gastrointestinal: non-tender, soft Musculoskeletal: muscle weakness (generalized) Extremities: edema (Trace at feet only) Results Result Diagram: 09/05/16 1025 09/05/16 0544 Results 24 hrs Laboratory Tests Test 09/04/16 16:38 09/04/16 20:55 09/05/16 05:44 09/05/16 08:20 Bedside Glucose 137 138 63 L Sodium Level 138 Potassium Level 3.1 L Chloride Level 98 Carbon Dioxide Level 29 Anion Gap 14 Blood Urea Nitrogen 27 #H Creatinine 0.89 Glucose Level 57 #L Calcium Level 8.3 L Test 09/05/16 10:25 09/05/16 12:00 White Blood Count 4.8 Red Blood Count 3.79 L Hemoglobin 9.6 L Hematocrit 34.3 L Mean Corpuscular Volume 90.5 Mean Corpuscular Hemoglobin 25.3 L Mean Corpuscular Hemoglobin Concent 28.0 L Red Cell Distribution Width 24.3 H Platelet Count 129 L Mean Platelet Volume 10.4 Neutrophils % 69.7 Lymphocytes % 15.7 Monocytes % 9.5 Eosinophils % 4.1 Basophils % 0.4 Nucleated Red Blood Cells % 0.0 Neutrophils # 3.4 Lymphocytes # 0.8 Monocytes # 0.5 Eosinophils # 0.2 Basophils # 0.0 Nucleated Red Blood Cells # 0.0 Prothrombin Time 17.0 H Prothrombin Time Ratio 1.3 INR International Normalized Ratio 1.38 Activated Partial Thromboplast Time 40.5 H Bedside Glucose 104 Medications Medications Current Medications Acetaminophen (Tylenol Tab) 650 mg Q6H PRN PO PAIN AND OR ELEVATED TEMP; Start 08/27/16 at 23:00 Insulin Glargine (Lantus) 10 unit QAM SC Last administered on 09/04/16 08:50; Admin Dose 10 UNIT; Start 08/28/16 at 09:00 Ondansetron HCl (Zofran Inj) 4 mg Q6H PRN IV NAUSEA AND/OR VOMITING; Start at 23:00 Carvedilol (Coreg) 3.125 mg BID PO Last administered on 08/29/16 09:54; Admin Dose 3.125 MG; Start 08/28/16 at 09:00; Status Future Hold Isosorbide Dinitrate (Isordil) 10 mg TID PO Last administered on 08/29/16 09:54 ; Admin Dose 10 MG; Start 08/28/16 at 09:00; Status Future Hold Sucralfate (Carafate) 1 gm QID PO Last administered on 09/05/16 13:49; Admin Dose 1 GM; Start 08/28/16 at 09:00 Morphine Sulfate (morphine) 2 mg Q2H PRN IV PAIN Last administered on 09/01/16 10:22; Admin Dose 2 MG; Start 09/01/16 at 01:30 Digoxin (Digoxin) 0.125 mg Q2D@13 PO Last administered on 09/05/16 13:49; Admin Dose 0.125 MG; Start 09/03/16 at 13:00 Ascorbic Acid (Vitamin C) 500 mg DAILY PO Last administered on 09/05/16 09:45; Admin Dose 500 MG; Start 09/03/16 at 10:30 Aspirin (Aspirin) 81 mg DAILY PO Last administered on 09/05/16 09:45; Admin Dose 81 MG; Start 09/03/16 at 10:30 Docusate Sodium (Colace) 200 mg QHS PO Last administered on 09/03/16 20:59; Admin Dose 200 MG; Start 09/03/16 at 21:00 Zinc Sulfate (Zinc Sulfate) 220 mg DAILY PO Last administered on 09/05/16 09:45 ; Admin Dose 220 MG; Start 09/03/16 at 10:30 Multivitamins Therapeutic (Theragran) 1 tab DAILY PO Last administered on 09:45; Admin Dose 1 TAB; Start 09/03/16 at 10:30 Miscellaneous Information 1 ea NOTE XX Last administered on 09/05/16 08:52; Admin Dose 1 EA; Start 09/03/16 at 11:00 Glucose (Glutose) 15 gm Q15M PRN PO DECREASED GLUCOSE; Start 09/03/16 at 11:00 Glucose (Glutose) 22.5 gm Q15M PRN PO DECREASED GLUCOSE; Start 09/03/16 at 11:00 Dextrose (D50w Syringe) 25 ml Q15M PRN IV DECREASED GLUCOSE; Start 09/03/16 at 11:00 Dextrose (D50w Syringe) 50 ml Q15M PRN IV DECREASED GLUCOSE; Start 09/03/16 at 11:00 Glucagon (Glucagen) 1 mg Q15M PRN IM DECREASED GLUCOSE; Start 09/03/16 at 11:00 Glucose (Glutose) 15 gm Q15M PRN BUCCAL DECREASED GLUCOSE; Start 09/03/16 at 11: 00 Mupirocin (Bactroban) 1 applic BID TOP Last administered on 09/05/16 09:46; Admin Dose 1 APPLIC; Start 09/03/16 at 21:00 Pantoprazole (Protonix Tab) 40 mg DAILY@06 PO Last administered on 09/05/16 05: 28; Admin Dose 40 MG; Start 09/05/16 at 06:00 Hydralazine HCl (Apresoline) 10 mg Q8 PO Last administered on 09/05/16 13:49; Admin Dose 10 MG; Start 09/04/16 at 22:00 Furosemide (Lasix) 20 mg DAILY IV ; Start 09/05/16 at 09:01 Warfarin Sodium (Coumadin) 2 mg DAILY@17 PO ; Start 09/05/16 at 17:00 POLI SAN Sep 05, 2016 15:09
[2016-09-05] MEDS ORDERED: WARFARIN 2 MG TAB PO SCH (17:00)
[2016-09-05] MEDS: DOCUSATE SODIUM 100 MG CAP PO SCH (20:39)
--- NOTE | 2016-09-05 21:45 | CONS ---
Date/Time of Note Date/Time of Note DATE: 09/05/16 TIME: 21:42 Assessment/Plan Assessment/Plan Chief Complaint/Hosp Course SYSTOLIC HEART FAILURE better JAZLYN ON CKD LOW EF ASHD DM HX CAD AICD PLACEMENT s/p anasarca PLAN hd mwf Problems: Consultation Date/Type/Reason Admit Date/Time Aug 27, 2016 at 21:25 Initial Consult Date no distress Type of Consultation: renal Referring Provider: BOLA SOLO Exam/Review of Systems Vital Signs Vitals Vital Signs Date Time Temp Pulse Resp B/P Pulse Ox O2 Delivery O2 Flow Rate FiO2 09/05/16 20:17 64 09/05/16 20:00 98.3 15 105/44 100 09/05/16 19:48 Nasal Cannula 4.0 09/02/16 11:08 30 Intake and Output 09/04/16 09/04/16 09/05/16 15:00 23:00 07:00 Intake Total 1270 ml 200 ml Output Total 2300 ml 1 ml Balance -1030 ml 199 ml Exam Respiratory: clear to auscultation Cardiovascular: regular rate and rhythm Gastrointestinal: soft Extremities: edema (dec) Results Result Diagram: 09/05/16 1025 09/05/16 0544 Results 24 hrs Laboratory Tests Test 09/05/16 05:44 09/05/16 08:20 09/05/16 10:25 09/05/16 12:00 Sodium Level 138 Potassium Level 3.1 L Chloride Level 98 Carbon Dioxide Level 29 Anion Gap 14 Blood Urea Nitrogen 27 #H Creatinine 0.89 Glucose Level 57 #L Calcium Level 8.3 L Bedside Glucose 63 L 104 White Blood Count 4.8 Red Blood Count 3.79 L Hemoglobin 9.6 L Hematocrit 34.3 L Mean Corpuscular Volume 90.5 Mean Corpuscular Hemoglobin 25.3 L Mean Corpuscular Hemoglobin Concent 28.0 L Red Cell Distribution Width 24.3 H Platelet Count 129 L Mean Platelet Volume 10.4 Neutrophils % 69.7 Lymphocytes % 15.7 Monocytes % 9.5 Eosinophils % 4.1 Basophils % 0.4 Nucleated Red Blood Cells % 0.0 Neutrophils # 3.4 Lymphocytes # 0.8 Monocytes # 0.5 Eosinophils # 0.2 Basophils # 0.0 Nucleated Red Blood Cells # 0.0 Prothrombin Time 17.0 H Prothrombin Time Ratio 1.3 INR International Normalized Ratio 1.38 Activated Partial Thromboplast Time 40.5 H Test 09/05/16 17:14 09/05/16 20:38 Bedside Glucose 109 134 Medications Medications Current Medications Acetaminophen (Tylenol Tab) 650 mg Q6H PRN PO PAIN AND OR ELEVATED TEMP; Start 08/27/16 at 23:00 Insulin Glargine (Lantus) 10 unit QAM SC Last administered on 09/04/16 08:50; Admin Dose 10 UNIT; Start 08/28/16 at 09:00 Ondansetron HCl (Zofran Inj) 4 mg Q6H PRN IV NAUSEA AND/OR VOMITING; Start at 23:00 Carvedilol (Coreg) 3.125 mg BID PO Last administered on 08/29/16 09:54; Admin Dose 3.125 MG; Start 08/28/16 at 09:00; Status Future Hold Isosorbide Dinitrate (Isordil) 10 mg TID PO Last administered on 08/29/16 09:54 ; Admin Dose 10 MG; Start 08/28/16 at 09:00; Status Future Hold Sucralfate (Carafate) 1 gm QID PO Last administered on 09/05/16 20:39; Admin Dose 1 GM; Start 08/28/16 at 09:00 Morphine Sulfate (morphine) 2 mg Q2H PRN IV PAIN Last administered on 09/01/16 10:22; Admin Dose 2 MG; Start 09/01/16 at 01:30 Digoxin (Digoxin) 0.125 mg Q2D@13 PO Last administered on 09/05/16 13:49; Admin Dose 0.125 MG; Start 09/03/16 at 13:00 Ascorbic Acid (Vitamin C) 500 mg DAILY PO Last administered on 09/05/16 09:45; Admin Dose 500 MG; Start 09/03/16 at 10:30 Aspirin (Aspirin) 81 mg DAILY PO Last administered on 09/05/16 09:45; Admin Dose 81 MG; Start 09/03/16 at 10:30 Docusate Sodium (Colace) 200 mg QHS PO Last administered on 09/05/16 20:39; Admin Dose 200 MG; Start 09/03/16 at 21:00 Zinc Sulfate (Zinc Sulfate) 220 mg DAILY PO Last administered on 09/05/16 09:45 ; Admin Dose 220 MG; Start 09/03/16 at 10:30 Multivitamins Therapeutic (Theragran) 1 tab DAILY PO Last administered on 09:45; Admin Dose 1 TAB; Start 09/03/16 at 10:30 Miscellaneous Information 1 ea NOTE XX Last administered on 09/05/16 08:52; Admin Dose 1 EA; Start 09/03/16 at 11:00 Glucose (Glutose) 15 gm Q15M PRN PO DECREASED GLUCOSE; Start 09/03/16 at 11:00 Glucose (Glutose) 22.5 gm Q15M PRN PO DECREASED GLUCOSE; Start 09/03/16 at 11:00 Dextrose (D50w Syringe) 25 ml Q15M PRN IV DECREASED GLUCOSE; Start 09/03/16 at 11:00 Dextrose (D50w Syringe) 50 ml Q15M PRN IV DECREASED GLUCOSE; Start 09/03/16 at 11:00 Glucagon (Glucagen) 1 mg Q15M PRN IM DECREASED GLUCOSE; Start 09/03/16 at 11:00 Glucose (Glutose) 15 gm Q15M PRN BUCCAL DECREASED GLUCOSE; Start 09/03/16 at 11: 00 Mupirocin (Bactroban) 1 applic BID TOP Last administered on 09/05/16 20:40; Admin Dose 1 APPLIC; Start 09/03/16 at 21:00 Pantoprazole (Protonix Tab) 40 mg DAILY@06 PO Last administered on 09/05/16 05: 28; Admin Dose 40 MG; Start 09/05/16 at 06:00 Hydralazine HCl (Apresoline) 10 mg Q8 PO Last administered on 09/05/16 13:49; Admin Dose 10 MG; Start 09/04/16 at 22:00 Furosemide (Lasix) 20 mg DAILY IV ; Start 09/05/16 at 09:01 Warfarin Sodium (Coumadin) 2 mg DAILY@17 PO Last administered on 09/05/16 17:16 ; Admin Dose 2 MG; Start 09/05/16 at 17:00 YANIRA HART MD Sep 05, 2016 21:45
[2016-09-06] VITALS (12 sets, daily range): BP systolic 108–136; BP diastolic 53–60; PULSE 60–64; RESP 15–18
[2016-09-06] MEDS: PANTOPRAZOLE (EC) 40 MG TAB PO SCH (05:31)
[2016-09-06 07:09] LABS: INR 1.43; PROTIME 17.5 Sec (12.2-14.2); PT RATIO 1.4
[2016-09-06 07:10] LABS: PARTIAL THROMBOPLASTIN TIME 41.4 Sec (25.0-35.0)
[2016-09-06] MEDS: INSULIN ASPART [NOVOLOG] 3 ML PEN SC SCH ×4 (07:25→21:00)
[2016-09-06] MEDS: INSULIN GLARGINE [LANtus] 3 ML PEN SC SCH (08:55)
[2016-09-06] MEDS: SUCRALFATE 1 GM TAB PO SCH ×4 (10:29→21:47)
[2016-09-06] MEDS: MULTIVITAMINS THERAPEUTIC TAB PO SCH (10:29)
[2016-09-06] MEDS: FUROSEMIDE 20 MG INJ IV SCH (10:29)
[2016-09-06] MEDS: ZINC SULFATE 220 MG CAP PO SCH (10:29)
[2016-09-06] MEDS: ASPIRIN 81 MG TAB PO SCH (10:29)
[2016-09-06] MEDS: ASCORBIC ACID 500 MG TAB PO SCH (10:29)
[2016-09-06 10:39] LABS: ADD SCAN DIFF NO
[2016-09-06 10:41] LABS: ABNORMAL IP MESSAGE 1; BASOPHILS % 0.5 % (0.0-2.0); EOSINOPHILS # 0.1 10^3/ul (0.0-0.5); EOSINOPHILS % 2.5 % (0.0-7.0); HEMATOCRIT 32.1 % (42.0-52.0); HEMOGLOBIN 9.5 g/dl (14.0-18.0); LYMPHOCYTES # 1.2 10^3/ul (0.8-2.9); LYMPHOCYTES % 21.6 % (15.0-51.0); MEAN CORPUSCULAR HEMOGLOBIN 26.7 pg (29.0-33.0); MEAN CORPUSCULAR HGB CONC 29.6 g/dl (32.0-37.0); MEAN CORPUSCULAR VOLUME 90.2 fl (82.0-101.0); MEAN PLATELET VOLUME 11.2 fl (7.4-10.4); MONOCYTE # 0.6 10^3/ul (0.3-0.9); MONOCYTES % 10.5 % (0.0-11.0); NEUTROPHIL # 3.7 10^3/ul (1.6-7.5); NEUTROPHILS % 64.5 % (39.0-77.0); NUCLEATED RED BLOOD CELLS% 0.4 /100WBC (0.0-0.0); PLATELET COUNT 172 10^3/UL (140-415); RED BLOOD COUNT 3.56 10^6/ul (4.70-6.10); RED CELL DISTRIBUTION WIDTH 23.9 % (11.5-14.5); WHITE BLOOD COUNT 5.7 10^3/ul (4.8-10.8)
[2016-09-06 10:44] LABS: POTASSIUM 3.5 mmol/L (3.5-5.1)
[2016-09-06 10:46] LABS: CREATININE 1.22 mg/dl (0.61-1.24)
[2016-09-06 10:47] LABS: CALCIUM 8.8 mg/dl (8.4-10.2); MAGNESIUM 1.6 mg/dl (1.7-2.5)
--- NOTE | 2016-09-06 10:49 | PN ---
Date/Time of Note Date/Time of Note DATE: 09/06/16 TIME: 10:38 Assessment/Plan VTE Prophylaxis VTE Prophylaxis Intervention: other (eliquis) Lines/Catheters [facility]from [facility] Saline Lock Urinary Cath still in place: No Assessment/Plan Assessment/Plan An 81-year-old male with the following medical problems: 1. Endstage CHF 2. s/p Severe sepsis with lactic acidosis 2/2 UTI 3. Chronic kidney disease, requiring dialysis more for volume removal 2/2 #1 4. Acute respiratory failure 2/2 CHF successfully extubated 09/02/16 5. Diabetes mellitus type 2 : 6. Paroxysmal atrial fibrillation. 8. Coronary artery disease with Severe isch CM s/p CABG and AICD 9 Chronic hypochromic anemia secondary to end-stage renal disease. 10. Chronic liver cirrhosis with coagulopathy with Mild hyperbilirubinemia with transaminitis 11 Methicillin-resistant Staphylococcus aureus, nares. s/p 7 days of bactroban 12. Severe debility PLAN: * Patient needs continued HD and diuretic therapy for continued volume removal * Has whitney now and will need Permacath per Nephro, Needs cardiac clearance prior to permacath placement * Continue abx till cleared by ID / monitor lytes and hgb * Continue puree diet today and awaiting PT eval * Titrate insulin therapy as indicated * ?Hospice eval * Switch coumadin to eliquis for easier mgt PROPHYLAXIS: SCDs / Eliquis / PPI as well Subjective 24 Hr Interval Summary Free Text/Dictation Nursing reports no acute overnight events. no new complaints Spoke at lenght with nephro Exam/Review of Systems Vital Signs Vitals Vital Signs Date Time Temp Pulse Resp B/P Pulse Ox O2 Delivery O2 Flow Rate FiO2 09/06/16 08:06 64 09/06/16 07:53 98.0 18 136/60 98 09/05/16 19:48 Nasal Cannula 4.0 09/02/16 11:08 30 Intake and Output 09/05/16 09/05/16 09/06/16 15:00 23:00 07:00 Intake Total 900 ml 100 ml Output Total 300 ml Balance 600 ml 100 ml Exam Constitutional: alert, oriented, cachectic Head: atraumatic, normocephalic Eyes: PERRL ENMT: mucosa pink and moist Neck: jvd Respiratory: crackles/rales, diminished breath sounds Cardiovascular: irregular rhythm, murmurs/extra sounds Gastrointestinal: bowel sounds, non-tender, soft Extremities: No edema Neurological: lethargic, No focal weakness Results Result Diagram: 09/05/16 1025 09/05/16 0544 Results 24 hrs Laboratory Tests Test 09/05/16 12:00 09/05/16 17:14 09/05/16 20:38 09/06/16 06:00 Bedside Glucose 104 109 134 Prothrombin Time 17.5 H Prothrombin Time Ratio 1.4 INR International Normalized Ratio 1.43 Activated Partial Thromboplast Time 41.4 H Test 09/06/16 07:57 Bedside Glucose 89 Medications Medications Current Medications Acetaminophen (Tylenol Tab) 650 mg Q6H PRN PO PAIN AND OR ELEVATED TEMP; Start 08/27/16 at 23:00 Insulin Glargine (Lantus) 10 unit QAM SC Last administered on 09/06/16 08:55; Admin Dose 10 UNIT; Start 08/28/16 at 09:00 Ondansetron HCl (Zofran Inj) 4 mg Q6H PRN IV NAUSEA AND/OR VOMITING; Start at 23:00 Carvedilol (Coreg) 3.125 mg BID PO Last administered on 08/29/16 09:54; Admin Dose 3.125 MG; Start 08/28/16 at 09:00; Status Future Hold Isosorbide Dinitrate (Isordil) 10 mg TID PO Last administered on 08/29/16 09:54 ; Admin Dose 10 MG; Start 08/28/16 at 09:00; Status Future Hold Sucralfate (Carafate) 1 gm QID PO Last administered on 09/05/16 20:39; Admin Dose 1 GM; Start 08/28/16 at 09:00 Morphine Sulfate (morphine) 2 mg Q2H PRN IV PAIN Last administered on 09/01/16 10:22; Admin Dose 2 MG; Start 09/01/16 at 01:30 Digoxin (Digoxin) 0.125 mg Q2D@13 PO Last administered on 09/05/16 13:49; Admin Dose 0.125 MG; Start 09/03/16 at 13:00 Ascorbic Acid (Vitamin C) 500 mg DAILY PO Last administered on 09/05/16 09:45; Admin Dose 500 MG; Start 09/03/16 at 10:30 Aspirin (Aspirin) 81 mg DAILY PO Last administered on 09/05/16 09:45; Admin Dose 81 MG; Start 09/03/16 at 10:30 Docusate Sodium (Colace) 200 mg QHS PO Last administered on 09/05/16 20:39; Admin Dose 200 MG; Start 09/03/16 at 21:00 Zinc Sulfate (Zinc Sulfate) 220 mg DAILY PO Last administered on 09/05/16 09:45 ; Admin Dose 220 MG; Start 09/03/16 at 10:30 Multivitamins Therapeutic (Theragran) 1 tab DAILY PO Last administered on 09:45; Admin Dose 1 TAB; Start 09/03/16 at 10:30 Miscellaneous Information 1 ea NOTE XX Last administered on 09/05/16 08:52; Admin Dose 1 EA; Start 09/03/16 at 11:00 Glucose (Glutose) 15 gm Q15M PRN PO DECREASED GLUCOSE; Start 09/03/16 at 11:00 Glucose (Glutose) 22.5 gm Q15M PRN PO DECREASED GLUCOSE; Start 09/03/16 at 11:00 Dextrose (D50w Syringe) 25 ml Q15M PRN IV DECREASED GLUCOSE; Start 09/03/16 at 11:00 Dextrose (D50w Syringe) 50 ml Q15M PRN IV DECREASED GLUCOSE; Start 09/03/16 at 11:00 Glucagon (Glucagen) 1 mg Q15M PRN IM DECREASED GLUCOSE; Start 09/03/16 at 11:00 Glucose (Glutose) 15 gm Q15M PRN BUCCAL DECREASED GLUCOSE; Start 09/03/16 at 11: 00 Mupirocin (Bactroban) 1 applic BID TOP Last administered on 09/05/16 20:40; Admin Dose 1 APPLIC; Start 09/03/16 at 21:00 Pantoprazole (Protonix Tab) 40 mg DAILY@06 PO Last administered on 09/06/16 05: 31; Admin Dose 40 MG; Start 09/05/16 at 06:00 Hydralazine HCl (Apresoline) 10 mg Q8 PO Last administered on 09/06/16 05:32; Admin Dose 10 MG; Start 09/04/16 at 22:00 Furosemide (Lasix) 20 mg DAILY IV ; Start 09/05/16 at 09:01 Warfarin Sodium (Coumadin) 2 mg DAILY@17 PO Last administered on 09/05/16t 17:16 ; Admin Dose 2 MG; Start 09/05/16 at 17:00 BOLA SOLO Sep 06, 2016 10:48
--- NOTE | 2016-09-06 13:21 | CONS ---
Date/Time of Note Date/Time of Note DATE: 09/06/16 TIME: 13:18 Assessment/Plan Assessment/Plan Chief Complaint/Hosp Course IMp: 1.CHF-systolic acute on chronic 2.Hypotension-Levo just turned off 3.REnal failurwe s/p HD 4.Cardiomyopathy with low EF 5.AICD 6.H/O cad s/p cabg 7.PAF 8.Coagulopathy-overall improved 9. Resp failure-improved s/p extubation Recc: -Tele -Continue abx's and f/'u cx data -HD for volume removal -Continue digoxin QOD -Continue to follow BP closely on low dose hydralazine afterload reduction and will resume low dose lasix -Now resumed on apixaban 2.5 bid Problems: Consultation Date/Type/Reason Admit Date/Time Aug 27, 2016 at 21:25 Initial Consult Date 08/28/2016 Type of Consultation: Cardiology Reason for Consultation Cardiomyopathy/CHF Referring Provider: BOLA SOLO Exam/Review of Systems Vital Signs Vitals Vital Signs Date Time Temp Pulse Resp B/P Pulse Ox O2 Delivery O2 Flow Rate FiO2 09/06/16 12:06 60 09/06/16 11:58 98.0 18 109/59 98 09/06/16 08:00 Nasal Cannula 4.0 09/02/16 11:08 30 Intake and Output 09/05/16 09/05/16 09/06/16 15:00 23:00 07:00 Intake Total 900 ml 100 ml Output Total 300 ml Balance 600 ml 100 ml Exam Review of Systems: CONSTITUTIONAL: No fevers, chills. PULMONARY: No sob CARDIOVASCULAR: No chest pain/palpitations GASTROINTESTINAL: No nausea/vomiting. GENITOURINARY: No hematuria/dysuria. MUSCULOSKELETAL: No myagias/arthalgias. PSYCHIATRIC: The patient denies depression. NEUROLOGIC: Mild generalized weakness Constitutional: alert Psych: no complaints Head: normocephalic ENMT: mucosa pink and moist Neck: jvd (9 cm water), supple Respiratory: diminished breath sounds (at bases/B) Cardiovascular: regular rate and rhythm Gastrointestinal: non-tender, soft Musculoskeletal: muscle tone (normal) Extremities: edema (trace/B) Results Result Diagram: 09/06/16 0600 09/06/16 0600 Results 24 hrs Laboratory Tests Test 09/05/16 17:14 09/05/16 20:38 09/06/16 06:00 09/06/16 07:57 Bedside Glucose 109 134 89 White Blood Count 5.7 Red Blood Count 3.56 L Hemoglobin 9.5 L Hematocrit 32.1 L Mean Corpuscular Volume 90.2 Mean Corpuscular Hemoglobin 26.7 L Mean Corpuscular Hemoglobin Concent 29.6 L Red Cell Distribution Width 23.9 H Platelet Count 172 # Mean Platelet Volume 11.2 H Neutrophils % 64.5 Lymphocytes % 21.6 Monocytes % 10.5 Eosinophils % 2.5 Basophils % 0.5 Nucleated Red Blood Cells % 0.4 H Neutrophils # 3.7 Lymphocytes # 1.2 Monocytes # 0.6 Eosinophils # 0.1 Basophils # 0.0 Nucleated Red Blood Cells # 0.0 Prothrombin Time 17.5 H Prothrombin Time Ratio 1.4 INR International Normalized Ratio 1.43 Activated Partial Thromboplast Time 41.4 H Sodium Level 135 Potassium Level 3.5 Chloride Level 95 L Carbon Dioxide Level 27 Anion Gap 17 H Blood Urea Nitrogen 33 H Creatinine 1.22 Glucose Level 89 Calcium Level 8.8 Magnesium Level 1.6 L Test 09/06/16 11:44 Bedside Glucose 137 Medications Medications Current Medications Acetaminophen (Tylenol Tab) 650 mg Q6H PRN PO PAIN AND OR ELEVATED TEMP; Start 08/27/16 at 23:00 Insulin Glargine (Lantus) 10 unit QAM SC Last administered on 09/06/16 08:55; Admin Dose 10 UNIT; Start 08/28/16 at 09:00 Ondansetron HCl (Zofran Inj) 4 mg Q6H PRN IV NAUSEA AND/OR VOMITING; Start at 23:00 Carvedilol (Coreg) 3.125 mg BID PO Last administered on 08/29/16 09:54; Admin Dose 3.125 MG; Start 08/28/16 at 09:00; Status Future Hold Isosorbide Dinitrate (Isordil) 10 mg TID PO Last administered on 08/29/16 09:54 ; Admin Dose 10 MG; Start 08/28/16 at 09:00; Status Future Hold Sucralfate (Carafate) 1 gm QID PO Last administered on 09/06/16 10:29; Admin Dose 1 GM; Start 08/28/16 at 09:00 Morphine Sulfate (morphine) 2 mg Q2H PRN IV PAIN Last administered on 09/01/16 10:22; Admin Dose 2 MG; Start 09/01/16 at 01:30 Digoxin (Digoxin) 0.125 mg Q2D@13 PO Last administered on 09/05/16 13:49; Admin Dose 0.125 MG; Start 09/03/16 at 13:00 Ascorbic Acid (Vitamin C) 500 mg DAILY PO Last administered on 09/06/16 10:29; Admin Dose 500 MG; Start 09/03/16 at 10:30 Aspirin (Aspirin) 81 mg DAILY PO Last administered on 09/06/16 10:29; Admin Dose 81 MG; Start 09/03/16 at 10:30 Docusate Sodium (Colace) 200 mg QHS PO Last administered on 09/05/16 20:39; Admin Dose 200 MG; Start 09/03/16 at 21:00 Zinc Sulfate (Zinc Sulfate) 220 mg DAILY PO Last administered on 09/06/16 10:29 ; Admin Dose 220 MG; Start 09/03/16 at 10:30 Multivitamins Therapeutic (Theragran) 1 tab DAILY PO Last administered on 10:29; Admin Dose 1 TAB; Start 09/03/16 at 10:30 Miscellaneous Information 1 ea NOTE XX Last administered on 09/05/16 08:52; Admin Dose 1 EA; Start 09/03/16 at 11:00 Glucose (Glutose) 15 gm Q15M PRN PO DECREASED GLUCOSE; Start 09/03/16 at 11:00 Glucose (Glutose) 22.5 gm Q15M PRN PO DECREASED GLUCOSE; Start 09/03/16 at 11:00 Dextrose (D50w Syringe) 25 ml Q15M PRN IV DECREASED GLUCOSE; Start 09/03/16 at 11:00 Dextrose (D50w Syringe) 50 ml Q15M PRN IV DECREASED GLUCOSE; Start 09/03/16 at 11:00 Glucagon (Glucagen) 1 mg Q15M PRN IM DECREASED GLUCOSE; Start 09/03/16 at 11:00 Glucose (Glutose) 15 gm Q15M PRN BUCCAL DECREASED GLUCOSE; Start 09/03/16 at 11: 00 Mupirocin (Bactroban) 1 applic BID TOP Last administered on 09/05/16 20:40; Admin Dose 1 APPLIC; Start 09/03/16 at 21:00 Pantoprazole (Protonix Tab) 40 mg DAILY@06 PO Last administered on 09/06/16 05: 31; Admin Dose 40 MG; Start 09/05/16 at 06:00 Hydralazine HCl (Apresoline) 10 mg Q8 PO Last administered on 09/06/16 05:32; Admin Dose 10 MG; Start 09/04/16 at 22:00 Furosemide (Lasix) 20 mg DAILY IV Last administered on 09/06/16 10:29; Admin Dose 20 MG; Start 09/05/16 at 09:01 Apixaban (Eliquis) 2.5 mg BID PO ; Start 09/06/16 at 21:00 POLI SAN Sep 06, 2016 13:20
[2016-09-06] MEDS: MUPIROCIN 2% 22 GM OINT TOP SCH ×2 (15:37→21:48)
--- NOTE | 2016-09-06 16:17 | CONS ---
Date/Time of Note Date/Time of Note DATE: 09/06/16 TIME: 16:13 Consult Date/Type/Reason Admit Date/Time Aug 27, 2016 at 21:25 Type of Consultation: Pulm Ordering Provider: BOLA SOLO Subjective No events overnight. Objective Vital Signs Date Time Temp Pulse Resp B/P Pulse Ox O2 Delivery O2 Flow Rate FiO2 09/06/16 16:08 64 09/06/16 16:01 98.0 18 118/57 98 09/06/16 08:00 Nasal Cannula 4.0 09/02/16 11:08 30 Intake and Output 09/05/16 09/05/16 09/06/16 15:00 23:00 07:00 Intake Total 900 ml 100 ml Output Total 300 ml Balance 600 ml 100 ml Exam HEENT: Normocephalic, atraumatic. NECK: Supple, very mild jugular venous distention. CARDIOVASCULAR: Paced S1 and S2 at 16. No murmurs, rubs, or gallops. CHEST: Bilateral crackles. ABDOMEN: Soft, nontender. EXTREMITIES: There is trace lower extremity edema. Results/Medications Result Diagram: 09/06/16 0600 09/06/16 0600 Results 24 hrs Laboratory Tests Test 09/05/16 17:14 09/05/16 20:38 09/06/16 06:00 09/06/16 07:57 Bedside Glucose 109 134 89 White Blood Count 5.7 Red Blood Count 3.56 L Hemoglobin 9.5 L Hematocrit 32.1 L Mean Corpuscular Volume 90.2 Mean Corpuscular Hemoglobin 26.7 L Mean Corpuscular Hemoglobin Concent 29.6 L Red Cell Distribution Width 23.9 H Platelet Count 172 # Mean Platelet Volume 11.2 H Neutrophils % 64.5 Lymphocytes % 21.6 Monocytes % 10.5 Eosinophils % 2.5 Basophils % 0.5 Nucleated Red Blood Cells % 0.4 H Neutrophils # 3.7 Lymphocytes # 1.2 Monocytes # 0.6 Eosinophils # 0.1 Basophils # 0.0 Nucleated Red Blood Cells # 0.0 Prothrombin Time 17.5 H Prothrombin Time Ratio 1.4 INR International Normalized Ratio 1.43 Activated Partial Thromboplast Time 41.4 H Sodium Level 135 Potassium Level 3.5 Chloride Level 95 L Carbon Dioxide Level 27 Anion Gap 17 H Blood Urea Nitrogen 33 H Creatinine 1.22 Glucose Level 89 Calcium Level 8.8 Magnesium Level 1.6 L Test 09/06/16 11:44 Bedside Glucose 137 Medications Current Medications Acetaminophen (Tylenol Tab) 650 mg Q6H PRN PO PAIN AND OR ELEVATED TEMP; Start 08/27/16 at 23:00 Insulin Glargine (Lantus) 10 unit QAM SC Last administered on 09/06/16 08:55; Admin Dose 10 UNIT; Start 08/28/16 at 09:00 Ondansetron HCl (Zofran Inj) 4 mg Q6H PRN IV NAUSEA AND/OR VOMITING; Start at 23:00 Carvedilol (Coreg) 3.125 mg BID PO Last administered on 08/29/16 09:54; Admin Dose 3.125 MG; Start 08/28/16 at 09:00; Status Future Hold Isosorbide Dinitrate (Isordil) 10 mg TID PO Last administered on 08/29/16 09:54 ; Admin Dose 10 MG; Start 08/28/16 at 09:00; Status Future Hold Sucralfate (Carafate) 1 gm QID PO Last administered on 09/06/16 15:36; Admin Dose 1 GM; Start 08/28/16 at 09:00 Morphine Sulfate (morphine) 2 mg Q2H PRN IV PAIN Last administered on 09/01/16 10:22; Admin Dose 2 MG; Start 09/01/16 at 01:30 Digoxin (Digoxin) 0.125 mg Q2D@13 PO Last administered on 09/05/16 13:49; Admin Dose 0.125 MG; Start 09/03/16 at 13:00 Ascorbic Acid (Vitamin C) 500 mg DAILY PO Last administered on 09/06/16 10:29; Admin Dose 500 MG; Start 09/03/16 at 10:30 Aspirin (Aspirin) 81 mg DAILY PO Last administered on 09/06/16 10:29; Admin Dose 81 MG; Start 09/03/16 at 10:30 Docusate Sodium (Colace) 200 mg QHS PO Last administered on 09/05/16 20:39; Admin Dose 200 MG; Start 09/03/16 at 21:00 Zinc Sulfate (Zinc Sulfate) 220 mg DAILY PO Last administered on 09/06/16 10:29 ; Admin Dose 220 MG; Start 09/03/16 at 10:30 Multivitamins Therapeutic (Theragran) 1 tab DAILY PO Last administered on 10:29; Admin Dose 1 TAB; Start 09/03/16 at 10:30 Miscellaneous Information 1 ea NOTE XX Last administered on 09/05/16 08:52; Admin Dose 1 EA; Start 09/03/16 at 11:00 Glucose (Glutose) 15 gm Q15M PRN PO DECREASED GLUCOSE; Start 09/03/16 at 11:00 Glucose (Glutose) 22.5 gm Q15M PRN PO DECREASED GLUCOSE; Start 09/03/16 at 11:00 Dextrose (D50w Syringe) 25 ml Q15M PRN IV DECREASED GLUCOSE; Start 09/03/16 at 11:00 Dextrose (D50w Syringe) 50 ml Q15M PRN IV DECREASED GLUCOSE; Start 09/03/16 at 11:00 Glucagon (Glucagen) 1 mg Q15M PRN IM DECREASED GLUCOSE; Start 09/03/16 at 11:00 Glucose (Glutose) 15 gm Q15M PRN BUCCAL DECREASED GLUCOSE; Start 09/03/16 at 11: 00 Mupirocin (Bactroban) 1 applic BID TOP Last administered on 09/06/16 15:37; Admin Dose 1 APPLIC; Start 09/03/16 at 21:00 Pantoprazole (Protonix Tab) 40 mg DAILY@06 PO Last administered on 09/06/16 05: 31; Admin Dose 40 MG; Start 09/05/16 at 06:00 Hydralazine HCl (Apresoline) 10 mg Q8 PO Last administered on 09/06/16 15:37; Admin Dose 10 MG; Start 09/04/16 at 22:00 Furosemide (Lasix) 20 mg DAILY IV Last administered on 09/06/16 10:29; Admin Dose 20 MG; Start 09/05/16 at 09:01 Apixaban (Eliquis) 2.5 mg BID PO ; Start 09/06/16 at 21:00 Carvedilol (Coreg) 1.5625 mg BID PO ; Start 09/06/16 at 21:00 Assessment/Plan Additional Assessment/Plan IMP: 1. s/p septic shock, most likely septic in a patient with underlying cardiomyopathy 2. Encephalopathy-improved 3. Renal Failure--improved 4. s/p Acute Hypercapnic resp failure 5. Anemia RECS: 1. PT/OT 2. Optimize nutrition 3. De-escalate abx 4. VTE prophylaxis JESUS HURT MD Sep 06, 2016 16:17
[2016-09-06] MEDS ORDERED: APIXABAN 5 MG TABLET PO SCH (21:00)
[2016-09-06] MEDS: DOCUSATE SODIUM 100 MG CAP PO SCH (21:47)
[2016-09-06] MEDS: HEPARIN 5,000 UNIT/0.5 ML VIAL SC SCH (21:55)
--- NOTE | 2016-09-06 21:58 | CONS ---
DATE OF ADMISSION: 08/27/2016 DATE OF CONSULTATION: 09/06/2016 TYPE OF CONSULTATION: Surgical. REFERRING PHYSICIAN: Dr. Solo CHIEF COMPLAINT: 1. Renal failure. 2. Ischemic cardiomyopathy. 3. Diabetes. 4. Atrial fibrillation. 5. Coronary artery disease. 6. Congestive heart failure. 7. Coagulopathy, iatrogenic. HISTORY OF PRESENT ILLNESS: Jluis Canela is an 81-year-old male with multiple significant marie rbidities who was initially admitted with fluid volume overload and heart failure, was hospitalized in ICU, and required a Fidel dialysis catheter for urgent dialysis. He has been more stabilized a nd is on tele currently. There are no recorded fevers or chills. No cough. No seizure. No blood per mouth or rectum. No nausea, vomiting. No rash. No bloating. He is having bowel function. Vergara rgical consult is obtained for evaluation for conversion of his Fidel to a PermCath. PAST MEDICAL HISTORY: 1. Congestive heart failure. 2. Sepsis. 3. Pneumonia. 4. Urinary tract infection. 5. Acute renal failure. 6. Ischemic cardiomyopathy with ejection fraction of 25%. 7. Diabetes mellitus type 2. 8. Atrial fibrillation. 9. Coronary artery disease. 10. Acute on chronic congestive heart failure. 11. Lactic acidosis. 12. Volume overload. 13. Pleural effusions. 14. Cardiomegaly. 15. Anasarca. 16. Atherosclerotic vascular disease. 17. Nonobstructive 3.8 mm nephrolith in lower pole of the right kidney frank and 9.6 x 5.3 nonobstr uctive kidney stone on the left. 18. Ascites. 19. The 4.5 cm bilateral benign adrenal cysts. 20. Iatrogenic coagulopathy. 21. Electrolyte abnormalities. 22. Hypoalbuminemia. 23. Anemia. 24. Decubitus ulceration. PAST SURGICAL HISTORY: 1. Three-vessel CABG. 2. AICD. MEDICATIONS: As per MAR, including Eliquis. ALLERGIES: DIPYRONE. SOCIAL HISTORY: No current alcohol, drugs, or tobacco. FAMILY HISTORY: Noncontributory. REVIEW OF SYSTEMS: A 12-point of systems negative unless listed in HPI. PHYSICAL EXAMINATION: VITAL SIGNS: Temperature is 98, pulse 60s, blood pressure 118/57, saturating 98%. GENERAL: No acute distress, responsive. HEENT: Pupils equal, reactive. No scleral icterus. Mucous membranes are moist. NECK: Minimal JVD. Right IJ Fidel. Supple. PULMONARY: Normal respiratory effort. No wheezing. CARDIAC: S1, S2 present. ABDOMEN: Soft, nontender. EXTREMITIES: No edema. VASCULAR: Cap refill less than 2 seconds. NEUROLOGIC: Alert, oriented, moves all 4 extremities grossly. SKIN: No rashes, no jaundice; however some decubitus stage II ulcerations. LYMPHATIC: No inguinal or cervical lymphadenopathy. LABORATORY AND RADIOGRAPHIC: As per chart and HPI. ASSESSMENT AND PLAN: Jluis Canela is an 81-year-old male with multiple significant comorbiditi es. 1. Acute renal failure in need of prolonged dialysis. He currently has a right IJ Fidel, which n eeds to be converted to a PermCath. After medical optimization and clearance, we will proceed with conversion into PermCath. 2. Acute on chronic congestive heart failure with cardiomyopathy and cardiomegaly and ejection frac tion of 25%. Continue cardiac optimization and judicious fluid management. 3. Anemia without evidence of acute blood loss. Continue monitoring. 4. Hypoalbuminemia. Will benefit from nutritional optimization. 5. Recent urinary tract infection and pneumonia with sepsis and shock, status post antibiotics and judicious fluid management. Improving. 6. Diabetes mellitus type 2. Continue nutrition and medication optimization. 7. Paroxysmal atrial fibrillation. Continue medical and cardiac optimization. Patient is anticoag ulated. 8. Recent acute respiratory failure secondary to multiple issues. Successfully extubated on 2016. Thank you very much for consulting me in this patient's care. Dictated By: GUILLERMO WILLAMS/NTS Conf#: [id number] DID#: [id number] CC: BRITTA ADAM MD; BOLA SOLO MD;*EndCC*
--- NOTE | 2016-09-06 22:15 | CONS ---
Date/Time of Note Date/Time of Note DATE: 09/06/16 TIME: 22:14 Assessment/Plan Assessment/Plan Chief Complaint/Hosp Course SYSTOLIC HEART FAILURE better JAZLYN ON CKD LOW EF ASHD DM HX CAD AICD PLACEMENT s/p anasarca PLAN hd mwf will need permacath Problems: Consultation Date/Type/Reason Admit Date/Time Aug 27, 2016 at 21:25 Initial Consult Date no distress Type of Consultation: renal Referring Provider: BOLA SOLO 24 HR Interval Summary Constitutional: no complaints Exam/Review of Systems Vital Signs Vitals Vital Signs Date Time Temp Pulse Resp B/P Pulse Ox O2 Delivery O2 Flow Rate FiO2 09/06/16 20:19 60 09/06/16 20:00 94.3 15 111/53 100 09/06/16 08:00 Nasal Cannula 4.0 09/02/16 11:08 30 Intake and Output 09/05/16 09/05/16 09/06/16 15:00 23:00 07:00 Intake Total 900 ml 100 ml Output Total 300 ml Balance 600 ml 100 ml Exam Neck: supple Respiratory: diminished breath sounds Cardiovascular: regular rate and rhythm Gastrointestinal: bowel sounds (+), soft Extremities: edema (+) Results Result Diagram: 09/06/16 0600 09/06/16 0600 Results 24 hrs Laboratory Tests Test 09/06/16 06:00 09/06/16 07:57 09/06/16 11:44 09/06/16 17:37 White Blood Count 5.7 Red Blood Count 3.56 L Hemoglobin 9.5 L Hematocrit 32.1 L Mean Corpuscular Volume 90.2 Mean Corpuscular Hemoglobin 26.7 L Mean Corpuscular Hemoglobin Concent 29.6 L Red Cell Distribution Width 23.9 H Platelet Count 172 # Mean Platelet Volume 11.2 H Neutrophils % 64.5 Lymphocytes % 21.6 Monocytes % 10.5 Eosinophils % 2.5 Basophils % 0.5 Nucleated Red Blood Cells % 0.4 H Neutrophils # 3.7 Lymphocytes # 1.2 Monocytes # 0.6 Eosinophils # 0.1 Basophils # 0.0 Nucleated Red Blood Cells # 0.0 Prothrombin Time 17.5 H Prothrombin Time Ratio 1.4 INR International Normalized Ratio 1.43 Activated Partial Thromboplast Time 41.4 H Sodium Level 135 Potassium Level 3.5 Chloride Level 95 L Carbon Dioxide Level 27 Anion Gap 17 H Blood Urea Nitrogen 33 H Creatinine 1.22 Glucose Level 89 Calcium Level 8.8 Magnesium Level 1.6 L Bedside Glucose 89 137 107 Test 09/06/16 21:45 Bedside Glucose 146 Medications Medications Current Medications Acetaminophen (Tylenol Tab) 650 mg Q6H PRN PO PAIN AND OR ELEVATED TEMP; Start 08/27/16 at 23:00 Insulin Glargine (Lantus) 10 unit QAM SC Last administered on 09/06/16 08:55; Admin Dose 10 UNIT; Start 08/28/16 at 09:00 Ondansetron HCl (Zofran Inj) 4 mg Q6H PRN IV NAUSEA AND/OR VOMITING; Start at 23:00 Carvedilol (Coreg) 3.125 mg BID PO Last administered on 08/29/16 09:54; Admin Dose 3.125 MG; Start 08/28/16 at 09:00; Status Future Hold Isosorbide Dinitrate (Isordil) 10 mg TID PO Last administered on 08/29/16 09:54 ; Admin Dose 10 MG; Start 08/28/16 at 09:00; Status Future Hold Sucralfate (Carafate) 1 gm QID PO Last administered on 09/06/16 21:47; Admin Dose 1 GM; Start 08/28/16 at 09:00 Morphine Sulfate (morphine) 2 mg Q2H PRN IV PAIN Last administered on 09/01/16 10:22; Admin Dose 2 MG; Start 09/01/16 at 01:30 Digoxin (Digoxin) 0.125 mg Q2D@13 PO Last administered on 09/05/16 13:49; Admin Dose 0.125 MG; Start 09/03/16 at 13:00 Ascorbic Acid (Vitamin C) 500 mg DAILY PO Last administered on 09/06/16 10:29; Admin Dose 500 MG; Start 09/03/16 at 10:30 Aspirin (Aspirin) 81 mg DAILY PO Last administered on 09/06/16 10:29; Admin Dose 81 MG; Start 09/03/16 at 10:30 Docusate Sodium (Colace) 200 mg QHS PO Last administered on 09/06/16 21:47; Admin Dose 200 MG; Start 09/03/16 at 21:00 Zinc Sulfate (Zinc Sulfate) 220 mg DAILY PO Last administered on 09/06/16 10:29 ; Admin Dose 220 MG; Start 09/03/16 at 10:30 Multivitamins Therapeutic (Theragran) 1 tab DAILY PO Last administered on 10:29; Admin Dose 1 TAB; Start 09/03/16 at 10:30 Miscellaneous Information 1 ea NOTE XX Last administered on 09/05/16 08:52; Admin Dose 1 EA; Start 09/03/16 at 11:00 Glucose (Glutose) 15 gm Q15M PRN PO DECREASED GLUCOSE; Start 09/03/16 at 11:00 Glucose (Glutose) 22.5 gm Q15M PRN PO DECREASED GLUCOSE; Start 09/03/16 at 11:00 Dextrose (D50w Syringe) 25 ml Q15M PRN IV DECREASED GLUCOSE; Start 09/03/16 at 11:00 Dextrose (D50w Syringe) 50 ml Q15M PRN IV DECREASED GLUCOSE; Start 09/03/16 at 11:00 Glucagon (Glucagen) 1 mg Q15M PRN IM DECREASED GLUCOSE; Start 09/03/16 at 11:00 Glucose (Glutose) 15 gm Q15M PRN BUCCAL DECREASED GLUCOSE; Start 09/03/16 at 11: 00 Mupirocin (Bactroban) 1 applic BID TOP Last administered on 09/06/16 21:48; Admin Dose 1 APPLIC; Start 09/03/16 at 21:00 Pantoprazole (Protonix Tab) 40 mg DAILY@06 PO Last administered on 09/06/16 05: 31; Admin Dose 40 MG; Start 09/05/16 at 06:00 Hydralazine HCl (Apresoline) 10 mg Q8 PO Last administered on 09/06/16 21:47; Admin Dose 10 MG; Start 09/04/16 at 22:00 Furosemide (Lasix) 20 mg DAILY IV Last administered on 09/06/16 10:29; Admin Dose 20 MG; Start 09/05/16 at 09:01 Carvedilol (Coreg) 1.5625 mg BID PO Last administered on 09/06/16 21:48; Admin Dose 1.5625 MG; Start 09/06/16 at 21:00 Heparin Sodium (Porcine) (Heparin (5000 Units/0.5 ml)) 5,000 unit BID SC Last administered on 09/06/16t 21:55; Admin Dose 5,000 UNIT; Start 09/06/16 at 21:00 YANIRA HART MD Sep 06, 2016 22:15
[2016-09-07] VITALS (21 sets, daily range): BP systolic 105–149; BP diastolic 47–67; PULSE 60–65; RESP 18–24
[2016-09-07] MEDS: PANTOPRAZOLE (EC) 40 MG TAB PO SCH (06:35)
[2016-09-07 07:09] LABS: ADD SCAN DIFF NO
[2016-09-07 07:16] LABS: ABNORMAL IP MESSAGE 1; BASOPHILS % 0.5 % (0.0-2.0); EOSINOPHILS # 0.1 10^3/ul (0.0-0.5); EOSINOPHILS % 2.2 % (0.0-7.0); HEMATOCRIT 33.6 % (42.0-52.0); HEMOGLOBIN 9.9 g/dl (14.0-18.0); LYMPHOCYTES # 0.9 10^3/ul (0.8-2.9); LYMPHOCYTES % 14.9 % (15.0-51.0); MEAN CORPUSCULAR HEMOGLOBIN 25.6 pg (29.0-33.0); MEAN CORPUSCULAR HGB CONC 29.5 g/dl (32.0-37.0); MEAN CORPUSCULAR VOLUME 86.8 fl (82.0-101.0); MEAN PLATELET VOLUME 10.6 fl (7.4-10.4); MONOCYTE # 0.7 10^3/ul (0.3-0.9); MONOCYTES % 11.7 % (0.0-11.0); NEUTROPHIL # 4.1 10^3/ul (1.6-7.5); NEUTROPHILS % 70.4 % (39.0-77.0); NUCLEATED RED BLOOD CELLS% 0.3 /100WBC (0.0-0.0); PLATELET COUNT 221 10^3/UL (140-415); RED BLOOD COUNT 3.87 10^6/ul (4.70-6.10); RED CELL DISTRIBUTION WIDTH 24.2 % (11.5-14.5); WHITE BLOOD COUNT 5.8 10^3/ul (4.8-10.8)
[2016-09-07 07:25] LABS: INR 1.47; PROTIME 17.9 Sec (12.2-14.2); PT RATIO 1.4
[2016-09-07] MEDS: INSULIN ASPART [NOVOLOG] 3 ML PEN SC SCH ×4 (07:25→22:00)
[2016-09-07 07:26] LABS: PARTIAL THROMBOPLASTIN TIME 41.4 Sec (25.0-35.0)
[2016-09-07 07:28] LABS: CALCIUM 8.8 mg/dl (8.4-10.2); CREATININE 1.42 mg/dl (0.61-1.24)
[2016-09-07] MEDS: ASPIRIN 81 MG TAB PO SCH (09:42)
[2016-09-07] MEDS: FUROSEMIDE 20 MG INJ IV SCH (09:43)
[2016-09-07] MEDS: MULTIVITAMINS THERAPEUTIC TAB PO SCH (09:43)
[2016-09-07] MEDS: ASCORBIC ACID 500 MG TAB PO SCH (09:43)
[2016-09-07] MEDS: ZINC SULFATE 220 MG CAP PO SCH (09:43)
[2016-09-07] MEDS: SUCRALFATE 1 GM TAB PO SCH ×4 (09:43→22:30)
[2016-09-07] MEDS: MUPIROCIN 2% 22 GM OINT TOP SCH ×2 (09:46→22:31)
[2016-09-07] MEDS: HEPARIN 5,000 UNIT/0.5 ML VIAL SC SCH ×2 (09:56→22:33)
[2016-09-07] MEDS: INSULIN GLARGINE [LANtus] 3 ML PEN SC SCH (09:57)
--- NOTE | 2016-09-07 10:28 | PN ---
Date/Time of Note Date/Time of Note DATE: 09/07/16 TIME: 10:20 Assessment/Plan VTE Prophylaxis VTE Prophylaxis Intervention: other (Eliquis) Lines/Catheters [facility]from [facility]): Saline Lock Urinary Cath still in place: No Assessment/Plan Chief Complaint/Hosp Course Assessment/Plan: 81-year-old male with the following medical problems: 1. Endstage CHF - improved - f/u CV rec's, continue PO Hydralazine and very low dose BB, monitor 2. s/p Severe sepsis with lactic acidosis 2/2 UTI - improved now - s/p abx, monitor for now 3. Chronic kidney disease, requiring dialysis more for volume removal 2/2 # 1. UO appears minimal, although Cr levels only slightly elevated? - Patient needs continued HD and diuretic therapy for continued volume removal - Has whitney now and will need Permacath per Nephro, Needs cardiac clearance prior to permacath placement 4. Acute respiratory failure 2/2 CHF successfully extubated 09/02/16 - monitor 5. Diabetes mellitus type 2 - Titrate insulin therapy as indicated 6. Paroxysmal atrial fibrillation - rate controlled - monitor, f/u CV rec's 8. Coronary artery disease with Severe isch CM s/p CABG and AICD - monitor, f/u CV rec's 9 Chronic hypochromic anemia secondary to end-stage renal disease. - monitor H/H 10. Chronic liver cirrhosis with coagulopathy with Mild hyperbilirubinemia with transaminitis 11 Methicillin-resistant Staphylococcus aureus, nares. s/p 7 days of bactroban 12. Severe debility PROPHYLAXIS: SCDs / Eliquis / PPI as well Problems: Subjective 24 Hr Interval Summary Free Text/Dictation No acute events overnight, tolerating diet. Awaiting HD for later today. Exam/Review of Systems Vital Signs Vitals Vital Signs Date Time Temp Pulse Resp B/P Pulse Ox O2 Delivery O2 Flow Rate FiO2 09/07/16 08:12 96.2 63 24 138/63 100 09/06/16 23:04 Nasal Cannula 2.0 Intake and Output 09/06/16 09/06/16 09/07/16 15:00 23:00 07:00 Intake Total 700 ml 100 ml Output Total 200 ml 25 ml Balance 500 ml 75 ml Exam Constitutional: alert, oriented, cachectic Head: atraumatic, normocephalic Eyes: PERRL ENMT: mucosa pink and moist Neck: supple Respiratory: crackles/rales, diminished breath sounds Cardiovascular: irregular rhythm, murmurs/extra sounds Gastrointestinal: bowel sounds, non-tender, soft Extremities: No edema Neurological: lethargic, No focal weakness Results Result Diagram: 09/07/1661809/07/16618 Results 24 hrs Laboratory Tests Test 09/06/16 11:44 09/06/16 17:37 09/06/16 21:45 09/07/16 06:19 Bedside Glucose 137 107 146 White Blood Count 5.8 Red Blood Count 3.87 L Hemoglobin 9.9 L Hematocrit 33.6 L Mean Corpuscular Volume 86.8 Mean Corpuscular Hemoglobin 25.6 L Mean Corpuscular Hemoglobin Concent 29.5 L Red Cell Distribution Width 24.2 H Platelet Count 221 # Mean Platelet Volume 10.6 H Neutrophils % 70.4 Lymphocytes % 14.9 L Monocytes % 11.7 H Eosinophils % 2.2 Basophils % 0.5 Nucleated Red Blood Cells % 0.3 H Neutrophils # 4.1 Lymphocytes # 0.9 Monocytes # 0.7 Eosinophils # 0.1 Basophils # 0.0 Nucleated Red Blood Cells # 0.0 Prothrombin Time 17.9 H Prothrombin Time Ratio 1.4 INR International Normalized Ratio 1.47 Activated Partial Thromboplast Time 41.4 H Sodium Level 130 L Potassium Level 4.0 Chloride Level 95 L Carbon Dioxide Level 26 Anion Gap 13 Blood Urea Nitrogen 42 H Creatinine 1.42 H Glucose Level 101 Calcium Level 8.8 Digoxin Level 0.8 L Test 09/07/16 08:20 Bedside Glucose 105 Medications Medications Current Medications Acetaminophen (Tylenol Tab) 650 mg Q6H PRN PO PAIN AND OR ELEVATED TEMP; Start 08/27/16 at 23:00 Insulin Glargine (Lantus) 10 unit QAM SC Last administered on 09/07/16 09:57; Admin Dose 10 UNIT; Start 08/28/16 at 09:00 Ondansetron HCl (Zofran Inj) 4 mg Q6H PRN IV NAUSEA AND/OR VOMITING; Start at 23:00 Carvedilol (Coreg) 3.125 mg BID PO Last administered on 08/29/16 09:54; Admin Dose 3.125 MG; Start 08/28/16 at 09:00; Status Future Hold Isosorbide Dinitrate (Isordil) 10 mg TID PO Last administered on 08/29/16 09:54 ; Admin Dose 10 MG; Start 08/28/16 at 09:00; Status Future Hold Sucralfate (Carafate) 1 gm QID PO Last administered on 09/07/16 09:43; Admin Dose 1 GM; Start 08/28/16 at 09:00 Morphine Sulfate (morphine) 2 mg Q2H PRN IV PAIN Last administered on 09/01/16 10:22; Admin Dose 2 MG; Start 09/01/16 at 01:30 Digoxin (Digoxin) 0.125 mg Q2D@13 PO Last administered on 09/05/16 13:49; Admin Dose 0.125 MG; Start 09/03/16 at 13:00 Ascorbic Acid (Vitamin C) 500 mg DAILY PO Last administered on 09/07/16 09:43 ; Admin Dose 500 MG; Start 09/03/16 at 10:30 Aspirin (Aspirin) 81 mg DAILY PO Last administered on 09/07/16 09:42; Admin Dose 81 MG; Start 09/03/16 at 10:30 Docusate Sodium (Colace) 200 mg QHS PO Last administered on 09/06/16 21:47; Admin Dose 200 MG; Start 09/03/16 at 21:00 Zinc Sulfate (Zinc Sulfate) 220 mg DAILY PO Last administered on 09/07/16 09: 43; Admin Dose 220 MG; Start 09/03/16 at 10:30 Multivitamins Therapeutic (Theragran) 1 tab DAILY PO Last administered on 09:43; Admin Dose 1 TAB; Start 09/03/16 at 10:30 Miscellaneous Information 1 ea NOTE XX Last administered on 09/05/16 08:52; Admin Dose 1 EA; Start 09/03/16 at 11:00 Glucose (Glutose) 15 gm Q15M PRN PO DECREASED GLUCOSE; Start 09/03/16 at 11:00 Glucose (Glutose) 22.5 gm Q15M PRN PO DECREASED GLUCOSE; Start 09/03/16 at 11:00 Dextrose (D50w Syringe) 25 ml Q15M PRN IV DECREASED GLUCOSE; Start 09/03/16 at 11:00 Dextrose (D50w Syringe) 50 ml Q15M PRN IV DECREASED GLUCOSE; Start 09/03/16 at 11:00 Glucagon (Glucagen) 1 mg Q15M PRN IM DECREASED GLUCOSE; Start 09/03/16 at 11:00 Glucose (Glutose) 15 gm Q15M PRN BUCCAL DECREASED GLUCOSE; Start 09/03/16 at 11: 00 Mupirocin (Bactroban) 1 applic BID TOP Last administered on 09/07/16 09:46; Admin Dose 1 APPLIC; Start 09/03/16 at 21:00 Pantoprazole (Protonix Tab) 40 mg DAILY@06 PO Last administered on 09/07/16 06 :35; Admin Dose 40 MG; Start 09/05/16 at 06:00 Hydralazine HCl (Apresoline) 10 mg Q8 PO Last administered on 09/07/16 06:37; Admin Dose 10 MG; Start 09/04/16 at 22:00 Furosemide (Lasix) 20 mg DAILY IV Last administered on 09/07/16 09:43; Admin Dose 20 MG; Start 09/05/16 at 09:01 Carvedilol (Coreg) 1.5625 mg BID PO Last administered on 09/06/16 21:48; Admin Dose 1.5625 MG; Start 09/06/16 at 21:00 Heparin Sodium (Porcine) (Heparin (5000 Units/0.5 ml)) 5,000 unit BID SC Last administered on 09/07/16 09:56; Admin Dose 5,000 UNIT; Start 09/06/16 at 21:00 THERESA RIVERA Sep 07, 2016 10:28
--- NOTE | 2016-09-07 11:44 | CONS ---
Date/Time of Note Date/Time of Note DATE: 09/07/16 TIME: 11:39 Assessment/Plan Assessment/Plan Chief Complaint/Hosp Course IMp: 1.CHF-systolic acute on chronic 2.Hypotension-Levo just turned off 3.REnal failurwe s/p HD 4.Cardiomyopathy with low EF 5.AICD 6.H/O cad s/p cabg 7.PAF 8.Coagulopathy-overall improved 9. Resp failure-improved s/p extubation 10.[id number] is without cardiac contraindication to proceeding permacath placement at this time but high risk due to severely depressed EF/cad. Would correct coagulopathy prior to placement and optimize volume status as possible with aggresive HD volume removal Recc: -Tele -Continue abx's and f/'u cx data -HD for volume removal -Continue digoxin QOD -Continue to follow BP closely on low dose hydralazine afterload reduction and low dose coreg. If BP remains stable will uptitrate these medications -Apixaban held in anticipation of permacath placement and asa/low dose heparin SQ started Problems: Consultation Date/Type/Reason Admit Date/Time Aug 27, 2016 at 21:25 Initial Consult Date 08/28/2016 Type of Consultation: Cardiology Reason for Consultation CHF/cardiomyopathy Referring Provider: BOLA SOLO Exam/Review of Systems Vital Signs Vitals Vital Signs Date Time Temp Pulse Resp B/P Pulse Ox O2 Delivery O2 Flow Rate FiO2 09/07/16 11:00 60 16 09/07/16 08:12 96.2 138/63 100 09/07/16 08:00 Nasal Cannula 09/06/16 23:04 2.0 Intake and Output 09/06/16 09/06/16 09/07/16 15:00 23:00 07:00 Intake Total 700 ml 100 ml Output Total 200 ml 25 ml Balance 500 ml 75 ml Exam Review of Systems: CONSTITUTIONAL: No fevers, chills. PULMONARY: No sob CARDIOVASCULAR: No chest pain/palpitations GASTROINTESTINAL: No nausea/vomiting. GENITOURINARY: No hematuria/dysuria. MUSCULOSKELETAL: No myagias/arthalgias. PSYCHIATRIC: The patient denies depression. NEUROLOGIC: lethargic Constitutional: alert Psych: no complaints Head: normocephalic ENMT: mucosa pink and moist Neck: jvd (9 cm water), supple Cardiovascular: regular rate and rhythm Gastrointestinal: non-tender, soft Musculoskeletal: muscle weakness (generalized) Extremities: edema (Trace), other (skin breakdown of feet bilateral) Neurological: other (No focal deficits) Results Result Diagram: 09/07/1661809/07/16618 Results 24 hrs Laboratory Tests Test 09/06/16 11:44 09/06/16 17:37 09/06/16 21:45 09/07/16 06:19 Bedside Glucose 137 107 146 White Blood Count 5.8 Red Blood Count 3.87 L Hemoglobin 9.9 L Hematocrit 33.6 L Mean Corpuscular Volume 86.8 Mean Corpuscular Hemoglobin 25.6 L Mean Corpuscular Hemoglobin Concent 29.5 L Red Cell Distribution Width 24.2 H Platelet Count 221 # Mean Platelet Volume 10.6 H Neutrophils % 70.4 Lymphocytes % 14.9 L Monocytes % 11.7 H Eosinophils % 2.2 Basophils % 0.5 Nucleated Red Blood Cells % 0.3 H Neutrophils # 4.1 Lymphocytes # 0.9 Monocytes # 0.7 Eosinophils # 0.1 Basophils # 0.0 Nucleated Red Blood Cells # 0.0 Prothrombin Time 17.9 H Prothrombin Time Ratio 1.4 INR International Normalized Ratio 1.47 Activated Partial Thromboplast Time 41.4 H Sodium Level 130 L Potassium Level 4.0 Chloride Level 95 L Carbon Dioxide Level 26 Anion Gap 13 Blood Urea Nitrogen 42 H Creatinine 1.42 H Glucose Level 101 Calcium Level 8.8 Digoxin Level 0.8 L Test 09/07/16 08:20 Bedside Glucose 105 Medications Medications Current Medications Acetaminophen (Tylenol Tab) 650 mg Q6H PRN PO PAIN AND OR ELEVATED TEMP; Start 08/27/16 at 23:00 Insulin Glargine (Lantus) 10 unit QAM SC Last administered on 09/07/16 09:57; Admin Dose 10 UNIT; Start 08/28/16 at 09:00 Ondansetron HCl (Zofran Inj) 4 mg Q6H PRN IV NAUSEA AND/OR VOMITING; Start at 23:00 Carvedilol (Coreg) 3.125 mg BID PO Last administered on 08/29/16 09:54; Admin Dose 3.125 MG; Start 08/28/16 at 09:00; Status Future Hold Isosorbide Dinitrate (Isordil) 10 mg TID PO Last administered on 08/29/16 09:54 ; Admin Dose 10 MG; Start 08/28/16 at 09:00; Status Future Hold Sucralfate (Carafate) 1 gm QID PO Last administered on 09/07/16 09:43; Admin Dose 1 GM; Start 08/28/16 at 09:00 Morphine Sulfate (morphine) 2 mg Q2H PRN IV PAIN Last administered on 09/01/16 10:22; Admin Dose 2 MG; Start 09/01/16 at 01:30 Digoxin (Digoxin) 0.125 mg Q2D@13 PO Last administered on 09/05/16 13:49; Admin Dose 0.125 MG; Start 09/03/16 at 13:00 Ascorbic Acid (Vitamin C) 500 mg DAILY PO Last administered on 09/07/16 09:43 ; Admin Dose 500 MG; Start 09/03/16 at 10:30 Aspirin (Aspirin) 81 mg DAILY PO Last administered on 09/07/16 09:42; Admin Dose 81 MG; Start 09/03/16 at 10:30 Docusate Sodium (Colace) 200 mg QHS PO Last administered on 09/06/16 21:47; Admin Dose 200 MG; Start 09/03/16 at 21:00 Zinc Sulfate (Zinc Sulfate) 220 mg DAILY PO Last administered on 09/07/16 09: 43; Admin Dose 220 MG; Start 09/03/16 at 10:30 Multivitamins Therapeutic (Theragran) 1 tab DAILY PO Last administered on 09:43; Admin Dose 1 TAB; Start 09/03/16 at 10:30 Miscellaneous Information 1 ea NOTE XX Last administered on 09/05/16 08:52; Admin Dose 1 EA; Start 09/03/16 at 11:00 Glucose (Glutose) 15 gm Q15M PRN PO DECREASED GLUCOSE; Start 09/03/16 at 11:00 Glucose (Glutose) 22.5 gm Q15M PRN PO DECREASED GLUCOSE; Start 09/03/16 at 11:00 Dextrose (D50w Syringe) 25 ml Q15M PRN IV DECREASED GLUCOSE; Start 09/03/16 at 11:00 Dextrose (D50w Syringe) 50 ml Q15M PRN IV DECREASED GLUCOSE; Start 09/03/16 at 11:00 Glucagon (Glucagen) 1 mg Q15M PRN IM DECREASED GLUCOSE; Start 09/03/16 at 11:00 Glucose (Glutose) 15 gm Q15M PRN BUCCAL DECREASED GLUCOSE; Start 09/03/16 at 11: 00 Mupirocin (Bactroban) 1 applic BID TOP Last administered on 09/07/16 09:46; Admin Dose 1 APPLIC; Start 09/03/16 at 21:00 Pantoprazole (Protonix Tab) 40 mg DAILY@06 PO Last administered on 09/07/16 06 :35; Admin Dose 40 MG; Start 09/05/16 at 06:00 Hydralazine HCl (Apresoline) 10 mg Q8 PO Last administered on 09/07/16 06:37; Admin Dose 10 MG; Start 09/04/16 at 22:00 Furosemide (Lasix) 20 mg DAILY IV Last administered on 09/07/16 09:43; Admin Dose 20 MG; Start 09/05/16 at 09:01 Carvedilol (Coreg) 1.5625 mg BID PO Last administered on 09/06/16 21:48; Admin Dose 1.5625 MG; Start 09/06/16 at 21:00 Heparin Sodium (Porcine) (Heparin (5000 Units/0.5 ml)) 5,000 unit BID SC Last administered on 09/07/16 09:56; Admin Dose 5,000 UNIT; Start 09/06/16 at 21:00 POLI SAN Sep 07, 2016 11:44
--- NOTE | 2016-09-07 13:03 | CONS ---
Date/Time of Note Date/Time of Note DATE: 09/07/16 TIME: 13:01 Assessment/Plan Assessment/Plan Additional Assessment/Plan Assessment recommendations; next 1. Patient admitted for congestive heart failure exacerbation was initially intubated but extubated the medical floor with the patient again had respiratory failure now again successfully extubated and transferred to telemetry unit. 2. End-stage renal disease on hemodialysis. 3. Underlying cardiomyopathy. 4. History of coronary artery disease status post coronary artery bypass surgery in the past. Continue current treatment. Consultation Date/Type/Reason Admit Date/Time Aug 27, 2016 at 21:25 Type of Consultation: Pulmonary Referring Provider: BOLA SOLO 24 HR Interval Summary Free Text/Dictation Patient condition stable. Has been transferred out of ICU to telemetry unit. Any shortness of breath, chest pain, patient is eating well. General exam; elderly male, currently in no distress awake and alert. Exam/Review of Systems Vital Signs Vitals Vital Signs Date Time Temp Pulse Resp B/P Pulse Ox O2 Delivery O2 Flow Rate FiO2 09/07/16 12:17 96.6 94 18 108/54 99 09/07/16 08:00 Nasal Cannula 09/06/16 23:04 2.0 Intake and Output 09/06/16 09/06/16 09/07/16 15:00 23:00 07:00 Intake Total 700 ml 100 ml Output Total 200 ml 25 ml Balance 500 ml 75 ml Exam HEENT exam is; supple neck, positive JVD. No lymphadenopathy. Midline trachea. Patient is edentulous. Pupils are small bilaterally. Chest exam is; clear to auscultation. There is a well-healed sternal scar. S1- S2 audible, no murmurs. Regular rhythm. Abdomen examination; soft, nondistended. No organomegaly. Nontender. Bowel sounds. Extremity exam is; no peripheral edema. 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 Results Result Diagram: 09/07/1661809/07/16618 Results 24 hrs Laboratory Tests Test 09/06/16 17:37 09/06/16 21:45 09/07/16 06:19 09/07/16 08:20 Bedside Glucose 107 146 105 White Blood Count 5.8 Red Blood Count 3.87 L Hemoglobin 9.9 L Hematocrit 33.6 L Mean Corpuscular Volume 86.8 Mean Corpuscular Hemoglobin 25.6 L Mean Corpuscular Hemoglobin Concent 29.5 L Red Cell Distribution Width 24.2 H Platelet Count 221 # Mean Platelet Volume 10.6 H Neutrophils % 70.4 Lymphocytes % 14.9 L Monocytes % 11.7 H Eosinophils % 2.2 Basophils % 0.5 Nucleated Red Blood Cells % 0.3 H Neutrophils # 4.1 Lymphocytes # 0.9 Monocytes # 0.7 Eosinophils # 0.1 Basophils # 0.0 Nucleated Red Blood Cells # 0.0 Prothrombin Time 17.9 H Prothrombin Time Ratio 1.4 INR International Normalized Ratio 1.47 Activated Partial Thromboplast Time 41.4 H Sodium Level 130 L Potassium Level 4.0 Chloride Level 95 L Carbon Dioxide Level 26 Anion Gap 13 Blood Urea Nitrogen 42 H Creatinine 1.42 H Glucose Level 101 Calcium Level 8.8 Digoxin Level 0.8 L Test 09/07/16 12:32 Bedside Glucose 149 Medications Medications Current Medications Acetaminophen (Tylenol Tab) 650 mg Q6H PRN PO PAIN AND OR ELEVATED TEMP; Start 08/27/16 at 23:00 Insulin Glargine (Lantus) 10 unit QAM SC Last administered on 09/07/16 09:57; Admin Dose 10 UNIT; Start 08/28/16 at 09:00 Ondansetron HCl (Zofran Inj) 4 mg Q6H PRN IV NAUSEA AND/OR VOMITING; Start at 23:00 Carvedilol (Coreg) 3.125 mg BID PO Last administered on 08/29/16 09:54; Admin Dose 3.125 MG; Start 08/28/16 at 09:00; Status Future Hold Isosorbide Dinitrate (Isordil) 10 mg TID PO Last administered on 08/29/16 09:54 ; Admin Dose 10 MG; Start 08/28/16 at 09:00; Status Future Hold Sucralfate (Carafate) 1 gm QID PO Last administered on 09/07/16 09:43; Admin Dose 1 GM; Start 08/28/16 at 09:00 Morphine Sulfate (morphine) 2 mg Q2H PRN IV PAIN Last administered on 09/01/16 10:22; Admin Dose 2 MG; Start 09/01/16 at 01:30 Digoxin (Digoxin) 0.125 mg Q2D@13 PO Last administered on 09/05/16 13:49; Admin Dose 0.125 MG; Start 09/03/16 at 13:00 Ascorbic Acid (Vitamin C) 500 mg DAILY PO Last administered on 09/07/16 09:43 ; Admin Dose 500 MG; Start 09/03/16 at 10:30 Aspirin (Aspirin) 81 mg DAILY PO Last administered on 09/07/16 09:42; Admin Dose 81 MG; Start 09/03/16 at 10:30 Docusate Sodium (Colace) 200 mg QHS PO Last administered on 09/06/16 21:47; Admin Dose 200 MG; Start 09/03/16 at 21:00 Zinc Sulfate (Zinc Sulfate) 220 mg DAILY PO Last administered on 09/07/16 09: 43; Admin Dose 220 MG; Start 09/03/16 at 10:30 Multivitamins Therapeutic (Theragran) 1 tab DAILY PO Last administered on 09:43; Admin Dose 1 TAB; Start 09/03/16 at 10:30 Miscellaneous Information 1 ea NOTE XX Last administered on 09/05/16 08:52; Admin Dose 1 EA; Start 09/03/16 at 11:00 Glucose (Glutose) 15 gm Q15M PRN PO DECREASED GLUCOSE; Start 09/03/16 at 11:00 Glucose (Glutose) 22.5 gm Q15M PRN PO DECREASED GLUCOSE; Start 09/03/16 at 11:00 Dextrose (D50w Syringe) 25 ml Q15M PRN IV DECREASED GLUCOSE; Start 09/03/16 at 11:00 Dextrose (D50w Syringe) 50 ml Q15M PRN IV DECREASED GLUCOSE; Start 09/03/16 at 11:00 Glucagon (Glucagen) 1 mg Q15M PRN IM DECREASED GLUCOSE; Start 09/03/16 at 11:00 Glucose (Glutose) 15 gm Q15M PRN BUCCAL DECREASED GLUCOSE; Start 09/03/16 at 11: 00 Mupirocin (Bactroban) 1 applic BID TOP Last administered on 09/07/16 09:46; Admin Dose 1 APPLIC; Start 09/03/16 at 21:00 Pantoprazole (Protonix Tab) 40 mg DAILY@06 PO Last administered on 09/07/16 06 :35; Admin Dose 40 MG; Start 09/05/16 at 06:00 Hydralazine HCl (Apresoline) 10 mg Q8 PO Last administered on 09/07/16 06:37; Admin Dose 10 MG; Start 09/04/16 at 22:00 Furosemide (Lasix) 20 mg DAILY IV Last administered on 09/07/16 09:43; Admin Dose 20 MG; Start 09/05/16 at 09:01 Carvedilol (Coreg) 1.5625 mg BID PO Last administered on 09/06/16 21:48; Admin Dose 1.5625 MG; Start 09/06/16 at 21:00 Heparin Sodium (Porcine) (Heparin (5000 Units/0.5 ml)) 5,000 unit BID SC Last administered on 09/07/16 09:56; Admin Dose 5,000 UNIT; Start 09/06/16 at 21:00 ADAMARIS RAMIREZ Sep 07, 2016 13:03
[2016-09-07] MEDS: DIGOXIN 0.125 MG TAB PO SCH (14:30)
[2016-09-07] MEDS ORDERED: BUPIVACAINE 0.25%/EPI (SDV) 30 ML INJ ONE (17:48)
[2016-09-07] MEDS ORDERED: HEPARIN 1000 UNITS/ML 10 ML INJ ONE (17:48)
[2016-09-07] MEDS ORDERED: LIDOCAINE 1% (STERILE-PAK) 30 ML INJ ONE (17:48)
--- NOTE | 2016-09-07 18:06 | PN ---
Date/Time of Note Date/Time of Note DATE: 09/07/16 TIME: 18:01 Assessment/Plan Lines/Catheters IV Catheter Type (from [facility]): Saline Lock Gan in Place (from [facility]): No Assessment/Plan Chief Complaint/Hosp Course 1. Acute renal failure in need of prolonged dialysis. He currently has a right IJ Fidel, which needs to be converted to a PermCath. After medical optimization and clearance, we will proceed with conversion into PermCath. -OR time not available still despite being scheduled for 5pm today and family has not signed consent yet > will re-schedule for another day 2. Acute on chronic congestive heart failure with cardiomyopathy and cardiomegaly and ejection fraction of 25%. Continue cardiac optimization and judicious fluid management. 3. Anemia without evidence of acute blood loss. Continue monitoring. 4. Hypoalbuminemia. Will benefit from nutritional optimization. 5. Recent urinary tract infection and pneumonia with sepsis and shock, status post antibiotics and judicious fluid management. Improving. 6. Diabetes mellitus type 2. Continue nutrition and medication optimization. 7. Paroxysmal atrial fibrillation. Continue medical and cardiac optimization. Patient is anticoagulated. 8. Recent acute respiratory failure secondary to multiple issues. Successfully extubated on 09/02/2016. Thank you Problems: Subjective 24 Hr Interval Summary OR scheduled for 5pm today but has been delayed and time not available. Family has not signed consent yet. No f/c. No cough. No sz. No rash. No vomiting or nausea. No abdominal pain. No bloating. Exam/Review of Systems Vital Signs Vitals Vital Signs Date Time Temp Pulse Resp B/P Pulse Ox O2 Delivery O2 Flow Rate FiO2 09/07/16 16:34 97.2 62 18 136/60 100 09/07/16 08:00 Nasal Cannula 09/06/16 23:04 2.0 Intake and Output 09/06/16 09/06/16 09/07/16 15:00 23:00 07:00 Intake Total 700 ml 100 ml Output Total 200 ml 25 ml Balance 500 ml 75 ml Exam Free Text/Dictation GENERAL: No acute distress, responsive. HEENT: Pupils equal, reactive. No scleral icterus. Mucous membranes are moist. NECK: Minimal JVD. Right IJ Fidel. Supple. PULMONARY: Normal respiratory effort. No wheezing. CARDIAC: S1, S2 present. ABDOMEN: Soft, nontender. EXTREMITIES: No edema. VASCULAR: Cap refill less than 2 seconds. NEUROLOGIC: Alert, oriented, moves all 4 extremities grossly. SKIN: No rashes, no jaundice; however some decubitus stage II ulcerations. LYMPHATIC: No inguinal or cervical lymphadenopathy. Results Result Diagram: 09/07/16 0619 09/07/16 0619 GUILLERMO PRESSLEY MD Sep 07, 2016 18:06
--- NOTE | 2016-09-07 22:28 | CONS ---
Date/Time of Note Date/Time of Note DATE: 09/07/16 TIME: 22:27 Assessment/Plan Assessment/Plan Chief Complaint/Hosp Course SYSTOLIC HEART FAILURE better JAZLYN ON CKD LOW EF ASHD DM HX CAD AICD PLACEMENT s/p anasarca PLAN hd mwf will need permacath before dc home hd today Problems: Consultation Date/Type/Reason Admit Date/Time Aug 27, 2016 at 21:25 Initial Consult Date no distress Type of Consultation: renal Referring Provider: BOLA SOLO 24 HR Interval Summary Constitutional: no complaints Exam/Review of Systems Vital Signs Vitals Vital Signs Date Time Temp Pulse Resp B/P Pulse Ox O2 Delivery O2 Flow Rate FiO2 09/07/16 20:04 65 09/07/16 20:00 98.4 20 113/56 96 09/07/16 08:00 Nasal Cannula 09/06/16 23:04 2.0 Intake and Output 09/06/16 09/06/16 09/07/16 15:00 23:00 07:00 Intake Total 700 ml 100 ml Output Total 200 ml 25 ml Balance 500 ml 75 ml Exam Respiratory: clear to auscultation Cardiovascular: regular rate and rhythm Gastrointestinal: bowel sounds (+), soft Extremities: edema (+) Results Result Diagram: 09/07/1619 09/07/16 0619 Results 24 hrs Laboratory Tests Test 09/07/16 06:19 09/07/16 08:20 09/07/16 12:32 09/07/16 17:45 White Blood Count 5.8 Red Blood Count 3.87 L Hemoglobin 9.9 L Hematocrit 33.6 L Mean Corpuscular Volume 86.8 Mean Corpuscular Hemoglobin 25.6 L Mean Corpuscular Hemoglobin Concent 29.5 L Red Cell Distribution Width 24.2 H Platelet Count 221 # Mean Platelet Volume 10.6 H Neutrophils % 70.4 Lymphocytes % 14.9 L Monocytes % 11.7 H Eosinophils % 2.2 Basophils % 0.5 Nucleated Red Blood Cells % 0.3 H Neutrophils # 4.1 Lymphocytes # 0.9 Monocytes # 0.7 Eosinophils # 0.1 Basophils # 0.0 Nucleated Red Blood Cells # 0.0 Prothrombin Time 17.9 H Prothrombin Time Ratio 1.4 INR International Normalized Ratio 1.47 Activated Partial Thromboplast Time 41.4 H Sodium Level 130 L Potassium Level 4.0 Chloride Level 95 L Carbon Dioxide Level 26 Anion Gap 13 Blood Urea Nitrogen 42 H Creatinine 1.42 H Glucose Level 101 Calcium Level 8.8 Digoxin Level 0.8 L Bedside Glucose 105 149 76 Test 09/07/16 22:04 Bedside Glucose 77 Medications Medications Current Medications Acetaminophen (Tylenol Tab) 650 mg Q6H PRN PO PAIN AND OR ELEVATED TEMP; Start 08/27/16 at 23:00 Insulin Glargine (Lantus) 10 unit QAM SC Last administered on 09/07/16 09:57; Admin Dose 10 UNIT; Start 08/28/16 at 09:00 Ondansetron HCl (Zofran Inj) 4 mg Q6H PRN IV NAUSEA AND/OR VOMITING; Start at 23:00 Carvedilol (Coreg) 3.125 mg BID PO Last administered on 08/29/16 09:54; Admin Dose 3.125 MG; Start 08/28/16 at 09:00; Status Future Hold Isosorbide Dinitrate (Isordil) 10 mg TID PO Last administered on 08/29/16 09:54 ; Admin Dose 10 MG; Start 08/28/16 at 09:00; Status Future Hold Sucralfate (Carafate) 1 gm QID PO Last administered on 09/07/16 17:59; Admin Dose 1 GM; Start 08/28/16 at 09:00 Morphine Sulfate (morphine) 2 mg Q2H PRN IV PAIN Last administered on 09/01/16 10:22; Admin Dose 2 MG; Start 09/01/16 at 01:30 Digoxin (Digoxin) 0.125 mg Q2D@13 PO Last administered on 09/07/16 14:30; Admin Dose 0.125 MG; Start 09/03/16 at 13:00 Ascorbic Acid (Vitamin C) 500 mg DAILY PO Last administered on 09/07/16 09:43 ; Admin Dose 500 MG; Start 09/03/16 at 10:30 Aspirin (Aspirin) 81 mg DAILY PO Last administered on 09/07/16 09:42; Admin Dose 81 MG; Start 09/03/16 at 10:30 Docusate Sodium (Colace) 200 mg QHS PO Last administered on 09/06/16 21:47; Admin Dose 200 MG; Start 09/03/16 at 21:00 Zinc Sulfate (Zinc Sulfate) 220 mg DAILY PO Last administered on 09/07/16 09: 43; Admin Dose 220 MG; Start 09/03/16 at 10:30 Multivitamins Therapeutic (Theragran) 1 tab DAILY PO Last administered on 09:43; Admin Dose 1 TAB; Start 09/03/16 at 10:30 Miscellaneous Information 1 ea NOTE XX Last administered on 09/05/16 08:52; Admin Dose 1 EA; Start 09/03/16 at 11:00 Glucose (Glutose) 15 gm Q15M PRN PO DECREASED GLUCOSE; Start 09/03/16 at 11:00 Glucose (Glutose) 22.5 gm Q15M PRN PO DECREASED GLUCOSE; Start 09/03/16 at 11:00 Dextrose (D50w Syringe) 25 ml Q15M PRN IV DECREASED GLUCOSE; Start 09/03/16 at 11:00 Dextrose (D50w Syringe) 50 ml Q15M PRN IV DECREASED GLUCOSE; Start 09/03/16 at 11:00 Glucagon (Glucagen) 1 mg Q15M PRN IM DECREASED GLUCOSE; Start 09/03/16 at 11:00 Glucose (Glutose) 15 gm Q15M PRN BUCCAL DECREASED GLUCOSE; Start 09/03/16 at 11: 00 Mupirocin (Bactroban) 1 applic BID TOP Last administered on 09/07/16 09:46; Admin Dose 1 APPLIC; Start 09/03/16 at 21:00 Pantoprazole (Protonix Tab) 40 mg DAILY@06 PO Last administered on 09/07/16 06 :35; Admin Dose 40 MG; Start 09/05/16 at 06:00 Hydralazine HCl (Apresoline) 10 mg Q8 PO Last administered on 09/07/16 14:40; Admin Dose 10 MG; Start 09/04/16 at 22:00 Furosemide (Lasix) 20 mg DAILY IV Last administered on 09/07/16 09:43; Admin Dose 20 MG; Start 09/05/16 at 09:01 Carvedilol (Coreg) 1.5625 mg BID PO Last administered on 09/06/16 21:48; Admin Dose 1.5625 MG; Start 09/06/16 at 21:00 Heparin Sodium (Porcine) (Heparin (5000 Units/0.5 ml)) 5,000 unit BID SC Last administered on 09/07/16t 09:56; Admin Dose 5,000 UNIT; Start 09/06/16 at 21:00 YANIRA HART MD Sep 07, 2016 22:28
[2016-09-07] MEDS: DOCUSATE SODIUM 100 MG CAP PO SCH (22:30)
[2016-09-08] VITALS (12 sets, daily range): BP systolic 110–141; BP diastolic 52–63; PULSE 60–62; RESP 18–20
[2016-09-08] MEDS: PANTOPRAZOLE (EC) 40 MG TAB PO SCH (05:59)
[2016-09-08] MEDS: INSULIN ASPART [NOVOLOG] 3 ML PEN SC SCH ×4 (07:25→21:00)
[2016-09-08 07:52] LABS: ADD SCAN DIFF NO
[2016-09-08 07:56] LABS: ABNORMAL IP MESSAGE 1; BASOPHILS % 0.5 % (0.0-2.0); EOSINOPHILS # 0.1 10^3/ul (0.0-0.5); EOSINOPHILS % 1.1 % (0.0-7.0); HEMATOCRIT 33.6 % (42.0-52.0); HEMOGLOBIN 9.8 g/dl (14.0-18.0); LYMPHOCYTES % 15.2 % (15.0-51.0); MEAN CORPUSCULAR HEMOGLOBIN 25.7 pg (29.0-33.0); MEAN CORPUSCULAR HGB CONC 29.2 g/dl (32.0-37.0); MEAN CORPUSCULAR VOLUME 88.2 fl (82.0-101.0); MEAN PLATELET VOLUME 10.6 fl (7.4-10.4); MONOCYTE # 0.7 10^3/ul (0.3-0.9); MONOCYTES % 10.9 % (0.0-11.0); NEUTROPHIL # 4.5 10^3/ul (1.6-7.5); NEUTROPHILS % 71.8 % (39.0-77.0); NUCLEATED RED BLOOD CELLS% 0.5 /100WBC (0.0-0.0); PLATELET COUNT 249 10^3/UL (140-415); RED BLOOD COUNT 3.81 10^6/ul (4.70-6.10); RED CELL DISTRIBUTION WIDTH 24.7 % (11.5-14.5); WHITE BLOOD COUNT 6.3 10^3/ul (4.8-10.8)
[2016-09-08 08:06] LABS: CREATININE 1.56 mg/dl (0.61-1.24); POTASSIUM 3.5 mmol/L (3.5-5.1)
[2016-09-08 08:12] LABS: INR 1.68; PROTIME 19.9 Sec (12.2-14.2); PT RATIO 1.6
[2016-09-08 08:13] LABS: PARTIAL THROMBOPLASTIN TIME 43.8 Sec (25.0-35.0)
[2016-09-08] MEDS: FUROSEMIDE 20 MG INJ IV SCH (08:31)
[2016-09-08] MEDS: ZINC SULFATE 220 MG CAP PO SCH (08:31)
[2016-09-08] MEDS: SUCRALFATE 1 GM TAB PO SCH ×4 (08:31→21:22)
[2016-09-08] MEDS: MULTIVITAMINS THERAPEUTIC TAB PO SCH (08:32)
[2016-09-08] MEDS: ASCORBIC ACID 500 MG TAB PO SCH (08:32)
[2016-09-08] MEDS: MUPIROCIN 2% 22 GM OINT TOP SCH ×2 (08:32→21:23)
[2016-09-08] MEDS: ASPIRIN 81 MG TAB PO SCH (08:32)
[2016-09-08] MEDS: HEPARIN 5,000 UNIT/0.5 ML VIAL SC SCH (08:47)
[2016-09-08] MEDS: INSULIN GLARGINE [LANtus] 3 ML PEN SC SCH (08:48)
[2016-09-08] MEDS: DEXTROSE 50% 50 ML SYRINGE IV PRN (09:03)
[2016-09-08] MEDS ORDERED: SOD CHLORIDE 0.9% 250 ML IV* ONE (10:00)
--- NOTE | 2016-09-08 10:07 | PN ---
Date/Time of Note Date/Time of Note DATE: 09/08/16 TIME: 09:59 Assessment/Plan VTE Prophylaxis VTE Prophylaxis Intervention: heparin Lines/Catheters IV [facility] Urinary Cath still in place: No Assessment/Plan Chief Complaint/Hosp Course Assessment/Plan: 81-year-old male with the following medical problems: 1. Endstage CHF - improved - f/u CV rec's, continue PO Hydralazine and very low dose BB, monitor 2. s/p Severe sepsis with lactic acidosis 2/2 UTI - improved now - s/p abx, monitor for now 3. Chronic kidney disease, requiring dialysis more for volume removal 2/2 # 1. UO appears minimal, although Cr levels only slightly elevated? - Patient needs continued HD and diuretic therapy for continued volume removal - Has whitney now and awaiting possible Permacath placement in 24 hrs, cardiac clearance has been obtained (see CV note) - will give one unit FFP later this evening for elevated INR today as well 4. Acute respiratory failure 2/2 CHF successfully extubated 09/02/16 - monitor 5. Diabetes mellitus type 2 - Titrate insulin therapy as indicated 6. Paroxysmal atrial fibrillation - rate controlled - monitor, f/u CV rec's 8. Coronary artery disease with Severe isch CM s/p CABG and AICD - monitor, f/u CV rec's 9 Chronic hypochromic anemia secondary to end-stage renal disease. - monitor H/H 10. Chronic liver cirrhosis with coagulopathy with Mild hyperbilirubinemia with transaminitis 11 Methicillin-resistant Staphylococcus aureus, nares. s/p 7 days of bactroban 12. Severe debility PROPHYLAXIS: heparin/ PPI as well Problems: Subjective 24 Hr Interval Summary Free Text/Dictation Had HD yesterday, had some low FS last night, improved this AM. Exam/Review of Systems Vital Signs Vitals Vital Signs Date Time Temp Pulse Resp B/P Pulse Ox O2 Delivery O2 Flow Rate FiO2 09/08/16 08:29 60 09/08/16 07:33 97.3 18 141/63 100 09/07/16 23:07 Nasal Cannula 2.0 Intake and Output 09/07/16 09/07/16 09/08/16 15:00 23:00 07:00 Intake Total 400 ml 750 ml 50 ml Output Total 2200 ml Balance -1800 ml 750 ml 50 ml Exam Constitutional: alert, oriented, cachectic Head: atraumatic, normocephalic Eyes: PERRL ENMT: mucosa pink and moist Neck: supple Respiratory: crackles/rales, diminished breath sounds Cardiovascular: irregular rhythm, murmurs/extra sounds Gastrointestinal: bowel sounds, non-tender, soft Extremities: No edema Neurological: lethargic, No focal weakness Results Result Diagram: 09/08/16 0715 09/08/16 0715 Results 24 hrs Laboratory Tests Test 09/07/16 12:32 09/07/16 17:45 09/07/16 22:04 09/08/16 07:15 Bedside Glucose 149 76 77 White Blood Count 6.3 Red Blood Count 3.81 L Hemoglobin 9.8 L Hematocrit 33.6 L Mean Corpuscular Volume 88.2 Mean Corpuscular Hemoglobin 25.7 L Mean Corpuscular Hemoglobin Concent 29.2 L Red Cell Distribution Width 24.7 H Platelet Count 249 Mean Platelet Volume 10.6 H Neutrophils % 71.8 Lymphocytes % 15.2 Monocytes % 10.9 Eosinophils % 1.1 Basophils % 0.5 Nucleated Red Blood Cells % 0.5 H Neutrophils # 4.5 Lymphocytes # 1.0 Monocytes # 0.7 Eosinophils # 0.1 Basophils # 0.0 Nucleated Red Blood Cells # 0.0 Prothrombin Time 19.9 H Prothrombin Time Ratio 1.6 INR International Normalized Ratio 1.68 Activated Partial Thromboplast Time 43.8 H Sodium Level 132 L Potassium Level 3.5 Chloride Level 95 L Carbon Dioxide Level 27 Anion Gap 14 Blood Urea Nitrogen 39 H Creatinine 1.56 H Glucose Level 43 #*L Calcium Level 9.0 Test 09/08/16 08:06 09/08/16 08:24 09/08/16 08:39 09/08/16 08:58 Bedside Glucose 53 L 57 L 64 L 63 L Test 09/08/16 09:21 Bedside Glucose 148 Medications Medications Current Medications Acetaminophen (Tylenol Tab) 650 mg Q6H PRN PO PAIN AND OR ELEVATED TEMP; Start 08/27/16 at 23:00 Insulin Glargine (Lantus) 10 unit QAM SC Last administered on 09/08/16t 08:48; Admin Dose 10 UNIT; Start 08/28/16 at 09:00 Ondansetron HCl (Zofran Inj) 4 mg Q6H PRN IV NAUSEA AND/OR VOMITING; Start at 23:00 Carvedilol (Coreg) 3.125 mg BID PO Last administered on 08/29/16 09:54; Admin Dose 3.125 MG; Start 08/28/16 at 09:00; Status Future Hold Isosorbide Dinitrate (Isordil) 10 mg TID PO Last administered on 08/29/16 09:54 ; Admin Dose 10 MG; Start 08/28/16 at 09:00; Status Future Hold Sucralfate (Carafate) 1 gm QID PO Last administered on 09/08/16 08:31; Admin Dose 1 GM; Start 08/28/16 at 09:00 Morphine Sulfate (morphine) 2 mg Q2H PRN IV PAIN Last administered on 09/01/16 10:22; Admin Dose 2 MG; Start 09/01/16 at 01:30 Digoxin (Digoxin) 0.125 mg Q2D@13 PO Last administered on 09/07/16 14:30; Admin Dose 0.125 MG; Start 09/03/16 at 13:00 Ascorbic Acid (Vitamin C) 500 mg DAILY PO Last administered on 09/08/16 08:32 ; Admin Dose 500 MG; Start 09/03/16 at 10:30 Aspirin (Aspirin) 81 mg DAILY PO Last administered on 09/08/16 08:32; Admin Dose 81 MG; Start 09/03/16 at 10:30 Docusate Sodium (Colace) 200 mg QHS PO Last administered on 09/07/16 22:30; Admin Dose 200 MG; Start 09/03/16 at 21:00 Zinc Sulfate (Zinc Sulfate) 220 mg DAILY PO Last administered on 09/08/16 08: 31; Admin Dose 220 MG; Start 09/03/16 at 10:30 Multivitamins Therapeutic (Theragran) 1 tab DAILY PO Last administered on 08:32; Admin Dose 1 TAB; Start 09/03/16 at 10:30 Miscellaneous Information 1 ea NOTE XX Last administered on 09/05/16 08:52; Admin Dose 1 EA; Start 09/03/16 at 11:00 Glucose (Glutose) 15 gm Q15M PRN PO DECREASED GLUCOSE; Start 09/03/16 at 11:00 Glucose (Glutose) 22.5 gm Q15M PRN PO DECREASED GLUCOSE; Start 09/03/16 at 11:00 Dextrose (D50w Syringe) 25 ml Q15M PRN IV DECREASED GLUCOSE Last administered on 09/08/16 09:03; Admin Dose 25 ML; Start 09/03/16 at 11:00 Dextrose (D50w Syringe) 50 ml Q15M PRN IV DECREASED GLUCOSE; Start 09/03/16 at 11:00 Glucagon (Glucagen) 1 mg Q15M PRN IM DECREASED GLUCOSE; Start 09/03/16 at 11:00 Glucose (Glutose) 15 gm Q15M PRN BUCCAL DECREASED GLUCOSE; Start 09/03/16 at 11: 00 Mupirocin (Bactroban) 1 applic BID TOP Last administered on 09/08/16 08:32; Admin Dose 1 APPLIC; Start 09/03/16 at 21:00 Pantoprazole (Protonix Tab) 40 mg DAILY@06 PO Last administered on 09/08/16 05 :59; Admin Dose 40 MG; Start 09/05/16 at 06:00 Hydralazine HCl (Apresoline) 10 mg Q8 PO Last administered on 09/08/16 05:59; Admin Dose 10 MG; Start 09/04/16 at 22:00 Furosemide (Lasix) 20 mg DAILY IV Last administered on 09/08/16 08:31; Admin Dose 20 MG; Start 09/05/16 at 09:01 Carvedilol (Coreg) 1.5625 mg BID PO Last administered on 09/08/16 08:32; Admin Dose 1.5625 MG; Start 09/06/16 at 21:00 Heparin Sodium (Porcine) (Heparin (5000 Units/0.5 ml)) 5,000 unit BID SC Last administered on 09/08/16 08:47; Admin Dose 5,000 UNIT; Start 09/06/16 at 21:00 THERESA RIVERA Sep 08, 2016 10:07
--- NOTE | 2016-09-08 15:58 | RADRPT ---
PROCEDURE: XR Chest. CLINICAL INDICATION: Shortness of breath. TECHNIQUE: Single frontal view. COMPARISON: 09/04/2016. FINDINGS: There is a temporary right internal jugular vein dialysis catheter with the tip in the cavoatrial ju nction region. The left-sided single lead permanent pacemaker/internal cardiac defibrillator remain s in satisfactory position. There are sternal wires. The heart is enlarged. There is calcification in the aorta consistent with atherosclerosis. There is mild pulmonary edema, unchanged. There are small bilateral pleural effusions. There is no pneumothorax. IMPRESSION: 1. No change from 09/04/2016. RPTAT: QQ .Eugenio Ruano MD, MD Date Time Electronically viewed and signed by .Eugenio Ruano MD, MD on 09/08/2016 15:57 .R/
--- NOTE | 2016-09-08 16:35 | CONS ---
Date/Time of Note Date/Time of Note DATE: 09/08/16 TIME: 16:33 Assessment/Plan Assessment/Plan Additional Assessment/Plan 1.CHF-systolic acute on chronic - better now, remove fluid with HD 2.Hypotension-Levo just turned off - better now 3.REnal failurwe s/p HD 4.Cardiomyopathy with low EF 5.AICD - good function, con't to follow (pacer/paced now at 60) 6.H/O cad s/p cabg 7.PAF 8.Coagulopathy-overall improved 9. Resp failure-improved s/p extubation 10.Ual-oj-kiruobd is without cardiac contraindication to proceeding permacath placement at this time but high risk due to severely depressed EF/cad. Would correct coagulopathy prior to placement and optimize volume status as possible with aggresive HD volume removal Consultation Date/Type/Reason Admit Date/Time Aug 27, 2016 at 21:25 Type of Consultation: renal Referring Provider: BOLA SOLO 24 HR Interval Summary Free Text/Dictation No acute events. BP in good range - rate controlled with pacer. ROS: No fever, no chills, no nausea, no vomiting, no diarrhea/constipation No recent weight changes No chest pain, no PND, no orthopnea No dizziness, blurred vision No thirst, no heat or cold intolerance (per nurse) Exam/Review of Systems Vital Signs Vitals Vital Signs Date Time Temp Pulse Resp B/P Pulse Ox O2 Delivery O2 Flow Rate FiO2 09/08/16 16:19 60 09/08/16 16:08 98.6 19 115/56 100 09/08/16 08:20 Nasal Cannula 2.0 Intake and Output 09/07/16 09/07/16 09/08/16 15:00 23:00 07:00 Intake Total 400 ml 750 ml 50 ml Output Total 2200 ml Balance -1800 ml 750 ml 50 ml Exam General: WN/WD/NAD, AOx 0 HEENT: Unicetric/atraumatic/EOMI (does not follow commands) NECK: JVD elevated, no thyromegaly Lymph: no lymphadenopathy HEART: regular with no S3, II/ systolic murmur at apex LUNGS: Coarse sounds ABD: soft, NT, ND, +BS : Intact Neuro: non focal SKIN: chronic changes EXT: trace edema Results Result Diagram: 09/08/16 0715 09/08/16 0715 Results 24 hrs Laboratory Tests Test 09/07/16 17:45 09/07/16 22:04 09/08/16 07:15 09/08/16 08:06 Bedside Glucose 76 77 53 L White Blood Count 6.3 Red Blood Count 3.81 L Hemoglobin 9.8 L Hematocrit 33.6 L Mean Corpuscular Volume 88.2 Mean Corpuscular Hemoglobin 25.7 L Mean Corpuscular Hemoglobin Concent 29.2 L Red Cell Distribution Width 24.7 H Platelet Count 249 Mean Platelet Volume 10.6 H Neutrophils % 71.8 Lymphocytes % 15.2 Monocytes % 10.9 Eosinophils % 1.1 Basophils % 0.5 Nucleated Red Blood Cells % 0.5 H Neutrophils # 4.5 Lymphocytes # 1.0 Monocytes # 0.7 Eosinophils # 0.1 Basophils # 0.0 Nucleated Red Blood Cells # 0.0 Prothrombin Time 19.9 H Prothrombin Time Ratio 1.6 INR International Normalized Ratio 1.68 Activated Partial Thromboplast Time 43.8 H Sodium Level 132 L Potassium Level 3.5 Chloride Level 95 L Carbon Dioxide Level 27 Anion Gap 14 Blood Urea Nitrogen 39 H Creatinine 1.56 H Glucose Level 43 #*L Calcium Level 9.0 Test 09/08/16 08:24 09/08/16 08:39 09/08/16 08:58 09/08/16 09:21 Bedside Glucose 57 L 64 L 63 L 148 Test 09/08/16 12:22 Bedside Glucose 133 Medications Medications Current Medications Acetaminophen (Tylenol Tab) 650 mg Q6H PRN PO PAIN AND OR ELEVATED TEMP; Start 08/27/16 at 23:00 Insulin Glargine (Lantus) 10 unit QAM SC Last administered on 09/08/16 08:48; Admin Dose 10 UNIT; Start 08/28/16 at 09:00 Ondansetron HCl (Zofran Inj) 4 mg Q6H PRN IV NAUSEA AND/OR VOMITING; Start at 23:00 Isosorbide Dinitrate (Isordil) 10 mg TID PO Last administered on 08/29/16 09:54 ; Admin Dose 10 MG; Start 08/28/16 at 09:00; Status Future Hold Sucralfate (Carafate) 1 gm QID PO Last administered on 09/08/16 14:02; Admin Dose 1 GM; Start 08/28/16 at 09:00 Morphine Sulfate (morphine) 2 mg Q2H PRN IV PAIN Last administered on 09/01/16 10:22; Admin Dose 2 MG; Start 09/01/16 at 01:30 Digoxin (Digoxin) 0.125 mg Q2D@13 PO Last administered on 09/07/16 14:30; Admin Dose 0.125 MG; Start 09/03/16 at 13:00 Ascorbic Acid (Vitamin C) 500 mg DAILY PO Last administered on 09/08/16 08:32 ; Admin Dose 500 MG; Start 09/03/16 at 10:30 Aspirin (Aspirin) 81 mg DAILY PO Last administered on 09/08/16 08:32; Admin Dose 81 MG; Start 09/03/16 at 10:30; Status Future Hold Docusate Sodium (Colace) 200 mg QHS PO Last administered on 09/07/16 22:30; Admin Dose 200 MG; Start 09/03/16 at 21:00 Zinc Sulfate (Zinc Sulfate) 220 mg DAILY PO Last administered on 09/08/16 08: 31; Admin Dose 220 MG; Start 09/03/16 at 10:30 Multivitamins Therapeutic (Theragran) 1 tab DAILY PO Last administered on 08:32; Admin Dose 1 TAB; Start 09/03/16 at 10:30 Miscellaneous Information 1 ea NOTE XX Last administered on 09/05/16 08:52; Admin Dose 1 EA; Start 09/03/16 at 11:00 Glucose (Glutose) 15 gm Q15M PRN PO DECREASED GLUCOSE; Start 09/03/16 at 11:00 Glucose (Glutose) 22.5 gm Q15M PRN PO DECREASED GLUCOSE; Start 09/03/16 at 11:00 Dextrose (D50w Syringe) 25 ml Q15M PRN IV DECREASED GLUCOSE Last administered on 09/08/16 09:03; Admin Dose 25 ML; Start 09/03/16 at 11:00 Dextrose (D50w Syringe) 50 ml Q15M PRN IV DECREASED GLUCOSE; Start 09/03/16 at 11:00 Glucagon (Glucagen) 1 mg Q15M PRN IM DECREASED GLUCOSE; Start 09/03/16 at 11:00 Glucose (Glutose) 15 gm Q15M PRN BUCCAL DECREASED GLUCOSE; Start 09/03/16 at 11: 00 Mupirocin (Bactroban) 1 applic BID TOP Last administered on 09/08/16 08:32; Admin Dose 1 APPLIC; Start 09/03/16 at 21:00 Pantoprazole (Protonix Tab) 40 mg DAILY@06 PO Last administered on 09/08/16 05 :59; Admin Dose 40 MG; Start 09/05/16 at 06:00 Hydralazine HCl (Apresoline) 10 mg Q8 PO Last administered on 09/08/16 14:02; Admin Dose 10 MG; Start 09/04/16 at 22:00 Furosemide (Lasix) 20 mg DAILY IV Last administered on 09/08/16 08:31; Admin Dose 20 MG; Start 09/05/16 at 09:01 Carvedilol (Coreg) 1.5625 mg BID PO Last administered on 09/08/16 08:32; Admin Dose 1.5625 MG; Start 09/06/16 at 21:00 Heparin Sodium (Porcine) (Heparin (5000 Units/0.5 ml)) 5,000 unit BID SC Last administered on 09/08/16 08:47; Admin Dose 5,000 UNIT; Start 09/06/16 at 21:00; Status Future Hold DODIE OLMSTEAD MD Sep 08, 2016 16:35
--- NOTE | 2016-09-08 18:18 | CONS ---
Date/Time of Note Date/Time of Note DATE: 09/08/16 TIME: 18:17 Assessment/Plan Assessment/Plan Chief Complaint/Hosp Course SYSTOLIC HEART FAILURE better JAZLYN ON CKD LOW EF ASHD DM HX CAD AICD PLACEMENT s/p anasarca PLAN hd mwf will need permacath before dc home hd am Problems: Consultation Date/Type/Reason Admit Date/Time Aug 27, 2016 at 21:25 Initial Consult Date no distress Type of Consultation: renal Referring Provider: BOLA SOLO 24 HR Interval Summary Constitutional: no complaints, other (sob+) Exam/Review of Systems Vital Signs Vitals Vital Signs Date Time Temp Pulse Resp B/P Pulse Ox O2 Delivery O2 Flow Rate FiO2 09/08/16 16:19 60 09/08/16 16:08 98.6 19 115/56 100 09/08/16 08:20 Nasal Cannula 2.0 Intake and Output 09/07/16 09/07/16 09/08/16 15:00 23:00 07:00 Intake Total 400 ml 750 ml 50 ml Output Total 2200 ml Balance -1800 ml 750 ml 50 ml Exam Respiratory: diminished breath sounds Cardiovascular: regular rate and rhythm Gastrointestinal: bowel sounds (+), soft Extremities: edema (+) Results Result Diagram: 09/08/16 0715 09/08/16 0715 Results 24 hrs Laboratory Tests Test 09/07/16 22:04 09/08/16 07:15 09/08/16 08:06 09/08/16 08:24 Bedside Glucose 77 53 L 57 L White Blood Count 6.3 Red Blood Count 3.81 L Hemoglobin 9.8 L Hematocrit 33.6 L Mean Corpuscular Volume 88.2 Mean Corpuscular Hemoglobin 25.7 L Mean Corpuscular Hemoglobin Concent 29.2 L Red Cell Distribution Width 24.7 H Platelet Count 249 Mean Platelet Volume 10.6 H Neutrophils % 71.8 Lymphocytes % 15.2 Monocytes % 10.9 Eosinophils % 1.1 Basophils % 0.5 Nucleated Red Blood Cells % 0.5 H Neutrophils # 4.5 Lymphocytes # 1.0 Monocytes # 0.7 Eosinophils # 0.1 Basophils # 0.0 Nucleated Red Blood Cells # 0.0 Prothrombin Time 19.9 H Prothrombin Time Ratio 1.6 INR International Normalized Ratio 1.68 Activated Partial Thromboplast Time 43.8 H Sodium Level 132 L Potassium Level 3.5 Chloride Level 95 L Carbon Dioxide Level 27 Anion Gap 14 Blood Urea Nitrogen 39 H Creatinine 1.56 H Glucose Level 43 #*L Calcium Level 9.0 Test 09/08/16 08:39 09/08/16 08:58 09/08/16 09:21 09/08/16 12:22 Bedside Glucose 64 L 63 L 148 133 Test 09/08/16 17:09 Bedside Glucose 98 Medications Medications Current Medications Acetaminophen (Tylenol Tab) 650 mg Q6H PRN PO PAIN AND OR ELEVATED TEMP; Start 08/27/16 at 23:00 Insulin Glargine (Lantus) 10 unit QAM SC Last administered on 09/08/16 08:48; Admin Dose 10 UNIT; Start 08/28/16 at 09:00 Ondansetron HCl (Zofran Inj) 4 mg Q6H PRN IV NAUSEA AND/OR VOMITING; Start at 23:00 Isosorbide Dinitrate (Isordil) 10 mg TID PO Last administered on 08/29/16 09:54 ; Admin Dose 10 MG; Start 08/28/16 at 09:00; Status Future Hold Sucralfate (Carafate) 1 gm QID PO Last administered on 09/08/16 17:40; Admin Dose 1 GM; Start 08/28/16 at 09:00 Morphine Sulfate (morphine) 2 mg Q2H PRN IV PAIN Last administered on 09/01/16 10:22; Admin Dose 2 MG; Start 09/01/16 at 01:30 Digoxin (Digoxin) 0.125 mg Q2D@13 PO Last administered on 09/07/16 14:30; Admin Dose 0.125 MG; Start 09/03/16 at 13:00 Ascorbic Acid (Vitamin C) 500 mg DAILY PO Last administered on 09/08/16 08:32 ; Admin Dose 500 MG; Start 09/03/16 at 10:30 Aspirin (Aspirin) 81 mg DAILY PO Last administered on 09/08/16 08:32; Admin Dose 81 MG; Start 09/03/16 at 10:30; Status Future Hold Docusate Sodium (Colace) 200 mg QHS PO Last administered on 09/07/16 22:30; Admin Dose 200 MG; Start 09/03/16 at 21:00 Zinc Sulfate (Zinc Sulfate) 220 mg DAILY PO Last administered on 09/08/16 08: 31; Admin Dose 220 MG; Start 09/03/16 at 10:30 Multivitamins Therapeutic (Theragran) 1 tab DAILY PO Last administered on 08:32; Admin Dose 1 TAB; Start 09/03/16 at 10:30 Miscellaneous Information 1 ea NOTE XX Last administered on 09/05/16 08:52; Admin Dose 1 EA; Start 09/03/16 at 11:00 Glucose (Glutose) 15 gm Q15M PRN PO DECREASED GLUCOSE; Start 09/03/16 at 11:00 Glucose (Glutose) 22.5 gm Q15M PRN PO DECREASED GLUCOSE; Start 09/03/16 at 11:00 Dextrose (D50w Syringe) 25 ml Q15M PRN IV DECREASED GLUCOSE Last administered on 09/08/16 09:03; Admin Dose 25 ML; Start 09/03/16 at 11:00 Dextrose (D50w Syringe) 50 ml Q15M PRN IV DECREASED GLUCOSE; Start 09/03/16 at 11:00 Glucagon (Glucagen) 1 mg Q15M PRN IM DECREASED GLUCOSE; Start 09/03/16 at 11:00 Glucose (Glutose) 15 gm Q15M PRN BUCCAL DECREASED GLUCOSE; Start 09/03/16 at 11: 00 Mupirocin (Bactroban) 1 applic BID TOP Last administered on 09/08/16 08:32; Admin Dose 1 APPLIC; Start 09/03/16 at 21:00 Pantoprazole (Protonix Tab) 40 mg DAILY@06 PO Last administered on 09/08/16 05 :59; Admin Dose 40 MG; Start 09/05/16 at 06:00 Hydralazine HCl (Apresoline) 10 mg Q8 PO Last administered on 09/08/16 14:02; Admin Dose 10 MG; Start 09/04/16 at 22:00 Furosemide (Lasix) 20 mg DAILY IV Last administered on 09/08/16 08:31; Admin Dose 20 MG; Start 09/05/16 at 09:01 Carvedilol (Coreg) 1.5625 mg BID PO Last administered on 09/08/16 08:32; Admin Dose 1.5625 MG; Start 09/06/16 at 21:00 Heparin Sodium (Porcine) (Heparin (5000 Units/0.5 ml)) 5,000 unit BID SC Last administered on 09/08/16t 08:47; Admin Dose 5,000 UNIT; Start 09/06/16 at 21:00; Status Future Hold YANIRA HART MD Sep 08, 2016 18:18
--- NOTE | 2016-09-08 19:25 | PN ---
Date/Time of Note Date/Time of Note DATE: 09/08/16 TIME: 19:23 Assessment/Plan Lines/Catheters IV Catheter Type (from [facility]): Saline Lock Gan in Place (from Nrs): No Assessment/Plan Chief Complaint/Hosp Course 1. Acute renal failure in need of prolonged dialysis. He currently has a right IJ Fidel, which needs to be converted to a PermCath. After medical optimization and clearance, we will proceed with conversion into PermCath. -OR tomorrow if medical team ok to proceed 2. Acute on chronic congestive heart failure with cardiomyopathy and cardiomegaly and ejection fraction of 25%. Continue cardiac optimization and judicious fluid management. 3. Anemia without evidence of acute blood loss. Continue monitoring. 4. Hypoalbuminemia. Will benefit from nutritional optimization. 5. Recent urinary tract infection and pneumonia with sepsis and shock, status post antibiotics and judicious fluid management. Improving. 6. Diabetes mellitus type 2. Continue nutrition and medication optimization. 7. Paroxysmal atrial fibrillation. Continue medical and cardiac optimization. Patient is anticoagulated. 8. Recent acute respiratory failure secondary to multiple issues. Successfully extubated on 09/02/2016. Thank you Problems: Subjective 24 Hr Interval Summary Permacath scheduled for tomorrow am. No f/c. No cough. No sz. No rash. No vomiting or nausea. No abdominal pain. No bloating. Exam/Review of Systems Vital Signs Vitals Vital Signs Date Time Temp Pulse Resp B/P Pulse Ox O2 Delivery O2 Flow Rate FiO2 09/08/16 16:19 60 09/08/16 16:08 98.6 19 115/56 100 09/08/16 08:20 Nasal Cannula 2.0 Intake and Output 09/07/16 09/07/16 09/08/16 15:00 23:00 07:00 Intake Total 400 ml 750 ml 50 ml Output Total 2200 ml Balance -1800 ml 750 ml 50 ml Exam Free Text/Dictation GENERAL: No acute distress, responsive. HEENT: Pupils equal, reactive. No scleral icterus. Mucous membranes are moist. NECK: Minimal JVD. Right IJ Fidel. Supple. PULMONARY: Normal respiratory effort. No wheezing. CARDIAC: S1, S2 present. ABDOMEN: Soft, nontender. EXTREMITIES: No edema. VASCULAR: Cap refill less than 2 seconds. NEUROLOGIC: Alert, oriented, moves all 4 extremities grossly. SKIN: No rashes, no jaundice; however some decubitus stage II ulcerations. LYMPHATIC: No inguinal or cervical lymphadenopathy. Results Result Diagram: 09/08/16 0715 09/08/16 0715 GUILLERMO PRESSLEY MD Sep 08, 2016 19:25
[2016-09-08] MEDS: DOCUSATE SODIUM 100 MG CAP PO SCH (21:21)
[2016-09-09] VITALS (38 sets, daily range): BP systolic 82–142; BP diastolic 39–65; PULSE 59–68; RESP 18–19
[2016-09-09] MEDS: PANTOPRAZOLE (EC) 40 MG TAB PO SCH (05:54)
[2016-09-09 06:59] LABS: ADD SCAN DIFF NO
[2016-09-09 07:03] LABS: ABNORMAL IP MESSAGE 1; BASOPHILS % 0.3 % (0.0-2.0); EOSINOPHILS # 0.1 10^3/ul (0.0-0.5); HEMATOCRIT 31.2 % (42.0-52.0); HEMOGLOBIN 9.3 g/dl (14.0-18.0); LYMPHOCYTES # 1.2 10^3/ul (0.8-2.9); LYMPHOCYTES % 17.9 % (15.0-51.0); MEAN CORPUSCULAR HEMOGLOBIN 25.9 pg (29.0-33.0); MEAN CORPUSCULAR HGB CONC 29.8 g/dl (32.0-37.0); MEAN CORPUSCULAR VOLUME 86.9 fl (82.0-101.0); MEAN PLATELET VOLUME 10.7 fl (7.4-10.4); MONOCYTE # 0.7 10^3/ul (0.3-0.9); MONOCYTES % 10.7 % (0.0-11.0); NEUTROPHIL # 4.7 10^3/ul (1.6-7.5); NEUTROPHILS % 69.7 % (39.0-77.0); NUCLEATED RED BLOOD CELLS # 0.1 10^3/ul (0.0-0.0); NUCLEATED RED BLOOD CELLS% 0.9 /100WBC (0.0-0.0); PLATELET COUNT 280 10^3/UL (140-415); RED BLOOD COUNT 3.59 10^6/ul (4.70-6.10); RED CELL DISTRIBUTION WIDTH 24.7 % (11.5-14.5); WHITE BLOOD COUNT 6.7 10^3/ul (4.8-10.8)
[2016-09-09 07:17] LABS: INR 1.85; PROTIME 21.5 Sec (12.2-14.2); PT RATIO 1.7
[2016-09-09 07:22] LABS: CALCIUM 9.1 mg/dl (8.4-10.2); CREATININE 2.06 mg/dl (0.61-1.24); POTASSIUM 3.9 mmol/L (3.5-5.1)
[2016-09-09] MEDS: INSULIN ASPART [NOVOLOG] 3 ML PEN SC SCH ×4 (07:25→21:00)
[2016-09-09] MEDS: DEXTROSE 50% 50 ML SYRINGE IV PRN ×2 (07:39→14:48)
[2016-09-09] MEDS: ZINC SULFATE 220 MG CAP PO SCH (08:06)
[2016-09-09] MEDS: ASCORBIC ACID 500 MG TAB PO SCH (08:06)
[2016-09-09] MEDS: SUCRALFATE 1 GM TAB PO SCH ×4 (08:06→21:44)
[2016-09-09] MEDS: MULTIVITAMINS THERAPEUTIC TAB PO SCH (08:06)
[2016-09-09] MEDS: INSULIN GLARGINE [LANtus] 3 ML PEN SC SCH (09:00)
--- NOTE | 2016-09-09 10:07 | PN ---
Date/Time of Note Date/Time of Note DATE: 09/09/16 TIME: 10:04 Assessment/Plan Lines/Catheters IV Catheter Type (from Nrs): Saline Lock Gan in Place (from Nrs): No Assessment/Plan Chief Complaint/Hosp Course 1. Acute renal failure in need of prolonged dialysis. He currently has a right IJ Fidel, which needs to be converted to a PermCath. After medical optimization and clearance, we will proceed with conversion into PermCath. -OR today but pt high risk per team and family understands and agrees to proceed 2. Acute on chronic congestive heart failure with cardiomyopathy and cardiomegaly and ejection fraction of 25%. Continue cardiac optimization and judicious fluid management. 3. Anemia without evidence of acute blood loss. Continue monitoring. 4. Hypoalbuminemia. Will benefit from nutritional optimization. 5. Recent urinary tract infection and pneumonia with sepsis and shock, status post antibiotics and judicious fluid management. Improving. 6. Diabetes mellitus type 2. Continue nutrition and medication optimization. 7. Paroxysmal atrial fibrillation. Continue medical and cardiac optimization. Patient is anticoagulated. 8. Recent acute respiratory failure secondary to multiple issues. Successfully extubated on 09/02/2016. Thank you Problems: Subjective 24 Hr Interval Summary Permacath scheduled for today. No f/c. No cough. No sz. No rash. No vomiting or nausea. No abdominal pain. No bloating. High surgical risk per team and family understands that. Exam/Review of Systems Vital Signs Vitals Vital Signs Date Time Temp Pulse Resp B/P Pulse Ox O2 Delivery O2 Flow Rate FiO2 09/09/16 08:09 60 09/09/16 07:50 98.6 18 141/65 100 09/08/16 23:16 Nasal Cannula 2.0 Intake and Output 09/08/16 09/08/16 09/09/16 14:59 22:59 06:59 Intake Total 560 ml 120 ml Balance 560 ml 120 ml Exam Free Text/Dictation GENERAL: No acute distress, responsive. HEENT: Pupils equal, reactive. No scleral icterus. Mucous membranes are moist. NECK: Minimal JVD. Right IJ Fidel. Supple. PULMONARY: Normal respiratory effort. No wheezing. CARDIAC: S1, S2 present. ABDOMEN: Soft, nontender. EXTREMITIES: No edema. VASCULAR: Cap refill less than 2 seconds. NEUROLOGIC: Alert, oriented, moves all 4 extremities grossly. SKIN: No rashes, no jaundice; however some decubitus stage II ulcerations. LYMPHATIC: No inguinal or cervical lymphadenopathy. Results Result Diagram: 09/09/16 0636 09/09/16 0638 GUILLERMO PRESSLEY MD Sep 09, 2016 10:07
--- NOTE | 2016-09-09 10:09 | HPN ---
Date/Time of Note Date/Time of Note DATE: 09/09/16 TIME: 10:07 Interval H&P Admission Note Pt. seen H&P reviewed: Systems changes noted below as per daily notes GUILLERMO PRESSLEY MD Sep 09, 2016 10:08
[2016-09-09] MEDS: MUPIROCIN 2% 22 GM OINT TOP SCH ×2 (10:10→21:45)
[2016-09-09] MEDS: FUROSEMIDE 20 MG INJ IV SCH (10:11)
--- NOTE | 2016-09-09 10:17 | PN ---
Date/Time of Note Date/Time of Note DATE: 09/09/16 TIME: 10:13 Assessment/Plan VTE Prophylaxis VTE Prophylaxis Intervention: heparin Lines/Catheters IV [facility]ter Type (from [facility]): Saline Lock Urinary Cath still in place: No Assessment/Plan Chief Complaint/Hosp Course Assessment/Plan: 81-year-old male with the following medical problems: 1. Endstage CHF - improved - f/u CV rec's, continue PO Hydralazine and very low dose BB, monitor 2. s/p Severe sepsis with lactic acidosis 2/2 UTI - improved now - s/p abx, monitor for now 3. Chronic kidney disease, requiring dialysis more for volume removal 2/2 # 1. UO appears minimal. - Patient needs continued HD and diuretic therapy for continued volume removal - Has whitney now and awaiting possible Permacath placement today - despite some low blood sugar this AM, this has improved with D50. Pt appears medically stable at this point to proceed with perm cath placement. Cardiac clearance has been obtained (see CV note) 4. Acute respiratory failure 2/2 CHF successfully extubated 09/02/16 - monitor 5. Diabetes mellitus type 2 - Titrate insulin therapy as indicated 6. Paroxysmal atrial fibrillation - rate controlled - monitor, f/u CV rec's 8. Coronary artery disease with Severe isch CM s/p CABG and AICD - monitor, f/u CV rec's 9 Chronic hypochromic anemia secondary to end-stage renal disease. - monitor H/H 10. Chronic liver cirrhosis with coagulopathy with Mild hyperbilirubinemia with transaminitis 11 Methicillin-resistant Staphylococcus aureus, nares. s/p 7 days of bactroban 12. Severe debility PROPHYLAXIS: heparin/ PPI as well Problems: Subjective 24 Hr Interval Summary Free Text/Dictation Pt had some hypoglycemia this AM, improved with D50. Awaiting perm cath placement for later today, per nursing had HD yesterday as well. Exam/Review of Systems Vital Signs Vitals Vital Signs Date Time Temp Pulse Resp B/P Pulse Ox O2 Delivery O2 Flow Rate FiO2 09/09/16 08:09 60 09/09/16 07:50 98.6 18 141/65 100 09/08/16 23:16 Nasal Cannula 2.0 Intake and Output 09/08/16 09/08/16 09/09/16 15:00 23:00 07:00 Intake Total 560 ml 120 ml Balance 560 ml 120 ml Exam Constitutional: alert, oriented, cachectic Head: atraumatic, normocephalic Eyes: PERRL ENMT: mucosa pink and moist Neck: supple Respiratory: some crackles/rales, diminished breath sounds Cardiovascular: irregular rhythm, murmurs/extra sounds Gastrointestinal: bowel sounds, non-tender, soft Extremities: No edema Neurological: lethargic, No focal weakness Results Result Diagram: 09/09/16 0636 09/09/16 0638 Results 24 hrs Laboratory Tests Test 09/08/16 12:22 09/08/16 17:09 09/08/16 21:04 09/09/16 06:36 Bedside Glucose 133 98 105 White Blood Count 6.7 Red Blood Count 3.59 L Hemoglobin 9.3 L Hematocrit 31.2 L Mean Corpuscular Volume 86.9 Mean Corpuscular Hemoglobin 25.9 L Mean Corpuscular Hemoglobin Concent 29.8 L Red Cell Distribution Width 24.7 H Platelet Count 280 Mean Platelet Volume 10.7 H Neutrophils % 69.7 Lymphocytes % 17.9 Monocytes % 10.7 Eosinophils % 1.0 Basophils % 0.3 Nucleated Red Blood Cells % 0.9 H Neutrophils # 4.7 Lymphocytes # 1.2 Monocytes # 0.7 Eosinophils # 0.1 Basophils # 0.0 Nucleated Red Blood Cells # 0.1 H Test 09/09/16 06:38 09/09/16 07:33 09/09/16 08:03 09/09/16 08:24 Prothrombin Time 21.5 H Prothrombin Time Ratio 1.7 INR International Normalized Ratio 1.85 Sodium Level 130 L Potassium Level 3.9 Chloride Level 94 L Carbon Dioxide Level 25 Anion Gap 15 Blood Urea Nitrogen 52 H Creatinine 2.06 H Glucose Level 43 *L Calcium Level 9.1 Bedside Glucose 44 *L 205 145 Medications Medications Current Medications Acetaminophen (Tylenol Tab) 650 mg Q6H PRN PO PAIN AND OR ELEVATED TEMP; Start 08/27/16 at 23:00 Insulin Glargine (Lantus) 10 unit QAM SC Last administered on 09/08/16t 08:48; Admin Dose 10 UNIT; Start 08/28/16 at 09:00 Ondansetron HCl (Zofran Inj) 4 mg Q6H PRN IV NAUSEA AND/OR VOMITING; Start at 23:00 Isosorbide Dinitrate (Isordil) 10 mg TID PO Last administered on 08/29/16 09:54 ; Admin Dose 10 MG; Start 08/28/16 at 09:00; Status Future Hold Sucralfate (Carafate) 1 gm QID PO Last administered on 09/08/16 21:22; Admin Dose 1 GM; Start 08/28/16 at 09:00 Morphine Sulfate (morphine) 2 mg Q2H PRN IV PAIN Last administered on 09/01/16 10:22; Admin Dose 2 MG; Start 09/01/16 at 01:30 Digoxin (Digoxin) 0.125 mg Q2D@13 PO Last administered on 09/07/16 14:30; Admin Dose 0.125 MG; Start 09/03/16 at 13:00 Ascorbic Acid (Vitamin C) 500 mg DAILY PO Last administered on 09/08/16 08:32 ; Admin Dose 500 MG; Start 09/03/16 at 10:30 Aspirin (Aspirin) 81 mg DAILY PO Last administered on 09/08/16 08:32; Admin Dose 81 MG; Start 09/03/16 at 10:30; Status Future Hold Docusate Sodium (Colace) 200 mg QHS PO Last administered on 09/08/16 21:21; Admin Dose 200 MG; Start 09/03/16 at 21:00 Zinc Sulfate (Zinc Sulfate) 220 mg DAILY PO Last administered on 09/08/16 08: 31; Admin Dose 220 MG; Start 09/03/16 at 10:30 Multivitamins Therapeutic (Theragran) 1 tab DAILY PO Last administered on 08:32; Admin Dose 1 TAB; Start 09/03/16 at 10:30 Miscellaneous Information 1 ea NOTE XX Last administered on 09/05/16 08:52; Admin Dose 1 EA; Start 09/03/16 at 11:00 Glucose (Glutose) 15 gm Q15M PRN PO DECREASED GLUCOSE; Start 09/03/16 at 11:00 Glucose (Glutose) 22.5 gm Q15M PRN PO DECREASED GLUCOSE; Start 09/03/16 at 11:00 Dextrose (D50w Syringe) 25 ml Q15M PRN IV DECREASED GLUCOSE Last administered on 09/08/16 09:03; Admin Dose 25 ML; Start 09/03/16 at 11:00 Dextrose (D50w Syringe) 50 ml Q15M PRN IV DECREASED GLUCOSE Last administered on 09/09/16 07:39; Admin Dose 50 ML; Start 09/03/16 at 11:00 Glucagon (Glucagen) 1 mg Q15M PRN IM DECREASED GLUCOSE; Start 09/03/16 at 11:00 Glucose (Glutose) 15 gm Q15M PRN BUCCAL DECREASED GLUCOSE; Start 09/03/16 at 11: 00 Mupirocin (Bactroban) 1 applic BID TOP Last administered on 09/09/16 10:10; Admin Dose 1 APPLIC; Start 09/03/16 at 21:00 Pantoprazole (Protonix Tab) 40 mg DAILY@06 PO Last administered on 09/08/16 05 :59; Admin Dose 40 MG; Start 09/05/16 at 06:00 Hydralazine HCl (Apresoline) 10 mg Q8 PO Last administered on 09/08/16 21:23; Admin Dose 10 MG; Start 09/04/16 at 22:00 Furosemide (Lasix) 20 mg DAILY IV Last administered on 09/09/16 10:11; Admin Dose 20 MG; Start 09/05/16 at 09:01 Carvedilol (Coreg) 1.5625 mg BID PO Last administered on 09/08/16 21:22; Admin Dose 1.5625 MG; Start 09/06/16 at 21:00 Heparin Sodium (Porcine) (Heparin (5000 Units/0.5 ml)) 5,000 unit BID SC Last administered on 09/08/16 08:47; Admin Dose 5,000 UNIT; Start 09/06/16 at 21:00; Status Future Hold Insulin Aspart (Novolog Insulin Pen) NOVOLOG *MILD* ALGORI... Q4 SC ; Start 05/16 at 13:00; Status UNV Miscellaneous Information (* Miscellaneous Pharmacy Order) HYPOGLYCEMIA PROTOCOL w... ONCE ONCE XX ; Start 09/09/16 at 10:30; Stop 09/09/16 at 10:31; Status UNV Miscellaneous Information (* Miscellaneous Pharmacy Order) Discontinue Glyburide , Glipizide,... ONCE ONCE XX ; Start 09/09/16 at 10:30; Stop 09/09/16 at 10:31 ; Status UNV Miscellaneous Information (* Miscellaneous Pharmacy Order) Discontinue all previ... ONCE ONCE XX ; Start 09/09/16 at 10:30; Stop 09/09/16 at 10:31; Status OSVALDOV THERESA RIVERA Sep 09, 2016 10:17
[2016-09-09] MEDS ORDERED: MIDAZOLAM 1 MG/ML 2 ML INJ IV PRN (11:00)
[2016-09-09] MEDS ORDERED: hydrALAzine 20 MG INJ IV PRN (11:00)
[2016-09-09] MEDS ORDERED: MEPERIDINE 25 MG INJ IV PRN (11:00)
[2016-09-09] MEDS ORDERED: METOCLOPRAMIDE 10 MG INJ IV PRN (11:00)
[2016-09-09] MEDS ORDERED: EPHEDrine SULFATE 50 MG/5 ML SYG IV PRN (11:00)
[2016-09-09] MEDS ORDERED: LABETALOL HCL 20MG INJ IV PRN (11:00)
[2016-09-09] MEDS ORDERED: DIPHENHYDRAMINE 50 MG INJ IV PRN (11:00)
[2016-09-09] MEDS ORDERED: morphine (1 MG/ML) 10ML SYRINGE IV PRN ×2 (11:00)
[2016-09-09] MEDS ORDERED: ONDANSETRON 4 MG INJ IV PRN (11:00)
[2016-09-09] MEDS ORDERED: FENTAnyl 50 MCG/ML VIAL IV PRN ×2 (11:00)
[2016-09-09] MEDS ORDERED: PROPOFOL 20 ML ONE (11:05)
[2016-09-09] MEDS ORDERED: MIDAZOLAM 1 MG/ML 2 ML INJ ONE (11:05)
[2016-09-09] MEDS ORDERED: FENTAnyl 50 MCG/ML VIAL ONE (11:05)
[2016-09-09] MEDS ORDERED: CEFAZOLIN 1 GM INJ ONE (11:09)
[2016-09-09] MEDS ORDERED: IOHEXOL 300MG/ML 30 ML BTL ONE (11:10)
[2016-09-09] MEDS ORDERED: LIDOCAINE 1% (STERILE-PAK) 30 ML INJ ONE (11:10)
[2016-09-09] MEDS ORDERED: HEPARIN 1000 UNITS/ML 10 ML INJ ONE (11:10)
--- NOTE | 2016-09-09 12:39 | RADRPT ---
PROCEDURE: XR Chest. CLINICAL INDICATION: Check line placement. TECHNIQUE: Single frontal view. COMPARISON: 08/31/2016. FINDINGS: There is a tunneled right internal jugular vein dialysis catheter with the tip in the cavoatrial ladonna ction region. The endotracheal tube has been removed. There are sternal wires. There is a left-si ded single lead permanent pacemaker/internal cardiac defibrillator. The heart is enlarged. Pulmonary edema is unchanged. There is no pleural effusion or pneumothorax. The portion of the upper abdomen included on the image demonstrates a left renal calculus measuring 1.3 cm. IMPRESSION: 1. Satisfactory position of tunneled dialysis catheter. 2. No pneumothorax. 3. Previous median sternotomy. 4. Permanent pacemaker/internal cardiac defibrillator. 5. Cardiomegaly. 6. Pulmonary edema. 7. Left renal calculus measuring 1.3 cm. This was also present on CT scan of the abdomen and pelvis dated 08/27/2016. RPTAT: QQ .Eugenio Ruano MD, MD Date Time Electronically viewed and signed by .Eugenio Ruano MD, MD on 09/09/2016 12:39 .R/
--- NOTE | 2016-09-09 12:51 | OPR ---
Date/Time of Note Date/Time of Note DATE: 09/09/16 TIME: 12:47 Operative Report Procedure Date: Sep 09, 2016 Preoperative Diagnosis Incisional disease on hemodialysis in need of long-term catheter Postoperative Diagnosis Same Operation Performed 1. Right internal jugular tunneled dialysis catheter insertion, permacath 2. Local anesthetic injection, [id number] Surgeon: GUILLERMO PRESSLEY MD Anesthesia: MAC (Local and MAC), other Anesthesiologist: EDMOND ARRIAGA MD Estimated Blood Loss: 0 - 10 ml's Specimens None Tubes/Drains 19 cm 14.5 Peruvian curved permacath Complications: None Pt Condition Post Procedure: stable Disposition: PACU Indications Per notes. Risks include but are not limited to bleeding, infection, abscess, seroma, damage to neck structures/lungs/heart, chronic pain, need for emergent or re- operations or further surgeries, NC, stroke, PE, DVT, pneumonia, organ failures , or even . Patient's son, Manohar, understand that he is at high risk for complication. Procedure Description Patient was brought in and placed supine on the operating table. Both arms were tucked. All pressure points were well-padded. He received perioperative antibiotics. After institution of anesthesia his right neck was prepped and draped sterilely and timeout was performed. Guidewire was placed through the Fidel catheter into the SVC. Incision was made in the right chest and the permacath was tunneled to the right chest into the right neck incision. Previous catheter was removed and the introducer was placed over the wire into the SVC. The new catheter was placed through the introducer into the SVC using Seldinger technique. X-ray identified normal positioning of the catheter. Both ports easily draw back dark nonpulsatile blood and easily flushed with saline. Line was secured with 2-0 nylon to the skin and then 4-0 Monocryl was used to close the neck incision in a subcuticular fashion. Dermabond was applied there. Pressure dressing was applied. Heparin was instilled in both ports. Sats and breath sounds maintained. Patient was taken back to recovery room in stable condition. All counts were correct at end the operation 2. GUILLERMO PRESSLEY MD Sep 09, 2016 12:51
[2016-09-09] MEDS: DIGOXIN 0.125 MG TAB PO SCH (13:00)
--- NOTE | 2016-09-09 14:41 | RADRPT ---
PROCEDURE: XR Chest. CLINICAL INDICATION: Shortness of breath. Check line placement. TECHNIQUE: Single frontal view. COMPARISON: 09/09/2016. 1218 hours. FINDINGS: There is a right internal jugular vein tunneled dialysis catheter with the tip in the cavoatrial ladonna ction region. There are sternal wires. There is a left-sided single lead permanent pacemaker/inter nal cardiac defibrillator. The heart is enlarged. There is pulmonary edema, unchanged. There is no pleural effusion. There is no pneumothorax. IMPRESSION: 1. Right internal jugular vein tunneled dialysis catheter in satisfactory position. 2. No change from the prior study done earlier the same day. RPTAT: QQ .Eugenio Ruano MD, MD Date Time Electronically viewed and signed by .Eugenio Ruano MD, MD on 09/09/2016 14:41 .R/
[2016-09-09] MEDS ORDERED: ALBUMIN HUMAN 25% 100 ML IV ONE (16:00)
--- NOTE | 2016-09-09 18:10 | CONS ---
Date/Time of Note Date/Time of Note DATE: 09/09/16 TIME: 18:06 Assessment/Plan Assessment/Plan Chief Complaint/Hosp Course IMp: 1.CHF-systolic acute on chronic 2.Hypotension-Levo just turned off 3.REnal failurwe s/p HD 4.Cardiomyopathy with low EF 5.AICD 6.H/O cad s/p cabg 7.PAF 8.Coagulopathy-overall improved 9. Resp failure-improved s/p extubation 10.[id number] is without cardiac contraindication to proceeding permacath placement at this time but high risk due to severely depressed EF/cad. Would correct coagulopathy prior to placement and optimize volume status as possible with aggresive HD volume removal Recc: -Tele -Continue abx's and f/u cx data -HD for volume removal -Continue digoxin QOD -Resume apixaban as able -Continue to follow BP closely on low dose hydralazine afterload reduction and low dose coreg. Problems: Consultation Date/Type/Reason Admit Date/Time Aug 27, 2016 at 21:25 Initial Consult Date 08/28/2016 Type of Consultation: Cardiology Reason for Consultation CHF Referring Provider: BOLA SOLO Exam/Review of Systems Vital Signs Vitals Vital Signs Date Time Temp Pulse Resp B/P Pulse Ox O2 Delivery O2 Flow Rate FiO2 09/09/16 16:38 97.0 60 18 94/44 94 09/09/16 13:47 Nasal Cannula 3.0 Intake and Output 09/08/16 09/08/16 09/09/16 15:00 23:00 07:00 Intake Total 560 ml 120 ml Balance 560 ml 120 ml Exam Review of Systems: CONSTITUTIONAL: No fevers, chills. PULMONARY: No sob CARDIOVASCULAR: No chest pain/palpitations GASTROINTESTINAL: No nausea/vomiting. GENITOURINARY: No hematuria/dysuria. MUSCULOSKELETAL: No myagias/arthalgias. PSYCHIATRIC: The patient denies depression. NEUROLOGIC: lethargic Constitutional: alert Psych: no complaints Head: normocephalic ENMT: mucosa pink and moist Neck: jvd (9 cm water), supple Respiratory: diminished breath sounds Cardiovascular: regular rate and rhythm Gastrointestinal: non-tender, soft Musculoskeletal: muscle tone (normal) Extremities: edema (none) Neurological: other (No focal deficits) Results Result Diagram: 09/09/16 0636 09/09/16 0638 Results 24 hrs Laboratory Tests Test 09/08/16 21:04 09/09/16 06:36 09/09/16 06:38 09/09/16 07:33 Bedside Glucose 105 44 *L White Blood Count 6.7 Red Blood Count 3.59 L Hemoglobin 9.3 L Hematocrit 31.2 L Mean Corpuscular Volume 86.9 Mean Corpuscular Hemoglobin 25.9 L Mean Corpuscular Hemoglobin Concent 29.8 L Red Cell Distribution Width 24.7 H Platelet Count 280 Mean Platelet Volume 10.7 H Neutrophils % 69.7 Lymphocytes % 17.9 Monocytes % 10.7 Eosinophils % 1.0 Basophils % 0.3 Nucleated Red Blood Cells % 0.9 H Neutrophils # 4.7 Lymphocytes # 1.2 Monocytes # 0.7 Eosinophils # 0.1 Basophils # 0.0 Nucleated Red Blood Cells # 0.1 H Prothrombin Time 21.5 H Prothrombin Time Ratio 1.7 INR International Normalized Ratio 1.85 Sodium Level 130 L Potassium Level 3.9 Chloride Level 94 L Carbon Dioxide Level 25 Anion Gap 15 Blood Urea Nitrogen 52 H Creatinine 2.06 H Glucose Level 43 *L Calcium Level 9.1 Test 09/09/16 08:03 09/09/16 08:24 09/09/16 14:40 09/09/16 15:00 Bedside Glucose 205 145 37 *L 212 Test 09/09/16 17:49 Bedside Glucose 107 Medications Medications Current Medications Acetaminophen (Tylenol Tab) 650 mg Q6H PRN PO PAIN AND OR ELEVATED TEMP; Start 08/27/16 at 23:00 Insulin Glargine (Lantus) 10 unit QAM SC Last administered on 09/08/16 08:48; Admin Dose 10 UNIT; Start 08/28/16 at 09:00 Ondansetron HCl (Zofran Inj) 4 mg Q6H PRN IV NAUSEA AND/OR VOMITING; Start at 23:00 Isosorbide Dinitrate (Isordil) 10 mg TID PO Last administered on 08/29/16 09:54 ; Admin Dose 10 MG; Start 08/28/16 at 09:00; Status Future Hold Sucralfate (Carafate) 1 gm QID PO Last administered on 09/09/16 17:56; Admin Dose 1 GM; Start 08/28/16 at 09:00 Morphine Sulfate (morphine) 2 mg Q2H PRN IV PAIN Last administered on 09/01/16 10:22; Admin Dose 2 MG; Start 09/01/16 at 01:30 Digoxin (Digoxin) 0.125 mg Q2D@13 PO Last administered on 09/07/16 14:30; Admin Dose 0.125 MG; Start 09/03/16 at 13:00 Ascorbic Acid (Vitamin C) 500 mg DAILY PO Last administered on 09/08/16 08:32 ; Admin Dose 500 MG; Start 09/03/16 at 10:30 Aspirin (Aspirin) 81 mg DAILY PO Last administered on 09/08/16 08:32; Admin Dose 81 MG; Start 09/03/16 at 10:30; Status Future Hold Docusate Sodium (Colace) 200 mg QHS PO Last administered on 09/08/16 21:21; Admin Dose 200 MG; Start 09/03/16 at 21:00 Zinc Sulfate (Zinc Sulfate) 220 mg DAILY PO Last administered on 09/08/16 08: 31; Admin Dose 220 MG; Start 09/03/16 at 10:30 Multivitamins Therapeutic (Theragran) 1 tab DAILY PO Last administered on 08:32; Admin Dose 1 TAB; Start 09/03/16 at 10:30 Miscellaneous Information 1 ea NOTE XX Last administered on 09/05/16 08:52; Admin Dose 1 EA; Start 09/03/16 at 11:00 Glucose (Glutose) 15 gm Q15M PRN PO DECREASED GLUCOSE; Start 09/03/16 at 11:00 Glucose (Glutose) 22.5 gm Q15M PRN PO DECREASED GLUCOSE; Start 09/03/16 at 11:00 Dextrose (D50w Syringe) 25 ml Q15M PRN IV DECREASED GLUCOSE Last administered on 09/08/16 09:03; Admin Dose 25 ML; Start 09/03/16 at 11:00 Dextrose (D50w Syringe) 50 ml Q15M PRN IV DECREASED GLUCOSE Last administered on 09/09/16 14:48; Admin Dose 50 ML; Start 09/03/16 at 11:00 Glucagon (Glucagen) 1 mg Q15M PRN IM DECREASED GLUCOSE; Start 09/03/16 at 11:00 Glucose (Glutose) 15 gm Q15M PRN BUCCAL DECREASED GLUCOSE; Start 09/03/16 at 11: 00 Mupirocin (Bactroban) 1 applic BID TOP Last administered on 09/09/16 10:10; Admin Dose 1 APPLIC; Start 09/03/16 at 21:00 Pantoprazole (Protonix Tab) 40 mg DAILY@06 PO Last administered on 09/08/16 05 :59; Admin Dose 40 MG; Start 09/05/16 at 06:00 Hydralazine HCl (Apresoline) 10 mg Q8 PO Last administered on 09/08/16 21:23; Admin Dose 10 MG; Start 09/04/16 at 22:00 Furosemide (Lasix) 20 mg DAILY IV Last administered on 09/09/16 10:11; Admin Dose 20 MG; Start 09/05/16 at 09:01 Carvedilol (Coreg) 1.5625 mg BID PO Last administered on 09/08/16 21:22; Admin Dose 1.5625 MG; Start 09/06/16 at 21:00 Heparin Sodium (Porcine) (Heparin (5000 Units/0.5 ml)) 5,000 unit BID SC Last administered on 09/08/16 08:47; Admin Dose 5,000 UNIT; Start 09/06/16 at 21:00; Status Future Hold Insulin Aspart (Novolog Insulin Pen) NOVOLOG *MILD* ALGORI... Q4 SC ; Start 05/16 at 13:00 POLI SAN Sep 09, 2016 18:10
--- NOTE | 2016-09-09 19:54 | CONS ---
Date/Time of Note Date/Time of Note DATE: 09/09/16 TIME: 19:52 Assessment/Plan Assessment/Plan Chief Complaint/Hosp Course SYSTOLIC HEART FAILURE better w hd AJZLYN ON CKD LOW EF ASHD DM HX CAD AICD PLACEMENT s/p anasarca PLAN hd mwf hd Problems: Consultation Date/Type/Reason Admit Date/Time Aug 27, 2016 at 21:25 Initial Consult Date s/p permacath placement Type of Consultation: renal Referring Provider: BOLA SOLO Exam/Review of Systems Vital Signs Vitals Vital Signs Date Time Temp Pulse Resp B/P Pulse Ox O2 Delivery O2 Flow Rate FiO2 09/09/16 18:10 62 09/09/16 16:38 97.0 18 94/44 94 09/09/16 13:47 Nasal Cannula 3.0 Intake and Output 09/08/16 09/08/16 09/09/16 15:00 23:00 07:00 Intake Total 560 ml 120 ml Balance 560 ml 120 ml Exam Neck: supple Respiratory: diminished breath sounds Cardiovascular: regular rate and rhythm Gastrointestinal: bowel sounds (+), soft Musculoskeletal: nl extremities to inspection Extremities: edema (+) Results Result Diagram: 09/09/16 0636 09/09/16 0638 Results 24 hrs Laboratory Tests Test 09/08/16 21:04 09/09/16 06:36 09/09/16 06:38 09/09/16 07:33 Bedside Glucose 105 44 *L White Blood Count 6.7 Red Blood Count 3.59 L Hemoglobin 9.3 L Hematocrit 31.2 L Mean Corpuscular Volume 86.9 Mean Corpuscular Hemoglobin 25.9 L Mean Corpuscular Hemoglobin Concent 29.8 L Red Cell Distribution Width 24.7 H Platelet Count 280 Mean Platelet Volume 10.7 H Neutrophils % 69.7 Lymphocytes % 17.9 Monocytes % 10.7 Eosinophils % 1.0 Basophils % 0.3 Nucleated Red Blood Cells % 0.9 H Neutrophils # 4.7 Lymphocytes # 1.2 Monocytes # 0.7 Eosinophils # 0.1 Basophils # 0.0 Nucleated Red Blood Cells # 0.1 H Prothrombin Time 21.5 H Prothrombin Time Ratio 1.7 INR International Normalized Ratio 1.85 Sodium Level 130 L Potassium Level 3.9 Chloride Level 94 L Carbon Dioxide Level 25 Anion Gap 15 Blood Urea Nitrogen 52 H Creatinine 2.06 H Glucose Level 43 *L Calcium Level 9.1 Test 09/09/16 08:03 09/09/16 08:24 09/09/16 14:40 09/09/16 15:00 Bedside Glucose 205 145 37 *L 212 Test 09/09/16 17:49 Bedside Glucose 107 Medications Medications Current Medications Acetaminophen (Tylenol Tab) 650 mg Q6H PRN PO PAIN AND OR ELEVATED TEMP; Start 08/27/16 at 23:00 Insulin Glargine (Lantus) 10 unit QAM SC Last administered on 09/08/16 08:48; Admin Dose 10 UNIT; Start 08/28/16 at 09:00 Ondansetron HCl (Zofran Inj) 4 mg Q6H PRN IV NAUSEA AND/OR VOMITING; Start at 23:00 Isosorbide Dinitrate (Isordil) 10 mg TID PO Last administered on 08/29/16 09:54 ; Admin Dose 10 MG; Start 08/28/16 at 09:00; Status Future Hold Sucralfate (Carafate) 1 gm QID PO Last administered on 09/09/16 17:56; Admin Dose 1 GM; Start 08/28/16 at 09:00 Morphine Sulfate (morphine) 2 mg Q2H PRN IV PAIN Last administered on 09/01/16 10:22; Admin Dose 2 MG; Start 09/01/16 at 01:30 Digoxin (Digoxin) 0.125 mg Q2D@13 PO Last administered on 09/07/16 14:30; Admin Dose 0.125 MG; Start 09/03/16 at 13:00 Ascorbic Acid (Vitamin C) 500 mg DAILY PO Last administered on 09/08/16 08:32 ; Admin Dose 500 MG; Start 09/03/16 at 10:30 Aspirin (Aspirin) 81 mg DAILY PO Last administered on 09/08/16 08:32; Admin Dose 81 MG; Start 09/03/16 at 10:30; Status Future Hold Docusate Sodium (Colace) 200 mg QHS PO Last administered on 09/08/16 21:21; Admin Dose 200 MG; Start 09/03/16 at 21:00 Zinc Sulfate (Zinc Sulfate) 220 mg DAILY PO Last administered on 09/08/16 08: 31; Admin Dose 220 MG; Start 09/03/16 at 10:30 Multivitamins Therapeutic (Theragran) 1 tab DAILY PO Last administered on 08:32; Admin Dose 1 TAB; Start 09/03/16 at 10:30 Miscellaneous Information 1 ea NOTE XX Last administered on 09/05/16 08:52; Admin Dose 1 EA; Start 09/03/16 at 11:00 Glucose (Glutose) 15 gm Q15M PRN PO DECREASED GLUCOSE; Start 09/03/16 at 11:00 Glucose (Glutose) 22.5 gm Q15M PRN PO DECREASED GLUCOSE; Start 09/03/16 at 11:00 Dextrose (D50w Syringe) 25 ml Q15M PRN IV DECREASED GLUCOSE Last administered on 09/08/16 09:03; Admin Dose 25 ML; Start 09/03/16 at 11:00 Dextrose (D50w Syringe) 50 ml Q15M PRN IV DECREASED GLUCOSE Last administered on 09/09/16 14:48; Admin Dose 50 ML; Start 09/03/16 at 11:00 Glucagon (Glucagen) 1 mg Q15M PRN IM DECREASED GLUCOSE; Start 09/03/16 at 11:00 Glucose (Glutose) 15 gm Q15M PRN BUCCAL DECREASED GLUCOSE; Start 09/03/16 at 11: 00 Mupirocin (Bactroban) 1 applic BID TOP Last administered on 09/09/16 10:10; Admin Dose 1 APPLIC; Start 09/03/16 at 21:00 Pantoprazole (Protonix Tab) 40 mg DAILY@06 PO Last administered on 09/08/16 05 :59; Admin Dose 40 MG; Start 09/05/16 at 06:00 Hydralazine HCl (Apresoline) 10 mg Q8 PO Last administered on 09/08/16 21:23; Admin Dose 10 MG; Start 09/04/16 at 22:00 Furosemide (Lasix) 20 mg DAILY IV Last administered on 09/09/16 10:11; Admin Dose 20 MG; Start 09/05/16 at 09:01 Carvedilol (Coreg) 1.5625 mg BID PO Last administered on 09/08/16 21:22; Admin Dose 1.5625 MG; Start 09/06/16 at 21:00 Heparin Sodium (Porcine) (Heparin (5000 Units/0.5 ml)) 5,000 unit BID SC Last administered on 09/08/16t 08:47; Admin Dose 5,000 UNIT; Start 09/06/16 at 21:00; Status Future Hold Insulin Aspart (Novolog Insulin Pen) NOVOLOG *MILD* ALGORI... Q4 SC ; Start 05/16 at 13:00 YANIRA HART MD Sep 09, 2016 19:54
[2016-09-09] MEDS: DOCUSATE SODIUM 100 MG CAP PO SCH (21:43)
[2016-09-10] VITALS (13 sets, daily range): BP systolic 96–125; BP diastolic 51–58; PULSE 60; RESP 18–20
[2016-09-10] MEDS: INSULIN ASPART [NOVOLOG] 3 ML PEN SC SCH ×3 (01:00→08:42)
[2016-09-10] MEDS: PANTOPRAZOLE (EC) 40 MG TAB PO SCH (06:15)
[2016-09-10 07:23] LABS: ADD SCAN DIFF NO
[2016-09-10 07:24] LABS: ABNORMAL IP MESSAGE 1; BASOPHILS % 0.1 % (0.0-2.0); HEMATOCRIT 30.3 % (42.0-52.0); HEMOGLOBIN 9.1 g/dl (14.0-18.0); LYMPHOCYTES # 0.8 10^3/ul (0.8-2.9); LYMPHOCYTES % 8.6 % (15.0-51.0); MEAN CORPUSCULAR HEMOGLOBIN 26.7 pg (29.0-33.0); MEAN CORPUSCULAR VOLUME 88.9 fl (82.0-101.0); MEAN PLATELET VOLUME 10.5 fl (7.4-10.4); MONOCYTE # 0.6 10^3/ul (0.3-0.9); MONOCYTES % 6.8 % (0.0-11.0); NEUTROPHIL # 7.3 10^3/ul (1.6-7.5); NEUTROPHILS % 83.8 % (39.0-77.0); NUCLEATED RED BLOOD CELLS # 0.2 10^3/ul (0.0-0.0); NUCLEATED RED BLOOD CELLS% 2.2 /100WBC (0.0-0.0); PLATELET COUNT 259 10^3/UL (140-415); RED BLOOD COUNT 3.41 10^6/ul (4.70-6.10); RED CELL DISTRIBUTION WIDTH 24.6 % (11.5-14.5); WHITE BLOOD COUNT 8.7 10^3/ul (4.8-10.8)
[2016-09-10] MEDS: ACETAMINOPHEN 325 MG TAB PO PRN (08:31)
[2016-09-10] MEDS: FUROSEMIDE 20 MG INJ IV SCH (08:31)
[2016-09-10] MEDS: ASCORBIC ACID 500 MG TAB PO SCH (08:31)
[2016-09-10] MEDS: SUCRALFATE 1 GM TAB PO SCH ×4 (08:31→20:35)
[2016-09-10] MEDS: MULTIVITAMINS THERAPEUTIC TAB PO SCH (08:31)
[2016-09-10] MEDS: ZINC SULFATE 220 MG CAP PO SCH (08:31)
[2016-09-10] MEDS: MUPIROCIN 2% 22 GM OINT TOP SCH ×2 (08:32→20:37)
[2016-09-10 08:36] LABS: CREATININE 1.77 mg/dl (0.61-1.24); POTASSIUM 4.2 mmol/L (3.5-5.1)
[2016-09-10] MEDS: INSULIN GLARGINE [LANtus] 3 ML PEN SC SCH (08:43)
--- NOTE | 2016-09-10 10:03 | PN ---
Date/Time of Note Date/Time of Note DATE: 09/10/16 TIME: 10:01 Assessment/Plan VTE Prophylaxis VTE Prophylaxis Intervention: heparin Lines/Catheters IV [facility] Type (from [facility]): Peripheral IV Urinary Cath still in place: No Assessment/Plan Chief Complaint/Hosp Course Assessment/Plan: 81-year-old male with the following medical problems: 1. Endstage CHF - improved - f/u CV rec's, continue PO Hydralazine and very low dose BB, monitor 2. s/p Severe sepsis with lactic acidosis 2/2 UTI - improved now - s/p abx, monitor for now 3. Chronic kidney disease, requiring dialysis more for volume removal 2/2 # 1. UO appears minimal. - Patient needs continued HD and diuretic therapy for continued volume removal - Has now received Permacath placement - f/u renal rec's 4. Acute respiratory failure 2/2 CHF successfully extubated 09/02/16 - monitor 5. Diabetes mellitus type 2 - Titrate insulin therapy as indicated 6. Paroxysmal atrial fibrillation - rate controlled - monitor, f/u CV rec's 8. Coronary artery disease with Severe isch CM s/p CABG and AICD - monitor, f/u CV rec's 9 Chronic hypochromic anemia secondary to end-stage renal disease. - monitor H/H 10. Chronic liver cirrhosis with coagulopathy with Mild hyperbilirubinemia with transaminitis 11 Methicillin-resistant Staphylococcus aureus, nares. s/p 7 days of bactroban 12. Severe debility PROPHYLAXIS: heparin/ PPI as well Problems: Subjective 24 Hr Interval Summary Free Text/Dictation Pt received perm cath placement yesterday. Exam/Review of Systems Vital Signs Vitals Vital Signs Date Time Temp Pulse Resp B/P Pulse Ox O2 Delivery O2 Flow Rate FiO2 09/10/16 08:04 60 09/10/16 07:54 97.8 19 125/58 100 09/09/16 22:50 Nasal Cannula 2.0 Intake and Output 09/09/16 09/09/16 09/10/16 14:59 22:59 06:59 Intake Total 200 ml 580 ml 120 ml Output Total 9 ml 2000 ml Balance 191 ml -1420 ml 120 ml Exam Constitutional: alert, oriented, cachectic Head: atraumatic, normocephalic Eyes: PERRL ENMT: mucosa pink and moist Neck: supple Respiratory: some crackles/rales, diminished breath sounds Cardiovascular: irregular rhythm, murmurs/extra sounds Gastrointestinal: bowel sounds, non-tender, soft Extremities: No edema Neurological: lethargic, No focal weakness Results Result Diagram: 09/10/16 0652 09/10/16 0625 Results 24 hrs Laboratory Tests Test 09/09/16 14:40 09/09/16 15:00 09/09/16 17:49 09/09/16 21:42 Bedside Glucose 37 *L 212 107 128 Test 09/10/16 01:50 09/10/16 04:30 09/10/16 06:25 09/10/16 06:52 Bedside Glucose 116 109 Sodium Level 132 L Potassium Level 4.2 Chloride Level 96 L Carbon Dioxide Level 21 Anion Gap 19 H Blood Urea Nitrogen 38 #H Creatinine 1.77 H Glucose Level 138 # Calcium Level 9.0 White Blood Count 8.7 # Red Blood Count 3.41 L Hemoglobin 9.1 L Hematocrit 30.3 L Mean Corpuscular Volume 88.9 Mean Corpuscular Hemoglobin 26.7 L Mean Corpuscular Hemoglobin Concent 30.0 L Red Cell Distribution Width 24.6 H Platelet Count 259 Mean Platelet Volume 10.5 H Neutrophils % 83.8 H Lymphocytes % 8.6 L Monocytes % 6.8 Eosinophils % 0.0 Basophils % 0.1 Nucleated Red Blood Cells % 2.2 H Neutrophils # 7.3 Lymphocytes # 0.8 Monocytes # 0.6 Eosinophils # 0.0 Basophils # 0.0 Nucleated Red Blood Cells # 0.2 H Test 09/10/16 08:33 Bedside Glucose 147 Medications Medications Current Medications Acetaminophen (Tylenol Tab) 650 mg Q6H PRN PO PAIN AND OR ELEVATED TEMP Last administered on 09/10/16 08:31; Admin Dose 650 MG; Start 08/27/16 at 23:00 Insulin Glargine (Lantus) 10 unit QAM SC Last administered on 09/10/16 08:43; Admin Dose 10 UNIT; Start 08/28/16 at 09:00 Ondansetron HCl (Zofran Inj) 4 mg Q6H PRN IV NAUSEA AND/OR VOMITING; Start at 23:00 Isosorbide Dinitrate (Isordil) 10 mg TID PO Last administered on 08/29/16 09:54 ; Admin Dose 10 MG; Start 08/28/16 at 09:00; Status Future Hold Sucralfate (Carafate) 1 gm QID PO Last administered on 09/10/16 08:31; Admin Dose 1 GM; Start 08/28/16 at 09:00 Morphine Sulfate (morphine) 2 mg Q2H PRN IV PAIN Last administered on 09/01/16 10:22; Admin Dose 2 MG; Start 09/01/16 at 01:30 Digoxin (Digoxin) 0.125 mg Q2D@13 PO Last administered on 09/07/16 14:30; Admin Dose 0.125 MG; Start 09/03/16 at 13:00 Ascorbic Acid (Vitamin C) 500 mg DAILY PO Last administered on 09/10/16 08:31 ; Admin Dose 500 MG; Start 09/03/16 at 10:30 Aspirin (Aspirin) 81 mg DAILY PO Last administered on 09/08/16 08:32; Admin Dose 81 MG; Start 09/03/16 at 10:30; Status Future Hold Docusate Sodium (Colace) 200 mg QHS PO Last administered on 09/09/16 21:43; Admin Dose 200 MG; Start 09/03/16 at 21:00 Zinc Sulfate (Zinc Sulfate) 220 mg DAILY PO Last administered on 09/10/16 08: 31; Admin Dose 220 MG; Start 09/03/16 at 10:30 Multivitamins Therapeutic (Theragran) 1 tab DAILY PO Last administered on 08:31; Admin Dose 1 TAB; Start 09/03/16 at 10:30 Miscellaneous Information 1 ea NOTE XX Last administered on 09/05/16 08:52; Admin Dose 1 EA; Start 09/03/16 at 11:00 Glucose (Glutose) 15 gm Q15M PRN PO DECREASED GLUCOSE; Start 09/03/16 at 11:00 Glucose (Glutose) 22.5 gm Q15M PRN PO DECREASED GLUCOSE; Start 09/03/16 at 11:00 Dextrose (D50w Syringe) 25 ml Q15M PRN IV DECREASED GLUCOSE Last administered on 09/08/16 09:03; Admin Dose 25 ML; Start 09/03/16 at 11:00 Dextrose (D50w Syringe) 50 ml Q15M PRN IV DECREASED GLUCOSE Last administered on 09/09/16 14:48; Admin Dose 50 ML; Start 09/03/16 at 11:00 Glucagon (Glucagen) 1 mg Q15M PRN IM DECREASED GLUCOSE; Start 09/03/16 at 11:00 Glucose (Glutose) 15 gm Q15M PRN BUCCAL DECREASED GLUCOSE; Start 09/03/16 at 11: 00 Mupirocin (Bactroban) 1 applic BID TOP Last administered on 09/10/16 08:32; Admin Dose 1 APPLIC; Start 09/03/16 at 21:00 Pantoprazole (Protonix Tab) 40 mg DAILY@06 PO Last administered on 09/10/16 06 :15; Admin Dose 40 MG; Start 09/05/16 at 06:00 Hydralazine HCl (Apresoline) 10 mg Q8 PO Last administered on 09/10/16 06:16; Admin Dose 10 MG; Start 09/04/16 at 22:00 Furosemide (Lasix) 20 mg DAILY IV Last administered on 09/10/16 08:31; Admin Dose 20 MG; Start 09/05/16 at 09:01 Carvedilol (Coreg) 1.5625 mg BID PO Last administered on 09/10/16 08:32; Admin Dose 1.5625 MG; Start 09/06/16 at 21:00 Heparin Sodium (Porcine) (Heparin (5000 Units/0.5 ml)) 5,000 unit BID SC Last administered on 09/08/16 08:47; Admin Dose 5,000 UNIT; Start 09/06/16 at 21:00; Status Future Hold Insulin Aspart (Novolog Insulin Pen) NOVOLOG *MILD* ALGORI... Q4 SC Last administered on 09/10/16 08:42; Admin Dose 1 UNIT; Start 09/09/16 at 13:00 THERESA RIVERA Sep 10, 2016 10:03
[2016-09-10] MEDS ORDERED: INSULIN ASPART [NOVOLOG] 3 ML PEN SC SCH (12:00)
[2016-09-10 12:04] LABS: HAAIG REFLEX REFLEX FILED
[2016-09-10] MEDS: Insulin NOVOLOG SS MILD Algorithm (SS with meals and bedtime) SC SCH ×3 (12:31→20:44)
[2016-09-10 13:00] LABS: HEPATITIS B CORE ANTIBODY NEGATIVE (NEGATIVE)
--- NOTE | 2016-09-10 13:30 | CONS ---
Date/Time of Note Date/Time of Note DATE: 09/10/16 TIME: 13:26 Assessment/Plan Assessment/Plan Chief Complaint/Hosp Course IMp: 1.CHF-systolic acute on chronic 2.Hypotension-Levo just turned off 3.REnal failurwe s/p HD 4.Cardiomyopathy with low EF 5.AICD 6.H/O cad s/p cabg 7.PAF 8.Coagulopathy-ongoing 9. Resp failure-improved s/p extubation 10.[id number] is without cardiac contraindication to proceeding permacath placement at this time but high risk due to severely depressed EF/cad-now post- op s/p placement Recc: -Tele -Continue abx's and f/u cx data -HD for volume removal -Continue digoxin QOD -Resume apixaban as able -Continue to follow BP closely on low dose hydralazine afterload reduction and low dose coreg. Problems: Consultation Date/Type/Reason Admit Date/Time Aug 27, 2016 at 21:25 Initial Consult Date 08/28/2016 Type of Consultation: Cardiology Reason for Consultation CHF Referring Provider: BOLA SOLO Exam/Review of Systems Vital Signs Vitals Vital Signs Date Time Temp Pulse Resp B/P Pulse Ox O2 Delivery O2 Flow Rate FiO2 09/10/16 12:09 60 09/10/16 12:03 97.2 18 108/56 100 09/09/16 22:50 Nasal Cannula 2.0 Intake and Output 09/09/16 09/09/16 09/10/16 15:00 23:00 07:00 Intake Total 200 ml 580 ml 120 ml Output Total 9 ml 2000 ml Balance 191 ml -1420 ml 120 ml Exam Review of Systems: CONSTITUTIONAL: No fevers, chills. PULMONARY: No sob CARDIOVASCULAR: No chest pain/palpitations GASTROINTESTINAL: No nausea/vomiting. GENITOURINARY: No hematuria/dysuria. MUSCULOSKELETAL: No myagias/arthalgias. PSYCHIATRIC: The patient denies depression. NEUROLOGIC: No weakness Constitutional: alert Psych: no complaints Head: normocephalic ENMT: mucosa pink and moist Neck: jvd, supple Respiratory: diminished breath sounds (at bases/B) Cardiovascular: regular rate and rhythm Gastrointestinal: non-tender, soft Musculoskeletal: muscle tone (normal) Extremities: edema (none) Neurological: other (No focal deficits) Results Result Diagram: 09/10/16 0652 09/10/16 0625 Results 24 hrs Laboratory Tests Test 09/09/16 14:40 09/09/16 15:00 09/09/16 17:49 09/09/16 21:42 Bedside Glucose 37 *L 212 107 128 Test 09/10/16 01:50 09/10/16 04:30 09/10/16 06:25 09/10/16 06:52 Bedside Glucose 116 109 Sodium Level 132 L Potassium Level 4.2 Chloride Level 96 L Carbon Dioxide Level 21 Anion Gap 19 H Blood Urea Nitrogen 38 #H Creatinine 1.77 H Glucose Level 138 # Calcium Level 9.0 Hepatitis B Surface Antigen NEGATIVE Hepatitis B Core Total Antibody NEGATIVE Hepatitis C Antibody NEGATIVE White Blood Count 8.7 # Red Blood Count 3.41 L Hemoglobin 9.1 L Hematocrit 30.3 L Mean Corpuscular Volume 88.9 Mean Corpuscular Hemoglobin 26.7 L Mean Corpuscular Hemoglobin Concent 30.0 L Red Cell Distribution Width 24.6 H Platelet Count 259 Mean Platelet Volume 10.5 H Neutrophils % 83.8 H Lymphocytes % 8.6 L Monocytes % 6.8 Eosinophils % 0.0 Basophils % 0.1 Nucleated Red Blood Cells % 2.2 H Neutrophils # 7.3 Lymphocytes # 0.8 Monocytes # 0.6 Eosinophils # 0.0 Basophils # 0.0 Nucleated Red Blood Cells # 0.2 H Test 09/10/16 08:33 09/10/16 11:51 Bedside Glucose 147 197 Medications Medications Current Medications Acetaminophen (Tylenol Tab) 650 mg Q6H PRN PO PAIN AND OR ELEVATED TEMP Last administered on 09/10/16 08:31; Admin Dose 650 MG; Start 08/27/16 at 23:00 Insulin Glargine (Lantus) 10 unit QAM SC Last administered on 09/10/16 08:43; Admin Dose 10 UNIT; Start 08/28/16 at 09:00 Ondansetron HCl (Zofran Inj) 4 mg Q6H PRN IV NAUSEA AND/OR VOMITING; Start at 23:00 Isosorbide Dinitrate (Isordil) 10 mg TID PO Last administered on 08/29/16 09:54 ; Admin Dose 10 MG; Start 08/28/16 at 09:00; Status Future Hold Sucralfate (Carafate) 1 gm QID PO Last administered on 09/10/16 12:24; Admin Dose 1 GM; Start 08/28/16 at 09:00 Morphine Sulfate (morphine) 2 mg Q2H PRN IV PAIN Last administered on 09/01/16 10:22; Admin Dose 2 MG; Start 09/01/16 at 01:30 Digoxin (Digoxin) 0.125 mg Q2D@13 PO Last administered on 09/07/16 14:30; Admin Dose 0.125 MG; Start 09/03/16 at 13:00 Ascorbic Acid (Vitamin C) 500 mg DAILY PO Last administered on 09/10/16 08:31 ; Admin Dose 500 MG; Start 09/03/16 at 10:30 Aspirin (Aspirin) 81 mg DAILY PO Last administered on 09/08/16 08:32; Admin Dose 81 MG; Start 09/03/16 at 10:30; Status Future Hold Docusate Sodium (Colace) 200 mg QHS PO Last administered on 09/09/16 21:43; Admin Dose 200 MG; Start 09/03/16 at 21:00 Zinc Sulfate (Zinc Sulfate) 220 mg DAILY PO Last administered on 09/10/16 08: 31; Admin Dose 220 MG; Start 09/03/16 at 10:30 Multivitamins Therapeutic (Theragran) 1 tab DAILY PO Last administered on 08:31; Admin Dose 1 TAB; Start 09/03/16 at 10:30 Miscellaneous Information 1 ea NOTE XX Last administered on 09/05/16 08:52; Admin Dose 1 EA; Start 09/03/16 at 11:00 Glucose (Glutose) 15 gm Q15M PRN PO DECREASED GLUCOSE; Start 09/03/16 at 11:00 Glucose (Glutose) 22.5 gm Q15M PRN PO DECREASED GLUCOSE; Start 09/03/16 at 11:00 Dextrose (D50w Syringe) 25 ml Q15M PRN IV DECREASED GLUCOSE Last administered on 09/08/16 09:03; Admin Dose 25 ML; Start 09/03/16 at 11:00 Dextrose (D50w Syringe) 50 ml Q15M PRN IV DECREASED GLUCOSE Last administered on 09/09/16 14:48; Admin Dose 50 ML; Start 09/03/16 at 11:00 Glucagon (Glucagen) 1 mg Q15M PRN IM DECREASED GLUCOSE; Start 09/03/16 at 11:00 Glucose (Glutose) 15 gm Q15M PRN BUCCAL DECREASED GLUCOSE; Start 09/03/16 at 11: 00 Mupirocin (Bactroban) 1 applic BID TOP Last administered on 09/10/16 08:32; Admin Dose 1 APPLIC; Start 09/03/16 at 21:00 Pantoprazole (Protonix Tab) 40 mg DAILY@06 PO Last administered on 09/10/16 06 :15; Admin Dose 40 MG; Start 09/05/16 at 06:00 Hydralazine HCl (Apresoline) 10 mg Q8 PO Last administered on 09/10/16 06:16; Admin Dose 10 MG; Start 09/04/16 at 22:00 Furosemide (Lasix) 20 mg DAILY IV Last administered on 09/10/16 08:31; Admin Dose 20 MG; Start 09/05/16 at 09:01 Carvedilol (Coreg) 1.5625 mg BID PO Last administered on 09/10/16 08:32; Admin Dose 1.5625 MG; Start 09/06/16 at 21:00 Heparin Sodium (Porcine) (Heparin (5000 Units/0.5 ml)) 5,000 unit BID SC Last administered on 09/08/16 08:47; Admin Dose 5,000 UNIT; Start 09/06/16 at 21:00; Status Future Hold POLI SAN Sep 10, 2016 13:30
[2016-09-10] MEDS ORDERED: Insulin NOVOLOG SS MILD Algorithm (SS with meals and bedtime) SC SCH (17:25)
[2016-09-10] MEDS: DOCUSATE SODIUM 100 MG CAP PO SCH (20:44)
[2016-09-11] VITALS (17 sets, daily range): BP systolic 89–108; BP diastolic 37–55; PULSE 58–63; RESP 18–20
--- NOTE | 2016-09-11 00:07 | PN ---
Date/Time of Note Date/Time of Note DATE: 09/10/16 TIME: 22:05 Assessment/Plan Lines/Catheters IV Catheter Type (from [facility]): Saline [facility] in Place (from [facility]): No Assessment/Plan Chief Complaint/Hosp Course 1. Acute renal failure in need of prolonged dialysis s/p right IJ Permacath -HD 2. Acute on chronic congestive heart failure with cardiomyopathy and cardiomegaly and ejection fraction of 25%. Continue cardiac optimization and judicious fluid management. 3. Anemia without evidence of acute blood loss. Continue monitoring. 4. Hypoalbuminemia. Will benefit from nutritional optimization. 5. Recent urinary tract infection and pneumonia with sepsis and shock, status post antibiotics and judicious fluid management. Improving. 6. Diabetes mellitus type 2. Continue nutrition and medication optimization. 7. Paroxysmal atrial fibrillation. Continue medical and cardiac optimization. Patient is anticoagulated. 8. Recent acute respiratory failure secondary to multiple issues. Successfully extubated on 09/02/2016. Thank you Late entry 09/10 Problems: Subjective 24 Hr Interval Summary s/p Permacath 09/09. No f/c. No cough. No sz. No rash. No vomiting or nausea. No abdominal pain. No bloating. High surgical risk per team and family understands that. Exam/Review of Systems Vital Signs Vitals Vital Signs Date Time Temp Pulse Resp B/P Pulse Ox O2 Delivery O2 Flow Rate FiO2 09/10/16 23:50 97.6 60 20 101/54 99 09/09/16 22:50 Nasal Cannula 2.0 Intake and Output 09/10/16 09/10/16 09/11/16 14:59 22:59 06:59 Intake Total 800 ml Balance 800 ml Exam Free Text/Dictation GENERAL: No acute distress, responsive. HEENT: Pupils equal, reactive. No scleral icterus. Mucous membranes are moist. NECK: Minimal JVD. Right IJ Permacath. Supple. PULMONARY: Normal respiratory effort. No wheezing. CARDIAC: S1, S2 present. ABDOMEN: Soft, nontender. EXTREMITIES: No edema. VASCULAR: Cap refill less than 2 seconds. NEUROLOGIC: Alert, oriented, moves all 4 extremities grossly. SKIN: No rashes, no jaundice; however some decubitus stage II ulcerations. LYMPHATIC: No inguinal or cervical lymphadenopathy. Results Result Diagram: 09/10/16 0652 09/10/16 0625 GUILLERMO PRESSLEY MD Sep 11, 2016 00:07
[2016-09-11] MEDS: PANTOPRAZOLE (EC) 40 MG TAB PO SCH (06:32)
[2016-09-11 07:06] LABS: ADD SCAN DIFF NO
[2016-09-11 07:12] LABS: POTASSIUM 3.8 mmol/L (3.5-5.1)
[2016-09-11 07:14] LABS: ABNORMAL IP MESSAGE 1; BASOPHILS % 0.1 % (0.0-2.0); EOSINOPHILS % 0.4 % (0.0-7.0); HEMOGLOBIN 8.5 g/dl (14.0-18.0); LYMPHOCYTES # 0.9 10^3/ul (0.8-2.9); LYMPHOCYTES % 11.6 % (15.0-51.0); MEAN CORPUSCULAR HEMOGLOBIN 26.6 pg (29.0-33.0); MEAN CORPUSCULAR HGB CONC 30.4 g/dl (32.0-37.0); MEAN CORPUSCULAR VOLUME 87.5 fl (82.0-101.0); MEAN PLATELET VOLUME 10.7 fl (7.4-10.4); MONOCYTE # 0.5 10^3/ul (0.3-0.9); MONOCYTES % 6.9 % (0.0-11.0); NEUTROPHIL # 6.1 10^3/ul (1.6-7.5); NEUTROPHILS % 80.6 % (39.0-77.0); NUCLEATED RED BLOOD CELLS # 0.3 10^3/ul (0.0-0.0); NUCLEATED RED BLOOD CELLS% 3.7 /100WBC (0.0-0.0); PLATELET COUNT 249 10^3/UL (140-415); RED CELL DISTRIBUTION WIDTH 24.2 % (11.5-14.5); WHITE BLOOD COUNT 7.6 10^3/ul (4.8-10.8)
[2016-09-11 07:15] LABS: CREATININE 2.27 mg/dl (0.61-1.24)
[2016-09-11 07:16] LABS: CALCIUM 8.3 mg/dl (8.4-10.2)
[2016-09-11] MEDS: Insulin NOVOLOG SS MILD Algorithm (SS with meals and bedtime) SC SCH ×4 (07:25→21:00)
[2016-09-11] MEDS: FUROSEMIDE 20 MG INJ IV SCH (09:00)
[2016-09-11] MEDS: ASCORBIC ACID 500 MG TAB PO SCH (09:07)
[2016-09-11] MEDS: SUCRALFATE 1 GM TAB PO SCH ×4 (09:07→21:40)
[2016-09-11] MEDS: ZINC SULFATE 220 MG CAP PO SCH (09:07)
[2016-09-11] MEDS: MULTIVITAMINS THERAPEUTIC TAB PO SCH (09:07)
[2016-09-11] MEDS: MUPIROCIN 2% 22 GM OINT TOP SCH ×2 (09:09→21:00)
[2016-09-11] MEDS: INSULIN GLARGINE [LANtus] 3 ML PEN SC SCH (09:15)
--- NOTE | 2016-09-11 09:44 | PDOCDIS ---
Discharge Instructions CONDITION Patient Condition: Stable HOME CARE INSTRUCTIONS: Special Diet: pureed ACTIVITY: Activity Restrictions: Slowly Increase Activity FOLLOW UP/APPOINTMENTS Appointments Please take your medications as prescribed, and see your doctor in the clinic in 1-2 weeks. THERESA RIVERA Sep 11, 2016 09:44
[2016-09-11] MEDS ORDERED: CARV3.1260 PO (09:46)
[2016-09-11] MEDS ORDERED: HYDR-3670 PO (09:46)
[2016-09-11] MEDS ORDERED: DIGO125T PO (09:46)
--- NOTE | 2016-09-11 10:52 | DS ---
DATE OF ADMISSION: 08/27/2016 DATE OF DISCHARGE: 09/11/2016 HOSPITAL COURSE: An 81-year-old male originally admitted on 08/28/2016 and being discharged home on 09/11/2016. The patient initially came in from a rehab facility with shortness of breath. He was diagnosed with sepsis secondary to pneumonia and UTI. He was admitted and seen by multiple speciali sts during this hospital stay including pulmonary team, cardiology team, renal team and general surg johnna team. The patient was found with CHF as well. His echocardiogram showed mild concentric left v entricular hypertrophy, moderate left ventricular systolic dysfunction, ejection fraction 40%. Ther e was some mild right ventricular hypokinesis of the mid and apical german, linear artifact in the ri ght ventricle, AICD was seen. Moderate pulmonary hypertension was noted. Trace tricuspid regurgita tion was noted. Mild to moderate aortic regurgitation was also noted. The patient also was treated for sepsis secondary to urinary tract infection. He completed antibiot ic treatment. His urine culture did show positive E. coli greater than 100,000 colony-forming units and he was successfully treated for that. He also was seen by renal team because his systolic hear t failure got better with dialysis, there were some signs of possible fluid overload and patient was started on dialysis as well. It was determined that he would need permanent dialysis so initially he had temporary catheter placement and received dialysis 3 times a week. Eventually he had PermCat h placement done by general surgery team as well. The patient tolerated that procedure well. He wa s also treated for diabetes type 2. His sugars were stable. He worked with physical therapy and was able to ambulate with assistance and tolerate a p.o. diet. He also was given Bactroban for MRSA of the nares. He had some adjustments made to his cardiac medi cations given his CHF and this was managed by the cardiology team as well. He was eventually able t o ambulate and tolerate a p.o. diet, although he does require home health PT and front-wheel walker, which we will set up with case management before discharge. He is also going to be set up for outp atient hemodialysis as he will need it every Wednesday, Wednesday and Wednesday, so that will be set up as well as an outpatient. Once those things are done, he will be discharged home today in improved co ndition. DISCHARGE MEDICATIONS: He will go home with: 1. Coreg 1.5625 mg p.o. b.i.d. 2. Digoxin 0.125 mg q.48 hours. 3. Hydralazine 10 mg p.o. q.8 hours. 4. Tylenol 650 p.o. q.4 hours p.r.n. 5. Albuterol nebulizers q.6 hours p.r.n. 6. Eliquis 2.5 mg b.i.d. 7. Ascorbic acid 500 mg daily. 8. Aspirin 81 mg daily. 9. Dulcolax 10 mg per rectal q.24 hours p.r.n. 10. Cranberry extract 425 mg b.i.d. 11. Colace 200 mg at bedtime. 12. Lasix 40 mg p.o. daily. 13. Robitussin-AC 10 mL p.o. q.4 hours p.r.n. 14. Imdur 10 mg t.i.d. 15. Milk of Magnesia 30 mL q.24 hours p.r.n. 16. Metformin 500 mg b.i.d. 17. Multivitamin 1 tab daily. 18. Nitroglycerin 0.4 mg sublingual every 5 minutes p.r.n. 19. Protonix 40 mg daily. 20. Fleet enema per rectal q.48 hours p.r.n. 21. Carafate 1 gram q.i.d. 22. Zinc sulfate 220 mg daily. FOLLOWUP: He will need to follow up for outpatient dialysis. Follow up with renal team. Follow up with cardiology team and primary care doctor team in the clinic in the next 1 to 2 weeks. FINAL DIAGNOSES: 1. Severe sepsis with lactic acidosis secondary to urinary tract infection, now improved with antib iotic treatment. 2. History of systolic heart failure, acute on chronic, improved with adjustments of cardiac medica tions. 3. History of cardiomyopathy with low ejection fraction in the 30 to 40% range. 4. History of AICD and CABG in the past for coronary artery disease 5. Methicillin-resistant Staphylococcus aureus of the nares, status post Bactroban treatment/ 6. Bronchiolitis with pneumonia, now improving with antibiotic treatment. 7. Acute respiratory failure secondary to congestive heart failure, successfully extubated later th is admission. 8. Chronic kidney disease requiring dialysis, now with PermCath placement, on permanent dialysis no w. 9. Type 2 diabetes. 10. Essential hypertension. 11. Lactic acidosis, resolved. 12. History of atrial fibrillation, on Eliquis anticoagulation. Time spent discharging the patient 55 minutes. Dictated By: THERESA MICHEL Conf#: [id number] DID#: [id number]
[2016-09-11] MEDS: APIXABAN 5 MG TABLET PO SCH ×2 (11:37→21:40)
--- NOTE | 2016-09-11 13:21 | CONS ---
Date/Time of Note Date/Time of Note DATE: 09/11/16 TIME: 13:18 Assessment/Plan Assessment/Plan Chief Complaint/Hosp Course IMp: 1.CHF-systolic acute on chronic 2.Hypotension-Levo just turned off 3.REnal failurwe s/p HD 4.Cardiomyopathy with low EF 5.AICD 6.H/O cad s/p cabg 7.PAF 8.Coagulopathy-ongoing 9. Resp failure-improved s/p extubation 10.Eal-pi-wwmyczu is without cardiac contraindication to proceeding permacath placement at this time but high risk due to severely depressed EF/cad-now post- op s/p placement Recc: -Tele -Continue abx's and f/u cx data -HD for volume removal -Continue digoxin QOD -Now resumed on apixaban -Continue to follow BP closely on low dose hydralazine afterload reduction and low dose coreg. -PT -? podiatry eval of feet Problems: Consultation Date/Type/Reason Admit Date/Time Aug 27, 2016 at 21:25 Initial Consult Date 08/28/2016 Type of Consultation: Cardiology Reason for Consultation CHF/cardiomyopathy Referring Provider: BOLA SOOL Exam/Review of Systems Vital Signs Vitals Vital Signs Date Time Temp Pulse Resp B/P Pulse Ox O2 Delivery O2 Flow Rate FiO2 09/11/16 12:03 60 09/11/16 11:10 98.1 20 103/47 100 09/09/16 22:50 Nasal Cannula 2.0 Intake and Output 09/10/16 09/10/16 09/11/16 15:00 23:00 07:00 Intake Total 880 ml 50 ml Balance 880 ml 50 ml Exam Review of Systems: CONSTITUTIONAL: No fevers, chills. PULMONARY: No sob CARDIOVASCULAR: No chest pain/palpitations GASTROINTESTINAL: No nausea/vomiting. GENITOURINARY: No hematuria/dysuria. MUSCULOSKELETAL: No myagias/arthalgias. PSYCHIATRIC: The patient denies depression. NEUROLOGIC: mild generalized weakness Constitutional: alert, oriented Psych: no complaints Head: normocephalic ENMT: mucosa pink and moist Neck: jvd (9 cm water), supple Respiratory: diminished breath sounds (at bases/B) Cardiovascular: regular rate and rhythm Gastrointestinal: non-tender, soft Musculoskeletal: muscle tone (normal), muscle weakness (generalized) Extremities: edema (TRace/B) Neurological: lethargic Results Result Diagram: 09/11/16 0640 09/11/16 0640 Results 24 hrs Laboratory Tests Test 09/10/16 17:08 09/10/16 20:44 09/11/16 06:40 09/11/16 07:31 Bedside Glucose 219 119 117 White Blood Count 7.6 Red Blood Count 3.20 L Hemoglobin 8.5 L Hematocrit 28.0 L Mean Corpuscular Volume 87.5 Mean Corpuscular Hemoglobin 26.6 L Mean Corpuscular Hemoglobin Concent 30.4 L Red Cell Distribution Width 24.2 H Platelet Count 249 Mean Platelet Volume 10.7 H Neutrophils % 80.6 H Lymphocytes % 11.6 L Monocytes % 6.9 Eosinophils % 0.4 Basophils % 0.1 Nucleated Red Blood Cells % 3.7 H Neutrophils # 6.1 Lymphocytes # 0.9 Monocytes # 0.5 Eosinophils # 0.0 Basophils # 0.0 Nucleated Red Blood Cells # 0.3 H Sodium Level 131 L Potassium Level 3.8 Chloride Level 95 L Carbon Dioxide Level 21 Anion Gap 19 H Blood Urea Nitrogen 52 H Creatinine 2.27 H Glucose Level 51 #L Calcium Level 8.3 L Test 09/11/16 09:12 09/11/16 11:35 Bedside Glucose 101 111 Medications Medications Current Medications Acetaminophen (Tylenol Tab) 650 mg Q6H PRN PO PAIN AND OR ELEVATED TEMP Last administered on 09/10/16 08:31; Admin Dose 650 MG; Start 08/27/16 at 23:00 Insulin Glargine (Lantus) 10 unit QAM SC Last administered on 09/11/16 09:15; Admin Dose 10 UNIT; Start 08/28/16 at 09:00 Ondansetron HCl (Zofran Inj) 4 mg Q6H PRN IV NAUSEA AND/OR VOMITING; Start at 23:00 Isosorbide Dinitrate (Isordil) 10 mg TID PO Last administered on 08/29/16 09:54 ; Admin Dose 10 MG; Start 08/28/16 at 09:00; Status Future Hold Sucralfate (Carafate) 1 gm QID PO Last administered on 09/11/16 09:07; Admin Dose 1 GM; Start 08/28/16 at 09:00 Morphine Sulfate (morphine) 2 mg Q2H PRN IV PAIN Last administered on 09/01/16 10:22; Admin Dose 2 MG; Start 09/01/16 at 01:30 Digoxin (Digoxin) 0.125 mg Q2D@13 PO Last administered on 09/07/16 14:30; Admin Dose 0.125 MG; Start 09/03/16 at 13:00 Ascorbic Acid (Vitamin C) 500 mg DAILY PO Last administered on 09/11/16 09:07 ; Admin Dose 500 MG; Start 09/03/16 at 10:30 Docusate Sodium (Colace) 200 mg QHS PO Last administered on 09/09/16 21:43; Admin Dose 200 MG; Start 09/03/16 at 21:00 Zinc Sulfate (Zinc Sulfate) 220 mg DAILY PO Last administered on 09/11/16 09: 07; Admin Dose 220 MG; Start 09/03/16 at 10:30 Multivitamins Therapeutic (Theragran) 1 tab DAILY PO Last administered on 09:07; Admin Dose 1 TAB; Start 09/03/16 at 10:30 Miscellaneous Information 1 ea NOTE XX Last administered on 09/05/16 08:52; Admin Dose 1 EA; Start 09/03/16 at 11:00 Glucose (Glutose) 15 gm Q15M PRN PO DECREASED GLUCOSE; Start 09/03/16 at 11:00 Glucose (Glutose) 22.5 gm Q15M PRN PO DECREASED GLUCOSE; Start 09/03/16 at 11:00 Dextrose (D50w Syringe) 25 ml Q15M PRN IV DECREASED GLUCOSE Last administered on 09/08/16 09:03; Admin Dose 25 ML; Start 09/03/16 at 11:00 Dextrose (D50w Syringe) 50 ml Q15M PRN IV DECREASED GLUCOSE Last administered on 09/09/16 14:48; Admin Dose 50 ML; Start 09/03/16 at 11:00 Glucagon (Glucagen) 1 mg Q15M PRN IM DECREASED GLUCOSE; Start 09/03/16 at 11:00 Glucose (Glutose) 15 gm Q15M PRN BUCCAL DECREASED GLUCOSE; Start 09/03/16 at 11: 00 Mupirocin (Bactroban) 1 applic BID TOP Last administered on 4/14/17at 09:09; Admin Dose 1 APPLIC; Start 09/03/16 at 21:00 Pantoprazole (Protonix Tab) 40 mg DAILY@06 PO Last administered on 09/11/16 06 :32; Admin Dose 40 MG; Start 09/05/16 at 06:00 Hydralazine HCl (Apresoline) 10 mg Q8 PO Last administered on 09/10/16 22:10; Admin Dose 10 MG; Start 09/04/16 at 22:00 Furosemide (Lasix) 20 mg DAILY IV Last administered on 09/10/16 08:31; Admin Dose 20 MG; Start 09/05/16 at 09:01 Carvedilol (Coreg) 1.5625 mg BID PO Last administered on 09/10/16 20:38; Admin Dose 1.5625 MG; Start 09/06/16 at 21:00 Apixaban (Eliquis) 2.5 mg BID PO Last administered on 09/11/16 11:37; Admin Dose 2.5 MG; Start 09/11/16 at 10:00 POLI SAN Sep 11, 2016 13:20
[2016-09-11] MEDS: DIGOXIN 0.125 MG TAB PO SCH (13:25)
--- NOTE | 2016-09-11 15:10 | CONS ---
Date/Time of Note Date/Time of Note DATE: 09/11/16 TIME: 15:09 Assessment/Plan Assessment/Plan Chief Complaint/Hosp Course SYSTOLIC HEART FAILURE better w hd JAZLYN ON CKD LOW EF ASHD DM HX CAD AICD PLACEMENT s/p anasarca PLAN hd mwf hd home soon Problems: Consultation Date/Type/Reason Admit Date/Time Aug 27, 2016 at 21:25 Initial Consult Date s/p permacath placement Type of Consultation: renal Referring Provider: BOLA SOLO 24 HR Interval Summary Constitutional: no complaints Exam/Review of Systems Vital Signs Vitals Vital Signs Date Time Temp Pulse Resp B/P Pulse Ox O2 Delivery O2 Flow Rate FiO2 09/11/16 12:03 60 09/11/16 11:10 98.1 20 103/47 100 09/09/16 22:50 Nasal Cannula 2.0 Intake and Output 09/10/16 09/10/16 09/11/16 15:00 23:00 07:00 Intake Total 880 ml 50 ml Balance 880 ml 50 ml Exam Neck: supple Respiratory: clear to auscultation Cardiovascular: regular rate and rhythm Gastrointestinal: bowel sounds (+), soft Musculoskeletal: nl extremities to inspection Results Result Diagram: 09/11/16 0640 09/11/16 0640 Results 24 hrs Laboratory Tests Test 09/10/16 17:08 09/10/16 20:44 09/11/16 06:40 09/11/16 07:31 Bedside Glucose 219 119 117 White Blood Count 7.6 Red Blood Count 3.20 L Hemoglobin 8.5 L Hematocrit 28.0 L Mean Corpuscular Volume 87.5 Mean Corpuscular Hemoglobin 26.6 L Mean Corpuscular Hemoglobin Concent 30.4 L Red Cell Distribution Width 24.2 H Platelet Count 249 Mean Platelet Volume 10.7 H Neutrophils % 80.6 H Lymphocytes % 11.6 L Monocytes % 6.9 Eosinophils % 0.4 Basophils % 0.1 Nucleated Red Blood Cells % 3.7 H Neutrophils # 6.1 Lymphocytes # 0.9 Monocytes # 0.5 Eosinophils # 0.0 Basophils # 0.0 Nucleated Red Blood Cells # 0.3 H Sodium Level 131 L Potassium Level 3.8 Chloride Level 95 L Carbon Dioxide Level 21 Anion Gap 19 H Blood Urea Nitrogen 52 H Creatinine 2.27 H Glucose Level 51 #L Calcium Level 8.3 L Test 09/11/16 09:12 09/11/16 11:35 Bedside Glucose 101 111 Medications Medications Current Medications Acetaminophen (Tylenol Tab) 650 mg Q6H PRN PO PAIN AND OR ELEVATED TEMP Last administered on 09/10/16 08:31; Admin Dose 650 MG; Start 08/27/16 at 23:00 Insulin Glargine (Lantus) 10 unit QAM SC Last administered on 09/11/16 09:15; Admin Dose 10 UNIT; Start 08/28/16 at 09:00 Ondansetron HCl (Zofran Inj) 4 mg Q6H PRN IV NAUSEA AND/OR VOMITING; Start at 23:00 Isosorbide Dinitrate (Isordil) 10 mg TID PO Last administered on 08/29/16 09:54 ; Admin Dose 10 MG; Start 08/28/16 at 09:00; Status Future Hold Sucralfate (Carafate) 1 gm QID PO Last administered on 09/11/16 13:25; Admin Dose 1 GM; Start 08/28/16 at 09:00 Morphine Sulfate (morphine) 2 mg Q2H PRN IV PAIN Last administered on 09/01/16 10:22; Admin Dose 2 MG; Start 09/01/16 at 01:30 Digoxin (Digoxin) 0.125 mg Q2D@13 PO Last administered on 09/11/16 13:25; Admin Dose 0.125 MG; Start 09/03/16 at 13:00 Ascorbic Acid (Vitamin C) 500 mg DAILY PO Last administered on 09/11/16 09:07 ; Admin Dose 500 MG; Start 09/03/16 at 10:30 Docusate Sodium (Colace) 200 mg QHS PO Last administered on 09/09/16 21:43; Admin Dose 200 MG; Start 09/03/16 at 21:00 Zinc Sulfate (Zinc Sulfate) 220 mg DAILY PO Last administered on 09/11/16 09: 07; Admin Dose 220 MG; Start 09/03/16 at 10:30 Multivitamins Therapeutic (Theragran) 1 tab DAILY PO Last administered on 09:07; Admin Dose 1 TAB; Start 09/03/16 at 10:30 Miscellaneous Information 1 ea NOTE XX Last administered on 09/05/16 08:52; Admin Dose 1 EA; Start 09/03/16 at 11:00 Glucose (Glutose) 15 gm Q15M PRN PO DECREASED GLUCOSE; Start 09/03/16 at 11:00 Glucose (Glutose) 22.5 gm Q15M PRN PO DECREASED GLUCOSE; Start 09/03/16 at 11:00 Dextrose (D50w Syringe) 25 ml Q15M PRN IV DECREASED GLUCOSE Last administered on 09/08/16 09:03; Admin Dose 25 ML; Start 09/03/16 at 11:00 Dextrose (D50w Syringe) 50 ml Q15M PRN IV DECREASED GLUCOSE Last administered on 09/09/16 14:48; Admin Dose 50 ML; Start 09/03/16 at 11:00 Glucagon (Glucagen) 1 mg Q15M PRN IM DECREASED GLUCOSE; Start 09/03/16 at 11:00 Glucose (Glutose) 15 gm Q15M PRN BUCCAL DECREASED GLUCOSE; Start 09/03/16 at 11: 00 Mupirocin (Bactroban) 1 applic BID TOP Last administered on 09/11/16 09:09; Admin Dose 1 APPLIC; Start 09/03/16 at 21:00 Pantoprazole (Protonix Tab) 40 mg DAILY@06 PO Last administered on 09/11/16 06 :32; Admin Dose 40 MG; Start 09/05/16 at 06:00 Hydralazine HCl (Apresoline) 10 mg Q8 PO Last administered on 09/11/16 13:25; Admin Dose 10 MG; Start 09/04/16 at 22:00 Furosemide (Lasix) 20 mg DAILY IV Last administered on 09/10/16 08:31; Admin Dose 20 MG; Start 09/05/16 at 09:01 Carvedilol (Coreg) 1.5625 mg BID PO Last administered on 09/10/16 20:38; Admin Dose 1.5625 MG; Start 09/06/16 at 21:00 Apixaban (Eliquis) 2.5 mg BID PO Last administered on 09/11/16 11:37; Admin Dose 2.5 MG; Start 09/11/16 at 10:00 YANIRA HART MD Sep 11, 2016 15:10
[2016-09-11] MEDS: DOCUSATE SODIUM 100 MG CAP PO SCH (21:39)
--- NOTE | 2016-09-11 23:01 | PN ---
Date/Time of Note Date/Time of Note DATE: 09/11/16 TIME: 23:00 Assessment/Plan Lines/Catheters IV Catheter Type (from [facility]): Saline Lock Gan in Place (from [facility]): No Assessment/Plan Chief Complaint/Hosp Course 1. Acute renal failure s/p right IJ Permacath 09/09 -HD 2. Acute on chronic congestive heart failure with cardiomyopathy and cardiomegaly and ejection fraction of 25%. Continue cardiac optimization and judicious fluid management. 3. Anemia without evidence of acute blood loss. Continue monitoring. 4. Hypoalbuminemia. Will benefit from nutritional optimization. 5. Recent urinary tract infection and pneumonia with sepsis and shock, status post antibiotics and judicious fluid management. Improving. 6. Diabetes mellitus type 2. Continue nutrition and medication optimization. 7. Paroxysmal atrial fibrillation. Continue medical and cardiac optimization. Patient is anticoagulated. 8. Recent acute respiratory failure secondary to multiple issues. Successfully extubated on 09/02/2016. Thank you Problems: Subjective 24 Hr Interval Summary s/p Permacath 09/09. No f/c. No cough. No sz. No rash. No vomiting or nausea. No abdominal pain. No bloating. Exam/Review of Systems Vital Signs Vitals Vital Signs Date Time Temp Pulse Resp B/P Pulse Ox O2 Delivery O2 Flow Rate FiO2 09/11/16 20:13 60 09/11/16 19:04 98.3 18 106/54 100 09/09/16 22:50 Nasal Cannula 2.0 Intake and Output 09/10/16 09/10/16 09/11/16 15:00 23:00 07:00 Intake Total 880 ml 50 ml Balance 880 ml 50 ml Exam Free Text/Dictation GENERAL: No acute distress, responsive. HEENT: Pupils equal, reactive. No scleral icterus. Mucous membranes are moist. NECK: Minimal JVD. Right IJ Permacath. Supple. PULMONARY: Normal respiratory effort. No wheezing. CARDIAC: S1, S2 present. ABDOMEN: Soft, nontender. EXTREMITIES: No edema. VASCULAR: Cap refill less than 2 seconds. NEUROLOGIC: Alert, oriented, moves all 4 extremities grossly. SKIN: No rashes, no jaundice; however some decubitus stage II ulcerations. LYMPHATIC: No inguinal or cervical lymphadenopathy. Results Result Diagram: 09/11/1640 09/11/16639 GUILLERMO PRESSLEY MD Sep 11, 2016 23:01
[2016-09-12] VITALS (9 sets, daily range): BP systolic 110–113; BP diastolic 49–58; PULSE 60–64; RESP 20
[2016-09-12] MEDS ORDERED: ZOLPIDEM 5 MG TAB PO PRN
[2016-09-12] MEDS: ACETAMINOPHEN 325 MG TAB PO PRN (00:06)
[2016-09-12 06:15] LABS: ADD SCAN DIFF NO
[2016-09-12] MEDS: PANTOPRAZOLE (EC) 40 MG TAB PO SCH (06:16)
[2016-09-12 06:23] LABS: ABNORMAL IP MESSAGE 1; BASOPHILS % 0.1 % (0.0-2.0); EOSINOPHILS % 0.5 % (0.0-7.0); HEMATOCRIT 30.5 % (42.0-52.0); HEMOGLOBIN 9.3 g/dl (14.0-18.0); LYMPHOCYTES # 0.8 10^3/ul (0.8-2.9); LYMPHOCYTES % 11.2 % (15.0-51.0); MEAN CORPUSCULAR HEMOGLOBIN 26.2 pg (29.0-33.0); MEAN CORPUSCULAR HGB CONC 30.5 g/dl (32.0-37.0); MEAN CORPUSCULAR VOLUME 85.9 fl (82.0-101.0); MEAN PLATELET VOLUME 10.9 fl (7.4-10.4); MONOCYTE # 0.5 10^3/ul (0.3-0.9); MONOCYTES % 6.7 % (0.0-11.0); NEUTROPHIL # 5.9 10^3/ul (1.6-7.5); NEUTROPHILS % 81.1 % (39.0-77.0); NUCLEATED RED BLOOD CELLS # 0.4 10^3/ul (0.0-0.0); NUCLEATED RED BLOOD CELLS% 4.9 /100WBC (0.0-0.0); PLATELET COUNT 231 10^3/UL (140-415); RED BLOOD COUNT 3.55 10^6/ul (4.70-6.10); RED CELL DISTRIBUTION WIDTH 24.1 % (11.5-14.5); WHITE BLOOD COUNT 7.3 10^3/ul (4.8-10.8)
[2016-09-12 06:48] LABS: POTASSIUM 4.3 mmol/L (3.5-5.1)
[2016-09-12 06:52] LABS: CALCIUM 8.8 mg/dl (8.4-10.2)
[2016-09-12] MEDS: Insulin NOVOLOG SS MILD Algorithm (SS with meals and bedtime) SC SCH ×4 (07:25→21:00)
[2016-09-12] MEDS: ASCORBIC ACID 500 MG TAB PO SCH (08:22)
[2016-09-12] MEDS: ZINC SULFATE 220 MG CAP PO SCH (08:22)
[2016-09-12] MEDS: MULTIVITAMINS THERAPEUTIC TAB PO SCH (08:22)
[2016-09-12] MEDS: SUCRALFATE 1 GM TAB PO SCH ×4 (08:22→21:44)
[2016-09-12] MEDS: APIXABAN 5 MG TABLET PO SCH ×2 (08:22→21:44)
[2016-09-12] MEDS: FUROSEMIDE 20 MG INJ IV SCH (08:23)
[2016-09-12] MEDS: INSULIN GLARGINE [LANtus] 3 ML PEN SC SCH (08:27)
[2016-09-12] MEDS: MUPIROCIN 2% 22 GM OINT TOP SCH ×2 (08:28→21:45)
--- NOTE | 2016-09-12 11:25 | PN ---
Date/Time of Note Date/Time of Note DATE: 09/12/16 TIME: 11:20 Assessment/Plan VTE Prophylaxis VTE Prophylaxis Intervention: heparin Lines/Catheters IV [facility]from [facility] Saline Lock Urinary Cath still in place: No Assessment/Plan Chief Complaint/Hosp Course Assessment/Plan: 81-year-old male with the following medical problems: 1. Endstage CHF - improved - f/u CV rec's, continue PO Hydralazine and very low dose BB, monitor 2. s/p Severe sepsis with lactic acidosis 2/2 UTI - improved now - s/p abx, monitor for now 3. Chronic kidney disease, requiring dialysis more for volume removal 2/2 # 1. UO appears minimal. - Patient needs continued HD and diuretic therapy for continued volume removal - Has now received Permacath placement - f/u renal rec's 4. Acute respiratory failure 2/2 CHF successfully extubated 09/02/16 - monitor 5. Diabetes mellitus type 2 - Titrate insulin therapy as indicated 6. Paroxysmal atrial fibrillation - rate controlled - monitor, f/u CV rec's 8. Coronary artery disease with Severe isch CM s/p CABG and AICD - monitor, f/u CV rec's 9 Chronic hypochromic anemia secondary to end-stage renal disease. - monitor H/H 10. Chronic liver cirrhosis with coagulopathy with Mild hyperbilirubinemia with transaminitis 11 Methicillin-resistant Staphylococcus aureus, nares. s/p 7 days of bactroban 12. Severe debility - monitor. 13. Dispo: needs outpt HD set up. pt also needs bedside commode (pt confined at night/unsafe to walk w/ walker to [facility]) - Pt needs wheelchair b/c unstable gait as well, and b/c unsafe to walk with walker PROPHYLAXIS: heparin/ PPI as well Problems: Subjective 24 Hr Interval Summary Free Text/Dictation Discharge held yesterday b/c outpt HD could not be set up yet. No acute events overnight. Exam/Review of Systems Vital Signs Vitals Vital Signs Date Time Temp Pulse Resp B/P Pulse Ox O2 Delivery O2 Flow Rate FiO2 09/12/16 10:42 98.2 60 20 113/58 98 09/12/16 10:39 Nasal Cannula 2.0 Intake and Output 09/11/16 09/11/16 09/12/16 14:59 22:59 06:59 Intake Total 350 ml 800 ml Output Total 2300 ml Balance -1950 ml 800 ml Exam Constitutional: alert, oriented, cachectic Head: atraumatic, normocephalic Eyes: PERRL ENMT: mucosa pink and moist Neck: supple Respiratory: some crackles/rales, diminished breath sounds Cardiovascular: irregular rhythm, murmurs/extra sounds Gastrointestinal: bowel sounds, non-tender, soft Extremities: No edema Neurological: lethargic, No focal weakness Results Result Diagram: 09/12/16 0550 09/12/16 0550 Results 24 hrs Laboratory Tests Test 09/11/16 11:35 09/11/16 17:21 09/11/16 21:38 09/12/16 05:50 Bedside Glucose 111 145 150 White Blood Count 7.3 Red Blood Count 3.55 L Hemoglobin 9.3 L Hematocrit 30.5 L Mean Corpuscular Volume 85.9 Mean Corpuscular Hemoglobin 26.2 L Mean Corpuscular Hemoglobin Concent 30.5 L Red Cell Distribution Width 24.1 H Platelet Count 231 Mean Platelet Volume 10.9 H Neutrophils % 81.1 H Lymphocytes % 11.2 L Monocytes % 6.7 Eosinophils % 0.5 Basophils % 0.1 Nucleated Red Blood Cells % 4.9 H Neutrophils # 5.9 Lymphocytes # 0.8 Monocytes # 0.5 Eosinophils # 0.0 Basophils # 0.0 Nucleated Red Blood Cells # 0.4 H Sodium Level 130 L Potassium Level 4.3 Chloride Level 92 L Carbon Dioxide Level 22 Anion Gap 20 H Blood Urea Nitrogen 40 #H Creatinine 2.00 H Glucose Level 49 *L Calcium Level 8.8 Test 09/12/16 07:22 09/12/16 07:44 09/12/16 08:17 Bedside Glucose 56 L 62 L 104 Medications Medications Current Medications Acetaminophen (Tylenol Tab) 650 mg Q6H PRN PO PAIN AND OR ELEVATED TEMP Last administered on 09/12/16 00:06; Admin Dose 650 MG; Start 08/27/16 at 23:00 Insulin Glargine (Lantus) 10 unit QAM SC Last administered on 09/12/16 08:27; Admin Dose 10 UNIT; Start 08/28/16 at 09:00 Ondansetron HCl (Zofran Inj) 4 mg Q6H PRN IV NAUSEA AND/OR VOMITING; Start at 23:00 Isosorbide Dinitrate (Isordil) 10 mg TID PO Last administered on 08/29/16 09:54 ; Admin Dose 10 MG; Start 08/28/16 at 09:00; Status Future Hold Sucralfate (Carafate) 1 gm QID PO Last administered on 09/12/16 08:22; Admin Dose 1 GM; Start 08/28/16 at 09:00 Morphine Sulfate (morphine) 2 mg Q2H PRN IV PAIN Last administered on 09/01/16 10:22; Admin Dose 2 MG; Start 09/01/16 at 01:30 Digoxin (Digoxin) 0.125 mg Q2D@13 PO Last administered on 09/11/16 13:25; Admin Dose 0.125 MG; Start 09/03/16 at 13:00 Ascorbic Acid (Vitamin C) 500 mg DAILY PO Last administered on 09/12/16 08:22 ; Admin Dose 500 MG; Start 09/03/16 at 10:30 Docusate Sodium (Colace) 200 mg QHS PO Last administered on 09/11/16 21:39; Admin Dose 200 MG; Start 09/03/16 at 21:00 Zinc Sulfate (Zinc Sulfate) 220 mg DAILY PO Last administered on 09/12/16 08: 22; Admin Dose 220 MG; Start 09/03/16 at 10:30 Multivitamins Therapeutic (Theragran) 1 tab DAILY PO Last administered on 08:22; Admin Dose 1 TAB; Start 09/03/16 at 10:30 Miscellaneous Information 1 ea NOTE XX Last administered on 09/05/16 08:52; Admin Dose 1 EA; Start 09/03/16 at 11:00 Glucose (Glutose) 15 gm Q15M PRN PO DECREASED GLUCOSE; Start 09/03/16 at 11:00 Glucose (Glutose) 22.5 gm Q15M PRN PO DECREASED GLUCOSE; Start 09/03/16 at 11:00 Dextrose (D50w Syringe) 25 ml Q15M PRN IV DECREASED GLUCOSE Last administered on 09/08/16 09:03; Admin Dose 25 ML; Start 09/03/16 at 11:00 Dextrose (D50w Syringe) 50 ml Q15M PRN IV DECREASED GLUCOSE Last administered on 09/09/16 14:48; Admin Dose 50 ML; Start 09/03/16 at 11:00 Glucagon (Glucagen) 1 mg Q15M PRN IM DECREASED GLUCOSE; Start 09/03/16 at 11:00 Glucose (Glutose) 15 gm Q15M PRN BUCCAL DECREASED GLUCOSE; Start 09/03/16 at 11: 00 Mupirocin (Bactroban) 1 applic BID TOP Last administered on 09/12/16 08:28; Admin Dose 1 APPLIC; Start 09/03/16 at 21:00 Pantoprazole (Protonix Tab) 40 mg DAILY@06 PO Last administered on 09/12/16 06 :16; Admin Dose 40 MG; Start 09/05/16 at 06:00 Hydralazine HCl (Apresoline) 10 mg Q8 PO Last administered on 09/11/16 13:25; Admin Dose 10 MG; Start 09/04/16 at 22:00 Furosemide (Lasix) 20 mg DAILY IV Last administered on 09/12/16 08:23; Admin Dose 20 MG; Start 09/05/16 at 09:01 Carvedilol (Coreg) 1.5625 mg BID PO Last administered on 09/12/16 08:23; Admin Dose 1.5625 MG; Start 09/06/16 at 21:00 Apixaban (Eliquis) 2.5 mg BID PO Last administered on 09/12/16 08:22; Admin Dose 2.5 MG; Start 09/11/16 at 10:00 THERESA RIVERA Sep 12, 2016 11:25
--- NOTE | 2016-09-12 14:03 | CONS ---
Date/Time of Note Date/Time of Note DATE: 09/12/16 TIME: 13:58 Assessment/Plan Assessment/Plan Additional Assessment/Plan 1. Acute Congestive heart failure exacerbation 2. Ischemic Cardiomyopathy with decreased left ventricular ejection fraction. 3. Coronary artery disease status post coronary artery bypass grafting. 4. S/P automatic implantable cardioverter-defibrillator implant. 5. Paroxysmal atrial fibrillation. 6. Renal failure on HD 7. Anemia. 8. Encephalopathy. 9. Coagulopathy. 10. Urinary tract infection. 11. Pneumonia 12. Shock Liver V Paced Rhythm Hemodynamically stable Avoid Volume Overload Continue HD Continue Coreg Continue Digoxin Continue Eliquis Continue Antibiotics Replete Potassium Monitor on telemetry Consultation Date/Type/Reason Admit Date/Time Aug 27, 2016 at 21:25 Constitutional: no complaints Psychological: no complaints Past Surgical History Past Surgical Hx: coronary bypass surgery Social History Smoking Status: Never smoker Exam/Review of Systems Vital Signs Vitals Vital Signs Date Time Temp Pulse Resp B/P Pulse Ox O2 Delivery O2 Flow Rate FiO2 09/12/16 12:19 61 09/12/16 10:42 98.2 20 113/58 98 09/12/16 10:39 Nasal Cannula 2.0 Intake and Output 09/11/16 09/11/16 09/12/16 15:00 23:00 07:00 Intake Total 300 ml 800 ml Output Total 2300 ml Balance -2000 ml 800 ml Exam Constitutional: Awake alert Head: atraumatic, normocephalic Neck: non-tender, supple Respiratory: CTA Cardiovascular: regular rate and rhythm Gastrointestinal: nl liver, spleen, non-tender, soft Extremities: normal pulses Results Result Diagram: 09/12/16 0550 09/12/16 0550 Results 24 hrs Laboratory Tests Test 09/11/16 17:21 09/11/16 21:38 09/12/16 05:50 09/12/16 07:22 Bedside Glucose 145 150 56 L White Blood Count 7.3 Red Blood Count 3.55 L Hemoglobin 9.3 L Hematocrit 30.5 L Mean Corpuscular Volume 85.9 Mean Corpuscular Hemoglobin 26.2 L Mean Corpuscular Hemoglobin Concent 30.5 L Red Cell Distribution Width 24.1 H Platelet Count 231 Mean Platelet Volume 10.9 H Neutrophils % 81.1 H Lymphocytes % 11.2 L Monocytes % 6.7 Eosinophils % 0.5 Basophils % 0.1 Nucleated Red Blood Cells % 4.9 H Neutrophils # 5.9 Lymphocytes # 0.8 Monocytes # 0.5 Eosinophils # 0.0 Basophils # 0.0 Nucleated Red Blood Cells # 0.4 H Sodium Level 130 L Potassium Level 4.3 Chloride Level 92 L Carbon Dioxide Level 22 Anion Gap 20 H Blood Urea Nitrogen 40 #H Creatinine 2.00 H Glucose Level 49 *L Calcium Level 8.8 Test 09/12/16 07:44 09/12/16 08:17 09/12/16 11:24 Bedside Glucose 62 L 104 80 Medications Medications Current Medications Acetaminophen (Tylenol Tab) 650 mg Q6H PRN PO PAIN AND OR ELEVATED TEMP Last administered on 09/12/16 00:06; Admin Dose 650 MG; Start 08/27/16 at 23:00 Insulin Glargine (Lantus) 10 unit QAM SC Last administered on 09/12/16 08:27; Admin Dose 10 UNIT; Start 08/28/16 at 09:00 Ondansetron HCl (Zofran Inj) 4 mg Q6H PRN IV NAUSEA AND/OR VOMITING; Start at 23:00 Isosorbide Dinitrate (Isordil) 10 mg TID PO Last administered on 08/29/16 09:54 ; Admin Dose 10 MG; Start 08/28/16 at 09:00; Status Future Hold Sucralfate (Carafate) 1 gm QID PO Last administered on 09/12/16 13:16; Admin Dose 1 GM; Start 08/28/16 at 09:00 Morphine Sulfate (morphine) 2 mg Q2H PRN IV PAIN Last administered on 09/01/16 10:22; Admin Dose 2 MG; Start 09/01/16 at 01:30 Digoxin (Digoxin) 0.125 mg Q2D@13 PO Last administered on 09/11/16 13:25; Admin Dose 0.125 MG; Start 09/03/16 at 13:00 Ascorbic Acid (Vitamin C) 500 mg DAILY PO Last administered on 09/12/16 08:22 ; Admin Dose 500 MG; Start 09/03/16 at 10:30 Docusate Sodium (Colace) 200 mg QHS PO Last administered on 09/11/16 21:39; Admin Dose 200 MG; Start 09/03/16 at 21:00 Zinc Sulfate (Zinc Sulfate) 220 mg DAILY PO Last administered on 09/12/16 08: 22; Admin Dose 220 MG; Start 09/03/16 at 10:30 Multivitamins Therapeutic (Theragran) 1 tab DAILY PO Last administered on 08:22; Admin Dose 1 TAB; Start 09/03/16 at 10:30 Miscellaneous Information 1 ea NOTE XX Last administered on 09/05/16 08:52; Admin Dose 1 EA; Start 09/03/16 at 11:00 Glucose (Glutose) 15 gm Q15M PRN PO DECREASED GLUCOSE; Start 09/03/16 at 11:00 Glucose (Glutose) 22.5 gm Q15M PRN PO DECREASED GLUCOSE; Start 09/03/16 at 11:00 Dextrose (D50w Syringe) 25 ml Q15M PRN IV DECREASED GLUCOSE Last administered on 09/08/16 09:03; Admin Dose 25 ML; Start 09/03/16 at 11:00 Dextrose (D50w Syringe) 50 ml Q15M PRN IV DECREASED GLUCOSE Last administered on 09/09/16 14:48; Admin Dose 50 ML; Start 09/03/16 at 11:00 Glucagon (Glucagen) 1 mg Q15M PRN IM DECREASED GLUCOSE; Start 09/03/16 at 11:00 Glucose (Glutose) 15 gm Q15M PRN BUCCAL DECREASED GLUCOSE; Start 09/03/16 at 11: 00 Mupirocin (Bactroban) 1 applic BID TOP Last administered on 09/12/16 08:28; Admin Dose 1 APPLIC; Start 09/03/16 at 21:00 Pantoprazole (Protonix Tab) 40 mg DAILY@06 PO Last administered on 09/12/16 06 :16; Admin Dose 40 MG; Start 09/05/16 at 06:00 Hydralazine HCl (Apresoline) 10 mg Q8 PO Last administered on 09/12/16 13:17; Admin Dose 10 MG; Start 09/04/16 at 22:00 Furosemide (Lasix) 20 mg DAILY IV Last administered on 09/12/16 08:23; Admin Dose 20 MG; Start 09/05/16 at 09:01 Carvedilol (Coreg) 1.5625 mg BID PO Last administered on 09/12/16 08:23; Admin Dose 1.5625 MG; Start 09/06/16 at 21:00 Apixaban (Eliquis) 2.5 mg BID PO Last administered on 09/12/16 08:22; Admin Dose 2.5 MG; Start 09/11/16 at 10:00 CLARISSA ENRIQUE M.D. Sep 12, 2016 14:03
--- NOTE | 2016-09-12 17:00 | PN ---
Date/Time of Note Date/Time of Note DATE: 09/12/16 TIME: 16:59 Assessment/Plan Lines/Catheters IV Catheter Type (from Nrs): Saline Lock Gan in Place (from Nrs): No Assessment/Plan Chief Complaint/Hosp Course 1. Acute renal failure s/p right IJ Permacath 09/09 -HD 2. Acute on chronic congestive heart failure with cardiomyopathy and cardiomegaly and ejection fraction of 25%. Continue cardiac optimization and judicious fluid management. 3. Anemia without evidence of acute blood loss. Continue monitoring. 4. Hypoalbuminemia. Will benefit from nutritional optimization. 5. Recent urinary tract infection and pneumonia with sepsis and shock, status post antibiotics and judicious fluid management. Improving. 6. Diabetes mellitus type 2. Continue nutrition and medication optimization. 7. Paroxysmal atrial fibrillation. Continue medical and cardiac optimization. Patient is anticoagulated. 8. Recent acute respiratory failure secondary to multiple issues. Successfully extubated on 09/02/2016. Thank you Problems: Subjective 24 Hr Interval Summary No f/c. No cough. No sz. No rash. No vomiting or nausea. No abdominal pain. No bloating. Exam/Review of Systems Vital Signs Vitals Vital Signs Date Time Temp Pulse Resp B/P Pulse Ox O2 Delivery O2 Flow Rate FiO2 09/12/16 16:06 64 09/12/16 15:21 98.2 20 110/56 98 09/12/16 10:39 Nasal Cannula 2.0 Intake and Output 09/11/16 09/11/16 09/12/16 15:00 23:00 07:00 Intake Total 300 ml 800 ml Output Total 2300 ml Balance -2000 ml 800 ml Exam Free Text/Dictation GENERAL: No acute distress, responsive. HEENT: Pupils equal, reactive. No scleral icterus. Mucous membranes are moist. NECK: Minimal JVD. Right IJ Permacath. Supple. PULMONARY: Normal respiratory effort. No wheezing. CARDIAC: S1, S2 present. ABDOMEN: Soft, nontender. EXTREMITIES: No edema. VASCULAR: Cap refill less than 2 seconds. NEUROLOGIC: Alert, oriented, moves all 4 extremities grossly. SKIN: No rashes, no jaundice; however some decubitus stage II ulcerations. LYMPHATIC: No inguinal or cervical lymphadenopathy. Results Result Diagram: 09/12/16 0550 09/12/16 0550 GUILLERMO PRESSLEY MD Sep 12, 2016 17:00
--- NOTE | 2016-09-12 17:02 | CONS ---
Date/Time of Note Date/Time of Note DATE: 09/12/16 TIME: 17:01 Assessment/Plan Assessment/Plan Chief Complaint/Hosp Course SYSTOLIC HEART FAILURE better w hd JAZLYN ON CKD LOW EF ASHD DM HX CAD AICD PLACEMENT s/p anasarca PLAN hd mwf hd home soon Problems: Consultation Date/Type/Reason Admit Date/Time Aug 27, 2016 at 21:25 Initial Consult Date s/p permacath placement Type of Consultation: renal Referring Provider: BOLA SOLO 24 HR Interval Summary Constitutional: other (waiting for out pt hd) Exam/Review of Systems Vital Signs Vitals Vital Signs Date Time Temp Pulse Resp B/P Pulse Ox O2 Delivery O2 Flow Rate FiO2 09/12/16 16:06 64 09/12/16 15:21 98.2 20 110/56 98 09/12/16 10:39 Nasal Cannula 2.0 Intake and Output 09/11/16 09/11/16 09/12/16 15:00 23:00 07:00 Intake Total 300 ml 800 ml Output Total 2300 ml Balance -2000 ml 800 ml Exam Neck: supple Respiratory: clear to auscultation Cardiovascular: regular rate and rhythm Gastrointestinal: bowel sounds (+), soft Extremities: edema (+) Results Result Diagram: 09/12/16 0550 09/12/16 0550 Results 24 hrs Laboratory Tests Test 09/11/16 17:21 09/11/16 21:38 09/12/16 05:50 09/12/16 07:22 Bedside Glucose 145 150 56 L White Blood Count 7.3 Red Blood Count 3.55 L Hemoglobin 9.3 L Hematocrit 30.5 L Mean Corpuscular Volume 85.9 Mean Corpuscular Hemoglobin 26.2 L Mean Corpuscular Hemoglobin Concent 30.5 L Red Cell Distribution Width 24.1 H Platelet Count 231 Mean Platelet Volume 10.9 H Neutrophils % 81.1 H Lymphocytes % 11.2 L Monocytes % 6.7 Eosinophils % 0.5 Basophils % 0.1 Nucleated Red Blood Cells % 4.9 H Neutrophils # 5.9 Lymphocytes # 0.8 Monocytes # 0.5 Eosinophils # 0.0 Basophils # 0.0 Nucleated Red Blood Cells # 0.4 H Sodium Level 130 L Potassium Level 4.3 Chloride Level 92 L Carbon Dioxide Level 22 Anion Gap 20 H Blood Urea Nitrogen 40 #H Creatinine 2.00 H Glucose Level 49 *L Calcium Level 8.8 Test 09/12/16 07:44 09/12/16 08:17 09/12/16 11:24 Bedside Glucose 62 L 104 80 Medications Medications Current Medications Acetaminophen (Tylenol Tab) 650 mg Q6H PRN PO PAIN AND OR ELEVATED TEMP Last administered on 09/12/16 00:06; Admin Dose 650 MG; Start 08/27/16 at 23:00 Insulin Glargine (Lantus) 10 unit QAM SC Last administered on 09/12/16 08:27; Admin Dose 10 UNIT; Start 08/28/16 at 09:00 Ondansetron HCl (Zofran Inj) 4 mg Q6H PRN IV NAUSEA AND/OR VOMITING; Start at 23:00 Isosorbide Dinitrate (Isordil) 10 mg TID PO Last administered on 08/29/16 09:54 ; Admin Dose 10 MG; Start 08/28/16 at 09:00; Status Future Hold Sucralfate (Carafate) 1 gm QID PO Last administered on 09/12/16 13:16; Admin Dose 1 GM; Start 08/28/16 at 09:00 Morphine Sulfate (morphine) 2 mg Q2H PRN IV PAIN Last administered on 09/01/16 10:22; Admin Dose 2 MG; Start 09/01/16 at 01:30 Digoxin (Digoxin) 0.125 mg Q2D@13 PO Last administered on 09/11/16 13:25; Admin Dose 0.125 MG; Start 09/03/16 at 13:00 Ascorbic Acid (Vitamin C) 500 mg DAILY PO Last administered on 09/12/16 08:22 ; Admin Dose 500 MG; Start 09/03/16 at 10:30 Docusate Sodium (Colace) 200 mg QHS PO Last administered on 09/11/16 21:39; Admin Dose 200 MG; Start 09/03/16 at 21:00 Zinc Sulfate (Zinc Sulfate) 220 mg DAILY PO Last administered on 09/12/16 08: 22; Admin Dose 220 MG; Start 09/03/16 at 10:30 Multivitamins Therapeutic (Theragran) 1 tab DAILY PO Last administered on 08:22; Admin Dose 1 TAB; Start 09/03/16 at 10:30 Miscellaneous Information 1 ea NOTE XX Last administered on 09/05/16 08:52; Admin Dose 1 EA; Start 09/03/16 at 11:00 Glucose (Glutose) 15 gm Q15M PRN PO DECREASED GLUCOSE; Start 09/03/16 at 11:00 Glucose (Glutose) 22.5 gm Q15M PRN PO DECREASED GLUCOSE; Start 09/03/16 at 11:00 Dextrose (D50w Syringe) 25 ml Q15M PRN IV DECREASED GLUCOSE Last administered on 09/08/16 09:03; Admin Dose 25 ML; Start 09/03/16 at 11:00 Dextrose (D50w Syringe) 50 ml Q15M PRN IV DECREASED GLUCOSE Last administered on 09/09/16 14:48; Admin Dose 50 ML; Start 09/03/16 at 11:00 Glucagon (Glucagen) 1 mg Q15M PRN IM DECREASED GLUCOSE; Start 09/03/16 at 11:00 Glucose (Glutose) 15 gm Q15M PRN BUCCAL DECREASED GLUCOSE; Start 09/03/16 at 11: 00 Mupirocin (Bactroban) 1 applic BID TOP Last administered on 09/12/16 08:28; Admin Dose 1 APPLIC; Start 09/03/16 at 21:00 Pantoprazole (Protonix Tab) 40 mg DAILY@06 PO Last administered on 09/12/16 06 :16; Admin Dose 40 MG; Start 09/05/16 at 06:00 Hydralazine HCl (Apresoline) 10 mg Q8 PO Last administered on 09/12/16 13:17; Admin Dose 10 MG; Start 09/04/16 at 22:00 Furosemide (Lasix) 20 mg DAILY IV Last administered on 09/12/16 08:23; Admin Dose 20 MG; Start 09/05/16 at 09:01 Carvedilol (Coreg) 1.5625 mg BID PO Last administered on 09/12/16 08:23; Admin Dose 1.5625 MG; Start 09/06/16 at 21:00 Apixaban (Eliquis) 2.5 mg BID PO Last administered on 09/12/16 08:22; Admin Dose 2.5 MG; Start 09/11/16 at 10:00 YANIRA HART MD Sep 12, 2016 17:02
[2016-09-12] MEDS: DOCUSATE SODIUM 100 MG CAP PO SCH (21:00)
[2016-09-13] VITALS (13 sets, daily range): BP systolic 108–134; BP diastolic 53–63; PULSE 60–90; RESP 18–24
[2016-09-13 06:29] LABS: ADD SCAN DIFF NO
[2016-09-13] MEDS: PANTOPRAZOLE (EC) 40 MG TAB PO SCH (06:31)
[2016-09-13 06:42] LABS: POTASSIUM 4.1 mmol/L (3.5-5.1)
[2016-09-13 06:44] LABS: CREATININE 2.41 mg/dl (0.61-1.24)
[2016-09-13 06:46] LABS: CALCIUM 9.1 mg/dl (8.4-10.2)
[2016-09-13 06:54] LABS: ABNORMAL IP MESSAGE 1; BASOPHILS % 0.2 % (0.0-2.0); EOSINOPHILS # 0.1 10^3/ul (0.0-0.5); EOSINOPHILS % 1.3 % (0.0-7.0); HEMATOCRIT 31.9 % (42.0-52.0); HEMOGLOBIN 9.7 g/dl (14.0-18.0); LYMPHOCYTES # 0.8 10^3/ul (0.8-2.9); LYMPHOCYTES % 12.4 % (15.0-51.0); MEAN CORPUSCULAR HEMOGLOBIN 26.4 pg (29.0-33.0); MEAN CORPUSCULAR HGB CONC 30.4 g/dl (32.0-37.0); MEAN CORPUSCULAR VOLUME 86.9 fl (82.0-101.0); MEAN PLATELET VOLUME 10.7 fl (7.4-10.4); MONOCYTE # 0.4 10^3/ul (0.3-0.9); MONOCYTES % 6.9 % (0.0-11.0); NEUTROPHIL # 4.8 10^3/ul (1.6-7.5); NEUTROPHILS % 78.7 % (39.0-77.0); NUCLEATED RED BLOOD CELLS # 0.7 10^3/ul (0.0-0.0); PLATELET COUNT 256 10^3/UL (140-415); RED BLOOD COUNT 3.67 10^6/ul (4.70-6.10); RED CELL DISTRIBUTION WIDTH 23.6 % (11.5-14.5); WHITE BLOOD COUNT 6.1 10^3/ul (4.8-10.8)
[2016-09-13] MEDS: Insulin NOVOLOG SS MILD Algorithm (SS with meals and bedtime) SC SCH ×4 (07:25→21:00)
[2016-09-13] MEDS: MUPIROCIN 2% 22 GM OINT TOP SCH ×2 (08:14→21:33)
[2016-09-13] MEDS: ASCORBIC ACID 500 MG TAB PO SCH (08:14)
[2016-09-13] MEDS: APIXABAN 5 MG TABLET PO SCH ×2 (08:15→21:32)
[2016-09-13] MEDS: ZINC SULFATE 220 MG CAP PO SCH (08:15)
[2016-09-13] MEDS: SUCRALFATE 1 GM TAB PO SCH ×4 (08:15→21:32)
[2016-09-13] MEDS: MULTIVITAMINS THERAPEUTIC TAB PO SCH (08:15)
[2016-09-13] MEDS: INSULIN GLARGINE [LANtus] 3 ML PEN SC SCH (08:15)
[2016-09-13] MEDS: FUROSEMIDE 20 MG INJ IV SCH (08:22)
--- NOTE | 2016-09-13 10:01 | PN ---
Date/Time of Note Date/Time of Note DATE: 09/13/16 TIME: 09:56 Assessment/Plan VTE Prophylaxis VTE Prophylaxis Intervention: other (Eliquis) Lines/Catheters [facility] Saline Lock Urinary Cath still in place: No Assessment/Plan Chief Complaint/Hosp Course Assessment/Plan: 81-year-old male with the following medical problems: 1. Endstage CHF - improved - f/u CV rec's, continue PO Hydralazine and very low dose BB, monitor 2. s/p Severe sepsis with lactic acidosis 2/2 UTI - improved now - s/p abx, monitor for now 3. Chronic kidney disease, requiring dialysis more for volume removal 2/2 # 1. UO appears minimal. - Patient needs continued HD and diuretic therapy for continued volume removal - Has now received Permacath placement - f/u renal rec's 4. Acute respiratory failure 2/2 CHF successfully extubated 09/02/16 - monitor 5. Diabetes mellitus type 2 - Titrate insulin therapy as indicated 6. Paroxysmal atrial fibrillation - rate controlled - monitor, f/u CV rec's, continue low dose Eliquis 8. Coronary artery disease with Severe isch CM s/p CABG and AICD - monitor, f/u CV rec's 9 Chronic hypochromic anemia secondary to end-stage renal disease. - monitor H/H 10. Chronic liver cirrhosis with coagulopathy with Mild hyperbilirubinemia with transaminitis 11 Methicillin-resistant Staphylococcus aureus, nares. s/p 7 days of bactroban 12. Severe debility - monitor. 13. Dispo: needs outpt HD set up - is actively working on this. pt also needs bedside commode (pt confined at night/[facility] to [facility]) - Pt needs wheelchair b/c unstable gait as well, and b/c unsafe to walk with walker - these have been ordered as well. PROPHYLAXIS: Eliquis/ PPI as well Problems: Subjective 24 Hr Interval Summary Free Text/Dictation Pt had some low blood sugar this AM, improved, otherwise no acute events overnight. Exam/Review of Systems Vital Signs Vitals Vital Signs Date Time Temp Pulse Resp B/P Pulse Ox O2 Delivery O2 Flow Rate FiO2 09/13/16 08:27 60 09/13/16 07:44 97.5 20 121/53 100 09/13/16 04:00 Nasal Cannula 3.0 Intake and Output 09/12/16 09/12/16 09/13/16 15:00 23:00 07:00 Intake Total 450 ml 720 ml 400 ml Balance 450 ml 720 ml 400 ml Exam Constitutional: alert, oriented, cachectic Head: atraumatic, normocephalic Eyes: PERRL ENMT: mucosa pink and moist Neck: supple Respiratory: some crackles/rales, diminished breath sounds Cardiovascular: irregular rhythm, murmurs/extra sounds Gastrointestinal: bowel sounds, non-tender, soft Extremities: No edema Neurological: lethargic, No focal weakness Results Result Diagram: 09/13/16 0525 09/13/16 0525 Results 24 hrs Laboratory Tests Test 09/12/16 11:24 09/12/16 17:41 09/12/16 18:02 09/12/16 21:34 Bedside Glucose 80 69 L 88 103 Test 09/13/16 03:16 09/13/16 03:46 09/13/16 04:53 09/13/16 05:25 Bedside Glucose 69 L 65 L 84 White Blood Count 6.1 Red Blood Count 3.67 L Hemoglobin 9.7 L Hematocrit 31.9 L Mean Corpuscular Volume 86.9 Mean Corpuscular Hemoglobin 26.4 L Mean Corpuscular Hemoglobin Concent 30.4 L Red Cell Distribution Width 23.6 H Platelet Count 256 Mean Platelet Volume 10.7 H Neutrophils % 78.7 H Lymphocytes % 12.4 L Monocytes % 6.9 Eosinophils % 1.3 Basophils % 0.2 Nucleated Red Blood Cells % 11.0 H Neutrophils # 4.8 Lymphocytes # 0.8 Monocytes # 0.4 Eosinophils # 0.1 Basophils # 0.0 Nucleated Red Blood Cells # 0.7 H Sodium Level 126 L Potassium Level 4.1 Chloride Level 88 L Carbon Dioxide Level 24 Anion Gap 18 H Blood Urea Nitrogen 51 H Creatinine 2.41 H Glucose Level 47 *L Calcium Level 9.1 Test 09/13/16 07:00 09/13/16 07:21 09/13/16 07:46 09/13/16 08:04 Bedside Glucose 62 L 66 L 60 L 59 L Test 09/13/16 08:18 09/13/16 08:27 09/13/16 08:50 09/13/16 09:21 Bedside Glucose 68 L 60 L 79 122 Medications Medications Current Medications Acetaminophen (Tylenol Tab) 650 mg Q6H PRN PO PAIN AND OR ELEVATED TEMP Last administered on 09/12/16 00:06; Admin Dose 650 MG; Start 08/27/16 at 23:00 Insulin Glargine (Lantus) 10 unit QAM SC Last administered on 09/12/16 08:27; Admin Dose 10 UNIT; Start 08/28/16 at 09:00 Ondansetron HCl (Zofran Inj) 4 mg Q6H PRN IV NAUSEA AND/OR VOMITING; Start at 23:00 Isosorbide Dinitrate (Isordil) 10 mg TID PO Last administered on 08/29/16 09:54 ; Admin Dose 10 MG; Start 08/28/16 at 09:00; Status Future Hold Sucralfate (Carafate) 1 gm QID PO Last administered on 09/13/16 08:15; Admin Dose 1 GM; Start 08/28/16 at 09:00 Morphine Sulfate (morphine) 2 mg Q2H PRN IV PAIN Last administered on 09/01/16 10:22; Admin Dose 2 MG; Start 09/01/16 at 01:30 Digoxin (Digoxin) 0.125 mg Q2D@13 PO Last administered on 09/11/16 13:25; Admin Dose 0.125 MG; Start 09/03/16 at 13:00 Ascorbic Acid (Vitamin C) 500 mg DAILY PO Last administered on 09/13/16 08:14 ; Admin Dose 500 MG; Start 09/03/16 at 10:30 Docusate Sodium (Colace) 200 mg QHS PO Last administered on 09/11/16 21:39; Admin Dose 200 MG; Start 09/03/16 at 21:00 Zinc Sulfate (Zinc Sulfate) 220 mg DAILY PO Last administered on 09/13/16 08: 15; Admin Dose 220 MG; Start 09/03/16 at 10:30 Multivitamins Therapeutic (Theragran) 1 tab DAILY PO Last administered on 08:15; Admin Dose 1 TAB; Start 09/03/16 at 10:30 Miscellaneous Information 1 ea NOTE XX Last administered on 09/05/16 08:52; Admin Dose 1 EA; Start 09/03/16 at 11:00 Glucose (Glutose) 15 gm Q15M PRN PO DECREASED GLUCOSE; Start 09/03/16 at 11:00 Glucose (Glutose) 22.5 gm Q15M PRN PO DECREASED GLUCOSE; Start 09/03/16 at 11:00 Dextrose (D50w Syringe) 25 ml Q15M PRN IV DECREASED GLUCOSE Last administered on 09/08/16 09:03; Admin Dose 25 ML; Start 09/03/16 at 11:00 Dextrose (D50w Syringe) 50 ml Q15M PRN IV DECREASED GLUCOSE Last administered on 09/09/16 14:48; Admin Dose 50 ML; Start 09/03/16 at 11:00 Glucagon (Glucagen) 1 mg Q15M PRN IM DECREASED GLUCOSE; Start 09/03/16 at 11:00 Glucose (Glutose) 15 gm Q15M PRN BUCCAL DECREASED GLUCOSE; Start 09/03/16 at 11: 00 Mupirocin (Bactroban) 1 applic BID TOP Last administered on 09/13/16 08:14; Admin Dose 1 APPLIC; Start 09/03/16 at 21:00 Pantoprazole (Protonix Tab) 40 mg DAILY@06 PO Last administered on 09/13/16 06 :31; Admin Dose 40 MG; Start 09/05/16 at 06:00 Hydralazine HCl (Apresoline) 10 mg Q8 PO Last administered on 09/13/16 06:31; Admin Dose 10 MG; Start 09/04/16 at 22:00 Furosemide (Lasix) 20 mg DAILY IV Last administered on 09/13/16 08:22; Admin Dose 20 MG; Start 09/05/16 at 09:01 Carvedilol (Coreg) 1.5625 mg BID PO Last administered on 09/13/16 08:15; Admin Dose 1.5625 MG; Start 09/06/16 at 21:00 Apixaban (Eliquis) 2.5 mg BID PO Last administered on 09/13/16 08:15; Admin Dose 2.5 MG; Start 09/11/16 at 10:00 THERESA RIVERA Sep 13, 2016 10:01
--- NOTE | 2016-09-13 13:19 | CONS ---
Date/Time of Note Date/Time of Note DATE: 09/13/16 TIME: :17 Assessment/Plan Assessment/Plan Additional Assessment/Plan 1. Acute Congestive heart failure exacerbation 2. Ischemic Cardiomyopathy with decreased left ventricular ejection fraction. 3. Coronary artery disease status post coronary artery bypass grafting. 4. S/P automatic implantable cardioverter-defibrillator implant. 5. Paroxysmal atrial fibrillation. 6. Renal failure on HD 7. Anemia. 8. Encephalopathy. 9. Coagulopathy. 10. Urinary tract infection. 11. Pneumonia 12. Shock Liver 13. Thrombocytopenia V Paced Rhythm Hemodynamically stable Avoid Volume Overload Continue HD Continue Coreg Continue Digoxin Continue Eliquis Continue Antibiotics Monitor on telemetry Consultation Date/Type/Reason Admit Date/Time Aug 27, 2016 at 21:25 Type of Consultation: renal Referring Provider: BOLA SOLO Exam/Review of Systems Vital Signs Vitals Vital Signs Date Time Temp Pulse Resp B/P Pulse Ox O2 Delivery O2 Flow Rate FiO2 09/13/16 12:20 62 09/13/16 11:46 97.0 20 108/54 95 09/13/16 11:00 Nasal Cannula 2.0 Intake and Output 09/12/16 09/12/16 09/13/16 15:00 23:00 07:00 Intake Total 450 ml 720 ml 400 ml Balance 450 ml 720 ml 400 ml Exam Constitutional: alert, oriented Head: atraumatic, normocephalic Respiratory: clear to auscultation Cardiovascular: irregular rhythm Gastrointestinal: nl liver, spleen, non-tender, soft Results Result Diagram: 09/13/16 0525 09/13/16 0525 Results 24 hrs Laboratory Tests Test 09/12/16 17:41 09/12/16 18:02 09/12/16 21:34 09/13/16 03:16 Bedside Glucose 69 L 88 103 69 L Test 09/13/16 03:46 09/13/16 04:53 09/13/16 05:25 09/13/16 07:00 Bedside Glucose 65 L 84 62 L White Blood Count 6.1 Red Blood Count 3.67 L Hemoglobin 9.7 L Hematocrit 31.9 L Mean Corpuscular Volume 86.9 Mean Corpuscular Hemoglobin 26.4 L Mean Corpuscular Hemoglobin Concent 30.4 L Red Cell Distribution Width 23.6 H Platelet Count 256 Mean Platelet Volume 10.7 H Neutrophils % 78.7 H Lymphocytes % 12.4 L Monocytes % 6.9 Eosinophils % 1.3 Basophils % 0.2 Nucleated Red Blood Cells % 11.0 H Neutrophils # 4.8 Lymphocytes # 0.8 Monocytes # 0.4 Eosinophils # 0.1 Basophils # 0.0 Nucleated Red Blood Cells # 0.7 H Sodium Level 126 L Potassium Level 4.1 Chloride Level 88 L Carbon Dioxide Level 24 Anion Gap 18 H Blood Urea Nitrogen 51 H Creatinine 2.41 H Glucose Level 47 *L Calcium Level 9.1 Test 09/13/16 07:21 09/13/16 07:46 09/13/16 08:04 09/13/16 08:18 Bedside Glucose 66 L 60 L 59 L 68 L Test 09/13/16 08:27 09/13/16 08:50 09/13/16 09:21 09/13/16 11:37 Bedside Glucose 60 L 79 122 154 Medications Medications Current Medications Acetaminophen (Tylenol Tab) 650 mg Q6H PRN PO PAIN AND OR ELEVATED TEMP Last administered on 09/12/16 00:06; Admin Dose 650 MG; Start 08/27/16 at 23:00 Insulin Glargine (Lantus) 10 unit QAM SC Last administered on 09/12/16 08:27; Admin Dose 10 UNIT; Start 08/28/16 at 09:00 Ondansetron HCl (Zofran Inj) 4 mg Q6H PRN IV NAUSEA AND/OR VOMITING; Start at 23:00 Isosorbide Dinitrate (Isordil) 10 mg TID PO Last administered on 08/29/16 09:54 ; Admin Dose 10 MG; Start 08/28/16 at 09:00; Status Future Hold Sucralfate (Carafate) 1 gm QID PO Last administered on 09/13/16 08:15; Admin Dose 1 GM; Start 08/28/16 at 09:00 Morphine Sulfate (morphine) 2 mg Q2H PRN IV PAIN Last administered on 09/01/16 10:22; Admin Dose 2 MG; Start 09/01/16 at 01:30 Digoxin (Digoxin) 0.125 mg Q2D@13 PO Last administered on 09/11/16 13:25; Admin Dose 0.125 MG; Start 09/03/16 at 13:00 Ascorbic Acid (Vitamin C) 500 mg DAILY PO Last administered on 09/13/16 08:14 ; Admin Dose 500 MG; Start 09/03/16 at 10:30 Docusate Sodium (Colace) 200 mg QHS PO Last administered on 09/11/16 21:39; Admin Dose 200 MG; Start 09/03/16 at 21:00 Zinc Sulfate (Zinc Sulfate) 220 mg DAILY PO Last administered on 09/13/16 08: 15; Admin Dose 220 MG; Start 09/03/16 at 10:30 Multivitamins Therapeutic (Theragran) 1 tab DAILY PO Last administered on 08:15; Admin Dose 1 TAB; Start 09/03/16 at 10:30 Miscellaneous Information 1 ea NOTE XX Last administered on 09/05/16 08:52; Admin Dose 1 EA; Start 09/03/16 at 11:00 Glucose (Glutose) 15 gm Q15M PRN PO DECREASED GLUCOSE; Start 09/03/16 at 11:00 Glucose (Glutose) 22.5 gm Q15M PRN PO DECREASED GLUCOSE; Start 09/03/16 at 11:00 Dextrose (D50w Syringe) 25 ml Q15M PRN IV DECREASED GLUCOSE Last administered on 09/08/16 09:03; Admin Dose 25 ML; Start 09/03/16 at 11:00 Dextrose (D50w Syringe) 50 ml Q15M PRN IV DECREASED GLUCOSE Last administered on 09/09/16 14:48; Admin Dose 50 ML; Start 09/03/16 at 11:00 Glucagon (Glucagen) 1 mg Q15M PRN IM DECREASED GLUCOSE; Start 09/03/16 at 11:00 Glucose (Glutose) 15 gm Q15M PRN BUCCAL DECREASED GLUCOSE; Start 09/03/16 at 11: 00 Mupirocin (Bactroban) 1 applic BID TOP Last administered on 09/13/16 08:14; Admin Dose 1 APPLIC; Start 09/03/16 at 21:00 Pantoprazole (Protonix Tab) 40 mg DAILY@06 PO Last administered on 09/13/16 06 :31; Admin Dose 40 MG; Start 09/05/16 at 06:00 Hydralazine HCl (Apresoline) 10 mg Q8 PO Last administered on 09/13/16 06:31; Admin Dose 10 MG; Start 09/04/16 at 22:00 Furosemide (Lasix) 20 mg DAILY IV Last administered on 09/13/16 08:22; Admin Dose 20 MG; Start 09/05/16 at 09:01 Carvedilol (Coreg) 1.5625 mg BID PO Last administered on 09/13/16 08:15; Admin Dose 1.5625 MG; Start 09/06/16 at 21:00 Apixaban (Eliquis) 2.5 mg BID PO Last administered on 09/13/16 08:15; Admin Dose 2.5 MG; Start 09/11/16 at 10:00 CLARISSA ENRIQUE M.D. Sep 13, 2016 13:19
--- NOTE | 2016-09-13 14:10 | CONS ---
Date/Time of Note Date/Time of Note DATE: 09/13/16 TIME: 14:09 Assessment/Plan Assessment/Plan Chief Complaint/Hosp Course SYSTOLIC HEART FAILURE better w hd JAZLYN ON CKD LOW EF ASHD DM HX CAD AICD PLACEMENT s/p anasarca PLAN hd mwf hd home soon Problems: Consultation Date/Type/Reason Admit Date/Time Aug 27, 2016 at 21:25 Initial Consult Date s/p permacath placement Type of Consultation: renal Referring Provider: BOLA SOLO 24 HR Interval Summary Constitutional: no complaints Exam/Review of Systems Vital Signs Vitals Vital Signs Date Time Temp Pulse Resp B/P Pulse Ox O2 Delivery O2 Flow Rate FiO2 09/13/16 12:20 62 09/13/16 11:46 97.0 20 108/54 95 09/13/16 11:00 Nasal Cannula 2.0 Intake and Output 09/12/16 09/12/16 09/13/16 15:00 23:00 07:00 Intake Total 450 ml 720 ml 400 ml Balance 450 ml 720 ml 400 ml Exam Neck: supple Respiratory: diminished breath sounds Cardiovascular: regular rate and rhythm Gastrointestinal: bowel sounds (+), soft Extremities: edema (+) Results Result Diagram: 09/13/16 0525 09/13/16 0525 Results 24 hrs Laboratory Tests Test 09/12/16 17:41 09/12/16 18:02 09/12/16 21:34 09/13/16 03:16 Bedside Glucose 69 L 88 103 69 L Test 09/13/16 03:46 09/13/16 04:53 09/13/16 05:25 09/13/16 07:00 Bedside Glucose 65 L 84 62 L White Blood Count 6.1 Red Blood Count 3.67 L Hemoglobin 9.7 L Hematocrit 31.9 L Mean Corpuscular Volume 86.9 Mean Corpuscular Hemoglobin 26.4 L Mean Corpuscular Hemoglobin Concent 30.4 L Red Cell Distribution Width 23.6 H Platelet Count 256 Mean Platelet Volume 10.7 H Neutrophils % 78.7 H Lymphocytes % 12.4 L Monocytes % 6.9 Eosinophils % 1.3 Basophils % 0.2 Nucleated Red Blood Cells % 11.0 H Neutrophils # 4.8 Lymphocytes # 0.8 Monocytes # 0.4 Eosinophils # 0.1 Basophils # 0.0 Nucleated Red Blood Cells # 0.7 H Sodium Level 126 L Potassium Level 4.1 Chloride Level 88 L Carbon Dioxide Level 24 Anion Gap 18 H Blood Urea Nitrogen 51 H Creatinine 2.41 H Glucose Level 47 *L Calcium Level 9.1 Test 09/13/16 07:21 09/13/16 07:46 09/13/16 08:04 09/13/16 08:18 Bedside Glucose 66 L 60 L 59 L 68 L Test 09/13/16 08:27 09/13/16 08:50 09/13/16 09:21 09/13/16 11:37 Bedside Glucose 60 L 79 122 154 Medications Medications Current Medications Acetaminophen (Tylenol Tab) 650 mg Q6H PRN PO PAIN AND OR ELEVATED TEMP Last administered on 09/12/16 00:06; Admin Dose 650 MG; Start 08/27/16 at 23:00 Insulin Glargine (Lantus) 10 unit QAM SC Last administered on 09/12/16 08:27; Admin Dose 10 UNIT; Start 08/28/16 at 09:00 Ondansetron HCl (Zofran Inj) 4 mg Q6H PRN IV NAUSEA AND/OR VOMITING; Start at 23:00 Isosorbide Dinitrate (Isordil) 10 mg TID PO Last administered on 08/29/16 09:54 ; Admin Dose 10 MG; Start 08/28/16 at 09:00; Status Future Hold Sucralfate (Carafate) 1 gm QID PO Last administered on 09/13/16 08:15; Admin Dose 1 GM; Start 08/28/16 at 09:00 Morphine Sulfate (morphine) 2 mg Q2H PRN IV PAIN Last administered on 09/01/16 10:22; Admin Dose 2 MG; Start 09/01/16 at 01:30 Digoxin (Digoxin) 0.125 mg Q2D@13 PO Last administered on 09/11/16 13:25; Admin Dose 0.125 MG; Start 09/03/16 at 13:00 Ascorbic Acid (Vitamin C) 500 mg DAILY PO Last administered on 09/13/16 08:14 ; Admin Dose 500 MG; Start 09/03/16 at 10:30 Docusate Sodium (Colace) 200 mg QHS PO Last administered on 09/11/16 21:39; Admin Dose 200 MG; Start 09/03/16 at 21:00 Zinc Sulfate (Zinc Sulfate) 220 mg DAILY PO Last administered on 09/13/16 08: 15; Admin Dose 220 MG; Start 09/03/16 at 10:30 Multivitamins Therapeutic (Theragran) 1 tab DAILY PO Last administered on 08:15; Admin Dose 1 TAB; Start 09/03/16 at 10:30 Miscellaneous Information 1 ea NOTE XX Last administered on 09/05/16 08:52; Admin Dose 1 EA; Start 09/03/16 at 11:00 Glucose (Glutose) 15 gm Q15M PRN PO DECREASED GLUCOSE; Start 09/03/16 at 11:00 Glucose (Glutose) 22.5 gm Q15M PRN PO DECREASED GLUCOSE; Start 09/03/16 at 11:00 Dextrose (D50w Syringe) 25 ml Q15M PRN IV DECREASED GLUCOSE Last administered on 09/08/16 09:03; Admin Dose 25 ML; Start 09/03/16 at 11:00 Dextrose (D50w Syringe) 50 ml Q15M PRN IV DECREASED GLUCOSE Last administered on 09/09/16 14:48; Admin Dose 50 ML; Start 09/03/16 at 11:00 Glucagon (Glucagen) 1 mg Q15M PRN IM DECREASED GLUCOSE; Start 09/03/16 at 11:00 Glucose (Glutose) 15 gm Q15M PRN BUCCAL DECREASED GLUCOSE; Start 09/03/16 at 11: 00 Mupirocin (Bactroban) 1 applic BID TOP Last administered on 09/13/16 08:14; Admin Dose 1 APPLIC; Start 09/03/16 at 21:00 Pantoprazole (Protonix Tab) 40 mg DAILY@06 PO Last administered on 09/13/16 06 :31; Admin Dose 40 MG; Start 09/05/16 at 06:00 Hydralazine HCl (Apresoline) 10 mg Q8 PO Last administered on 09/13/16 06:31; Admin Dose 10 MG; Start 09/04/16 at 22:00 Furosemide (Lasix) 20 mg DAILY IV Last administered on 09/13/16 08:22; Admin Dose 20 MG; Start 09/05/16 at 09:01 Carvedilol (Coreg) 1.5625 mg BID PO Last administered on 09/13/16 08:15; Admin Dose 1.5625 MG; Start 09/06/16 at 21:00 Apixaban (Eliquis) 2.5 mg BID PO Last administered on 09/13/16 08:15; Admin Dose 2.5 MG; Start 09/11/16 at 10:00 YANIRA HART MD Sep 13, 2016 14:10
[2016-09-13] MEDS: DIGOXIN 0.125 MG TAB PO SCH (15:11)
[2016-09-13] MEDS: DOCUSATE SODIUM 100 MG CAP PO SCH (21:31)
--- NOTE | 2016-09-13 23:04 | PN ---
Date/Time of Note Date/Time of Note DATE: 09/13/16 TIME: 23:02 Assessment/Plan Lines/Catheters IV C[facility] Type (from [facility]): Saline Lock [facility] in Place (from Nrs): No Assessment/Plan Chief Complaint/Hosp Course 1. Acute renal failure s/p right IJ Permacath 09/09 -HD 2. Acute on chronic congestive heart failure with cardiomyopathy and cardiomegaly and ejection fraction of 25%. Continue cardiac optimization and judicious fluid management. 3. Anemia without evidence of acute blood loss. Continue monitoring. 4. Hypoalbuminemia. Will benefit from nutritional optimization. 5. Recent urinary tract infection and pneumonia with sepsis and shock, status post antibiotics and judicious fluid management. Improving. 6. Diabetes mellitus type 2. Continue nutrition and medication optimization. 7. Paroxysmal atrial fibrillation. Continue medical and cardiac optimization. Patient is anticoagulated. 8. Recent acute respiratory failure secondary to multiple issues. Successfully extubated on 09/02/2016. Thank you Problems: Subjective 24 Hr Interval Summary No f/c. No cough. No sz. No rash. No vomiting or nausea. No abdominal pain. No bloating. Exam/Review of Systems Vital Signs Vitals Vital Signs Date Time Temp Pulse Resp B/P Pulse Ox O2 Delivery O2 Flow Rate FiO2 09/13/16 22:44 Nasal Cannula 2.0 09/13/16 20:31 60 09/13/16 20:00 97.8 18 134/63 100 Intake and Output 09/12/16 09/12/16 09/13/16 15:00 23:00 07:00 Intake Total 450 ml 720 ml 400 ml Balance 450 ml 720 ml 400 ml Exam Free Text/Dictation GENERAL: No acute distress, responsive. HEENT: Pupils equal, reactive. No scleral icterus. Mucous membranes are moist. NECK: Minimal JVD. Right IJ Permacath. Supple. PULMONARY: Normal respiratory effort. No wheezing. CARDIAC: S1, S2 present. ABDOMEN: Soft, nontender. EXTREMITIES: No edema. VASCULAR: Cap refill less than 2 seconds. NEUROLOGIC: Alert, oriented, moves all 4 extremities grossly. SKIN: No rashes, no jaundice; however some decubitus stage II ulcerations. LYMPHATIC: No inguinal or cervical lymphadenopathy. Results Result Diagram: 09/13/16 0525 09/13/16 0525 GUILLERMO PRESSLEY MD Sep 13, 2016 23:04
[2016-09-14] VITALS (19 sets, daily range): BP systolic 100–121; BP diastolic 49–63; PULSE 60–65; RESP 16–20
[2016-09-14] MEDS: ACETAMINOPHEN 325 MG TAB PO PRN (00:34)
[2016-09-14] MEDS: PANTOPRAZOLE (EC) 40 MG TAB PO SCH (05:53)
[2016-09-14] MEDS: Insulin NOVOLOG SS MILD Algorithm (SS with meals and bedtime) SC SCH ×4 (07:25→21:00)
[2016-09-14] MEDS: FUROSEMIDE 20 MG INJ IV SCH (07:55)
[2016-09-14 09:39] LABS: CALCIUM 9.1 mg/dl (8.4-10.2); CREATININE 2.79 mg/dl (0.61-1.24); POTASSIUM 5.5 mmol/L (3.5-5.1)
[2016-09-14] MEDS: ASCORBIC ACID 500 MG TAB PO SCH (09:40)
[2016-09-14] MEDS: SUCRALFATE 1 GM TAB PO SCH ×4 (09:40→21:00)
[2016-09-14] MEDS: ZINC SULFATE 220 MG CAP PO SCH (09:40)
[2016-09-14] MEDS: MULTIVITAMINS THERAPEUTIC TAB PO SCH (09:40)
[2016-09-14] MEDS: MUPIROCIN 2% 22 GM OINT TOP SCH ×2 (09:41→21:49)
[2016-09-14] MEDS: APIXABAN 5 MG TABLET PO SCH ×2 (09:41→23:17)
[2016-09-14] MEDS: INSULIN GLARGINE [LANtus] 3 ML PEN SC SCH (10:04)
--- NOTE | 2016-09-14 14:24 | CONS ---
Date/Time of Note Date/Time of Note DATE: 09/14/16 TIME: 14:22 Assessment/Plan Assessment/Plan Chief Complaint/Hosp Course IMp: 1.CHF-systolic acute on chronic 2.Hypotension-stable now tolerating low dose coreg/hydralazine 3.REnal failurwe s/p HD 4.Cardiomyopathy with low EF 5.AICD 6.H/O cad s/p cabg 7.PAF 8.Coagulopathy-ongoing 9. Resp failure-improved s/p extubation 10.Pew-oz-iojjoxq is without cardiac contraindication to proceeding permacath placement at this time but high risk due to severely depressed EF/cad-now post- op s/p placement Recc: -Tele -Continue abx's and f/u cx data -HD for volume removal -Continue digoxin QOD -Now resumed on apixaban -Continue to follow BP closely on low dose hydralazine afterload reduction and low dose coreg. Possible change to ACEI soon -PT -? podiatry eval of feet Problems: Consultation Date/Type/Reason Admit Date/Time Aug 27, 2016 at 21:25 Initial Consult Date 08/28/2016 Type of Consultation: Cardiology Reason for Consultation Cardiomyopathy/CHF Referring Provider: BOLA SOLO Exam/Review of Systems Vital Signs Vitals Vital Signs Date Time Temp Pulse Resp B/P Pulse Ox O2 Delivery O2 Flow Rate FiO2 09/14/16 12:21 60 09/14/16 11:24 97.7 20 106/55 100 09/14/16 08:20 Nasal Cannula 2.0 Intake and Output 09/13/16 09/13/16 09/14/16 15:00 23:00 07:00 Intake Total 900 ml 300 ml Balance 900 ml 300 ml Exam Review of Systems: CONSTITUTIONAL: No fevers, chills. PULMONARY: No sob CARDIOVASCULAR: No chest pain/palpitations GASTROINTESTINAL: No nausea/vomiting. GENITOURINARY: No hematuria/dysuria. MUSCULOSKELETAL: No myagias/arthalgias. PSYCHIATRIC: The patient denies depression. NEUROLOGIC: lethargic Constitutional: other (sleeping) Psych: no complaints Head: normocephalic ENMT: mucosa pink and moist Neck: jvd (9 cm water), supple Respiratory: diminished breath sounds (at bases/B) Cardiovascular: regular rate and rhythm Gastrointestinal: non-tender, soft Musculoskeletal: muscle weakness (generalized) Extremities: other (TRace/B) Neurological: lethargic Results Result Diagram: 09/13/16 0525 09/14/16 0845 Results 24 hrs Laboratory Tests Test 09/13/16 18:56 09/13/16 21:38 09/14/16 07:35 09/14/16 08:45 Bedside Glucose 144 179 105 Sodium Level 122 L Potassium Level 5.5 H Chloride Level 86 L Carbon Dioxide Level 20 L Anion Gap 22 H Blood Urea Nitrogen 60 H Creatinine 2.79 H Glucose Level 78 Calcium Level 9.1 Test 09/14/16 11:29 Bedside Glucose 124 Medications Medications Current Medications Acetaminophen (Tylenol Tab) 650 mg Q6H PRN PO PAIN AND OR ELEVATED TEMP Last administered on 09/14/16 00:34; Admin Dose 650 MG; Start 08/27/16 at 23:00 Insulin Glargine (Lantus) 10 unit QAM SC Last administered on 09/14/16 10:04; Admin Dose 10 UNIT; Start 08/28/16 at 09:00 Ondansetron HCl (Zofran Inj) 4 mg Q6H PRN IV NAUSEA AND/OR VOMITING; Start at 23:00 Isosorbide Dinitrate (Isordil) 10 mg TID PO Last administered on 08/29/16 09:54 ; Admin Dose 10 MG; Start 08/28/16 at 09:00; Status Future Hold Sucralfate (Carafate) 1 gm QID PO Last administered on 09/14/16 09:40; Admin Dose 1 GM; Start 08/28/16 at 09:00 Morphine Sulfate (morphine) 2 mg Q2H PRN IV PAIN Last administered on 09/01/16 10:22; Admin Dose 2 MG; Start 09/01/16 at 01:30 Digoxin (Digoxin) 0.125 mg Q2D@13 PO Last administered on 09/13/16 15:11; Admin Dose 0.125 MG; Start 09/03/16 at 13:00 Ascorbic Acid (Vitamin C) 500 mg DAILY PO Last administered on 09/14/16 09:40 ; Admin Dose 500 MG; Start 09/03/16 at 10:30 Docusate Sodium (Colace) 200 mg QHS PO Last administered on 09/13/16 21:31; Admin Dose 200 MG; Start 09/03/16 at 21:00 Zinc Sulfate (Zinc Sulfate) 220 mg DAILY PO Last administered on 09/14/16 09: 40; Admin Dose 220 MG; Start 09/03/16 at 10:30 Multivitamins Therapeutic (Theragran) 1 tab DAILY PO Last administered on 09:40; Admin Dose 1 TAB; Start 09/03/16 at 10:30 Miscellaneous Information 1 ea NOTE XX Last administered on 09/05/16 08:52; Admin Dose 1 EA; Start 09/03/16 at 11:00 Glucose (Glutose) 15 gm Q15M PRN PO DECREASED GLUCOSE; Start 09/03/16 at 11:00 Glucose (Glutose) 22.5 gm Q15M PRN PO DECREASED GLUCOSE; Start 09/03/16 at 11:00 Dextrose (D50w Syringe) 25 ml Q15M PRN IV DECREASED GLUCOSE Last administered on 09/08/16 09:03; Admin Dose 25 ML; Start 09/03/16 at 11:00 Dextrose (D50w Syringe) 50 ml Q15M PRN IV DECREASED GLUCOSE Last administered on 09/09/16 14:48; Admin Dose 50 ML; Start 09/03/16 at 11:00 Glucagon (Glucagen) 1 mg Q15M PRN IM DECREASED GLUCOSE; Start 09/03/16 at 11:00 Glucose (Glutose) 15 gm Q15M PRN BUCCAL DECREASED GLUCOSE; Start 09/03/16 at 11: 00 Mupirocin (Bactroban) 1 applic BID TOP Last administered on 09/14/16 09:41; Admin Dose 1 APPLIC; Start 09/03/16 at 21:00 Pantoprazole (Protonix Tab) 40 mg DAILY@06 PO Last administered on 09/14/16 05 :53; Admin Dose 40 MG; Start 09/05/16 at 06:00 Hydralazine HCl (Apresoline) 10 mg Q8 PO Last administered on 09/14/16 05:54; Admin Dose 10 MG; Start 09/04/16 at 22:00 Furosemide (Lasix) 20 mg DAILY IV Last administered on 09/13/16 08:22; Admin Dose 20 MG; Start 09/05/16 at 09:01 Carvedilol (Coreg) 1.5625 mg BID PO Last administered on 09/13/16 21:33; Admin Dose 1.5625 MG; Start 09/06/16 at 21:00 Apixaban (Eliquis) 2.5 mg BID PO Last administered on 09/14/16 09:41; Admin Dose 2.5 MG; Start 09/11/16 at 10:00 POLI SAN Sep 14, 2016 14:24
--- NOTE | 2016-09-14 14:55 | PN ---
Date/Time of Note Date/Time of Note DATE: 09/14/16 TIME: 14:49 Assessment/Plan VTE Prophylaxis VTE Prophylaxis Intervention: other (eliquis) Lines/Catheters [facility] Saline Lock Urinary Cath still in place: No Assessment/Plan Assessment/Plan 81-year-old male with the following medical problems: 1. Endstage CHF - improved - f/u CV rec's, continue PO Hydralazine and very low dose BB, monitor 2. s/p Severe sepsis with lactic acidosis 2/2 UTI - improved now - s/p abx, monitor for now 3. Chronic kidney disease, requiring dialysis more for volume removal 2/2 # 1. UO appears minimal. - Patient needs continued HD and diuretic therapy for continued volume removal - Has now received Permacath placement - f/u renal rec's 4. Acute respiratory failure 2/2 CHF successfully extubated 09/02/16 - monitor 5. Diabetes mellitus type 2 - Titrate insulin therapy as indicated 6. Paroxysmal atrial fibrillation - rate controlled - monitor, f/u CV rec's 8. Coronary artery disease with Severe isch CM s/p CABG and AICD - monitor, f/u CV rec's 9 Chronic hypochromic anemia secondary to end-stage renal disease. - monitor H/H 10. Chronic liver cirrhosis with coagulopathy with Mild hyperbilirubinemia with transaminitis 11 Methicillin-resistant Staphylococcus aureus, nares. s/p 7 days of Bactroban 12. 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 PROPHYLAXIS: heparin/ PPI as well Subjective 24 Hr Interval Summary Free Text/Dictation mild resp distress slurred confused speech Exam/Review of Systems Vital Signs Vitals Vital Signs Date Time Temp Pulse Resp B/P Pulse Ox O2 Delivery O2 Flow Rate FiO2 09/14/16 13:00 60 20 09/14/16 11:24 97.7 106/55 100 09/14/16 08:20 Nasal Cannula 2.0 Intake and Output 09/13/16 09/13/16 09/14/16 15:00 23:00 07:00 Intake Total 900 ml 300 ml Balance 900 ml 300 ml Exam Constitutional: alert, frail Psych: confusion Head: normocephalic Eyes: PERRL, icteric Respiratory: crackles/rales, diminished breath sounds, respirations (tachypnea) Cardiovascular: irregular rhythm, murmurs/extra sounds Gastrointestinal: bowel sounds, distended, non-tender, soft Extremities: No edema Neurological: confused Results Result Diagram: 09/13/16 0525 09/14/16 0845 Results 24 hrs Laboratory Tests Test 09/13/16 18:56 09/13/16 21:38 09/14/16 07:35 09/14/16 08:45 Bedside Glucose 144 179 105 Sodium Level 122 L Potassium Level 5.5 H Chloride Level 86 L Carbon Dioxide Level 20 L Anion Gap 22 H Blood Urea Nitrogen 60 H Creatinine 2.79 H Glucose Level 78 Calcium Level 9.1 Test 09/14/16 11:29 Bedside Glucose 124 Medications Medications Current Medications Acetaminophen (Tylenol Tab) 650 mg Q6H PRN PO PAIN AND OR ELEVATED TEMP Last administered on 09/14/16 00:34; Admin Dose 650 MG; Start 08/27/16 at 23:00 Insulin Glargine (Lantus) 10 unit QAM SC Last administered on 09/14/16 10:04; Admin Dose 10 UNIT; Start 08/28/16 at 09:00 Ondansetron HCl (Zofran Inj) 4 mg Q6H PRN IV NAUSEA AND/OR VOMITING; Start at 23:00 Isosorbide Dinitrate (Isordil) 10 mg TID PO Last administered on 08/29/16 09:54 ; Admin Dose 10 MG; Start 08/28/16 at 09:00; Status Future Hold Sucralfate (Carafate) 1 gm QID PO Last administered on 09/14/16 09:40; Admin Dose 1 GM; Start 08/28/16 at 09:00 Morphine Sulfate (morphine) 2 mg Q2H PRN IV PAIN Last administered on 09/01/16 10:22; Admin Dose 2 MG; Start 09/01/16 at 01:30 Digoxin (Digoxin) 0.125 mg Q2D@13 PO Last administered on 09/13/16 15:11; Admin Dose 0.125 MG; Start 09/03/16 at 13:00 Ascorbic Acid (Vitamin C) 500 mg DAILY PO Last administered on 09/14/16 09:40 ; Admin Dose 500 MG; Start 09/03/16 at 10:30 Docusate Sodium (Colace) 200 mg QHS PO Last administered on 09/13/16 21:31; Admin Dose 200 MG; Start 09/03/16 at 21:00 Zinc Sulfate (Zinc Sulfate) 220 mg DAILY PO Last administered on 09/14/16 09: 40; Admin Dose 220 MG; Start 09/03/16 at 10:30 Multivitamins Therapeutic (Theragran) 1 tab DAILY PO Last administered on 09:40; Admin Dose 1 TAB; Start 09/03/16 at 10:30 Miscellaneous Information 1 ea NOTE XX Last administered on 09/05/16 08:52; Admin Dose 1 EA; Start 09/03/16 at 11:00 Glucose (Glutose) 15 gm Q15M PRN PO DECREASED GLUCOSE; Start 09/03/16 at 11:00 Glucose (Glutose) 22.5 gm Q15M PRN PO DECREASED GLUCOSE; Start 09/03/16 at 11:00 Dextrose (D50w Syringe) 25 ml Q15M PRN IV DECREASED GLUCOSE Last administered on 09/08/16 09:03; Admin Dose 25 ML; Start 09/03/16 at 11:00 Dextrose (D50w Syringe) 50 ml Q15M PRN IV DECREASED GLUCOSE Last administered on 09/09/16 14:48; Admin Dose 50 ML; Start 09/03/16 at 11:00 Glucagon (Glucagen) 1 mg Q15M PRN IM DECREASED GLUCOSE; Start 09/03/16 at 11:00 Glucose (Glutose) 15 gm Q15M PRN BUCCAL DECREASED GLUCOSE; Start 09/03/16 at 11: 00 Mupirocin (Bactroban) 1 applic BID TOP Last administered on 09/14/16 09:41; Admin Dose 1 APPLIC; Start 09/03/16 at 21:00 Pantoprazole (Protonix Tab) 40 mg DAILY@06 PO Last administered on 09/14/16 05 :53; Admin Dose 40 MG; Start 09/05/16 at 06:00 Hydralazine HCl (Apresoline) 10 mg Q8 PO Last administered on 09/14/16 05:54; Admin Dose 10 MG; Start 09/04/16 at 22:00 Furosemide (Lasix) 20 mg DAILY IV Last administered on 09/13/16 08:22; Admin Dose 20 MG; Start 09/05/16 at 09:01 Carvedilol (Coreg) 1.5625 mg BID PO Last administered on 09/13/16 21:33; Admin Dose 1.5625 MG; Start 09/06/16 at 21:00 Apixaban (Eliquis) 2.5 mg BID PO Last administered on 09/14/16 09:41; Admin Dose 2.5 MG; Start 09/11/16 at 10:00 BOLA SOLO Sep 14, 2016 14:55
--- NOTE | 2016-09-14 16:52 | RADRPT ---
PROCEDURE: XR Chest. CLINICAL INDICATION: Respiratory distress. TECHNIQUE: PA and Lateral views of the chest were obtained. COMPARISON: Chest x-ray 09/09/2016 12:18 p.m. FINDINGS: The soft tissues are normal. A mediastinotomy was performed. There is a dialysis catheter entering from right internal jugular approach with its tip to the right atrium. There is no pneumothorax. There is a single chamber cardiac pacemaker with electrode leads projecting at the level of the righ t ventricle. The heart is enlarged. The cardiomediastinal silhouette and hilar structures are norm al. The pulmonary vasculature is increase. There are vascular calcifications in the aortic arch. The re are bilateral mixed interstitial and alveolar infiltrates which are slightly improved. The costo phrenic angles are slightly blunted in the apex of the left diaphragm is shifted laterally. IMPRESSION: 1. Cardiomegaly with in chest of heart failure and improving mixed interstitial and alveolar infiltr ates which may reflect pulmonary edema. 2. Status post median sternotomy with a single channel cardiac pacemaker identified over the left c hest wall. There are 3 dialysis catheter entering from right internal jugular approach with its tip in the right atrium/superior vena cava junction area. 3. Small pleural effusions are suspected. 4. Old healed fracture deformity through the mid left clavicle. RPTAT:AAJJ Physician Joselyn Date Time Electronically viewed and signed by Physician Joselyn on 09/14/2016 16:51 JM/
--- NOTE | 2016-09-14 17:34 | CONS ---
Date/Time of Note Date/Time of Note DATE: 09/14/16 TIME: 17:32 Assessment/Plan Assessment/Plan Chief Complaint/Hosp Course SYSTOLIC HEART FAILURE better w hd JAZLYN ON CKD LOW EF ASHD DM HX CAD hyponatremia AICD PLACEMENT s/p anasarca PLAN hd mwf hd home soon Problems: Consultation Date/Type/Reason Admit Date/Time Aug 27, 2016 at 21:25 Initial Consult Date s/p permacath placement Type of Consultation: renal Referring Provider: BOLA SOLO 24 HR Interval Summary Constitutional: requiring O2 Exam/Review of Systems Vital Signs Vitals Vital Signs Date Time Temp Pulse Resp B/P Pulse Ox O2 Delivery O2 Flow Rate FiO2 09/14/16 16:31 60 09/14/16 15:19 97.8 20 110/53 98 09/14/16 08:20 Nasal Cannula 2.0 Intake and Output 09/13/16 09/13/16 09/14/16 15:00 23:00 07:00 Intake Total 900 ml 300 ml Balance 900 ml 300 ml Exam Neck: supple Respiratory: diminished breath sounds Cardiovascular: murmurs/extra sounds Gastrointestinal: soft Musculoskeletal: nl extremities to inspection Extremities: normal pulses Results Result Diagram: 09/13/16 0525 09/14/16 0845 Results 24 hrs Laboratory Tests Test 09/13/16 18:56 09/13/16 21:38 09/14/16 07:35 09/14/16 08:45 Bedside Glucose 144 179 105 Sodium Level 122 L Potassium Level 5.5 H Chloride Level 86 L Carbon Dioxide Level 20 L Anion Gap 22 H Blood Urea Nitrogen 60 H Creatinine 2.79 H Glucose Level 78 Calcium Level 9.1 Test 09/14/16 11:29 09/14/16 16:59 Bedside Glucose 124 151 Medications Medications Current Medications Acetaminophen (Tylenol Tab) 650 mg Q6H PRN PO PAIN AND OR ELEVATED TEMP Last administered on 09/14/16 00:34; Admin Dose 650 MG; Start 08/27/16 at 23:00 Insulin Glargine (Lantus) 10 unit QAM SC Last administered on 09/14/16 10:04; Admin Dose 10 UNIT; Start 08/28/16 at 09:00 Ondansetron HCl (Zofran Inj) 4 mg Q6H PRN IV NAUSEA AND/OR VOMITING; Start at 23:00 Isosorbide Dinitrate (Isordil) 10 mg TID PO Last administered on 08/29/16 09:54 ; Admin Dose 10 MG; Start 08/28/16 at 09:00; Status Future Hold Sucralfate (Carafate) 1 gm QID PO Last administered on 09/14/16 16:00; Admin Dose 1 GM; Start 08/28/16 at 09:00 Morphine Sulfate (morphine) 2 mg Q2H PRN IV PAIN Last administered on 09/01/16 10:22; Admin Dose 2 MG; Start 09/01/16 at 01:30 Digoxin (Digoxin) 0.125 mg Q2D@13 PO Last administered on 09/13/16 15:11; Admin Dose 0.125 MG; Start 09/03/16 at 13:00 Ascorbic Acid (Vitamin C) 500 mg DAILY PO Last administered on 09/14/16 09:40 ; Admin Dose 500 MG; Start 09/03/16 at 10:30 Docusate Sodium (Colace) 200 mg QHS PO Last administered on 09/13/16 21:31; Admin Dose 200 MG; Start 09/03/16 at 21:00 Zinc Sulfate (Zinc Sulfate) 220 mg DAILY PO Last administered on 09/14/16 09: 40; Admin Dose 220 MG; Start 09/03/16 at 10:30 Multivitamins Therapeutic (Theragran) 1 tab DAILY PO Last administered on 09:40; Admin Dose 1 TAB; Start 09/03/16 at 10:30 Miscellaneous Information 1 ea NOTE XX Last administered on 09/05/16 08:52; Admin Dose 1 EA; Start 09/03/16 at 11:00 Glucose (Glutose) 15 gm Q15M PRN PO DECREASED GLUCOSE; Start 09/03/16 at 11:00 Glucose (Glutose) 22.5 gm Q15M PRN PO DECREASED GLUCOSE; Start 09/03/16 at 11:00 Dextrose (D50w Syringe) 25 ml Q15M PRN IV DECREASED GLUCOSE Last administered on 09/08/16 09:03; Admin Dose 25 ML; Start 09/03/16 at 11:00 Dextrose (D50w Syringe) 50 ml Q15M PRN IV DECREASED GLUCOSE Last administered on 09/09/16 14:48; Admin Dose 50 ML; Start 09/03/16 at 11:00 Glucagon (Glucagen) 1 mg Q15M PRN IM DECREASED GLUCOSE; Start 09/03/16 at 11:00 Glucose (Glutose) 15 gm Q15M PRN BUCCAL DECREASED GLUCOSE; Start 09/03/16 at 11: 00 Mupirocin (Bactroban) 1 applic BID TOP Last administered on 09/14/16 09:41; Admin Dose 1 APPLIC; Start 09/03/16 at 21:00 Pantoprazole (Protonix Tab) 40 mg DAILY@06 PO Last administered on 09/14/16 05 :53; Admin Dose 40 MG; Start 09/05/16 at 06:00 Hydralazine HCl (Apresoline) 10 mg Q8 PO Last administered on 09/14/16 16:00; Admin Dose 10 MG; Start 09/04/16 at 22:00 Furosemide (Lasix) 20 mg DAILY IV Last administered on 09/13/16 08:22; Admin Dose 20 MG; Start 09/05/16 at 09:01 Carvedilol (Coreg) 1.5625 mg BID PO Last administered on 09/13/16 21:33; Admin Dose 1.5625 MG; Start 09/06/16 at 21:00 Apixaban (Eliquis) 2.5 mg BID PO Last administered on 09/14/16 09:41; Admin Dose 2.5 MG; Start 09/11/16 at 10:00 YANIRA HART MD Sep 14, 2016 17:34
--- NOTE | 2016-09-14 20:19 | PN ---
Date/Time of Note Date/Time of Note DATE: 09/14/16 TIME: 20:19 Assessment/Plan Lines/Catheters IV Catheter Type (from Nrs): Saline Lock Gan in Place (from Nrs): No Assessment/Plan Chief Complaint/Hosp Course 1. Acute renal failure s/p right IJ Permacath 09/09 -HD 2. Acute on chronic congestive heart failure with cardiomyopathy and cardiomegaly and ejection fraction of 25%. Continue cardiac optimization and judicious fluid management. 3. Anemia without evidence of acute blood loss. Continue monitoring. 4. Hypoalbuminemia. Will benefit from nutritional optimization. 5. Recent urinary tract infection and pneumonia with sepsis and shock, status post antibiotics and judicious fluid management. Improving. 6. Diabetes mellitus type 2. Continue nutrition and medication optimization. 7. Paroxysmal atrial fibrillation. Continue medical and cardiac optimization. Patient is anticoagulated. 8. Recent acute respiratory failure secondary to multiple issues. Successfully extubated on 09/02/2016. Thank you Problems: Subjective 24 Hr Interval Summary No f/c. No cough. No sz. No rash. No vomiting or nausea. No abdominal pain. No bloating. Exam/Review of Systems Vital Signs Vitals Vital Signs Date Time Temp Pulse Resp B/P Pulse Ox O2 Delivery O2 Flow Rate FiO2 09/14/16 20:11 62 09/14/16 15:19 97.8 20 110/53 98 09/14/16 08:20 Nasal Cannula 2.0 Intake and Output 09/13/16 09/13/16 09/14/16 15:00 23:00 07:00 Intake Total 900 ml 300 ml Balance 900 ml 300 ml Exam Free Text/Dictation GENERAL: No acute distress, responsive. HEENT: Pupils equal, reactive. No scleral icterus. Mucous membranes are moist. NECK: Minimal JVD. Right IJ Permacath. Supple. PULMONARY: Normal respiratory effort. No wheezing. CARDIAC: S1, S2 present. ABDOMEN: Soft, nontender. EXTREMITIES: No edema. VASCULAR: Cap refill less than 2 seconds. NEUROLOGIC: Alert, oriented, moves all 4 extremities grossly. SKIN: No rashes, no jaundice; however some decubitus stage II ulcerations. LYMPHATIC: No inguinal or cervical lymphadenopathy. Results Result Diagram: 09/13/16 0525 09/14/16 0845 GUILLERMO PRESSLEY MD Sep 14, 2016 20:19
[2016-09-14] MEDS: DOCUSATE SODIUM 100 MG CAP PO SCH (21:00)
[2016-09-15] VITALS (9 sets, daily range): BP systolic 100–114; BP diastolic 54–56; PULSE 60–62; RESP 16–18
[2016-09-15] MEDS: PANTOPRAZOLE (EC) 40 MG TAB PO SCH (05:01)
[2016-09-15] MEDS: DEXTROSE 50% 50 ML SYRINGE IV PRN (05:59)
[2016-09-15] MEDS ORDERED: LORAZEPAM 2 MG INJ IV ONE (06:30)
[2016-09-15] MEDS ORDERED: DILTIAZEM 25 MG INJ IV ONE (06:30)
[2016-09-15] MEDS ORDERED: DIPHENHYDRAMINE 50 MG INJ IV ONE (06:30)
[2016-09-15] MEDS ORDERED: DILTIAZEM-D5W 125MG/125ML DRIP 125 ML IV SCH (06:30)
[2016-09-15] MEDS ORDERED: SOD CHLORIDE 0.9% 500 ML IV ONE ×2 (06:30)
[2016-09-15] MEDS: Insulin NOVOLOG SS MILD Algorithm (SS with meals and bedtime) SC SCH ×3 (07:25→17:25)
[2016-09-15 07:52] LABS: ADD SCAN DIFF NO
[2016-09-15 07:58] LABS: ABNORMAL IP MESSAGE 1; HEMATOCRIT 30.3 % (42.0-52.0); HEMOGLOBIN 8.8 g/dl (14.0-18.0); MEAN CORPUSCULAR HEMOGLOBIN 25.7 pg (29.0-33.0); MEAN CORPUSCULAR VOLUME 88.3 fl (82.0-101.0); MEAN PLATELET VOLUME 10.7 fl (7.4-10.4); PLATELET COUNT 225 10^3/UL (140-415); RED BLOOD COUNT 3.43 10^6/ul (4.70-6.10); RED CELL DISTRIBUTION WIDTH 23.8 % (11.5-14.5)
[2016-09-15 08:14] LABS: ALBUMIN 3.5 g/dl (3.3-4.9); POTASSIUM 3.9 mmol/L (3.5-5.1)
[2016-09-15 08:16] LABS: CREATININE 2.21 mg/dl (0.61-1.24)
[2016-09-15 08:17] LABS: BILIRUBIN,INDIRECT 0.6 mg/dl (0-1.1); BILIRUBIN,TOTAL 0.6 mg/dl (0.2-1.3); TOTAL PROTEIN 6.7 g/dl (6.1-8.1)
[2016-09-15 08:47] LABS: LYMPHOCYTES # 0.4 10^3/ul (0.8-2.9); MONOCYTE # 0.4 10^3/ul (0.3-0.9); NEUTROPHIL # 6.2 10^3/ul (1.6-7.5)
[2016-09-15] MEDS: APIXABAN 5 MG TABLET PO SCH (08:51)
[2016-09-15] MEDS: SUCRALFATE 1 GM TAB PO SCH ×3 (08:51→17:00)
[2016-09-15] MEDS: FUROSEMIDE 20 MG INJ IV SCH (08:51)
[2016-09-15] MEDS: ASCORBIC ACID 500 MG TAB PO SCH (08:51)
[2016-09-15] MEDS: MULTIVITAMINS THERAPEUTIC TAB PO SCH (08:51)
[2016-09-15] MEDS: ZINC SULFATE 220 MG CAP PO SCH (08:51)
[2016-09-15] MEDS: MUPIROCIN 2% 22 GM OINT TOP SCH (08:53)
[2016-09-15] MEDS: INSULIN GLARGINE [LANtus] 3 ML PEN SC SCH (09:19)
--- NOTE | 2016-09-15 09:55 | CONS ---
Date/Time of Note Date/Time of Note DATE: 09/15/16 TIME: 09:53 Assessment/Plan Assessment/Plan Additional Assessment/Plan 1.CHF-systolic acute on chronic - better now, remove fluid with HD 2.Hypotension- better now - con't to adjust Rx as needed 3.REnal failure s/p HD - rx as needed 4.Cardiomyopathy with low EF 5.Pacer - con't to follow (pacer/paced now at 60) 6.H/O cad s/p cabg - no CP noted 7.PAF 8.Coagulopathy-overall improved 9. Resp failure-improved s/p extubation Consultation Date/Type/Reason Admit Date/Time Aug 27, 2016 at 21:25 Type of Consultation: renal Referring Provider: BOLA SOLO 24 HR Interval Summary Free Text/Dictation Better overall - more alert - 100% paced on tele ROS: No fever, no chills, no nausea, no vomiting, no diarrhea/constipation No recent weight changes No chest pain, no PND, no orthopnea No dizziness, blurred vision No thirst, no heat or cold intolerance Exam/Review of Systems Vital Signs Vitals Vital Signs Date Time Temp Pulse Resp B/P Pulse Ox O2 Delivery O2 Flow Rate FiO2 09/15/16 08:16 60 09/15/16 07:02 97.8 18 100/56 98 09/14/16 21:54 Nasal Cannula 2.0 Intake and Output 09/14/16 09/14/16 09/15/16 15:00 23:00 07:00 Intake Total 500 ml 700 ml 600 ml Output Total 3500 ml Balance -3000 ml 700 ml 600 ml Exam General: WN/WD/NAD, AOx 1-2 HEENT: Unicetric/atraumatic/EOMI (follows some commands) NECK: JVD elevated, no thyromegaly Lymph: no lymphadenopathy HEART: regular with no S3, II/ systolic murmur at apex LUNGS: Coarse sounds ABD: soft, NT, ND, +BS : Intact Neuro: non focal SKIN: chronic changes EXT: trace edema Results Result Diagram: 09/15/16 0710 09/15/16 0710 Results 24 hrs Laboratory Tests Test 09/14/16 11:29 09/14/16 16:59 09/14/16 20:10 09/14/16 21:37 Bedside Glucose 124 151 114 118 Test 09/15/16 04:48 09/15/16 05:41 09/15/16 05:58 09/15/16 06:29 Bedside Glucose 65 L 53 L 65 L 176 Test 09/15/16 07:10 09/15/16 07:50 White Blood Count 7.0 Red Blood Count 3.43 L Hemoglobin 8.8 L Hematocrit 30.3 L Mean Corpuscular Volume 88.3 Mean Corpuscular Hemoglobin 25.7 L Mean Corpuscular Hemoglobin Concent 29.0 L Red Cell Distribution Width 23.8 H Platelet Count 225 Mean Platelet Volume 10.7 H Neutrophils % 88.0 H Band Neutrophils % 1.0 Lymphocytes % 5.0 L Monocytes % 6.0 Nucleated Red Blood Cells % 14.0 H Neutrophils # 6.2 Lymphocytes # 0.4 L Monocytes # 0.4 Sodium Level 131 L Potassium Level 3.9 Chloride Level 93 L Carbon Dioxide Level 22 Anion Gap 20 H Blood Urea Nitrogen 48 #H Creatinine 2.21 H Glucose Level 114 Calcium Level 9.0 Magnesium Level 2.0 Total Bilirubin 0.6 Direct Bilirubin 0.00 Indirect Bilirubin 0.6 Aspartate Amino Transf (AST/SGOT) 30 Alanine Aminotransferase (ALT/SGPT) 24 Alkaline Phosphatase 142 H Total Protein 6.7 Albumin 3.5 Bedside Glucose 115 Medications Medications Current Medications Acetaminophen (Tylenol Tab) 650 mg Q6H PRN PO PAIN AND OR ELEVATED TEMP Last administered on 09/14/16 00:34; Admin Dose 650 MG; Start 08/27/16 at 23:00 Insulin Glargine (Lantus) 10 unit QAM SC Last administered on 09/15/16 09:19; Admin Dose 10 UNIT; Start 08/28/16 at 09:00 Ondansetron HCl (Zofran Inj) 4 mg Q6H PRN IV NAUSEA AND/OR VOMITING; Start at 23:00 Isosorbide Dinitrate (Isordil) 10 mg TID PO Last administered on 08/29/16 09:54 ; Admin Dose 10 MG; Start 08/28/16 at 09:00; Status Future Hold Sucralfate (Carafate) 1 gm QID PO Last administered on 09/15/16 08:51; Admin Dose 1 GM; Start 08/28/16 at 09:00 Morphine Sulfate (morphine) 2 mg Q2H PRN IV PAIN Last administered on 09/01/16 10:22; Admin Dose 2 MG; Start 09/01/16 at 01:30 Digoxin (Digoxin) 0.125 mg Q2D@13 PO Last administered on 09/13/16 15:11; Admin Dose 0.125 MG; Start 09/03/16 at 13:00 Ascorbic Acid (Vitamin C) 500 mg DAILY PO Last administered on 09/15/16 08:51 ; Admin Dose 500 MG; Start 09/03/16 at 10:30 Docusate Sodium (Colace) 200 mg QHS PO Last administered on 09/13/16 21:31; Admin Dose 200 MG; Start 09/03/16 at 21:00 Zinc Sulfate (Zinc Sulfate) 220 mg DAILY PO Last administered on 09/15/16 08: 51; Admin Dose 220 MG; Start 09/03/16 at 10:30 Multivitamins Therapeutic (Theragran) 1 tab DAILY PO Last administered on 08:51; Admin Dose 1 TAB; Start 09/03/16 at 10:30 Miscellaneous Information 1 ea NOTE XX Last administered on 09/05/16 08:52; Admin Dose 1 EA; Start 09/03/16 at 11:00 Glucose (Glutose) 15 gm Q15M PRN PO DECREASED GLUCOSE; Start 09/03/16 at 11:00 Glucose (Glutose) 22.5 gm Q15M PRN PO DECREASED GLUCOSE Last administered on 04:59; Admin Dose 22.5 GM; Start 09/03/16 at 11:00 Dextrose (D50w Syringe) 25 ml Q15M PRN IV DECREASED GLUCOSE Last administered on 09/15/16 05:59; Admin Dose 25 ML; Start 09/03/16 at 11:00 Dextrose (D50w Syringe) 50 ml Q15M PRN IV DECREASED GLUCOSE Last administered on 09/09/16 14:48; Admin Dose 50 ML; Start 09/03/16 at 11:00 Glucagon (Glucagen) 1 mg Q15M PRN IM DECREASED GLUCOSE; Start 09/03/16 at 11:00 Glucose (Glutose) 15 gm Q15M PRN BUCCAL DECREASED GLUCOSE; Start 09/03/16 at 11: 00 Mupirocin (Bactroban) 1 applic BID TOP Last administered on 09/15/16 08:53; Admin Dose 1 APPLIC; Start 09/03/16 at 21:00 Pantoprazole (Protonix Tab) 40 mg DAILY@06 PO Last administered on 09/15/16 05 :01; Admin Dose 40 MG; Start 09/05/16 at 06:00 Hydralazine HCl (Apresoline) 10 mg Q8 PO Last administered on 09/14/16 16:00; Admin Dose 10 MG; Start 09/04/16 at 22:00 Furosemide (Lasix) 20 mg DAILY IV Last administered on 09/13/16 08:22; Admin Dose 20 MG; Start 09/05/16 at 09:01 Carvedilol (Coreg) 1.5625 mg BID PO Last administered on 09/13/16 21:33; Admin Dose 1.5625 MG; Start 09/06/16 at 21:00 Apixaban (Eliquis) 2.5 mg BID PO Last administered on 09/15/16 08:51; Admin Dose 2.5 MG; Start 09/11/16 at 10:00 DODIE OLMSTEAD MD Sep 15, 2016 09:55
--- NOTE | 2016-09-15 10:39 | PN ---
Date/Time of Note Date/Time of Note DATE: 09/15/16 TIME: 10:36 Assessment/Plan VTE Prophylaxis VTE Prophylaxis Intervention: heparin Lines/Catheters IV [facility] Saline Lock Urinary Cath still in place: No Assessment/Plan Assessment/Plan 81-year-old male with the following medical problems: 1. Endstage CHF - improved - f/u CV rec's, continue PO Hydralazine and very low dose BB, monitor 2. s/p Severe sepsis with lactic acidosis 2/2 PNA UTI - improved now - s/p abx, monitor for now 3. Chronic kidney disease, requiring dialysis more for volume removal 2/2 # 1. UO appears minimal. - Patient needs continued HD and diuretic therapy for continued volume removal - Has now received Permacath placement - f/u renal rec's 4. Acute respiratory failure 2/2 CHF successfully extubated 09/02/16 - monitor 5. Diabetes mellitus type 2 - Titrate insulin therapy as indicated 6. Paroxysmal atrial fibrillation - rate controlled - monitor, f/u CV rec's 8. Coronary artery disease with Severe isch CM s/p CABG and AICD - monitor, f/u CV rec's 9 Chronic hypochromic anemia secondary to end-stage renal disease. - monitor H/H 10. Chronic liver cirrhosis with coagulopathy with Mild hyperbilirubinemia with transaminitis 11 Methicillin-resistant Staphylococcus aureus, nares. s/p 7 days of Bactroban 12. Severe debility 13. Bilateral Pneumonia s/p treatment: CXR shows improving infiltrates Dispo: Patient is planned for discharge with family and outpt dialysis is being setup. 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 PROPHYLAXIS: heparin/ PPI as well Subjective 24 Hr Interval Summary Free Text/Dictation looks much better today , c/o constipation, more lucid Exam/Review of Systems Vital Signs Vitals Vital Signs Date Time Temp Pulse Resp B/P Pulse Ox O2 Delivery O2 Flow Rate FiO2 09/15/16 08:16 60 09/15/16 07:02 97.8 18 100/56 98 09/14/16 21:54 Nasal Cannula 2.0 Intake and Output 09/14/16 09/14/16 09/15/16 15:00 23:00 07:00 Intake Total 500 ml 700 ml 600 ml Output Total 3500 ml Balance -3000 ml 700 ml 600 ml Exam Constitutional: alert, frail Psych: more lucid Head: normocephalic, whitish coat on tongue Eyes: PERRL, icteric Respiratory: crackles/rales, diminished breath sounds, respirations (tachypnea) Cardiovascular: irregular rhythm, murmurs/extra sounds Gastrointestinal: bowel sounds, distended, non-tender, soft Extremities: No edema Neurological: more lucid Results Result Diagram: 09/15/16 0710 09/15/16 0710 Results 24 hrs Laboratory Tests Test 09/14/16 11:29 09/14/16 16:59 09/14/16 20:10 09/14/16 21:37 Bedside Glucose 124 151 114 118 Test 09/15/16 04:48 09/15/16 05:41 09/15/16 05:58 09/15/16 06:29 Bedside Glucose 65 L 53 L 65 L 176 Test 09/15/16 07:10 09/15/16 07:50 White Blood Count 7.0 Red Blood Count 3.43 L Hemoglobin 8.8 L Hematocrit 30.3 L Mean Corpuscular Volume 88.3 Mean Corpuscular Hemoglobin 25.7 L Mean Corpuscular Hemoglobin Concent 29.0 L Red Cell Distribution Width 23.8 H Platelet Count 225 Mean Platelet Volume 10.7 H Neutrophils % 88.0 H Band Neutrophils % 1.0 Lymphocytes % 5.0 L Monocytes % 6.0 Nucleated Red Blood Cells % 14.0 H Neutrophils # 6.2 Lymphocytes # 0.4 L Monocytes # 0.4 Sodium Level 131 L Potassium Level 3.9 Chloride Level 93 L Carbon Dioxide Level 22 Anion Gap 20 H Blood Urea Nitrogen 48 #H Creatinine 2.21 H Glucose Level 114 Calcium Level 9.0 Magnesium Level 2.0 Total Bilirubin 0.6 Direct Bilirubin 0.00 Indirect Bilirubin 0.6 Aspartate Amino Transf (AST/SGOT) 30 Alanine Aminotransferase (ALT/SGPT) 24 Alkaline Phosphatase 142 H Total Protein 6.7 Albumin 3.5 Bedside Glucose 115 Medications Medications Current Medications Acetaminophen (Tylenol Tab) 650 mg Q6H PRN PO PAIN AND OR ELEVATED TEMP Last administered on 09/14/16t 00:34; Admin Dose 650 MG; Start 08/27/16 at 23:00 Insulin Glargine (Lantus) 10 unit QAM SC Last administered on 09/15/16 09:19; Admin Dose 10 UNIT; Start 08/28/16 at 09:00 Ondansetron HCl (Zofran Inj) 4 mg Q6H PRN IV NAUSEA AND/OR VOMITING; Start at 23:00 Isosorbide Dinitrate (Isordil) 10 mg TID PO Last administered on 08/29/16 09:54 ; Admin Dose 10 MG; Start 08/28/16 at 09:00; Status Future Hold Sucralfate (Carafate) 1 gm QID PO Last administered on 09/15/16 08:51; Admin Dose 1 GM; Start 08/28/16 at 09:00 Morphine Sulfate (morphine) 2 mg Q2H PRN IV PAIN Last administered on 09/01/16 10:22; Admin Dose 2 MG; Start 09/01/16 at 01:30 Digoxin (Digoxin) 0.125 mg Q2D@13 PO Last administered on 09/13/16 15:11; Admin Dose 0.125 MG; Start 09/03/16 at 13:00 Ascorbic Acid (Vitamin C) 500 mg DAILY PO Last administered on 09/15/16 08:51 ; Admin Dose 500 MG; Start 09/03/16 at 10:30 Docusate Sodium (Colace) 200 mg QHS PO Last administered on 09/13/16 21:31; Admin Dose 200 MG; Start 09/03/16 at 21:00 Zinc Sulfate (Zinc Sulfate) 220 mg DAILY PO Last administered on 09/15/16 08: 51; Admin Dose 220 MG; Start 09/03/16 at 10:30 Multivitamins Therapeutic (Theragran) 1 tab DAILY PO Last administered on 08:51; Admin Dose 1 TAB; Start 09/03/16 at 10:30 Miscellaneous Information 1 ea NOTE XX Last administered on 09/05/16 08:52; Admin Dose 1 EA; Start 09/03/16 at 11:00 Glucose (Glutose) 15 gm Q15M PRN PO DECREASED GLUCOSE; Start 09/03/16 at 11:00 Glucose (Glutose) 22.5 gm Q15M PRN PO DECREASED GLUCOSE Last administered on 04:59; Admin Dose 22.5 GM; Start 09/03/16 at 11:00 Dextrose (D50w Syringe) 25 ml Q15M PRN IV DECREASED GLUCOSE Last administered on 09/15/16 05:59; Admin Dose 25 ML; Start 09/03/16 at 11:00 Dextrose (D50w Syringe) 50 ml Q15M PRN IV DECREASED GLUCOSE Last administered on 09/09/16 14:48; Admin Dose 50 ML; Start 09/03/16 at 11:00 Glucagon (Glucagen) 1 mg Q15M PRN IM DECREASED GLUCOSE; Start 09/03/16 at 11:00 Glucose (Glutose) 15 gm Q15M PRN BUCCAL DECREASED GLUCOSE; Start 09/03/16 at 11: 00 Mupirocin (Bactroban) 1 applic BID TOP Last administered on 09/15/16 08:53; Admin Dose 1 APPLIC; Start 09/03/16 at 21:00 Pantoprazole (Protonix Tab) 40 mg DAILY@06 PO Last administered on 09/15/16 05 :01; Admin Dose 40 MG; Start 09/05/16 at 06:00 Hydralazine HCl (Apresoline) 10 mg Q8 PO Last administered on 09/14/16 16:00; Admin Dose 10 MG; Start 09/04/16 at 22:00 Furosemide (Lasix) 20 mg DAILY IV Last administered on 09/13/16 08:22; Admin Dose 20 MG; Start 09/05/16 at 09:01 Carvedilol (Coreg) 1.5625 mg BID PO Last administered on 09/13/16 21:33; Admin Dose 1.5625 MG; Start 09/06/16 at 21:00 Apixaban (Eliquis) 2.5 mg BID PO Last administered on 09/15/16 08:51; Admin Dose 2.5 MG; Start 09/11/16 at 10:00 Procedures Procedures PROCEDURE: XR Chest. CLINICAL INDICATION: Respiratory distress. TECHNIQUE: PA and Lateral views of the chest were obtained. COMPARISON: Chest x-ray 09/09/2016 12:18 p.m. FINDINGS: The soft tissues are normal. A mediastinotomy was performed. There is a dialysis catheter entering from right internal jugular approach with its tip to the right atrium. There is no pneumothorax. There is a single chamber cardiac pacemaker with electrode leads projecting at the level of the right ventricle. The heart is enlarged. The cardiomediastinal silhouette and hilar structures are normal. The pulmonary vasculature is increase. There are vascular calcifications in the aortic arch. There are bilateral mixed interstitial and alveolar infiltrates which are slightly improved. The costophrenic angles are slightly blunted in the apex of the left diaphragm is shifted laterally. IMPRESSION: 1. Cardiomegaly with in chest of heart failure and improving mixed interstitial and alveolar infiltrates which may reflect pulmonary edema. 2. Status post median sternotomy with a single channel cardiac pacemaker identified over the left chest wall. There are 3 dialysis catheter entering from right internal jugular approach with its tip in the right atrium/superior vena cava junction area. 3. Small pleural effusions are suspected. 4. Old healed fracture deformity through the mid left clavicle. RPTAT:AAJJ Physician Joselyn Date Time Electronically viewed and signed by Nikhil Olguin Physician on 09/14/2016 16:51 JM/ CC: BOLA SOLO BOLATITO M. Sep 15, 2016 10:39
--- NOTE | 2016-09-15 13:22 | PN ---
Date/Time of Note Date/Time of Note DATE: 09/15/16 TIME: 13:22 Assessment/Plan Lines/Catheters IV Catheter Type (from [facility]): Saline Lock Gan in Place (from [facility]): No Assessment/Plan Chief Complaint/Hosp Course 1. Acute renal failure s/p right IJ Permacath 09/09 -HD 2. Acute on chronic congestive heart failure with cardiomyopathy and cardiomegaly and ejection fraction of 25%. Continue cardiac optimization and judicious fluid management. 3. Anemia without evidence of acute blood loss. Continue monitoring. 4. Hypoalbuminemia. Will benefit from nutritional optimization. 5. Recent urinary tract infection and pneumonia with sepsis and shock, status post antibiotics and judicious fluid management. Improving. 6. Diabetes mellitus type 2. Continue nutrition and medication optimization. 7. Paroxysmal atrial fibrillation. Continue medical and cardiac optimization. Patient is anticoagulated. Thank you Problems: Subjective 24 Hr Interval Summary No f/c. No cough. No sz. No rash. No vomiting or nausea. No abdominal pain. No bloating. Exam/Review of Systems Vital Signs Vitals Vital Signs Date Time Temp Pulse Resp B/P Pulse Ox O2 Delivery O2 Flow Rate FiO2 09/15/16 12:16 60 09/15/16 11:30 98.7 18 114/54 100 09/15/16 08:30 Nasal Cannula 2.0 Intake and Output 09/14/16 09/14/16 09/15/16 15:00 23:00 07:00 Intake Total 500 ml 700 ml 600 ml Output Total 3500 ml Balance -3000 ml 700 ml 600 ml Exam Free Text/Dictation GENERAL: No acute distress, responsive. HEENT: Pupils equal, reactive. No scleral icterus. Mucous membranes are moist. NECK: Minimal JVD. Right IJ Permacath. Supple. PULMONARY: Normal respiratory effort. No wheezing. CARDIAC: S1, S2 present. ABDOMEN: Soft, nontender. EXTREMITIES: No edema. VASCULAR: Cap refill less than 2 seconds. NEUROLOGIC: Alert, oriented, moves all 4 extremities grossly. SKIN: No rashes, no jaundice; however some decubitus stage II ulcerations. LYMPHATIC: No inguinal or cervical lymphadenopathy. Results Result Diagram: 09/15/16 0710 09/15/16 0710 GUILLERMO PRESSLEY MD Sep 15, 2016 13:22
[2016-09-15] MEDS ORDERED: MAGNESIUM CITRATE 300 ML BTL PO SCH (14:30)
[2016-09-15] MEDS: DIGOXIN 0.125 MG TAB PO SCH (14:54)
--- NOTE | 2016-09-15 17:56 | DS ---
DATE OF ADMISSION: 08/27/2016 DATE OF DISCHARGE: 09/15/2016 FINAL DIAGNOSES: 1. End-stage congestive heart failure, improved. 2. Severe sepsis with lactic acidosis secondary to pneumonia, urinary tract infection, now resolved . 3. Chronic kidney disease on hemodialysis 3 times a week. 4. Acute respiratory failure secondary to congestive heart failure, successfully extubated, now res olved. Stable on room air. 5. Diabetes mellitus type 2. 6. Paroxysmal atrial fibrillation, rate controlled. 7. 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 8. 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 9. Chronic liver cirrhosis with coagulopathy and mild hyperbilirubinemia and transaminitis. 10. Methicillin-resistant Staphylococcus aureus nares, status post treatment. 11. Severe debility. 12. Bilateral pneumonia, status post treatment. DISPOSITION: To home with home health therapy with the family. LONG-TERM PROGNOSIS: Poor. The patient does not have a lot of reserves and is high risk for readmi ssion. DISCHARGE DIET: Renal, low cholesterol, low fat. ACTIVITY: As tolerated. The patient is to be discharged home with home health for physical therapy . HOSPITALIZATION COURSE: Full details are available in chart for review. In summary, this patient w as sent to us from a correction where he was discharged from this facility because of severe short ness of breath. Of note is that the patient had had a prolonged hospitalization before that, where he was admitted for pneumonia and renal failure. However, his renal failure improved and at time of discharge to the correction, he was taken off of dialysis because his renal function seemed to be better. However, after about a week off dialysis, the patient developed swelling in his extremitie s, respiratory distress and was brought in emergently to the ER. In the ER, he had to be intubated and dialysis had to be re-commenced during this hospitalization. He was also found to have continue d bilateral infiltrates and was found to be septic and eventually was diagnosed with bilateral pneum onia as well as E. coli urinary tract infection. He was in the ICU until weaned off the ventilator and eventually extubated after which he was transferred to telemetry floor for further management an d monitoring. Cardiology was consulted on the case as well because of the patient's chronic CHF as well as cardiomyopathy and he followed throughout the patient's hospitalization. The patient has improved but still is very delicate. He is being sent home with his family at their request because they did not enjoy the experience at the correction, but I have stressed the fact that the patient remains quite delicate and is very high risk for readmission. The patient might b enefit from hospice care. However, the family has chosen not to pursue this at this time. His marie rbidities were all managed as per medical records. Overall time spent speaking with the family and discharge planning so far today has been more than 4 0 minutes. CONSULTS ON THE CASE: Dr. Elroy Hernandez and Dr. Kevon Betts for cardiology, Dr. Pedro Lamar for di alysis, Dr. Tremayne Fields for surgery. Dr. Fields placed the patient's right IJ PermCath 08/31/19 17 for ongoing dialysis. He has remained stable and as mentioned earlier is being discharged home t o his family's care for further outpatient care and management. Dictated By: BOLA SOLO MD, BA/SHAHANA Conf#: [id number] DID#: [id number]
--- NOTE | 2016-09-15 18:09 | CONS ---
Date/Time of Note Date/Time of Note DATE: 09/15/16 TIME: 18:08 Assessment/Plan Assessment/Plan Chief Complaint/Hosp Course SYSTOLIC HEART FAILURE better w hd JAZLYN ON CKD LOW EF ASHD DM HX CAD hyponatremia AICD PLACEMENT s/p anasarca PLAN hd mwf hd home soon Problems: Consultation Date/Type/Reason Admit Date/Time Aug 27, 2016 at 21:25 Initial Consult Date s/p permacath placement Type of Consultation: renal Referring Provider: BOLA SOLO 24 HR Interval Summary Constitutional: no complaints Exam/Review of Systems Vital Signs Vitals Vital Signs Date Time Temp Pulse Resp B/P Pulse Ox O2 Delivery O2 Flow Rate FiO2 09/15/16 16:15 60 09/15/16 15:24 98.8 18 108/55 99 09/15/16 08:30 Nasal Cannula 2.0 Intake and Output 09/14/16 09/14/16 09/15/16 15:00 23:00 07:00 Intake Total 500 ml 700 ml 600 ml Output Total 3500 ml Balance -3000 ml 700 ml 600 ml Exam Neck: supple Respiratory: clear to auscultation Gastrointestinal: bowel sounds (+) Extremities: edema (+) Results Result Diagram: 09/15/16 0710 09/15/16 0710 Results 24 hrs Laboratory Tests Test 09/14/16 20:10 09/14/16 21:37 09/15/16 04:48 09/15/16 05:41 Bedside Glucose 114 118 65 L 53 L Test 09/15/16 05:58 09/15/16 06:29 09/15/16 07:10 09/15/16 07:50 Bedside Glucose 65 L 176 115 White Blood Count 7.0 Red Blood Count 3.43 L Hemoglobin 8.8 L Hematocrit 30.3 L Mean Corpuscular Volume 88.3 Mean Corpuscular Hemoglobin 25.7 L Mean Corpuscular Hemoglobin Concent 29.0 L Red Cell Distribution Width 23.8 H Platelet Count 225 Mean Platelet Volume 10.7 H Neutrophils % 88.0 H Band Neutrophils % 1.0 Lymphocytes % 5.0 L Monocytes % 6.0 Nucleated Red Blood Cells % 14.0 H Neutrophils # 6.2 Lymphocytes # 0.4 L Monocytes # 0.4 Sodium Level 131 L Potassium Level 3.9 Chloride Level 93 L Carbon Dioxide Level 22 Anion Gap 20 H Blood Urea Nitrogen 48 #H Creatinine 2.21 H Glucose Level 114 Calcium Level 9.0 Magnesium Level 2.0 Total Bilirubin 0.6 Direct Bilirubin 0.00 Indirect Bilirubin 0.6 Aspartate Amino Transf (AST/SGOT) 30 Alanine Aminotransferase (ALT/SGPT) 24 Alkaline Phosphatase 142 H Total Protein 6.7 Albumin 3.5 Test 09/15/16 11:27 09/15/16 17:42 Bedside Glucose 136 103 Medications Medications Current Medications Acetaminophen (Tylenol Tab) 650 mg Q6H PRN PO PAIN AND OR ELEVATED TEMP Last administered on 09/14/16 00:34; Admin Dose 650 MG; Start 08/27/16 at 23:00 Insulin Glargine (Lantus) 10 unit QAM SC Last administered on 09/15/16 09:19; Admin Dose 10 UNIT; Start 08/28/16 at 09:00 Ondansetron HCl (Zofran Inj) 4 mg Q6H PRN IV NAUSEA AND/OR VOMITING; Start at 23:00 Isosorbide Dinitrate (Isordil) 10 mg TID PO Last administered on 08/29/16 09:54 ; Admin Dose 10 MG; Start 08/28/16 at 09:00; Status Future Hold Sucralfate (Carafate) 1 gm QID PO Last administered on 09/15/16 14:54; Admin Dose 1 GM; Start 08/28/16 at 09:00 Morphine Sulfate (morphine) 2 mg Q2H PRN IV PAIN Last administered on 09/01/16 10:22; Admin Dose 2 MG; Start 09/01/16 at 01:30 Digoxin (Digoxin) 0.125 mg Q2D@13 PO Last administered on 09/15/16 14:54; Admin Dose 0.125 MG; Start 09/03/16 at 13:00 Ascorbic Acid (Vitamin C) 500 mg DAILY PO Last administered on 09/15/16 08:51 ; Admin Dose 500 MG; Start 09/03/16 at 10:30 Docusate Sodium (Colace) 200 mg QHS PO Last administered on 09/13/16 21:31; Admin Dose 200 MG; Start 09/03/16 at 21:00 Zinc Sulfate (Zinc Sulfate) 220 mg DAILY PO Last administered on 09/15/16 08: 51; Admin Dose 220 MG; Start 09/03/16 at 10:30 Multivitamins Therapeutic (Theragran) 1 tab DAILY PO Last administered on 08:51; Admin Dose 1 TAB; Start 09/03/16 at 10:30 Miscellaneous Information 1 ea NOTE XX Last administered on 09/05/16 08:52; Admin Dose 1 EA; Start 09/03/16 at 11:00 Glucose (Glutose) 15 gm Q15M PRN PO DECREASED GLUCOSE; Start 09/03/16 at 11:00 Glucose (Glutose) 22.5 gm Q15M PRN PO DECREASED GLUCOSE Last administered on 04:59; Admin Dose 22.5 GM; Start 09/03/16 at 11:00 Dextrose (D50w Syringe) 25 ml Q15M PRN IV DECREASED GLUCOSE Last administered on 09/15/16 05:59; Admin Dose 25 ML; Start 09/03/16 at 11:00 Dextrose (D50w Syringe) 50 ml Q15M PRN IV DECREASED GLUCOSE Last administered on 09/09/16 14:48; Admin Dose 50 ML; Start 09/03/16 at 11:00 Glucagon (Glucagen) 1 mg Q15M PRN IM DECREASED GLUCOSE; Start 09/03/16 at 11:00 Glucose (Glutose) 15 gm Q15M PRN BUCCAL DECREASED GLUCOSE; Start 09/03/16 at 11: 00 Mupirocin (Bactroban) 1 applic BID TOP Last administered on 09/15/16 08:53; Admin Dose 1 APPLIC; Start 09/03/16 at 21:00 Pantoprazole (Protonix Tab) 40 mg DAILY@06 PO Last administered on 09/15/16 05 :01; Admin Dose 40 MG; Start 09/05/16 at 06:00 Hydralazine HCl (Apresoline) 10 mg Q8 PO Last administered on 09/15/16 14:56; Admin Dose 10 MG; Start 09/04/16 at 22:00 Furosemide (Lasix) 20 mg DAILY IV Last administered on 09/13/16 08:22; Admin Dose 20 MG; Start 09/05/16 at 09:01 Carvedilol (Coreg) 1.5625 mg BID PO Last administered on 09/13/16 21:33; Admin Dose 1.5625 MG; Start 09/06/16 at 21:00 Apixaban (Eliquis) 2.5 mg BID PO Last administered on 09/15/16t 08:51; Admin Dose 2.5 MG; Start 09/11/16 at 10:00 YANIRA HART MD Sep 15, 2016 18:09
== END 2016-09-15 19:15 | disposition home health service (06) | DRG 871 ==
LOC: E/R 16:49 → MS4 21:25 → TEL 23:32 → ICU 08-29 17:12 → MS4 09-03 15:34 → TEL 09-04 22:28
PROVIDERS: ADMIT Internal Medicine; ATTEND Internal Medicine
PROC: 05HM33Z Insertion of Infusion Device into Right Internal Jugular Vein, Percutaneous Approach (ICD-10-PCS; principal; 2016-08-29)
PROC: 5A1945Z Respiratory Ventilation, 24-96 Consecutive Hours (ICD-10-PCS; 2016-08-29)
PROC: 0BH18EZ Insertion of Endotracheal Airway into Trachea, Via Natural or Artificial Opening Endoscopic (ICD-10-PCS; 2016-08-29)
PROC: 02HV33Z Insertion of Infusion Device into Superior Vena Cava, Percutaneous Approach (ICD-10-PCS; 2016-09-09)
DX: A41.9 Sepsis, unspecified organism (principal); R65.21 Severe sepsis with septic shock; J96.02 Acute respiratory failure with hypercapnia; K72.00 Acute and subacute hepatic failure without coma; J18.9 Pneumonia, unspecified organism; I50.23 Acute on chronic systolic (congestive) heart failure; G93.40 Encephalopathy, unspecified; N17.9 Acute kidney failure, unspecified; N18.6 End stage renal disease; E87.2 Acidosis; N39.0 Urinary tract infection, site not specified; I13.2 Hypertensive heart and chronic kidney disease with heart failure and with stage 5 chronic kidney disease, or end stage renal disease; J21.9 Acute bronchiolitis, unspecified; E87.1 Hypo-osmolality and hyponatremia; I48.0 Paroxysmal atrial fibrillation; I25.5 Ischemic cardiomyopathy; I25.10 Atherosclerotic heart disease of native coronary artery without angina pectoris; D63.1 Anemia in chronic kidney disease; K74.60 Unspecified cirrhosis of liver; R53.81 Other malaise; B96.20 Unspecified Escherichia coli [E. coli] as the cause of diseases classified elsewhere; E11.22 Type 2 diabetes mellitus with diabetic chronic kidney disease; E87.6 Hypokalemia; E88.09 Other disorders of plasma-protein metabolism, not elsewhere classified; Z95.810 Presence of automatic (implantable) cardiac defibrillator; Z95.1 Presence of aortocoronary bypass graft; Z22.322 Carrier or suspected carrier of Methicillin resistant Staphylococcus aureus
CPT/HCPCS: 31500; 36415; 36430; 36600; 71010; 74176; 80048; 80053; 80076; 80162; 80202; 81001; 81003; 82550; 82553; 82803; 82962; 83605; 83735; 83880; 84132; 84484; 85025; 85610; 85730; 86704; 86709; 86803; 86850; 86900; 86901; 87040; 87081; 87086; 87340; 90935; 92526; 92610; 93005; 93306; 94002; 94003; 94770; 96374; 96375; 97110; 97116; 97163; 97530; J1940; C1752; C9113; J0690; J0692; J0743; J1644; J1815; J2250; J2270; J2597; J3010; J3370; J3475; J3480; J7040; J7050; J7060; J7070; P9047; P9059; Q9967

== ENCOUNTER 2016-09-19 12:24 | Inpatient (IN) | payer MEDICARE, OTHER ==
[~2016-09-19] VITALS: Ht 157.5 cm; Wt 74.0 kg
[2016-09-19] VITALS (10 sets, daily range): BP systolic 103–113; BP diastolic 38–42; PULSE 60–66; RESP 16; TEMP 96.1
[~2016-09-19 12:24] MED LIST changes: +ACET325T33 PO; +ALBU2.5V3 NEB; -AMIO200T2 PO; +APIX2.5T PO; -APIX5TAB PO; +ASC500 PO; -ASPI-664 PO; +ASPI81TA3 PO; +BISA10SU75 PR; +CARV3.1260 PO; -CARV6.2579 PO; +CRAN425C PO; +DIGO125T PO; +DOCU-144 PO; +FLEETPED PR; +HYDR-3670 PO; -ISOS10TA2 PO; +LEVA0.634 INHALATION; -LISI2.5T59 PO; +MAGN400O4 PO; +MULT-105 PO; -OMEP40CA6 PO; +PANT40TA3 PO; -SUCR1TAB56 PO; +UDROBAC PO; +ZINC220T PO
--- NOTE | 2016-09-19 12:43 | ERA ---
ER Documentation Chief Complaint Date/Time DATE: 09/19/16 TIME: 12:43 Chief Complaint BIB FAMILY FOR EVAL OF LOW B/P. PT JUST FINISHED HD TODAY. HPI 81-year-old man brought in by family members for low blood pressure after finishing up dialysis today. Patient has a recent history of hemodialysis and was just discharged from this hospital a few days ago for acute respiratory failure and sepsis. During this last admission patient was intubated and there was difficulty weaning the patient. Since discharge she has had no fevers or chills, no vomiting or diarrhea although family members state for the last 12 hours he has had a depressed mental status and has been less interactive. Patient is normally bedbound. HPI supplemented by reviewing past medical history, speaking to family members, and nursing staff. ROS All systems reviewed and are negative except as per history of present illness. Medications Home Meds Active Scripts Digoxin* (Digitek*) 125 Mcg Tablet, 0.125 MG PO Q2D@13, #15 TAB 2 Refills Prov:THERESA RIVERA S. 09/11/16 Hydralazine Hcl* (Hydralazine Hcl*) 10 Mg Tablet, 10 MG PO Q8, #90 TAB 2 Refills Prov:THERESA RIVERA S. 09/11/16 Carvedilol* (Carvedilol*) 3.125 Mg Tablet, 1.5625 MG PO BID for 30 Days, #60 TAB 3 Refills Prov:THERESA RIVERA S. 09/11/16 Sucralfate (Carafate) 1 Gm Tablet, 1 GM NGT QID for 1 Day, TAB Prov:HAKAN REINA MD 08/17/16 Reported Medications Albuterol Sulfate* (Albuterol Sulfate* Neb) 0.083%-3 Ml Neb, 2.5 MG NEB Q6H Y for WHEEZING AND SOB, #30 VIAL 08/27/16 Levalbuterol Hcl* (Levalbuterol Hcl*) 0.63 Mg/3 Ml Vial.neb, 0.63 MG INHALATION Q6H Y for WHEEZING AND SOB, VIAL 08/27/16 Sod Phosphate/Sod Biphosphate* (Fleet* Enema Pediatric) 66.6 Ml Soln, 66.6 ML WI Q2DAYS Y for CONSTIPATION, ENEMA 08/27/16 Apixaban* (Eliquis*) 2.5 Mg Tablet, 2.5 MG PO BID, TAB 08/27/16 Bisacodyl* (Bisacodyl*) 10 Mg Supp, 10 MG WI Q24H Y for PRN, SUPP 08/27/16 Cranberry Extract (Cranberry) 425 Mg Capsule, 425 MG PO BID, CAP 08/27/16 Docusate Sodium* (Colace*) 100 Mg Capsule, 200 MG PO QHS, #30 CAP 08/27/16 Aspirin* (Aspirin* Chew) 81 Mg Tab.chew, 81 MG PO DAILY, TAB.CHEW 08/27/16 Magnesium Hydroxide* (Milk Of Magnesia*) 400 Mg/5 Ml Oral.susp, 30 ML PO Q24H Y for HS, ML 08/27/16 Multivitamin with Minerals (Multivitamins with Minerals) 1 Each Tablet, 1 EACH PO DAILY, TAB 08/27/16 Pantoprazole* (Protonix*) 40 Mg Tablet.dr, 40 MG PO DAILY, TAB 08/27/16 Guaifenesin-Codeine Phosphate* (Robitussin* AC) 5 Ml Syrup, 10 ML PO Q4H Y for COUGH, ML 08/27/16 Acetaminophen* (Tylenol*) 325 Mg Tablet, 650 MG PO Q4H Y for MILD PAIN LEVEL 1-3 , TAB FOR FEVER 100 AND ABOVE 08/27/16 Ascorbic Acid (Vitamin C) 500 Mg Tab, 500 MG PO DAILY, TAB 08/27/16 Zinc Sulfate* (Zinc Sulfate*) 220 Mg Tablet, 220 MG PO DAILY, TAB 08/27/16 Nitroglycerin* (Nitrostat*) 0.4 Mg Tab.subl, 0.4 MG SL DAILY Y for CHEST PAIN, BOTTLE 05/27/16 Furosemide* (Lasix*) 40 Mg Tablet, 40 MG PO DAILY, TAB HOLD IF SBP BELOW 110 OR HR BELOW 60 10/16/15 Metformin* (Glucophage*) 500 Mg Tab, 500 MG PO BID, TAB 09/11/14 Allergies Allergies: Coded Allergies: dipyrone (Verified Allergy, Unknown, BRUISES, 08/27/16) ALLERGY FROM [place] PMhx/Soc Congestive heart failure, end-stage kidney disease hemodialysis dependent, AICD placement, hyponatremia, diabetes mellitus, hypertension, coronary artery disease, recently intubated, recent sepsis secondary to pneumonia and urinary tract infection, post CABG, end-stage liver disease with cirrhosis, paroxysmal atrial fibrillation, severe debility and bedbound state, anemia Anesthesia Reaction: No Hx Neurological Disorder: No Hx Respiratory Disorders: Yes (Fluid overload) Hx Cardiac Disorders: Yes (3 bipass heart, pacemaker. CHF) Hx Psychiatric Problems: No Hx Miscellaneous Medical Probl: Yes (ischemic cardiomyopahty,CHF,DM type2, CABG ,anasarca,CABG) Hx Alcohol Use: No Hx Substance Use: No Hx Tobacco Use: No Smoking Status: Never smoker FmHx Family History: No diabetes Physical Exam Vitals Vital Signs Date Time Temp Pulse Resp B/P Pulse Ox O2 Delivery O2 Flow Rate FiO2 09/19/16 16:22 40 09/19/16 15:57 16 98 50 09/19/16 15:30 96.1 61 20 103/50 100 Mechanical Ventilator 09/19/16 15:00 65 20 98/54 100 Mechanical Ventilator 09/19/16 14:05 60 20 93/54 100 Mechanical Ventilator 09/19/16 12:30 16 100 100 09/19/16 12:30 97.9 83 19 90/41 100 Physical Exam GENERAL: Elderly, chronically debilitated man, afebrile, dyspneic HEENT: Dry mucous membranes, pale conjunctival, no cervical spine deformity NEURO: Nonverbal, eyes closed, no focal deficits or facial asymmetry, pupils equal round reactive to light, responsive to pain CARDIAC: Regular rate and rhythm, no murmurs rubs or gallops LUNGS: Poor breath sounds bilaterally, bibasilar crackles, no wheezing or stridor ABDOMEN: Soft abdomen, without protuberance, no guarding no rigidity SKIN: Warm and dry to touch, no abrasions, contusions, or hematomas, no lacerations, no ecchymosis, no target lesions, and without ulcers EXTREMITIES: No clubbing cyanosis or edema, calves are bilaterally symmetrical, no Homans sign, no popliteal cord sign. Distal pulses equal and bilateral PSYCH: Unable to assess Result Diagram: 09/19/16 1250 09/19/16 1250 Results 24 hrs Laboratory Tests Test 09/19/16 12:36 09/19/16 12:50 09/19/16 13:45 Bedside Glucose 89mg/dL White Blood Count 5.010^3/ul Red Blood Count 3.1710^6/ul Hemoglobin 8.3g/dl Hematocrit 29.3% Mean Corpuscular Volume 92.4fl Mean Corpuscular Hemoglobin 26.2pg Mean Corpuscular Hemoglobin Concent 28.3g/dl Red Cell Distribution Width 23.9% Platelet Count 39135^3/UL Mean Platelet Volume 11.3fl Neutrophils % 73.0% Band Neutrophils % 1.0% Lymphocytes % 19.0% Monocytes % 7.0% Nucleated Red Blood Cells % 19.0/100WBC Neutrophils # 3.710^3/ul Lymphocytes # 1.010^3/ul Monocytes # 0.410^3/ul Polychromasia 1+ Hypochromasia 1+ Poikilocytosis 2+ Anisocytosis 2+ Target Cells OCCASIONAL Ovalocytes FEW Acanthocytes OCCASIONAL Schistocytes OCCASIONAL Prothrombin Time 29.1Sec Prothrombin Time Ratio 2.3 INR International Normalized Ratio 2.71 Sodium Level 138mmol/L Potassium Level 4.2mmol/L Chloride Level 100mmol/L Carbon Dioxide Level 25mmol/L Anion Gap 17 Blood Urea Nitrogen 33mg/dl Creatinine 1.98mg/dl Glucose Level 79mg/dl Calcium Level 8.5mg/dl Total Bilirubin 0.7mg/dl Direct Bilirubin 0.00mg/dl Indirect Bilirubin 0.7mg/dl Aspartate Amino Transf (AST/SGOT) 21IU/L Alanine Aminotransferase (ALT/SGPT) 24IU/L Alkaline Phosphatase 129IU/L Troponin I 0.042ng/ml Total Protein 6.5g/dl Albumin 3.2g/dl Globulin 3.30g/dl Albumin/Globulin Ratio 0.96 Lipase 428U/L Blood Gas Specimen Source Blood arterial Arterial Blood Date Drawn 09/19/2016 1:56:14 PM Arterial Blood pH (Temp corrected) 7.395 Arterial Blood pCO2 (Temp correct) 35.0mmhg Arterial Blood pO2 (Temp corrected) 472.9mmHG Arterial Blood HCO3 21.0mmol/L Arterial Blood Base Excess -3.5mmol/L Arterial Blood Oxygen Saturation 99.9mmHG Sebastien Test ACCEPTAB Arterial Blood Gas Puncture Site Right Radial Arterial Blood Carboxyhemoglobin 0.8% Arterial Blood Methemoglobin 0.5% Blood Gas A-a O2 Differential 205.1mmHg Oxyhemoglobin Percent 98.6% Total Hemoglobin 8.5g/dl Blood Gas Temperature 37.0C Blood Gas Respiration Rate 16.0 Blood Gas Actual Respiration Rate 16 Blood Gas Modality VENT - AC FiO2 100.0% Blood Gas Tidal Volume 500.0mL Blood Gas Low PEEP Setting 5.0cmH2O Blood Gas Notified Whom RT Blood Gas Notified Time 09/19/2016 2:05:05 PM Current Medications Medications (Trade) Dose Ordered Sig/Jeff Route PRN Reason Start Time Stop Time Status Last Admin Dose Admin Sodium Chloride 1,000 ml @ 1,000 mls/hr Q1H STAT IV 09/19/16 12:46 09/19/16 13:45 DC 09/19/16 12:50 Imipenem/ Cilastatin Sodium 100 ml @ 100 mls/hr ONCE ONCE IVPB 09/19/16 13:00 09/19/16 13:59 DC 09/19/16 13:45 Vancomycin HCl (Vancocin) 250 ml @ 125 mls/hr ONCE IVPB 09/19/16 13:00 09/19/16 14:59 DC 09/19/16 14:48 Lorazepam 2 mg 2 mg ONCE ONCE IV 09/19/16 13:30 09/19/16 13:31 DC 09/19/16 13:31 Midazolam HCl (Versed) 50 ml @ 3 mls/hr ONCE STAT IV 09/19/16 13:29 09/20/16 06:08 09/19/16 13:45 Lorazepam 2 mg 2 mg STK-MED ONCE .ROUTE 09/19/16 13:30 09/19/16 13:31 DC Sodium Chloride 1,000 ml @ 1,000 mls/hr Q1H ONCE IV 09/19/16 14:00 09/19/16 14:59 DC 09/19/16 13:52 Norepinephrine 250 ml @ ud STK-MED ONCE .ROUTE 09/19/16 14:32 09/19/16 14:33 DC Norepinephrine (Levophed) 250 ml @ 1.875 mls/ hr TITRATE IV 09/19/16 15:00 09/19/16 14:49 Procedures/MDM IV line was established patient was placed on pin drafter operator rhythm strip revealed a wide-complex paced rhythm at about 60 bpm. Patient was afebrile. Blood sugar was normal. Gan catheter was placed. EKG performed, read by me revealed a paced wide complex rhythm at 60 bpm, left axis deviation and a intraventricular block, no concerning ST elevations or depressions. I spoke to family members who are at the bedside regarding the patient's mental status and my concern for his ability to protect his airway and overall poor breathing. I made the decision to intubate the patient, and family members agreed. Endotracheal Intubation by me: Pre assessment performed. See preceding note for details. Pre-oxygenation performed with 100% oxygen RSI: Performed w/o complication or hypoxic events. Medications as ordered. Blade: Mac 4 ET Tube: 7.5 cm Depth: 23 cm at the lip Intubation confirmed by colorimetric CO2, equal breath sounds, quiet over the stomach. Chest X-ray 1V Interpreted by me: 1 cm cm above the travis ET tube. There is cardiomegaly and sternotomy wires with a pacemaker in the left chest and a left pleural effusion, no acute infiltrates, no pneumothorax. ABG performed, read by me revealed a pH of 7.4, PCO2 35, PaO2 472, FiO2 was decreased otherwise normal ABG post intubation. CBC reveals anemia with a hemoglobin of 8.3, electrolytes reveal acute kidney injury with a BUN/creatinine of 33/2, liver function tests were normal, troponin was negative. For sedation postintubation I ordered midazolam drip. Critical Care: Time: 37 minutes, this was time separate from other procedures. Treatments/Evaluations: Close monitoring and treatment of unstable vital signs, cardiorespiratory, and neurologic status, while maintaining tight balance of fluid, respiratory, and cardiac interventions. Patient was also given vancomycin 1 g IV and imipenem 500 mg IV Patient will be admitted to the intensive care unit for continued medical management Departure Diagnosis: Primary Impression: Hypotension Qualified Code: I95.9 - Hypotension, unspecified hypotension type Additional Impressions: Acute respiratory failure Qualified Code: J96.01 - Acute respiratory failure with hypoxia and hypercapnia Acute encephalopathy Acute kidney injury Condition: Serious VANDANA GRACE MD Sep 19, 2016 12:43
[2016-09-19] MEDS ORDERED: SOD CHLORIDE 0.9% 1,000 ML IV STA (12:46)
[2016-09-19] MEDS ORDERED: IMIPENEM-CILAST 500MG IV (PMX) 100 ML IVPB ONE (13:00)
[2016-09-19] MEDS ORDERED: VANCOMYCIN 1 GM (PMX) 250 ML IVPB SCH (13:00)
[2016-09-19 13:17] LABS: ADD SCAN DIFF NO
[2016-09-19 13:18] LABS: ABNORMAL IP MESSAGE 1; HEMATOCRIT 29.3 % (42.0-52.0); HEMOGLOBIN 8.3 g/dl (14.0-18.0); MEAN CORPUSCULAR HEMOGLOBIN 26.2 pg (29.0-33.0); MEAN CORPUSCULAR HGB CONC 28.3 g/dl (32.0-37.0); MEAN CORPUSCULAR VOLUME 92.4 fl (82.0-101.0); MEAN PLATELET VOLUME 11.3 fl (7.4-10.4); PLATELET COUNT 145 10^3/UL (140-415); RED BLOOD COUNT 3.17 10^6/ul (4.70-6.10); RED CELL DISTRIBUTION WIDTH 23.9 % (11.5-14.5)
[2016-09-19 13:28] LABS: ALBUMIN 3.2 g/dl (3.3-4.9)
[2016-09-19 13:29] LABS: POTASSIUM 4.2 mmol/L (3.5-5.1)
[2016-09-19] MEDS ORDERED: MIDAZOLAM (DRIP) 50 mg/50 mL 50 ML IV STA (13:29)
[2016-09-19] MEDS ORDERED: LORAZEPAM 2 MG INJ IV ONE (13:30)
[2016-09-19] MEDS ORDERED: LORAZEPAM 2 MG INJ ONE (13:30)
[2016-09-19 13:31] LABS: CREATININE 1.98 mg/dl (0.61-1.24); INR 2.71; PROTIME 29.1 Sec (12.2-14.2); PT RATIO 2.3
[2016-09-19 13:32] LABS: ALBUMIN/GLOBULIN RATIO 0.96; BILIRUBIN,INDIRECT 0.7 mg/dl (0-1.1); BILIRUBIN,TOTAL 0.7 mg/dl (0.2-1.3); CALCIUM 8.5 mg/dl (8.4-10.2); TOTAL PROTEIN 6.5 g/dl (6.1-8.1)
[2016-09-19 13:44] LABS: TROPONIN-I 0.042 ng/ml (0.00-0.12)
[2016-09-19 13:56] LABS: ANISOCYTOSIS 2+; MONOCYTE # 0.4 10^3/ul (0.3-0.9); NEUTROPHIL # 3.7 10^3/ul (1.6-7.5)
[2016-09-19 13:57] LABS: BURR CELLS FEW; HYPOCHROMASIA 1+; OVALOCYTES FEW; POIKILOCYTOSIS 2+
[2016-09-19 13:58] LABS: ACANTHOCYTES OCCASIONAL; SCHISTOCYTES OCCASIONAL
[2016-09-19 13:59] LABS: POLYCHROMASIA 1+; TARGET CELLS OCCASIONAL
[2016-09-19] MEDS ORDERED: SOD CHLORIDE 0.9% 1,000 ML IV ONE (14:00)
[2016-09-19] MEDS ORDERED: NORepinephrine 8MG/250 ML (PMX 250 ML ONE (14:32)
--- NOTE | 2016-09-19 14:32 | RADRPT ---
PROCEDURE: Chest x-ray CLINICAL INDICATION: Respiratory failure TECHNIQUE: Chest single view COMPARISON: 09/14/2016 FINDINGS: There is interval placement of endotracheal tube which terminates 1 cm above the travis and is direc eddie towards right mainstem bronchus. Recommend it be pulled back 1.5 cm. Nasogastric tube extends into the distal esophagus at the level of the gastroesophageal junction. This should be advanced. R ight IJ dialysis catheter remains in good position. There is left chest single lead AICD. Stable c ardiomegaly and an sclerotic aortic calcification is noted. There is ongoing mild to moderate CHF a nd small left pleural effusion IMPRESSION: 1. Endotracheal tube terminates 1 cm above the travis with the tip directed towards right mainstem bronchus. Recommend be pulled back 1.5 cm. 2. Nasogastric tube terminates at the GE junction. Recommend be advanced. 3. Right IJ dialysis catheter in place. 4. Cardiomegaly with ongoing CHF and small left pleural effusion. 5. AICD Call report was made to Dr. Jain on 09/19/2016 2:26:57 PM RPTAT: HH .Celestino Ward MD, MD Date Time Electronically viewed and signed by .Celestino Ward MD, on 09/19/2016 14:31 .W/
[2016-09-19] MEDS ORDERED: NORepinephrine 8MG/250 ML (PMX 250 ML IV SCH (15:00)
[2016-09-19 15:57] LABS: AADO2 Arterial 205.1 mmHg (7.0-24.0); Allen Test ACCEPTAB; Arterial Base Excess -3.5 mmol/L (-3.0-3); Arterial COHb 0.8 % (0.0-3.0); Arterial Fraction of Oxyhgb 98.6 % (93.0-99.0); Arterial MetHb 0.5 % (0.0-1.5); Arterial Total Hemglobin 8.5 g/dl (12.0-18.0); MODE VENT - AC
--- NOTE | 2016-09-19 16:29 | QN ---
Documentation Comment ESRD VDRF ANEMIA CAD SYS FAILURE PLAN PER YANIRA ROUSE MD Sep 19, 2016 16:29
--- NOTE | 2016-09-19 20:54 | HP ---
Date/Time of Note Date/Time of Note DATE: 09/19/16 TIME: 20:39 Assessment/Plan VTE Prophylaxis VTE Prophylaxis Intervention: other (Eliquis) Assessment/Plan Assessment/Plan 1. Recurrent VDRF 2/2 #2 2. Endstage CHF with exacerbation 3. Chronic kidney disease on hemodialysis 3 times a week limited by hypotension. 4. Shock ?cardiogenic r/o septic on pressor support 5. Diabetes mellitus type 2. 6. Paroxysmal atrial fibrillation, rate controlled. 7. 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 8. Chronic liver cirrhosis with coagulopathy and mild hyperbilirubinemia and transaminitis likely associated with chronic CHF 9. Severe debility. 10. 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 11. LE cellulitis and ulcerations ? PVD PLAN: * admit ICU / vent mgt / diuresis / Pulm consult * HD / nephrology consult * Continue pressors / empiric abx / ID consult * Palliative care consult * Continue home meds and eliquis * Serial labs / ICU supportive care Prognosis : very poor and guarded I spoke extensively with his son and recommended the [facility] care, remains full code at this time. HPI/ROS Admit Date/Time Admit Date/Time 09/19/16 Hx of Present Illness PRESENTING COMPLAINT: Hypotension HISTORY OF PRESENTING COMPLAINT: 81 yo M sent from dialysis center for low blood pressure. Has been having worsening SOB for the last few days Emergently intubated in ER. New ulcers and cellulitis noted on both feet. Now on pressor support going to ICU. ROS Subjective hx not possible: pt non-verbal, pt critical status PMH/Family/Social Past Medical History 1. End-stage congestive heart failure, improved. 2. Severe sepsis with lactic acidosis secondary to pneumonia, urinary tract infection, now resolved. 3. Chronic kidney disease on hemodialysis 3 times a week. 4. Acute respiratory failure secondary to congestive heart failure, successfully extubated, now resolved. Stable on room air. 5. Diabetes mellitus type 2. 6. Paroxysmal atrial fibrillation, rate controlled. 7. 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 8. 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 9. Chronic liver cirrhosis with coagulopathy and mild hyperbilirubinemia and transaminitis. 10. Methicillin-resistant Staphylococcus aureus nares, status post treatment. 11. Severe debility. 12. Bilateral pneumonia, status post treatment. Past Surgical History * CABG * Dialysis access Past Surgical Hx: coronary bypass surgery Family History Significant Family History: other Social History Alcohol Use: none Smoking Status: Never smoker Drug Use: none Exam/Review of Systems Vital Signs Vitals Vital Signs Date Time Temp Pulse Resp B/P Pulse Ox O2 Delivery O2 Flow Rate FiO2 09/19/16 18:38 63 16 114/43 100 Mechanical Ventilator 09/19/16 16:22 40 09/19/16 15:30 96.1 Exam Constitutional: frail, other (intubated and sedated, comfortable on vent) Psych: other (unable to assess) Head: normocephalic Eyes: PERRL ENMT: intubated Respiratory: diminished breath sounds, No crackles/rales Cardiovascular: irregular rhythm, murmurs/extra sounds Gastrointestinal: bowel sounds, distended, soft Genitourinary - Male: nl penis, nl scrotum Musculoskeletal: No nl extremities to inspection Neurological: No nl mental status Skin: rash or lesions (multiple superficial ulcers on both feet with surrounding cellulitis and edema) Labs Result Diagram: 09/19/16 1250 09/19/16 1250 Medications Medications Current Medications Norepinephrine (Levophed) 250 ml @ 1.875 mls/ hr TITRATE IV Last administered on 09/19/16t 14:49; Admin Dose 1.875 MLS/HR; Start 09/19/16 at 15:00 Apixaban (Eliquis) 2.5 mg BID PO ; Start 09/19/16 at 21:00 Ascorbic Acid (Vitamin C) 500 mg DAILY PO ; Start 09/20/16 at 09:00 Aspirin (Aspirin) 81 mg DAILY PO ; Start 09/20/16 at 09:00 Carvedilol (Coreg) 1.5625 mg BID PO ; Start 09/19/16 at 21:00 Digoxin (Digoxin) 0.125 mg Q2D@13 PO ; Start 09/21/16 at 13:00 Docusate Sodium (Colace) 200 mg QHS PO ; Start 09/19/16 at 21:00 Pantoprazole (Protonix Iv) 40 mg BID@06,18 IV ; Start 09/20/16 at 06:00 Furosemide (Lasix) 20 mg DAILY@06 IV ; Start 09/20/16 at 06:00 BOLA SOLO Sep 19, 2016 20:51
[2016-09-19] MEDS ORDERED: VANCOMYCIN IV PER PHARMACY XX SCH (21:00)
[2016-09-19] MEDS: ALBUMIN HUMAN 25% 100 ML IV SCH (23:18)
[2016-09-19] MEDS: LEVOFLOXACIN 500MG/D5W (PMX) 100 ML IVPB SCH (23:18)
[2016-09-19] MEDS: DOCUSATE SODIUM 100 MG CAP PO SCH (23:20)
[2016-09-19] MEDS: APIXABAN 5 MG TABLET PO SCH (23:21)
--- NOTE | 2016-09-19 23:59 | CONS ---
Date/Time of Note Date/Time of Note DATE: 09/19/16 TIME: 23:55 Assessment/Plan Assessment/Plan Chief Complaint/Hosp Course CKD ON DIALYSIS VDRF ANEMIA SYSTOLIX HEART FAILURE SIRS ANEMIA ASHD LOW EF PLAN CONTINUE HD Problems: Consultation Date/Type/Reason Admit Date/Time Sep 19, 2016 at 14:51 Initial Consult Date Type of Consultation: RENAL 24 HR Interval Summary Subjective hx not possible: pt non-verbal Exam/Review of Systems Vital Signs Vitals Vital Signs Date Time Temp Pulse Resp B/P Pulse Ox O2 Delivery O2 Flow Rate FiO2 09/19/16 23:40 62 16 100 30 09/19/16 22:00 97.6 113/38 Mechanical Ventilator Exam Eyes: EOMI, PERRL ENMT: intubated Neck: jvd (+), supple Respiratory: crackles/rales, diminished breath sounds Cardiovascular: regular rate and rhythm Gastrointestinal: bowel sounds (+), nl liver, spleen, non-tender, soft, No distended, No hepatomegaly Extremities: edema (+) Neurological: lethargic Results Result Diagram: 09/19/16 1250 09/19/16 1250 Results 24 hrs Laboratory Tests Test 09/19/16 12:36 09/19/16 12:50 09/19/16 13:45 09/19/16 19:00 Bedside Glucose 89 White Blood Count 5.0 # Red Blood Count 3.17 L Hemoglobin 8.3 L Hematocrit 29.3 L Mean Corpuscular Volume 92.4 Mean Corpuscular Hemoglobin 26.2 L Mean Corpuscular Hemoglobin Concent 28.3 L Red Cell Distribution Width 23.9 H Platelet Count 145 # Mean Platelet Volume 11.3 H Neutrophils % 73.0 Band Neutrophils % 1.0 Lymphocytes % 19.0 Monocytes % 7.0 Nucleated Red Blood Cells % 19.0 H Neutrophils # 3.7 Lymphocytes # 1.0 Monocytes # 0.4 Polychromasia 1+ Hypochromasia 1+ Poikilocytosis 2+ Anisocytosis 2+ Target Cells OCCASIONAL Ovalocytes FEW Acanthocytes OCCASIONAL Schistocytes OCCASIONAL Prothrombin Time 29.1 #H Prothrombin Time Ratio 2.3 INR International Normalized Ratio 2.71 Sodium Level 138 Potassium Level 4.2 Chloride Level 100 Carbon Dioxide Level 25 Anion Gap 17 H Blood Urea Nitrogen 33 H Creatinine 1.98 H Glucose Level 79 Calcium Level 8.5 Total Bilirubin 0.7 Direct Bilirubin 0.00 Indirect Bilirubin 0.7 Aspartate Amino Transf (AST/SGOT) 21 Alanine Aminotransferase (ALT/SGPT) 24 Alkaline Phosphatase 129 H Troponin I 0.042 Total Protein 6.5 Albumin 3.2 L Globulin 3.30 H Albumin/Globulin Ratio 0.96 Lipase 428 H Blood Gas Specimen Source Blood arterial Arterial Blood Date Drawn 09/19/2016 1:56:14 PM Arterial Blood pH (Temp corrected) 7.395 Arterial Blood pCO2 (Temp correct) 35.0 Arterial Blood pO2 (Temp corrected) 472.9 H Arterial Blood HCO3 21.0 L Arterial Blood Base Excess -3.5 L Arterial Blood Oxygen Saturation 99.9 Sebastien Test ACCEPTAB Arterial Blood Gas Puncture Site Right Radial Arterial Blood Carboxyhemoglobin 0.8 Arterial Blood Methemoglobin 0.5 Blood Gas A-a O2 Differential 205.1 H Oxyhemoglobin Percent 98.6 Total Hemoglobin 8.5 L Blood Gas Temperature 37.0 Blood Gas Respiration Rate 16.0 Blood Gas Actual Respiration Rate 16 Blood Gas Modality VENT - AC FiO2 100.0 Blood Gas Tidal Volume 500.0 Blood Gas Low PEEP Setting 5.0 Blood Gas Notified Whom RT Blood Gas Notified Time 09/19/2016 2:05:05 PM Digoxin Level 2.0 Medications Medications Current Medications Norepinephrine (Levophed) 250 ml @ 1.875 mls/ hr TITRATE IV Last administered on 09/19/16 14:49; Admin Dose 1.875 MLS/HR; Start 09/19/16 at 15:00 Apixaban (Eliquis) 2.5 mg BID PO Last administered on 09/19/16 23:21; Admin Dose 2.5 MG; Start 09/19/16 at 21:00 Ascorbic Acid (Vitamin C) 500 mg DAILY PO ; Start 09/20/16 at 09:00 Aspirin (Aspirin) 81 mg DAILY PO ; Start 09/20/16 at 09:00 Carvedilol (Coreg) 1.5625 mg BID PO Last administered on 09/19/16 23:21; Admin Dose 1.5625 MG; Start 09/19/16 at 21:00 Digoxin (Digoxin) 0.125 mg Q2D@13 PO ; Start 09/21/16 at 13:00 Docusate Sodium (Colace) 200 mg QHS PO Last administered on 09/19/16 23:20; Admin Dose 200 MG; Start 09/19/16 at 21:00 Pantoprazole (Protonix Iv) 40 mg BID@06,18 IV ; Start 09/20/16 at 06:00 Furosemide 20 mg 20 mg DAILY@06 IV ; Start 09/20/16 at 06:00 Levofloxacin/ Dextrose 100 ml @ 100 mls/hr Q48H IVPB Last administered on 09/19t 23:18; Admin Dose 100 MLS/HR; Start 09/19/16 at 21:00 Albumin Human 100 ml @ 100 mls/hr Q8H IV Last administered on 09/19/16 23:18 ; Admin Dose 100 MLS/HR; Start 09/19/16 at 21:00; Stop 09/20/16 at 13:59 Vancomycin HCl (Vancocin) 250 ml @ 125 mls/hr Q48H IVPB ; Start 09/20/16 at 23: 00 YANIRA HART MD Sep 19, 2016 23:58
[2016-09-20] VITALS (101 sets, daily range): BP systolic 86–136; BP diastolic 37–55; PULSE 60–85; RESP 15–24; Ht 157.5 cm; Wt 74.0 kg
[2016-09-20] MEDS: MIDAZOLAM (DRIP) 50 mg/50 mL 50 ML IV SCH ×3 (04:22→21:59)
[2016-09-20] MEDS: ALBUMIN HUMAN 25% 100 ML IV SCH ×2 (05:14→13:32)
[2016-09-20 05:45] LABS: ALBUMIN 2.7 g/dl (3.3-4.9)
[2016-09-20 05:46] LABS: POTASSIUM 3.6 mmol/L (3.5-5.1)
[2016-09-20 05:47] LABS: ADD SCAN DIFF NO
[2016-09-20 05:48] LABS: ALBUMIN/GLOBULIN RATIO 1.08; BILIRUBIN,DIRECT 0.1 mg/dl (0.00-0.20); BILIRUBIN,TOTAL 1.1 mg/dl (0.2-1.3); CREATININE 2.18 mg/dl (0.61-1.24); TOTAL PROTEIN 5.2 g/dl (6.1-8.1)
[2016-09-20 05:49] LABS: INR 2.99; PROTIME 31.5 Sec (12.2-14.2); PT RATIO 2.5
[2016-09-20 05:49] LABS: CALCIUM 8.5 mg/dl (8.4-10.2)
[2016-09-20] MEDS: PANTOPRAZOLE 40 MG INJ IV SCH ×2 (05:58→18:18)
[2016-09-20] MEDS: FUROSEMIDE 20 MG INJ IV SCH (05:58)
[2016-09-20 06:21] LABS: ABNORMAL IP MESSAGE 1; EOSINOPHILS # 0.1 10^3/ul (0.0-0.5); EOSINOPHILS % 1.7 % (0.0-7.0); HEMATOCRIT 26.4 % (42.0-52.0); HEMOGLOBIN 7.6 g/dl (14.0-18.0); LYMPHOCYTES # 0.6 10^3/ul (0.8-2.9); LYMPHOCYTES % 14.3 % (15.0-51.0); MEAN CORPUSCULAR HEMOGLOBIN 25.1 pg (29.0-33.0); MEAN CORPUSCULAR HGB CONC 28.8 g/dl (32.0-37.0); MEAN CORPUSCULAR VOLUME 87.1 fl (82.0-101.0); MONOCYTE # 0.4 10^3/ul (0.3-0.9); MONOCYTES % 8.3 % (0.0-11.0); NEUTROPHIL # 3.2 10^3/ul (1.6-7.5); NEUTROPHILS % 75.5 % (39.0-77.0); NUCLEATED RED BLOOD CELLS # 0.3 10^3/ul (0.0-0.0); NUCLEATED RED BLOOD CELLS% 8.1 /100WBC (0.0-0.0); PLATELET COUNT 113 10^3/UL (140-415); RED BLOOD COUNT 3.03 10^6/ul (4.70-6.10); RED CELL DISTRIBUTION WIDTH 23.4 % (11.5-14.5); WHITE BLOOD COUNT 4.2 10^3/ul (4.8-10.8)
[2016-09-20] MEDS: ASPIRIN 81 MG TAB PO SCH (09:51)
[2016-09-20] MEDS: APIXABAN 5 MG TABLET PO SCH ×2 (09:51→20:47)
[2016-09-20] MEDS: ASCORBIC ACID 500 MG TAB PO SCH (09:51)
--- NOTE | 2016-09-20 16:34 | CONS ---
DATE OF ADMISSION: 09/19/2016 DATE OF CONSULTATION: PULMONARY CONSULTATION HISTORY OF PRESENT ILLNESS: This is an 81-year-old gentleman with numerous medical problems includi ng end-stage cardiomyopathy with heart failure, chronic kidney disease on hemodialysis, diabetes, pa roxysmal atrial fibrillation, coronary artery disease with ischemic cardiomyopathy status post coron jan artery bypass graft and AICD placement, cirrhosis with coagulopathy, severely debilitated status post recent hospitalization from 08/27/2016 to 09/15/2016 for respiratory failure, bilateral pneumo mateus and E. coli UTI, who presented yesterday after undergoing dialysis at his outside dialysis [facility] and being found hypotensive. He was transferred to the emergency room. At that point, the patient was having increasing shortness of breath and was emergently intubated in the ER and a central line was placed and he was initiated on vasopressors. He is currently sedated on mechanical ventilation in the ICU. PAST MEDICAL HISTORY: In addition to what was mentioned earlier, history of severe debility, bilate ral pneumonia. PAST SURGICAL HISTORY: CABG. Has a right IJ PermCath for dialysis. SOCIAL HISTORY: No tobacco, alcohol or illicit drug use. FAMILY HISTORY: Noncontributory. REVIEW OF SYSTEMS: Unable to obtain. PHYSICAL EXAMINATION: VITAL SIGNS: Blood pressure is 95/39 supported on Levophed. Heart rate is 60, temperature is 96.2, oxygen saturation 100% on 30% FIO2. HEENT: ET tube is in place. NECK: Supple, no thyromegaly, no jugular venous distention. CARDIOVASCULAR: Irregularly irregular S1 and S2 with a II/ systolic murmur, and an S3 gallop. LUNGS: Clear to auscultation bilaterally. ABDOMEN: Soft, nontender. EXTREMITIES: No cyanosis, clubbing or edema. LABORATORY DATA: WBC is 4.2, hemoglobin is 7.8, platelets are 113. ABG: pH is 7.40, PaCO2 is 35, PaO2 is 473, BUN is 42, creatinine is 2.18. Coags: INR is 3.0. Chest x-ray shows no acute infiltrates. IMPRESSION: 1. Shock, likely septic, possible sources include catheter related bloodstream infection versus uri nary tract infection. Currently, no evidence of an obvious pneumonia. 2. Respiratory failure secondary to #1. 3. Chronic kidney disease on dialysis. 4. Advanced ischemic cardiomyopathy. 5. Paroxysmal atrial fibrillation. 6. Diabetes. 7. Anemia. 8. Cirrhosis. RECOMMENDATIONS: 1. Ventilatory support with plans to reduce FIO2. 2. Continue Levophed with plans to maintain MAP greater than or equal to 65. 3. Follow lactate clearance. 4. Broad spectrum antibiotics, pancultures with plans to deescalated. 5. Obtain UA and urine culture. 6. Would agree with palliative care consultation to discuss goals of care. Dictated By: JESUS HURT MD NK/NTS Conf#: [id number] DID#: [id number] CC: BOLA SOLO MD; HERMAN CARDENAS MD;*EndCC*
--- NOTE | 2016-09-20 17:15 | CONS ---
Date/Time of Note Date/Time of Note DATE: 09/20/16 TIME: 17:13 Assessment/Plan Assessment/Plan Chief Complaint/Hosp Course CKD ON DIALYSIS mwf VDRF ANEMIA SYSTOLIX HEART FAILURE SIRS ANEMIA ASHD LOW EF PLAN CONTINUE HD mwf Problems: Consultation Date/Type/Reason Admit Date/Time Sep 19, 2016 at 14:51 Type of Consultation: RENAL Reason for Consultation [id number] on vent will have hd am Exam/Review of Systems Vital Signs Vitals Vital Signs Date Time Temp Pulse Resp B/P Pulse Ox O2 Delivery O2 Flow Rate FiO2 09/20/16 16:00 77 09/20/16 15:17 16 100 30 09/20/16 14:15 101/46 09/20/16 14:00 Mechanical Ventilator 09/20/16 12:00 96.2 Intake and Output 09/19/16 09/19/16 09/20/16 15:00 23:00 07:00 Intake Total 2100 ml 310.75 ml 432.36 ml Output Total 80 ml 300 ml Balance 2100 ml 230.75 ml 132.36 ml Exam Respiratory: diminished breath sounds Cardiovascular: regular rate and rhythm Gastrointestinal: bowel sounds (+) Extremities: edema (+) Results Result Diagram: 09/20/16 0440 09/20/16 0440 Results 24 hrs Laboratory Tests Test 09/19/16 19:00 09/20/16 02:11 09/20/16 04:40 09/20/16 04:45 Digoxin Level 2.0 Bedside Glucose 75 White Blood Count 4.2 L Red Blood Count 3.03 L Hemoglobin 7.6 L Hematocrit 26.4 L Mean Corpuscular Volume 87.1 Mean Corpuscular Hemoglobin 25.1 L Mean Corpuscular Hemoglobin Concent 28.8 L Red Cell Distribution Width 23.4 H Platelet Count 113 #L Mean Platelet Volume 10.0 Neutrophils % 75.5 Lymphocytes % 14.3 L Monocytes % 8.3 Eosinophils % 1.7 Basophils % 0.0 Nucleated Red Blood Cells % 8.1 H Neutrophils # 3.2 Lymphocytes # 0.6 L Monocytes # 0.4 Eosinophils # 0.1 Basophils # 0.0 Nucleated Red Blood Cells # 0.3 H Sodium Level 134 L Potassium Level 3.6 Chloride Level 98 Carbon Dioxide Level 22 Anion Gap 18 H Blood Urea Nitrogen 42 H Creatinine 2.18 H Glucose Level 80 Calcium Level 8.5 Magnesium Level 2.1 Total Bilirubin 1.1 Direct Bilirubin 0.10 Indirect Bilirubin 1.0 Aspartate Amino Transf (AST/SGOT) 17 Alanine Aminotransferase (ALT/SGPT) 23 Alkaline Phosphatase 91 Total Protein 5.2 #L Albumin 2.7 L Globulin 2.50 Albumin/Globulin Ratio 1.08 Prealbumin 5.2 L Prothrombin Time 31.5 H Prothrombin Time Ratio 2.5 INR International Normalized Ratio 2.99 Activated Partial Thromboplast Time 56.0 H Medications Medications Current Medications Apixaban (Eliquis) 2.5 mg BID PO Last administered on 09/20/16 09:51; Admin Dose 2.5 MG; Start 09/19/16 at 21:00 Ascorbic Acid (Vitamin C) 500 mg DAILY PO Last administered on 09/20/16 09:51 ; Admin Dose 500 MG; Start 09/20/16 at 09:00 Aspirin (Aspirin) 81 mg DAILY PO Last administered on 09/20/16 09:51; Admin Dose 81 MG; Start 09/20/16 at 09:00 Carvedilol (Coreg) 1.5625 mg BID PO Last administered on 09/19/16 23:21; Admin Dose 1.5625 MG; Start 09/19/16 at 21:00 Digoxin (Digoxin) 0.125 mg Q2D@13 PO ; Start 09/21/16 at 13:00 Docusate Sodium (Colace) 200 mg QHS PO Last administered on 09/19/16 23:20; Admin Dose 200 MG; Start 09/19/16 at 21:00 Pantoprazole (Protonix Iv) 40 mg BID@06,18 IV Last administered on 09/20/16 05 :58; Admin Dose 40 MG; Start 09/20/16 at 06:00 Furosemide 20 mg 20 mg DAILY@06 IV Last administered on 09/20/16 05:58; Admin Dose 20 MG; Start 09/20/16 at 06:00 Levofloxacin/ Dextrose 100 ml @ 100 mls/hr Q48H IVPB Last administered on 09/19 23:18; Admin Dose 100 MLS/HR; Start 09/19/16 at 21:00 Norepinephrine 16 mg/Dextrose 500 ml @ 1.87 mls/hr TITRATE IV Last administered on 09/20/16 04:26; Admin Dose 9.37 MLS/HR; Start 09/20/16 at 02:00 Midazolam HCl 50 ml @ 1 mls/hr TITRATE IV Last administered on 09/20/16t 13:31 ; Admin Dose 6 MLS/HR; Start 09/20/16 at 02:00 Vancomycin HCl (Vancocin) 250 ml @ 125 mls/hr 18 IVPB ; Start 09/20/16 at 18:00 ; Stop 09/20/16 at 23:59 YANIRA HART MD Sep 20, 2016 17:14
[2016-09-20] MEDS ORDERED: VANCOMYCIN 1 GM in NS 250 ML IVPB SCH ×2 (18:00→23:00)
--- NOTE | 2016-09-20 18:08 | CONS ---
DATE OF ADMISSION: 09/19/2016 DATE OF CONSULTATION: TYPE OF CONSULTATION: Nephrology. HISTORY OF PRESENT ILLNESS: The patient is well known to me. Thank you, Dr. Sho Lozano. The patient's family called me to see this patient. Recently discharged, goes to [facility], was seen at [facility]. During his first dialysis visit patient claimed that when he was at the dialysis center they found out his home oxygen has not been delivered and because of that he became short of breath, presented to this hospital. Patient was seen in the ER, initially evaluated by Dr. Jain for shortness of breath. The patient was intubated, so he himself is unable to give any detailed history. Patient's blood pressure recorded as in the ER: Pulse 61, blood pressure 103/15. PAST MEDICAL HISTORY: Positive for congestive heart failure, sepsis. The patient has sepsis, CKD on hemodialysis. The patient has decreased ejection fraction. The patient has diabetes mellitus, paroxysmal atrial fibrillation. The patient has history of coronary artery bypass graft, history of AICD device placement, history of cirrhosis of the liver, MRSA, history of severe deconditioning, history of pneumonia. ALLERGY HISTORY: DIPYRONE. SOCIAL HISTORY: At this time cannot be obtained. MEDICATION: The patient's medication history: Patient currently is on 1. Eliquis. 2. Ascorbic acid. 3. Aspirin. 4. Coreg. 5. Digoxin. 6. Docusate sodium. 7. Lasix. 8. Levofloxacin. 9. Versed. 10. Levophed. 11. Protonix. 12. Vancomycin. REVIEW OF SYSTEMS: Cannot be obtained. PHYSICAL EXAMINATION: Family is at bedside. VITAL SIGNS: Pulse 72, blood pressure 101/46. HEENT: Head is atraumatic, normocephalic. Pupils equal, reactive. NECK: JVD positive. LUNGS: Decreased air entry with rhonchi at bases. CARDIOVASCULAR: S1, S2 is normal. Systolic murmur noted. ABDOMEN: Soft, nondistended. Bowel sounds positive. EXTREMITIES: No cyanosis, clubbing. Edema positive. LABORATORY DATA: WBC 4.3, hematocrit 26.4, platelet count of 113. Sodium 130, potassium 3.6, BUN 42, creatinine 2.18, albumin 2.7. The patient had a chest x-ray shows ET tube _ 1 cm above the travis. Nasogastric tube to monitor the GE junction. The patient has a right-sided dialysis catheter, cardiomegaly with ongoing CHF, small left pleural effusion. The patient's hematocrit 26.4, platelet count of 113. Sodium 130, potassium 3.6 , CO2 of 22. IMPRESSION: 1. Acute hypoxic respiratory failure. 2. Patient has a chronic systolic heart failure. 3. Chronic kidney disease requiring hemodialysis. 4. History of acute tubular necrosis. 5. Cardiomyopathy. 6. Anemia. 7. Neutropenia. 8. The patient has hypoalbuminemia. 9. Patient has ventilator dependent respiratory failure. 10. History of sepsis. 11. Septic shock. PLAN: At this point is to follow recommendation from pulmonary. Patient will be continued on maintenance hemodialysis, which is possibly Wednesday, Wednesday, Wednesday and when needed. Other pending recommendations per Dr. Larkin on the case. Thank you, Dr. Lozano, for kindly asking me to see this patient in consultation. Dictated By: YANIRA ACOSTA/SHAHANA Conf#: [id number] DID#: [id number] MTDMeaghan
--- NOTE | 2016-09-20 18:20 | RADRPT ---
PROCEDURE: XR Chest. CLINICAL INDICATION: POST ETT REPOSITION TECHNIQUE: Single frontal view of the chest was obtained COMPARISON: 09/19/2016 FINDINGS: The endotracheal tube has been repositioned. The tip is now 2.3 cm above the travis. A nasogastric tube is present with the tip in the proximal stomach. This should be advanced approxi mately 6-8 cm. The right internal jugular dialysis catheter is again seen. The left AICD is again seen. The heart remains mildly enlarged. There is a persistent moderate left pleural effusion with associated compressive atelectasis. A kateryna y small right pleural effusion is again seen. IMPRESSION: 1. The endotracheal tube has been repositioned. The tip is now in satisfactory position 2.3 cm abo ve the travis. 2. The nasogastric tube is again seen with the tip in the proximal stomach. This should be advance d approximately 6-8 cm. 3. Otherwise, there has been no interval change given any differences in technique or inspiration. RPTAT:AAJJ Physician Ernestina Date Time Electronically viewed and signed by Kaiden Bennett Physician on 09/20/2016 18:20 JEFFREY/
--- NOTE | 2016-09-20 18:20 | CONS ---
DATE OF ADMISSION: 09/19/2016 DATE OF CONSULTATION: 09/20/2016 TYPE OF CONSULTATION: Infectious Disease. REASON FOR CONSULTATION: Antibiotic management. HISTORY OF PRESENT ILLNESS: Jluis Ledesma is an 81-year-old male who was sent from [facility] for low blood pressure and shortness of breath. The patient was emergently intubated in the emergency room. New ulcers and cellulitis were noted on both feet. He is now on pressors, a nd he is in the intensive care unit. Past problems include: 1. End-stage congestive heart failure. 2. Chronic renal disease on hemodialysis, end-stage renal disease. 3. Acute respiratory failure secondary to CHF, now intubated. 4. Adult-onset diabetes mellitus. 5. Severe sepsis with lactic acidosis secondary to pneumonia and urinary tract infection. 6. Paroxysmal atrial fibrillation. 7. Coronary artery disease with severe ischemic cardiomyopathy. 8. Status post coronary artery bypass graft and AICD placement. 9. 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 10. Chronic cirrhosis of the liver with coagulopathy, mild hyperbilirubinemia and transaminitis. 11. 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 12. Severe debility. 13. History of bilateral pneumonia, status post treatment. Acutely, as noted, the patient comes in significantly short of breath. On admission, his white coun t is 5.0, H and H of 8.3 and 29.3, platelet count 145,000. BUN and creatinine 33/1.98. The patient had blood cultures done, which were negative. Chest x-ray shows an ET tube, NG tube, right IJ cath eter, an AICD and cardiomegaly with ongoing CHF and small left pleural effusion. The patient was be gun on vancomycin and Levaquin. PAST MEDICAL HISTORY: Operations as outlined. FAMILY HISTORY: Noncontributory. SOCIAL HISTORY: Does not smoke, drink or abuse drugs. ALLERGIES: NONE TO PENICILLIN, SULFA OR FOODS. MEDICATIONS: Per chart. REVIEW OF SYSTEMS: Noncontributory. PHYSICAL EXAMINATION: GENERAL: The patient is a frail elderly male who is intubated, sedated, on a respirator. SKIN: Without generalized rash. He has multiple superficial ulcers on both feet with surrounding c ellulitis and edema. HEENT: He has an ET tube and an NG tube. NECK: Supple. LYMPH NODES: None palpable. CHEST: Decreased breath sounds at the bases. HEART: Without murmur or gallop. Irregularly irregular rhythm. ABDOMEN: Soft, nontender, without organosplenomegaly or masses. EXTREMITIES: Without cyanosis, clubbing, or edema. RECTAL AND GENITAL: Deferred. NEUROLOGIC: The patient is sedated on a respirator. IMPRESSION AND PLAN: The patient comes in with multiple problems, with end-stage renal disease, wit h end-stage cardiac disease, probably should be a hospice patient. Currently on vancomycin and Leva oliver. He has respiratory cultures pending, urine and blood cultures pending. He has been seen also by Dr. Lamar in renal consultation and Dr. Sanford. I will dictate my findings to the hospitalist and the aforementioned physicians. Dictated By: CHUNG VALLE MD, JD/SHAHANA Conf#: [id number] DID#: [id number]
[2016-09-20 20:01] LABS: POTASSIUM 3.6 mmol/L (3.5-5.1)
[2016-09-20 20:03] LABS: BILIRUBIN,DIRECT 0.2 mg/dl (0.00-0.20); BILIRUBIN,INDIRECT 1.3 mg/dl (0-1.1); BILIRUBIN,TOTAL 1.5 mg/dl (0.2-1.3); CREATININE 1.95 mg/dl (0.61-1.24)
[2016-09-20 20:04] LABS: ALBUMIN/GLOBULIN RATIO 1.3; CALCIUM 8.2 mg/dl (8.4-10.2); TOTAL PROTEIN 5.3 g/dl (6.1-8.1)
[2016-09-20] MEDS: DOCUSATE SODIUM 100 MG CAP PO SCH (20:46)
--- NOTE | 2016-09-20 22:02 | PN ---
Date/Time of Note Date/Time of Note DATE: 09/20/16 TIME: 21:57 Assessment/Plan VTE Prophylaxis VTE Prophylaxis Intervention: other (eliquis) Lines/Catheters IV C[facility]ter Type (from [facility]): PERMACATH Urinary Cath still in place: Yes Reason Cath still needed: other (indicate) Assessment/Plan Assessment/Plan 1. Recurrent VDRF 2/2 #2 2. Endstage CHF with exacerbation 3. Chronic kidney disease on hemodialysis 3 times a week limited by hypotension. 4. Shock ?cardiogenic r/o septic on pressor support 5. Diabetes mellitus type 2. 6. Paroxysmal atrial fibrillation, rate controlled. 7. 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 8. Chronic liver cirrhosis with coagulopathy and mild hyperbilirubinemia and transaminitis likely associated with chronic CHF 9. Severe debility. 10. 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 11. LE cellulitis and ulcerations ? PVD PLAN: * Continue ICU care / vent mgt / pressor support/ add albumin * Start tube feeds tomorrow if patient remains stable * HD as tolerated per Nephro * Continue pressors / empiric abx * Palliative care consult * Continue home meds and eliquis * Serial labs / ICU supportive care Prognosis : very poor and guarded I spoke extensively with his son and [facility], remains full code at this time. Subjective 24 Hr Interval Summary Free Text/Dictation Intubated and sedated for comfort, still requiring pressor support. Exam/Review of Systems Vital Signs Vitals Vital Signs Date Time Temp Pulse Resp B/P Pulse Ox O2 Delivery O2 Flow Rate FiO2 09/20/16 21:29 60 16 100 30 09/20/16 19:15 113/42 09/20/16 19:00 Mechanical Ventilator 09/20/16 16:00 96.3 Intake and Output 09/19/16 09/19/16 09/20/16 15:00 23:00 07:00 Intake Total 2100 ml 310.75 ml 432.36 ml Output Total 80 ml 300 ml Balance 2100 ml 230.75 ml 132.36 ml Exam Constitutional: frail, other (intubated and sedated, comfortable on vent) Psych: other (unable to assess) Head: normocephalic Eyes: PERRL ENMT: intubated Respiratory: diminished breath sounds, No crackles/rales Cardiovascular: irregular rhythm, murmurs/extra sounds Gastrointestinal: bowel sounds, distended, soft Genitourinary - Male: nl penis, nl scrotum Musculoskeletal: No nl extremities to inspection Neurological: No nl mental status Skin: rash or lesions (multiple superficial ulcers on both feet with surrounding cellulitis and edema) Results Result Diagram: 09/20/16 0440 09/20/16 1815 Results 24 hrs Laboratory Tests Test 09/20/16 02:11 09/20/16 04:40 09/20/16 04:45 09/20/16 18:15 Bedside Glucose 75 White Blood Count 4.2 L Red Blood Count 3.03 L Hemoglobin 7.6 L Hematocrit 26.4 L Mean Corpuscular Volume 87.1 Mean Corpuscular Hemoglobin 25.1 L Mean Corpuscular Hemoglobin Concent 28.8 L Red Cell Distribution Width 23.4 H Platelet Count 113 #L Mean Platelet Volume 10.0 Neutrophils % 75.5 Lymphocytes % 14.3 L Monocytes % 8.3 Eosinophils % 1.7 Basophils % 0.0 Nucleated Red Blood Cells % 8.1 H Neutrophils # 3.2 Lymphocytes # 0.6 L Monocytes # 0.4 Eosinophils # 0.1 Basophils # 0.0 Nucleated Red Blood Cells # 0.3 H Sodium Level 134 L 132 L Potassium Level 3.6 3.6 Chloride Level 98 99 Carbon Dioxide Level 22 18 L Anion Gap 18 H 19 H Blood Urea Nitrogen 42 H 44 H Creatinine 2.18 H 1.95 H Glucose Level 80 67 #L Calcium Level 8.5 8.2 L Magnesium Level 2.1 Total Bilirubin 1.1 1.5 H Direct Bilirubin 0.10 0.20 Indirect Bilirubin 1.0 1.3 H Aspartate Amino Transf (AST/SGOT) 17 34 # Alanine Aminotransferase (ALT/SGPT) 23 26 Alkaline Phosphatase 91 74 Total Protein 5.2 #L 5.3 L Albumin 2.7 L 3.0 L Globulin 2.50 2.30 Albumin/Globulin Ratio 1.08 1.30 Prealbumin 5.2 L Prothrombin Time 31.5 H Prothrombin Time Ratio 2.5 INR International Normalized Ratio 2.99 Activated Partial Thromboplast Time 56.0 H Medications Medications Current Medications Apixaban (Eliquis) 2.5 mg BID PO Last administered on 09/20/16t 20:47; Admin Dose 2.5 MG; Start 09/19/16 at 21:00 Ascorbic Acid (Vitamin C) 500 mg DAILY PO Last administered on 09/20/16 09:51 ; Admin Dose 500 MG; Start 09/20/16 at 09:00 Aspirin (Aspirin) 81 mg DAILY PO Last administered on 09/20/16 09:51; Admin Dose 81 MG; Start 09/20/16 at 09:00 Carvedilol (Coreg) 1.5625 mg BID PO Last administered on 09/20/16 20:47; Admin Dose 1.5625 MG; Start 09/19/16 at 21:00 Digoxin (Digoxin) 0.125 mg Q2D@13 PO ; Start 09/21/16 at 13:00 Docusate Sodium (Colace) 200 mg QHS PO Last administered on 09/20/16 20:46; Admin Dose 200 MG; Start 09/19/16 at 21:00 Pantoprazole (Protonix Iv) 40 mg BID@06,18 IV Last administered on 09/20/16 18 :18; Admin Dose 40 MG; Start 09/20/16 at 06:00 Furosemide 20 mg 20 mg DAILY@06 IV Last administered on 09/20/16 05:58; Admin Dose 20 MG; Start 09/20/16 at 06:00 Levofloxacin/ Dextrose 100 ml @ 100 mls/hr Q48H IVPB Last administered on 09/19 23:18; Admin Dose 100 MLS/HR; Start 09/19/16 at 21:00 Norepinephrine 16 mg/Dextrose 500 ml @ 1.87 mls/hr TITRATE IV Last administered on 09/20/16 04:26; Admin Dose 9.37 MLS/HR; Start 09/20/16 at 02:00 Midazolam HCl 50 ml @ 1 mls/hr TITRATE IV Last administered on 09/20/16 13:31 ; Admin Dose 6 MLS/HR; Start 09/20/16 at 02:00 Vancomycin HCl (Vancocin) 250 ml @ 125 mls/hr 18 IVPB Last administered on 18:18; Admin Dose 125 MLS/HR; Start 09/20/16 at 18:00; Stop 09/20/16 at 23:59 BOLA SOLO Sep 20, 2016 22:02
[2016-09-21] VITALS (101 sets, daily range): BP systolic 85–128; BP diastolic 35–61; PULSE 60–68; RESP 14–18
[2016-09-21 04:59] LABS: AADO2 Arterial 59.3 mmHg (7.0-24.0); Allen Test ACCEPTAB; Arterial Base Excess -2.1 mmol/L (-3.0-3); Arterial COHb 1.1 % (0.0-3.0); Arterial Fraction of Oxyhgb 97.1 % (93.0-99.0); Arterial HCO3 20.4 mmol/L (22.0-26.0); Arterial MetHb 0.4 % (0.0-1.5); Arterial Total Hemglobin 9.1 g/dl (12.0-18.0); MODE VENT - AC
[2016-09-21] MEDS: MIDAZOLAM (DRIP) 50 mg/50 mL 50 ML IV SCH ×2 (05:48→15:03)
[2016-09-21] MEDS: FUROSEMIDE 20 MG INJ IV SCH (05:48)
[2016-09-21] MEDS: PANTOPRAZOLE 40 MG INJ IV SCH ×2 (05:48→19:24)
[2016-09-21 06:30] LABS: ADD SCAN DIFF NO
[2016-09-21 06:35] LABS: ABNORMAL IP MESSAGE 1; EOSINOPHILS % 0.6 % (0.0-7.0); HEMATOCRIT 27.5 % (42.0-52.0); LYMPHOCYTES # 0.5 10^3/ul (0.8-2.9); LYMPHOCYTES % 10.9 % (15.0-51.0); MEAN CORPUSCULAR HEMOGLOBIN 26.1 pg (29.0-33.0); MEAN CORPUSCULAR HGB CONC 29.1 g/dl (32.0-37.0); MEAN CORPUSCULAR VOLUME 89.6 fl (82.0-101.0); MONOCYTE # 0.2 10^3/ul (0.3-0.9); MONOCYTES % 4.9 % (0.0-11.0); NEUTROPHIL # 4.1 10^3/ul (1.6-7.5); NEUTROPHILS % 83.4 % (39.0-77.0); NUCLEATED RED BLOOD CELLS # 0.1 10^3/ul (0.0-0.0); NUCLEATED RED BLOOD CELLS% 2.5 /100WBC (0.0-0.0); RED BLOOD COUNT 3.07 10^6/ul (4.70-6.10); RED CELL DISTRIBUTION WIDTH 23.8 % (11.5-14.5); WHITE BLOOD COUNT 4.9 10^3/ul (4.8-10.8)
[2016-09-21 06:45] LABS: POTASSIUM 3.6 mmol/L (3.5-5.1)
[2016-09-21 06:48] LABS: CALCIUM 8.7 mg/dl (8.4-10.2); CREATININE 2.17 mg/dl (0.61-1.24)
--- NOTE | 2016-09-21 08:26 | RADRPT ---
PROCEDURE: XR Chest. CLINICAL INDICATION: vent TECHNIQUE: Single frontal view of the chest was obtained. COMPARISON: Chest x-ray from 09/20/2016 FINDINGS: Endotracheal tube, enteric tube, right-sided Perma-Cath, sternotomy wires, and left-sided pacemaker are unchanged in position. There is stable cardiomegaly with mildly increased congestive changes. The aortic arch is calcified. There is a layering left pleural effusion does not appear significantly changed. There is a stable retrocardiac opacity due to atelectasis, infiltrate, and / or effusion. There is a stable tiny right pleural effusion. IMPRESSION: Mildly increased congestive changes. Otherwise, no significant interval change. RPTAT: EE Physician Edgard Date Time Electronically viewed and signed by Reji Ybarra Physician on 09/21/2016 08:26 /
[2016-09-21] MEDS: ASCORBIC ACID 500 MG TAB PO SCH (09:20)
[2016-09-21] MEDS: ASPIRIN 81 MG TAB PO SCH (09:20)
[2016-09-21] MEDS: APIXABAN 5 MG TABLET PO SCH ×2 (09:20→20:47)
[2016-09-21 09:55] LABS: PLATELET COUNT 126 10^3/UL (140-415)
--- NOTE | 2016-09-21 10:10 | CONS ---
Date/Time of Note Date/Time of Note DATE: 09/21/16 TIME: 10:07 Assessment/Plan Assessment/Plan Additional Assessment/Plan Chest x-ray was reviewed from today which is essentially clear. Endotracheal tube is at an adequate level. Sternal wires are again identified. Pacemaker in left chest wall. Ventilator settings; AC of 16, tidal volume 500, PEEP of 5, 30% FiO2. Patient is on Versed 6 mg/h and Levophed at 10 mics per minute. Assessment recommendations; 1. Patient admitted for respiratory failure due to recurrent flash pulmonary edema. 2. Chronic renal failure. On hemodialysis. 3. History of underlying cardia myopathy and coronary artery disease. 4. Anemia. 5. Cardiac arrhythmia. Status post pacemaker. 6. Recent prolonged hospital stay with 2 intubations. 7. Currently no evidence of any infective process. I would recommend stopping antibiotics. Patient will need to have a tracheostomy performed. Meanwhile continue current supportive care. Prognosis is poor. Consultation Date/Type/Reason Admit Date/Time Sep 19, 2016 at 14:51 Initial Consult Date Type of Consultation: Pulmonary/critical care 24 HR Interval Summary Free Text/Dictation Patient condition remains critical. Still requiring full ventilator support. Also requiring Levophed for blood pressure maintenance. General exam; elderly male, orally intubated, sedated, currently in no distress. Exam/Review of Systems Vital Signs Vitals Vital Signs Date Time Temp Pulse Resp B/P Pulse Ox O2 Delivery O2 Flow Rate FiO2 09/21/16 09:15 60 16 101/43 100 Mechanical Ventilator 09/21/16 08:30 98.6 09/21/16 08:00 30 Intake and Output 09/20/16 09/20/16 09/21/16 15:00 23:00 07:00 Intake Total 302.21 ml 432.96 ml 186.37 ml Output Total 875 ml 515 ml 365 ml Balance -572.79 ml -82.04 ml -178.63 ml Exam HEENT examination; supple neck, positive JVD. No lymphadenopathy. Midline trachea. Orally intubated. Patient is edentulous. Chest examination; diminished but clear vessel. S1-S2 audible, no murmurs. Regular rhythm. There is a pacemaker in the left chest wall. There is a well- healed sternal scar. Abdomen examination; soft, no organomegaly. No distention. Bowel sounds audible. Extremity exam is; no peripheral edema. BUDDER examination; patient is sedated. Results Result Diagram: 09/21/16 0900 09/21/16 0523 Results 24 hrs Laboratory Tests Test 09/20/16 18:15 09/21/16 05:00 09/21/16 05:23 09/21/16 07:55 Sodium Level 132 L 135 Potassium Level 3.6 3.6 Chloride Level 99 100 Carbon Dioxide Level 18 L 20 L Anion Gap 19 H 19 H Blood Urea Nitrogen 44 H 44 H Creatinine 1.95 H 2.17 H Glucose Level 67 #L 52 #L Calcium Level 8.2 L 8.7 Total Bilirubin 1.5 H Direct Bilirubin 0.20 Indirect Bilirubin 1.3 H Aspartate Amino Transf (AST/SGOT) 34 # Alanine Aminotransferase (ALT/SGPT) 26 Alkaline Phosphatase 74 Total Protein 5.3 L Albumin 3.0 L Globulin 2.30 Albumin/Globulin Ratio 1.30 Blood Gas Specimen Source Blood arterial Arterial Blood Date Drawn 09/21/2016 4:51:59 AM Arterial Blood pH (Temp corrected) 7.500 H Arterial Blood pCO2 (Temp correct) 26.7 L Arterial Blood pO2 (Temp corrected) 123.2 H Arterial Blood HCO3 20.4 L Arterial Blood Base Excess -2.1 Arterial Blood Oxygen Saturation 98.6 Sebastien Test ACCEPTAB Arterial Blood Gas Puncture Site Right Radial Arterial Blood Carboxyhemoglobin 1.1 Arterial Blood Methemoglobin 0.4 Blood Gas A-a O2 Differential 59.3 H Oxyhemoglobin Percent 97.1 Total Hemoglobin 9.1 L Blood Gas Temperature 37.0 Blood Gas Respiration Rate 16.0 Blood Gas Actual Respiration Rate 16 Blood Gas Modality VENT - AC FiO2 30.0 Blood Gas Tidal Volume 500.0 Blood Gas Low PEEP Setting 5.0 Blood Gas Notified Whom BR Blood Gas Notified Time 09/21/2016 4:58:42 AM Lactic Acid Level 1.8 Bedside Glucose 73 Test 09/21/16 09:00 White Blood Count 4.9 Red Blood Count 3.07 L Hemoglobin 8.0 L Hematocrit 27.5 L Mean Corpuscular Volume 89.6 Mean Corpuscular Hemoglobin 26.1 L Mean Corpuscular Hemoglobin Concent 29.1 L Red Cell Distribution Width 23.8 H Platelet Count 126 L Mean Platelet Volume Neutrophils % 83.4 H Lymphocytes % 10.9 L Monocytes % 4.9 Eosinophils % 0.6 Basophils % 0.0 Nucleated Red Blood Cells % 2.5 H Neutrophils # 4.1 Lymphocytes # 0.5 L Monocytes # 0.2 L Eosinophils # 0.0 Basophils # 0.0 Nucleated Red Blood Cells # 0.1 H Medications Medications Current Medications Apixaban (Eliquis) 2.5 mg BID PO Last administered on 09/21/16 09:20; Admin Dose 2.5 MG; Start 09/19/16 at 21:00 Ascorbic Acid (Vitamin C) 500 mg DAILY PO Last administered on 09/21/16 09:20 ; Admin Dose 500 MG; Start 09/20/16 at 09:00 Aspirin (Aspirin) 81 mg DAILY PO Last administered on 09/21/16 09:20; Admin Dose 81 MG; Start 09/20/16 at 09:00 Carvedilol (Coreg) 1.5625 mg BID PO Last administered on 09/20/16 20:47; Admin Dose 1.5625 MG; Start 09/19/16 at 21:00 Digoxin (Digoxin) 0.125 mg Q2D@13 PO ; Start 09/21/16 at 13:00 Docusate Sodium (Colace) 200 mg QHS PO Last administered on 09/20/16 20:46; Admin Dose 200 MG; Start 09/19/16 at 21:00 Pantoprazole (Protonix Iv) 40 mg BID@06,18 IV Last administered on 09/21/16 05 :48; Admin Dose 40 MG; Start 09/20/16 at 06:00 Furosemide 20 mg 20 mg DAILY@06 IV Last administered on 09/21/16 05:48; Admin Dose 20 MG; Start 09/20/16 at 06:00 Levofloxacin/ Dextrose 100 ml @ 100 mls/hr Q48H IVPB Last administered on 09/19 23:18; Admin Dose 100 MLS/HR; Start 09/19/16 at 21:00 Norepinephrine 16 mg/Dextrose 500 ml @ 1.87 mls/hr TITRATE IV Last administered on 09/20/16 04:26; Admin Dose 9.37 MLS/HR; Start 09/20/16 at 02:00 Midazolam HCl (Versed) 50 ml @ 1 mls/hr TITRATE IV Last administered on 05:48; Admin Dose 6 MLS/HR; Start 09/20/16 at 02:00 ADAMARIS RAMIREZ Sep 21, 2016 10:09
--- NOTE | 2016-09-21 12:18 | CONS ---
DATE OF ADMISSION: 09/19/2016 DATE OF CONSULTATION: 09/21/2016 REASON FOR CONSULTATION: Congestive heart failure exacerbation and hypertension. REQUESTING PHYSICIAN: Dr. Solo from the hospitalist service. HISTORY OF PRESENT ILLNESS: Mr. Canela is an 81-year-old male with history of congestive heart failure, systolic, acute on chronic, last known ejection fraction 25% by echo July 2016, man ry artery disease, post coronary bypass graft surgery, paroxysmal atrial fibrillation on anticoagula tion, chronic renal failure at this time on hemodialysis, anemia, recurrent bouts of congestive hear t failure for which he has been [id number] who presented from hemodialysis with worsening shortness o f breath. Upon arrival temperature 97.9, blood pressure 90/41, pulse 83, respiratory rate 19, satur ation 100%. The patient's labs showed a white count of 5, hemoglobin 8.3, platelet count 145. Sodi um of 138, potassium 4.2, creatinine 1.98, BUN 33. Troponin negative. INR 2.71. The patient underwe nt a chest x-ray revealing cardiomegaly and on CT small pleural effusion. The patient's electrocard iogram with ventricular paced at a rate of 60. The patient required emergent intubation and admitte d to ICU where he remains intubated on pressor support. PAST MEDICAL HISTORY: As above in HPI. The patient had multiple recurrent admits for heart failure exacerbations complicated by sepsis and renal failure. MEDICATIONS CURRENTLY IN THE HOSPITAL: 1. Digoxin 0.125 mg every other day. 2. Vitamin C 500 mg daily. 3. Aspirin 81 daily. 4. Protonix 40 mg IV b.i.d. 5. Lasix 20 IV daily. 6. Levophed pressor support. 7. Xanax. 8. Apixaban 2.5 mg p.o. b.i.d. 9. Carvedilol 1.5/625 mg p.o. b.i.d. 10. Colace 200 mg at bedtime. 11. Levofloxacin every 48 hours. ALLERGIES: DIPYRONE. SOCIAL HISTORY: No tobacco, ETOH or illicit drug use. FAMILY HISTORY: No sudden cardiac or early CAD. REVIEW OF SYSTEMS: As above in HPI. CONSTITUTIONAL: No fevers, chills. PULMONARY: Respiratory failure, status post intubation. GASTROINTESTINAL: No vomiting. GENITOURINARY: No hematuria. Positive renal failure. PSYCHIATRIC: No documented psych history. NEUROLOGIC: Encephalopathy. CARDIOVASCULAR: Cardiomyopathy with decreased left ventricular ejection fraction, congestive heart failure. PHYSICAL EXAMINATION: VITAL SIGNS: Temperature 97.8, blood pressure most recently 102/40, pulse 60, respirations 16, satu rating 100%. GENERAL: The patient is intubated and sedated. NECK: JVP approximately 9 to 10 cm water. CHEST: Upper airway chest rhonchorous sounds. HEART: Regular rate and rhythm. Normal S1, S2, I/ systolic murmur, laterally displaced PMI. ABDOMEN: Positive bowel sounds, soft. EXTREMITIES: 1+ edema bilaterally. Skin breakdown at the feet bilaterally. Difficult to palpate di stal pulses bilaterally, posterior tibial. LABORATORIES: As above in [facility], with most recently from the INR 2.99. From today, sodium 135, potassium 2.1, BUN of 44, potassium 3.6. White blood cell count 4.9, hemoglobin 8.0, platelet count 126. ABG revealing a pH of 7.5. PAO2 123, pCO2 of 26. Digoxin level 2. IMAGING STUDIES: As above in HPI with a chest x-ray from the revealing mildly increased conges tive changes. ECG: As above in [facility]. No further electrocardiograms for my review at this time. IMPRESSION: 1. Hypotension/shock state, question cardiogenic versus septic unlikely as patient had a low EF wit h negative cardiac enzymes, nonacute event. 2. Congestive heart failure, systolic, acute on chronic. 3. Coronary artery disease, status post coronary artery bypass graft surgery. 4. Chronic kidney disease on hemodialysis. 5. Coagulopathy secondary to Eliquis. 6. History of paroxysmal atrial fibrillation. 7. Likely sepsis. 8. Elevated digoxin level. 9. Anemia, worsening. RECOMMENDATIONS: 1. At this time, would maintain patient on telemetry monitoring to follow rhythm and rate control c losely. 2. Would continue attempt to wean the patient's pressors as tolerated and continue broad-spectrum a ntibiotics and follow culture data closely. 3. Will hold the patient's digoxin at this time given elevated digoxin levels and patient will like ly require holding of Eliquis if continues worsening coagulopathy. 4. Hemodialysis for volume removal as tolerated. 5. Continue to trend the patient's cardiac enzymes to assess for any significant ongoing cardiac da mage. 6. Continue the patient's aspirin prophylaxis against cardiovascular events and hold the patient's carvedilol at this time in the setting of hypotension on pressor support. Thank you for allowing me to take part in the care of this patient. I will continue to follow along very closely with you. Further recommendations will be made as the patient progresses through his inpatient hospital clinical course. Dictated By: POLI ONOFRE/SHAHANA Conf#: [id number] DID#: [id number] CC: BOLA SOLO MD;*EndCC*
[2016-09-21 13:13] LABS: CREATINE KINASE < 20 IU/L (23-200)
[2016-09-21 13:20] LABS: CK-MB 0.56 ng/ml (0.0-2.4)
[2016-09-21 13:22] LABS: TROPONIN-I 0.063 ng/ml (0.00-0.12)
[2016-09-21] MEDS ORDERED: DEXTROSE 50% 50 ML SYRINGE IV PRN ×2 (14:00)
[2016-09-21] MEDS ORDERED: GLUCOSE GEL 15 GRAM TUBE BUCCAL PRN (14:00)
[2016-09-21] MEDS ORDERED: GLUCAGON 1 MG INJ IM PRN (14:00)
[2016-09-21] MEDS ORDERED: GLUCOSE GEL 15 GRAM TUBE PO PRN ×2 (14:00)
--- NOTE | 2016-09-21 14:22 | PN ---
Date/Time of Note Date/Time of Note DATE: 09/21/16 TIME: 14:16 Assessment/Plan VTE Prophylaxis VTE Prophylaxis Intervention: other (Eliquis) Lines/Catheters IV Catheter Type (from Nrs): PermaCath Urinary Cath still in place: Yes Reason Cath still needed: urinary retention Assessment/Plan Chief Complaint/Hosp Course Assessment/Plan: 81M with: 1. 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 Endstage CHF with exacerbation - CV team consulted, AICD in place - Lasix, low dose Coreg, f/u CV rec's 3. Chronic kidney disease on hemodialysis 3 times a week limited by hypotension - f/u renal rec's, HD as tolerated per Nephro 4. Shock ?cardiogenic r/o septic on pressor support - wean 5. Diabetes mellitus type 2 - add ISS 6. Paroxysmal atrial fibrillation, rate controlled - monitor, BB, eliquis 7. 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 8. Chronic liver cirrhosis with coagulopathy and mild hyperbilirubinemia and transaminitis likely associated with chronic CHF - monitor 9. Severe debility. 10. 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 11. LE cellulitis and ulcerations ? PVD Prognosis : very poor and guarded Hospitalist spoke extensively with his son and recommended hopsice care, remains full code at this time. Critical care time = 45 min Problems: Subjective 24 Hr Interval Summary Free Text/Dictation Pt still intubated, on pressor support. Exam/Review of Systems Vital Signs Vitals Vital Signs Date Time Temp Pulse Resp B/P Pulse Ox O2 Delivery O2 Flow Rate FiO2 09/21/16 13:04 63 16 100 30 09/21/16 10:30 102/40 Mechanical Ventilator 09/21/16 08:30 98.6 Intake and Output 09/20/16 09/20/16 09/21/16 14:59 22:59 06:59 Intake Total 198.46 ml 532.96 ml 205.49 ml Output Total 875 ml 510 ml 370 ml Balance -676.54 ml 22.96 ml -164.51 ml Exam Constitutional: frail, other (intubated and sedated, comfortable on vent) Psych: other (unable to assess) Head: normocephalic Eyes: PERRL ENMT: intubated Respiratory: diminished breath sounds, No crackles/rales Cardiovascular: irregular rhythm, murmurs/extra sounds Gastrointestinal: bowel sounds, distended, soft Genitourinary - Male: nl penis, nl scrotum Musculoskeletal: No nl extremities to inspection Neurological: No nl mental status Skin: rash or lesions (multiple superficial ulcers on both feet with surrounding cellulitis and edema) Results Result Diagram: 09/21/16 0900 09/21/16 0523 Results 24 hrs Laboratory Tests Test 09/20/16 18:15 09/21/16 05:00 09/21/16 05:23 09/21/16 07:55 Sodium Level 132 L 135 Potassium Level 3.6 3.6 Chloride Level 99 100 Carbon Dioxide Level 18 L 20 L Anion Gap 19 H 19 H Blood Urea Nitrogen 44 H 44 H Creatinine 1.95 H 2.17 H Glucose Level 67 #L 52 #L Calcium Level 8.2 L 8.7 Total Bilirubin 1.5 H Direct Bilirubin 0.20 Indirect Bilirubin 1.3 H Aspartate Amino Transf (AST/SGOT) 34 # Alanine Aminotransferase (ALT/SGPT) 26 Alkaline Phosphatase 74 Total Protein 5.3 L Albumin 3.0 L Globulin 2.30 Albumin/Globulin Ratio 1.30 Blood Gas Specimen Source Blood arterial Arterial Blood Date Drawn 09/21/2016 4:51:59 AM Arterial Blood pH (Temp corrected) 7.500 H Arterial Blood pCO2 (Temp correct) 26.7 L Arterial Blood pO2 (Temp corrected) 123.2 H Arterial Blood HCO3 20.4 L Arterial Blood Base Excess -2.1 Arterial Blood Oxygen Saturation 98.6 Sebastien Test ACCEPTAB Arterial Blood Gas Puncture Site Right Radial Arterial Blood Carboxyhemoglobin 1.1 Arterial Blood Methemoglobin 0.4 Blood Gas A-a O2 Differential 59.3 H Oxyhemoglobin Percent 97.1 Total Hemoglobin 9.1 L Blood Gas Temperature 37.0 Blood Gas Respiration Rate 16.0 Blood Gas Actual Respiration Rate 16 Blood Gas Modality VENT - AC FiO2 30.0 Blood Gas Tidal Volume 500.0 Blood Gas Low PEEP Setting 5.0 Blood Gas Notified Whom BR Blood Gas Notified Time 09/21/2016 4:58:42 AM Lactic Acid Level 1.8 Bedside Glucose 73 Test 09/21/16 09:00 09/21/16 12:23 White Blood Count 4.9 Red Blood Count 3.07 L Hemoglobin 8.0 L Hematocrit 27.5 L Mean Corpuscular Volume 89.6 Mean Corpuscular Hemoglobin 26.1 L Mean Corpuscular Hemoglobin Concent 29.1 L Red Cell Distribution Width 23.8 H Platelet Count 126 L Mean Platelet Volume Neutrophils % 83.4 H Lymphocytes % 10.9 L Monocytes % 4.9 Eosinophils % 0.6 Basophils % 0.0 Nucleated Red Blood Cells % 2.5 H Neutrophils # 4.1 Lymphocytes # 0.5 L Monocytes # 0.2 L Eosinophils # 0.0 Basophils # 0.0 Nucleated Red Blood Cells # 0.1 H Creatine Kinase < 20 L Creatine Kinase Index Creatinine Kinase MB (Mass) 0.56 Troponin I 0.063 Medications Medications Current Medications Apixaban (Eliquis) 2.5 mg BID PO Last administered on 09/21/16 09:20; Admin Dose 2.5 MG; Start 09/19/16 at 21:00 Ascorbic Acid (Vitamin C) 500 mg DAILY PO Last administered on 09/21/16 09:20 ; Admin Dose 500 MG; Start 09/20/16 at 09:00 Aspirin (Aspirin) 81 mg DAILY PO Last administered on 09/21/16 09:20; Admin Dose 81 MG; Start 09/20/16 at 09:00 Carvedilol (Coreg) 1.5625 mg BID PO Last administered on 09/20/16 20:47; Admin Dose 1.5625 MG; Start 09/19/16 at 21:00 Digoxin (Digoxin) 0.125 mg Q2D@13 PO ; Start 09/21/16 at 13:00; Status Future Hold Docusate Sodium (Colace) 200 mg QHS PO Last administered on 09/20/16 20:46; Admin Dose 200 MG; Start 09/19/16 at 21:00 Pantoprazole (Protonix Iv) 40 mg BID@06,18 IV Last administered on 09/21/16 05 :48; Admin Dose 40 MG; Start 09/20/16 at 06:00 Furosemide 20 mg 20 mg DAILY@06 IV Last administered on 09/21/16 05:48; Admin Dose 20 MG; Start 09/20/16 at 06:00 Levofloxacin/ Dextrose 100 ml @ 100 mls/hr Q48H IVPB Last administered on 09/19 23:18; Admin Dose 100 MLS/HR; Start 09/19/16 at 21:00 Norepinephrine 16 mg/Dextrose 500 ml @ 1.87 mls/hr TITRATE IV Last administered on 09/20/16 04:26; Admin Dose 9.37 MLS/HR; Start 09/20/16 at 02:00 Midazolam HCl (Versed) 50 ml @ 1 mls/hr TITRATE IV Last administered on 05:48; Admin Dose 6 MLS/HR; Start 09/20/16 at 02:00 Lidocaine (Xylocaine 1% (Mpf)) 5 ml ONCE ONCE SC ; Start 09/21/16 at 14:30; Stop 09/21/16 at 14:31; Status THERESA SERNA Sep 21, 2016 14:22
[2016-09-21] MEDS ORDERED: LIDOCAINE 1% (MPF) 5 ML VIAL SC ONE (14:30)
--- NOTE | 2016-09-21 14:54 | CONS ---
Date/Time of Note Date/Time of Note DATE: 09/21/16 TIME: 14:29 Assessment/Plan Assessment/Plan Chief Complaint/Hosp Course ID PROGRESS NOTE TOTAL ABX DAY # 3 => Vanco IV + Levaquin s/p Merrem 09/19 x1 24H INTERVAL SUMMARY * On pressors, cold shock w/hypothermic readings during admission, hypoglycemic , no fevers, increased Neuts % today * Sedated on Versed, needs central line -- PICC on order hospitalist team * Critically ill with multi-organ failure -- remains full code w/spouse in room -- patient is palliative/hospice care appropriate; nevertheless he remains on aggressive medical plan of care PHYSICAL EXAMINATION: GENERAL: 81 yo M orally intubated on the Vent HEENT: (+)Jaundice, (+)Icteric, NGT-> Secure, ETT-> secure to Vent NECK: IJ HD catheter CHEST: Rise symmetrical, rhonchi HEART: RRR (+)RA ABDOMEN: Distended, firmm hepatomegaly EXTREMITIES: Warm Decubs bilateral feet SKIN: ID ASSESSMENT: 81 yo M w/multi-organ system failure admitted from HD unit with: 1. Shock -> cardiogenic + septic + liver etiologies suspected 2. Severe sepsis with lactic acidosis secondary to HCAP and UTI * History of recurrent/recent BLL HCAP 3. Acute hypoxic respiratory failure -> intubated in the emergency room. 4. Acute CHF exacerbation w/progressive end-stage congestive heart failure. * Coronary artery disease with severe ischemic cardiomyopathy -> Hx of CABG, AICD placement. 5. Paroxysmal atrial fibrillation. 6. Chronic renal disease on hemodialysis, end-stage renal disease. 7. Adult-onset diabetes mellitus. 8. BLEXT Diabetic, ischemic, new ulcers and cellulitis both feet. 9. 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 10. Chronic cirrhosis of the liver with coagulopathy, mild hyperbilirubinemia and transaminitis. 11. 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 12. Severe debility. (-)MRSA Nares INVASIVES: * PIV, ETT, NGT, R-IJ HD catheter, ICD CURRENT ABX: TOTAL ABX DAY # 3 => Vanco IV + Levaquin s/p Merrem 09/19 x1 ID RECOMMENDATIONS: => 81 yo M w/multi-organ system failure end-stage renal, end-stage cardiomyopathy, liver failure w/hypoglycemia, acute respiratory failure-> doubt ABX with reverse the poor prognosis. * Continue current ABX * Patient is palliative/hospice care appropriate -> Promote ethic of futility vs autonomy . . Problems: Consultation Date/Type/Reason Admit Date/Time Sep 19, 2016 at 14:51 Initial Consult Date Type of Consultation: ID Exam/Review of Systems Vital Signs Vitals Vital Signs Date Time Temp Pulse Resp B/P Pulse Ox O2 Delivery O2 Flow Rate FiO2 09/21/16 13:04 63 16 100 30 09/21/16 10:30 102/40 Mechanical Ventilator 09/21/16 08:30 98.6 Intake and Output 09/20/16 09/20/16 09/21/16 15:00 23:00 07:00 Intake Total 302.21 ml 432.96 ml 186.37 ml Output Total 875 ml 515 ml 365 ml Balance -572.79 ml -82.04 ml -178.63 ml Results Result Diagram: 09/21/16 0900 09/21/16 0523 Results 24 hrs Laboratory Tests Test 09/20/16 18:15 09/21/16 05:00 09/21/16 05:23 09/21/16 07:55 Sodium Level 132 L 135 Potassium Level 3.6 3.6 Chloride Level 99 100 Carbon Dioxide Level 18 L 20 L Anion Gap 19 H 19 H Blood Urea Nitrogen 44 H 44 H Creatinine 1.95 H 2.17 H Glucose Level 67 #L 52 #L Calcium Level 8.2 L 8.7 Total Bilirubin 1.5 H Direct Bilirubin 0.20 Indirect Bilirubin 1.3 H Aspartate Amino Transf (AST/SGOT) 34 # Alanine Aminotransferase (ALT/SGPT) 26 Alkaline Phosphatase 74 Total Protein 5.3 L Albumin 3.0 L Globulin 2.30 Albumin/Globulin Ratio 1.30 Blood Gas Specimen Source Blood arterial Arterial Blood Date Drawn 09/21/2016 4:51:59 AM Arterial Blood pH (Temp corrected) 7.500 H Arterial Blood pCO2 (Temp correct) 26.7 L Arterial Blood pO2 (Temp corrected) 123.2 H Arterial Blood HCO3 20.4 L Arterial Blood Base Excess -2.1 Arterial Blood Oxygen Saturation 98.6 Sebastien Test ACCEPTAB Arterial Blood Gas Puncture Site Right Radial Arterial Blood Carboxyhemoglobin 1.1 Arterial Blood Methemoglobin 0.4 Blood Gas A-a O2 Differential 59.3 H Oxyhemoglobin Percent 97.1 Total Hemoglobin 9.1 L Blood Gas Temperature 37.0 Blood Gas Respiration Rate 16.0 Blood Gas Actual Respiration Rate 16 Blood Gas Modality VENT - AC FiO2 30.0 Blood Gas Tidal Volume 500.0 Blood Gas Low PEEP Setting 5.0 Blood Gas Notified Whom BR Blood Gas Notified Time 09/21/2016 4:58:42 AM Lactic Acid Level 1.8 Bedside Glucose 73 Test 09/21/16 09:00 09/21/16 12:23 White Blood Count 4.9 Red Blood Count 3.07 L Hemoglobin 8.0 L Hematocrit 27.5 L Mean Corpuscular Volume 89.6 Mean Corpuscular Hemoglobin 26.1 L Mean Corpuscular Hemoglobin Concent 29.1 L Red Cell Distribution Width 23.8 H Platelet Count 126 L Mean Platelet Volume Neutrophils % 83.4 H Lymphocytes % 10.9 L Monocytes % 4.9 Eosinophils % 0.6 Basophils % 0.0 Nucleated Red Blood Cells % 2.5 H Neutrophils # 4.1 Lymphocytes # 0.5 L Monocytes # 0.2 L Eosinophils # 0.0 Basophils # 0.0 Nucleated Red Blood Cells # 0.1 H Creatine Kinase < 20 L Creatine Kinase Index Creatinine Kinase MB (Mass) 0.56 Troponin I 0.063 Medications Medications Current Medications Apixaban (Eliquis) 2.5 mg BID PO Last administered on 09/21/16 09:20; Admin Dose 2.5 MG; Start 09/19/16 at 21:00 Ascorbic Acid (Vitamin C) 500 mg DAILY PO Last administered on 09/21/16 09:20 ; Admin Dose 500 MG; Start 09/20/16 at 09:00 Aspirin (Aspirin) 81 mg DAILY PO Last administered on 09/21/16 09:20; Admin Dose 81 MG; Start 09/20/16 at 09:00 Carvedilol (Coreg) 1.5625 mg BID PO Last administered on 09/20/16 20:47; Admin Dose 1.5625 MG; Start 09/19/16 at 21:00 Digoxin (Digoxin) 0.125 mg Q2D@13 PO ; Start 09/21/16 at 13:00; Status Future Hold Docusate Sodium (Colace) 200 mg QHS PO Last administered on 09/20/16 20:46; Admin Dose 200 MG; Start 09/19/16 at 21:00 Pantoprazole (Protonix Iv) 40 mg BID@06,18 IV Last administered on 09/21/16 05 :48; Admin Dose 40 MG; Start 09/20/16 at 06:00 Furosemide 20 mg 20 mg DAILY@06 IV Last administered on 09/21/16 05:48; Admin Dose 20 MG; Start 09/20/16 at 06:00 Levofloxacin/ Dextrose 100 ml @ 100 mls/hr Q48H IVPB Last administered on 09/19 23:18; Admin Dose 100 MLS/HR; Start 09/19/16 at 21:00 Norepinephrine 16 mg/Dextrose 500 ml @ 1.87 mls/hr TITRATE IV Last administered on 09/20/16 04:26; Admin Dose 9.37 MLS/HR; Start 09/20/16 at 02:00 Midazolam HCl (Versed) 50 ml @ 1 mls/hr TITRATE IV Last administered on 05:48; Admin Dose 6 MLS/HR; Start 09/20/16 at 02:00 Lidocaine (Xylocaine 1% (Mpf)) 5 ml ONCE ONCE SC ; Start 09/21/16 at 14:30; Stop 09/21/16 at 14:31 Insulin Aspart (Novolog Insulin Pen) NOVOLOG *MILD* ALGORI... Q4 SC ; Start at 17:00 Miscellaneous Information (* Miscellaneous Pharmacy Order) HYPOGLYCEMIA PROTOCOL w... ONCE ONCE XX ; Start 09/21/16 at 14:30; Stop 09/21/16 at 14:31 Miscellaneous Information (* Miscellaneous Pharmacy Order) Discontinue Glyburide , Glipizide,... ONCE ONCE XX ; Start 09/21/16 at 14:30; Stop 09/21/16 at 14:31 Miscellaneous Information (* Miscellaneous Pharmacy Order) Discontinue all previ... ONCE ONCE XX ; Start 09/21/16 at 14:30; Stop 09/21/16 at 14:31 Miscellaneous Information 1 ea NOTE XX ; Start 09/21/16 at 14:00 Glucose (Glutose) 15 gm Q15M PRN PO DECREASED GLUCOSE; Start 09/21/16 at 14:00 Glucose (Glutose) 22.5 gm Q15M PRN PO DECREASED GLUCOSE; Start 09/21/16 at 14: 00 Dextrose (D50w Syringe) 25 ml Q15M PRN IV DECREASED GLUCOSE; Start 09/21/16 at 14:00 Dextrose (D50w Syringe) 50 ml Q15M PRN IV DECREASED GLUCOSE; Start 09/21/16 at 14:00 Glucagon (Glucagen) 1 mg Q15M PRN IM DECREASED GLUCOSE; Start 09/21/16 at 14:00 Glucose (Glutose) 15 gm Q15M PRN BUCCAL DECREASED GLUCOSE; Start 09/21/16 at 14 :00 NAEL COY NP Sep 21, 2016 14:39
[2016-09-21] MEDS ORDERED: MIDAZOLAM DRIP 1 MG/ML in NS 100 ML IV SCH (15:30)
--- NOTE | 2016-09-21 16:50 | CONS ---
Date/Time of Note Date/Time of Note DATE: 09/21/16 TIME: 16:48 Assessment/Plan Assessment/Plan Chief Complaint/Hosp Course IMPRESSION: 1. Acute hypoxic respiratory failure. 2. Patient has a chronic systolic heart failure. 3. Chronic kidney disease requiring hemodialysis. 4. History of acute tubular necrosis. 5. Cardiomyopathy. 6. Anemia. 7. Neutropenia. 8. The patient has hypoalbuminemia. 9. Patient has ventilator dependent respiratory failure. 10. History of sepsis. 11. Septic shock. plan continue hd Problems: Consultation Date/Type/Reason Admit Date/Time Sep 19, 2016 at 14:51 Type of Consultation: renal 24 HR Interval Summary Subjective hx not possible: pt non-verbal, other (on vent) Exam/Review of Systems Vital Signs Vitals Vital Signs Date Time Temp Pulse Resp B/P Pulse Ox O2 Delivery O2 Flow Rate FiO2 09/21/16 16:00 97.7 60 16 107/42 100 Mechanical Ventilator 09/21/16 13:04 30 Intake and Output 09/20/16 09/20/16 09/21/16 15:00 23:00 07:00 Intake Total 302.21 ml 432.96 ml 186.37 ml Output Total 875 ml 515 ml 365 ml Balance -572.79 ml -82.04 ml -178.63 ml Exam Respiratory: diminished breath sounds Cardiovascular: regular rate and rhythm Gastrointestinal: bowel sounds (+), soft Extremities: edema (+) Neurological: lethargic Results Result Diagram: 09/21/16 0900 09/21/16 0523 Results 24 hrs Laboratory Tests Test 09/20/16 18:15 09/21/16 05:00 09/21/16 05:23 09/21/16 07:55 Sodium Level 132 L 135 Potassium Level 3.6 3.6 Chloride Level 99 100 Carbon Dioxide Level 18 L 20 L Anion Gap 19 H 19 H Blood Urea Nitrogen 44 H 44 H Creatinine 1.95 H 2.17 H Glucose Level 67 #L 52 #L Calcium Level 8.2 L 8.7 Total Bilirubin 1.5 H Direct Bilirubin 0.20 Indirect Bilirubin 1.3 H Aspartate Amino Transf (AST/SGOT) 34 # Alanine Aminotransferase (ALT/SGPT) 26 Alkaline Phosphatase 74 Total Protein 5.3 L Albumin 3.0 L Globulin 2.30 Albumin/Globulin Ratio 1.30 Blood Gas Specimen Source Blood arterial Arterial Blood Date Drawn 09/21/2016 4:51:59 AM Arterial Blood pH (Temp corrected) 7.500 H Arterial Blood pCO2 (Temp correct) 26.7 L Arterial Blood pO2 (Temp corrected) 123.2 H Arterial Blood HCO3 20.4 L Arterial Blood Base Excess -2.1 Arterial Blood Oxygen Saturation 98.6 Sebastien Test ACCEPTAB Arterial Blood Gas Puncture Site Right Radial Arterial Blood Carboxyhemoglobin 1.1 Arterial Blood Methemoglobin 0.4 Blood Gas A-a O2 Differential 59.3 H Oxyhemoglobin Percent 97.1 Total Hemoglobin 9.1 L Blood Gas Temperature 37.0 Blood Gas Respiration Rate 16.0 Blood Gas Actual Respiration Rate 16 Blood Gas Modality VENT - AC FiO2 30.0 Blood Gas Tidal Volume 500.0 Blood Gas Low PEEP Setting 5.0 Blood Gas Notified Whom BR Blood Gas Notified Time 09/21/2016 4:58:42 AM Lactic Acid Level 1.8 Bedside Glucose 73 Test 09/21/16 09:00 09/21/16 12:23 White Blood Count 4.9 Red Blood Count 3.07 L Hemoglobin 8.0 L Hematocrit 27.5 L Mean Corpuscular Volume 89.6 Mean Corpuscular Hemoglobin 26.1 L Mean Corpuscular Hemoglobin Concent 29.1 L Red Cell Distribution Width 23.8 H Platelet Count 126 L Mean Platelet Volume Neutrophils % 83.4 H Lymphocytes % 10.9 L Monocytes % 4.9 Eosinophils % 0.6 Basophils % 0.0 Nucleated Red Blood Cells % 2.5 H Neutrophils # 4.1 Lymphocytes # 0.5 L Monocytes # 0.2 L Eosinophils # 0.0 Basophils # 0.0 Nucleated Red Blood Cells # 0.1 H Creatine Kinase < 20 L Creatine Kinase Index Creatinine Kinase MB (Mass) 0.56 Troponin I 0.063 Medications Medications Current Medications Apixaban (Eliquis) 2.5 mg BID PO Last administered on 09/21/16 09:20; Admin Dose 2.5 MG; Start 09/19/16 at 21:00 Ascorbic Acid (Vitamin C) 500 mg DAILY PO Last administered on 09/21/16 09:20 ; Admin Dose 500 MG; Start 09/20/16 at 09:00 Aspirin (Aspirin) 81 mg DAILY PO Last administered on 09/21/16 09:20; Admin Dose 81 MG; Start 09/20/16 at 09:00 Carvedilol (Coreg) 1.5625 mg BID PO Last administered on 09/20/16 20:47; Admin Dose 1.5625 MG; Start 09/19/16 at 21:00 Digoxin (Digoxin) 0.125 mg Q2D@13 PO ; Start 09/21/16 at 13:00; Status Future Hold Docusate Sodium (Colace) 200 mg QHS PO Last administered on 09/20/16 20:46; Admin Dose 200 MG; Start 09/19/16 at 21:00 Pantoprazole (Protonix Iv) 40 mg BID@06,18 IV Last administered on 09/21/16 05 :48; Admin Dose 40 MG; Start 09/20/16 at 06:00 Furosemide 20 mg 20 mg DAILY@06 IV Last administered on 09/21/16 05:48; Admin Dose 20 MG; Start 09/20/16 at 06:00 Levofloxacin/ Dextrose 100 ml @ 100 mls/hr Q48H IVPB Last administered on 09/19 23:18; Admin Dose 100 MLS/HR; Start 09/19/16 at 21:00 Norepinephrine 16 mg/Dextrose 500 ml @ 1.87 mls/hr TITRATE IV Last administered on 09/20/16 04:26; Admin Dose 9.37 MLS/HR; Start 09/20/16 at 02:00 Midazolam HCl (Versed) 50 ml @ 1 mls/hr TITRATE IV Last administered on 15:03; Admin Dose 6 MLS/HR; Start 09/20/16 at 02:00 Insulin Aspart (Novolog Insulin Pen) NOVOLOG *MILD* ALGORI... Q4 SC ; Start at 17:00 Miscellaneous Information 1 ea NOTE XX ; Start 09/21/16 at 14:00 Glucose (Glutose) 15 gm Q15M PRN PO DECREASED GLUCOSE; Start 09/21/16 at 14:00 Glucose (Glutose) 22.5 gm Q15M PRN PO DECREASED GLUCOSE; Start 09/21/16 at 14: 00 Dextrose (D50w Syringe) 25 ml Q15M PRN IV DECREASED GLUCOSE; Start 09/21/16 at 14:00 Dextrose (D50w Syringe) 50 ml Q15M PRN IV DECREASED GLUCOSE; Start 09/21/16 at 14:00 Glucagon (Glucagen) 1 mg Q15M PRN IM DECREASED GLUCOSE; Start 09/21/16 at 14:00 Glucose 15 gm 15 gm Q15M PRN BUCCAL DECREASED GLUCOSE; Start 09/21/16 at 14:00 Midazolam HCl/ Sodium Chloride (Versed/NS) 100 ml @ 1 mls/hr TITRATE IV ; Start 09/21/16 at 15:30 Miscellaneous Information (*Rx Drug Level Order Reminder*) VANCOMYCIN RANDOM LEVEL IN AM ONCE ONCE XX ; Start 09/22/16 at 05:00; Stop 09/22/16 at 05:01 YANIRA HART MD Sep 21, 2016 16:50
[2016-09-21] MEDS: INSULIN ASPART [NOVOLOG] 3 ML PEN SC SCH ×2 (17:00→21:00)
[2016-09-21 19:13] LABS: TROPONIN-I 0.054 ng/ml (0.00-0.12)
[2016-09-21 19:14] LABS: CK-MB 0.74 ng/ml (0.0-2.4); CREATINE KINASE < 20 IU/L (23-200)
[2016-09-21] MEDS: DOCUSATE SODIUM 100 MG CAP PO SCH (20:46)
[2016-09-21] MEDS: LEVOFLOXACIN 500MG/D5W (PMX) 100 ML IVPB SCH (20:47)
[2016-09-22] VITALS (101 sets, daily range): BP systolic 78–126; BP diastolic 35–56; PULSE 60–71; RESP 9–24
[2016-09-22] MEDS: INSULIN ASPART [NOVOLOG] 3 ML PEN SC SCH ×6 (01:00→20:47)
[2016-09-22] MEDS: PANTOPRAZOLE 40 MG INJ IV SCH ×2 (05:39→17:10)
[2016-09-22] MEDS: FUROSEMIDE 20 MG INJ IV SCH (05:40)
[2016-09-22 06:23] LABS: ADD SCAN DIFF NO
[2016-09-22 06:32] LABS: ABNORMAL IP MESSAGE 1; EOSINOPHILS # 0.1 10^3/ul (0.0-0.5); HEMATOCRIT 27.8 % (42.0-52.0); HEMOGLOBIN 8.3 g/dl (14.0-18.0); LYMPHOCYTES # 0.9 10^3/ul (0.8-2.9); MEAN CORPUSCULAR HEMOGLOBIN 25.4 pg (29.0-33.0); MEAN CORPUSCULAR HGB CONC 29.9 g/dl (32.0-37.0); MONOCYTE # 0.4 10^3/ul (0.3-0.9); MONOCYTES % 7.7 % (0.0-11.0); NEUTROPHIL # 3.5 10^3/ul (1.6-7.5); NEUTROPHILS % 72.7 % (39.0-77.0); NUCLEATED RED BLOOD CELLS # 0.1 10^3/ul (0.0-0.0); NUCLEATED RED BLOOD CELLS% 1.7 /100WBC (0.0-0.0); PLATELET COUNT 108 10^3/UL (140-415); RED BLOOD COUNT 3.27 10^6/ul (4.70-6.10); RED CELL DISTRIBUTION WIDTH 23.6 % (11.5-14.5); WHITE BLOOD COUNT 4.8 10^3/ul (4.8-10.8)
[2016-09-22 06:36] LABS: INR 2.68; PROTIME 28.9 Sec (12.2-14.2); PT RATIO 2.3
[2016-09-22 06:52] LABS: CREATININE 1.5 mg/dl (0.61-1.24)
[2016-09-22 06:53] LABS: CALCIUM 8.5 mg/dl (8.4-10.2)
[2016-09-22] MEDS: VANCOMYCIN 1 GM in NS 250 ML IVPB SCH (09:32)
[2016-09-22] MEDS: APIXABAN 5 MG TABLET PO SCH ×2 (09:32→20:47)
[2016-09-22] MEDS: ASCORBIC ACID 500 MG TAB PO SCH (09:32)
[2016-09-22] MEDS: ASPIRIN 81 MG TAB PO SCH (09:32)
--- NOTE | 2016-09-22 10:10 | CONS ---
Date/Time of Note Date/Time of Note DATE: 09/22/16 TIME: 10:07 Assessment/Plan Assessment/Plan Additional Assessment/Plan Ventilator settings; AC of 16, tidal volume 500, PEEP of 5, 30% FiO2. Assessment recommendations; next 1. Patient admitted for recurrent respiratory failure due to flash pulmonary edema. 2. Underlying cardiomyopathy. 3. Sepsis. 4. End-stage renal disease. 5. Prior history of coronary artery disease, status post bypass surgery. 6. History of cardiac arrhythmia, status post pacemaker implantation in the past. 7. Poor mental status. Continue current supportive care. Patient's prognosis is extremely poor. 35 minutes of critical care time was spent evaluating the patient. Consultation Date/Type/Reason Admit Date/Time Sep 19, 2016 at 14:51 Type of Consultation: Pulmonary/critical care 24 HR Interval Summary Free Text/Dictation Patient condition remains critical. Remains essentially unresponsive. Has remained hemodynamically stable. General exam; elderly male, orally intubated, unresponsive. Currently in no distress. Exam/Review of Systems Vital Signs Vitals Vital Signs Date Time Temp Pulse Resp B/P Pulse Ox O2 Delivery O2 Flow Rate FiO2 09/22/16 06:00 60 16 101/41 100 Mechanical Ventilator 09/22/16 05:50 30 09/22/16 04:00 97.2 Intake and Output 09/21/16 09/21/16 09/22/16 14:59 22:59 06:59 Intake Total 501.87 ml 106.85 ml 74.96 ml Output Total 2645 ml 445 ml 255 ml Balance -2143.13 ml -338.15 ml -180.04 ml Exam HEENT exam is; supple neck, positive JVD. No lymphadenopathy. Midline trachea. Patient had bilateral cataracts. He is edentulous. No neck masses. No thyromegaly. No neck bruits. Chest examination; diminished but clear breath sound. There is a pacemaker in the left chest wall. There is a well-healed sternal scar. Abdomen examination; soft, nondistended. No organomegaly. Bowel sounds audible. Extremity examination; no peripheral edema. [employer] SAL[employer] REPRESENTATIVE examination a micro patient remains unresponsive. Results Result Diagram: 09/22/16 0525 09/22/16 0525 Results 24 hrs Laboratory Tests Test 09/21/16 12:23 09/21/16 17:42 09/21/16 18:03 09/21/16 20:50 Creatine Kinase < 20 L < 20 L Creatine Kinase Index Creatinine Kinase MB (Mass) 0.56 0.74 Troponin I 0.063 0.054 Bedside Glucose 100 109 Test 09/22/16 00:59 09/22/16 05:12 09/22/16 05:25 09/22/16 09:30 Bedside Glucose 106 105 107 White Blood Count 4.8 Red Blood Count 3.27 L Hemoglobin 8.3 L Hematocrit 27.8 L Mean Corpuscular Volume 85.0 Mean Corpuscular Hemoglobin 25.4 L Mean Corpuscular Hemoglobin Concent 29.9 L Red Cell Distribution Width 23.6 H Platelet Count 108 L Mean Platelet Volume 11.0 H Neutrophils % 72.7 Lymphocytes % 18.0 Monocytes % 7.7 Eosinophils % 1.0 Basophils % 0.0 Nucleated Red Blood Cells % 1.7 H Neutrophils # 3.5 Lymphocytes # 0.9 Monocytes # 0.4 Eosinophils # 0.1 Basophils # 0.0 Nucleated Red Blood Cells # 0.1 H Prothrombin Time 28.9 H Prothrombin Time Ratio 2.3 INR International Normalized Ratio 2.68 Sodium Level 137 Potassium Level 3.0 L Chloride Level 101 Carbon Dioxide Level 25 Anion Gap 14 Blood Urea Nitrogen 27 #H Creatinine 1.50 H Glucose Level 95 # Calcium Level 8.5 Random Vancomycin Level 12.3 Medications Medications Current Medications Apixaban (Eliquis) 2.5 mg BID PO Last administered on 09/22/16 09:32; Admin Dose 2.5 MG; Start 09/19/16 at 21:00 Ascorbic Acid (Vitamin C) 500 mg DAILY PO Last administered on 09/22/16 09:32 ; Admin Dose 500 MG; Start 09/20/16 at 09:00 Aspirin (Aspirin) 81 mg DAILY PO Last administered on 09/22/16 09:32; Admin Dose 81 MG; Start 09/20/16 at 09:00 Carvedilol (Coreg) 1.5625 mg BID PO Last administered on 09/21/16 20:47; Admin Dose 1.5625 MG; Start 09/19/16 at 21:00 Digoxin (Digoxin) 0.125 mg Q2D@13 PO ; Start 09/21/16 at 13:00; Status Future Hold Docusate Sodium (Colace) 200 mg QHS PO Last administered on 09/21/16 20:46; Admin Dose 200 MG; Start 09/19/16 at 21:00 Pantoprazole (Protonix Iv) 40 mg BID@06,18 IV Last administered on 09/22/16 05 :39; Admin Dose 40 MG; Start 09/20/16 at 06:00 Furosemide 20 mg 20 mg DAILY@06 IV Last administered on 09/22/16 05:40; Admin Dose 20 MG; Start 09/20/16 at 06:00 Levofloxacin/ Dextrose 100 ml @ 100 mls/hr Q48H IVPB Last administered on 09/21 20:47; Admin Dose 100 MLS/HR; Start 09/19/16 at 21:00 Norepinephrine 16 mg/Dextrose 500 ml @ 1.87 mls/hr TITRATE IV Last administered on 09/20/16 04:26; Admin Dose 9.37 MLS/HR; Start 09/20/16 at 02:00 Midazolam HCl (Versed) 50 ml @ 1 mls/hr TITRATE IV Last administered on 15:03; Admin Dose 6 MLS/HR; Start 09/20/16 at 02:00 Insulin Aspart (Novolog Insulin Pen) NOVOLOG *MILD* ALGORI... Q4 SC ; Start at 17:00 Miscellaneous Information 1 ea NOTE XX ; Start 09/21/16 at 14:00 Glucose (Glutose) 15 gm Q15M PRN PO DECREASED GLUCOSE; Start 09/21/16 at 14:00 Glucose (Glutose) 22.5 gm Q15M PRN PO DECREASED GLUCOSE; Start 09/21/16 at 14: 00 Dextrose (D50w Syringe) 25 ml Q15M PRN IV DECREASED GLUCOSE; Start 09/21/16 at 14:00 Dextrose (D50w Syringe) 50 ml Q15M PRN IV DECREASED GLUCOSE; Start 09/21/16 at 14:00 Glucagon (Glucagen) 1 mg Q15M PRN IM DECREASED GLUCOSE; Start 09/21/16 at 14:00 Glucose 15 gm 15 gm Q15M PRN BUCCAL DECREASED GLUCOSE; Start 09/21/16 at 14:00 Midazolam HCl 100 mg/Sodium Chloride 100 ml @ 1 mls/hr TITRATE IV ; Start at 15:30 Vancomycin HCl (Vancocin) 250 ml @ 125 mls/hr Q36H IVPB Last administered on t 09:32; Admin Dose 125 MLS/HR; Start 09/22/16 at 08:00 ADAMARIS RAMIREZ Sep 22, 2016 10:10
--- NOTE | 2016-09-22 12:26 | CONS ---
Date/Time of Note Date/Time of Note DATE: 09/22/16 TIME: 12:24 Assessment/Plan Assessment/Plan Additional Assessment/Plan 1. Hypotension/shock state, question cardiogenic versus septic unlikely as patient had a low EF with negative cardiac enzymes, nonacute event. NO intervention planned now, con't BP support. 2. Congestive heart failure, systolic, acute on chronic - remove fluid as tolerated. 3. Coronary artery disease, status post coronary artery bypass graft surgery. 4. Chronic kidney disease on hemodialysis. 5. Coagulopathy secondary to Eliquis. 6. History of paroxysmal atrial fibrillation - now paced. 7. Likely sepsis. 8. Elevated digoxin level. 9. Anemia, worsening. Consultation Date/Type/Reason Admit Date/Time Sep 19, 2016 at 14:51 Initial Consult Date Type of Consultation: Pulmonary/critical care 24 HR Interval Summary Free Text/Dictation NO acute change - acute on chronic illness - con't supportive care. Pacer with good function. ROS: No fever, no chills, no nausea, no vomiting, no diarrhea/constipation No recent weight changes No chest pain, no PND, no orthopnea No dizziness, blurred vision No thirst, no heat or cold intolerance (per nurse) Exam/Review of Systems Vital Signs Vitals Vital Signs Date Time Temp Pulse Resp B/P Pulse Ox O2 Delivery O2 Flow Rate FiO2 09/22/16 10:45 65 16 123/42 100 Mechanical Ventilator 09/22/16 08:00 30 09/22/16 08:00 97.5 Intake and Output 09/21/16 09/21/16 09/22/16 15:00 23:00 07:00 Intake Total 516.24 ml 101.85 ml 74.96 ml Output Total 2645 ml 485 ml 215 ml Balance -2128.76 ml -383.15 ml -140.04 ml Exam General: WN/WD/NAD, AOx 0 HEENT: Unicetric/atraumatic/EOMI (does not follow commands) NECK: JVD elevated, no thyromegaly, intub Lymph: no lymphadenopathy HEART: regular with no S3, II/ systolic murmur at apex LUNGS: Coarse sounds ABD: soft, NT, ND, +BS : Intact Neuro: non focal SKIN: chronic changes EXT: trace edema Results Result Diagram: 09/22/1652409/22/16524 Results 24 hrs Laboratory Tests Test 09/21/16 17:42 09/21/16 18:03 09/21/16 20:50 09/22/16 00:59 Bedside Glucose 100 109 106 Creatine Kinase < 20 L Creatine Kinase Index Creatinine Kinase MB (Mass) 0.74 Troponin I 0.054 Test 09/22/16 05:12 09/22/16 05:25 09/22/16 09:30 Bedside Glucose 105 107 White Blood Count 4.8 Red Blood Count 3.27 L Hemoglobin 8.3 L Hematocrit 27.8 L Mean Corpuscular Volume 85.0 Mean Corpuscular Hemoglobin 25.4 L Mean Corpuscular Hemoglobin Concent 29.9 L Red Cell Distribution Width 23.6 H Platelet Count 108 L Mean Platelet Volume 11.0 H Neutrophils % 72.7 Lymphocytes % 18.0 Monocytes % 7.7 Eosinophils % 1.0 Basophils % 0.0 Nucleated Red Blood Cells % 1.7 H Neutrophils # 3.5 Lymphocytes # 0.9 Monocytes # 0.4 Eosinophils # 0.1 Basophils # 0.0 Nucleated Red Blood Cells # 0.1 H Prothrombin Time 28.9 H Prothrombin Time Ratio 2.3 INR International Normalized Ratio 2.68 Sodium Level 137 Potassium Level 3.0 L Chloride Level 101 Carbon Dioxide Level 25 Anion Gap 14 Blood Urea Nitrogen 27 #H Creatinine 1.50 H Glucose Level 95 # Calcium Level 8.5 Random Vancomycin Level 12.3 Medications Medications Current Medications Apixaban (Eliquis) 2.5 mg BID PO Last administered on 09/22/16 09:32; Admin Dose 2.5 MG; Start 09/19/16 at 21:00 Ascorbic Acid (Vitamin C) 500 mg DAILY PO Last administered on 09/22/16 09:32 ; Admin Dose 500 MG; Start 09/20/16 at 09:00 Aspirin (Aspirin) 81 mg DAILY PO Last administered on 09/22/16 09:32; Admin Dose 81 MG; Start 09/20/16 at 09:00 Carvedilol (Coreg) 1.5625 mg BID PO Last administered on 09/21/16 20:47; Admin Dose 1.5625 MG; Start 09/19/16 at 21:00 Digoxin (Digoxin) 0.125 mg Q2D@13 PO ; Start 09/21/16 at 13:00; Status Future Hold Docusate Sodium (Colace) 200 mg QHS PO Last administered on 09/21/16 20:46; Admin Dose 200 MG; Start 09/19/16 at 21:00 Pantoprazole (Protonix Iv) 40 mg BID@06,18 IV Last administered on 09/22/16 05 :39; Admin Dose 40 MG; Start 09/20/16 at 06:00 Furosemide 20 mg 20 mg DAILY@06 IV Last administered on 09/22/16 05:40; Admin Dose 20 MG; Start 09/20/16 at 06:00 Levofloxacin/ Dextrose 100 ml @ 100 mls/hr Q48H IVPB Last administered on 09/21 20:47; Admin Dose 100 MLS/HR; Start 09/19/16 at 21:00 Norepinephrine 16 mg/Dextrose 500 ml @ 1.87 mls/hr TITRATE IV Last administered on 09/20/16 04:26; Admin Dose 9.37 MLS/HR; Start 09/20/16 at 02:00 Midazolam HCl (Versed) 50 ml @ 1 mls/hr TITRATE IV Last administered on 15:03; Admin Dose 6 MLS/HR; Start 09/20/16 at 02:00 Insulin Aspart (Novolog Insulin Pen) NOVOLOG *MILD* ALGORI... Q4 SC ; Start at 17:00 Miscellaneous Information 1 ea NOTE XX ; Start 09/21/16 at 14:00 Glucose (Glutose) 15 gm Q15M PRN PO DECREASED GLUCOSE; Start 09/21/16 at 14:00 Glucose (Glutose) 22.5 gm Q15M PRN PO DECREASED GLUCOSE; Start 09/21/16 at 14: 00 Dextrose (D50w Syringe) 25 ml Q15M PRN IV DECREASED GLUCOSE; Start 09/21/16 at 14:00 Dextrose (D50w Syringe) 50 ml Q15M PRN IV DECREASED GLUCOSE; Start 09/21/16 at 14:00 Glucagon (Glucagen) 1 mg Q15M PRN IM DECREASED GLUCOSE; Start 09/21/16 at 14:00 Glucose 15 gm 15 gm Q15M PRN BUCCAL DECREASED GLUCOSE; Start 09/21/16 at 14:00 Midazolam HCl 100 mg/Sodium Chloride 100 ml @ 1 mls/hr TITRATE IV ; Start at 15:30 Vancomycin HCl (Vancocin) 250 ml @ 125 mls/hr Q36H IVPB Last administered on t 09:32; Admin Dose 125 MLS/HR; Start 09/22/16 at 08:00 DODIE OLMSTEAD MD Sep 22, 2016 12:26
[2016-09-22] MEDS ORDERED: LIDOCAINE 1% (MPF) 5 ML VIAL SC SCH (13:00)
--- NOTE | 2016-09-22 14:47 | PN ---
Date/Time of Note Date/Time of Note DATE: 09/22/16 TIME: 14:45 Assessment/Plan VTE Prophylaxis VTE Prophylaxis Intervention: other (Eliquis) Lines/Catheters IV Catheter Type (from Nrs): permacath Urinary Cath still in place: Yes Reason Cath still needed: urinary retention Assessment/Plan Chief Complaint/Hosp Course Assessment/Plan: 81M with: 1. 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 Endstage CHF with exacerbation - CV team consulted, AICD in place - Lasix, low dose Coreg, f/u CV rec's 3. Chronic kidney disease on hemodialysis 3 times a week limited by hypotension - f/u renal rec's, HD as tolerated per Nephro 4. Shock ?cardiogenic r/o septic on pressor support - wean 5. Diabetes mellitus type 2 - ISS 6. Paroxysmal atrial fibrillation, rate controlled - monitor, BB, eliquis 7. 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 8. Chronic liver cirrhosis with coagulopathy and mild hyperbilirubinemia and transaminitis likely associated with chronic CHF - monitor 9. Severe debility. 10. 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 11. LE cellulitis and ulcerations ? PVD Prognosis : very poor and guarded Hospitalist spoke extensively with his son and recommended hopsice care a few days ago, remains full code at this time. Family conference to possibly be scheduled in 1-2 days as well. Critical care time = 45 min Problems: Subjective 24 Hr Interval Summary Free Text/Dictation Pt still intubated. Had HD yesterday. Exam/Review of Systems Vital Signs Vitals Vital Signs Date Time Temp Pulse Resp B/P Pulse Ox O2 Delivery O2 Flow Rate FiO2 09/22/16 13:00 64 18 112/43 100 Mechanical Ventilator 09/22/16 12:00 97.8 09/22/16 08:00 30 Intake and Output 09/21/16 09/21/16 09/22/16 15:00 23:00 07:00 Intake Total 516.24 ml 101.85 ml 74.96 ml Output Total 2645 ml 485 ml 215 ml Balance -2128.76 ml -383.15 ml -140.04 ml Exam Constitutional: frail, other (intubated and sedated, comfortable on vent) Psych: other (unable to assess) Head: normocephalic Eyes: PERRL ENMT: intubated Respiratory: diminished breath sounds, No crackles/rales Cardiovascular: irregular rhythm, murmurs/extra sounds Gastrointestinal: bowel sounds, distended, soft Genitourinary - Male: nl penis, nl scrotum Musculoskeletal: No nl extremities to inspection Neurological: No nl mental status Skin: rash or lesions (multiple superficial ulcers on both feet with surrounding cellulitis and edema) Results Result Diagram: 09/22/1652409/22/16524 Results 24 hrs Laboratory Tests Test 09/21/16 17:42 09/21/16 18:03 09/21/16 20:50 09/22/16 00:59 Bedside Glucose 100 109 106 Creatine Kinase < 20 L Creatine Kinase Index Creatinine Kinase MB (Mass) 0.74 Troponin I 0.054 Test 09/22/16 05:12 09/22/16 05:25 09/22/16 09:30 09/22/16 14:10 Bedside Glucose 105 107 109 White Blood Count 4.8 Red Blood Count 3.27 L Hemoglobin 8.3 L Hematocrit 27.8 L Mean Corpuscular Volume 85.0 Mean Corpuscular Hemoglobin 25.4 L Mean Corpuscular Hemoglobin Concent 29.9 L Red Cell Distribution Width 23.6 H Platelet Count 108 L Mean Platelet Volume 11.0 H Neutrophils % 72.7 Lymphocytes % 18.0 Monocytes % 7.7 Eosinophils % 1.0 Basophils % 0.0 Nucleated Red Blood Cells % 1.7 H Neutrophils # 3.5 Lymphocytes # 0.9 Monocytes # 0.4 Eosinophils # 0.1 Basophils # 0.0 Nucleated Red Blood Cells # 0.1 H Prothrombin Time 28.9 H Prothrombin Time Ratio 2.3 INR International Normalized Ratio 2.68 Sodium Level 137 Potassium Level 3.0 L Chloride Level 101 Carbon Dioxide Level 25 Anion Gap 14 Blood Urea Nitrogen 27 #H Creatinine 1.50 H Glucose Level 95 # Calcium Level 8.5 Random Vancomycin Level 12.3 Medications Medications Current Medications Apixaban (Eliquis) 2.5 mg BID PO Last administered on 09/22/16 09:32; Admin Dose 2.5 MG; Start 09/19/16 at 21:00 Ascorbic Acid (Vitamin C) 500 mg DAILY PO Last administered on 09/22/16 09:32 ; Admin Dose 500 MG; Start 09/20/16 at 09:00 Aspirin (Aspirin) 81 mg DAILY PO Last administered on 09/22/16 09:32; Admin Dose 81 MG; Start 09/20/16 at 09:00 Carvedilol (Coreg) 1.5625 mg BID PO Last administered on 09/21/16 20:47; Admin Dose 1.5625 MG; Start 09/19/16 at 21:00 Digoxin (Digoxin) 0.125 mg Q2D@13 PO ; Start 09/21/16 at 13:00; Status Future Hold Docusate Sodium (Colace) 200 mg QHS PO Last administered on 09/21/16 20:46; Admin Dose 200 MG; Start 09/19/16 at 21:00 Pantoprazole (Protonix Iv) 40 mg BID@06,18 IV Last administered on 09/22/16 05 :39; Admin Dose 40 MG; Start 09/20/16 at 06:00 Furosemide 20 mg 20 mg DAILY@06 IV Last administered on 09/22/16 05:40; Admin Dose 20 MG; Start 09/20/16 at 06:00 Levofloxacin/ Dextrose 100 ml @ 100 mls/hr Q48H IVPB Last administered on 09/21 20:47; Admin Dose 100 MLS/HR; Start 09/19/16 at 21:00 Norepinephrine 16 mg/Dextrose 500 ml @ 1.87 mls/hr TITRATE IV Last administered on 09/20/16 04:26; Admin Dose 9.37 MLS/HR; Start 09/20/16 at 02:00 Midazolam HCl (Versed) 50 ml @ 1 mls/hr TITRATE IV Last administered on 15:03; Admin Dose 6 MLS/HR; Start 09/20/16 at 02:00 Insulin Aspart (Novolog Insulin Pen) NOVOLOG *MILD* ALGORI... Q4 SC ; Start at 17:00 Miscellaneous Information 1 ea NOTE XX ; Start 09/21/16 at 14:00 Glucose (Glutose) 15 gm Q15M PRN PO DECREASED GLUCOSE; Start 09/21/16 at 14:00 Glucose (Glutose) 22.5 gm Q15M PRN PO DECREASED GLUCOSE; Start 09/21/16 at 14: 00 Dextrose (D50w Syringe) 25 ml Q15M PRN IV DECREASED GLUCOSE; Start 09/21/16 at 14:00 Dextrose (D50w Syringe) 50 ml Q15M PRN IV DECREASED GLUCOSE; Start 09/21/16 at 14:00 Glucagon (Glucagen) 1 mg Q15M PRN IM DECREASED GLUCOSE; Start 09/21/16 at 14:00 Glucose 15 gm 15 gm Q15M PRN BUCCAL DECREASED GLUCOSE; Start 09/21/16 at 14:00 Midazolam HCl 100 mg/Sodium Chloride 100 ml @ 1 mls/hr TITRATE IV ; Start at 15:30 Vancomycin HCl (Vancocin) 250 ml @ 125 mls/hr Q36H IVPB Last administered on t 09:32; Admin Dose 125 MLS/HR; Start 09/22/16 at 08:00 Lidocaine 5 ml 5 ml ONCE SC ; Start 09/22/16 at 13:00; Stop 09/23/16 at 12:59 Potassium Chloride/Sodium Chloride (KCl/NS) 110 ml @ 55 mls/hr ONCE ONCE IVPB ; Start 09/22/16 at 15:00; Stop 09/22/16 at 16:59; Status THERESA SERNA Sep 22, 2016 14:47
--- NOTE | 2016-09-22 15:17 | CONS ---
Date/Time of Note Date/Time of Note DATE: 09/22/16 TIME: 15:09 Assessment/Plan Assessment/Plan Chief Complaint/Hosp Course ID PROGRESS NOTE TOTAL ABX DAY # 4 => Vanco IV + Levaquin + Cancidas #1 s/p Merrem 09/19 x1 NEW MICRO RESULTS: URINE CULTURE Final Organism 1 FUNMILAYO ALBICANS COLONY COUNT 50,000 - 60,000 CFU/ml 24H INTERVAL SUMMARY * No fevers, (+)Jaundice -- warm Nelda hugger blanket Tx On pressors, cold shock w/hypothermic readings during admission, hypoglycemic, no fevers, * WBC normal w/Neuts normalized today after increased Neuts % yesterday * Sedated on Versed * Critically ill with multi-organ failure -- remains full code w/spouse in room -- patient is palliative/hospice care appropriate; nevertheless he remains on aggressive medical plan of care PHYSICAL EXAMINATION: GENERAL: 81 yo M orally intubated on the Vent HEENT: (+)Jaundice, (+)Icteric, NGT-> Secure, ETT-> secure to Vent NECK: IJ HD catheter CHEST: Rise symmetrical, rhonchi HEART: RRR (+)RA ABDOMEN: Distended, firmm hepatomegaly EXTREMITIES: Warm Decubs bilateral feet SKIN: ID ASSESSMENT: 81 yo M w/multi-organ system failure admitted from HD unit with: 1. Shock -> cardiogenic + septic + liver etiologies suspected 2. Severe sepsis with lactic acidosis secondary to HCAP and UTI * History of recurrent/recent BLL HCAP * Yeast UTI URINE CULTURE Final Organism 1 FUNMILAYO ALBICANS COLONY COUNT 50,000 - 60,000 CFU/ml 3. Acute hypoxic respiratory failure -> intubated in the emergency room. 4. Acute CHF exacerbation w/progressive end-stage congestive heart failure. * Coronary artery disease with severe ischemic cardiomyopathy -> Hx of CABG, ICD placement. 5. Paroxysmal atrial fibrillation. 6. Chronic renal disease on hemodialysis, end-stage renal disease. 7. Adult-onset diabetes mellitus. 8. BLEXT Diabetic, ischemic, new ulcers and cellulitis both feet. 9. 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 10. Chronic cirrhosis of the liver with coagulopathy, mild hyperbilirubinemia and transaminitis. 11. 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 12. Severe debility. (-)MRSA Nares INVASIVES: * PIV, ETT, NGT, R-IJ HD catheter, ICD CURRENT ABX: TOTAL ABX DAY 4 => Vanco IV + Levaquin + Cancidas #1 s/p Merrem 09/19 x1 ID RECOMMENDATIONS: => 81 yo M w/multi-organ system failure end-stage renal, end-stage cardiomyopathy, liver failure w/hypoglycemia, acute respiratory failure-> doubt ABX with reverse the poor prognosis. * Continue current ABX + add antifungal for yeast UTI = Cancidas (Diflucan deferred due to drug-drug interactions) * Change FC due to yeast * Patient is palliative/hospice care appropriate -> Promote ethic of futility vs autonomy . . Problems: Consultation Date/Type/Reason Admit Date/Time Sep 19, 2016 at 14:51 Type of Consultation: ID Exam/Review of Systems Vital Signs Vitals Vital Signs Date Time Temp Pulse Resp B/P Pulse Ox O2 Delivery O2 Flow Rate FiO2 09/22/16 13:00 64 18 112/43 100 Mechanical Ventilator 09/22/16 12:00 97.8 09/22/16 08:00 30 Intake and Output 09/21/16 09/21/16 09/22/16 15:00 23:00 07:00 Intake Total 516.24 ml 101.85 ml 74.96 ml Output Total 2645 ml 485 ml 215 ml Balance -2128.76 ml -383.15 ml -140.04 ml Results Result Diagram: 09/22/16 0525 09/22/16 0525 Results 24 hrs Laboratory Tests Test 09/21/16 17:42 09/21/16 18:03 09/21/16 20:50 09/22/16 00:59 Bedside Glucose 100 109 106 Creatine Kinase < 20 L Creatine Kinase Index Creatinine Kinase MB (Mass) 0.74 Troponin I 0.054 Test 09/22/16 05:12 09/22/16 05:25 09/22/16 09:30 09/22/16 14:10 Bedside Glucose 105 107 109 White Blood Count 4.8 Red Blood Count 3.27 L Hemoglobin 8.3 L Hematocrit 27.8 L Mean Corpuscular Volume 85.0 Mean Corpuscular Hemoglobin 25.4 L Mean Corpuscular Hemoglobin Concent 29.9 L Red Cell Distribution Width 23.6 H Platelet Count 108 L Mean Platelet Volume 11.0 H Neutrophils % 72.7 Lymphocytes % 18.0 Monocytes % 7.7 Eosinophils % 1.0 Basophils % 0.0 Nucleated Red Blood Cells % 1.7 H Neutrophils # 3.5 Lymphocytes # 0.9 Monocytes # 0.4 Eosinophils # 0.1 Basophils # 0.0 Nucleated Red Blood Cells # 0.1 H Prothrombin Time 28.9 H Prothrombin Time Ratio 2.3 INR International Normalized Ratio 2.68 Sodium Level 137 Potassium Level 3.0 L Chloride Level 101 Carbon Dioxide Level 25 Anion Gap 14 Blood Urea Nitrogen 27 #H Creatinine 1.50 H Glucose Level 95 # Calcium Level 8.5 Random Vancomycin Level 12.3 Medications Medications Current Medications Apixaban (Eliquis) 2.5 mg BID PO Last administered on 09/22/16 09:32; Admin Dose 2.5 MG; Start 09/19/16 at 21:00 Ascorbic Acid (Vitamin C) 500 mg DAILY PO Last administered on 09/22/16 09:32 ; Admin Dose 500 MG; Start 09/20/16 at 09:00 Aspirin (Aspirin) 81 mg DAILY PO Last administered on 09/22/16 09:32; Admin Dose 81 MG; Start 09/20/16 at 09:00 Carvedilol (Coreg) 1.5625 mg BID PO Last administered on 09/21/16 20:47; Admin Dose 1.5625 MG; Start 09/19/16 at 21:00 Digoxin (Digoxin) 0.125 mg Q2D@13 PO ; Start 09/21/16 at 13:00; Status Future Hold Docusate Sodium (Colace) 200 mg QHS PO Last administered on 09/21/16 20:46; Admin Dose 200 MG; Start 09/19/16 at 21:00 Pantoprazole (Protonix Iv) 40 mg BID@06,18 IV Last administered on 09/22/16 05 :39; Admin Dose 40 MG; Start 09/20/16 at 06:00 Furosemide 20 mg 20 mg DAILY@06 IV Last administered on 09/22/16 05:40; Admin Dose 20 MG; Start 09/20/16 at 06:00 Levofloxacin/ Dextrose 100 ml @ 100 mls/hr Q48H IVPB Last administered on 09/21 20:47; Admin Dose 100 MLS/HR; Start 09/19/16 at 21:00 Norepinephrine 16 mg/Dextrose 500 ml @ 1.87 mls/hr TITRATE IV Last administered on 09/20/16 04:26; Admin Dose 9.37 MLS/HR; Start 09/20/16 at 02:00 Midazolam HCl (Versed) 50 ml @ 1 mls/hr TITRATE IV Last administered on 15:03; Admin Dose 6 MLS/HR; Start 09/20/16 at 02:00 Insulin Aspart (Novolog Insulin Pen) NOVOLOG *MILD* ALGORI... Q4 SC ; Start at 17:00 Miscellaneous Information 1 ea NOTE XX ; Start 09/21/16 at 14:00 Glucose (Glutose) 15 gm Q15M PRN PO DECREASED GLUCOSE; Start 09/21/16 at 14:00 Glucose (Glutose) 22.5 gm Q15M PRN PO DECREASED GLUCOSE; Start 09/21/16 at 14: 00 Dextrose (D50w Syringe) 25 ml Q15M PRN IV DECREASED GLUCOSE; Start 09/21/16 at 14:00 Dextrose (D50w Syringe) 50 ml Q15M PRN IV DECREASED GLUCOSE; Start 09/21/16 at 14:00 Glucagon (Glucagen) 1 mg Q15M PRN IM DECREASED GLUCOSE; Start 09/21/16 at 14:00 Glucose 15 gm 15 gm Q15M PRN BUCCAL DECREASED GLUCOSE; Start 09/21/16 at 14:00 Midazolam HCl 100 mg/Sodium Chloride 100 ml @ 1 mls/hr TITRATE IV ; Start at 15:30 Vancomycin HCl (Vancocin) 250 ml @ 125 mls/hr Q36H IVPB Last administered on 09:32; Admin Dose 125 MLS/HR; Start 09/22/16 at 08:00 Lidocaine 5 ml 5 ml ONCE SC ; Start 09/22/16 at 13:00; Stop 09/23/16 at 12:59 Potassium Chloride/Sodium Chloride (KCl/NS) 110 ml @ 55 mls/hr ONCE ONCE IVPB ; Start 09/22/16 at 16:30; Stop 09/22/16 at 18:29 NAEL COY NP Sep 22, 2016 15:17
[2016-09-22] MEDS ORDERED: CASPOFUNGIN 70 MG in SOD CHLORIDE 0.9% 250 ML IVPB ONE (15:30)
[2016-09-22] MEDS ORDERED: POTASSIUM CHLORIDE 20 MEQ in SOD CHLORIDE 0.9% 100 ML IVPB ONE (16:30)
--- NOTE | 2016-09-22 16:48 | RADRPT ---
PROCEDURE: US guidance for PICC line CLINICAL INDICATION: PICC line placement TECHNIQUE: Multiple real-time images were acquired of the patient's arm utilizing a high resolutio n transducer. This was performed by the PICC line nurse for venous access. COMPARISON: None FINDINGS: Ultrasound guidance for PICC line placement. IMPRESSION: Ultrasound guidance for PICC line placement. RPTAT: AA .Koffi Pratt MD, MD Date Time Electronically viewed and signed by .Koffi Pratt MD, on 09/22/2016 16:47 .S/
[2016-09-22] MEDS ORDERED: SOD CHLORIDE 0.9% 100 ML ONE (18:46)
[2016-09-22] MEDS: DOCUSATE SODIUM 100 MG CAP PO SCH (20:46)
--- NOTE | 2016-09-22 22:10 | RADRPT ---
Vent Rate: 60 bpm RR Interval: 0 msec LA Interval: 0 msec QRS Duration: 162 msec QT Interval: 632 msec QTC Interval: 632 msec P-R-T [place]: 0 - -20 - 105 degrees Electronic ventricular pacemaker Electronically Signed By: Tobias Villa [id number]
[2016-09-23] VITALS (106 sets, daily range): BP systolic 84–126; BP diastolic 35–80; PULSE 60–84; RESP 14–26
[2016-09-23] MEDS: INSULIN ASPART [NOVOLOG] 3 ML PEN SC SCH ×6 (01:00→22:10)
[2016-09-23 05:31] LABS: ADD SCAN DIFF NO
[2016-09-23 05:35] LABS: ABNORMAL IP MESSAGE 1; EOSINOPHILS # 0.1 10^3/ul (0.0-0.5); EOSINOPHILS % 1.1 % (0.0-7.0); HEMATOCRIT 25.6 % (42.0-52.0); HEMOGLOBIN 7.6 g/dl (14.0-18.0); LYMPHOCYTES # 1.1 10^3/ul (0.8-2.9); LYMPHOCYTES % 19.1 % (15.0-51.0); MEAN CORPUSCULAR HEMOGLOBIN 25.2 pg (29.0-33.0); MEAN CORPUSCULAR HGB CONC 29.7 g/dl (32.0-37.0); MEAN PLATELET VOLUME 11.4 fl (7.4-10.4); MONOCYTE # 0.4 10^3/ul (0.3-0.9); NEUTROPHIL # 4.1 10^3/ul (1.6-7.5); NEUTROPHILS % 72.4 % (39.0-77.0); PLATELET COUNT 97 10^3/UL (140-415); RED BLOOD COUNT 3.01 10^6/ul (4.70-6.10); RED CELL DISTRIBUTION WIDTH 23.4 % (11.5-14.5); WHITE BLOOD COUNT 5.6 10^3/ul (4.8-10.8)
--- NOTE | 2016-09-23 05:40 | RADRPT ---
PROCEDURE: XR Chest. CLINICAL INDICATION: PICC line placement TECHNIQUE: An AP view of the chest was obtained. COMPARISON: Chest x-ray dated 09/21/2016 FINDINGS: The endotracheal tube tip is approximately 3.0 cm above the travis. The tip of the enteric tube ex tends below the left diaphragm. There is a right upper extremity PICC line with tip near the cavoatr ial junction. There is a right chest Perma-Cath with tip in the lower SVC. A left subclavian single lead AICD is in place. There is prominence of the interstitial and central pulmonary vascular markings and small left pleu ral effusion. No focal airspace opacification or pneumothorax is seen. The cardiomediastinal silho uette is mildly enlarged . Calcifications are seen within the aortic arch. There are post cardiac s urgery changes with sternotomy wires. The osseous structures demonstrate senescent changes. IMPRESSION: 1. Findings suggestive of pulmonary vascular congestion/interstitial edema with small left pleural effusion. Lung aeration is mildly improved when compared to the prior examination. 2. Mild cardiomegaly and aortic atherosclerosis. 3. Tubes and lines, as described above. RPTAT: HH .Nica Sweet MD, MD Date Time Electronically viewed and signed by .Nica Sweet MD, on 09/23/2016 05:39 .G/
[2016-09-23] MEDS: FUROSEMIDE 20 MG INJ IV SCH (05:41)
[2016-09-23] MEDS: PANTOPRAZOLE 40 MG INJ IV SCH ×2 (05:41→18:02)
--- NOTE | 2016-09-23 05:41 | RADRPT ---
PROCEDURE: XR Chest. CLINICAL INDICATION: PICC line placement TECHNIQUE: An AP view of the chest was obtained. COMPARISON: Chest x-ray performed earlier on the same date FINDINGS: The endotracheal tube tip is approximately 4.3 cm above the travis. The tip of the enteric tube ex tends below the left diaphragm. There is a right upper extremity PICC line with tip near the cavoatr ial junction. There is a right chest Perma-Cath with tip in the lower SVC. A left subclavian single lead AICD is in place. There is prominence of the interstitial and central pulmonary vascular markings and small left pleu ral effusion. No focal airspace opacification or pneumothorax is seen. The cardiomediastinal silho uette is mildly enlarged . Calcifications are seen within the aortic arch. There are post cardiac s urgery changes with sternotomy wires. The osseous structures demonstrate senescent changes. IMPRESSION: 1. Findings suggestive of pulmonary vascular congestion/interstitial edema with small left pleural effusion. No significant interval change. 2. Mild cardiomegaly and aortic atherosclerosis. 3. Tubes and lines, as described above. RPTAT: HH .Nica Sweet MD, Date Time Electronically viewed and signed by .Nica Sweet MD, on 09/23/2016 05:41 .G/
[2016-09-23 05:58] LABS: CALCIUM 8.4 mg/dl (8.4-10.2); CREATININE 1.64 mg/dl (0.61-1.24)
[2016-09-23 06:11] LABS: POTASSIUM 2.9 mmol/L (3.5-5.1)
[2016-09-23] MEDS ORDERED: POTASSIUM CHLORIDE 20 MEQ in SOD CHLORIDE 0.9% 100 ML IVPB ONE (06:30)
[2016-09-23] MEDS ORDERED: POTASSIUM CHLORIDE 20 MEQ in SOD CHLORIDE 0.9% 100 ML IVPB SCH (07:00)
[2016-09-23] MEDS: POTASSIUM CHLORIDE 50 ML IVPB SCH ×3 (07:48→13:43)
[2016-09-23] MEDS: ASPIRIN 81 MG TAB PO SCH (09:28)
[2016-09-23] MEDS: APIXABAN 5 MG TABLET PO SCH ×2 (09:28→21:25)
[2016-09-23] MEDS: ASCORBIC ACID 500 MG TAB PO SCH (09:28)
--- NOTE | 2016-09-23 11:35 | CONS ---
Date/Time of Note Date/Time of Note DATE: 09/23/16 TIME: 11:32 Assessment/Plan Assessment/Plan Additional Assessment/Plan Ventilator settings; AC of 16, tidal volume 500, PEEP of 5, 30% FiO2. Levophed at 2.2 mics per minute. Assessment recommendations; 1. Patient admitted for flash pulmonary edema this is his third intubation. 2. End-stage renal disease, on hemodialysis. 3. Underlying cardiomyopathy. 4. History of cardiac arrhythmia. 5. Anemia. 6. Sepsis. 7. Recurrent respiratory failure due to flash pulmonary edema. Continue current treatment. Patient will need to have a tracheostomy and a G- tube placed. Family is agreeable to that. Prognosis remains guarded on account of multiple comorbidities. Wean off Levophed as tolerated. Continue current broad-spectrum antibiotic coverage. 36 minutes of critical care time was spent evaluated the patient. Consultation Date/Type/Reason Admit Date/Time Sep 19, 2016 at 14:51 Type of Consultation: Pulmonary/critical care 24 HR Interval Summary Free Text/Dictation Patient condition remains critical. Still requiring full ventilator support. Patient's mental status however is markedly improved. To the point where the patient now is completely awake alert and follows commands. General exam; elderly male, orally intubated, currently in no distress. Exam/Review of Systems Vital Signs Vitals Vital Signs Date Time Temp Pulse Resp B/P Pulse Ox O2 Delivery O2 Flow Rate FiO2 09/23/16 11:22 60 16 100 30 09/23/16 10:00 112/42 Mechanical Ventilator 09/23/16 07:51 97.5 Intake and Output 09/22/16 09/22/16 09/23/16 15:00 23:00 07:00 Intake Total 324.96 ml 76.86 ml 39.34 ml Output Total 360 ml 260 ml 230 ml Balance -35.04 ml -183.14 ml -190.66 ml Exam HEENT exam is; supple neck, positive JVD. Orally intubated. Patient only has 2 broken remaining tooth in the lower jaw. Has bilateral cataracts. No neck masses. No thyromegaly. No neck bruits. No lymphadenopathy. Chest examination; diminished but clear breath sounds. S1-S2 audible, no murmurs. There is a well-healed sternal scar. Abdomen examination; soft, nondistended. No organomegaly. Bowel sounds audible. Extremity exam is; no peripheral edema. HOTEL CUSTODIAN examination; patient is awake and follows simple commands, moves all 4 extremities. Results Result Diagram: 09/23/16 0300 09/23/16 0300 Results 24 hrs Laboratory Tests Test 09/22/16 14:10 09/22/16 16:57 09/22/16 20:45 09/23/16 01:15 Bedside Glucose 109 120 102 94 Test 09/23/16 03:00 09/23/16 05:16 09/23/16 09:37 White Blood Count 5.6 Red Blood Count 3.01 L Hemoglobin 7.6 L Hematocrit 25.6 L Mean Corpuscular Volume 85.0 Mean Corpuscular Hemoglobin 25.2 L Mean Corpuscular Hemoglobin Concent 29.7 L Red Cell Distribution Width 23.4 H Platelet Count 97 L Mean Platelet Volume 11.4 H Neutrophils % 72.4 Lymphocytes % 19.1 Monocytes % 7.0 Eosinophils % 1.1 Basophils % 0.0 Nucleated Red Blood Cells % 0.0 Neutrophils # 4.1 Lymphocytes # 1.1 Monocytes # 0.4 Eosinophils # 0.1 Basophils # 0.0 Nucleated Red Blood Cells # 0.0 Sodium Level 139 Potassium Level 2.9 *L Chloride Level 101 Carbon Dioxide Level 24 Anion Gap 17 H Blood Urea Nitrogen 31 H Creatinine 1.64 H Glucose Level 84 Calcium Level 8.4 Bedside Glucose 90 78 Medications Medications Current Medications Apixaban (Eliquis) 2.5 mg BID PO Last administered on 09/23/16 09:28; Admin Dose 2.5 MG; Start 09/19/16 at 21:00 Ascorbic Acid (Vitamin C) 500 mg DAILY PO Last administered on 09/23/16 09:28 ; Admin Dose 500 MG; Start 09/20/16 at 09:00 Aspirin (Aspirin) 81 mg DAILY PO Last administered on 09/23/16 09:28; Admin Dose 81 MG; Start 09/20/16 at 09:00 Carvedilol (Coreg) 1.5625 mg BID PO Last administered on 09/22/16 20:47; Admin Dose 1.5625 MG; Start 09/19/16 at 21:00 Digoxin (Digoxin) 0.125 mg Q2D@13 PO ; Start 09/21/16 at 13:00; Status Future Hold Docusate Sodium (Colace) 200 mg QHS PO Last administered on 09/22/16 20:46; Admin Dose 200 MG; Start 09/19/16 at 21:00 Pantoprazole (Protonix Iv) 40 mg BID@06,18 IV Last administered on 09/23/16 05 :41; Admin Dose 40 MG; Start 09/20/16 at 06:00 Furosemide 20 mg 20 mg DAILY@06 IV Last administered on 09/23/16 05:41; Admin Dose 20 MG; Start 09/20/16 at 06:00 Levofloxacin/ Dextrose 100 ml @ 100 mls/hr Q48H IVPB Last administered on 09/21 20:47; Admin Dose 100 MLS/HR; Start 09/19/16 at 21:00 Norepinephrine 16 mg/Dextrose 500 ml @ 1.87 mls/hr TITRATE IV Last administered on 09/22/16 18:03; Admin Dose 7.5 MLS/HR; Start 09/20/16 at 02:00 Midazolam HCl (Versed) 50 ml @ 1 mls/hr TITRATE IV Last administered on 15:03; Admin Dose 6 MLS/HR; Start 09/20/16 at 02:00 Insulin Aspart (Novolog Insulin Pen) NOVOLOG *MILD* ALGORI... Q4 SC ; Start at 17:00 Miscellaneous Information 1 ea NOTE XX ; Start 09/21/16 at 14:00 Glucose (Glutose) 15 gm Q15M PRN PO DECREASED GLUCOSE; Start 09/21/16 at 14:00 Glucose (Glutose) 22.5 gm Q15M PRN PO DECREASED GLUCOSE; Start 09/21/16 at 14: 00 Dextrose (D50w Syringe) 25 ml Q15M PRN IV DECREASED GLUCOSE; Start 09/21/16 at 14:00 Dextrose (D50w Syringe) 50 ml Q15M PRN IV DECREASED GLUCOSE; Start 09/21/16 at 14:00 Glucagon (Glucagen) 1 mg Q15M PRN IM DECREASED GLUCOSE; Start 09/21/16 at 14:00 Glucose 15 gm 15 gm Q15M PRN BUCCAL DECREASED GLUCOSE; Start 09/21/16 at 14:00 Midazolam HCl 100 mg/Sodium Chloride 100 ml @ 1 mls/hr TITRATE IV ; Start at 15:30 Vancomycin HCl (Vancocin) 250 ml @ 125 mls/hr Q36H IVPB Last administered on 09:32; Admin Dose 125 MLS/HR; Start 09/22/16 at 08:00 Lidocaine 5 ml 5 ml ONCE SC Last administered on 09/22/16 15:55; Admin Dose 5 ML; Start 09/22/16 at 13:00; Stop 09/23/16 at 12:59 Caspofungin/ Sodium Chloride (Cancidas/NS) 250 ml @ 250 mls/hr Q24H IVPB ; Start 09/23/16 at 15:30; Stop 09/26/16 at 23:00 IV Flush 10 ml 10 ml PRN PRN IV IV PROTOCOL; Start 09/22/16 at 18:30 Potassium Chloride (KCl 20 MEQ/50 ML SW) 50 ml @ 25 mls/hr Q2H IVPB Last administered on 09/23/16 09:46; Admin Dose 25 MLS/HR; Start 09/23/16 at 07:00; Stop 09/23/16 at 12:59 ADAMARIS RAMIREZ Sep 23, 2016 11:35
--- NOTE | 2016-09-23 13:13 | PN ---
Date/Time of Note Date/Time of Note DATE: 09/23/16 TIME: 13:02 Assessment/Plan VTE Prophylaxis VTE Prophylaxis Intervention: other (Eliquis) Lines/Catheters IV Catheter Type (from Nrs): Peripheral IV Urinary Cath still in place: Yes Reason Cath still needed: urinary retention Assessment/Plan Chief Complaint/Hosp Course Assessment/Plan: 81M with: 1. 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 Endstage CHF with exacerbation - CV team consulted, AICD in place - Lasix, low dose Coreg, f/u CV rec's 3. Chronic kidney disease on hemodialysis 3 times a week limited by hypotension - f/u renal rec's, HD as tolerated per Nephro 4. Shock ?cardiogenic r/o septic on pressor support - wean as tolerated 5. Diabetes mellitus type 2 - ISS 6. Paroxysmal atrial fibrillation, rate controlled - monitor, BB, eliquis 7. 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 8. Chronic liver cirrhosis with coagulopathy and mild hyperbilirubinemia and transaminitis likely associated with chronic CHF - monitor 9. Severe debility. 10. 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 11. LE cellulitis and ulcerations ? PVD Prognosis : very poor and guarded Hospitalist spoke extensively with his son and recommended hopsice care a few days ago, remains full code at this time. Family conference to possibly be scheduled in 1-2 days as well. Critical care time = 45 min Problems: Subjective 24 Hr Interval Summary Free Text/Dictation Pt still intubated, received PICC. Awaiting another HD today. Exam/Review of Systems Vital Signs Vitals Vital Signs Date Time Temp Pulse Resp B/P Pulse Ox O2 Delivery O2 Flow Rate FiO2 09/23/16 11:22 60 16 100 30 09/23/16 10:00 112/42 Mechanical Ventilator 09/23/16 07:51 97.5 Intake and Output 09/22/16 09/22/16 09/23/16 15:00 23:00 07:00 Intake Total 324.96 ml 76.86 ml 39.34 ml Output Total 360 ml 260 ml 230 ml Balance -35.04 ml -183.14 ml -190.66 ml Exam Constitutional: frail, other (intubated and sedated, comfortable on vent) Head: normocephalic Eyes: PERRL ENMT: intubated Respiratory: diminished breath sounds, No crackles/rales Cardiovascular: irregular rhythm, murmurs/extra sounds Gastrointestinal: bowel sounds, distended, soft Musculoskeletal: No nl extremities to inspection Neurological: No nl mental status Skin: rash or lesions (multiple superficial ulcers on both feet) Results Result Diagram: 09/23/16 0300 09/23/16 0300 Results 24 hrs Laboratory Tests Test 09/22/16 14:10 09/22/16 16:57 09/22/16 20:45 09/23/16 01:15 Bedside Glucose 109 120 102 94 Test 09/23/16 03:00 09/23/16 05:16 09/23/16 09:37 White Blood Count 5.6 Red Blood Count 3.01 L Hemoglobin 7.6 L Hematocrit 25.6 L Mean Corpuscular Volume 85.0 Mean Corpuscular Hemoglobin 25.2 L Mean Corpuscular Hemoglobin Concent 29.7 L Red Cell Distribution Width 23.4 H Platelet Count 97 L Mean Platelet Volume 11.4 H Neutrophils % 72.4 Lymphocytes % 19.1 Monocytes % 7.0 Eosinophils % 1.1 Basophils % 0.0 Nucleated Red Blood Cells % 0.0 Neutrophils # 4.1 Lymphocytes # 1.1 Monocytes # 0.4 Eosinophils # 0.1 Basophils # 0.0 Nucleated Red Blood Cells # 0.0 Sodium Level 139 Potassium Level 2.9 *L Chloride Level 101 Carbon Dioxide Level 24 Anion Gap 17 H Blood Urea Nitrogen 31 H Creatinine 1.64 H Glucose Level 84 Calcium Level 8.4 Bedside Glucose 90 78 Medications Medications Current Medications Apixaban (Eliquis) 2.5 mg BID PO Last administered on 09/23/16 09:28; Admin Dose 2.5 MG; Start 09/19/16 at 21:00 Ascorbic Acid (Vitamin C) 500 mg DAILY PO Last administered on 09/23/16 09:28 ; Admin Dose 500 MG; Start 09/20/16 at 09:00 Aspirin (Aspirin) 81 mg DAILY PO Last administered on 09/23/16 09:28; Admin Dose 81 MG; Start 09/20/16 at 09:00 Carvedilol (Coreg) 1.5625 mg BID PO Last administered on 09/22/16 20:47; Admin Dose 1.5625 MG; Start 09/19/16 at 21:00 Digoxin (Digoxin) 0.125 mg Q2D@13 PO ; Start 09/21/16 at 13:00; Status Future Hold Docusate Sodium (Colace) 200 mg QHS PO Last administered on 09/22/16 20:46; Admin Dose 200 MG; Start 09/19/16 at 21:00 Pantoprazole (Protonix Iv) 40 mg BID@06,18 IV Last administered on 09/23/16 05 :41; Admin Dose 40 MG; Start 09/20/16 at 06:00 Furosemide 20 mg 20 mg DAILY@06 IV Last administered on 09/23/16 05:41; Admin Dose 20 MG; Start 09/20/16 at 06:00 Levofloxacin/ Dextrose 100 ml @ 100 mls/hr Q48H IVPB Last administered on 09/21 20:47; Admin Dose 100 MLS/HR; Start 09/19/16 at 21:00 Norepinephrine 16 mg/Dextrose 500 ml @ 1.87 mls/hr TITRATE IV Last administered on 09/22/16 18:03; Admin Dose 7.5 MLS/HR; Start 09/20/16 at 02:00 Midazolam HCl (Versed) 50 ml @ 1 mls/hr TITRATE IV Last administered on 15:03; Admin Dose 6 MLS/HR; Start 09/20/16 at 02:00 Insulin Aspart (Novolog Insulin Pen) NOVOLOG *MILD* ALGORI... Q4 SC ; Start at 17:00 Miscellaneous Information 1 ea NOTE XX ; Start 09/21/16 at 14:00 Glucose (Glutose) 15 gm Q15M PRN PO DECREASED GLUCOSE; Start 09/21/16 at 14:00 Glucose (Glutose) 22.5 gm Q15M PRN PO DECREASED GLUCOSE; Start 09/21/16 at 14: 00 Dextrose (D50w Syringe) 25 ml Q15M PRN IV DECREASED GLUCOSE; Start 09/21/16 at 14:00 Dextrose (D50w Syringe) 50 ml Q15M PRN IV DECREASED GLUCOSE; Start 09/21/16 at 14:00 Glucagon (Glucagen) 1 mg Q15M PRN IM DECREASED GLUCOSE; Start 09/21/16 at 14:00 Glucose 15 gm 15 gm Q15M PRN BUCCAL DECREASED GLUCOSE; Start 09/21/16 at 14:00 Midazolam HCl 100 mg/Sodium Chloride 100 ml @ 1 mls/hr TITRATE IV ; Start at 15:30 Vancomycin HCl 250 ml @ 125 mls/hr Q36H IVPB Last administered on 09/22/16t 09 :32; Admin Dose 125 MLS/HR; Start 09/22/16 at 08:00 Caspofungin/ Sodium Chloride (Cancidas/NS) 250 ml @ 250 mls/hr Q24H IVPB ; Start 09/23/16 at 15:30; Stop 09/26/16 at 23:00 IV Flush (NS 10 ml) 10 ml PRN PRN IV IV PROTOCOL; Start 09/22/16 at 18:30 THERESA RIVERA Sep 23, 2016 13:12
--- NOTE | 2016-09-23 13:25 | CONS ---
Date/Time of Note Date/Time of Note DATE: 09/23/16 TIME: 13:17 Assessment/Plan Assessment/Plan Chief Complaint/Hosp Course IMPRESSION: 1. Hypotension/shock state, question cardiogenic versus septic unlikely as patient had a low EF with negative cardiac enzymes, nonacute event. 2. Congestive heart failure, systolic, acute on chronic. 3. Coronary artery disease, status post coronary artery bypass graft surgery. 4. Chronic kidney disease on hemodialysis. 5. Coagulopathy secondary to Eliquis. 6. History of paroxysmal atrial fibrillation. 7. Likely sepsis. 8. Elevated digoxin level. 9. Anemia, worsening slight Recc: -Tele -Wean levo as tolerated -Contnue asa -HD for volume removal -Continue abx's and f/u cx data Problems: Consultation Date/Type/Reason Admit Date/Time Sep 19, 2016 at 14:51 Initial Consult Date 09/23/2016 Type of Consultation: Cardiology Reason for Consultation cardiomyopathy/CHF Referring Provider: THERESA RIVERA Exam/Review of Systems Vital Signs Vitals Vital Signs Date Time Temp Pulse Resp B/P Pulse Ox O2 Delivery O2 Flow Rate FiO2 09/23/16 13:10 64 16 100 30 09/23/16 10:00 112/42 Mechanical Ventilator 09/23/16 07:51 97.5 Intake and Output 09/22/16 09/22/16 09/23/16 15:00 23:00 07:00 Intake Total 324.96 ml 76.86 ml 39.34 ml Output Total 360 ml 260 ml 230 ml Balance -35.04 ml -183.14 ml -190.66 ml Exam Review of Systems: CONSTITUTIONAL: No fevers, chills. PULMONARY: No sob CARDIOVASCULAR: No chest pain/palpitations GASTROINTESTINAL: No nausea/vomiting. GENITOURINARY: No hematuria/dysuria. MUSCULOSKELETAL: No myagias/arthalgias. PSYCHIATRIC: The patient denies depression. NEUROLOGIC: No weakness Constitutional: alert, oriented Psych: no complaints Head: normocephalic ENMT: intubated, mucosa pink and moist Neck: jvd (9 cm water), supple Respiratory: other (upper airway rhonchi) Cardiovascular: regular rate and rhythm Gastrointestinal: non-tender, soft Musculoskeletal: muscle tone (normal) Extremities: edema (none) Neurological: other (sedated) Results Result Diagram: 09/23/16 0300 09/23/16 0300 Results 24 hrs Laboratory Tests Test 09/22/16 14:10 09/22/16 16:57 09/22/16 20:45 09/23/16 01:15 Bedside Glucose 109 120 102 94 Test 09/23/16 03:00 09/23/16 05:16 09/23/16 09:37 White Blood Count 5.6 Red Blood Count 3.01 L Hemoglobin 7.6 L Hematocrit 25.6 L Mean Corpuscular Volume 85.0 Mean Corpuscular Hemoglobin 25.2 L Mean Corpuscular Hemoglobin Concent 29.7 L Red Cell Distribution Width 23.4 H Platelet Count 97 L Mean Platelet Volume 11.4 H Neutrophils % 72.4 Lymphocytes % 19.1 Monocytes % 7.0 Eosinophils % 1.1 Basophils % 0.0 Nucleated Red Blood Cells % 0.0 Neutrophils # 4.1 Lymphocytes # 1.1 Monocytes # 0.4 Eosinophils # 0.1 Basophils # 0.0 Nucleated Red Blood Cells # 0.0 Sodium Level 139 Potassium Level 2.9 *L Chloride Level 101 Carbon Dioxide Level 24 Anion Gap 17 H Blood Urea Nitrogen 31 H Creatinine 1.64 H Glucose Level 84 Calcium Level 8.4 Bedside Glucose 90 78 Medications Medications Current Medications Apixaban (Eliquis) 2.5 mg BID PO Last administered on 09/23/16 09:28; Admin Dose 2.5 MG; Start 09/19/16 at 21:00 Ascorbic Acid (Vitamin C) 500 mg DAILY PO Last administered on 09/23/16 09:28 ; Admin Dose 500 MG; Start 09/20/16 at 09:00 Aspirin (Aspirin) 81 mg DAILY PO Last administered on 09/23/16 09:28; Admin Dose 81 MG; Start 09/20/16 at 09:00 Carvedilol (Coreg) 1.5625 mg BID PO Last administered on 09/22/16 20:47; Admin Dose 1.5625 MG; Start 09/19/16 at 21:00 Digoxin (Digoxin) 0.125 mg Q2D@13 PO ; Start 09/21/16 at 13:00; Status Future Hold Docusate Sodium (Colace) 200 mg QHS PO Last administered on 09/22/16 20:46; Admin Dose 200 MG; Start 09/19/16 at 21:00 Pantoprazole (Protonix Iv) 40 mg BID@06,18 IV Last administered on 09/23/16 05 :41; Admin Dose 40 MG; Start 09/20/16 at 06:00 Furosemide 20 mg 20 mg DAILY@06 IV Last administered on 09/23/16 05:41; Admin Dose 20 MG; Start 09/20/16 at 06:00 Levofloxacin/ Dextrose 100 ml @ 100 mls/hr Q48H IVPB Last administered on 09/21 20:47; Admin Dose 100 MLS/HR; Start 09/19/16 at 21:00 Norepinephrine 16 mg/Dextrose 500 ml @ 1.87 mls/hr TITRATE IV Last administered on 09/22/16 18:03; Admin Dose 7.5 MLS/HR; Start 09/20/16 at 02:00 Midazolam HCl (Versed) 50 ml @ 1 mls/hr TITRATE IV Last administered on 15:03; Admin Dose 6 MLS/HR; Start 09/20/16 at 02:00 Insulin Aspart (Novolog Insulin Pen) NOVOLOG *MILD* ALGORI... Q4 SC ; Start at 17:00 Miscellaneous Information 1 ea NOTE XX ; Start 09/21/16 at 14:00 Glucose (Glutose) 15 gm Q15M PRN PO DECREASED GLUCOSE; Start 09/21/16 at 14:00 Glucose (Glutose) 22.5 gm Q15M PRN PO DECREASED GLUCOSE; Start 09/21/16 at 14: 00 Dextrose (D50w Syringe) 25 ml Q15M PRN IV DECREASED GLUCOSE; Start 09/21/16 at 14:00 Dextrose (D50w Syringe) 50 ml Q15M PRN IV DECREASED GLUCOSE; Start 09/21/16 at 14:00 Glucagon (Glucagen) 1 mg Q15M PRN IM DECREASED GLUCOSE; Start 09/21/16 at 14:00 Glucose 15 gm 15 gm Q15M PRN BUCCAL DECREASED GLUCOSE; Start 09/21/16 at 14:00 Midazolam HCl 100 mg/Sodium Chloride 100 ml @ 1 mls/hr TITRATE IV ; Start at 15:30 Vancomycin HCl 250 ml @ 125 mls/hr Q36H IVPB Last administered on 09/22/16 09 :32; Admin Dose 125 MLS/HR; Start 09/22/16 at 08:00 Caspofungin/ Sodium Chloride (Cancidas/NS) 250 ml @ 250 mls/hr Q24H IVPB ; Start 09/23/16 at 15:30; Stop 09/26/16 at 23:00 IV Flush (NS 10 ml) 10 ml PRN PRN IV IV PROTOCOL; Start 09/22/16 at 18:30 POLI SAN Sep 23, 2016 13:25
[2016-09-23] MEDS ORDERED: ALBUMIN HUMAN 25% 100 ML IV PRN (14:00)
[2016-09-23] MEDS ORDERED: HEPARIN 1000 UNITS/ML 10 ML INJ CATHETER ONE (14:00)
[2016-09-23] MEDS: CASPOFUNGIN 50 MG in SOD CHLORIDE 0.9% 250 ML IVPB SCH (16:41)
--- NOTE | 2016-09-23 16:47 | CONS ---
Date/Time of Note Date/Time of Note DATE: 09/23/16 TIME: 16:43 Assessment/Plan Assessment/Plan Chief Complaint/Hosp Course ID PROGRESS NOTE TOTAL ABX DAY # 5 => Vanco IV + Levaquin + Cancidas #2 s/p Merrem 09/19 x1 NEW MICRO RESULTS: URINE CULTURE Final Organism 1 FUNMILAYO ALBICANS COLONY COUNT 50,000 - 60,000 CFU/ml 24H INTERVAL SUMMARY * No fevers, (+)Jaundice -- warm Nelda hugger blanket Tx On pressors, cold shock w/hypothermic readings during admission, hypoglycemic, no fevers, * WBC normal w/Neuts normalized today after increased Neuts % yesterday * Sedated on Versed * Critically ill with multi-organ failure -- remains full code w/spouse in room -- patient is palliative/hospice care appropriate; nevertheless he remains on aggressive medical plan of care PHYSICAL EXAMINATION: GENERAL: 81 yo M orally intubated on the Vent HEENT: (+)Jaundice, (+)Icteric, NGT-> Secure, ETT-> secure to Vent NECK: IJ HD catheter CHEST: Rise symmetrical, rhonchi HEART: RRR (+)RA ABDOMEN: Distended, firmm hepatomegaly EXTREMITIES: Warm Decubs bilateral feet SKIN: ID ASSESSMENT: 81 yo M w/multi-organ system failure admitted from HD unit with: 1. Shock -> cardiogenic + septic + liver etiologies suspected 2. Severe sepsis with lactic acidosis secondary to HCAP and UTI * History of recurrent/recent BLL HCAP * Yeast UTI URINE CULTURE Final Organism 1 FUNMILAYO ALBICANS COLONY COUNT 50,000 - 60,000 CFU/ml 3. Acute hypoxic respiratory failure -> intubated in the emergency room. 4. Acute CHF exacerbation w/progressive end-stage congestive heart failure. * Coronary artery disease with severe ischemic cardiomyopathy -> Hx of CABG, ICD placement. 5. Paroxysmal atrial fibrillation. 6. Chronic renal disease on hemodialysis, end-stage renal disease. 7. Adult-onset diabetes mellitus. 8. BLEXT Diabetic, ischemic, new ulcers and cellulitis both feet. 9. 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 10. Chronic cirrhosis of the liver with coagulopathy, mild hyperbilirubinemia and transaminitis. 11. 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 12. Severe debility. (-)MRSA Nares INVASIVES: * PIV, ETT, NGT, R-IJ HD catheter, ICD CURRENT ABX: TOTAL ABX DAY # 5 => Vanco IV + Levaquin + Cancidas #2 s/p Merrem 09/19 x1 ID RECOMMENDATIONS: => 81 yo M w/multi-organ system failure end-stage renal, end-stage cardiomyopathy, liver failure w/hypoglycemia, acute respiratory failure-> doubt ABX with reverse the poor prognosis. * Continue current ABX + add antifungal for yeast UTI = Cancidas (Diflucan deferred due to drug-drug interactions) * FC changed due to yeast * Patient is palliative/hospice care appropriate -> Promote ethic of futility vs autonomy . . Problems: Consultation Date/Type/Reason Admit Date/Time Sep 19, 2016 at 14:51 Type of Consultation: ID Referring Provider: THERESA RIVERA Exam/Review of Systems Vital Signs Vitals Vital Signs Date Time Temp Pulse Resp B/P Pulse Ox O2 Delivery O2 Flow Rate FiO2 09/23/16 16:16 60 09/23/16 15:45 15 94/40 100 Mechanical Ventilator 09/23/16 13:10 30 09/23/16 11:00 97.0 Intake and Output 09/22/16 09/22/16 09/23/16 15:00 23:00 07:00 Intake Total 324.96 ml 76.86 ml 44.96 ml Output Total 360 ml 260 ml 230 ml Balance -35.04 ml -183.14 ml -185.04 ml Results Result Diagram: 09/23/16 0300 09/23/16 0300 Results 24 hrs Laboratory Tests Test 09/22/16 16:57 09/22/16 20:45 09/23/16 01:15 09/23/16 03:00 Bedside Glucose 120 102 94 White Blood Count 5.6 Red Blood Count 3.01 L Hemoglobin 7.6 L Hematocrit 25.6 L Mean Corpuscular Volume 85.0 Mean Corpuscular Hemoglobin 25.2 L Mean Corpuscular Hemoglobin Concent 29.7 L Red Cell Distribution Width 23.4 H Platelet Count 97 L Mean Platelet Volume 11.4 H Neutrophils % 72.4 Lymphocytes % 19.1 Monocytes % 7.0 Eosinophils % 1.1 Basophils % 0.0 Nucleated Red Blood Cells % 0.0 Neutrophils # 4.1 Lymphocytes # 1.1 Monocytes # 0.4 Eosinophils # 0.1 Basophils # 0.0 Nucleated Red Blood Cells # 0.0 Sodium Level 139 Potassium Level 2.9 *L Chloride Level 101 Carbon Dioxide Level 24 Anion Gap 17 H Blood Urea Nitrogen 31 H Creatinine 1.64 H Glucose Level 84 Calcium Level 8.4 Test 09/23/16 05:16 09/23/16 09:37 09/23/16 13:34 Bedside Glucose 90 78 105 Medications Medications Current Medications Apixaban (Eliquis) 2.5 mg BID PO Last administered on 09/23/16 09:28; Admin Dose 2.5 MG; Start 09/19/16 at 21:00 Ascorbic Acid (Vitamin C) 500 mg DAILY PO Last administered on 09/23/16 09:28 ; Admin Dose 500 MG; Start 09/20/16 at 09:00 Aspirin (Aspirin) 81 mg DAILY PO Last administered on 09/23/16 09:28; Admin Dose 81 MG; Start 09/20/16 at 09:00 Carvedilol (Coreg) 1.5625 mg BID PO Last administered on 09/22/16 20:47; Admin Dose 1.5625 MG; Start 09/19/16 at 21:00 Digoxin (Digoxin) 0.125 mg Q2D@13 PO ; Start 09/21/16 at 13:00; Status Future Hold Docusate Sodium (Colace) 200 mg QHS PO Last administered on 09/22/16 20:46; Admin Dose 200 MG; Start 09/19/16 at 21:00 Pantoprazole (Protonix Iv) 40 mg BID@06,18 IV Last administered on 09/23/16 05 :41; Admin Dose 40 MG; Start 09/20/16 at 06:00 Furosemide 20 mg 20 mg DAILY@06 IV Last administered on 09/23/16 05:41; Admin Dose 20 MG; Start 09/20/16 at 06:00 Levofloxacin/ Dextrose 100 ml @ 100 mls/hr Q48H IVPB Last administered on 09/21 20:47; Admin Dose 100 MLS/HR; Start 09/19/16 at 21:00 Norepinephrine 16 mg/Dextrose 500 ml @ 1.87 mls/hr TITRATE IV Last administered on 09/22/16 18:03; Admin Dose 7.5 MLS/HR; Start 09/20/16 at 02:00 Midazolam HCl (Versed) 50 ml @ 1 mls/hr TITRATE IV Last administered on 15:03; Admin Dose 6 MLS/HR; Start 09/20/16 at 02:00 Insulin Aspart (Novolog Insulin Pen) NOVOLOG *MILD* ALGORI... Q4 SC ; Start at 17:00 Miscellaneous Information 1 ea NOTE XX ; Start 09/21/16 at 14:00 Glucose (Glutose) 15 gm Q15M PRN PO DECREASED GLUCOSE; Start 09/21/16 at 14:00 Glucose (Glutose) 22.5 gm Q15M PRN PO DECREASED GLUCOSE; Start 09/21/16 at 14: 00 Dextrose (D50w Syringe) 25 ml Q15M PRN IV DECREASED GLUCOSE; Start 09/21/16 at 14:00 Dextrose (D50w Syringe) 50 ml Q15M PRN IV DECREASED GLUCOSE; Start 09/21/16 at 14:00 Glucagon (Glucagen) 1 mg Q15M PRN IM DECREASED GLUCOSE; Start 09/21/16 at 14:00 Glucose 15 gm 15 gm Q15M PRN BUCCAL DECREASED GLUCOSE; Start 09/21/16 at 14:00 Vancomycin HCl 250 ml @ 125 mls/hr Q36H IVPB Last administered on 09/22/16 09 :32; Admin Dose 125 MLS/HR; Start 09/22/16 at 08:00 Caspofungin/ Sodium Chloride (Cancidas/NS) 250 ml @ 250 mls/hr Q24H IVPB Last administered on 09/23/16 16:41; Admin Dose 250 MLS/HR; Start 09/23/16 at 15:30 ; Stop 09/26/16 at 23:00 IV Flush (NS 10 ml) 10 ml PRN PRN IV IV PROTOCOL; Start 09/22/16 at 18:30 NAEL COY NP Sep 23, 2016 16:47
[2016-09-23] MEDS: VANCOMYCIN 1 GM in NS 250 ML IVPB SCH (20:33)
[2016-09-23] MEDS: DOCUSATE SODIUM 100 MG CAP PO SCH (21:26)
--- NOTE | 2016-09-23 23:12 | CONS ---
Date/Time of Note Date/Time of Note DATE: 09/23/16 TIME: 23:11 Assessment/Plan Assessment/Plan Chief Complaint/Hosp Course IMPRESSION: 1. Acute hypoxic respiratory failure.on vent 2. Patient has a chronic systolic heart failure. 3. Chronic kidney disease requiring hemodialysis. 4. History of acute tubular necrosis. 5. Cardiomyopathy. 6. Anemia. 7. Neutropenia. 8. The patient has hypoalbuminemia. 9. Patient has ventilator dependent respiratory failure. 10. History of sepsis. 11. Septic shock. plan continue hd weaning d/w family Problems: Consultation Date/Type/Reason Admit Date/Time Sep 19, 2016 at 14:51 Type of Consultation: renal Referring Provider: THERESA RIVERA 24 HR Interval Summary Constitutional: no complaints Exam/Review of Systems Vital Signs Vitals Vital Signs Date Time Temp Pulse Resp B/P Pulse Ox O2 Delivery O2 Flow Rate FiO2 09/23/16 20:45 62 16 95/62 100 09/23/16 20:00 30 09/23/16 20:00 98.2 09/23/16 19:00 Mechanical Ventilator Intake and Output 09/22/16 09/22/16 09/23/16 15:00 23:00 07:00 Intake Total 324.96 ml 76.86 ml 44.96 ml Output Total 360 ml 260 ml 230 ml Balance -35.04 ml -183.14 ml -185.04 ml Exam Respiratory: diminished breath sounds Cardiovascular: regular rate and rhythm Gastrointestinal: soft Extremities: edema (+) Results Result Diagram: 09/23/16 0300 09/23/16 0300 Results 24 hrs Laboratory Tests Test 09/23/16 01:15 09/23/16 03:00 09/23/16 05:16 09/23/16 09:37 Bedside Glucose 94 90 78 White Blood Count 5.6 Red Blood Count 3.01 L Hemoglobin 7.6 L Hematocrit 25.6 L Mean Corpuscular Volume 85.0 Mean Corpuscular Hemoglobin 25.2 L Mean Corpuscular Hemoglobin Concent 29.7 L Red Cell Distribution Width 23.4 H Platelet Count 97 L Mean Platelet Volume 11.4 H Neutrophils % 72.4 Lymphocytes % 19.1 Monocytes % 7.0 Eosinophils % 1.1 Basophils % 0.0 Nucleated Red Blood Cells % 0.0 Neutrophils # 4.1 Lymphocytes # 1.1 Monocytes # 0.4 Eosinophils # 0.1 Basophils # 0.0 Nucleated Red Blood Cells # 0.0 Sodium Level 139 Potassium Level 2.9 *L Chloride Level 101 Carbon Dioxide Level 24 Anion Gap 17 H Blood Urea Nitrogen 31 H Creatinine 1.64 H Glucose Level 84 Calcium Level 8.4 Test 09/23/16 13:34 09/23/16 17:42 09/23/16 22:07 Bedside Glucose 105 132 149 Medications Medications Current Medications Apixaban (Eliquis) 2.5 mg BID PO Last administered on 09/23/16 21:25; Admin Dose 2.5 MG; Start 09/19/16 at 21:00 Ascorbic Acid (Vitamin C) 500 mg DAILY PO Last administered on 09/23/16 09:28 ; Admin Dose 500 MG; Start 09/20/16 at 09:00 Aspirin (Aspirin) 81 mg DAILY PO Last administered on 09/23/16 09:28; Admin Dose 81 MG; Start 09/20/16 at 09:00 Carvedilol (Coreg) 1.5625 mg BID PO Last administered on 09/22/16 20:47; Admin Dose 1.5625 MG; Start 09/19/16 at 21:00 Digoxin (Digoxin) 0.125 mg Q2D@13 PO ; Start 09/21/16 at 13:00; Status Future Hold Docusate Sodium (Colace) 200 mg QHS PO Last administered on 09/23/16 21:26; Admin Dose 200 MG; Start 09/19/16 at 21:00 Pantoprazole (Protonix Iv) 40 mg BID@06,18 IV Last administered on 09/23/16 18 :02; Admin Dose 40 MG; Start 09/20/16 at 06:00 Furosemide 20 mg 20 mg DAILY@06 IV Last administered on 09/23/16 05:41; Admin Dose 20 MG; Start 09/20/16 at 06:00 Levofloxacin/ Dextrose 100 ml @ 100 mls/hr Q48H IVPB Last administered on 09/21 20:47; Admin Dose 100 MLS/HR; Start 09/19/16 at 21:00 Norepinephrine 16 mg/Dextrose 500 ml @ 1.87 mls/hr TITRATE IV Last administered on 09/22/16 18:03; Admin Dose 7.5 MLS/HR; Start 09/20/16 at 02:00 Midazolam HCl (Versed) 50 ml @ 1 mls/hr TITRATE IV Last administered on 15:03; Admin Dose 6 MLS/HR; Start 09/20/16 at 02:00 Insulin Aspart (Novolog Insulin Pen) NOVOLOG *MILD* ALGORI... Q4 SC Last administered on 09/23/16 22:10; Admin Dose 1 UNIT; Start 09/21/16 at 17:00 Miscellaneous Information 1 ea NOTE XX ; Start 09/21/16 at 14:00 Glucose (Glutose) 15 gm Q15M PRN PO DECREASED GLUCOSE; Start 09/21/16 at 14:00 Glucose (Glutose) 22.5 gm Q15M PRN PO DECREASED GLUCOSE; Start 09/21/16 at 14: 00 Dextrose (D50w Syringe) 25 ml Q15M PRN IV DECREASED GLUCOSE; Start 09/21/16 at 14:00 Dextrose (D50w Syringe) 50 ml Q15M PRN IV DECREASED GLUCOSE; Start 09/21/16 at 14:00 Glucagon (Glucagen) 1 mg Q15M PRN IM DECREASED GLUCOSE; Start 09/21/16 at 14:00 Glucose 15 gm 15 gm Q15M PRN BUCCAL DECREASED GLUCOSE; Start 09/21/16 at 14:00 Vancomycin HCl 250 ml @ 125 mls/hr Q36H IVPB Last administered on 09/23/16 20 :33; Admin Dose 125 MLS/HR; Start 09/22/16 at 08:00 Caspofungin/ Sodium Chloride (Cancidas/NS) 250 ml @ 250 mls/hr Q24H IVPB Last administered on 09/23/16 16:41; Admin Dose 250 MLS/HR; Start 09/23/16 at 15:30 ; Stop 09/26/16 at 23:00 IV Flush (NS 10 ml) 10 ml PRN PRN IV IV PROTOCOL; Start 09/22/16 at 18:30 YANIRA HART MD Sep 23, 2016 23:12
[2016-09-24] VITALS (85 sets, daily range): BP systolic 88–130; BP diastolic 41–100; PULSE 60–75; RESP 10–25
[2016-09-24] MEDS: INSULIN ASPART [NOVOLOG] 3 ML PEN SC SCH ×6 (01:46→21:16)
[2016-09-24] MEDS: LEVOFLOXACIN 500MG/D5W (PMX) 100 ML IVPB SCH (01:47)
[2016-09-24] MEDS ORDERED: LORAZEPAM 2 MG INJ ONE (02:36)
[2016-09-24] MEDS: LORAZEPAM 2 MG INJ IV PRN (04:40)
[2016-09-24] MEDS: FUROSEMIDE 20 MG INJ IV SCH (04:58)
[2016-09-24] MEDS: PANTOPRAZOLE 40 MG INJ IV SCH ×2 (04:59→19:04)
[2016-09-24 06:36] LABS: POTASSIUM 3.4 mmol/L (3.5-5.1)
[2016-09-24 06:38] LABS: CREATININE 1.28 mg/dl (0.61-1.24)
[2016-09-24 06:39] LABS: CALCIUM 8.5 mg/dl (8.4-10.2)
--- NOTE | 2016-09-24 09:37 | CONS ---
Date/Time of Note Date/Time of Note DATE: 09/24/16 TIME: 09:35 Assessment/Plan Assessment/Plan Additional Assessment/Plan Ventilator settings; AC of 16, tidal volume 500, PEEP of 5, 30% FiO2. Next Patient currently on Levophed at 2.2 mics per minute. Assessment recommendations; 1. Patient admitted for recurrent respiratory failure due to flash pulmonary edema. 2. Underlying severe cardiomyopathy. 3. End-stage renal disease, on hemodialysis. 4. History of cardiac arrhythmia. 5. Anemia. Continue current treatment. Patient will need to have a tracheostomy and G- tube placed. The family has agreed to it, overall prognosis remains guarded owing to multiple comorbidities. 35 minutes of critical care time was spent evaluating the patient . Consultation Date/Type/Reason Admit Date/Time Sep 19, 2016 at 14:51 Type of Consultation: Pulmonary/critical care Referring Provider: THERESA RIVERA 24 HR Interval Summary Free Text/Dictation Patient condition remains stable. Still requiring low-dose Levophed for blood pressure maintenance. Has remained awake and alert. General exam; elderly male, awake currently in no distress, orally intubated. Exam/Review of Systems Vital Signs Vitals Vital Signs Date Time Temp Pulse Resp B/P Pulse Ox O2 Delivery O2 Flow Rate FiO2 09/24/16 08:05 60 21 100 30 09/24/16 05:00 104/48 09/24/16 04:00 98.0 09/23/16 19:00 Mechanical Ventilator Intake and Output 09/23/16 09/23/16 09/24/16 15:00 23:00 07:00 Intake Total 342.95 ml 1046.2 ml 261.2 ml Output Total 635 ml 3160 ml 60 ml Balance -292.05 ml -2113.8 ml 201.2 ml Exam HEENT exam is; supple neck, positive JVD. No lymphadenopathy. Midline trachea. No thyromegaly. No neck masses. Orally intubated. No neck bruits. Chest examined; diminished but clear breath sounds. There is a well-healed sternal scar. S1-S2 audible, no murmurs. Regular rhythm. Abdomen examination; soft, nondistended. No organomegaly. Bowel sounds audible. Extremity exam is; no peripheral edema. Next [employer] examination; patient is awake, alert follows simple commands and moves all 4 extremities. Results Result Diagram: 09/23/16 0300 09/24/16 0450 Results 24 hrs Laboratory Tests Test 09/23/16 09:37 09/23/16 13:34 09/23/16 17:42 09/23/16 22:07 Bedside Glucose 78 105 132 149 Test 09/24/16 01:40 09/24/16 04:50 09/24/16 05:22 Bedside Glucose 168 127 Sodium Level 139 Potassium Level 3.4 L Chloride Level 100 Carbon Dioxide Level 27 Anion Gap 15 Blood Urea Nitrogen 22 H Creatinine 1.28 H Glucose Level 120 Calcium Level 8.5 Medications Medications Current Medications Apixaban (Eliquis) 2.5 mg BID PO Last administered on 09/23/16 21:25; Admin Dose 2.5 MG; Start 09/19/16 at 21:00 Ascorbic Acid (Vitamin C) 500 mg DAILY PO Last administered on 09/23/16 09:28 ; Admin Dose 500 MG; Start 09/20/16 at 09:00 Aspirin (Aspirin) 81 mg DAILY PO Last administered on 09/23/16 09:28; Admin Dose 81 MG; Start 09/20/16 at 09:00 Carvedilol (Coreg) 1.5625 mg BID PO Last administered on 09/22/16 20:47; Admin Dose 1.5625 MG; Start 09/19/16 at 21:00 Digoxin (Digoxin) 0.125 mg Q2D@13 PO ; Start 09/21/16 at 13:00; Status Future Hold Docusate Sodium (Colace) 200 mg QHS PO Last administered on 09/23/16 21:26; Admin Dose 200 MG; Start 09/19/16 at 21:00 Pantoprazole (Protonix Iv) 40 mg BID@06,18 IV Last administered on 09/24/16 04 :59; Admin Dose 40 MG; Start 09/20/16 at 06:00 Furosemide 20 mg 20 mg DAILY@06 IV Last administered on 09/24/16 04:58; Admin Dose 20 MG; Start 09/20/16 at 06:00 Levofloxacin/ Dextrose 100 ml @ 100 mls/hr Q48H IVPB Last administered on 09/24 01:47; Admin Dose 100 MLS/HR; Start 09/19/16 at 21:00 Norepinephrine 16 mg/Dextrose 500 ml @ 1.87 mls/hr TITRATE IV Last administered on 09/24/16 04:37; Admin Dose 5.25 MLS/HR; Start 09/20/16 at 02:00 Midazolam HCl (Versed) 50 ml @ 1 mls/hr TITRATE IV Last administered on 15:03; Admin Dose 6 MLS/HR; Start 09/20/16 at 02:00 Insulin Aspart (Novolog Insulin Pen) NOVOLOG *MILD* ALGORI... Q4 SC Last administered on 09/24/16 01:46; Admin Dose 1 UNIT; Start 09/21/16 at 17:00 Miscellaneous Information 1 ea NOTE XX ; Start 09/21/16 at 14:00 Glucose (Glutose) 15 gm Q15M PRN PO DECREASED GLUCOSE; Start 09/21/16 at 14:00 Glucose (Glutose) 22.5 gm Q15M PRN PO DECREASED GLUCOSE; Start 09/21/16 at 14: 00 Dextrose (D50w Syringe) 25 ml Q15M PRN IV DECREASED GLUCOSE; Start 09/21/16 at 14:00 Dextrose (D50w Syringe) 50 ml Q15M PRN IV DECREASED GLUCOSE; Start 09/21/16 at 14:00 Glucagon (Glucagen) 1 mg Q15M PRN IM DECREASED GLUCOSE; Start 09/21/16 at 14:00 Glucose 15 gm 15 gm Q15M PRN BUCCAL DECREASED GLUCOSE; Start 09/21/16 at 14:00 Vancomycin HCl 250 ml @ 125 mls/hr Q36H IVPB Last administered on 09/23/16 20 :33; Admin Dose 125 MLS/HR; Start 09/22/16 at 08:00 Caspofungin/ Sodium Chloride (Cancidas/NS) 250 ml @ 250 mls/hr Q24H IVPB Last administered on 09/23/16 16:41; Admin Dose 250 MLS/HR; Start 09/23/16 at 15:30 ; Stop 09/26/16 at 23:00 IV Flush (NS 10 ml) 10 ml PRN PRN IV IV PROTOCOL; Start 09/22/16 at 18:30 Lorazepam (Ativan) 1 mg Q1H PRN IV AGITATION/ANXIETY Last administered on 04:40; Admin Dose 1 MG; Start 09/24/16 at 02:30 ADAMARIS RAMIREZ Sep 24, 2016 09:37
[2016-09-24] MEDS: APIXABAN 5 MG TABLET PO SCH ×2 (10:04→20:57)
[2016-09-24] MEDS: ASPIRIN 81 MG TAB PO SCH (10:04)
[2016-09-24] MEDS: ASCORBIC ACID 500 MG TAB PO SCH (10:05)
--- NOTE | 2016-09-24 12:16 | CONS ---
Date/Time of Note Date/Time of Note DATE: 09/24/16 TIME: 12:13 Assessment/Plan Assessment/Plan Chief Complaint/Hosp Course IMPRESSION: 1. Hypotension/shock state, question cardiogenic versus septic unlikely as patient had a low EF with negative cardiac enzymes, nonacute event. 2. Congestive heart failure, systolic, acute on chronic. 3. Coronary artery disease, status post coronary artery bypass graft surgery. 4. Chronic kidney disease on hemodialysis. 5. Coagulopathy secondary to Eliquis. 6. History of paroxysmal atrial fibrillation. 7. Likely sepsis. 8. Elevated digoxin level. 9. Anemia, worsening slight Recc: -Tele -Wean levo as tolerated -Contnue asa -HD for volume removal -Continue abx's and f/u cx data -pnding family discussion Problems: Consultation Date/Type/Reason Admit Date/Time Sep 19, 2016 at 14:51 Initial Consult Date 09/23/2016 Type of Consultation: Cardiology Reason for Consultation Shock/cardiomyopathy Referring Provider: THERESA RIVERA Exam/Review of Systems Vital Signs Vitals Vital Signs Date Time Temp Pulse Resp B/P Pulse Ox O2 Delivery O2 Flow Rate FiO2 09/24/16 10:11 65 23 100 30 09/24/16 05:00 104/48 09/24/16 04:00 98.0 09/23/16 19:00 Mechanical Ventilator Intake and Output 09/23/16 09/23/16 09/24/16 15:00 23:00 07:00 Intake Total 342.95 ml 1046.2 ml 261.2 ml Output Total 635 ml 3160 ml 60 ml Balance -292.05 ml -2113.8 ml 201.2 ml Exam Review of Systems: CONSTITUTIONAL: No fevers, chills. PULMONARY: intubated CARDIOVASCULAR: No obvious chest pain/palpitations GASTROINTESTINAL: No nausea/vomiting. GENITOURINARY: No hematuria/dysuria. MUSCULOSKELETAL: No obvious myagias/arthalgias. PSYCHIATRIC: No documented depression. NEUROLOGIC: No weakness Constitutional: alert Head: normocephalic ENMT: intubated Neck: jvd (9 cm water), supple Respiratory: diminished breath sounds (at bases/B) Cardiovascular: regular rate and rhythm Gastrointestinal: non-tender, soft Musculoskeletal: muscle tone (normal) Extremities: edema (none) Neurological: other (No focal deficits) Skin: other (No focal deficits) Results Result Diagram: 09/23/16 0300 09/24/16 0450 Results 24 hrs Laboratory Tests Test 09/23/16 13:34 09/23/16 17:42 09/23/16 22:07 09/24/16 01:40 Bedside Glucose 105 132 149 168 Test 09/24/16 04:50 09/24/16 05:22 09/24/16 10:24 Sodium Level 139 Potassium Level 3.4 L Chloride Level 100 Carbon Dioxide Level 27 Anion Gap 15 Blood Urea Nitrogen 22 H Creatinine 1.28 H Glucose Level 120 Calcium Level 8.5 Bedside Glucose 127 124 Medications Medications Current Medications Apixaban (Eliquis) 2.5 mg BID PO Last administered on 09/24/16 10:04; Admin Dose 2.5 MG; Start 09/19/16 at 21:00 Ascorbic Acid (Vitamin C) 500 mg DAILY PO Last administered on 09/24/16 10:05 ; Admin Dose 500 MG; Start 09/20/16 at 09:00 Aspirin (Aspirin) 81 mg DAILY PO Last administered on 09/24/16 10:04; Admin Dose 81 MG; Start 09/20/16 at 09:00 Carvedilol (Coreg) 1.5625 mg BID PO Last administered on 09/22/16 20:47; Admin Dose 1.5625 MG; Start 09/19/16 at 21:00 Digoxin (Digoxin) 0.125 mg Q2D@13 PO ; Start 09/21/16 at 13:00; Status Future Hold Docusate Sodium (Colace) 200 mg QHS PO Last administered on 09/23/16 21:26; Admin Dose 200 MG; Start 09/19/16 at 21:00 Pantoprazole (Protonix Iv) 40 mg BID@06,18 IV Last administered on 09/24/16 04 :59; Admin Dose 40 MG; Start 09/20/16 at 06:00 Furosemide 20 mg 20 mg DAILY@06 IV Last administered on 09/24/16 04:58; Admin Dose 20 MG; Start 09/20/16 at 06:00 Levofloxacin/ Dextrose 100 ml @ 100 mls/hr Q48H IVPB Last administered on 09/24 01:47; Admin Dose 100 MLS/HR; Start 09/19/16 at 21:00 Norepinephrine 16 mg/Dextrose 500 ml @ 1.87 mls/hr TITRATE IV Last administered on 09/24/16 04:37; Admin Dose 5.25 MLS/HR; Start 09/20/16 at 02:00 Midazolam HCl (Versed) 50 ml @ 1 mls/hr TITRATE IV Last administered on 15:03; Admin Dose 6 MLS/HR; Start 09/20/16 at 02:00 Insulin Aspart (Novolog Insulin Pen) NOVOLOG *MILD* ALGORI... Q4 SC Last administered on 09/24/16 01:46; Admin Dose 1 UNIT; Start 09/21/16 at 17:00 Miscellaneous Information 1 ea NOTE XX ; Start 09/21/16 at 14:00 Glucose (Glutose) 15 gm Q15M PRN PO DECREASED GLUCOSE; Start 09/21/16 at 14:00 Glucose (Glutose) 22.5 gm Q15M PRN PO DECREASED GLUCOSE; Start 09/21/16 at 14: 00 Dextrose (D50w Syringe) 25 ml Q15M PRN IV DECREASED GLUCOSE; Start 09/21/16 at 14:00 Dextrose (D50w Syringe) 50 ml Q15M PRN IV DECREASED GLUCOSE; Start 09/21/16 at 14:00 Glucagon (Glucagen) 1 mg Q15M PRN IM DECREASED GLUCOSE; Start 09/21/16 at 14:00 Glucose 15 gm 15 gm Q15M PRN BUCCAL DECREASED GLUCOSE; Start 09/21/16 at 14:00 Vancomycin HCl 250 ml @ 125 mls/hr Q36H IVPB Last administered on 09/23/16 20 :33; Admin Dose 125 MLS/HR; Start 09/22/16 at 08:00 Caspofungin/ Sodium Chloride (Cancidas/NS) 250 ml @ 250 mls/hr Q24H IVPB Last administered on 09/23/16 16:41; Admin Dose 250 MLS/HR; Start 09/23/16 at 15:30 ; Stop 09/26/16 at 23:00 IV Flush (NS 10 ml) 10 ml PRN PRN IV IV PROTOCOL; Start 09/22/16 at 18:30 Lorazepam 1 mg 1 mg Q1H PRN IV AGITATION/ANXIETY Last administered on 04:40; Admin Dose 1 MG; Start 09/24/16 at 02:30 Potassium Chloride/Sodium Chloride (KCl/NS) 110 ml @ 55 mls/hr ONCE ONCE IVPB ; Start 09/24/16 at 13:00; Stop 09/24/16 at 14:59 POLI SAN Sep 24, 2016 12:16
[2016-09-24] MEDS ORDERED: POTASSIUM CHLORIDE 20 MEQ in SOD CHLORIDE 0.9% 100 ML IVPB ONE (13:00)
[2016-09-24] MEDS ORDERED: POTASSIUM CHLORIDE 50 ML ONE (13:31)
--- NOTE | 2016-09-24 14:17 | PN ---
Date/Time of Note Date/Time of Note DATE: 09/24/16 TIME: 14:12 Assessment/Plan VTE Prophylaxis VTE Prophylaxis Intervention: other (Eliquis) Lines/Catheters IV Catheter Type (from Nrsg): Peripheral IV Urinary Cath still in place: Yes Reason Cath still needed: urinary retention Assessment/Plan Chief Complaint/Hosp Course Assessment/Plan: 81M with: 1. 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 Endstage CHF with exacerbation - CV team consulted, AICD in place - Lasix, low dose Coreg, f/u CV rec's 3. Chronic kidney disease on hemodialysis 3 times a week limited by hypotension - f/u renal rec's, HD as tolerated per Nephro 4. Shock ?cardiogenic r/o septic on pressor support - wean as tolerated 5. Diabetes mellitus type 2 - ISS 6. Paroxysmal atrial fibrillation, rate controlled - monitor, BB, eliquis 7. 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 8. Chronic liver cirrhosis with coagulopathy and mild hyperbilirubinemia and transaminitis likely associated with chronic CHF - monitor 9. Severe debility. 10. 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 11. LE cellulitis and ulcerations ? PVD Prognosis : very poor and guarded Hospitalist spoke extensively with his son and recommended hospice care a few days ago, remains full code at this time. Family conference to possibly be scheduled in 1-2 days as well. Critical care time = 40 min Problems: Subjective 24 Hr Interval Summary Free Text/Dictation Pt still intubated, on pressor. Exam/Review of Systems Vital Signs Vitals Vital Signs Date Time Temp Pulse Resp B/P Pulse Ox O2 Delivery O2 Flow Rate FiO2 09/24/16 13:45 60 17 101/55 100 09/24/16 12:00 98.5 09/24/16 10:11 30 09/23/16 19:00 Mechanical Ventilator Intake and Output 09/23/16 09/23/16 09/24/16 15:00 23:00 07:00 Intake Total 342.95 ml 1046.2 ml 391.2 ml Output Total 635 ml 3160 ml 95 ml Balance -292.05 ml -2113.8 ml 296.2 ml Exam Constitutional: frail, other (intubated and sedated, comfortable on vent) Head: normocephalic Eyes: PERRL ENMT: intubated Respiratory: diminished breath sounds, No crackles/rales Cardiovascular: irregular rhythm, murmurs/extra sounds Gastrointestinal: bowel sounds, distended, soft Musculoskeletal: No nl extremities to inspection Neurological: No nl mental status Skin: rash or lesions (multiple superficial ulcers on both feet) Results Result Diagram: 09/23/16 0300 09/24/16 0450 Results 24 hrs Laboratory Tests Test 09/23/16 17:42 09/23/16 22:07 09/24/16 01:40 09/24/16 04:50 Bedside Glucose 132 149 168 Sodium Level 139 Potassium Level 3.4 L Chloride Level 100 Carbon Dioxide Level 27 Anion Gap 15 Blood Urea Nitrogen 22 H Creatinine 1.28 H Glucose Level 120 Calcium Level 8.5 Test 09/24/16 05:22 09/24/16 10:24 09/24/16 13:43 Bedside Glucose 127 124 148 Medications Medications Current Medications Apixaban (Eliquis) 2.5 mg BID PO Last administered on 09/24/16 10:04; Admin Dose 2.5 MG; Start 09/19/16 at 21:00 Ascorbic Acid (Vitamin C) 500 mg DAILY PO Last administered on 09/24/16 10:05 ; Admin Dose 500 MG; Start 09/20/16 at 09:00 Aspirin (Aspirin) 81 mg DAILY PO Last administered on 09/24/16 10:04; Admin Dose 81 MG; Start 09/20/16 at 09:00 Carvedilol (Coreg) 1.5625 mg BID PO Last administered on 09/22/16 20:47; Admin Dose 1.5625 MG; Start 09/19/16 at 21:00; Status Future Hold Digoxin (Digoxin) 0.125 mg Q2D@13 PO ; Start 09/21/16 at 13:00; Status Future Hold Docusate Sodium (Colace) 200 mg QHS PO Last administered on 09/23/16 21:26; Admin Dose 200 MG; Start 09/19/16 at 21:00 Pantoprazole (Protonix Iv) 40 mg BID@06,18 IV Last administered on 09/24/16 04 :59; Admin Dose 40 MG; Start 09/20/16 at 06:00 Furosemide 20 mg 20 mg DAILY@06 IV Last administered on 09/24/16 04:58; Admin Dose 20 MG; Start 09/20/16 at 06:00 Levofloxacin/ Dextrose 100 ml @ 100 mls/hr Q48H IVPB Last administered on 09/24 01:47; Admin Dose 100 MLS/HR; Start 09/19/16 at 21:00 Norepinephrine 16 mg/Dextrose 500 ml @ 1.87 mls/hr TITRATE IV Last administered on 09/24/16 04:37; Admin Dose 5.25 MLS/HR; Start 09/20/16 at 02:00 Midazolam HCl (Versed) 50 ml @ 1 mls/hr TITRATE IV Last administered on 15:03; Admin Dose 6 MLS/HR; Start 09/20/16 at 02:00 Insulin Aspart (Novolog Insulin Pen) NOVOLOG *MILD* ALGORI... Q4 SC Last administered on 09/24/16 13:48; Admin Dose 1 UNIT; Start 09/21/16 at 17:00 Miscellaneous Information 1 ea NOTE XX ; Start 09/21/16 at 14:00 Glucose (Glutose) 15 gm Q15M PRN PO DECREASED GLUCOSE; Start 09/21/16 at 14:00 Glucose (Glutose) 22.5 gm Q15M PRN PO DECREASED GLUCOSE; Start 09/21/16 at 14: 00 Dextrose (D50w Syringe) 25 ml Q15M PRN IV DECREASED GLUCOSE; Start 09/21/16 at 14:00 Dextrose (D50w Syringe) 50 ml Q15M PRN IV DECREASED GLUCOSE; Start 09/21/16 at 14:00 Glucagon (Glucagen) 1 mg Q15M PRN IM DECREASED GLUCOSE; Start 09/21/16 at 14:00 Glucose 15 gm 15 gm Q15M PRN BUCCAL DECREASED GLUCOSE; Start 09/21/16 at 14:00 Vancomycin HCl 250 ml @ 125 mls/hr Q36H IVPB Last administered on 09/23/16 20 :33; Admin Dose 125 MLS/HR; Start 09/22/16 at 08:00 Caspofungin/ Sodium Chloride (Cancidas/NS) 250 ml @ 250 mls/hr Q24H IVPB Last administered on 09/23/16 16:41; Admin Dose 250 MLS/HR; Start 09/23/16 at 15:30 ; Stop 09/26/16 at 23:00 IV Flush (NS 10 ml) 10 ml PRN PRN IV IV PROTOCOL; Start 09/22/16 at 18:30 Lorazepam 1 mg 1 mg Q1H PRN IV AGITATION/ANXIETY Last administered on 04:40; Admin Dose 1 MG; Start 09/24/16 at 02:30 Potassium Chloride/Sodium Chloride (KCl/NS) 110 ml @ 55 mls/hr ONCE ONCE IVPB Last administered on 09/24/16 13:35; Admin Dose 55 MLS/HR; Start 09/24/16 at 13:00; Stop 09/24/16 at 14:59 THERESA RIVERA Sep 24, 2016 14:17
--- NOTE | 2016-09-24 15:42 | CONS ---
Date/Time of Note Date/Time of Note DATE: 09/24/16 TIME: 15:40 Assessment/Plan Assessment/Plan Chief Complaint/Hosp Course ID PROGRESS NOTE TOTAL ABX DAY # 6 => Vanco IV + Levaquin + Cancidas #3 s/p Merrem 09/19 x1 24H INTERVAL SUMMARY * 81 yo M with jaundice, noncommunicative on the Vent, chronic sepsis, multi- organ failure, cold shock with hypothermic readings and hypoglycemia on admit * WBC normal w/Neuts normalized today after increased Neuts % yesterday * No new issues PHYSICAL EXAMINATION: GENERAL: 81 yo M orally intubated on the Vent HEENT: (+)Jaundice, (+)Icteric, NGT-> Secure, ETT-> secure to Vent NECK: IJ HD catheter CHEST: Rise symmetrical, rhonchi HEART: RRR (+)RA ABDOMEN: Distended, firmm hepatomegaly EXTREMITIES: Warm Decubs bilateral feet SKIN: ID ASSESSMENT: 81 yo M w/multi-organ system failure admitted from HD unit with: 1. Shock -> cardiogenic + septic + liver etiologies suspected 2. Severe sepsis with lactic acidosis secondary to HCAP and UTI * History of recurrent/recent BLL HCAP * Yeast UTI URINE CULTURE Final Organism 1 FUNMILAYO ALBICANS COLONY COUNT 50,000 - 60,000 CFU/ml 3. Acute hypoxic respiratory failure -> intubated in the emergency room. 4. Acute CHF exacerbation w/progressive end-stage congestive heart failure. * Coronary artery disease with severe ischemic cardiomyopathy -> Hx of CABG, ICD placement. 5. Paroxysmal atrial fibrillation. 6. Chronic renal disease on hemodialysis, end-stage renal disease. 7. Adult-onset diabetes mellitus. 8. BLEXT Diabetic, ischemic, new ulcers and cellulitis both feet. 9. 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 10. Chronic cirrhosis of the liver with coagulopathy, mild hyperbilirubinemia and transaminitis. 11. 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 12. Severe debility. (-)MRSA Nares INVASIVES: * PIV, ETT, NGT, R-IJ HD catheter, ICD CURRENT ABX: TOTAL ABX DAY # 5 => Vanco IV + Levaquin + Cancidas #2 s/p Merrem 09/19 x1 ID RECOMMENDATIONS: => 81 yo M w/multi-organ system failure end-stage renal, end-stage cardiomyopathy, liver failure w/hypoglycemia, acute respiratory failure-> doubt ABX with reverse the poor prognosis. * Continue current ABX + add antifungal for yeast UTI = Cancidas (Diflucan deferred due to drug-drug interactions) * FC changed due to yeast * Critically ill with multi-organ failure patient is palliative/hospice care appropriate; nevertheless he remains on aggressive medical plan of care. . . Problems: Consultation Date/Type/Reason Admit Date/Time Sep 19, 2016 at 14:51 Type of Consultation: ID Referring Provider: THERESA RIVERA Exam/Review of Systems Vital Signs Vitals Vital Signs Date Time Temp Pulse Resp B/P Pulse Ox O2 Delivery O2 Flow Rate FiO2 09/24/16 13:45 60 17 101/55 100 09/24/16 12:00 98.5 09/24/16 10:11 30 09/23/16 19:00 Mechanical Ventilator Intake and Output 09/23/16 09/23/16 09/24/16 15:00 23:00 07:00 Intake Total 342.95 ml 1046.2 ml 391.2 ml Output Total 635 ml 3160 ml 95 ml Balance -292.05 ml -2113.8 ml 296.2 ml Results Result Diagram: 09/23/16 0300 09/24/16 0450 Results 24 hrs Laboratory Tests Test 09/23/16 17:42 09/23/16 22:07 09/24/16 01:40 09/24/16 04:50 Bedside Glucose 132 149 168 Sodium Level 139 Potassium Level 3.4 L Chloride Level 100 Carbon Dioxide Level 27 Anion Gap 15 Blood Urea Nitrogen 22 H Creatinine 1.28 H Glucose Level 120 Calcium Level 8.5 Test 09/24/16 05:22 09/24/16 10:24 09/24/16 13:43 Bedside Glucose 127 124 148 Medications Medications Current Medications Apixaban (Eliquis) 2.5 mg BID PO Last administered on 09/24/16 10:04; Admin Dose 2.5 MG; Start 09/19/16 at 21:00 Ascorbic Acid (Vitamin C) 500 mg DAILY PO Last administered on 09/24/16 10:05 ; Admin Dose 500 MG; Start 09/20/16 at 09:00 Aspirin (Aspirin) 81 mg DAILY PO Last administered on 09/24/16 10:04; Admin Dose 81 MG; Start 09/20/16 at 09:00 Carvedilol (Coreg) 1.5625 mg BID PO Last administered on 09/22/16 20:47; Admin Dose 1.5625 MG; Start 09/19/16 at 21:00; Status Future Hold Digoxin (Digoxin) 0.125 mg Q2D@13 PO ; Start 09/21/16 at 13:00; Status Future Hold Docusate Sodium (Colace) 200 mg QHS PO Last administered on 09/23/16 21:26; Admin Dose 200 MG; Start 09/19/16 at 21:00 Pantoprazole (Protonix Iv) 40 mg BID@06,18 IV Last administered on 09/24/16 04 :59; Admin Dose 40 MG; Start 09/20/16 at 06:00 Furosemide 20 mg 20 mg DAILY@06 IV Last administered on 09/24/16 04:58; Admin Dose 20 MG; Start 09/20/16 at 06:00 Levofloxacin/ Dextrose 100 ml @ 100 mls/hr Q48H IVPB Last administered on 09/24 01:47; Admin Dose 100 MLS/HR; Start 09/19/16 at 21:00 Norepinephrine 16 mg/Dextrose 500 ml @ 1.87 mls/hr TITRATE IV Last administered on 09/24/16 04:37; Admin Dose 5.25 MLS/HR; Start 09/20/16 at 02:00 Midazolam HCl (Versed) 50 ml @ 1 mls/hr TITRATE IV Last administered on 15:03; Admin Dose 6 MLS/HR; Start 09/20/16 at 02:00 Insulin Aspart (Novolog Insulin Pen) NOVOLOG *MILD* ALGORI... Q4 SC Last administered on 09/24/16 13:48; Admin Dose 1 UNIT; Start 09/21/16 at 17:00 Miscellaneous Information 1 ea NOTE XX ; Start 09/21/16 at 14:00 Glucose (Glutose) 15 gm Q15M PRN PO DECREASED GLUCOSE; Start 09/21/16 at 14:00 Glucose (Glutose) 22.5 gm Q15M PRN PO DECREASED GLUCOSE; Start 09/21/16 at 14: 00 Dextrose (D50w Syringe) 25 ml Q15M PRN IV DECREASED GLUCOSE; Start 09/21/16 at 14:00 Dextrose (D50w Syringe) 50 ml Q15M PRN IV DECREASED GLUCOSE; Start 09/21/16 at 14:00 Glucagon (Glucagen) 1 mg Q15M PRN IM DECREASED GLUCOSE; Start 09/21/16 at 14:00 Glucose 15 gm 15 gm Q15M PRN BUCCAL DECREASED GLUCOSE; Start 09/21/16 at 14:00 Vancomycin HCl 250 ml @ 125 mls/hr Q36H IVPB Last administered on 09/23/16 20 :33; Admin Dose 125 MLS/HR; Start 09/22/16 at 08:00 Caspofungin/ Sodium Chloride (Cancidas/NS) 250 ml @ 250 mls/hr Q24H IVPB Last administered on 09/23/16 16:41; Admin Dose 250 MLS/HR; Start 09/23/16 at 15:30 ; Stop 09/26/16 at 23:00 IV Flush (NS 10 ml) 10 ml PRN PRN IV IV PROTOCOL; Start 09/22/16 at 18:30 Lorazepam (Ativan) 1 mg Q1H PRN IV AGITATION/ANXIETY Last administered on 04:40; Admin Dose 1 MG; Start 09/24/16 at 02:30 NAEL COY NP Sep 24, 2016 15:42
[2016-09-24] MEDS: CASPOFUNGIN 50 MG in SOD CHLORIDE 0.9% 250 ML IVPB SCH (16:21)
--- NOTE | 2016-09-24 18:46 | CONS ---
Date/Time of Note Date/Time of Note DATE: 09/24/16 TIME: 18:45 Assessment/Plan Assessment/Plan Chief Complaint/Hosp Course IMPRESSION: 1. Acute hypoxic respiratory failure.on vent 2. Patient has a chronic systolic heart failure. 3. Chronic kidney disease requiring hemodialysis. 4. History of acute tubular necrosis. 5. Cardiomyopathy. 6. Anemia. 7. Neutropenia. 8. The patient has hypoalbuminemia. 9. Patient has ventilator dependent respiratory failure. 10. History of sepsis. 11. Septic shock. 12 hypokalemia plan continue hd weaning d/w family kcl Problems: Consultation Date/Type/Reason Admit Date/Time Sep 19, 2016 at 14:51 Type of Consultation: renal Referring Provider: THERESA RIVERA 24 HR Interval Summary Constitutional: other (on vent) Exam/Review of Systems Vital Signs Vitals Vital Signs Date Time Temp Pulse Resp B/P Pulse Ox O2 Delivery O2 Flow Rate FiO2 09/24/16 17:10 69 22 97 30 09/24/16 13:45 101/55 09/24/16 12:00 98.5 09/23/16 19:00 Mechanical Ventilator Intake and Output 09/23/16 09/23/16 09/24/16 15:00 23:00 07:00 Intake Total 342.95 ml 1046.2 ml 391.2 ml Output Total 635 ml 3160 ml 95 ml Balance -292.05 ml -2113.8 ml 296.2 ml Exam Respiratory: diminished breath sounds Cardiovascular: regular rate and rhythm Gastrointestinal: bowel sounds (+), soft Extremities: edema (+) Results Result Diagram: 09/23/16 0300 09/24/16 0450 Results 24 hrs Laboratory Tests Test 09/23/16 22:07 09/24/16 01:40 09/24/16 04:50 09/24/16 05:22 Bedside Glucose 149 168 127 Sodium Level 139 Potassium Level 3.4 L Chloride Level 100 Carbon Dioxide Level 27 Anion Gap 15 Blood Urea Nitrogen 22 H Creatinine 1.28 H Glucose Level 120 Calcium Level 8.5 Test 09/24/16 10:24 09/24/16 13:43 09/24/16 16:52 Bedside Glucose 124 148 156 Medications Medications Current Medications Apixaban (Eliquis) 2.5 mg BID PO Last administered on 09/24/16t 10:04; Admin Dose 2.5 MG; Start 4/22/17 at 21:00 Ascorbic Acid (Vitamin C) 500 mg DAILY PO Last administered on 09/24/16 10:05 ; Admin Dose 500 MG; Start 09/20/16 at 09:00 Aspirin (Aspirin) 81 mg DAILY PO Last administered on 09/24/16 10:04; Admin Dose 81 MG; Start 09/20/16 at 09:00 Carvedilol (Coreg) 1.5625 mg BID PO Last administered on 09/22/16 20:47; Admin Dose 1.5625 MG; Start 09/19/16 at 21:00; Status Future Hold Digoxin (Digoxin) 0.125 mg Q2D@13 PO ; Start 09/21/16 at 13:00; Status Future Hold Docusate Sodium (Colace) 200 mg QHS PO Last administered on 09/23/16 21:26; Admin Dose 200 MG; Start 09/19/16 at 21:00 Pantoprazole (Protonix Iv) 40 mg BID@06,18 IV Last administered on 09/24/16 04 :59; Admin Dose 40 MG; Start 09/20/16 at 06:00 Furosemide 20 mg 20 mg DAILY@06 IV Last administered on 09/24/16 04:58; Admin Dose 20 MG; Start 09/20/16 at 06:00 Levofloxacin/ Dextrose 100 ml @ 100 mls/hr Q48H IVPB Last administered on 09/24 01:47; Admin Dose 100 MLS/HR; Start 09/19/16 at 21:00 Norepinephrine 16 mg/Dextrose 500 ml @ 1.87 mls/hr TITRATE IV Last administered on 09/24/16 04:37; Admin Dose 5.25 MLS/HR; Start 09/20/16 at 02:00 Midazolam HCl (Versed) 50 ml @ 1 mls/hr TITRATE IV Last administered on 15:03; Admin Dose 6 MLS/HR; Start 09/20/16 at 02:00 Insulin Aspart (Novolog Insulin Pen) NOVOLOG *MILD* ALGORI... Q4 SC Last administered on 09/24/16 16:56; Admin Dose 1 UNIT; Start 09/21/16 at 17:00 Miscellaneous Information 1 ea NOTE XX ; Start 09/21/16 at 14:00 Glucose (Glutose) 15 gm Q15M PRN PO DECREASED GLUCOSE; Start 09/21/16 at 14:00 Glucose (Glutose) 22.5 gm Q15M PRN PO DECREASED GLUCOSE; Start 09/21/16 at 14: 00 Dextrose (D50w Syringe) 25 ml Q15M PRN IV DECREASED GLUCOSE; Start 09/21/16 at 14:00 Dextrose (D50w Syringe) 50 ml Q15M PRN IV DECREASED GLUCOSE; Start 09/21/16 at 14:00 Glucagon (Glucagen) 1 mg Q15M PRN IM DECREASED GLUCOSE; Start 09/21/16 at 14:00 Glucose 15 gm 15 gm Q15M PRN BUCCAL DECREASED GLUCOSE; Start 09/21/16 at 14:00 Vancomycin HCl 250 ml @ 125 mls/hr Q36H IVPB Last administered on 09/23/16 20 :33; Admin Dose 125 MLS/HR; Start 09/22/16 at 08:00 Caspofungin/ Sodium Chloride (Cancidas/NS) 250 ml @ 250 mls/hr Q24H IVPB Last administered on 09/24/16 16:21; Admin Dose 250 MLS/HR; Start 09/23/16 at 15:30 ; Stop 09/26/16 at 23:00 IV Flush (NS 10 ml) 10 ml PRN PRN IV IV PROTOCOL; Start 09/22/16 at 18:30 Lorazepam (Ativan) 1 mg Q1H PRN IV AGITATION/ANXIETY Last administered on 04:40; Admin Dose 1 MG; Start 09/24/16 at 02:30 YANIRA HART MD Sep 24, 2016 18:46
[2016-09-24] MEDS: DOCUSATE SODIUM 10 MG/ML (10ML CUP) NGT SCH (20:57)
[2016-09-25] VITALS (85 sets, daily range): BP systolic 80–150; BP diastolic 38–99; PULSE 60–89; RESP 14–30
[2016-09-25] MEDS: INSULIN ASPART [NOVOLOG] 3 ML PEN SC SCH ×6 (01:00→21:00)
[2016-09-25] MEDS: LORAZEPAM 2 MG INJ IV PRN (01:34)
[2016-09-25] MEDS: FUROSEMIDE 20 MG INJ IV SCH (05:16)
[2016-09-25] MEDS: PANTOPRAZOLE 40 MG INJ IV SCH ×2 (05:16→18:56)
[2016-09-25 05:24] LABS: POTASSIUM 3.4 mmol/L (3.5-5.1)
[2016-09-25 05:27] LABS: CREATININE 1.6 mg/dl (0.61-1.24)
[2016-09-25 05:28] LABS: CALCIUM 8.7 mg/dl (8.4-10.2)
[2016-09-25] MEDS: POTASSIUM CHLORIDE (SR) 20 MEQ TAB PO SCH (08:37)
[2016-09-25] MEDS: ASCORBIC ACID 500 MG TAB PO SCH (08:37)
[2016-09-25] MEDS: ASPIRIN 81 MG TAB PO SCH (08:37)
[2016-09-25] MEDS: APIXABAN 5 MG TABLET PO SCH ×2 (08:38→22:02)
[2016-09-25] MEDS: VANCOMYCIN 1 GM in NS 250 ML IVPB SCH (08:41)
--- NOTE | 2016-09-25 09:47 | CONS ---
Date/Time of Note Date/Time of Note DATE: 09/25/16 TIME: 09:44 Assessment/Plan Assessment/Plan Additional Assessment/Plan Ventilator settings; AC of 16, tidal volume 500, PEEP of 5, 30% FiO2. Assessment recommendations; 1. Patient admitted for respiratory failure due to recurrent flash pulmonary edema, this is his third intubation. 2. History of coronary artery disease, status post bypass surgery in the past. 3. Chronic renal failure, on hemodialysis. 4. Mild thrombocytopenia. 5. Persistent mild hypotension, likely from underlying cardiomyopathy. 6. History of cardiac arrhythmia. Status post pacemaker implantation in the past. Continue current treatment. Patient's family likely will opt for tracheostomy and G-tube placement. Overall prognosis is guarded on account of multiple comorbidities. About 35 minutes critical care time was spent evaluating the patient. Consultation Date/Type/Reason Admit Date/Time Sep 19, 2016 at 14:51 Type of Consultation: Pulmonary/critical care Referring Provider: THERESA RIVERA 24 HR Interval Summary Free Text/Dictation Patient condition remains critical. Remains ventilator dependent. Patient still hemodynamically unstable requiring low-dose Levophed for blood pressure maintenance. General exam; elderly male, orally intubated, awake alert. Currently in no distress. Exam/Review of Systems Vital Signs Vitals Vital Signs Date Time Temp Pulse Resp B/P Pulse Ox O2 Delivery O2 Flow Rate FiO2 09/25/16 09:00 62 15 97/46 100 09/25/16 07:30 98.7 09/25/16 05:21 30 09/24/16 19:00 Mechanical Ventilator Intake and Output 09/24/16 09/24/16 09/25/16 15:00 23:00 07:00 Intake Total 320 ml 738.4 ml 387.65 ml Output Total 365 ml 105 ml 85 ml Balance -45 ml 633.4 ml 302.65 ml Exam HEENT examination; supple neck, positive JVD. No lymphadenopathy. Midline trachea. No thyromegaly. Patient has few remaining teeth. Has bilateral cataracts. No thyromegaly. Chest examination; diminished but clear vessel. S1-S2 audible, no murmurs. Paced rhythm. There is a well-healed sternal scar. There is a pacemaker in the left chest wall. Abdomen examination; soft, nondistended. No organomegaly. Bowel sounds audible. Extremity examination; no peripheral edema. Patient does have ecchymosis involving all 4 extremities. [employer] examination; patient is awake, alert follows simple commands and moves all 4 extremities. Results Result Diagram: 09/23/16 0300 09/25/16 0400 Results 24 hrs Laboratory Tests Test 09/24/16 10:24 09/24/16 13:43 09/24/16 16:52 09/24/16 21:08 Bedside Glucose 124 148 156 151 Test 09/25/16 01:30 09/25/16 04:00 09/25/16 05:24 09/25/16 08:32 Bedside Glucose 126 125 118 Sodium Level 139 Potassium Level 3.4 L Chloride Level 101 Carbon Dioxide Level 27 Anion Gap 14 Blood Urea Nitrogen 31 H Creatinine 1.60 H Glucose Level 111 Calcium Level 8.7 Medications Medications Current Medications Apixaban (Eliquis) 2.5 mg BID PO Last administered on 09/25/16 08:38; Admin Dose 2.5 MG; Start 09/19/16 at 21:00 Ascorbic Acid (Vitamin C) 500 mg DAILY PO Last administered on 09/25/16 08:37 ; Admin Dose 500 MG; Start 09/20/16 at 09:00 Aspirin (Aspirin) 81 mg DAILY PO Last administered on 09/25/16 08:37; Admin Dose 81 MG; Start 09/20/16 at 09:00 Carvedilol (Coreg) 1.5625 mg BID PO Last administered on 09/22/16 20:47; Admin Dose 1.5625 MG; Start 09/19/16 at 21:00; Status Future Hold Digoxin (Digoxin) 0.125 mg Q2D@13 PO ; Start 09/21/16 at 13:00; Status Future Hold Pantoprazole (Protonix Iv) 40 mg BID@06,18 IV Last administered on 09/25/16 05 :16; Admin Dose 40 MG; Start 09/20/16 at 06:00 Furosemide 20 mg 20 mg DAILY@06 IV Last administered on 09/25/16 05:16; Admin Dose 20 MG; Start 09/20/16 at 06:00 Levofloxacin/ Dextrose 100 ml @ 100 mls/hr Q48H IVPB Last administered on 09/24 01:47; Admin Dose 100 MLS/HR; Start 09/19/16 at 21:00 Norepinephrine 16 mg/Dextrose 500 ml @ 1.87 mls/hr TITRATE IV Last administered on 09/25/16 06:05; Admin Dose 5.25 MLS/HR; Start 09/20/16 at 02:00 Midazolam HCl (Versed) 50 ml @ 1 mls/hr TITRATE IV Last administered on 15:03; Admin Dose 6 MLS/HR; Start 09/20/16 at 02:00 Insulin Aspart (Novolog Insulin Pen) NOVOLOG *MILD* ALGORI... Q4 SC Last administered on 09/24/16 21:16; Admin Dose 1 UNIT; Start 09/21/16 at 17:00 Miscellaneous Information 1 ea NOTE XX ; Start 09/21/16 at 14:00 Glucose (Glutose) 15 gm Q15M PRN PO DECREASED GLUCOSE; Start 09/21/16 at 14:00 Glucose (Glutose) 22.5 gm Q15M PRN PO DECREASED GLUCOSE; Start 09/21/16 at 14: 00 Dextrose (D50w Syringe) 25 ml Q15M PRN IV DECREASED GLUCOSE; Start 09/21/16 at 14:00 Dextrose (D50w Syringe) 50 ml Q15M PRN IV DECREASED GLUCOSE; Start 09/21/16 at 14:00 Glucagon (Glucagen) 1 mg Q15M PRN IM DECREASED GLUCOSE; Start 09/21/16 at 14:00 Glucose 15 gm 15 gm Q15M PRN BUCCAL DECREASED GLUCOSE; Start 09/21/16 at 14:00 Vancomycin HCl 250 ml @ 125 mls/hr Q36H IVPB Last administered on 09/25/16 08 :41; Admin Dose 125 MLS/HR; Start 09/22/16 at 08:00 Caspofungin/ Sodium Chloride (Cancidas/NS) 250 ml @ 250 mls/hr Q24H IVPB Last administered on 09/24/16 16:21; Admin Dose 250 MLS/HR; Start 09/23/16 at 15:30 ; Stop 09/26/16 at 23:00 IV Flush (NS 10 ml) 10 ml PRN PRN IV IV PROTOCOL; Start 09/22/16 at 18:30 Lorazepam (Ativan) 1 mg Q1H PRN IV AGITATION/ANXIETY Last administered on 01:34; Admin Dose 1 MG; Start 09/24/16 at 02:30 Potassium Chloride (Klor-Con 20) 20 meq DAILY PO Last administered on 08:37; Admin Dose 20 MEQ; Start 09/25/16 at 09:00 Docusate Sodium (Colace Liquid Cup) 200 mg QHS NGT Last administered on 20:57; Admin Dose 200 MG; Start 09/24/16 at 21:00 ADAMARIS RAMIREZ Sep 25, 2016 09:47
--- NOTE | 2016-09-25 11:37 | CONS ---
Date/Time of Note Date/Time of Note DATE: 09/25/16 TIME: 11:35 Assessment/Plan Assessment/Plan Chief Complaint/Hosp Course 1. Renal failure, HD dependent, HD today Problems: Additional Assessment/Plan . Acute hypoxic respiratory failure.on vent 2. Patient has a chronic systolic heart failure. 3. Chronic kidney disease requiring hemodialysis. 4. History of acute tubular necrosis. 5. Cardiomyopathy. 6. Anemia. 7. Neutropenia. 8. The patient has hypoalbuminemia. 9. Patient has ventilator dependent respiratory failure. 10. History of sepsis. 11. Septic shock. 12 hypokalemia Consultation Date/Type/Reason Admit Date/Time Sep 19, 2016 at 14:51 Initial Consult Date 09/19/2016 Type of Consultation: Pulmonary/critical care Reason for Consultation Nephrology Dr Lamar Referring Provider: THERESA RIVERA Exam/Review of Systems Vital Signs Vitals Vital Signs Date Time Temp Pulse Resp B/P Pulse Ox O2 Delivery O2 Flow Rate FiO2 09/25/16 10:30 62 28 104/45 100 09/25/16 10:10 30 09/25/16 07:30 98.7 09/24/16 19:00 Mechanical Ventilator Intake and Output 09/24/16 09/24/16 09/25/16 15:00 23:00 07:00 Intake Total 320 ml 738.4 ml 387.65 ml Output Total 365 ml 105 ml 85 ml Balance -45 ml 633.4 ml 302.65 ml Exam Constitutional: alert Head: normocephalic Eyes: nl conjunctiva ENMT: nl external ears & nose Neck: supple Respiratory: diminished breath sounds Cardiovascular: other (paced) Gastrointestinal: other (NG tube for feeding), soft Genitourinary - Male: nl penis Extremities: normal pulses Results Result Diagram: 09/23/16 0300 09/25/16 0400 Results 24 hrs Laboratory Tests Test 09/24/16 13:43 09/24/16 16:52 09/24/16 21:08 09/25/16 01:30 Bedside Glucose 148 156 151 126 Test 09/25/16 04:00 09/25/16 05:24 09/25/16 08:32 Sodium Level 139 Potassium Level 3.4 L Chloride Level 101 Carbon Dioxide Level 27 Anion Gap 14 Blood Urea Nitrogen 31 H Creatinine 1.60 H Glucose Level 111 Calcium Level 8.7 Bedside Glucose 125 118 Medications Medications Current Medications Apixaban (Eliquis) 2.5 mg BID PO Last administered on 09/25/16 08:38; Admin Dose 2.5 MG; Start 09/19/16 at 21:00 Ascorbic Acid (Vitamin C) 500 mg DAILY PO Last administered on 09/25/16 08:37 ; Admin Dose 500 MG; Start 09/20/16 at 09:00 Aspirin (Aspirin) 81 mg DAILY PO Last administered on 09/25/16 08:37; Admin Dose 81 MG; Start 09/20/16 at 09:00 Carvedilol (Coreg) 1.5625 mg BID PO Last administered on 09/22/16 20:47; Admin Dose 1.5625 MG; Start 09/19/16 at 21:00; Status Future Hold Digoxin (Digoxin) 0.125 mg Q2D@13 PO ; Start 09/21/16 at 13:00; Status Future Hold Pantoprazole (Protonix Iv) 40 mg BID@06,18 IV Last administered on 09/25/16 05 :16; Admin Dose 40 MG; Start 09/20/16 at 06:00 Furosemide 20 mg 20 mg DAILY@06 IV Last administered on 09/25/16 05:16; Admin Dose 20 MG; Start 09/20/16 at 06:00 Levofloxacin/ Dextrose 100 ml @ 100 mls/hr Q48H IVPB Last administered on 09/24 01:47; Admin Dose 100 MLS/HR; Start 09/19/16 at 21:00 Norepinephrine 16 mg/Dextrose 500 ml @ 1.87 mls/hr TITRATE IV Last administered on 09/25/16 06:05; Admin Dose 5.25 MLS/HR; Start 09/20/16 at 02:00 Midazolam HCl (Versed) 50 ml @ 1 mls/hr TITRATE IV Last administered on 15:03; Admin Dose 6 MLS/HR; Start 09/20/16 at 02:00 Insulin Aspart (Novolog Insulin Pen) NOVOLOG *MILD* ALGORI... Q4 SC Last administered on 09/24/16 21:16; Admin Dose 1 UNIT; Start 09/21/16 at 17:00 Miscellaneous Information 1 ea NOTE XX ; Start 09/21/16 at 14:00 Glucose (Glutose) 15 gm Q15M PRN PO DECREASED GLUCOSE; Start 09/21/16 at 14:00 Glucose (Glutose) 22.5 gm Q15M PRN PO DECREASED GLUCOSE; Start 09/21/16 at 14: 00 Dextrose (D50w Syringe) 25 ml Q15M PRN IV DECREASED GLUCOSE; Start 09/21/16 at 14:00 Dextrose (D50w Syringe) 50 ml Q15M PRN IV DECREASED GLUCOSE; Start 09/21/16 at 14:00 Glucagon (Glucagen) 1 mg Q15M PRN IM DECREASED GLUCOSE; Start 09/21/16 at 14:00 Glucose 15 gm 15 gm Q15M PRN BUCCAL DECREASED GLUCOSE; Start 09/21/16 at 14:00 Vancomycin HCl 250 ml @ 125 mls/hr Q36H IVPB Last administered on 09/25/16 08 :41; Admin Dose 125 MLS/HR; Start 09/22/16 at 08:00 Caspofungin/ Sodium Chloride (Cancidas/NS) 250 ml @ 250 mls/hr Q24H IVPB Last administered on 09/24/16 16:21; Admin Dose 250 MLS/HR; Start 09/23/16 at 15:30 ; Stop 09/26/16 at 23:00 IV Flush (NS 10 ml) 10 ml PRN PRN IV IV PROTOCOL; Start 09/22/16 at 18:30 Lorazepam (Ativan) 1 mg Q1H PRN IV AGITATION/ANXIETY Last administered on 01:34; Admin Dose 1 MG; Start 09/24/16 at 02:30 Potassium Chloride (Klor-Con 20) 20 meq DAILY PO Last administered on 08:37; Admin Dose 20 MEQ; Start 09/25/16 at 09:00 Docusate Sodium (Colace Liquid Cup) 200 mg QHS NGT Last administered on 20:57; Admin Dose 200 MG; Start 09/24/16 at 21:00 RAMONA MCCLOUD Sep 25, 2016 11:37
--- NOTE | 2016-09-25 11:48 | CONS ---
DATE OF ADMISSION: 09/19/2016 DATE OF CONSULTATION: 09/25/2016 PALLIATIVE CARE CONSULTATION All of this information is taken from the patient's medical records. HISTORY OF PRESENT ILLNESS: This is an 81-year-old gentleman who was admitted to the intensive care unit at [facility] on 09/19/2016. [facility] was [facility] broad spectrum IV antibiotic coverage, in respiratory failure. He h as been intubated since admission. During the hospitalization Dr. Blake Berkowitz had a conversation w ith the patient's son and recommended hospice care at that time. I will be reviewing her medical re cords after that and find out whether or not the patient's son was receptive to that. Other medical problems include end-stage CHF, chronic kidney disease. He has a history of cirrhosis, paroxysmal a trial fibrillation, type 2 diabetes. Once again, all of this information was taken from the patient 's medical records. He has essentially not improved during this hospital course according to medica l records. He is followed by multiple consultants. I have obtained and reviewed records from _ ____, pulmonary product consultant. Apparently this is the third intubation that this gentleman has had. I do not know what period of time that has been in. He is currently on hemodialysis. Reason for consu ltation is to establish a code status on this gentleman and have an ongoing conversation with his [facility] members. ASSESSMENT AND PLAN: I will contact family members today and try and arrange a conference with them tomorrow morning. Issues to be discussed are finding out who the decision makers are for the claye nt's ongoing level of care, their understanding of his current medical condition, and what is an acc eptable quality of life for this gentleman. I will also explore any communication issues and will e xplore this patient's past medical history and what their perceptions are of whether or not he is hamlin ffering or not at this time. Goals of care will be discussed, as well as estimated life span. I do not see any indication that this gentleman has ongoing pain at this time. I will address that with family members also and what their perception is of his current discomfort. A followup note will be tomorrow. Dictated By: MARLO WILL MD, LP/SHAHANA Conf#: [id number] [facility]#: [id number]
--- NOTE | 2016-09-25 12:25 | PN ---
Date/Time of Note Date/Time of Note DATE: 09/25/16 TIME: 12:20 Assessment/Plan VTE Prophylaxis VTE Prophylaxis Intervention: other (Eliquis) Lines/Catheters IV Catheter Type (from Nrsg): PICC Line Central line still needed: Yes Urinary Cath still in place: Yes Reason Cath still needed: urinary retention Assessment/Plan Chief Complaint/Hosp Course Assessment/Plan: 81M with: 1. 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 Endstage CHF with exacerbation - CV team consulted, AICD in place - Lasix, low dose Coreg, f/u CV rec's 3. Chronic kidney disease on hemodialysis 3 times a week limited by hypotension - f/u renal rec's, HD as tolerated per Nephro 4. Shock ?cardiogenic r/o septic on pressor support - wean as tolerated 5. Diabetes mellitus type 2 - ISS 6. Paroxysmal atrial fibrillation, rate controlled - monitor, BB, rosy 7. 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 8. Chronic liver cirrhosis with coagulopathy and mild hyperbilirubinemia and transaminitis likely associated with chronic CHF - monitor 9. Severe debility. 10. 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 11. LE cellulitis and ulcerations ? PVD Prognosis : very poor and guarded Hospitalist spoke extensively with his son and recommended hospice care a few days ago, remains full code at this time. Family conference scheduled apparently for Wednesday. Critical care time = 40 min Problems: Subjective 24 Hr Interval Summary Free Text/Dictation Pt seen by palliative team today. Exam/Review of Systems Vital Signs Vitals Vital Signs Date Time Temp Pulse Resp B/P Pulse Ox O2 Delivery O2 Flow Rate FiO2 09/25/16 12:06 60 19 100 30 09/25/16 10:30 104/45 09/25/16 07:30 98.7 09/24/16 19:00 Mechanical Ventilator Intake and Output 09/24/16 09/24/16 09/25/16 14:59 22:59 06:59 Intake Total 420 ml 733.2 ml 381.6 ml Output Total 370 ml 135 ml 85 ml Balance 50 ml 598.2 ml 296.6 ml Exam Constitutional: frail, other (intubated and sedated, comfortable on vent) Head: normocephalic Eyes: PERRL ENMT: intubated Respiratory: diminished breath sounds, No crackles/rales Cardiovascular: irregular rhythm, murmurs/extra sounds Gastrointestinal: bowel sounds, distended, soft Musculoskeletal: No nl extremities to inspection Neurological: No nl mental status Skin: rash or lesions (multiple superficial ulcers on both feet) Results Result Diagram: 09/23/16 0300 09/25/16 0400 Results 24 hrs Laboratory Tests Test 09/24/16 13:43 09/24/16 16:52 09/24/16 21:08 09/25/16 01:30 Bedside Glucose 148 156 151 126 Test 09/25/16 04:00 09/25/16 05:24 09/25/16 08:32 Sodium Level 139 Potassium Level 3.4 L Chloride Level 101 Carbon Dioxide Level 27 Anion Gap 14 Blood Urea Nitrogen 31 H Creatinine 1.60 H Glucose Level 111 Calcium Level 8.7 Bedside Glucose 125 118 Medications Medications Current Medications Apixaban (Eliquis) 2.5 mg BID PO Last administered on 09/25/16 08:38; Admin Dose 2.5 MG; Start 09/19/16 at 21:00 Ascorbic Acid (Vitamin C) 500 mg DAILY PO Last administered on 09/25/16 08:37 ; Admin Dose 500 MG; Start 09/20/16 at 09:00 Aspirin (Aspirin) 81 mg DAILY PO Last administered on 09/25/16 08:37; Admin Dose 81 MG; Start 09/20/16 at 09:00 Carvedilol (Coreg) 1.5625 mg BID PO Last administered on 09/22/16 20:47; Admin Dose 1.5625 MG; Start 09/19/16 at 21:00; Status Future Hold Digoxin (Digoxin) 0.125 mg Q2D@13 PO ; Start 09/21/16 at 13:00; Status Future Hold Pantoprazole (Protonix Iv) 40 mg BID@06,18 IV Last administered on 09/25/16 05 :16; Admin Dose 40 MG; Start 09/20/16 at 06:00 Furosemide 20 mg 20 mg DAILY@06 IV Last administered on 09/25/16 05:16; Admin Dose 20 MG; Start 09/20/16 at 06:00 Levofloxacin/ Dextrose 100 ml @ 100 mls/hr Q48H IVPB Last administered on 09/24 01:47; Admin Dose 100 MLS/HR; Start 09/19/16 at 21:00 Norepinephrine 16 mg/Dextrose 500 ml @ 1.87 mls/hr TITRATE IV Last administered on 09/25/16 06:05; Admin Dose 5.25 MLS/HR; Start 09/20/16 at 02:00 Midazolam HCl (Versed) 50 ml @ 1 mls/hr TITRATE IV Last administered on 15:03; Admin Dose 6 MLS/HR; Start 09/20/16 at 02:00 Insulin Aspart (Novolog Insulin Pen) NOVOLOG *MILD* ALGORI... Q4 SC Last administered on 09/24/16 21:16; Admin Dose 1 UNIT; Start 09/21/16 at 17:00 Miscellaneous Information 1 ea NOTE XX ; Start 09/21/16 at 14:00 Glucose (Glutose) 15 gm Q15M PRN PO DECREASED GLUCOSE; Start 09/21/16 at 14:00 Glucose (Glutose) 22.5 gm Q15M PRN PO DECREASED GLUCOSE; Start 09/21/16 at 14: 00 Dextrose (D50w Syringe) 25 ml Q15M PRN IV DECREASED GLUCOSE; Start 09/21/16 at 14:00 Dextrose (D50w Syringe) 50 ml Q15M PRN IV DECREASED GLUCOSE; Start 09/21/16 at 14:00 Glucagon (Glucagen) 1 mg Q15M PRN IM DECREASED GLUCOSE; Start 09/21/16 at 14:00 Glucose 15 gm 15 gm Q15M PRN BUCCAL DECREASED GLUCOSE; Start 09/21/16 at 14:00 Vancomycin HCl 250 ml @ 125 mls/hr Q36H IVPB Last administered on 09/25/16 08 :41; Admin Dose 125 MLS/HR; Start 09/22/16 at 08:00 Caspofungin/ Sodium Chloride (Cancidas/NS) 250 ml @ 250 mls/hr Q24H IVPB Last administered on 09/24/16 16:21; Admin Dose 250 MLS/HR; Start 09/23/16 at 15:30 ; Stop 09/26/16 at 23:00 IV Flush (NS 10 ml) 10 ml PRN PRN IV IV PROTOCOL; Start 09/22/16 at 18:30 Lorazepam (Ativan) 1 mg Q1H PRN IV AGITATION/ANXIETY Last administered on 01:34; Admin Dose 1 MG; Start 09/24/16 at 02:30 Potassium Chloride (Klor-Con 20) 20 meq DAILY PO Last administered on 08:37; Admin Dose 20 MEQ; Start 09/25/16 at 09:00 Docusate Sodium (Colace Liquid Cup) 200 mg QHS NGT Last administered on 20:57; Admin Dose 200 MG; Start 09/24/16 at 21:00 THERESA RIVERA Sep 25, 2016 12:25
--- NOTE | 2016-09-25 13:33 | CONS ---
Date/Time of Note Date/Time of Note DATE: 09/25/16 TIME: 13:26 Assessment/Plan Assessment/Plan Chief Complaint/Hosp Course IMPRESSION: 1. Hypotension/shock state, question cardiogenic versus septic unlikely as patient had a low EF with negative cardiac enzymes. Still on levo low dose 2. Congestive heart failure, systolic, acute on chronic. 3. Coronary artery disease, status post coronary artery bypass graft surgery. 4. Chronic kidney disease on hemodialysis. 5. Coagulopathy secondary to Eliquis. 6. History of paroxysmal atrial fibrillation. 7. Likely sepsis. 8. Elevated digoxin level. 9. Anemia, worsening slight Recc: -Tele -Wean levo as tolerated -Contnue asa -HD for volume removal as tolerated only with increased pressor requirement during HD -Continue abx's and f/u cx data -pnding family discussion scheduled for wednesday now Problems: Consultation Date/Type/Reason Admit Date/Time Sep 19, 2016 at 14:51 Initial Consult Date 09/23/2016 Type of Consultation: Cardiology Reason for Consultation Hotn/cardiomyopathy Referring Provider: THERESA RIVERA Exam/Review of Systems Vital Signs Vitals Vital Signs Date Time Temp Pulse Resp B/P Pulse Ox O2 Delivery O2 Flow Rate FiO2 09/25/16 13:00 60 18 97/50 100 09/25/16 12:06 30 09/25/16 12:00 97.9 09/24/16 19:00 Mechanical Ventilator Intake and Output 09/24/16 09/24/16 09/25/16 15:00 23:00 07:00 Intake Total 320 ml 738.4 ml 387.65 ml Output Total 365 ml 105 ml 85 ml Balance -45 ml 633.4 ml 302.65 ml Exam Review of Systems: CONSTITUTIONAL: No fevers, chills. PULMONARY: intubated CARDIOVASCULAR: No obvious chest pain/palpitations GASTROINTESTINAL: No nausea/vomiting. GENITOURINARY: No hematuria/dysuria. MUSCULOSKELETAL: No obvious myagias/arthalgias. PSYCHIATRIC: No documented depression. NEUROLOGIC: No focal deficits Constitutional: other (sedated but arouisable) Psych: no complaints Head: normocephalic ENMT: mucosa pink and moist Neck: jvd (9 cm water), supple Respiratory: other (upper airway rhoncherous sounds) Cardiovascular: regular rate and rhythm Gastrointestinal: non-tender, soft Musculoskeletal: muscle tone (normal) Extremities: edema (none) Neurological: other (No focal deficits) Results Result Diagram: 09/23/16 0300 09/25/16 0400 Results 24 hrs Laboratory Tests Test 09/24/16 13:43 09/24/16 16:52 09/24/16 21:08 09/25/16 01:30 Bedside Glucose 148 156 151 126 Test 09/25/16 04:00 09/25/16 05:24 09/25/16 08:32 09/25/16 13:09 Sodium Level 139 Potassium Level 3.4 L Chloride Level 101 Carbon Dioxide Level 27 Anion Gap 14 Blood Urea Nitrogen 31 H Creatinine 1.60 H Glucose Level 111 Calcium Level 8.7 Bedside Glucose 125 118 103 Medications Medications Current Medications Apixaban (Eliquis) 2.5 mg BID PO Last administered on 09/25/16 08:38; Admin Dose 2.5 MG; Start 09/19/16 at 21:00 Ascorbic Acid (Vitamin C) 500 mg DAILY PO Last administered on 09/25/16 08:37 ; Admin Dose 500 MG; Start 09/20/16 at 09:00 Aspirin (Aspirin) 81 mg DAILY PO Last administered on 09/25/16 08:37; Admin Dose 81 MG; Start 09/20/16 at 09:00 Carvedilol (Coreg) 1.5625 mg BID PO Last administered on 09/22/16 20:47; Admin Dose 1.5625 MG; Start 09/19/16 at 21:00; Status Future Hold Digoxin (Digoxin) 0.125 mg Q2D@13 PO ; Start 09/21/16 at 13:00; Status Future Hold Pantoprazole (Protonix Iv) 40 mg BID@06,18 IV Last administered on 09/25/16 05 :16; Admin Dose 40 MG; Start 09/20/16 at 06:00 Furosemide 20 mg 20 mg DAILY@06 IV Last administered on 09/25/16 05:16; Admin Dose 20 MG; Start 09/20/16 at 06:00 Levofloxacin/ Dextrose 100 ml @ 100 mls/hr Q48H IVPB Last administered on 09/24 01:47; Admin Dose 100 MLS/HR; Start 09/19/16 at 21:00 Norepinephrine 16 mg/Dextrose 500 ml @ 1.87 mls/hr TITRATE IV Last administered on 09/25/16 06:05; Admin Dose 5.25 MLS/HR; Start 09/20/16 at 02:00 Midazolam HCl (Versed) 50 ml @ 1 mls/hr TITRATE IV Last administered on 15:03; Admin Dose 6 MLS/HR; Start 09/20/16 at 02:00 Insulin Aspart (Novolog Insulin Pen) NOVOLOG *MILD* ALGORI... Q4 SC Last administered on 09/24/16 21:16; Admin Dose 1 UNIT; Start 09/21/16 at 17:00 Miscellaneous Information 1 ea NOTE XX ; Start 09/21/16 at 14:00 Glucose (Glutose) 15 gm Q15M PRN PO DECREASED GLUCOSE; Start 09/21/16 at 14:00 Glucose (Glutose) 22.5 gm Q15M PRN PO DECREASED GLUCOSE; Start 09/21/16 at 14: 00 Dextrose (D50w Syringe) 25 ml Q15M PRN IV DECREASED GLUCOSE; Start 09/21/16 at 14:00 Dextrose (D50w Syringe) 50 ml Q15M PRN IV DECREASED GLUCOSE; Start 09/21/16 at 14:00 Glucagon (Glucagen) 1 mg Q15M PRN IM DECREASED GLUCOSE; Start 09/21/16 at 14:00 Glucose 15 gm 15 gm Q15M PRN BUCCAL DECREASED GLUCOSE; Start 09/21/16 at 14:00 Vancomycin HCl 250 ml @ 125 mls/hr Q36H IVPB Last administered on 09/25/16 08 :41; Admin Dose 125 MLS/HR; Start 09/22/16 at 08:00 Caspofungin/ Sodium Chloride (Cancidas/NS) 250 ml @ 250 mls/hr Q24H IVPB Last administered on 09/24/16 16:21; Admin Dose 250 MLS/HR; Start 09/23/16 at 15:30 ; Stop 09/26/16 at 23:00 IV Flush (NS 10 ml) 10 ml PRN PRN IV IV PROTOCOL; Start 09/22/16 at 18:30 Lorazepam (Ativan) 1 mg Q1H PRN IV AGITATION/ANXIETY Last administered on 01:34; Admin Dose 1 MG; Start 09/24/16 at 02:30 Potassium Chloride (Klor-Con 20) 20 meq DAILY PO Last administered on 08:37; Admin Dose 20 MEQ; Start 09/25/16 at 09:00 Docusate Sodium (Colace Liquid Cup) 200 mg QHS NGT Last administered on 20:57; Admin Dose 200 MG; Start 09/24/16 at 21:00 POLI SAN Sep 25, 2016 13:33
--- NOTE | 2016-09-25 15:19 | CONS ---
Date/Time of Note Date/Time of Note DATE: 09/25/16 TIME: 15:15 Assessment/Plan Assessment/Plan Chief Complaint/Hosp Course ID PROGRESS NOTE TOTAL ABX DAY # 7 => Vanco IV + Levaquin + Cancidas #4 s/p Merrem 09/19 x1 24H INTERVAL SUMMARY * Clinically no new issues -- muti-organ failure, obtunded, remains on aggressive life support per family * Plan is for Trach/ Peg family wishes to discuss amongst themselves and will give feedback on Wednesday PHYSICAL EXAMINATION: GENERAL: 81 yo M orally intubated on the Vent HEENT: (+)Jaundice, (+)Icteric, NGT-> Secure, ETT-> secure to Vent NECK: IJ HD catheter CHEST: Rise symmetrical, rhonchi HEART: RRR (+)RA ABDOMEN: Distended, firmm hepatomegaly EXTREMITIES: Warm Decubs bilateral feet SKIN: ID ASSESSMENT: 81 yo M w/multi-organ system failure admitted from HD unit with: 1. Shock -> cardiogenic + septic + liver etiologies suspected 2. Severe sepsis with lactic acidosis secondary to HCAP and UTI * History of recurrent/recent BLL HCAP * Yeast UTI URINE CULTURE Final -> FC was changed due to yeast Organism 1 FUNMILAYO ALBICANS COLONY COUNT 50,000 - 60,000 CFU/ml 3. Acute hypoxic respiratory failure -> intubated in the emergency room. 4. Acute CHF exacerbation w/progressive end-stage congestive heart failure. * Coronary artery disease with severe ischemic cardiomyopathy -> Hx of CABG, ICD placement. 5. Paroxysmal atrial fibrillation. 6. Chronic renal disease on hemodialysis, end-stage renal disease. 7. Adult-onset diabetes mellitus. 8. BLEXT Diabetic, ischemic, new ulcers and cellulitis both feet. 9. 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 10. Chronic cirrhosis of the liver with coagulopathy, mild hyperbilirubinemia and transaminitis. 11. 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 12. Severe debility. (-)MRSA Nares INVASIVES: * PIV, ETT, NGT, R-IJ HD catheter, ICD CURRENT ABX: TOTAL ABX DAY # 7 => Vanco IV + Levaquin + Cancidas #4 s/p Merrem 09/19 x1 ID RECOMMENDATIONS: => 81 yo M w/multi-organ system failure end-stage renal, end-stage cardiomyopathy, liver failure w/hypoglycemia, acute respiratory failure-> doubt ABX with reverse the poor prognosis. * Clinically no new issues -- muti-organ failure, obtunded, remains on aggressive life support per family * Plan is for Trach/ Peg family wishes to discuss amongst themselves and will give feedback on Wednesday * Continue current ABX + add antifungal for yeast UTI = Cancidas (Diflucan deferred due to drug-drug interactions) * Critically ill with multi-organ failure patient is palliative/hospice care appropriate; nevertheless he remains on aggressive medical plan of care. . . Problems: Consultation Date/Type/Reason Admit Date/Time Sep 19, 2016 at 14:51 Type of Consultation: ID Referring Provider: THERESA RIVERA Exam/Review of Systems Vital Signs Vitals Vital Signs Date Time Temp Pulse Resp B/P Pulse Ox O2 Delivery O2 Flow Rate FiO2 09/25/16 14:15 60 24 100 30 09/25/16 13:00 97/50 09/25/16 12:00 97.9 09/24/16 19:00 Mechanical Ventilator Intake and Output 09/24/16 09/24/16 09/25/16 15:00 23:00 07:00 Intake Total 320 ml 738.4 ml 387.65 ml Output Total 365 ml 105 ml 85 ml Balance -45 ml 633.4 ml 302.65 ml Results Result Diagram: 09/23/16 0300 09/25/16 0400 Results 24 hrs Laboratory Tests Test 09/24/16 16:52 09/24/16 21:08 09/25/16 01:30 09/25/16 04:00 Bedside Glucose 156 151 126 Sodium Level 139 Potassium Level 3.4 L Chloride Level 101 Carbon Dioxide Level 27 Anion Gap 14 Blood Urea Nitrogen 31 H Creatinine 1.60 H Glucose Level 111 Calcium Level 8.7 Test 09/25/16 05:24 09/25/16 08:32 09/25/16 13:09 Bedside Glucose 125 118 103 Medications Medications Current Medications Apixaban (Eliquis) 2.5 mg BID PO Last administered on 09/25/16 08:38; Admin Dose 2.5 MG; Start 09/19/16 at 21:00 Ascorbic Acid (Vitamin C) 500 mg DAILY PO Last administered on 09/25/16 08:37 ; Admin Dose 500 MG; Start 09/20/16 at 09:00 Aspirin (Aspirin) 81 mg DAILY PO Last administered on 09/25/16 08:37; Admin Dose 81 MG; Start 09/20/16 at 09:00 Carvedilol (Coreg) 1.5625 mg BID PO Last administered on 09/22/16 20:47; Admin Dose 1.5625 MG; Start 09/19/16 at 21:00; Status Future Hold Digoxin (Digoxin) 0.125 mg Q2D@13 PO ; Start 09/21/16 at 13:00; Status Future Hold Pantoprazole (Protonix Iv) 40 mg BID@06,18 IV Last administered on 09/25/16 05 :16; Admin Dose 40 MG; Start 09/20/16 at 06:00 Furosemide 20 mg 20 mg DAILY@06 IV Last administered on 09/25/16 05:16; Admin Dose 20 MG; Start 09/20/16 at 06:00 Levofloxacin/ Dextrose 100 ml @ 100 mls/hr Q48H IVPB Last administered on 09/24 01:47; Admin Dose 100 MLS/HR; Start 09/19/16 at 21:00 Norepinephrine 16 mg/Dextrose 500 ml @ 1.87 mls/hr TITRATE IV Last administered on 09/25/16 06:05; Admin Dose 5.25 MLS/HR; Start 09/20/16 at 02:00 Midazolam HCl (Versed) 50 ml @ 1 mls/hr TITRATE IV Last administered on 15:03; Admin Dose 6 MLS/HR; Start 09/20/16 at 02:00 Insulin Aspart (Novolog Insulin Pen) NOVOLOG *MILD* ALGORI... Q4 SC Last administered on 09/24/16 21:16; Admin Dose 1 UNIT; Start 09/21/16 at 17:00 Miscellaneous Information 1 ea NOTE XX ; Start 09/21/16 at 14:00 Glucose (Glutose) 15 gm Q15M PRN PO DECREASED GLUCOSE; Start 09/21/16 at 14:00 Glucose (Glutose) 22.5 gm Q15M PRN PO DECREASED GLUCOSE; Start 09/21/16 at 14: 00 Dextrose (D50w Syringe) 25 ml Q15M PRN IV DECREASED GLUCOSE; Start 09/21/16 at 14:00 Dextrose (D50w Syringe) 50 ml Q15M PRN IV DECREASED GLUCOSE; Start 09/21/16 at 14:00 Glucagon (Glucagen) 1 mg Q15M PRN IM DECREASED GLUCOSE; Start 09/21/16 at 14:00 Glucose 15 gm 15 gm Q15M PRN BUCCAL DECREASED GLUCOSE; Start 09/21/16 at 14:00 Vancomycin HCl 250 ml @ 125 mls/hr Q36H IVPB Last administered on 09/25/16 08 :41; Admin Dose 125 MLS/HR; Start 09/22/16 at 08:00 Caspofungin/ Sodium Chloride (Cancidas/NS) 250 ml @ 250 mls/hr Q24H IVPB Last administered on 09/24/16 16:21; Admin Dose 250 MLS/HR; Start 09/23/16 at 15:30 ; Stop 09/26/16 at 23:00 IV Flush (NS 10 ml) 10 ml PRN PRN IV IV PROTOCOL; Start 09/22/16 at 18:30 Lorazepam (Ativan) 1 mg Q1H PRN IV AGITATION/ANXIETY Last administered on 01:34; Admin Dose 1 MG; Start 09/24/16 at 02:30 Potassium Chloride (Klor-Con 20) 20 meq DAILY PO Last administered on 08:37; Admin Dose 20 MEQ; Start 09/25/16 at 09:00 Docusate Sodium (Colace Liquid Cup) 200 mg QHS NGT Last administered on 20:57; Admin Dose 200 MG; Start 09/24/16 at 21:00 NAEL COY NP Sep 25, 2016 15:19
[2016-09-25] MEDS: CASPOFUNGIN 50 MG in SOD CHLORIDE 0.9% 250 ML IVPB SCH (15:52)
[2016-09-25] MEDS: LEVOFLOXACIN 500MG/D5W (PMX) 100 ML IVPB SCH (21:30)
[2016-09-25] MEDS: DOCUSATE SODIUM 10 MG/ML (10ML CUP) NGT SCH (22:01)
[2016-09-26] VITALS (105 sets, daily range): BP systolic 72–147; BP diastolic 34–88; PULSE 60–80; RESP 8–28
[2016-09-26] MEDS: INSULIN ASPART [NOVOLOG] 3 ML PEN SC SCH ×6 (01:00→21:00)
[2016-09-26] MEDS: LORAZEPAM 2 MG INJ IV PRN ×3 (03:42→23:56)
[2016-09-26 05:28] LABS: ADD SCAN DIFF NO
[2016-09-26 05:57] LABS: ABNORMAL IP MESSAGE 1; EOSINOPHILS # 0.1 10^3/ul (0.0-0.5); HEMATOCRIT 22.6 % (42.0-52.0); LYMPHOCYTES # 0.8 10^3/ul (0.8-2.9); LYMPHOCYTES % 11.5 % (15.0-51.0); MEAN CORPUSCULAR HEMOGLOBIN 25.4 pg (29.0-33.0); MEAN CORPUSCULAR HGB CONC 29.6 g/dl (32.0-37.0); MEAN CORPUSCULAR VOLUME 85.6 fl (82.0-101.0); MEAN PLATELET VOLUME 12.5 fl (7.4-10.4); MONOCYTE # 0.4 10^3/ul (0.3-0.9); MONOCYTES % 5.5 % (0.0-11.0); NEUTROPHIL # 5.6 10^3/ul (1.6-7.5); NEUTROPHILS % 80.7 % (39.0-77.0); NUCLEATED RED BLOOD CELLS% 0.3 /100WBC (0.0-0.0); PLATELET COUNT 102 10^3/UL (140-415); RED BLOOD COUNT 2.64 10^6/ul (4.70-6.10); RED CELL DISTRIBUTION WIDTH 23.4 % (11.5-14.5); WHITE BLOOD COUNT 6.9 10^3/ul (4.8-10.8)
[2016-09-26] MEDS: PANTOPRAZOLE 40 MG INJ IV SCH ×2 (05:59→19:34)
[2016-09-26] MEDS: FUROSEMIDE 20 MG INJ IV SCH (06:00)
[2016-09-26 06:05] LABS: HEMOGLOBIN 6.7 g/dl (14.0-18.0)
[2016-09-26 06:06] LABS: CALCIUM 8.5 mg/dl (8.4-10.2); CREATININE 1.36 mg/dl (0.61-1.24)
[2016-09-26] MEDS ORDERED: SOD CHLORIDE 0.9% 250 ML IV* ONE (06:22)
[2016-09-26 06:31] LABS: POTASSIUM 2.8 mmol/L (3.5-5.1)
[2016-09-26] MEDS: POTASSIUM CHLORIDE 50 ML IVPB SCH ×2 (07:08→09:14)
[2016-09-26] MEDS: APIXABAN 5 MG TABLET PO SCH ×2 (08:33→21:00)
[2016-09-26] MEDS: ASPIRIN 81 MG TAB PO SCH (08:33)
[2016-09-26] MEDS: ASCORBIC ACID 500 MG TAB PO SCH (08:33)
--- NOTE | 2016-09-26 08:50 | PN ---
Date/Time of Note Date/Time of Note DATE: 09/26/16 TIME: 08:45 Assessment/Plan VTE Prophylaxis VTE Prophylaxis Intervention: other (Eliquis) Lines/Catheters IV Catheter Type (from Nrsg): PICC Line Central line still needed: Yes Urinary Cath still in place: Yes Reason Cath still needed: urinary retention Assessment/Plan Chief Complaint/Hosp Course Assessment/Plan: 81M with: 1. 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 Endstage CHF with exacerbation - CV team consulted, AICD in place - Lasix, low dose Coreg, f/u CV rec's 3. Chronic kidney disease on hemodialysis 3 times a week limited by hypotension - f/u renal rec's, HD as tolerated per Nephro 4. Shock ?cardiogenic r/o septic on pressor support - wean as tolerated 5. Diabetes mellitus type 2 - ISS 6. Paroxysmal atrial fibrillation, rate controlled - monitor, BBrosy 7. 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 8. Chronic liver cirrhosis with coagulopathy and mild hyperbilirubinemia and transaminitis likely associated with chronic CHF - monitor 9. Severe debility. 10. 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 11. LE cellulitis and ulcerations ? PVD Prognosis : very poor and guarded Hospitalist spoke extensively with his son and recommended hospice care a few days ago, remains full code at this time. Family conference scheduled apparently for Wednesday. Critical care time = 40 min Problems: Subjective 24 Hr Interval Summary Free Text/Dictation Pt still intubated, on pressor. Exam/Review of Systems Vital Signs Vitals Vital Signs Date Time Temp Pulse Resp B/P Pulse Ox O2 Delivery O2 Flow Rate FiO2 09/26/16 07:35 60 26 100 30 09/26/16 07:15 102/50 09/26/16 02:45 97.7 09/24/16 19:00 Mechanical Ventilator Intake and Output 09/25/16 09/25/16 09/26/16 15:00 23:00 07:00 Intake Total 799.494 ml 591.25 ml 265.62 ml Output Total 4832 ml 80 ml 30 ml Balance -4032.506 ml 511.25 ml 235.62 ml Exam Constitutional: frail, other (intubated and sedated, comfortable on vent) Head: normocephalic Eyes: PERRL ENMT: intubated Respiratory: diminished breath sounds, No crackles/rales Cardiovascular: irregular rhythm, murmurs/extra sounds Gastrointestinal: bowel sounds, distended, soft Musculoskeletal: No nl extremities to inspection Neurological: No nl mental status Skin: rash or lesions (multiple superficial ulcers on both feet) Results Result Diagram: 09/26/16 0450 09/26/16 0450 Results 24 hrs Laboratory Tests Test 09/25/16 13:09 09/25/16 17:01 09/25/16 21:47 09/26/16 02:27 Bedside Glucose 103 117 87 116 Test 09/26/16 04:50 09/26/16 05:57 White Blood Count 6.9 # Red Blood Count 2.64 L Hemoglobin 6.7 *L Hematocrit 22.6 L Mean Corpuscular Volume 85.6 Mean Corpuscular Hemoglobin 25.4 L Mean Corpuscular Hemoglobin Concent 29.6 L Red Cell Distribution Width 23.4 H Platelet Count 102 L Mean Platelet Volume 12.5 H Neutrophils % 80.7 H Lymphocytes % 11.5 L Monocytes % 5.5 Eosinophils % 2.0 Basophils % 0.0 Nucleated Red Blood Cells % 0.3 H Neutrophils # 5.6 Lymphocytes # 0.8 Monocytes # 0.4 Eosinophils # 0.1 Basophils # 0.0 Nucleated Red Blood Cells # 0.0 Sodium Level 145 H Potassium Level 2.8 *L Chloride Level 105 Carbon Dioxide Level 31 Anion Gap 12 Blood Urea Nitrogen 26 H Creatinine 1.36 H Glucose Level 103 Calcium Level 8.5 Bedside Glucose 75 Medications Medications Current Medications Apixaban (Eliquis) 2.5 mg BID PO Last administered on 09/26/16 08:33; Admin Dose 2.5 MG; Start 09/19/16 at 21:00 Ascorbic Acid (Vitamin C) 500 mg DAILY PO Last administered on 09/26/16 08:33 ; Admin Dose 500 MG; Start 09/20/16 at 09:00 Aspirin (Aspirin) 81 mg DAILY PO Last administered on 09/26/16 08:33; Admin Dose 81 MG; Start 09/20/16 at 09:00 Carvedilol (Coreg) 1.5625 mg BID PO Last administered on 09/22/16 20:47; Admin Dose 1.5625 MG; Start 09/19/16 at 21:00; Status Future Hold Digoxin (Digoxin) 0.125 mg Q2D@13 PO ; Start 09/21/16 at 13:00; Status Future Hold Pantoprazole (Protonix Iv) 40 mg BID@06,18 IV Last administered on 09/26/16 05 :59; Admin Dose 40 MG; Start 09/20/16 at 06:00 Furosemide 20 mg 20 mg DAILY@06 IV Last administered on 09/25/16 05:16; Admin Dose 20 MG; Start 09/20/16 at 06:00 Levofloxacin/ Dextrose 100 ml @ 100 mls/hr Q48H IVPB Last administered on 09/25 21:30; Admin Dose 100 MLS/HR; Start 09/19/16 at 21:00 Norepinephrine 16 mg/Dextrose 500 ml @ 1.87 mls/hr TITRATE IV Last administered on 09/26/16 04:40; Admin Dose 5.62 MLS/HR; Start 09/20/16 at 02:00 Midazolam HCl (Versed) 50 ml @ 1 mls/hr TITRATE IV Last administered on 15:03; Admin Dose 6 MLS/HR; Start 09/20/16 at 02:00 Insulin Aspart (Novolog Insulin Pen) NOVOLOG *MILD* ALGORI... Q4 SC Last administered on 09/24/16 21:16; Admin Dose 1 UNIT; Start 09/21/16 at 17:00 Miscellaneous Information 1 ea NOTE XX ; Start 09/21/16 at 14:00 Glucose (Glutose) 15 gm Q15M PRN PO DECREASED GLUCOSE; Start 09/21/16 at 14:00 Glucose (Glutose) 22.5 gm Q15M PRN PO DECREASED GLUCOSE; Start 09/21/16 at 14: 00 Dextrose (D50w Syringe) 25 ml Q15M PRN IV DECREASED GLUCOSE; Start 09/21/16 at 14:00 Dextrose (D50w Syringe) 50 ml Q15M PRN IV DECREASED GLUCOSE; Start 09/21/16 at 14:00 Glucagon (Glucagen) 1 mg Q15M PRN IM DECREASED GLUCOSE; Start 09/21/16 at 14:00 Glucose 15 gm 15 gm Q15M PRN BUCCAL DECREASED GLUCOSE; Start 09/21/16 at 14:00 Vancomycin HCl 250 ml @ 125 mls/hr Q36H IVPB Last administered on 09/25/16 08 :41; Admin Dose 125 MLS/HR; Start 09/22/16 at 08:00 Caspofungin/ Sodium Chloride (Cancidas/NS) 250 ml @ 250 mls/hr Q24H IVPB Last administered on 09/25/16 15:52; Admin Dose 250 MLS/HR; Start 09/23/16 at 15:30 ; Stop 09/26/16 at 23:00 IV Flush (NS 10 ml) 10 ml PRN PRN IV IV PROTOCOL; Start 09/22/16 at 18:30 Lorazepam (Ativan) 1 mg Q1H PRN IV AGITATION/ANXIETY Last administered on 03:42; Admin Dose 1 MG; Start 09/24/16 at 02:30 Potassium Chloride (Klor-Con 20) 20 meq DAILY PO Last administered on 08:37; Admin Dose 20 MEQ; Start 09/25/16 at 09:00 Docusate Sodium (Colace Liquid Cup) 200 mg QHS NGT Last administered on 22:01; Admin Dose 100 MG; Start 09/24/16 at 21:00 Miscellaneous Information VANCO TR LEVEL PRIOR... ONCE ONCE XX ; Start at 19:00; Stop 09/26/16 at 19:01 Potassium Chloride (KCl 20 MEQ/50 ML SW) 50 ml @ 25 mls/hr Q2H IVPB Last administered on 09/26/16 07:08; Admin Dose 25 MLS/HR; Start 09/26/16 at 07:00; Stop 09/26/16 at 10:59 THERESA RIVERA Sep 26, 2016 08:50
[2016-09-26] MEDS: POTASSIUM CHLORIDE (SR) 20 MEQ TAB PO SCH (08:51)
--- NOTE | 2016-09-26 09:06 | CONS ---
Date/Time of Note Date/Time of Note DATE: 09/26/16 TIME: 09:03 Assessment/Plan Assessment/Plan Additional Assessment/Plan Ventilator settings; AC of 16, tidal volume 500, PEEP of 5, 50% FiO2. Patient is on Levophed at 3 mics per minute. Assessment recommendations; next 1. Patient admitted for recurrent respiratory failure due to flash pulmonary edema from underlying cardiomyopathy. 2. History of cardiac arrhythmia. 3. Sepsis. 4. Atrial fibrillation. 5. End-stage renal disease, hemodialysis. 6. History of coronary artery disease, status post CABG in the remote past. 7. Mild hypotension, still requiring pressor support. Continue current treatment. I have had multiple discussions with the patient's son regarding need for tracheostomy, the family still not sure how to proceed. Overall prognosis remains guarded on account of multiple comorbidities. Consultation Date/Type/Reason Admit Date/Time Sep 19, 2016 at 14:51 Type of Consultation: Pulmonary/critical care Referring Provider: THERESA RIVERA 24 HR Interval Summary Free Text/Dictation Patient condition remains critical however patient remains completely awake alert and not requiring any pressor support. General exam; elderly male, orally intubated, awake and alert. Exam/Review of Systems Vital Signs Vitals Vital Signs Date Time Temp Pulse Resp B/P Pulse Ox O2 Delivery O2 Flow Rate FiO2 09/26/16 07:35 60 26 100 30 09/26/16 07:15 102/50 09/26/16 02:45 97.7 09/24/16 19:00 Mechanical Ventilator Intake and Output 09/25/16 09/25/16 09/26/16 15:00 23:00 07:00 Intake Total 799.494 ml 591.25 ml 265.62 ml Output Total 4832 ml 80 ml 30 ml Balance -4032.506 ml 511.25 ml 235.62 ml Exam HEENT exam is; supple neck, positive JVD. No lymphadenopathy. Midline trachea. No thyromegaly. Orally intubated. Has bilateral cataracts. There are a few remaining teeth. Chest examination; diminished but clear vessel. S1-S2 audible, no murmurs. There is a well-healed sternal scar. There is a pacemaker in left chest wall. Abdomen examination; soft, no organomegaly. Bowel sounds audible. Nontender. Extremity examination; no peripheral edema. MARKETING TECHNOLOGIST examination; patient is awake, follows simple commands and moves all 4 extremities. Results Result Diagram: 09/26/16 0450 09/26/16 0450 Results 24 hrs Laboratory Tests Test 09/25/16 13:09 09/25/16 17:01 09/25/16 21:47 09/26/16 02:27 Bedside Glucose 103 117 87 116 Test 09/26/16 04:50 09/26/16 05:57 White Blood Count 6.9 # Red Blood Count 2.64 L Hemoglobin 6.7 *L Hematocrit 22.6 L Mean Corpuscular Volume 85.6 Mean Corpuscular Hemoglobin 25.4 L Mean Corpuscular Hemoglobin Concent 29.6 L Red Cell Distribution Width 23.4 H Platelet Count 102 L Mean Platelet Volume 12.5 H Neutrophils % 80.7 H Lymphocytes % 11.5 L Monocytes % 5.5 Eosinophils % 2.0 Basophils % 0.0 Nucleated Red Blood Cells % 0.3 H Neutrophils # 5.6 Lymphocytes # 0.8 Monocytes # 0.4 Eosinophils # 0.1 Basophils # 0.0 Nucleated Red Blood Cells # 0.0 Sodium Level 145 H Potassium Level 2.8 *L Chloride Level 105 Carbon Dioxide Level 31 Anion Gap 12 Blood Urea Nitrogen 26 H Creatinine 1.36 H Glucose Level 103 Calcium Level 8.5 Bedside Glucose 75 Medications Medications Current Medications Apixaban (Eliquis) 2.5 mg BID PO Last administered on 09/26/16 08:33; Admin Dose 2.5 MG; Start 09/19/16 at 21:00 Ascorbic Acid (Vitamin C) 500 mg DAILY PO Last administered on 09/26/16 08:33 ; Admin Dose 500 MG; Start 09/20/16 at 09:00 Aspirin (Aspirin) 81 mg DAILY PO Last administered on 09/26/16 08:33; Admin Dose 81 MG; Start 09/20/16 at 09:00 Carvedilol (Coreg) 1.5625 mg BID PO Last administered on 09/22/16 20:47; Admin Dose 1.5625 MG; Start 09/19/16 at 21:00; Status Future Hold Digoxin (Digoxin) 0.125 mg Q2D@13 PO ; Start 09/21/16 at 13:00; Status Future Hold Pantoprazole (Protonix Iv) 40 mg BID@06,18 IV Last administered on 09/26/16 05 :59; Admin Dose 40 MG; Start 09/20/16 at 06:00 Furosemide 20 mg 20 mg DAILY@06 IV Last administered on 09/25/16 05:16; Admin Dose 20 MG; Start 09/20/16 at 06:00 Levofloxacin/ Dextrose 100 ml @ 100 mls/hr Q48H IVPB Last administered on 09/25 21:30; Admin Dose 100 MLS/HR; Start 09/19/16 at 21:00 Norepinephrine 16 mg/Dextrose 500 ml @ 1.87 mls/hr TITRATE IV Last administered on 09/26/16 04:40; Admin Dose 5.62 MLS/HR; Start 09/20/16 at 02:00 Midazolam HCl (Versed) 50 ml @ 1 mls/hr TITRATE IV Last administered on 15:03; Admin Dose 6 MLS/HR; Start 09/20/16 at 02:00 Insulin Aspart (Novolog Insulin Pen) NOVOLOG *MILD* ALGORI... Q4 SC Last administered on 09/24/16 21:16; Admin Dose 1 UNIT; Start 09/21/16 at 17:00 Miscellaneous Information 1 ea NOTE XX ; Start 09/21/16 at 14:00 Glucose (Glutose) 15 gm Q15M PRN PO DECREASED GLUCOSE; Start 09/21/16 at 14:00 Glucose (Glutose) 22.5 gm Q15M PRN PO DECREASED GLUCOSE; Start 09/21/16 at 14: 00 Dextrose (D50w Syringe) 25 ml Q15M PRN IV DECREASED GLUCOSE; Start 09/21/16 at 14:00 Dextrose (D50w Syringe) 50 ml Q15M PRN IV DECREASED GLUCOSE; Start 09/21/16 at 14:00 Glucagon (Glucagen) 1 mg Q15M PRN IM DECREASED GLUCOSE; Start 09/21/16 at 14:00 Glucose 15 gm 15 gm Q15M PRN BUCCAL DECREASED GLUCOSE; Start 09/21/16 at 14:00 Vancomycin HCl 250 ml @ 125 mls/hr Q36H IVPB Last administered on 09/25/16 08 :41; Admin Dose 125 MLS/HR; Start 09/22/16 at 08:00 Caspofungin/ Sodium Chloride (Cancidas/NS) 250 ml @ 250 mls/hr Q24H IVPB Last administered on 09/25/16 15:52; Admin Dose 250 MLS/HR; Start 09/23/16 at 15:30 ; Stop 09/26/16 at 23:00 IV Flush (NS 10 ml) 10 ml PRN PRN IV IV PROTOCOL; Start 09/22/16 at 18:30 Lorazepam (Ativan) 1 mg Q1H PRN IV AGITATION/ANXIETY Last administered on 03:42; Admin Dose 1 MG; Start 09/24/16 at 02:30 Potassium Chloride (Klor-Con 20) 20 meq DAILY PO Last administered on 08:37; Admin Dose 20 MEQ; Start 09/25/16 at 09:00 Docusate Sodium (Colace Liquid Cup) 200 mg QHS NGT Last administered on 22:01; Admin Dose 100 MG; Start 09/24/16 at 21:00 Miscellaneous Information VANCO TR LEVEL PRIOR... ONCE ONCE XX ; Start at 19:00; Stop 09/26/16 at 19:01 Potassium Chloride (KCl 20 MEQ/50 ML SW) 50 ml @ 25 mls/hr Q2H IVPB Last administered on 09/26/16 07:08; Admin Dose 25 MLS/HR; Start 09/26/16 at 07:00; Stop 09/26/16 at 10:59 ADAMARIS RAMIREZ Sep 26, 2016 09:06
--- NOTE | 2016-09-26 11:26 | CONS ---
Date/Time of Note Date/Time of Note DATE: 09/26/16 TIME: 11:23 Assessment/Plan Assessment/Plan Chief Complaint/Hosp Course 1. Renal failure, HD dependent, HD today 2. Potassium was replaced 3. Blood transfusion in progress Problems: Additional Assessment/Plan 1. HD tomorrow 2. Blood transfusion in progress 3. Continue tube feeding 4. Potassium was replaced Consultation Date/Type/Reason Admit Date/Time Sep 19, 2016 at 14:51 Initial Consult Date 09/19/2016 Type of Consultation: Nephrology Reason for Consultation Dr Lamar Referring Provider: THERESA RIVERA 24 HR Interval Summary Subjective hx not possible: pt non-verbal Exam/Review of Systems Vital Signs Vitals Vital Signs Date Time Temp Pulse Resp B/P Pulse Ox O2 Delivery O2 Flow Rate FiO2 09/26/16 10:15 61 18 92/68 100 09/26/16 08:00 30 09/26/16 07:30 98.1 09/24/16 19:00 Mechanical Ventilator Intake and Output 09/25/16 09/25/16 09/26/16 15:00 23:00 07:00 Intake Total 799.494 ml 591.25 ml 295.62 ml Output Total 4832 ml 80 ml 30 ml Balance -4032.506 ml 511.25 ml 265.62 ml Exam Constitutional: alert, other (lethargic) Head: normocephalic Eyes: nl conjunctiva ENMT: intubated, other (NG tube) Neck: supple Respiratory: clear to auscultation Cardiovascular: other (paced), regular rate and rhythm Gastrointestinal: soft Genitourinary - Male: nl penis, other (cohen cath) Musculoskeletal: nl extremities to inspection Results Result Diagram: 09/26/16 0450 09/26/16 0450 Results 24 hrs Laboratory Tests Test 09/25/16 13:09 09/25/16 17:01 09/25/16 21:47 09/26/16 02:27 Bedside Glucose 103 117 87 116 Test 09/26/16 04:50 09/26/16 05:57 09/26/16 09:18 White Blood Count 6.9 # Red Blood Count 2.64 L Hemoglobin 6.7 *L Hematocrit 22.6 L Mean Corpuscular Volume 85.6 Mean Corpuscular Hemoglobin 25.4 L Mean Corpuscular Hemoglobin Concent 29.6 L Red Cell Distribution Width 23.4 H Platelet Count 102 L Mean Platelet Volume 12.5 H Neutrophils % 80.7 H Lymphocytes % 11.5 L Monocytes % 5.5 Eosinophils % 2.0 Basophils % 0.0 Nucleated Red Blood Cells % 0.3 H Neutrophils # 5.6 Lymphocytes # 0.8 Monocytes # 0.4 Eosinophils # 0.1 Basophils # 0.0 Nucleated Red Blood Cells # 0.0 Sodium Level 145 H Potassium Level 2.8 *L Chloride Level 105 Carbon Dioxide Level 31 Anion Gap 12 Blood Urea Nitrogen 26 H Creatinine 1.36 H Glucose Level 103 Calcium Level 8.5 Bedside Glucose 75 115 Medications Medications Current Medications Apixaban (Eliquis) 2.5 mg BID PO Last administered on 09/26/16 08:33; Admin Dose 2.5 MG; Start 09/19/16 at 21:00 Ascorbic Acid (Vitamin C) 500 mg DAILY PO Last administered on 09/26/16 08:33 ; Admin Dose 500 MG; Start 09/20/16 at 09:00 Aspirin (Aspirin) 81 mg DAILY PO Last administered on 09/26/16 08:33; Admin Dose 81 MG; Start 09/20/16 at 09:00 Carvedilol (Coreg) 1.5625 mg BID PO Last administered on 09/22/16 20:47; Admin Dose 1.5625 MG; Start 09/19/16 at 21:00; Status Future Hold Digoxin (Digoxin) 0.125 mg Q2D@13 PO ; Start 09/21/16 at 13:00; Status Future Hold Pantoprazole (Protonix Iv) 40 mg BID@06,18 IV Last administered on 09/26/16 05 :59; Admin Dose 40 MG; Start 09/20/16 at 06:00 Furosemide 20 mg 20 mg DAILY@06 IV Last administered on 09/25/16 05:16; Admin Dose 20 MG; Start 09/20/16 at 06:00 Levofloxacin/ Dextrose 100 ml @ 100 mls/hr Q48H IVPB Last administered on 09/25 21:30; Admin Dose 100 MLS/HR; Start 09/19/16 at 21:00 Norepinephrine 16 mg/Dextrose 500 ml @ 1.87 mls/hr TITRATE IV Last administered on 09/26/16 04:40; Admin Dose 5.62 MLS/HR; Start 09/20/16 at 02:00 Midazolam HCl (Versed) 50 ml @ 1 mls/hr TITRATE IV Last administered on 15:03; Admin Dose 6 MLS/HR; Start 09/20/16 at 02:00 Insulin Aspart (Novolog Insulin Pen) NOVOLOG *MILD* ALGORI... Q4 SC Last administered on 09/24/16 21:16; Admin Dose 1 UNIT; Start 09/21/16 at 17:00 Miscellaneous Information 1 ea NOTE XX ; Start 09/21/16 at 14:00 Glucose (Glutose) 15 gm Q15M PRN PO DECREASED GLUCOSE; Start 09/21/16 at 14:00 Glucose (Glutose) 22.5 gm Q15M PRN PO DECREASED GLUCOSE; Start 09/21/16 at 14: 00 Dextrose (D50w Syringe) 25 ml Q15M PRN IV DECREASED GLUCOSE; Start 09/21/16 at 14:00 Dextrose (D50w Syringe) 50 ml Q15M PRN IV DECREASED GLUCOSE; Start 09/21/16 at 14:00 Glucagon (Glucagen) 1 mg Q15M PRN IM DECREASED GLUCOSE; Start 09/21/16 at 14:00 Glucose 15 gm 15 gm Q15M PRN BUCCAL DECREASED GLUCOSE; Start 09/21/16 at 14:00 Vancomycin HCl 250 ml @ 125 mls/hr Q36H IVPB Last administered on 09/25/16 08 :41; Admin Dose 125 MLS/HR; Start 09/22/16 at 08:00 Caspofungin/ Sodium Chloride (Cancidas/NS) 250 ml @ 250 mls/hr Q24H IVPB Last administered on 09/25/16 15:52; Admin Dose 250 MLS/HR; Start 09/23/16 at 15:30 ; Stop 09/26/16 at 23:00 IV Flush (NS 10 ml) 10 ml PRN PRN IV IV PROTOCOL; Start 09/22/16 at 18:30 Lorazepam (Ativan) 1 mg Q1H PRN IV AGITATION/ANXIETY Last administered on 03:42; Admin Dose 1 MG; Start 09/24/16 at 02:30 Potassium Chloride (Klor-Con 20) 20 meq DAILY PO Last administered on 08:37; Admin Dose 20 MEQ; Start 09/25/16 at 09:00 Docusate Sodium (Colace Liquid Cup) 200 mg QHS NGT Last administered on 22:01; Admin Dose 100 MG; Start 09/24/16 at 21:00 Miscellaneous Information (*Rx Drug Level Order Reminder*) VANCO TR LEVEL PRIOR... ONCE ONCE XX ; Start 09/26/16 at 19:00; Stop 09/26/16 at 19:01 RAMONA MCCLOUD Sep 26, 2016 11:26
--- NOTE | 2016-09-26 12:02 | CONS ---
Date/Time of Note Date/Time of Note DATE: 09/26/16 TIME: 12:00 Assessment/Plan Assessment/Plan Chief Complaint/Hosp Course IMPRESSION: 1. Hypotension/shock state, question cardiogenic versus septic unlikely as patient had a low EF with negative cardiac enzymes. Still on levo low dose 2. Congestive heart failure, systolic, acute on chronic. 3. Coronary artery disease, status post coronary artery bypass graft surgery. 4. Chronic kidney disease on hemodialysis. 5. Coagulopathy secondary to Eliquis. 6. History of paroxysmal atrial fibrillation. 7. Likely sepsis. 8. Elevated digoxin level. 9. Anemia, worsening slight Recc: -Tele -Wean levo as tolerated -Contnue asa -HD for volume removal as tolerated only with increased pressor requirement during HD -Continue abx's and f/u cx data -pnding family discussion scheduled for wednesday now Problems: Consultation Date/Type/Reason Admit Date/Time Sep 19, 2016 at 14:51 Initial Consult Date 09/23/2016 Type of Consultation: Cardiology Reason for Consultation cardiomyopathy/CHF Referring Provider: THERESA RIVERA Exam/Review of Systems Vital Signs Vitals Vital Signs Date Time Temp Pulse Resp B/P Pulse Ox O2 Delivery O2 Flow Rate FiO2 09/26/16 11:38 60 22 100 30 09/26/16 11:15 115/52 09/26/16 07:30 98.1 09/24/16 19:00 Mechanical Ventilator Intake and Output 09/25/16 09/25/16 09/26/16 15:00 23:00 07:00 Intake Total 799.494 ml 591.25 ml 295.62 ml Output Total 4832 ml 80 ml 30 ml Balance -4032.506 ml 511.25 ml 265.62 ml Exam Review of Systems: CONSTITUTIONAL: No fevers, chills. PULMONARY: No sob CARDIOVASCULAR: No chest pain/palpitations GASTROINTESTINAL: No nausea/vomiting. GENITOURINARY: No hematuria/dysuria. MUSCULOSKELETAL: No myagias/arthalgias. PSYCHIATRIC: The patient denies depression. NEUROLOGIC: No weakness Constitutional: alert Psych: no complaints Head: normocephalic ENMT: mucosa pink and moist Neck: jvd (9 cm water), supple Respiratory: diminished breath sounds Cardiovascular: regular rate and rhythm Gastrointestinal: non-tender, soft Musculoskeletal: muscle tone (normal) Extremities: edema (none) Neurological: other (No focal deficits) Results Result Diagram: 09/26/16 0450 09/26/16 0450 Results 24 hrs Laboratory Tests Test 09/25/16 13:09 09/25/16 17:01 09/25/16 21:47 09/26/16 02:27 Bedside Glucose 103 117 87 116 Test 09/26/16 04:50 09/26/16 05:57 09/26/16 09:18 White Blood Count 6.9 # Red Blood Count 2.64 L Hemoglobin 6.7 *L Hematocrit 22.6 L Mean Corpuscular Volume 85.6 Mean Corpuscular Hemoglobin 25.4 L Mean Corpuscular Hemoglobin Concent 29.6 L Red Cell Distribution Width 23.4 H Platelet Count 102 L Mean Platelet Volume 12.5 H Neutrophils % 80.7 H Lymphocytes % 11.5 L Monocytes % 5.5 Eosinophils % 2.0 Basophils % 0.0 Nucleated Red Blood Cells % 0.3 H Neutrophils # 5.6 Lymphocytes # 0.8 Monocytes # 0.4 Eosinophils # 0.1 Basophils # 0.0 Nucleated Red Blood Cells # 0.0 Sodium Level 145 H Potassium Level 2.8 *L Chloride Level 105 Carbon Dioxide Level 31 Anion Gap 12 Blood Urea Nitrogen 26 H Creatinine 1.36 H Glucose Level 103 Calcium Level 8.5 Bedside Glucose 75 115 Medications Medications Current Medications Apixaban (Eliquis) 2.5 mg BID PO Last administered on 09/26/16 08:33; Admin Dose 2.5 MG; Start 09/19/16 at 21:00 Ascorbic Acid (Vitamin C) 500 mg DAILY PO Last administered on 09/26/16 08:33 ; Admin Dose 500 MG; Start 09/20/16 at 09:00 Aspirin (Aspirin) 81 mg DAILY PO Last administered on 09/26/16 08:33; Admin Dose 81 MG; Start 09/20/16 at 09:00 Carvedilol (Coreg) 1.5625 mg BID PO Last administered on 09/22/16 20:47; Admin Dose 1.5625 MG; Start 09/19/16 at 21:00; Status Future Hold Digoxin (Digoxin) 0.125 mg Q2D@13 PO ; Start 09/21/16 at 13:00; Status Future Hold Pantoprazole (Protonix Iv) 40 mg BID@06,18 IV Last administered on 09/26/16 05 :59; Admin Dose 40 MG; Start 09/20/16 at 06:00 Furosemide 20 mg 20 mg DAILY@06 IV Last administered on 09/25/16 05:16; Admin Dose 20 MG; Start 09/20/16 at 06:00 Levofloxacin/ Dextrose 100 ml @ 100 mls/hr Q48H IVPB Last administered on 09/25 21:30; Admin Dose 100 MLS/HR; Start 09/19/16 at 21:00 Norepinephrine 16 mg/Dextrose 500 ml @ 1.87 mls/hr TITRATE IV Last administered on 09/26/16 04:40; Admin Dose 5.62 MLS/HR; Start 09/20/16 at 02:00 Midazolam HCl (Versed) 50 ml @ 1 mls/hr TITRATE IV Last administered on 15:03; Admin Dose 6 MLS/HR; Start 09/20/16 at 02:00 Insulin Aspart (Novolog Insulin Pen) NOVOLOG *MILD* ALGORI... Q4 SC Last administered on 09/24/16 21:16; Admin Dose 1 UNIT; Start 09/21/16 at 17:00 Miscellaneous Information 1 ea NOTE XX ; Start 09/21/16 at 14:00 Glucose (Glutose) 15 gm Q15M PRN PO DECREASED GLUCOSE; Start 09/21/16 at 14:00 Glucose (Glutose) 22.5 gm Q15M PRN PO DECREASED GLUCOSE; Start 09/21/16 at 14: 00 Dextrose (D50w Syringe) 25 ml Q15M PRN IV DECREASED GLUCOSE; Start 09/21/16 at 14:00 Dextrose (D50w Syringe) 50 ml Q15M PRN IV DECREASED GLUCOSE; Start 09/21/16 at 14:00 Glucagon (Glucagen) 1 mg Q15M PRN IM DECREASED GLUCOSE; Start 09/21/16 at 14:00 Glucose 15 gm 15 gm Q15M PRN BUCCAL DECREASED GLUCOSE; Start 09/21/16 at 14:00 Vancomycin HCl 250 ml @ 125 mls/hr Q36H IVPB Last administered on 09/25/16 08 :41; Admin Dose 125 MLS/HR; Start 09/22/16 at 08:00 Caspofungin/ Sodium Chloride (Cancidas/NS) 250 ml @ 250 mls/hr Q24H IVPB Last administered on 09/25/16 15:52; Admin Dose 250 MLS/HR; Start 09/23/16 at 15:30 ; Stop 09/26/16 at 23:00 IV Flush (NS 10 ml) 10 ml PRN PRN IV IV PROTOCOL; Start 09/22/16 at 18:30 Lorazepam (Ativan) 1 mg Q1H PRN IV AGITATION/ANXIETY Last administered on 03:42; Admin Dose 1 MG; Start 09/24/16 at 02:30 Potassium Chloride (Klor-Con 20) 20 meq DAILY PO Last administered on 08:37; Admin Dose 20 MEQ; Start 09/25/16 at 09:00 Docusate Sodium (Colace Liquid Cup) 200 mg QHS NGT Last administered on 22:01; Admin Dose 100 MG; Start 09/24/16 at 21:00 Miscellaneous Information (*Rx Drug Level Order Reminder*) VANCO TR LEVEL PRIOR... ONCE ONCE XX ; Start 09/26/16 at 19:00; Stop 09/26/16 at 19:01 POLI SAN Sep 26, 2016 12:02
--- NOTE | 2016-09-26 18:07 | CONS ---
Date/Time of Note Date/Time of Note DATE: 09/26/16 TIME: 18:04 Assessment/Plan Assessment/Plan Chief Complaint/Hosp Course ID PROGRESS NOTE TOTAL ABX DAY # 8 => Vanco IV + Levaquin + Cancidas #5 s/p Merrem 09/19 x1 24H INTERVAL SUMMARY * Severe recurrent anemia, coagulopathy, Multi-organ failure, (+)Jaundice -> remains on aggressive life support per family * Awake, alert, responsive to family, confused, * Plan is for Trach/ Peg family wishes to discuss amongst themselves and will give feedback on Wednesday PHYSICAL EXAMINATION: GENERAL: 81 yo M orally intubated on the Vent HEENT: (+)Jaundice, (+)Icteric, NGT-> Secure, ETT-> secure to Vent NECK: IJ HD catheter CHEST: Rise symmetrical, rhonchi HEART: RRR (+)RA ABDOMEN: Distended, firmm hepatomegaly EXTREMITIES: Warm Decubs bilateral feet SKIN: ID ASSESSMENT: 81 yo M w/multi-organ system failure admitted from HD unit with: 1. Shock -> cardiogenic + septic + liver etiologies suspected 2. Severe sepsis with lactic acidosis secondary to HCAP and UTI * History of recurrent/recent BLL HCAP * Yeast UTI URINE CULTURE Final -> FC was changed due to yeast Organism 1 FUNMILAYO ALBICANS COLONY COUNT 50,000 - 60,000 CFU/ml 3. Acute hypoxic respiratory failure -> intubated in the emergency room. 4. Acute CHF exacerbation w/progressive end-stage congestive heart failure. * Coronary artery disease with severe ischemic cardiomyopathy -> Hx of CABG, ICD placement. 5. Paroxysmal atrial fibrillation. 6. Chronic renal disease on hemodialysis, end-stage renal disease. 7. Adult-onset diabetes mellitus. 8. BLEXT Diabetic, ischemic, new ulcers and cellulitis both feet. 9. 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 10. Chronic cirrhosis of the liver with coagulopathy, mild hyperbilirubinemia and transaminitis. 11. 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 12. Severe debility. (-)MRSA Nares INVASIVES: * PIV, ETT, NGT, R-IJ HD catheter, ICD CURRENT ABX: TOTAL ABX DAY # 7 => Vanco IV + Levaquin + Cancidas #4 s/p Merrem 09/19 x1 ID RECOMMENDATIONS: => 81 yo M w/multi-organ system failure end-stage renal, end-stage cardiomyopathy, liver failure w/hypoglycemia, acute respiratory failure-> doubt ABX with reverse the poor prognosis. * Clinically no new issues -- muti-organ failure, more awake/alert, communicates w/family -- remains on aggressive life support per family * Plan is for Trach/ Peg family wishes to discuss amongst themselves and will give feedback on Wednesday * Continue current ABX + add antifungal for yeast UTI = Cancidas (Diflucan deferred due to drug-drug interactions) * Critically ill with multi-organ failure patient is palliative/hospice care appropriate; nevertheless he remains on aggressive medical plan of care. . . Problems: Consultation Date/Type/Reason Admit Date/Time Sep 19, 2016 at 14:51 Type of Consultation: ID Referring Provider: THERESA RIVERA Exam/Review of Systems Vital Signs Vitals Vital Signs Date Time Temp Pulse Resp B/P Pulse Ox O2 Delivery O2 Flow Rate FiO2 09/26/16 17:53 64 28 100 30 09/26/16 14:45 129/55 09/26/16 12:00 98.0 09/24/16 19:00 Mechanical Ventilator Intake and Output 09/25/16 09/25/16 09/26/16 14:59 22:59 06:59 Intake Total 805.052 ml 596.942 ml 290 ml Output Total 4832 ml 80 ml 30 ml Balance -4026.948 ml 516.942 ml 260 ml Results Result Diagram: 09/26/16 0450 09/26/16 0450 Results 24 hrs Laboratory Tests Test 09/25/16 21:47 09/26/16 02:27 09/26/16 04:50 09/26/16 05:57 Bedside Glucose 87 116 75 White Blood Count 6.9 # Red Blood Count 2.64 L Hemoglobin 6.7 *L Hematocrit 22.6 L Mean Corpuscular Volume 85.6 Mean Corpuscular Hemoglobin 25.4 L Mean Corpuscular Hemoglobin Concent 29.6 L Red Cell Distribution Width 23.4 H Platelet Count 102 L Mean Platelet Volume 12.5 H Neutrophils % 80.7 H Lymphocytes % 11.5 L Monocytes % 5.5 Eosinophils % 2.0 Basophils % 0.0 Nucleated Red Blood Cells % 0.3 H Neutrophils # 5.6 Lymphocytes # 0.8 Monocytes # 0.4 Eosinophils # 0.1 Basophils # 0.0 Nucleated Red Blood Cells # 0.0 Sodium Level 145 H Potassium Level 2.8 *L Chloride Level 105 Carbon Dioxide Level 31 Anion Gap 12 Blood Urea Nitrogen 26 H Creatinine 1.36 H Glucose Level 103 Calcium Level 8.5 Test 09/26/16 08:30 09/26/16 09:18 09/26/16 14:07 09/26/16 17:26 Stool Occult Blood POSITIVE Bedside Glucose 115 124 138 Medications Medications Current Medications Apixaban (Eliquis) 2.5 mg BID PO Last administered on 09/26/16 08:33; Admin Dose 2.5 MG; Start 09/19/16 at 21:00 Ascorbic Acid (Vitamin C) 500 mg DAILY PO Last administered on 09/26/16 08:33 ; Admin Dose 500 MG; Start 09/20/16 at 09:00 Aspirin (Aspirin) 81 mg DAILY PO Last administered on 09/26/16 08:33; Admin Dose 81 MG; Start 09/20/16 at 09:00 Carvedilol (Coreg) 1.5625 mg BID PO Last administered on 09/22/16 20:47; Admin Dose 1.5625 MG; Start 09/19/16 at 21:00; Status Future Hold Digoxin (Digoxin) 0.125 mg Q2D@13 PO ; Start 09/21/16 at 13:00; Status Future Hold Pantoprazole (Protonix Iv) 40 mg BID@06,18 IV Last administered on 09/26/16 05 :59; Admin Dose 40 MG; Start 09/20/16 at 06:00 Furosemide 20 mg 20 mg DAILY@06 IV Last administered on 09/25/16 05:16; Admin Dose 20 MG; Start 09/20/16 at 06:00 Levofloxacin/ Dextrose 100 ml @ 100 mls/hr Q48H IVPB Last administered on 09/25 21:30; Admin Dose 100 MLS/HR; Start 09/19/16 at 21:00 Norepinephrine 16 mg/Dextrose 500 ml @ 1.87 mls/hr TITRATE IV Last administered on 09/26/16 04:40; Admin Dose 5.62 MLS/HR; Start 09/20/16 at 02:00 Midazolam HCl (Versed) 50 ml @ 1 mls/hr TITRATE IV Last administered on 15:03; Admin Dose 6 MLS/HR; Start 09/20/16 at 02:00 Insulin Aspart (Novolog Insulin Pen) NOVOLOG *MILD* ALGORI... Q4 SC Last administered on 09/24/16 21:16; Admin Dose 1 UNIT; Start 09/21/16 at 17:00 Miscellaneous Information 1 ea NOTE XX ; Start 09/21/16 at 14:00 Glucose (Glutose) 15 gm Q15M PRN PO DECREASED GLUCOSE; Start 09/21/16 at 14:00 Glucose (Glutose) 22.5 gm Q15M PRN PO DECREASED GLUCOSE; Start 09/21/16 at 14: 00 Dextrose (D50w Syringe) 25 ml Q15M PRN IV DECREASED GLUCOSE; Start 09/21/16 at 14:00 Dextrose (D50w Syringe) 50 ml Q15M PRN IV DECREASED GLUCOSE; Start 09/21/16 at 14:00 Glucagon (Glucagen) 1 mg Q15M PRN IM DECREASED GLUCOSE; Start 09/21/16 at 14:00 Glucose 15 gm 15 gm Q15M PRN BUCCAL DECREASED GLUCOSE; Start 09/21/16 at 14:00 Vancomycin HCl 250 ml @ 125 mls/hr Q36H IVPB Last administered on 09/25/16 08 :41; Admin Dose 125 MLS/HR; Start 09/22/16 at 08:00 Caspofungin/ Sodium Chloride (Cancidas/NS) 250 ml @ 250 mls/hr Q24H IVPB Last administered on 09/25/16 15:52; Admin Dose 250 MLS/HR; Start 09/23/16 at 15:30 ; Stop 09/26/16 at 23:00 IV Flush (NS 10 ml) 10 ml PRN PRN IV IV PROTOCOL; Start 09/22/16 at 18:30 Lorazepam (Ativan) 1 mg Q1H PRN IV AGITATION/ANXIETY Last administered on 03:42; Admin Dose 1 MG; Start 09/24/16 at 02:30 Docusate Sodium (Colace Liquid Cup) 200 mg QHS NGT Last administered on 22:01; Admin Dose 100 MG; Start 09/24/16 at 21:00 Miscellaneous Information (*Rx Drug Level Order Reminder*) VANCO TR LEVEL PRIOR... ONCE ONCE XX ; Start 09/26/16 at 19:00; Stop 09/26/16 at 19:01 Potassium Chloride (Klor-Con 20) 20 meq BID PO ; Start 09/26/16 at 21:00 NAEL COY NP Sep 26, 2016 18:07
[2016-09-26] MEDS: CASPOFUNGIN 50 MG in SOD CHLORIDE 0.9% 250 ML IVPB SCH (19:34)
[2016-09-26] MEDS ORDERED: POTASSIUM CHLORIDE (SR) 20 MEQ TAB PO SCH (21:00)
[2016-09-26] MEDS: VANCOMYCIN 1 GM in NS 250 ML IVPB SCH (22:00)
[2016-09-26] MEDS: DOCUSATE SODIUM 10 MG/ML (10ML CUP) NGT SCH (22:00)
[2016-09-27] VITALS (61 sets, daily range): BP systolic 86–127; BP diastolic 39–72; PULSE 60–90; RESP 10–25
[2016-09-27] MEDS: INSULIN ASPART [NOVOLOG] 3 ML PEN SC SCH ×6 (01:00→21:00)
[2016-09-27 04:48] LABS: ADD SCAN DIFF NO
[2016-09-27 04:59] LABS: ABNORMAL IP MESSAGE 1; BASOPHILS % 0.3 % (0.0-2.0); EOSINOPHILS # 0.2 10^3/ul (0.0-0.5); EOSINOPHILS % 2.7 % (0.0-7.0); HEMATOCRIT 27.7 % (42.0-52.0); HEMOGLOBIN 8.6 g/dl (14.0-18.0); LYMPHOCYTES # 0.7 10^3/ul (0.8-2.9); LYMPHOCYTES % 10.4 % (15.0-51.0); MEAN CORPUSCULAR HEMOGLOBIN 26.9 pg (29.0-33.0); MEAN CORPUSCULAR VOLUME 86.6 fl (82.0-101.0); MEAN PLATELET VOLUME 11.6 fl (7.4-10.4); MONOCYTE # 0.4 10^3/ul (0.3-0.9); MONOCYTES % 5.4 % (0.0-11.0); NEUTROPHIL # 5.6 10^3/ul (1.6-7.5); NEUTROPHILS % 80.9 % (39.0-77.0); NUCLEATED RED BLOOD CELLS% 0.3 /100WBC (0.0-0.0); PLATELET COUNT 104 10^3/UL (140-415); RED CELL DISTRIBUTION WIDTH 20.9 % (11.5-14.5); WHITE BLOOD COUNT 6.9 10^3/ul (4.8-10.8)
[2016-09-27] MEDS: FUROSEMIDE 20 MG INJ IV SCH (05:24)
[2016-09-27] MEDS: PANTOPRAZOLE 40 MG INJ IV SCH ×2 (05:24→18:06)
[2016-09-27 06:44] LABS: CALCIUM 8.5 mg/dl (8.4-10.2); CREATININE 1.49 mg/dl (0.61-1.24); POTASSIUM 3.2 mmol/L (3.5-5.1)
[2016-09-27] MEDS: LORAZEPAM 2 MG INJ IV PRN ×3 (08:02→13:09)
[2016-09-27] MEDS: ASPIRIN 81 MG TAB PO SCH (09:02)
[2016-09-27] MEDS: POTASSIUM CHLORIDE 20 MEQ POWDER FOR ORAL SOLN NGT SCH ×2 (09:02→21:03)
[2016-09-27] MEDS: ASCORBIC ACID 500 MG TAB PO SCH (09:02)
[2016-09-27] MEDS: APIXABAN 5 MG TABLET PO SCH ×2 (10:40→21:03)
--- NOTE | 2016-09-27 11:42 | CONS ---
Date/Time of Note Date/Time of Note DATE: 09/27/16 TIME: 11:38 Assessment/Plan Assessment/Plan Chief Complaint/Hosp Course IMPRESSION: 1. Hypotension/shock state, question cardiogenic versus septic unlikely as patient had a low EF with negative cardiac enzymes-Now off Levo 2. Congestive heart failure, systolic, acute on chronic. 3. Coronary artery disease, status post coronary artery bypass graft surgery. 4. Chronic kidney disease on hemodialysis. 5. Coagulopathy secondary to Eliquis. 6. History of paroxysmal atrial fibrillation. 7. Likely sepsis. 8. Elevated digoxin level. 9. Anemia, worsening slight Recc: -Tele -Contnue asa -HD for volume removal as tolerated only with increased pressor requirement during HD -Continue abx's and f/u cx data -pnding family discussion scheduled for wednesday Problems: Consultation Date/Type/Reason Admit Date/Time Sep 19, 2016 at 14:51 Initial Consult Date 09/23/2016 Type of Consultation: Cardiology Reason for Consultation Cardiomyopathy/CHF Referring Provider: THERESA RIVERA Exam/Review of Systems Vital Signs Vitals Vital Signs Date Time Temp Pulse Resp B/P Pulse Ox O2 Delivery O2 Flow Rate FiO2 09/27/16 09:40 60 18 100 30 09/27/16 09:30 104/48 Mechanical Ventilator 09/27/16 08:00 98.6 Intake and Output 09/26/16 09/26/16 09/27/16 15:00 23:00 07:00 Intake Total 1037.47 ml 621.87 ml 510 ml Output Total 115 ml 70 ml 50 ml Balance 922.47 ml 551.87 ml 460 ml Exam Review of Systems: CONSTITUTIONAL: No fevers, chills. PULMONARY: intubated CARDIOVASCULAR: No obvious chest pain/palpitations GASTROINTESTINAL: No nausea/vomiting. GENITOURINARY: No hematuria/dysuria. MUSCULOSKELETAL: No obvious myagias/arthalgias. PSYCHIATRIC: The patient denies depression. NEUROLOGIC: No weakness Constitutional: other (sedated) Head: normocephalic ENMT: mucosa pink and moist Neck: jvd, supple Respiratory: diminished breath sounds Cardiovascular: regular rate and rhythm Gastrointestinal: non-tender, soft Musculoskeletal: muscle tone (normal) Extremities: edema (trace/B) Neurological: other (No focal deficits) Results Result Diagram: 09/27/16 0400 09/27/16 0400 Results 24 hrs Laboratory Tests Test 09/26/16 14:07 09/26/16 17:26 09/26/16 19:31 09/26/16 22:02 Bedside Glucose 124 138 101 Vancomycin Level Trough 16.9 Test 09/27/16 01:59 09/27/16 04:00 09/27/16 05:32 09/27/16 09:16 Bedside Glucose 91 75 89 White Blood Count 6.9 Red Blood Count 3.20 #L Hemoglobin 8.6 #L Hematocrit 27.7 #L Mean Corpuscular Volume 86.6 Mean Corpuscular Hemoglobin 26.9 L Mean Corpuscular Hemoglobin Concent 31.0 L Red Cell Distribution Width 20.9 H Platelet Count 104 L Mean Platelet Volume 11.6 H Neutrophils % 80.9 H Lymphocytes % 10.4 L Monocytes % 5.4 Eosinophils % 2.7 Basophils % 0.3 Nucleated Red Blood Cells % 0.3 H Neutrophils # 5.6 Lymphocytes # 0.7 L Monocytes # 0.4 Eosinophils # 0.2 Basophils # 0.0 Nucleated Red Blood Cells # 0.0 Sodium Level 144 Potassium Level 3.2 L Chloride Level 109 Carbon Dioxide Level 29 Anion Gap 9 Blood Urea Nitrogen 35 H Creatinine 1.49 H Glucose Level 105 Calcium Level 8.5 Medications Medications Current Medications Apixaban (Eliquis) 2.5 mg BID PO Last administered on 09/27/16 10:40; Admin Dose 2.5 MG; Start 09/19/16 at 21:00 Ascorbic Acid (Vitamin C) 500 mg DAILY PO Last administered on 09/27/16 09:02 ; Admin Dose 500 MG; Start 09/20/16 at 09:00 Aspirin (Aspirin) 81 mg DAILY PO Last administered on 09/27/16 09:02; Admin Dose 81 MG; Start 09/20/16 at 09:00 Carvedilol (Coreg) 1.5625 mg BID PO Last administered on 09/22/16 20:47; Admin Dose 1.5625 MG; Start 09/19/16 at 21:00; Status Future Hold Digoxin (Digoxin) 0.125 mg Q2D@13 PO ; Start 09/21/16 at 13:00; Status Future Hold Pantoprazole (Protonix Iv) 40 mg BID@,18 IV Last administered on 09/27/16 05 :24; Admin Dose 40 MG; Start 09/20/16 at 06:00 Furosemide 20 mg 20 mg DAILY@06 IV Last administered on 09/25/16 05:16; Admin Dose 20 MG; Start 09/20/16 at 06:00 Levofloxacin/ Dextrose 100 ml @ 100 mls/hr Q48H IVPB Last administered on 09/25 21:30; Admin Dose 100 MLS/HR; Start 09/19/16 at 21:00 Norepinephrine 16 mg/Dextrose 500 ml @ 1.87 mls/hr TITRATE IV Last administered on 09/26/16 04:40; Admin Dose 5.62 MLS/HR; Start 09/20/16 at 02:00 Midazolam HCl (Versed) 50 ml @ 1 mls/hr TITRATE IV Last administered on 15:03; Admin Dose 6 MLS/HR; Start 09/20/16 at 02:00 Insulin Aspart (Novolog Insulin Pen) NOVOLOG *MILD* ALGORI... Q4 SC Last administered on 09/24/16 21:16; Admin Dose 1 UNIT; Start 09/21/16 at 17:00 Miscellaneous Information 1 ea NOTE XX ; Start 09/21/16 at 14:00 Glucose (Glutose) 15 gm Q15M PRN PO DECREASED GLUCOSE; Start 09/21/16 at 14:00 Glucose (Glutose) 22.5 gm Q15M PRN PO DECREASED GLUCOSE; Start 09/21/16 at 14: 00 Dextrose (D50w Syringe) 25 ml Q15M PRN IV DECREASED GLUCOSE; Start 09/21/16 at 14:00 Dextrose (D50w Syringe) 50 ml Q15M PRN IV DECREASED GLUCOSE; Start 09/21/16 at 14:00 Glucagon (Glucagen) 1 mg Q15M PRN IM DECREASED GLUCOSE; Start 09/21/16 at 14:00 Glucose (Glutose) 15 gm Q15M PRN BUCCAL DECREASED GLUCOSE; Start 09/21/16 at 14 :00 IV Flush (NS 10 ml) 10 ml PRN PRN IV IV PROTOCOL; Start 09/22/16 at 18:30 Lorazepam (Ativan) 1 mg Q1H PRN IV AGITATION/ANXIETY Last administered on 10:40; Admin Dose 1 MG; Start 09/24/16 at 02:30 Docusate Sodium 200 mg 200 mg QHS NGT Last administered on 09/26/16 22:00; Admin Dose 200 MG; Start 09/24/16 at 21:00 Vancomycin HCl (Vancocin) 250 ml @ 125 mls/hr Q48H IVPB ; Start 09/28/16 at 20: 00 Potassium Chloride (Potassium Chloride Pwd/Soln) 20 meq BID NGT Last administered on 09/27/16 09:02; Admin Dose 20 MEQ; Start 09/27/16 at 09:00 POLI SAN Sep 27, 2016 11:42
--- NOTE | 2016-09-27 11:51 | PN ---
Date/Time of Note Date/Time of Note DATE: 09/27/16 TIME: 11:50 Assessment/Plan VTE Prophylaxis VTE Prophylaxis Intervention: other (Eliquis) Lines/Catheters IV Catheter Type (from Nrsg): PICC Line Central line still needed: Yes Urinary Cath still in place: Yes Reason Cath still needed: urinary retention Assessment/Plan Chief Complaint/Hosp Course Assessment/Plan: 81M with: 1. 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 Endstage CHF with exacerbation - CV team consulted, AICD in place - Lasix, low dose Coreg, f/u CV rec's 3. Chronic kidney disease on hemodialysis 3 times a week limited by hypotension - f/u renal rec's, HD as tolerated per Nephro 4. Shock ?cardiogenic r/o septic on pressor support - wean as tolerated 5. Diabetes mellitus type 2 - ISS 6. Paroxysmal atrial fibrillation, rate controlled - monitor, BBrosy 7. 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 8. Chronic liver cirrhosis with coagulopathy and mild hyperbilirubinemia and transaminitis likely associated with chronic CHF - monitor 9. Severe debility. 10. 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 11. LE cellulitis and ulcerations ? PVD Prognosis : very poor and guarded Hospitalist spoke extensively with his son and recommended hospice care a few days ago, remains full code at this time. Family conference scheduled for Wednesday. Critical care time = 40 min Problems: Subjective 24 Hr Interval Summary Free Text/Dictation Pt still intubated. Had blood transfusion yesterday. Exam/Review of Systems Vital Signs Vitals Vital Signs Date Time Temp Pulse Resp B/P Pulse Ox O2 Delivery O2 Flow Rate FiO2 09/27/16 09:40 60 18 100 30 09/27/16 09:30 104/48 Mechanical Ventilator 09/27/16 08:00 98.6 Intake and Output 09/26/16 09/26/16 09/27/16 14:59 22:59 06:59 Intake Total 1041.22 ml 623.74 ml 540 ml Output Total 95 ml 80 ml 60 ml Balance 946.22 ml 543.74 ml 480 ml Exam Constitutional: frail, other (intubated and sedated, comfortable on vent) Head: normocephalic Eyes: PERRL ENMT: intubated Respiratory: diminished breath sounds, No crackles/rales Cardiovascular: irregular rhythm, murmurs/extra sounds Gastrointestinal: bowel sounds, distended, soft Musculoskeletal: No nl extremities to inspection Neurological: No nl mental status Skin: rash or lesions (multiple superficial ulcers on both feet) Results Result Diagram: 09/27/16 0400 09/27/16 0400 Results 24 hrs Laboratory Tests Test 09/26/16 14:07 09/26/16 17:26 09/26/16 19:31 09/26/16 22:02 Bedside Glucose 124 138 101 Vancomycin Level Trough 16.9 Test 09/27/16 01:59 09/27/16 04:00 09/27/16 05:32 09/27/16 09:16 Bedside Glucose 91 75 89 White Blood Count 6.9 Red Blood Count 3.20 #L Hemoglobin 8.6 #L Hematocrit 27.7 #L Mean Corpuscular Volume 86.6 Mean Corpuscular Hemoglobin 26.9 L Mean Corpuscular Hemoglobin Concent 31.0 L Red Cell Distribution Width 20.9 H Platelet Count 104 L Mean Platelet Volume 11.6 H Neutrophils % 80.9 H Lymphocytes % 10.4 L Monocytes % 5.4 Eosinophils % 2.7 Basophils % 0.3 Nucleated Red Blood Cells % 0.3 H Neutrophils # 5.6 Lymphocytes # 0.7 L Monocytes # 0.4 Eosinophils # 0.2 Basophils # 0.0 Nucleated Red Blood Cells # 0.0 Sodium Level 144 Potassium Level 3.2 L Chloride Level 109 Carbon Dioxide Level 29 Anion Gap 9 Blood Urea Nitrogen 35 H Creatinine 1.49 H Glucose Level 105 Calcium Level 8.5 Medications Medications Current Medications Apixaban (Eliquis) 2.5 mg BID PO Last administered on 09/27/16 10:40; Admin Dose 2.5 MG; Start 09/19/16 at 21:00 Ascorbic Acid (Vitamin C) 500 mg DAILY PO Last administered on 09/27/16 09:02 ; Admin Dose 500 MG; Start 09/20/16 at 09:00 Aspirin (Aspirin) 81 mg DAILY PO Last administered on 09/27/16 09:02; Admin Dose 81 MG; Start 09/20/16 at 09:00 Carvedilol (Coreg) 1.5625 mg BID PO Last administered on 09/22/16 20:47; Admin Dose 1.5625 MG; Start 09/19/16 at 21:00; Status Future Hold Digoxin (Digoxin) 0.125 mg Q2D@13 PO ; Start 09/21/16 at 13:00; Status Future Hold Pantoprazole (Protonix Iv) 40 mg BID@06,18 IV Last administered on 09/27/16 05 :24; Admin Dose 40 MG; Start 09/20/16 at 06:00 Furosemide 20 mg 20 mg DAILY@06 IV Last administered on 09/25/16 05:16; Admin Dose 20 MG; Start 09/20/16 at 06:00 Levofloxacin/ Dextrose 100 ml @ 100 mls/hr Q48H IVPB Last administered on 09/25 21:30; Admin Dose 100 MLS/HR; Start 09/19/16 at 21:00 Norepinephrine 16 mg/Dextrose 500 ml @ 1.87 mls/hr TITRATE IV Last administered on 09/26/16 04:40; Admin Dose 5.62 MLS/HR; Start 09/20/16 at 02:00 Midazolam HCl (Versed) 50 ml @ 1 mls/hr TITRATE IV Last administered on 15:03; Admin Dose 6 MLS/HR; Start 09/20/16 at 02:00 Insulin Aspart (Novolog Insulin Pen) NOVOLOG *MILD* ALGORI... Q4 SC Last administered on 09/24/16 21:16; Admin Dose 1 UNIT; Start 09/21/16 at 17:00 Miscellaneous Information 1 ea NOTE XX ; Start 09/21/16 at 14:00 Glucose (Glutose) 15 gm Q15M PRN PO DECREASED GLUCOSE; Start 09/21/16 at 14:00 Glucose (Glutose) 22.5 gm Q15M PRN PO DECREASED GLUCOSE; Start 09/21/16 at 14: 00 Dextrose (D50w Syringe) 25 ml Q15M PRN IV DECREASED GLUCOSE; Start 09/21/16 at 14:00 Dextrose (D50w Syringe) 50 ml Q15M PRN IV DECREASED GLUCOSE; Start 09/21/16 at 14:00 Glucagon (Glucagen) 1 mg Q15M PRN IM DECREASED GLUCOSE; Start 09/21/16 at 14:00 Glucose (Glutose) 15 gm Q15M PRN BUCCAL DECREASED GLUCOSE; Start 09/21/16 at 14 :00 IV Flush (NS 10 ml) 10 ml PRN PRN IV IV PROTOCOL; Start 09/22/16 at 18:30 Lorazepam (Ativan) 1 mg Q1H PRN IV AGITATION/ANXIETY Last administered on 10:40; Admin Dose 1 MG; Start 09/24/16 at 02:30 Docusate Sodium 200 mg 200 mg QHS NGT Last administered on 09/26/16 22:00; Admin Dose 200 MG; Start 09/24/16 at 21:00 Vancomycin HCl (Vancocin) 250 ml @ 125 mls/hr Q48H IVPB ; Start 09/28/16 at 20: 00 Potassium Chloride (Potassium Chloride Pwd/Soln) 20 meq BID NGT Last administered on 09/27/16 09:02; Admin Dose 20 MEQ; Start 09/27/16 at 09:00 THERESA RIVERA Sep 27, 2016 11:51
--- NOTE | 2016-09-27 12:01 | CONS ---
Date/Time of Note Date/Time of Note DATE: 09/27/16 TIME: 11:59 Assessment/Plan Assessment/Plan Additional Assessment/Plan Ventilator settings; AC of 16, tidal volume 500, PEEP of 5, 30% FiO2. Assessment recommendations; 1. Patient admitted with respiratory failure due to recurrent flash pulmonary edema, this is his third intubation in the last weeks. 2. Cardiomyopathy. 3. Coronary artery disease. Status post bypass surgery in the past. 4. Chronic renal failure, on hemodialysis. 5. Cardiac arrhythmia. Status post pacemaker implantation in the past. Discontinue all antibiotics. Continue current supportive measures. Patient will need to have a tracheostomy performed. Family is still deciding about that. Overall prognosis remains poor. Consultation Date/Type/Reason Admit Date/Time Sep 19, 2016 at 14:51 Type of Consultation: Pulmonary/critical care Referring Provider: THERESA RIVERA 24 HR Interval Summary Free Text/Dictation Patient condition remains critical but stable. Has remained hemodynamically stable. Remains awake alert. General exam; elderly male, on ventilator, orally intubated. Exam/Review of Systems Vital Signs Vitals Vital Signs Date Time Temp Pulse Resp B/P Pulse Ox O2 Delivery O2 Flow Rate FiO2 09/27/16 09:40 60 18 100 30 09/27/16 09:30 104/48 Mechanical Ventilator 09/27/16 08:00 98.6 Intake and Output 09/26/16 09/26/16 09/27/16 15:00 23:00 07:00 Intake Total 1037.47 ml 621.87 ml 510 ml Output Total 115 ml 70 ml 50 ml Balance 922.47 ml 551.87 ml 460 ml Exam HEENT exam is; supple neck, positive JVD. No lymphadenopathy. Midline trachea. Orally intubated. Pupils are small bilaterally. Patient has a few remaining teeth. Chest examined; diminished but clear vessel. S1-S2 audible, no murmurs. Pacemaker left chest wall. There is a well-healed sternal scar. Abdomen examination; soft, nondistended. No organomegaly. Nontender. Bowel sounds audible. Extremity examination; no peripheral edema. Patient has a multiple ecchymosis involving all 4 extremities. 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 Results Result Diagram: 09/27/16 0400 09/27/16 0400 Results 24 hrs Laboratory Tests Test 09/26/16 14:07 09/26/16 17:26 09/26/16 19:31 09/26/16 22:02 Bedside Glucose 124 138 101 Vancomycin Level Trough 16.9 Test 09/27/16 01:59 09/27/16 04:00 09/27/16 05:32 09/27/16 09:16 Bedside Glucose 91 75 89 White Blood Count 6.9 Red Blood Count 3.20 #L Hemoglobin 8.6 #L Hematocrit 27.7 #L Mean Corpuscular Volume 86.6 Mean Corpuscular Hemoglobin 26.9 L Mean Corpuscular Hemoglobin Concent 31.0 L Red Cell Distribution Width 20.9 H Platelet Count 104 L Mean Platelet Volume 11.6 H Neutrophils % 80.9 H Lymphocytes % 10.4 L Monocytes % 5.4 Eosinophils % 2.7 Basophils % 0.3 Nucleated Red Blood Cells % 0.3 H Neutrophils # 5.6 Lymphocytes # 0.7 L Monocytes # 0.4 Eosinophils # 0.2 Basophils # 0.0 Nucleated Red Blood Cells # 0.0 Sodium Level 144 Potassium Level 3.2 L Chloride Level 109 Carbon Dioxide Level 29 Anion Gap 9 Blood Urea Nitrogen 35 H Creatinine 1.49 H Glucose Level 105 Calcium Level 8.5 Medications Medications Current Medications Apixaban (Eliquis) 2.5 mg BID PO Last administered on 09/27/16 10:40; Admin Dose 2.5 MG; Start 09/19/16 at 21:00 Ascorbic Acid (Vitamin C) 500 mg DAILY PO Last administered on 09/27/16 09:02 ; Admin Dose 500 MG; Start 09/20/16 at 09:00 Aspirin (Aspirin) 81 mg DAILY PO Last administered on 09/27/16 09:02; Admin Dose 81 MG; Start 09/20/16 at 09:00 Carvedilol (Coreg) 1.5625 mg BID PO Last administered on 09/22/16 20:47; Admin Dose 1.5625 MG; Start 09/19/16 at 21:00; Status Future Hold Digoxin (Digoxin) 0.125 mg Q2D@13 PO ; Start 09/21/16 at 13:00; Status Future Hold Pantoprazole (Protonix Iv) 40 mg BID@,18 IV Last administered on 09/27/16 05 :24; Admin Dose 40 MG; Start 09/20/16 at 06:00 Furosemide 20 mg 20 mg DAILY@06 IV Last administered on 09/25/16 05:16; Admin Dose 20 MG; Start 09/20/16 at 06:00 Levofloxacin/ Dextrose 100 ml @ 100 mls/hr Q48H IVPB Last administered on 09/25 21:30; Admin Dose 100 MLS/HR; Start 09/19/16 at 21:00 Norepinephrine 16 mg/Dextrose 500 ml @ 1.87 mls/hr TITRATE IV Last administered on 09/26/16 04:40; Admin Dose 5.62 MLS/HR; Start 09/20/16 at 02:00 Midazolam HCl (Versed) 50 ml @ 1 mls/hr TITRATE IV Last administered on 15:03; Admin Dose 6 MLS/HR; Start 09/20/16 at 02:00 Insulin Aspart (Novolog Insulin Pen) NOVOLOG *MILD* ALGORI... Q4 SC Last administered on 09/24/16 21:16; Admin Dose 1 UNIT; Start 09/21/16 at 17:00 Miscellaneous Information 1 ea NOTE XX ; Start 09/21/16 at 14:00 Glucose (Glutose) 15 gm Q15M PRN PO DECREASED GLUCOSE; Start 09/21/16 at 14:00 Glucose (Glutose) 22.5 gm Q15M PRN PO DECREASED GLUCOSE; Start 09/21/16 at 14: 00 Dextrose (D50w Syringe) 25 ml Q15M PRN IV DECREASED GLUCOSE; Start 09/21/16 at 14:00 Dextrose (D50w Syringe) 50 ml Q15M PRN IV DECREASED GLUCOSE; Start 09/21/16 at 14:00 Glucagon (Glucagen) 1 mg Q15M PRN IM DECREASED GLUCOSE; Start 09/21/16 at 14:00 Glucose (Glutose) 15 gm Q15M PRN BUCCAL DECREASED GLUCOSE; Start 09/21/16 at 14 :00 IV Flush (NS 10 ml) 10 ml PRN PRN IV IV PROTOCOL; Start 09/22/16 at 18:30 Lorazepam (Ativan) 1 mg Q1H PRN IV AGITATION/ANXIETY Last administered on 10:40; Admin Dose 1 MG; Start 09/24/16 at 02:30 Docusate Sodium 200 mg 200 mg QHS NGT Last administered on 09/26/16 22:00; Admin Dose 200 MG; Start 09/24/16 at 21:00 Vancomycin HCl (Vancocin) 250 ml @ 125 mls/hr Q48H IVPB ; Start 09/28/16 at 20: 00 Potassium Chloride (Potassium Chloride Pwd/Soln) 20 meq BID NGT Last administered on 09/27/16 09:02; Admin Dose 20 MEQ; Start 09/27/16 at 09:00 ADAMARIS RAMIREZ Sep 27, 2016 12:01
--- NOTE | 2016-09-27 12:51 | CONS ---
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 Shock -> cardiogenic + septic + liver etiologies suspected 2. Severe sepsis with lactic acidosis secondary to HCAP and UTI * History of recurrent/recent BLL HCAP * Yeast UTI URINE CULTURE Final -> FC was changed due to yeast Organism 1 FUNMILAYO ALBICANS COLONY COUNT 50,000 - 60,000 CFU/ml 3. Acute hypoxic respiratory failure -> intubated in the emergency room. 4. Acute CHF exacerbation w/progressive end-stage congestive heart failure. * Coronary artery disease with severe ischemic cardiomyopathy -> Hx of CABG, ICD placement. 5. Paroxysmal atrial fibrillation. 6. Chronic renal disease on hemodialysis, end-stage renal disease. 7. Adult-onset diabetes mellitus. 8. BLEXT Diabetic, ischemic, new ulcers and cellulitis both feet. 9. 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 10. Chronic cirrhosis of the liver with coagulopathy, mild hyperbilirubinemia and transaminitis. 11. 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 12. Severe debility. (-)MRSA Nares INVASIVES: * PIV, ETT, NGT, R-IJ HD catheter, ICD CURRENT ABX: TOTAL ABX DAY # 7 => Vanco IV + Levaquin + Cancidas #4 s/p Merrem 09/19 x1 ID RECOMMENDATIONS: => 81 yo M w/multi-organ system failure end-stage renal, end-stage cardiomyopathy, liver failure w/hypoglycemia, acute respiratory failure- * ABX continue....unlikely that ABX with reverse the multi-system organ failure , nor the poor prognosis. * Plan is for Trach/ Peg family wishes to discuss amongst themselves and will give feedback on Wednesday = currently family continues with aggressive medical approach . . Problems: Consultation Date/Type/Reason Admit Date/Time Sep 19, 2016 at 14:51 Type of Consultation: ID Referring Provider: THERESA RIVERA Exam/Review of Systems Vital Signs Vitals Vital Signs Date Time Temp Pulse Resp B/P Pulse Ox O2 Delivery O2 Flow Rate FiO2 09/27/16 11:30 61 18 100 30 09/27/16 09:30 104/48 Mechanical Ventilator 09/27/16 08:00 98.6 Intake and Output 09/26/16 09/26/16 09/27/16 15:00 23:00 07:00 Intake Total 1037.47 ml 621.87 ml 510 ml Output Total 115 ml 70 ml 50 ml Balance 922.47 ml 551.87 ml 460 ml Results Result Diagram: 09/27/16 0400 09/27/16 0400 Results 24 hrs Laboratory Tests Test 09/26/16 14:07 09/26/16 17:26 09/26/16 19:31 09/26/16 22:02 Bedside Glucose 124 138 101 Vancomycin Level Trough 16.9 Test 09/27/16 01:59 09/27/16 04:00 09/27/16 05:32 09/27/16 09:16 Bedside Glucose 91 75 89 White Blood Count 6.9 Red Blood Count 3.20 #L Hemoglobin 8.6 #L Hematocrit 27.7 #L Mean Corpuscular Volume 86.6 Mean Corpuscular Hemoglobin 26.9 L Mean Corpuscular Hemoglobin Concent 31.0 L Red Cell Distribution Width 20.9 H Platelet Count 104 L Mean Platelet Volume 11.6 H Neutrophils % 80.9 H Lymphocytes % 10.4 L Monocytes % 5.4 Eosinophils % 2.7 Basophils % 0.3 Nucleated Red Blood Cells % 0.3 H Neutrophils # 5.6 Lymphocytes # 0.7 L Monocytes # 0.4 Eosinophils # 0.2 Basophils # 0.0 Nucleated Red Blood Cells # 0.0 Sodium Level 144 Potassium Level 3.2 L Chloride Level 109 Carbon Dioxide Level 29 Anion Gap 9 Blood Urea Nitrogen 35 H Creatinine 1.49 H Glucose Level 105 Calcium Level 8.5 Medications Medications Current Medications Apixaban (Eliquis) 2.5 mg BID PO Last administered on 09/27/16 10:40; Admin Dose 2.5 MG; Start 09/19/16 at 21:00 Ascorbic Acid (Vitamin C) 500 mg DAILY PO Last administered on 09/27/16 09:02 ; Admin Dose 500 MG; Start 09/20/16 at 09:00 Aspirin (Aspirin) 81 mg DAILY PO Last administered on 09/27/16 09:02; Admin Dose 81 MG; Start 09/20/16 at 09:00 Carvedilol (Coreg) 1.5625 mg BID PO Last administered on 09/22/16 20:47; Admin Dose 1.5625 MG; Start 09/19/16 at 21:00; Status Future Hold Digoxin (Digoxin) 0.125 mg Q2D@13 PO ; Start 09/21/16 at 13:00; Status Future Hold Pantoprazole (Protonix Iv) 40 mg BID@06,18 IV Last administered on 09/27/16 05 :24; Admin Dose 40 MG; Start 09/20/16 at 06:00 Furosemide 20 mg 20 mg DAILY@06 IV Last administered on 09/25/16 05:16; Admin Dose 20 MG; Start 09/20/16 at 06:00 Norepinephrine 16 mg/Dextrose 500 ml @ 1.87 mls/hr TITRATE IV Last administered on 09/26/16 04:40; Admin Dose 5.62 MLS/HR; Start 09/20/16 at 02:00 Midazolam HCl (Versed) 50 ml @ 1 mls/hr TITRATE IV Last administered on 15:03; Admin Dose 6 MLS/HR; Start 09/20/16 at 02:00 Insulin Aspart (Novolog Insulin Pen) NOVOLOG *MILD* ALGORI... Q4 SC Last administered on 09/24/16 21:16; Admin Dose 1 UNIT; Start 09/21/16 at 17:00 Miscellaneous Information 1 ea NOTE XX ; Start 09/21/16 at 14:00 Glucose (Glutose) 15 gm Q15M PRN PO DECREASED GLUCOSE; Start 09/21/16 at 14:00 Glucose (Glutose) 22.5 gm Q15M PRN PO DECREASED GLUCOSE; Start 09/21/16 at 14: 00 Dextrose (D50w Syringe) 25 ml Q15M PRN IV DECREASED GLUCOSE; Start 09/21/16 at 14:00 Dextrose (D50w Syringe) 50 ml Q15M PRN IV DECREASED GLUCOSE; Start 09/21/16 at 14:00 Glucagon (Glucagen) 1 mg Q15M PRN IM DECREASED GLUCOSE; Start 09/21/16 at 14:00 Glucose (Glutose) 15 gm Q15M PRN BUCCAL DECREASED GLUCOSE; Start 09/21/16 at 14 :00 IV Flush (NS 10 ml) 10 ml PRN PRN IV IV PROTOCOL; Start 09/22/16 at 18:30 Lorazepam (Ativan) 1 mg Q1H PRN IV AGITATION/ANXIETY Last administered on 10:40; Admin Dose 1 MG; Start 09/24/16 at 02:30 Docusate Sodium (Colace Liquid Cup) 200 mg QHS NGT Last administered on 22:00; Admin Dose 200 MG; Start 09/24/16 at 21:00 Potassium Chloride (Potassium Chloride Pwd/Soln) 20 meq BID NGT Last administered on 09/27/16 09:02; Admin Dose 20 MEQ; Start 09/27/16 at 09:00 NAEL COY NP Sep 27, 2016 12:51
[2016-09-27] MEDS ORDERED: POTASSIUM CHLORIDE 20 MEQ POWDER FOR ORAL SOLN GTB ONE (15:00)
[2016-09-27] MEDS: PROPOFOL 100 ML IV SCH (15:30)
[2016-09-27] MEDS ORDERED: LORAZEPAM 2 MG INJ IV PRN (17:30)
--- NOTE | 2016-09-27 18:26 | CONS ---
Date/Time of Note Date/Time of Note DATE: 09/27/16 TIME: 18:25 Assessment/Plan Assessment/Plan Chief Complaint/Hosp Course IMPRESSION: 1. Acute hypoxic respiratory failure.on vent 2. Patient has a chronic systolic heart failure. 3. Chronic kidney disease requiring hemodialysis. 4. History of acute tubular necrosis. 5. Cardiomyopathy. 6. Anemia. 7. Neutropenia. 8. The patient has hypoalbuminemia. 9. Patient has ventilator dependent respiratory failure. 10. History of sepsis. 11. Septic shock. 12 hypokalemia plan continue hd weaning d/w family kcl Problems: Consultation Date/Type/Reason Admit Date/Time Sep 19, 2016 at 14:51 Type of Consultation: renal Referring Provider: THERESA RIVERA Exam/Review of Systems Vital Signs Vitals Vital Signs Date Time Temp Pulse Resp B/P Pulse Ox O2 Delivery O2 Flow Rate FiO2 09/27/16 18:00 60 16 93/47 100 Mechanical Ventilator 09/27/16 17:39 30 09/27/16 16:00 98.6 Intake and Output 09/26/16 09/26/16 09/27/16 15:00 23:00 07:00 Intake Total 1037.47 ml 621.87 ml 540 ml Output Total 115 ml 70 ml 65 ml Balance 922.47 ml 551.87 ml 475 ml Exam Neck: supple Respiratory: diminished breath sounds Cardiovascular: regular rate and rhythm Gastrointestinal: soft Musculoskeletal: nl extremities to inspection Extremities: edema (+) Results Result Diagram: 09/27/16 0400 09/27/16 0400 Results 24 hrs Laboratory Tests Test 09/26/16 19:31 09/26/16 22:02 09/27/16 01:59 09/27/16 04:00 Vancomycin Level Trough 16.9 Bedside Glucose 101 91 White Blood Count 6.9 Red Blood Count 3.20 #L Hemoglobin 8.6 #L Hematocrit 27.7 #L Mean Corpuscular Volume 86.6 Mean Corpuscular Hemoglobin 26.9 L Mean Corpuscular Hemoglobin Concent 31.0 L Red Cell Distribution Width 20.9 H Platelet Count 104 L Mean Platelet Volume 11.6 H Neutrophils % 80.9 H Lymphocytes % 10.4 L Monocytes % 5.4 Eosinophils % 2.7 Basophils % 0.3 Nucleated Red Blood Cells % 0.3 H Neutrophils # 5.6 Lymphocytes # 0.7 L Monocytes # 0.4 Eosinophils # 0.2 Basophils # 0.0 Nucleated Red Blood Cells # 0.0 Sodium Level 144 Potassium Level 3.2 L Chloride Level 109 Carbon Dioxide Level 29 Anion Gap 9 Blood Urea Nitrogen 35 H Creatinine 1.49 H Glucose Level 105 Calcium Level 8.5 Test 09/27/16 05:32 09/27/16 09:16 09/27/16 13:17 09/27/16 17:24 Bedside Glucose 75 89 111 100 Medications Medications Current Medications Apixaban (Eliquis) 2.5 mg BID PO Last administered on 09/27/16 10:40; Admin Dose 2.5 MG; Start 09/19/16 at 21:00 Ascorbic Acid (Vitamin C) 500 mg DAILY PO Last administered on 09/27/16 09:02 ; Admin Dose 500 MG; Start 09/20/16 at 09:00 Aspirin (Aspirin) 81 mg DAILY PO Last administered on 09/27/16 09:02; Admin Dose 81 MG; Start 09/20/16 at 09:00 Carvedilol (Coreg) 1.5625 mg BID PO Last administered on 09/22/16 20:47; Admin Dose 1.5625 MG; Start 09/19/16 at 21:00; Status Future Hold Digoxin (Digoxin) 0.125 mg Q2D@13 PO ; Start 09/21/16 at 13:00; Status Future Hold Pantoprazole (Protonix Iv) 40 mg BID@06,18 IV Last administered on 09/27/16 18 :06; Admin Dose 40 MG; Start 09/20/16 at 06:00 Furosemide 20 mg 20 mg DAILY@06 IV Last administered on 09/25/16 05:16; Admin Dose 20 MG; Start 09/20/16 at 06:00 Norepinephrine 16 mg/Dextrose 500 ml @ 1.87 mls/hr TITRATE IV Last administered on 09/26/16 04:40; Admin Dose 5.62 MLS/HR; Start 09/20/16 at 02:00 Midazolam HCl (Versed) 50 ml @ 1 mls/hr TITRATE IV Last administered on 15:03; Admin Dose 6 MLS/HR; Start 09/20/16 at 02:00 Insulin Aspart (Novolog Insulin Pen) NOVOLOG *MILD* ALGORI... Q4 SC Last administered on 09/24/16 21:16; Admin Dose 1 UNIT; Start 09/21/16 at 17:00 Miscellaneous Information 1 ea NOTE XX ; Start 09/21/16 at 14:00 Glucose (Glutose) 15 gm Q15M PRN PO DECREASED GLUCOSE; Start 09/21/16 at 14:00 Glucose (Glutose) 22.5 gm Q15M PRN PO DECREASED GLUCOSE; Start 09/21/16 at 14: 00 Dextrose (D50w Syringe) 25 ml Q15M PRN IV DECREASED GLUCOSE; Start 09/21/16 at 14:00 Dextrose (D50w Syringe) 50 ml Q15M PRN IV DECREASED GLUCOSE; Start 09/21/16 at 14:00 Glucagon (Glucagen) 1 mg Q15M PRN IM DECREASED GLUCOSE; Start 09/21/16 at 14:00 Glucose (Glutose) 15 gm Q15M PRN BUCCAL DECREASED GLUCOSE; Start 09/21/16 at 14 :00 IV Flush (NS 10 ml) 10 ml PRN PRN IV IV PROTOCOL; Start 09/22/16 at 18:30 Docusate Sodium (Colace Liquid Cup) 200 mg QHS NGT Last administered on 22:00; Admin Dose 200 MG; Start 09/24/16 at 21:00 Potassium Chloride (Potassium Chloride Pwd/Soln) 20 meq BID NGT Last administered on 09/27/16 09:02; Admin Dose 20 MEQ; Start 09/27/16 at 09:00 Lorazepam 1 mg 1 mg Q4H PRN IV AGITATION/ANXIETY; Start 09/27/16 at 17:30 Propofol (Diprivan) 100 ml @ 2.22 mls/hr Q12H IV Last administered on 15:30; Admin Dose 2.22 MLS/HR; Start 09/27/16 at 14:00 YANIRA HART MD Sep 27, 2016 18:26
[2016-09-27] MEDS: DOCUSATE SODIUM 10 MG/ML (10ML CUP) NGT SCH (21:03)
--- NOTE | 2016-09-27 22:30 | RADRPT ---
PROCEDURE: XR Chest. CLINICAL INDICATION: Intubated TECHNIQUE: Anterior chest x-ray. COMPARISON: 09/22/2016 FINDINGS: Endotracheal tube terminates 2.5 cm above the travis, unchanged. Right-sided Perma-Cath catheter demonstrates stable and satisfactory position. Nasogastric tube courses below the inferior margin exam, likely terminate in the stomach, unchanged. Single lead left AICD is unchanged from previous exam. Median sternotomy wires are again noted. Patchy bilateral air space opacities throughout both lungs, right greater than left are unchanged fr om previous exam. Small left pleural effusion is unchanged from previous exam. There is no evidence of pneumothorax. The heart size is large. There is atherosclerotic calcification of the aorta. The soft tissues are normal. Osseous structures are unremarkable. IMPRESSION: 1. Changes of congestive heart failure with cardiomegaly, pulmonary vascular congestion, interstiti al edema and small pleural effusion, unchanged. 2. Stable and satisfactory position of life support lines. RPTAT: HLDM .Boyd Ramirez MD, MD Date Time Electronically viewed and signed by .Boyd Ramirez MD, MD on 09/27/2016 22:30 .M/
[2016-09-28] VITALS (58 sets, daily range): BP systolic 84–113; BP diastolic 39–63; PULSE 60–73; RESP 12–28
[2016-09-28] MEDS: INSULIN ASPART [NOVOLOG] 3 ML PEN SC SCH ×6 (00:52→21:00)
[2016-09-28] MEDS: PROPOFOL 100 ML IV SCH ×2 (02:00→10:54)
[2016-09-28 05:54] LABS: ADD SCAN DIFF NO
[2016-09-28 06:02] LABS: BASOPHILS % 0.4 % (0.0-2.0); EOSINOPHILS # 0.2 10^3/ul (0.0-0.5); EOSINOPHILS % 4.2 % (0.0-7.0); HEMATOCRIT 27.1 % (42.0-52.0); HEMOGLOBIN 8.3 g/dl (14.0-18.0); LYMPHOCYTES # 0.7 10^3/ul (0.8-2.9); LYMPHOCYTES % 12.5 % (15.0-51.0); MEAN CORPUSCULAR HEMOGLOBIN 26.9 pg (29.0-33.0); MEAN CORPUSCULAR HGB CONC 30.6 g/dl (32.0-37.0); MEAN PLATELET VOLUME 11.2 fl (7.4-10.4); MONOCYTE # 0.4 10^3/ul (0.3-0.9); MONOCYTES % 6.5 % (0.0-11.0); NEUTROPHIL # 4.2 10^3/ul (1.6-7.5); NEUTROPHILS % 76.2 % (39.0-77.0); NUCLEATED RED BLOOD CELLS% 0.5 /100WBC (0.0-0.0); RED BLOOD COUNT 3.08 10^6/ul (4.70-6.10); RED CELL DISTRIBUTION WIDTH 21.4 % (11.5-14.5); WHITE BLOOD COUNT 5.5 10^3/ul (4.8-10.8)
[2016-09-28 06:19] LABS: PLATELET COUNT 125 10^3/UL (140-415); POTASSIUM 3.7 mmol/L (3.5-5.1)
[2016-09-28 06:22] LABS: CREATININE 1.83 mg/dl (0.61-1.24)
[2016-09-28 06:23] LABS: CALCIUM 8.7 mg/dl (8.4-10.2)
[2016-09-28] MEDS: PANTOPRAZOLE 40 MG INJ IV SCH ×2 (06:46→18:03)
[2016-09-28] MEDS: FUROSEMIDE 20 MG INJ IV SCH (06:48)
[2016-09-28] MEDS: ASPIRIN 81 MG TAB PO SCH (09:40)
[2016-09-28] MEDS: APIXABAN 5 MG TABLET PO SCH ×2 (09:41→20:56)
[2016-09-28] MEDS: ASCORBIC ACID 500 MG TAB PO SCH (09:41)
[2016-09-28] MEDS: POTASSIUM CHLORIDE 20 MEQ POWDER FOR ORAL SOLN NGT SCH ×2 (09:42→20:56)
--- NOTE | 2016-09-28 09:47 | RADRPT ---
PROCEDURE: XR Chest. CLINICAL INDICATION: Respiratory failure TECHNIQUE: Single frontal chest x-ray. COMPARISON: 09/27/2016 FINDINGS: ET tube terminates approximately 5 cm above the travis. Right IJ tunnel dialysis catheter, NG tube, right PICC line remain in satisfactory position. Left-sided single lead AICD device is in place. There is cardiomegaly with slight improvement of pulmonary edema. Retrocardiac opacity is again note d likely reflecting combination of small pleural effusion/atelectasis. There is aortic atherosclero sis. There are no large pleural effusions or pneumothoraces. There are postsurgical changes of medi an sternotomy. The osseous structures are intact. IMPRESSION: 1. Slight improvement of pulmonary vascular congestion/interstitial edema. 2. Tubes and lines and supporting devices remain in satisfactory position. 3. Cardiomegaly. Aortic atherosclerosis. RPTAT: AAEE .Courtney Nance MD, MD Date Time Electronically viewed and signed by .Courtney Nance MD, MD on 09/28/2016 09:47 .O/
--- NOTE | 2016-09-28 10:04 | CONS ---
Date/Time of Note Date/Time of Note DATE: 09/28/16 TIME: 10:01 Assessment/Plan Assessment/Plan Additional Assessment/Plan Chest x-ray was reviewed from today with which is showing mild bilateral pulmonary edema. Cardiomegaly is present. Pacemaker is identified in the left chest wall. Endotracheal tube is at an adequate level. Ventilator settings; AC of 16, tidal volume 500, PEEP of 5, 30% FiO2. Patient currently on propofol at 5 mics micrograms per minute. Assessment recommendations; 1. Patient admitted for recurrent respiratory failure due to flash pulmonary edema from underlying cardia myopathy, this is a 30 intubation in the last several weeks. 2. Coronary artery disease. Status post bypass surgery in the past. 3. Cardiac arrhythmia. Status post pacemaker implantation in the past as well. 4. End-stage renal disease, on hemodialysis. 5. Anemia, status post transfusion. Continue current treatment. Patient's family still contemplating tracheostomy. Prognosis remains poor on account of multiple comorbidities. Consultation Date/Type/Reason Admit Date/Time Sep 19, 2016 at 14:51 Type of Consultation: Pulmonary/critical care Referring Provider: THERESA RIVERA 24 HR Interval Summary Free Text/Dictation Patient condition remains critical. Still requiring full ventilator support. Patient also has been started on sedation and a low-dose because of mild anxiety. Has remained hemodynamically stable. General exam; elderly male, orally intubated, sedated. Currently in no distress. Exam/Review of Systems Vital Signs Vitals Vital Signs Date Time Temp Pulse Resp B/P Pulse Ox O2 Delivery O2 Flow Rate FiO2 09/28/16 08:30 65 25 09/28/16 07:47 100 30 09/28/16 07:00 96/47 Mechanical Ventilator 09/28/16 04:00 97.8 Intake and Output 09/27/16 09/27/16 09/28/16 15:00 23:00 07:00 Intake Total 350 ml 420.54 ml 324.44 ml Output Total 96 ml 62 ml 60 ml Balance 254 ml 358.54 ml 264.44 ml Exam HEENT exam is; supple neck, positive JVD. No lymphadenopathy. Midline trachea. No thyromegaly. Pupils are small bilaterally. Patient does have few remaining teeth. Chest examination; diminished but clear breath sounds. S1-S2 audible, irregular rhythm. Pacemaker left chest wall. There is a well-healed sternal scar. Abdomen examination; soft, non-distended. No organomegaly. Bowel sounds audible. Extremity examination; no peripheral edema. 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 Results Result Diagram: 09/28/16 0500 09/28/16 0500 Results 24 hrs Laboratory Tests Test 09/27/16 13:17 09/27/16 17:24 09/27/16 21:02 09/28/16 00:50 Bedside Glucose 111 100 107 101 Test 09/28/16 04:50 09/28/16 05:00 09/28/16 08:42 Bedside Glucose 100 141 White Blood Count 5.5 # Red Blood Count 3.08 L Hemoglobin 8.3 L Hematocrit 27.1 L Mean Corpuscular Volume 88.0 Mean Corpuscular Hemoglobin 26.9 L Mean Corpuscular Hemoglobin Concent 30.6 L Red Cell Distribution Width 21.4 H Platelet Count 125 #L Mean Platelet Volume 11.2 H Neutrophils % 76.2 Lymphocytes % 12.5 L Monocytes % 6.5 Eosinophils % 4.2 Basophils % 0.4 Nucleated Red Blood Cells % 0.5 H Neutrophils # 4.2 Lymphocytes # 0.7 L Monocytes # 0.4 Eosinophils # 0.2 Basophils # 0.0 Nucleated Red Blood Cells # 0.0 Sodium Level 146 H Potassium Level 3.7 Chloride Level 108 Carbon Dioxide Level 30 Anion Gap 12 Blood Urea Nitrogen 47 #H Creatinine 1.83 H Glucose Level 105 Calcium Level 8.7 Medications Medications Current Medications Apixaban (Eliquis) 2.5 mg BID PO Last administered on 09/28/16 09:41; Admin Dose 2.5 MG; Start 09/19/16 at 21:00 Ascorbic Acid (Vitamin C) 500 mg DAILY PO Last administered on 09/28/16 09:41; Admin Dose 500 MG; Start 09/20/16 at 09:00 Aspirin (Aspirin) 81 mg DAILY PO Last administered on 09/28/16 09:40; Admin Dose 81 MG; Start 09/20/16 at 09:00 Carvedilol (Coreg) 1.5625 mg BID PO Last administered on 09/22/16 20:47; Admin Dose 1.5625 MG; Start 09/19/16 at 21:00; Status Future Hold Digoxin (Digoxin) 0.125 mg Q2D@13 PO ; Start 09/21/16 at 13:00; Status Future Hold Pantoprazole (Protonix Iv) 40 mg BID@,18 IV Last administered on 09/28/16 06: 46; Admin Dose 40 MG; Start 09/20/16 at 06:00 Furosemide 20 mg 20 mg DAILY@06 IV Last administered on 09/28/16 06:48; Admin Dose 20 MG; Start 09/20/16 at 06:00 Norepinephrine 16 mg/Dextrose 500 ml @ 1.87 mls/hr TITRATE IV Last administered on 09/26/16 04:40; Admin Dose 5.62 MLS/HR; Start 09/20/16 at 02:00 Midazolam HCl (Versed) 50 ml @ 1 mls/hr TITRATE IV Last administered on 15:03; Admin Dose 6 MLS/HR; Start 09/20/16 at 02:00 Insulin Aspart (Novolog Insulin Pen) NOVOLOG *MILD* ALGORI... Q4 SC Last administered on 09/24/16 21:16; Admin Dose 1 UNIT; Start 09/21/16 at 17:00 Miscellaneous Information 1 ea NOTE XX ; Start 09/21/16 at 14:00 Glucose (Glutose) 15 gm Q15M PRN PO DECREASED GLUCOSE; Start 09/21/16 at 14:00 Glucose (Glutose) 22.5 gm Q15M PRN PO DECREASED GLUCOSE; Start 09/21/16 at 14: 00 Dextrose (D50w Syringe) 25 ml Q15M PRN IV DECREASED GLUCOSE; Start 09/21/16 at 14:00 Dextrose (D50w Syringe) 50 ml Q15M PRN IV DECREASED GLUCOSE; Start 09/21/16 at 14:00 Glucagon (Glucagen) 1 mg Q15M PRN IM DECREASED GLUCOSE; Start 09/21/16 at 14:00 Glucose (Glutose) 15 gm Q15M PRN BUCCAL DECREASED GLUCOSE; Start 09/21/16 at 14 :00 IV Flush (NS 10 ml) 10 ml PRN PRN IV IV PROTOCOL; Start 09/22/16 at 18:30 Docusate Sodium (Colace Liquid Cup) 200 mg QHS NGT Last administered on 21:03; Admin Dose 200 MG; Start 09/24/16 at 21:00 Potassium Chloride (Potassium Chloride Pwd/Soln) 20 meq BID NGT Last administered on 09/28/16 09:42; Admin Dose 20 MEQ; Start 09/27/16 at 09:00 Lorazepam 1 mg 1 mg Q4H PRN IV AGITATION/ANXIETY; Start 09/27/16 at 17:30 Propofol (Diprivan) 100 ml @ 2.22 mls/hr Q12H IV Last administered on 15:30; Admin Dose 2.22 MLS/HR; Start 09/27/16 at 14:00 ADAMARIS RAMIREZ September 28, 2016 10:04
--- NOTE | 2016-09-28 10:10 | PN ---
Date/Time of Note Date/Time of Note DATE: 09/28/16 TIME: 10:01 Assessment/Plan VTE Prophylaxis VTE Prophylaxis Intervention: other (eliquis) Lines/Catheters IV Catheter Type (from Nrs): PICC Line Central line still needed: Yes Urinary Cath still in place: Yes Reason Cath still needed: other (indicate) Assessment/Plan Assessment/Plan 1. Recurrent VDRF 2/2 #2 2. Endstage CHF with recurrent exacerbation 3. Chronic kidney disease on hemodialysis 3 times a week limited by hypotension 4. Shock ?cardiogenic r/o septic now off pressor support 5. Diabetes mellitus type 2 - ISS 6. Paroxysmal atrial fibrillation, rate controlled - monitor, BB, eliquis 7. 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 8. Chronic liver cirrhosis with coagulopathy and mild hyperbilirubinemia and transaminitis likely associated with chronic CHF - monitor 9. Severe debility. 10. 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 11. LE cellulitis and ulcerations ? PVD 12. Tube feeding PLAN: * Continue ICU care / vent mgt + weaning / pressor support/ albumin * per pulm team, may need trach (and PEG) as well * Family however not enthusiastic about trach or PEG, family meeting today / f/ u final decision * f/u renal rec's, HD as tolerated per Nephro * Patient high readmission risk even if extubated. Recommend home with hospice at discharge. CRITICAL CARE TIME: >35 mins Prognosis : very poor and guarded Subjective 24 Hr Interval Summary Free Text/Dictation Patient seen and examined. Remains intubated but alert and communicative wants ET tube removed and mittes off Exam/Review of Systems Vital Signs Vitals Vital Signs Date Time Temp Pulse Resp B/P Pulse Ox O2 Delivery O2 Flow Rate FiO2 09/28/16 08:30 65 25 09/28/16 07:47 100 30 09/28/16 07:00 96/47 Mechanical Ventilator 09/28/16 04:00 97.8 Intake and Output 09/27/16 09/27/16 09/28/16 15:00 23:00 07:00 Intake Total 350 ml 420.54 ml 324.44 ml Output Total 96 ml 62 ml 60 ml Balance 254 ml 358.54 ml 264.44 ml Exam Constitutional: alert Psych: confusion (??) Eyes: PERRL, icteric (mildly) ENMT: intubated Respiratory: diminished breath sounds, No wheezing Cardiovascular: irregular rhythm, murmurs/extra sounds Gastrointestinal: bowel sounds, non-tender, soft Extremities: edema Neurological: lethargic Skin: rash or lesions Results Result Diagram: 09/28/16 0500 09/28/16 0500 Results 24 hrs Laboratory Tests Test 09/27/16 13:17 09/27/16 17:24 09/27/16 21:02 09/28/16 00:50 Bedside Glucose 111 100 107 101 Test 09/28/16 04:50 09/28/16 05:00 09/28/16 08:42 Bedside Glucose 100 141 White Blood Count 5.5 # Red Blood Count 3.08 L Hemoglobin 8.3 L Hematocrit 27.1 L Mean Corpuscular Volume 88.0 Mean Corpuscular Hemoglobin 26.9 L Mean Corpuscular Hemoglobin Concent 30.6 L Red Cell Distribution Width 21.4 H Platelet Count 125 #L Mean Platelet Volume 11.2 H Neutrophils % 76.2 Lymphocytes % 12.5 L Monocytes % 6.5 Eosinophils % 4.2 Basophils % 0.4 Nucleated Red Blood Cells % 0.5 H Neutrophils # 4.2 Lymphocytes # 0.7 L Monocytes # 0.4 Eosinophils # 0.2 Basophils # 0.0 Nucleated Red Blood Cells # 0.0 Sodium Level 146 H Potassium Level 3.7 Chloride Level 108 Carbon Dioxide Level 30 Anion Gap 12 Blood Urea Nitrogen 47 #H Creatinine 1.83 H Glucose Level 105 Calcium Level 8.7 Medications Medications Current Medications Apixaban (Eliquis) 2.5 mg BID PO Last administered on 09/28/16 09:41; Admin Dose 2.5 MG; Start 09/19/16 at 21:00 Ascorbic Acid (Vitamin C) 500 mg DAILY PO Last administered on 09/28/16 09:41; Admin Dose 500 MG; Start 09/20/16 at 09:00 Aspirin (Aspirin) 81 mg DAILY PO Last administered on 09/28/16 09:40; Admin Dose 81 MG; Start 09/20/16 at 09:00 Carvedilol (Coreg) 1.5625 mg BID PO Last administered on 09/22/16 20:47; Admin Dose 1.5625 MG; Start 09/19/16 at 21:00; Status Future Hold Digoxin (Digoxin) 0.125 mg Q2D@13 PO ; Start 09/21/16 at 13:00; Status Future Hold Pantoprazole (Protonix Iv) 40 mg BID@,18 IV Last administered on 09/28/16 06: 46; Admin Dose 40 MG; Start 09/20/16 at 06:00 Furosemide 20 mg 20 mg DAILY@06 IV Last administered on 09/28/16 06:48; Admin Dose 20 MG; Start 09/20/16 at 06:00 Norepinephrine 16 mg/Dextrose 500 ml @ 1.87 mls/hr TITRATE IV Last administered on 09/26/16 04:40; Admin Dose 5.62 MLS/HR; Start 09/20/16 at 02:00 Midazolam HCl (Versed) 50 ml @ 1 mls/hr TITRATE IV Last administered on 15:03; Admin Dose 6 MLS/HR; Start 09/20/16 at 02:00 Insulin Aspart (Novolog Insulin Pen) NOVOLOG *MILD* ALGORI... Q4 SC Last administered on 09/24/16 21:16; Admin Dose 1 UNIT; Start 09/21/16 at 17:00 Miscellaneous Information 1 ea NOTE XX ; Start 09/21/16 at 14:00 Glucose (Glutose) 15 gm Q15M PRN PO DECREASED GLUCOSE; Start 09/21/16 at 14:00 Glucose (Glutose) 22.5 gm Q15M PRN PO DECREASED GLUCOSE; Start 09/21/16 at 14: 00 Dextrose (D50w Syringe) 25 ml Q15M PRN IV DECREASED GLUCOSE; Start 09/21/16 at 14:00 Dextrose (D50w Syringe) 50 ml Q15M PRN IV DECREASED GLUCOSE; Start 09/21/16 at 14:00 Glucagon (Glucagen) 1 mg Q15M PRN IM DECREASED GLUCOSE; Start 09/21/16 at 14:00 Glucose (Glutose) 15 gm Q15M PRN BUCCAL DECREASED GLUCOSE; Start 09/21/16 at 14 :00 IV Flush (NS 10 ml) 10 ml PRN PRN IV IV PROTOCOL; Start 09/22/16 at 18:30 Docusate Sodium (Colace Liquid Cup) 200 mg QHS NGT Last administered on 21:03; Admin Dose 200 MG; Start 09/24/16 at 21:00 Potassium Chloride (Potassium Chloride Pwd/Soln) 20 meq BID NGT Last administered on 09/28/16 09:42; Admin Dose 20 MEQ; Start 09/27/16 at 09:00 Lorazepam 1 mg 1 mg Q4H PRN IV AGITATION/ANXIETY; Start 09/27/16 at 17:30 Propofol (Diprivan) 100 ml @ 2.22 mls/hr Q12H IV Last administered on 15:30; Admin Dose 2.22 MLS/HR; Start 09/27/16 at 14:00 Procedures Procedures PROCEDURE: XR Chest. CLINICAL INDICATION: Respiratory failure TECHNIQUE: Single frontal chest x-ray. COMPARISON: 09/27/2016 FINDINGS: ET tube terminates approximately 5 cm above the travis. Right IJ tunnel dialysis catheter, NG tube, right PICC line remain in satisfactory position. Left-sided single lead AICD device is in place. There is cardiomegaly with slight improvement of pulmonary edema. Retrocardiac opacity is again noted likely reflecting combination of small pleural effusion/atelectasis. There is aortic atherosclerosis. There are no large pleural effusions or pneumothoraces. There are postsurgical changes of median sternotomy. The osseous structures are intact. IMPRESSION: 1. Slight improvement of pulmonary vascular congestion/interstitial edema. 2. Tubes and lines and supporting devices remain in satisfactory position. 3. Cardiomegaly. Aortic atherosclerosis. RPTAT: AAEE .Courtney Nance MD, MD Date Time Electronically viewed and signed by .Courtney Nance MD, on 09/28/2016 09:47 .O/ CC: ADAMARIS RAMIREZ BOLATITO M. September 28, 2016 10:10
[2016-09-28 10:33] LABS: AADO2 Arterial 68.2 mmHg (7.0-24.0); Allen Test ACCEPTAB; Arterial Base Excess 4.7 mmol/L (-3.0-3); Arterial COHb 0.4 % (0.0-3.0); Arterial Fraction of Oxyhgb 96.7 % (93.0-99.0); Arterial HCO3 28.2 mmol/L (22.0-26.0); Arterial MetHb 0.5 % (0.0-1.5); Arterial Total Hemglobin 9.7 g/dl (12.0-18.0); MODE VENT - AC
[2016-09-28] MEDS: morphine 2 MG INJ IV PRN (11:56)
--- NOTE | 2016-09-28 13:14 | CONS ---
Date/Time of Note Date/Time of Note DATE: 09/28/16 TIME: 13:10 Assessment/Plan Assessment/Plan Chief Complaint/Hosp Course IMPRESSION: 1. Hypotension/shock state, question cardiogenic versus septic unlikely as patient had a low EF with negative cardiac enzymes-Now off Levo 2. Congestive heart failure, systolic, acute on chronic. 3. Coronary artery disease, status post coronary artery bypass graft surgery. 4. Chronic kidney disease on hemodialysis. 5. Coagulopathy secondary to Eliquis. 6. History of paroxysmal atrial fibrillation. 7. Likely sepsis. 8. Elevated digoxin level. 9. Anemia, worsening slight Recc: -Tele -Contnue asa -recheck digoxin level -Continue eliquis -HD for volume removal as tolerated only -Continue abx's and f/u cx data -pnding family discussion scheduled for today to discuss direction of care Problems: Consultation Date/Type/Reason Admit Date/Time Sep 19, 2016 at 14:51 Initial Consult Date 09/23/2016 Type of Consultation: Cardiology Reason for Consultation cardiomyopathy/CHF Referring Provider: THERESA RIVERA Exam/Review of Systems Vital Signs Vitals Vital Signs Date Time Temp Pulse Resp B/P Pulse Ox O2 Delivery O2 Flow Rate FiO2 09/28/16 11:03 65 16 100 30 09/28/16 11:00 90/43 Mechanical Ventilator 09/28/16 08:00 97.5 Intake and Output 09/27/16 09/27/16 09/28/16 15:00 23:00 07:00 Intake Total 350 ml 420.54 ml 324.44 ml Output Total 96 ml 62 ml 60 ml Balance 254 ml 358.54 ml 264.44 ml Exam Review of Systems: CONSTITUTIONAL: No fevers, chills. PULMONARY: intubated CARDIOVASCULAR: No chest pain/palpitations GASTROINTESTINAL: No nausea/vomiting. GENITOURINARY: No hematuria/dysuria. MUSCULOSKELETAL: No myagias/arthalgias. PSYCHIATRIC: No documented depression. NEUROLOGIC: lethargic Constitutional: other (sedated but easily arousable) Psych: no complaints Head: normocephalic ENMT: mucosa pink and moist Neck: jvd (9 cm water), supple Respiratory: diminished breath sounds (at bases/B) Cardiovascular: regular rate and rhythm Gastrointestinal: non-tender, soft Musculoskeletal: muscle tone (normal) Extremities: edema (none) Neurological: lethargic, other (No focal deficits) Results Result Diagram: 09/28/16 0500 09/28/16 0500 Results 24 hrs Laboratory Tests Test 09/27/16 13:17 09/27/16 17:24 09/27/16 21:02 09/28/16 00:50 Bedside Glucose 111 100 107 101 Test 09/28/16 04:50 09/28/16 05:00 09/28/16 07:00 09/28/16 08:42 Bedside Glucose 100 141 White Blood Count 5.5 # Red Blood Count 3.08 L Hemoglobin 8.3 L Hematocrit 27.1 L Mean Corpuscular Volume 88.0 Mean Corpuscular Hemoglobin 26.9 L Mean Corpuscular Hemoglobin Concent 30.6 L Red Cell Distribution Width 21.4 H Platelet Count 125 #L Mean Platelet Volume 11.2 H Neutrophils % 76.2 Lymphocytes % 12.5 L Monocytes % 6.5 Eosinophils % 4.2 Basophils % 0.4 Nucleated Red Blood Cells % 0.5 H Neutrophils # 4.2 Lymphocytes # 0.7 L Monocytes # 0.4 Eosinophils # 0.2 Basophils # 0.0 Nucleated Red Blood Cells # 0.0 Sodium Level 146 H Potassium Level 3.7 Chloride Level 108 Carbon Dioxide Level 30 Anion Gap 12 Blood Urea Nitrogen 47 #H Creatinine 1.83 H Glucose Level 105 Calcium Level 8.7 Blood Gas Specimen Source Blood arterial Arterial Blood Date Drawn 09/28/2016 10:15:00 AM Arterial Blood pH (Temp corrected) 7.494 H Arterial Blood pCO2 (Temp correct) 37.5 Arterial Blood pO2 (Temp corrected) 101.6 H Arterial Blood HCO3 28.2 H Arterial Blood Base Excess 4.7 H Arterial Blood Oxygen Saturation 97.6 Sebastien Test ACCEPTAB Arterial Blood Gas Puncture Site Right Radial Arterial Blood Carboxyhemoglobin 0.4 Arterial Blood Methemoglobin 0.5 Blood Gas A-a O2 Differential 68.2 H Oxyhemoglobin Percent 96.7 Total Hemoglobin 9.7 L Blood Gas Temperature 37.0 Blood Gas Respiration Rate 16.0 Blood Gas Actual Respiration Rate 16 Blood Gas Modality VENT - AC FiO2 30.0 Blood Gas Tidal Volume 500.0 Blood Gas Low PEEP Setting 5.0 Blood Gas Notified Whom JLD Blood Gas Notified Time 09/28/2016 10:33:41 AM Test 09/28/16 10:01 09/28/16 12:45 Bedside Glucose 108 96 Medications Medications Current Medications Apixaban (Eliquis) 2.5 mg BID PO Last administered on 09/28/16 09:41; Admin Dose 2.5 MG; Start 09/19/16 at 21:00 Ascorbic Acid (Vitamin C) 500 mg DAILY PO Last administered on 09/28/16 09:41; Admin Dose 500 MG; Start 09/20/16 at 09:00 Aspirin (Aspirin) 81 mg DAILY PO Last administered on 09/28/16 09:40; Admin Dose 81 MG; Start 09/20/16 at 09:00 Carvedilol (Coreg) 1.5625 mg BID PO Last administered on 09/22/16 20:47; Admin Dose 1.5625 MG; Start 09/19/16 at 21:00; Status Future Hold Digoxin (Digoxin) 0.125 mg Q2D@13 PO ; Start 09/21/16 at 13:00; Status Future Hold Pantoprazole (Protonix Iv) 40 mg BID@06,18 IV Last administered on 09/28/16 06: 46; Admin Dose 40 MG; Start 09/20/16 at 06:00 Furosemide 20 mg 20 mg DAILY@06 IV Last administered on 09/28/16 06:48; Admin Dose 20 MG; Start 09/20/16 at 06:00 Norepinephrine 16 mg/Dextrose 500 ml @ 1.87 mls/hr TITRATE IV Last administered on 09/26/16 04:40; Admin Dose 5.62 MLS/HR; Start 09/20/16 at 02:00 Midazolam HCl (Versed) 50 ml @ 1 mls/hr TITRATE IV Last administered on 15:03; Admin Dose 6 MLS/HR; Start 09/20/16 at 02:00 Insulin Aspart (Novolog Insulin Pen) NOVOLOG *MILD* ALGORI... Q4 SC Last administered on 09/24/16 21:16; Admin Dose 1 UNIT; Start 09/21/16 at 17:00 Miscellaneous Information 1 ea NOTE XX ; Start 09/21/16 at 14:00 Glucose (Glutose) 15 gm Q15M PRN PO DECREASED GLUCOSE; Start 09/21/16 at 14:00 Glucose (Glutose) 22.5 gm Q15M PRN PO DECREASED GLUCOSE; Start 09/21/16 at 14: 00 Dextrose (D50w Syringe) 25 ml Q15M PRN IV DECREASED GLUCOSE; Start 09/21/16 at 14:00 Dextrose (D50w Syringe) 50 ml Q15M PRN IV DECREASED GLUCOSE; Start 09/21/16 at 14:00 Glucagon (Glucagen) 1 mg Q15M PRN IM DECREASED GLUCOSE; Start 09/21/16 at 14:00 Glucose (Glutose) 15 gm Q15M PRN BUCCAL DECREASED GLUCOSE; Start 09/21/16 at 14 :00 IV Flush (NS 10 ml) 10 ml PRN PRN IV IV PROTOCOL; Start 09/22/16 at 18:30 Docusate Sodium (Colace Liquid Cup) 200 mg QHS NGT Last administered on 21:03; Admin Dose 200 MG; Start 09/24/16 at 21:00 Potassium Chloride (Potassium Chloride Pwd/Soln) 20 meq BID NGT Last administered on 09/28/16 09:42; Admin Dose 20 MEQ; Start 09/27/16 at 09:00 Lorazepam 1 mg 1 mg Q4H PRN IV AGITATION/ANXIETY; Start 09/27/16 at 17:30 Propofol (Diprivan) 100 ml @ 2.22 mls/hr Q12H IV Last administered on 10:54; Admin Dose 3.108 MLS/HR; Start 09/27/16 at 14:00 Morphine Sulfate (morphine) 2 mg Q4H PRN IV PAIN Last administered on 09/28/16 11:56; Admin Dose 2 MG; Start 09/28/16 at 11:30 POLI SAN September 28, 2016 13:14
--- NOTE | 2016-09-28 13:59 | PN ---
DATE: 09/28/2016 SUBJECTIVE: No acute events overnight. The patient is intubated, awake, denies pain. Family at be dside. He looks comfortable. VITAL SIGNS: Temperature 97.8, pulse 64, respirations 16, blood pressure 96/47. Saturation 100% on 30 FIO2. WBC 5.5, H and H 8.8 and 27.1, platelets 125, neutrophils 76.2, BUN 47, creatinine 1.83. INDWELLINGS: Right chest Perm-A-Cath, PICC line placed on 09/22/2016. DIAGNOSTICS: Chest x-ray revealed improved pulmonary vascular congestion. PHYSICAL EXAMINATION: GENERAL: This is well-developed, fragile, elderly man who is lying comfortably in bed. HEENT: Head atraumatic, normocephalic. Sclerae anicteric. Buccal mucosa dry. NECK: Supple, trachea midline. CHEST: Rise symmetrical. Breath sounds diminished to bases. HEART: S1, S2. ABDOMEN: Soft. Bowel tones present. EXTREMITIES: Without cyanosis. Bilateral lower extremity dressing intact. ASSESSMENT: 1. Status post shock. 2. Acute respiratory failure secondary to fluid overload, possibly aspiration event, status post an tibiotics. 3. Diabetes. 4. Bilateral lower extremities and diabetic ulcerations. 5. Chronic cirrhosis. 6. History of permanent pacemaker placement. PLAN: The patient is hemodynamically stable, status post antibiotics. He is being followed by [facility]. Possible tracheostomy if family decides. Dictated By: ADA MICHELLE PRACTICE MANAGEMENT CONSULTANT for [employer]HANA Conf#: [id number] DID#: [id number]
--- NOTE | 2016-09-28 18:39 | CONS ---
Date/Time of Note Date/Time of Note DATE: 09/28/16 TIME: 18:39 Assessment/Plan Assessment/Plan Chief Complaint/Hosp Course IMPRESSION: 1. Acute hypoxic respiratory failure.on vent 2. Patient has a chronic systolic heart failure. 3. Chronic kidney disease requiring hemodialysis. 4. History of acute tubular necrosis. 5. Cardiomyopathy. 6. Anemia. 7. Neutropenia. 8. The patient has hypoalbuminemia. 9. Patient has ventilator dependent respiratory failure. 10. History of sepsis. 11. Septic shock. 12 hypokalemia better plan continue hd weaning d/w family hd Problems: Consultation Date/Type/Reason Admit Date/Time Sep 19, 2016 at 14:51 Type of Consultation: renal Referring Provider: THERESA RIVERA 24 HR Interval Summary Constitutional: other (awake) Exam/Review of Systems Vital Signs Vitals Vital Signs Date Time Temp Pulse Resp B/P Pulse Ox O2 Delivery O2 Flow Rate FiO2 09/28/16 18:00 61 21 95/49 100 Mechanical Ventilator 09/28/16 17:35 30 09/28/16 16:00 98.4 Intake and Output 09/27/16 09/27/16 09/28/16 15:00 23:00 07:00 Intake Total 350 ml 420.54 ml 324.44 ml Output Total 96 ml 62 ml 60 ml Balance 254 ml 358.54 ml 264.44 ml Exam Respiratory: clear to auscultation Cardiovascular: regular rate and rhythm Gastrointestinal: soft Musculoskeletal: nl extremities to inspection Results Result Diagram: 09/28/16 0500 09/28/16 0500 Results 24 hrs Laboratory Tests Test 09/27/16 21:02 09/28/16 00:50 09/28/16 04:50 09/28/16 05:00 Bedside Glucose 107 101 100 White Blood Count 5.5 # Red Blood Count 3.08 L Hemoglobin 8.3 L Hematocrit 27.1 L Mean Corpuscular Volume 88.0 Mean Corpuscular Hemoglobin 26.9 L Mean Corpuscular Hemoglobin Concent 30.6 L Red Cell Distribution Width 21.4 H Platelet Count 125 #L Mean Platelet Volume 11.2 H Neutrophils % 76.2 Lymphocytes % 12.5 L Monocytes % 6.5 Eosinophils % 4.2 Basophils % 0.4 Nucleated Red Blood Cells % 0.5 H Neutrophils # 4.2 Lymphocytes # 0.7 L Monocytes # 0.4 Eosinophils # 0.2 Basophils # 0.0 Nucleated Red Blood Cells # 0.0 Sodium Level 146 H Potassium Level 3.7 Chloride Level 108 Carbon Dioxide Level 30 Anion Gap 12 Blood Urea Nitrogen 47 #H Creatinine 1.83 H Glucose Level 105 Calcium Level 8.7 Test 09/28/16 07:00 09/28/16 08:42 09/28/16 10:01 09/28/16 12:45 Blood Gas Specimen Source Blood arterial Arterial Blood Date Drawn 09/28/2016 10:15:00 AM Arterial Blood pH (Temp corrected) 7.494 H Arterial Blood pCO2 (Temp correct) 37.5 Arterial Blood pO2 (Temp corrected) 101.6 H Arterial Blood HCO3 28.2 H Arterial Blood Base Excess 4.7 H Arterial Blood Oxygen Saturation 97.6 Sebastien Test ACCEPTAB Arterial Blood Gas Puncture Site Right Radial Arterial Blood Carboxyhemoglobin 0.4 Arterial Blood Methemoglobin 0.5 Blood Gas A-a O2 Differential 68.2 H Oxyhemoglobin Percent 96.7 Total Hemoglobin 9.7 L Blood Gas Temperature 37.0 Blood Gas Respiration Rate 16.0 Blood Gas Actual Respiration Rate 16 Blood Gas Modality VENT - AC FiO2 30.0 Blood Gas Tidal Volume 500.0 Blood Gas Low PEEP Setting 5.0 Blood Gas Notified Whom JLD Blood Gas Notified Time 09/28/2016 10:33:41 AM Bedside Glucose 141 108 96 Test 09/28/16 14:22 09/28/16 17:04 Digoxin Level 0.8 L Bedside Glucose 95 Medications Medications Current Medications Apixaban (Eliquis) 2.5 mg BID PO Last administered on 09/28/16 09:41; Admin Dose 2.5 MG; Start 09/19/16 at 21:00 Ascorbic Acid (Vitamin C) 500 mg DAILY PO Last administered on 09/28/16 09:41; Admin Dose 500 MG; Start 09/20/16 at 09:00 Aspirin (Aspirin) 81 mg DAILY PO Last administered on 09/28/16 09:40; Admin Dose 81 MG; Start 09/20/16 at 09:00 Carvedilol (Coreg) 1.5625 mg BID PO Last administered on 09/22/16 20:47; Admin Dose 1.5625 MG; Start 09/19/16 at 21:00; Status Future Hold Digoxin (Digoxin) 0.125 mg Q2D@13 PO ; Start 09/21/16 at 13:00; Status Future Hold Pantoprazole (Protonix Iv) 40 mg BID@,18 IV Last administered on 09/28/16 18: 03; Admin Dose 40 MG; Start 09/20/16 at 06:00 Furosemide 20 mg 20 mg DAILY@06 IV Last administered on 09/28/16 06:48; Admin Dose 20 MG; Start 09/20/16 at 06:00 Norepinephrine 16 mg/Dextrose 500 ml @ 1.87 mls/hr TITRATE IV Last administered on 09/26/16 04:40; Admin Dose 5.62 MLS/HR; Start 09/20/16 at 02:00 Midazolam HCl (Versed) 50 ml @ 1 mls/hr TITRATE IV Last administered on 15:03; Admin Dose 6 MLS/HR; Start 09/20/16 at 02:00 Insulin Aspart (Novolog Insulin Pen) NOVOLOG *MILD* ALGORI... Q4 SC Last administered on 09/24/16 21:16; Admin Dose 1 UNIT; Start 09/21/16 at 17:00 Miscellaneous Information 1 ea NOTE XX ; Start 09/21/16 at 14:00 Glucose (Glutose) 15 gm Q15M PRN PO DECREASED GLUCOSE; Start 09/21/16 at 14:00 Glucose (Glutose) 22.5 gm Q15M PRN PO DECREASED GLUCOSE; Start 09/21/16 at 14: 00 Dextrose (D50w Syringe) 25 ml Q15M PRN IV DECREASED GLUCOSE; Start 09/21/16 at 14:00 Dextrose (D50w Syringe) 50 ml Q15M PRN IV DECREASED GLUCOSE; Start 09/21/16 at 14:00 Glucagon (Glucagen) 1 mg Q15M PRN IM DECREASED GLUCOSE; Start 09/21/16 at 14:00 Glucose (Glutose) 15 gm Q15M PRN BUCCAL DECREASED GLUCOSE; Start 09/21/16 at 14 :00 IV Flush (NS 10 ml) 10 ml PRN PRN IV IV PROTOCOL; Start 09/22/16 at 18:30 Docusate Sodium (Colace Liquid Cup) 200 mg QHS NGT Last administered on 21:03; Admin Dose 200 MG; Start 4/27/17 at 21:00 Potassium Chloride (Potassium Chloride Pwd/Soln) 20 meq BID NGT Last administered on 09/28/16 09:42; Admin Dose 20 MEQ; Start 09/27/16 at 09:00 Lorazepam 1 mg 1 mg Q4H PRN IV AGITATION/ANXIETY; Start 09/27/16 at 17:30 Propofol (Diprivan) 100 ml @ 2.22 mls/hr Q12H IV Last administered on 10:54; Admin Dose 3.108 MLS/HR; Start 09/27/16 at 14:00 Morphine Sulfate (morphine) 2 mg Q4H PRN IV PAIN Last administered on 09/28/16 11:56; Admin Dose 2 MG; Start 09/28/16 at 11:30 Povidone Iodine (Povidone-Iodine) 1 applic DAILY TOP ; Start 09/29/16 at 09:00 YANIRA HART MD September 28, 2016 18:39
[2016-09-28] MEDS ORDERED: VANCOMYCIN 1 GM in NS 250 ML IVPB SCH (20:00)
[2016-09-28] MEDS: DOCUSATE SODIUM 10 MG/ML (10ML CUP) NGT SCH (20:56)
[2016-09-28] MEDS: COLLAGENASE 30 GM TUBE TOP SCH (22:52)
[2016-09-28] MEDS: POVIDONE IODINE 10% 28.4 GM OINT TOP SCH (22:52)
[2016-09-29] VITALS (60 sets, daily range): BP systolic 84–138; BP diastolic 38–87; PULSE 60–66; RESP 12–34
[2016-09-29] MEDS: INSULIN ASPART [NOVOLOG] 3 ML PEN SC SCH ×5 (01:00→23:52)
[2016-09-29] MEDS: PROPOFOL 100 ML IV SCH ×2 (01:53→17:13)
[2016-09-29 04:50] LABS: ADD SCAN DIFF NO
[2016-09-29 04:58] LABS: BASOPHILS % 0.4 % (0.0-2.0); EOSINOPHILS # 0.2 10^3/ul (0.0-0.5); EOSINOPHILS % 3.7 % (0.0-7.0); HEMATOCRIT 28.2 % (42.0-52.0); HEMOGLOBIN 8.2 g/dl (14.0-18.0); LYMPHOCYTES # 0.8 10^3/ul (0.8-2.9); MEAN CORPUSCULAR HEMOGLOBIN 25.9 pg (29.0-33.0); MEAN CORPUSCULAR HGB CONC 29.1 g/dl (32.0-37.0); MEAN CORPUSCULAR VOLUME 89.2 fl (82.0-101.0); MEAN PLATELET VOLUME 12.1 fl (7.4-10.4); MONOCYTE # 0.4 10^3/ul (0.3-0.9); MONOCYTES % 6.9 % (0.0-11.0); NEUTROPHIL # 3.7 10^3/ul (1.6-7.5); NEUTROPHILS % 73.4 % (39.0-77.0); NUCLEATED RED BLOOD CELLS% 0.6 /100WBC (0.0-0.0); RED BLOOD COUNT 3.16 10^6/ul (4.70-6.10); RED CELL DISTRIBUTION WIDTH 21.7 % (11.5-14.5); WHITE BLOOD COUNT 5.1 10^3/ul (4.8-10.8)
[2016-09-29 05:04] LABS: PLATELET COUNT 129 10^3/UL (140-415)
[2016-09-29 05:16] LABS: ALBUMIN 2.8 g/dl (3.3-4.9); POTASSIUM 3.6 mmol/L (3.5-5.1)
[2016-09-29 05:19] LABS: CREATININE 1.5 mg/dl (0.61-1.24)
[2016-09-29] MEDS: PANTOPRAZOLE 40 MG INJ IV SCH ×2 (05:19→18:17)
[2016-09-29 05:20] LABS: CALCIUM 9.1 mg/dl (8.4-10.2)
[2016-09-29] MEDS: FUROSEMIDE 20 MG INJ IV SCH (05:21)
[2016-09-29] MEDS: ASPIRIN 81 MG TAB PO SCH (09:01)
[2016-09-29] MEDS: ASCORBIC ACID 500 MG TAB PO SCH (09:01)
[2016-09-29] MEDS: APIXABAN 5 MG TABLET PO SCH ×2 (09:01→20:30)
[2016-09-29] MEDS: POTASSIUM CHLORIDE 20 MEQ POWDER FOR ORAL SOLN NGT SCH ×2 (09:01→20:31)
[2016-09-29] MEDS: COLLAGENASE 30 GM TUBE TOP SCH (09:02)
--- NOTE | 2016-09-29 09:26 | CONS ---
Date/Time of Note Date/Time of Note DATE: 09/29/16 TIME: 09:22 Assessment/Plan Assessment/Plan Additional Assessment/Plan Ventilator settings; AC of 16, tidal volume 500, PEEP of 5, 30% FiO2. Patient currently on propofol at 6 mics per kilogram per minute. Assessment recommendations; 1. Patient admitted for recurrent respiratory failure due to flash pulmonary edema from underlying severe cardia myopathy. 2. History of coronary artery disease, status post bypass surgery in the past. 3. Anemia. Status post blood transfusion. No overt bleeding noted. 4. History of cardiac arrhythmia, status post pacemaker implantation in the past. 5. Renal failure, on hemodialysis. 6. Persistent mild pulmonary edema. Patient's family still has not decided about tracheostomy. They also have not addressed CODE STATUS. The patient is at high risk of developing respiratory failure again if extubated. In the absence of a clear directive from the family regarding CODE STATUS I would not recommend giving the patient a weaning trial from ventilator. I have had had numerous discussions with the family regarding the need for tracheostomy. Prognosis remains poor. Consultation Date/Type/Reason Admit Date/Time Sep 19, 2016 at 14:51 Type of Consultation: Pulmonary/critical care Referring Provider: THERESA RIVERA 24 HR Interval Summary Free Text/Dictation Patient condition remains critical but stable. Patient is completely awake. Has remained hemodynamically stable. General exam; elderly male, orally intubated, awake, currently in no distress. Exam/Review of Systems Vital Signs Vitals Vital Signs Date Time Temp Pulse Resp B/P Pulse Ox O2 Delivery O2 Flow Rate FiO2 09/29/16 07:47 60 17 100 30 09/29/16 06:30 93/43 09/29/16 06:00 Mechanical Ventilator 09/29/16 04:00 98.9 Intake and Output 09/28/16 09/28/16 09/29/16 15:00 23:00 07:00 Intake Total 670.40 ml 370.84 ml 328.62 ml Output Total 1881 ml 120 ml 155 ml Balance -1210.60 ml 250.84 ml 173.62 ml Exam HEENT exam is; supple neck, positive JVD. No lymphadenopathy. Midline trachea. No thyromegaly. Orally intubated. Patient has a multiple carious teeth. Pupils are small bilaterally. No neck masses. Chest examination; diminished but clear vessel. S1-S2 audible, paced rhythm. There is a well-healed sternal scar. Abdomen examination; soft, nondistended, no organomegaly. Bowel sounds audible. Extremity examination; trace edema. Patient has a multiple ecchymosis involving all 4 extremities. PACE ANALYST examination; patient is readily arousable and mildly sedated. Results Result Diagram: 09/29/16 0405 09/29/16 0405 Results 24 hrs Laboratory Tests Test 09/28/16 10:01 09/28/16 12:45 09/28/16 14:22 09/28/16 17:04 Bedside Glucose 108 96 95 Digoxin Level 0.8 L Test 09/28/16 20:57 09/29/16 01:10 09/29/16 04:05 09/29/16 05:18 Bedside Glucose 116 111 116 White Blood Count 5.1 Red Blood Count 3.16 L Hemoglobin 8.2 L Hematocrit 28.2 L Mean Corpuscular Volume 89.2 Mean Corpuscular Hemoglobin 25.9 L Mean Corpuscular Hemoglobin Concent 29.1 L Red Cell Distribution Width 21.7 H Platelet Count 129 L Mean Platelet Volume 12.1 H Neutrophils % 73.4 Lymphocytes % 15.0 Monocytes % 6.9 Eosinophils % 3.7 Basophils % 0.4 Nucleated Red Blood Cells % 0.6 H Neutrophils # 3.7 Lymphocytes # 0.8 Monocytes # 0.4 Eosinophils # 0.2 Basophils # 0.0 Nucleated Red Blood Cells # 0.0 Sodium Level 151 H Potassium Level 3.6 Chloride Level 112 H Carbon Dioxide Level 29 Anion Gap 14 Blood Urea Nitrogen 34 #H Creatinine 1.50 H Glucose Level 114 Calcium Level 9.1 Phosphorus Level 1.0 L Magnesium Level 2.0 Albumin 2.8 L Medications Medications Current Medications Apixaban (Eliquis) 2.5 mg BID PO Last administered on 09/29/16 09:01; Admin Dose 2.5 MG; Start 09/19/16 at 21:00 Ascorbic Acid (Vitamin C) 500 mg DAILY PO Last administered on 09/29/16 09:01; Admin Dose 500 MG; Start 09/20/16 at 09:00 Aspirin (Aspirin) 81 mg DAILY PO Last administered on 09/29/16 09:01; Admin Dose 81 MG; Start 09/20/16 at 09:00 Carvedilol (Coreg) 1.5625 mg BID PO Last administered on 09/22/16 20:47; Admin Dose 1.5625 MG; Start 09/19/16 at 21:00; Status Future Hold Digoxin (Digoxin) 0.125 mg Q2D@13 PO ; Start 09/21/16 at 13:00; Status Future Hold Pantoprazole (Protonix Iv) 40 mg BID@06,18 IV Last administered on 09/29/16 05: 19; Admin Dose 40 MG; Start 09/20/16 at 06:00 Furosemide 20 mg 20 mg DAILY@06 IV Last administered on 09/29/16 05:21; Admin Dose 20 MG; Start 09/20/16 at 06:00 Norepinephrine 16 mg/Dextrose 500 ml @ 1.87 mls/hr TITRATE IV Last administered on 09/26/16 04:40; Admin Dose 5.62 MLS/HR; Start 09/20/16 at 02:00 Midazolam HCl (Versed) 50 ml @ 1 mls/hr TITRATE IV Last administered on 15:03; Admin Dose 6 MLS/HR; Start 09/20/16 at 02:00 Miscellaneous Information 1 ea NOTE XX ; Start 09/21/16 at 14:00 Glucose (Glutose) 15 gm Q15M PRN PO DECREASED GLUCOSE; Start 09/21/16 at 14:00 Glucose (Glutose) 22.5 gm Q15M PRN PO DECREASED GLUCOSE; Start 09/21/16 at 14: 00 Dextrose (D50w Syringe) 25 ml Q15M PRN IV DECREASED GLUCOSE; Start 09/21/16 at 14:00 Dextrose (D50w Syringe) 50 ml Q15M PRN IV DECREASED GLUCOSE; Start 09/21/16 at 14:00 Glucagon (Glucagen) 1 mg Q15M PRN IM DECREASED GLUCOSE; Start 09/21/16 at 14:00 Glucose (Glutose) 15 gm Q15M PRN BUCCAL DECREASED GLUCOSE; Start 09/21/16 at 14 :00 IV Flush (NS 10 ml) 10 ml PRN PRN IV IV PROTOCOL; Start 09/22/16 at 18:30 Docusate Sodium (Colace Liquid Cup) 200 mg QHS NGT Last administered on 20:56; Admin Dose 200 MG; Start 09/24/16 at 21:00 Potassium Chloride (Potassium Chloride Pwd/Soln) 20 meq BID NGT Last administered on 09/29/16 09:01; Admin Dose 20 MEQ; Start 09/27/16 at 09:00 Lorazepam 1 mg 1 mg Q4H PRN IV AGITATION/ANXIETY; Start 09/27/16 at 17:30 Propofol (Diprivan) 100 ml @ 2.22 mls/hr Q12H IV Last administered on 10:54; Admin Dose 3.108 MLS/HR; Start 09/27/16 at 14:00 Morphine Sulfate (morphine) 2 mg Q4H PRN IV PAIN Last administered on 09/28/16 11:56; Admin Dose 2 MG; Start 09/28/16 at 11:30 Povidone Iodine (Povidone-Iodine) 1 applic DAILY TOP Last administered on 22:52; Admin Dose 1 APPLIC; Start 09/29/16 at 09:00 Collagenase (Santyl) 1 applic DAILY TOP Last administered on 09/29/16 09:02; Admin Dose 1 APPLIC; Start 09/28/16 at 19:30 Insulin Aspart (Novolog Insulin Pen) NOVOLOG *MILD* ALGORI... Q6 SC ; Start 09/29 at 06:00 ADAMARIS RAMIREZ September 29, 2016 09:26
[2016-09-29 11:10] LABS: AADO2 Arterial 31.5 mmHg (7.0-24.0); Allen Test ACCEPTAB; Arterial COHb 0.7 % (0.0-3.0); Arterial Fraction of Oxyhgb 97.7 % (93.0-99.0); Arterial HCO3 26.3 mmol/L (22.0-26.0); Arterial MetHb 0.3 % (0.0-1.5); Arterial Total Hemglobin 11.7 g/dl (12.0-18.0); Blood Gas PS 10; MODE VENT - CPAP
--- NOTE | 2016-09-29 12:22 | PN ---
DATE: 09/29/2016 SUBJECTIVE: No acute changes. No fevers. The patient is awake, tolerating CPAP. Family at bedsid e. VITAL SIGNS: Temperature 98.5, pulse 63, respirations 12, blood pressure 98/47, saturation 100% on 30% FIO2. LABORATORY DATA: WBC 5.1, H and H 8.2 and 28.2, platelets 129, neutrophils 73.4. BUN 34, creatinin e 1.50. INDWELLINGS: Endotracheal tube, NG tube, Gan, right chest PermCath. PHYSICAL EXAMINATION: GENERAL: This is a fragile well-developed elderly man who is alert, in no distress. HEENT: Head atraumatic, normocephalic. Sclerae anicteric. Buccal mucosa dry. NECK: Supple, trachea midline. CHEST: Rise symmetrical. Breath sounds diminished to bases. HEART: S1, S2. ABDOMEN: Soft, bowel sounds present. EXTREMITIES: Without cyanosis. Bilateral lower extremity dressings intact. ASSESSMENT: 1. Recurrent respiratory failure secondary to fluid overload, possibly aspiration event, patient is status post antibiotics. 2. Diabetes. 3. Bilateral lower extremity ulcerations. 4. Cirrhosis. 5. Coronary artery disease, history of permanent pacemaker placement. 6. Chronic kidney disease. PLAN: The patient remains hemodynamically stable. Tolerates weaning trials. He is off antibiotics . Continue local wound care. Panculture p.r.n. Dictated By: ADA MICHELLE DIETARY AIDE COOK for CHUNG VALLE MD NI/NTS Conf#: [id number] DID#: [id number]
--- NOTE | 2016-09-29 13:40 | PN ---
Date/Time of Note Date/Time of Note DATE: 09/29/16 TIME: 13:38 Assessment/Plan VTE Prophylaxis VTE Prophylaxis Intervention: other (eliquis) Lines/Catheters IV Catheter Type (from Nrs): PICC Line Central line still needed: Yes Urinary Cath still in place: Yes Reason Cath still needed: other (indicate) Assessment/Plan Assessment/Plan 1. Recurrent VDRF 2/2 #2 2. Endstage CHF with recurrent exacerbation 3. Chronic kidney disease on hemodialysis 3 times a week limited by hypotension 4. Shock ?cardiogenic r/o septic now off pressor support 5. Diabetes mellitus type 2 - ISS 6. Paroxysmal atrial fibrillation, rate controlled - monitor, BB, eliquis 7. 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 8. Chronic liver cirrhosis with coagulopathy and mild hyperbilirubinemia and transaminitis likely associated with chronic CHF - monitor 9. Severe debility. 10. 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 11. LE cellulitis and ulcerations ? PVD 12. Tube feeding PLAN: * Continue ICU care / vent mgt + weaning / pressor support/ albumin * Family however not enthusiastic about trach or PEG, family meeting today / f/ u final decision * f/u renal rec's, HD as tolerated per Nephro * Patient high readmission risk even if extubated. Recommend home with hospice at discharge. CRITICAL CARE TIME: >35 mins Prognosis : [facility] very poor and guarded Subjective 24 Hr Interval Summary Free Text/Dictation Patient seen and examined. Nursing reports no acute overnight events. CPAP trials today Exam/Review of Systems Vital Signs Vitals Vital Signs Date Time Temp Pulse Resp B/P Pulse Ox O2 Delivery O2 Flow Rate FiO2 09/29/16 11:38 69 23 100 30 09/29/16 09:30 98/47 Mechanical Ventilator 09/29/16 08:00 98.5 Intake and Output 09/28/16 09/28/16 09/29/16 15:00 23:00 07:00 Intake Total 670.40 ml 370.84 ml 328.62 ml Output Total 1881 ml 120 ml 155 ml Balance -1210.60 ml 250.84 ml 173.62 ml Exam Constitutional: alert Psych: confusion (??) Eyes: PERRL, icteric (mildly) ENMT: intubated Respiratory: diminished breath sounds, No wheezing Cardiovascular: irregular rhythm, murmurs/extra sounds Gastrointestinal: bowel sounds, non-tender, soft Extremities: edema Neurological: lethargic Skin: rash or lesions Results Result Diagram: 09/29/16 0405 09/29/16 0405 Results 24 hrs Laboratory Tests Test 09/28/16 14:22 09/28/16 17:04 09/28/16 20:57 09/29/16 01:10 Digoxin Level 0.8 L Bedside Glucose 95 116 111 Test 09/29/16 04:05 09/29/16 05:18 09/29/16 10:27 09/29/16 12:43 White Blood Count 5.1 Red Blood Count 3.16 L Hemoglobin 8.2 L Hematocrit 28.2 L Mean Corpuscular Volume 89.2 Mean Corpuscular Hemoglobin 25.9 L Mean Corpuscular Hemoglobin Concent 29.1 L Red Cell Distribution Width 21.7 H Platelet Count 129 L Mean Platelet Volume 12.1 H Neutrophils % 73.4 Lymphocytes % 15.0 Monocytes % 6.9 Eosinophils % 3.7 Basophils % 0.4 Nucleated Red Blood Cells % 0.6 H Neutrophils # 3.7 Lymphocytes # 0.8 Monocytes # 0.4 Eosinophils # 0.2 Basophils # 0.0 Nucleated Red Blood Cells # 0.0 Sodium Level 151 H Potassium Level 3.6 Chloride Level 112 H Carbon Dioxide Level 29 Anion Gap 14 Blood Urea Nitrogen 34 #H Creatinine 1.50 H Glucose Level 114 Calcium Level 9.1 Phosphorus Level 1.0 L Magnesium Level 2.0 Albumin 2.8 L Bedside Glucose 116 92 Blood Gas Specimen Source Blood arterial Arterial Blood Date Drawn 09/29/2016 10:30:32 AM Arterial Blood pH (Temp corrected) 7.435 Arterial Blood pCO2 (Temp correct) 40.1 Arterial Blood pO2 (Temp corrected) 135.3 H Arterial Blood HCO3 26.3 H Arterial Blood Base Excess 2.0 Arterial Blood Oxygen Saturation 98.7 Sebastien Test ACCEPTAB Arterial Blood Gas Puncture Site Right Radial Arterial Blood Carboxyhemoglobin 0.7 Arterial Blood Methemoglobin 0.3 Blood Gas A-a O2 Differential 31.5 H Oxyhemoglobin Percent 97.7 Total Hemoglobin 11.7 L Blood Gas Temperature 37.0 Blood Gas Actual Respiration Rate 28 Blood Gas Modality VENT - CPAP FiO2 30.0 Blood Gas Low PEEP Setting 5.0 Blood Gas Pressure Support 10 Blood Gas Notified Whom JLD Blood Gas Notified Time 09/29/2016 11:10:27 AM Medications Medications Current Medications Apixaban (Eliquis) 2.5 mg BID PO Last administered on 09/29/16 09:01; Admin Dose 2.5 MG; Start 09/19/16 at 21:00 Ascorbic Acid (Vitamin C) 500 mg DAILY PO Last administered on 09/29/16 09:01; Admin Dose 500 MG; Start 09/20/16 at 09:00 Aspirin (Aspirin) 81 mg DAILY PO Last administered on 09/29/16 09:01; Admin Dose 81 MG; Start 09/20/16 at 09:00 Carvedilol (Coreg) 1.5625 mg BID PO Last administered on 09/22/16 20:47; Admin Dose 1.5625 MG; Start 09/19/16 at 21:00; Status Future Hold Digoxin (Digoxin) 0.125 mg Q2D@13 PO ; Start 09/21/16 at 13:00; Status Future Hold Pantoprazole (Protonix Iv) 40 mg BID@06,18 IV Last administered on 09/29/16 05: 19; Admin Dose 40 MG; Start 09/20/16 at 06:00 Furosemide 20 mg 20 mg DAILY@06 IV Last administered on 09/29/16 05:21; Admin Dose 20 MG; Start 09/20/16 at 06:00 Norepinephrine 16 mg/Dextrose 500 ml @ 1.87 mls/hr TITRATE IV Last administered on 09/26/16 04:40; Admin Dose 5.62 MLS/HR; Start 09/20/16 at 02:00 Midazolam HCl (Versed) 50 ml @ 1 mls/hr TITRATE IV Last administered on 15:03; Admin Dose 6 MLS/HR; Start 09/20/16 at 02:00 Miscellaneous Information 1 ea NOTE XX ; Start 09/21/16 at 14:00 Glucose (Glutose) 15 gm Q15M PRN PO DECREASED GLUCOSE; Start 09/21/16 at 14:00 Glucose (Glutose) 22.5 gm Q15M PRN PO DECREASED GLUCOSE; Start 09/21/16 at 14: 00 Dextrose (D50w Syringe) 25 ml Q15M PRN IV DECREASED GLUCOSE; Start 09/21/16 at 14:00 Dextrose (D50w Syringe) 50 ml Q15M PRN IV DECREASED GLUCOSE; Start 09/21/16 at 14:00 Glucagon (Glucagen) 1 mg Q15M PRN IM DECREASED GLUCOSE; Start 09/21/16 at 14:00 Glucose (Glutose) 15 gm Q15M PRN BUCCAL DECREASED GLUCOSE; Start 09/21/16 at 14 :00 IV Flush (NS 10 ml) 10 ml PRN PRN IV IV PROTOCOL; Start 09/22/16 at 18:30 Docusate Sodium (Colace Liquid Cup) 200 mg QHS NGT Last administered on 20:56; Admin Dose 200 MG; Start 09/24/16 at 21:00 Potassium Chloride (Potassium Chloride Pwd/Soln) 20 meq BID NGT Last administered on 09/29/16 09:01; Admin Dose 20 MEQ; Start 09/27/16 at 09:00 Lorazepam 1 mg 1 mg Q4H PRN IV AGITATION/ANXIETY; Start 09/27/16 at 17:30 Propofol (Diprivan) 100 ml @ 2.22 mls/hr Q12H IV Last administered on 10:54; Admin Dose 3.108 MLS/HR; Start 09/27/16 at 14:00 Morphine Sulfate (morphine) 2 mg Q4H PRN IV PAIN Last administered on 09/28/16 11:56; Admin Dose 2 MG; Start 09/28/16 at 11:30 Povidone Iodine (Povidone-Iodine) 1 applic DAILY TOP Last administered on 22:52; Admin Dose 1 APPLIC; Start 09/29/16 at 09:00 Collagenase (Santyl) 1 applic DAILY TOP Last administered on 09/29/16 09:02; Admin Dose 1 APPLIC; Start 09/28/16 at 19:30 Insulin Aspart (Novolog Insulin Pen) NOVOLOG *MILD* ALGORI... Q6 SC ; Start 09/29 at 06:00 BOLA SOLO September 29, 2016 13:40
--- NOTE | 2016-09-29 15:12 | PN ---
DATE: 09/29/2016 PALLIATIVE CARE PROGRESS NOTE We have had an extensive conversation with patient's family today including 3 male children, 1 femal e and patient's , who speaks no [place]ijani. There was one family member who is the decision maker and primarily spokesperson for Mr. Burton's ongoing level of care. It was very clear from the start that he was not happy about some issues during the patient's prior hospitalization and our focus wa s to get him to focus on his father's current medical condition, as patient has been intubated in [facility] intensive care unit for approximately 9 days now and is approaching the point that family will nee d to make a decision concerning trach and PEG. Palliative care discussion was done with case manage ment in attendance also. It was clear that he has tried to make the family members feel like that t here complaints are justified. However, in spite of that, family was unhappy and it was difficult o nce again to get them to focus. Therefore, background obscured patient's current ongoing level of c are. Their understanding is somewhat not completely accurate and that patient has flash pulmonary e radha, and they feel that patient's symptoms occurred over a long period of time and with the use of some other modalities that they did not have access to at home, which I am unaware of, contributed t o his current morbid condition. We did not cover acceptable quality of life, fears, strength at thi s time as family members did not want to address those, nor cultural issues. Communication preferen criselda by phone or in person. IMPRESSION: This is a family in crisis at this time. It is difficult to focus on the primary issue as patient is approaching a time that the family should give us an answer insofar as ongoing level of care and whether or not they want patient to have a PEG and trach. They seem to be conflicted on this and that is understandable. His prognosis is extremely poor in the long-term with his degree of congestive heart failure. There are no pain issues. Ethical issues are as above. Surrogates ar e patient's family in attendance. His code status is FULL CODE and that could not be addressed with family members as they were not prepared for that, nor discussion of a POLST form. We will continu e to work with family members. Followup note will be done. Dictated By: MARLO WILL MD LP/NTS Conf#: [id number] DID#: [id number]
--- NOTE | 2016-09-29 20:19 | CONS ---
Date/Time of Note Date/Time of Note DATE: 09/29/16 TIME: 20:18 Assessment/Plan Assessment/Plan Chief Complaint/Hosp Course IMPRESSION: 1. Acute hypoxic respiratory failure.on vent 2. Patient has a chronic systolic heart failure. 3. Chronic kidney disease requiring hemodialysis. 4. History of acute tubular necrosis. 5. Cardiomyopathy. 6. Anemia. 7. Neutropenia. 8. The patient has hypoalbuminemia. 9. Patient has ventilator dependent respiratory failure. 10. History of sepsis. 11. Septic shock. 12 hypokalemia better plan continue hd weaning d/w family hd MWF Problems: Consultation Date/Type/Reason Admit Date/Time Sep 19, 2016 at 14:51 Type of Consultation: RENAL Referring Provider: THERESA RIVERA 24 HR Interval Summary Constitutional: other (AWAKE ON VENT) Exam/Review of Systems Vital Signs Vitals Vital Signs Date Time Temp Pulse Resp B/P Pulse Ox O2 Delivery O2 Flow Rate FiO2 09/29/16 19:45 63 20 100 30 09/29/16 19:30 87/43 09/29/16 19:00 Mechanical Ventilator 09/29/16 16:00 97.9 Intake and Output 09/28/16 09/28/16 09/29/16 14:59 22:59 06:59 Intake Total 670.40 ml 370.40 ml 361.28 ml Output Total 1866 ml 130 ml 165 ml Balance -1195.60 ml 240.40 ml 196.28 ml Exam Neck: supple Respiratory: diminished breath sounds Cardiovascular: regular rate and rhythm Gastrointestinal: bowel sounds (+), soft Extremities: edema (TR) Results Result Diagram: 09/29/16 0405 09/29/16 0405 Results 24 hrs Laboratory Tests Test 09/28/16 20:57 09/29/16 01:10 09/29/16 04:05 09/29/16 05:18 Bedside Glucose 116 111 116 White Blood Count 5.1 Red Blood Count 3.16 L Hemoglobin 8.2 L Hematocrit 28.2 L Mean Corpuscular Volume 89.2 Mean Corpuscular Hemoglobin 25.9 L Mean Corpuscular Hemoglobin Concent 29.1 L Red Cell Distribution Width 21.7 H Platelet Count 129 L Mean Platelet Volume 12.1 H Neutrophils % 73.4 Lymphocytes % 15.0 Monocytes % 6.9 Eosinophils % 3.7 Basophils % 0.4 Nucleated Red Blood Cells % 0.6 H Neutrophils # 3.7 Lymphocytes # 0.8 Monocytes # 0.4 Eosinophils # 0.2 Basophils # 0.0 Nucleated Red Blood Cells # 0.0 Sodium Level 151 H Potassium Level 3.6 Chloride Level 112 H Carbon Dioxide Level 29 Anion Gap 14 Blood Urea Nitrogen 34 #H Creatinine 1.50 H Glucose Level 114 Calcium Level 9.1 Phosphorus Level 1.0 L Magnesium Level 2.0 Albumin 2.8 L Test 09/29/16 10:27 09/29/16 12:43 09/29/16 18:17 Blood Gas Specimen Source Blood arterial Arterial Blood Date Drawn 09/29/2016 10:30:32 AM Arterial Blood pH (Temp corrected) 7.435 Arterial Blood pCO2 (Temp correct) 40.1 Arterial Blood pO2 (Temp corrected) 135.3 H Arterial Blood HCO3 26.3 H Arterial Blood Base Excess 2.0 Arterial Blood Oxygen Saturation 98.7 Sebastien Test ACCEPTAB Arterial Blood Gas Puncture Site Right Radial Arterial Blood Carboxyhemoglobin 0.7 Arterial Blood Methemoglobin 0.3 Blood Gas A-a O2 Differential 31.5 H Oxyhemoglobin Percent 97.7 Total Hemoglobin 11.7 L Blood Gas Temperature 37.0 Blood Gas Actual Respiration Rate 28 Blood Gas Modality VENT - CPAP FiO2 30.0 Blood Gas Low PEEP Setting 5.0 Blood Gas Pressure Support 10 Blood Gas Notified Whom GRAYSOND Blood Gas Notified Time 09/29/2016 11:10:27 AM Bedside Glucose 92 100 Medications Medications Current Medications Apixaban (Eliquis) 2.5 mg BID PO Last administered on 09/29/16 09:01; Admin Dose 2.5 MG; Start 09/19/16 at 21:00 Ascorbic Acid (Vitamin C) 500 mg DAILY PO Last administered on 09/29/16 09:01; Admin Dose 500 MG; Start 09/20/16 at 09:00 Aspirin (Aspirin) 81 mg DAILY PO Last administered on 09/29/16 09:01; Admin Dose 81 MG; Start 09/20/16 at 09:00 Carvedilol (Coreg) 1.5625 mg BID PO Last administered on 09/22/16 20:47; Admin Dose 1.5625 MG; Start 09/19/16 at 21:00; Status Future Hold Digoxin (Digoxin) 0.125 mg Q2D@13 PO ; Start 09/21/16 at 13:00; Status Future Hold Pantoprazole (Protonix Iv) 40 mg BID@,18 IV Last administered on 09/29/16 18: 17; Admin Dose 40 MG; Start 09/20/16 at 06:00 Furosemide 20 mg 20 mg DAILY@06 IV Last administered on 09/29/16 05:21; Admin Dose 20 MG; Start 09/20/16 at 06:00 Norepinephrine 16 mg/Dextrose 500 ml @ 1.87 mls/hr TITRATE IV Last administered on 09/26/16 04:40; Admin Dose 5.62 MLS/HR; Start 09/20/16 at 02:00 Midazolam HCl (Versed) 50 ml @ 1 mls/hr TITRATE IV Last administered on 15:03; Admin Dose 6 MLS/HR; Start 09/20/16 at 02:00 Miscellaneous Information 1 ea NOTE XX ; Start 09/21/16 at 14:00 Glucose (Glutose) 15 gm Q15M PRN PO DECREASED GLUCOSE; Start 09/21/16 at 14:00 Glucose (Glutose) 22.5 gm Q15M PRN PO DECREASED GLUCOSE; Start 09/21/16 at 14: 00 Dextrose (D50w Syringe) 25 ml Q15M PRN IV DECREASED GLUCOSE; Start 09/21/16 at 14:00 Dextrose (D50w Syringe) 50 ml Q15M PRN IV DECREASED GLUCOSE; Start 09/21/16 at 14:00 Glucagon (Glucagen) 1 mg Q15M PRN IM DECREASED GLUCOSE; Start 09/21/16 at 14:00 Glucose (Glutose) 15 gm Q15M PRN BUCCAL DECREASED GLUCOSE; Start 09/21/16 at 14 :00 IV Flush (NS 10 ml) 10 ml PRN PRN IV IV PROTOCOL; Start 09/22/16 at 18:30 Docusate Sodium (Colace Liquid Cup) 200 mg QHS NGT Last administered on 20:56; Admin Dose 200 MG; Start 09/24/16 at 21:00 Potassium Chloride (Potassium Chloride Pwd/Soln) 20 meq BID NGT Last administered on 09/29/16 09:01; Admin Dose 20 MEQ; Start 09/27/16 at 09:00 Lorazepam 1 mg 1 mg Q4H PRN IV AGITATION/ANXIETY; Start 09/27/16 at 17:30 Propofol (Diprivan) 100 ml @ 2.22 mls/hr Q12H IV Last administered on 17:13; Admin Dose 4.44 MLS/HR; Start 09/27/16 at 14:00 Morphine Sulfate (morphine) 2 mg Q4H PRN IV PAIN Last administered on 09/28/16 11:56; Admin Dose 2 MG; Start 09/28/16 at 11:30 Povidone Iodine (Povidone-Iodine) 1 applic DAILY TOP Last administered on 22:52; Admin Dose 1 APPLIC; Start 09/29/16 at 09:00 Collagenase (Santyl) 1 applic DAILY TOP Last administered on 09/29/16 09:02; Admin Dose 1 APPLIC; Start 09/28/16 at 19:30 Insulin Aspart (Novolog Insulin Pen) NOVOLOG *MILD* ALGORI... Q6 SC ; Start 09/29 at 06:00 YANIRA HART MD September 29, 2016 20:19
[2016-09-29] MEDS: DOCUSATE SODIUM 10 MG/ML (10ML CUP) NGT SCH (20:31)
[2016-09-29] MEDS: SOD PHOS MONO/DIBAS 250 MG TAB PO SCH (22:25)
[2016-09-30] VITALS (49 sets, daily range): BP systolic 87–130; BP diastolic 39–68; PULSE 60–68; RESP 14–30
[2016-09-30] MEDS: PROPOFOL 100 ML IV SCH ×3 (02:00→22:02)
[2016-09-30 04:42] LABS: ADD SCAN DIFF NO
[2016-09-30 04:53] LABS: ABNORMAL IP MESSAGE 1; BASOPHILS % 0.2 % (0.0-2.0); EOSINOPHILS # 0.2 10^3/ul (0.0-0.5); EOSINOPHILS % 4.4 % (0.0-7.0); HEMOGLOBIN 8.1 g/dl (14.0-18.0); LYMPHOCYTES # 0.7 10^3/ul (0.8-2.9); LYMPHOCYTES % 16.4 % (15.0-51.0); MEAN CORPUSCULAR HEMOGLOBIN 26.8 pg (29.0-33.0); MEAN CORPUSCULAR VOLUME 89.4 fl (82.0-101.0); MEAN PLATELET VOLUME 11.9 fl (7.4-10.4); MONOCYTE # 0.3 10^3/ul (0.3-0.9); MONOCYTES % 7.1 % (0.0-11.0); NEUTROPHIL # 3.2 10^3/ul (1.6-7.5); NEUTROPHILS % 71.5 % (39.0-77.0); NUCLEATED RED BLOOD CELLS% 0.4 /100WBC (0.0-0.0); PLATELET COUNT 165 10^3/UL (140-415); RED BLOOD COUNT 3.02 10^6/ul (4.70-6.10); RED CELL DISTRIBUTION WIDTH 22.5 % (11.5-14.5); WHITE BLOOD COUNT 4.5 10^3/ul (4.8-10.8)
[2016-09-30 05:08] LABS: ALBUMIN 2.6 g/dl (3.3-4.9)
[2016-09-30 05:09] LABS: POTASSIUM 3.9 mmol/L (3.5-5.1)
[2016-09-30 05:11] LABS: CREATININE 1.65 mg/dl (0.61-1.24)
[2016-09-30 05:12] LABS: PHOSPHORUS 1.5 mg/dl (2.5-4.9)
[2016-09-30] MEDS: PANTOPRAZOLE 40 MG INJ IV SCH ×2 (05:26→18:05)
[2016-09-30] MEDS: FUROSEMIDE 20 MG INJ IV SCH (05:27)
[2016-09-30] MEDS: INSULIN ASPART [NOVOLOG] 3 ML PEN SC SCH ×3 (05:31→18:00)
--- NOTE | 2016-09-30 08:42 | CONS ---
Date/Time of Note Date/Time of Note DATE: 09/30/16 TIME: 08:39 Assessment/Plan Assessment/Plan Additional Assessment/Plan Ventilator setting; she currently on CPAP mode with pressure support of 10, 30% FiO2. Assessment recommendations; 1. Patient admitted for recurrent respiratory failure due to flash pulmonary edema from underlying severe cardiomyopathy. This is the patient's third intubation over the last couple of weeks. 2. Renal failure, on hemodialysis. 3. Cardiac arrhythmia. Status post pacemaker implantation in the past. 4. Anemia, status post blood transfusion with stable hematocrit, no overt bleeding noted. Due current treatment. I did have a detailed discussion the patient's son at bedside the family wants him to be extubated without any further intubation if the patient decompensates. At that time comfort care measures will be provided. Patient's prognosis remains very poor. 35 minutes of critical care time was spent evaluating the patient. Consultation Date/Type/Reason Admit Date/Time Sep 19, 2016 at 14:51 Type of Consultation: Pulmonary/critical care Referring Provider: THERESA RIVERA 24 HR Interval Summary Free Text/Dictation Patient condition remains critical but stable patient is awake and does not appear to be in any distress. Has remained hemodynamically stable. Exam/Review of Systems Vital Signs Vitals Vital Signs Date Time Temp Pulse Resp B/P Pulse Ox O2 Delivery O2 Flow Rate FiO2 09/30/16 07:30 97.9 62 14 108/45 100 Mechanical Ventilator 09/30/16 05:32 30 Intake and Output 09/29/16 09/29/16 09/30/16 14:59 22:59 06:59 Intake Total 250.656 ml 382.856 ml 375.52 ml Output Total 390 ml 485 ml 175 ml Balance -139.344 ml -102.144 ml 200.52 ml Exam HEENT exam is; supple neck, positive JVD. No lymphadenopathy. Midline trachea. No thyromegaly. Orally intubated. Patient is mostly edentulous. Pupils are small bilaterally. Chest examination; diminished but clear vessel. S1-S2 audible, no murmurs. There is a pacemaker in the left chest wall. There is a well-healed sternal scar. Abdomen examination; soft, nondistended, no organomegaly. Bowel sounds audible. Extremity exam is; no peripheral edema. 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 Results Result Diagram: 09/30/16 0330 09/30/16 0330 Results 24 hrs Laboratory Tests Test 09/29/16 10:27 09/29/16 12:43 09/29/16 18:17 09/29/16 23:35 Blood Gas Specimen Source Blood arterial Arterial Blood Date Drawn 09/29/2016 10:30:32 AM Arterial Blood pH (Temp corrected) 7.435 Arterial Blood pCO2 (Temp correct) 40.1 Arterial Blood pO2 (Temp corrected) 135.3 H Arterial Blood HCO3 26.3 H Arterial Blood Base Excess 2.0 Arterial Blood Oxygen Saturation 98.7 Sebastien Test ACCEPTAB Arterial Blood Gas Puncture Site Right Radial Arterial Blood Carboxyhemoglobin 0.7 Arterial Blood Methemoglobin 0.3 Blood Gas A-a O2 Differential 31.5 H Oxyhemoglobin Percent 97.7 Total Hemoglobin 11.7 L Blood Gas Temperature 37.0 Blood Gas Actual Respiration Rate 28 Blood Gas Modality VENT - CPAP FiO2 30.0 Blood Gas Low PEEP Setting 5.0 Blood Gas Pressure Support 10 Blood Gas Notified Whom JLD Blood Gas Notified Time 09/29/2016 11:10:27 AM Bedside Glucose 92 100 108 Test 09/30/16 03:30 09/30/16 05:31 White Blood Count 4.5 L Red Blood Count 3.02 L Hemoglobin 8.1 L Hematocrit 27.0 L Mean Corpuscular Volume 89.4 Mean Corpuscular Hemoglobin 26.8 L Mean Corpuscular Hemoglobin Concent 30.0 L Red Cell Distribution Width 22.5 H Platelet Count 165 # Mean Platelet Volume 11.9 H Neutrophils % 71.5 Lymphocytes % 16.4 Monocytes % 7.1 Eosinophils % 4.4 Basophils % 0.2 Nucleated Red Blood Cells % 0.4 H Neutrophils # 3.2 Lymphocytes # 0.7 L Monocytes # 0.3 Eosinophils # 0.2 Basophils # 0.0 Nucleated Red Blood Cells # 0.0 Sodium Level 150 H Potassium Level 3.9 Chloride Level 113 H Carbon Dioxide Level 27 Anion Gap 14 Blood Urea Nitrogen 43 H Creatinine 1.65 H Glucose Level 104 Calcium Level 9.0 Phosphorus Level 1.5 L Albumin 2.6 L Bedside Glucose 107 Medications Medications Current Medications Apixaban (Eliquis) 2.5 mg BID PO Last administered on 09/29/16t 20:30; Admin Dose 2.5 MG; Start 09/19/16 at 21:00 Ascorbic Acid (Vitamin C) 500 mg DAILY PO Last administered on 09/29/16 09:01; Admin Dose 500 MG; Start 09/20/16 at 09:00 Aspirin (Aspirin) 81 mg DAILY PO Last administered on 09/29/16 09:01; Admin Dose 81 MG; Start 09/20/16 at 09:00 Carvedilol (Coreg) 1.5625 mg BID PO Last administered on 09/22/16 20:47; Admin Dose 1.5625 MG; Start 09/19/16 at 21:00; Status Future Hold Digoxin (Digoxin) 0.125 mg Q2D@13 PO ; Start 09/21/16 at 13:00; Status Future Hold Pantoprazole (Protonix Iv) 40 mg BID@06,18 IV Last administered on 09/30/16 05: 26; Admin Dose 40 MG; Start 09/20/16 at 06:00 Furosemide 20 mg 20 mg DAILY@06 IV Last administered on 09/30/16 05:27; Admin Dose 20 MG; Start 09/20/16 at 06:00 Norepinephrine 16 mg/Dextrose 500 ml @ 1.87 mls/hr TITRATE IV Last administered on 09/26/16 04:40; Admin Dose 5.62 MLS/HR; Start 09/20/16 at 02:00 Midazolam HCl (Versed) 50 ml @ 1 mls/hr TITRATE IV Last administered on 15:03; Admin Dose 6 MLS/HR; Start 09/20/16 at 02:00 Miscellaneous Information 1 ea NOTE XX ; Start 09/21/16 at 14:00 Glucose (Glutose) 15 gm Q15M PRN PO DECREASED GLUCOSE; Start 09/21/16 at 14:00 Glucose (Glutose) 22.5 gm Q15M PRN PO DECREASED GLUCOSE; Start 09/21/16 at 14: 00 Dextrose (D50w Syringe) 25 ml Q15M PRN IV DECREASED GLUCOSE; Start 09/21/16 at 14:00 Dextrose (D50w Syringe) 50 ml Q15M PRN IV DECREASED GLUCOSE; Start 09/21/16 at 14:00 Glucagon (Glucagen) 1 mg Q15M PRN IM DECREASED GLUCOSE; Start 09/21/16 at 14:00 Glucose (Glutose) 15 gm Q15M PRN BUCCAL DECREASED GLUCOSE; Start 09/21/16 at 14 :00 IV Flush (NS 10 ml) 10 ml PRN PRN IV IV PROTOCOL; Start 09/22/16 at 18:30 Docusate Sodium (Colace Liquid Cup) 200 mg QHS NGT Last administered on 20:31; Admin Dose 200 MG; Start 09/24/16 at 21:00 Potassium Chloride (Potassium Chloride Pwd/Soln) 20 meq BID NGT Last administered on 09/29/16 20:31; Admin Dose 20 MEQ; Start 09/27/16 at 09:00 Lorazepam 1 mg 1 mg Q4H PRN IV AGITATION/ANXIETY; Start 09/27/16 at 17:30 Propofol (Diprivan) 100 ml @ 2.22 mls/hr Q12H IV Last administered on 17:13; Admin Dose 4.44 MLS/HR; Start 09/27/16 at 14:00 Morphine Sulfate (morphine) 2 mg Q4H PRN IV PAIN Last administered on 09/28/16 11:56; Admin Dose 2 MG; Start 09/28/16 at 11:30 Povidone Iodine (Povidone-Iodine) 1 applic DAILY TOP Last administered on 22:52; Admin Dose 1 APPLIC; Start 09/29/16 at 09:00 Collagenase (Santyl) 1 applic DAILY TOP Last administered on 09/29/16 09:02; Admin Dose 1 APPLIC; Start 09/28/16 at 19:30 Insulin Aspart (Novolog Insulin Pen) NOVOLOG *MILD* ALGORI... Q6 SC ; Start 09/29 at 06:00 Sodium Phosphate (Kphos Neutral) 250 mg BID PO Last administered on 09/29/16 22 :25; Admin Dose 250 MG; Start 09/29/16 at 21:00; Stop 10/03/16 at 20:59 ADAMARIS RAMIREZ September 30, 2016 08:42
[2016-09-30 08:58] LABS: AADO2 Arterial 61.5 mmHg (7.0-24.0); Allen Test ACCEPTAB; Arterial Base Excess 1.9 mmol/L (-3.0-3); Arterial COHb 0.2 % (0.0-3.0); Arterial Fraction of Oxyhgb 97.2 % (93.0-99.0); Arterial HCO3 25.6 mmol/L (22.0-26.0); Arterial MetHb 0.4 % (0.0-1.5); Arterial Total Hemglobin 10.1 g/dl (12.0-18.0); Blood Gas PS 10; MODE VENT - CPAP
[2016-09-30] MEDS: APIXABAN 5 MG TABLET PO SCH (09:03)
[2016-09-30] MEDS: ASCORBIC ACID 500 MG TAB PO SCH (09:03)
[2016-09-30] MEDS: POTASSIUM CHLORIDE 20 MEQ POWDER FOR ORAL SOLN NGT SCH ×2 (09:04→21:00)
[2016-09-30] MEDS: ASPIRIN 81 MG TAB PO SCH (09:04)
[2016-09-30] MEDS: SOD PHOS MONO/DIBAS 250 MG TAB PO SCH ×2 (09:05→21:00)
[2016-09-30] MEDS: COLLAGENASE 30 GM TUBE TOP SCH (09:06)
[2016-09-30] MEDS: POVIDONE IODINE 10% 28.4 GM OINT TOP SCH (09:06)
[2016-09-30] MEDS ORDERED: HEPARIN 1000 UNITS/ML 10 ML INJ CATHETER ONE (10:00)
[2016-09-30] MEDS ORDERED: ALBUMIN HUMAN 25% 100 ML IV PRN (10:00)
--- NOTE | 2016-09-30 12:07 | PN ---
DATE: 09/30/2016 SUBJECTIVE: No events overnight. No fevers. The patient is on CPAP, alert, looks comfortable. He is also getting hemodialysis now. He is afebrile. Family at bedside. LABORATORIES: WBC 4.5, H and H 8.1 and 27, platelets 165, no shift, no bands. INDWELLINGS: Right chest PermCath. PHYSICAL EXAMINATION: GENERAL: Fragile, elderly man who is awake, in no distress. HEENT: Head atraumatic, normocephalic. Sclerae anicteric. Buccal mucosa dry. NECK: Supple. CHEST: Rise symmetrical. Breath sounds clear, diminished to bases. HEART: S1, S2. ABDOMEN: Soft. Bowel tones present. EXTREMITIES: Bilateral feet dressing intact. ASSESSMENT: 1. Acute respiratory failure secondary to fluid overload, possible aspiration event, status post an tibiotics. 2. End-stage renal disease, on hemodialysis. 3. Coronary artery disease with a history of permanent pacemaker. 4. Bilateral lower extremity ulceration. 5. Diabetes. PLAN: The patient remains stable, tolerates weaning trial. Continue observing off antibiotics, oakley culture p.r.n. Dictated By: ADA MICHELLE SALES TEAM MANAGER for CHUNG VALLE MD NI/NTS Conf#: [id number] DID#: [id number]
--- NOTE | 2016-09-30 15:14 | PN ---
Date/Time of Note Date/Time of Note DATE: 09/30/16 TIME: 14:59 Assessment/Plan VTE Prophylaxis VTE Prophylaxis Intervention: other (eliquis) Lines/Catheters IV Catheter Type (from Nrs): PICC Line Central line still needed: Yes Urinary Cath still in place: Yes Reason Cath still needed: other (indicate) Assessment/Plan Assessment/Plan 1. Recurrent VDRF 2/2 #2 2. Endstage CHF with recurrent exacerbation 3. Chronic kidney disease on hemodialysis 3 times a week limited by hypotension 4. Shock ?cardiogenic r/o septic now off pressor support 5. Diabetes mellitus type 2 - ISS 6. Paroxysmal atrial fibrillation, rate controlled - monitor, BB, eliquis 7. 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 8. Chronic liver cirrhosis with coagulopathy and mild hyperbilirubinemia and transaminitis likely associated with chronic CHF - monitor 9. Severe debility. 10. 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 11. LE cellulitis and ulcerations ? PVD: improved 12. Tube feeding 13. Chary UTI PLAN: * Continue CPAP and possible extubation if patient does well * Begin antifungal for Chary in urine (likely colonization) * f/u renal rec's, HD as tolerated per Nephro * Continue tube feeds and SSI * Hold eliquis for now and repeat Protime to assess INR * Family does not want a trach / Patient high readmission risk even if extubated. Recommend home with hospice at discharge. CRITICAL CARE TIME: >35 mins Prognosis : joint terminal attack controller very poor and guarded Subjective 24 Hr Interval Summary Free Text/Dictation Patient seen and examined. remains intubated on CPAP trials without pressor support Exam/Review of Systems Vital Signs Vitals Vital Signs Date Time Temp Pulse Resp B/P Pulse Ox O2 Delivery O2 Flow Rate FiO2 09/30/16 13:57 62 22 09/30/16 12:00 98.0 104/47 100 Mechanical Ventilator 09/30/16 11:32 30 Intake and Output 09/29/16 09/29/16 09/30/16 15:00 23:00 07:00 Intake Total 253.320 ml 414.632 ml 375.52 ml Output Total 390 ml 505 ml 230 ml Balance -136.680 ml -90.368 ml 145.52 ml Exam Constitutional: alert, frail, No distress Head: normocephalic Eyes: PERRL, icteric ENMT: intubated Respiratory: clear to auscultation, diminished breath sounds Cardiovascular: murmurs/extra sounds, regular rate and rhythm Gastrointestinal: bowel sounds, non-tender, soft Extremities: No edema Neurological: lethargic Results Result Diagram: 09/30/16 0330 09/30/16 0330 Results 24 hrs Laboratory Tests Test 09/29/16 18:17 09/29/16 23:35 09/30/16 03:30 09/30/16 05:31 Bedside Glucose 100 108 107 White Blood Count 4.5 L Red Blood Count 3.02 L Hemoglobin 8.1 L Hematocrit 27.0 L Mean Corpuscular Volume 89.4 Mean Corpuscular Hemoglobin 26.8 L Mean Corpuscular Hemoglobin Concent 30.0 L Red Cell Distribution Width 22.5 H Platelet Count 165 # Mean Platelet Volume 11.9 H Neutrophils % 71.5 Lymphocytes % 16.4 Monocytes % 7.1 Eosinophils % 4.4 Basophils % 0.2 Nucleated Red Blood Cells % 0.4 H Neutrophils # 3.2 Lymphocytes # 0.7 L Monocytes # 0.3 Eosinophils # 0.2 Basophils # 0.0 Nucleated Red Blood Cells # 0.0 Sodium Level 150 H Potassium Level 3.9 Chloride Level 113 H Carbon Dioxide Level 27 Anion Gap 14 Blood Urea Nitrogen 43 H Creatinine 1.65 H Glucose Level 104 Calcium Level 9.0 Phosphorus Level 1.5 L Albumin 2.6 L Test 09/30/16 08:00 09/30/16 12:19 Blood Gas Specimen Source Blood arterial Arterial Blood Date Drawn 09/30/2016 8:40:38 AM Arterial Blood pH (Temp corrected) 7.468 H Arterial Blood pCO2 (Temp correct) 36.1 Arterial Blood pO2 (Temp corrected) 110.0 H Arterial Blood HCO3 25.6 Arterial Blood Base Excess 1.9 Arterial Blood Oxygen Saturation 97.8 Sebastien Test ACCEPTAB Arterial Blood Gas Puncture Site Right Radial Arterial Blood Carboxyhemoglobin 0.2 Arterial Blood Methemoglobin 0.4 Blood Gas A-a O2 Differential 61.5 H Oxyhemoglobin Percent 97.2 Total Hemoglobin 10.1 L Blood Gas Temperature 37.0 Blood Gas Actual Respiration Rate 23 Blood Gas Modality VENT - CPAP FiO2 30.0 Blood Gas Low PEEP Setting 5.0 Blood Gas Pressure Support 10 Blood Gas Notified Whom JLD Blood Gas Notified Time 09/30/2016 8:58:18 AM Bedside Glucose 116 Medications Medications Current Medications Apixaban (Eliquis) 2.5 mg BID PO Last administered on 09/30/16 09:03; Admin Dose 2.5 MG; Start 09/19/16 at 21:00 Ascorbic Acid (Vitamin C) 500 mg DAILY PO Last administered on 09/30/16 09:03; Admin Dose 500 MG; Start 09/20/16 at 09:00 Aspirin (Aspirin) 81 mg DAILY PO Last administered on 09/30/16 09:04; Admin Dose 81 MG; Start 09/20/16 at 09:00 Carvedilol (Coreg) 1.5625 mg BID PO Last administered on 09/22/16 20:47; Admin Dose 1.5625 MG; Start 09/19/16 at 21:00; Status Future Hold Digoxin (Digoxin) 0.125 mg Q2D@13 PO ; Start 09/21/16 at 13:00; Status Future Hold Pantoprazole (Protonix Iv) 40 mg BID@06,18 IV Last administered on 09/30/16 05: 26; Admin Dose 40 MG; Start 09/20/16 at 06:00 Furosemide 20 mg 20 mg DAILY@06 IV Last administered on 09/30/16 05:27; Admin Dose 20 MG; Start 09/20/16 at 06:00 Norepinephrine 16 mg/Dextrose 500 ml @ 1.87 mls/hr TITRATE IV Last administered on 09/26/16 04:40; Admin Dose 5.62 MLS/HR; Start 09/20/16 at 02:00 Midazolam HCl (Versed) 50 ml @ 1 mls/hr TITRATE IV Last administered on 15:03; Admin Dose 6 MLS/HR; Start 09/20/16 at 02:00 Miscellaneous Information 1 ea NOTE XX ; Start 09/21/16 at 14:00 Glucose (Glutose) 15 gm Q15M PRN PO DECREASED GLUCOSE; Start 09/21/16 at 14:00 Glucose (Glutose) 22.5 gm Q15M PRN PO DECREASED GLUCOSE; Start 09/21/16 at 14: 00 Dextrose (D50w Syringe) 25 ml Q15M PRN IV DECREASED GLUCOSE; Start 09/21/16 at 14:00 Dextrose (D50w Syringe) 50 ml Q15M PRN IV DECREASED GLUCOSE; Start 09/21/16 at 14:00 Glucagon (Glucagen) 1 mg Q15M PRN IM DECREASED GLUCOSE; Start 09/21/16 at 14:00 Glucose (Glutose) 15 gm Q15M PRN BUCCAL DECREASED GLUCOSE; Start 09/21/16 at 14 :00 IV Flush (NS 10 ml) 10 ml PRN PRN IV IV PROTOCOL; Start 09/22/16 at 18:30 Docusate Sodium (Colace Liquid Cup) 200 mg QHS NGT Last administered on 20:31; Admin Dose 200 MG; Start 09/24/16 at 21:00 Potassium Chloride (Potassium Chloride Pwd/Soln) 20 meq BID NGT Last administered on 09/30/16 09:04; Admin Dose 20 MEQ; Start 09/27/16 at 09:00 Lorazepam 1 mg 1 mg Q4H PRN IV AGITATION/ANXIETY; Start 09/27/16 at 17:30 Propofol (Diprivan) 100 ml @ 2.22 mls/hr Q12H IV Last administered on 17:13; Admin Dose 4.44 MLS/HR; Start 09/27/16 at 14:00 Morphine Sulfate (morphine) 2 mg Q4H PRN IV PAIN Last administered on 09/28/16 11:56; Admin Dose 2 MG; Start 09/28/16 at 11:30 Povidone Iodine (Povidone-Iodine) 1 applic DAILY TOP Last administered on 09:06; Admin Dose 1 APPLIC; Start 09/29/16 at 09:00 Collagenase (Santyl) 1 applic DAILY TOP Last administered on 09/30/16 09:06; Admin Dose 1 APPLIC; Start 09/28/16 at 19:30 Insulin Aspart (Novolog Insulin Pen) NOVOLOG *MILD* ALGORI... Q6 SC ; Start 09/29 at 06:00 Sodium Phosphate (Kphos Neutral) 250 mg BID PO Last administered on 09/30/16 09 :05; Admin Dose 250 MG; Start 09/29/16 at 21:00; Stop 10/03/16 at 20:59 BOLA SOLO September 30, 2016 15:10
[2016-09-30] MEDS ORDERED: FLUCONAZOLE 200 MG/NS (PMX) 100 ML IVPB SCH (16:30)
--- NOTE | 2016-09-30 17:04 | CONS ---
Date/Time of Note Date/Time of Note DATE: 09/30/16 TIME: 17:01 Assessment/Plan Assessment/Plan Chief Complaint/Hosp Course IMPRESSION: 1. Hypotension/shock state, question cardiogenic versus septic unlikely as patient had a low EF with negative cardiac enzymes-Now off Levo with improved BP 2. Congestive heart failure, systolic, acute on chronic. 3. Coronary artery disease, status post coronary artery bypass graft surgery. 4. Chronic kidney disease on hemodialysis. 5. Coagulopathy secondary to Eliquis. 6. History of paroxysmal atrial fibrillation. 7. Likely sepsis. 8. Elevated digoxin level. 9. Anemia, worsening slight Recc: -Tele -Contnue asa -Continue eliquis -HD for volume removal as tolerated only -Continue abx's and f/u cx data -Follow BP closely and if BP remains stable will resume baseline low dose coreg/ hydralazine Problems: Consultation Date/Type/Reason Admit Date/Time Sep 19, 2016 at 14:51 Initial Consult Date 09/23/2016 Type of Consultation: Cardiology Reason for Consultation CHF Referring Provider: THERESA RIVERA Exam/Review of Systems Vital Signs Vitals Vital Signs Date Time Temp Pulse Resp B/P Pulse Ox O2 Delivery O2 Flow Rate FiO2 09/30/16 15:25 100 2.0 09/30/16 15:25 60 16 102/46 Nasal Cannula 09/30/16 13:30 30 09/30/16 12:00 98.0 Intake and Output 09/29/16 09/29/16 09/30/16 15:00 23:00 07:00 Intake Total 253.320 ml 414.632 ml 375.52 ml Output Total 390 ml 505 ml 230 ml Balance -136.680 ml -90.368 ml 145.52 ml Exam Review of Systems: CONSTITUTIONAL: No fevers, chills. PULMONARY: No sob CARDIOVASCULAR: No chest pain/palpitations GASTROINTESTINAL: No nausea/vomiting. GENITOURINARY: No hematuria/dysuria. MUSCULOSKELETAL: No myagias/arthalgias. PSYCHIATRIC: The patient denies depression. NEUROLOGIC: lethargic Constitutional: alert Psych: no complaints Head: normocephalic ENMT: mucosa pink and moist Neck: jvd (9 cm water) Respiratory: diminished breath sounds (at bases/B) Cardiovascular: regular rate and rhythm Gastrointestinal: non-tender, soft Musculoskeletal: muscle tone (normal) Extremities: edema (none) Neurological: other (No focal deficits) Results Result Diagram: 09/30/16 0330 09/30/16 0330 Results 24 hrs Laboratory Tests Test 09/29/16 18:17 09/29/16 23:35 09/30/16 03:30 09/30/16 05:31 Bedside Glucose 100 108 107 White Blood Count 4.5 L Red Blood Count 3.02 L Hemoglobin 8.1 L Hematocrit 27.0 L Mean Corpuscular Volume 89.4 Mean Corpuscular Hemoglobin 26.8 L Mean Corpuscular Hemoglobin Concent 30.0 L Red Cell Distribution Width 22.5 H Platelet Count 165 # Mean Platelet Volume 11.9 H Neutrophils % 71.5 Lymphocytes % 16.4 Monocytes % 7.1 Eosinophils % 4.4 Basophils % 0.2 Nucleated Red Blood Cells % 0.4 H Neutrophils # 3.2 Lymphocytes # 0.7 L Monocytes # 0.3 Eosinophils # 0.2 Basophils # 0.0 Nucleated Red Blood Cells # 0.0 Sodium Level 150 H Potassium Level 3.9 Chloride Level 113 H Carbon Dioxide Level 27 Anion Gap 14 Blood Urea Nitrogen 43 H Creatinine 1.65 H Glucose Level 104 Calcium Level 9.0 Phosphorus Level 1.5 L Albumin 2.6 L Test 09/30/16 08:00 09/30/16 12:19 Blood Gas Specimen Source Blood arterial Arterial Blood Date Drawn 09/30/2016 8:40:38 AM Arterial Blood pH (Temp corrected) 7.468 H Arterial Blood pCO2 (Temp correct) 36.1 Arterial Blood pO2 (Temp corrected) 110.0 H Arterial Blood HCO3 25.6 Arterial Blood Base Excess 1.9 Arterial Blood Oxygen Saturation 97.8 Sebastien Test ACCEPTAB Arterial Blood Gas Puncture Site Right Radial Arterial Blood Carboxyhemoglobin 0.2 Arterial Blood Methemoglobin 0.4 Blood Gas A-a O2 Differential 61.5 H Oxyhemoglobin Percent 97.2 Total Hemoglobin 10.1 L Blood Gas Temperature 37.0 Blood Gas Actual Respiration Rate 23 Blood Gas Modality VENT - CPAP FiO2 30.0 Blood Gas Low PEEP Setting 5.0 Blood Gas Pressure Support 10 Blood Gas Notified Whom JLD Blood Gas Notified Time 09/30/2016 8:58:18 AM Bedside Glucose 116 Medications Medications Current Medications Apixaban (Eliquis) 2.5 mg BID PO Last administered on 09/30/16 09:03; Admin Dose 2.5 MG; Start 09/19/16 at 21:00; Status Future Hold Ascorbic Acid (Vitamin C) 500 mg DAILY PO Last administered on 09/30/16 09:03; Admin Dose 500 MG; Start 09/20/16 at 09:00 Aspirin (Aspirin) 81 mg DAILY PO Last administered on 09/30/16 09:04; Admin Dose 81 MG; Start 09/20/16 at 09:00 Carvedilol (Coreg) 1.5625 mg BID PO Last administered on 09/22/16 20:47; Admin Dose 1.5625 MG; Start 09/19/16 at 21:00; Status Future Hold Digoxin (Digoxin) 0.125 mg Q2D@13 PO ; Start 09/21/16 at 13:00; Status Future Hold Pantoprazole (Protonix Iv) 40 mg BID@06,18 IV Last administered on 09/30/16 05: 26; Admin Dose 40 MG; Start 09/20/16 at 06:00 Furosemide 20 mg 20 mg DAILY@06 IV Last administered on 09/30/16 05:27; Admin Dose 20 MG; Start 09/20/16 at 06:00 Norepinephrine 16 mg/Dextrose 500 ml @ 1.87 mls/hr TITRATE IV Last administered on 09/26/16 04:40; Admin Dose 5.62 MLS/HR; Start 09/20/16 at 02:00 Midazolam HCl (Versed) 50 ml @ 1 mls/hr TITRATE IV Last administered on 15:03; Admin Dose 6 MLS/HR; Start 09/20/16 at 02:00 Miscellaneous Information 1 ea NOTE XX ; Start 09/21/16 at 14:00 Glucose (Glutose) 15 gm Q15M PRN PO DECREASED GLUCOSE; Start 09/21/16 at 14:00 Glucose (Glutose) 22.5 gm Q15M PRN PO DECREASED GLUCOSE; Start 09/21/16 at 14: 00 Dextrose (D50w Syringe) 25 ml Q15M PRN IV DECREASED GLUCOSE; Start 09/21/16 at 14:00 Dextrose (D50w Syringe) 50 ml Q15M PRN IV DECREASED GLUCOSE; Start 09/21/16 at 14:00 Glucagon (Glucagen) 1 mg Q15M PRN IM DECREASED GLUCOSE; Start 09/21/16 at 14:00 Glucose (Glutose) 15 gm Q15M PRN BUCCAL DECREASED GLUCOSE; Start 09/21/16 at 14 :00 IV Flush (NS 10 ml) 10 ml PRN PRN IV IV PROTOCOL; Start 09/22/16 at 18:30 Docusate Sodium (Colace Liquid Cup) 200 mg QHS NGT Last administered on 20:31; Admin Dose 200 MG; Start 09/24/16 at 21:00 Potassium Chloride (Potassium Chloride Pwd/Soln) 20 meq BID NGT Last administered on 09/30/16 09:04; Admin Dose 20 MEQ; Start 09/27/16 at 09:00 Lorazepam 1 mg 1 mg Q4H PRN IV AGITATION/ANXIETY; Start 09/27/16 at 17:30 Propofol (Diprivan) 100 ml @ 2.22 mls/hr Q12H IV Last administered on 17:13; Admin Dose 4.44 MLS/HR; Start 09/27/16 at 14:00 Morphine Sulfate (morphine) 2 mg Q4H PRN IV PAIN Last administered on 09/28/16 11:56; Admin Dose 2 MG; Start 09/28/16 at 11:30 Povidone Iodine (Povidone-Iodine) 1 applic DAILY TOP Last administered on 09:06; Admin Dose 1 APPLIC; Start 09/29/16 at 09:00 Collagenase (Santyl) 1 applic DAILY TOP Last administered on 09/30/16 09:06; Admin Dose 1 APPLIC; Start 09/28/16 at 19:30 Insulin Aspart (Novolog Insulin Pen) NOVOLOG *MILD* ALGORI... Q6 SC ; Start 09/29 at 06:00 Sodium Phosphate 250 mg 250 mg BID PO Last administered on 09/30/16 09:05; Admin Dose 250 MG; Start 09/29/16 at 21:00; Stop 10/03/16 at 20:59 Fluconazole (Diflucan 200 Mg/ NS (Pmx)) 100 ml @ 100 mls/hr Q24H IVPB Last administered on 09/30/16 16:42; Admin Dose 100 MLS/HR; Start 09/30/16 at 16:30 POLI SAN September 30, 2016 17:04
[2016-09-30] MEDS ORDERED: SODIUM PHOSPHATE 15 MMOL in SOD CHLORIDE 0.9% 250 ML IVPB ONE (19:00)
[2016-09-30] MEDS: DOCUSATE SODIUM 10 MG/ML (10ML CUP) NGT SCH (21:00)
--- NOTE | 2016-09-30 21:17 | PN ---
Date/Time of Note Date/Time of Note DATE: 09/30/16 TIME: 21:16 Assessment/Plan VTE Prophylaxis VTE Prophylaxis Intervention: other Lines/Catheters IV Catheter Type (from Nrs): PICC Line Central line still needed: Yes Urinary Cath still in place: Yes Reason Cath still needed: other (indicate) Assessment/Plan Chief Complaint/Hosp Course IMPRESSION: 1. Acute hypoxic respiratory failure.on vent 2. Patient has a chronic systolic heart failure. 3. Chronic kidney disease requiring hemodialysis. 4. History of acute tubular necrosis. 5. Cardiomyopathy. 6. Anemia. 7. Neutropenia. 8. The patient has hypoalbuminemia. 9. Patient has ventilator dependent respiratory failure. 10. History of sepsis. 11. Septic shock. 12 hypokalemia better 13 HYPOPHOSPHATEMIA plan continue hd weaning d/w family hd MWF Problems: Subjective 24 Hr Interval Summary Cardiovascular: no complaints Gastrointestinal: no complaints Exam/Review of Systems Vital Signs Vitals Vital Signs Date Time Temp Pulse Resp B/P Pulse Ox O2 Delivery O2 Flow Rate FiO2 09/30/16 20:00 60 09/30/16 20:00 97.6 21 96/52 100 Nasal Cannula 2.0 09/30/16 13:30 30 Intake and Output 09/29/16 09/29/16 09/30/16 15:00 23:00 07:00 Intake Total 253.320 ml 414.632 ml 375.52 ml Output Total 390 ml 505 ml 230 ml Balance -136.680 ml -90.368 ml 145.52 ml Exam Neck: supple Respiratory: clear to auscultation Cardiovascular: regular rate and rhythm Gastrointestinal: soft Musculoskeletal: nl extremities to inspection Extremities: normal pulses Results Result Diagram: 09/30/16 0330 09/30/16 0330 Results 24 hrs Laboratory Tests Test 09/29/16 23:35 09/30/16 03:30 09/30/16 05:31 09/30/16 08:00 Bedside Glucose 108 107 White Blood Count 4.5 L Red Blood Count 3.02 L Hemoglobin 8.1 L Hematocrit 27.0 L Mean Corpuscular Volume 89.4 Mean Corpuscular Hemoglobin 26.8 L Mean Corpuscular Hemoglobin Concent 30.0 L Red Cell Distribution Width 22.5 H Platelet Count 165 # Mean Platelet Volume 11.9 H Neutrophils % 71.5 Lymphocytes % 16.4 Monocytes % 7.1 Eosinophils % 4.4 Basophils % 0.2 Nucleated Red Blood Cells % 0.4 H Neutrophils # 3.2 Lymphocytes # 0.7 L Monocytes # 0.3 Eosinophils # 0.2 Basophils # 0.0 Nucleated Red Blood Cells # 0.0 Sodium Level 150 H Potassium Level 3.9 Chloride Level 113 H Carbon Dioxide Level 27 Anion Gap 14 Blood Urea Nitrogen 43 H Creatinine 1.65 H Glucose Level 104 Calcium Level 9.0 Phosphorus Level 1.5 L Albumin 2.6 L Blood Gas Specimen Source Blood arterial Arterial Blood Date Drawn 09/30/2016 8:40:38 AM Arterial Blood pH (Temp corrected) 7.468 H Arterial Blood pCO2 (Temp correct) 36.1 Arterial Blood pO2 (Temp corrected) 110.0 H Arterial Blood HCO3 25.6 Arterial Blood Base Excess 1.9 Arterial Blood Oxygen Saturation 97.8 Sebastien Test ACCEPTAB Arterial Blood Gas Puncture Site Right Radial Arterial Blood Carboxyhemoglobin 0.2 Arterial Blood Methemoglobin 0.4 Blood Gas A-a O2 Differential 61.5 H Oxyhemoglobin Percent 97.2 Total Hemoglobin 10.1 L Blood Gas Temperature 37.0 Blood Gas Actual Respiration Rate 23 Blood Gas Modality VENT - CPAP FiO2 30.0 Blood Gas Low PEEP Setting 5.0 Blood Gas Pressure Support 10 Blood Gas Notified Whom JLD Blood Gas Notified Time 09/30/2016 8:58:18 AM Test 09/30/16 12:19 09/30/16 18:03 09/30/16 19:57 Bedside Glucose 116 83 Phosphorus Level 2.6 Medications Medications Current Medications Apixaban (Eliquis) 2.5 mg BID PO Last administered on 09/30/16 09:03; Admin Dose 2.5 MG; Start 09/19/16 at 21:00; Status Future Hold Ascorbic Acid (Vitamin C) 500 mg DAILY PO Last administered on 09/30/16 09:03; Admin Dose 500 MG; Start 09/20/16 at 09:00 Aspirin (Aspirin) 81 mg DAILY PO Last administered on 09/30/16 09:04; Admin Dose 81 MG; Start 09/20/16 at 09:00 Carvedilol (Coreg) 1.5625 mg BID PO Last administered on 09/22/16 20:47; Admin Dose 1.5625 MG; Start 09/19/16 at 21:00; Status Future Hold Digoxin (Digoxin) 0.125 mg Q2D@13 PO ; Start 09/21/16 at 13:00; Status Future Hold Pantoprazole (Protonix Iv) 40 mg BID@06,18 IV Last administered on 09/30/16 18: 05; Admin Dose 40 MG; Start 09/20/16 at 06:00 Furosemide 20 mg 20 mg DAILY@06 IV Last administered on 09/30/16 05:27; Admin Dose 20 MG; Start 09/20/16 at 06:00 Norepinephrine 16 mg/Dextrose 500 ml @ 1.87 mls/hr TITRATE IV Last administered on 09/26/16 04:40; Admin Dose 5.62 MLS/HR; Start 09/20/16 at 02:00 Midazolam HCl (Versed) 50 ml @ 1 mls/hr TITRATE IV Last administered on 15:03; Admin Dose 6 MLS/HR; Start 09/20/16 at 02:00 Miscellaneous Information 1 ea NOTE XX ; Start 09/21/16 at 14:00 Glucose (Glutose) 15 gm Q15M PRN PO DECREASED GLUCOSE; Start 09/21/16 at 14:00 Glucose (Glutose) 22.5 gm Q15M PRN PO DECREASED GLUCOSE; Start 09/21/16 at 14: 00 Dextrose (D50w Syringe) 25 ml Q15M PRN IV DECREASED GLUCOSE; Start 09/21/16 at 14:00 Dextrose (D50w Syringe) 50 ml Q15M PRN IV DECREASED GLUCOSE; Start 09/21/16 at 14:00 Glucagon (Glucagen) 1 mg Q15M PRN IM DECREASED GLUCOSE; Start 09/21/16 at 14:00 Glucose (Glutose) 15 gm Q15M PRN BUCCAL DECREASED GLUCOSE; Start 09/21/16 at 14 :00 IV Flush (NS 10 ml) 10 ml PRN PRN IV IV PROTOCOL; Start 09/22/16 at 18:30 Docusate Sodium (Colace Liquid Cup) 200 mg QHS NGT Last administered on 20:31; Admin Dose 200 MG; Start 09/24/16 at 21:00 Potassium Chloride (Potassium Chloride Pwd/Soln) 20 meq BID NGT Last administered on 09/30/16 09:04; Admin Dose 20 MEQ; Start 09/27/16 at 09:00 Lorazepam 1 mg 1 mg Q4H PRN IV AGITATION/ANXIETY; Start 09/27/16 at 17:30 Propofol (Diprivan) 100 ml @ 2.22 mls/hr Q12H IV Last administered on 17:13; Admin Dose 4.44 MLS/HR; Start 09/27/16 at 14:00 Morphine Sulfate (morphine) 2 mg Q4H PRN IV PAIN Last administered on 09/28/16 11:56; Admin Dose 2 MG; Start 09/28/16 at 11:30 Povidone Iodine (Povidone-Iodine) 1 applic DAILY TOP Last administered on 09:06; Admin Dose 1 APPLIC; Start 09/29/16 at 09:00 Collagenase (Santyl) 1 applic DAILY TOP Last administered on 09/30/16 09:06; Admin Dose 1 APPLIC; Start 09/28/16 at 19:30 Insulin Aspart (Novolog Insulin Pen) NOVOLOG *MILD* ALGORI... Q6 SC ; Start 09/29 at 06:00 Sodium Phosphate 250 mg 250 mg BID PO Last administered on 09/30/16 09:05; Admin Dose 250 MG; Start 09/29/16 at 21:00; Stop 10/03/16 at 20:59 Fluconazole (Diflucan 200 Mg/ NS (Pmx)) 100 ml @ 100 mls/hr Q24H IVPB Last administered on 09/30/16 16:42; Admin Dose 100 MLS/HR; Start 09/30/16 at 16:30 YANIRA HART MD September 30, 2016 21:17
[2016-10-01] VITALS (24 sets, daily range): BP systolic 98–128; BP diastolic 45–87; PULSE 60–72; RESP 17–35
[2016-10-01] MEDS: morphine 2 MG INJ IV PRN (00:05)
[2016-10-01 04:50] LABS: ADD SCAN DIFF NO
[2016-10-01 05:03] LABS: ABNORMAL IP MESSAGE 1; BASOPHILS % 0.9 % (0.0-2.0); EOSINOPHILS # 0.1 10^3/ul (0.0-0.5); EOSINOPHILS % 2.9 % (0.0-7.0); HEMATOCRIT 29.4 % (42.0-52.0); HEMOGLOBIN 8.8 g/dl (14.0-18.0); LYMPHOCYTES % 21.8 % (15.0-51.0); MEAN CORPUSCULAR HGB CONC 29.9 g/dl (32.0-37.0); MEAN CORPUSCULAR VOLUME 90.2 fl (82.0-101.0); MEAN PLATELET VOLUME 12.3 fl (7.4-10.4); MONOCYTE # 0.3 10^3/ul (0.3-0.9); MONOCYTES % 6.7 % (0.0-11.0); NEUTROPHILS % 67.5 % (39.0-77.0); PLATELET COUNT 175 10^3/UL (140-415); RED BLOOD COUNT 3.26 10^6/ul (4.70-6.10); WHITE BLOOD COUNT 4.5 10^3/ul (4.8-10.8)
[2016-10-01 05:08] LABS: INR 1.75; PROTIME 20.6 Sec (12.2-14.2); PT RATIO 1.6
[2016-10-01 05:13] LABS: ALBUMIN 3.4 g/dl (3.3-4.9)
[2016-10-01 05:14] LABS: PARTIAL THROMBOPLASTIN TIME 45.5 Sec (25.0-35.0); POTASSIUM 4.8 mmol/L (3.5-5.1)
[2016-10-01 05:16] LABS: BILIRUBIN,DIRECT 0.1 mg/dl (0.00-0.20); BILIRUBIN,INDIRECT 1.1 mg/dl (0-1.1); BILIRUBIN,TOTAL 1.2 mg/dl (0.2-1.3); CREATININE 1.36 mg/dl (0.61-1.24); TOTAL PROTEIN 6.7 g/dl (6.1-8.1)
[2016-10-01] MEDS: INSULIN ASPART [NOVOLOG] 3 ML PEN SC SCH ×4 (05:26→18:00)
[2016-10-01] MEDS: PANTOPRAZOLE 40 MG INJ IV SCH ×2 (05:26→17:49)
[2016-10-01] MEDS: FUROSEMIDE 20 MG INJ IV SCH (05:28)
[2016-10-01] MEDS: SOD PHOS MONO/DIBAS 250 MG TAB PO SCH ×2 (09:00→21:00)
[2016-10-01] MEDS: ASPIRIN 81 MG TAB PO SCH (09:48)
[2016-10-01] MEDS: POTASSIUM CHLORIDE 20 MEQ POWDER FOR ORAL SOLN NGT SCH ×2 (09:49→20:45)
[2016-10-01] MEDS: COLLAGENASE 30 GM TUBE TOP SCH (09:49)
[2016-10-01] MEDS: ASCORBIC ACID 500 MG TAB PO SCH (09:49)
[2016-10-01] MEDS: POVIDONE IODINE 10% 28.4 GM OINT TOP SCH (09:50)
--- NOTE | 2016-10-01 10:05 | CONS ---
Date/Time of Note Date/Time of Note DATE: 10/01/16 TIME: 09:40 Consult Date/Type/Reason Admit Date/Time Sep 19, 2016 at 14:51 Initial Consult Date Type of Consultation: pulmonary ICU Ordering Provider: THERESA RIVERA Patient remains stable post extubation no events overnight. Objective Vital Signs Date Time Temp Pulse Resp B/P Pulse Ox O2 Delivery O2 Flow Rate FiO2 10/01/16 06:00 60 25 101/50 100 Nasal Cannula 2.0 10/01/16 04:00 97.6 09/30/16 13:30 30 Intake and Output 09/30/16 09/30/16 10/01/16 15:00 23:00 07:00 Intake Total 752.22 ml 100 ml 0 ml Output Total 3195 ml 175 ml 35 ml Balance -2442.78 ml -75 ml -35 ml Results/Medications Result Diagram: 10/01/16 0400 10/01/16 0400 Results 24 hrs Laboratory Tests Test 09/30/16 12:19 09/30/16 18:03 09/30/16 19:57 10/01/16 00:01 Bedside Glucose 116 83 80 Phosphorus Level 2.6 Test 10/01/16 04:00 10/01/16 05:23 10/01/16 05:54 White Blood Count 4.5 L Red Blood Count 3.26 L Hemoglobin 8.8 L Hematocrit 29.4 L Mean Corpuscular Volume 90.2 Mean Corpuscular Hemoglobin 27.0 L Mean Corpuscular Hemoglobin Concent 29.9 L Red Cell Distribution Width 23.0 H Platelet Count 175 Mean Platelet Volume 12.3 H Neutrophils % 67.5 Lymphocytes % 21.8 Monocytes % 6.7 Eosinophils % 2.9 Basophils % 0.9 Nucleated Red Blood Cells % 0.0 Neutrophils # 3.0 Lymphocytes # 1.0 Monocytes # 0.3 Eosinophils # 0.1 Basophils # 0.0 Nucleated Red Blood Cells # 0.0 Prothrombin Time 20.6 #H Prothrombin Time Ratio 1.6 INR International Normalized Ratio 1.75 Activated Partial Thromboplast Time 45.5 H Sodium Level 143 Potassium Level 4.8 Chloride Level 103 # Carbon Dioxide Level 27 Anion Gap 18 H Blood Urea Nitrogen 29 #H Creatinine 1.36 H Glucose Level 71 Calcium Level 9.0 Total Bilirubin 1.2 Direct Bilirubin 0.10 Indirect Bilirubin 1.1 Aspartate Amino Transf (AST/SGOT) 17 Alanine Aminotransferase (ALT/SGPT) 23 Alkaline Phosphatase 82 Total Protein 6.7 Albumin 3.4 Bedside Glucose 76 Lab Scanned Report BLOOD TRANSFUSION Medications Current Medications Apixaban (Eliquis) 2.5 mg BID PO Last administered on 09/30/16 09:03; Admin Dose 2.5 MG; Start 09/19/16 at 21:00; Status Future Hold Ascorbic Acid (Vitamin C) 500 mg DAILY PO Last administered on 09/30/16 09:03; Admin Dose 500 MG; Start 09/20/16 at 09:00 Aspirin (Aspirin) 81 mg DAILY PO Last administered on 09/30/16 09:04; Admin Dose 81 MG; Start 09/20/16 at 09:00 Carvedilol (Coreg) 1.5625 mg BID PO Last administered on 09/22/16 20:47; Admin Dose 1.5625 MG; Start 09/19/16 at 21:00; Status Future Hold Digoxin (Digoxin) 0.125 mg Q2D@13 PO ; Start 09/21/16 at 13:00; Status Future Hold Pantoprazole (Protonix Iv) 40 mg BID@06,18 IV Last administered on 10/01/16 05: 26; Admin Dose 40 MG; Start 09/20/16 at 06:00 Furosemide 20 mg 20 mg DAILY@06 IV Last administered on 10/01/16 05:28; Admin Dose 20 MG; Start 09/20/16 at 06:00 Norepinephrine 16 mg/Dextrose 500 ml @ 1.87 mls/hr TITRATE IV Last administered on 09/26/16 04:40; Admin Dose 5.62 MLS/HR; Start 09/20/16 at 02:00 Midazolam HCl (Versed) 50 ml @ 1 mls/hr TITRATE IV Last administered on 15:03; Admin Dose 6 MLS/HR; Start 09/20/16 at 02:00 Miscellaneous Information 1 ea NOTE XX ; Start 09/21/16 at 14:00 Glucose (Glutose) 15 gm Q15M PRN PO DECREASED GLUCOSE; Start 09/21/16 at 14:00 Glucose (Glutose) 22.5 gm Q15M PRN PO DECREASED GLUCOSE; Start 09/21/16 at 14: 00 Dextrose (D50w Syringe) 25 ml Q15M PRN IV DECREASED GLUCOSE; Start 09/21/16 at 14:00 Dextrose (D50w Syringe) 50 ml Q15M PRN IV DECREASED GLUCOSE; Start 09/21/16 at 14:00 Glucagon (Glucagen) 1 mg Q15M PRN IM DECREASED GLUCOSE; Start 09/21/16 at 14:00 Glucose (Glutose) 15 gm Q15M PRN BUCCAL DECREASED GLUCOSE; Start 09/21/16 at 14 :00 IV Flush (NS 10 ml) 10 ml PRN PRN IV IV PROTOCOL; Start 09/22/16 at 18:30 Docusate Sodium (Colace Liquid Cup) 200 mg QHS NGT Last administered on 20:31; Admin Dose 200 MG; Start 09/24/16 at 21:00 Potassium Chloride (Potassium Chloride Pwd/Soln) 20 meq BID NGT Last administered on 09/30/16 09:04; Admin Dose 20 MEQ; Start 09/27/16 at 09:00 Lorazepam 1 mg 1 mg Q4H PRN IV AGITATION/ANXIETY; Start 09/27/16 at 17:30 Propofol (Diprivan) 100 ml @ 2.22 mls/hr Q12H IV Last administered on 17:13; Admin Dose 4.44 MLS/HR; Start 09/27/16 at 14:00 Morphine Sulfate (morphine) 2 mg Q4H PRN IV PAIN Last administered on 10/01/16 00:05; Admin Dose 2 MG; Start 09/28/16 at 11:30 Povidone Iodine (Povidone-Iodine) 1 applic DAILY TOP Last administered on 09:06; Admin Dose 1 APPLIC; Start 09/29/16 at 09:00 Collagenase (Santyl) 1 applic DAILY TOP Last administered on 09/30/16 09:06; Admin Dose 1 APPLIC; Start 09/28/16 at 19:30 Insulin Aspart (Novolog Insulin Pen) NOVOLOG *MILD* ALGORI... Q6 SC ; Start 09/29 at 06:00 Sodium Phosphate 250 mg 250 mg BID PO Last administered on 09/30/16 09:05; Admin Dose 250 MG; Start 09/29/16 at 21:00; Stop 10/03/16 at 20:59 Fluconazole (Diflucan 200 Mg/ NS (Pmx)) 100 ml @ 100 mls/hr Q24H IVPB Last administered on 09/30/16t 16:42; Admin Dose 100 MLS/HR; Start 09/30/16 at 16:30 Assessment/Plan Chief Complaint/Hosp Course Assessment 1. Status post hypoxemic respiratory failure 2. Aspiration pneumonia 3. Renal insufficiency 4. Deconditioning Plan 1. Speech therapy recommendations advance diet 2. Physical therapy eval 3. Acute rehab eval 4. Transfer to telemetry 5. The de-escalate antibiotics Disposition Transfer to telemetry Problems: HERMAN CARDENAS MD, FCCP October 01, 2016 10:00
--- NOTE | 2016-10-01 11:49 | CONS ---
Date/Time of Note Date/Time of Note DATE: 10/01/16 TIME: 11:47 Assessment/Plan Assessment/Plan Chief Complaint/Hosp Course IMPRESSION: 1. Hypotension/shock state, question cardiogenic versus septic unlikely as patient had a low EF with negative cardiac enzymes-Now off Levo with reasonable BP 2. Congestive heart failure, systolic, acute on chronic. 3. Coronary artery disease, status post coronary artery bypass graft surgery. 4. Chronic kidney disease on hemodialysis. 5. Coagulopathy secondary to Eliquis. 6. History of paroxysmal atrial fibrillation. 7. Sepsis-improving off pressors 8. Elevated digoxin level. 9. Anemia Recc: -Tele -Contnue asa -Resume eliquis -HD for volume removal as tolerated only -Continue abx's and f/u cx data -Follow BP closely and if BP remains stable will resume baseline low dose coreg/ hydralazine Problems: Consultation Date/Type/Reason Admit Date/Time Sep 19, 2016 at 14:51 Initial Consult Date 09/23/2016 Type of Consultation: Cardiology Reason for Consultation hypotension/AF/cardiomyopathy Referring Provider: THERESA RIVERA Exam/Review of Systems Vital Signs Vitals Vital Signs Date Time Temp Pulse Resp B/P Pulse Ox O2 Delivery O2 Flow Rate FiO2 10/01/16 09:00 66 29 128/54 100 Nasal Cannula 2.0 10/01/16 08:00 97.8 09/30/16 13:30 30 Intake and Output 09/30/16 09/30/16 10/01/16 15:00 23:00 07:00 Intake Total 752.22 ml 100 ml 0 ml Output Total 3195 ml 175 ml 35 ml Balance -2442.78 ml -75 ml -35 ml Exam Review of Systems: CONSTITUTIONAL: No fevers, chills. PULMONARY: No sob CARDIOVASCULAR: No chest pain/palpitations GASTROINTESTINAL: No nausea/vomiting. GENITOURINARY: No hematuria/dysuria. MUSCULOSKELETAL: No myagias/arthalgias. PSYCHIATRIC: The patient denies depression. NEUROLOGIC: mild generalized weakness Constitutional: alert Psych: no complaints Head: normocephalic ENMT: mucosa pink and moist Neck: jvd (9 cm water), supple Respiratory: diminished breath sounds (at bases/B) Cardiovascular: regular rate and rhythm Gastrointestinal: non-tender, soft Musculoskeletal: muscle tone (normal) Extremities: edema (none) Neurological: lethargic Results Result Diagram: 10/01/16 0400 10/01/16 0400 Results 24 hrs Laboratory Tests Test 09/30/16 12:19 09/30/16 18:03 09/30/16 19:57 10/01/16 00:01 Bedside Glucose 116 83 80 Phosphorus Level 2.6 Test 10/01/16 04:00 10/01/16 05:23 10/01/16 05:54 White Blood Count 4.5 L Red Blood Count 3.26 L Hemoglobin 8.8 L Hematocrit 29.4 L Mean Corpuscular Volume 90.2 Mean Corpuscular Hemoglobin 27.0 L Mean Corpuscular Hemoglobin Concent 29.9 L Red Cell Distribution Width 23.0 H Platelet Count 175 Mean Platelet Volume 12.3 H Neutrophils % 67.5 Lymphocytes % 21.8 Monocytes % 6.7 Eosinophils % 2.9 Basophils % 0.9 Nucleated Red Blood Cells % 0.0 Neutrophils # 3.0 Lymphocytes # 1.0 Monocytes # 0.3 Eosinophils # 0.1 Basophils # 0.0 Nucleated Red Blood Cells # 0.0 Prothrombin Time 20.6 #H Prothrombin Time Ratio 1.6 INR International Normalized Ratio 1.75 Activated Partial Thromboplast Time 45.5 H Sodium Level 143 Potassium Level 4.8 Chloride Level 103 # Carbon Dioxide Level 27 Anion Gap 18 H Blood Urea Nitrogen 29 #H Creatinine 1.36 H Glucose Level 71 Calcium Level 9.0 Total Bilirubin 1.2 Direct Bilirubin 0.10 Indirect Bilirubin 1.1 Aspartate Amino Transf (AST/SGOT) 17 Alanine Aminotransferase (ALT/SGPT) 23 Alkaline Phosphatase 82 Total Protein 6.7 Albumin 3.4 Bedside Glucose 76 Lab Scanned Report BLOOD TRANSFUSION Medications Medications Current Medications Apixaban (Eliquis) 2.5 mg BID PO Last administered on 09/30/16 09:03; Admin Dose 2.5 MG; Start 09/19/16 at 21:00; Status Future Hold Ascorbic Acid (Vitamin C) 500 mg DAILY PO Last administered on 10/01/16 09:49; Admin Dose 500 MG; Start 09/20/16 at 09:00 Aspirin (Aspirin) 81 mg DAILY PO Last administered on 10/01/16 09:48; Admin Dose 81 MG; Start 09/20/16 at 09:00 Carvedilol (Coreg) 1.5625 mg BID PO Last administered on 09/22/16 20:47; Admin Dose 1.5625 MG; Start 09/19/16 at 21:00; Status Future Hold Digoxin (Digoxin) 0.125 mg Q2D@13 PO ; Start 09/21/16 at 13:00; Status Future Hold Pantoprazole (Protonix Iv) 40 mg BID@06,18 IV Last administered on 10/01/16 05: 26; Admin Dose 40 MG; Start 09/20/16 at 06:00 Furosemide 20 mg 20 mg DAILY@06 IV Last administered on 10/01/16 05:28; Admin Dose 20 MG; Start 09/20/16 at 06:00 Norepinephrine 16 mg/Dextrose 500 ml @ 1.87 mls/hr TITRATE IV Last administered on 09/26/16 04:40; Admin Dose 5.62 MLS/HR; Start 09/20/16 at 02:00 Midazolam HCl (Versed) 50 ml @ 1 mls/hr TITRATE IV Last administered on 15:03; Admin Dose 6 MLS/HR; Start 09/20/16 at 02:00 Miscellaneous Information 1 ea NOTE XX ; Start 09/21/16 at 14:00 Glucose (Glutose) 15 gm Q15M PRN PO DECREASED GLUCOSE; Start 09/21/16 at 14:00 Glucose (Glutose) 22.5 gm Q15M PRN PO DECREASED GLUCOSE; Start 09/21/16 at 14: 00 Dextrose (D50w Syringe) 25 ml Q15M PRN IV DECREASED GLUCOSE; Start 09/21/16 at 14:00 Dextrose (D50w Syringe) 50 ml Q15M PRN IV DECREASED GLUCOSE; Start 09/21/16 at 14:00 Glucagon (Glucagen) 1 mg Q15M PRN IM DECREASED GLUCOSE; Start 09/21/16 at 14:00 Glucose (Glutose) 15 gm Q15M PRN BUCCAL DECREASED GLUCOSE; Start 09/21/16 at 14 :00 IV Flush (NS 10 ml) 10 ml PRN PRN IV IV PROTOCOL; Start 09/22/16 at 18:30 Docusate Sodium (Colace Liquid Cup) 200 mg QHS NGT Last administered on 20:31; Admin Dose 200 MG; Start 09/24/16 at 21:00 Potassium Chloride (Potassium Chloride Pwd/Soln) 20 meq BID NGT Last administered on 10/01/16 09:49; Admin Dose 20 MEQ; Start 09/27/16 at 09:00 Lorazepam 1 mg 1 mg Q4H PRN IV AGITATION/ANXIETY; Start 09/27/16 at 17:30 Propofol (Diprivan) 100 ml @ 2.22 mls/hr Q12H IV Last administered on 17:13; Admin Dose 4.44 MLS/HR; Start 09/27/16 at 14:00 Morphine Sulfate (morphine) 2 mg Q4H PRN IV PAIN Last administered on 10/01/16 00:05; Admin Dose 2 MG; Start 09/28/16 at 11:30 Povidone Iodine (Povidone-Iodine) 1 applic DAILY TOP Last administered on 09:50; Admin Dose 1 APPLIC; Start 09/29/16 at 09:00 Collagenase (Santyl) 1 applic DAILY TOP Last administered on 10/01/16 09:49; Admin Dose 1 APPLIC; Start 09/28/16 at 19:30 Insulin Aspart (Novolog Insulin Pen) NOVOLOG *MILD* ALGORI... Q6 SC ; Start 09/29 at 06:00 Sodium Phosphate 250 mg 250 mg BID PO Last administered on 09/30/16 09:05; Admin Dose 250 MG; Start 09/29/16 at 21:00; Stop 10/03/16 at 20:59 Fluconazole (Diflucan 200 Mg/ NS (Pmx)) 100 ml @ 100 mls/hr Q24H IVPB Last administered on 09/30/16 16:42; Admin Dose 100 MLS/HR; Start 09/30/16 at 16:30 POLI SAN October 01, 2016 11:49
--- NOTE | 2016-10-01 12:08 | PN ---
DATE: 10/01/2016 SUBJECTIVE: No events overnight. No fevers. Patient was extubated yesterday. He is alert, looks comfortable. Denies pain, discomfort. WBC 4.5, no shift, no bands. INDWELLINGS: Right chest PermaCath, Gan catheter. PHYSICAL EXAMINATION: GENERAL: Fragile, elderly man who is in no distress. HEENT: Head atraumatic, normocephalic. Sclerae anicteric. Buccal mucosa dry. NECK: Supple, trachea midline. CHEST: Rise symmetrical. Breath sounds diminished to bases. HEART: S1, S2. ABDOMEN: Soft, bowel tones present. EXTREMITIES: Without cyanosis. ASSESSMENT: 1. Status post respiratory failure secondary to aspiration event and pulmonary edema. 2. Chary albicans urinary tract infection. 3. Bilateral lower extremity diabetic foot ulcerations. 4. Diabetes. 5. Chronic kidney disease, hemodialysis dependent. 6. History of coronary artery bypass graft and paroxysmal atrial fibrillation. PLAN: The patient remains stable post-extubation. Plan to send him to telemetry. He was started o n fluconazole yesterday; however, he was treated with Cancidas already, and therefore, we are going to discontinue Diflucan now. We will monitor him off antibiotics and panculture p.r.n. Dictated By: ADA MICHELLE [employer] MARK[employer] for [employer]/SHAHANA Conf#: [id number] DID#: [id number]
[2016-10-01] MEDS: DIGOXIN 0.125 MG TAB PO SCH (13:41)
[2016-10-01] MEDS: PROPOFOL 100 ML IV SCH (14:00)
--- NOTE | 2016-10-01 16:34 | CONS ---
Date/Time of Note Date/Time of Note DATE: 10/01/16 TIME: 16:30 Assessment/Plan Assessment/Plan Chief Complaint/Hosp Course IMPRESSION: 1. s/p hypoxic res failure off vent 2. Patient has a chronic systolic heart failure. 3. Chronic kidney disease requiring hemodialysis. 4. History of acute tubular necrosis. 5. Cardiomyopathy. 6. Anemia. 7. Neutropenia. 8. The patient has hypoalbuminemia. 9. Patient has ventilator dependent respiratory failure. 10. History of sepsis. 11. Septic shock. 12 hypokalemia better 13 HYPOPHOSPHATEMIA better plan continue hd d/w family hd MWF Problems: Consultation Date/Type/Reason Admit Date/Time Sep 19, 2016 at 14:51 Type of Consultation: renal Referring Provider: THERESA RIVERA 24 HR Interval Summary Constitutional: no complaints Exam/Review of Systems Vital Signs Vitals Vital Signs Date Time Temp Pulse Resp B/P Pulse Ox O2 Delivery O2 Flow Rate FiO2 10/01/16 15:00 64 22 122/56 100 Nasal Cannula 2.0 10/01/16 12:00 97.9 09/30/16 13:30 30 Intake and Output 09/30/16 09/30/16 10/01/16 15:00 23:00 07:00 Intake Total 752.22 ml 100 ml 0 ml Output Total 3195 ml 175 ml 35 ml Balance -2442.78 ml -75 ml -35 ml Exam Neck: supple Respiratory: clear to auscultation Cardiovascular: regular rate and rhythm Gastrointestinal: soft Musculoskeletal: nl extremities to inspection Extremities: No edema Results Result Diagram: 10/01/16 0400 10/01/16 0400 Results 24 hrs Laboratory Tests Test 09/30/16 18:03 09/30/16 19:57 10/01/16 00:01 10/01/16 04:00 Bedside Glucose 83 80 Phosphorus Level 2.6 White Blood Count 4.5 L Red Blood Count 3.26 L Hemoglobin 8.8 L Hematocrit 29.4 L Mean Corpuscular Volume 90.2 Mean Corpuscular Hemoglobin 27.0 L Mean Corpuscular Hemoglobin Concent 29.9 L Red Cell Distribution Width 23.0 H Platelet Count 175 Mean Platelet Volume 12.3 H Neutrophils % 67.5 Lymphocytes % 21.8 Monocytes % 6.7 Eosinophils % 2.9 Basophils % 0.9 Nucleated Red Blood Cells % 0.0 Neutrophils # 3.0 Lymphocytes # 1.0 Monocytes # 0.3 Eosinophils # 0.1 Basophils # 0.0 Nucleated Red Blood Cells # 0.0 Prothrombin Time 20.6 #H Prothrombin Time Ratio 1.6 INR International Normalized Ratio 1.75 Activated Partial Thromboplast Time 45.5 H Sodium Level 143 Potassium Level 4.8 Chloride Level 103 # Carbon Dioxide Level 27 Anion Gap 18 H Blood Urea Nitrogen 29 #H Creatinine 1.36 H Glucose Level 71 Calcium Level 9.0 Total Bilirubin 1.2 Direct Bilirubin 0.10 Indirect Bilirubin 1.1 Aspartate Amino Transf (AST/SGOT) 17 Alanine Aminotransferase (ALT/SGPT) 23 Alkaline Phosphatase 82 Total Protein 6.7 Albumin 3.4 Test 10/01/16 05:23 10/01/16 05:54 10/01/16 12:32 Bedside Glucose 76 93 Lab Scanned Report BLOOD TRANSFUSION Medications Medications Current Medications Apixaban (Eliquis) 2.5 mg BID PO Last administered on 09/30/16 09:03; Admin Dose 2.5 MG; Start 09/19/16 at 21:00; Status Future hold Ascorbic Acid (Vitamin C) 500 mg DAILY PO Last administered on 10/01/16 09:49; Admin Dose 500 MG; Start 09/20/16 at 09:00 Aspirin (Aspirin) 81 mg DAILY PO Last administered on 10/01/16 09:48; Admin Dose 81 MG; Start 09/20/16 at 09:00 Carvedilol (Coreg) 1.5625 mg BID PO Last administered on 09/22/16 20:47; Admin Dose 1.5625 MG; Start 09/19/16 at 21:00; Status Future Hold Digoxin (Digoxin) 0.125 mg Q2D@13 PO Last administered on 10/01/16 13:41; Admin Dose 0.125 MG; Start 09/21/16 at 13:00; Status Future hold Pantoprazole (Protonix Iv) 40 mg BID@06,18 IV Last administered on 10/01/16 05: 26; Admin Dose 40 MG; Start 09/20/16 at 06:00 Furosemide 20 mg 20 mg DAILY@06 IV Last administered on 10/01/16 05:28; Admin Dose 20 MG; Start 09/20/16 at 06:00 Norepinephrine 16 mg/Dextrose 500 ml @ 1.87 mls/hr TITRATE IV Last administered on 09/26/16 04:40; Admin Dose 5.62 MLS/HR; Start 09/20/16 at 02:00 Midazolam HCl (Versed) 50 ml @ 1 mls/hr TITRATE IV Last administered on 15:03; Admin Dose 6 MLS/HR; Start 09/20/16 at 02:00 Miscellaneous Information 1 ea NOTE XX ; Start 09/21/16 at 14:00 Glucose (Glutose) 15 gm Q15M PRN PO DECREASED GLUCOSE; Start 09/21/16 at 14:00 Glucose (Glutose) 22.5 gm Q15M PRN PO DECREASED GLUCOSE; Start 09/21/16 at 14: 00 Dextrose (D50w Syringe) 25 ml Q15M PRN IV DECREASED GLUCOSE; Start 09/21/16 at 14:00 Dextrose (D50w Syringe) 50 ml Q15M PRN IV DECREASED GLUCOSE; Start 09/21/16 at 14:00 Glucagon (Glucagen) 1 mg Q15M PRN IM DECREASED GLUCOSE; Start 09/21/16 at 14:00 Glucose (Glutose) 15 gm Q15M PRN BUCCAL DECREASED GLUCOSE; Start 09/21/16 at 14 :00 IV Flush (NS 10 ml) 10 ml PRN PRN IV IV PROTOCOL; Start 09/22/16 at 18:30 Docusate Sodium (Colace Liquid Cup) 200 mg QHS NGT Last administered on 20:31; Admin Dose 200 MG; Start 09/24/16 at 21:00 Potassium Chloride (Potassium Chloride Pwd/Soln) 20 meq BID NGT Last administered on 10/01/16 09:49; Admin Dose 20 MEQ; Start 09/27/16 at 09:00 Lorazepam (Ativan) 1 mg Q4H PRN IV AGITATION/ANXIETY; Start 09/27/16 at 17:30 Morphine Sulfate (morphine) 2 mg Q4H PRN IV PAIN Last administered on 10/01/16 00:05; Admin Dose 2 MG; Start 09/28/16 at 11:30 Povidone Iodine (Povidone-Iodine) 1 applic DAILY TOP Last administered on 09:50; Admin Dose 1 APPLIC; Start 09/29/16 at 09:00 Collagenase (Santyl) 1 applic DAILY TOP Last administered on 10/01/16 09:49; Admin Dose 1 APPLIC; Start 09/28/16 at 19:30 Insulin Aspart (Novolog Insulin Pen) NOVOLOG *MILD* ALGORI... Q6 SC ; Start 09/29 at 06:00 Sodium Phosphate (Kphos Neutral) 250 mg BID PO Last administered on 09/30/16 09 :05; Admin Dose 250 MG; Start 09/29/16 at 21:00; Stop 10/03/16 at 20:59 YANIRA HART MD October 01, 2016 16:34
--- NOTE | 2016-10-01 17:38 | PN ---
Date/Time of Note Date/Time of Note DATE: 10/01/16 TIME: 17:22 Assessment/Plan VTE Prophylaxis VTE Prophylaxis Intervention: other (eliquis) Lines/Catheters IV Catheter Type (from Nrs): PICC Line Central line still needed: Yes Urinary Cath still in place: Yes Reason Cath still needed: other (indicate) Assessment/Plan Assessment/Plan 1. Recurrent VDRF 2/2 #2 : now extubated 2. Endstage CHF with recurrent exacerbation : improved 3. Chronic kidney disease on hemodialysis 3 times a week limited by hypotension 4. S/p shock ?cardiogenic r/o septic now off pressor support 5. Diabetes mellitus type 2 - ISS 6. Paroxysmal atrial fibrillation, rate controlled - monitor, BB, eliquis 7. 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 8. Chronic liver cirrhosis with coagulopathy and mild hyperbilirubinemia and transaminitis likely associated with chronic CHF - monitor 9. Severe debility. 10. 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 11. LE cellulitis and ulcerations ? PVD: improved 12. Chary UTI PLAN: * transfer patient to tele * continue diuresis and HD * f/u ST recs * Continue supportive care. * Family does not want a trach / Patient high readmission risk even if extubated. Recommend home with hospice at discharge. 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 Currently undergoing speech therapy assessment. Seems to be doing well. Cleared for transfer to telemetry per pulmonary. Exam/Review of Systems Vital Signs Vitals Vital Signs Date Time Temp Pulse Resp B/P Pulse Ox O2 Delivery O2 Flow Rate FiO2 10/01/16 16:00 64 10/01/16 15:00 22 122/56 100 Nasal Cannula 2.0 10/01/16 12:00 97.9 09/30/16 13:30 30 Intake and Output 09/30/16 09/30/16 10/01/16 15:00 23:00 07:00 Intake Total 752.22 ml 100 ml 0 ml Output Total 3195 ml 175 ml 35 ml Balance -2442.78 ml -75 ml -35 ml Exam Constitutional: alert, frail, oriented, No distress Head: normocephalic Eyes: PERRL, icteric ENMT: No mucosa pink and moist Neck: jvd Respiratory: crackles/rales (mild), diminished breath sounds Cardiovascular: murmurs/extra sounds, No regular rate and rhythm Gastrointestinal: bowel sounds, non-tender, soft Extremities: No edema Neurological: lethargic Skin: No rash or lesions Results Result Diagram: 10/01/16 0400 10/01/16 0400 Results 24 hrs Laboratory Tests Test 09/30/16 18:03 09/30/16 19:57 10/01/16 00:01 10/01/16 04:00 Bedside Glucose 83 80 Phosphorus Level 2.6 White Blood Count 4.5 L Red Blood Count 3.26 L Hemoglobin 8.8 L Hematocrit 29.4 L Mean Corpuscular Volume 90.2 Mean Corpuscular Hemoglobin 27.0 L Mean Corpuscular Hemoglobin Concent 29.9 L Red Cell Distribution Width 23.0 H Platelet Count 175 Mean Platelet Volume 12.3 H Neutrophils % 67.5 Lymphocytes % 21.8 Monocytes % 6.7 Eosinophils % 2.9 Basophils % 0.9 Nucleated Red Blood Cells % 0.0 Neutrophils # 3.0 Lymphocytes # 1.0 Monocytes # 0.3 Eosinophils # 0.1 Basophils # 0.0 Nucleated Red Blood Cells # 0.0 Prothrombin Time 20.6 #H Prothrombin Time Ratio 1.6 INR International Normalized Ratio 1.75 Activated Partial Thromboplast Time 45.5 H Sodium Level 143 Potassium Level 4.8 Chloride Level 103 # Carbon Dioxide Level 27 Anion Gap 18 H Blood Urea Nitrogen 29 #H Creatinine 1.36 H Glucose Level 71 Calcium Level 9.0 Total Bilirubin 1.2 Direct Bilirubin 0.10 Indirect Bilirubin 1.1 Aspartate Amino Transf (AST/SGOT) 17 Alanine Aminotransferase (ALT/SGPT) 23 Alkaline Phosphatase 82 Total Protein 6.7 Albumin 3.4 Test 10/01/16 05:23 10/01/16 05:54 10/01/16 12:32 Bedside Glucose 76 93 Lab Scanned Report BLOOD TRANSFUSION Medications Medications Current Medications Apixaban (Eliquis) 2.5 mg BID PO Last administered on 09/30/16 09:03; Admin Dose 2.5 MG; Start 09/19/16 at 21:00; Status Future hold Ascorbic Acid (Vitamin C) 500 mg DAILY PO Last administered on 10/01/16 09:49; Admin Dose 500 MG; Start 09/20/16 at 09:00 Aspirin (Aspirin) 81 mg DAILY PO Last administered on 10/01/16 09:48; Admin Dose 81 MG; Start 09/20/16 at 09:00 Carvedilol (Coreg) 1.5625 mg BID PO Last administered on 09/22/16 20:47; Admin Dose 1.5625 MG; Start 09/19/16 at 21:00; Status Future Hold Digoxin (Digoxin) 0.125 mg Q2D@13 PO Last administered on 10/01/16 13:41; Admin Dose 0.125 MG; Start 09/21/16 at 13:00; Status Future hold Pantoprazole (Protonix Iv) 40 mg BID@,18 IV Last administered on 10/01/16 05: 26; Admin Dose 40 MG; Start 09/20/16 at 06:00 Furosemide (Lasix) 20 mg DAILY@06 IV Last administered on 10/01/16 05:28; Admin Dose 20 MG; Start 09/20/16 at 06:00 Miscellaneous Information 1 ea NOTE XX ; Start 09/21/16 at 14:00 Glucose (Glutose) 15 gm Q15M PRN PO DECREASED GLUCOSE; Start 09/21/16 at 14:00 Glucose (Glutose) 22.5 gm Q15M PRN PO DECREASED GLUCOSE; Start 09/21/16 at 14: 00 Dextrose (D50w Syringe) 25 ml Q15M PRN IV DECREASED GLUCOSE; Start 09/21/16 at 14:00 Dextrose (D50w Syringe) 50 ml Q15M PRN IV DECREASED GLUCOSE; Start 09/21/16 at 14:00 Glucagon (Glucagen) 1 mg Q15M PRN IM DECREASED GLUCOSE; Start 09/21/16 at 14:00 Glucose (Glutose) 15 gm Q15M PRN BUCCAL DECREASED GLUCOSE; Start 09/21/16 at 14 :00 IV Flush (NS 10 ml) 10 ml PRN PRN IV IV PROTOCOL; Start 09/22/16 at 18:30 Docusate Sodium (Colace Liquid Cup) 200 mg QHS NGT Last administered on 20:31; Admin Dose 200 MG; Start 09/24/16 at 21:00 Potassium Chloride (Potassium Chloride Pwd/Soln) 20 meq BID NGT Last administered on 10/01/16 09:49; Admin Dose 20 MEQ; Start 09/27/16 at 09:00 Lorazepam (Ativan) 1 mg Q4H PRN IV AGITATION/ANXIETY; Start 09/27/16 at 17:30 Morphine Sulfate (morphine) 2 mg Q4H PRN IV PAIN Last administered on 10/01/16 00:05; Admin Dose 2 MG; Start 09/28/16 at 11:30 Povidone Iodine (Povidone-Iodine) 1 applic DAILY TOP Last administered on 09:50; Admin Dose 1 APPLIC; Start 09/29/16 at 09:00 Collagenase (Santyl) 1 applic DAILY TOP Last administered on 10/01/16 09:49; Admin Dose 1 APPLIC; Start 09/28/16 at 19:30 Insulin Aspart (Novolog Insulin Pen) NOVOLOG *MILD* ALGORI... Q6 SC ; Start 09/29 at 06:00 Sodium Phosphate (Kphos Neutral) 250 mg BID PO Last administered on 09/30/16 09 :05; Admin Dose 250 MG; Start 09/29/16 at 21:00; Stop 10/03/16 at 20:59 BOLA SOLO October 01, 2016 17:33
[2016-10-01] MEDS: APIXABAN 5 MG TABLET PO SCH (20:45)
[2016-10-01] MEDS: DOCUSATE SODIUM 10 MG/ML (10ML CUP) NGT SCH (20:46)
[2016-10-02] VITALS (25 sets, daily range): BP systolic 99–126; BP diastolic 36–63; PULSE 60–99; RESP 18–35
[2016-10-02] MEDS: PANTOPRAZOLE 40 MG INJ IV SCH ×2 (05:51→17:32)
[2016-10-02] MEDS: FUROSEMIDE 20 MG INJ IV SCH (05:51)
[2016-10-02] MEDS: INSULIN ASPART [NOVOLOG] 3 ML PEN SC SCH ×5 (06:00→23:12)
[2016-10-02 06:33] LABS: ADD SCAN DIFF NO
[2016-10-02 06:46] LABS: ABNORMAL IP MESSAGE 1; BASOPHILS % 0.5 % (0.0-2.0); EOSINOPHILS % 0.7 % (0.0-7.0); HEMATOCRIT 29.6 % (42.0-52.0); HEMOGLOBIN 8.7 g/dl (14.0-18.0); LYMPHOCYTES # 1.1 10^3/ul (0.8-2.9); LYMPHOCYTES % 19.5 % (15.0-51.0); MEAN CORPUSCULAR HEMOGLOBIN 26.4 pg (29.0-33.0); MEAN CORPUSCULAR HGB CONC 29.4 g/dl (32.0-37.0); MEAN CORPUSCULAR VOLUME 89.7 fl (82.0-101.0); MEAN PLATELET VOLUME 12.3 fl (7.4-10.4); MONOCYTE # 0.4 10^3/ul (0.3-0.9); MONOCYTES % 7.7 % (0.0-11.0); NEUTROPHIL # 3.9 10^3/ul (1.6-7.5); NEUTROPHILS % 71.2 % (39.0-77.0); NUCLEATED RED BLOOD CELLS% 0.7 /100WBC (0.0-0.0); PLATELET COUNT 243 10^3/UL (140-415); RED CELL DISTRIBUTION WIDTH 23.4 % (11.5-14.5); WHITE BLOOD COUNT 5.5 10^3/ul (4.8-10.8)
[2016-10-02 07:16] LABS: CREATININE 1.99 mg/dl (0.61-1.24)
[2016-10-02 07:17] LABS: CALCIUM 9.4 mg/dl (8.4-10.2)
[2016-10-02 07:25] LABS: INR 2.01; PT RATIO 1.8
[2016-10-02 07:27] LABS: PARTIAL THROMBOPLASTIN TIME 44.5 Sec (25.0-35.0)
--- NOTE | 2016-10-02 07:50 | RADRPT ---
PROCEDURE: XR Chest. CLINICAL INDICATION: Shortness of breath. TECHNIQUE: Single frontal view. COMPARISON: 09/28/2016. FINDINGS: There is a right internal jugular vein tunnel dialysis catheter and a right arm PICC line in satisfa ctory and unchanged position. The endotracheal tube and nasogastric tube have been removed. The he art is enlarged. There is a permanent pacemaker, sternal wires, and mediastinal clips. Pulmonary edema is unchanged. There are small bilateral pleural effusions. There is no pneumothorax. IMPRESSION: 1. Endotracheal tube and nasogastric tube removed. 2. No other change from 09/28/2016. RPTAT: QQ .Eugenio Ruano MD, MD Date Time Electronically viewed and signed by .Eugenio Ruano MD, MD on 10/02/2016 07:50 .R/
[2016-10-02] MEDS: ASPIRIN 81 MG TAB PO SCH (08:14)
[2016-10-02] MEDS: SOD PHOS MONO/DIBAS 250 MG TAB PO SCH ×2 (08:14→20:58)
[2016-10-02] MEDS: ASCORBIC ACID 500 MG TAB PO SCH (08:14)
[2016-10-02] MEDS: APIXABAN 5 MG TABLET PO SCH ×2 (08:14→20:51)
[2016-10-02] MEDS: POTASSIUM CHLORIDE 20 MEQ POWDER FOR ORAL SOLN NGT SCH ×2 (08:14→20:51)
[2016-10-02] MEDS: COLLAGENASE 30 GM TUBE TOP SCH (09:00)
[2016-10-02] MEDS: POVIDONE IODINE 10% 28.4 GM OINT TOP SCH (09:00)
--- NOTE | 2016-10-02 09:11 | CONS ---
Date/Time of Note Date/Time of Note DATE: 10/02/16 TIME: 09:07 Assessment/Plan Assessment/Plan Chief Complaint/Hosp Course 1. Chronic kidney disease requiring hemodialysis 2. systolic heart failure. 3. s/p hypoxic respiratory failure off vent 4. History of acute tubular necrosis. 5. Cardiomyopathy. 6. Anemia. 7. Neutropenia. 8. The patient has hypoalbuminemia. 9. History of sepsis. Problems: Additional Assessment/Plan 1. Transfer to telemetry per primary 2. continue HD 3. Continue oral feeding with supplements Consultation Date/Type/Reason Admit Date/Time Sep 19, 2016 at 14:51 Initial Consult Date 09/19/2016 Type of Consultation: renal Reason for Consultation Dr Lamar Referring Provider: THERESA RIVERA 24 HR Interval Summary Constitutional: no complaints Exam/Review of Systems Vital Signs Vitals Vital Signs Date Time Temp Pulse Resp B/P Pulse Ox O2 Delivery O2 Flow Rate FiO2 10/02/16 08:15 62 10/02/16 07:44 2.0 10/02/16 06:00 31 106/36 97 10/02/16 04:00 98.4 10/01/16 20:00 Nasal Cannula 09/30/16 13:30 30 Intake and Output 10/01/16 10/01/16 10/02/16 15:00 23:00 07:00 Intake Total 250 ml 230 ml 50 ml Output Total 25 ml 30 ml 70 ml Balance 225 ml 200 ml -20 ml Exam Constitutional: alert, oriented Psych: no complaints Head: normocephalic Eyes: nl conjunctiva ENMT: nl external ears & nose Neck: supple Respiratory: diminished breath sounds Cardiovascular: regular rate and rhythm Genitourinary - Male: nl penis Results Result Diagram: 10/02/16 0520 10/02/16 0520 Results 24 hrs Laboratory Tests Test 10/01/16 12:32 10/01/16 17:48 10/02/16 00:09 10/02/16 05:20 Bedside Glucose 93 88 132 White Blood Count 5.5 # Red Blood Count 3.30 L Hemoglobin 8.7 L Hematocrit 29.6 L Mean Corpuscular Volume 89.7 Mean Corpuscular Hemoglobin 26.4 L Mean Corpuscular Hemoglobin Concent 29.4 L Red Cell Distribution Width 23.4 H Platelet Count 243 # Mean Platelet Volume 12.3 H Neutrophils % 71.2 Lymphocytes % 19.5 Monocytes % 7.7 Eosinophils % 0.7 Basophils % 0.5 Nucleated Red Blood Cells % 0.7 H Neutrophils # 3.9 Lymphocytes # 1.1 Monocytes # 0.4 Eosinophils # 0.0 Basophils # 0.0 Nucleated Red Blood Cells # 0.0 Prothrombin Time 23.0 H Prothrombin Time Ratio 1.8 INR International Normalized Ratio 2.01 Activated Partial Thromboplast Time 44.5 H Sodium Level 140 Potassium Level 5.0 Chloride Level 100 Carbon Dioxide Level 26 Anion Gap 19 H Blood Urea Nitrogen 43 #H Creatinine 1.99 H Glucose Level 94 Calcium Level 9.4 Test 10/02/16 05:44 Bedside Glucose 116 Medications Medications Current Medications Apixaban (Eliquis) 2.5 mg BID PO Last administered on 10/01/16 20:45; Admin Dose 2.5 MG; Start 09/19/16 at 21:00; Status Future hold Ascorbic Acid (Vitamin C) 500 mg DAILY PO Last administered on 10/01/16 09:49; Admin Dose 500 MG; Start 09/20/16 at 09:00 Aspirin (Aspirin) 81 mg DAILY PO Last administered on 10/01/16 09:48; Admin Dose 81 MG; Start 09/20/16 at 09:00 Carvedilol (Coreg) 1.5625 mg BID PO Last administered on 09/22/16 20:47; Admin Dose 1.5625 MG; Start 09/19/16 at 21:00; Status Future Hold Digoxin (Digoxin) 0.125 mg Q2D@13 PO Last administered on 10/01/16 13:41; Admin Dose 0.125 MG; Start 09/21/16 at 13:00; Status Future hold Pantoprazole (Protonix Iv) 40 mg BID@06,18 IV Last administered on 10/02/16 05: 51; Admin Dose 40 MG; Start 09/20/16 at 06:00 Furosemide (Lasix) 20 mg DAILY@06 IV Last administered on 10/02/16 05:51; Admin Dose 20 MG; Start 09/20/16 at 06:00 Miscellaneous Information 1 ea NOTE XX ; Start 09/21/16 at 14:00 Glucose (Glutose) 15 gm Q15M PRN PO DECREASED GLUCOSE; Start 09/21/16 at 14:00 Glucose (Glutose) 22.5 gm Q15M PRN PO DECREASED GLUCOSE; Start 09/21/16 at 14: 00 Dextrose (D50w Syringe) 25 ml Q15M PRN IV DECREASED GLUCOSE; Start 09/21/16 at 14:00 Dextrose (D50w Syringe) 50 ml Q15M PRN IV DECREASED GLUCOSE; Start 09/21/16 at 14:00 Glucagon (Glucagen) 1 mg Q15M PRN IM DECREASED GLUCOSE; Start 09/21/16 at 14:00 Glucose (Glutose) 15 gm Q15M PRN BUCCAL DECREASED GLUCOSE; Start 09/21/16 at 14 :00 IV Flush (NS 10 ml) 10 ml PRN PRN IV IV PROTOCOL; Start 09/22/16 at 18:30 Docusate Sodium (Colace Liquid Cup) 200 mg QHS NGT Last administered on 20:31; Admin Dose 200 MG; Start 09/24/16 at 21:00 Potassium Chloride (Potassium Chloride Pwd/Soln) 20 meq BID NGT Last administered on 10/01/16 20:45; Admin Dose 20 MEQ; Start 09/27/16 at 09:00 Lorazepam (Ativan) 1 mg Q4H PRN IV AGITATION/ANXIETY; Start 09/27/16 at 17:30 Morphine Sulfate (morphine) 2 mg Q4H PRN IV PAIN Last administered on 10/01/16 00:05; Admin Dose 2 MG; Start 09/28/16 at 11:30 Povidone Iodine (Povidone-Iodine) 1 applic DAILY TOP Last administered on 09:50; Admin Dose 1 APPLIC; Start 09/29/16 at 09:00 Collagenase (Santyl) 1 applic DAILY TOP Last administered on 10/01/16 09:49; Admin Dose 1 APPLIC; Start 09/28/16 at 19:30 Insulin Aspart (Novolog Insulin Pen) NOVOLOG *MILD* ALGORI... Q6 SC ; Start 09/29 at 06:00 Sodium Phosphate (Kphos Neutral) 250 mg BID PO Last administered on 10/01/16 21 :00; Admin Dose 250 MG; Start 09/29/16 at 21:00; Stop 10/03/16 at 20:59 RAMONA MCCLOUD October 02, 2016 09:11
--- NOTE | 2016-10-02 10:13 | PN ---
DATE: 10/02/2016 Reviewed incidence over the last couple of days. This gentleman is still in the intensive care unit . His code has been changed to DO NOT RESUSCITATE and no reintubation. He still remains critically ill. Family members have decided just on comfort measures if he deteriorates further. Per my past discussion with family members it is very difficult to get them to focus on his current medical car e. The family members have fired physicians during this hospital stay for issues that they have nani cribed. Please refer to prior notes. I will continue to remain available in the event that he has compassionate family that decided to have a compassionate extubation. Dictated By: MARLO WILL MD, LP/SHAHANA Conf#: [id number] DID#: [id number]
--- NOTE | 2016-10-02 10:59 | CONS ---
Date/Time of Note Date/Time of Note DATE: 10/02/16 TIME: 10:58 Consult Date/Type/Reason Admit Date/Time Sep 19, 2016 at 14:51 Type of Consultation: pulmonary ICU Ordering Provider: THERESA RIVERA Subjective Patient awake alert and oriented receiving hemodialysis this morning Family at bedside Remains neurologically intact Remains hemodynamically stable Objective Vital Signs Date Time Temp Pulse Resp B/P Pulse Ox O2 Delivery O2 Flow Rate FiO2 10/02/16 09:15 62 10/02/16 07:44 2.0 10/02/16 06:30 30 10/02/16 06:00 106/36 97 10/02/16 04:00 98.4 10/01/16 20:00 Nasal Cannula 09/30/16 13:30 30 Intake and Output 10/01/16 10/01/16 10/02/16 15:00 23:00 07:00 Intake Total 250 ml 230 ml 50 ml Output Total 25 ml 30 ml 70 ml Balance 225 ml 200 ml -20 ml Exam GENERAL: Elderly. gentleman comfortable at rest VITAL SIGNS: per chart NECK: Supple. No JVD or lymphadenopathy. CARDIAC EXAM: S1, S2. No added sounds or murmurs. CHEST: clear bilaterally, No added sounds, rales or wheezes ABDOMEN: Soft, nontender. No guarding or rebound. EXTREMITIES: No cyanosis, clubbing or edema. NEUROLOGIC: Generalized weakness. No focal deficits. Results/Medications Result Diagram: 10/02/16 0520 10/02/16 0520 Results 24 hrs Laboratory Tests Test 10/01/16 12:32 10/01/16 17:48 10/02/16 00:09 10/02/16 05:20 Bedside Glucose 93 88 132 White Blood Count 5.5 # Red Blood Count 3.30 L Hemoglobin 8.7 L Hematocrit 29.6 L Mean Corpuscular Volume 89.7 Mean Corpuscular Hemoglobin 26.4 L Mean Corpuscular Hemoglobin Concent 29.4 L Red Cell Distribution Width 23.4 H Platelet Count 243 # Mean Platelet Volume 12.3 H Neutrophils % 71.2 Lymphocytes % 19.5 Monocytes % 7.7 Eosinophils % 0.7 Basophils % 0.5 Nucleated Red Blood Cells % 0.7 H Neutrophils # 3.9 Lymphocytes # 1.1 Monocytes # 0.4 Eosinophils # 0.0 Basophils # 0.0 Nucleated Red Blood Cells # 0.0 Prothrombin Time 23.0 H Prothrombin Time Ratio 1.8 INR International Normalized Ratio 2.01 Activated Partial Thromboplast Time 44.5 H Sodium Level 140 Potassium Level 5.0 Chloride Level 100 Carbon Dioxide Level 26 Anion Gap 19 H Blood Urea Nitrogen 43 #H Creatinine 1.99 H Glucose Level 94 Calcium Level 9.4 Test 10/02/16 05:44 Bedside Glucose 116 Medications Current Medications Apixaban (Eliquis) 2.5 mg BID PO Last administered on 10/01/16 20:45; Admin Dose 2.5 MG; Start 09/19/16 at 21:00; Status Future hold Ascorbic Acid (Vitamin C) 500 mg DAILY PO Last administered on 10/01/16 09:49; Admin Dose 500 MG; Start 09/20/16 at 09:00 Aspirin (Aspirin) 81 mg DAILY PO Last administered on 10/01/16 09:48; Admin Dose 81 MG; Start 09/20/16 at 09:00 Carvedilol (Coreg) 1.5625 mg BID PO Last administered on 09/22/16 20:47; Admin Dose 1.5625 MG; Start 09/19/16 at 21:00; Status Future Hold Digoxin (Digoxin) 0.125 mg Q2D@13 PO Last administered on 10/01/16 13:41; Admin Dose 0.125 MG; Start 09/21/16 at 13:00; Status Future hold Pantoprazole (Protonix Iv) 40 mg BID@06,18 IV Last administered on 10/02/16 05: 51; Admin Dose 40 MG; Start 09/20/16 at 06:00 Furosemide (Lasix) 20 mg DAILY@06 IV Last administered on 10/02/16 05:51; Admin Dose 20 MG; Start 09/20/16 at 06:00 Miscellaneous Information 1 ea NOTE XX ; Start 09/21/16 at 14:00 Glucose (Glutose) 15 gm Q15M PRN PO DECREASED GLUCOSE; Start 09/21/16 at 14:00 Glucose (Glutose) 22.5 gm Q15M PRN PO DECREASED GLUCOSE; Start 09/21/16 at 14: 00 Dextrose (D50w Syringe) 25 ml Q15M PRN IV DECREASED GLUCOSE; Start 09/21/16 at 14:00 Dextrose (D50w Syringe) 50 ml Q15M PRN IV DECREASED GLUCOSE; Start 09/21/16 at 14:00 Glucagon (Glucagen) 1 mg Q15M PRN IM DECREASED GLUCOSE; Start 09/21/16 at 14:00 Glucose (Glutose) 15 gm Q15M PRN BUCCAL DECREASED GLUCOSE; Start 09/21/16 at 14 :00 IV Flush (NS 10 ml) 10 ml PRN PRN IV IV PROTOCOL; Start 09/22/16 at 18:30 Docusate Sodium (Colace Liquid Cup) 200 mg QHS NGT Last administered on 20:31; Admin Dose 200 MG; Start 09/24/16 at 21:00 Potassium Chloride (Potassium Chloride Pwd/Soln) 20 meq BID NGT Last administered on 10/01/16 20:45; Admin Dose 20 MEQ; Start 09/27/16 at 09:00 Lorazepam (Ativan) 1 mg Q4H PRN IV AGITATION/ANXIETY; Start 09/27/16 at 17:30 Morphine Sulfate (morphine) 2 mg Q4H PRN IV PAIN Last administered on 10/01/16 00:05; Admin Dose 2 MG; Start 09/28/16 at 11:30 Povidone Iodine (Povidone-Iodine) 1 applic DAILY TOP Last administered on 09:50; Admin Dose 1 APPLIC; Start 09/29/16 at 09:00 Collagenase (Santyl) 1 applic DAILY TOP Last administered on 10/01/16 09:49; Admin Dose 1 APPLIC; Start 09/28/16 at 19:30 Insulin Aspart (Novolog Insulin Pen) NOVOLOG *MILD* ALGORI... Q6 SC ; Start 09/29 at 06:00 Sodium Phosphate (Kphos Neutral) 250 mg BID PO Last administered on 10/01/16 21 :00; Admin Dose 250 MG; Start 09/29/16 at 21:00; Stop 10/03/16 at 20:59 Assessment/Plan Chief Complaint/Hosp Course Assessment 1. Status post hypoxemic respiratory failure 2. Aspiration pneumonia 3. Renal insufficiency 4. Deconditioning Plan 1. Speech therapy recommendations advance diet 2. Physical therapy eval 3. Acute rehab eval 4. Transfer to telemetry 5. Consider stopping antibiotics Disposition Transfer to telemetry Problems: HER[facility] CARDENAS [facility] October 02, 2016 10:59
--- NOTE | 2016-10-02 12:26 | PN ---
Date/Time of Note Date/Time of Note DATE: 10/02/16 TIME: 12:24 Assessment/Plan VTE Prophylaxis VTE Prophylaxis Intervention: other (eliquis) Lines/Catheters IV Catheter Type (from Nrs): PICC Line Central line still needed: Yes Urinary Cath still in place: Yes Reason Cath still needed: other (indicate) Assessment/Plan Assessment/Plan 1. Recurrent VDRF 2/2 #2 : now extubated 2. Endstage CHF with recurrent exacerbation : improved 3. Chronic kidney disease on hemodialysis 3 times a week limited by hypotension 4. S/p shock ?cardiogenic r/o septic now off pressor support 5. Diabetes mellitus type 2 - ISS 6. Paroxysmal atrial fibrillation, rate controlled - monitor, BB, eliquis 7. 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 8. Chronic liver cirrhosis with coagulopathy and mild hyperbilirubinemia and transaminitis likely associated with chronic CHF - monitor 9. Severe debility. 10. 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 11. LE cellulitis and ulcerations ? PVD: improved 12. Chary UTI PLAN: * transfer patient to tele / keep cohen for now, very debilitated * continue diuresis and HD * add dietary supplement * Continue supportive care. * Family does not want a trach / Patient high readmission risk even if extubated. Recommend home with hospice at discharge. Prognosis : In the [facility] very poor and guarded Subjective 24 Hr Interval Summary Free Text/Dictation patient seen looks lethargic, denies pain, ongoing dialysis tolerating puree diet Exam/Review of Systems Vital Signs Vitals Vital Signs Date Time Temp Pulse Resp B/P Pulse Ox O2 Delivery O2 Flow Rate FiO2 10/02/16 11:00 62 25 113/45 95 10/02/16 08:00 98.4 10/02/16 07:44 2.0 10/01/16 20:00 Nasal Cannula 09/30/16 13:30 30 Intake and Output 10/01/16 10/01/16 10/02/16 15:00 23:00 07:00 Intake Total 250 ml 230 ml 50 ml Output Total 25 ml 30 ml 70 ml Balance 225 ml 200 ml -20 ml Exam Constitutional: alert, frail, oriented, No distress Head: normocephalic Eyes: PERRL, icteric ENMT: No mucosa pink and moist Neck: jvd Respiratory: crackles/rales (mild), diminished breath sounds Cardiovascular: murmurs/extra sounds, No regular rate and rhythm Gastrointestinal: bowel sounds, non-tender, soft Extremities: No edema Neurological: lethargic Skin: No rash or lesions Results Result Diagram: 10/02/16 0520 10/02/16 0520 Results 24 hrs Laboratory Tests Test 10/01/16 12:32 10/01/16 17:48 10/02/16 00:09 10/02/16 05:20 Bedside Glucose 93 88 132 White Blood Count 5.5 # Red Blood Count 3.30 L Hemoglobin 8.7 L Hematocrit 29.6 L Mean Corpuscular Volume 89.7 Mean Corpuscular Hemoglobin 26.4 L Mean Corpuscular Hemoglobin Concent 29.4 L Red Cell Distribution Width 23.4 H Platelet Count 243 # Mean Platelet Volume 12.3 H Neutrophils % 71.2 Lymphocytes % 19.5 Monocytes % 7.7 Eosinophils % 0.7 Basophils % 0.5 Nucleated Red Blood Cells % 0.7 H Neutrophils # 3.9 Lymphocytes # 1.1 Monocytes # 0.4 Eosinophils # 0.0 Basophils # 0.0 Nucleated Red Blood Cells # 0.0 Prothrombin Time 23.0 H Prothrombin Time Ratio 1.8 INR International Normalized Ratio 2.01 Activated Partial Thromboplast Time 44.5 H Sodium Level 140 Potassium Level 5.0 Chloride Level 100 Carbon Dioxide Level 26 Anion Gap 19 H Blood Urea Nitrogen 43 #H Creatinine 1.99 H Glucose Level 94 Calcium Level 9.4 Test 10/02/16 05:44 10/02/16 12:10 Bedside Glucose 116 132 Medications Medications Current Medications Apixaban (Eliquis) 2.5 mg BID PO Last administered on 10/01/16 20:45; Admin Dose 2.5 MG; Start 09/19/16 at 21:00; Status Future hold Ascorbic Acid (Vitamin C) 500 mg DAILY PO Last administered on 10/01/16 09:49; Admin Dose 500 MG; Start 09/20/16 at 09:00 Aspirin (Aspirin) 81 mg DAILY PO Last administered on 10/01/16 09:48; Admin Dose 81 MG; Start 09/20/16 at 09:00 Carvedilol (Coreg) 1.5625 mg BID PO Last administered on 09/22/16 20:47; Admin Dose 1.5625 MG; Start 09/19/16 at 21:00; Status Future Hold Digoxin (Digoxin) 0.125 mg Q2D@13 PO Last administered on 10/01/16 13:41; Admin Dose 0.125 MG; Start 09/21/16 at 13:00; Status Future hold Pantoprazole (Protonix Iv) 40 mg BID@06,18 IV Last administered on 10/02/16 05: 51; Admin Dose 40 MG; Start 09/20/16 at 06:00 Furosemide (Lasix) 20 mg DAILY@06 IV Last administered on 10/02/16 05:51; Admin Dose 20 MG; Start 09/20/16 at 06:00 Miscellaneous Information 1 ea NOTE XX ; Start 09/21/16 at 14:00 Glucose (Glutose) 15 gm Q15M PRN PO DECREASED GLUCOSE; Start 09/21/16 at 14:00 Glucose (Glutose) 22.5 gm Q15M PRN PO DECREASED GLUCOSE; Start 09/21/16 at 14: 00 Dextrose (D50w Syringe) 25 ml Q15M PRN IV DECREASED GLUCOSE; Start 09/21/16 at 14:00 Dextrose (D50w Syringe) 50 ml Q15M PRN IV DECREASED GLUCOSE; Start 09/21/16 at 14:00 Glucagon (Glucagen) 1 mg Q15M PRN IM DECREASED GLUCOSE; Start 09/21/16 at 14:00 Glucose (Glutose) 15 gm Q15M PRN BUCCAL DECREASED GLUCOSE; Start 09/21/16 at 14 :00 IV Flush (NS 10 ml) 10 ml PRN PRN IV IV PROTOCOL; Start 09/22/16 at 18:30 Docusate Sodium (Colace Liquid Cup) 200 mg QHS NGT Last administered on 20:31; Admin Dose 200 MG; Start 09/24/16 at 21:00 Potassium Chloride (Potassium Chloride Pwd/Soln) 20 meq BID NGT Last administered on 10/01/16 20:45; Admin Dose 20 MEQ; Start 09/27/16 at 09:00 Lorazepam (Ativan) 1 mg Q4H PRN IV AGITATION/ANXIETY; Start 09/27/16 at 17:30 Morphine Sulfate (morphine) 2 mg Q4H PRN IV PAIN Last administered on 10/01/16 00:05; Admin Dose 2 MG; Start 09/28/16 at 11:30 Povidone Iodine (Povidone-Iodine) 1 applic DAILY TOP Last administered on 09:00; Admin Dose 1 APPLIC; Start 09/29/16 at 09:00 Collagenase (Santyl) 1 applic DAILY TOP Last administered on 10/02/16 09:00; Admin Dose 1 APPLIC; Start 09/28/16 at 19:30 Insulin Aspart (Novolog Insulin Pen) NOVOLOG *MILD* ALGORI... Q6 SC ; Start 09/29 at 06:00 Sodium Phosphate (Kphos Neutral) 250 mg BID PO Last administered on 10/01/16 21 :00; Admin Dose 250 MG; Start 09/29/16 at 21:00; Stop 10/03/16 at 20:59 BOLA SOLO October 02, 2016 12:26
--- NOTE | 2016-10-02 13:11 | PN ---
DATE: 10/02/2016 SUBJECTIVE: No events overnight. No fevers. The patient is alert, looks comfortable. Son at beds pete. LABORATORY DATA: WBC 5.5, no shift, no bands. INDWELLINGS: Right chest PermCath, Gan catheter, permanent pacemaker and right upper extremity PI CC line.. DIAGNOSTICS: Chest x-ray this morning revealed unchanged pulmonary edema with small bilateral pleur al effusions. PHYSICAL EXAMINATION: GENERAL: This is a fragile well-developed elderly man who is alert, in no distress. HEENT: Head atraumatic, normocephalic. Sclerae anicteric. Buccal mucosa dry. NECK: Supple, trachea midline. CHEST: Rise symmetrical. Breath sounds diminished to bases. HEART: S1, S2. ABDOMEN: Soft, bowel sounds present. EXTREMITIES: With trace lower extremity edema and multiple scabs. ASSESSMENT: 1. Status post acute respiratory failure secondary to fluid overload and possible aspiration event. 2. End-stage renal disease, hemodialysis dependent. 3. Status post urinary tract infection and pneumonia. 4. 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 5. Diabetes with diabetic foot ulcerations. PLAN: The patient remains stable off antibiotics. Continue present care, anti-aspiration measures. Pending transfer to telemetry. Dictated By: ADA MICHELLE ASSEMBLER [employer]OVEMENT for [employer]UNG HUBBARD/SHAHANA Conf#: [id number] DID#: [id number]
--- NOTE | 2016-10-02 14:37 | CONS ---
Date/Time of Note Date/Time of Note DATE: 10/02/16 TIME: 14:36 Assessment/Plan Assessment/Plan Chief Complaint/Hosp Course IMPRESSION: 1. Hypotension/shock state, question cardiogenic versus septic unlikely as patient had a low EF with negative cardiac enzymes-Now off Levo with reasonable BP 2. Congestive heart failure, systolic, acute on chronic. 3. Coronary artery disease, status post coronary artery bypass graft surgery. 4. Chronic kidney disease on hemodialysis. 5. Coagulopathy secondary to Eliquis. 6. History of paroxysmal atrial fibrillation. 7. Sepsis-improving off pressors 8. Elevated digoxin level. 9. Anemia Recc: -Tele -Contnue asa -Resume eliquis -HD for volume removal as tolerated only -Continue abx's and f/u cx data -Follow BP closely and if BP remains stable will resume baseline low dose coreg/ hydralazine Problems: Consultation Date/Type/Reason Admit Date/Time Sep 19, 2016 at 14:51 Initial Consult Date 09/23/2016 Type of Consultation: Cardiology Reason for Consultation Cardiomyopathy/CHF Referring Provider: THERESA RIVERA Exam/Review of Systems Vital Signs Vitals Vital Signs Date Time Temp Pulse Resp B/P Pulse Ox O2 Delivery O2 Flow Rate FiO2 10/02/16 12:56 63 10/02/16 12:30 98.2 18 116/58 100 10/02/16 12:00 Nasal Cannula 2.0 09/30/16 13:30 30 Intake and Output 10/01/16 10/01/16 10/02/16 15:00 23:00 07:00 Intake Total 250 ml 230 ml 50 ml Output Total 25 ml 30 ml 70 ml Balance 225 ml 200 ml -20 ml Exam Review of Systems: CONSTITUTIONAL: No fevers, chills. PULMONARY: No sob CARDIOVASCULAR: No chest pain/palpitations GASTROINTESTINAL: No nausea/vomiting. GENITOURINARY: No hematuria/dysuria. MUSCULOSKELETAL: No myagias/arthalgias. PSYCHIATRIC: The patient denies depression. NEUROLOGIC: No weakness Constitutional: alert Psych: no complaints Head: normocephalic ENMT: mucosa pink and moist Neck: jvd, supple Respiratory: diminished breath sounds Cardiovascular: regular rate and rhythm Gastrointestinal: non-tender, soft Musculoskeletal: muscle weakness (generalized) Extremities: edema (none) Neurological: other (No focal deficits) Results Result Diagram: 5/5/17 0520 10/02/16 0520 Results 24 hrs Laboratory Tests Test 10/01/16 17:48 10/02/16 00:09 10/02/16 05:20 10/02/16 05:44 Bedside Glucose 88 132 116 White Blood Count 5.5 # Red Blood Count 3.30 L Hemoglobin 8.7 L Hematocrit 29.6 L Mean Corpuscular Volume 89.7 Mean Corpuscular Hemoglobin 26.4 L Mean Corpuscular Hemoglobin Concent 29.4 L Red Cell Distribution Width 23.4 H Platelet Count 243 # Mean Platelet Volume 12.3 H Neutrophils % 71.2 Lymphocytes % 19.5 Monocytes % 7.7 Eosinophils % 0.7 Basophils % 0.5 Nucleated Red Blood Cells % 0.7 H Neutrophils # 3.9 Lymphocytes # 1.1 Monocytes # 0.4 Eosinophils # 0.0 Basophils # 0.0 Nucleated Red Blood Cells # 0.0 Prothrombin Time 23.0 H Prothrombin Time Ratio 1.8 INR International Normalized Ratio 2.01 Activated Partial Thromboplast Time 44.5 H Sodium Level 140 Potassium Level 5.0 Chloride Level 100 Carbon Dioxide Level 26 Anion Gap 19 H Blood Urea Nitrogen 43 #H Creatinine 1.99 H Glucose Level 94 Calcium Level 9.4 Test 10/02/16 12:10 Bedside Glucose 132 Medications Medications Current Medications Apixaban (Eliquis) 2.5 mg BID PO Last administered on 10/01/16 20:45; Admin Dose 2.5 MG; Start 09/19/16 at 21:00; Status Future hold Ascorbic Acid (Vitamin C) 500 mg DAILY PO Last administered on 10/01/16 09:49; Admin Dose 500 MG; Start 09/20/16 at 09:00 Aspirin (Aspirin) 81 mg DAILY PO Last administered on 10/01/16 09:48; Admin Dose 81 MG; Start 09/20/16 at 09:00 Carvedilol (Coreg) 1.5625 mg BID PO Last administered on 09/22/16 20:47; Admin Dose 1.5625 MG; Start 09/19/16 at 21:00; Status Future Hold Digoxin (Digoxin) 0.125 mg Q2D@13 PO Last administered on 10/01/16 13:41; Admin Dose 0.125 MG; Start 09/21/16 at 13:00; Status Future hold Pantoprazole (Protonix Iv) 40 mg BID@06,18 IV Last administered on 10/02/16 05: 51; Admin Dose 40 MG; Start 09/20/16 at 06:00 Furosemide (Lasix) 20 mg DAILY@06 IV Last administered on 10/02/16 05:51; Admin Dose 20 MG; Start 09/20/16 at 06:00 Miscellaneous Information 1 ea NOTE XX ; Start 09/21/16 at 14:00 Glucose (Glutose) 15 gm Q15M PRN PO DECREASED GLUCOSE; Start 09/21/16 at 14:00 Glucose (Glutose) 22.5 gm Q15M PRN PO DECREASED GLUCOSE; Start 09/21/16 at 14: 00 Dextrose (D50w Syringe) 25 ml Q15M PRN IV DECREASED GLUCOSE; Start 09/21/16 at 14:00 Dextrose (D50w Syringe) 50 ml Q15M PRN IV DECREASED GLUCOSE; Start 09/21/16 at 14:00 Glucagon (Glucagen) 1 mg Q15M PRN IM DECREASED GLUCOSE; Start 09/21/16 at 14:00 Glucose (Glutose) 15 gm Q15M PRN BUCCAL DECREASED GLUCOSE; Start 09/21/16 at 14 :00 IV Flush (NS 10 ml) 10 ml PRN PRN IV IV PROTOCOL; Start 09/22/16 at 18:30 Docusate Sodium (Colace Liquid Cup) 200 mg QHS NGT Last administered on 20:31; Admin Dose 200 MG; Start 09/24/16 at 21:00 Potassium Chloride (Potassium Chloride Pwd/Soln) 20 meq BID NGT Last administered on 10/01/16 20:45; Admin Dose 20 MEQ; Start 09/27/16 at 09:00 Lorazepam (Ativan) 1 mg Q4H PRN IV AGITATION/ANXIETY; Start 09/27/16 at 17:30 Morphine Sulfate (morphine) 2 mg Q4H PRN IV PAIN Last administered on 10/01/16 00:05; Admin Dose 2 MG; Start 09/28/16 at 11:30 Povidone Iodine (Povidone-Iodine) 1 applic DAILY TOP Last administered on 09:00; Admin Dose 1 APPLIC; Start 09/29/16 at 09:00 Collagenase (Santyl) 1 applic DAILY TOP Last administered on 10/02/16 09:00; Admin Dose 1 APPLIC; Start 09/28/16 at 19:30 Insulin Aspart (Novolog Insulin Pen) NOVOLOG *MILD* ALGORI... Q6 SC ; Start 09/29 at 06:00 Sodium Phosphate (Kphos Neutral) 250 mg BID PO Last administered on 10/01/16 21 :00; Admin Dose 250 MG; Start 09/29/16 at 21:00; Stop 10/03/16 at 20:59 POLI SAN October 02, 2016 14:37
[2016-10-02] MEDS: DOCUSATE SODIUM 10 MG/ML (10ML CUP) NGT SCH (20:58)
[2016-10-02] MEDS ORDERED: GLUCOSE GEL 15 GRAM TUBE BUCCAL PRN (23:30)
[2016-10-02] MEDS ORDERED: GLUCOSE GEL 15 GRAM TUBE PO PRN ×2 (23:30)
[2016-10-02] MEDS ORDERED: DEXTROSE 50% 50 ML SYRINGE IV PRN ×2 (23:30)
[2016-10-02] MEDS ORDERED: GLUCAGON 1 MG INJ IM PRN (23:30)
[2016-10-03] VITALS (12 sets, daily range): BP systolic 104–158; BP diastolic 42–72; PULSE 60–68; RESP 16–20
[2016-10-03] MEDS: ACCU-CHEK XX SCH (02:00)
[2016-10-03] MEDS: FUROSEMIDE 20 MG INJ IV SCH (05:11)
[2016-10-03] MEDS: PANTOPRAZOLE 40 MG INJ IV SCH ×2 (05:11→18:49)
[2016-10-03] MEDS: DOCUSATE SODIUM 10 MG/ML (10ML CUP) NGT SCH ×2 (05:18→20:36)
[2016-10-03] MEDS: INSULIN ASPART [NOVOLOG] 3 ML PEN SC SCH ×4 (07:55→20:26)
[2016-10-03] MEDS: ASPIRIN 81 MG TAB PO SCH (08:30)
[2016-10-03] MEDS: POTASSIUM CHLORIDE 20 MEQ POWDER FOR ORAL SOLN NGT SCH ×2 (08:30→20:33)
[2016-10-03] MEDS: SOD PHOS MONO/DIBAS 250 MG TAB PO SCH (08:31)
[2016-10-03] MEDS: ASCORBIC ACID 500 MG TAB PO SCH (08:31)
[2016-10-03] MEDS: APIXABAN 5 MG TABLET PO SCH ×2 (08:31→20:33)
--- NOTE | 2016-10-03 08:40 | PN ---
Date/Time of Note Date/Time of Note DATE: 10/03/16 TIME: 08:38 Assessment/Plan VTE Prophylaxis VTE Prophylaxis Intervention: other (eliquis) Lines/Catheters IV Catheter Type (from Nrs): PICC Line Central line still needed: Yes Urinary Cath still in place: Yes Reason Cath still needed: other (indicate) (d/c cohen) Assessment/Plan Assessment/Plan 1. Recurrent VDRF 2/2 #2 : now extubated 2. Endstage CHF with recurrent exacerbation : improved 3. Chronic kidney disease on hemodialysis 3 times a week limited by hypotension 4. S/p shock ?cardiogenic r/o septic now off pressor support 5. Diabetes mellitus type 2 - ISS 6. Paroxysmal atrial fibrillation, rate controlled - monitor, BB, eliquis 7. 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 8. Chronic liver cirrhosis with coagulopathy and mild hyperbilirubinemia and transaminitis likely associated with chronic CHF - monitor 9. Severe debility. 10. 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 11. LE cellulitis and ulcerations ? PVD: resolved 12. Chary UTI PLAN: * Get PT to mobilize patient, d/c cohen if possible. * continue diuresis and HD * Now off abx * Continue supportive care. * Family does not want a trach / Patient high readmission risk even if extubated. Recommend home with hospice at discharge. Prognosis : In the senior care : guarded Subjective 24 Hr Interval Summary Free Text/Dictation Patient seen no new issues no acute distress. Spoke with speech therapy, we will do video swallow to see if we can advance diet Exam/Review of Systems Vital Signs Vitals Vital Signs Date Time Temp Pulse Resp B/P Pulse Ox O2 Delivery O2 Flow Rate FiO2 10/03/16 08:24 63 10/03/16 07:52 98.0 17 121/58 100 10/02/16 19:00 Nasal Cannula 2.0 09/30/16 13:30 30 Intake and Output 10/02/16 10/02/16 10/03/16 14:59 22:59 06:59 Intake Total 420 ml 700 ml 400 ml Output Total 2050 ml 50 ml 100 ml Balance -1630 ml 650 ml 300 ml Exam Constitutional: alert, frail, oriented, No distress Head: normocephalic Eyes: PERRL, icteric ENMT: No mucosa pink and moist Neck: jvd Respiratory: crackles/rales , diminished breath sounds Cardiovascular: murmurs/extra sounds, No regular rate and rhythm Gastrointestinal: bowel sounds, non-tender, soft Extremities: No edema Neurological: lethargic Skin: No rash or lesions Results Result Diagram: 10/02/16 0520 10/02/16 0520 Results 24 hrs Laboratory Tests Test 10/02/16 12:10 10/02/16 17:31 10/02/16 23:11 10/03/16 07:53 Bedside Glucose 132 98 125 112 Medications Medications Current Medications Apixaban (Eliquis) 2.5 mg BID PO Last administered on 10/03/16 08:31; Admin Dose 2.5 MG; Start 09/19/16 at 21:00; Status Future hold Ascorbic Acid (Vitamin C) 500 mg DAILY PO Last administered on 10/03/16 08:31; Admin Dose 500 MG; Start 09/20/16 at 09:00 Aspirin (Aspirin) 81 mg DAILY PO Last administered on 10/03/16 08:30; Admin Dose 81 MG; Start 09/20/16 at 09:00 Carvedilol (Coreg) 1.5625 mg BID PO Last administered on 09/22/16 20:47; Admin Dose 1.5625 MG; Start 09/19/16 at 21:00; Status Future Hold Digoxin (Digoxin) 0.125 mg Q2D@13 PO Last administered on 10/01/16 13:41; Admin Dose 0.125 MG; Start 09/21/16 at 13:00; Status Future hold Pantoprazole (Protonix Iv) 40 mg BID@06,18 IV Last administered on 10/03/16 05: 11; Admin Dose 40 MG; Start 09/20/16 at 06:00 Furosemide (Lasix) 20 mg DAILY@06 IV Last administered on 10/03/16 05:11; Admin Dose 20 MG; Start 09/20/16 at 06:00 Miscellaneous Information 1 ea NOTE XX ; Start 09/21/16 at 14:00 Dextrose (D50w Syringe) 25 ml Q15M PRN IV DECREASED GLUCOSE; Start 09/21/16 at 14:00 IV Flush (NS 10 ml) 10 ml PRN PRN IV IV PROTOCOL; Start 09/22/16 at 18:30 Docusate Sodium (Colace Liquid Cup) 200 mg QHS NGT Last administered on 05:18; Admin Dose 200 MG; Start 09/24/16 at 21:00 Potassium Chloride (Potassium Chloride Pwd/Soln) 20 meq BID NGT Last administered on 10/03/16 08:30; Admin Dose 20 MEQ; Start 09/27/16 at 09:00 Lorazepam (Ativan) 1 mg Q4H PRN IV AGITATION/ANXIETY; Start 09/27/16 at 17:30 Morphine Sulfate (morphine) 2 mg Q4H PRN IV PAIN Last administered on 10/01/16 00:05; Admin Dose 2 MG; Start 09/28/16 at 11:30 Povidone Iodine (Povidone-Iodine) 1 applic DAILY TOP Last administered on 09:00; Admin Dose 1 APPLIC; Start 09/29/16 at 09:00 Collagenase (Santyl) 1 applic DAILY TOP Last administered on 10/02/16 09:00; Admin Dose 1 APPLIC; Start 09/28/16 at 19:30 Sodium Phosphate (Kphos Neutral) 250 mg BID PO Last administered on 10/03/16 08 :31; Admin Dose 250 MG; Start 09/29/16 at 21:00; Stop 10/03/16 at 20:59 Hydralazine HCl (Apresoline) 10 mg Q8 PO ; Start 10/02/16 at 22:00 Diagnostic Test (Pha) (Accu-Chek) 1 ea 02 XX ; Start 10/03/16 at 02:00 Miscellaneous Information 1 ea NOTE XX ; Start 10/02/16 at 23:30 Glucose (Glutose) 15 gm Q15M PRN PO DECREASED GLUCOSE; Start 10/02/16 at 23:30 Glucose (Glutose) 22.5 gm Q15M PRN PO DECREASED GLUCOSE; Start 10/02/16 at 23:30 Dextrose (D50w Syringe) 25 ml Q15M PRN IV DECREASED GLUCOSE; Start 10/02/16 at 23:30 Dextrose (D50w Syringe) 50 ml Q15M PRN IV DECREASED GLUCOSE; Start 10/02/16 at 23:30 Glucagon (Glucagen) 1 mg Q15M PRN IM DECREASED GLUCOSE; Start 10/02/16 at 23:30 Glucose (Glutose) 15 gm Q15M PRN BUCCAL DECREASED GLUCOSE; Start 10/02/16 at 23: 30 Miscellaneous Information (* Miscellaneous Pharmacy Order) HYPOGLYCEMIA PROTOCOL w... ONCE ONCE XX ; Start 10/03/16 at 09:00; Stop 10/03/16 at 09:01; Status BOLA GODWIN October 03, 2016 08:40
[2016-10-03] MEDS: COLLAGENASE 30 GM TUBE TOP SCH (09:00)
[2016-10-03 10:30] LABS: ADD SCAN DIFF NO
[2016-10-03] MEDS: POVIDONE IODINE 10% 28.4 GM OINT TOP SCH (10:34)
[2016-10-03 10:45] LABS: ABNORMAL IP MESSAGE 1; BASOPHILS % 0.2 % (0.0-2.0); EOSINOPHILS # 0.1 10^3/ul (0.0-0.5); EOSINOPHILS % 1.5 % (0.0-7.0); HEMATOCRIT 28.6 % (42.0-52.0); HEMOGLOBIN 8.3 g/dl (14.0-18.0); LYMPHOCYTES # 0.8 10^3/ul (0.8-2.9); LYMPHOCYTES % 17.2 % (15.0-51.0); MEAN CORPUSCULAR HEMOGLOBIN 26.1 pg (29.0-33.0); MEAN CORPUSCULAR VOLUME 89.9 fl (82.0-101.0); MONOCYTE # 0.4 10^3/ul (0.3-0.9); NEUTROPHIL # 3.4 10^3/ul (1.6-7.5); NEUTROPHILS % 72.7 % (39.0-77.0); NUCLEATED RED BLOOD CELLS% 0.9 /100WBC (0.0-0.0); PLATELET COUNT 252 10^3/UL (140-415); RED BLOOD COUNT 3.18 10^6/ul (4.70-6.10); RED CELL DISTRIBUTION WIDTH 22.8 % (11.5-14.5); WHITE BLOOD COUNT 4.7 10^3/ul (4.8-10.8)
[2016-10-03 10:58] LABS: CALCIUM 8.8 mg/dl (8.4-10.2); CREATININE 1.68 mg/dl (0.61-1.24); POTASSIUM 4.3 mmol/L (3.5-5.1)
--- NOTE | 2016-10-03 11:02 | CONS ---
Date/Time of Note Date/Time of Note DATE: 10/03/16 TIME: 11:01 Consult Date/Type/Reason Admit Date/Time Sep 19, 2016 at 14:51 Type of Consultation: pulmonary Ordering Provider: THERESA RIVERA Subjective Patient remains awake alert oriented comfortable at rest no acute distress Objective Vital Signs Date Time Temp Pulse Resp B/P Pulse Ox O2 Delivery O2 Flow Rate FiO2 10/03/16 08:24 63 10/03/16 07:52 98.0 17 121/58 100 10/02/16 19:00 Nasal Cannula 2.0 09/30/16 13:30 30 Intake and Output 10/02/16 10/02/16 10/03/16 14:59 22:59 06:59 Intake Total 420 ml 700 ml 400 ml Output Total 2050 ml 50 ml 100 ml Balance -1630 ml 650 ml 300 ml Exam GENERAL: Elderly gentleman comfortable at rest VITAL SIGNS: per chart NECK: Supple. No JVD or lymphadenopathy. CARDIAC EXAM: S1, S2. No added sounds or murmurs. CHEST: clear bilaterally, No added sounds, rales or wheezes ABDOMEN: Soft, nontender. No guarding or rebound. EXTREMITIES: No cyanosis, clubbing or edema. NEUROLOGIC: Generalized weakness. No focal deficits. Results/Medications Result Diagram: 10/03/16 1020 10/02/16 0520 Results 24 hrs Laboratory Tests Test 10/02/16 12:10 10/02/16 17:31 10/02/16 23:11 10/03/16 07:53 Bedside Glucose 132 98 125 112 Test 10/03/16 10:20 White Blood Count 4.7 L Red Blood Count 3.18 L Hemoglobin 8.3 L Hematocrit 28.6 L Mean Corpuscular Volume 89.9 Mean Corpuscular Hemoglobin 26.1 L Mean Corpuscular Hemoglobin Concent 29.0 L Red Cell Distribution Width 22.8 H Platelet Count 252 Mean Platelet Volume 11.0 H Neutrophils % 72.7 Lymphocytes % 17.2 Monocytes % 8.0 Eosinophils % 1.5 Basophils % 0.2 Nucleated Red Blood Cells % 0.9 H Neutrophils # 3.4 Lymphocytes # 0.8 Monocytes # 0.4 Eosinophils # 0.1 Basophils # 0.0 Nucleated Red Blood Cells # 0.0 Medications Current Medications Apixaban (Eliquis) 2.5 mg BID PO Last administered on 10/03/16 08:31; Admin Dose 2.5 MG; Start 09/19/16 at 21:00; Status Future hold Ascorbic Acid (Vitamin C) 500 mg DAILY PO Last administered on 10/03/16 08:31; Admin Dose 500 MG; Start 09/20/16 at 09:00 Aspirin (Aspirin) 81 mg DAILY PO Last administered on 10/03/16 08:30; Admin Dose 81 MG; Start 09/20/16 at 09:00 Carvedilol (Coreg) 1.5625 mg BID PO Last administered on 09/22/16 20:47; Admin Dose 1.5625 MG; Start 09/19/16 at 21:00; Status Future Hold Digoxin (Digoxin) 0.125 mg Q2D@13 PO Last administered on 10/01/16 13:41; Admin Dose 0.125 MG; Start 09/21/16 at 13:00; Status Future hold Pantoprazole (Protonix Iv) 40 mg BID@06,18 IV Last administered on 10/03/16 05: 11; Admin Dose 40 MG; Start 09/20/16 at 06:00 Furosemide (Lasix) 20 mg DAILY@06 IV Last administered on 10/03/16 05:11; Admin Dose 20 MG; Start 09/20/16 at 06:00 Miscellaneous Information 1 ea NOTE XX ; Start 09/21/16 at 14:00 Dextrose (D50w Syringe) 25 ml Q15M PRN IV DECREASED GLUCOSE; Start 09/21/16 at 14:00 IV Flush (NS 10 ml) 10 ml PRN PRN IV IV PROTOCOL; Start 09/22/16 at 18:30 Docusate Sodium (Colace Liquid Cup) 200 mg QHS NGT Last administered on 05:18; Admin Dose 200 MG; Start 09/24/16 at 21:00 Potassium Chloride (Potassium Chloride Pwd/Soln) 20 meq BID NGT Last administered on 10/03/16 08:30; Admin Dose 20 MEQ; Start 09/27/16 at 09:00 Lorazepam (Ativan) 1 mg Q4H PRN IV AGITATION/ANXIETY; Start 09/27/16 at 17:30 Morphine Sulfate (morphine) 2 mg Q4H PRN IV PAIN Last administered on 10/01/16 00:05; Admin Dose 2 MG; Start 09/28/16 at 11:30 Povidone Iodine (Povidone-Iodine) 1 applic DAILY TOP Last administered on 10:34; Admin Dose 1 APPLIC; Start 09/29/16 at 09:00 Collagenase (Santyl) 1 applic DAILY TOP Last administered on 10/03/16 09:00; Admin Dose 1 APPLIC; Start 09/28/16 at 19:30 Sodium Phosphate (Kphos Neutral) 250 mg BID PO Last administered on 10/03/16 08 :31; Admin Dose 250 MG; Start 09/29/16 at 21:00; Stop 10/03/16 at 20:59 Hydralazine HCl (Apresoline) 10 mg Q8 PO ; Start 10/02/16 at 22:00 Diagnostic Test (Pha) (Accu-Chek) 1 ea 02 XX ; Start 10/03/16 at 02:00 Miscellaneous Information 1 ea NOTE XX ; Start 10/02/16 at 23:30 Glucose (Glutose) 15 gm Q15M PRN PO DECREASED GLUCOSE; Start 10/02/16 at 23:30 Glucose (Glutose) 22.5 gm Q15M PRN PO DECREASED GLUCOSE; Start 10/02/16 at 23:30 Dextrose (D50w Syringe) 25 ml Q15M PRN IV DECREASED GLUCOSE; Start 10/02/16 at 23:30 Dextrose (D50w Syringe) 50 ml Q15M PRN IV DECREASED GLUCOSE; Start 10/02/16 at 23:30 Glucagon (Glucagen) 1 mg Q15M PRN IM DECREASED GLUCOSE; Start 10/02/16 at 23:30 Glucose (Glutose) 15 gm Q15M PRN BUCCAL DECREASED GLUCOSE; Start 10/02/16 at 23: 30 Assessment/Plan Chief Complaint/Hosp Course Assessment 1. Status post hypoxemic respiratory failure 2. Aspiration pneumonia 3. Renal insufficiency 4. Deconditioning Plan 1. Aspiration precautions modified diet 2. Physical therapy eval 3. Consider Acute rehab eval 4. Transfer to [facility] surge of stable Disposition Continue current care Problems: HERMAN CARDENAS MD, FCCP October 03, 2016 11:02
--- NOTE | 2016-10-03 11:36 | CONS ---
Date/Time of Note Date/Time of Note DATE: 10/03/16 TIME: 11:34 Assessment/Plan Assessment/Plan Additional Assessment/Plan 1. Hypotension/shock state, question cardiogenic versus septic unlikely as patient had a low EF with negative cardiac enzymes-Now off Levo with reasonable BP - BETTER now, BP improved 2. Congestive heart failure, systolic, acute on chronic- con't gentle diuresis 3. Coronary artery disease, status post coronary artery bypass graft surgery. 4. Chronic kidney disease on hemodialysis. 5. Coagulopathy secondary to Eliquis. 6. History of paroxysmal atrial fibrillation - now in sinus, not paced. 7. Sepsis-improving off pressors -better now 8. Elevated digoxin level. 9. Anemia Consultation Date/Type/Reason Admit Date/Time Sep 19, 2016 at 14:51 Type of Consultation: pulmonary Referring Provider: THERESA RIVERA 24 HR Interval Summary Free Text/Dictation No acute change - in simus now - con't anti-bx ROS: No fever, no chills, no nausea, no vomiting, no diarrhea/constipation No recent weight changes No chest pain, no PND, no orthopnea No dizziness, blurred vision No thirst, no heat or cold intolerance (per nurse) Exam/Review of Systems Vital Signs Vitals Vital Signs Date Time Temp Pulse Resp B/P Pulse Ox O2 Delivery O2 Flow Rate FiO2 10/03/16 08:24 63 10/03/16 07:52 98.0 17 121/58 100 10/02/16 19:00 Nasal Cannula 2.0 09/30/16 13:30 30 Intake and Output 10/02/16 10/02/16 10/03/16 15:00 23:00 07:00 Intake Total 420 ml 700 ml 400 ml Output Total 2030 ml 50 ml 100 ml Balance -1610 ml 650 ml 300 ml Exam General: WN/WD/NAD, AOx confused HEENT: Unicetric/atraumatic/EOMI (does not follow commands) NECK: JVD elevated, no thyromegaly Lymph: no lymphadenopathy HEART: regular with no S3, II/ systolic murmur at apex, pacer LUNGS: Coarse sounds ABD: soft, NT, ND, +BS : Intact Neuro: non focal SKIN: chronic changes EXT: trace edema Results Result Diagram: 10/03/16 1020 10/03/16 1020 Results 24 hrs Laboratory Tests Test 10/02/16 12:10 10/02/16 17:31 10/02/16 23:11 10/03/16 07:53 Bedside Glucose 132 98 125 112 Test 10/03/16 10:20 White Blood Count 4.7 L Red Blood Count 3.18 L Hemoglobin 8.3 L Hematocrit 28.6 L Mean Corpuscular Volume 89.9 Mean Corpuscular Hemoglobin 26.1 L Mean Corpuscular Hemoglobin Concent 29.0 L Red Cell Distribution Width 22.8 H Platelet Count 252 Mean Platelet Volume 11.0 H Neutrophils % 72.7 Lymphocytes % 17.2 Monocytes % 8.0 Eosinophils % 1.5 Basophils % 0.2 Nucleated Red Blood Cells % 0.9 H Neutrophils # 3.4 Lymphocytes # 0.8 Monocytes # 0.4 Eosinophils # 0.1 Basophils # 0.0 Nucleated Red Blood Cells # 0.0 Sodium Level 133 L Potassium Level 4.3 Chloride Level 97 Carbon Dioxide Level 26 Anion Gap 14 Blood Urea Nitrogen 30 #H Creatinine 1.68 H Glucose Level 181 Calcium Level 8.8 Medications Medications Current Medications Apixaban (Eliquis) 2.5 mg BID PO Last administered on 10/03/16 08:31; Admin Dose 2.5 MG; Start 09/19/16 at 21:00; Status Future hold Ascorbic Acid (Vitamin C) 500 mg DAILY PO Last administered on 10/03/16 08:31; Admin Dose 500 MG; Start 09/20/16 at 09:00 Aspirin (Aspirin) 81 mg DAILY PO Last administered on 10/03/16 08:30; Admin Dose 81 MG; Start 09/20/16 at 09:00 Carvedilol (Coreg) 1.5625 mg BID PO Last administered on 09/22/16 20:47; Admin Dose 1.5625 MG; Start 09/19/16 at 21:00; Status Future Hold Digoxin (Digoxin) 0.125 mg Q2D@13 PO Last administered on 10/01/16 13:41; Admin Dose 0.125 MG; Start 09/21/16 at 13:00; Status Future hold Pantoprazole (Protonix Iv) 40 mg BID@06,18 IV Last administered on 10/03/16 05: 11; Admin Dose 40 MG; Start 09/20/16 at 06:00 Furosemide (Lasix) 20 mg DAILY@06 IV Last administered on 10/03/16 05:11; Admin Dose 20 MG; Start 09/20/16 at 06:00 Miscellaneous Information 1 ea NOTE XX ; Start 09/21/16 at 14:00 Dextrose (D50w Syringe) 25 ml Q15M PRN IV DECREASED GLUCOSE; Start 09/21/16 at 14:00 IV Flush (NS 10 ml) 10 ml PRN PRN IV IV PROTOCOL; Start 09/22/16 at 18:30 Docusate Sodium (Colace Liquid Cup) 200 mg QHS NGT Last administered on 05:18; Admin Dose 200 MG; Start 09/24/16 at 21:00 Potassium Chloride (Potassium Chloride Pwd/Soln) 20 meq BID NGT Last administered on 10/03/16 08:30; Admin Dose 20 MEQ; Start 09/27/16 at 09:00 Lorazepam (Ativan) 1 mg Q4H PRN IV AGITATION/ANXIETY; Start 09/27/16 at 17:30 Morphine Sulfate (morphine) 2 mg Q4H PRN IV PAIN Last administered on 10/01/16 00:05; Admin Dose 2 MG; Start 09/28/16 at 11:30 Povidone Iodine (Povidone-Iodine) 1 applic DAILY TOP Last administered on 10:34; Admin Dose 1 APPLIC; Start 09/29/16 at 09:00 Collagenase (Santyl) 1 applic DAILY TOP Last administered on 10/03/16 09:00; Admin Dose 1 APPLIC; Start 09/28/16 at 19:30 Sodium Phosphate (Kphos Neutral) 250 mg BID PO Last administered on 10/03/16 08 :31; Admin Dose 250 MG; Start 09/29/16 at 21:00; Stop 10/03/16 at 20:59 Hydralazine HCl (Apresoline) 10 mg Q8 PO ; Start 10/02/16 at 22:00 Diagnostic Test (Pha) (Accu-Chek) 1 ea 02 XX ; Start 10/03/16 at 02:00 Miscellaneous Information 1 ea NOTE XX ; Start 10/02/16 at 23:30 Glucose (Glutose) 15 gm Q15M PRN PO DECREASED GLUCOSE; Start 10/02/16 at 23:30 Glucose (Glutose) 22.5 gm Q15M PRN PO DECREASED GLUCOSE; Start 10/02/16 at 23:30 Dextrose (D50w Syringe) 25 ml Q15M PRN IV DECREASED GLUCOSE; Start 10/02/16 at 23:30 Dextrose (D50w Syringe) 50 ml Q15M PRN IV DECREASED GLUCOSE; Start 10/02/16 at 23:30 Glucagon (Glucagen) 1 mg Q15M PRN IM DECREASED GLUCOSE; Start 10/02/16 at 23:30 Glucose (Glutose) 15 gm Q15M PRN BUCCAL DECREASED GLUCOSE; Start 10/02/16 at 23: 30 DODIE OLMSTEAD MD October 03, 2016 11:36
[2016-10-03] MEDS: DIGOXIN 0.125 MG TAB PO SCH (13:00)
--- NOTE | 2016-10-03 14:51 | CONS ---
Date/Time of Note Date/Time of Note DATE: 10/03/16 TIME: 14:50 Assessment/Plan Assessment/Plan Chief Complaint/Hosp Course 1. Chronic kidney disease requiring hemodialysis 2. Chronic systolic heart failure. 3. s/p hypoxic respiratory failure off vent 4. History of acute tubular necrosis. 5. Cardiomyopathy. 6. Anemia. 7. Neutropenia. 8. The patient has hypoalbuminemia. 9. History of sepsis. Problems: Additional Assessment/Plan 1. Continue HD Consultation Date/Type/Reason Admit Date/Time Sep 19, 2016 at 14:51 Initial Consult Date 09/19/2016 Type of Consultation: nephrology Reason for Consultation dr Lamar Referring Provider: THERESA RIVERA 24 HR Interval Summary Constitutional: no complaints Exam/Review of Systems Vital Signs Vitals Vital Signs Date Time Temp Pulse Resp B/P Pulse Ox O2 Delivery O2 Flow Rate FiO2 10/03/16 12:45 67 10/03/16 12:02 98.2 19 108/42 99 10/03/16 08:30 Nasal Cannula 2.0 09/30/16 13:30 30 Intake and Output 10/02/16 10/02/16 10/03/16 15:00 23:00 07:00 Intake Total 420 ml 700 ml 400 ml Output Total 2030 ml 50 ml 100 ml Balance -1610 ml 650 ml 300 ml Exam Constitutional: alert, oriented Respiratory: clear to auscultation, diminished breath sounds Cardiovascular: regular rate and rhythm Gastrointestinal: soft Results Result Diagram: 10/03/16 1020 10/03/16 1020 Results 24 hrs Laboratory Tests Test 10/02/16 17:31 10/02/16 23:11 10/03/16 07:53 10/03/16 10:20 Bedside Glucose 98 125 112 White Blood Count 4.7 L Red Blood Count 3.18 L Hemoglobin 8.3 L Hematocrit 28.6 L Mean Corpuscular Volume 89.9 Mean Corpuscular Hemoglobin 26.1 L Mean Corpuscular Hemoglobin Concent 29.0 L Red Cell Distribution Width 22.8 H Platelet Count 252 Mean Platelet Volume 11.0 H Neutrophils % 72.7 Lymphocytes % 17.2 Monocytes % 8.0 Eosinophils % 1.5 Basophils % 0.2 Nucleated Red Blood Cells % 0.9 H Neutrophils # 3.4 Lymphocytes # 0.8 Monocytes # 0.4 Eosinophils # 0.1 Basophils # 0.0 Nucleated Red Blood Cells # 0.0 Sodium Level 133 L Potassium Level 4.3 Chloride Level 97 Carbon Dioxide Level 26 Anion Gap 14 Blood Urea Nitrogen 30 #H Creatinine 1.68 H Glucose Level 181 Calcium Level 8.8 Test 10/03/16 13:09 Bedside Glucose 138 Medications Medications Current Medications Apixaban (Eliquis) 2.5 mg BID PO Last administered on 10/03/16 08:31; Admin Dose 2.5 MG; Start 09/19/16 at 21:00; Status Future hold Ascorbic Acid (Vitamin C) 500 mg DAILY PO Last administered on 10/03/16 08:31; Admin Dose 500 MG; Start 09/20/16 at 09:00 Aspirin (Aspirin) 81 mg DAILY PO Last administered on 10/03/16 08:30; Admin Dose 81 MG; Start 09/20/16 at 09:00 Carvedilol (Coreg) 1.5625 mg BID PO Last administered on 09/22/16 20:47; Admin Dose 1.5625 MG; Start 09/19/16 at 21:00; Status Future Hold Digoxin (Digoxin) 0.125 mg Q2D@13 PO Last administered on 10/01/16 13:41; Admin Dose 0.125 MG; Start 09/21/16 at 13:00; Status Future hold Pantoprazole (Protonix Iv) 40 mg BID@06,18 IV Last administered on 10/03/16 05: 11; Admin Dose 40 MG; Start 09/20/16 at 06:00 Furosemide (Lasix) 20 mg DAILY@06 IV Last administered on 10/03/16 05:11; Admin Dose 20 MG; Start 09/20/16 at 06:00 Miscellaneous Information 1 ea NOTE XX ; Start 09/21/16 at 14:00 Dextrose (D50w Syringe) 25 ml Q15M PRN IV DECREASED GLUCOSE; Start 09/21/16 at 14:00 IV Flush (NS 10 ml) 10 ml PRN PRN IV IV PROTOCOL; Start 09/22/16 at 18:30 Docusate Sodium (Colace Liquid Cup) 200 mg QHS NGT Last administered on 05:18; Admin Dose 200 MG; Start 09/24/16 at 21:00 Potassium Chloride (Potassium Chloride Pwd/Soln) 20 meq BID NGT Last administered on 10/03/16 08:30; Admin Dose 20 MEQ; Start 09/27/16 at 09:00 Lorazepam (Ativan) 1 mg Q4H PRN IV AGITATION/ANXIETY; Start 09/27/16 at 17:30 Morphine Sulfate (morphine) 2 mg Q4H PRN IV PAIN Last administered on 10/01/16 00:05; Admin Dose 2 MG; Start 09/28/16 at 11:30 Povidone Iodine (Povidone-Iodine) 1 applic DAILY TOP Last administered on 10:34; Admin Dose 1 APPLIC; Start 09/29/16 at 09:00 Collagenase (Santyl) 1 applic DAILY TOP Last administered on 10/03/16 09:00; Admin Dose 1 APPLIC; Start 09/28/16 at 19:30 Sodium Phosphate (Kphos Neutral) 250 mg BID PO Last administered on 10/03/16 08 :31; Admin Dose 250 MG; Start 09/29/16 at 21:00; Stop 10/03/16 at 20:59 Hydralazine HCl (Apresoline) 10 mg Q8 PO ; Start 10/02/16 at 22:00 Diagnostic Test (Pha) (Accu-Chek) 1 ea 02 XX ; Start 10/03/16 at 02:00 Miscellaneous Information 1 ea NOTE XX ; Start 10/02/16 at 23:30 Glucose (Glutose) 15 gm Q15M PRN PO DECREASED GLUCOSE; Start 10/02/16 at 23:30 Glucose (Glutose) 22.5 gm Q15M PRN PO DECREASED GLUCOSE; Start 10/02/16 at 23:30 Dextrose (D50w Syringe) 25 ml Q15M PRN IV DECREASED GLUCOSE; Start 10/02/16 at 23:30 Dextrose (D50w Syringe) 50 ml Q15M PRN IV DECREASED GLUCOSE; Start 10/02/16 at 23:30 Glucagon (Glucagen) 1 mg Q15M PRN IM DECREASED GLUCOSE; Start 10/02/16 at 23:30 Glucose (Glutose) 15 gm Q15M PRN BUCCAL DECREASED GLUCOSE; Start 10/02/16 at 23: 30 RAMONA MCCLOUD October 03, 2016 14:51
--- NOTE | 2016-10-03 14:52 | RADRPT ---
PROCEDURE: Swallow evaluation CLINICAL INDICATION: Aspiration risk. TECHNIQUE: The patient was given multiple consistencies of barium to drink by the speech therapist . Multiple fluoroscopic spot images were obtained. Total fluoroscopic time was 2.7 min . A total o f 120 cc barium contrast was administered orally. COMPARISON: No prior exam is available for comparison. FINDINGS: The patient was administered thin and nectar-thick liquid as well as pudding and cookie. Transient p enetration with no aspiration was noted with nectar thin liquids. No penetration or aspiration iden tified with pureed or solid foods. No aspiration was identified throughout the examination. IMPRESSION: 1. Mild penetration with nectar thin liquids. No aspiration identified. 2. Please see the speech therapy note for further details. RPTAT: HH .Jefe Schilling MD, Date Time Electronically viewed and signed by .Jefe Schilling MD, on 10/03/2016 14:52 .M/
--- NOTE | 2016-10-03 20:39 | CONS ---
Date/Time of Note Date/Time of Note DATE: 10/03/16 TIME: 20:38 Assessment/Plan Assessment/Plan Chief Complaint/Hosp Course SUBJECTIVE: No events overnight. No fevers. The patient is alert, looks comfortable. Son at bedside. INDWELLINGS: Right chest PermCath, Gan catheter, permanent pacemaker and right upper extremity PICC line.. DIAGNOSTICS: Chest x-ray this morning revealed unchanged pulmonary edema with small bilateral pleural effusions. PHYSICAL EXAMINATION: GENERAL: This is a fragile well-developed elderly man who is alert, in no distress. HEENT: Head atraumatic, normocephalic. Sclerae anicteric. Buccal mucosa dry. NECK: Supple, trachea midline. CHEST: Rise symmetrical. Breath sounds diminished to bases. HEART: S1, S2. ABDOMEN: Soft, bowel sounds present. EXTREMITIES: With trace lower extremity edema and multiple scabs. ASSESSMENT: 1. Status post acute respiratory failure secondary to fluid overload and possible aspiration event. 2. End-stage renal disease, hemodialysis dependent. 3. Status post urinary tract infection and pneumonia. 4. 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 5. Diabetes with diabetic foot ulcerations==> no active infection. PLAN: The patient remains stable off antibiotics. Continue present care, HD, anti-aspiration measures. DW staff Problems: Consultation Date/Type/Reason Admit Date/Time Sep 19, 2016 at 14:51 Initial Consult Date Type of Consultation: ID Referring Provider: THERESA RIVERA Exam/Review of Systems Vital Signs Vitals Vital Signs Date Time Temp Pulse Resp B/P Pulse Ox O2 Delivery O2 Flow Rate FiO2 10/03/16 19:45 Nasal Cannula 2.0 10/03/16 19:43 97.4 68 18 135/61 100 09/30/16 13:30 30 Intake and Output 10/02/16 10/02/16 10/03/16 15:00 23:00 07:00 Intake Total 420 ml 700 ml 400 ml Output Total 2030 ml 50 ml 100 ml Balance -1610 ml 650 ml 300 ml Results Result Diagram: 10/03/16 1020 10/03/16 1020 Results 24 hrs Laboratory Tests Test 10/02/16 23:11 10/03/16 07:53 10/03/16 10:20 10/03/16 13:09 Bedside Glucose 125 112 138 White Blood Count 4.7 L Red Blood Count 3.18 L Hemoglobin 8.3 L Hematocrit 28.6 L Mean Corpuscular Volume 89.9 Mean Corpuscular Hemoglobin 26.1 L Mean Corpuscular Hemoglobin Concent 29.0 L Red Cell Distribution Width 22.8 H Platelet Count 252 Mean Platelet Volume 11.0 H Neutrophils % 72.7 Lymphocytes % 17.2 Monocytes % 8.0 Eosinophils % 1.5 Basophils % 0.2 Nucleated Red Blood Cells % 0.9 H Neutrophils # 3.4 Lymphocytes # 0.8 Monocytes # 0.4 Eosinophils # 0.1 Basophils # 0.0 Nucleated Red Blood Cells # 0.0 Sodium Level 133 L Potassium Level 4.3 Chloride Level 97 Carbon Dioxide Level 26 Anion Gap 14 Blood Urea Nitrogen 30 #H Creatinine 1.68 H Glucose Level 181 Calcium Level 8.8 Test 10/03/16 17:25 Bedside Glucose 114 Medications Medications Current Medications Apixaban (Eliquis) 2.5 mg BID PO Last administered on 10/03/16 20:33; Admin Dose 2.5 MG; Start 09/19/16 at 21:00; Status Future hold Ascorbic Acid (Vitamin C) 500 mg DAILY PO Last administered on 10/03/16 08:31; Admin Dose 500 MG; Start 09/20/16 at 09:00 Aspirin (Aspirin) 81 mg DAILY PO Last administered on 10/03/16 08:30; Admin Dose 81 MG; Start 09/20/16 at 09:00 Carvedilol (Coreg) 1.5625 mg BID PO Last administered on 09/22/16 20:47; Admin Dose 1.5625 MG; Start 09/19/16 at 21:00; Status Future Hold Digoxin (Digoxin) 0.125 mg Q2D@13 PO Last administered on 10/01/16 13:41; Admin Dose 0.125 MG; Start 09/21/16 at 13:00; Status Future hold Pantoprazole (Protonix Iv) 40 mg BID@,18 IV Last administered on 10/03/16 18: 49; Admin Dose 40 MG; Start 09/20/16 at 06:00 Furosemide (Lasix) 20 mg DAILY@06 IV Last administered on 10/03/16 05:11; Admin Dose 20 MG; Start 09/20/16 at 06:00 Miscellaneous Information 1 ea NOTE XX ; Start 09/21/16 at 14:00 Dextrose (D50w Syringe) 25 ml Q15M PRN IV DECREASED GLUCOSE; Start 09/21/16 at 14:00 IV Flush (NS 10 ml) 10 ml PRN PRN IV IV PROTOCOL; Start 09/22/16 at 18:30 Docusate Sodium (Colace Liquid Cup) 200 mg QHS NGT Last administered on 05:18; Admin Dose 200 MG; Start 09/24/16 at 21:00 Potassium Chloride (Potassium Chloride Pwd/Soln) 20 meq BID NGT Last administered on 10/03/16 20:33; Admin Dose 20 MEQ; Start 09/27/16 at 09:00 Lorazepam (Ativan) 1 mg Q4H PRN IV AGITATION/ANXIETY; Start 09/27/16 at 17:30 Morphine Sulfate (morphine) 2 mg Q4H PRN IV PAIN Last administered on 10/01/16 00:05; Admin Dose 2 MG; Start 09/28/16 at 11:30 Povidone Iodine (Povidone-Iodine) 1 applic DAILY TOP Last administered on 10:34; Admin Dose 1 APPLIC; Start 09/29/16 at 09:00 Collagenase (Santyl) 1 applic DAILY TOP Last administered on 10/03/16 09:00; Admin Dose 1 APPLIC; Start 09/28/16 at 19:30 Sodium Phosphate (Kphos Neutral) 250 mg BID PO Last administered on 10/03/16 08 :31; Admin Dose 250 MG; Start 09/29/16 at 21:00; Stop 10/03/16 at 20:59 Hydralazine HCl (Apresoline) 10 mg Q8 PO Last administered on 10/03/16 15:18; Admin Dose 10 MG; Start 10/02/16 at 22:00 Diagnostic Test (Pha) (Accu-Chek) 1 ea 02 XX ; Start 10/03/16 at 02:00 Miscellaneous Information 1 ea NOTE XX ; Start 10/02/16 at 23:30 Glucose (Glutose) 15 gm Q15M PRN PO DECREASED GLUCOSE; Start 10/02/16 at 23:30 Glucose (Glutose) 22.5 gm Q15M PRN PO DECREASED GLUCOSE; Start 10/02/16 at 23:30 Dextrose (D50w Syringe) 25 ml Q15M PRN IV DECREASED GLUCOSE; Start 10/02/16 at 23:30 Dextrose (D50w Syringe) 50 ml Q15M PRN IV DECREASED GLUCOSE; Start 10/02/16 at 23:30 Glucagon (Glucagen) 1 mg Q15M PRN IM DECREASED GLUCOSE; Start 10/02/16 at 23:30 Glucose (Glutose) 15 gm Q15M PRN BUCCAL DECREASED GLUCOSE; Start 10/02/16 at 23: 30 Simethicone (Mylicon) 80 mg Q6H PRN PO DISTENSION/GAS/BLOATING Last administered on 10/03/16t 17:18; Admin Dose 80 MG; Start 10/03/16 at 17:30 Polyethylene Glycol (Miralax) 8.5 gm DAILY PO ; Start 10/04/16 at 09:00 ADA MICHELLE NP October 03, 2016 20:39
[2016-10-04] VITALS (22 sets, daily range): BP systolic 84–138; BP diastolic 38–63; PULSE 60–90; RESP 16–20
[2016-10-04] MEDS: ACCU-CHEK XX SCH (02:00)
[2016-10-04] MEDS: FUROSEMIDE 20 MG INJ IV SCH (05:12)
[2016-10-04] MEDS: PANTOPRAZOLE 40 MG INJ IV SCH ×2 (05:12→17:25)
[2016-10-04 07:12] LABS: ADD SCAN DIFF NO
[2016-10-04 07:24] LABS: ABNORMAL IP MESSAGE 1; BASOPHILS % 0.1 % (0.0-2.0); HEMATOCRIT 30.9 % (42.0-52.0); HEMOGLOBIN 8.9 g/dl (14.0-18.0); LYMPHOCYTES # 0.5 10^3/ul (0.8-2.9); LYMPHOCYTES % 5.9 % (15.0-51.0); MEAN CORPUSCULAR HEMOGLOBIN 26.6 pg (29.0-33.0); MEAN CORPUSCULAR HGB CONC 28.8 g/dl (32.0-37.0); MEAN CORPUSCULAR VOLUME 92.5 fl (82.0-101.0); MEAN PLATELET VOLUME 11.7 fl (7.4-10.4); MONOCYTE # 0.7 10^3/ul (0.3-0.9); MONOCYTES % 9.4 % (0.0-11.0); NEUTROPHIL # 6.5 10^3/ul (1.6-7.5); NUCLEATED RED BLOOD CELLS # 0.3 10^3/ul (0.0-0.0); NUCLEATED RED BLOOD CELLS% 3.9 /100WBC (0.0-0.0); PLATELET COUNT 338 10^3/UL (140-415); RED BLOOD COUNT 3.34 10^6/ul (4.70-6.10); RED CELL DISTRIBUTION WIDTH 23.1 % (11.5-14.5); WHITE BLOOD COUNT 7.8 10^3/ul (4.8-10.8)
[2016-10-04 07:39] LABS: ALBUMIN 3.7 g/dl (3.3-4.9); BILIRUBIN,DIRECT 0.8 mg/dl (0.00-0.20); BILIRUBIN,INDIRECT 1.2 mg/dl (0-1.1); CALCIUM 9.4 mg/dl (8.4-10.2); CREATININE 2.38 mg/dl (0.61-1.24); MAGNESIUM 1.7 mg/dl (1.7-2.5); PHOSPHORUS 5.5 mg/dl (2.5-4.9); POTASSIUM 5.2 mmol/L (3.5-5.1)
[2016-10-04 07:43] LABS: INR 3.5; PROTIME 35.7 Sec (12.2-14.2); PT RATIO 2.8
[2016-10-04 07:44] LABS: PARTIAL THROMBOPLASTIN TIME 44.9 Sec (25.0-35.0)
[2016-10-04] MEDS: INSULIN ASPART [NOVOLOG] 3 ML PEN SC SCH ×4 (07:55→20:08)
[2016-10-04] MEDS: ASPIRIN 81 MG TAB PO SCH (09:01)
[2016-10-04] MEDS: POTASSIUM CHLORIDE 20 MEQ POWDER FOR ORAL SOLN NGT SCH ×2 (09:01→20:02)
[2016-10-04] MEDS: POVIDONE IODINE 10% 28.4 GM OINT TOP SCH (09:02)
[2016-10-04] MEDS: COLLAGENASE 30 GM TUBE TOP SCH (09:02)
[2016-10-04] MEDS: ASCORBIC ACID 500 MG TAB PO SCH (09:02)
[2016-10-04] MEDS: APIXABAN 5 MG TABLET PO SCH ×2 (09:02→20:03)
[2016-10-04] MEDS: POLYETHYLENE GLYCOL 17 GM PACKET PO SCH (09:03)
--- NOTE | 2016-10-04 14:09 | CONS ---
Date/Time of Note Date/Time of Note DATE: 10/04/16 TIME: 14:08 Consult Date/Type/Reason Admit Date/Time Sep 19, 2016 at 14:51 Type of Consultation: pulmonary Ordering Provider: THERESA RIVERA Subjective Patient more short of breath this morning breathing more labored Started on pured diet yesterday Objective Vital Signs Date Time Temp Pulse Resp B/P Pulse Ox O2 Delivery O2 Flow Rate FiO2 10/04/16 12:27 79 10/04/16 12:26 99 50 10/04/16 12:00 Nasal Cannula 2.0 10/04/16 11:20 97.3 17 113/57 Intake and Output 10/03/16 10/03/16 10/04/16 15:00 23:00 07:00 Intake Total 600 ml 400 ml Output Total 250 ml 200 ml Balance 350 ml 200 ml Exam GENERAL: Elderly gentleman comfortable at rest extensive family at bedside VITAL SIGNS: per chart NECK: Supple. No JVD or lymphadenopathy. CARDIAC EXAM: S1, S2. No added sounds or murmurs. CHEST: Diminished air entry bilaterally labored ABDOMEN: Soft, nontender. No guarding or rebound. EXTREMITIES: No cyanosis, clubbing or edema. NEUROLOGIC: Generalized weakness. No focal deficits. Results/Medications Result Diagram: 10/04/16 0600 10/04/16 0550 Results 24 hrs Laboratory Tests Test 10/03/16 17:25 10/03/16 20:25 10/04/16 05:50 10/04/16 06:00 Bedside Glucose 114 142 Sodium Level 132 L Potassium Level 5.2 H Chloride Level 97 Carbon Dioxide Level 14 #L Anion Gap 26 #H Blood Urea Nitrogen 34 H Creatinine 2.38 H Glucose Level 78 # Calcium Level 9.4 Phosphorus Level 5.5 H Magnesium Level 1.7 Total Bilirubin 2.0 H Direct Bilirubin 0.80 H Indirect Bilirubin 1.2 H Aspartate Amino Transf (AST/SGOT) 23 Alanine Aminotransferase (ALT/SGPT) 25 Alkaline Phosphatase 94 Total Protein 7.0 Albumin 3.7 White Blood Count 7.8 # Red Blood Count 3.34 L Hemoglobin 8.9 L Hematocrit 30.9 L Mean Corpuscular Volume 92.5 Mean Corpuscular Hemoglobin 26.6 L Mean Corpuscular Hemoglobin Concent 28.8 L Red Cell Distribution Width 23.1 H Platelet Count 338 # Mean Platelet Volume 11.7 H Neutrophils % 84.0 H Lymphocytes % 5.9 L Monocytes % 9.4 Eosinophils % 0.0 Basophils % 0.1 Nucleated Red Blood Cells % 3.9 H Neutrophils # 6.5 Lymphocytes # 0.5 L Monocytes # 0.7 Eosinophils # 0.0 Basophils # 0.0 Nucleated Red Blood Cells # 0.3 H Prothrombin Time 35.7 #H Prothrombin Time Ratio 2.8 INR International Normalized Ratio 3.50 Activated Partial Thromboplast Time 44.9 H Test 10/04/16 08:01 10/04/16 11:47 Bedside Glucose 80 86 Medications Current Medications Apixaban (Eliquis) 2.5 mg BID PO Last administered on 10/04/16 09:02; Admin Dose 2.5 MG; Start 09/19/16 at 21:00; Status Future hold Ascorbic Acid (Vitamin C) 500 mg DAILY PO Last administered on 10/04/16 09:02; Admin Dose 500 MG; Start 09/20/16 at 09:00 Aspirin (Aspirin) 81 mg DAILY PO Last administered on 10/04/16 09:01; Admin Dose 81 MG; Start 09/20/16 at 09:00 Carvedilol (Coreg) 1.5625 mg BID PO Last administered on 09/22/16 20:47; Admin Dose 1.5625 MG; Start 09/19/16 at 21:00; Status Future Hold Digoxin (Digoxin) 0.125 mg Q2D@13 PO Last administered on 10/01/16 13:41; Admin Dose 0.125 MG; Start 09/21/16 at 13:00; Status Future hold Pantoprazole (Protonix Iv) 40 mg BID@06,18 IV Last administered on 10/04/16 05: 12; Admin Dose 40 MG; Start 09/20/16 at 06:00 Furosemide (Lasix) 20 mg DAILY@06 IV Last administered on 10/04/16 05:12; Admin Dose 20 MG; Start 09/20/16 at 06:00 Miscellaneous Information 1 ea NOTE XX ; Start 09/21/16 at 14:00 Dextrose (D50w Syringe) 25 ml Q15M PRN IV DECREASED GLUCOSE; Start 09/21/16 at 14:00 IV Flush (NS 10 ml) 10 ml PRN PRN IV IV PROTOCOL; Start 09/22/16 at 18:30 Docusate Sodium (Colace Liquid Cup) 200 mg QHS NGT Last administered on 05:18; Admin Dose 200 MG; Start 09/24/16 at 21:00 Potassium Chloride (Potassium Chloride Pwd/Soln) 20 meq BID NGT Last administered on 10/04/16 09:01; Admin Dose 20 MEQ; Start 09/27/16 at 09:00 Lorazepam (Ativan) 1 mg Q4H PRN IV AGITATION/ANXIETY Last administered on 22:04; Admin Dose 1 MG; Start 09/27/16 at 17:30 Morphine Sulfate (morphine) 2 mg Q4H PRN IV PAIN Last administered on 10/01/16 00:05; Admin Dose 2 MG; Start 09/28/16 at 11:30 Povidone Iodine (Povidone-Iodine) 1 applic DAILY TOP Last administered on 09:02; Admin Dose 1 APPLIC; Start 09/29/16 at 09:00 Collagenase (Santyl) 1 applic DAILY TOP Last administered on 10/04/16 09:02; Admin Dose 1 APPLIC; Start 09/28/16 at 19:30 Hydralazine HCl (Apresoline) 10 mg Q8 PO Last administered on 10/04/16 05:16; Admin Dose 10 MG; Start 10/02/16 at 22:00 Diagnostic Test (Pha) (Accu-Chek) 1 ea 02 XX ; Start 10/03/16 at 02:00 Miscellaneous Information 1 ea NOTE XX ; Start 10/02/16 at 23:30 Glucose (Glutose) 15 gm Q15M PRN PO DECREASED GLUCOSE; Start 10/02/16 at 23:30 Glucose (Glutose) 22.5 gm Q15M PRN PO DECREASED GLUCOSE; Start 10/02/16 at 23:30 Dextrose (D50w Syringe) 25 ml Q15M PRN IV DECREASED GLUCOSE; Start 10/02/16 at 23:30 Dextrose (D50w Syringe) 50 ml Q15M PRN IV DECREASED GLUCOSE; Start 10/02/16 at 23:30 Glucagon (Glucagen) 1 mg Q15M PRN IM DECREASED GLUCOSE; Start 10/02/16 at 23:30 Glucose (Glutose) 15 gm Q15M PRN BUCCAL DECREASED GLUCOSE; Start 10/02/16 at 23: 30 Simethicone (Mylicon) 80 mg Q6H PRN PO DISTENSION/GAS/BLOATING Last administered on 10/03/16 17:18; Admin Dose 80 MG; Start 10/03/16 at 17:30 Polyethylene Glycol (Miralax) 8.5 gm DAILY PO Last administered on 10/04/16 09: 03; Admin Dose 8.5 GM; Start 10/04/16 at 09:00 Assessment/Plan Chief Complaint/Hosp Course Assessment 1. Status post hypoxemic respiratory failure, recurrent hypoxemia with respiratory failure 2. Aspiration pneumonia 3. Renal insufficiency 4. Deconditioning Plan 1. Increasing respiratory distress keep nothing by mouth for now, start noninvasive positive pressure ventilation 2. Physical therapy eval if more stable 3. Consider Acute rehab eval if more stable 4. Continue telemetry Disposition Continue current care Discussed with extensive family at bedside agree to continue DNR/DNI however wish to continue with aggressive treatment which is appropriate The patient continued to decline hospice care may be more appropriate Problems: HERMAN CARDENAS MD, [facility] October 04, 2016 14:09
--- NOTE | 2016-10-04 14:10 | EN ---
Date/Time of Note Date/Time of Note DATE: 10/04/16 TIME: 14:10 Event Note Medicine Medicine Event Note We discussed with family patient will need emergent hemodialysis today likely tomorrow also HERMAN CARDENAS MD, [facility] October 04, 2016 14:10
--- NOTE | 2016-10-04 14:37 | RADRPT ---
PROCEDURE: XR Chest. CLINICAL INDICATION: Shortness of breath. TECHNIQUE: Single frontal view. COMPARISON: 10/02/2016. FINDINGS: The right internal jugular vein tunneled dialysis catheter, right arm PICC line, left-sided permanen t pacemaker/internal cardiac defibrillator, sternal wires, and mediastinal clips are all once again noted and appears satisfactory. There is bilateral air space and interstitial disease consistent wi th pulmonary edema, unchanged. The heart is enlarged. There is no pleural effusion. There is no pneumothorax. IMPRESSION: 1. Tubes and lines and postoperative changes, similar to the prior study. 2. Cardiomegaly and atherosclerosis. 3. Unchanged pulmonary edema. RPTAT: QQ .Eugenio Ruano MD, MD Date Time Electronically viewed and signed by .Eugenio Ruano MD, MD on 10/04/2016 14:37 .R/
[2016-10-04] MEDS ORDERED: ONDANSETRON 4 MG INJ IV PRN (15:00)
[2016-10-04] MEDS ORDERED: ALBUMIN HUMAN 25% 100 ML IV ONE (15:30)
--- NOTE | 2016-10-04 16:36 | CONS ---
Date/Time of Note Date/Time of Note DATE: 10/04/16 TIME: 16:34 Assessment/Plan Assessment/Plan Chief Complaint/Hosp Course SUBJECTIVE: Lethyargic, on Bipap, no fevers, nad. Family at bedside. INDWELLINGS: Right chest PermCath, Gan catheter, permanent pacemaker and right upper extremity PICC line.. PHYSICAL EXAMINATION: GENERAL: This is a fragile well-developed elderly man who is alert, in no distress. HEENT: Head atraumatic, normocephalic. Sclerae anicteric. Buccal mucosa dry. NECK: Supple, trachea midline. CHEST: Rise symmetrical. Breath sounds diminished with crackles. HEART: S1, S2. ABDOMEN: Soft, bowel sounds present. EXTREMITIES: With trace lower extremity edema and multiple scabs. ASSESSMENT: 1. Acute respiratory failure secondary to fluid overload ===> on Bipap 2. End-stage renal disease, hemodialysis dependent. 3. Status post urinary tract infection and pneumonia. 4. 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 5. Diabetes with diabetic foot ulcerations==> no active infection. PLAN: On Bipap, awaiting for HD DW staff Problems: Consultation Date/Type/Reason Admit Date/Time Sep 19, 2016 at 14:51 Type of Consultation: id Referring Provider: THERESA RIVERA Exam/Review of Systems Vital Signs Vitals Vital Signs Date Time Temp Pulse Resp B/P Pulse Ox O2 Delivery O2 Flow Rate FiO2 10/04/16 16:14 76 10/04/16 15:03 97.6 16 108/44 100 10/04/16 14:51 6.0 10/04/16 12:26 50 10/04/16 12:00 Nasal Cannula Intake and Output 10/03/16 10/03/16 10/04/16 15:00 23:00 07:00 Intake Total 600 ml 400 ml Output Total 250 ml 200 ml Balance 350 ml 200 ml Results Result Diagram: 10/04/16 0600 10/04/16 0550 Results 24 hrs Laboratory Tests Test 10/03/16 17:25 10/03/16 20:25 10/04/16 05:50 10/04/16 06:00 Bedside Glucose 114 142 Sodium Level 132 L Potassium Level 5.2 H Chloride Level 97 Carbon Dioxide Level 14 #L Anion Gap 26 #H Blood Urea Nitrogen 34 H Creatinine 2.38 H Glucose Level 78 # Calcium Level 9.4 Phosphorus Level 5.5 H Magnesium Level 1.7 Total Bilirubin 2.0 H Direct Bilirubin 0.80 H Indirect Bilirubin 1.2 H Aspartate Amino Transf (AST/SGOT) 23 Alanine Aminotransferase (ALT/SGPT) 25 Alkaline Phosphatase 94 Total Protein 7.0 Albumin 3.7 White Blood Count 7.8 # Red Blood Count 3.34 L Hemoglobin 8.9 L Hematocrit 30.9 L Mean Corpuscular Volume 92.5 Mean Corpuscular Hemoglobin 26.6 L Mean Corpuscular Hemoglobin Concent 28.8 L Red Cell Distribution Width 23.1 H Platelet Count 338 # Mean Platelet Volume 11.7 H Neutrophils % 84.0 H Lymphocytes % 5.9 L Monocytes % 9.4 Eosinophils % 0.0 Basophils % 0.1 Nucleated Red Blood Cells % 3.9 H Neutrophils # 6.5 Lymphocytes # 0.5 L Monocytes # 0.7 Eosinophils # 0.0 Basophils # 0.0 Nucleated Red Blood Cells # 0.3 H Prothrombin Time 35.7 #H Prothrombin Time Ratio 2.8 INR International Normalized Ratio 3.50 Activated Partial Thromboplast Time 44.9 H Test 10/04/16 08:01 10/04/16 11:47 Bedside Glucose 80 86 Medications Medications Current Medications Apixaban (Eliquis) 2.5 mg BID PO Last administered on 10/04/16 09:02; Admin Dose 2.5 MG; Start 09/19/16 at 21:00; Status Future hold Ascorbic Acid (Vitamin C) 500 mg DAILY PO Last administered on 10/04/16 09:02; Admin Dose 500 MG; Start 09/20/16 at 09:00 Aspirin (Aspirin) 81 mg DAILY PO Last administered on 10/04/16 09:01; Admin Dose 81 MG; Start 09/20/16 at 09:00 Carvedilol (Coreg) 1.5625 mg BID PO Last administered on 09/22/16 20:47; Admin Dose 1.5625 MG; Start 09/19/16 at 21:00; Status Future Hold Digoxin (Digoxin) 0.125 mg Q2D@13 PO Last administered on 10/01/16 13:41; Admin Dose 0.125 MG; Start 09/21/16 at 13:00; Status Future hold Pantoprazole (Protonix Iv) 40 mg BID@06,18 IV Last administered on 10/04/16 05: 12; Admin Dose 40 MG; Start 09/20/16 at 06:00 Furosemide (Lasix) 20 mg DAILY@06 IV Last administered on 10/04/16 05:12; Admin Dose 20 MG; Start 09/20/16 at 06:00 Miscellaneous Information 1 ea NOTE XX ; Start 09/21/16 at 14:00 Dextrose (D50w Syringe) 25 ml Q15M PRN IV DECREASED GLUCOSE; Start 09/21/16 at 14:00 IV Flush (NS 10 ml) 10 ml PRN PRN IV IV PROTOCOL; Start 09/22/16 at 18:30 Docusate Sodium (Colace Liquid Cup) 200 mg QHS NGT Last administered on 05:18; Admin Dose 200 MG; Start 09/24/16 at 21:00 Potassium Chloride (Potassium Chloride Pwd/Soln) 20 meq BID NGT Last administered on 10/04/16 09:01; Admin Dose 20 MEQ; Start 09/27/16 at 09:00 Lorazepam (Ativan) 1 mg Q4H PRN IV AGITATION/ANXIETY Last administered on 22:04; Admin Dose 1 MG; Start 09/27/16 at 17:30 Morphine Sulfate (morphine) 2 mg Q4H PRN IV PAIN Last administered on 10/01/16 00:05; Admin Dose 2 MG; Start 09/28/16 at 11:30 Povidone Iodine (Povidone-Iodine) 1 applic DAILY TOP Last administered on 09:02; Admin Dose 1 APPLIC; Start 09/29/16 at 09:00 Collagenase (Santyl) 1 applic DAILY TOP Last administered on 10/04/16 09:02; Admin Dose 1 APPLIC; Start 09/28/16 at 19:30 Hydralazine HCl (Apresoline) 10 mg Q8 PO Last administered on 10/04/16 05:16; Admin Dose 10 MG; Start 10/02/16 at 22:00 Diagnostic Test (Pha) (Accu-Chek) 1 ea 02 XX ; Start 10/03/16 at 02:00 Miscellaneous Information 1 ea NOTE XX ; Start 10/02/16 at 23:30 Glucose (Glutose) 15 gm Q15M PRN PO DECREASED GLUCOSE; Start 10/02/16 at 23:30 Glucose (Glutose) 22.5 gm Q15M PRN PO DECREASED GLUCOSE; Start 10/02/16 at 23:30 Dextrose (D50w Syringe) 25 ml Q15M PRN IV DECREASED GLUCOSE; Start 10/02/16 at 23:30 Dextrose (D50w Syringe) 50 ml Q15M PRN IV DECREASED GLUCOSE; Start 10/02/16 at 23:30 Glucagon (Glucagen) 1 mg Q15M PRN IM DECREASED GLUCOSE; Start 10/02/16 at 23:30 Glucose (Glutose) 15 gm Q15M PRN BUCCAL DECREASED GLUCOSE; Start 10/02/16 at 23: 30 Simethicone (Mylicon) 80 mg Q6H PRN PO DISTENSION/GAS/BLOATING Last administered on 10/03/16 17:18; Admin Dose 80 MG; Start 10/03/16 at 17:30 Polyethylene Glycol (Miralax) 8.5 gm DAILY PO Last administered on 10/04/16 09: 03; Admin Dose 8.5 GM; Start 10/04/16 at 09:00 Ondansetron HCl (Zofran Inj) 4 mg Q4H PRN IV NAUSEA AND/OR VOMITING Last administered on 10/04/16 14:36; Admin Dose 4 MG; Start 10/04/16 at 15:00 ADA MICHELLE NP October 04, 2016 16:36
--- NOTE | 2016-10-04 17:23 | PN ---
Date/Time of Note Date/Time of Note DATE: 10/04/16 TIME: 17:20 Assessment/Plan VTE Prophylaxis VTE Prophylaxis Intervention: other (eliquis) Lines/Catheters IV Catheter Type (from Nrs): PICC Line Central line still needed: Yes Urinary Cath still in place: No Assessment/Plan Assessment/Plan 1. Recurrent VDRF 2/2 #2 : now extubated 2. Endstage CHF with recurrent exacerbation : improved 3. Chronic kidney disease on hemodialysis 3 times a week limited by hypotension 4. S/p shock ?cardiogenic r/o septic now off pressor support 5. Diabetes mellitus type 2 - ISS 6. Paroxysmal atrial fibrillation, rate controlled - monitor, BB, eliquis 7. 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 8. Chronic liver cirrhosis with coagulopathy and mild hyperbilirubinemia and transaminitis likely associated with chronic CHF - monitor 9. Severe debility. 10. 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 11. LE cellulitis and ulcerations ? PVD: resolved 12. Chary UTI PLAN: * Spoke with Dr Lamar for HD today if possible and to change regimen to 4 days a week * continue diuresis and HD * Now off abx * Continue supportive care. * Family does not want a trach / Patient high readmission risk . Recommend home with hospice at discharge, otherwise consider silva Prognosis : In the terminal gauger : guarded Subjective 24 Hr Interval Summary Free Text/Dictation SOB at rest Exam/Review of Systems Vital Signs Vitals Vital Signs Date Time Temp Pulse Resp B/P Pulse Ox O2 Delivery O2 Flow Rate FiO2 10/04/16 17:00 69 19 10/04/16 16:59 6.0 10/04/16 15:03 97.6 108/44 100 10/04/16 12:26 50 10/04/16 12:00 Nasal Cannula Intake and Output 10/03/16 10/03/16 10/04/16 15:00 23:00 07:00 Intake Total 600 ml 400 ml Output Total 250 ml 200 ml Balance 350 ml 200 ml Exam Constitutional: alert, frail, oriented, Mild resp distress Head: normocephalic Eyes: PERRL, icteric ENMT: No mucosa pink and moist Neck: jvd Respiratory: crackles/rales , diminished breath sounds Cardiovascular: murmurs/extra sounds, No regular rate and rhythm Gastrointestinal: bowel sounds, non-tender, soft Extremities: No edema Neurological: lethargic Skin: No rash or lesions Results Result Diagram: 10/04/16 0600 10/04/16 0550 Results 24 hrs Laboratory Tests Test 10/03/16 17:25 10/03/16 20:25 10/04/16 05:50 10/04/16 06:00 Bedside Glucose 114 142 Sodium Level 132 L Potassium Level 5.2 H Chloride Level 97 Carbon Dioxide Level 14 #L Anion Gap 26 #H Blood Urea Nitrogen 34 H Creatinine 2.38 H Glucose Level 78 # Calcium Level 9.4 Phosphorus Level 5.5 H Magnesium Level 1.7 Total Bilirubin 2.0 H Direct Bilirubin 0.80 H Indirect Bilirubin 1.2 H Aspartate Amino Transf (AST/SGOT) 23 Alanine Aminotransferase (ALT/SGPT) 25 Alkaline Phosphatase 94 Total Protein 7.0 Albumin 3.7 White Blood Count 7.8 # Red Blood Count 3.34 L Hemoglobin 8.9 L Hematocrit 30.9 L Mean Corpuscular Volume 92.5 Mean Corpuscular Hemoglobin 26.6 L Mean Corpuscular Hemoglobin Concent 28.8 L Red Cell Distribution Width 23.1 H Platelet Count 338 # Mean Platelet Volume 11.7 H Neutrophils % 84.0 H Lymphocytes % 5.9 L Monocytes % 9.4 Eosinophils % 0.0 Basophils % 0.1 Nucleated Red Blood Cells % 3.9 H Neutrophils # 6.5 Lymphocytes # 0.5 L Monocytes # 0.7 Eosinophils # 0.0 Basophils # 0.0 Nucleated Red Blood Cells # 0.3 H Prothrombin Time 35.7 #H Prothrombin Time Ratio 2.8 INR International Normalized Ratio 3.50 Activated Partial Thromboplast Time 44.9 H Test 10/04/16 08:01 10/04/16 11:47 10/04/16 16:42 Bedside Glucose 80 86 119 Medications Medications Current Medications Apixaban (Eliquis) 2.5 mg BID PO Last administered on 10/04/16 09:02; Admin Dose 2.5 MG; Start 09/19/16 at 21:00; Status Future hold Ascorbic Acid (Vitamin C) 500 mg DAILY PO Last administered on 10/04/16 09:02; Admin Dose 500 MG; Start 09/20/16 at 09:00 Aspirin (Aspirin) 81 mg DAILY PO Last administered on 10/04/16 09:01; Admin Dose 81 MG; Start 09/20/16 at 09:00 Carvedilol (Coreg) 1.5625 mg BID PO Last administered on 09/22/16 20:47; Admin Dose 1.5625 MG; Start 09/19/16 at 21:00; Status Future Hold Digoxin (Digoxin) 0.125 mg Q2D@13 PO Last administered on 10/01/16 13:41; Admin Dose 0.125 MG; Start 09/21/16 at 13:00; Status Future hold Pantoprazole (Protonix Iv) 40 mg BID@06,18 IV Last administered on 10/04/16 05: 12; Admin Dose 40 MG; Start 09/20/16 at 06:00 Furosemide (Lasix) 20 mg DAILY@06 IV Last administered on 10/04/16 05:12; Admin Dose 20 MG; Start 09/20/16 at 06:00 Dextrose (D50w Syringe) 25 ml Q15M PRN IV DECREASED GLUCOSE; Start 09/21/16 at 14:00 IV Flush (NS 10 ml) 10 ml PRN PRN IV IV PROTOCOL; Start 09/22/16 at 18:30 Docusate Sodium (Colace Liquid Cup) 200 mg QHS NGT Last administered on 05:18; Admin Dose 200 MG; Start 09/24/16 at 21:00 Potassium Chloride (Potassium Chloride Pwd/Soln) 20 meq BID NGT Last administered on 10/04/16 09:01; Admin Dose 20 MEQ; Start 09/27/16 at 09:00 Lorazepam (Ativan) 1 mg Q4H PRN IV AGITATION/ANXIETY Last administered on 22:04; Admin Dose 1 MG; Start 09/27/16 at 17:30 Morphine Sulfate (morphine) 2 mg Q4H PRN IV PAIN Last administered on 10/01/16 00:05; Admin Dose 2 MG; Start 09/28/16 at 11:30 Povidone Iodine (Povidone-Iodine) 1 applic DAILY TOP Last administered on 09:02; Admin Dose 1 APPLIC; Start 09/29/16 at 09:00 Collagenase (Santyl) 1 applic DAILY TOP Last administered on 10/04/16 09:02; Admin Dose 1 APPLIC; Start 09/28/16 at 19:30 Hydralazine HCl (Apresoline) 10 mg Q8 PO Last administered on 10/04/16 05:16; Admin Dose 10 MG; Start 10/02/16 at 22:00 Diagnostic Test (Pha) (Accu-Chek) 1 ea 02 XX ; Start 10/03/16 at 02:00 Miscellaneous Information 1 ea NOTE XX ; Start 10/02/16 at 23:30 Glucose (Glutose) 15 gm Q15M PRN PO DECREASED GLUCOSE; Start 10/02/16 at 23:30 Glucose (Glutose) 22.5 gm Q15M PRN PO DECREASED GLUCOSE; Start 10/02/16 at 23:30 Dextrose (D50w Syringe) 25 ml Q15M PRN IV DECREASED GLUCOSE; Start 10/02/16 at 23:30 Dextrose (D50w Syringe) 50 ml Q15M PRN IV DECREASED GLUCOSE; Start 10/02/16 at 23:30 Glucagon (Glucagen) 1 mg Q15M PRN IM DECREASED GLUCOSE; Start 10/02/16 at 23:30 Glucose (Glutose) 15 gm Q15M PRN BUCCAL DECREASED GLUCOSE; Start 10/02/16 at 23: 30 Simethicone (Mylicon) 80 mg Q6H PRN PO DISTENSION/GAS/BLOATING Last administered on 10/03/16 17:18; Admin Dose 80 MG; Start 10/03/16 at 17:30 Polyethylene Glycol (Miralax) 8.5 gm DAILY PO Last administered on 10/04/16 09: 03; Admin Dose 8.5 GM; Start 10/04/16 at 09:00 Ondansetron HCl (Zofran Inj) 4 mg Q4H PRN IV NAUSEA AND/OR VOMITING Last administered on 10/04/16 14:36; Admin Dose 4 MG; Start 10/04/16 at 15:00 Procedures Procedures PROCEDURE: XR Chest. CLINICAL INDICATION: Shortness of breath. TECHNIQUE: Single frontal view. COMPARISON: 10/02/2016. FINDINGS: The right internal jugular vein tunneled dialysis catheter, right arm PICC line , left-sided permanent pacemaker/internal cardiac defibrillator, sternal wires, and mediastinal clips are all once again noted and appears satisfactory. There is bilateral air space and interstitial disease consistent with pulmonary edema , unchanged. The heart is enlarged. There is no pleural effusion. There is no pneumothorax. IMPRESSION: 1. Tubes and lines and postoperative changes, similar to the prior study. 2. Cardiomegaly and atherosclerosis. 3. Unchanged pulmonary edema. RPTAT: QQ .Eugenio Ruano MD, MD Date Time Electronically viewed and signed by .Eugenio Ruano MD, on 10/04/2016 14:37 .R/ CC: BOLA SOLO BOLATITO M. October 04, 2016 17:23
--- NOTE | 2016-10-04 18:31 | CONS ---
Date/Time of Note Date/Time of Note DATE: 10/04/16 TIME: 18:31 Assessment/Plan Assessment/Plan Chief Complaint/Hosp Course IMPRESSION: 1. s/p hypoxic res failure off vent 2. Patient has a chronic systolic heart failure. 3. Chronic kidney disease requiring hemodialysis. 4. History of acute tubular necrosis. 5. Cardiomyopathy. 6. Anemia. 7. Neutropenia. 8. The patient has hypoalbuminemia. 9. Patient has ventilator dependent respiratory failure. 10. History of sepsis. 11. Septic shock.BETTER 12 hypokalemia better 13 HYPOPHOSPHATEMIA better plan continue hd d/w family hd MWF Problems: Consultation Date/Type/Reason Admit Date/Time Sep 19, 2016 at 14:51 Type of Consultation: RENAL Referring Provider: THERESA RIVERA 24 HR Interval Summary Constitutional: other (S/P HD FOR SOB) Exam/Review of Systems Vital Signs Vitals Vital Signs Date Time Temp Pulse Resp B/P Pulse Ox O2 Delivery O2 Flow Rate FiO2 10/04/16 17:24 Nasal Cannula 6.0 10/04/16 17:00 69 19 10/04/16 15:03 97.6 108/44 100 10/04/16 12:26 50 Intake and Output 10/03/16 10/03/16 10/04/16 15:00 23:00 07:00 Intake Total 600 ml 400 ml Output Total 250 ml 200 ml Balance 350 ml 200 ml Exam Respiratory: diminished breath sounds Cardiovascular: regular rate and rhythm Gastrointestinal: bowel sounds (+), soft Extremities: edema Results Result Diagram: 10/04/16 0600 10/04/16 0550 Results 24 hrs Laboratory Tests Test 10/03/16 20:25 10/04/16 05:50 10/04/16 06:00 10/04/16 08:01 Bedside Glucose 142 80 Sodium Level 132 L Potassium Level 5.2 H Chloride Level 97 Carbon Dioxide Level 14 #L Anion Gap 26 #H Blood Urea Nitrogen 34 H Creatinine 2.38 H Glucose Level 78 # Calcium Level 9.4 Phosphorus Level 5.5 H Magnesium Level 1.7 Total Bilirubin 2.0 H Direct Bilirubin 0.80 H Indirect Bilirubin 1.2 H Aspartate Amino Transf (AST/SGOT) 23 Alanine Aminotransferase (ALT/SGPT) 25 Alkaline Phosphatase 94 Total Protein 7.0 Albumin 3.7 White Blood Count 7.8 # Red Blood Count 3.34 L Hemoglobin 8.9 L Hematocrit 30.9 L Mean Corpuscular Volume 92.5 Mean Corpuscular Hemoglobin 26.6 L Mean Corpuscular Hemoglobin Concent 28.8 L Red Cell Distribution Width 23.1 H Platelet Count 338 # Mean Platelet Volume 11.7 H Neutrophils % 84.0 H Lymphocytes % 5.9 L Monocytes % 9.4 Eosinophils % 0.0 Basophils % 0.1 Nucleated Red Blood Cells % 3.9 H Neutrophils # 6.5 Lymphocytes # 0.5 L Monocytes # 0.7 Eosinophils # 0.0 Basophils # 0.0 Nucleated Red Blood Cells # 0.3 H Prothrombin Time 35.7 #H Prothrombin Time Ratio 2.8 INR International Normalized Ratio 3.50 Activated Partial Thromboplast Time 44.9 H Test 10/04/16 11:47 10/04/16 16:42 Bedside Glucose 86 119 Medications Medications Current Medications Apixaban (Eliquis) 2.5 mg BID PO Last administered on 10/04/16 09:02; Admin Dose 2.5 MG; Start 09/19/16 at 21:00; Status Future hold Ascorbic Acid (Vitamin C) 500 mg DAILY PO Last administered on 10/04/16 09:02; Admin Dose 500 MG; Start 09/20/16 at 09:00 Aspirin (Aspirin) 81 mg DAILY PO Last administered on 10/04/16 09:01; Admin Dose 81 MG; Start 09/20/16 at 09:00 Carvedilol (Coreg) 1.5625 mg BID PO Last administered on 09/22/16 20:47; Admin Dose 1.5625 MG; Start 09/19/16 at 21:00; Status Future Hold Digoxin (Digoxin) 0.125 mg Q2D@13 PO Last administered on 10/01/16 13:41; Admin Dose 0.125 MG; Start 09/21/16 at 13:00; Status Future hold Pantoprazole (Protonix Iv) 40 mg BID@06,18 IV Last administered on 10/04/16 17: 25; Admin Dose 40 MG; Start 09/20/16 at 06:00 Furosemide (Lasix) 20 mg DAILY@06 IV Last administered on 10/04/16 05:12; Admin Dose 20 MG; Start 09/20/16 at 06:00 Dextrose (D50w Syringe) 25 ml Q15M PRN IV DECREASED GLUCOSE; Start 09/21/16 at 14:00 IV Flush (NS 10 ml) 10 ml PRN PRN IV IV PROTOCOL; Start 09/22/16 at 18:30 Docusate Sodium (Colace Liquid Cup) 200 mg QHS NGT Last administered on 05:18; Admin Dose 200 MG; Start 09/24/16 at 21:00 Potassium Chloride (Potassium Chloride Pwd/Soln) 20 meq BID NGT Last administered on 10/04/16 09:01; Admin Dose 20 MEQ; Start 09/27/16 at 09:00 Lorazepam (Ativan) 1 mg Q4H PRN IV AGITATION/ANXIETY Last administered on 22:04; Admin Dose 1 MG; Start 09/27/16 at 17:30 Morphine Sulfate (morphine) 2 mg Q4H PRN IV PAIN Last administered on 10/01/16 00:05; Admin Dose 2 MG; Start 09/28/16 at 11:30 Povidone Iodine (Povidone-Iodine) 1 applic DAILY TOP Last administered on 09:02; Admin Dose 1 APPLIC; Start 09/29/16 at 09:00 Collagenase (Santyl) 1 applic DAILY TOP Last administered on 10/04/16 09:02; Admin Dose 1 APPLIC; Start 09/28/16 at 19:30 Hydralazine HCl (Apresoline) 10 mg Q8 PO Last administered on 10/04/16 05:16; Admin Dose 10 MG; Start 10/02/16 at 22:00 Diagnostic Test (Pha) (Accu-Chek) 1 ea 02 XX ; Start 10/03/16 at 02:00 Miscellaneous Information 1 ea NOTE XX ; Start 10/02/16 at 23:30 Glucose (Glutose) 15 gm Q15M PRN PO DECREASED GLUCOSE; Start 10/02/16 at 23:30 Glucose (Glutose) 22.5 gm Q15M PRN PO DECREASED GLUCOSE; Start 10/02/16 at 23:30 Dextrose (D50w Syringe) 25 ml Q15M PRN IV DECREASED GLUCOSE; Start 10/02/16 at 23:30 Dextrose (D50w Syringe) 50 ml Q15M PRN IV DECREASED GLUCOSE; Start 10/02/16 at 23:30 Glucagon (Glucagen) 1 mg Q15M PRN IM DECREASED GLUCOSE; Start 10/02/16 at 23:30 Glucose (Glutose) 15 gm Q15M PRN BUCCAL DECREASED GLUCOSE; Start 10/02/16 at 23: 30 Simethicone (Mylicon) 80 mg Q6H PRN PO DISTENSION/GAS/BLOATING Last administered on 10/03/16 17:18; Admin Dose 80 MG; Start 10/03/16 at 17:30 Polyethylene Glycol (Miralax) 8.5 gm DAILY PO Last administered on 10/04/16 09: 03; Admin Dose 8.5 GM; Start 10/04/16 at 09:00 Ondansetron HCl (Zofran Inj) 4 mg Q4H PRN IV NAUSEA AND/OR VOMITING Last administered on 10/04/16 14:36; Admin Dose 4 MG; Start 10/04/16 at 15:00 YANIRA HART MD October 04, 2016 18:31
[2016-10-04] MEDS: DOCUSATE SODIUM 10 MG/ML (10ML CUP) NGT SCH (20:02)
[2016-10-05] VITALS (19 sets, daily range): BP systolic 86–125; BP diastolic 40–58; PULSE 59–67; RESP 16–20
[2016-10-05] MEDS: ACCU-CHEK XX SCH (02:00)
[2016-10-05] MEDS: PANTOPRAZOLE 40 MG INJ IV SCH ×2 (05:03→17:27)
[2016-10-05] MEDS: FUROSEMIDE 20 MG INJ IV SCH (05:04)
[2016-10-05 07:27] LABS: ADD SCAN DIFF NO
[2016-10-05 07:34] LABS: ABNORMAL IP MESSAGE 1; HEMATOCRIT 29.7 % (42.0-52.0); HEMOGLOBIN 8.5 g/dl (14.0-18.0); LYMPHOCYTES # 0.7 10^3/ul (0.8-2.9); LYMPHOCYTES % 9.6 % (15.0-51.0); MEAN CORPUSCULAR HEMOGLOBIN 26.6 pg (29.0-33.0); MEAN CORPUSCULAR HGB CONC 28.6 g/dl (32.0-37.0); MEAN CORPUSCULAR VOLUME 93.1 fl (82.0-101.0); MEAN PLATELET VOLUME 11.6 fl (7.4-10.4); MONOCYTE # 0.6 10^3/ul (0.3-0.9); MONOCYTES % 8.9 % (0.0-11.0); NEUTROPHIL # 5.7 10^3/ul (1.6-7.5); NEUTROPHILS % 81.1 % (39.0-77.0); NUCLEATED RED BLOOD CELLS # 0.2 10^3/ul (0.0-0.0); NUCLEATED RED BLOOD CELLS% 2.6 /100WBC (0.0-0.0); PLATELET COUNT 329 10^3/UL (140-415); RED BLOOD COUNT 3.19 10^6/ul (4.70-6.10); RED CELL DISTRIBUTION WIDTH 23.1 % (11.5-14.5)
[2016-10-05 07:52] LABS: ALBUMIN 3.6 g/dl (3.3-4.9); POTASSIUM 4.2 mmol/L (3.5-5.1)
[2016-10-05 07:55] LABS: CREATININE 2.23 mg/dl (0.61-1.24); PHOSPHORUS 5.5 mg/dl (2.5-4.9)
[2016-10-05] MEDS: INSULIN ASPART [NOVOLOG] 3 ML PEN SC SCH ×4 (07:55→20:17)
[2016-10-05 07:56] LABS: CALCIUM 9.1 mg/dl (8.4-10.2)
[2016-10-05] MEDS: APIXABAN 5 MG TABLET PO SCH ×2 (08:59→20:17)
[2016-10-05] MEDS: POLYETHYLENE GLYCOL 17 GM PACKET PO SCH (08:59)
[2016-10-05] MEDS: ASPIRIN 81 MG TAB PO SCH (08:59)
[2016-10-05] MEDS: ASCORBIC ACID 500 MG TAB PO SCH (09:00)
[2016-10-05] MEDS: POVIDONE IODINE 10% 28.4 GM OINT TOP SCH ×2 (09:00→13:05)
[2016-10-05] MEDS: POTASSIUM CHLORIDE 20 MEQ POWDER FOR ORAL SOLN NGT SCH ×2 (09:00→20:17)
[2016-10-05] MEDS: COLLAGENASE 30 GM TUBE TOP SCH (09:00)
--- NOTE | 2016-10-05 09:55 | RADRPT ---
PROCEDURE: Chest x-ray CLINICAL INDICATION: Shortness of breath TECHNIQUE: Chest single view COMPARISON: 10/04/2016 FINDINGS: As before there is right IJ dialysis catheter. Left chest single lead AICD is again seen. Stable c ardiomegaly is noted. There is post CABG changes. Ongoing moderate degree CHF is identified. Ther e is stable small left pleural effusion with associated left lower lobe compressive atelectasis. IMPRESSION: 1. Right IJ dialysis catheter, and right arm PICC line remain in good position. 2. Cardiomegaly with ongoing moderate degree CHF and stable small left pleural effusion. 3. Associated left lower lung compressive atelectasis. 4. Stable cardiomegaly. 5. Status post CABG. 6. AICD RPTAT: HH .Celestino Ward MD, Date Time Electronically viewed and signed by .Celestino Ward MD, on 10/05/2016 09:55 .W/
[2016-10-05 10:02] LABS: AADO2 Arterial 82.7 mmHg (7.0-24.0); Allen Test ACCEPTAB; Arterial Base Excess -3.5 mmol/L (-3.0-3); Arterial COHb 0.5 % (0.0-3.0); Arterial Fraction of Oxyhgb 91.5 % (93.0-99.0); Arterial HCO3 23.1 mmol/L (22.0-26.0); Arterial MetHb 0.5 % (0.0-1.5); Arterial Total Hemglobin 10.1 g/dl (12.0-18.0); MODE NASAL CANNULA
--- NOTE | 2016-10-05 10:48 | PN ---
Date/Time of Note Date/Time of Note DATE: 10/05/16 TIME: 10:44 Assessment/Plan VTE Prophylaxis VTE Prophylaxis Intervention: other (Elquis) Lines/Catheters IV Catheter Type (from Nrs): PICC Line Central line still needed: Yes Urinary Cath still in place: No Assessment/Plan Chief Complaint/Hosp Course Assessment/Plan 1. Recurrent VDRF 2/ #2 : now extubated - f/u pulm rec's, for HD today again 2. Endstage CHF with recurrent exacerbation : improved - monitor - Family does not want a trach / Patient high readmission risk . Recommend home with hospice at discharge, otherwise consider silva 3. Chronic kidney disease on hemodialysis 3 times a week limited by hypotension - if possible to change HD regimen to 4 days a week 4. S/p shock ?cardiogenic r/o septic now off pressor support 5. Diabetes mellitus type 2 - ISS 6. Paroxysmal atrial fibrillation, rate controlled - monitor, BB, eliquis 7. 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 8. Chronic liver cirrhosis with coagulopathy and mild hyperbilirubinemia and transaminitis likely associated with chronic CHF - monitor 9. Severe debility. 10. 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 11. LE cellulitis and ulcerations ? PVD: resolved 12. 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 Exam/Review of Systems Vital Signs Vitals Vital Signs Date Time Temp Pulse Resp B/P Pulse Ox O2 Delivery O2 Flow Rate FiO2 10/05/16 08:28 67 10/05/16 07:34 98.0 18 110/53 98 10/05/16 02:35 3.0 10/04/16 19:15 Nasal Cannula 10/04/16 12:26 50 Intake and Output 10/04/16 10/04/16 10/05/16 15:00 23:00 07:00 Intake Total 1000 ml Output Total 4000 ml Balance -3000 ml Exam Constitutional: alert, frail, oriented, Mild resp distress Head: normocephalic Eyes: PERRL, icteric ENMT: No mucosa pink and moist Neck: jvd Respiratory: crackles/rales , diminished breath sounds Cardiovascular: murmurs/extra sounds, No regular rate and rhythm Gastrointestinal: bowel sounds, non-tender, soft Extremities: No edema Neurological: lethargic Skin: No rash or lesions Results Result Diagram: 10/05/16 0610 10/05/16 0610 Results 24 hrs Laboratory Tests Test 10/04/16 11:47 10/04/16 16:42 10/04/16 20:05 10/05/16 06:10 Bedside Glucose 86 119 122 White Blood Count 7.0 Red Blood Count 3.19 L Hemoglobin 8.5 L Hematocrit 29.7 L Mean Corpuscular Volume 93.1 Mean Corpuscular Hemoglobin 26.6 L Mean Corpuscular Hemoglobin Concent 28.6 L Red Cell Distribution Width 23.1 H Platelet Count 329 Mean Platelet Volume 11.6 H Neutrophils % 81.1 H Lymphocytes % 9.6 L Monocytes % 8.9 Eosinophils % 0.0 Basophils % 0.0 Nucleated Red Blood Cells % 2.6 H Neutrophils # 5.7 Lymphocytes # 0.7 L Monocytes # 0.6 Eosinophils # 0.0 Basophils # 0.0 Nucleated Red Blood Cells # 0.2 H Sodium Level 137 Potassium Level 4.2 Chloride Level 96 L Carbon Dioxide Level 24 # Anion Gap 21 H Blood Urea Nitrogen 33 H Creatinine 2.23 H Glucose Level 78 Calcium Level 9.1 Phosphorus Level 5.5 H Albumin 3.6 Test 10/05/16 07:00 10/05/16 08:00 Blood Gas Specimen Source Blood arterial Arterial Blood Date Drawn 10/05/2016 9:30:15 AM Arterial Blood pH (Temp corrected) 7.292 *L Arterial Blood pCO2 (Temp correct) 48.9 H Arterial Blood pO2 (Temp corrected) 73.7 L Arterial Blood HCO3 23.1 Arterial Blood Base Excess -3.5 L Arterial Blood Oxygen Saturation 92.4 L Sebastien Test ACCEPTAB Arterial Blood Gas Puncture Site Right Radial Arterial Blood Carboxyhemoglobin 0.5 Arterial Blood Methemoglobin 0.5 Blood Gas A-a O2 Differential 82.7 H Oxyhemoglobin Percent 91.5 L Total Hemoglobin 10.1 L Blood Gas Temperature 37.0 Blood Gas Modality NASAL CANNULA FiO2 30.0 Blood Gas Critical Value Read Back L JUAN MIGUEL OLIVIER Blood Gas Notified Whom ANDRE Blood Gas Notified Time 10/05/2016 10:02:19 AM Bedside Glucose 96 Medications Medications Current Medications Apixaban (Eliquis) 2.5 mg BID PO Last administered on 10/05/16 08:59; Admin Dose 2.5 MG; Start 09/19/16 at 21:00; Status Future hold Ascorbic Acid (Vitamin C) 500 mg DAILY PO Last administered on 10/05/16 09:00; Admin Dose 500 MG; Start 09/20/16 at 09:00 Aspirin (Aspirin) 81 mg DAILY PO Last administered on 10/05/16 08:59; Admin Dose 81 MG; Start 09/20/16 at 09:00 Carvedilol (Coreg) 1.5625 mg BID PO Last administered on 09/22/16 20:47; Admin Dose 1.5625 MG; Start 09/19/16 at 21:00; Status Future Hold Digoxin (Digoxin) 0.125 mg Q2D@13 PO Last administered on 10/01/16 13:41; Admin Dose 0.125 MG; Start 09/21/16 at 13:00; Status Future hold Pantoprazole (Protonix Iv) 40 mg BID@06,18 IV Last administered on 10/05/16 05: 03; Admin Dose 40 MG; Start 09/20/16 at 06:00 Furosemide (Lasix) 20 mg DAILY@06 IV Last administered on 10/05/16 05:04; Admin Dose 20 MG; Start 09/20/16 at 06:00 Dextrose (D50w Syringe) 25 ml Q15M PRN IV DECREASED GLUCOSE; Start 09/21/16 at 14:00 IV Flush (NS 10 ml) 10 ml PRN PRN IV IV PROTOCOL; Start 09/22/16 at 18:30 Docusate Sodium (Colace Liquid Cup) 200 mg QHS NGT Last administered on 05:18; Admin Dose 200 MG; Start 09/24/16 at 21:00 Potassium Chloride (Potassium Chloride Pwd/Soln) 20 meq BID NGT Last administered on 10/05/16 09:00; Admin Dose 20 MEQ; Start 09/27/16 at 09:00 Lorazepam (Ativan) 1 mg Q4H PRN IV AGITATION/ANXIETY Last administered on 22:04; Admin Dose 1 MG; Start 09/27/16 at 17:30 Morphine Sulfate (morphine) 2 mg Q4H PRN IV PAIN Last administered on 10/01/16 00:05; Admin Dose 2 MG; Start 09/28/16 at 11:30 Povidone Iodine (Povidone-Iodine) 1 applic DAILY TOP Last administered on 09:00; Admin Dose 1 APPLIC; Start 09/29/16 at 09:00 Collagenase (Santyl) 1 applic DAILY TOP Last administered on 10/05/16 09:00; Admin Dose 1 APPLIC; Start 09/28/16 at 19:30 Hydralazine HCl (Apresoline) 10 mg Q8 PO Last administered on 10/04/16 05:16; Admin Dose 10 MG; Start 10/02/16 at 22:00 Diagnostic Test (Pha) (Accu-Chek) 1 ea 02 XX ; Start 10/03/16 at 02:00 Miscellaneous Information 1 ea NOTE XX ; Start 10/02/16 at 23:30 Glucose (Glutose) 15 gm Q15M PRN PO DECREASED GLUCOSE; Start 10/02/16 at 23:30 Glucose (Glutose) 22.5 gm Q15M PRN PO DECREASED GLUCOSE; Start 10/02/16 at 23:30 Dextrose (D50w Syringe) 25 ml Q15M PRN IV DECREASED GLUCOSE; Start 10/02/16 at 23:30 Dextrose (D50w Syringe) 50 ml Q15M PRN IV DECREASED GLUCOSE; Start 10/02/16 at 23:30 Glucagon (Glucagen) 1 mg Q15M PRN IM DECREASED GLUCOSE; Start 10/02/16 at 23:30 Glucose (Glutose) 15 gm Q15M PRN BUCCAL DECREASED GLUCOSE; Start 10/02/16 at 23: 30 Simethicone (Mylicon) 80 mg Q6H PRN PO DISTENSION/GAS/BLOATING Last administered on 10/03/16 17:18; Admin Dose 80 MG; Start 10/03/16 at 17:30 Polyethylene Glycol (Miralax) 8.5 gm DAILY PO Last administered on 10/05/16 08: 59; Admin Dose 8.5 GM; Start 10/04/16 at 09:00 Ondansetron HCl (Zofran Inj) 4 mg Q4H PRN IV NAUSEA AND/OR VOMITING Last administered on 10/04/16 14:36; Admin Dose 4 MG; Start 10/04/16 at 15:00 THERESA RIVERA October 05, 2016 10:48
--- NOTE | 2016-10-05 12:10 | CONS ---
Date/Time of Note Date/Time of Note DATE: 10/05/16 TIME: 12:07 Assessment/Plan Assessment/Plan Chief Complaint/Hosp Course IMPRESSION: 1. Hypotension/shock state, question cardiogenic versus septic unlikely as patient had a low EF with negative cardiac enzymes-Now off Levo with reasonable BP 2. Congestive heart failure, systolic, acute on chronic. 3. Coronary artery disease, status post coronary artery bypass graft surgery. 4. Chronic kidney disease on hemodialysis. 5. Coagulopathy secondary to Eliquis. 6. History of paroxysmal atrial fibrillation. 7. Sepsis-improving off pressors 8. Elevated digoxin level. 9. Anemia Recc: -Tele -Continue asa -Resume eliquis -HD for volume removal as tolerated only -Continue abx's and f/u cx data -REsume hydralazine as able after speech/swallow eval -PT Problems: Consultation Date/Type/Reason Admit Date/Time Sep 19, 2016 at 14:51 Initial Consult Date 09/23/2016 Type of Consultation: Cardiology Reason for Consultation cardiomyopathy/CHF Referring Provider: THERESA RIVERA Exam/Review of Systems Vital Signs Vitals Vital Signs Date Time Temp Pulse Resp B/P Pulse Ox O2 Delivery O2 Flow Rate FiO2 10/05/16 11:56 98.0 60 18 125/58 98 10/05/16 11:54 3.0 10/04/16 19:15 Nasal Cannula 10/04/16 12:26 50 Intake and Output 10/04/16 10/04/16 10/05/16 15:00 23:00 07:00 Intake Total 1000 ml Output Total 4000 ml Balance -3000 ml Exam Review of Systems: CONSTITUTIONAL: No fevers, chills. PULMONARY: No sob CARDIOVASCULAR: No chest pain/palpitations GASTROINTESTINAL: No nausea/vomiting. GENITOURINARY: No hematuria/dysuria. MUSCULOSKELETAL: No myagias/arthalgias. PSYCHIATRIC: No documented depression. NEUROLOGIC: lethargic Constitutional: alert Psych: no complaints Head: normocephalic ENMT: mucosa pink and moist Neck: jvd (9 cm water), supple Respiratory: diminished breath sounds (at bases/B) Cardiovascular: regular rate and rhythm Gastrointestinal: non-tender, soft Musculoskeletal: muscle tone (generalized weakness) Extremities: edema (trace/B) Results Result Diagram: 10/05/16 0610 10/05/16 06 Results 24 hrs Laboratory Tests Test 10/04/16 16:42 10/04/16 20:05 10/05/16 06:10 10/05/16 07:00 Bedside Glucose 119 122 White Blood Count 7.0 Red Blood Count 3.19 L Hemoglobin 8.5 L Hematocrit 29.7 L Mean Corpuscular Volume 93.1 Mean Corpuscular Hemoglobin 26.6 L Mean Corpuscular Hemoglobin Concent 28.6 L Red Cell Distribution Width 23.1 H Platelet Count 329 Mean Platelet Volume 11.6 H Neutrophils % 81.1 H Lymphocytes % 9.6 L Monocytes % 8.9 Eosinophils % 0.0 Basophils % 0.0 Nucleated Red Blood Cells % 2.6 H Neutrophils # 5.7 Lymphocytes # 0.7 L Monocytes # 0.6 Eosinophils # 0.0 Basophils # 0.0 Nucleated Red Blood Cells # 0.2 H Sodium Level 137 Potassium Level 4.2 Chloride Level 96 L Carbon Dioxide Level 24 # Anion Gap 21 H Blood Urea Nitrogen 33 H Creatinine 2.23 H Glucose Level 78 Calcium Level 9.1 Phosphorus Level 5.5 H Albumin 3.6 Blood Gas Specimen Source Blood arterial Arterial Blood Date Drawn 10/05/2016 9:30:15 AM Arterial Blood pH (Temp corrected) 7.292 *L Arterial Blood pCO2 (Temp correct) 48.9 H Arterial Blood pO2 (Temp corrected) 73.7 L Arterial Blood HCO3 23.1 Arterial Blood Base Excess -3.5 L Arterial Blood Oxygen Saturation 92.4 L Sebastien Test ACCEPTAB Arterial Blood Gas Puncture Site Right Radial Arterial Blood Carboxyhemoglobin 0.5 Arterial Blood Methemoglobin 0.5 Blood Gas A-a O2 Differential 82.7 H Oxyhemoglobin Percent 91.5 L Total Hemoglobin 10.1 L Blood Gas Temperature 37.0 Blood Gas Modality NASAL CANNULA FiO2 30.0 Blood Gas Critical Value Read Back L JUAN MIGUEL OLIVIER Blood Gas Notified Whom GRAYSOND Blood Gas Notified Time 10/05/2016 10:02:19 AM Test 10/05/16 08:00 10/05/16 11:55 Bedside Glucose 96 107 Medications Medications Current Medications Apixaban (Eliquis) 2.5 mg BID PO Last administered on 10/05/16t 08:59; Admin Dose 2.5 MG; Start 09/19/16 at 21:00; Status Future hold Ascorbic Acid (Vitamin C) 500 mg DAILY PO Last administered on 10/05/16 09:00; Admin Dose 500 MG; Start 09/20/16 at 09:00 Aspirin (Aspirin) 81 mg DAILY PO Last administered on 10/05/16 08:59; Admin Dose 81 MG; Start 09/20/16 at 09:00 Carvedilol (Coreg) 1.5625 mg BID PO Last administered on 09/22/16 20:47; Admin Dose 1.5625 MG; Start 09/19/16 at 21:00; Status Future Hold Digoxin (Digoxin) 0.125 mg Q2D@13 PO Last administered on 10/01/16 13:41; Admin Dose 0.125 MG; Start 09/21/16 at 13:00; Status Future hold Pantoprazole (Protonix Iv) 40 mg BID@06,18 IV Last administered on 10/05/16 05: 03; Admin Dose 40 MG; Start 09/20/16 at 06:00 Furosemide (Lasix) 20 mg DAILY@06 IV Last administered on 10/05/16 05:04; Admin Dose 20 MG; Start 09/20/16 at 06:00 Dextrose (D50w Syringe) 25 ml Q15M PRN IV DECREASED GLUCOSE; Start 09/21/16 at 14:00 IV Flush (NS 10 ml) 10 ml PRN PRN IV IV PROTOCOL; Start 09/22/16 at 18:30 Docusate Sodium (Colace Liquid Cup) 200 mg QHS NGT Last administered on 05:18; Admin Dose 200 MG; Start 09/24/16 at 21:00 Potassium Chloride (Potassium Chloride Pwd/Soln) 20 meq BID NGT Last administered on 10/05/16 09:00; Admin Dose 20 MEQ; Start 09/27/16 at 09:00 Lorazepam (Ativan) 1 mg Q4H PRN IV AGITATION/ANXIETY Last administered on 22:04; Admin Dose 1 MG; Start 09/27/16 at 17:30 Morphine Sulfate (morphine) 2 mg Q4H PRN IV PAIN Last administered on 10/01/16 00:05; Admin Dose 2 MG; Start 09/28/16 at 11:30 Collagenase (Santyl) 1 applic DAILY TOP Last administered on 10/05/16 09:00; Admin Dose 1 APPLIC; Start 09/28/16 at 19:30 Hydralazine HCl (Apresoline) 10 mg Q8 PO Last administered on 10/04/16 05:16; Admin Dose 10 MG; Start 10/02/16 at 22:00 Diagnostic Test (Pha) (Accu-Chek) 1 ea 02 XX ; Start 10/03/16 at 02:00 Miscellaneous Information 1 ea NOTE XX ; Start 10/02/16 at 23:30 Glucose (Glutose) 15 gm Q15M PRN PO DECREASED GLUCOSE; Start 10/02/16 at 23:30 Glucose (Glutose) 22.5 gm Q15M PRN PO DECREASED GLUCOSE; Start 10/02/16 at 23:30 Dextrose (D50w Syringe) 25 ml Q15M PRN IV DECREASED GLUCOSE; Start 10/02/16 at 23:30 Dextrose (D50w Syringe) 50 ml Q15M PRN IV DECREASED GLUCOSE; Start 10/02/16 at 23:30 Glucagon (Glucagen) 1 mg Q15M PRN IM DECREASED GLUCOSE; Start 10/02/16 at 23:30 Glucose (Glutose) 15 gm Q15M PRN BUCCAL DECREASED GLUCOSE; Start 10/02/16 at 23: 30 Simethicone (Mylicon) 80 mg Q6H PRN PO DISTENSION/GAS/BLOATING Last administered on 10/03/16 17:18; Admin Dose 80 MG; Start 10/03/16 at 17:30 Polyethylene Glycol (Miralax) 8.5 gm DAILY PO Last administered on 10/05/16 08: 59; Admin Dose 8.5 GM; Start 10/04/16 at 09:00 Ondansetron HCl (Zofran Inj) 4 mg Q4H PRN IV NAUSEA AND/OR VOMITING Last administered on 10/04/16 14:36; Admin Dose 4 MG; Start 10/04/16 at 15:00 Povidone Iodine (Povidone-Iodine) 1 applic DAILY TOP ; Start 10/05/16 at 12:30 POLI SAN October 05, 2016 12:10
--- NOTE | 2016-10-05 12:17 | CONS ---
Date/Time of Note Date/Time of Note DATE: 10/05/16 TIME: 12:15 Assessment/Plan Assessment/Plan Additional Assessment/Plan Assessment recommendations; next 1. Patient admitted for recurrent respiratory failure status post extubation no family has decided for DNR status. 2. Underlying cardiomyopathy. 3. Cardiac arrhythmia. 4. Previous history of coronary artery disease status post bypass surgery as well as cardiac arrhythmia, status post pacemaker placement. 5. End-stage renal disease, on hemodialysis. Continue current treatment. Prognosis remains poor. Consultation Date/Type/Reason Admit Date/Time Sep 19, 2016 at 14:51 Type of Consultation: Pulmonary Referring Provider: THERESA RIVERA 24 HR Interval Summary Free Text/Dictation Patient condition stable. Has been transferred out of ICU to telemetry unit. Denies any shortness of breath, chest pain. General exam; elderly male, awake alert currently in no distress. Exam/Review of Systems Vital Signs Vitals Vital Signs Date Time Temp Pulse Resp B/P Pulse Ox O2 Delivery O2 Flow Rate FiO2 10/05/16 11:56 98.0 60 18 125/58 98 10/05/16 11:54 3.0 10/04/16 19:15 Nasal Cannula 10/04/16 12:26 50 Intake and Output 10/04/16 10/04/16 10/05/16 15:00 23:00 07:00 Intake Total 1000 ml Output Total 4000 ml Balance -3000 ml Exam HEENT exam is; supple neck, positive JVD. No lymphadenopathy. Midline trachea. No thyromegaly. Patient has few remaining teeth. Pupils are small bilaterally. Chest examination; diminished but clear breath sounds. S1-S2 audible, no murmurs. There is a well-healed sternal scar. Abdomen examination; soft, non-distended. No organomegaly. Bowel sounds audible. Extremity examination; no peripheral edema. 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 Results Result Diagram: 10/05/16 0610 10/05/16 0610 Results 24 hrs Laboratory Tests Test 10/04/16 16:42 10/04/16 20:05 10/05/16 06:10 10/05/16 07:00 Bedside Glucose 119 122 White Blood Count 7.0 Red Blood Count 3.19 L Hemoglobin 8.5 L Hematocrit 29.7 L Mean Corpuscular Volume 93.1 Mean Corpuscular Hemoglobin 26.6 L Mean Corpuscular Hemoglobin Concent 28.6 L Red Cell Distribution Width 23.1 H Platelet Count 329 Mean Platelet Volume 11.6 H Neutrophils % 81.1 H Lymphocytes % 9.6 L Monocytes % 8.9 Eosinophils % 0.0 Basophils % 0.0 Nucleated Red Blood Cells % 2.6 H Neutrophils # 5.7 Lymphocytes # 0.7 L Monocytes # 0.6 Eosinophils # 0.0 Basophils # 0.0 Nucleated Red Blood Cells # 0.2 H Sodium Level 137 Potassium Level 4.2 Chloride Level 96 L Carbon Dioxide Level 24 # Anion Gap 21 H Blood Urea Nitrogen 33 H Creatinine 2.23 H Glucose Level 78 Calcium Level 9.1 Phosphorus Level 5.5 H Albumin 3.6 Blood Gas Specimen Source Blood arterial Arterial Blood Date Drawn 10/05/2016 9:30:15 AM Arterial Blood pH (Temp corrected) 7.292 *L Arterial Blood pCO2 (Temp correct) 48.9 H Arterial Blood pO2 (Temp corrected) 73.7 L Arterial Blood HCO3 23.1 Arterial Blood Base Excess -3.5 L Arterial Blood Oxygen Saturation 92.4 L Sebastien Test ACCEPTAB Arterial Blood Gas Puncture Site Right Radial Arterial Blood Carboxyhemoglobin 0.5 Arterial Blood Methemoglobin 0.5 Blood Gas A-a O2 Differential 82.7 H Oxyhemoglobin Percent 91.5 L Total Hemoglobin 10.1 L Blood Gas Temperature 37.0 Blood Gas Modality NASAL CANNULA FiO2 30.0 Blood Gas Critical Value Read Back L JUAN MIGUEL RN Blood Gas Notified Whom GRAYSOND Blood Gas Notified Time 10/05/2016 10:02:19 AM Test 10/05/16 08:00 10/05/16 11:55 Bedside Glucose 96 107 Medications Medications Current Medications Apixaban (Eliquis) 2.5 mg BID PO Last administered on 10/05/16 08:59; Admin Dose 2.5 MG; Start 09/19/16 at 21:00; Status Future hold Ascorbic Acid (Vitamin C) 500 mg DAILY PO Last administered on 10/05/16 09:00; Admin Dose 500 MG; Start 09/20/16 at 09:00 Aspirin (Aspirin) 81 mg DAILY PO Last administered on 10/05/16 08:59; Admin Dose 81 MG; Start 09/20/16 at 09:00 Carvedilol (Coreg) 1.5625 mg BID PO Last administered on 09/22/16 20:47; Admin Dose 1.5625 MG; Start 09/19/16 at 21:00; Status Future Hold Digoxin (Digoxin) 0.125 mg Q2D@13 PO Last administered on 10/01/16 13:41; Admin Dose 0.125 MG; Start 09/21/16 at 13:00; Status Future hold Pantoprazole (Protonix Iv) 40 mg BID@06,18 IV Last administered on 10/05/16 05: 03; Admin Dose 40 MG; Start 09/20/16 at 06:00 Furosemide (Lasix) 20 mg DAILY@06 IV Last administered on 10/05/16 05:04; Admin Dose 20 MG; Start 09/20/16 at 06:00 Dextrose (D50w Syringe) 25 ml Q15M PRN IV DECREASED GLUCOSE; Start 09/21/16 at 14:00 IV Flush (NS 10 ml) 10 ml PRN PRN IV IV PROTOCOL; Start 09/22/16 at 18:30 Docusate Sodium (Colace Liquid Cup) 200 mg QHS NGT Last administered on 05:18; Admin Dose 200 MG; Start 09/24/16 at 21:00 Potassium Chloride (Potassium Chloride Pwd/Soln) 20 meq BID NGT Last administered on 10/05/16 09:00; Admin Dose 20 MEQ; Start 09/27/16 at 09:00 Lorazepam (Ativan) 1 mg Q4H PRN IV AGITATION/ANXIETY Last administered on 22:04; Admin Dose 1 MG; Start 09/27/16 at 17:30 Morphine Sulfate (morphine) 2 mg Q4H PRN IV PAIN Last administered on 10/01/16 00:05; Admin Dose 2 MG; Start 09/28/16 at 11:30 Collagenase (Santyl) 1 applic DAILY TOP Last administered on 10/05/16 09:00; Admin Dose 1 APPLIC; Start 09/28/16 at 19:30 Hydralazine HCl (Apresoline) 10 mg Q8 PO Last administered on 10/04/16 05:16; Admin Dose 10 MG; Start 10/02/16 at 22:00 Diagnostic Test (Pha) (Accu-Chek) 1 ea 02 XX ; Start 10/03/16 at 02:00 Miscellaneous Information 1 ea NOTE XX ; Start 10/02/16 at 23:30 Glucose (Glutose) 15 gm Q15M PRN PO DECREASED GLUCOSE; Start 10/02/16 at 23:30 Glucose (Glutose) 22.5 gm Q15M PRN PO DECREASED GLUCOSE; Start 10/02/16 at 23:30 Dextrose (D50w Syringe) 25 ml Q15M PRN IV DECREASED GLUCOSE; Start 10/02/16 at 23:30 Dextrose (D50w Syringe) 50 ml Q15M PRN IV DECREASED GLUCOSE; Start 10/02/16 at 23:30 Glucagon (Glucagen) 1 mg Q15M PRN IM DECREASED GLUCOSE; Start 10/02/16 at 23:30 Glucose (Glutose) 15 gm Q15M PRN BUCCAL DECREASED GLUCOSE; Start 10/02/16 at 23: 30 Simethicone (Mylicon) 80 mg Q6H PRN PO DISTENSION/GAS/BLOATING Last administered on 10/03/16 17:18; Admin Dose 80 MG; Start 10/03/16 at 17:30 Polyethylene Glycol (Miralax) 8.5 gm DAILY PO Last administered on 10/05/16 08: 59; Admin Dose 8.5 GM; Start 10/04/16 at 09:00 Ondansetron HCl (Zofran Inj) 4 mg Q4H PRN IV NAUSEA AND/OR VOMITING Last administered on 10/04/16 14:36; Admin Dose 4 MG; Start 10/04/16 at 15:00 Povidone Iodine (Povidone-Iodine) 1 applic DAILY TOP ; Start 10/05/16 at 12:30 ADAMARIS RAMIREZ October 05, 2016 12:17
[2016-10-05] MEDS: DIGOXIN 0.125 MG TAB PO SCH (13:05)
[2016-10-05] MEDS ORDERED: ALBUMIN HUMAN 25% 100 ML IV ONE (15:00)
[2016-10-05] MEDS: DOCUSATE SODIUM 10 MG/ML (10ML CUP) NGT SCH (20:17)
[2016-10-06] VITALS (19 sets, daily range): BP systolic 97–118; BP diastolic 43–58; PULSE 60–63; RESP 15–20
[2016-10-06] MEDS: ACCU-CHEK XX SCH (02:00)
[2016-10-06 06:27] LABS: ADD SCAN DIFF NO
[2016-10-06 06:33] LABS: ABNORMAL IP MESSAGE 1; BASOPHILS % 0.1 % (0.0-2.0); EOSINOPHILS % 0.3 % (0.0-7.0); HEMATOCRIT 29.2 % (42.0-52.0); HEMOGLOBIN 8.7 g/dl (14.0-18.0); LYMPHOCYTES # 0.8 10^3/ul (0.8-2.9); MEAN CORPUSCULAR HGB CONC 29.8 g/dl (32.0-37.0); MEAN CORPUSCULAR VOLUME 90.7 fl (82.0-101.0); MEAN PLATELET VOLUME 10.3 fl (7.4-10.4); MONOCYTE # 0.7 10^3/ul (0.3-0.9); MONOCYTES % 9.9 % (0.0-11.0); NEUTROPHIL # 5.3 10^3/ul (1.6-7.5); NEUTROPHILS % 78.1 % (39.0-77.0); NUCLEATED RED BLOOD CELLS # 0.3 10^3/ul (0.0-0.0); PLATELET COUNT 326 10^3/UL (140-415); RED BLOOD COUNT 3.22 10^6/ul (4.70-6.10); RED CELL DISTRIBUTION WIDTH 22.6 % (11.5-14.5); WHITE BLOOD COUNT 6.8 10^3/ul (4.8-10.8)
[2016-10-06] MEDS: FUROSEMIDE 20 MG INJ IV SCH (06:41)
[2016-10-06] MEDS: PANTOPRAZOLE 40 MG INJ IV SCH ×2 (06:42→17:01)
[2016-10-06 07:05] LABS: ALBUMIN 3.8 g/dl (3.3-4.9)
[2016-10-06 07:06] LABS: POTASSIUM 4.7 mmol/L (3.5-5.1)
[2016-10-06 07:08] LABS: CREATININE 2.98 mg/dl (0.61-1.24)
[2016-10-06 07:09] LABS: CALCIUM 9.1 mg/dl (8.4-10.2); PHOSPHORUS 5.7 mg/dl (2.5-4.9)
[2016-10-06] MEDS: ASCORBIC ACID 500 MG TAB PO SCH (08:29)
[2016-10-06] MEDS: APIXABAN 5 MG TABLET PO SCH ×2 (08:29→21:00)
[2016-10-06] MEDS: POVIDONE IODINE 10% 28.4 GM OINT TOP SCH (08:29)
[2016-10-06] MEDS: ASPIRIN 81 MG TAB PO SCH (08:29)
[2016-10-06] MEDS: POLYETHYLENE GLYCOL 17 GM PACKET PO SCH (08:30)
[2016-10-06] MEDS: COLLAGENASE 30 GM TUBE TOP SCH (08:30)
[2016-10-06] MEDS: POTASSIUM CHLORIDE 20 MEQ POWDER FOR ORAL SOLN NGT SCH ×2 (08:30→21:00)
[2016-10-06] MEDS: INSULIN ASPART [NOVOLOG] 3 ML PEN SC SCH ×4 (08:34→21:00)
--- NOTE | 2016-10-06 09:17 | CONS ---
Date/Time of Note Date/Time of Note DATE: 10/06/16 TIME: 09:15 Assessment/Plan Assessment/Plan Additional Assessment/Plan 1. Hypotension/shock state, question cardiogenic versus septic unlikely as patient had a low EF with negative cardiac enzymes-Now off Levo with reasonable BP - BETTER now, BP improved - still overall poor prognosis 2. Congestive heart failure, systolic, acute on chronic- con't gentle diuresis - GD to remove fluid as tolerated 3. Coronary artery disease, status post coronary artery bypass graft surgery. 4. Chronic kidney disease on hemodialysis. 5. Coagulopathy secondary to Eliquis. 6. History of paroxysmal atrial fibrillation - now in sinus, not paced. SINUS. 7. Sepsis-improving off pressors -better now - better 8. Elevated digoxin level. 9. Anemia Consultation Date/Type/Reason Admit Date/Time Sep 19, 2016 at 14:51 Type of Consultation: Pulmonary Referring Provider: THERESA RIVERA 24 HR Interval Summary Free Text/Dictation NO acute change - BP stable - in sinus now - HD now ROS: No fever, no chills, no nausea, no vomiting, no diarrhea/constipation No recent weight changes No chest pain, no PND, no orthopnea No dizziness, blurred vision No thirst, no heat or cold intolerance (per nurse) Exam/Review of Systems Vital Signs Vitals Vital Signs Date Time Temp Pulse Resp B/P Pulse Ox O2 Delivery O2 Flow Rate FiO2 10/06/16 07:14 98.0 60 15 98/51 100 10/06/16 01:18 3.0 10/05/16 21:00 Nasal Cannula 10/04/16 12:26 50 Intake and Output 10/05/16 10/05/16 10/06/16 15:00 23:00 07:00 Intake Total 640 ml 120 ml Output Total 3300 ml Balance -2660 ml 120 ml Exam General: WN/WD/NAD, AOx 0 HEENT: Unicetric/atraumatic/EOMI (does no t follow commands) NECK: JVD elevated, no thyromegaly Lymph: no lymphadenopathy HEART: regular with no S3, II/ systolic murmur at apex LUNGS: Coarse sounds ABD: soft, NT, ND, +BS : Intact Neuro: non focal SKIN: chronic changes EXT: trace edema Results Result Diagram: 5/9/17 0601 5/9/17 0601 Results 24 hrs Laboratory Tests Test 10/05/16 11:55 10/05/16 17:25 10/05/16 20:14 10/06/16 06:01 Bedside Glucose 107 114 117 White Blood Count 6.8 Red Blood Count 3.22 L Hemoglobin 8.7 L Hematocrit 29.2 L Mean Corpuscular Volume 90.7 Mean Corpuscular Hemoglobin 27.0 L Mean Corpuscular Hemoglobin Concent 29.8 L Red Cell Distribution Width 22.6 H Platelet Count 326 Mean Platelet Volume 10.3 Neutrophils % 78.1 H Lymphocytes % 11.0 L Monocytes % 9.9 Eosinophils % 0.3 Basophils % 0.1 Nucleated Red Blood Cells % 4.0 H Neutrophils # 5.3 Lymphocytes # 0.8 Monocytes # 0.7 Eosinophils # 0.0 Basophils # 0.0 Nucleated Red Blood Cells # 0.3 H Sodium Level 136 Potassium Level 4.7 Chloride Level 95 L Carbon Dioxide Level 22 Anion Gap 24 H Blood Urea Nitrogen 52 H Creatinine 2.98 H Glucose Level 125 # Calcium Level 9.1 Phosphorus Level 5.7 H Albumin 3.8 Test 10/06/16 08:28 Bedside Glucose 183 Medications Medications Current Medications Apixaban (Eliquis) 2.5 mg BID PO Last administered on 10/06/16 08:29; Admin Dose 2.5 MG; Start 09/19/16 at 21:00; Status Future hold Ascorbic Acid (Vitamin C) 500 mg DAILY PO Last administered on 10/06/16 08:29; Admin Dose 500 MG; Start 09/20/16 at 09:00 Aspirin (Aspirin) 81 mg DAILY PO Last administered on 10/06/16 08:29; Admin Dose 81 MG; Start 09/20/16 at 09:00 Carvedilol (Coreg) 1.5625 mg BID PO Last administered on 09/22/16 20:47; Admin Dose 1.5625 MG; Start 09/19/16 at 21:00; Status Future Hold Digoxin (Digoxin) 0.125 mg Q2D@13 PO Last administered on 10/05/16 13:05; Admin Dose 0.125 MG; Start 09/21/16 at 13:00; Status Future hold Pantoprazole (Protonix Iv) 40 mg BID@,18 IV Last administered on 10/06/16 06: 42; Admin Dose 40 MG; Start 09/20/16 at 06:00 Furosemide (Lasix) 20 mg DAILY@06 IV Last administered on 10/06/16 06:41; Admin Dose 20 MG; Start 09/20/16 at 06:00 Dextrose (D50w Syringe) 25 ml Q15M PRN IV DECREASED GLUCOSE; Start 09/21/16 at 14:00 IV Flush (NS 10 ml) 10 ml PRN PRN IV IV PROTOCOL; Start 09/22/16 at 18:30 Docusate Sodium (Colace Liquid Cup) 200 mg QHS NGT Last administered on 20:17; Admin Dose 200 MG; Start 09/24/16 at 21:00 Potassium Chloride (Potassium Chloride Pwd/Soln) 20 meq BID NGT Last administered on 10/05/16 20:17; Admin Dose 20 MEQ; Start 09/27/16 at 09:00 Lorazepam (Ativan) 1 mg Q4H PRN IV AGITATION/ANXIETY Last administered on 22:04; Admin Dose 1 MG; Start 09/27/16 at 17:30 Morphine Sulfate (morphine) 2 mg Q4H PRN IV PAIN Last administered on 10/01/16 00:05; Admin Dose 2 MG; Start 09/28/16 at 11:30 Collagenase (Santyl) 1 applic DAILY TOP Last administered on 10/06/16 08:30; Admin Dose 1 APPLIC; Start 09/28/16 at 19:30 Hydralazine HCl (Apresoline) 10 mg Q8 PO Last administered on 10/06/16 06:42; Admin Dose 10 MG; Start 10/02/16 at 22:00 Diagnostic Test (Pha) (Accu-Chek) 1 ea 02 XX ; Start 10/03/16 at 02:00 Miscellaneous Information 1 ea NOTE XX ; Start 10/02/16 at 23:30 Glucose (Glutose) 15 gm Q15M PRN PO DECREASED GLUCOSE; Start 10/02/16 at 23:30 Glucose (Glutose) 22.5 gm Q15M PRN PO DECREASED GLUCOSE; Start 10/02/16 at 23:30 Dextrose (D50w Syringe) 25 ml Q15M PRN IV DECREASED GLUCOSE; Start 10/02/16 at 23:30 Dextrose (D50w Syringe) 50 ml Q15M PRN IV DECREASED GLUCOSE; Start 10/02/16 at 23:30 Glucagon (Glucagen) 1 mg Q15M PRN IM DECREASED GLUCOSE; Start 10/02/16 at 23:30 Glucose (Glutose) 15 gm Q15M PRN BUCCAL DECREASED GLUCOSE; Start 10/02/16 at 23: 30 Simethicone (Mylicon) 80 mg Q6H PRN PO DISTENSION/GAS/BLOATING Last administered on 10/03/16 17:18; Admin Dose 80 MG; Start 10/03/16 at 17:30 Polyethylene Glycol (Miralax) 8.5 gm DAILY PO Last administered on 10/06/16 08: 30; Admin Dose 8.5 GM; Start 10/04/16 at 09:00 Ondansetron HCl (Zofran Inj) 4 mg Q4H PRN IV NAUSEA AND/OR VOMITING Last administered on 10/04/16 14:36; Admin Dose 4 MG; Start 10/04/16 at 15:00 Povidone Iodine (Povidone-Iodine) 1 applic DAILY TOP Last administered on 08:29; Admin Dose 1 APPLIC; Start 10/05/16 at 12:30 DODIE OLMSTEAD MD October 06, 2016 09:17
--- NOTE | 2016-10-06 10:16 | PN ---
Date/Time of Note Date/Time of Note DATE: 10/06/16 TIME: 10:15 Assessment/Plan VTE Prophylaxis VTE Prophylaxis Intervention: other (Eliquis) Lines/Catheters IV Catheter Type (from Nrs): PICC Line Central line still needed: Yes Urinary Cath still in place: No Assessment/Plan Chief Complaint/Hosp Course Assessment/Plan 1. Recurrent VDRF 2/ #2 : now extubated - f/u pulm rec's, for HD today again 2. Endstage CHF with recurrent exacerbation : improved - monitor - Family does not want a trach / Patient high readmission risk . Recommend home with hospice at discharge, otherwise consider silva 3. Chronic kidney disease on hemodialysis 3 times a week limited by hypotension - if possible to change HD regimen to 4 days a week 4. S/p shock ?cardiogenic r/o septic now off pressor support 5. Diabetes mellitus type 2 - ISS 6. Paroxysmal atrial fibrillation, rate controlled - monitor, BB, eliquis 7. 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 8. Chronic liver cirrhosis with coagulopathy and mild hyperbilirubinemia and transaminitis likely associated with chronic CHF - monitor 9. Severe debility. 10. 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 11. LE cellulitis and ulcerations ? PVD: resolved 12. Chary UTI Prognosis : In the residential : guarded Problems: Subjective 24 Hr Interval Summary Free Text/Dictation Pt getting HD. No acute events overnight. Exam/Review of Systems Vital Signs Vitals Vital Signs Date Time Temp Pulse Resp B/P Pulse Ox O2 Delivery O2 Flow Rate FiO2 10/06/16 09:37 63 10/06/16 08:15 60 10/06/16 07:14 98.0 98/51 100 10/06/16 01:18 3.0 10/05/16 21:00 Nasal Cannula 10/04/16 12:26 50 Intake and Output 10/05/16 10/05/16 10/06/16 15:00 23:00 07:00 Intake Total 640 ml 120 ml Output Total 3300 ml Balance -2660 ml 120 ml Exam Constitutional: alert, frail, oriented, Mild resp distress Head: normocephalic Eyes: PERRL, icteric ENMT: No mucosa pink and moist Neck: jvd Respiratory: crackles/rales , diminished breath sounds Cardiovascular: murmurs/extra sounds, No regular rate and rhythm Gastrointestinal: bowel sounds, non-tender, soft Extremities: No edema Neurological: lethargic Skin: No rash or lesions Results Result Diagram: 10/06/16 0601 10/06/16 0601 Results 24 hrs Laboratory Tests Test 10/05/16 11:55 10/05/16 17:25 10/05/16 20:14 10/06/16 06:01 Bedside Glucose 107 114 117 White Blood Count 6.8 Red Blood Count 3.22 L Hemoglobin 8.7 L Hematocrit 29.2 L Mean Corpuscular Volume 90.7 Mean Corpuscular Hemoglobin 27.0 L Mean Corpuscular Hemoglobin Concent 29.8 L Red Cell Distribution Width 22.6 H Platelet Count 326 Mean Platelet Volume 10.3 Neutrophils % 78.1 H Lymphocytes % 11.0 L Monocytes % 9.9 Eosinophils % 0.3 Basophils % 0.1 Nucleated Red Blood Cells % 4.0 H Neutrophils # 5.3 Lymphocytes # 0.8 Monocytes # 0.7 Eosinophils # 0.0 Basophils # 0.0 Nucleated Red Blood Cells # 0.3 H Sodium Level 136 Potassium Level 4.7 Chloride Level 95 L Carbon Dioxide Level 22 Anion Gap 24 H Blood Urea Nitrogen 52 H Creatinine 2.98 H Glucose Level 125 # Calcium Level 9.1 Phosphorus Level 5.7 H Albumin 3.8 Test 10/06/16 08:28 Bedside Glucose 183 Medications Medications Current Medications Apixaban (Eliquis) 2.5 mg BID PO Last administered on 10/06/16 08:29; Admin Dose 2.5 MG; Start 09/19/16 at 21:00; Status Future hold Ascorbic Acid (Vitamin C) 500 mg DAILY PO Last administered on 10/06/16 08:29; Admin Dose 500 MG; Start 09/20/16 at 09:00 Aspirin (Aspirin) 81 mg DAILY PO Last administered on 10/06/16 08:29; Admin Dose 81 MG; Start 09/20/16 at 09:00 Carvedilol (Coreg) 1.5625 mg BID PO Last administered on 09/22/16 20:47; Admin Dose 1.5625 MG; Start 09/19/16 at 21:00; Status Future Hold Digoxin (Digoxin) 0.125 mg Q2D@13 PO Last administered on 10/05/16 13:05; Admin Dose 0.125 MG; Start 09/21/16 at 13:00; Status Future hold Pantoprazole (Protonix Iv) 40 mg BID@,18 IV Last administered on 10/06/16 06: 42; Admin Dose 40 MG; Start 09/20/16 at 06:00 Furosemide (Lasix) 20 mg DAILY@06 IV Last administered on 10/06/16 06:41; Admin Dose 20 MG; Start 09/20/16 at 06:00 Dextrose (D50w Syringe) 25 ml Q15M PRN IV DECREASED GLUCOSE; Start 09/21/16 at 14:00 IV Flush (NS 10 ml) 10 ml PRN PRN IV IV PROTOCOL; Start 09/22/16 at 18:30 Docusate Sodium (Colace Liquid Cup) 200 mg QHS NGT Last administered on 20:17; Admin Dose 200 MG; Start 09/24/16 at 21:00 Potassium Chloride (Potassium Chloride Pwd/Soln) 20 meq BID NGT Last administered on 10/05/16 20:17; Admin Dose 20 MEQ; Start 09/27/16 at 09:00 Lorazepam (Ativan) 1 mg Q4H PRN IV AGITATION/ANXIETY Last administered on 22:04; Admin Dose 1 MG; Start 09/27/16 at 17:30 Morphine Sulfate (morphine) 2 mg Q4H PRN IV PAIN Last administered on 10/01/16 00:05; Admin Dose 2 MG; Start 09/28/16 at 11:30 Collagenase (Santyl) 1 applic DAILY TOP Last administered on 10/06/16 08:30; Admin Dose 1 APPLIC; Start 09/28/16 at 19:30 Hydralazine HCl (Apresoline) 10 mg Q8 PO Last administered on 10/06/16 06:42; Admin Dose 10 MG; Start 10/02/16 at 22:00 Diagnostic Test (Pha) (Accu-Chek) 1 ea 02 XX ; Start 10/03/16 at 02:00 Miscellaneous Information 1 ea NOTE XX ; Start 10/02/16 at 23:30 Glucose (Glutose) 15 gm Q15M PRN PO DECREASED GLUCOSE; Start 10/02/16 at 23:30 Glucose (Glutose) 22.5 gm Q15M PRN PO DECREASED GLUCOSE; Start 10/02/16 at 23:30 Dextrose (D50w Syringe) 25 ml Q15M PRN IV DECREASED GLUCOSE; Start 10/02/16 at 23:30 Dextrose (D50w Syringe) 50 ml Q15M PRN IV DECREASED GLUCOSE; Start 10/02/16 at 23:30 Glucagon (Glucagen) 1 mg Q15M PRN IM DECREASED GLUCOSE; Start 10/02/16 at 23:30 Glucose (Glutose) 15 gm Q15M PRN BUCCAL DECREASED GLUCOSE; Start 10/02/16 at 23: 30 Simethicone (Mylicon) 80 mg Q6H PRN PO DISTENSION/GAS/BLOATING Last administered on 10/03/16 17:18; Admin Dose 80 MG; Start 10/03/16 at 17:30 Polyethylene Glycol (Miralax) 8.5 gm DAILY PO Last administered on 10/06/16 08: 30; Admin Dose 8.5 GM; Start 10/04/16 at 09:00 Ondansetron HCl (Zofran Inj) 4 mg Q4H PRN IV NAUSEA AND/OR VOMITING Last administered on 10/04/16 14:36; Admin Dose 4 MG; Start 10/04/16 at 15:00 Povidone Iodine (Povidone-Iodine) 1 applic DAILY TOP Last administered on 08:29; Admin Dose 1 APPLIC; Start 10/05/16 at 12:30 THERESA RIVERA October 06, 2016 10:16
--- NOTE | 2016-10-06 11:36 | CONS ---
Date/Time of Note Date/Time of Note DATE: 10/06/16 TIME: 11:34 Consult Date/Type/Reason Admit Date/Time Sep 19, 2016 at 14:51 Type of Consultation: Pulmonary Ordering Provider: THERESA RIVERA Objective Vital Signs Date Time Temp Pulse Resp B/P Pulse Ox O2 Delivery O2 Flow Rate FiO2 10/06/16 11:15 98.2 63 17 114/57 96 10/06/16 01:18 3.0 10/05/16 21:00 Nasal Cannula 10/04/16 12:26 50 Intake and Output 10/05/16 10/05/16 10/06/16 15:00 23:00 07:00 Intake Total 640 ml 120 ml Output Total 3300 ml Balance -2660 ml 120 ml Exam GENERAL: Elderly gentleman comfortable at rest extensive family at bedside VITAL SIGNS: per chart NECK: Supple. No JVD or lymphadenopathy. CARDIAC EXAM: S1, S2. No added sounds or murmurs. CHEST: Diminished air entry bilaterally labored ABDOMEN: Soft, nontender. No guarding or rebound. EXTREMITIES: No cyanosis, clubbing or edema. NEUROLOGIC: Generalized weakness. No focal deficits. Results/Medications Result Diagram: 10/06/16 0601 10/06/16 0601 Results 24 hrs Laboratory Tests Test 10/05/16 11:55 10/05/16 17:25 10/05/16 20:14 10/06/16 06:01 Bedside Glucose 107 114 117 White Blood Count 6.8 Red Blood Count 3.22 L Hemoglobin 8.7 L Hematocrit 29.2 L Mean Corpuscular Volume 90.7 Mean Corpuscular Hemoglobin 27.0 L Mean Corpuscular Hemoglobin Concent 29.8 L Red Cell Distribution Width 22.6 H Platelet Count 326 Mean Platelet Volume 10.3 Neutrophils % 78.1 H Lymphocytes % 11.0 L Monocytes % 9.9 Eosinophils % 0.3 Basophils % 0.1 Nucleated Red Blood Cells % 4.0 H Neutrophils # 5.3 Lymphocytes # 0.8 Monocytes # 0.7 Eosinophils # 0.0 Basophils # 0.0 Nucleated Red Blood Cells # 0.3 H Sodium Level 136 Potassium Level 4.7 Chloride Level 95 L Carbon Dioxide Level 22 Anion Gap 24 H Blood Urea Nitrogen 52 H Creatinine 2.98 H Glucose Level 125 # Calcium Level 9.1 Phosphorus Level 5.7 H Albumin 3.8 Test 5/9/17 08:28 Bedside Glucose 183 Medications Current Medications Apixaban (Eliquis) 2.5 mg BID PO Last administered on 10/06/16 08:29; Admin Dose 2.5 MG; Start 09/19/16 at 21:00; Status Future hold Ascorbic Acid (Vitamin C) 500 mg DAILY PO Last administered on 10/06/16 08:29; Admin Dose 500 MG; Start 09/20/16 at 09:00 Aspirin (Aspirin) 81 mg DAILY PO Last administered on 10/06/16 08:29; Admin Dose 81 MG; Start 09/20/16 at 09:00 Carvedilol (Coreg) 1.5625 mg BID PO Last administered on 09/22/16 20:47; Admin Dose 1.5625 MG; Start 09/19/16 at 21:00; Status Future Hold Digoxin (Digoxin) 0.125 mg Q2D@13 PO Last administered on 10/05/16 13:05; Admin Dose 0.125 MG; Start 09/21/16 at 13:00; Status Future hold Pantoprazole (Protonix Iv) 40 mg BID@06,18 IV Last administered on 10/06/16 06: 42; Admin Dose 40 MG; Start 09/20/16 at 06:00 Furosemide (Lasix) 20 mg DAILY@06 IV Last administered on 10/06/16 06:41; Admin Dose 20 MG; Start 09/20/16 at 06:00 Dextrose (D50w Syringe) 25 ml Q15M PRN IV DECREASED GLUCOSE; Start 09/21/16 at 14:00 IV Flush (NS 10 ml) 10 ml PRN PRN IV IV PROTOCOL; Start 09/22/16 at 18:30 Docusate Sodium (Colace Liquid Cup) 200 mg QHS NGT Last administered on 20:17; Admin Dose 200 MG; Start 09/24/16 at 21:00 Potassium Chloride (Potassium Chloride Pwd/Soln) 20 meq BID NGT Last administered on 10/05/16 20:17; Admin Dose 20 MEQ; Start 09/27/16 at 09:00 Lorazepam (Ativan) 1 mg Q4H PRN IV AGITATION/ANXIETY Last administered on 22:04; Admin Dose 1 MG; Start 09/27/16 at 17:30 Morphine Sulfate (morphine) 2 mg Q4H PRN IV PAIN Last administered on 10/01/16 00:05; Admin Dose 2 MG; Start 09/28/16 at 11:30 Collagenase (Santyl) 1 applic DAILY TOP Last administered on 10/06/16 08:30; Admin Dose 1 APPLIC; Start 09/28/16 at 19:30 Hydralazine HCl (Apresoline) 10 mg Q8 PO Last administered on 10/06/16 06:42; Admin Dose 10 MG; Start 10/02/16 at 22:00 Diagnostic Test (Pha) (Accu-Chek) 1 ea 02 XX ; Start 10/03/16 at 02:00 Miscellaneous Information 1 ea NOTE XX ; Start 10/02/16 at 23:30 Glucose (Glutose) 15 gm Q15M PRN PO DECREASED GLUCOSE; Start 10/02/16 at 23:30 Glucose (Glutose) 22.5 gm Q15M PRN PO DECREASED GLUCOSE; Start 10/02/16 at 23:30 Dextrose (D50w Syringe) 25 ml Q15M PRN IV DECREASED GLUCOSE; Start 10/02/16 at 23:30 Dextrose (D50w Syringe) 50 ml Q15M PRN IV DECREASED GLUCOSE; Start 10/02/16 at 23:30 Glucagon (Glucagen) 1 mg Q15M PRN IM DECREASED GLUCOSE; Start 10/02/16 at 23:30 Glucose (Glutose) 15 gm Q15M PRN BUCCAL DECREASED GLUCOSE; Start 10/02/16 at 23: 30 Simethicone (Mylicon) 80 mg Q6H PRN PO DISTENSION/GAS/BLOATING Last administered on 10/03/16 17:18; Admin Dose 80 MG; Start 10/03/16 at 17:30 Polyethylene Glycol (Miralax) 8.5 gm DAILY PO Last administered on 10/06/16 08: 30; Admin Dose 8.5 GM; Start 10/04/16 at 09:00 Ondansetron HCl (Zofran Inj) 4 mg Q4H PRN IV NAUSEA AND/OR VOMITING Last administered on 10/04/16 14:36; Admin Dose 4 MG; Start 10/04/16 at 15:00 Povidone Iodine (Povidone-Iodine) 1 applic DAILY TOP Last administered on t 08:29; Admin Dose 1 APPLIC; Start 10/05/16 at 12:30 Assessment/Plan Chief Complaint/Hosp Course Assessment 1. Status post hypoxemic respiratory failure, recurrent hypoxemia with respiratory failure 2. Aspiration pneumonia 3. Renal failure 4. Anemia of chronic disease. No acute bleeding. Plan 1. Increasing respiratory failure needs intermittent bipap 2. Physical therapy eval if more stable 3. Aspiration precautions. 4. Continue telemetry Disposition Continue current care Discussed with extensive family at bedside agree to continue DNR/DNI however wish to continue with aggressive treatment which is appropriate Palliative care / hospice. Problems: HERMAN CARDENAS MD, [facility] October 06, 2016 11:36
--- NOTE | 2016-10-06 11:45 | PN ---
DATE: 10/06/2016 There is one family member in the room. The patient has been moved to telemetry. According to the patient's son, he is improving. This son who is at the bedside made it very clear he is not in agre ement with other family members' opinion and they do not speak. Apparently, there are 2 family memb ers I have met with the past who are willing to sit down and speak once again and discuss ongoing le [place]cel[place] of care. I have asked that son who is available at this time to arrange that meeting. Other is sues in terms of acceptable quality of life, cultural issues, communication has been addressed with family members at my last family conference. Goals of care will be discussed once again and whether or not patient would want to continue with th is level of care in spite of the fact that he does not appear to be uncomfortable, so there is no pa in or physical finding or symptoms to indicate any escalation of his comfort medications. Psychosoc ial issues are difficult, as family members are having difficulty with agreement amongst themselves and there are active disagreements that I have noted, decision-making issues and who makes those dec isions during my last meeting with them. Therefore, there is not a true surrogate that we can rely upon to speak on behalf of this patient. His code status once again is DO NOT RESUSCITATE. I will continue to work with family members. A POLST form should be addressed before patient is discharged . Dictated By: MARLO WILL MD, LP/SHAHANA Conf#: [id number] DID#: [id number]
--- NOTE | 2016-10-06 14:32 | CONS ---
Date/Time of Note Date/Time of Note DATE: 10/06/16 TIME: 14:29 Assessment/Plan Assessment/Plan Chief Complaint/Hosp Course SUBJECTIVE: Awake, on nc, no fevers, nad. Family at bedside. INDWELLINGS: Right chest PermCath, Gan catheter, permanent pacemaker and right upper extremity PICC line.. PHYSICAL EXAMINATION: GENERAL: This is a fragile well-developed elderly man who is alert, in no distress. HEENT: Head atraumatic, normocephalic. Sclerae anicteric. Buccal mucosa dry. NECK: Supple, trachea midline. CHEST: Rise symmetrical. Breath sounds with crackles to bases. HEART: S1, S2. ABDOMEN: Soft, bowel sounds present. EXTREMITIES: With trace lower extremity edema and multiple scabs. ASSESSMENT: 1. Ongoing respiratory failure secondary to fluid overload 2. End-stage renal disease, hemodialysis dependent. 3. Status post urinary tract infection and pneumonia. 4. 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 5. Diabetes with diabetic foot ulcerations==> no active infection. PLAN: Off abx, continue present care, aspiration precautions, HD, pulmonary rec -s noted [facility] staff Problems: Consultation Date/Type/Reason Admit Date/Time Sep 19, 2016 at 14:51 Type of Consultation: ID Referring Provider: THERESA RIVERA Exam/Review of Systems Vital Signs Vitals Vital Signs Date Time Temp Pulse Resp B/P Pulse Ox O2 Delivery O2 Flow Rate FiO2 10/06/16 12:10 60 10/06/16 11:15 60 10/06/16 11:15 98.2 114/57 96 10/06/16 01:18 3.0 10/05/16 21:00 Nasal Cannula 10/04/16 12:26 50 Intake and Output 10/05/16 10/05/16 10/06/16 15:00 23:00 07:00 Intake Total 640 ml 120 ml Output Total 3300 ml Balance -2660 ml 120 ml Results Result Diagram: 10/06/16 0601 10/06/16 0601 Results 24 hrs Laboratory Tests Test 10/05/16 17:25 10/05/16 20:14 10/06/16 06:01 10/06/16 08:28 Bedside Glucose 114 117 183 White Blood Count 6.8 Red Blood Count 3.22 L Hemoglobin 8.7 L Hematocrit 29.2 L Mean Corpuscular Volume 90.7 Mean Corpuscular Hemoglobin 27.0 L Mean Corpuscular Hemoglobin Concent 29.8 L Red Cell Distribution Width 22.6 H Platelet Count 326 Mean Platelet Volume 10.3 Neutrophils % 78.1 H Lymphocytes % 11.0 L Monocytes % 9.9 Eosinophils % 0.3 Basophils % 0.1 Nucleated Red Blood Cells % 4.0 H Neutrophils # 5.3 Lymphocytes # 0.8 Monocytes # 0.7 Eosinophils # 0.0 Basophils # 0.0 Nucleated Red Blood Cells # 0.3 H Sodium Level 136 Potassium Level 4.7 Chloride Level 95 L Carbon Dioxide Level 22 Anion Gap 24 H Blood Urea Nitrogen 52 H Creatinine 2.98 H Glucose Level 125 # Calcium Level 9.1 Phosphorus Level 5.7 H Albumin 3.8 Test 10/06/16 11:52 Bedside Glucose 146 Medications Medications Current Medications Apixaban (Eliquis) 2.5 mg BID PO Last administered on 10/06/16 08:29; Admin Dose 2.5 MG; Start 09/19/16 at 21:00; Status Future hold Ascorbic Acid (Vitamin C) 500 mg DAILY PO Last administered on 10/06/16 08:29; Admin Dose 500 MG; Start 09/20/16 at 09:00 Aspirin (Aspirin) 81 mg DAILY PO Last administered on 10/06/16 08:29; Admin Dose 81 MG; Start 09/20/16 at 09:00 Carvedilol (Coreg) 1.5625 mg BID PO Last administered on 09/22/16 20:47; Admin Dose 1.5625 MG; Start 09/19/16 at 21:00; Status Future Hold Digoxin (Digoxin) 0.125 mg Q2D@13 PO Last administered on 10/05/16 13:05; Admin Dose 0.125 MG; Start 09/21/16 at 13:00; Status Future hold Pantoprazole (Protonix Iv) 40 mg BID@06,18 IV Last administered on 10/06/16 06: 42; Admin Dose 40 MG; Start 09/20/16 at 06:00 Furosemide (Lasix) 20 mg DAILY@06 IV Last administered on 10/06/16 06:41; Admin Dose 20 MG; Start 09/20/16 at 06:00 Dextrose (D50w Syringe) 25 ml Q15M PRN IV DECREASED GLUCOSE; Start 09/21/16 at 14:00 IV Flush (NS 10 ml) 10 ml PRN PRN IV IV PROTOCOL; Start 09/22/16 at 18:30 Docusate Sodium (Colace Liquid Cup) 200 mg QHS NGT Last administered on 20:17; Admin Dose 200 MG; Start 09/24/16 at 21:00 Potassium Chloride (Potassium Chloride Pwd/Soln) 20 meq BID NGT Last administered on 10/05/16 20:17; Admin Dose 20 MEQ; Start 09/27/16 at 09:00 Lorazepam (Ativan) 1 mg Q4H PRN IV AGITATION/ANXIETY Last administered on 22:04; Admin Dose 1 MG; Start 09/27/16 at 17:30 Morphine Sulfate (morphine) 2 mg Q4H PRN IV PAIN Last administered on 10/01/16 00:05; Admin Dose 2 MG; Start 09/28/16 at 11:30 Collagenase (Santyl) 1 applic DAILY TOP Last administered on 10/06/16 08:30; Admin Dose 1 APPLIC; Start 09/28/16 at 19:30 Hydralazine HCl (Apresoline) 10 mg Q8 PO Last administered on 10/06/16 06:42; Admin Dose 10 MG; Start 10/02/16 at 22:00 Diagnostic Test (Pha) (Accu-Chek) 1 ea 02 XX ; Start 10/03/16 at 02:00 Miscellaneous Information 1 ea NOTE XX ; Start 10/02/16 at 23:30 Glucose (Glutose) 15 gm Q15M PRN PO DECREASED GLUCOSE; Start 10/02/16 at 23:30 Glucose (Glutose) 22.5 gm Q15M PRN PO DECREASED GLUCOSE; Start 10/02/16 at 23:30 Dextrose (D50w Syringe) 25 ml Q15M PRN IV DECREASED GLUCOSE; Start 10/02/16 at 23:30 Dextrose (D50w Syringe) 50 ml Q15M PRN IV DECREASED GLUCOSE; Start 10/02/16 at 23:30 Glucagon (Glucagen) 1 mg Q15M PRN IM DECREASED GLUCOSE; Start 10/02/16 at 23:30 Glucose (Glutose) 15 gm Q15M PRN BUCCAL DECREASED GLUCOSE; Start 10/02/16 at 23: 30 Simethicone (Mylicon) 80 mg Q6H PRN PO DISTENSION/GAS/BLOATING Last administered on 10/03/16 17:18; Admin Dose 80 MG; Start 10/03/16 at 17:30 Polyethylene Glycol (Miralax) 8.5 gm DAILY PO Last administered on 10/06/16 08: 30; Admin Dose 8.5 GM; Start 10/04/16 at 09:00 Ondansetron HCl (Zofran Inj) 4 mg Q4H PRN IV NAUSEA AND/OR VOMITING Last administered on 10/04/16 14:36; Admin Dose 4 MG; Start 10/04/16 at 15:00 Povidone Iodine (Povidone-Iodine) 1 applic DAILY TOP Last administered on 08:29; Admin Dose 1 APPLIC; Start 10/05/16 at 12:30 ADA MICHELLE NP October 06, 2016 14:32
[2016-10-06] MEDS: DOCUSATE SODIUM 10 MG/ML (10ML CUP) NGT SCH (21:00)
--- NOTE | 2016-10-06 21:19 | CONS ---
Date/Time of Note Date/Time of Note DATE: 10/06/16 TIME: 21:18 Assessment/Plan Assessment/Plan Chief Complaint/Hosp Course IMPRESSION: 1. s/p hypoxic res failure off vent 2. Patient has a chronic systolic heart failure. 3. Chronic kidney disease requiring hemodialysis. 4. History of acute tubular necrosis. 5. Cardiomyopathy. 6. Anemia. 7. Neutropenia. 8. The patient has hypoalbuminemia. 9. Patient has ventilator dependent respiratory failure. 10. History of sepsis. 11. Septic shock.BETTER 12 hypokalemia better 13 HYPOPHOSPHATEMIA better plan continue hd for now d/w family hd MWF Problems: Consultation Date/Type/Reason Admit Date/Time Sep 19, 2016 at 14:51 Type of Consultation: renal Referring Provider: THERESA RIVERA 24 HR Interval Summary Subjective hx not possible: other (s/p hd,ongoing sob) Exam/Review of Systems Vital Signs Vitals Vital Signs Date Time Temp Pulse Resp B/P Pulse Ox O2 Delivery O2 Flow Rate FiO2 10/06/16 20:40 60 10/06/16 20:23 96.3 19 97/53 98 10/06/16 18:32 3.0 10/05/16 21:00 Nasal Cannula 10/04/16 12:26 50 Intake and Output 10/05/16 10/05/16 10/06/16 15:00 23:00 07:00 Intake Total 640 ml 120 ml Output Total 3300 ml Balance -2660 ml 120 ml Exam Respiratory: diminished breath sounds Cardiovascular: regular rate and rhythm Gastrointestinal: bowel sounds (+), soft Extremities: edema (+) Results Result Diagram: 10/06/16 0601 10/06/16 0601 Results 24 hrs Laboratory Tests Test 10/06/16 06:01 10/06/16 08:28 10/06/16 11:52 10/06/16 16:48 White Blood Count 6.8 Red Blood Count 3.22 L Hemoglobin 8.7 L Hematocrit 29.2 L Mean Corpuscular Volume 90.7 Mean Corpuscular Hemoglobin 27.0 L Mean Corpuscular Hemoglobin Concent 29.8 L Red Cell Distribution Width 22.6 H Platelet Count 326 Mean Platelet Volume 10.3 Neutrophils % 78.1 H Lymphocytes % 11.0 L Monocytes % 9.9 Eosinophils % 0.3 Basophils % 0.1 Nucleated Red Blood Cells % 4.0 H Neutrophils # 5.3 Lymphocytes # 0.8 Monocytes # 0.7 Eosinophils # 0.0 Basophils # 0.0 Nucleated Red Blood Cells # 0.3 H Sodium Level 136 Potassium Level 4.7 Chloride Level 95 L Carbon Dioxide Level 22 Anion Gap 24 H Blood Urea Nitrogen 52 H Creatinine 2.98 H Glucose Level 125 # Calcium Level 9.1 Phosphorus Level 5.7 H Albumin 3.8 Bedside Glucose 183 146 152 Test 10/06/16 20:58 Bedside Glucose 147 Medications Medications Current Medications Apixaban (Eliquis) 2.5 mg BID PO Last administered on 10/06/16 08:29; Admin Dose 2.5 MG; Start 09/19/16 at 21:00; Status Future hold Ascorbic Acid (Vitamin C) 500 mg DAILY PO Last administered on 10/06/16 08:29; Admin Dose 500 MG; Start 09/20/16 at 09:00 Aspirin (Aspirin) 81 mg DAILY PO Last administered on 10/06/16 08:29; Admin Dose 81 MG; Start 09/20/16 at 09:00 Carvedilol (Coreg) 1.5625 mg BID PO Last administered on 09/22/16 20:47; Admin Dose 1.5625 MG; Start 09/19/16 at 21:00; Status Future Hold Digoxin (Digoxin) 0.125 mg Q2D@13 PO Last administered on 10/05/16 13:05; Admin Dose 0.125 MG; Start 09/21/16 at 13:00; Status Future hold Pantoprazole (Protonix Iv) 40 mg BID@06,18 IV Last administered on 10/06/16 17: 01; Admin Dose 40 MG; Start 09/20/16 at 06:00 Furosemide (Lasix) 20 mg DAILY@06 IV Last administered on 10/06/16 06:41; Admin Dose 20 MG; Start 09/20/16 at 06:00 Dextrose (D50w Syringe) 25 ml Q15M PRN IV DECREASED GLUCOSE; Start 09/21/16 at 14:00 IV Flush (NS 10 ml) 10 ml PRN PRN IV IV PROTOCOL; Start 09/22/16 at 18:30 Docusate Sodium (Colace Liquid Cup) 200 mg QHS NGT Last administered on 20:17; Admin Dose 200 MG; Start 09/24/16 at 21:00 Potassium Chloride (Potassium Chloride Pwd/Soln) 20 meq BID NGT Last administered on 10/05/16 20:17; Admin Dose 20 MEQ; Start 09/27/16 at 09:00 Lorazepam (Ativan) 1 mg Q4H PRN IV AGITATION/ANXIETY Last administered on 22:04; Admin Dose 1 MG; Start 09/27/16 at 17:30 Morphine Sulfate (morphine) 2 mg Q4H PRN IV PAIN Last administered on 10/01/16 00:05; Admin Dose 2 MG; Start 09/28/16 at 11:30 Collagenase (Santyl) 1 applic DAILY TOP Last administered on 10/06/16 08:30; Admin Dose 1 APPLIC; Start 09/28/16 at 19:30 Hydralazine HCl (Apresoline) 10 mg Q8 PO Last administered on 10/06/16 06:42; Admin Dose 10 MG; Start 10/02/16 at 22:00 Diagnostic Test (Pha) (Accu-Chek) 1 ea 02 XX ; Start 10/03/16 at 02:00 Miscellaneous Information 1 ea NOTE XX ; Start 10/02/16 at 23:30 Glucose (Glutose) 15 gm Q15M PRN PO DECREASED GLUCOSE; Start 10/02/16 at 23:30 Glucose (Glutose) 22.5 gm Q15M PRN PO DECREASED GLUCOSE; Start 10/02/16 at 23:30 Dextrose (D50w Syringe) 25 ml Q15M PRN IV DECREASED GLUCOSE; Start 10/02/16 at 23:30 Dextrose (D50w Syringe) 50 ml Q15M PRN IV DECREASED GLUCOSE; Start 10/02/16 at 23:30 Glucagon (Glucagen) 1 mg Q15M PRN IM DECREASED GLUCOSE; Start 10/02/16 at 23:30 Glucose (Glutose) 15 gm Q15M PRN BUCCAL DECREASED GLUCOSE; Start 10/02/16 at 23: 30 Simethicone (Mylicon) 80 mg Q6H PRN PO DISTENSION/GAS/BLOATING Last administered on 10/03/16 17:18; Admin Dose 80 MG; Start 10/03/16 at 17:30 Polyethylene Glycol (Miralax) 8.5 gm DAILY PO Last administered on 10/06/16 08: 30; Admin Dose 8.5 GM; Start 10/04/16 at 09:00 Ondansetron HCl (Zofran Inj) 4 mg Q4H PRN IV NAUSEA AND/OR VOMITING Last administered on 10/04/16 14:36; Admin Dose 4 MG; Start 10/04/16 at 15:00 Povidone Iodine (Povidone-Iodine) 1 applic DAILY TOP Last administered on 08:29; Admin Dose 1 APPLIC; Start 10/05/16 at 12:30 YANIRA HATR MD October 06, 2016 21:19
[2016-10-06] MEDS: GUAIFENESIN 20 MG/ML 5ML CUP PO PRN (23:01)
[2016-10-07] VITALS (11 sets, daily range): BP systolic 95–127; BP diastolic 44–59; PULSE 60–68; RESP 19
[2016-10-07] MEDS: ACCU-CHEK XX SCH (02:00)
[2016-10-07] MEDS: PANTOPRAZOLE 40 MG INJ IV SCH ×2 (05:13→17:41)
[2016-10-07] MEDS: FUROSEMIDE 20 MG INJ IV SCH (05:14)
[2016-10-07 06:23] LABS: ADD SCAN DIFF NO
[2016-10-07 06:29] LABS: ABNORMAL IP MESSAGE 1; EOSINOPHILS # 0.1 10^3/ul (0.0-0.5); EOSINOPHILS % 1.6 % (0.0-7.0); HEMATOCRIT 28.5 % (42.0-52.0); HEMOGLOBIN 8.4 g/dl (14.0-18.0); LYMPHOCYTES # 0.8 10^3/ul (0.8-2.9); LYMPHOCYTES % 12.4 % (15.0-51.0); MEAN CORPUSCULAR HEMOGLOBIN 27.2 pg (29.0-33.0); MEAN CORPUSCULAR HGB CONC 29.5 g/dl (32.0-37.0); MEAN CORPUSCULAR VOLUME 92.2 fl (82.0-101.0); MEAN PLATELET VOLUME 11.1 fl (7.4-10.4); MONOCYTE # 0.6 10^3/ul (0.3-0.9); MONOCYTES % 9.5 % (0.0-11.0); NEUTROPHIL # 4.9 10^3/ul (1.6-7.5); NEUTROPHILS % 75.9 % (39.0-77.0); NUCLEATED RED BLOOD CELLS # 0.3 10^3/ul (0.0-0.0); PLATELET COUNT 299 10^3/UL (140-415); RED BLOOD COUNT 3.09 10^6/ul (4.70-6.10); RED CELL DISTRIBUTION WIDTH 22.5 % (11.5-14.5); WHITE BLOOD COUNT 6.4 10^3/ul (4.8-10.8)
[2016-10-07 06:51] LABS: CREATININE 2.14 mg/dl (0.61-1.24); POTASSIUM 3.7 mmol/L (3.5-5.1)
[2016-10-07] MEDS: INSULIN ASPART [NOVOLOG] 3 ML PEN SC SCH ×4 (07:47→20:19)
[2016-10-07] MEDS: APIXABAN 5 MG TABLET PO SCH ×2 (08:40→20:19)
[2016-10-07] MEDS: ASPIRIN 81 MG TAB PO SCH (08:40)
[2016-10-07] MEDS: POTASSIUM CHLORIDE 20 MEQ POWDER FOR ORAL SOLN NGT SCH ×2 (08:40→20:19)
[2016-10-07] MEDS: POVIDONE IODINE 10% 28.4 GM OINT TOP SCH (08:40)
[2016-10-07] MEDS: POLYETHYLENE GLYCOL 17 GM PACKET PO SCH (08:40)
[2016-10-07] MEDS: ASCORBIC ACID 500 MG TAB PO SCH (08:40)
[2016-10-07] MEDS: COLLAGENASE 30 GM TUBE TOP SCH (08:41)
--- NOTE | 2016-10-07 10:27 | PN ---
Date/Time of Note Date/Time of Note DATE: 10/07/16 TIME: 10:23 Assessment/Plan VTE Prophylaxis VTE Prophylaxis Intervention: other (Eliquis) Lines/Catheters IV Catheter Type (from Nrs): PICC Line Central line still needed: Yes Urinary Cath still in place: No Assessment/Plan Chief Complaint/Hosp Course Assessment/Plan 1. Recurrent VDRF 2/2 #2 : now extubated - f/u pulm rec's 2. Endstage CHF with recurrent exacerbation : improved - monitor - Family does not want a trach / Patient high readmission risk . Recommend SNF now, otherwise consider [facility] 3. Chronic kidney disease on hemodialysis 3 times a week limited by hypotension - if possible to change HD regimen to 4 days a week 4. S/p shock ?cardiogenic r/o septic now off pressor support 5. Diabetes mellitus type 2 - ISS 6. Paroxysmal atrial fibrillation, rate controlled - monitor, BB, eliquis 7. 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 8. Chronic liver cirrhosis with coagulopathy and mild hyperbilirubinemia and transaminitis likely associated with chronic CHF - monitor 9. Severe debility. 10. 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 11. LE cellulitis and ulcerations ? PVD: resolved 12. Chary UTI Prognosis : In the terminologist : guarded - looking for SNF placement now - refused Hospice Problems: Subjective 24 Hr Interval Summary Free Text/Dictation No acute events overnight. Refused Hospice (still wants dialysis). Exam/Review of Systems Vital Signs Vitals Vital Signs Date Time Temp Pulse Resp B/P Pulse Ox O2 Delivery O2 Flow Rate FiO2 10/07/16 10:05 Nasal Cannula 3.0 10/07/16 08:55 62 10/07/16 07:01 98.3 19 102/50 100 10/04/16 12:26 50 Intake and Output 10/06/16 10/06/16 10/07/16 15:00 23:00 07:00 Intake Total 300 ml 400 ml 120 ml Output Total 800 ml Balance -500 ml 400 ml 120 ml Exam Constitutional: alert, frail, oriented, Mild resp distress Head: normocephalic Eyes: PERRL, icteric ENMT: No mucosa pink and moist Neck: jvd Respiratory: crackles/rales , diminished breath sounds Cardiovascular: murmurs/extra sounds, No regular rate and rhythm Gastrointestinal: bowel sounds, non-tender, soft Extremities: No edema Neurological: lethargic Skin: No rash or lesions Results Result Diagram: 10/07/16 0556 10/07/16 0556 Results 24 hrs Laboratory Tests Test 10/06/16 11:52 10/06/16 16:48 10/06/16 20:58 10/07/16 05:56 Bedside Glucose 146 152 147 White Blood Count 6.4 Red Blood Count 3.09 L Hemoglobin 8.4 L Hematocrit 28.5 L Mean Corpuscular Volume 92.2 Mean Corpuscular Hemoglobin 27.2 L Mean Corpuscular Hemoglobin Concent 29.5 L Red Cell Distribution Width 22.5 H Platelet Count 299 Mean Platelet Volume 11.1 H Neutrophils % 75.9 Lymphocytes % 12.4 L Monocytes % 9.5 Eosinophils % 1.6 Basophils % 0.0 Nucleated Red Blood Cells % 5.0 H Neutrophils # 4.9 Lymphocytes # 0.8 Monocytes # 0.6 Eosinophils # 0.1 Basophils # 0.0 Nucleated Red Blood Cells # 0.3 H Sodium Level 141 Potassium Level 3.7 Chloride Level 103 Carbon Dioxide Level 28 Anion Gap 14 # Blood Urea Nitrogen 34 #H Creatinine 2.14 H Glucose Level 130 Calcium Level 9.0 Test 10/07/16 07:43 Bedside Glucose 141 Medications Medications Current Medications Apixaban (Eliquis) 2.5 mg BID PO Last administered on 10/07/16 08:40; Admin Dose 2.5 MG; Start 09/19/16 at 21:00; Status Future hold Ascorbic Acid (Vitamin C) 500 mg DAILY PO Last administered on 10/07/16 08:40 ; Admin Dose 500 MG; Start 09/20/16 at 09:00 Aspirin (Aspirin) 81 mg DAILY PO Last administered on 10/07/16 08:40; Admin Dose 81 MG; Start 09/20/16 at 09:00 Carvedilol (Coreg) 1.5625 mg BID PO Last administered on 09/22/16 20:47; Admin Dose 1.5625 MG; Start 09/19/16 at 21:00; Status Future Hold Digoxin (Digoxin) 0.125 mg Q2D@13 PO Last administered on 10/05/16 13:05; Admin Dose 0.125 MG; Start 09/21/16 at 13:00; Status Future hold Pantoprazole (Protonix Iv) 40 mg BID@,18 IV Last administered on 10/07/16 05 :13; Admin Dose 40 MG; Start 09/20/16 at 06:00 Furosemide (Lasix) 20 mg DAILY@06 IV Last administered on 10/07/16 05:14; Admin Dose 20 MG; Start 09/20/16 at 06:00 Dextrose (D50w Syringe) 25 ml Q15M PRN IV DECREASED GLUCOSE; Start 09/21/16 at 14:00 IV Flush (NS 10 ml) 10 ml PRN PRN IV IV PROTOCOL; Start 09/22/16 at 18:30 Docusate Sodium (Colace Liquid Cup) 200 mg QHS NGT Last administered on 21:00; Admin Dose 200 MG; Start 09/24/16 at 21:00 Potassium Chloride (Potassium Chloride Pwd/Soln) 20 meq BID NGT Last administered on 10/07/16 08:40; Admin Dose 20 MEQ; Start 09/27/16 at 09:00 Lorazepam (Ativan) 1 mg Q4H PRN IV AGITATION/ANXIETY Last administered on 22:04; Admin Dose 1 MG; Start 09/27/16 at 17:30 Morphine Sulfate (morphine) 2 mg Q4H PRN IV PAIN Last administered on 10/01/16 00:05; Admin Dose 2 MG; Start 09/28/16 at 11:30 Collagenase (Santyl) 1 applic DAILY TOP Last administered on 10/07/16 08:41; Admin Dose 1 APPLIC; Start 09/28/16 at 19:30 Hydralazine HCl (Apresoline) 10 mg Q8 PO Last administered on 10/06/16 21:17; Admin Dose 10 MG; Start 10/02/16 at 22:00 Diagnostic Test (Pha) (Accu-Chek) 1 ea 02 XX ; Start 10/03/16 at 02:00 Miscellaneous Information 1 ea NOTE XX ; Start 10/02/16 at 23:30 Glucose (Glutose) 15 gm Q15M PRN PO DECREASED GLUCOSE; Start 10/02/16 at 23:30 Glucose (Glutose) 22.5 gm Q15M PRN PO DECREASED GLUCOSE; Start 10/02/16 at 23:30 Dextrose (D50w Syringe) 25 ml Q15M PRN IV DECREASED GLUCOSE; Start 10/02/16 at 23:30 Dextrose (D50w Syringe) 50 ml Q15M PRN IV DECREASED GLUCOSE; Start 10/02/16 at 23:30 Glucagon (Glucagen) 1 mg Q15M PRN IM DECREASED GLUCOSE; Start 10/02/16 at 23:30 Glucose (Glutose) 15 gm Q15M PRN BUCCAL DECREASED GLUCOSE; Start 10/02/16 at 23: 30 Simethicone (Mylicon) 80 mg Q6H PRN PO DISTENSION/GAS/BLOATING Last administered on 10/03/16 17:18; Admin Dose 80 MG; Start 10/03/16 at 17:30 Polyethylene Glycol (Miralax) 8.5 gm DAILY PO Last administered on 10/07/16 08 :40; Admin Dose 8.5 GM; Start 10/04/16 at 09:00 Ondansetron HCl (Zofran Inj) 4 mg Q4H PRN IV NAUSEA AND/OR VOMITING Last administered on 10/04/16 14:36; Admin Dose 4 MG; Start 10/04/16 at 15:00 Povidone Iodine (Povidone-Iodine) 1 applic DAILY TOP Last administered on 08:40; Admin Dose 1 APPLIC; Start 10/05/16 at 12:30 Guaifenesin (Robitussin Liquid Cup) 200 mg Q4H PRN PO COUGH Last administered on 10/06/16 23:01; Admin Dose 200 MG; Start 10/06/16 at 22:30 THERESA RIVERA October 07, 2016 10:27
--- NOTE | 2016-10-07 11:28 | CONS ---
Date/Time of Note Date/Time of Note DATE: 10/07/16 TIME: 11:27 Consult Date/Type/Reason Admit Date/Time Sep 19, 2016 at 14:51 Type of Consultation: pulmonary Ordering Provider: THERESA RIVERA Subjective Patient somewhat more stable this morning Off noninvasive positive pressure ventilation Requesting ice chips Family at bedside Objective Vital Signs Date Time Temp Pulse Resp B/P Pulse Ox O2 Delivery O2 Flow Rate FiO2 10/07/16 10:05 Nasal Cannula 3.0 10/07/16 08:55 62 10/07/16 07:01 98.3 19 102/50 100 10/04/16 12:26 50 Intake and Output 10/06/16 10/06/16 10/07/16 15:00 23:00 07:00 Intake Total 300 ml 400 ml 120 ml Output Total 800 ml Balance -500 ml 400 ml 120 ml Exam GENERAL: Elderly gentleman comfortable at rest VITAL SIGNS: per chart NECK: Supple. No JVD or lymphadenopathy. CARDIAC EXAM: S1, S2. No added sounds or murmurs. CHEST: Diminished air entry bilaterally labored ABDOMEN: Soft, nontender. No guarding or rebound. EXTREMITIES: No cyanosis, clubbing or edema. NEUROLOGIC: Generalized weakness. No focal deficits. Results/Medications Result Diagram: 10/07/16 0556 10/07/16 0556 Results 24 hrs Laboratory Tests Test 10/06/16 11:52 10/06/16 16:48 10/06/16 20:58 10/07/16 05:56 Bedside Glucose 146 152 147 White Blood Count 6.4 Red Blood Count 3.09 L Hemoglobin 8.4 L Hematocrit 28.5 L Mean Corpuscular Volume 92.2 Mean Corpuscular Hemoglobin 27.2 L Mean Corpuscular Hemoglobin Concent 29.5 L Red Cell Distribution Width 22.5 H Platelet Count 299 Mean Platelet Volume 11.1 H Neutrophils % 75.9 Lymphocytes % 12.4 L Monocytes % 9.5 Eosinophils % 1.6 Basophils % 0.0 Nucleated Red Blood Cells % 5.0 H Neutrophils # 4.9 Lymphocytes # 0.8 Monocytes # 0.6 Eosinophils # 0.1 Basophils # 0.0 Nucleated Red Blood Cells # 0.3 H Sodium Level 141 Potassium Level 3.7 Chloride Level 103 Carbon Dioxide Level 28 Anion Gap 14 # Blood Urea Nitrogen 34 #H Creatinine 2.14 H Glucose Level 130 Calcium Level 9.0 Test 10/07/16 07:43 Bedside Glucose 141 Medications Current Medications Apixaban (Eliquis) 2.5 mg BID PO Last administered on 10/07/16 08:40; Admin Dose 2.5 MG; Start 09/19/16 at 21:00; Status Future hold Ascorbic Acid (Vitamin C) 500 mg DAILY PO Last administered on 10/07/16 08:40 ; Admin Dose 500 MG; Start 09/20/16 at 09:00 Aspirin (Aspirin) 81 mg DAILY PO Last administered on 10/07/16 08:40; Admin Dose 81 MG; Start 09/20/16 at 09:00 Carvedilol (Coreg) 1.5625 mg BID PO Last administered on 09/22/16 20:47; Admin Dose 1.5625 MG; Start 09/19/16 at 21:00; Status Future Hold Digoxin (Digoxin) 0.125 mg Q2D@13 PO Last administered on 10/05/16 13:05; Admin Dose 0.125 MG; Start 09/21/16 at 13:00; Status Future hold Pantoprazole (Protonix Iv) 40 mg BID@06,18 IV Last administered on 10/07/16 05 :13; Admin Dose 40 MG; Start 09/20/16 at 06:00 Furosemide (Lasix) 20 mg DAILY@06 IV Last administered on 10/07/16 05:14; Admin Dose 20 MG; Start 09/20/16 at 06:00 Dextrose (D50w Syringe) 25 ml Q15M PRN IV DECREASED GLUCOSE; Start 09/21/16 at 14:00 IV Flush (NS 10 ml) 10 ml PRN PRN IV IV PROTOCOL; Start 09/22/16 at 18:30 Docusate Sodium (Colace Liquid Cup) 200 mg QHS NGT Last administered on 21:00; Admin Dose 200 MG; Start 09/24/16 at 21:00 Potassium Chloride (Potassium Chloride Pwd/Soln) 20 meq BID NGT Last administered on 10/07/16 08:40; Admin Dose 20 MEQ; Start 09/27/16 at 09:00 Lorazepam (Ativan) 1 mg Q4H PRN IV AGITATION/ANXIETY Last administered on 22:04; Admin Dose 1 MG; Start 09/27/16 at 17:30 Morphine Sulfate (morphine) 2 mg Q4H PRN IV PAIN Last administered on 10/01/16 00:05; Admin Dose 2 MG; Start 09/28/16 at 11:30 Collagenase (Santyl) 1 applic DAILY TOP Last administered on 10/07/16 08:41; Admin Dose 1 APPLIC; Start 09/28/16 at 19:30 Hydralazine HCl (Apresoline) 10 mg Q8 PO Last administered on 10/06/16 21:17; Admin Dose 10 MG; Start 10/02/16 at 22:00 Diagnostic Test (Pha) (Accu-Chek) 1 ea 02 XX ; Start 10/03/16 at 02:00 Miscellaneous Information 1 ea NOTE XX ; Start 10/02/16 at 23:30 Glucose (Glutose) 15 gm Q15M PRN PO DECREASED GLUCOSE; Start 10/02/16 at 23:30 Glucose (Glutose) 22.5 gm Q15M PRN PO DECREASED GLUCOSE; Start 10/02/16 at 23:30 Dextrose (D50w Syringe) 25 ml Q15M PRN IV DECREASED GLUCOSE; Start 10/02/16 at 23:30 Dextrose (D50w Syringe) 50 ml Q15M PRN IV DECREASED GLUCOSE; Start 10/02/16 at 23:30 Glucagon (Glucagen) 1 mg Q15M PRN IM DECREASED GLUCOSE; Start 10/02/16 at 23:30 Glucose (Glutose) 15 gm Q15M PRN BUCCAL DECREASED GLUCOSE; Start 10/02/16 at 23: 30 Simethicone (Mylicon) 80 mg Q6H PRN PO DISTENSION/GAS/BLOATING Last administered on 10/03/16 17:18; Admin Dose 80 MG; Start 10/03/16 at 17:30 Polyethylene Glycol (Miralax) 8.5 gm DAILY PO Last administered on 10/07/16 08 :40; Admin Dose 8.5 GM; Start 10/04/16 at 09:00 Ondansetron HCl (Zofran Inj) 4 mg Q4H PRN IV NAUSEA AND/OR VOMITING Last administered on 10/04/16 14:36; Admin Dose 4 MG; Start 10/04/16 at 15:00 Povidone Iodine (Povidone-Iodine) 1 applic DAILY TOP Last administered on 08:40; Admin Dose 1 APPLIC; Start 10/05/16 at 12:30 Guaifenesin (Robitussin Liquid Cup) 200 mg Q4H PRN PO COUGH Last administered on 10/06/16 23:01; Admin Dose 200 MG; Start 10/06/16 at 22:30 Assessment/Plan Chief Complaint/Hosp Course Assessment 1. Status post hypoxemic respiratory failure, recurrent hypoxemia with respiratory failure secondary to volume overload 2. Aspiration pneumonia 3. Renal failure 4. Anemia of chronic disease. No acute bleeding. Plan 1. Continue nasal cannula 2. Physical therapy eval if more stable 3. Advance diet slowly 4. Continue telemetry Disposition Continue current care Discussed with primary care team Family declined hospice Patient not strong enough to be stable at home and given that he needs dialysis regular basis and recommended long-term facility Problems: HERMAN CARDENAS MD, [facility] October 07, 2016 11:28
[2016-10-07] MEDS: DIGOXIN 0.125 MG TAB PO SCH (13:50)
--- NOTE | 2016-10-07 13:57 | CONS ---
Date/Time of Note Date/Time of Note DATE: 10/07/16 TIME: 13:56 Assessment/Plan Assessment/Plan Chief Complaint/Hosp Course SUBJECTIVE: Awake, no fevers, nad. Family at bedside. INDWELLINGS: Right chest PermCath, Gan catheter, permanent pacemaker and right upper extremity PICC line.. PHYSICAL EXAMINATION: GENERAL: This is a fragile well-developed elderly man who is alert, in no distress. HEENT: Head atraumatic, normocephalic. Sclerae anicteric. Buccal mucosa dry. NECK: Supple, trachea midline. CHEST: Rise symmetrical. Breath sounds with crackles to bases. HEART: S1, S2. ABDOMEN: Soft, bowel sounds present. EXTREMITIES: With trace lower extremity edema and multiple scabs. ASSESSMENT: 1. Ongoing respiratory failure secondary to fluid overload 2. End-stage renal disease, hemodialysis dependent. 3. Status post urinary tract infection and pneumonia. 4. 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 5. Diabetes with diabetic foot ulcerations==> no active infection. PLAN: Off abx, continue present care, aspiration precautions, HD, pulmonary rec -s noted, SNF placement if family agrees [facility] staff Problems: Consultation Date/Type/Reason Admit Date/Time Sep 19, 2016 at 14:51 Type of Consultation: ID Referring Provider: THERESA RIVERA Exam/Review of Systems Vital Signs Vitals Vital Signs Date Time Temp Pulse Resp B/P Pulse Ox O2 Delivery O2 Flow Rate FiO2 10/07/16 12:51 68 10/07/16 12:40 3.0 10/07/16 11:38 98.1 19 127/56 100 10/07/16 10:05 Nasal Cannula 10/04/16 12:26 50 Intake and Output 10/06/16 10/06/16 10/07/16 15:00 23:00 07:00 Intake Total 300 ml 400 ml 120 ml Output Total 800 ml Balance -500 ml 400 ml 120 ml Results Result Diagram: 10/07/16 0556 10/07/16 0556 Results 24 hrs Laboratory Tests Test 10/06/16 16:48 10/06/16 20:58 10/07/16 05:56 10/07/16 07:43 Bedside Glucose 152 147 141 White Blood Count 6.4 Red Blood Count 3.09 L Hemoglobin 8.4 L Hematocrit 28.5 L Mean Corpuscular Volume 92.2 Mean Corpuscular Hemoglobin 27.2 L Mean Corpuscular Hemoglobin Concent 29.5 L Red Cell Distribution Width 22.5 H Platelet Count 299 Mean Platelet Volume 11.1 H Neutrophils % 75.9 Lymphocytes % 12.4 L Monocytes % 9.5 Eosinophils % 1.6 Basophils % 0.0 Nucleated Red Blood Cells % 5.0 H Neutrophils # 4.9 Lymphocytes # 0.8 Monocytes # 0.6 Eosinophils # 0.1 Basophils # 0.0 Nucleated Red Blood Cells # 0.3 H Sodium Level 141 Potassium Level 3.7 Chloride Level 103 Carbon Dioxide Level 28 Anion Gap 14 # Blood Urea Nitrogen 34 #H Creatinine 2.14 H Glucose Level 130 Calcium Level 9.0 Test 10/07/16 11:54 Bedside Glucose 151 Medications Medications Current Medications Apixaban (Eliquis) 2.5 mg BID PO Last administered on 10/07/16 08:40; Admin Dose 2.5 MG; Start 09/19/16 at 21:00; Status Future hold Ascorbic Acid (Vitamin C) 500 mg DAILY PO Last administered on 10/07/16 08:40 ; Admin Dose 500 MG; Start 09/20/16 at 09:00 Aspirin (Aspirin) 81 mg DAILY PO Last administered on 10/07/16 08:40; Admin Dose 81 MG; Start 09/20/16 at 09:00 Carvedilol (Coreg) 1.5625 mg BID PO Last administered on 09/22/16 20:47; Admin Dose 1.5625 MG; Start 09/19/16 at 21:00; Status Future Hold Digoxin (Digoxin) 0.125 mg Q2D@13 PO Last administered on 10/07/16 13:50; Admin Dose 0.125 MG; Start 09/21/16 at 13:00; Status Future hold Pantoprazole (Protonix Iv) 40 mg BID@06,18 IV Last administered on 10/07/16 05 :13; Admin Dose 40 MG; Start 09/20/16 at 06:00 Furosemide (Lasix) 20 mg DAILY@06 IV Last administered on 10/07/16 05:14; Admin Dose 20 MG; Start 09/20/16 at 06:00 Dextrose (D50w Syringe) 25 ml Q15M PRN IV DECREASED GLUCOSE; Start 09/21/16 at 14:00 IV Flush (NS 10 ml) 10 ml PRN PRN IV IV PROTOCOL; Start 09/22/16 at 18:30 Docusate Sodium (Colace Liquid Cup) 200 mg QHS NGT Last administered on 21:00; Admin Dose 200 MG; Start 09/24/16 at 21:00 Potassium Chloride (Potassium Chloride Pwd/Soln) 20 meq BID NGT Last administered on 10/07/16 08:40; Admin Dose 20 MEQ; Start 09/27/16 at 09:00 Lorazepam (Ativan) 1 mg Q4H PRN IV AGITATION/ANXIETY Last administered on 22:04; Admin Dose 1 MG; Start 09/27/16 at 17:30 Morphine Sulfate (morphine) 2 mg Q4H PRN IV PAIN Last administered on 10/01/16 00:05; Admin Dose 2 MG; Start 09/28/16 at 11:30 Collagenase (Santyl) 1 applic DAILY TOP Last administered on 10/07/16 08:41; Admin Dose 1 APPLIC; Start 09/28/16 at 19:30 Hydralazine HCl (Apresoline) 10 mg Q8 PO Last administered on 10/07/16 13:51; Admin Dose 10 MG; Start 10/02/16 at 22:00 Diagnostic Test (Pha) (Accu-Chek) 1 ea 02 XX ; Start 10/03/16 at 02:00 Miscellaneous Information 1 ea NOTE XX ; Start 10/02/16 at 23:30 Glucose (Glutose) 15 gm Q15M PRN PO DECREASED GLUCOSE; Start 10/02/16 at 23:30 Glucose (Glutose) 22.5 gm Q15M PRN PO DECREASED GLUCOSE; Start 10/02/16 at 23:30 Dextrose (D50w Syringe) 25 ml Q15M PRN IV DECREASED GLUCOSE; Start 10/02/16 at 23:30 Dextrose (D50w Syringe) 50 ml Q15M PRN IV DECREASED GLUCOSE; Start 10/02/16 at 23:30 Glucagon (Glucagen) 1 mg Q15M PRN IM DECREASED GLUCOSE; Start 10/02/16 at 23:30 Glucose (Glutose) 15 gm Q15M PRN BUCCAL DECREASED GLUCOSE; Start 10/02/16 at 23: 30 Simethicone (Mylicon) 80 mg Q6H PRN PO DISTENSION/GAS/BLOATING Last administered on 10/03/16 17:18; Admin Dose 80 MG; Start 10/03/16 at 17:30 Polyethylene Glycol (Miralax) 8.5 gm DAILY PO Last administered on 10/07/16 08 :40; Admin Dose 8.5 GM; Start 10/04/16 at 09:00 Ondansetron HCl (Zofran Inj) 4 mg Q4H PRN IV NAUSEA AND/OR VOMITING Last administered on 10/04/16 14:36; Admin Dose 4 MG; Start 10/04/16 at 15:00 Povidone Iodine (Povidone-Iodine) 1 applic DAILY TOP Last administered on 08:40; Admin Dose 1 APPLIC; Start 10/05/16 at 12:30 Guaifenesin (Robitussin Liquid Cup) 200 mg Q4H PRN PO COUGH Last administered on 10/06/16 23:01; Admin Dose 200 MG; Start 10/06/16 at 22:30 ADA MICHELLE NP October 07, 2016 13:57
--- NOTE | 2016-10-07 16:59 | CONS ---
Date/Time of Note Date/Time of Note DATE: 10/07/16 TIME: 16:58 Assessment/Plan Assessment/Plan Chief Complaint/Hosp Course IMPRESSION: 1. Hypotension/shock state, question cardiogenic versus septic unlikely as patient had a low EF with negative cardiac enzymes-Now off Levo with reasonable BP 2. Congestive heart failure, systolic, acute on chronic. 3. Coronary artery disease, status post coronary artery bypass graft surgery. 4. Chronic kidney disease on hemodialysis. 5. Coagulopathy secondary to Eliquis. 6. History of paroxysmal atrial fibrillation. 7. Sepsis-improving off pressors 8. Elevated digoxin level. 9. Anemia Recc: -Tele -Continue asa -Resume eliquis -Continue digoxin but check digoxin level -HD for volume removal as tolerated only -Continue abx's and f/u cx data -REsume hydralazine as able after speech/swallow eval -PT Problems: Consultation Date/Type/Reason Admit Date/Time Sep 19, 2016 at 14:51 Initial Consult Date 09/23/2016 Type of Consultation: Cardiology Reason for Consultation CHF Referring Provider: THERESA RIVERA Exam/Review of Systems Vital Signs Vitals Vital Signs Date Time Temp Pulse Resp B/P Pulse Ox O2 Delivery O2 Flow Rate FiO2 10/07/16 16:52 60 10/07/16 15:37 98.2 19 127/59 99 10/07/16 12:40 3.0 10/07/16 10:05 Nasal Cannula 10/04/16 12:26 50 Intake and Output 10/06/16 10/06/16 10/07/16 15:00 23:00 07:00 Intake Total 300 ml 400 ml 120 ml Output Total 800 ml Balance -500 ml 400 ml 120 ml Exam Review of Systems: CONSTITUTIONAL: No fevers, chills. PULMONARY: No sob CARDIOVASCULAR: No chest pain/palpitations GASTROINTESTINAL: No nausea/vomiting. GENITOURINARY: No hematuria/dysuria. MUSCULOSKELETAL: No myagias/arthalgias. PSYCHIATRIC: The patient denies depression. NEUROLOGIC: No weakness Constitutional: alert, oriented Psych: no complaints Head: normocephalic ENMT: mucosa pink and moist Neck: jvd, supple Respiratory: diminished breath sounds Cardiovascular: regular rate and rhythm Gastrointestinal: non-tender, soft Musculoskeletal: muscle tone (normal) Extremities: pitting pedal edema (trace/B) Neurological: lethargic Results Result Diagram: 10/07/16 0556 10/07/16 0556 Results 24 hrs Laboratory Tests Test 10/06/16 20:58 10/07/16 05:56 10/07/16 07:43 10/07/16 11:54 Bedside Glucose 147 141 151 White Blood Count 6.4 Red Blood Count 3.09 L Hemoglobin 8.4 L Hematocrit 28.5 L Mean Corpuscular Volume 92.2 Mean Corpuscular Hemoglobin 27.2 L Mean Corpuscular Hemoglobin Concent 29.5 L Red Cell Distribution Width 22.5 H Platelet Count 299 Mean Platelet Volume 11.1 H Neutrophils % 75.9 Lymphocytes % 12.4 L Monocytes % 9.5 Eosinophils % 1.6 Basophils % 0.0 Nucleated Red Blood Cells % 5.0 H Neutrophils # 4.9 Lymphocytes # 0.8 Monocytes # 0.6 Eosinophils # 0.1 Basophils # 0.0 Nucleated Red Blood Cells # 0.3 H Sodium Level 141 Potassium Level 3.7 Chloride Level 103 Carbon Dioxide Level 28 Anion Gap 14 # Blood Urea Nitrogen 34 #H Creatinine 2.14 H Glucose Level 130 Calcium Level 9.0 Medications Medications Current Medications Apixaban (Eliquis) 2.5 mg BID PO Last administered on 10/07/16 08:40; Admin Dose 2.5 MG; Start 09/19/16 at 21:00; Status Future hold Ascorbic Acid (Vitamin C) 500 mg DAILY PO Last administered on 10/07/16 08:40 ; Admin Dose 500 MG; Start 09/20/16 at 09:00 Aspirin (Aspirin) 81 mg DAILY PO Last administered on 10/07/16 08:40; Admin Dose 81 MG; Start 09/20/16 at 09:00 Carvedilol (Coreg) 1.5625 mg BID PO Last administered on 09/22/16 20:47; Admin Dose 1.5625 MG; Start 09/19/16 at 21:00; Status Future Hold Digoxin (Digoxin) 0.125 mg Q2D@13 PO Last administered on 10/07/16 13:50; Admin Dose 0.125 MG; Start 09/21/16 at 13:00; Status Future hold Pantoprazole (Protonix Iv) 40 mg BID@06,18 IV Last administered on 10/07/16 05 :13; Admin Dose 40 MG; Start 09/20/16 at 06:00 Furosemide (Lasix) 20 mg DAILY@06 IV Last administered on 10/07/16 05:14; Admin Dose 20 MG; Start 09/20/16 at 06:00 Dextrose (D50w Syringe) 25 ml Q15M PRN IV DECREASED GLUCOSE; Start 09/21/16 at 14:00 IV Flush (NS 10 ml) 10 ml PRN PRN IV IV PROTOCOL; Start 09/22/16 at 18:30 Docusate Sodium (Colace Liquid Cup) 200 mg QHS NGT Last administered on 21:00; Admin Dose 200 MG; Start 09/24/16 at 21:00 Potassium Chloride (Potassium Chloride Pwd/Soln) 20 meq BID NGT Last administered on 10/07/16 08:40; Admin Dose 20 MEQ; Start 09/27/16 at 09:00 Lorazepam (Ativan) 1 mg Q4H PRN IV AGITATION/ANXIETY Last administered on 22:04; Admin Dose 1 MG; Start 09/27/16 at 17:30 Morphine Sulfate (morphine) 2 mg Q4H PRN IV PAIN Last administered on 10/01/16 00:05; Admin Dose 2 MG; Start 09/28/16 at 11:30 Collagenase (Santyl) 1 applic DAILY TOP Last administered on 10/07/16 08:41; Admin Dose 1 APPLIC; Start 09/28/16 at 19:30 Hydralazine HCl (Apresoline) 10 mg Q8 PO Last administered on 10/07/16 13:51; Admin Dose 10 MG; Start 10/02/16 at 22:00 Diagnostic Test (Pha) (Accu-Chek) 1 ea 02 XX ; Start 10/03/16 at 02:00 Miscellaneous Information 1 ea NOTE XX ; Start 10/02/16 at 23:30 Glucose (Glutose) 15 gm Q15M PRN PO DECREASED GLUCOSE; Start 10/02/16 at 23:30 Glucose (Glutose) 22.5 gm Q15M PRN PO DECREASED GLUCOSE; Start 10/02/16 at 23:30 Dextrose (D50w Syringe) 25 ml Q15M PRN IV DECREASED GLUCOSE; Start 10/02/16 at 23:30 Dextrose (D50w Syringe) 50 ml Q15M PRN IV DECREASED GLUCOSE; Start 10/02/16 at 23:30 Glucagon (Glucagen) 1 mg Q15M PRN IM DECREASED GLUCOSE; Start 10/02/16 at 23:30 Glucose (Glutose) 15 gm Q15M PRN BUCCAL DECREASED GLUCOSE; Start 10/02/16 at 23: 30 Simethicone (Mylicon) 80 mg Q6H PRN PO DISTENSION/GAS/BLOATING Last administered on 10/03/16 17:18; Admin Dose 80 MG; Start 10/03/16 at 17:30 Polyethylene Glycol (Miralax) 8.5 gm DAILY PO Last administered on 10/07/16 08 :40; Admin Dose 8.5 GM; Start 10/04/16 at 09:00 Ondansetron HCl (Zofran Inj) 4 mg Q4H PRN IV NAUSEA AND/OR VOMITING Last administered on 10/04/16 14:36; Admin Dose 4 MG; Start 10/04/16 at 15:00 Povidone Iodine (Povidone-Iodine) 1 applic DAILY TOP Last administered on 08:40; Admin Dose 1 APPLIC; Start 10/05/16 at 12:30 Guaifenesin (Robitussin Liquid Cup) 200 mg Q4H PRN PO COUGH Last administered on 10/06/16 23:01; Admin Dose 200 MG; Start 10/06/16 at 22:30 POLI SAN October 07, 2016 16:59
[2016-10-07] MEDS: DOCUSATE SODIUM 10 MG/ML (10ML CUP) NGT SCH (20:20)
--- NOTE | 2016-10-07 23:51 | CONS ---
Date/Time of Note Date/Time of Note DATE: 10/07/16 TIME: 23:51 Assessment/Plan Assessment/Plan Chief Complaint/Hosp Course IMPRESSION: 1. s/p hypoxic res failure off vent 2. Patient has a chronic systolic heart failure. 3. Chronic kidney disease requiring hemodialysis. 4. History of acute tubular necrosis. 5. Cardiomyopathy. 6. Anemia. 7. Neutropenia. 8. The patient has hypoalbuminemia. 9. Patient has ventilator dependent respiratory failure. 10. History of sepsis. 11. Septic shock.BETTER 12 hypokalemia better 13 HYPOPHOSPHATEMIA better plan continue hd for now d/w family hd MWF Problems: Consultation Date/Type/Reason Admit Date/Time Sep 19, 2016 at 14:51 Type of Consultation: renal Referring Provider: THERESA RIVERA 24 HR Interval Summary Constitutional: requiring O2, No febrile Exam/Review of Systems Vital Signs Vitals Vital Signs Date Time Temp Pulse Resp B/P Pulse Ox O2 Delivery O2 Flow Rate FiO2 10/07/16 20:17 60 10/07/16 20:11 96.5 19 113/53 95 10/07/16 20:00 Nasal Cannula 3.0 10/04/16 12:26 50 Intake and Output 10/06/16 10/06/16 10/07/16 15:00 23:00 07:00 Intake Total 300 ml 400 ml 120 ml Output Total 800 ml Balance -500 ml 400 ml 120 ml Exam Neck: supple Respiratory: diminished breath sounds Cardiovascular: regular rate and rhythm Gastrointestinal: bowel sounds (+), soft Extremities: edema Results Result Diagram: 10/07/16 0556 10/07/16 0556 Results 24 hrs Laboratory Tests Test 10/07/16 05:56 10/07/16 07:43 10/07/16 11:54 10/07/16 17:37 White Blood Count 6.4 Red Blood Count 3.09 L Hemoglobin 8.4 L Hematocrit 28.5 L Mean Corpuscular Volume 92.2 Mean Corpuscular Hemoglobin 27.2 L Mean Corpuscular Hemoglobin Concent 29.5 L Red Cell Distribution Width 22.5 H Platelet Count 299 Mean Platelet Volume 11.1 H Neutrophils % 75.9 Lymphocytes % 12.4 L Monocytes % 9.5 Eosinophils % 1.6 Basophils % 0.0 Nucleated Red Blood Cells % 5.0 H Neutrophils # 4.9 Lymphocytes # 0.8 Monocytes # 0.6 Eosinophils # 0.1 Basophils # 0.0 Nucleated Red Blood Cells # 0.3 H Sodium Level 141 Potassium Level 3.7 Chloride Level 103 Carbon Dioxide Level 28 Anion Gap 14 # Blood Urea Nitrogen 34 #H Creatinine 2.14 H Glucose Level 130 Calcium Level 9.0 Digoxin Level 1.0 Bedside Glucose 141 151 132 Test 10/07/16 20:11 Bedside Glucose 156 Medications Medications Current Medications Apixaban (Eliquis) 2.5 mg BID PO Last administered on 10/07/16 20:19; Admin Dose 2.5 MG; Start 09/19/16 at 21:00; Status Future hold Ascorbic Acid (Vitamin C) 500 mg DAILY PO Last administered on 10/07/16 08:40 ; Admin Dose 500 MG; Start 09/20/16 at 09:00 Aspirin (Aspirin) 81 mg DAILY PO Last administered on 10/07/16 08:40; Admin Dose 81 MG; Start 09/20/16 at 09:00 Carvedilol (Coreg) 1.5625 mg BID PO Last administered on 09/22/16 20:47; Admin Dose 1.5625 MG; Start 09/19/16 at 21:00; Status Future Hold Digoxin (Digoxin) 0.125 mg Q2D@13 PO Last administered on 10/07/16 13:50; Admin Dose 0.125 MG; Start 09/21/16 at 13:00; Status Future hold Furosemide (Lasix) 20 mg DAILY@06 IV Last administered on 10/07/16 05:14; Admin Dose 20 MG; Start 09/20/16 at 06:00 Dextrose (D50w Syringe) 25 ml Q15M PRN IV DECREASED GLUCOSE; Start 09/21/16 at 14:00 IV Flush (NS 10 ml) 10 ml PRN PRN IV IV PROTOCOL; Start 09/22/16 at 18:30 Docusate Sodium (Colace Liquid Cup) 200 mg QHS NGT Last administered on 20:20; Admin Dose 200 MG; Start 09/24/16 at 21:00 Potassium Chloride (Potassium Chloride Pwd/Soln) 20 meq BID NGT Last administered on 10/07/16 20:19; Admin Dose 20 MEQ; Start 09/27/16 at 09:00 Lorazepam (Ativan) 1 mg Q4H PRN IV AGITATION/ANXIETY Last administered on 22:04; Admin Dose 1 MG; Start 09/27/16 at 17:30 Morphine Sulfate (morphine) 2 mg Q4H PRN IV PAIN Last administered on 10/01/16 00:05; Admin Dose 2 MG; Start 09/28/16 at 11:30 Collagenase (Santyl) 1 applic DAILY TOP Last administered on 10/07/16 08:41; Admin Dose 1 APPLIC; Start 09/28/16 at 19:30 Hydralazine HCl (Apresoline) 10 mg Q8 PO Last administered on 10/07/16 13:51; Admin Dose 10 MG; Start 10/02/16 at 22:00 Diagnostic Test (Pha) (Accu-Chek) 1 ea 02 XX ; Start 10/03/16 at 02:00 Miscellaneous Information 1 ea NOTE XX ; Start 10/02/16 at 23:30 Glucose (Glutose) 15 gm Q15M PRN PO DECREASED GLUCOSE; Start 10/02/16 at 23:30 Glucose (Glutose) 22.5 gm Q15M PRN PO DECREASED GLUCOSE; Start 10/02/16 at 23:30 Dextrose (D50w Syringe) 25 ml Q15M PRN IV DECREASED GLUCOSE; Start 10/02/16 at 23:30 Dextrose (D50w Syringe) 50 ml Q15M PRN IV DECREASED GLUCOSE; Start 10/02/16 at 23:30 Glucagon (Glucagen) 1 mg Q15M PRN IM DECREASED GLUCOSE; Start 10/02/16 at 23:30 Glucose (Glutose) 15 gm Q15M PRN BUCCAL DECREASED GLUCOSE; Start 10/02/16 at 23: 30 Simethicone (Mylicon) 80 mg Q6H PRN PO DISTENSION/GAS/BLOATING Last administered on 10/03/16 17:18; Admin Dose 80 MG; Start 10/03/16 at 17:30 Polyethylene Glycol (Miralax) 8.5 gm DAILY PO Last administered on 10/07/16 08 :40; Admin Dose 8.5 GM; Start 10/04/16 at 09:00 Ondansetron HCl (Zofran Inj) 4 mg Q4H PRN IV NAUSEA AND/OR VOMITING Last administered on 10/04/16 14:36; Admin Dose 4 MG; Start 10/04/16 at 15:00 Povidone Iodine (Povidone-Iodine) 1 applic DAILY TOP Last administered on 08:40; Admin Dose 1 APPLIC; Start 10/05/16 at 12:30 Guaifenesin (Robitussin Liquid Cup) 200 mg Q4H PRN PO COUGH Last administered on 10/06/16 23:01; Admin Dose 200 MG; Start 10/06/16 at 22:30 Pantoprazole (Protonix Tab) 40 mg BID@06,18 PO ; Start 10/08/16 at 06:00 YANIRA HART MD October 07, 2016 23:51
[2016-10-08] VITALS (20 sets, daily range): BP systolic 88–126; BP diastolic 45–73; PULSE 60–66; RESP 18–20
[2016-10-08] MEDS: ACCU-CHEK XX SCH (02:00)
[2016-10-08] MEDS: PANTOPRAZOLE (EC) 40 MG TAB PO SCH ×2 (05:17→17:38)
[2016-10-08] MEDS: FUROSEMIDE 20 MG INJ IV SCH (05:17)
[2016-10-08 07:03] LABS: ADD SCAN DIFF NO
[2016-10-08 07:14] LABS: ABNORMAL IP MESSAGE 1; BASOPHILS % 0.2 % (0.0-2.0); EOSINOPHILS # 0.1 10^3/ul (0.0-0.5); EOSINOPHILS % 1.8 % (0.0-7.0); HEMATOCRIT 29.4 % (42.0-52.0); HEMOGLOBIN 8.4 g/dl (14.0-18.0); LYMPHOCYTES # 0.8 10^3/ul (0.8-2.9); LYMPHOCYTES % 15.5 % (15.0-51.0); MEAN CORPUSCULAR HEMOGLOBIN 26.5 pg (29.0-33.0); MEAN CORPUSCULAR HGB CONC 28.6 g/dl (32.0-37.0); MEAN CORPUSCULAR VOLUME 92.7 fl (82.0-101.0); MEAN PLATELET VOLUME 11.2 fl (7.4-10.4); MONOCYTE # 0.6 10^3/ul (0.3-0.9); MONOCYTES % 12.5 % (0.0-11.0); NEUTROPHIL # 3.4 10^3/ul (1.6-7.5); NEUTROPHILS % 69.6 % (39.0-77.0); NUCLEATED RED BLOOD CELLS # 0.3 10^3/ul (0.0-0.0); NUCLEATED RED BLOOD CELLS% 6.7 /100WBC (0.0-0.0); PLATELET COUNT 299 10^3/UL (140-415); RED BLOOD COUNT 3.17 10^6/ul (4.70-6.10); RED CELL DISTRIBUTION WIDTH 22.7 % (11.5-14.5); WHITE BLOOD COUNT 4.9 10^3/ul (4.8-10.8)
[2016-10-08 07:31] LABS: CALCIUM 9.1 mg/dl (8.4-10.2); CREATININE 2.74 mg/dl (0.61-1.24); POTASSIUM 4.4 mmol/L (3.5-5.1)
[2016-10-08] MEDS: INSULIN ASPART [NOVOLOG] 3 ML PEN SC SCH ×4 (07:32→20:50)
[2016-10-08] MEDS: COLLAGENASE 30 GM TUBE TOP SCH (09:00)
[2016-10-08] MEDS: POTASSIUM CHLORIDE 20 MEQ POWDER FOR ORAL SOLN NGT SCH (10:05)
[2016-10-08] MEDS: POLYETHYLENE GLYCOL 17 GM PACKET PO SCH (10:05)
[2016-10-08] MEDS: POVIDONE IODINE 10% 28.4 GM OINT TOP SCH (10:06)
[2016-10-08] MEDS: ASPIRIN 81 MG TAB PO SCH (10:06)
[2016-10-08] MEDS: APIXABAN 5 MG TABLET PO SCH ×2 (10:06→20:56)
[2016-10-08] MEDS: ASCORBIC ACID 500 MG TAB PO SCH (10:06)
--- NOTE | 2016-10-08 10:37 | PDOCDIS ---
Discharge Instructions CONDITION Patient Condition: Stable HOME CARE INSTRUCTIONS: Special Diet: PUREE ACTIVITY: Activity Restrictions: Slowly Increase Activity FOLLOW UP/APPOINTMENTS Appointments Please take your medications as prescribed, see your doctor in the clinic in 1 week. THERESA RIVERA October 08, 2016 10:37
[2016-10-08] MEDS ORDERED: POLY17PO6 PO (10:38)
[2016-10-08] MEDS ORDERED: MYL80 PO (10:38)
--- NOTE | 2016-10-08 11:35 | DS ---
DATE OF ADMISSION: 09/19/2016 DATE OF DISCHARGE: 10/08/2016 HOSPITAL COURSE: This is an 81-year-old male originally admitted on 09/19/2016, being discharged ho nj on 10/08/2016. The patient initially came in with shortness of breath, was found to have end-sta ge CHF and initially was intubated and sent to the ICU because of shortness of breath. He was found with recurrent ventilator-dependent respiratory failure secondary to that. The patient was seen by multiple specialists during this hospital stay including renal team, cardiology team, pulmonary tea m, infectious disease and palliative care team. The patient also required pressor support one time because he was in a shock state with severe hypotension, cardiogenic versus septic. Eventually, the patient was able to be extubated and transferred out of ICU after many days. He worked with physic al therapy as well. He continued Eliquis for his atrial fibrillation as well. He continued medical management for his shortness of breath and advanced CHF. The patient's has a last known ejection f raction in July 2016 of 25%. He has a known history of coronary artery bypass grafting in the p ast. This was thought to be contributing to patient's advanced CHF. In any event, when he was felix sferred out the ICU, he was sent to the telemetry floor. He worked with physical therapy. His oxyg en requirements were weaned down to 3 liters nasal cannula, which is his baseline. He does use oxyg en at home. He was recommended to go to a [facility] facility given that he is still needs 2-p erson assistance, weak, but the family was adamant about not sending him there. He continued to hav e dialysis for his end-stage renal disease as well that was performed by the renal team. At one [facility], because of the patient's multiple comorbidities, there was recommendation for hospice care, but the family did listen to the hospice care team but decided they did not want to pursue these service s at this time. The patient, however, was made DNR/DNI. Because the patient is relatively stable today, his vital signs are stable, he is ambulating with as sistance, tolerating a p.o. diet and requiring 3 liters of oxygen, which is his minimal requirement at this point, he will be discharged home with home health nursing, oxygen and physical therapy toda y. He has a somewhat improved condition. DISCHARGE MEDICATIONS: He will be sent with: 1. MiraLax 8.5 grams daily. 2. Simethicone 80 mg q.6h. p.r.n. 3. Tylenol 650 q.4h. p.r.n. 4. Albuterol nebulizers q.6h. p.r.n. 5. Eliquis 2.5 mg b.i.d. 6. Vitamin C 500 mg daily. 7. Aspirin 81 mg daily. 8. Dulcolax 10 mg per rectal q.24h. p.r.n. 9. Coreg 1.5625 mg b.i.d. 10. Cranberry 425 mg b.i.d. 11. Digoxin 0.125 mg q.48h. 12. Colace 200 mg at bedtime. 13. Lasix 40 mg p.o. daily. 14. Robitussin p.r.n. 15. Hydralazine 10 mg p.o. q.8h. 16. Xopenex inhaled q.6h. p.r.n. 17. Milk of magnesia 30 mL q.24h. p.r.n. 18. Metformin 500 mg b.i.d. 19. Multivitamin 1 tab daily. 20. Nitroglycerin 0.4 mg sublingual q.5 minutes p.r.n. 21. Protonix 40 mg daily. 22. Fleet enema per rectal q.2 days p.r.n. 23. Carafate 1 gram q.i.d. 24. Zinc sulfate 220 mg daily. FOLLOWUP: He will need to follow up with primary care doctor in the clinic in the next 1 to 2 weeks . FINAL DIAGNOSES: 1. Shortness of breath secondary to end-stage congestive heart failure with recurrent ventilator-de pendent respiratory failure, status post intubation, now extubation. 2. Advanced congestive heart failure with ejection fraction 25%. 3. Type 2 diabetes 4. Status post cardiogenic and septic shock, now off pressor support, stable. 5. Chronic kidney disease, end-stage renal disease, on dialysis 3 times a week. 6. Paroxysmal atrial fibrillation, on Eliquis for anticoagulation. 7. 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 8. Chronic liver cirrhosis coagulopathy. 9. History of coronary artery disease and severe ischemic cardiomyopathy, status post coronary joseph ry bypass grafting and AICD placement in the past. 10. Severe debility. 11. History of lower extremity cellulitis and ulcerations, resolving. 12. Chary urinary tract infection, resolved. Time spent discharging patient 50 minutes. Dictated By: THERESA LEONARD/SHAHANA Conf#: [id number] DID#: [id number]
--- NOTE | 2016-10-08 12:37 | CONS ---
Date/Time of Note Date/Time of Note DATE: 10/08/16 TIME: 12:34 Consult Date/Type/Reason Admit Date/Time Sep 19, 2016 at 14:51 Type of Consultation: Pulmonary Ordering Provider: THERESA RIVERA Objective Vital Signs Date Time Temp Pulse Resp B/P Pulse Ox O2 Delivery O2 Flow Rate FiO2 10/08/16 12:00 64 10/08/16 11:49 3.0 10/08/16 11:28 98.2 19 121/57 98 10/08/16 11:17 Nasal Cannula 10/04/16 12:26 50 Intake and Output 10/07/16 10/07/16 10/08/16 15:00 23:00 07:00 Intake Total 500 ml 120 ml Balance 500 ml 120 ml Exam GENERAL: Frail elderly gentleman comfortable at rest VITAL SIGNS: per chart NECK: Supple. No JVD or lymphadenopathy. CARDIAC EXAM: S1, S2. No added sounds or murmurs. CHEST: Diminished air entry bilaterally with rales ABDOMEN: Soft, nontender. No guarding or rebound. EXTREMITIES: No cyanosis, clubbing or edema. NEUROLOGIC: Generalized weakness. No focal deficits. Results/Medications Result Diagram: 10/08/1620 10/08/16 0520 Results 24 hrs Laboratory Tests Test 10/07/16 17:37 10/07/16 20:11 10/08/16 05:20 10/08/16 07:32 Bedside Glucose 132 156 122 White Blood Count 4.9 # Red Blood Count 3.17 L Hemoglobin 8.4 L Hematocrit 29.4 L Mean Corpuscular Volume 92.7 Mean Corpuscular Hemoglobin 26.5 L Mean Corpuscular Hemoglobin Concent 28.6 L Red Cell Distribution Width 22.7 H Platelet Count 299 Mean Platelet Volume 11.2 H Neutrophils % 69.6 Lymphocytes % 15.5 Monocytes % 12.5 H Eosinophils % 1.8 Basophils % 0.2 Nucleated Red Blood Cells % 6.7 H Neutrophils # 3.4 Lymphocytes # 0.8 Monocytes # 0.6 Eosinophils # 0.1 Basophils # 0.0 Nucleated Red Blood Cells # 0.3 H Sodium Level 135 Potassium Level 4.4 Chloride Level 99 Carbon Dioxide Level 27 Anion Gap 13 Blood Urea Nitrogen 47 #H Creatinine 2.74 H Glucose Level 111 Calcium Level 9.1 Medications Current Medications Apixaban (Eliquis) 2.5 mg BID PO Last administered on 10/08/16 10:06; Admin Dose 2.5 MG; Start 09/19/16 at 21:00; Status Future hold Ascorbic Acid (Vitamin C) 500 mg DAILY PO Last administered on 10/08/16 10:06 ; Admin Dose 500 MG; Start 09/20/16 at 09:00 Aspirin (Aspirin) 81 mg DAILY PO Last administered on 10/08/16 10:06; Admin Dose 81 MG; Start 09/20/16 at 09:00 Carvedilol (Coreg) 1.5625 mg BID PO Last administered on 09/22/16 20:47; Admin Dose 1.5625 MG; Start 09/19/16 at 21:00; Status Future Hold Digoxin (Digoxin) 0.125 mg Q2D@13 PO Last administered on 10/07/16 13:50; Admin Dose 0.125 MG; Start 09/21/16 at 13:00; Status Future hold Furosemide (Lasix) 20 mg DAILY@06 IV Last administered on 10/08/16 05:17; Admin Dose 20 MG; Start 09/20/16 at 06:00 Dextrose (D50w Syringe) 25 ml Q15M PRN IV DECREASED GLUCOSE; Start 09/21/16 at 14:00 IV Flush (NS 10 ml) 10 ml PRN PRN IV IV PROTOCOL Last administered on 05:14; Admin Dose 10 ML; Start 09/22/16 at 18:30 Docusate Sodium (Colace Liquid Cup) 200 mg QHS NGT Last administered on 20:20; Admin Dose 200 MG; Start 09/24/16 at 21:00 Potassium Chloride (Potassium Chloride Pwd/Soln) 20 meq BID NGT Last administered on 10/08/16 10:05; Admin Dose 20 MEQ; Start 09/27/16 at 09:00 Lorazepam (Ativan) 1 mg Q4H PRN IV AGITATION/ANXIETY Last administered on 22:04; Admin Dose 1 MG; Start 09/27/16 at 17:30 Morphine Sulfate (morphine) 2 mg Q4H PRN IV PAIN Last administered on 10/01/16 00:05; Admin Dose 2 MG; Start 09/28/16 at 11:30 Collagenase (Santyl) 1 applic DAILY TOP Last administered on 10/08/16 09:00; Admin Dose 1 APPLIC; Start 09/28/16 at 19:30 Hydralazine HCl (Apresoline) 10 mg Q8 PO Last administered on 10/07/16 13:51; Admin Dose 10 MG; Start 10/02/16 at 22:00 Diagnostic Test (Pha) (Accu-Chek) 1 ea 02 XX ; Start 10/03/16 at 02:00 Miscellaneous Information 1 ea NOTE XX ; Start 10/02/16 at 23:30 Glucose (Glutose) 15 gm Q15M PRN PO DECREASED GLUCOSE; Start 10/02/16 at 23:30 Glucose (Glutose) 22.5 gm Q15M PRN PO DECREASED GLUCOSE; Start 10/02/16 at 23:30 Dextrose (D50w Syringe) 25 ml Q15M PRN IV DECREASED GLUCOSE; Start 10/02/16 at 23:30 Dextrose (D50w Syringe) 50 ml Q15M PRN IV DECREASED GLUCOSE; Start 10/02/16 at 23:30 Glucagon (Glucagen) 1 mg Q15M PRN IM DECREASED GLUCOSE; Start 10/02/16 at 23:30 Glucose (Glutose) 15 gm Q15M PRN BUCCAL DECREASED GLUCOSE; Start 10/02/16 at 23: 30 Simethicone (Mylicon) 80 mg Q6H PRN PO DISTENSION/GAS/BLOATING Last administered on 10/03/16 17:18; Admin Dose 80 MG; Start 10/03/16 at 17:30 Polyethylene Glycol (Miralax) 8.5 gm DAILY PO Last administered on 10/08/16 10 :05; Admin Dose 8.5 GM; Start 10/04/16 at 09:00 Ondansetron HCl (Zofran Inj) 4 mg Q4H PRN IV NAUSEA AND/OR VOMITING Last administered on 10/04/16 14:36; Admin Dose 4 MG; Start 10/04/16 at 15:00 Povidone Iodine (Povidone-Iodine) 1 applic DAILY TOP Last administered on 10:06; Admin Dose 1 APPLIC; Start 10/05/16 at 12:30 Guaifenesin (Robitussin Liquid Cup) 200 mg Q4H PRN PO COUGH Last administered on 10/06/16 23:01; Admin Dose 200 MG; Start 10/06/16 at 22:30 Pantoprazole (Protonix Tab) 40 mg BID@06,18 PO Last administered on 10/08/16 05:17; Admin Dose 40 MG; Start 10/08/16 at 06:00 Assessment/Plan Chief Complaint/Hosp Course Assessment 1. Status post hypoxemic respiratory failure, recurrent hypoxemia with respiratory failure secondary to volume overload 2. Aspiration pneumonia 3. Renal failure on hemodialysis discharge planning 4. Anemia of chronic disease. No acute bleeding. Plan 1. Continue nasal cannula 2. Physical therapy eval if more stable 3. Advance diet slowly Disposition Continue current care Patient significant risk of readmission given family's reluctance to place on palliative care overall prognosis is very guarded. Problems: HERMAN CARDENAS MD, [facility] October 08, 2016 12:37
[2016-10-08] MEDS: ALBUMIN HUMAN 25% 100 ML IV SCH ×2 (13:04→13:16)
--- NOTE | 2016-10-08 13:44 | CONS ---
Date/Time of Note Date/Time of Note DATE: 10/08/16 TIME: 13:42 Assessment/Plan Assessment/Plan Chief Complaint/Hosp Course SUBJECTIVE: No acute events, no fevers, looks comfortable. INDWELLINGS: Right chest PermCath, Gan catheter, permanent pacemaker and right upper extremity PICC line.. PHYSICAL EXAMINATION: GENERAL: This is a fragile well-developed elderly man who is alert, in no distress. HEENT: Head atraumatic, normocephalic. Sclerae anicteric. Buccal mucosa dry. NECK: Supple, trachea midline. CHEST: Rise symmetrical. Breath sounds with crackles to bases. HEART: S1, S2. ABDOMEN: Soft, bowel sounds present. EXTREMITIES: With trace lower extremity edema and multiple scabs. ASSESSMENT: 1. Ongoing respiratory failure secondary to fluid overload 2. End-stage renal disease, hemodialysis dependent. 3. Status post urinary tract infection and pneumonia. 4. 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 5. Diabetes with diabetic foot ulcerations==> no active infection. PLAN: Off abx, pt is high risk for aspiration, continue anti-aspiration measures, HD per renal DW staff Problems: Consultation Date/Type/Reason Admit Date/Time Sep 19, 2016 at 14:51 Type of Consultation: ID Referring Provider: THERESA RIVERA Exam/Review of Systems Vital Signs Vitals Vital Signs Date Time Temp Pulse Resp B/P Pulse Ox O2 Delivery O2 Flow Rate FiO2 10/08/16 12:50 60 10/08/16 12:35 20 10/08/16 11:49 3.0 10/08/16 11:28 98.2 121/57 98 10/08/16 11:17 Nasal Cannula 10/04/16 12:26 50 Intake and Output 10/07/16 10/07/16 10/08/16 15:00 23:00 07:00 Intake Total 500 ml 120 ml Balance 500 ml 120 ml Results Result Diagram: 10/08/1651910/08/16 05 Results 24 hrs Laboratory Tests Test 10/07/16 17:37 10/07/16 20:11 10/08/16 05:20 10/08/16 07:32 Bedside Glucose 132 156 122 White Blood Count 4.9 # Red Blood Count 3.17 L Hemoglobin 8.4 L Hematocrit 29.4 L Mean Corpuscular Volume 92.7 Mean Corpuscular Hemoglobin 26.5 L Mean Corpuscular Hemoglobin Concent 28.6 L Red Cell Distribution Width 22.7 H Platelet Count 299 Mean Platelet Volume 11.2 H Neutrophils % 69.6 Lymphocytes % 15.5 Monocytes % 12.5 H Eosinophils % 1.8 Basophils % 0.2 Nucleated Red Blood Cells % 6.7 H Neutrophils # 3.4 Lymphocytes # 0.8 Monocytes # 0.6 Eosinophils # 0.1 Basophils # 0.0 Nucleated Red Blood Cells # 0.3 H Sodium Level 135 Potassium Level 4.4 Chloride Level 99 Carbon Dioxide Level 27 Anion Gap 13 Blood Urea Nitrogen 47 #H Creatinine 2.74 H Glucose Level 111 Calcium Level 9.1 Test 10/08/16 12:21 Bedside Glucose 131 Medications Medications Current Medications Apixaban (Eliquis) 2.5 mg BID PO Last administered on 10/08/16 10:06; Admin Dose 2.5 MG; Start 09/19/16 at 21:00; Status Future hold Ascorbic Acid (Vitamin C) 500 mg DAILY PO Last administered on 10/08/16 10:06 ; Admin Dose 500 MG; Start 09/20/16 at 09:00 Aspirin (Aspirin) 81 mg DAILY PO Last administered on 10/08/16 10:06; Admin Dose 81 MG; Start 09/20/16 at 09:00 Carvedilol (Coreg) 1.5625 mg BID PO Last administered on 09/22/16 20:47; Admin Dose 1.5625 MG; Start 09/19/16 at 21:00; Status Future Hold Digoxin (Digoxin) 0.125 mg Q2D@13 PO Last administered on 10/07/16 13:50; Admin Dose 0.125 MG; Start 09/21/16 at 13:00; Status Future hold Furosemide (Lasix) 20 mg DAILY@06 IV Last administered on 10/08/16 05:17; Admin Dose 20 MG; Start 09/20/16 at 06:00 Dextrose (D50w Syringe) 25 ml Q15M PRN IV DECREASED GLUCOSE; Start 09/21/16 at 14:00 IV Flush (NS 10 ml) 10 ml PRN PRN IV IV PROTOCOL Last administered on 05:14; Admin Dose 10 ML; Start 09/22/16 at 18:30 Docusate Sodium (Colace Liquid Cup) 200 mg QHS NGT Last administered on 20:20; Admin Dose 200 MG; Start 09/24/16 at 21:00 Potassium Chloride (Potassium Chloride Pwd/Soln) 20 meq BID NGT Last administered on 10/08/16 10:05; Admin Dose 20 MEQ; Start 09/27/16 at 09:00 Lorazepam (Ativan) 1 mg Q4H PRN IV AGITATION/ANXIETY Last administered on 22:04; Admin Dose 1 MG; Start 09/27/16 at 17:30 Morphine Sulfate (morphine) 2 mg Q4H PRN IV PAIN Last administered on 10/01/16 00:05; Admin Dose 2 MG; Start 09/28/16 at 11:30 Collagenase (Santyl) 1 applic DAILY TOP Last administered on 10/08/16 09:00; Admin Dose 1 APPLIC; Start 09/28/16 at 19:30 Hydralazine HCl (Apresoline) 10 mg Q8 PO Last administered on 10/07/16 13:51; Admin Dose 10 MG; Start 10/02/16 at 22:00 Diagnostic Test (Pha) (Accu-Chek) 1 ea 02 XX ; Start 10/03/16 at 02:00 Miscellaneous Information 1 ea NOTE XX ; Start 10/02/16 at 23:30 Glucose (Glutose) 15 gm Q15M PRN PO DECREASED GLUCOSE; Start 10/02/16 at 23:30 Glucose (Glutose) 22.5 gm Q15M PRN PO DECREASED GLUCOSE; Start 10/02/16 at 23:30 Dextrose (D50w Syringe) 25 ml Q15M PRN IV DECREASED GLUCOSE; Start 10/02/16 at 23:30 Dextrose (D50w Syringe) 50 ml Q15M PRN IV DECREASED GLUCOSE; Start 10/02/16 at 23:30 Glucagon (Glucagen) 1 mg Q15M PRN IM DECREASED GLUCOSE; Start 10/02/16 at 23:30 Glucose (Glutose) 15 gm Q15M PRN BUCCAL DECREASED GLUCOSE; Start 10/02/16 at 23: 30 Simethicone (Mylicon) 80 mg Q6H PRN PO DISTENSION/GAS/BLOATING Last administered on 10/03/16 17:18; Admin Dose 80 MG; Start 10/03/16 at 17:30 Polyethylene Glycol (Miralax) 8.5 gm DAILY PO Last administered on 10/08/16 10 :05; Admin Dose 8.5 GM; Start 10/04/16 at 09:00 Ondansetron HCl (Zofran Inj) 4 mg Q4H PRN IV NAUSEA AND/OR VOMITING Last administered on 10/04/16 14:36; Admin Dose 4 MG; Start 10/04/16 at 15:00 Povidone Iodine (Povidone-Iodine) 1 applic DAILY TOP Last administered on 10:06; Admin Dose 1 APPLIC; Start 10/05/16 at 12:30 Guaifenesin (Robitussin Liquid Cup) 200 mg Q4H PRN PO COUGH Last administered on 10/06/16 23:01; Admin Dose 200 MG; Start 10/06/16 at 22:30 Pantoprazole 40 mg 40 mg BID@06,18 PO Last administered on 10/08/16 05:17; Admin Dose 40 MG; Start 10/08/16 at 06:00 Albumin Human (Albumin Human 25%) 100 ml @ 100 mls/hr Q1H IV Last administered on 10/08/16 13:16; Admin Dose 100 MLS/HR; Start 10/08/16 at 13:00 ; Stop 10/08/16 at 14:59 ADA MICHELLE NP October 08, 2016 13:43
--- NOTE | 2016-10-08 13:54 | CONS ---
Date/Time of Note Date/Time of Note DATE: 10/08/16 TIME: 13:52 Assessment/Plan Assessment/Plan Chief Complaint/Hosp Course IMPRESSION: 1. Hypotension/shock state, question cardiogenic versus septic unlikely as patient had a low EF with negative cardiac enzymes-Now off Levo with stable BP 2. Congestive heart failure, systolic, acute on chronic. 3. Coronary artery disease, status post coronary artery bypass graft surgery. 4. Chronic kidney disease on hemodialysis. 5. Coagulopathy secondary to Eliquis. 6. History of paroxysmal atrial fibrillation. 7. Sepsis-improving off pressors 8. Elevated digoxin level. 9. Anemia Recc: -Tele -Continue asa -Resume eliquis -Continue digoxin but check digoxin level -HD for volume removal as tolerated only -Continue abx's and f/u cx data -Continue hydralazine as able after speech/swallow eval -PT Problems: Consultation Date/Type/Reason Admit Date/Time Sep 19, 2016 at 14:51 Initial Consult Date 09/23/2016 Type of Consultation: Cardiology Reason for Consultation Cardiomyopathy/CHF Referring Provider: THERESA RIVERA Exam/Review of Systems Vital Signs Vitals Vital Signs Date Time Temp Pulse Resp B/P Pulse Ox O2 Delivery O2 Flow Rate FiO2 10/08/16 13:35 60 10/08/16 12:35 20 10/08/16 11:49 3.0 10/08/16 11:28 98.2 121/57 98 10/08/16 11:17 Nasal Cannula 10/04/16 12:26 50 Intake and Output 10/07/16 10/07/16 10/08/16 15:00 23:00 07:00 Intake Total 500 ml 120 ml Balance 500 ml 120 ml Exam Review of Systems: CONSTITUTIONAL: No fevers, chills. PULMONARY: No sob CARDIOVASCULAR: No chest pain/palpitations GASTROINTESTINAL: No nausea/vomiting. GENITOURINARY: No hematuria/dysuria. MUSCULOSKELETAL: Mild weakness PSYCHIATRIC: The patient denies depression. NEUROLOGIC: lethargic Constitutional: alert, oriented Psych: no complaints Head: normocephalic ENMT: mucosa pink and moist Neck: jvd (9 cm water), supple Respiratory: diminished breath sounds Cardiovascular: regular rate and rhythm Gastrointestinal: non-tender, soft Musculoskeletal: muscle tone (normal) Extremities: edema (none) Neurological: other (No focal deficits) Results Result Diagram: 10/08/16 0520 10/08/16 0520 Results 24 hrs Laboratory Tests Test 10/07/16 17:37 10/07/16 20:11 10/08/16 05:20 10/08/16 07:32 Bedside Glucose 132 156 122 White Blood Count 4.9 # Red Blood Count 3.17 L Hemoglobin 8.4 L Hematocrit 29.4 L Mean Corpuscular Volume 92.7 Mean Corpuscular Hemoglobin 26.5 L Mean Corpuscular Hemoglobin Concent 28.6 L Red Cell Distribution Width 22.7 H Platelet Count 299 Mean Platelet Volume 11.2 H Neutrophils % 69.6 Lymphocytes % 15.5 Monocytes % 12.5 H Eosinophils % 1.8 Basophils % 0.2 Nucleated Red Blood Cells % 6.7 H Neutrophils # 3.4 Lymphocytes # 0.8 Monocytes # 0.6 Eosinophils # 0.1 Basophils # 0.0 Nucleated Red Blood Cells # 0.3 H Sodium Level 135 Potassium Level 4.4 Chloride Level 99 Carbon Dioxide Level 27 Anion Gap 13 Blood Urea Nitrogen 47 #H Creatinine 2.74 H Glucose Level 111 Calcium Level 9.1 Test 10/08/16 12:21 Bedside Glucose 131 Medications Medications Current Medications Apixaban (Eliquis) 2.5 mg BID PO Last administered on 10/08/16 10:06; Admin Dose 2.5 MG; Start 09/19/16 at 21:00; Status Future hold Ascorbic Acid (Vitamin C) 500 mg DAILY PO Last administered on 10/08/16 10:06 ; Admin Dose 500 MG; Start 09/20/16 at 09:00 Aspirin (Aspirin) 81 mg DAILY PO Last administered on 10/08/16 10:06; Admin Dose 81 MG; Start 09/20/16 at 09:00 Carvedilol (Coreg) 1.5625 mg BID PO Last administered on 09/22/16 20:47; Admin Dose 1.5625 MG; Start 09/19/16 at 21:00; Status Future Hold Digoxin (Digoxin) 0.125 mg Q2D@13 PO Last administered on 10/07/16 13:50; Admin Dose 0.125 MG; Start 09/21/16 at 13:00; Status Future hold Furosemide (Lasix) 20 mg DAILY@06 IV Last administered on 10/08/16 05:17; Admin Dose 20 MG; Start 09/20/16 at 06:00 Dextrose (D50w Syringe) 25 ml Q15M PRN IV DECREASED GLUCOSE; Start 09/21/16 at 14:00 IV Flush (NS 10 ml) 10 ml PRN PRN IV IV PROTOCOL Last administered on 05:14; Admin Dose 10 ML; Start 09/22/16 at 18:30 Docusate Sodium (Colace Liquid Cup) 200 mg QHS NGT Last administered on 20:20; Admin Dose 200 MG; Start 09/24/16 at 21:00 Potassium Chloride (Potassium Chloride Pwd/Soln) 20 meq BID NGT Last administered on 10/08/16 10:05; Admin Dose 20 MEQ; Start 09/27/16 at 09:00 Lorazepam (Ativan) 1 mg Q4H PRN IV AGITATION/ANXIETY Last administered on 22:04; Admin Dose 1 MG; Start 09/27/16 at 17:30 Morphine Sulfate (morphine) 2 mg Q4H PRN IV PAIN Last administered on 10/01/16 00:05; Admin Dose 2 MG; Start 09/28/16 at 11:30 Collagenase (Santyl) 1 applic DAILY TOP Last administered on 10/08/16 09:00; Admin Dose 1 APPLIC; Start 09/28/16 at 19:30 Hydralazine HCl (Apresoline) 10 mg Q8 PO Last administered on 10/07/16 13:51; Admin Dose 10 MG; Start 10/02/16 at 22:00 Diagnostic Test (Pha) (Accu-Chek) 1 ea 02 XX ; Start 10/03/16 at 02:00 Miscellaneous Information 1 ea NOTE XX ; Start 10/02/16 at 23:30 Glucose (Glutose) 15 gm Q15M PRN PO DECREASED GLUCOSE; Start 10/02/16 at 23:30 Glucose (Glutose) 22.5 gm Q15M PRN PO DECREASED GLUCOSE; Start 10/02/16 at 23:30 Dextrose (D50w Syringe) 25 ml Q15M PRN IV DECREASED GLUCOSE; Start 10/02/16 at 23:30 Dextrose (D50w Syringe) 50 ml Q15M PRN IV DECREASED GLUCOSE; Start 10/02/16 at 23:30 Glucagon (Glucagen) 1 mg Q15M PRN IM DECREASED GLUCOSE; Start 10/02/16 at 23:30 Glucose (Glutose) 15 gm Q15M PRN BUCCAL DECREASED GLUCOSE; Start 10/02/16 at 23: 30 Simethicone (Mylicon) 80 mg Q6H PRN PO DISTENSION/GAS/BLOATING Last administered on 10/03/16 17:18; Admin Dose 80 MG; Start 10/03/16 at 17:30 Polyethylene Glycol (Miralax) 8.5 gm DAILY PO Last administered on 10/08/16 10 :05; Admin Dose 8.5 GM; Start 10/04/16 at 09:00 Ondansetron HCl (Zofran Inj) 4 mg Q4H PRN IV NAUSEA AND/OR VOMITING Last administered on 10/04/16 14:36; Admin Dose 4 MG; Start 10/04/16 at 15:00 Povidone Iodine (Povidone-Iodine) 1 applic DAILY TOP Last administered on 10:06; Admin Dose 1 APPLIC; Start 10/05/16 at 12:30 Guaifenesin (Robitussin Liquid Cup) 200 mg Q4H PRN PO COUGH Last administered on 10/06/16 23:01; Admin Dose 200 MG; Start 10/06/16 at 22:30 Pantoprazole 40 mg 40 mg BID@06,18 PO Last administered on 10/08/16 05:17; Admin Dose 40 MG; Start 10/08/16 at 06:00 Albumin Human (Albumin Human 25%) 100 ml @ 100 mls/hr Q1H IV Last administered on 10/08/16 13:16; Admin Dose 100 MLS/HR; Start 10/08/16 at 13:00 ; Stop 10/08/16 at 14:59 POLI SAN October 08, 2016 13:54
--- NOTE | 2016-10-08 16:22 | CONS ---
Date/Time of Note Date/Time of Note DATE: 10/08/16 TIME: 16:21 Assessment/Plan Assessment/Plan Chief Complaint/Hosp Course IMPRESSION: 1. s/p hypoxic res failure off vent 2. Patient has a chronic systolic heart failure. 3. Chronic kidney disease requiring hemodialysis. 4. History of acute tubular necrosis. 5. Cardiomyopathy. 6. Anemia. 7. Neutropenia. 8. The patient has hypoalbuminemia. 9. Patient has ventilator dependent respiratory failure. 10. History of sepsis. 11. Septic shock.BETTER 12 hypokalemia better 13 HYPOPHOSPHATEMIA better plan continue hd for now d/w family hd MWF Problems: Consultation Date/Type/Reason Admit Date/Time Sep 19, 2016 at 14:51 Type of Consultation: RENAL Referring Provider: THERESA RIVERA 24 HR Interval Summary Constitutional: other (ON HD) Exam/Review of Systems Vital Signs Vitals Vital Signs Date Time Temp Pulse Resp B/P Pulse Ox O2 Delivery O2 Flow Rate FiO2 10/08/16 15:27 98.0 60 19 109/60 100 10/08/16 11:49 3.0 10/08/16 11:17 Nasal Cannula 10/04/16 12:26 50 Intake and Output 10/07/16 10/07/16 10/08/16 15:00 23:00 07:00 Intake Total 500 ml 120 ml Balance 500 ml 120 ml Exam Neck: supple Respiratory: diminished breath sounds Cardiovascular: regular rate and rhythm Gastrointestinal: bowel sounds (+), soft, No ascites Results Result Diagram: 10/08/16 0520 10/08/16 0520 Results 24 hrs Laboratory Tests Test 10/07/16 17:37 10/07/16 20:11 10/08/16 05:20 10/08/16 07:32 Bedside Glucose 132 156 122 White Blood Count 4.9 # Red Blood Count 3.17 L Hemoglobin 8.4 L Hematocrit 29.4 L Mean Corpuscular Volume 92.7 Mean Corpuscular Hemoglobin 26.5 L Mean Corpuscular Hemoglobin Concent 28.6 L Red Cell Distribution Width 22.7 H Platelet Count 299 Mean Platelet Volume 11.2 H Neutrophils % 69.6 Lymphocytes % 15.5 Monocytes % 12.5 H Eosinophils % 1.8 Basophils % 0.2 Nucleated Red Blood Cells % 6.7 H Neutrophils # 3.4 Lymphocytes # 0.8 Monocytes # 0.6 Eosinophils # 0.1 Basophils # 0.0 Nucleated Red Blood Cells # 0.3 H Sodium Level 135 Potassium Level 4.4 Chloride Level 99 Carbon Dioxide Level 27 Anion Gap 13 Blood Urea Nitrogen 47 #H Creatinine 2.74 H Glucose Level 111 Calcium Level 9.1 Test 10/08/16 12:21 Bedside Glucose 131 Medications Medications Current Medications Apixaban (Eliquis) 2.5 mg BID PO Last administered on 10/08/16 10:06; Admin Dose 2.5 MG; Start 09/19/16 at 21:00; Status Future hold Ascorbic Acid (Vitamin C) 500 mg DAILY PO Last administered on 10/08/16 10:06 ; Admin Dose 500 MG; Start 09/20/16 at 09:00 Aspirin (Aspirin) 81 mg DAILY PO Last administered on 10/08/16 10:06; Admin Dose 81 MG; Start 09/20/16 at 09:00 Carvedilol (Coreg) 1.5625 mg BID PO Last administered on 09/22/16 20:47; Admin Dose 1.5625 MG; Start 09/19/16 at 21:00; Status Future Hold Digoxin (Digoxin) 0.125 mg Q2D@13 PO Last administered on 10/07/16 13:50; Admin Dose 0.125 MG; Start 09/21/16 at 13:00; Status Future hold Furosemide (Lasix) 20 mg DAILY@06 IV Last administered on 10/08/16 05:17; Admin Dose 20 MG; Start 09/20/16 at 06:00 Dextrose (D50w Syringe) 25 ml Q15M PRN IV DECREASED GLUCOSE; Start 09/21/16 at 14:00 IV Flush (NS 10 ml) 10 ml PRN PRN IV IV PROTOCOL Last administered on 05:14; Admin Dose 10 ML; Start 09/22/16 at 18:30 Docusate Sodium (Colace Liquid Cup) 200 mg QHS NGT Last administered on 20:20; Admin Dose 200 MG; Start 09/24/16 at 21:00 Potassium Chloride (Potassium Chloride Pwd/Soln) 20 meq BID NGT Last administered on 10/08/16 10:05; Admin Dose 20 MEQ; Start 09/27/16 at 09:00 Lorazepam (Ativan) 1 mg Q4H PRN IV AGITATION/ANXIETY Last administered on 22:04; Admin Dose 1 MG; Start 09/27/16 at 17:30 Morphine Sulfate (morphine) 2 mg Q4H PRN IV PAIN Last administered on 10/01/16 00:05; Admin Dose 2 MG; Start 09/28/16 at 11:30 Collagenase (Santyl) 1 applic DAILY TOP Last administered on 10/08/16 09:00; Admin Dose 1 APPLIC; Start 09/28/16 at 19:30 Hydralazine HCl (Apresoline) 10 mg Q8 PO Last administered on 10/07/16 13:51; Admin Dose 10 MG; Start 10/02/16 at 22:00 Diagnostic Test (Pha) (Accu-Chek) 1 ea 02 XX ; Start 10/03/16 at 02:00 Miscellaneous Information 1 ea NOTE XX ; Start 10/02/16 at 23:30 Glucose (Glutose) 15 gm Q15M PRN PO DECREASED GLUCOSE; Start 10/02/16 at 23:30 Glucose (Glutose) 22.5 gm Q15M PRN PO DECREASED GLUCOSE; Start 10/02/16 at 23:30 Dextrose (D50w Syringe) 25 ml Q15M PRN IV DECREASED GLUCOSE; Start 10/02/16 at 23:30 Dextrose (D50w Syringe) 50 ml Q15M PRN IV DECREASED GLUCOSE; Start 10/02/16 at 23:30 Glucagon (Glucagen) 1 mg Q15M PRN IM DECREASED GLUCOSE; Start 10/02/16 at 23:30 Glucose (Glutose) 15 gm Q15M PRN BUCCAL DECREASED GLUCOSE; Start 10/02/16 at 23: 30 Simethicone (Mylicon) 80 mg Q6H PRN PO DISTENSION/GAS/BLOATING Last administered on 10/03/16 17:18; Admin Dose 80 MG; Start 10/03/16 at 17:30 Polyethylene Glycol (Miralax) 8.5 gm DAILY PO Last administered on 10/08/16 10 :05; Admin Dose 8.5 GM; Start 10/04/16 at 09:00 Ondansetron HCl (Zofran Inj) 4 mg Q4H PRN IV NAUSEA AND/OR VOMITING Last administered on 10/04/16 14:36; Admin Dose 4 MG; Start 10/04/16 at 15:00 Povidone Iodine (Povidone-Iodine) 1 applic DAILY TOP Last administered on 10:06; Admin Dose 1 APPLIC; Start 10/05/16 at 12:30 Guaifenesin (Robitussin Liquid Cup) 200 mg Q4H PRN PO COUGH Last administered on 10/06/16 23:01; Admin Dose 200 MG; Start 10/06/16 at 22:30 Pantoprazole (Protonix Tab) 40 mg BID@06,18 PO Last administered on 10/08/16 05:17; Admin Dose 40 MG; Start 10/08/16 at 06:00 YANIRA HART MD October 08, 2016 16:22
[2016-10-08] MEDS: DOCUSATE SODIUM 10 MG/ML (10ML CUP) NGT SCH (20:55)
[2016-10-08] MEDS: GUAIFENESIN 20 MG/ML 5ML CUP PO PRN (21:08)
[2016-10-09] VITALS (18 sets, daily range): BP systolic 116–143; BP diastolic 54–65; PULSE 59–70; RESP 18–20
[2016-10-09] MEDS: ACCU-CHEK XX SCH (02:00)
[2016-10-09] MEDS: PANTOPRAZOLE (EC) 40 MG TAB PO SCH ×2 (06:14→17:28)
[2016-10-09] MEDS: FUROSEMIDE 20 MG INJ IV SCH (06:14)
[2016-10-09] MEDS: INSULIN ASPART [NOVOLOG] 3 ML PEN SC SCH ×4 (07:55→21:00)
[2016-10-09 07:58] LABS: ADD SCAN DIFF NO
[2016-10-09 08:01] LABS: ABNORMAL IP MESSAGE 1; BASOPHILS % 0.2 % (0.0-2.0); EOSINOPHILS # 0.1 10^3/ul (0.0-0.5); EOSINOPHILS % 1.3 % (0.0-7.0); HEMOGLOBIN 8.4 g/dl (14.0-18.0); LYMPHOCYTES # 0.9 10^3/ul (0.8-2.9); LYMPHOCYTES % 17.9 % (15.0-51.0); MEAN CORPUSCULAR HEMOGLOBIN 26.7 pg (29.0-33.0); MEAN CORPUSCULAR VOLUME 92.1 fl (82.0-101.0); MEAN PLATELET VOLUME 11.4 fl (7.4-10.4); MONOCYTE # 0.7 10^3/ul (0.3-0.9); MONOCYTES % 12.7 % (0.0-11.0); NEUTROPHIL # 3.5 10^3/ul (1.6-7.5); NEUTROPHILS % 67.3 % (39.0-77.0); NUCLEATED RED BLOOD CELLS # 0.5 10^3/ul (0.0-0.0); NUCLEATED RED BLOOD CELLS% 9.8 /100WBC (0.0-0.0); PLATELET COUNT 305 10^3/UL (140-415); RED BLOOD COUNT 3.15 10^6/ul (4.70-6.10); RED CELL DISTRIBUTION WIDTH 23.2 % (11.5-14.5); WHITE BLOOD COUNT 5.2 10^3/ul (4.8-10.8)
[2016-10-09] MEDS: ASPIRIN 81 MG TAB PO SCH (08:52)
[2016-10-09] MEDS: POLYETHYLENE GLYCOL 17 GM PACKET PO SCH (08:52)
[2016-10-09] MEDS: APIXABAN 5 MG TABLET PO SCH ×2 (08:52→21:38)
[2016-10-09] MEDS: ASCORBIC ACID 500 MG TAB PO SCH (08:52)
[2016-10-09] MEDS: POVIDONE IODINE 10% 28.4 GM OINT TOP SCH (08:52)
[2016-10-09 08:53] LABS: POTASSIUM 4.2 mmol/L (3.5-5.1)
[2016-10-09] MEDS: COLLAGENASE 30 GM TUBE TOP SCH (08:53)
[2016-10-09 08:56] LABS: CREATININE 2.75 mg/dl (0.61-1.24)
[2016-10-09 08:57] LABS: CALCIUM 9.1 mg/dl (8.4-10.2)
--- NOTE | 2016-10-09 10:04 | DS ---
Date/Time of Note Date/Time of Note DATE: 10/09/16 TIME: 09:56 Discharge Summary Admission/Discharge Info Admit Date/Time Sep 19, 2016 at 14:51 Discharge Date/Time Final Diagnosis FINAL DIAGNOSES: 1. Shortness of breath secondary to end-stage congestive heart failure with recurrent ventilator-dependent respiratory failure, status post intubation, now extubation. 2. Advanced congestive heart failure with ejection fraction 25%. 3. Type 2 diabetes 4. Status post cardiogenic and septic shock, now off pressor support, stable. 5. Chronic kidney disease, end-stage renal disease, on dialysis 3 times a week. 6. Paroxysmal atrial fibrillation, on Eliquis for anticoagulation. 7. 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 8. Chronic liver cirrhosis coagulopathy. 9. History of coronary artery disease and severe ischemic cardiomyopathy, status post coronary artery bypass grafting and AICD placement in the past. 10. Severe debility. 11. History of lower extremity cellulitis and ulcerations, resolving. 12. Chary urinary tract infection, resolved. Time spent discharging patient 50 minutes. Hx of Present Illness PRESENTING COMPLAINT: Hypotension HISTORY OF PRESENTING COMPLAINT: 81 yo M sent from dialysis center for low blood pressure. Has been having worsening SOB for the last few days Emergently intubated in ER. New ulcers and cellulitis noted on both feet. Now on pressor support going to ICU. Hospital Course DATE OF ADMISSION: 09/19/2016 DATE OF DISCHARGE: 10/09/2016 HOSPITAL COURSE: This is an 81-year-old male originally admitted on 09/19/2016 , being discharged home with home health and oxygen on 10/09/2016. The patient initially came in with shortness of breath, was found to have end-stage CHF and initially was intubated and sent to the ICU because of shortness of breath. He was found with recurrent ventilator-dependent respiratory failure secondary to that. The patient was seen by multiple specialists during this hospital stay including renal team, cardiology team, pulmonary team, infectious disease and palliative care team. The patient also required pressor support one time because he was in a shock state with severe hypotension, cardiogenic versus septic. Eventually, the patient was able to be extubated and transferred out of ICU after many days. He worked with physical therapy as well. He continued Eliquis for his atrial fibrillation as well. He continued medical management for his shortness of breath and advanced CHF. The patient's has a last known ejection fraction in July 2016 of 25%. He has a known history of coronary artery bypass grafting in the past. This was thought to be contributing to patient's advanced CHF. In any event, when he was transferred out the ICU, he was sent to the telemetry floor. He continued to have dialysis for his end- stage renal disease as well that was performed by the renal team. He worked with physical therapy. His oxygen requirements were weaned down to 3 liters nasal cannula, which is his baseline. He does use oxygen at home, and per discussion with the son and CM, they have O2 set up at home at this time. Pt was recommended by PT and the delivery consultant teams to go to a assisted facility given that he is still needs 2-person assistance, and is still overall somewhat weak, but the family (son) was adamant about not sending him there. This was the case despite myself explaining to the son the risk's of falls, medicine non-compliance at home; however the son stated to me"I don't believe my father will get any better at the SNF". I also explained to son in detail again that the patient has advanced CHF (endstage), and that there is no guarantee unfortunately that his father will not require future hospital admission. I also explained that this type of CHF usually does not return to normal and that the best chance for his father is to take his medications every day and follow up with his doctors in the clinic, but unfortunately there is no complete cure for his advanced CHF. At one point, because of the patient's multiple comorbidities including the advanced CHF, there was recommendation by the physicians for hospice care. The family did listen to the hospice care team eval, but decided they did not want to pursue these services at this time. The patient, however, was made DNR/DNI. Because the patient is relatively stable today, his vital signs are stable, he is ambulating with assistance, tolerating a p.o. diet and requiring 3 liters of oxygen, which is his minimal requirement at this point, he will be discharged home with home health nursing, oxygen and physical therapy today. He is stable presently. DISCHARGE MEDICATIONS: He will be sent with: 1. MiraLax 8.5 grams daily. 2. Simethicone 80 mg q.6h. p.r.n. 3. Tylenol 650 q.4h. p.r.n. 4. Albuterol nebulizers q.6h. p.r.n. 5. Eliquis 2.5 mg b.i.d. 6. Vitamin C 500 mg daily. 7. Aspirin 81 mg daily. 8. Dulcolax 10 mg per rectal q.24h. p.r.n. 9. Coreg 1.5625 mg b.i.d. 10. Cranberry 425 mg b.i.d. 11. Digoxin 0.125 mg q.48h. 12. Colace 200 mg at bedtime. 13. Lasix 40 mg p.o. daily. 14. Robitussin p.r.n. 15. Hydralazine 10 mg p.o. q.8h. 16. Xopenex inhaled q.6h. p.r.n. 17. Milk of magnesia 30 mL q.24h. p.r.n. 18. Metformin 500 mg b.i.d. 19. Multivitamin 1 tab daily. 20. Nitroglycerin 0.4 mg sublingual q.5 minutes p.r.n. 21. Protonix 40 mg daily. 22. Fleet enema per rectal q.2 days p.r.n. 23. Carafate 1 gram q.i.d. 24. Zinc sulfate 220 mg daily. FOLLOWUP: He will need to follow up with primary care doctor in the clinic in the next 1 to 2 weeks. Home Meds Active Scripts Polyethylene Glycol* (Miralax*) 17 Gm Powd.pack, 8.5 GM PO DAILY, #30 Prov:THERESA RIVERA S. 10/08/16 Simethicone* (Mylicon*) 80 Mg Tab, 80 MG PO Q6H Y for DISTENSION/GAS/BLOATING, # 90 TAB Prov:THERESA RIVERA S. 10/08/16 Digoxin* (Digitek*) 125 Mcg Tablet, 0.125 MG PO Q2D@13, #15 TAB 2 Refills Prov:THERESA RIVERA S. 09/11/16 Hydralazine Hcl* (Hydralazine Hcl*) 10 Mg Tablet, 10 MG PO Q8, #90 TAB 2 Refills Prov:THERESA RIVERA S. 09/11/16 Carvedilol* (Carvedilol*) 3.125 Mg Tablet, 1.5625 MG PO BID for 30 Days, #60 TAB 3 Refills Prov:THERESA RIVERA 09/11/16 Sucralfate (Carafate) 1 Gm Tablet, 1 GM NGT QID for 1 Day, TAB Prov:HAKAN REINA MD 08/17/16 Reported Medications Albuterol Sulfate* (Albuterol Sulfate* Neb) 0.083%-3 Ml Neb, 2.5 MG NEB Q6H Y for WHEEZING AND SOB, #30 VIAL 08/27/16 Levalbuterol Hcl* (Levalbuterol Hcl*) 0.63 Mg/3 Ml Vial.neb, 0.63 MG INHALATION Q6H Y for WHEEZING AND SOB, VIAL 08/27/16 Sod Phosphate/Sod Biphosphate* (Fleet* Enema Pediatric) 66.6 Ml Soln, 66.6 ML NE Q2DAYS Y for CONSTIPATION, ENEMA 08/27/16 Apixaban* (Eliquis*) 2.5 Mg Tablet, 2.5 MG PO BID, TAB 08/27/16 Bisacodyl* (Bisacodyl*) 10 Mg Supp, 10 MG NE Q24H Y for PRN, SUPP 08/27/16 Cranberry Extract (Cranberry) 425 Mg Capsule, 425 MG PO BID, CAP 08/27/16 Docusate Sodium* (Colace*) 100 Mg Capsule, 200 MG PO QHS, #30 CAP 08/27/16 Aspirin* (Aspirin* Chew) 81 Mg Tab.chew, 81 MG PO DAILY, TAB.CHEW 08/27/16 Magnesium Hydroxide* (Milk Of Magnesia*) 400 Mg/5 Ml Oral.susp, 30 ML PO Q24H Y for HS, ML 08/27/16 Multivitamin with Minerals (Multivitamins with Minerals) 1 Each Tablet, 1 EACH PO DAILY, TAB 08/27/16 Pantoprazole* (Protonix*) 40 Mg Tablet.dr, 40 MG PO DAILY, TAB 08/27/16 Guaifenesin-Codeine Phosphate* (Robitussin* AC) 5 Ml Syrup, 10 ML PO Q4H Y for COUGH, ML 08/27/16 Acetaminophen* (Tylenol*) 325 Mg Tablet, 650 MG PO Q4H Y for MILD PAIN LEVEL 1-3 , TAB FOR FEVER 100 AND ABOVE 08/27/16 Ascorbic Acid (Vitamin C) 500 Mg Tab, 500 MG PO DAILY, TAB 08/27/16 Zinc Sulfate* (Zinc Sulfate*) 220 Mg Tablet, 220 MG PO DAILY, TAB 08/27/16 Nitroglycerin* (Nitrostat*) 0.4 Mg Tab.subl, 0.4 MG SL DAILY Y for CHEST PAIN, BOTTLE 05/27/16 Furosemide* (Lasix*) 40 Mg Tablet, 40 MG PO DAILY, TAB HOLD IF SBP BELOW 110 OR HR BELOW 60 10/16/15 Metformin* (Glucophage*) 500 Mg Tab, 500 MG PO BID, TAB 09/11/14 Pending Labs Laboratory Tests Test 10/08/16 12:21 10/08/16 17:36 10/08/16 20:30 10/09/16 07:10 Bedside Glucose 131mg/dL (70-220) 131mg/dL (70-220) 107mg/dL (70-220) White Blood Count 5.210^3/ul (4.8-10.8) Red Blood Count 3.1510^6/ul (4.70-6.10) Hemoglobin 8.4g/dl (14.0-18.0) Hematocrit 29.0% (42.0-52.0) Mean Corpuscular Volume 92.1fl (82.0-101.0) Mean Corpuscular Hemoglobin 26.7pg (29.0-33.0) Mean Corpuscular Hemoglobin Concent 29.0g/dl (32.0-37.0) Red Cell Distribution Width 23.2% (11.5-14.5) Platelet Count 20730^3/UL (140-415) Mean Platelet Volume 11.4fl (7.4-10.4) Neutrophils % 67.3% (39.0-77.0) Lymphocytes % 17.9% (15.0-51.0) Monocytes % 12.7% (0.0-11.0) Eosinophils % 1.3% (0.0-7.0) Basophils % 0.2% (0.0-2.0) Nucleated Red Blood Cells % 9.8/100WBC (0.0-0.0) Neutrophils # 3.510^3/ul (1.6-7.5) Lymphocytes # 0.910^3/ul (0.8-2.9) Monocytes # 0.710^3/ul (0.3-0.9) Eosinophils # 0.110^3/ul (0.0-0.5) Basophils # 0.010^3/ul (0.0-0.1) Nucleated Red Blood Cells # 0.510^3/ul (0.0-0.0) Sodium Level 137mmol/L (135-144) Potassium Level 4.2mmol/L (3.5-5.1) Chloride Level 95mmol/L (97-110) Carbon Dioxide Level 26mmol/L (21-31) Anion Gap 20 (8-16) Blood Urea Nitrogen 47mg/dl (7-20) Creatinine 2.75mg/dl (0.61-1.24) Glucose Level 99mg/dl (70-220) Calcium Level 9.1mg/dl (8.4-10.2) Test 10/09/16 08:51 Bedside Glucose 118mg/dL (70-220) THERESA RIVERA October 09, 2016 10:04
[2016-10-09] MEDS: DIGOXIN 0.125 MG TAB PO SCH (13:36)
--- NOTE | 2016-10-09 14:44 | CONS ---
Date/Time of Note Date/Time of Note DATE: 10/09/16 TIME: 14:41 Consult Date/Type/Reason Admit Date/Time Sep 19, 2016 at 14:51 Type of Consultation: Pulmonary ICU Ordering Provider: THERESA RIVERA Subjective Patient somewhat congested today but no overt respiratory distress awake alert and oriented He is expressing frustration with being in the hospital requesting to go home Objective Vital Signs Date Time Temp Pulse Resp B/P Pulse Ox O2 Delivery O2 Flow Rate FiO2 10/09/16 12:24 60 10/09/16 11:10 98.2 20 119/58 100 10/09/16 08:45 Nasal Cannula 3.0 Intake and Output 10/08/16 10/08/16 10/09/16 15:00 23:00 07:00 Intake Total 500 ml 400 ml 120 ml Output Total 1500 ml Balance -1000 ml 400 ml 120 ml Exam GENERAL: VITAL SIGNS: per chart NECK: Supple. No JVD or lymphadenopathy. CARDIAC EXAM: S1, S2. No added sounds or murmurs. CHEST: clear bilaterally, No added sounds, rales or wheezes ABDOMEN: Soft, nontender. No guarding or rebound. EXTREMITIES: No cyanosis, clubbing o edema plus NEUROLOGIC: Generalized weakness. No focal deficits. Results/Medications Result Diagram: 10/09/16 0710 10/09/16 0710 Results 24 hrs Laboratory Tests Test 10/08/16 17:36 10/08/16 20:30 10/09/16 07:10 10/09/16 08:51 Bedside Glucose 131 107 118 White Blood Count 5.2 Red Blood Count 3.15 L Hemoglobin 8.4 L Hematocrit 29.0 L Mean Corpuscular Volume 92.1 Mean Corpuscular Hemoglobin 26.7 L Mean Corpuscular Hemoglobin Concent 29.0 L Red Cell Distribution Width 23.2 H Platelet Count 305 Mean Platelet Volume 11.4 H Neutrophils % 67.3 Lymphocytes % 17.9 Monocytes % 12.7 H Eosinophils % 1.3 Basophils % 0.2 Nucleated Red Blood Cells % 9.8 H Neutrophils # 3.5 Lymphocytes # 0.9 Monocytes # 0.7 Eosinophils # 0.1 Basophils # 0.0 Nucleated Red Blood Cells # 0.5 H Sodium Level 137 Potassium Level 4.2 Chloride Level 95 L Carbon Dioxide Level 26 Anion Gap 20 #H Blood Urea Nitrogen 47 H Creatinine 2.75 H Glucose Level 99 Calcium Level 9.1 Test 10/09/16 11:25 Bedside Glucose 138 Medications Current Medications Apixaban (Eliquis) 2.5 mg BID PO Last administered on 10/09/16 08:52; Admin Dose 2.5 MG; Start 09/19/16 at 21:00; Status Future hold Ascorbic Acid (Vitamin C) 500 mg DAILY PO Last administered on 10/09/16 08:52 ; Admin Dose 500 MG; Start 09/20/16 at 09:00 Aspirin (Aspirin) 81 mg DAILY PO Last administered on 10/09/16 08:52; Admin Dose 81 MG; Start 09/20/16 at 09:00 Carvedilol (Coreg) 1.5625 mg BID PO Last administered on 09/22/16 20:47; Admin Dose 1.5625 MG; Start 09/19/16 at 21:00; Status Future Hold Digoxin (Digoxin) 0.125 mg Q2D@13 PO Last administered on 10/09/16 13:36; Admin Dose 0.125 MG; Start 09/21/16 at 13:00; Status Future hold Furosemide (Lasix) 20 mg DAILY@06 IV Last administered on 10/09/16 06:14; Admin Dose 20 MG; Start 09/20/16 at 06:00 Dextrose (D50w Syringe) 25 ml Q15M PRN IV DECREASED GLUCOSE; Start 09/21/16 at 14:00 IV Flush (NS 10 ml) 10 ml PRN PRN IV IV PROTOCOL Last administered on 05:14; Admin Dose 10 ML; Start 09/22/16 at 18:30 Docusate Sodium (Colace Liquid Cup) 200 mg QHS NGT Last administered on 20:55; Admin Dose 200 MG; Start 09/24/16 at 21:00 Potassium Chloride (Potassium Chloride Pwd/Soln) 20 meq BID NGT Last administered on 10/08/16 10:05; Admin Dose 20 MEQ; Start 09/27/16 at 09:00; Status Future Hold Lorazepam (Ativan) 1 mg Q4H PRN IV AGITATION/ANXIETY Last administered on 22:04; Admin Dose 1 MG; Start 09/27/16 at 17:30 Morphine Sulfate (morphine) 2 mg Q4H PRN IV PAIN Last administered on 10/01/16 00:05; Admin Dose 2 MG; Start 09/28/16 at 11:30 Collagenase (Santyl) 1 applic DAILY TOP Last administered on 10/09/16 08:53; Admin Dose 1 APPLIC; Start 09/28/16 at 19:30 Hydralazine HCl (Apresoline) 10 mg Q8 PO Last administered on 10/09/16 13:38; Admin Dose 10 MG; Start 10/02/16 at 22:00 Diagnostic Test (Pha) (Accu-Chek) 1 ea 02 XX ; Start 10/03/16 at 02:00 Miscellaneous Information 1 ea NOTE XX ; Start 10/02/16 at 23:30 Glucose (Glutose) 15 gm Q15M PRN PO DECREASED GLUCOSE; Start 10/02/16 at 23:30 Glucose (Glutose) 22.5 gm Q15M PRN PO DECREASED GLUCOSE; Start 10/02/16 at 23:30 Dextrose (D50w Syringe) 25 ml Q15M PRN IV DECREASED GLUCOSE; Start 10/02/16 at 23:30 Dextrose (D50w Syringe) 50 ml Q15M PRN IV DECREASED GLUCOSE; Start 10/02/16 at 23:30 Glucagon (Glucagen) 1 mg Q15M PRN IM DECREASED GLUCOSE; Start 10/02/16 at 23:30 Glucose (Glutose) 15 gm Q15M PRN BUCCAL DECREASED GLUCOSE; Start 10/02/16 at 23: 30 Simethicone (Mylicon) 80 mg Q6H PRN PO DISTENSION/GAS/BLOATING Last administered on 10/03/16 17:18; Admin Dose 80 MG; Start 10/03/16 at 17:30 Polyethylene Glycol (Miralax) 8.5 gm DAILY PO Last administered on 10/09/16 08 :52; Admin Dose 8.5 GM; Start 10/04/16 at 09:00 Ondansetron HCl (Zofran Inj) 4 mg Q4H PRN IV NAUSEA AND/OR VOMITING Last administered on 10/04/16 14:36; Admin Dose 4 MG; Start 10/04/16 at 15:00 Povidone Iodine (Povidone-Iodine) 1 applic DAILY TOP Last administered on 5/12/ 17at 08:52; Admin Dose 1 APPLIC; Start 10/05/16 at 12:30 Guaifenesin (Robitussin Liquid Cup) 200 mg Q4H PRN PO COUGH Last administered on 10/08/16 21:08; Admin Dose 200 MG; Start 10/06/16 at 22:30 Pantoprazole (Protonix Tab) 40 mg BID@06,18 PO Last administered on 10/09/16 06:14; Admin Dose 40 MG; Start 10/08/16 at 06:00 Assessment/Plan Chief Complaint/Hosp Course Assessment 1. Status post hypoxemic respiratory failure, recurrent hypoxemia with respiratory failure secondary to volume overload 2. Aspiration pneumonia 3. Renal failure on hemodialysis discharge planning 4. Anemia of chronic disease. No acute bleeding. Plan 1. Continue nasal cannula 2. Physical therapy eval if more stable 3. Advance diet slowly Disposition Continue current care Extensive discussion with patient's daughter at bedside she agrees to home with hospice, primary care team and discussing this option with patient's sons. I agree with primary care team at home with hospice would be best option for this pleasant elderly gentleman who wishes to at home. Problems: HERMAN CARDENAS MD, [facility] October 09, 2016 14:44
--- NOTE | 2016-10-09 19:45 | CONS ---
Date/Time of Note Date/Time of Note DATE: 10/09/16 TIME: 19:44 Assessment/Plan Assessment/Plan Chief Complaint/Hosp Course 1. Chronic kidney disease requiring hemodialysis 2. Chronic systolic heart failure. 3. s/p hypoxic respiratory failure off vent 4. History of acute tubular necrosis. 5. Cardiomyopathy. 6. Anemia. 7. Neutropenia. 8. The patient has hypoalbuminemia. 9. History of sepsis. Problems: Additional Assessment/Plan 1. Per primary md 2. kidney function optimization Consultation Date/Type/Reason Admit Date/Time Sep 19, 2016 at 14:51 Initial Consult Date 09/19/2016 Type of Consultation: nephrology Reason for Consultation Dr Lamar Referring Provider: THERESA RIVERA Exam/Review of Systems Vital Signs Vitals Vital Signs Date Time Temp Pulse Resp B/P Pulse Ox O2 Delivery O2 Flow Rate FiO2 10/09/16 18:25 62 18 10/09/16 15:34 98.2 124/60 100 10/09/16 08:45 Nasal Cannula 3.0 Intake and Output 10/08/16 10/08/16 10/09/16 15:00 23:00 07:00 Intake Total 500 ml 400 ml 120 ml Output Total 1500 ml Balance -1000 ml 400 ml 120 ml Exam Constitutional: other (sleeping) Results Result Diagram: 10/09/16 0710 10/09/16 0710 Results 24 hrs Laboratory Tests Test 10/08/16 20:30 10/09/16 07:10 10/09/16 08:51 10/09/16 11:25 Bedside Glucose 107 118 138 White Blood Count 5.2 Red Blood Count 3.15 L Hemoglobin 8.4 L Hematocrit 29.0 L Mean Corpuscular Volume 92.1 Mean Corpuscular Hemoglobin 26.7 L Mean Corpuscular Hemoglobin Concent 29.0 L Red Cell Distribution Width 23.2 H Platelet Count 305 Mean Platelet Volume 11.4 H Neutrophils % 67.3 Lymphocytes % 17.9 Monocytes % 12.7 H Eosinophils % 1.3 Basophils % 0.2 Nucleated Red Blood Cells % 9.8 H Neutrophils # 3.5 Lymphocytes # 0.9 Monocytes # 0.7 Eosinophils # 0.1 Basophils # 0.0 Nucleated Red Blood Cells # 0.5 H Sodium Level 137 Potassium Level 4.2 Chloride Level 95 L Carbon Dioxide Level 26 Anion Gap 20 #H Blood Urea Nitrogen 47 H Creatinine 2.75 H Glucose Level 99 Calcium Level 9.1 Test 10/09/16 17:26 Bedside Glucose 130 Medications Medications Current Medications Apixaban (Eliquis) 2.5 mg BID PO Last administered on 10/09/16 08:52; Admin Dose 2.5 MG; Start 09/19/16 at 21:00; Status Future hold Ascorbic Acid (Vitamin C) 500 mg DAILY PO Last administered on 10/09/16 08:52 ; Admin Dose 500 MG; Start 09/20/16 at 09:00 Aspirin (Aspirin) 81 mg DAILY PO Last administered on 10/09/16 08:52; Admin Dose 81 MG; Start 09/20/16 at 09:00 Carvedilol (Coreg) 1.5625 mg BID PO Last administered on 09/22/16 20:47; Admin Dose 1.5625 MG; Start 09/19/16 at 21:00; Status Future Hold Digoxin (Digoxin) 0.125 mg Q2D@13 PO Last administered on 10/09/16 13:36; Admin Dose 0.125 MG; Start 09/21/16 at 13:00; Status Future hold Furosemide (Lasix) 20 mg DAILY@06 IV Last administered on 10/09/16 06:14; Admin Dose 20 MG; Start 09/20/16 at 06:00 Dextrose (D50w Syringe) 25 ml Q15M PRN IV DECREASED GLUCOSE; Start 09/21/16 at 14:00 IV Flush (NS 10 ml) 10 ml PRN PRN IV IV PROTOCOL Last administered on 05:14; Admin Dose 10 ML; Start 09/22/16 at 18:30 Docusate Sodium (Colace Liquid Cup) 200 mg QHS NGT Last administered on 20:55; Admin Dose 200 MG; Start 09/24/16 at 21:00 Potassium Chloride (Potassium Chloride Pwd/Soln) 20 meq BID NGT Last administered on 10/08/16 10:05; Admin Dose 20 MEQ; Start 09/27/16 at 09:00; Status Future Hold Lorazepam (Ativan) 1 mg Q4H PRN IV AGITATION/ANXIETY Last administered on 22:04; Admin Dose 1 MG; Start 09/27/16 at 17:30 Morphine Sulfate (morphine) 2 mg Q4H PRN IV PAIN Last administered on 10/01/16 00:05; Admin Dose 2 MG; Start 09/28/16 at 11:30 Collagenase (Santyl) 1 applic DAILY TOP Last administered on 10/09/16 08:53; Admin Dose 1 APPLIC; Start 09/28/16 at 19:30 Hydralazine HCl (Apresoline) 10 mg Q8 PO Last administered on 10/09/16 13:38; Admin Dose 10 MG; Start 10/02/16 at 22:00 Diagnostic Test (Pha) (Accu-Chek) 1 ea 02 XX ; Start 10/03/16 at 02:00 Miscellaneous Information 1 ea NOTE XX ; Start 10/02/16 at 23:30 Glucose (Glutose) 15 gm Q15M PRN PO DECREASED GLUCOSE; Start 10/02/16 at 23:30 Glucose (Glutose) 22.5 gm Q15M PRN PO DECREASED GLUCOSE; Start 10/02/16 at 23:30 Dextrose (D50w Syringe) 25 ml Q15M PRN IV DECREASED GLUCOSE; Start 10/02/16 at 23:30 Dextrose (D50w Syringe) 50 ml Q15M PRN IV DECREASED GLUCOSE; Start 10/02/16 at 23:30 Glucagon (Glucagen) 1 mg Q15M PRN IM DECREASED GLUCOSE; Start 10/02/16 at 23:30 Glucose (Glutose) 15 gm Q15M PRN BUCCAL DECREASED GLUCOSE; Start 10/02/16 at 23: 30 Simethicone (Mylicon) 80 mg Q6H PRN PO DISTENSION/GAS/BLOATING Last administered on 10/03/16 17:18; Admin Dose 80 MG; Start 10/03/16 at 17:30 Polyethylene Glycol (Miralax) 8.5 gm DAILY PO Last administered on 10/09/16 08 :52; Admin Dose 8.5 GM; Start 10/04/16 at 09:00 Ondansetron HCl (Zofran Inj) 4 mg Q4H PRN IV NAUSEA AND/OR VOMITING Last administered on 10/04/16 14:36; Admin Dose 4 MG; Start 10/04/16 at 15:00 Povidone Iodine (Povidone-Iodine) 1 applic DAILY TOP Last administered on 08:52; Admin Dose 1 APPLIC; Start 10/05/16 at 12:30 Guaifenesin (Robitussin Liquid Cup) 200 mg Q4H PRN PO COUGH Last administered on 10/08/16 21:08; Admin Dose 200 MG; Start 10/06/16 at 22:30 Pantoprazole (Protonix Tab) 40 mg BID@06,18 PO Last administered on 10/09/16 06:14; Admin Dose 40 MG; Start 10/08/16 at 06:00 RAMONA MCCLOUD October 09, 2016 19:45
[2016-10-09] MEDS: DOCUSATE SODIUM 10 MG/ML (10ML CUP) NGT SCH (21:37)
[2016-10-09] MEDS: GUAIFENESIN 20 MG/ML 5ML CUP PO PRN (22:51)
[2016-10-10] MEDS: ACCU-CHEK XX SCH (01:47)
[2016-10-10] MEDS: GUAIFENESIN 20 MG/ML 5ML CUP PO PRN (03:43)
[2016-10-10] MEDS: FUROSEMIDE 20 MG INJ IV SCH (05:04)
[2016-10-10] MEDS: PANTOPRAZOLE (EC) 40 MG TAB PO SCH (05:22)
[2016-10-10] MEDS ORDERED: GUAIFENESIN/CODEINE 5ML CUP PO PRN (05:30)
[2016-10-10] MEDS ORDERED: FUROSEMIDE 40 MG INJ IV ONE (05:30)
[2016-10-10] MEDS: ALBUTEROL/IPRATROPIUM (NEB) 3 ML AMP HHN PRN ×2 (05:33→11:00)
[2016-10-10 06:53] VITALS: BP 124/60; RESP 18
[2016-10-10 07:03] VITALS: BP 102/60; RESP 18
[2016-10-10 07:06] LABS: ADD SCAN DIFF NO
[2016-10-10 07:15] LABS: ABNORMAL IP MESSAGE 1; BASOPHILS % 0.2 % (0.0-2.0); EOSINOPHILS # 0.1 10^3/ul (0.0-0.5); EOSINOPHILS % 0.9 % (0.0-7.0); HEMATOCRIT 28.8 % (42.0-52.0); HEMOGLOBIN 8.3 g/dl (14.0-18.0); LYMPHOCYTES # 0.9 10^3/ul (0.8-2.9); MEAN CORPUSCULAR HEMOGLOBIN 26.4 pg (29.0-33.0); MEAN CORPUSCULAR HGB CONC 28.8 g/dl (32.0-37.0); MEAN CORPUSCULAR VOLUME 91.7 fl (82.0-101.0); MONOCYTE # 0.8 10^3/ul (0.3-0.9); MONOCYTES % 14.2 % (0.0-11.0); NEUTROPHIL # 3.6 10^3/ul (1.6-7.5); NEUTROPHILS % 67.3 % (39.0-77.0); NUCLEATED RED BLOOD CELLS # 0.5 10^3/ul (0.0-0.0); NUCLEATED RED BLOOD CELLS% 9.6 /100WBC (0.0-0.0); PLATELET COUNT 275 10^3/UL (140-415); RED BLOOD COUNT 3.14 10^6/ul (4.70-6.10); RED CELL DISTRIBUTION WIDTH 23.9 % (11.5-14.5); WHITE BLOOD COUNT 5.3 10^3/ul (4.8-10.8)
[2016-10-10 07:38] LABS: CALCIUM 9.4 mg/dl (8.4-10.2); CREATININE 2.25 mg/dl (0.61-1.24); POTASSIUM 4.1 mmol/L (3.5-5.1)
[2016-10-10] MEDS: INSULIN ASPART [NOVOLOG] 3 ML PEN SC SCH ×2 (07:55→11:36)
[2016-10-10] MEDS: ASPIRIN 81 MG TAB PO SCH (08:59)
[2016-10-10] MEDS: ASCORBIC ACID 500 MG TAB PO SCH (09:00)
[2016-10-10] MEDS: POVIDONE IODINE 10% 28.4 GM OINT TOP SCH ×2 (09:00→14:11)
[2016-10-10] MEDS: POLYETHYLENE GLYCOL 17 GM PACKET PO SCH (09:00)
[2016-10-10] MEDS: COLLAGENASE 30 GM TUBE TOP SCH ×2 (09:00→14:12)
[2016-10-10] MEDS: APIXABAN 5 MG TABLET PO SCH (09:00)
[2016-10-10 11:30] VITALS: BP 161/70; RESP 18
[2016-10-10 12:23] VITALS: BP 130/60
[2016-10-10 12:30] VITALS: BP 130/60; RESP 20
--- NOTE | 2016-10-10 14:01 | CONS ---
Date/Time of Note Date/Time of Note DATE: 10/10/16 TIME: 14:01 Assessment/Plan Assessment/Plan Chief Complaint/Hosp Course 1. Chronic kidney disease requiring hemodialysis 2. Chronic systolic heart failure. 3. s/p hypoxic respiratory failure off vent 4. History of acute tubular necrosis. 5. Cardiomyopathy. 6. Anemia. 7. Neutropenia. 8. The patient has hypoalbuminemia. 9. History of sepsis. Problems: Additional Assessment/Plan 1. Pt will be discharged Consultation Date/Type/Reason Admit Date/Time Sep 19, 2016 at 14:51 Initial Consult Date 09/19/2016 Type of Consultation: nephrology Reason for Consultation Dr Lamar Referring Provider: THERESA RIVERA 24 HR Interval Summary Constitutional: no complaints Exam/Review of Systems Vital Signs Vitals Vital Signs Date Time Temp Pulse Resp B/P Pulse Ox O2 Delivery O2 Flow Rate FiO2 10/10/16 12:23 130/60 10/10/16 11:30 98.4 63 18 100 10/10/16 11:02 3.0 10/10/16 08:30 Nasal Cannula Intake and Output 10/09/16 10/09/16 10/10/16 15:00 23:00 07:00 Intake Total 500 ml 120 ml Output Total 3300 ml Balance -2800 ml 120 ml Exam Constitutional: alert Head: normocephalic Eyes: nl conjunctiva Results Result Diagram: 10/10/16 0648 10/10/16 0648 Results 24 hrs Laboratory Tests Test 10/09/16 17:26 10/09/16 20:57 10/10/16 06:48 10/10/16 08:28 Bedside Glucose 130 122 135 White Blood Count 5.3 Red Blood Count 3.14 L Hemoglobin 8.3 L Hematocrit 28.8 L Mean Corpuscular Volume 91.7 Mean Corpuscular Hemoglobin 26.4 L Mean Corpuscular Hemoglobin Concent 28.8 L Red Cell Distribution Width 23.9 H Platelet Count 275 Mean Platelet Volume 11.0 H Neutrophils % 67.3 Lymphocytes % 17.0 Monocytes % 14.2 H Eosinophils % 0.9 Basophils % 0.2 Nucleated Red Blood Cells % 9.6 H Neutrophils # 3.6 Lymphocytes # 0.9 Monocytes # 0.8 Eosinophils # 0.1 Basophils # 0.0 Nucleated Red Blood Cells # 0.5 H Sodium Level 138 Potassium Level 4.1 Chloride Level 101 Carbon Dioxide Level 28 Anion Gap 13 # Blood Urea Nitrogen 40 H Creatinine 2.25 H Glucose Level 124 Calcium Level 9.4 Test 10/10/16 11:32 Bedside Glucose 130 Medications Medications Current Medications Apixaban (Eliquis) 2.5 mg BID PO Last administered on 10/10/16 09:00; Admin Dose 2.5 MG; Start 09/19/16 at 21:00; Status Future hold Ascorbic Acid (Vitamin C) 500 mg DAILY PO Last administered on 10/10/16 09:00 ; Admin Dose 500 MG; Start 09/20/16 at 09:00 Aspirin (Aspirin) 81 mg DAILY PO Last administered on 10/10/16 08:59; Admin Dose 81 MG; Start 09/20/16 at 09:00 Carvedilol (Coreg) 1.5625 mg BID PO Last administered on 09/22/16 20:47; Admin Dose 1.5625 MG; Start 09/19/16 at 21:00; Status Future Hold Digoxin (Digoxin) 0.125 mg Q2D@13 PO Last administered on 10/09/16 13:36; Admin Dose 0.125 MG; Start 09/21/16 at 13:00; Status Future hold Furosemide (Lasix) 20 mg DAILY@06 IV Last administered on 10/09/16 06:14; Admin Dose 20 MG; Start 09/20/16 at 06:00 Dextrose (D50w Syringe) 25 ml Q15M PRN IV DECREASED GLUCOSE; Start 09/21/16 at 14:00 IV Flush (NS 10 ml) 10 ml PRN PRN IV IV PROTOCOL Last administered on 05:14; Admin Dose 10 ML; Start 09/22/16 at 18:30 Docusate Sodium (Colace Liquid Cup) 200 mg QHS NGT Last administered on 21:37; Admin Dose 200 MG; Start 09/24/16 at 21:00 Potassium Chloride (Potassium Chloride Pwd/Soln) 20 meq BID NGT Last administered on 10/08/16 10:05; Admin Dose 20 MEQ; Start 09/27/16 at 09:00; Status Future Hold Lorazepam (Ativan) 1 mg Q4H PRN IV AGITATION/ANXIETY Last administered on 22:04; Admin Dose 1 MG; Start 09/27/16 at 17:30 Morphine Sulfate (morphine) 2 mg Q4H PRN IV PAIN Last administered on 10/01/16 00:05; Admin Dose 2 MG; Start 09/28/16 at 11:30 Collagenase (Santyl) 1 applic DAILY TOP Last administered on 10/09/16 08:53; Admin Dose 1 APPLIC; Start 09/28/16 at 19:30 Hydralazine HCl (Apresoline) 10 mg Q8 PO Last administered on 10/09/16 13:38; Admin Dose 10 MG; Start 10/02/16 at 22:00 Diagnostic Test (Pha) (Accu-Chek) 1 ea 02 XX ; Start 10/03/16 at 02:00 Miscellaneous Information 1 ea NOTE XX ; Start 10/02/16 at 23:30 Glucose (Glutose) 15 gm Q15M PRN PO DECREASED GLUCOSE; Start 10/02/16 at 23:30 Glucose (Glutose) 22.5 gm Q15M PRN PO DECREASED GLUCOSE; Start 10/02/16 at 23:30 Dextrose (D50w Syringe) 25 ml Q15M PRN IV DECREASED GLUCOSE; Start 10/02/16 at 23:30 Dextrose (D50w Syringe) 50 ml Q15M PRN IV DECREASED GLUCOSE; Start 10/02/16 at 23:30 Glucagon (Glucagen) 1 mg Q15M PRN IM DECREASED GLUCOSE; Start 10/02/16 at 23:30 Glucose (Glutose) 15 gm Q15M PRN BUCCAL DECREASED GLUCOSE; Start 10/02/16 at 23: 30 Simethicone (Mylicon) 80 mg Q6H PRN PO DISTENSION/GAS/BLOATING Last administered on 10/03/16 17:18; Admin Dose 80 MG; Start 10/03/16 at 17:30 Polyethylene Glycol (Miralax) 8.5 gm DAILY PO Last administered on 10/10/16 09 :00; Admin Dose 8.5 GM; Start 10/04/16 at 09:00 Ondansetron HCl (Zofran Inj) 4 mg Q4H PRN IV NAUSEA AND/OR VOMITING Last administered on 10/04/16 14:36; Admin Dose 4 MG; Start 10/04/16 at 15:00 Povidone Iodine (Povidone-Iodine) 1 applic DAILY TOP Last administered on 08:52; Admin Dose 1 APPLIC; Start 10/05/16 at 12:30 Pantoprazole (Protonix Tab) 40 mg BID@06,18 PO Last administered on 10/10/16 05:22; Admin Dose 40 MG; Start 10/08/16 at 06:00 Guaifenesin/ Codeine Phosphate (Robitussin Ac Liquid Cup) 10 ml Q4H PRN PO COUGH Last administered on 10/10/16 05:21; Admin Dose 10 ML; Start 10/10/16 at 05:30 RAMONA MCCLOUD October 10, 2016 14:01
--- NOTE | 2016-10-10 15:54 | CONS ---
Date/Time of Note Date/Time of Note DATE: 10/10/16 TIME: 15:52 Consult Date/Type/Reason Admit Date/Time Sep 19, 2016 at 14:51 Initial Consult Date Type of Consultation: Pulm Ordering Provider: THERESA RIVERA Subjective No events. Being discharged today Objective Vital Signs Date Time Temp Pulse Resp B/P Pulse Ox O2 Delivery O2 Flow Rate FiO2 10/10/16 12:30 20 130/60 10/10/16 11:30 98.4 63 100 10/10/16 11:02 3.0 10/10/16 08:30 Nasal Cannula Intake and Output 10/09/16 10/09/16 10/10/16 15:00 23:00 07:00 Intake Total 500 ml 120 ml Output Total 3300 ml Balance -2800 ml 120 ml Exam CARDIAC EXAM: S1, S2. No added sounds or murmurs. CHEST: clear bilaterally, No added sounds, rales or wheezes ABDOMEN: Soft, nontender. No guarding or rebound. EXTREMITIES: No cyanosis, clubbing o edema plus Results/Medications Result Diagram: 10/10/16 0648 10/10/16 0648 Results 24 hrs Laboratory Tests Test 10/09/16 17:26 10/09/16 20:57 10/10/16 06:48 10/10/16 08:28 Bedside Glucose 130 122 135 White Blood Count 5.3 Red Blood Count 3.14 L Hemoglobin 8.3 L Hematocrit 28.8 L Mean Corpuscular Volume 91.7 Mean Corpuscular Hemoglobin 26.4 L Mean Corpuscular Hemoglobin Concent 28.8 L Red Cell Distribution Width 23.9 H Platelet Count 275 Mean Platelet Volume 11.0 H Neutrophils % 67.3 Lymphocytes % 17.0 Monocytes % 14.2 H Eosinophils % 0.9 Basophils % 0.2 Nucleated Red Blood Cells % 9.6 H Neutrophils # 3.6 Lymphocytes # 0.9 Monocytes # 0.8 Eosinophils # 0.1 Basophils # 0.0 Nucleated Red Blood Cells # 0.5 H Sodium Level 138 Potassium Level 4.1 Chloride Level 101 Carbon Dioxide Level 28 Anion Gap 13 # Blood Urea Nitrogen 40 H Creatinine 2.25 H Glucose Level 124 Calcium Level 9.4 Test 10/10/16 11:32 Bedside Glucose 130 Assessment/Plan Additional Assessment/Plan IMP: 1. Status post hypoxemic respiratory failure, recurrent hypoxemia with respiratory failure secondary to volume overload 2. Aspiration pneumonia 3. Renal failure on hemodialysis discharge planning 4. Anemia of chronic disease. No acute bleeding. RECS: 1. Asp precautions 2. OOB/PT/OT JESUS HURT MD October 10, 2016 15:54
== END 2016-10-10 15:00 | disposition hospice, home (50) | DRG 870 ==
LOC: E/R 12:24 → ICU 14:51 → TEL 10-02 11:53
PROVIDERS: ADMIT Family Medicine; ATTEND Family Medicine
PROC: 5A1955Z Respiratory Ventilation, Greater than 96 Consecutive Hours (ICD-10-PCS; 2016-09-19)
PROC: 0BH17EZ Insertion of Endotracheal Airway into Trachea, Via Natural or Artificial Opening (ICD-10-PCS; 2016-09-19)
PROC: 02HV33Z Insertion of Infusion Device into Superior Vena Cava, Percutaneous Approach (ICD-10-PCS; principal; 2016-09-22)
PROC: 5A1D60Z (ICD-10-PCS; 2016-09-22)
DX: A41.9 Sepsis, unspecified organism (principal); J69.0 Pneumonitis due to inhalation of food and vomit; J96.01 Acute respiratory failure with hypoxia; R65.21 Severe sepsis with septic shock; I50.23 Acute on chronic systolic (congestive) heart failure; N18.6 End stage renal disease; D68.4 Acquired coagulation factor deficiency; I48.0 Paroxysmal atrial fibrillation; I13.2 Hypertensive heart and chronic kidney disease with heart failure and with stage 5 chronic kidney disease, or end stage renal disease; L03.116 Cellulitis of left lower limb; B37.49 Other urogenital candidiasis; L03.115 Cellulitis of right lower limb; E83.39 Other disorders of phosphorus metabolism; K74.60 Unspecified cirrhosis of liver; D63.1 Anemia in chronic kidney disease; I25.10 Atherosclerotic heart disease of native coronary artery without angina pectoris; E11.22 Type 2 diabetes mellitus with diabetic chronic kidney disease; I25.5 Ischemic cardiomyopathy; E11.621 Type 2 diabetes mellitus with foot ulcer; L97.529 Non-pressure chronic ulcer of other part of left foot with unspecified severity; L97.519 Non-pressure chronic ulcer of other part of right foot with unspecified severity; E87.6 Hypokalemia; Z95.810 Presence of automatic (implantable) cardiac defibrillator; Z66 Do not resuscitate; Z95.1 Presence of aortocoronary bypass graft
CPT/HCPCS: 36415; 36430; 36569; 36600; 71010; 74230; 76937; 80048; 80053; 80069; 80076; 80162; 80202; 82270; 82550; 82553; 82803; 82962; 83605; 83690; 83735; 84100; 84134; 84484; 85025; 85610; 85730; 86850; 86900; 86901; 86920; 87040; 87081; 87086; 90935; 92526; 92610; 92611; 93005; 94002; 94003; 94640; 94660; 94770; 96361; 96365; 96366; 96367; 96375; 97110; 97162; 97530; J1940; C9113; J0743; J1644; J1815; J1956; J2060; J2270; J2405; J3370; J3480; J7030; J7040; J7050; J7060; P9016; P9047